=== PATIENT | female | born 1965 | race Two or more races ===

== ENCOUNTER → 2020-09-21 08:38 | Outpatient (REF) | payer MEDICAID, SELFPAY | LOC: HO.CARD 08:38 | PROVIDERS: Visit Provider Internal Medicine Cardiovascular Disease | DX: Z13.89 Encounter for screening for other disorder (principal) ==

== ENCOUNTER → 2020-09-24 09:42 | Outpatient (REF) | payer MEDICAID, SELFPAY ==
--- NOTE | 2020-09-24 | NM_ITS ---
Myocardial perfusion study Indication: Dyspnea on exertion to evaluate for myocardial ischemia Technique: The patient was brought in for a Lexiscan perfusion study on 09/24/2020. Patient performed low-level exercise and was injected 0.4 mg of Lexiscan intravenously. Within a minute of injection, 25 mCi of sestamibi was given intravenously. Images were obtained using the SPECT gamma camera interlaced with the gating device. Images were obtained in supine position. Resting perfusion study was performed on 09/25/2020. Patient was administered 25 mCi of sestamibi intravenously at rest. Images were then obtained in supine position. Images obtained with and without CT attenuation. Total 68 MGY-CM. Images were processed with the software and compared side to side in short axis, horizontal long axis and vertical long axis views. Findings: The stress perfusion study showed non attenuated images show normal uptake of radiotracer in all segments of LV myocardium. Attenuation corrected images show minimally reduced uptake in the lateral wall of the LV myocardium.. The gated study shows normal LV systolic function with calculated LVEF of greater than 70 %. LV cavity is normal in size. The gated study shows normal systolic wall thickening and contraction of segments. Resting study shows non attenuated images show normal uptake of radiotracer in all segments of LV myocardium. Gating at rest reveals normal systolic wall motion with ejection fraction at 63%. The findings are consistent with normal myocardial perfusion. NM/NM ricardo perf SPECT rest & str Impression: 1. Myocardial perfusion imaging study shows normal myocardial perfusion 2. Gated LVEF is 63% 3. Transient ischemic dilatation not present EKG is nondiagnostic for ischemia
--- NOTE | 2020-09-24 10:00 | CA_ITS ---
Acquisition Time: 2020-09-24 09:55:53 Total Exercise Time: 00:02:00 Test Indications: Dyspnea Medications: SEE H Protocol: LEXISCAN Max HR: 136 BPM 83% of Pred: 163 BPM Max BP: 108/062 mmHG Max Work Load: 1.0 METS Pharmacological stress test using Lexiscan while sitting and kicking her L foot. Pt tolerated well. Denies any anginal sx. Non-diagnostic for ischemia. Nuclear images to follow. HR up after Lexiscan pt's HR stayed above 120, reversed with Aminophyline 75 mg IV. Normotensiver esponse to test. Test reviewed with Dr. Ferrell Referred By: Vitaliy oYo Overread By: Gaurav Acevedo
== END ==
LOC: HO.CARD 09:42
PROVIDERS: Visit Provider Internal Medicine Cardiovascular Disease
DX: R06.09 Other forms of dyspnea (principal)
CPT/HCPCS: 78452; 93017; A9500; J0280; J2785

== ENCOUNTER 2020-10-12 08:00 | Outpatient (RCR) | payer MEDICAID, SELFPAY | END 2020-11-28 09:59 | disposition other institution (70) | LOC: HO.PT 08:00 | PROVIDERS: PCP Internal Medicine; Visit Provider Internal Medicine | DX: M54.42 Lumbago with sciatica, left side (principal) | CPT/HCPCS: 97110; 97162 ==

== ENCOUNTER 2020-10-15 08:11 | Outpatient (REF) | payer MEDICAID, SELFPAY | END 2020-10-15 08:12 | disposition home or self-care (01) | LOC: HO.LAB 08:11 | PROVIDERS: PCP Internal Medicine; Visit Provider Internal Medicine | DX: Z20.828 Contact with and (suspected) exposure to other viral communicable diseases (principal) | CPT/HCPCS: C9803; U0003 ==

== ENCOUNTER → 2020-10-18 09:51 | Outpatient (BNVA) | payer MEDICAID, SELFPAY | PROVIDERS: PCP Internal Medicine; Visit Provider Nurse Practitioner | DX: Z76.89 Persons encountering health services in other specified circumstances (principal) ==

== ENCOUNTER 2020-10-25 06:57 | Outpatient (REF) | payer MEDICAID, SELFPAY | END 2020-10-25 06:58 | disposition home or self-care (01) | LOC: HO.LAB 06:57 | PROVIDERS: PCP Internal Medicine; Visit Provider Internal Medicine | DX: Z20.828 Contact with and (suspected) exposure to other viral communicable diseases (principal) | CPT/HCPCS: C9803; U0003 ==

== ENCOUNTER 2020-10-31 12:57 | Outpatient (REF) | payer MEDICAID, SELFPAY ==
--- NOTE | 2020-10-31 13:01 | MM_ITS ---
EXAMINATION: MM SCREENING DIGITAL BREAST TOMOSYNTHESIS, BILATERAL CLINICAL INFORMATION: Screening. Asymptomatic. Family history breast cancer, sister. Personal history right breast cancer with lumpectomy and radiation 2009. COMPARISON: Mammography: 09/06/2019, 08/30/2018, 08/05/2017 TECHNIQUE: Digital breast tomosynthesis is performed in both the craniocaudal and mediolateral oblique views along with computer-aided detection (CAD). Synthesized 2D images are generated from the tomosynthesis. Additional left MLO view is provided. FINDINGS: The breasts are heterogeneously dense, which may obscure small masses (ACR BI-RADS breast composition Category c). Parenchymal pattern is similar to prior exams. There is no developing density or interval mass or architectural abnormality. Post therapy changes again noted on the right with reduced breast size and old scarring and surgical clips. There are no significant changes in either breast. MM/MM tomosynthesis screening BI IMPRESSION: No mammographic evidence of malignancy. Post therapy changes right breast similar to prior studies. ASSESSMENT: BI-RADS 2: Benign RECOMMENDATION: Routine annual mammography screening. This patient's information was entered into a reminder system with a target due date for their next mammogram.
== END 2020-10-31 12:58 | disposition home or self-care (01) ==
LOC: HO.MAMMO 12:57
PROVIDERS: PCP Internal Medicine; Visit Provider Internal Medicine
DX: Z12.31 Encounter for screening mammogram for malignant neoplasm of breast (principal)
CPT/HCPCS: 77063; 77067

== ENCOUNTER → 2020-11-01 13:39 | Outpatient (BNVA) | payer MEDICAID, SELFPAY | PROVIDERS: PCP Internal Medicine; Visit Provider Nurse Practitioner | DX: Z76.89 Persons encountering health services in other specified circumstances (principal) ==

== ENCOUNTER 2020-11-07 07:02 | Outpatient (REF) | payer MEDICAID, SELFPAY | END 2020-11-07 07:03 | disposition home or self-care (01) | LOC: HO.LAB 07:02 | PROVIDERS: Visit Provider Internal Medicine | DX: Z20.828 Contact with and (suspected) exposure to other viral communicable diseases (principal) | CPT/HCPCS: 36415; C9803; U0003 ==

== ENCOUNTER → 2020-11-08 14:00 | Outpatient (BNVA) | payer MEDICAID, SELFPAY | PROVIDERS: PCP Internal Medicine; Visit Provider Student in an Organized Health Care Education/Training Program | DX: Z76.89 Persons encountering health services in other specified circumstances (principal) ==

== ENCOUNTER → 2020-11-15 14:32 | Outpatient (REF) | payer MEDICAID, SELFPAY ==
--- NOTE | 2020-11-15 15:00 | CA_ITS ---
Transthoracic Echocardiogram Patient (Last, First, Middle): Diana Myles, Gender: Female Date of : 1965 Age: 55 Procedure Date: 11/15/2020 Procedure Type: Transthoracic Echocardiogram Location: OP Height: 157.48 cm Weight: 54.43 kg BSA: 1.54 m2 Heart Rate: bpm BP: 130 / 70 mmHg Occupational Therapy Professor: GERMAN Bridges MD: Vitaliy Yoo MD Heating And Ventilating Tender: Brandon Parkinson MD Symptoms: I42.9 CARDIOMYOPATHY Study Quality: Fair/Contrast ECG Rhythm: Sinus Conclusions: - Low normal LV systolic function Findings Procedure Information Contrast agent, definity, is being given per protocol without apparent complications. Left Ventricle Normal left ventricular cavity size. There is normal left ventricular wall thickness. The left ventricular systolic function is low normal. The visually estimated ejection fraction is between 50-55%. Pericardium/Pleural There is no evidence of pericardial effusion. Prior Study Comparison No prior study available for comparison. Measurements 2D Linear Measurements IVSd: 0.72 0.6-0.9/0.6-1.0 cm LVIDd: 4.03 3.9-5.3/4.2-5.9 cm LVIDd Index: 2.62 2.4-3.2/2.2-3.1 cm/m2 LVIDs: 2.95 2.0-3.6 cm LVPWd: 0.72 0.7-1.1 cm LV Mass: 102.52 67-162/88-224 g LV Mass Index: 66.57 43-95/49-115 g/m2 2D Systolic Function EF 4C: 45.00 >55% EF 2C: 55.90 >55% EF BiP: 51.20 >55% Updated in Other Vendor System with Status of Final Brandon Parkinson MD electronically signed on 11/16/2020 12:47:18 PM with status of Final
== END ==
LOC: HO.CARD 14:32
PROVIDERS: Visit Provider Internal Medicine Cardiovascular Disease
DX: I42.9 Cardiomyopathy, unspecified (principal)
CPT/HCPCS: 93308; Q9957

== ENCOUNTER → 2020-12-13 13:16 | Outpatient (BNVA) | payer MEDICAID, SELFPAY | PROVIDERS: PCP Internal Medicine; Visit Provider Nurse Practitioner ==

== ENCOUNTER 2020-12-21 14:17 | Outpatient (REF) | payer MEDICAID, SELFPAY | END 2020-12-21 14:18 | disposition home or self-care (01) | LOC: HO.LAB 14:17 | PROVIDERS: PCP Internal Medicine; Visit Provider Internal Medicine | DX: Z20.822 Contact with and (suspected) exposure to COVID-19 (principal) | CPT/HCPCS: 36415; C9803; U0003; U0005 ==

== ENCOUNTER 2020-12-22 09:44 | Emergency (ER) | payer MEDICAID, SELFPAY ==
[2020-12-22 09:46] VITALS: BP 115/54; PULSE 90; RESP 18; TEMP 36.7; O2SAT 99; BMI 21.9
--- NOTE | 2020-12-22 10:34 | ED_ITS ---
HPI - General Adult General Chief complaint: Headache Stated complaint: HEAD ACHE NECK PAIN Time Seen by Provider: 12/22/20 10:31 Source: patient Mode of arrival: ambulatory Limitations: no limitations History of Present Illness HPI narrative: This is a pleasant primarily Citizen Of [place]-speaking 55-year-old female with past medical history that is significant for osteoarthritis of the right hand and fibromyalgia with also history of breast mass status post lumpectomy on the right side additionally Cesarian section, colonoscopy and shoulder surgery she presents ambulatory with complaint of left-sided neck pain for past 5 days onset after awakening feeling sore on the side and has persisted worsening with position now radiates up to the head and ear. Pain okay with immobilization however movement hurts. Denies any fever or chills. No rash. No chest pain. No radiation to the arms. No chest pain/ back pain. No GI symptoms. Related Data Home Medications Medication Instructions Recorded Confirmed albuterol sulfate 90 mcg/actuation 2 puff INHALATION Q6H PRN 11/08/20 12/25/20 aerosol inhaler buspirone 15 mg tablet 15 mg PO TID 11/08/20 12/25/20 cholecalciferol (vitamin D3) 50 50 mcg PO DAILY 11/08/20 12/25/20 mcg (2,000 unit) capsule clonazepam 1 mg tablet 1 mg PO BEDTIME 11/08/20 12/25/20 olanzapine 20 mg tablet 20 mg PO BEDTIME 11/08/20 12/25/20 prazosin 2 mg capsule 2 mg PO BEDTIME 11/08/20 12/25/20 sertraline 100 mg tablet 100 mg PO DAILY 11/08/20 12/25/20 Previous Rx's Medication Instructions Recorded dicyclomine 20 mg tablet 20 mg PO QID 30 Days #120 tab 10/18/20 simethicone 180 mg capsule 180 mg PO QID 30 Days #120 cap 10/18/20 pregabalin 150 mg capsule 150 mg PO BID #60 cap 11/08/20 imipramine HCl 25 mg tablet 25 mg PO BEDTIME 30 Days #30 tab 12/13/20 omeprazole 20 mg capsule,delayed 20 mg PO BID #30 cap 12/13/20 release sennosides 8.6 mg tablet 17.2 mg PO BEDTIME #60 tab 12/13/20 lidocaine 1 patch TOPICAL Q24H PRN #15 ea 12/22/20 naproxen 500 mg PO BID PRN #14 tab 12/22/20 Allergies Allergy/AdvReac Type Severity Reaction Status Date / Time codeine [CODEINE] Allergy Intermediate DIZZY/NAUSEA, Verified 12/13/20 13:18 nausea/vomiting escitalopram [From LEXAPRO] Allergy Intermediate ? NAUSEA Verified 12/13/20 13:18 meperidine [MEPERIDINE] Allergy Intermediate NAUSEA Verified 12/13/20 13:18 morphine [MORPHINE] Allergy Intermediate PALPITATIONS, Verified 12/13/20 13:18 palpitation oxycodone [OXYCODONE] Allergy Intermediate PALPATATIONS, Verified 12/13/20 13:18 palpitations tramadol Allergy Unknown dizziness, Verified 12/13/20 13:18 nausea From ULTRAM AdvReac Intermediate DIZZY/NAUSE Uncoded 07/19/20 16:54 A Review of Systems Review of Systems: Constitutional: No Weight loss, No Fever, No Chills, No Night Sweats, No Fatigue, No Malaise ENT/Mouth: No Hearing loss, No Ear Pain, No Nasal Congestion, No Sinus Pain, No Hoarseness, No sore throat, No Rhinorrhea, No Swallowing Difficulty Eyes: No Eye Pain, No Swelling, No Redness, No Foreign Body, No Discharge, No Vision Changes Cardiovascular: No Chest Pain, No SOB, No Dyspnea on Exertion, No Orthopnea, No Edema, No Palpitations Respiratory: No Cough, No Sputum, No Wheezing, No Smoke Exposure, No Dyspnea Gastrointestinal: No Nausea, No Vomiting, No Diarrhea, No Constipation, No abdominal Pain, No Hematochezia, No Melena Genitourinary: No Dysuria, No Urinary Frequency, No Hematuria, No Urinary Incontinence, No Urgency, No Flank Pain, No Urinary Flow Changes, No Hesitancy Musculoskeletal: No joint pain, No Myalgias, No Joint Swelling, left-sided neck pain as noted per HPI Skin: No Skin Lesions, No rash Neuro: No Weakness, No Numbness, No Paresthesias, No Loss of Consciousness, No Dizziness, No Headache Psych: No Social Issues Heme/Lymph: No Bruising, No Bleeding,No Lymphadenopathy Endocrine: No Polyuria, No Polydipsia, No Temperature Intolerance Yes all other systems are reviewed and are negative PMFSH Past Medical History Medical History Fibromyalgia Periodontal disease Primary osteoarthritis of right hand Surgical History History of lumpectomy Hx of section Hx of colonoscopy Hx of shoulder surgery Family History Family History Mother HTN (hypertension) Sister Breast cancer Bone cancer Colon polyps Sister Osteoporosis Hypercholesteremia Colon polyps Social History Social History (Updated 12/25/20 @ 13:18 by Vero Marie) Alcohol intake: never Smoking Status: Never smoker Tobacco Type: Cigarette Years Smoked: 3 Physical Exam Vital Signs: Vital Signs: Last Vital Signs Temp 98.1 F 12/22/20 09:46 Pulse 90 12/22/20 09:46 Resp 18 12/22/20 09:46 BP 115/54 L 12/22/20 09:46 Pulse Ox 99 12/22/20 09:46 Body Mass Index 21.9 Reviewed Const: General: cooperative and healthy appearing; No acute distress or intoxicated appearing Nutritional Appearance: average body habitus Orientation/consciousness: patient oriented x3 HENMT: Head: Yes normal to inspection Ears: hearing grossly normal bilaterally Eyes: General: appearance normal, both eyes and all related structures Visual Norris: normal visual norris by confrontation Neck: Neck: Yes normal visual inspection, No no meningeal signs, Yes trachea midline, Yes supple, No lymphadenopathy, No positive Brudzinski's sign, No positive Kernig's sign, Yes torticollis (Left side, reproducible to palpation diffusely over the cervical region.), No tracheal deviation, No tracheostomy present and Yes no JVD Thyroid: Thyroid normal Chest: Chest palpation & inspection: normal inspection of the chest Resp: Effort & Inspection: normal respiratory effort Auscultation: clear to auscultation bilaterally Cardio: Jugular venous distension: no JVD Rhythm: regular rhythm Heart sounds: S1 normal heart sound present and S2 normal heart sound present GI: Inspection: Yes normal to inspection Palpation (GI): Firmness to palp ation present (GI) Percussion: Yes normal to percussion Auscultation: normal bowel sounds : General: Yes no CVA tenderness Back/Spine/Pelvis: Back: no CVA tenderness Skin: General skin exam: no rashes or lesions noted Neuro: General: patient oriented x3 and No no meningeal signs Extrem: General: Yes normal to inspection Medical Decision Making MDM Narrative Medical decision making narrative: AP exam consistent with left-sided torticollis exam otherwise is without focal neurological findings. No midline or step-off. Will discharge home with short course lidocaine and naproxen she is already on Flexeril 5 mg daily advised okay take 10 mg at night only for the next 5 days. Will do warm compresses. Could return follow-up instructions provided. Feels comfortable plan. Stable for discharge. Discharge Plan Discharge Clinical Impression: Acute torticollis Patient Disposition: Home, Self-Care Instructions: Spasmodic Torticollis (ED) Additional Instructions: Warm compresses Gentle stretching Take medication as prescribed Follow-up as instructed Return if any concerns or worsening symptoms Thank you [employer]res[place] calientes Estiramiento suave [place] los medicamentos seg?n lo prescrito Seguimiento seg?n las instrucciones Regrese si tiene alguna inquietud o si los s?ntomas empeoran [place] Prescriptions: New naproxen 500 mg tablet 500 mg PO BID PRN (Reason: pain) Qty: 14 RF: 0 lidocaine 4 % adhesive patch,medicated 1 patch topical Q24H PRN (Reason: pain) Qty: 15 RF: 0 No Action sennosides [senna] 8.6 mg tablet 17.2 mg PO BEDTIME Qty: 60 RF: 6 imipramine HCl 25 mg tablet 25 mg PO BEDTIME 30 Days Qty: 30 RF: 3 omeprazole 20 mg capsule,delayed release(DR/EC) 20 mg PO BID Qty: 30 RF: 3 buspirone 15 mg tablet 15 mg PO TID RF: 0 sertraline 100 mg tablet 100 mg PO DAILY RF: 0 olanzapine 20 mg tablet 20 mg PO BEDTIME RF: 0 cholecalciferol (vitamin D3) 50 mcg (2,000 unit) capsule 50 mcg PO DAILY RF: 0 clonazepam 1 mg tablet 1 mg PO BEDTIME RF: 0 prazosin 2 mg capsule 2 mg PO BEDTIME RF: 0 albuterol sulfate 90 mcg/actuation HFA aerosol inhaler 2 puff inhalation Q6H PRN (Reason: Wheezing) RF: 0 pregabalin [Lyrica] 150 mg capsule 150 mg PO BID Qty: 60 RF: 5 dicyclomine 20 mg tablet 20 mg PO QID 30 Days Qty: 120 RF: 3 simethicone 180 mg capsule 180 mg PO QID 30 Days Qty: 120 RF: 3 Referrals: Umm Coley MD [Primary Care Provider] - 1 week Interventions: ED Discharge Assessment Last Done: 12/22/20 11:37 Discharge Date/Time: 12/22/20 11:38
[2020-12-22] MEDS: Lidocaine 4 % Patch ADH..PATCH 1 PATCH TRANSDERMA (10:40)
[2020-12-22] MEDS: Ketorolac Tromethamine 30 MG/ML VIAL IM (10:40)
== END 2020-12-22 11:38 | disposition home or self-care (01) ==
PROVIDERS: Emergency Provider Emergency Medicine; PCP Internal Medicine
DX: G24.3 Spasmodic torticollis (principal)
CPT/HCPCS: 96372; 99283; 99284; J1885

== ENCOUNTER 2020-12-26 07:55 | Outpatient (REF) | payer MEDICAID, SELFPAY ==
--- NOTE | ~2020-12-26 | US_ITS ---
EXAMINATION: US ABDOMEN COMPLETE CLINICAL INFORMATION: Right upper quadrant pain. COMPARISON: CT of the abdomen and pelvis May 2016 and abdominal ultrasound August 2015 TECHNIQUE: Real-time imaging of the abdominal viscera. FINDINGS: PANCREAS: Normal. ABDOMINAL AORTA: The proximal, mid, and distal segments are normal in caliber. INFERIOR VENA CAVA: Visualized portions are normal. LIVER: Liver echotexture is increased. The liver is normal in size. The liver contour is normal. No focal hepatic lesion. There is no intrahepatic biliary duct dilatation seen. GALLBLADDER: Normal. The gallbladder is physiologically distended without evidence of stones, sludge, polyps, wall thickening or pericholecystic fluid. COMMON BILE DUCT: Normal in caliber measuring 0.3 cm in diameter. RIGHT KIDNEY: Normal. No hydronephrosis. No renal calculi or focal parenchymal lesions. The kidney measures 10.2 cm in maximum dimension. LEFT KIDNEY: Normal. No hydronephrosis. No renal calculi or focal parenchymal lesions. The kidney measures 9.1 cm in maximum dimension. SPLEEN: Normal. The spleen measures 9.4 cm in maximum dimension. FREE FLUID: None. US/US abdomen complete IMPRESSION: Echogenic liver probably representing fatty infiltration.
== END 2020-12-26 07:56 | disposition home or self-care (01) ==
LOC: HO.US 07:55
PROVIDERS: PCP Internal Medicine; Visit Provider Nurse Practitioner
DX: R10.11 Right upper quadrant pain (principal)
CPT/HCPCS: 76700

== ENCOUNTER → 2021-01-14 09:40 | Outpatient (BNVA) | payer MEDICAID, SELFPAY | PROVIDERS: PCP Internal Medicine; Visit Provider Nurse Practitioner | DX: K21.9 Gastro-esophageal reflux disease without esophagitis (principal); K58.2 Mixed irritable bowel syndrome; R10.11 Right upper quadrant pain; R14.0 Abdominal distension (gaseous) | CPT/HCPCS: 99212; Q3014 ==

== ENCOUNTER 2021-01-23 09:01 | Outpatient (REF) | payer MEDICAID, SELFPAY ==
--- NOTE | ~2021-01-23 | XR_ITS ---
EXAMINATION: XR CHEST CLINICAL INFORMATION: Dyspnea COMPARISON: Previous chest x-ray November 2019 TECHNIQUE: 2 views of the chest were obtained. FINDINGS: The cardiac and mediastinal contours are normal. The lungs are clear. There is no pleural effusion or pneumothorax. There are surgical clips in the right breast and axilla. Bony structures are unremarkable. XR/XR chest 2V IMPRESSION: No evidence for acute disease in the chest.
== END 2021-01-23 09:02 | disposition home or self-care (01) ==
LOC: HO.XRAY 09:01
PROVIDERS: PCP Internal Medicine; Visit Provider Internal Medicine Pulmonary Disease
DX: R06.00 Dyspnea, unspecified (principal); Z91.09 Other allergy status, other than to drugs and biological substances; Z92.3 Personal history of irradiation
CPT/HCPCS: 71046; 99202

== ENCOUNTER 2021-01-30 08:54 | Outpatient (REF) | payer MEDICAID, SELFPAY ==
--- NOTE | ~2021-01-30 | CT_ITS ---
EXAMINATION: CT CHEST WITHOUT CONTRAST CLINICAL INFORMATION: History of radiation COMPARISON: Previous chest CT October 2009 and chest x-rays most recent 01/23/2021 TECHNIQUE: Multidetector volumetric CT imaging of the chest was done. Axial MIP volume rendering provided. Sagittal and coronal reformatted images were obtained. This CT examination was performed using dose optimization techniques as appropriate, variously including the following: *Automated exposure control *Adjustment of mA and/or kV according to patient size (this includes techniques or standardized protocols for targeted exams where dose is matched to indication/reason for exam; i.e. extremities or head) *Use of iterative reconstruction technique DLP: 169 mGy-cm FINDINGS: LUNGS: There is a small 2 mm peripheral right upper lobe nodule axial image 95 series or. The lungs are otherwise clear. This is not definitely identified on 2009 exam however only 2.5 mm thickness slices are available. This possible this is seen on image 27. No evidence of interstitial lung disease, emphysema or bronchiectasis is seen. MEDIASTINUM: There is a small right subcarinal calcification probably representing a small calcified lymph node. This is unchanged. No enlarged lymph nodes are seen. The mediastinum is otherwise normal. PLEURA: There is no pleural effusion. No pleural mass or thickening. AXILLA: There are surgical clips in the right axilla and inferior medial right breast. No chest wall mass or enlarged axillary lymph nodes are seen. UPPER ABDOMEN: There are small calcifications in the spleen probably related to old granulomatous disease. OSSEOUS STRUCTURES: Unremarkable. CT/CT chest wo con IMPRESSION: Small 2 mm right upper lobe nodule. Evidence of old granulomatous disease with calcified right subcarinal lymph node and small calcifications in the spleen. Postsurgical changes to the right breast and axilla.
--- NOTE | 2021-01-30 09:50 | PFT_ITS ---
FLOWS: FEV1 of 97% of predicted at 2.33 L. FVC 88% of predicted at 2.68 L. FEV1 to FVC ratio of 0.87. No bronchodilator response. LUNG VOLUMES: Total lung capacity 84% of predicted at 4.03 L. Residual volume 71% of predicted at 1.33 L. Slow vital capacity 93% of predicted at 2.70 L. Expiratory reserve volume 94% of predicted at 0.77 L. Diffusion capacity is mildly decreased. IMPRESSION: No obstructive or restrictive ventilatory defect. No bronchodilator response. An isolated defect in diffusion capacity suggests an underlying pulmonary parenchymal or vascular disease. Clinical correlation is advised. MD GREG Canseco/MODL / [id number]
== END 2021-01-30 08:55 | disposition home or self-care (01) ==
LOC: HO.RESP 08:54
PROVIDERS: PCP Internal Medicine; Visit Provider Internal Medicine Pulmonary Disease
DX: R06.00 Dyspnea, unspecified (principal); Z92.3 Personal history of irradiation
CPT/HCPCS: 71250; 94060; 94727; 94729

== ENCOUNTER 2021-01-30 08:56 | Outpatient (REF) | payer MEDICAID, SELFPAY | END 2021-01-30 08:57 | disposition home or self-care (01) | LOC: HO.CT 08:56 | PROVIDERS: PCP Internal Medicine; Visit Provider Internal Medicine Pulmonary Disease | DX: Z13.89 Encounter for screening for other disorder (principal) ==

== ENCOUNTER → 2021-02-07 09:07 | Outpatient (BNVA) | payer MEDICAID, SELFPAY | PROVIDERS: PCP Internal Medicine; Visit Provider Internal Medicine Pulmonary Disease | DX: R06.00 Dyspnea, unspecified (principal); J70.1 Chronic and other pulmonary manifestations due to radiation; Z92.3 Personal history of irradiation | CPT/HCPCS: 99212 ==

== ENCOUNTER 2021-02-09 08:19 | Emergency (ER) | payer MEDICAID, SELFPAY ==
--- NOTE | ~2021-02-09 | CT_ITS ---
EXAMINATION: CT HEAD WITHOUT CONTRAST CT CERVICAL SPINE WITHOUT CONTRAST CLINICAL INFORMATION: Reason for Exam Fall with LOC, headache, rule out fracture, bleed COMPARISON: CT of the head done on 11/06/2019 and 11/23/2019. CT of the cervical spine done on 11/06/2019. TECHNIQUE: Imaging was performed from the skull base to vertex without intravenous administration of contrast. In addition, helical noncontrast CT imaging was acquired through the cervical spine and source images were reviewed along with axial reconstructions and sagittal and coronal MPRs. This CT examination was performed using dose optimization techniques as appropriate, variously including the following: *Automated exposure control. *Adjustment of mA and/or kV according to patient size (this includes techniques or standardized protocols for targeted exams where dose is matched to indication/reason for exam; i.e. extremities or head). *Use of iterative reconstruction technique. Total exam dose-length product 890.0 mGy-cm FINDINGS: HEAD: No intracranial mass, hemorrhage, or midline shift is visualized. The ventricles and sulci are age-appropriate. No extra-axial collections are identified. The paranasal sinuses and mastoid air cells are well aerated. No significant change since most recent prior study dated 11/23/2019. CERVICAL SPINE: Loss of normal cervical lordosis is present which could be positional. There is no evidence of acute cervical spine fracture. Vertebral bodies remain normal in height, intervertebral disc spaces are preserved, and alignment is anatomic. No prevertebral or paravertebral soft tissue abnormality is identified. Limited assessment of the lung apices is unremarkable. CT/CT cervical spine wo con IMPRESSION: 1. No acute intracranial pathology. 2. No CT evidence of acute cervical spine fracture or traumatic subluxation.
--- NOTE | 2021-02-09 09:06 | ED.GENADULT ---
HPI - General Adult General Chief complaint: Fall Stated complaint: fall Time Seen by Provider: 02/09/21 08:32 Source: patient Mode of arrival: ambulatory Limitations: no limitations History of Present Illness HPI narrative: 56-year-old female who presents emergency department for evaluation of headache. Patient states that on January 31, 2021 she walked into her kitchen and did not feel well. She then walked back to her room and on the way to her bedroom she felt lightheaded and then lost consciousness. She states that she fell forward and struck her head on the floor and struck her right knee on the floor as well. She is uncertain how long she lost consciousness for but when she woke up, she did develop a black eye to her right eye and a bruise to her right knee. She states since the fall she has had a constant headache. She describes the headache as a constant, pressure-like sensation throughout her entire head, associated with weakness, dizziness and nausea. She states that she has been taking Tylenol with no change in her headache. She is also complaining of neck pain. She states that the dizziness is worse with position change in the dizziness as a room spinning off balance like sensation. Patient states that she falls frequently. She denied fever, chills, chest pain, shortness of breath, cough, abdominal pain, extremity weakness or loss of bowel or bladder control. Patient states that she had a COVID-19 infection in October of 2020 and she completed her 2nd dose of the med during a vaccine on 02/06/2021. Related Data Home Medications Medication Instructions Recorded Confirmed albuterol sulfate 90 mcg/actuation 2 puff INHALATION Q6H PRN 11/08/20 12/25/20 aerosol inhaler buspirone 15 mg tablet 15 mg PO TID 11/08/20 12/25/20 cholecalciferol (vitamin D3) 50 50 mcg PO DAILY 11/08/20 12/25/20 mcg (2,000 unit) capsule clonazepam 1 mg tablet 1 mg PO BEDTIME 11/08/20 12/25/20 olanzapine 20 mg tablet 20 mg PO BEDTIME 11/08/20 12/25/20 prazosin 2 mg capsule 2 mg PO BEDTIME 11/08/20 12/25/20 sertraline 100 mg tablet 100 mg PO DAILY 11/08/20 12/25/20 Previous Rx's Medication Instructions Recorded pregabalin 150 mg capsule 150 mg PO BID #60 cap 11/08/20 omeprazole 20 mg capsule,delayed 20 mg PO BID #30 cap 12/13/20 release sennosides 8.6 mg tablet 17.2 mg PO BEDTIME #60 tab 12/13/20 lidocaine 1 patch TOPICAL Q24H PRN #15 ea 12/22/20 naproxen 500 mg PO BID PRN #14 tab 12/22/20 dicyclomine 20 mg tablet 40 mg PO QID 30 Days #240 tab 01/14/21 metronidazole 500 mg tablet 500 mg PO TID 10 Days #30 tab 01/14/21 simethicone 180 mg capsule 180 mg PO QID 30 Days #120 cap 01/14/21 cyclobenzaprine 10 mg PO TID PRN #20 tab 02/09/21 Allergies Allergy/AdvReac Type Severity Reaction Status Date / Time codeine [CODEINE] Allergy Intermediate DIZZY/NAUSEA, Verified 02/07/21 09:15 nausea/vomiting escitalopram [From LEXAPRO] Allergy Intermediate ? NAUSEA Verified 02/07/21 09:15 meperidine [MEPERIDINE] Allergy Intermediate NAUSEA Verified 02/07/21 09:15 morphine [MORPHINE] Allergy Intermediate PALPITATIONS, Verified 02/07/21 09:15 palpitation oxycodone [OXYCODONE] Allergy Intermediate PALPATATIONS, Verified 02/07/21 09:15 palpitations tramadol Allergy Unknown dizziness, Verified 02/07/21 09:15 nausea Review of Systems Review of Systems: Yes all other systems are reviewed and are negative PMFSH Past Medical History Medical History (Updated 02/09/21 @ 10:54 by Demond Queen MD) Anxiety Fibromyalgia Periodontal disease Primary osteoarthritis of right hand Surgical History History of lumpectomy Hx of section Hx of colonoscopy Hx of shoulder surgery Family History Family History Mother HTN (hypertension) Sister Breast cancer Bone cancer Colon polyps Sister Osteoporosis Hypercholesteremia Colon polyps Social History Social History Alcohol intake: never Smoking Status: Never smoker Years Smoked: 3 Advance Directives: No Advance Directives Information Provided: No Physical Exam Vital Signs: Vital Signs: Last Vital Signs Temp 98 F 02/09/21 10:44 Pulse 79 02/09/21 10:44 Resp 18 02/09/21 10:44 BP 115/66 02/09/21 10:44 Pulse Ox 98 02/09/21 10:44 Body Mass Index 22.4 Const: General: cooperative and healthy appearing Orientation/consciousness: oriented to person and oriented to place Limitations: no limitations HENMT: Head: Yes normal to inspection, Yes normocephalic and Yes atraumatic (Diffuse tenderness with palpation of her scalp, no hematomas) Ears: external ears normal General nose exam: Normal external nose present Face and sinus: Yes normal facial exam Mouth: Normal oral and palatal mucosa present Throat: Yes posterior oropharynx normal Eyes: Periorbital: periorbital findings normal Eyelids: Yes eyelids normal Conjunctivae: conjunctivae normal Sclerae: sclerae normal Corneas: corneas normal Pupils: Equal, round and reactive pupils present Direct Ophthalmoscopy: normal light reflex Neck: Other: C-spine tenderness Neck: Yes full ROM, Yes no lymphadenopathy, Yes no meningeal signs, Yes trachea midline and Yes supple Chest: Chest palpation & inspection: normal inspection of the chest and normal palpation of entire chest wall Resp: Effort & Inspection: normal respiratory effort and able to speak in complete sentences Auscultation: clear to auscultation bilaterally Cardio: Rate: regular rate Rhythm: regular rhythm Heart sounds: S1 normal heart sound present, S2 normal heart sound present and no murmurs GI: Inspection: Yes normal to inspection Palpation (GI): Soft to palpation, nontender, no guarding, not rigid and No hepatosplenomegaly present : General: Yes no CVA tenderness Back/Spine/Pelvis: Back: no CVA tenderness Cervical Spine: normal cervical lordosis Thoracic/Lumbar Spine: thoracic and lumbar spine normal to inspection Skin: Lesions: no lesions Rashes: no rashes Wounds: no wounds Neuro: General: oriented to person, oriented to place and no meningeal signs Cranial nerves: Yes CN's II-XII intact bilaterally and Yes Equal, round and reactive pupils present Cognition (Neuro): normal cognition Motor exam (neuro): 5/5 motor strength present throughout Extrem: General: Yes normal to inspection and Yes full ROM Psych: Appearance: well kempt Mental Status: mental status grossly normal Speech and movement: Normal speech and movement present Affect: normal affect Attitude: cooperative Thought process: Normal thought process present Thought content: Normal thought content present Course Course Course Narrative: 56-year-old female who presents emergency department for evaluation of a constant headache and neck pain after a fall that occurred on 01/31/2021. Examination did reveal tenderness with palpation of her scalp as well as tenderness with palpation of her C-spine otherwise her exam was unremarkable. I did order a CT scan of the patient's head and neck to rule out fracture and bleed as the cause for symptoms. 1050: The patient's CT scan of the head and cervical spine revealed no acute fracture or bleed. Patient's symptoms are consistent with a postconcussion syndrome. The patient was advised to take Tylenol and ibuprofen for pain. She was given a prescription for Flexeril (cyclobenzaprine) for neck pain and spasm. She was given verbal and printed instructions and discharged home. Discharge Plan Discharge Clinical Impression: Closed head injury with loss of consciousness of unknown duration, Injury of neck, Fall Patient Disposition: Home, Self-Care Instructions: Cervical Sprain (ED), Post Concussion Syndrome (ED) Additional Instructions: The CT scan of your head and neck revealed no fracture or bleed which is reassuring. The symptoms that your experiencing are caused by your head injury, this is called postconcussion syndrome. The symptoms can sometimes last weeks to months after a head injury were you have lost consciousness. Take ibuprofen 200 mg pills, 3 pills every 6 hours as needed for pain. Take Tylenol (acetaminophen) 500 mg pills, 2 pills every 6 hours as needed for pain. Take Flexeril (cyclobenzaprine) 10 mg pills, 1 pill every 6 hours as needed for pain or spasm of your head and neck. Follow-up with your doctor in 2 days. Please return to the emergency department if your symptoms get worse or if you develop any symptoms that are concerning to you. Prescriptions: New cyclobenzaprine 10 mg tablet 10 mg PO TID PRN (Reason: muscle pain or spasm) Qty: 20 RF: 0 No Action naproxen 500 mg tablet 500 mg PO BID PRN (Reason: pain) Qty: 14 RF: 0 lidocaine 4 % adhesive patch,medicated 1 patch topical Q24H PRN (Reason: pain) Qty: 15 RF: 0 sennosides [senna] 8.6 mg tablet 17.2 mg PO BEDTIME Qty: 60 RF: 6 omeprazole 20 mg capsule,delayed release(DR/EC) 20 mg PO BID Qty: 30 RF: 3 buspirone 15 mg tablet 15 mg PO TID RF: 0 sertraline 100 mg tablet 100 mg PO DAILY RF: 0 olanzapine 20 mg tablet 20 mg PO BEDTIME RF: 0 cholecalciferol (vitamin D3) 50 mcg (2,000 unit) capsule 50 mcg PO DAILY RF: 0 clonazepam 1 mg tablet 1 mg PO BEDTIME RF: 0 prazosin 2 mg capsule 2 mg PO BEDTIME RF: 0 albuterol sulfate 90 mcg/actuation HFA aerosol inhaler 2 puff inhalation Q6H PRN (Reason: Wheezing) RF: 0 pregabalin [Lyrica] 150 mg capsule 150 mg PO BID Qty: 60 RF: 5 dicyclomine 20 mg tablet 40 mg PO QID 30 Days Qty: 240 RF: 3 simethicone 180 mg capsule 180 mg PO QID 30 Days Qty: 120 RF: 6 metronidazole [Flagyl] 500 mg tablet 500 mg PO TID 10 Days Qty: 30 RF: 0
[2021-02-09 10:44] VITALS: BP 115/66; PULSE 79; RESP 18; TEMP 36.6; O2SAT 98; BMI 22.4
== END 2021-02-09 11:39 | disposition home or self-care (01) ==
PROVIDERS: Emergency Provider Emergency Medicine Emergency Medical Services; PCP Internal Medicine
DX: R51.9 Headache, unspecified (principal); S06.0X9A Concussion with loss of consciousness of unspecified duration, initial encounter; S13.4XXA Sprain of ligaments of cervical spine, initial encounter; W01.198A Fall on same level from slipping, tripping and stumbling with subsequent striking against other object, initial encounter; Z91.81 History of falling; Y93.89 Activity, other specified; Y92.019 Unspecified place in single-family (private) house as the place of occurrence of the external cause; Y99.9 Unspecified external cause status
CPT/HCPCS: 70450; 72125; 99283

== ENCOUNTER → 2021-02-11 14:51 | Outpatient (BNVA) | payer MEDICAID, SELFPAY | PROVIDERS: PCP Internal Medicine; Visit Provider Nurse Practitioner ==

== ENCOUNTER 2021-02-12 15:37 | Outpatient (REF) | payer MEDICAID, SELFPAY ==
--- NOTE | ~2021-02-12 | US_ITS ---
EXAMINATION: US VENOUS ULTRASOUND WITH DOPPLER LOWER EXTREMITY, BILATERAL CLINICAL INFORMATION: Bilateral lower extremity edema. Evaluate for a deep vein thrombosis. COMPARISON: Lower extremity venous ultrasound dated 05/02/2018 TECHNIQUE: Ultrasound of the deep veins is performed from the hip to the calf with compression sonography and color and pulse Doppler assessment. Spectral analysis with color-flow imaging is performed. FINDINGS: RIGHT: There is normal venous compression and respiratory variation and augmented flow. The visualized common femoral vein, superficial femoral vein, profunda femoral vein, popliteal vein, and the trifurcation region shows no evidence of deep venous thrombosis. There is no significant popliteal fossa cyst. LEFT: There is normal venous compression and respiratory variation and augmented flow. The visualized common femoral vein, superficial femoral vein, profunda femoral vein, popliteal vein, and the trifurcation region shows no evidence of deep venous thrombosis. There is no significant popliteal fossa cyst. If the patient's symptoms persist, followup ultrasound in 5 days 7 days might be of value to exclude proximal propagation from a non-visualized calf vein. US/US venous duplex LE BI IMPRESSION: No DVT demonstrated in the bilateral lower extremity.
== END 2021-02-12 15:38 | disposition home or self-care (01) ==
LOC: HO.US 15:37
PROVIDERS: PCP Internal Medicine; Visit Provider Nurse Practitioner Family
DX: R60.9 Edema, unspecified (principal)
CPT/HCPCS: 93970

== ENCOUNTER 2021-02-14 14:30 | Outpatient (RCR) | payer MEDICAID, SELFPAY | END 2021-03-18 16:24 | disposition other institution (70) | LOC: HO.OT 14:30 | PROVIDERS: PCP Internal Medicine; Visit Provider Student in an Organized Health Care Education/Training Program | DX: M19.041 Primary osteoarthritis, right hand (principal) | CPT/HCPCS: 29130; 97110; 97167; 97530; 97760 ==

== ENCOUNTER 2021-02-25 13:08 | Outpatient (REF) | payer MEDICAID, SELFPAY ==
--- NOTE | ~2021-02-25 | XR_ITS ---
EXAMINATION: BILATERAL KNEE X-RAY CLINICAL INFORMATION: Pain COMPARISON: Previous right knee x-ray most recent July 2019 and left knee x-ray December 2016 TECHNIQUE: 4 views of each knee FINDINGS: Right: Bone alignment is normal. No fracture or dislocation is seen. The joint spaces are normal. There is a well-corticated soft tissue ossification adjacent to the right lateral femoral condyle that is unchanged. Soft tissues are otherwise normal. There is no joint effusion. Left: Bone alignment is normal. No fracture or dislocation is seen. The joint spaces are normal. There is a well-corticated soft tissue ossification adjacent to the left lateral femoral condyle that is unchanged. Soft tissues are otherwise normal. There is no joint effusion. XR/XR knee LT 4V IMPRESSION: Unremarkable exam.
--- NOTE | ~2021-02-25 | XR_ITS ---
EXAMINATION: BILATERAL KNEE X-RAY CLINICAL INFORMATION: Pain COMPARISON: Previous right knee x-ray most recent July 2019 and left knee x-ray December 2016 TECHNIQUE: 4 views of each knee FINDINGS: Right: Bone alignment is normal. No fracture or dislocation is seen. The joint spaces are normal. There is a well-corticated soft tissue ossification adjacent to the right lateral femoral condyle that is unchanged. Soft tissues are otherwise normal. There is no joint effusion. Left: Bone alignment is normal. No fracture or dislocation is seen. The joint spaces are normal. There is a well-corticated soft tissue ossification adjacent to the left lateral femoral condyle that is unchanged. Soft tissues are otherwise normal. There is no joint effusion. XR/XR knee RT 4V IMPRESSION: Unremarkable exam.
== END 2021-02-25 13:09 | disposition home or self-care (01) ==
LOC: HO.XRAY 13:08
PROVIDERS: PCP Internal Medicine; Visit Provider Nurse Practitioner Family
DX: M25.561 Pain in right knee (principal); M25.562 Pain in left knee
CPT/HCPCS: 73564

== ENCOUNTER → 2021-03-13 19:19 | Outpatient (REF) | payer MEDICAID, SELFPAY | LOC: HO.SL 19:19 | PROVIDERS: PCP Internal Medicine; Visit Provider Internal Medicine | DX: G47.9 Sleep disorder, unspecified (principal); R06.81 Apnea, not elsewhere classified | CPT/HCPCS: 95810 ==

== ENCOUNTER → 2021-05-10 08:44 | Outpatient (BNVA) | payer MEDICAID, SELFPAY | PROVIDERS: PCP Internal Medicine; Visit Provider Internal Medicine Pulmonary Disease | DX: J70.1 Chronic and other pulmonary manifestations due to radiation (principal); R06.00 Dyspnea, unspecified | CPT/HCPCS: 99212 ==

== ENCOUNTER 2021-05-22 08:50 | Outpatient (REF) | payer MEDICAID, SELFPAY | END 2021-05-22 08:51 | disposition home or self-care (01) | LOC: HO.NEURO 08:50 | PROVIDERS: PCP Internal Medicine; Visit Provider Nurse Practitioner Family | DX: M79.605 Pain in left leg (principal) | CPT/HCPCS: 95885; 95912 ==

== ENCOUNTER 2021-06-11 08:05 | Outpatient (REF) | payer MEDICAID, SELFPAY | END 2021-06-11 08:06 | disposition home or self-care (01) | LOC: HO.LAB 08:05 | PROVIDERS: PCP Internal Medicine; Visit Provider Internal Medicine | DX: Z20.822 Contact with and (suspected) exposure to COVID-19 (principal) | CPT/HCPCS: C9803; U0003; U0005 ==

== ENCOUNTER → 2021-07-16 10:24 | Outpatient (BNVA) | payer MEDICAID, SELFPAY | PROVIDERS: PCP Internal Medicine; Referring Provider Internal Medicine; Visit Provider Nurse Practitioner Family | DX: G47.00 Insomnia, unspecified (principal) | CPT/HCPCS: 99202 ==

== ENCOUNTER → 2021-07-25 15:58 | Outpatient (BNVA) | payer MEDICAID, SELFPAY | PROVIDERS: Visit Provider Nurse Practitioner ==

== ENCOUNTER → 2021-07-26 08:04 | Outpatient (BNVA) | payer MEDICAID, SELFPAY | PROVIDERS: Visit Provider Nurse Practitioner Family | DX: M79.7 Fibromyalgia (principal); M19.041 Primary osteoarthritis, right hand | CPT/HCPCS: 99212 ==

== ENCOUNTER 2021-08-07 08:30 | Outpatient (REF) | payer MEDICAID, SELFPAY ==
--- NOTE | ~2021-08-07 | XR_ITS ---
EXAMINATION: XR HAND, RIGHT CLINICAL INFORMATION: Pain. COMPARISON: Radiographs dated 11/17/2019. TECHNIQUE: PA, lateral, and oblique views of the right hand. FINDINGS: There is bony demineralization. No fracture or dislocation is seen. The proximal and distal carpal rows are intact. There is no unusual degenerative change. No focal bone erosion or periosteal thickening is seen. A 1 mm radiopaque foreign body is seen in the fourth webspace. XR/XR hand RT min 3V IMPRESSION: 1. No fracture, dislocation or unusual degenerative change of the right hand is seen. 2. A tiny radiopaque foreign body is seen within the fourth webspace, stable from 11/17/2019.
== END 2021-08-07 08:31 | disposition home or self-care (01) ==
LOC: HO.HOSX 08:30
PROVIDERS: Visit Provider Orthopaedic Surgery
DX: M79.641 Pain in right hand (principal); R20.0 Anesthesia of skin; R20.2 Paresthesia of skin; M25.641 Stiffness of right hand, not elsewhere classified
CPT/HCPCS: 73130; 97140; 99202

== ENCOUNTER → 2021-08-09 08:47 | Outpatient (BNVA) | payer MEDICAID, SELFPAY | PROVIDERS: PCP Internal Medicine; Visit Provider Internal Medicine Pulmonary Disease | DX: R06.00 Dyspnea, unspecified (principal) | CPT/HCPCS: 99212 ==

== ENCOUNTER 2021-10-08 09:07 | Outpatient (REF) | payer MEDICAID, SELFPAY | END 2021-10-08 09:08 | disposition home or self-care (01) | LOC: HO.LAB 09:07 | PROVIDERS: Visit Provider Internal Medicine | DX: Z20.822 Contact with and (suspected) exposure to COVID-19 (principal) | CPT/HCPCS: C9803; U0003; U0005 ==

== ENCOUNTER → 2021-10-15 11:00 | Outpatient (BNVA) | payer MEDICAID, SELFPAY | PROVIDERS: PCP Internal Medicine; Referring Provider Internal Medicine; Visit Provider Nurse Practitioner Family | DX: G47.00 Insomnia, unspecified (principal) | CPT/HCPCS: 99212 ==

== ENCOUNTER 2021-11-09 10:00 | Outpatient (REF) | payer MEDICAID, SELFPAY ==
--- NOTE | ~2021-11-09 | MM_ITS ---
EXAMINATION: MM SCREENING DIGITAL BREAST TOMOSYNTHESIS, BILATERAL CLINICAL INFORMATION: Right breast cancer status post lumpectomy and radiation, 2010. Family history breast cancer, sister. Due for yearly. COMPARISON: Mammography: 10/31/2020, 09/06/2019, 08/30/2018 TECHNIQUE: Digital breast tomosynthesis is performed in both the craniocaudal and mediolateral oblique views along with computer-aided detection (CAD). Synthesized 2D images are generated from the tomosynthesis. FINDINGS: There are scattered areas of fibroglandular density (ACR BI-RADS breast composition Category b). There are no significant masses, abnormal calcifications, or other abnormalities. There are stable post therapy changes on the right with reduced breast size, old scarring, and surgical clips. Neither breast shows interval mass or developing density or interval architectural abnormality. No significant changes. MM/MM tomosynthesis screening BI IMPRESSION: No mammographic evidence of malignancy. Post therapy changes right breast, stable. ASSESSMENT: BI-RADS 2: Benign RECOMMENDATION: Routine annual mammography screening. This patient's information was entered into a reminder system with a target due date for their next mammogram.
== END 2021-11-09 10:01 | disposition home or self-care (01) ==
LOC: HO.MAMMO 10:00
PROVIDERS: Visit Provider Internal Medicine
DX: Z12.31 Encounter for screening mammogram for malignant neoplasm of breast (principal)
CPT/HCPCS: 77063; 77067

== ENCOUNTER → 2021-11-29 14:50 | Outpatient (BNVA) | payer MEDICAID, SELFPAY | PROVIDERS: PCP Internal Medicine; Referring Provider Internal Medicine; Visit Provider Nurse Practitioner | DX: K58.2 Mixed irritable bowel syndrome (principal); K21.9 Gastro-esophageal reflux disease without esophagitis; R10.13 Epigastric pain | CPT/HCPCS: 99212 ==

== ENCOUNTER → 2021-12-31 10:40 | Outpatient (BNVA) | payer MEDICAID, SELFPAY | PROVIDERS: PCP Internal Medicine; Referring Provider Internal Medicine; Visit Provider Nurse Practitioner Family | DX: G47.00 Insomnia, unspecified (principal); R25.2 Cramp and spasm | CPT/HCPCS: 99212 ==

== ENCOUNTER → 2022-01-14 09:09 | Outpatient (BNVA) | payer MEDICAID, SELFPAY | PROVIDERS: PCP Internal Medicine; Visit Provider Internal Medicine Pulmonary Disease | DX: J70.1 Chronic and other pulmonary manifestations due to radiation (principal); R06.00 Dyspnea, unspecified; Z92.3 Personal history of irradiation | CPT/HCPCS: 99212 ==

== ENCOUNTER → 2022-01-28 10:56 | Outpatient (REF) | payer MEDICAID, SELFPAY ==
--- NOTE | ~2022-01-28 | NM_ITS ---
EXAMINATION: NM BONE SCAN OF THE WHOLE BODY CLINICAL INFORMATION: Right breast cancer status post lumpectomy and radiation, 2010. Evaluate for metastases. COMPARISON: No previous bone scan dated 02/01/2016 is available for comparison. No recent radiographs are available for comparison. TECHNIQUE: Multiple gamma scintillation camera images of the whole body were performed 3 hours following the intravenous administration of 20 mCi Tc-99m MDP. FINDINGS: In the head, there is a mild diffuse increase in activity in the calvarium without a focal component. In the thoracic cage and upper extremities, there is mildly increased activity at the costochondral junctions of both first ribs, more prominently on the right and in the left sternoclavicular joint. There is minimally increased activity in the right acromioclavicular joint. There is some residual radiopharmaceutical at the injection site in the left wrist. In the spine, no significant abnormalities are present. In the pelvis, there is minimally increased activity in the left ankle diffusely. In the lower extremities, there is minimally increased activity somewhat diffusely in the proximal left foot. No other definite bony abnormalities are noted. The urinary bladder and faint visualization of both kidneys are noted. Compared to the previous bone scan dated 02/01/2016, the prominence of the costochondral junctions of both first ribs and the left sternoclavicular joint and the right acromioclavicular joint are new findings not present previously. The minimal prominence of the proximal left foot is also new. The remainder the scan is not significantly changed. RI/RI bone scan whole body IMPRESSION: 1. Nonspecific abnormalities at the costochondral junctions of both first ribs and the sternoclavicular joint on the left and minimally increased activity in the right acromioclavicular joint are nonspecific but probably arthritic or traumatic in etiology. They are all new finding since 02/01/2016. A mild diffuse increase in activity in the proximal left foot is also new. Clinical correlation is recommended. 2. No additional abnormalities suspicious for metastatic disease to bone are noted.
== END ==
LOC: HO.NUCMED 10:56
PROVIDERS: Visit Provider Internal Medicine
DX: C50.911 Malignant neoplasm of unspecified site of right female breast (principal); R74.8 Abnormal levels of other serum enzymes; Z92.3 Personal history of irradiation
CPT/HCPCS: 78306; A9503

== ENCOUNTER → 2022-02-04 09:34 | Outpatient (BNVA) | payer MEDICAID, SELFPAY | PROVIDERS: PCP Internal Medicine; Visit Provider Internal Medicine Pulmonary Disease | DX: R06.00 Dyspnea, unspecified (principal); Z91.09 Other allergy status, other than to drugs and biological substances; Z92.3 Personal history of irradiation | CPT/HCPCS: 99212 ==

== ENCOUNTER 2022-02-12 09:47 | Outpatient (REF) | payer MEDICAID, SELFPAY ==
--- NOTE | ~2022-02-12 | US_ITS ---
EXAMINATION: US ABDOMEN COMPLETE CLINICAL INFORMATION: Abnormal serum enzymes. Evaluate for liver disease. COMPARISON: Ultrasound abdomen complete 12/26/2020 and 08/02/2015. CT abdomen and pelvis 05/15/2016. X-ray abdomen 04/29/2016. TECHNIQUE: Real-time imaging of the abdominal viscera. FINDINGS: PANCREAS: The head and body the pancreas are normal. The tail is not well visualized due to bowel gas. ABDOMINAL AORTA: The proximal, mid, and distal segments are normal in caliber. INFERIOR VENA CAVA: Visualized portions are normal. LIVER: The liver is normal in size. The liver contour is normal. Liver echotexture is increased. No focal hepatic lesion. There is no intrahepatic biliary duct dilatation seen. GALLBLADDER: Normal. The gallbladder is physiologically distended without evidence of stones, sludge, polyps, wall thickening or pericholecystic fluid. COMMON BILE DUCT: Normal in caliber measuring 0.2 cm in diameter. RIGHT KIDNEY: There is a 2 mm echogenic density in the midpole questionable for a small stone. No hydronephrosis or focal parenchymal lesions. The kidney measures 9.8 cm in maximum dimension. LEFT KIDNEY: Normal. No hydronephrosis. No renal calculi or focal parenchymal lesions. The kidney measures 9.4 cm in maximum dimension. SPLEEN: Normal. The spleen measures 7.8 cm in maximum dimension. FREE FLUID: None. US/US abdomen complete IMPRESSION: Echogenic liver probably representing fatty infiltration. Question small right renal stone. Limited visualization of the tail of the pancreas.
== END 2022-02-12 09:48 | disposition home or self-care (01) ==
LOC: HO.US 09:47
PROVIDERS: Visit Provider Internal Medicine
DX: C50.911 Malignant neoplasm of unspecified site of right female breast (principal); R74.8 Abnormal levels of other serum enzymes
CPT/HCPCS: 76700

== ENCOUNTER → 2022-03-19 11:47 | Outpatient (BNVA) | payer MEDICAID, SELFPAY | PROVIDERS: PCP Internal Medicine; Visit Provider Orthopaedic Surgery | DX: R20.0 Anesthesia of skin (principal); R20.2 Paresthesia of skin; M25.641 Stiffness of right hand, not elsewhere classified | CPT/HCPCS: 99212 ==

== ENCOUNTER → 2022-03-24 08:53 | Outpatient (BNVA) | payer MEDICAID, SELFPAY | PROVIDERS: Visit Provider Nurse Practitioner Family | DX: M79.7 Fibromyalgia (principal); M19.041 Primary osteoarthritis, right hand | CPT/HCPCS: 99212 ==

== ENCOUNTER → 2022-04-16 08:54 | Outpatient (REF) | payer MEDICAID, SELFPAY ==
--- NOTE | ~2022-04-16 | NM_ITS ---
Lexiscan Myocardial perfusion study Indication: Chest discomfort, assess for coronary disease and ischemia Technique: The patient was brought in for a Lexiscan perfusion study on 04/16/2022 and was injected 0.4 mg of Lexiscan intravenously. Within a minute of this injection 25 mCi of sestamibi was given intravenously. Images were obtained using the SPECT gamma camera interlaced with the gating device. Images were obtained in supine position. Resting perfusion study was performed on 04/17/2022. Patient was administered 25 mCi of sestamibi intravenously at rest. Images were then obtained in supine position. Total DLP 107mGy-cm. Arms by the patient's side Images were processed with the software and compared side to side in short axis, horizontal long axis and vertical long axis views. Findings: Raw acquisition was reviewed. The stress perfusion study showed mildly diminished tracer uptake in the distal part of inferolateral wall. There is improvement with CT attenuation correction and hence suggestive of diaphragmatic attenuation artifact. The gated study shows normal LV systolic function with calculated LVEF of 62%. LV cavity is normal in size. The gated study shows normal wall thickening and contraction of segments. Resting study shows no significant perfusion abnormality. Gating at rest reveals normal wall motion with ejection fraction at 68%. The findings are consistent with no definite reversible or fixed perfusion defects. NM/NM ricardo perf SPECT rest & str Impression: 1. Myocardial perfusion imaging study shows likely normal myocardial perfusion. No definitive evidence of any ischemia or infarction. 2. Gated LVEF is 62% during stress and 68% during rest. 3. Transient ischemic dilatation not present. EKG component of the test reported separately.
--- NOTE | 2022-04-16 09:05 | CA_ITS ---
Acquisition Time: 2022-04-16 09:31:04 Total Exercise Time: 00:02:00 Test Indications: DYSPNEA ON EXERTION, CP Medications: SEE OFFICE VISIT Protocol: LEXISCAN Max HR: 122 BPM 75% of Pred: 161 BPM Max BP: 104/058 mmHG Max Work Load: 1.0 METS Pharmacological stress test with Lexiscan injection, while sitting and kicking her legs, without anginal symptoms, without arrythmia, with normotensive response to injection, with nondiagnostic EKG for ischemia. In recovery she reported lightheadedness that was treated with Aminophylline 75mg IVP to reverse Lexiscan with resolution of symptom. - Nuclear images pending. Test reviewed with Dr Pelaez. Referred By: Edilberto Ventura Overread By: ISSAC VALDEZ
[2022-04-16 10:04] LABS: Alanine Aminotransferase 12 U/L (0-31); Aspartate Amino Transferase 20 U/L (5-31); Cholesterol 220 mg/dL; HDL Cholesterol 56 mg/dL; LDL Cholesterol Calculated 144 mg/dl; Triglycerides 103 mg/dL
== END ==
LOC: HO.CARD 08:54
PROVIDERS: PCP Internal Medicine; Referring Provider Internal Medicine Cardiovascular Disease; Visit Provider Physician Assistant Medical
DX: R07.9 Chest pain, unspecified (principal); R06.09 Other forms of dyspnea; I42.9 Cardiomyopathy, unspecified
CPT/HCPCS: 36415; 78452; 80061; 84450; 84460; 93017; A9500; J0280; J2785

== ENCOUNTER 2022-04-30 11:07 | Outpatient (REF) | payer MEDICAID, SELFPAY ==
[2022-04-30 12:02] LABS: Estimated Average Glucose 103 mg/dL; Hemoglobin A1c % 5.2 %
[2022-04-30 12:21] LABS: Alanine Aminotransferase 13 U/L (0-31); Albumin Level 4.6 g/dL (3.5-5.0); Alkaline Phosphatase 127 U/L (39-117); Aspartate Amino Transferase 21 U/L (5-31); Bilirubin Direct 0.2 mg/dL (0.0-0.5); Bilirubin Total 0.4 mg/dL (0.0-1.0); Cholesterol 231 mg/dL; Gamma Glutamyl Transpeptidase 14 U/L (7-33); HBS Num1 71.63 mIU/mL (0-7.99); HBc Num1 0.09 S/CO (0.00-0.79); HBsAGNum1 0.21 S/CO (0.00-0.99); HDL Cholesterol 55 mg/dL; HIV AB/AG Nonreactive (Nonreactive); HIV Num 1 0.07 S/CO (0.00-0.99); Hepatitis B Core Antibody Nonreactive (Nonreactive); Hepatitis B Surface Antigen Negative (Negative); LDL Cholesterol Calculated 150 mg/dl; Total Protein 7.2 g/dL (6.5-8.0); Triglycerides 130 mg/dL; ~Hepatitis B Surface Antibody REACTIVE (Nonreactive)
[2022-04-30 12:31] LABS: Vitamin B12 308 pg/mL (200-900)
[2022-04-30 12:42] LABS: TSH reflex Free T4 2.08 uIU/mL (0.32-4.0)
[2022-05-03 17:11] LABS: Hepatitis B Viral DNA Qn - cp <1.00 NOT DETECTED Log IU/mL (NOT DETECTED); Hepatitis B Viral DNA Qn-IU/mL <10 NOT DETECTED IU/mL (NOT DETECTED)
[2022-05-06 21:47] LABS: Anti Nuclear Antibody Screen POSITIVE (NEGATIVE)
[2022-05-06 21:52] LABS: Smooth Muscle Antibody <20 U (<20)
== END 2022-04-30 11:08 | disposition home or self-care (01) ==
LOC: HO.LAB 11:07
PROVIDERS: PCP Internal Medicine; Visit Provider Internal Medicine
DX: Z11.4 Encounter for screening for human immunodeficiency virus [HIV] (principal); G43.009 Migraine without aura, not intractable, without status migrainosus; K76.0 Fatty (change of) liver, not elsewhere classified
CPT/HCPCS: 36415; 80061; 80076; 82607; 82977; 83036; 84443; 86015; 86038; 86039; 86704; 86706; 87340; 87389; 87517

== ENCOUNTER 2022-05-14 06:43 | Emergency (ER) | payer MEDICAID, SELFPAY ==
[2022-05-14 07:07] VITALS: BP 108/51; PULSE 74; RESP 16; TEMP 36.4; O2SAT 96; BMI 20.9
--- NOTE | 2022-05-14 07:47 | ED.HEATRA ---
HPI - Head Injury General Chief complaint: Head Injury Stated complaint: left sided pain, head inj Time Seen by Provider: 05/14/22 07:27 Source: patient and writer technical publications Mode of arrival: ambulatory Limitations: no limitations Related Data Home Medications Medication Instructions Recorded Confirmed buspirone 15 mg tablet 15 mg PO TID 11/08/20 12/31/21 cholecalciferol (vitamin D3) 50 50 mcg PO DAILY 11/08/20 12/31/21 mcg (2,000 unit) capsule clonazepam 1 mg tablet 1 mg PO BEDTIME 11/08/20 12/31/21 olanzapine 20 mg tablet 20 mg PO BEDTIME 11/08/20 12/31/21 prazosin 2 mg capsule 2 mg PO BEDTIME 11/08/20 12/31/21 sertraline 100 mg tablet 100 mg PO DAILY 11/08/20 12/31/21 amlodipine 2.5 mg tablet 2.5 mg PO DAILY 07/16/21 12/31/21 loratadine 10 mg tablet 10 mg PO DAILY 07/16/21 12/31/21 mirtazapine 45 mg tablet 45 mg PO BEDTIME 07/16/21 12/31/21 vitamin B complex (B 1 tab PO DAILY 07/16/21 12/31/21 Complex-Vitamin B12) pregabalin 150 mg capsule 150 mg PO BID 03/24/22 03/24/22 Previous Rx's Medication Instructions Recorded naproxen 500 mg tablet 500 mg PO BID PRN pain #14 tabs 12/22/20 simethicone 180 mg capsule 180 mg PO QID 30 days #120 caps 01/14/21 cyclobenzaprine 10 mg tablet 10 mg PO TID PRN muscle pain or 02/09/21 spasm #20 tabs albuterol sulfate 90 mcg/actuation 2 puff inhalation Q6H PRN for 09/06/21 aerosol inhaler (ProAir HFA) wheezing #8.5 ea famotidine 40 mg tablet (Pepcid) 40 mg PO BEDTIME #30 tabs 11/29/21 omeprazole 20 mg capsule,delayed 20 mg PO DAILY #30 caps 11/29/21 release magnesium oxide 400 mg (241.3 mg 400 mg PO DAILY 30 days #30 tabs 12/31/21 magnesium) tablet melatonin 10 mg tablet 10 mg PO BEDTIME PRN sleep 30 days 12/31/21 #30 tabs fluticasone propionate 115 2 puff inhalation BID 30 days #1 ea 01/20/22 mcg-salmeterol 21 mcg/actuation HFA inhaler (Advair HFA) sennosides 8.6 mg tablet (senna) 17.2 mg PO BEDTIME #60 tabs 02/04/22 dicyclomine 20 mg tablet 40 mg PO QID 30 days #240 tabs 03/19/22 Allergies Allergy/AdvReac Type Severity Reaction Status Date / Time codeine [CODEINE] Allergy Intermediate DIZZY/NAUSEA, Verified 03/24/22 09:08 nausea/vomiting escitalopram [From LEXAPRO] Allergy Intermediate ? NAUSEA Verified 03/24/22 09:08 meperidine [MEPERIDINE] Allergy Intermediate NAUSEA Verified 03/24/22 09:08 morphine [MORPHINE] Allergy Intermediate PALPITATIONS, Verified 03/24/22 09:08 palpitation oxycodone [OXYCODONE] Allergy Intermediate PALPATATIONS, Verified 03/24/22 09:08 palpitations tramadol Allergy Unknown dizziness, Verified 03/24/22 09:08 nausea PMFSH Past Medical History Medical History Anxiety Fibromyalgia Periodontal disease Primary osteoarthritis of right hand Surgical History History of esophagogastroduodenoscopy (EGD) History of lumpectomy Hx of section Hx of colonoscopy Hx of shoulder surgery Family History Family History Mother HTN (hypertension) Sister Breast cancer Bone cancer Colon polyps Sister Osteoporosis Hypercholesteremia Colon polyps Social History Social History Household Members: Children Housing: Apartment Are you a primary primary care provider to a significant other at home: No Do you presently have visiting nurse or other home services: Yes Alcohol intake: never Patient Tobacco Use Status: Former Tobacco user Years Smoked: 3 Advance Directives: No Advance Directives Information Provided: Yes Patient : No service: No Current occupational status: disabled 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 Physical Exam Vital Signs: Vital Signs: Last Vital Signs Temp 97.5 F 05/14/22 07:07 Pulse 74 05/14/22 07:07 Resp 16 05/14/22 07:07 BP 108/51 L 05/14/22 07:07 Pulse Ox 96 05/14/22 07:07 O2 Del Method 05/14/22 07:07 BMI result Body Mass Index 20.9 Discharge Plan Discharge Prescriptions: No Action albuterol sulfate [ProAir HFA] 90 mcg/actuation HFA aerosol inhaler 2 puff inhalation Q6H PRN (Reason: for wheezing) Qty: 8.5 0RF Advair HFA 115-21 mcg/actuation HFA aerosol inhaler 2 puff inhalation BID 30 Days Qty: 1 6RF sennosides [senna] 8.6 mg tablet 17.2 mg PO BEDTIME Qty: 60 6RF Rx Instructions: TWO tablets every night, not one as she was told by the phamacist. dicyclomine 20 mg tablet 40 mg PO QID 30 Days Qty: 240 3RF naproxen 500 mg tablet 500 mg PO BID PRN (Reason: pain) Qty: 14 0RF cyclobenzaprine 10 mg tablet 10 mg PO TID PRN (Reason: muscle pain or spasm) Qty: 20 0RF vitamin B complex [B Complex-Vitamin B12] Tablet 1 tab PO DAILY loratadine 10 mg tablet 10 mg PO DAILY amlodipine 2.5 mg tablet 2.5 mg PO DAILY mirtazapine 45 mg tablet 45 mg PO BEDTIME buspirone 15 mg tablet 15 mg PO TID sertraline 100 mg tablet 100 mg PO DAILY olanzapine 20 mg tablet 20 mg PO BEDTIME cholecalciferol (vitamin D3) 50 mcg (2,000 unit) capsule 50 mcg PO DAILY clonazepam 1 mg tablet 1 mg PO BEDTIME Rx Instructions: administer 30 minutes before bedtime prazosin 2 mg capsule 2 mg PO BEDTIME simethicone 180 mg capsule 180 mg PO QID 30 Days Qty: 120 6RF Rx Instructions: after meals famotidine [Pepcid] 40 mg tablet 40 mg PO BEDTIME Qty: 30 6RF omeprazole 20 mg capsule,delayed release(DR/EC) 20 mg PO DAILY Qty: 30 6RF melatonin 10 mg tablet 10 mg PO BEDTIME PRN (Reason: sleep) 30 Days Qty: 30 6RF magnesium oxide 400 mg (241.3 mg magnesium) tablet 400 mg PO DAILY 30 Days Qty: 30 6RF pregabalin 150 mg capsule 150 mg PO BID
--- NOTE | 2022-05-14 07:54 | ECG_ITS ---
Test Reason : dizziness Blood Pressure : / mmHG Vent. Rate : 062 BPM Atrial Rate : 062 BPM P-R Int : 150 ms QRS Dur : 084 ms QT Int : 370 ms P-R-T Axes : 059 055 045 degrees QTc Int : 375 ms Normal sinus rhythm Normal ECG When compared with ECG of 23-NOV-2019 10:44, No significant change was found Referred By: Nicole Richardson Electronically Signed By:JOSELITO GARZA MD
--- NOTE | 2022-05-14 07:54 | ED.GENADULT ---
HPI - General Adult General Chief complaint: Head Injury Stated complaint: left sided pain, head inj Time Seen by Provider: 05/14/22 07:27 Source: patient and historical interpreter Mode of arrival: ambulatory Limitations: no limitations History of Present Illness complaint: L sided body pain Onset (ago): day(s) (3) Location: chest, left, upper extremity and lower extremity Radiation: non-radiation Severity: moderate Quality: aching, dull and constant Pain Consistency: constant Relieving factors: none Exacerbating factors: movement Associated symptoms: malaise Treatments prior to arrival: other (tylenol) Related Data Home Medications Medication Instructions Recorded Confirmed buspirone 15 mg tablet 15 mg PO TID 11/08/20 12/31/21 cholecalciferol (vitamin D3) 50 50 mcg PO DAILY 11/08/20 12/31/21 mcg (2,000 unit) capsule clonazepam 1 mg tablet 1 mg PO BEDTIME 11/08/20 12/31/21 olanzapine 20 mg tablet 20 mg PO BEDTIME 11/08/20 12/31/21 prazosin 2 mg capsule 2 mg PO BEDTIME 11/08/20 12/31/21 sertraline 100 mg tablet 100 mg PO DAILY 11/08/20 12/31/21 amlodipine 2.5 mg tablet 2.5 mg PO DAILY 07/16/21 12/31/21 loratadine 10 mg tablet 10 mg PO DAILY 07/16/21 12/31/21 mirtazapine 45 mg tablet 45 mg PO BEDTIME 07/16/21 12/31/21 vitamin B complex (B 1 tab PO DAILY 07/16/21 12/31/21 Complex-Vitamin B12) pregabalin 150 mg capsule 150 mg PO BID 03/24/22 03/24/22 Previous Rx's Medication Instructions Recorded naproxen 500 mg tablet 500 mg PO BID PRN pain #14 tabs 12/22/20 simethicone 180 mg capsule 180 mg PO QID 30 days #120 caps 01/14/21 cyclobenzaprine 10 mg tablet 10 mg PO TID PRN muscle pain or 02/09/21 spasm #20 tabs albuterol sulfate 90 mcg/actuation 2 puff inhalation Q6H PRN for 09/06/21 aerosol inhaler (ProAir HFA) wheezing #8.5 ea famotidine 40 mg tablet (Pepcid) 40 mg PO BEDTIME #30 tabs 11/29/21 omeprazole 20 mg capsule,delayed 20 mg PO DAILY #30 caps 11/29/21 release magnesium oxide 400 mg (241.3 mg 400 mg PO DAILY 30 days #30 tabs 12/31/21 magnesium) tablet melatonin 10 mg tablet 10 mg PO BEDTIME PRN sleep 30 days 12/31/21 #30 tabs fluticasone propionate 115 2 puff inhalation BID 30 days #1 ea 01/20/22 mcg-salmeterol 21 mcg/actuation HFA inhaler (Advair HFA) sennosides 8.6 mg tablet (senna) 17.2 mg PO BEDTIME #60 tabs 02/04/22 dicyclomine 20 mg tablet 40 mg PO QID 30 days #240 tabs 03/19/22 lidocaine 5 % topical patch 1 patch topical DAILY #30 ea 05/14/22 Allergies Allergy/AdvReac Type Severity Reaction Status Date / Time codeine [CODEINE] Allergy Intermediate DIZZY/NAUSEA, Verified 03/24/22 09:08 nausea/vomiting escitalopram [From LEXAPRO] Allergy Intermediate ? NAUSEA Verified 03/24/22 09:08 meperidine [MEPERIDINE] Allergy Intermediate NAUSEA Verified 03/24/22 09:08 morphine [MORPHINE] Allergy Intermediate PALPITATIONS, Verified 03/24/22 09:08 palpitation oxycodone [OXYCODONE] Allergy Intermediate PALPATATIONS, Verified 03/24/22 09:08 palpitations tramadol Allergy Unknown dizziness, Verified 03/24/22 09:08 nausea Review of Systems Review of Systems: Constitutional : No Fever, No Chills, pos Fatigue, pos Malaise ENT/Mouth : No sore throat, No Rhinorrhea Eyes: No Eye Pain, No Swelling, No Redness Cardiovascular : No Chest Pain, No SOB Respiratory : No Cough, No Sputum, No Wheezing Gastrointestinal : No Nausea, No Vomiting, No Diarrhea, No Constipation, No abdominal Pain, No Hematochezia, No Melena Genitourinary : No Dysuria, No Urinary Frequency, No Hematuria, Musculoskeletal :pos joint pain, pos Myalgias, No Joint Swelling Skin : No Skin Lesions, No rash Neuro : No Weakness, No Numbness, No Dizziness, No Headache Psych : No Anxiety/Panic, No Depression Heme/Lymph: No Bruising, No Bleeding,No Lymphadenopathy Endocrine : No Polyuria, No Polydipsia All other systems reviewed and are negative FORMERLY [facility], [facility] Past Medical History Attestation statement: The following information was validated with the patient. Medical History Anxiety Fibromyalgia Periodontal disease Primary osteoarthritis of right hand Surgical History History of esophagogastroduodenoscopy (EGD) History of lumpectomy Hx of section Hx of colonoscopy Hx of shoulder surgery Family History Family History Mother HTN (hypertension) Sister Breast cancer Bone cancer Colon polyps Sister Osteoporosis Hypercholesteremia Colon polyps Social History Social History Household Members: Children Housing: Apartment Are you a primary home health care provider to a significant other at home: No Do you presently have visiting nurse or other home services: Yes Alcohol intake: never Patient Tobacco Use Status: Former Tobacco user Years Smoked: 3 Advance Directives: No Advance Directives Information Provided: Yes Patient : No service: No Current occupational status: disabled 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 Oriented X3. No acute distress. Eyes: Pupils equal, round and reactive to light. ENT: Pharynx normal. Neck: Normal inspection. Neck supple. CVS: Normal heart rate and rhythm. Pulses normal. chest wall upper area NV intact Respiratory: No respiratory distress. Breath sounds normal. Abdomen: Soft and nontender. Skin: Skin warm and dry. Normal skin color. Normal skin turgor. Extremities: No lower extremity edema. No calf ttp ttp in LUE along shoulder and biceps external appearance normal distal NV intact Neuro: Oriented X 3. No motor deficit. No sensory deficit. Course Course Course Narrative: EKG, troponin, infl markers negative - stable for DC at this time Medical Decision Making MDM Narrative Medical decision making narrative: 57 yo female with hx of anxiety, depression, fibromyalgia, GERD comes in wiht 3 days of L sided body pain not responding to tylenol. Denies trauma, she is NV intact. At this time will obtain basic labs, EKG, CXR. PO valium and lidocaine patch. Suspect fibromyalgia exacerbation. Lab Data Result diagrams: 05/14/22 08:16 05/14/22 08:16 Labs: Lab Results 05/14/22 05/14/22 05/14/22 Range/Units 08:16 08:16 08:16 WBC 3.8 L (4.8-10.8) X10*3/uL RBC 4.21 (4.20-5.50) X10*6/uL Hgb 12.8 (12.0-16.0) g/dl Hct 38.0 (37.0-47.0) % MCV 90.3 (80.0-98.0) fL MCH 30.4 (27.0-33.0) pg MCHC 33.7 (31.0-35.0) g/dl RDW 13.6 (11.0-16.0) % Plt Count 276 (160-400) X10*3/uL MPV 9.1 L (9.4-12.3) fL Immature Gran % (Auto) 0.3 (0.0-0.4) % Neut % (Auto) 55.0 (45-73) % Lymph % (Auto) 36.1 (20-40) % [place] % (Auto) 6.5 (2-11) % Eos % (Auto) 1.6 (0-4) % Baso % (Auto) 0.5 (0-2) % Lymph # (Auto) 1.4 (1.2-4.9) X10*3/uL [place] # (Auto) 0.3 (0.1-1.2) X10*3/uL Eos # (Auto) 0.1 (0.0-0.4) X10*3/uL Baso # (Auto) 0.0 (0.0-0.2) X10*3/uL Abs Immat Gran (auto) 0.01 (0.00-0.03) X10*3/uL Absolute Neuts (auto) 2.1 (2.0-8.3) x10*3/uL Absolute Nucleated RBC 0.000 (0.0-0.012) X10*3/uL Nucleated RBC % (auto) 0.0 (0.0-0.2) /100WBC ESR 7 (0-20) MM/HR Sodium 142 (135-145) mmol/L Potassium 4.0 (3.3-5.1) mmol/L Chloride 109 H (96-108) mmol/L Carbon Dioxide 27 (22-29) mmol/L Anion Gap 10 L (12-20) BUN 12 (9-16) mg/dL Creatinine 0.86 (0.5-1.4) mg/dL Estim Creat Clear Calc 55.7 Estimated GFR > 60 Random Glucose 81 (60-115) mg/dL Calcium 9.5 (8.4-10.2) mg/dL Magnesium 2.0 (1.6-2.6) mg/dL Total Bilirubin 0.4 (0.0-1.0) mg/dL Direct Bilirubin < 0.2 (0.0-0.5) mg/dL AST 19 (5-31) U/L ALT 11 (0-31) U/L Alkaline Phosphatase 124 H (39-117) U/L Total Creatine Kinase 61 (26-140) U/L Troponin I High Sens (<3.5-17.0) ng/L C-Reactive Protein 0.25 (< or = 0.50) mg/dL Total Protein 6.9 (6.5-8.0) g/dL Albumin 4.5 (3.5-5.0) g/dL COVID-19 (MILA) (Negative) COVID-19 Clin Com 05/14/22 05/14/22 Range/Units 08:16 08:16 WBC (4.8-10.8) X10*3/uL RBC (4.20-5.50) X10*6/uL Hgb (12.0-16.0) g/dl Hct (37.0-47.0) % MCV (80.0-98.0) fL MCH (27.0-33.0) pg MCHC (31.0-35.0) g/dl RDW (11.0-16.0) % Plt Count (160-400) X10*3/uL MPV (9.4-12.3) fL Immature Gran % (Auto) (0.0-0.4) % Neut % (Auto) (45-73) % Lymph % (Auto) (20-40) % [place] % (Auto) (2-11) % Eos % (Auto) (0-4) % Baso % (Auto) (0-2) % Lymph # (Auto) (1.2-4.9) X10*3/uL [place] # (Auto) (0.1-1.2) X10*3/uL Eos # (Auto) (0.0-0.4) X10*3/uL Baso # (Auto) (0.0-0.2) X10*3/uL Abs Immat Gran (auto) (0.00-0.03) X10*3/uL Absolute Neuts (auto) (2.0-8.3) x10*3/uL Absolute Nucleated RBC (0.0-0.012) X10*3/uL Nucleated RBC % (auto) (0.0-0.2) /100WBC ESR (0-20) MM/HR Sodium (135-145) mmol/L Potassium (3.3-5.1) mmol/L Chloride (96-108) mmol/L Carbon Dioxide (22-29) mmol/L Anion Gap (12-20) BUN (9-16) mg/dL Creatinine (0.5-1.4) mg/dL Estim Creat Clear Calc Estimated GFR Random Glucose (60-115) mg/dL Calcium (8.4-10.2) mg/dL Magnesium (1.6-2.6) mg/dL Total Bilirubin (0.0-1.0) mg/dL Direct Bilirubin (0.0-0.5) mg/dL AST (5-31) U/L ALT (0-31) U/L Alkaline Phosphatase (39-117) U/L Total Creatine Kinase (26-140) U/L Troponin I High Sens < 3.5 (<3.5-17.0) ng/L C-Reactive Protein (< or = 0.50) mg/dL Total Protein (6.5-8.0) g/dL Albumin (3.5-5.0) g/dL COVID-19 (MILA) Negative (Negative) COVID-19 Clin Com See Note ECG Data Attestation: I personally reviewed and interpreted this ECG as follows: Interpretation: Rate: 62 Rhythm: NSR [place]: normal Normal P waves. Normal VIBHA. Normal QRS complex. ST T wave : normal no DWAYNE qTC: normal prior studies: no acute ischemia The study has been interpreted contemporaneously by me. . Discharge Plan Discharge Clinical Impression: Myalgia Patient Disposition: Home, Self-Care Instructions: Musculoskeletal Pain (ED) Additional Instructions: laboratorios y marcadores inflamatorios negativos hoy, electrocardiograma normal hoy regresar al servicio de urgencias por cualquier inquietud o sin mejor?a en los s?ntomas Prescriptions: New lidocaine 5 % adhesive patch,medicated 1 patch topical DAILY Qty: 30 0RF Rx Instructions: leave on most painful area for up to 12 hrs No Action albuterol sulfate [ProAir HFA] 90 mcg/actuation HFA aerosol inhaler 2 puff inhalation Q6H PRN (Reason: for wheezing) Qty: 8.5 0RF Advair HFA 115-21 mcg/actuation HFA aerosol inhaler 2 puff inhalation BID 30 Days Qty: 1 6RF sennosides [senna] 8.6 mg tablet 17.2 mg PO BEDTIME Qty: 60 6RF Rx Instructions: TWO tablets every night, not one as she was told by the phamacist. dicyclomine 20 mg tablet 40 mg PO QID 30 Days Qty: 240 3RF naproxen 500 mg tablet 500 mg PO BID PRN (Reason: pain) Qty: 14 0RF cyclobenzaprine 10 mg tablet 10 mg PO TID PRN (Reason: muscle pain or spasm) Qty: 20 0RF vitamin B complex [B Complex-Vitamin B12] Tablet 1 tab PO DAILY loratadine 10 mg tablet 10 mg PO DAILY amlodipine 2.5 mg tablet 2.5 mg PO DAILY mirtazapine 45 mg tablet 45 mg PO BEDTIME buspirone 15 mg tablet 15 mg PO TID sertraline 100 mg tablet 100 mg PO DAILY olanzapine 20 mg tablet 20 mg PO BEDTIME cholecalciferol (vitamin D3) 50 mcg (2,000 unit) capsule 50 mcg PO DAILY clonazepam 1 mg tablet 1 mg PO BEDTIME Rx Instructions: administer 30 minutes before bedtime prazosin 2 mg capsule 2 mg PO BEDTIME simethicone 180 mg capsule 180 mg PO QID 30 Days Qty: 120 6RF Rx Instructions: after meals famotidine [Pepcid] 40 mg tablet 40 mg PO BEDTIME Qty: 30 6RF omeprazole 20 mg capsule,delayed release(DR/EC) 20 mg PO DAILY Qty: 30 6RF melatonin 10 mg tablet 10 mg PO BEDTIME PRN (Reason: sleep) 30 Days Qty: 30 6RF magnesium oxide 400 mg (241.3 mg magnesium) tablet 400 mg PO DAILY 30 Days Qty: 30 6RF pregabalin 150 mg capsule 150 mg PO BID Referrals: Umm Coley MD [Primary Care Provider] - 1 week Print Language: Estonian
[2022-05-14] MEDS: Lidocaine 4 % Patch ADH..PATCH 1 PATCH TRANSDERMA (08:01)
[2022-05-14] MEDS: diazePAM 2 MG TABLET PO (08:01)
[2022-05-14 08:25] LABS: MANUAL DIFF FLAG NO
[2022-05-14 08:33] LABS: Basophils Percent Auto 0.5 % (0-2); Eosinophils Absolute Auto 0.1 X10*3/uL (0.0-0.4); Eosinophils Percent Auto 1.6 % (0-4); Hemoglobin 12.8 g/dl (12.0-16.0); Imm Gran Abs Auto 0.01 X10*3/uL (0.00-0.03); Imm Gran Pct Auto 0.3 % (0.0-0.4); Lymphocytes Absolute Auto 1.4 X10*3/uL (1.2-4.9); Lymphocytes Percent Auto 36.1 % (20-40); Mean Corpuscular HGB Conc 33.7 g/dl (31.0-35.0); Mean Corpuscular Hemoglobin 30.4 pg (27.0-33.0); Mean Corpuscular Volume 90.3 fL (80.0-98.0); Mean Platelet Volume 9.1 fL (9.4-12.3); Monocytes Absolute Auto 0.3 X10*3/uL (0.1-1.2); Monocytes Percent Auto 6.5 % (2-11); Neutrophils Absolute Auto 2.1 x10*3/uL (2.0-8.3); Platelet Count 276 X10*3/uL (160-400); Red Blood Count 4.21 X10*6/uL (4.20-5.50); Red Cell Distribution Width 13.6 % (11.0-16.0); White Blood Count 3.8 X10*3/uL (4.8-10.8)
[2022-05-14 08:44] LABS: COVID-19 Test Negative (Negative)
[2022-05-14 08:48] LABS: Alanine Aminotransferase 11 U/L (0-31); Albumin Level 4.5 g/dL (3.5-5.0); Alkaline Phosphatase 124 U/L (39-117); Anion Gap 10 (12-20); Aspartate Amino Transferase 19 U/L (5-31); Bilirubin Direct < 0.2 mg/dL (0.0-0.5); Bilirubin Total 0.4 mg/dL (0.0-1.0); Blood Urea Nitrogen 12 mg/dL (9-16); C Reactive Protein 0.25 mg/dL (< or = 0.50); Calcium 9.5 mg/dL (8.4-10.2); Carbon Dioxide 27 mmol/L (22-29); Chloride 109 mmol/L (96-108); Creatinine Clr Calc Pharmacy 55.7; Estimated Glomerular Filt Rate > 60; Glucose Random 81 mg/dL (60-115); Sodium 142 mmol/L (135-145); Total Protein 6.9 g/dL (6.5-8.0)
[2022-05-14 08:52] LABS: Troponin-I High Sensitivity < 3.5 ng/L (<3.5-17.0)
[2022-05-14 09:16] LABS: Erythrocyte Sedimentation Rate 7 MM/HR (0-20)
== END 2022-05-14 09:41 | disposition home or self-care (01) ==
PROVIDERS: Emergency Provider Emergency Medicine; PCP Internal Medicine
DX: M79.10 Myalgia, unspecified site (principal); Z79.899 Other long term (current) drug therapy; Z87.891 Personal history of nicotine dependence; Z20.822 Contact with and (suspected) exposure to COVID-19
CPT/HCPCS: 80048; 80076; 82550; 83735; 84484; 85025; 85652; 86140; 87635; 93005; 99283; 99284

== ENCOUNTER → 2022-05-29 14:07 | Outpatient (BNVA) | payer MEDICAID, SELFPAY | PROVIDERS: PCP Internal Medicine; Referring Provider Internal Medicine; Visit Provider Nurse Practitioner | DX: K21.9 Gastro-esophageal reflux disease without esophagitis (principal); K58.2 Mixed irritable bowel syndrome | CPT/HCPCS: 99212 ==

== ENCOUNTER 2022-06-03 08:23 | Outpatient (REF) | payer MEDICAID, SELFPAY ==
[2022-06-03 09:22] LABS: Alanine Aminotransferase 8 U/L (0-31); Albumin Level 4.8 g/dL (3.5-5.0); Alkaline Phosphatase 124 U/L (39-117); Aspartate Amino Transferase 17 U/L (5-31); Bilirubin Direct < 0.2 mg/dL (0.0-0.5); Bilirubin Total 0.4 mg/dL (0.0-1.0); Iron 66 mcg/dL (30-160); Percent Iron Saturation 21 % (15-50); Total Iron Binding Capacity 315 mcg/dL (228-428); Total Protein 7.4 g/dL (6.5-8.0); Unsaturated Iron Binding 249 ug/dL
[2022-06-03 09:48] LABS: Ferritin 73 ng/mL (10-250)
[2022-06-04 14:17] LABS: Transferrin 232 mg/dL (188-341)
[2022-06-04 14:21] LABS: Mitochondrial Antibodies NEGATIVE (NEGATIVE)
[2022-06-06 09:21] LABS: Anti DNA DS Antibody 4 IU/mL
[2022-06-09 23:52] LABS: Liver Kidney Microsomal Ab <=20.0 U (<=20.0)
== END 2022-06-03 08:24 | disposition home or self-care (01) ==
LOC: HO.LAB 08:23
PROVIDERS: PCP Internal Medicine; Visit Provider Internal Medicine
DX: K76.0 Fatty (change of) liver, not elsewhere classified (principal); R76.8 Other specified abnormal immunological findings in serum
CPT/HCPCS: 36415; 80076; 82728; 83540; 84466; 86225; 86255; 86256; 86376

== ENCOUNTER → 2022-07-01 13:35 | Outpatient (BNVA) | payer MEDICAID, SELFPAY | PROVIDERS: PCP Internal Medicine; Visit Provider Nurse Practitioner Family | DX: G47.00 Insomnia, unspecified (principal); R25.2 Cramp and spasm; Z79.899 Other long term (current) drug therapy | CPT/HCPCS: 99212 ==

== ENCOUNTER 2022-07-03 07:57 | Outpatient (REF) | payer MEDICAID, SELFPAY ==
--- NOTE | ~2022-07-03 | CT_ITS ---
EXAMINATION: CT ABDOMEN AND PELVIS WITHOUT CONTRAST CLINICAL INFORMATION: Fatty liver COMPARISON: Ultrasound of February 12, 2022 TECHNIQUE: Multidetector volumetric imaging was performed from the superior aspect of the liver through the pubic symphysis. Sagittal and coronal reformatted images were obtained on the technologist's workstation. This CT examination was performed using dose optimization techniques as appropriate, variously including the following: *Automated exposure control *Adjustment of mA and/or kV according to patient size (this includes techniques or standardized protocols for targeted exams where dose is matched to indication/reason for exam; i.e. extremities or head) *Use of iterative reconstruction technique DLP: 253 mGy-cm FINDINGS: LUNG BASES: The visualized lung bases are unremarkable. No pleural or pericardial effusion. LIVER, GALLBLADDER, AND BILIARY TREE: The liver is normal in size, shape, and attenuation. No focal hepatic lesion or biliary ductal dilatation is present. The gallbladder is unremarkable with no evidence of radiopaque gallstones, gallbladder wall thickening, or obvious pericholecystic inflammatory changes. PANCREAS: Unremarkable. SPLEEN: Splenic calcified granulomas are present. ADRENAL GLANDS: Unremarkable. KIDNEYS AND URETERS: The kidneys are normal in size, shape, and attenuation. There is a 6 mm nonobstructing lower pole calculus within the right kidney. No perinephric stranding. BLADDER: Unremarkable. GASTROINTESTINAL TRACT: No free air or free fluid. No dilated loops of large or small bowel are evident. No pericolonic inflammatory change. The appendix appears unremarkable. ABDOMINAL WALL: No significant hernia is appreciated. LYMPH NODES: Normal. VASCULAR: No abdominal aortic aneurysm. No prominent calcified plaque is seen. PELVIC VISCERA: Unremarkable. OSSEOUS STRUCTURES: No suspicious destructive bony lesions identified. There are a few small scattered regions of low density throughout the spine and pelvis likely related to some degree of osteopenia. CT/CT abdomen pelvis wo IV con IMPRESSION: Old granulomatous disease. 6 mm nonobstructing right renal calculus. Fleischner guidelines were followed.
[2022-07-03] MEDS: Barium Sulfate Oral (Mocha) 450 ML ORAL.SUSP 900 ML PO (10:13)
== END 2022-07-03 07:58 | disposition home or self-care (01) ==
LOC: HO.CT 07:57
PROVIDERS: PCP Internal Medicine; Visit Provider Internal Medicine
DX: K76.0 Fatty (change of) liver, not elsewhere classified (principal); R63.4 Abnormal weight loss
CPT/HCPCS: 74176

== ENCOUNTER 2022-07-16 11:53 | Outpatient (REF) | payer MEDICAID, SELFPAY ==
--- NOTE | ~2022-07-16 | XR_ITS ---
EXAMINATION: XR THORACOLUMBAR SPINE CLINICAL INFORMATION: Gastroesophageal reflux without esophagitis COMPARISON: X-ray of the dorsal spine June 2016 TECHNIQUE: 3 views of the dorsal spine FINDINGS: The vertebral alignment is normal. No intrinsic bony abnormality. The disc heights and neural foramina are well maintained. The endplates and posterior elements are normal. No fracture or subluxation. The surrounding prevertebral soft tissues are unremarkable. Incidental note made of surgical clips overlying the right upper abdomen lower chest XR/XR thoracic spine 2V IMPRESSION: Normal examination of the dorsal spine
== END 2022-07-16 11:54 | disposition home or self-care (01) ==
LOC: HO.XRAY 11:53
PROVIDERS: PCP Internal Medicine; Visit Provider Nurse Practitioner
DX: K21.9 Gastro-esophageal reflux disease without esophagitis (principal)
CPT/HCPCS: 72070

== ENCOUNTER → 2022-07-29 11:31 | Outpatient (BNVA) | payer MEDICAID, SELFPAY | PROVIDERS: PCP Internal Medicine; Referring Provider Internal Medicine; Visit Provider Nurse Practitioner | DX: K58.2 Mixed irritable bowel syndrome (principal); K21.9 Gastro-esophageal reflux disease without esophagitis; R14.0 Abdominal distension (gaseous); R10.13 Epigastric pain; R10.11 Right upper quadrant pain; Z79.899 Other long term (current) drug therapy | CPT/HCPCS: 99212 ==

== ENCOUNTER → 2022-08-06 09:50 | Outpatient (BNVA) | payer MEDICAID, SELFPAY | PROVIDERS: PCP Internal Medicine; Visit Provider Internal Medicine Pulmonary Disease | DX: J70.1 Chronic and other pulmonary manifestations due to radiation (principal); Z91.09 Other allergy status, other than to drugs and biological substances; R06.00 Dyspnea, unspecified; Z92.3 Personal history of irradiation | CPT/HCPCS: 99212 ==

== ENCOUNTER 2022-08-08 11:30 | Observation (INO) | payer MEDICAID, SELFPAY ==
[2022-08-08 12:57] VITALS: BP 94/57; PULSE 91; RESP 16; TEMP 36.6; O2SAT 99; BMI 19.3
--- NOTE | 2022-08-08 16:09 | ECG_ITS ---
Test Reason : WEAKNESS Blood Pressure : / mmHG Vent. Rate : 069 BPM Atrial Rate : 069 BPM P-R Int : 150 ms QRS Dur : 084 ms QT Int : 370 ms P-R-T Axes : 045 051 042 degrees QTc Int : 396 ms Normal sinus rhythm Normal ECG When compared with ECG of 14-MAY-2022 08:09, No significant change was found Referred By: Ayde Kwok Electronically Signed By:ELENITA KELLY MD
[2022-08-08 16:58] LABS: Basophils Percent Auto 0.4 % (0-2); Eosinophils Absolute Auto 0.1 X10*3/uL (0.0-0.4); Eosinophils Percent Auto 2.1 % (0-4); Hematocrit 35.8 % (37.0-47.0); Imm Gran Abs Auto 0.01 X10*3/uL (0.00-0.03); Imm Gran Pct Auto 0.2 % (0.0-0.4); Lymphocytes Percent Auto 43.8 % (20-40); MANUAL DIFF FLAG NO; Mean Corpuscular HGB Conc 33.5 g/dl (31.0-35.0); Mean Corpuscular Hemoglobin 30.2 pg (27.0-33.0); Mean Corpuscular Volume 89.9 fL (80.0-98.0); Mean Platelet Volume 9.1 fL (9.4-12.3); Monocytes Absolute Auto 0.3 X10*3/uL (0.1-1.2); Monocytes Percent Auto 6.4 % (2-11); Neutrophils Absolute Auto 2.2 x10*3/uL (2.0-8.3); Neutrophils Percent Auto 47.1 % (45-73); Platelet Count 290 X10*3/uL (160-400); Red Blood Count 3.98 X10*6/uL (4.20-5.50); White Blood Count 4.7 X10*3/uL (4.8-10.8)
[2022-08-08 17:25] LABS: Alanine Aminotransferase 11 U/L (0-31); Albumin Level 4.5 g/dL (3.5-5.0); Alkaline Phosphatase 121 U/L (39-117); Anion Gap 13 (12-20); Aspartate Amino Transferase 20 U/L (5-31); Bilirubin Direct < 0.2 mg/dL (0.0-0.5); Bilirubin Total 0.2 mg/dL (0.0-1.0); Blood Urea Nitrogen 14 mg/dL (9-16); Calcium 9.8 mg/dL (8.4-10.2); Carbon Dioxide 29 mmol/L (22-29); Chloride 107 mmol/L (96-108); Creatinine Clr Calc Pharmacy 58.1; Estimated Glomerular Filt Rate > 60; Glucose Random 83 mg/dL (60-115); Potassium 4.4 mmol/L (3.3-5.1); Sodium 145 mmol/L (135-145)
[2022-08-08 17:28] LABS: Troponin-I High Sensitivity < 3.5 ng/L (<3.5-17.0)
--- NOTE | 2022-08-08 19:01 | ED.GENADULT ---
HPI - General Adult General Chief complaint: General Medical <SLIME Decker Last Filed: 08/08/22 21:37> Stated complaint: pain in L side of face/weakness/numbness in hands <SLIME Decker Last Filed: 08/08/22 21:37> Time Seen by Provider: 08/08/22 18:29 <SLIME Decker Last Filed: 08/08/22 21:37> Source: patient <SLIME Decker Last Filed: 08/08/22 21:37> Mode of arrival: ambulatory <SLIME Decker Last Filed: 08/08/22 21:37> Limitations: language barrier (vietnamese speaking only ) <SLIME Decker Last Filed: 08/08/22 21:37> History of Present Illness HPI narrative: The patient is a 57 year old female with a PMH of GERD, insomnia, IBS, breast cancer, enviromental allergies, radiation fibrosis of lung, primary osteoarthritis of right hand, fibromyalgia, hx of bilateral leg cramps and numbness and tingling of right hand presenting with left sided pain, numbness and tingling and left sided weakness affecting the left face, left shoulder and left extremity. Patient reports weakness and numbness and tingling started 2 days ago. The pain is a 9/10. The pateint also endorses chest pain that starts in the center and moves medially. The patient also endorses dizziness, a left sided unilateral headache and constipation. Of note the patient is not on any blood thinners. She was unable to elaborate on her PMH or daily medicaitons. <SLIME Decker Last Filed: 08/08/22 21:37> Onset (ago): day(s) (2) <SLIME Decker Last Filed: 08/08/22 21:37> Location: face, neck, left and upper extremity <SLIME Decker Last Filed: 08/08/22 21:37> Radiation: other (Chest pain radiates laterally left ) <SLIME Decker Last Filed: 08/08/22 21:37> Severity: severe <SLIME Decker Last Filed: 08/08/22 21:37> Severity scale (1-10): 9 <SLIME Decker - Last Filed: 08/08/22 21:37> Quality: constant and other (pins and needles ) <SLIME Decker Last Filed: 08/08/22 21:37> Pain Consistency: constant <SLIME Decker Last Filed: 08/08/22 21:37> Relieving factors: none <SLIME Decker Last Filed: 08/08/22 21:37> Exacerbating factors: movement <SLIME Decker - Last Filed: 08/08/22 21:37> Treatments prior to arrival: none <SLIME Decker Last Filed: 08/08/22 21:37> Related Data Home medications: Home Medications Medication Instructions Recorded Confirmed buspirone 15 mg tablet 15 mg PO TID 11/08/20 12/31/21 clonazepam 1 mg tablet 1 mg PO BEDTIME 11/08/20 12/31/21 olanzapine 20 mg tablet 20 mg PO BEDTIME 11/08/20 12/31/21 prazosin 2 mg capsule 2 mg PO BEDTIME 11/08/20 12/31/21 sertraline 100 mg tablet 100 mg PO DAILY 11/08/20 12/31/21 amlodipine 2.5 mg tablet 2.5 mg PO DAILY 07/16/21 07/01/22 loratadine 10 mg tablet 10 mg PO DAILY 07/16/21 12/31/21 mirtazapine 45 mg tablet 45 mg PO BEDTIME 07/16/21 12/31/21 vitamin B complex (B 1 tab PO DAILY 07/16/21 12/31/21 Complex-Vitamin B12 tablet) pregabalin 150 mg capsule 150 mg PO BID 03/24/22 07/01/22 acetaminophen 500 mg tablet 500 mg PO Q4-6H PRN 05/29/22 07/01/22 amitriptyline 50 mg tablet 50 mg PO BEDTIME 05/29/22 07/01/22 cyanocobalamin (vitamin B-12) 100 100 mcg PO DAILY 05/29/22 07/01/22 mcg tablet cyclobenzaprine 5 mg tablet 5 mg PO PRN cramps 05/29/22 07/01/22 melatonin 5 mg tablet 0 mg PO 05/29/22 nabumetone 500 mg tablet 500 mg PO BID 05/29/22 cholecalciferol (vitamin D3) 50 50 mcg PO DAILY 07/01/22 07/01/22 mcg (2,000 unit) capsule diclofenac sodium 1 % topical gel 2 g topical TID 07/29/22 Previous Rx's Medication Instructions Recorded naproxen 500 mg tablet 500 mg PO BID PRN pain #14 tabs 12/22/20 magnesium oxide 400 mg (241.3 mg 400 mg PO DAILY 30 days #30 tabs 12/31/21 magnesium) tablet lidocaine 5 % topical patch 1 patch topical DAILY #30 ea 05/14/22 ropinirole 0.25 mg tablet 0.25 mg PO TID 30 days #90 tabs 07/01/22 dicyclomine 20 mg tablet 40 mg PO QID 30 days #240 tabs 07/29/22 famotidine 40 mg tablet 40 mg PO BEDTIME #30 tabs 07/29/22 omeprazole 20 mg capsule,delayed 20 mg PO DAILY #30 caps 07/29/22 release sennosides 8.6 mg tablet (senna) 17.2 mg PO BEDTIME #60 tabs 07/29/22 simethicone 180 mg capsule 180 mg PO QID 30 days #120 caps 07/29/22 fluticasone propionate 115 2 puff PO BID #12 ea 08/01/22 mcg-salmeterol 21 mcg/actuation HFA inhaler (Advair HFA) albuterol sulfate 90 mcg/actuation 2 puff inhalation Q6H PRN for 08/06/22 aerosol inhaler (ProAir HFA) wheezing 30 days #8.5 ea <SLIME Decker - Last Filed: 08/08/22 21:37> Allergies/adverse reactions: Allergies Allergy/AdvReac Type Severity Reaction Status Date / Time codeine [CODEINE] Allergy Intermediate DIZZY/NAUSEA, Verified 08/06/22 09:52 nausea/vomiting escitalopram [From LEXAPRO] Allergy Intermediate ? NAUSEA Verified 08/06/22 09:52 meperidine [MEPERIDINE] Allergy Intermediate NAUSEA Verified 08/06/22 09:52 morphine [MORPHINE] Allergy Intermediate PALPITATIONS, Verified 08/06/22 09:52 palpitation oxycodone [OXYCODONE] Allergy Intermediate PALPATATIONS, Verified 08/06/22 09:52 palpitations tramadol Allergy Unknown dizziness, Verified 08/06/22 09:52 nausea <SLIME Decker - Last Filed: 08/08/22 21:37> Review of Systems Review of Systems: Constitutional: No Fever, No Chills ENT/Mouth: No sore throat, No Rhinorrhea, No Swallowing Difficulty Eyes: No Eye Pain, No Swelling, No Redness Cardiovascular: + Chest Pain, No SOB, No Orthopnea, No Edema Respiratory: No Cough, No Sputum, No Wheezing, No dyspnea Gastrointestinal: No Nausea, No Vomiting, No Diarrhea, No abdominal Pain, No Hematochezia, No Melena, + constipation Genitourinary: No Dysuria, No Urinary Frequency, No Hematuria Musculoskeletal: No joint pain, No Myalgias Skin: No Skin Lesions, No rash Neuro: + left sided Weakness, + left sided Numbness, + Dizziness, + Headache Heme/Lymph: + Bruising, <SLIME Decker - Last Filed: 08/08/22 21:37> Yes all other systems are reviewed and are negative <SLIME Decker - Last Filed: 08/08/22 21:37> PMFSH Past Medical History Medical History: Medical History Anxiety Fibromyalgia Periodontal disease Primary osteoarthritis of right hand <SLIME Decker - Last Filed: 08/08/22 21:37> Surgical History: Surgical History History of esophagogastroduodenoscopy (EGD) History of lumpectomy Hx of section Hx of colonoscopy Hx of shoulder surgery <SLIME Decker - Last Filed: 08/08/22 21:37> Family History Family History: Family History Mother HTN (hypertension) Sister Breast cancer Bone cancer Colon polyps Sister Osteoporosis Hypercholesteremia Colon polyps <SLIME Decker Last Filed: 08/08/22 21:37> Social History Social History: Social History (Reviewed 07/29/22 @ 11:41 by ANA LILIA Meyers Household Members: Children Housing: Apartment Are you a primary child care attendant to a significant other at home: No Do you presently have visiting nurse or other home services: Yes Alcohol intake: never Patient Tobacco Use Status: Former Tobacco user Years Smoked: 3 Use of substances other than those prescribed or required for medical reasons: No Advance Directives: No Advance Directives Information Provided: No Patient : No service: No Current occupational status: disabled 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 <SLIME Decker - Last Filed: 08/08/22 21:37> Physical Exam ED Vital Signs: Vital Signs - 24 hr 08/08/22 12:57 08/08/22 19:36 Temperature 98 F 98.3 F Pulse Rate 91 75 Respiratory Rate 16 18 Blood Pressure 94/57 L 109/60 Pulse Oximetry 99 99 Oxygen Delivery Method Room Air BMI result Body Mass Index 19.3 <SLIME Decker - Last Filed: 08/08/22 21:37> Vital Signs - 24 hr 08/08/22 12:57 08/08/22 19:36 Temperature 98 F 98.3 F Pulse Rate 91 75 Respiratory Rate 16 18 Blood Pressure 94/57 L 109/60 Pulse Oximetry 99 99 Oxygen Delivery Method Room Air BMI result Body Mass Index 19.3 <SLIME Whyte - Last Filed: 08/08/22 22:15> Appearance: Alert. Oriented X3. No acute distress. Eyes: Pupils equal, round and reactive to light. ENT: Pharynx normal. Neck: Normal inspection. Neck supple. CVS: Normal heart rate and rhythm. Pulses normal. Respiratory: No respiratory distress. Breath sounds normal. Abdomen: Soft and nontender. Skin: Skin warm and dry. Normal skin color. Normal skin turgor. No rashes. Extremities: No lower extremity edema. Neuro: Oriented X 3. No motor deficit. No sensory deficit. CN II-XII equal and intact bilaterally. Decreases sensation of left UE compared to right UE. Strength equal bilaterally. - pronator drift, - Romberg, regular cerebral alternating movements/ [id number]/ knee to foot heel , regular heel walk/toe walk/ [id number]. No Ataxia noted Regular steady gait with cane. <SLIME Decker Last Filed: 08/08/22 21:37> NIH Stroke Scale Internal: Initial- Upon Arrival <SLIME Decker - Last Filed: 08/08/22 21:37> Time: 19:17 <SLIME Decker - Last Filed: 08/08/22 21:37> Level of Consciousness: Alert <SLIME Decker - Last Filed: 08/08/22 21:37> Level of Consciousness Questions: Answers both questions correctly <SLIME Decker - Last Filed: 08/08/22 21:37> Level of Consciousness Commands: Performs both tasks correctly <SLIME Decker - Last Filed: 08/08/22 21:37> Best Gaze: Normal <SLIME Decker - Last Filed: 08/08/22 21:37> Visual: No visual loss <SLIME Decker - Last Filed: 08/08/22 21:37> Facial Palsy: Normal <SLIME Decker - Last Filed: 08/08/22 21:37> Motor Arm (Right): No drift <SLIME Decker - Last Filed: 08/08/22 21:37> Motor Arm (Left): No drift <SLIME Decker - Last Filed: 08/08/22 21:37> Motor Leg (Right): No drift <SLIME Decker - Last Filed: 08/08/22 21:37> Motor Leg (Left): No drift <SLIME Decker - Last Filed: 08/08/22 21:37> Limb Ataxia: Absent <SLIME Decker - Last Filed: 08/08/22 21:37> Sensory: Mild to moderate sensory loss <SLIME Decker - Last Filed: 08/08/22 21:37> Best Language: No aphasia <SLIME Decker - Last Filed: 08/08/22 21:37> Dysarthia: Normal <SLIME Decker - Last Filed: 08/08/22 21:37> Extinction and Inattention: No abnormality <SLIME Decker - Last Filed: 08/08/22 21:37> Score: 1 <SLIME Decker - Last Filed: 08/08/22 21:37> 1 <SLIME Whyte - Last Filed: 08/08/22 22:15> Course Course Course Narrative: 7pm - 57 year old female with a PMH of GERD, insomnia, IBS, breast cancer, enviromental allergies, radiation fibrosis of lung, primary osteoarthritis of right hand, fibromyalgia, hx of bilateral leg cramps and numbness and tingling of right hand presenting with left sided pain, numbness and tingling and left sided weakness affecting the left face, left shoulder and left extremity. Pain is a 9/10, chest pain radiates centrally to left lateral. Patient is not on blood thinners. Patient has a history of cancer. NIH stroke scale: 1 DDX: - Stroke: CT ordered to r/u - TIA: CT ordered to r/u - Thoracic outlet syndrome: CT ordered to r/u - AL/ ischemia: EKG and Troponin unremarkable Plan: -CT of head and neck to rule out stroke and TIA signed out to night provider who will assume care <SLIME Decker - Last Filed: 08/08/22 21:37> Reevaluation(s) Reevaluation #1: CT angio of the head and neck with no evidence of acute intracranial hemorrhage or edematous territorial infarction, CT of the head and neck without proximal occlusion or flow-limiting stenosis. <SLIME Whyte - Last Filed: 08/08/22 22:15> Time: 22:10 <SLIME Whyte - Last Filed: 08/08/22 22:15> Reevaluation #2: Spoke to hospitalist will admit patient at this time for further intervention and treatment, concerns for possible TIA. <SLIME Whyte Last Filed: 08/08/22 22:15> Time: 22:14 <SLIME Whyte Last Filed: 08/08/22 22:15> Medical Decision Making Lab Data Result diagrams: : 08/08/22 16:46 08/08/22 16:46 <SLIME Decker Last Filed: 08/08/22 21:37> Labs: Lab Results 08/08/22 08/08/2208/08/22 Range/Units 16:46 16:46 16:46 WBC 4.7 L (4.8-10.8) X10*3/uL RBC 3.98 L (4.20-5.50) X10*6/uL Hgb 12.0 (12.0-16.0) g/dl Hct 35.8 L (37.0-47.0) % MCV 89.9 (80.0-98.0) fL MCH 30.2 (27.0-33.0) pg MCHC 33.5 (31.0-35.0) g/dl RDW 14.0 (11.0-16.0) % Plt Count 290 (160-400) X10*3/uL MPV 9.1 L (9.4-12.3) fL Immature Gran % (Auto) 0.2 (0.0-0.4) % Neut % (Auto) 47.1 (45-73) % Lymph % (Auto) 43.8 H (20-40) % [place] % (Auto) 6.4 (2-11) % Eos % (Auto) 2.1 (0-4) % Baso % (Auto) 0.4 (0-2) % Lymph # (Auto) 2.0 (1.2-4.9) X10*3/uL [place] # (Auto) 0.3 (0.1-1.2) X10*3/uL Eos # (Auto) 0.1 (0.0-0.4) X10*3/uL Baso # (Auto) 0.0 (0.0-0.2) X10*3/uL Abs Immat Gran (auto) 0.01 (0.00-0.03) X10*3/uL Absolute Neuts (auto) 2.2 (2.0-8.3) x10*3/uL Absolute Nucleated RBC 0.000 (0.0-0.012) X10*3/uL Nucleated RBC % (auto) 0.0 (0.0-0.2) /100WBC Sodium 145 (135-145) mmol/L Potassium 4.4 (3.3-5.1) mmol/L Chloride 107 (96-108) mmol/L Carbon Dioxide 29 (22-29) mmol/L Anion Gap 13 (12-20) BUN 14 (9-16) mg/dL Creatinine 0.79 (0.5-1.4) mg/dL Estim Creat Clear Calc 58.1 Estimated GFR > 60 Random Glucose 83 (60-115) mg/dL Calcium 9.8 (8.4-10.2) mg/dL Total Bilirubin 0.2 (0.0-1.0) mg/dL Direct Bilirubin < 0.2 (0.0-0.5) mg/dL AST 20 (5-31) U/L ALT 11 (0-31) U/L Alkaline Phosphatase 121 H (39-117) U/L Troponin I High Sens < 3.5 (<3.5-17.0) ng/L Total Protein 7.0 (6.5-8.0) g/dL Albumin 4.5 (3.5-5.0) g/dL <SLIME Decker - Last Filed: 08/08/22 21:37> Lab Results 08/08/22 08/08/22 08/08/22 Range/Units 16:46 16:46 16:46 WBC 4.7 L (4.8-10.8) X10*3/uL RBC 3.98 L (4.20-5.50) X10*6/uL Hgb 12.0 (12.0-16.0) g/dl Hct 35.8 L (37.0-47.0) % MCV 89.9 (80.0-98.0) fL MCH 30.2 (27.0-33.0) pg MCHC 33.5 (31.0-35.0) g/dl RDW 14.0 (11.0-16.0) % Plt Count 290 (160-400) X10*3/uL MPV 9.1 L (9.4-12.3) fL Immature Gran % (Auto) 0.2 (0.0-0.4) % Neut % (Auto) 47.1 (45-73) % Lymph % (Auto) 43.8 H (20-40) % [place] % (Auto) 6.4 (2-11) % Eos % (Auto) 2.1 (0-4) % Baso % (Auto) 0.4 (0-2) % Lymph # (Auto) 2.0 (1.2-4.9) X10*3/uL [place] # (Auto) 0.3 (0.1-1.2) X10*3/uL Eos # (Auto) 0.1 (0.0-0.4) X10*3/uL Baso # (Auto) 0.0 (0.0-0.2) X10*3/uL Abs Immat Gran (auto) 0.01 (0.00-0.03) X10*3/uL Absolute Neuts (auto) 2.2 (2.0-8.3) x10*3/uL Absolute Nucleated RBC 0.000 (0.0-0.012) X10*3/uL Nucleated RBC % (auto) 0.0 (0.0-0.2) /100WBC Sodium 145 (135-145) mmol/L Potassium 4.4 (3.3-5.1) mmol/L Chloride 107 (96-108) mmol/L Carbon Dioxide 29 (22-29) mmol/L Anion Gap 13 (12-20) BUN 14 (9-16) mg/dL Creatinine 0.79 (0.5-1.4) mg/dL Estim Creat Clear Calc 58.1 Estimated GFR > 60 Random Glucose 83 (60-115) mg/dL Calcium 9.8 (8.4-10.2) mg/dL Total Bilirubin 0.2 (0.0-1.0) mg/dL Direct Bilirubin < 0.2 (0.0-0.5) mg/dL AST 20 (5-31) U/L ALT 11 (0-31) U/L Alkaline Phosphatase 121 H (39-117) U/L Troponin I High Sens < 3.5 (<3.5-17.0) ng/L Total Protein 7.0 (6.5-8.0) g/dL Albumin 4.5 (3.5-5.0) g/dL <SLIME Whyte - Last Filed: 08/08/22 22:15> ECG Data Attestation: I personally reviewed and interpreted this ECG as follows: <SLIME Decker - Last Filed: 08/08/22 21:37> Prior ECG tracings: available for review <SLIME Decker Last Filed: 08/08/22 21:37> Interpretation: normal sinus rhythm, HR 69 bpm, normal MA interval, normal QTc, no st segment elevations or depressions <SLIME Decker Last Filed: 08/08/22 21:37> Critical Care Time Critical Care Time Critical Care Time: No <SLIME Decker Last Filed: 08/08/22 21:37> Discharge Plan Discharge Clinical Impression: Left arm numbness, Left-sided weakness <SLIME Decker Last Filed: 08/08/22 21:37> Patient Disposition: Admitted As Inpatient <SLIME Decker Last Filed: 08/08/22 21:37> Prescriptions: No Action Advair HFA 115-21 mcg/actuation HFA aerosol inhaler 2 puff PO BID Qty: 12 6RF naproxen 500 mg tablet 500 mg PO BID PRN (Reason: pain) Qty: 14 0RF lidocaine 5 % adhesive patch,medicated 1 patch topical DAILY Qty: 30 0RF Rx Instructions: leave on most painful area for up to 12 hrs vitamin B complex [B Complex-Vitamin B12] Tablet 1 tab PO DAILY loratadine 10 mg tablet 10 mg PO DAILY amlodipine 2.5 mg tablet 2.5 mg PO DAILY mirtazapine 45 mg tablet 45 mg PO BEDTIME buspirone 15 mg tablet 15 mg PO TID sertraline 100 mg tablet 100 mg PO DAILY olanzapine 20 mg tablet 20 mg PO BEDTIME clonazepam 1 mg tablet 1 mg PO BEDTIME Rx Instructions: administer 30 minutes before bedtime prazosin 2 mg capsule 2 mg PO BEDTIME magnesium oxide 400 mg (241.3 mg magnesium) tablet 400 mg PO DAILY 30 Days Qty: 30 6RF albuterol sulfate [ProAir HFA] 90 mcg/actuation HFA aerosol inhaler 2 puff inhalation Q6H PRN (Reason: for wheezing) 30 Days Qty: 8.5 6RF pregabalin 150 mg capsule 150 mg PO BID amitriptyline 50 mg tablet 50 mg PO BEDTIME cyanocobalamin (vitamin B-12) 100 mcg tablet 100 mcg PO DAILY melatonin 5 mg tablet 0 mg PO cyclobenzaprine 5 mg tablet 5 mg PO PRN (Reason: cramps) acetaminophen 500 mg tablet 500 mg PO Q4-6H PRN nabumetone 500 mg tablet 500 mg PO BID cholecalciferol (vitamin D3) 50 mcg (2,000 unit) capsule 50 mcg PO DAILY ropinirole 0.25 mg tablet 0.25 mg PO TID 30 Days Qty: 90 3RF Rx Instructions: take in the evening diclofenac sodium 1 % gel 2 g topical TID omeprazole 20 mg capsule,delayed release(DR/EC) 20 mg PO DAILY Qty: 30 6RF sennosides [senna] 8.6 mg tablet 17.2 mg PO BEDTIME Qty: 60 6RF Rx Instructions: TWO tablets every night, not one as she was told by the phamacist. simethicone 180 mg capsule 180 mg PO QID 30 Days Qty: 120 6RF Rx Instructions: after meals famotidine 40 mg tablet 40 mg PO BEDTIME Qty: 30 6RF dicyclomine 20 mg tablet 40 mg PO QID 30 Days Qty: 240 3RF <SLIME Decker - Last Filed: 08/08/22 21:37>
[2022-08-08 19:36] VITALS: BP 109/60; PULSE 75; RESP 18; TEMP 36.8; O2SAT 99
--- NOTE | 2022-08-08 20:06 | PC.NURSE ---
Addendum entered by Nidhi Ortega 08/08/22 20:57: note entered on wrong patient. Original Note: c/o upper abd pain, mouth of the stomach x 1 month. radiates to lower back . c/o vomiting and chills. no active vomiting. denies nausea at this time. moist mm. abd non tender.
--- NOTE | 2022-08-08 20:59 | PC.NURSE ---
c/o left sided facial pain radiating to left. arm. denies weakness. no palmar drift. no unilat neuro deficits.
[2022-08-08] MEDS: iohexoL 350 MG/ML 100 ML INFUS..BTL IV (21:05)
[2022-08-08 22:00] VITALS: BP 114/55; PULSE 70; RESP 16; TEMP 37; O2SAT 98
--- NOTE | 2022-08-08 23:49 | PM.IMHP ---
History of Present Illness Date of Service: 08/08/22 Chief Complaint: Neck/arm pain and tingling Burkinan-speaking only, history is obtained with the help of an innovations paraprofessional 57-year-old female with past medical history of fibromyalgia, GERD, anxiety and depression, osteoarthritis, history of right breast cancer status post lumpectomy, IBS, presents to the hospital with complaints of left-sided upper extremity, head, face pain. She reports the pain as shooting pain, associated with weakness and tingling in her arm. She reports that she also has pain in her neck, radiating to her arm on the left side, she reports heat intolerance, shooting pain down her left arm, no numbness or tingling in the right upper extremity or lower extremities. No previous similar episode. She reports pain in her eye, no difficulty with swallowing or chewing. No jaw pain. Denies any chest pain, shortness of breath, no abdominal pain nausea or vomiting, no diarrhea constipation, no urinary symptoms and no lower extremity edema. On arrival to the ED patient hemodynamically stable but most significant abnormality Labs are significant for WBC count of 4.7, hemoglobin of 12, hematocrit of 35.8, labs otherwise unremarkable, COVID-19 negative, Head and neck CT angiogram shows no evidence of acute intracranial hemorrhage read med of stertor infarction, CTA of the head and neck without proximal occlusion or flow-limiting stenosis Review of Systems Review of Systems: Yes all other systems are reviewed and are negative [facility] Medical History Anxiety Fibromyalgia Periodontal disease Primary osteoarthritis of right hand Family History Mother HTN (hypertension) Sister Breast cancer Bone cancer Colon polyps Sister Osteoporosis Hypercholesteremia Colon polyps Surgical History History of esophagogastroduodenoscopy (EGD) History of lumpectomy Hx of section Hx of colonoscopy Hx of shoulder surgery Social History Household Members: Children Housing: Apartment Are you a primary home health care case manager to a significant other at home: No Do you presently have visiting nurse or other home services: Yes Alcohol intake: never Patient Tobacco Use Status: Former Tobacco user Years Smoked: 3 Use of substances other than those prescribed or required for medical reasons: No Advance Directives: No Advance Directives Information Provided: No Patient : No service: No Current occupational status: disabled 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 NAUSEA Verified 08/06/22 09:52 meperidine [MEPERIDINE] Allergy Intermediate NAUSEA Verified 08/06/22 09:52 morphine [MORPHINE] Allergy Intermediate PALPITATIONS, Verified 08/06/22 09:52 palpitation oxycodone [OXYCODONE] Allergy Intermediate PALPATATIONS, Verified 08/06/22 09:52 palpitations tramadol Allergy Unknown dizziness, Verified 08/06/22 09:52 nausea Active Medications: Current Medications Pharmacy Consult (Consult Rx Perform Med Rec) 1 each MISCELLANE ONCE PRN PRN Reason: Consult order Home Medications Medication Instructions Recorded Confirmed Last Taken Type buspirone 15 mg tablet 15 mg PO TID 11/08/20 12/31/21 Unknown History clonazepam 1 mg tablet 1 mg PO BEDTIME 11/08/20 12/31/21 Unknown History olanzapine 20 mg tablet 20 mg PO BEDTIME 11/08/20 12/31/21 Unknown History prazosin 2 mg capsule 2 mg PO BEDTIME 11/08/20 12/31/21 Unknown History sertraline 100 mg tablet 100 mg PO DAILY 11/08/20 12/31/21 Unknown History amlodipine 2.5 mg tablet 2.5 mg PO DAILY 07/16/21 07/01/22 Unknown History loratadine 10 mg tablet 10 mg PO DAILY 07/16/21 12/31/21 Unknown History mirtazapine 45 mg tablet 45 mg PO BEDTIME 07/16/21 12/31/21 Unknown History vitamin B complex (B 1 tab PO DAILY 07/16/21 12/31/21 Unknown History Complex-Vitamin B12 tablet) pregabalin 150 mg capsule 150 mg PO BID 03/24/22 07/01/22 Unknown History acetaminophen 500 mg tablet 500 mg PO Q4-6H PRN 05/29/22 07/01/22 Unknown History amitriptyline 50 mg tablet 50 mg PO BEDTIME 05/29/22 07/01/22 Unknown History cyanocobalamin (vitamin B-12) 100 100 mcg PO DAILY 05/29/22 07/01/22 Unknown History mcg tablet cyclobenzaprine 5 mg tablet 5 mg PO PRN cramps 05/29/22 07/01/22 Unknown History melatonin 5 mg tablet 0 mg PO 05/29/22 Unknown History nabumetone 500 mg tablet 500 mg PO BID 05/29/22 Unknown History cholecalciferol (vitamin D3) 50 50 mcg PO DAILY 07/01/22 07/01/22 Unknown History mcg (2,000 unit) capsule diclofenac sodium 1 % topical gel 2 g topical TID 07/29/22 Unknown History Physical Exam Vital Signs and Narrative: Vital Signs: Last Vital Signs Temp 98.6 F 08/08/22 22:00 Pulse 70 08/08/22 22:00 Resp 16 08/08/22 22:00 BP 114/55 L 08/08/22 22:00 Pulse Ox 98 08/08/22 22:00 O2 Del Method 08/08/22 22:00 BMI result Body Mass Index 19.3 Const: General: cooperative and no acute distress Orientation/consciousness: patient oriented x3 Eyes: General: appearance normal, both eyes and all related structures Resp: Effort & Inspection: normal respiratory effort Auscultation: clear to auscultation bilaterally Cardio: Rate: regular rate Rhythm: regular rhythm GI: Palpation (GI): Soft to palpation Auscultation: normal bowel sounds Skin: General skin exam: no rashes or lesions noted Neuro: Other: No neurological deficits Cranial nerves 2-12 intact Strength 5/5 in all extremity General: patient oriented x3 Cognition (Neuro): normal cognition Extrem: General: Yes normal to inspection and Yes no pedal edema Results Labs CBC and Chem 7: 08/08/22 16:46 08/08/22 16:46 Labs: Laboratory Results - last 24 hr 08/08/22 08/08/22 08/08/22 16:46 16:46 16:46 MCV 89.9 MCH 30.2 MCHC 33.5 RDW 14.0 Plt Count 290 MPV 9.1 L Immature Gran % (Auto) 0.2 Neut % (Auto) 47.1 Lymph % (Auto) 43.8 H [place] % (Auto) 6.4 Eos % (Auto) 2.1 Baso % (Auto) 0.4 Lymph # (Auto) 2.0 [place] # (Auto) 0.3 Eos # (Auto) 0.1 Baso # (Auto) 0.0 Abs Immat Gran (auto) 0.01 Absolute Neuts (auto) 2.2 Absolute Nucleated RBC 0.000 Nucleated RBC % (auto) 0.0 Anion Gap 13 Estim Creat Clear Calc 58.1 Estimated GFR > 60 Random Glucose 83 Calcium 9.8 Total Bilirubin 0.2 Direct Bilirubin < 0.2 AST 20 ALT 11 Alkaline Phosphatase 121 H Troponin I High Sens < 3.5 Total Protein 7.0 Albumin 4.5 Imaging Radiologist's Impressions: Impressions Head/Neck CTA 08/08/22 21:15 IMPRESSION: 1. No evidence of acute intracranial hemorrhage or edematous territorial infarction. 2. CTA of the head and neck without proximal occlusion or flow-limiting stenosis. Assessment and Plan (1) Left arm numbness: Status: Acute (2) Left-sided weakness: Status: Acute (3) Headache: Status: Acute (4) Neck pain: Status: Acute Plan 57-year-old female who presents to the hospital with complaints of left arm pain, weakness and tingling # left arm numbness/tingling, weakness as well as pain - vague symptoms, differentials are broad, possibly secondary to cervical radiculopathy versus MS given the pain in her left eye as well as intolerance to heat had shooting pain on her arm - at this time will obtain MRI of the cervical spine as well as head - neurology consulted for further evaluation - supportive measures # headache - localized to the left of the head along with neck pain - likely secondary to cervical radiculopathy as well - MRI scheduled # fibromyalgia - continue amitriptyline # hypertension - continue amlodipine # depression anxiety - continue home mood stabilizers DVT prophylaxis: Early ambulation Quality Stroke Does the patient have a stroke diagnosis?: No VTE Prior VTE?: No VTE Risk Level:: Medical - low VTE Device Contraindication: Treatment Not Indicated VTE Drug Contraindication: Treatment Not Indicated
[2022-08-09 03:24] VITALS: BP 116/60; PULSE 88; RESP 17; TEMP 36.6; O2SAT 99
[2022-08-09] MEDS: Acetaminophen 325 MG TABLET 650 MG PO ×2 (03:29→09:22)
[2022-08-09 03:45] LABS: COVID-19 Test Negative (Negative)
[2022-08-09 06:56] LABS: MANUAL DIFF FLAG NO
[2022-08-09 07:15] LABS: Basophils Percent Auto 0.6 % (0-2); Eosinophils Absolute Auto 0.1 X10*3/uL (0.0-0.4); Eosinophils Percent Auto 1.9 % (0-4); Hemoglobin 12.8 g/dl (12.0-16.0); Imm Gran Abs Auto 0.01 X10*3/uL (0.00-0.03); Imm Gran Pct Auto 0.2 % (0.0-0.4); Lymphocytes Absolute Auto 1.8 X10*3/uL (1.2-4.9); Lymphocytes Percent Auto 35.5 % (20-40); Mean Corpuscular HGB Conc 32.8 g/dl (31.0-35.0); Mean Corpuscular Hemoglobin 29.8 pg (27.0-33.0); Mean Corpuscular Volume 90.9 fL (80.0-98.0); Mean Platelet Volume 9.4 fL (9.4-12.3); Monocytes Absolute Auto 0.3 X10*3/uL (0.1-1.2); Monocytes Percent Auto 5.5 % (2-11); Neutrophils Absolute Auto 2.9 x10*3/uL (2.0-8.3); Neutrophils Percent Auto 56.3 % (45-73); Platelet Count 299 X10*3/uL (160-400); Red Blood Count 4.29 X10*6/uL (4.20-5.50); Red Cell Distribution Width 13.8 % (11.0-16.0); White Blood Count 5.1 X10*3/uL (4.8-10.8)
[2022-08-09 07:34] LABS: Anion Gap 15 (12-20); Blood Urea Nitrogen 11 mg/dL (9-16); Calcium 9.6 mg/dL (8.4-10.2); Carbon Dioxide 25 mmol/L (22-29); Chloride 107 mmol/L (96-108); Creatinine Clr Calc Pharmacy 62.1; Estimated Glomerular Filt Rate > 60; Glucose Random 72 mg/dL (60-115); Potassium 4.3 mmol/L (3.3-5.1); Sodium 143 mmol/L (135-145)
[2022-08-09 08:11] VITALS: BP 97/50; PULSE 78; RESP 16; TEMP 36.6; O2SAT 99
--- NOTE | 2022-08-09 08:58 | PHA.MEDREC ---
Pharmacy Consult ? Medication Reconciliation Pharmacy has completed the medication reconciliation.
[2022-08-09 10:21] VITALS: BP 97/50; PULSE 78; O2SAT 99
--- NOTE | 2022-08-09 10:21 | MHC.CM.PN ---
Patient lives with her Daughter and uses a cane. 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 Patient has received [employer] vax x2.
--- NOTE | 2022-08-09 10:35 | PM.NEUROCN ---
History of Present Illness Data of Consult Service Date: 08/09/22 Primary Care Provider: Umm Coley MD HPI Reason for consult: Left-sided head and neck pain 57 years old woman with underlying history of migraine and complaints of burning discomfort in different areas of her body with a normal EMG nerve conduction study of all 4 extremities in July of 2021 came to hospital with headache and left-sided head neck face arm and chest pain. She was still having some headache. It started few days ago. She also felt some tingling and numbness in left hand. She has been seeing Dr. Sands who prescribed Lyrica for this type of symptoms. She also suffered from depression and anxiety. She stated that she also suffered from migraine and was having many migraines or headaches in a month. Review of Systems Review of Systems: No recent trauma or cold or flu-like illness PMFSH Past Medical History Medical History Anxiety Fibromyalgia Periodontal disease Primary osteoarthritis of right hand Family History Family History Mother HTN (hypertension) Sister Breast cancer Bone cancer Colon polyps Sister Osteoporosis Hypercholesteremia Colon polyps Surgical History Surgical History History of esophagogastroduodenoscopy (EGD) History of lumpectomy Hx of section Hx of colonoscopy Hx of shoulder surgery Social History Social History Household Members: Children Housing: Apartment Are you a primary managed care nurse to a significant other at home: No Do you presently have visiting nurse or other home services: Yes Alcohol intake: never Patient Tobacco Use Status: Former Tobacco user Years Smoked: 3 Use of substances other than those prescribed or required for medical reasons: No Advance Directives: No Advance Directives Information Provided: No Patient : No service: No Current occupational status: disabled 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 NAUSEA Verified 08/06/22 09:52 meperidine [MEPERIDINE] Allergy Intermediate NAUSEA Verified 08/06/22 09:52 morphine [MORPHINE] Allergy Intermediate PALPITATIONS, Verified 08/06/22 09:52 palpitation oxycodone [OXYCODONE] Allergy Intermediate PALPATATIONS, Verified 08/06/22 09:52 palpitations tramadol Allergy Unknown dizziness, Verified 08/06/22 09:52 nausea Active Medications: Current Medications Acetaminophen (Acetaminophen 325 Mg Tablet) 650 mg PO Q6H PRN PRN Reason: Pain, Mild (Pain Scale 1-3) Last Admin: 08/09/22 09:22 Dose: 650 mg Docusate Sodium (Docusate Sodium 100 Mg Capsule) 100 mg PO DAILY PRN PRN Reason: Constipation Ondansetron HCl (Ondansetron Hcl 4 Mg/2 Ml Vial) 4 mg IVPUSH Q8H PRN PRN Reason: Nausea and Vomiting Pharmacy Consult (Consult Rx Perform Med Rec) 1 each MISCELLANE ONCE PRN PRN Reason: Consult order Home Medications Medication Instructions Recorded Confirmed Last Taken Type buspirone 15 mg tablet 15 mg PO TID 11/08/20 08/09/22 Unknown History clonazepam 1 mg tablet 1 mg PO BID PRN Anxiety 11/08/20 08/09/22 Unknown History olanzapine 20 mg tablet 20 mg PO BEDTIME 11/08/20 08/09/22 Unknown History prazosin 2 mg capsule 4 mg PO BEDTIME 11/08/20 08/09/22 Unknown History sertraline 100 mg tablet 200 mg PO DAILY 11/08/20 08/09/22 Unknown History amlodipine 2.5 mg tablet 2.5 mg PO DAILY 07/16/21 08/09/22 Unknown History loratadine 10 mg tablet 10 mg PO DAILY 07/16/21 08/09/22 Unknown History mirtazapine 45 mg tablet 45 mg PO BEDTIME 07/16/21 08/09/22 Unknown History pregabalin 150 mg capsule 150 mg PO BID 03/24/22 08/09/22 Unknown History acetaminophen 500 mg tablet 500 mg PO Q4-6H PRN Pain, Mild 05/29/22 08/09/22 Unknown History amitriptyline 50 mg tablet 50 mg PO BEDTIME 05/29/22 08/09/22 Unknown History cyanocobalamin (vitamin B-12) 100 100 mcg PO DAILY 05/29/22 08/09/22 Unknown History mcg tablet melatonin 5 mg tablet 10 mg PO BEDTIME PRN Sleep 05/29/22 08/09/22 Unknown History nabumetone 500 mg tablet 500 mg PO BID 05/29/22 08/09/22 Unknown History cholecalciferol (vitamin D3) 50 50 mcg PO DAILY 07/01/22 08/09/22 Unknown History mcg (2,000 unit) capsule diclofenac sodium 1 % topical gel 2 g topical TID 07/29/22 08/09/22 Unknown History cyclobenzaprine 10 mg tablet 10 mg PO TID PRN Muscle Spasm 08/09/22 08/09/22 Unknown History Physical Exam Vital Signs: Vital Signs: Last Vital Signs Temp 97.9 F 08/09/22 08:11 Pulse 78 08/09/22 08:11 Resp 16 08/09/22 08:11 BP 97/50 L 08/09/22 08:11 Pulse Ox 99 08/09/22 08:11 O2 Del Method 08/09/22 08:11 BMI result Body Mass Index 19.3 Neuro: Other: she was alert and awake with normal spontaneity of speech fluency comprehension and flat affect. Into was performed with the help of an process technician. Face was symmetrical. There was no pronator drift. Deep tendon reflexes are 1+ with flexor plantars. Visual medina are full. Results Labs CBC & Chem 7: 08/09/22 06:33 08/09/22 06:33 Labs: Short CBC 08/08/22 08/09/22 Range/Units 16:46 06:33 WBC 4.7 L 5.1 (4.8-10.8) X10*3/uL Hgb 12.0 12.8 (12.0-16.0) g/dl Hct 35.8 L 39.0 (37.0-47.0) % Plt Count 290 299 (160-400) X10*3/uL BMP 08/08/22 08/09/22 16:46 06:33 Sodium 145 143 Potassium 4.4 4.3 Chloride 107 107 Carbon Dioxide 29 25 BUN 14 11 Creatinine 0.79 0.74 Calcium 9.8 9.6 Liver Function 08/08/22 Range/Units 16:46 Total Bilirubin 0.2 (0.0-1.0) mg/dL Direct Bilirubin < 0.2 (0.0-0.5) mg/dL AST 20 (5-31) U/L ALT 11 (0-31) U/L Alkaline Phosphatase 121 H (39-117) U/L Albumin 4.5 (3.5-5.0) g/dL CTA of brain and neck were perform which reported no vascular lesion. Mild cortical frontoparietal atrophy was noted. Assessment and Plan (1) Migraine: Status: Acute (2) Migraine equivalent syndrome: Status: Acute 57 years old woman with underlying depression, migraine, and likely somewhat eyes a [place] disorder resulting in multiple symptoms. Because of frequent headaches, I would recommend P.r.n. sumatriptan or Fioricet. Mainstay of management is reassurance, education, counseling, and appropriate treatment of depression. (3) Somatization disorder: Status: Acute (4) Depression: Status: Acute Procedures Date of Service Date of Service: 08/09/22
--- NOTE | 2022-08-09 15:24 | PC.NURSE ---
report given to [facility] [place]
--- NOTE | 2022-08-09 15:30 | PM.DS ---
DS: Providers Provider Date of Service: 08/09/22 Date of admission: 08/08/22 23:47 Primary care physician: Umm Coley MD Consults: 08/09/22 08:37 Consult to Neurology Routine Consulting Provider: [facility] Reason for consultation: left arm numbness/tingling, weakness as well as pain DS: Diagnosis Discharge Diagnosis (1) Migraine: Status: Acute (2) Migraine equivalent syndrome: Status: Acute (3) Somatization disorder: Status: Acute (4) Depression: Status: Acute (5) Left arm numbness: Status: Acute DS: Summary Hospital Course Hospital Course: Admission note HPI 57-year-old female with past medical history of fibromyalgia, GERD, anxiety and depression, osteoarthritis, history of right breast cancer status post lumpectomy, IBS, presents to the hospital with complaints of left-sided upper extremity, head, face pain.? She reports the pain as shooting pain, associated with weakness and tingling in her arm.? She reports that she also has pain in her neck, radiating to her arm on the left side, she reports heat intolerance, shooting pain down her left arm, no numbness or tingling in the right upper extremity or lower extremities.? No previous similar episode.? She reports pain in her eye, no difficulty with swallowing or chewing.? No jaw pain. Denies any chest pain, shortness of breath, no abdominal pain nausea or vomiting, no diarrhea constipation, no urinary symptoms and no lower extremity edema.? On arrival to the ED patient hemodynamically stable but most significant abnormality Labs are significant for WBC count of 4.7, hemoglobin of 12, hematocrit of 35.8, labs otherwise unremarkable, COVID-19 negative, Head and neck CT angiogram shows no evidence of acute intracranial hemorrhage read med of stertor infarction, CTA of the head and neck without proximal occlusion or flow-limiting stenosis Hospital course The patient was monitored under observation for reported headache, left upper extremity numbness and weakness. Images including CT scan of the head, MRI of the head and neck were all negative for any acute findings. Evaluated by neurologist who recommended treatment with Fioricet or sumatriptan as needed for migraine equivalent syndrome with somatization disorder. Time Spent with Patient Time attestation: Total time spent providing and/or coordinating discharge services: Discharge coordination time: Less than 30 minutes Quality: Safe Use of Opioids Does Pt have an Active Cancer Diagnosis on the Problem List?: No Quality: Stroke Does the patient have a stroke diagnosis?: No Physical Exam Vital Signs: Vital Signs: Last Vital Signs Temp 97.9 F 08/09/22 08:11 Pulse 78 08/09/22 10:21 Resp 16 08/09/22 08:11 BP 97/50 L 08/09/22 10:21 Pulse Ox 99 08/09/22 10:21 O2 Del Method 08/09/22 08:11 BMI result Body Mass Index 19.3 Const: Other: Constitutional : Alert, oriented, not in distress Neck : Normal inspection, Supple Cardiovascular : RRR, no JVP, no lower extremity edema Respiratory : fair bilateral air entry, no crackles, wheezes or rhonchi Gastrointestinal: soft, lax, Normal bowel sounds, Non tender Skin : Warm, Dry Neurological : Alert & oriented x3, No focal deficit , CN 2-12 within normal DS: Data Data Completed and Pending Labs on day of discharge: Laboratory Results - last 24 hr 08/08/22 08/08/22 08/08/22 16:46 16:46 16:46 WBC 4.7 L RBC 3.98 L Hgb 12.0 Hct 35.8 L MCV 89.9 MCH 30.2 MCHC 33.5 RDW 14.0 Plt Count 290 MPV 9.1 L Immature Gran % (Auto) 0.2 Neut % (Auto) 47.1 Lymph % (Auto) 43.8 H [place] % (Auto) 6.4 Eos % (Auto) 2.1 Baso % (Auto) 0.4 Lymph # (Auto) 2.0 [place] # (Auto) 0.3 Eos # (Auto) 0.1 Baso # (Auto) 0.0 Abs Immat Gran (auto) 0.01 Absolute Neuts (auto) 2.2 Absolute Nucleated RBC 0.000 Nucleated RBC % (auto) 0.0 Sodium 145 Potassium 4.4 Chloride 107 Carbon Dioxide 29 Anion Gap 13 BUN 14 Creatinine 0.79 Estim Creat Clear Calc 58.1 Estimated GFR > 60 Random Glucose 83 Calcium 9.8 Total Bilirubin 0.2 Direct Bilirubin < 0.2 AST 20 ALT 11 Alkaline Phosphatase 121 H Troponin I High Sens < 3.5 Total Protein 7.0 Albumin 4.5 COVID-19 (MILA) COVID-19 Clin Com 08/09/22 08/09/22 08/09/22 03:26 06:33 06:33 WBC 5.1 RBC 4.29 Hgb 12.8 Hct 39.0 MCV 90.9 MCH 29.8 MCHC 32.8 RDW 13.8 Plt Count 299 MPV 9.4 Immature Gran % (Auto) 0.2 Neut % (Auto) 56.3 Lymph % (Auto) 35.5 [place] % (Auto) 5.5 Eos % (Auto) 1.9 Baso % (Auto) 0.6 Lymph # (Auto) 1.8 [place] # (Auto) 0.3 Eos # (Auto) 0.1 Baso # (Auto) 0.0 Abs Immat Gran (auto) 0.01 Absolute Neuts (auto) 2.9 Absolute Nucleated RBC 0.000 Nucleated RBC % (auto) 0.0 Sodium 143 Potassium 4.3 Chloride 107 Carbon Dioxide 25 Anion Gap 15 BUN 11 Creatinine 0.74 Estim Creat Clear Calc 62.1 Estimated GFR > 60 Random Glucose 72 Calcium 9.6 Total Bilirubin Direct Bilirubin AST ALT Alkaline Phosphatase Troponin I High Sens Total Protein Albumin COVID-19 (MILA) Negative COVID-19 Clin Com See Note Imaging MRI - head: Radiologist's impression: ITS Impressions Head/Neck CTA 08/08/22 21:15 IMPRESSION: 1. No evidence of acute intracranial hemorrhage or edematous territorial infarction. 2. CTA of the head and neck without proximal occlusion or flow-limiting stenosis. Brain MRI 08/09/22 13:45 IMPRESSION: 1. No acute intracranial abnormalities. No abnormal intracranial enhancement. 2. Minimal underlying microangiopathy. 3. No demonstrated cervical spinal canal stenosis or nerve root compression. No abnormal enhancement of the cervical spinal cord. Cervical Spine MRI 08/09/22 13:45 IMPRESSION: 1. No acute intracranial abnormalities. No abnormal intracranial enhancement. 2. Minimal underlying microangiopathy. 3. No demonstrated cervical spinal canal stenosis or nerve root compression. No abnormal enhancement of the cervical spinal cord. Discharge Plan Discharge Patient Disposition: Home Health Service Discharge Diagnosis: Migraine equivalent syndrome Referrals: Umm Coley MD [Primary Care Provider] - 1 Week Discharge Medications: New sumatriptan succinate 50 mg Tablet 50 mg PO DAILY PRN (Reason: Headache) Qty: 14 0RF [id number] 50-325-40 mg Tablet 1 tab PO Q6H PRN (Reason: Headache) Qty: 30 0RF Continued Advair HFA 115-21 mcg/actuation HFA aerosol inhaler 2 puff PO BID Qty: 12 6RF cyclobenzaprine 10 mg tablet 10 mg PO TID PRN (Reason: Muscle Spasm) loratadine 10 mg tablet 10 mg PO DAILY amlodipine 2.5 mg tablet 2.5 mg PO DAILY mirtazapine 45 mg tablet 45 mg PO BEDTIME buspirone 15 mg tablet 15 mg PO TID sertraline 100 mg tablet 200 mg PO DAILY olanzapine 20 mg tablet 20 mg PO BEDTIME clonazepam 1 mg tablet 1 mg PO BID PRN (Reason: Anxiety) prazosin 2 mg capsule 4 mg PO BEDTIME magnesium oxide 400 mg (241.3 mg magnesium) tablet 400 mg PO DAILY 30 Days Qty: 30 6RF albuterol sulfate [ProAir HFA] 90 mcg/actuation HFA aerosol inhaler 2 puff inhalation Q6H PRN (Reason: for wheezing) 30 Days Qty: 8.5 6RF pregabalin 150 mg capsule 150 mg PO BID amitriptyline 50 mg tablet 50 mg PO BEDTIME cyanocobalamin (vitamin B-12) 100 mcg tablet 100 mcg PO DAILY melatonin 5 mg tablet 10 mg PO BEDTIME PRN (Reason: Sleep) acetaminophen 500 mg tablet 500 mg PO Q4-6H PRN (Reason: Pain, Mild) nabumetone 500 mg tablet 500 mg PO BID cholecalciferol (vitamin D3) 50 mcg (2,000 unit) capsule 50 mcg PO DAILY ropinirole 0.25 mg tablet 0.25 mg PO TID 30 Days Qty: 90 3RF Rx Instructions: take in the evening diclofenac sodium 1 % gel 2 g topical TID omeprazole 20 mg capsule,delayed release(DR/EC) 20 mg PO DAILY Qty: 30 6RF sennosides [senna] 8.6 mg tablet 17.2 mg PO BEDTIME Qty: 60 6RF Rx Instructions: TWO tablets every night, not one as she was told by the phamacist. simethicone 180 mg capsule 180 mg PO QID 30 Days Qty: 120 6RF Rx Instructions: after meals famotidine 40 mg tablet 40 mg PO BEDTIME Qty: 30 6RF dicyclomine 20 mg tablet 40 mg PO QID 30 Days Qty: 240 3RF Discharge Orders: Discharge Order (Routine); Ordered 08/09/22 Ordered By: Jody Shah Diet: Advance to usual diet Activity on Discharge: As tolerated Stand Alone Forms: Patient Portal Discharge page Care Plan Goals: Read below Health Concerns: Read below Plan of Treatment: Read below Assessment: You were admitted to the hospital for observation of headache and left-sided tingling sensation. Evaluated by images of brain including CT, MRI with no evidence of any acute stroke or insults. Evaluated by Neurology who believe your symptoms are secondary to migraine recommending sumatriptan and few reset to be used as needed. Use sumatriptan and Fioricet as needed for headache To follow-up with neurology as outpatient
--- NOTE | 2022-08-09 15:33 | W.MHC.F2F ---
Service Date Service Date: 08/09/22 Encounter Date of encounter: 08/09/22 Reasons for Services Signs and symptoms assessed: Physical deconditioning Reason for physical therapy: home safety and mobility and therapeutic exercises Homebound: Leaving the home is medically contraindicated at this time without the asist of a device and/or another person due th the listed conditions above and below. Reason homebound: unsteady gait / fall risk Certification: Based on the above findings, I certify that this patient is confined to the home and needs intermittent mcc care, physical therapy and/or speech therapy, or continues to need occupational therapy. The patient is under my care, and I have initiated the establishment of the plan of care. The patient will be followed by a physician who will periodically review the plan of care.
--- NOTE | 2022-08-09 15:38 | MHC.CM.PN ---
Patient has been medically cleared for dc to home today with services. A referral has been made to [facility], who has been made aware of today's dc. Per OK for [facility] services to begin by next week (per tiger text).
== END 2022-08-09 16:23 | disposition home health service (06) ==
LOC: HO.ED 22:15 → HO.EDOVER 23:53 → HO.IMC 08-09 15:14
PROVIDERS: Emergency Medicine; Physician Assistant; Admitting Provider Internal Medicine; Emergency Provider Student in an Organized Health Care Education/Training Program; PCP Internal Medicine; Visit Provider Student in an Organized Health Care Education/Training Program
DX: G43.109 Migraine with aura, not intractable, without status migrainosus (principal); R53.1 Weakness; R20.0 Anesthesia of skin; F32.A Depression, unspecified; F45.0 Somatization disorder; M54.2 Cervicalgia; F41.9 Anxiety disorder, unspecified; R26.2 Difficulty in walking, not elsewhere classified; Z20.822 Contact with and (suspected) exposure to COVID-19; Z87.891 Personal history of nicotine dependence; Z79.899 Other long term (current) drug therapy
CPT/HCPCS: 36415; 70496; 70498; 70553; 72156; 80048; 80076; 84484; 85025; 87635; 93005; 96374; 96375; 97162; 99219; 99285; A9585; Q9967

== ENCOUNTER → 2022-09-30 12:58 | Outpatient (BNVA) | payer MEDICAID, SELFPAY | PROVIDERS: PCP Internal Medicine; Visit Provider Nurse Practitioner Family | DX: R51.9 Headache, unspecified (principal); G47.00 Insomnia, unspecified; R25.2 Cramp and spasm; G89.29 Other chronic pain | CPT/HCPCS: 99212 ==

== ENCOUNTER 2022-10-10 11:00 | Outpatient (RCR) | payer MEDICAID, SELFPAY ==
--- NOTE | 2022-08-25 15:10 | MHC.PT.EP ---
[facility] [place] Office [place] Office [place] Office [address] Ariana Stafford [address] [phone] F: [phone] F: [phone] F: [phone] F: [phone] Physical Therapy Plan of Care Date of Evaluation: Date of Surgery: N/A Diagnosis: Unsteadiness on feet Assessment: Pt is a 57yo F with extensive PMH who presents to PT with unsteadiness on feet . She reports history of multiple falls, last fall in ~January per pt report. Pt presents to PT with current impairments in pain, decreased LE strength, decreased sensation, decreased balance, and impaired gait. She is limited functionally by prolonged standing, walking, stair navigation, and getting in/out of bed. She is a good candidate for skilled PT in order to maximize strength and endurance to improve functional mobility and decrease risk of falls. She is recommended to be seen 2x/week however pt reports she is likely only able to be seen 1x/week. Therefore, she will be seen 1x/week for 5 weeks and will be reassessed at that time. Frequency and Duration: The patient will be seen 1x/week for 5 weeks Short Term Goals: Pt will be I with HEP to promote self management of symptoms Pt will tolerate standing unsupported for 60 sec without UE support Health Services Information Specialist Goals: Pt will improve standing balance to at least 30 sec on airex with S to assist with standing on uneven surfaces Pt will tolerate standing and walking > 20 min with LRAD with minimal to no rest break Pt will demonstrate improvements in function as evidenced by statistically significant improvement in LEFI outcome measure Treatment Plan: Modalities to reduce pain, spasms and effusion. Manual therapy to restore motion and function. Therapeutic exercise to improve strength and flexibility. Neuromuscular re-education for posture and balance. Therapeutic activities to return to functional activities of daily living. Electronically signed by: Magui Hernandez, PT, DPT Please sign and return to therapist. Thank you for your referral.
--- NOTE | 2022-10-30 12:27 | MHC.PT.DC ---
[facility] [place] Office [place] Office [place] Office [address] Ariana Stafford [address] [phone] F: [phone] F: [phone] F: [phone] F: [phone] Physical Therapy Discharge Report Diagnosis: Unsteadiness on feet Date of Surgery: N/A Date of Evaluation: 08/25/22 Date of Discharge: 10/30/22 Treatments to Date: 5 Cancellations to Date: 1 No Shows to Date: Discharge Status: Recommend MD Follow-up Discharge Summary: Pt was seen for PT from 08/25/22-10/10/22. She attended 5 PT sessions and her last attended session was 10/10/22. Pt did not make any improvements with skilled PT. She continued to have bilateral lower extremity pain which may be related to her fibromyalgia and neuropathy diagnoses. She occasionally required encouragement to participate in PT sessions with overall fair tolerance. She was I with HEP consisting of general LE and mobility program. Pt was D/C from PT to HEP on 10/10/22 and was recommended to follow up with doctor to determine any adjunctive pain management options available to her. Electronically signed by: Magui Hernandez, PT, DPT Please sign and return to therapist. Thank you for your referral.
== END 2022-10-30 12:26 | disposition home or self-care (01) ==
LOC: HO.PT 11:00
PROVIDERS: PCP Internal Medicine; Visit Provider Internal Medicine
DX: R26.81 Unsteadiness on feet (principal)
CPT/HCPCS: 97110; 97162; 97530

== ENCOUNTER 2022-10-22 09:20 | Outpatient (REF) | payer MEDICAID, SELFPAY ==
[2022-10-22 11:31] LABS: Appearance Urine Clear; Color Urine Yellow; Glucose Urine UA Negative (Negative); Leukocyte Esterase Urine Negative (Negative); Nitrite Urine Negative (Negative); PH 5.5 (5.0-9.0); Specific Gravity - Urine >= 1.030 (1.005-1.025); Urine Blood Negative (Negative); Urine Ketones Trace mg/dL (Negative); Urine Protein Negative (Neg-Trace)
== END 2022-10-22 09:21 | disposition home or self-care (01) ==
LOC: HO.LAB 09:20
PROVIDERS: PCP Internal Medicine; Referring Provider Internal Medicine; Visit Provider Nurse Practitioner
DX: R10.33 Periumbilical pain (principal); R19.7 Diarrhea, unspecified; R30.0 Dysuria; R14.0 Abdominal distension (gaseous); K21.9 Gastro-esophageal reflux disease without esophagitis; K58.2 Mixed irritable bowel syndrome
CPT/HCPCS: 81003; 99212

== ENCOUNTER 2022-10-28 12:53 | Outpatient (REF) | payer MEDICAID, SELFPAY ==
--- NOTE | ~2022-10-28 | MM_ITS ---
EXAMINATION: BONE DENSITOMETRY CLINICAL INDICATION: History osteopenia. COMPARISON: Previous BD dated 11/22/2015 and baseline BD dated 06/11/2012. TECHNIQUE: Using a [employer] DXA System (software version: 13.1) manufactured by [employer], dual-energy x-ray absorptiometry was performed of the lumbar spine and left hip. The images are of good technical quality. Summary results are attached. FINDINGS: AP SPINE L1-L4: Current: BMD 1.168 g/cm2, Z-score 1.7, T-score -0.1, normal, 1.4% decrease from previous, 5.3% decrease from baseline (<5% change is not significant). Prior: BMD 1.185 g/cm2. Baseline: BMD 1.233 g/cm2. LEFT FEMUR, NECK: Current: BMD 0.742 g/cm2, Z-score -0.5, T-score -2.1, osteopenia. Prior: BMD 0.881 g/cm2. Baseline: BMD 0.828 g/cm2. LEFT FEMUR, TOTAL: Current: BMD 0.832 g/cm2, Z-score 0.0, T-score -1.4, osteopenia, 7.1% decrease from previous, 8.9% decrease from baseline (<5% change is not significant). Prior: BMD 0.896 g/cm2. Baseline: BMD 0.913 g/cm2. IDENTIFIED RISK FACTORS: Menopause. Recurrent falls. HISTORY OF FRACTURE: None listed. MEDICATIONS: Vitamin D. ERT/SERMS. MM/XR DEXA axial skeleton IMPRESSION: 1. DIAGNOSIS: Osteopenia based on the lowest T-score value of -2.1 in the lumbar spine applying World Health Organization criteria. 2. 10-YEAR FRACTURE RISK PREDICTION, FRAX: Major osteoporotic fracture (clinical spine, forearm, hip or shoulder) 4.8%. Hip fracture 0.7%. 3. Treatment Recommendations: NOF guidelines recommend consideration for treatment in postmenopausal women and men age 50 and older presenting with the following: -A hip or vertebral (clinical or morphometric) fracture. -T-score less than or equal to -2.5 at the femoral neck or spine after appropriate evaluation to exclude secondary causes. -Low bone mass at the hip or spine and a 10-year fracture probability by FRAX of greater than or equal to 3% for hip fracture or greater than or equal to 20% for major osteoporotic fracture based on the [place] adapted WHO algorithm. 4. Other Recommendations: All treatment decisions require clinical judgment and consideration of individual patient factors, including patient preferences, comorbidities, previous drug use, risk factors not captured in the FRAX model (e.g. frailty, falls, vitamin D deficiency, increased bone turnover, interval significant decline in bone density) and possible under or overestimation of fracture risk by FRAX. Additional medical evaluation for secondary cause of low bone mineral density may be appropriate. FUTURE SCAN RECOMMENDATION: People with diagnosed cases of osteoporosis or at high risk for fracture should have regular bone mineral density tests. For patients eligible for Medicare, routine testing is allowed once every 2 years. The testing frequency can be increased to one year for patients who have rapidly progressing disease, those who are receiving or discontinuing medical therapy to restore bone mass, or have additional risk factors.
== END 2022-10-28 12:54 | disposition home or self-care (01) ==
LOC: HO.MAMMO 12:53
PROVIDERS: PCP Internal Medicine; Visit Provider Advanced Practice Midwife
DX: Z13.820 Encounter for screening for osteoporosis (principal); Z78.0 Asymptomatic menopausal state
CPT/HCPCS: 77080

== ENCOUNTER 2022-11-12 12:58 | Outpatient (REF) | payer MEDICAID, SELFPAY ==
[2022-11-12 14:04] LABS: CDiff Gene PCR NEGATIVE (Negative)
[2022-11-12 15:16] LABS: Campylobacter Not Detected (Not Detect.); E. coli EAEC Not Detected (Not Detect.); E. coli EPEC Not Detected (Not Detect.); E. coli ETEC Not Detected (Not Detect.); E. coli STEC Not Detected (Not Detect.); Plesiomonas shigelloides Not Detected (Not Detect.); Salmonella Not Detected (Not Detect.); Vibrio Not Detected (Not Detect.); Vibrio Cholerae Not Detected (Not Detect.); Yersinia enterocolitica Not Detected (Not Detect.)
[2022-11-12 15:17] LABS: Adenovirus F 40/41 Not Detected (Not Detect.); Astrovirus Not Detected (Not Detect.); Cryptosporidium Not Detected (Not Detect.); Cyclospora cayetanensis Not Detected (Not Detect.); Entamoeba histolytica Not Detected (Not Detect.); Giardia lamblia Not Detected (Not Detect.); Norovirus GI/GII Not Detected (Not Detect.); Rotavirus A Not Detected (Not Detect.); Sapovirus Not Detected (Not Detect.); Shigella sp./EIEC Not Detected (Not Detect.)
== END 2022-11-12 12:59 | disposition home or self-care (01) ==
LOC: HO.LNP 12:58
PROVIDERS: Visit Provider Nurse Practitioner
DX: R10.13 Epigastric pain (principal); R19.7 Diarrhea, unspecified
CPT/HCPCS: 87493; 87507

== ENCOUNTER 2022-11-19 12:18 | Outpatient (REF) | payer MEDICAID, SELFPAY ==
[2022-11-19 14:47] LABS: Vitamin D 25-OH Total 39.9 ng/mL (>30)
[2022-11-20 13:48] LABS: Calcium (PTHI) 9.9 mg/dL (8.6-10.4); PTHI 46 pg/mL (16-77)
[2022-11-21 13:23] LABS: Calcium, Ionized 5.1 mg/dL (4.8-5.6)
== END 2022-11-19 12:19 | disposition home or self-care (01) ==
LOC: HO.LAB 12:18
PROVIDERS: PCP Internal Medicine; Visit Provider Internal Medicine
DX: M85.80 Other specified disorders of bone density and structure, unspecified site (principal); Z78.0 Asymptomatic menopausal state
CPT/HCPCS: 36415; 82306; 82330; 83970

== ENCOUNTER → 2022-11-25 10:59 | Outpatient (BNVA) | payer MEDICAID, SELFPAY | PROVIDERS: PCP Internal Medicine; Visit Provider Nurse Practitioner Family | DX: M79.7 Fibromyalgia (principal); R07.9 Chest pain, unspecified | CPT/HCPCS: 99212 ==

== ENCOUNTER 2022-11-25 12:01 | Emergency (ER) | payer MEDICAID, SELFPAY ==
--- NOTE | ~2022-11-25 | XR_ITS ---
EXAMINATION: XR CHEST CLINICAL INFORMATION: Chest pain COMPARISON: 01/23/2021 TECHNIQUE: Frontal view of the chest was obtained. FINDINGS: Surgical clips are evident in the right breast and right axilla. Lungs are clear. No consolidation, pneumothorax, or pleural effusion. Cardiac and mediastinal contours are normal. No acute osseous findings. Bone mineralization is normal. XR/XR chest 1V IMPRESSION: No acute pulmonary disease.
--- NOTE | 2022-11-25 12:02 | ECG_ITS ---
Test Reason : CP Blood Pressure : / mmHG Vent. Rate : 073 BPM Atrial Rate : 073 BPM P-R Int : 120 ms QRS Dur : 080 ms QT Int : 362 ms P-R-T Axes : 027 043 034 degrees QTc Int : 398 ms Normal sinus rhythm Normal ECG When compared with ECG of 08-AUG-2022 16:50, No significant change was found Referred By: Generic ED Physician Electronically Signed By:CT MONTELONGO
--- NOTE | 2022-11-25 12:19 | ED.CHESTPAIN ---
HPI - Chest Pain General Chief Complaint: Chest Pain <SLIME Decker - Last Filed: 11/25/22 12:23> Stated Complaint: Chest pain <SLIME Decker - Last Filed: 11/25/22 12:23> Time Seen by Provider: 11/25/22 13:55 <SLIME Decker - Last Filed: 11/25/22 12:23> Source: patient <Una Vicenta GARETH Irby - Last Filed: 11/25/22 17:41> Mode of arrival: ambulatory <Una Irby CNP - Last Filed: 11/25/22 17:41> Limitations: no limitations <Una Irby CNP - Last Filed: 11/25/22 17:41> History of Present Illness HPI narrative: Patient is a 57-year-old female who presents to the emergency department for evaluation of left anterior chest pain. Onset of symptoms was yesterday, weekly progressively worsening and also experiencing palpitations, intermittent, nonradiating, at times is made worse with movement. Also endorsing dizziness without headache, vision changes and reporting shortness of breath but this is actually improved today when compared to yesterday. She does report a history of chest pain, for which she is followed by Cardiology for. <Una Irby CNP - Last Filed: 11/25/22 17:41> Related Data Home Medications: Home Medications Medication Instructions Recorded Confirmed buspirone 15 mg tablet 15 mg PO TID 11/08/20 09/30/22 clonazepam 1 mg tablet 1 mg PO BID PRN Anxiety 11/08/20 09/30/22 olanzapine 20 mg tablet 20 mg PO BEDTIME 11/08/20 09/30/22 prazosin 2 mg capsule 4 mg PO BEDTIME 11/08/20 09/30/22 sertraline 100 mg tablet 200 mg PO DAILY 11/08/20 09/30/22 amlodipine 2.5 mg tablet 2.5 mg PO DAILY 07/16/21 09/30/22 loratadine 10 mg tablet 10 mg PO DAILY 07/16/21 09/30/22 mirtazapine 45 mg tablet 45 mg PO BEDTIME 07/16/21 09/30/22 acetaminophen 500 mg tablet 500 mg PO Q4-6H PRN Pain, Mild 05/29/22 09/30/22 cyanocobalamin (vitamin B-12) 100 100 mcg PO DAILY 05/29/22 09/30/22 mcg tablet melatonin 5 mg tablet 10 mg PO BEDTIME PRN Sleep 05/29/22 09/30/22 nabumetone 500 mg tablet 500 mg PO BID 05/29/22 09/30/22 cholecalciferol (vitamin D3) 50 50 mcg PO DAILY 07/01/22 09/30/22 mcg (2,000 unit) capsule diclofenac sodium 1 % topical gel 2 g topical TID 07/29/22 09/30/22 acetaminophen 650 mg 0 mg PO 09/30/22 09/30/22 tablet,extended release cyclobenzaprine 5 mg tablet 5 mg PO TID PRN pain 09/30/22 09/30/22 ibuprofen 600 mg tablet 600 mg PO BID 09/30/22 09/30/22 amitriptyline 100 mg tablet 100 mg PO BEDTIME 10/22/22 pregabalin 225 mg capsule 225 mg PO BID 10/22/22 pregabalin 225 mg capsule (Lyrica) 225 mg PO BEDTIME 11/25/22 Previous Rx's Medication Instructions Recorded magnesium oxide 400 mg (241.3 mg 400 mg PO DAILY 30 days #30 tabs 12/31/21 magnesium) tablet dicyclomine 20 mg tablet 40 mg PO QID 30 days #240 tabs 07/29/22 famotidine 40 mg tablet 40 mg PO BEDTIME #30 tabs 07/29/22 sennosides 8.6 mg tablet (senna) 17.2 mg PO BEDTIME #60 tabs 07/29/22 simethicone 180 mg capsule 180 mg PO QID 30 days #120 caps 07/29/22 fluticasone propionate 115 2 puff PO BID #12 ea 08/01/22 mcg-salmeterol 21 mcg/actuation HFA inhaler (Advair HFA) albuterol sulfate 90 mcg/actuation 2 puff inhalation Q6H PRN for 08/06/22 aerosol inhaler (ProAir HFA) wheezing 30 days #8.5 ea vvefoqlzkd-aqibuhgilshmm-muxvhycs 1 tab PO Q6H PRN Headache #30 tabs 08/09/22 50 mg-325 mg-40 mg tablet sumatriptan succinate 50 mg tablet 50 mg PO DAILY PRN Headache #14 08/09/22 tabs ropinirole 0.25 mg tablet 0.5 mg PO TID 30 days #180 tabs 09/30/22 pantoprazole 40 mg tablet,delayed 40 mg PO Q12H 90 days #180 tabs 11/21/22 release <SLIME Decker - Last Filed: 11/25/22 12:23> Allergies/Adverse Reactions: Allergies Allergy/AdvReac Type Severity Reaction Status Date / Time codeine [CODEINE] Allergy Intermediate DIZZY/NAUSEA, Verified 11/25/22 11:18 nausea/vomiting escitalopram [From LEXAPRO] Allergy Intermediate ? NAUSEA Verified 11/25/22 11:18 meperidine [MEPERIDINE] Allergy Intermediate NAUSEA Verified 11/25/22 11:18 morphine [MORPHINE] Allergy Intermediate PALPITATIONS, Verified 11/25/22 11:18 palpitation oxycodone [OXYCODONE] Allergy Intermediate PALPATATIONS, Verified 11/25/22 11:18 palpitations tramadol Allergy Unknown dizziness, Verified 11/25/22 11:18 nausea <SLIME Decker Last Filed: 11/25/22 12:23> Review of Systems Review of Systems: Constitutional : No Weight loss, No Fever, No Chills ENT/Mouth :? No sore throat, No Rhinorrhea Eyes: No Eye Pain, No Swelling Cardiovascular : pos Chest Pain, pos SOB, no Dyspnea on Exertion, No Orthopnea, No Edema, No Palpitations Respiratory : No Cough, No Sputum Gastrointestinal : No Nausea, No Vomiting, No Diarrhea, No abdominal Pain, No Hematochezia, No Melena Genitourinary : No Dysuria, No Urinary Frequency Musculoskeletal : No joint pain, No Myalgias, No Joint Swelling Skin : No Skin Lesions, No rash Neuro : No Weakness, No Numbness, positive Dizziness, No Headache Psych : No Anxiety/Panic, No Depression Heme/Lymph: No Bruising, No Lymphadenopathy Endocrine : No Polyuria, No Polydipsia <Una Irby CNP - Last Filed: 11/25/22 17:41> Yes all other systems are reviewed and are negative <Una Irby CNP - Last Filed: 11/25/22 17:41> [facility] Past Medical History Attestation statement: The following information was validated with the patient. <Una Irby CNP - Last Filed: 11/25/22 17:41> Source: old records reviewed <Una Irby CNP - Last Filed: 11/25/22 17:41> Medical History: Medical History Anxiety Depression Fibromyalgia Migraine Migraine equivalent syndrome Periodontal disease Primary osteoarthritis of right hand Somatization disorder <SLIME Decker - Last Filed: 11/25/22 12:23> Surgical History: Surgical History History of esophagogastroduodenoscopy (EGD) History of lumpectomy Hx of section Hx of colonoscopy Hx of shoulder surgery <SLIME Decker - Last Filed: 11/25/22 12:23> Family History Family History: Family History Mother HTN (hypertension) Sister Breast cancer Bone cancer Colon polyps Sister Osteoporosis Hypercholesteremia Colon polyps <SLIME Decker - Last Filed: 11/25/22 12:23> Social History Social History: Social History Household Members: Children Housing: Apartment Are you a primary career portals teacher to a significant other at home: No Do you presently have visiting nurse or other home services: Yes Alcohol intake: never Patient Tobacco Use Status: Former Tobacco user Years Smoked: 3 Advance Directives: No Advance Directives Information Provided: Yes service: No Current occupational status: disabled 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 <SLIME Decker - Last Filed: 11/25/22 12:23> Physical Exam Vital Signs: Vital Signs: Last Vital Signs Temp 97.5 F 11/25/22 16:44 Pulse 66 11/25/22 16:44 Resp 16 11/25/22 16:44 BP 109/61 11/25/22 16:44 Pulse Ox 98 11/25/22 16:44 O2 Del Method 11/25/22 16:44 BMI result Body Mass Index 18.3 <SLIME Decker - Last Filed: 11/25/22 12:23> Vital Signs: Last Vital Signs Temp 97.5 F 11/25/22 16:44 Pulse 66 11/25/22 16:44 Resp 16 11/25/22 16:44 BP 109/61 11/25/22 16:44 Pulse Ox 98 11/25/22 16:44 O2 Del Method 11/25/22 16:44 BMI result Body Mass Index 18.3 <Una Irby CNP - Last Filed: 11/25/22 17:41> Appearance: Alert.?Oriented to person, place and time. No acute distress.?Normal affect. Eyes: Pupils equal, round and reactive to light.? ENT: Pharynx normal.?? Neck: Normal inspection.? Neck supple.?? CVS: Heart sounds normal. Normal heart rate and rhythm.? Pulses normal.?? Respiratory: No respiratory distress.? Lung sounds clear to auscultation bilaterally?? Abdomen: Soft and non-tender. Normoactive bowel sounds. Skin: Skin warm and dry.? Normal skin color.? Extremities: No lower extremity edema.? Neuro: Moves all extremities spontaneously. Sensation intact bilaterally. CN II-XII intact. No focal neuro deficits. Ambulates with normal steady gait. <Una Irby CNP - Last Filed: 11/25/22 17:41> Course Course Course Narrative: RME - 57 yo female with history of fibromyalgia with chronic pain who presents to the ER from Rheumatology office for evaluation of non-radiating left sided chest pain that started yesterday along with dizziness and SOB. Worse with palpation. SOB and dizziness improved today. Rheum PA reporting she has chronic pains and this could be due to her baseline pains but recommend EKG and trop check. Reporting 8/10 pain now, appears well. VSS. EKG done, trop, CXR, labs ordered. Low suspicion for ACS. <SLIME Decker - Last Filed: 11/25/22 12:23> Reevaluation(s) Reevaluation #1: EKG reveals normal sinus rhythm without acute ischemic findings, troponin <3.5, at this time not consistent with ACS. CBC and CMP are overall unremarkable, no significant leukocytosis, anemia. Chest x-ray without acute cardiopulmonary process. BNP within normal limits, do not suspect CHF. Viral testing negative. At this time patient stable for discharge home, atypical chest pain versus musculoskeletal nature. Currently, she reports pain is 2/10. Discussed worrisome signs and symptoms would warrant re-evaluation in the emergency department. 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 All questions answered. She is stable for discharge. <Una Irby CNP - Last Filed: 11/25/22 17:41> Medical Decision Making Medical Decision Making [facility] Narrative: Patient is a 57-year-old female with past medical history of anxiety, fibromyalgia, GERD, IBS who presents to the emergency department for evaluation of chest pain with intermittent shortness and dizziness since yesterday. Symptoms overall improving. Was referred from rheumatology office for evaluation. At the time of my examination she is well-appearing. Vitals are within normal limits; afebrile without tachycardia tachypnea or hypoxia. PERC negative, unlikely pulmonary embolism. Will obtain CBC to evaluate for leukocytosis/ anemia, CMP to evaluate for abnormal electrolytes /abnormal renal function/ abnormal hepaticfunction, EKG and troponin to evaluate for ischemia/ACS. Chest x-ray to evaluate for consolidation/ infiltrate/ mass/ pulmonary congestion, and viral testing.. <Una Irby CNP - Last Filed: 11/25/22 17:41> Differential Diagnosis Differential Diagnoses: The differential diagnosis associated with the presentation includes (As noted above) <Una Irby CNP - Last Filed: 11/25/22 17:41> Lab Data [facility] Lab Attestation statement: I reviewed the patient's lab results. <Una Irby CNP - Last Filed: 11/25/22 17:41> Result Diagrams: 11/25/22 13:22 11/25/22 13:22 <SLIME Decker - Last Filed: 11/25/22 12:23> Labs: Lab Results 11/25/22 11/25/22 11/25/22 Range/Units 13:22 13:22 14:55 WBC 6.0 (4.8-10.8) X10*3/uL RBC 3.90 L (4.20-5.50) X10*6/uL Hgb 12.0 (12.0-16.0) g/dl Hct 35.2 L (37.0-47.0) % MCV 90.3 (80.0-98.0) fL MCH 30.8 (27.0-33.0) pg MCHC 34.1 (31.0-35.0) g/dl RDW 13.4 (11.0-16.0) % Plt Count 269 (160-400) X10*3/uL MPV 9.1 L (9.4-12.3) fL Immature Gran % (Auto) 0.2 (0.0-0.4) % Neut % (Auto) 58.4 (45-73) % Lymph % (Auto) 34.2 (20-40) % [place] % (Auto) 5.7 (2-11) % Eos % (Auto) 1.2 (0-4) % Baso % (Auto) 0.3 (0-2) % Lymph # (Auto) 2.0 (1.2-4.9) X10*3/uL [place] # (Auto) 0.3 (0.1-1.2) X10*3/uL Eos # (Auto) 0.1 (0.0-0.4) X10*3/uL Baso # (Auto) 0.0 (0.0-0.2) X10*3/uL Abs Immat Gran (auto) 0.01 (0.00-0.03) X10*3/uL Absolute Neuts (auto) 3.5 (2.0-8.3) x10*3/uL Absolute Nucleated RBC 0.000 (0.0-0.012) X10*3/uL Nucleated RBC % (auto) 0.0 (0.0-0.2) /100WBC Sodium 141 (135-145) mmol/L Potassium 4.9 (3.3-5.1) mmol/L Chloride 106 (96-108) mmol/L Carbon Dioxide 24 (22-29) mmol/L Anion Gap 16 (12-20) BUN 17 H (9-16) mg/dL Creatinine 0.85 (0.5-1.4) mg/dL Estim Creat Clear Calc 51.0 Estimated GFR > 60 Random Glucose 76 (60-115) mg/dL Calcium 10.1 (8.4-10.2) mg/dL Magnesium 2.1 (1.6-2.6) mg/dL Total Bilirubin 0.5 (0.0-1.0) mg/dL Direct Bilirubin < 0.2 (0.0-0.5) mg/dL AST 28 (5-31) U/L ALT 16 (0-31) U/L Alkaline Phosphatase 142 H (39-117) U/L Troponin I High Sens < 3.5 (<3.5-17.0) ng/L B-Natriuretic Peptide (<100) pg/mL Total Protein 7.8 (6.5-8.0) g/dL Albumin 4.8 (3.5-5.0) g/dL COVID-19 (MILA) (Negative) COVID-19 Clin Com Influenza Type A (KHALIDA) (Negative) Influenza Type B (KHALIDA) (Negative) Influenza A & B Note 11/25/22 11/25/22 11/25/22 Range/Units 14:55 15:46 15:46 WBC (4.8-10.8) X10*3/uL RBC (4.20-5.50) X10*6/uL Hgb (12.0-16.0) g/dl Hct (37.0-47.0) % MCV (80.0-98.0) fL MCH (27.0-33.0) pg MCHC (31.0-35.0) g/dl RDW (11.0-16.0) % Plt Count (160-400) X10*3/uL MPV (9.4-12.3) fL Immature Gran % (Auto) (0.0-0.4) % Neut % (Auto) (45-73) % Lymph % (Auto) (20-40) % [place] % (Auto) (2-11) % Eos % (Auto) (0-4) % Baso % (Auto) (0-2) % Lymph # (Auto) (1.2-4.9) X10*3/uL [place] # (Auto) (0.1-1.2) X10*3/uL Eos # (Auto) (0.0-0.4) X10*3/uL Baso # (Auto) (0.0-0.2) X10*3/uL Abs Immat Gran (auto) (0.00-0.03) X10*3/uL Absolute Neuts (auto) (2.0-8.3) x10*3/uL Absolute Nucleated RBC (0.0-0.012) X10*3/uL Nucleated RBC % (auto) (0.0-0.2) /100WBC Sodium (135-145) mmol/L Potassium (3.3-5.1) mmol/L Chloride (96-108) mmol/L Carbon Dioxide (22-29) mmol/L Anion Gap (12-20) BUN (9-16) mg/dL Creatinine (0.5-1.4) mg/dL Estim Creat Clear Calc Estimated GFR Random Glucose (60-115) mg/dL Calcium (8.4-10.2) mg/dL Magnesium (1.6-2.6) mg/dL Total Bilirubin (0.0-1.0) mg/dL Direct Bilirubin (0.0-0.5) mg/dL AST (5-31) U/L ALT (0-31) U/L Alkaline Phosphatase (39-117) U/L Troponin I High Sens (<3.5-17.0) ng/L B-Natriuretic Peptide < 10 (<100) pg/mL Total Protein (6.5-8.0) g/dL Albumin (3.5-5.0) g/dL COVID-19 (MILA) Negative (Negative) COVID-19 Clin Com See Note Influenza Type A (KHALIDA) Negative (Negative) Influenza Type B (KHALIDA) Negative (Negative) Influenza A & B Note See Note <SLIME Decker - Last Filed: 11/25/22 12:23> Lab Results 11/25/22 11/25/22 11/25/22 Range/Units 13:22 13:22 14:55 WBC 6.0 (4.8-10.8) X10*3/uL RBC 3.90 L (4.20-5.50) X10*6/uL Hgb 12.0 (12.0-16.0) g/dl Hct 35.2 L (37.0-47.0) % MCV 90.3 (80.0-98.0) fL MCH 30.8 (27.0-33.0) pg MCHC 34.1 (31.0-35.0) g/dl RDW 13.4 (11.0-16.0) % Plt Count 269 (160-400) X10*3/uL MPV 9.1 L (9.4-12.3) fL Immature Gran % (Auto) 0.2 (0.0-0.4) % Neut % (Auto) 58.4 (45-73) % Lymph % (Auto) 34.2 (20-40) % [place] % (Auto) 5.7 (2-11) % Eos % (Auto) 1.2 (0-4) % Baso % (Auto) 0.3 (0-2) % Lymph # (Auto) 2.0 (1.2-4.9) X10*3/uL [place] # (Auto) 0.3 (0.1-1.2) X10*3/uL Eos # (Auto) 0.1 (0.0-0.4) X10*3/uL Baso # (Auto) 0.0 (0.0-0.2) X10*3/uL Abs Immat Gran (auto) 0.01 (0.00-0.03) X10*3/uL Absolute Neuts (auto) 3.5 (2.0-8.3) x10*3/uL Absolute Nucleated RBC 0.000 (0.0-0.012) X10*3/uL Nucleated RBC % (auto) 0.0 (0.0-0.2) /100WBC Sodium 141 (135-145) mmol/L Potassium 4.9 (3.3-5.1) mmol/L Chloride 106 (96-108) mmol/L Carbon Dioxide 24 (22-29) mmol/L Anion Gap 16 (12-20) BUN 17 H (9-16) mg/dL Creatinine 0.85 (0.5-1.4) mg/dL Estim Creat Clear Calc 51.0 Estimated GFR > 60 Random Glucose 76 (60-115) mg/dL Calcium 10.1 (8.4-10.2) mg/dL Magnesium 2.1 (1.6-2.6) mg/dL Total Bilirubin 0.5 (0.0-1.0) mg/dL Direct Bilirubin < 0.2 (0.0-0.5) mg/dL AST 28 (5-31) U/L ALT 16 (0-31) U/L Alkaline Phosphatase 142 H (39-117) U/L Troponin I High Sens < 3.5 (<3.5-17.0) ng/L B-Natriuretic Peptide (<100) pg/mL Total Protein 7.8 (6.5-8.0) g/dL Albumin 4.8 (3.5-5.0) g/dL COVID-19 (MILA) (Negative) COVID-19 Clin Com Influenza Type A (KHALIDA) (Negative) Influenza Type B (KHALIDA) (Negative) Influenza A & B Note 11/25/22 11/25/22 11/25/22 Range/Units 14:55 15:46 15:46 WBC (4.8-10.8) X10*3/uL RBC (4.20-5.50) X10*6/uL Hgb (12.0-16.0) g/dl Hct (37.0-47.0) % MCV (80.0-98.0) fL MCH (27.0-33.0) pg MCHC (31.0-35.0) g/dl RDW (11.0-16.0) % Plt Count (160-400) X10*3/uL MPV (9.4-12.3) fL Immature Gran % (Auto) (0.0-0.4) % Neut % (Auto) (45-73) % Lymph % (Auto) (20-40) % [place] % (Auto) (2-11) % Eos % (Auto) (0-4) % Baso % (Auto) (0-2) % Lymph # (Auto) (1.2-4.9) X10*3/uL [place] # (Auto) (0.1-1.2) X10*3/uL Eos # (Auto) (0.0-0.4) X10*3/uL Baso # (Auto) (0.0-0.2) X10*3/uL Abs Immat Gran (auto) (0.00-0.03) X10*3/uL Absolute Neuts (auto) (2.0-8.3) x10*3/uL Absolute Nucleated RBC (0.0-0.012) X10*3/uL Nucleated RBC % (auto) (0.0-0.2) /100WBC Sodium (135-145) mmol/L Potassium (3.3-5.1) mmol/L Chloride (96-108) mmol/L Carbon Dioxide (22-29) mmol/L Anion Gap (12-20) BUN (9-16) mg/dL Creatinine (0.5-1.4) mg/dL Estim Creat Clear Calc Estimated GFR Random Glucose (60-115) mg/dL Calcium (8.4-10.2) mg/dL Magnesium (1.6-2.6) mg/dL Total Bilirubin (0.0-1.0) mg/dL Direct Bilirubin (0.0-0.5) mg/dL AST (5-31) U/L ALT (0-31) U/L Alkaline Phosphatase (39-117) U/L Troponin I High Sens (<3.5-17.0) ng/L B-Natriuretic Peptide < 10 (<100) pg/mL Total Protein (6.5-8.0) g/dL Albumin (3.5-5.0) g/dL COVID-19 (MILA) Negative (Negative) COVID-19 Clin Com See Note Influenza Type A (KHALIDA) Negative (Negative) Influenza Type B (KHALIDA) Negative (Negative) Influenza A & B Note See Note <Una Irby CNP - Last Filed: 11/25/22 17:41> Independent Interpretation I performed an independent interpretation of an: EKG and Plain X-Ray (I have personally interpreted chest x-ray and agree with radiologist impression) <Una Irby CNP - Last Filed: 11/25/22 17:41> Interpretation: EKG Rate: 73 Rhythm:? Normal sinus rhythm [place]:? Normal Normal P waves.? Normal VIBHA.?? Normal QRS complex.?? ST T wave :??No ST elevation, ST depression, no T-wave inversions qTC: 398 The study has been interpreted contemporaneously by me. <Una Irby CNP - Last Filed: 11/25/22 17:41> Radiology Impression Discussion of test interpretation with radiology: I have reviewed the radiologist's reading. <Una Irby CNP - Last Filed: 11/25/22 17:41> Radiologist Impression: XR/XR chest 1V IMPRESSION: No acute pulmonary disease. <Unafelipe Molinabenjamin Irby CNP - Last Filed: 11/25/22 17:41> External Record Review External record reviewed: Outpatient record (Rheumatology) <Una Vicentabenjamin Irby CNP - Last Filed: 11/25/22 17:41> Prescription Management I considered prescription management with: Pain Medication <Una Irby CNP - Last Filed: 11/25/22 17:41> Discharge Plan Discharge Clinical Impression: Chest pain <SLIME Decker - Last Filed: 11/25/22 12:23> Patient Disposition: Home, Self-Care <SLIME Decker - Last Filed: 11/25/22 12:23> Instructions: Chest Pain (ED) <SLIME Decker - Last Filed: 11/25/22 12:23> Additional Instructions: As we discussed, your blood work, chest x-ray, EKG, and viral testing were normal today. 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 <SLIME Decker - Last Filed: 11/25/22 12:23> Prescriptions: No Action Advair HFA 115-21 mcg/actuation HFA aerosol inhaler 2 puff PO BID Qty: 12 6RF pantoprazole 40 mg tablet,delayed release (DR/EC) 40 mg PO Q12H 90 Days Qty: 180 1RF sumatriptan succinate 50 mg Tablet 50 mg PO DAILY PRN (Reason: Headache) Qty: 14 0RF ouvudwisty-kxlesufdkvljo-ewpe 50-325-40 mg Tablet 1 tab PO Q6H PRN (Reason: Headache) Qty: 30 0RF loratadine 10 mg tablet 10 mg PO DAILY amlodipine 2.5 mg tablet 2.5 mg PO DAILY mirtazapine 45 mg tablet 45 mg PO BEDTIME buspirone 15 mg tablet 15 mg PO TID sertraline 100 mg tablet 200 mg PO DAILY olanzapine 20 mg tablet 20 mg PO BEDTIME clonazepam 1 mg tablet 1 mg PO BID PRN (Reason: Anxiety) prazosin 2 mg capsule 4 mg PO BEDTIME magnesium oxide 400 mg (241.3 mg magnesium) tablet 400 mg PO DAILY 30 Days Qty: 30 6RF albuterol sulfate [ProAir HFA] 90 mcg/actuation HFA aerosol inhaler 2 puff inhalation Q6H PRN (Reason: for wheezing) 30 Days Qty: 8.5 6RF pregabalin [Lyrica] 225 mg capsule 225 mg PO BEDTIME ibuprofen 600 mg tablet 600 mg PO BID acetaminophen 650 mg tablet extended release 0 mg PO cyclobenzaprine 5 mg tablet 5 mg PO TID PRN (Reason: pain) ropinirole 0.25 mg tablet 0.5 mg PO TID 30 Days Qty: 180 3RF Rx Instructions: take in the evening cyanocobalamin (vitamin B-12) 100 mcg tablet 100 mcg PO DAILY melatonin 5 mg tablet 10 mg PO BEDTIME PRN (Reason: Sleep) acetaminophen 500 mg tablet 500 mg PO Q4-6H PRN (Reason: Pain, Mild) nabumetone 500 mg tablet 500 mg PO BID cholecalciferol (vitamin D3) 50 mcg (2,000 unit) capsule 50 mcg PO DAILY diclofenac sodium 1 % gel 2 g topical TID sennosides [senna] 8.6 mg tablet 17.2 mg PO BEDTIME Qty: 60 6RF Rx Instructions: TWO tablets every night, not one as she was told by the phamacist. simethicone 180 mg capsule 180 mg PO QID 30 Days Qty: 120 6RF Rx Instructions: after meals famotidine 40 mg tablet 40 mg PO BEDTIME Qty: 30 6RF dicyclomine 20 mg tablet 40 mg PO QID 30 Days Qty: 240 3RF pregabalin 225 mg capsule 225 mg PO BID amitriptyline 100 mg tablet 100 mg PO BEDTIME <SLIME Decker - Last Filed: 11/25/22 12:23> Referrals: Umm Coley MD [Primary Care Provider] - <SLIME Decker - Last Filed: 11/25/22 12:23>
[2022-11-25 12:21] VITALS: BP 96/51; PULSE 79; RESP 18; TEMP 36.5; O2SAT 99; BMI 18.3
[2022-11-25 13:50] LABS: Alanine Aminotransferase 16 U/L (0-31); Albumin Level 4.8 g/dL (3.5-5.0); Alkaline Phosphatase 142 U/L (39-117); Anion Gap 16 (12-20); Aspartate Amino Transferase 28 U/L (5-31); Bilirubin Direct < 0.2 mg/dL (0.0-0.5); Bilirubin Total 0.5 mg/dL (0.0-1.0); Blood Urea Nitrogen 17 mg/dL (9-16); Calcium 10.1 mg/dL (8.4-10.2); Carbon Dioxide 24 mmol/L (22-29); Chloride 106 mmol/L (96-108); Estimated Glomerular Filt Rate > 60; Glucose Random 76 mg/dL (60-115); Magnesium 2.1 mg/dL (1.6-2.6); Potassium 4.9 mmol/L (3.3-5.1); Sodium 141 mmol/L (135-145); Total Protein 7.8 g/dL (6.5-8.0)
[2022-11-25 14:00] VITALS: BP 117/73; PULSE 67; RESP 16; TEMP 36.8; O2SAT 99
[2022-11-25 14:00] LABS: Troponin-I High Sensitivity < 3.5 ng/L (<3.5-17.0)
--- NOTE | 2022-11-25 14:55 | PC.NURSE ---
patient a&o, family at bedside, vss, pt labs drawn via straight stick, call [place] within reach, will continue to monitor
[2022-11-25 15:04] LABS: Basophils Percent Auto 0.3 % (0-2); Eosinophils Absolute Auto 0.1 X10*3/uL (0.0-0.4); Eosinophils Percent Auto 1.2 % (0-4); Hematocrit 35.2 % (37.0-47.0); Imm Gran Abs Auto 0.01 X10*3/uL (0.00-0.03); Imm Gran Pct Auto 0.2 % (0.0-0.4); Lymphocytes Percent Auto 34.2 % (20-40); Mean Corpuscular HGB Conc 34.1 g/dl (31.0-35.0); Mean Corpuscular Hemoglobin 30.8 pg (27.0-33.0); Mean Corpuscular Volume 90.3 fL (80.0-98.0); Mean Platelet Volume 9.1 fL (9.4-12.3); Monocytes Absolute Auto 0.3 X10*3/uL (0.1-1.2); Monocytes Percent Auto 5.7 % (2-11); Neutrophils Absolute Auto 3.5 x10*3/uL (2.0-8.3); Neutrophils Percent Auto 58.4 % (45-73); Platelet Count 269 X10*3/uL (160-400); Red Cell Distribution Width 13.4 % (11.0-16.0)
[2022-11-25 15:31] LABS: B Type Natriuretic Peptide < 10 pg/mL (<100)
--- NOTE | 2022-11-25 15:55 | PC.NURSE ---
nasal swabs performed
[2022-11-25 16:06] LABS: COVID-19 Test Negative (Negative); IDNOW Serial# 16C4AD1C; IDNOW Serial# BCCEAD1C; Influenza A Negative (Negative); Influenza B2 Negative (Negative)
[2022-11-25 16:44] VITALS: BP 109/61; PULSE 66; RESP 16; TEMP 36.4; O2SAT 98
== END 2022-11-25 18:22 | disposition home or self-care (01) ==
PROVIDERS: Nurse Practitioner Family; Physician Assistant; Emergency Provider Emergency Medicine; PCP Internal Medicine
DX: R07.89 Other chest pain (principal); R06.02 Shortness of breath; R00.2 Palpitations; R51.9 Headache, unspecified; R42 Dizziness and giddiness; Z20.822 Contact with and (suspected) exposure to COVID-19; Z20.828 Contact with and (suspected) exposure to other viral communicable diseases; Z87.891 Personal history of nicotine dependence; Z79.899 Other long term (current) drug therapy
CPT/HCPCS: 36415; 71045; 80048; 80076; 83735; 83880; 84484; 85025; 87502; 87635; 93005; 99283; 99285

== ENCOUNTER 2022-11-29 08:50 | Outpatient (REF) | payer MEDICAID, SELFPAY ==
--- NOTE | ~2022-11-29 | MM_ITS ---
EXAMINATION: MM SCREENING DIGITAL BREAST TOMOSYNTHESIS, BILATERAL CLINICAL INFORMATION: Screening, asymptomatic. Right lumpectomy and radiation, 2010. Family history breast cancer, sister. COMPARISON: Mammography: 11/09/2021, 10/31/2020, 09/06/2019, 08/30/2018 TECHNIQUE: Digital breast tomosynthesis is performed in both the craniocaudal and mediolateral oblique views along with computer-aided detection (CAD). Synthesized 2D images are generated from the tomosynthesis. FINDINGS: The breasts are heterogeneously dense, which may obscure small masses (ACR BI-RADS breast composition Category c). Breast tissue composition borders on average fibroglandular. There are chronic post therapy changes on the right with stable scarring and surgical clips in reduced breast size. Neither breast shows interval significant mass or architectural abnormality or abnormal calcifications. No significant changes. MM/MM tomosynthesis screening BI IMPRESSION: -No mammographic evidence of malignancy. -Post therapy changes right breast. ASSESSMENT: BI-RADS 2: Benign RECOMMENDATION: Routine annual mammography screening. This patient's information was entered into a reminder system with a target due date for their next mammogram.
== END 2022-11-29 08:51 | disposition home or self-care (01) ==
LOC: HO.MAMMO 08:50
PROVIDERS: PCP Internal Medicine; Visit Provider Internal Medicine
DX: Z12.31 Encounter for screening mammogram for malignant neoplasm of breast (principal)
CPT/HCPCS: 77063; 77067

== ENCOUNTER → 2022-12-05 10:43 | Outpatient (BNVA) | payer MEDICAID, SELFPAY | PROVIDERS: PCP Internal Medicine; Referring Provider Internal Medicine; Visit Provider Nurse Practitioner | DX: K58.2 Mixed irritable bowel syndrome (principal); K21.9 Gastro-esophageal reflux disease without esophagitis; R10.11 Right upper quadrant pain; M79.7 Fibromyalgia; F45.0 Somatization disorder; R11.2 Nausea with vomiting, unspecified; G43.109 Migraine with aura, not intractable, without status migrainosus | CPT/HCPCS: 99212 ==

== ENCOUNTER → 2023-01-13 07:59 | Outpatient (REF) | payer MEDICAID, SELFPAY ==
--- NOTE | ~2023-01-13 | NM_ITS ---
EXAMINATION: [place] RADIONUCLIDE SOLID FOOD GASTRIC EMPTYING 4-HOUR STUDY CLINICAL INFORMATION: Epigastric pain. COMPARISON: Prior gastric emptying study done on 09/01/2016. TECHNIQUE: A standard meal consisting of 4 oz of Egg Beaters brand tagged with 990 microcuries Tc-99m Sulfur Colloid, 8 oz water and 2 slices of toast with jelly was administered orally to the patient. Images were obtained using a dual head gamma camera in the anterior and posterior projections over of the stomach immediately post ingestion and at hourly intervals up to 4 hours post ingestion. The anterior and posterior counts at each time interval were averaged using the geometric mean and expressed as percentage of the immediate post ingestion counts. FINDINGS: There is good visualization of activity in the stomach immediately post ingestion. As the study progresses, there is good clearance of activity from the stomach and visualization of progressively increasing small bowel activity. By the end of the study, there is almost no retention noted in the stomach. Retention in the stomach at each time interval was: 1 hour 75% (normal 37%-90%) 2 hours 38% (normal 30%-60%) 3 hours 14% 4 hours 9% (normal 0%-10%) Compared to prior study, no significant change is seen. NM/WV gastric emptying study IMPRESSION: Normal 4-hour solid food gastric emptying study.
== END ==
LOC: HO.NUCMED 07:59
PROVIDERS: PCP Internal Medicine; Visit Provider Nurse Practitioner
DX: R10.13 Epigastric pain (principal)
CPT/HCPCS: 78264; A9541

== ENCOUNTER → 2023-01-16 10:04 | Outpatient (BNVA) | payer MEDICAID, SELFPAY | PROVIDERS: PCP Internal Medicine; Visit Provider Nurse Practitioner Family | DX: M25.641 Stiffness of right hand, not elsewhere classified (principal); M79.7 Fibromyalgia; M25.511 Pain in right shoulder; R29.898 Other symptoms and signs involving the musculoskeletal system | CPT/HCPCS: 99212 ==

== ENCOUNTER → 2023-01-30 11:26 | Outpatient (BNVA) | payer MEDICAID, SELFPAY | PROVIDERS: PCP Internal Medicine; Referring Provider Internal Medicine; Visit Provider Nurse Practitioner | DX: R10.33 Periumbilical pain (principal); R10.11 Right upper quadrant pain; K21.9 Gastro-esophageal reflux disease without esophagitis; K58.2 Mixed irritable bowel syndrome | CPT/HCPCS: 99212 ==

== ENCOUNTER 2023-02-11 12:07 | Outpatient (REF) | payer MEDICAID, SELFPAY ==
--- NOTE | ~2023-02-11 | XR_ITS ---
EXAMINATION: XR SHOULDER, RIGHT CLINICAL INFORMATION: Reason for Exam M25.511 - Pain in right shoulder COMPARISON: None TECHNIQUE: Four views of the shoulder. FINDINGS: No acute fracture. There is minimal superior subluxation of the clavicle with respect to the acromion which could reflect a low-grade acromioclavicular injury in the appropriate clinical setting. Mild degenerative changes of the acromioclavicular and glenohumeral joints with degenerative spurring. Right axillary and chest wall surgical clips. XR/XR shoulder RT min 2V IMPRESSION: * There is minimal superior subluxation of the clavicle with respect to the acromion which could reflect a low-grade acromioclavicular injury in the appropriate clinical setting. No acute fracture. * Mild degenerative changes of the shoulder.
== END 2023-02-11 12:08 | disposition home or self-care (01) ==
LOC: HO.XRAY 12:07
PROVIDERS: PCP Internal Medicine; Visit Provider Nurse Practitioner Family
DX: M25.511 Pain in right shoulder (principal)
CPT/HCPCS: 73030

== ENCOUNTER 2023-02-15 08:52 | Emergency (ER) | payer MEDICAID, SELFPAY ==
--- NOTE | 2023-02-15 | ECG_ITS ---
Test Reason : CHEST PAIN Blood Pressure : / mmHG Vent. Rate : 082 BPM Atrial Rate : 082 BPM P-R Int : 140 ms QRS Dur : 076 ms QT Int : 328 ms P-R-T Axes : 053 061 045 degrees QTc Int : 383 ms Normal sinus rhythm Normal ECG When compared with ECG of 25-NOV-2022 12:05, No significant change was found Referred By: Generic ED Physician Electronically Signed By:CT MONTELONGO
--- NOTE | ~2023-02-15 | XR_ITS ---
EXAMINATION: XR CHEST CLINICAL INFORMATION: Chest pain. COMPARISON: None available. TECHNIQUE: 2 views of the chest were obtained. FINDINGS: No significant abnormality is noted involving the heart, lungs, mediastinum, or bony thorax. Asymmetry of the right breast tissue, likely postsurgical. Right breast and right axillary surgical clips. XR/XR chest 2V IMPRESSION: No suspicious radiographic finding.
[2023-02-15 09:05] VITALS: BP 95/46; PULSE 95; RESP 16; TEMP 36.9; O2SAT 99; BMI 17.9
[2023-02-15 09:19] VITALS: BP 120/69; PULSE 81; PULSE 85; RESP 20; O2SAT 99
--- NOTE | 2023-02-15 09:26 | ED_ITS ---
HPI - Chest Pain General Chief Complaint: Chest Pain Stated Complaint: chest pains Time Seen by Provider: 02/15/23 09:12 Source: patient and RN notes reviewed Mode of arrival: ambulatory Limitations: no limitations History of Present Illness HPI narrative: This is a 49-gweq-ero-female, with a past medical history of GERD, insomnia, IBS, breast cancer, environmental allergies, radiation fibrosis of lung, primary osteoarthritis of right hand, and fibromyalgia, who presents to the emergency department with complaints of chest pain x 4 days. Patient describes the pain as a palpitation like pain that is constant but waxes and wanes in severity. She states that the pain stays in her midsternal chest and does not radiate. She reports associated shortness of breath. Denies any recent surgeries, travel, hx of blood clots. Denies fevers, chills, sore throat, ear pain, cough. She admits to having some nausea and diffuse abdominal pain. Denies taking any medications to treat her pain. Patient was seen here last month for chest pain with a nondiagnostic cardiac workup; pt reports that her symptoms at that point resolved until 4 days ago. No other complaints or concerns at this time. MD complaint: chest pain Onset (ago): day(s) Timing of current episode: constant Prior episodes: Yes Onset: during rest and during exertion Pain location: parasternal Pain radiation: none Severity: moderate Pain scale (0-10): 7 Quality: aching Relieving factors: nothing Exacerbating factors: nothing Associated symptoms: palpitations Treatment prior to arrival: none Related Data Home Medications Medication Instructions Recorded Confirmed buspirone 15 mg tablet 15 mg PO TID 11/08/20 01/16/23 clonazepam 1 mg tablet 1 mg PO BID PRN Anxiety 11/08/20 01/16/23 olanzapine 20 mg tablet 20 mg PO BEDTIME 11/08/20 01/16/23 prazosin 2 mg capsule 4 mg PO BEDTIME 11/08/20 01/16/23 sertraline 100 mg tablet 200 mg PO DAILY 11/08/20 01/16/23 amlodipine 2.5 mg tablet 2.5 mg PO DAILY 07/16/21 01/16/23 loratadine 10 mg tablet 10 mg PO DAILY 07/16/21 01/16/23 mirtazapine 45 mg tablet 45 mg PO BEDTIME 07/16/21 01/16/23 acetaminophen 500 mg tablet 500 mg PO Q4-6H PRN Pain, Mild 05/29/22 01/16/23 cyanocobalamin (vitamin B-12) 100 100 mcg PO DAILY 05/29/22 01/16/23 mcg tablet nabumetone 500 mg tablet 500 mg PO BID 05/29/22 01/16/23 cholecalciferol (vitamin D3) 50 50 mcg PO DAILY 07/01/22 01/16/23 mcg (2,000 unit) capsule diclofenac sodium 1 % topical gel 2 g topical TID 07/29/22 01/16/23 cyclobenzaprine 5 mg tablet 5 mg PO TID PRN pain 09/30/22 01/16/23 ibuprofen 600 mg tablet 600 mg PO BID 09/30/22 01/16/23 amitriptyline 100 mg tablet 100 mg PO BEDTIME 10/22/22 01/16/23 pregabalin 225 mg capsule (Lyrica) 225 mg PO BEDTIME 11/25/22 01/16/23 acetaminophen 650 mg 650 mg PO ONCE PRN pain 12/05/22 01/16/23 tablet,extended release Previous Rx's Medication Instructions Recorded magnesium oxide 400 mg (241.3 mg 400 mg PO DAILY 30 days #30 tabs 12/31/21 magnesium) tablet dicyclomine 20 mg tablet 40 mg PO QID 30 days #240 tabs 07/29/22 sennosides 8.6 mg tablet (senna) 17.2 mg PO BEDTIME #60 tabs 07/29/22 simethicone 180 mg capsule 180 mg PO QID 30 days #120 caps 07/29/22 fluticasone propionate 115 2 puff PO BID #12 ea 08/01/22 mcg-salmeterol 21 mcg/actuation HFA inhaler (Advair HFA) albuterol sulfate 90 mcg/actuation 2 puff inhalation Q6H PRN for 08/06/22 aerosol inhaler (ProAir HFA) wheezing 30 days #8.5 ea itqftuvwab-gwznmmudtgoas-jdkodsij 1 tab PO Q6H PRN Headache #30 tabs 08/09/22 50 mg-325 mg-40 mg tablet sumatriptan succinate 50 mg tablet 50 mg PO DAILY PRN Headache #14 08/09/22 tabs ropinirole 0.25 mg tablet 0.5 mg PO TID 30 days #180 tabs 09/30/22 psyllium husk 0.4 gram capsule 0.4 g PO BID #60 caps 12/05/22 (Fiber (psyllium husk)) melatonin 5 mg tablet 10 mg PO BEDTIME PRN Sleep 90 days 01/15/23 #90 tabs omeprazole 20 mg capsule,delayed 20 mg PO DAILY 30 days #30 caps 01/30/23 release peg 3350-electrolytes 236 240 ml PO Q10M 1 day #4,000 mL 01/30/23 gram-22.74 gram-6.74 gram-5.86 gram solution (Golytely) famotidine 40 mg tablet 40 mg PO BEDTIME #90 tabs 02/04/23 hydroxyzine HCl 25 mg tablet 25 mg PO BID PRN anxiety #7 tabs 02/15/23 Allergies Allergy/AdvReac Type Severity Reaction Status Date / Time codeine [CODEINE] Allergy Intermediate DIZZY/NAUSEA, Verified 02/15/23 09:10 nausea/vomiting escitalopram [From LEXAPRO] Allergy Intermediate ? NAUSEA Verified 02/15/23 09:10 meperidine [MEPERIDINE] Allergy Intermediate NAUSEA Verified 02/15/23 09:10 morphine [MORPHINE] Allergy Intermediate PALPITATIONS, Verified 02/15/23 09:10 palpitation oxycodone [OXYCODONE] Allergy Intermediate PALPATATIONS, Verified 02/15/23 09:10 palpitations tramadol Allergy Unknown dizziness, Verified 02/15/23 09:10 nausea acetaminophen [From Percocet] Allergy Shakiness Verified 02/15/23 09:11 Review of Systems Review of Systems: Constitutional: No Weight loss, No Fever, No Chills, No Night Sweats, No Fatigue, No Malaise ENT/Mouth: No Hearing loss, No Ear Pain, No Nasal Congestion, No Sinus Pain, No Hoarseness, No sore throat, No Rhinorrhea, No Swallowing Difficulty Eyes: No Eye Pain, No Swelling, No Redness, No Foreign Body, No Discharge, No Vision Changes Cardiovascular: + Chest Pain, +SOB, No Dyspnea on Exertion, No Orthopnea, No Edema, +Palpitations Respiratory: No Cough, No Sputum, No Wheezing, No Smoke Exposure, No Dyspnea Gastrointestinal: + Nausea, No Vomiting, No Diarrhea, No Constipation, + Abdominal pain, No Hematochezia, No Melena Genitourinary: No irregular bleeding, No Dysuria, No Urinary Frequency, No Hematuria, No Urinary Incontinence/retention, No Urgency, No Flank Pain, No Urinary Flow Changes, No Hesitancy Musculoskeletal: No joint pain, No Myalgias, No Joint Swelling Skin: No Skin Lesions, No rash Neuro: No Weakness, No Numbness, No Paresthesias, No Loss of Consciousness, No Dizziness, No Headache Psych: No Anxiety/Panic, No Depression, No SI/HI/AH/VH, No Social Issues, Heme/Lymph: No Bruising, No Bleeding,No Lymphadenopathy Endocrine: No Polyuria, No Polydipsia, No Temperature Intolerance Yes all other systems are reviewed and are negative Constitutional: Constitutional: Reports as per [facility] Past Medical History Attestation statement: The following information was validated with the patient. Medical History Anxiety Depression Diarrhea Fibromyalgia Migraine Migraine equivalent syndrome Periodontal disease Primary osteoarthritis of right hand Somatization disorder Surgical History History of esophagogastroduodenoscopy (EGD) History of lumpectomy Hx of section Hx of colonoscopy Hx of shoulder surgery Family History Family History Mother HTN (hypertension) Sister Breast cancer Bone cancer Colon polyps Sister Osteoporosis Hypercholesteremia Colon polyps Social History Social History Household Members: Children Housing: Apartment Are you a primary home health care physician to a significant other at home: No Do you presently have visiting nurse or other home services: Yes Alcohol intake: never Patient Tobacco Use Status: Former Tobacco user Years Smoked: 3 Smoked in Last 30 Days: No Use of substances other than those prescribed or required for medical reasons: No Advance Directives: No Advance Directives Information Provided: Yes Patient : No service: No Current occupational status: disabled 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 Physical Exam Vital Signs: Vital Signs: Last Vital Signs Temp 98.5 F 02/15/23 09:05 Pulse 74 02/15/23 12:07 Resp 20 02/15/23 12:07 BP 106/57 L 02/15/23 12:07 Pulse Ox 100 02/15/23 12:07 O2 Del Method Room Air 02/15/23 12:07 BMI result Body Mass Index 17.9 Const: General: cooperative, comfortable and no acute distress Orientation/consciousness: patient oriented x3 Limitations: no limitations HEENT: Head: Yes normal to inspection, Yes normocephalic and Yes atraumatic Ears: hearing grossly normal bilaterally General nose exam: Normal external nose present Face and sinus: Yes normal facial exam Mouth: Normal oral and palatal mucosa present, oropharynx normal and moist mucous membranes Throat: Yes posterior oropharynx normal Eyes: General: appearance normal, both eyes and all related structures Ey elids: Yes eyelids normal Conjunctivae: conjunctivae normal Sclerae: sclerae normal Pupils: Equal, round and reactive pupils present EOM: EOMs intact bilaterally Neck: Neck: Yes normal visual inspection, Yes full ROM and Yes no lymphadenopathy Lymphatic: no lymphadenopathy noted Chest: Chest palpation & inspection: normal inspection of the chest Resp: Effort & Inspection: normal respiratory effort and able to speak in complete sentences Auscultation: clear to auscultation bilaterally, no crackles, no rales, no rhonchi and no wheezes Cardio: Rate: regular rate Rhythm: regular rhythm Heart sounds: S1 normal heart sound present and S2 normal heart sound present GI: Inspection: Yes normal to inspection Skin: Other: Healing ecchymosis noted to the anterior left [place]. No step off or deformity. No crepitus. General skin exam: no rashes or lesions noted Trauma: no lacerations or abrasions Wounds: no wounds Neuro: General: patient oriented x3 and moves all extremities Cranial nerves: Yes Equal, round and reactive pupils present Extrem: Other: No calf tenderness General: Yes normal to inspection and Yes no pedal edema Right upper e xtremity: normal to inspection Left upper extremity: normal to inspection Right lower extremity: normal to inspection Left lower extremity: normal to inspection Course Reevaluation(s) Reevaluation #1: Patient re-evaluated, reporting that her pain has improved. Time: 10:46 Reevaluation #2: Patient's chest pain has completely resolved. Patient reports that she believes that her symptoms are attributed to anxiety attacks. Patient's troponin was negative, and her symptoms have been ongoing for the last 4 days. D-dimer is negative and a chest x-ray normal, electrolytes normal, elevated alk-phos at 132, has had elevated readings chronically. Urine unremarkable. Is unclear what is causing patient's chest pain however patient's symptoms have completely resolved. The chest pain is nonexertional. Discussed with patient the importance of following up with her housing management representative as well as her primary care physician regarding this visit, advised to call tomorrow to make an appointment. Patient given a prescription for hydroxyzine to help alleviate panic attacks/anxiety. Discussed that this is not a good long-term solution for her panic in that this could be better managed with her primary care physician or psychiatrist. Vital signs have remained stable, patient is comfortable and would like to be discharged at this time. Patient understands with the plan and agrees to return should her chest pain, shortness a breath, or palpitations return. Patient stable for discharge. Time: 13:20 Medications Administered Discontinued Medications Generic Name Dose Route Start Last Admin Trade Name Freq PRN Reason Stop Dose Admin Aspirin 324 mg 02/15/23 09:28 02/15/23 09:55 Aspirin 81 Mg Tab.Chew PO 02/15/23 09:29 324 mg ONCE ONE Administration Medical Decision Making Medical Decision Making [facility] Narrative: This is a 89-izlv-bvw-female, with a past medical history of GERD, insomnia, IBS, breast cancer, environmental allergies, radiation fibrosis of lung, primary osteoarthritis of right hand, and fibromyalgia, who presents for evaluation of chest pain x 4 days, worsening today. On examination, patient's bp 95/46, repeat 120/69, all other VS within normal limits. Patient heart is RRR, lung sounds clear to auscultation. Pt has some mild diffuse abdominal tenderness with normoactive bowel sounds, no point tenderness, no rebound or guarding. Patient also having associated shortness of breath. Due to prior cancer history, will obtain ddimer, but patient is not hypoxic, tachycardic or have any other risk factors. Labs, EKG, chest x-ray, and viral swabs obtained. Pt medicated with ASA x 4, held off on nitroglycerin due to low blood pressure. Differential Diagnosis Differential Diagnoses: The differential diagnosis associated with the presentation includes ACS, PE, costochondritis, pneumonia Admission/Observation Consideration of admission/observation: Escalation of care including admission/observation considered Lab Data [facility] Lab Attestation statement: I reviewed the patient's lab results. 02/15/23 09:36 04/16/23 09:36 Labs: Lab Results 02/15/23 02/15/23 02/15/23 Range/Units 09:36 09:36 09:36 WBC 3.8 L (4.8-10.8) X10*3/uL RBC 4.33 (4.20-5.50) X10*6/uL Hgb 12.9 (12.0-16.0) g/dl Hct 39.3 (37.0-47.0) % MCV 90.8 (80.0-98.0) fL MCH 29.8 (27.0-33.0) pg MCHC 32.8 (31.0-35.0) g/dl RDW 13.5 (11.0-16.0) % Plt Count 283 (160-400) X10*3/uL MPV 8.9 L (9.4-12.3) fL Immature Gran % (Auto) 0.3 (0.0-0.4) % Neut % (Auto) 48.5 (45-73) % Lymph % (Auto) 43.0 H (20-40) % [place] % (Auto) 6.6 (2-11) % Eos % (Auto) 1.3 (0-4) % Baso % (Auto) 0.3 (0-2) % Lymph # (Auto) 1.6 (1.2-4.9) X10*3/uL [place] # (Auto) 0.3 (0.1-1.2) X10*3/uL Eos # (Auto) 0.1 (0.0-0.4) X10*3/uL Baso # (Auto) 0.0 (0.0-0.2) X10*3/uL Abs Immat Gran (auto) 0.01 (0.00-0.03) X10*3/uL Absolute Neuts (auto) 1.9 L (2.0-8.3) x10*3/uL Absolute Nucleated RBC 0.000 (0.0-0.012) X10*3/uL Nucleated RBC % (auto) 0.0 (0.0-0.2) /100WBC D-Dimer High Sensitivty NG/ML Sodium 143 (135-145) mmol/L Potassium 3.9 D (3.3-5.1) mmol/L Chloride 109 H (96-108) mmol/L Carbon Dioxide 29 (22-29) mmol/L Anion Gap 9 L (12-20) BUN 15 (9-16) mg/dL Creatinine 0.85 (0.5-1.4) mg/dL Estim Creat Clear Calc 49.4 Estimated GFR > 60 Random Glucose 80 (60-115) mg/dL Calcium 9.5 (8.4-10.2) mg/dL Magnesium (1.6-2.6) mg/dL Total Bilirubin 0.4 (0.0-1.0) mg/dL Direct Bilirubin (0.0-0.5) mg/dL AST 23 (5-31) U/L ALT 17 (0-31) U/L Alkaline Phosphatase 125 H (39-117) U/L Troponin I High Sens < 2.7 (<3.5-17.0) ng/L Total Protein 6.6 (6.5-8.0) g/dL Albumin 4.4 (3.5-5.0) g/dL Urine Color Urine Appearance Urine pH (5.0-9.0) Ur Specific [place] (1.005-1.025) Urine Protein (Neg-Trace) mg/dL Urine Glucose (UA) (Negative) mg/dL Urine Ketones (Negative) mg/dL Urine Blood (Negative) Urine Nitrite (Negative) Ur Leukocyte Esterase (Negative) Influenza Type A (PCR) (Negative) Influenza Type B (PCR) (Negative) RSV RNA Qual (PCR) (Negative) SARS-CoV-2 RNA (RT-PCR) (Negative) 02/15/23 02/15/23 02/15/23 Range/Units 10:30 10:30 10:30 WBC (4.8-10.8) X10*3/uL RBC (4.20-5.50) X10*6/uL Hgb (12.0-16.0) g/dl Hct (37.0-47.0) % MCV (80.0-98.0) fL MCH (27.0-33.0) pg MCHC (31.0-35.0) g/dl RDW (11.0-16.0) % Plt Count (160-400) X10*3/uL MPV (9.4-12.3) fL Immature Gran % (Auto) (0.0-0.4) % Neut % (Auto) (45-73) % Lymph % (Auto) (20-40) % [place] % (Auto) (2-11) % Eos % (Auto) (0-4) % Baso % (Auto) (0-2) % Lymph # (Auto) (1.2-4.9) X10*3/uL [place] # (Auto) (0.1-1.2) X10*3/uL Eos # (Auto) (0.0-0.4) X10*3/uL Baso # (Auto) (0.0-0.2) X10*3/uL Abs Immat Gran (auto) (0.00-0.03) X10*3/uL Absolute Neuts (auto) (2.0-8.3) x10*3/uL Absolute Nucleated RBC (0.0-0.012) X10*3/uL Nucleated RBC % (auto) (0.0-0.2) /100WBC D-Dimer High Sensitivty < 150 NG/ML Sodium (135-145) mmol/L Potassium (3.3-5.1) mmol/L Chloride (96-108) mmol/L Carbon Dioxide (22-29) mmol/L Anion Gap (12-20) BUN (9-16) mg/dL Creatinine (0.5-1.4) mg/dL Estim Creat Clear Calc Estimated GFR Random Glucose (60-115) mg/dL Calcium (8.4-10.2) mg/dL Magnesium 2.1 (1.6-2.6) mg/dL Total Bilirubin 0.4 (0.0-1.0) mg/dL Direct Bilirubin 0.1 (0.0-0.5) mg/dL AST 22 (5-31) U/L ALT 15 (0-31) U/L Alkaline Phosphatase 132 H (39-117) U/L Troponin I High Sens (<3.5-17.0) ng/L Total Protein 6.7 (6.5-8.0) g/dL Albumin 4.5 (3.5-5.0) g/dL Urine Color Urine Appearance Urine pH (5.0-9.0) Ur Specific [place] (1.005-1.025) Urine Protein (Neg-Trace) mg/dL Urine Glucose (UA) (Negative) mg/dL Urine Ketones (Negative) mg/dL Urine Blood (Negative) Urine Nitrite (Negative) Ur Leukocyte Esterase (Negative) Influenza Type A (PCR) NEGATIVE (Negative) Influenza Type B (PCR) NEGATIVE (Negative) RSV RNA Qual (PCR) NEGATIVE (Negative) SARS-CoV-2 RNA (RT-PCR) NEGATIVE (Negative) 02/15/23 Range/Units 10:56 WBC (4.8-10.8) X10*3/uL RBC (4.20-5.50) X10*6/uL Hgb (12.0-16.0) g/dl Hct (37.0-47.0) % MCV (80.0-98.0) fL MCH (27.0-33.0) pg MCHC (31.0-35.0) g/dl RDW (11.0-16.0) % Plt Count (160-400) X10*3/uL MPV (9.4-12.3) fL Immature Gran % (Auto) (0.0-0.4) % Neut % (Auto) (45-73) % Lymph % (Auto) (20-40) % [place] % (Auto) (2-11) % Eos % (Auto) (0-4) % Baso % (Auto) (0-2) % Lymph # (Auto) (1.2-4.9) X10*3/uL [place] # (Auto) (0.1-1.2) X10*3/uL Eos # (Auto) (0.0-0.4) X10*3/uL Baso # (Auto) (0.0-0.2) X10*3/uL Abs Immat Gran (auto) (0.00-0.03) X10*3/uL Absolute Neuts (auto) (2.0-8.3) x10*3/uL Absolute Nucleated RBC (0.0-0.012) X10*3/uL Nucleated RBC % (auto) (0.0-0.2) /100WBC D-Dimer High Sensitivty NG/ML Sodium (135-145) mmol/L Potassium (3.3-5.1) mmol/L Chloride (96-108) mmol/L Carbon Dioxide (22-29) mmol/L Anion Gap (12-20) BUN (9-16) mg/dL Creatinine (0.5-1.4) mg/dL Estim Creat Clear Calc Estimated GFR Random Glucose (60-115) mg/dL Calcium (8.4-10.2) mg/dL Magnesium (1.6-2.6) mg/dL Total Bilirubin (0.0-1.0) mg/dL Direct Bilirubin (0.0-0.5) mg/dL AST (5-31) U/L ALT (0-31) U/L Alkaline Phosphatase (39-117) U/L Troponin I High Sens (<3.5-17.0) ng/L Total Protein (6.5-8.0) g/dL Albumin (3.5-5.0) g/dL Urine Color Yellow Urine Appearance Clear Urine pH 6.0 (5.0-9.0) Ur Specific [place] 1.010 (1.005-1.025) Urine Protein Negative (Neg-Trace) mg/dL Urine Glucose (UA) Negative (Negative) mg/dL Urine Ketones Negative (Negative) mg/dL Urine Blood Negative (Negative) Urine Nitrite Negative (Negative) Ur Leukocyte Esterase Negative (Negative) Influenza Type A (PCR) (Negative) Influenza Type B (PCR) (Negative) RSV RNA Qual (PCR) (Negative) SARS-CoV-2 RNA (RT-PCR) (Negative) Independent Interpretation I performed an independent interpretation of an: EKG and Plain X-Ray Interpretation: I have reviewed chest x-ray independently and agree with the radiology report. EKG is normal sinus rhythm with a ventricular rate of 82 beats per minute, MN interval 140, QRS 76, QTC 383. No ST elevation or depression. No acute ischemic changes. Similar appearing EKG from previous. Radiology Impression Discussion of test interpretation with radiology: I have reviewed the radiologist's reading. Radiologist Impression: EXAMINATION: XR CHEST CLINICAL INFORMATION: Chest pain. COMPARISON: None available. TECHNIQUE: 2 views of the chest were obtained. FINDINGS: No significant abnormality is noted involving the heart, lungs, mediastinum, or bony thorax. Asymmetry of the right breast tissue, likely postsurgical. Right breast and right axillary surgical clips. XR/XR chest 2V IMPRESSION: No suspicious radiographic finding. Dictated By: Davide Lara External Record Review External record reviewed: Inpatient record, Office record, Outpatient record, Prior outpatient labs, Prior outpatient radiology, Primary care record and Outside ED record Scores Heart Score History: -0- slightly suspicious ECG: -0- normal Age: -1- >45 - <65 Risk factory: -0- no risk factors known Troponin: -0- < or = normal limit Score: 1 Risk: 1.7% Discharge Plan Discharge Clinical Impression: Chest pain, Anxiety Patient Disposition: Home, Self-Care Instructions: Chest Pain (ED), Generalized Anxiety Disorder (ED), Panic Disorder (ED), Anxiety (ED) Additional Instructions: Your chest x-ray was normal today, your labs are reassuring. We discussed your panic and anxiety, I am prescribing you a medication called hydroxyzine. Only take this medication when you have these symptoms, this is not a medication you take every day. Please follow-up with your primary care physician as well as her housing management representative regarding this visit. Call tomorrow to make an appointment. If any new or worsening symptoms occur including but not limited to worsening chest pain, shortness of breath, palpitations, dizziness, please return for re- evaluation. Peña radiograf?a de t?rax fue normal hoy, jorge laboratorios son tranquilizadores. Hablamos de peña p?ashley y ansiedad, le estoy recetando un medicamento llamado hidroxizina. Solo tome cristiana medicamento cuando tenga estos s?ntomas, no es un medicamento que tome todos los d?as. Tonny un seguimiento con peañ m?dico de atenci?n primaria y peña cardi?logo con respecto a esta visita. Llame ma?naina para hacer bernabe gavi. Si se presentan s?ntomas nuevos o que empeoran, incluidos, entre otros, dolor en el pecho que empeora, dificultad para respirar, palpitaciones, mareos, regrese para bernabe nueva evaluaci?n. Prescriptions: New hydroxyzine HCl 25 mg tablet 25 mg PO BID PRN (Reason: anxiety) Qty: 7 0RF No Action Advair HFA 115-21 mcg/actuation HFA aerosol inhaler 2 puff PO BID Qty: 12 6RF melatonin 5 mg tablet 10 mg PO BEDTIME PRN (Reason: Sleep) 90 Days Qty: 90 1RF famotidine 40 mg tablet 40 mg PO BEDTIME Qty: 90 3RF sumatriptan succinate 50 mg Tablet 50 mg PO DAILY PRN (Reason: Headache) Qty: 14 0RF uknzpjjxcq-swaprqkdewwvv-pjrt 50-325-40 mg Tablet 1 tab PO Q6H PRN (Reason: Headache) Qty: 30 0RF loratadine 10 mg tablet 10 mg PO DAILY amlodipine 2.5 mg tablet 2.5 mg PO DAILY mirtazapine 45 mg tablet 45 mg PO BEDTIME buspirone 15 mg tablet 15 mg PO TID sertraline 100 mg tablet 200 mg PO DAILY olanzapine 20 mg tablet 20 mg PO BEDTIME clonazepam 1 mg tablet 1 mg PO BID PRN (Reason: Anxiety) prazosin 2 mg capsule 4 mg PO BEDTIME magnesium oxide 400 mg (241.3 mg magnesium) tablet 400 mg PO DAILY 30 Days Qty: 30 6RF albuterol sulfate [ProAir HFA] 90 mcg/actuation HFA aerosol inhaler 2 puff inhalation Q6H PRN (Reason: for wheezing) 30 Days Qty: 8.5 6RF pregabalin [Lyrica] 225 mg capsule 225 mg PO BEDTIME ibuprofen 600 mg tablet 600 mg PO BID cyclobenzaprine 5 mg tablet 5 mg PO TID PRN (Reason: pain) ropinirole 0.25 mg tablet 0.5 mg PO TID 30 Days Qty: 180 3RF Rx Instructions: take in the evening acetaminophen 650 mg tablet extended release 650 mg PO ONCE PRN (Reason: pain) psyllium husk [Fiber (psyllium husk)] 0.4 gram capsule 0.4 g PO BID Qty: 60 6RF cyanocobalamin (vitamin B-12) 100 mcg tablet 100 mcg PO DAILY acetaminophen 500 mg tablet 500 mg PO Q4-6H PRN (Reason: Pain, Mild) nabumetone 500 mg tablet 500 mg PO BID cholecalciferol (vitamin D3) 50 mcg (2,000 unit) capsule 50 mcg PO DAILY diclofenac sodium 1 % gel 2 g topical TID sennosides [senna] 8.6 mg tablet 17.2 mg PO BEDTIME Qty: 60 6RF Rx Instructions: TWO tablets every night, not one as she was told by the phamacist. simethicone 180 mg capsule 180 mg PO QID 30 Days Qty: 120 6RF Rx Instructions: after meals dicyclomine 20 mg tablet 40 mg PO QID 30 Days Qty: 240 3RF peg 3350-electrolytes [Golytely] 236-22.74-6.74 -5.86 gram recon soln 240 ml PO Q10M 1 Days Qty: 4000 0RF Rx Instructions: until fecal effluent is clear; do not exceed a total volume of 2,000 mL omeprazole 20 mg capsule,delayed release(DR/EC) 20 mg PO DAILY 30 Days Qty: 30 6RF amitriptyline 100 mg tablet 100 mg PO BEDTIME Print Language: Maltese
[2023-02-15 09:41] LABS: MANUAL DIFF FLAG NO
[2023-02-15 09:44] LABS: Basophils Percent Auto 0.3 % (0-2); Eosinophils Absolute Auto 0.1 X10*3/uL (0.0-0.4); Eosinophils Percent Auto 1.3 % (0-4); Hematocrit 39.3 % (37.0-47.0); Hemoglobin 12.9 g/dl (12.0-16.0); Imm Gran Abs Auto 0.01 X10*3/uL (0.00-0.03); Imm Gran Pct Auto 0.3 % (0.0-0.4); Lymphocytes Absolute Auto 1.6 X10*3/uL (1.2-4.9); Mean Corpuscular HGB Conc 32.8 g/dl (31.0-35.0); Mean Corpuscular Hemoglobin 29.8 pg (27.0-33.0); Mean Corpuscular Volume 90.8 fL (80.0-98.0); Mean Platelet Volume 8.9 fL (9.4-12.3); Monocytes Absolute Auto 0.3 X10*3/uL (0.1-1.2); Monocytes Percent Auto 6.6 % (2-11); Neutrophils Absolute Auto 1.9 x10*3/uL (2.0-8.3); Neutrophils Percent Auto 48.5 % (45-73); Platelet Count 283 X10*3/uL (160-400); Red Blood Count 4.33 X10*6/uL (4.20-5.50); Red Cell Distribution Width 13.5 % (11.0-16.0); White Blood Count 3.8 X10*3/uL (4.8-10.8)
[2023-02-15] MEDS: Aspirin 81 MG TAB.CHEW 324 MG PO (09:55)
[2023-02-15 10:01] LABS: Alanine Aminotransferase 17 U/L (0-31); Albumin Level 4.4 g/dL (3.5-5.0); Alkaline Phosphatase 125 U/L (39-117); Anion Gap 9 (12-20); Aspartate Amino Transferase 23 U/L (5-31); Bilirubin Total 0.4 mg/dL (0.0-1.0); Blood Urea Nitrogen 15 mg/dL (9-16); Calcium 9.5 mg/dL (8.4-10.2); Carbon Dioxide 29 mmol/L (22-29); Chloride 109 mmol/L (96-108); Creatinine Clr Calc Pharmacy 49.4; Estimated Glomerular Filt Rate > 60; Glucose Random 80 mg/dL (60-115); Potassium 3.9 mmol/L (3.3-5.1); Sodium 143 mmol/L (135-145); Total Protein 6.6 g/dL (6.5-8.0)
[2023-02-15 10:11] LABS: Troponin-I High Sensitivity < 2.7 ng/L (<3.5-17.0)
[2023-02-15 10:55] LABS: Alanine Aminotransferase 15 U/L (0-31); Albumin Level 4.5 g/dL (3.5-5.0); Alkaline Phosphatase 132 U/L (39-117); Aspartate Amino Transferase 22 U/L (5-31); Bilirubin Direct 0.1 mg/dL (0.0-0.5); Bilirubin Total 0.4 mg/dL (0.0-1.0); Magnesium 2.1 mg/dL (1.6-2.6); Total Protein 6.7 g/dL (6.5-8.0)
[2023-02-15 11:13] LABS: Influenza A PCR NEGATIVE (Negative); Influenza B PCR NEGATIVE (Negative); Resp Syncy Virus RNA Qual PCR NEGATIVE (Negative); SARS COV2 PCR INHOUSE NEGATIVE (Negative)
[2023-02-15 11:16] LABS: Appearance Urine Clear; Color Urine Yellow; Glucose Urine UA Negative (Negative); Leukocyte Esterase Urine Negative (Negative); Nitrite Urine Negative (Negative); Urine Blood Negative (Negative); Urine Ketones Negative (Negative); Urine Protein Negative (Neg-Trace)
[2023-02-15 11:31] LABS: D Dimer High Sensitivity < 150 NG/ML
[2023-02-15 12:07] VITALS: BP 106/57; PULSE 74; RESP 20; O2SAT 100
[2023-02-15 13:25] VITALS: BP 107/61; PULSE 81; RESP 16; O2SAT 100
== END 2023-02-15 13:31 | disposition home or self-care (01) ==
PROVIDERS: Physician Assistant Medical; Emergency Provider Emergency Medicine
DX: R07.89 Other chest pain (principal); F41.1 Generalized anxiety disorder; F43.0 Acute stress reaction; Z20.822 Contact with and (suspected) exposure to COVID-19; Z20.828 Contact with and (suspected) exposure to other viral communicable diseases; Z87.891 Personal history of nicotine dependence; Z79.899 Other long term (current) drug therapy
CPT/HCPCS: 0241U; 36415; 71046; 80053; 80076; 81003; 83735; 84484; 85025; 85379; 93005; 99285

== ENCOUNTER → 2023-03-13 13:29 | Outpatient (BNVA) | payer MEDICAID, SELFPAY | PROVIDERS: PCP Internal Medicine; Visit Provider Internal Medicine Pulmonary Disease | DX: J70.1 Chronic and other pulmonary manifestations due to radiation (principal); R06.00 Dyspnea, unspecified | CPT/HCPCS: 99212 ==

== ENCOUNTER 2023-03-23 07:36 | Outpatient (REF) | payer MEDICAID, SELFPAY ==
[2023-03-23 08:30] LABS: Anion Gap 14 (12-20); Blood Urea Nitrogen 15 mg/dL (9-16); Calcium 9.5 mg/dL (8.4-10.2); Carbon Dioxide 29 mmol/L (22-29); Chloride 106 mmol/L (96-108); Estimated Glomerular Filt Rate > 60; Glucose Random 89 mg/dL (60-115); Potassium 4.6 mmol/L (3.3-5.1); Sodium 144 mmol/L (135-145)
[2023-03-23 08:52] LABS: Cortisol Random 6.1 ug/dL
== END 2023-03-23 07:37 | disposition home or self-care (01) ==
LOC: HO.LAB 07:36
PROVIDERS: PCP Internal Medicine; Visit Provider Internal Medicine
DX: I95.89 Other hypotension (principal)
CPT/HCPCS: 36415; 80048; 82533

== ENCOUNTER 2023-04-07 08:17 | Outpatient (REF) | payer MEDICAID, SELFPAY ==
[2023-04-07 09:31] LABS: Anion Gap 11 (12-20); Blood Urea Nitrogen 19 mg/dL (9-16); Calcium 9.6 mg/dL (8.4-10.2); Carbon Dioxide 27 mmol/L (22-29); Chloride 110 mmol/L (96-108); Estimated Glomerular Filt Rate > 60; Glucose Random 82 mg/dL (60-115); Potassium 4.7 mmol/L (3.3-5.1); Sodium 143 mmol/L (135-145)
[2023-04-07 09:46] LABS: Cortisol Random 6.8 ug/dL
== END 2023-04-07 08:18 | disposition home or self-care (01) ==
LOC: HO.LAB 08:17
PROVIDERS: Visit Provider Internal Medicine
DX: I95.89 Other hypotension (principal)
CPT/HCPCS: 36415; 80048; 82533

== ENCOUNTER → 2023-04-08 11:16 | Outpatient (BNVA) | payer MEDICAID, SELFPAY | PROVIDERS: PCP Internal Medicine; Visit Provider Physician Assistant | DX: M77.8 Other enthesopathies, not elsewhere classified (principal); M25.511 Pain in right shoulder | CPT/HCPCS: 99202 ==

== ENCOUNTER → 2023-04-14 10:11 | Outpatient (BNVA) | payer MEDICAID, SELFPAY | PROVIDERS: PCP Internal Medicine; Visit Provider Internal Medicine Rheumatology | DX: M79.7 Fibromyalgia (principal); M25.641 Stiffness of right hand, not elsewhere classified; M77.8 Other enthesopathies, not elsewhere classified; R76.8 Other specified abnormal immunological findings in serum; R20.0 Anesthesia of skin; R20.2 Paresthesia of skin | CPT/HCPCS: 99212 ==

== ENCOUNTER → 2023-04-21 09:54 | Outpatient (BNVA) | payer MEDICAID, SELFPAY | PROVIDERS: PCP Internal Medicine; Visit Provider Nurse Practitioner Family | DX: G47.00 Insomnia, unspecified (principal); R25.2 Cramp and spasm | CPT/HCPCS: 99212 ==

== ENCOUNTER → 2023-04-24 08:34 | Outpatient (REF) | payer MEDICAID, SELFPAY ==
--- NOTE | 2023-04-24 08:37 | CA_ITS ---
Transthoracic Echocardiogram Patient (Last, First, Middle): Diana Myles L Gender: Female Date of : 1965 Age: 58 Procedure Date: 04/24/2023 Procedure Type: Transthoracic Echocardiogram Location: OP Height: 157.48 cm Weight: 45.36 kg BSA: 1.42 m2 Heart Rate: bpm BP: 100 / 50 mmHg Sales Representative: TO Referring MD: Vitaliy Yoo MD Symptoms: I42.9 CMP Study Quality: Fair/Contrast ECG Rhythm: Sinus Conclusions: - The left ventricular systolic function is mildly decreased. The calculated ejection fraction is 50% by biplane method. - The basal inferior and basal inferolateral segments are akinetic. - No obvious valvular pathology seen on this study. Findings Procedure Information Contrast agent, definity, is being given per protocol without apparent complications. Left Ventricle Normal left ventricular cavity size. There is normal left ventricular wall thickness. The left ventricular systolic function is mildly decreased. The calculated ejection fraction is 50% by biplane method. Diastolic function is normal for age. Wall Motion Rest Echo Findings The basal inferior and basal inferolateral segments are akinetic. Right Ventricle Normal right ventricular cavity size and systolic function. Atria Both atria are normal in size. Aortic Valve There is a normal trileaflet aortic valve. There is no aortic valve stenosis. There is no aortic valve regurgitation. Mitral Valve The mitral valve appears normal. There is no mitral valve regurgitation. There is no mitral valve stenosis. Pulmonic Valve The pulmonic valve is likely normal. Tricuspid Valve Normal tricuspid valve structure. There is mild tricuspid valve regurgitation. There is no evidence of pulmonary hypertension. Great Vessels The asc aorta is normal in size. Venous The inferior vena cava is normal in size and collapses greater than 50% with inspiration. Pericardium/Pleural There is no evidence of pericardial effusion. Prior Study Comparison Changes noted compared to prior study dated: 11/15/2020. see comments on wall motion. Recommendations, Care & Conclusions No obvious valvular pathology seen on this study. Measurements 2D Linear Measurements IVSd: 0.66 0.6-0.9/0.6-1.0 cm LVIDd: 3.83 3.9-5.3/4.2-5.9 cm LVIDd Index: 2.70 2.4-3.2/2.2-3.1 cm/m2 LVIDs: 2.94 2.0-3.6 cm LVPWd: 0.60 0.7-1.1 cm LA Diam: 2.90 2.7-3.8/3.0-4.0 cm LAIDs Index: 2.04 1.5-2.3 cm/m2 LV Mass: 77.99 67-162/88-224 g LV Mass Index: 54.92 43-95/49-115 g/m2 LVOT Diam: 1.80 3.0+(-)1.3 cm 2D Systolic Function EF 4C: 49.00 >55% EF 2C: 57.80 >55% EF BiP: 50.10 >55% Mitral Valve MV Pk E: 0.65 MV PK A: 0.52 MV Decel Time: 214.00 E/A: 1.20 E'Lateral: 11.60 E'Medial: 8.16 E/E' Med: 7.90 E/E' Lat: 5.60 PHT: 63.00 MVA PHT: 3.49 Decel Graves: 3.02 Aortic Valve AoV Pk Octavio: 1.09 AoV Mn Octavio: 0.76 AoV VTI: 0.23 AoV Pk Grad: 5.00 Aov Mn Grad: 3.00 BART Cont.VTI: 1.88 LVOT LVOT Pk Octavio: 0.80 LVOT Mn Octavio: 0.55 LVOT VTI: 0.17 LVOT Pk Grad: 3.00 LVOT Mn Grad: 1.00 LVOT Diam: 1.80 LVOT Area: 2.54 Diastolic Function MV Pk E: 0.65 MV Pk A: 0.52 E/A: 1.20 E'Medial: 8.16 E/E' Med: 7.90 E' Laterial: 11.60 E/E' Lat: 5.60 Right Ventricle TAPSE (mm): 21.10 TVS' Octavio: 11.30 Tricuspid Valve TR Pk Octavio: 2.10 TR Pk Grad: 18.00 RA Press: 3.00 RVSP: 21.00 Great Vessels Aorta Sinus of Valsalva: 2.99 2.0-3.5 cm Ao Asc: 2.50 2.1-3.4 cm Updated in Other Vendor System with Status of Final Juan Ferrell MD electronically signed on 04/26/2023 9:55:00 AM with status of Final
== END ==
LOC: HO.CARD 08:34
PROVIDERS: Visit Provider Internal Medicine Cardiovascular Disease
DX: I42.9 Cardiomyopathy, unspecified (principal)
CPT/HCPCS: 93306; Q9957

== ENCOUNTER 2023-05-04 13:00 | Outpatient (RCR) | payer MEDICAID, SELFPAY ==
--- NOTE | 2023-04-15 13:12 | MHC.PT.EP ---
[facility] [place] Office [place] Office [place] Office [address] [phone] F: [phone] F: [phone] F: [phone] F: [phone] Physical Therapy Plan of Care Date of Evaluation: Date of Surgery: Diagnosis: R shoulder pain Assessment: 58 y/o RHD female referred to PT with R shoulder pain. Pt poor historian with very flat affect and unclear history of this condition. Her pain is located anterior-superior shoulder resulting in pain and difficulty with everything , reaching, lifting, grooming, dressing, ADL's secondary to decreased shoulder AROM, decreased R shoulder strength, pain, and impaired postural awareness. Recommend PT 2x/week for 4 weeks to address impairments, implement HEP, and optimize functional mobility. Frequency and Duration: The patient will be seen 2x/week for 4 weeks Short Term Goals: 2 weeks Compliant with HEP Improve R shoulder AROM flexion to 120 Shelter Goals: 4 weeks I with HEP and self management of sx Pt will improve SPADI to 110 (IR 124/130) Pt will demonstrated improved ability to reach into overhead cabinets Treatment Plan: Modalities to reduce pain, spasms and effusion. Manual therapy to restore motion and function. Therapeutic exercise to improve strength and flexibility. Neuromuscular re-education for posture and balance. Therapeutic activities to return to functional activities of daily living. Electronically signed by: Lorri Lara PT Please sign and return to therapist. Thank you for your referral.
--- NOTE | 2023-06-18 14:34 | MHC.PT.DC ---
[facility] [place] Office [place] Office [place] Office [address] Ariana Stafford [address] [phone] F: [phone] F: [phone] F: [phone] F: [phone] Physical Therapy Discharge Report Diagnosis: R shoulder pain Date of Surgery: Date of Evaluation: 04/15/23 Date of Discharge: 06/18/23 Treatments to Date: 4 Cancellations to Date: 0 No Shows to Date: 2 Discharge Status: Discharge Summary: Pt with 2 consecutive no show visits and therefore d/c. DUring last attended visits, educated pt on importance of gentle movement for pain management and to decrease stiffness of shoulder. Electronically signed by: Lorri Lara PT Please sign and return to therapist. Thank you for your referral.
== END 2023-06-18 14:35 | disposition home or self-care (01) ==
LOC: HO.PT 13:00
PROVIDERS: PCP Internal Medicine; Visit Provider Nurse Practitioner Family
DX: M25.511 Pain in right shoulder (principal)
CPT/HCPCS: 97110; 97162

== ENCOUNTER 2023-06-16 08:05 | Outpatient (REF) | payer MEDICAID, SELFPAY | END 2023-06-16 08:06 | disposition home or self-care (01) | LOC: HO.LAB 08:05 | PROVIDERS: PCP Internal Medicine; Visit Provider Internal Medicine | DX: Z13.89 Encounter for screening for other disorder (principal) ==

== ENCOUNTER 2023-06-29 09:52 | Outpatient (AMB) | payer MEDICAID, SELFPAY ==
--- NOTE | 2023-06-29 09:57 | MHC.OFFVIS ---
Intake Vital Signs 06/29/23 10:08 Height 5 ft 2 in Weight 101 lb BMI 18.5 Intake Visit Reasons: O/V S/P P.T Right shoulder tendinitis Intake Note: Diana a 58 year old right hand dominant female who presents today for a follow up of right shoulder. Patient reports working with PT to improve ROM, she experienced an increase of pain and missed an appointment. She was advised by PT to be re-evaluated and d/c due to no show. She is open to discussing a cortisone injection today. Allergies codeine [CODEINE] Allergy (Intermediate, Verified 06/29/23 10:02) DIZZY/NAUSEA, nausea/vomiting escitalopram [From LEXAPRO] Allergy (Intermediate, Verified 06/29/23 10:02) ? NAUSEA meperidine [MEPERIDINE] Allergy (Intermediate, Verified 06/29/23 10:02) NAUSEA morphine [MORPHINE] Allergy (Intermediate, Verified 06/29/23 10:02) PALPITATIONS, palpitation oxycodone [OXYCODONE] Allergy (Intermediate, Verified 06/29/23 10:02) PALPATATIONS, palpitations tramadol Allergy (Unknown, Verified 06/29/23 10:02) dizziness, nausea acetaminophen [From Percocet] Allergy (Verified 06/29/23 10:02) Shakiness HPI O/V S/P P.T Right shoulder tendinitis HPI Details 58-year-old right hand dominant female who returns to the office today for a follow-up of right shoulder pain. She continues to have pain in her shoulder which is aggravated at night and with the use of her hand or lifting. She states she missed a therapy session due to increased pain and was later discontinued by the physical therapy due to no-showing. She is interested in having a cortisone injection. She has a history of shoulder surgery. She does not have a history of diabetes. [facility] Medical History Anxiety Depression Diarrhea Fibromyalgia Migraine Migraine equivalent syndrome Periodontal disease Primary osteoarthritis of right hand Somatization disorder Surgical History History of esophagogastroduodenoscopy (EGD) History of lumpectomy Hx of section Hx of colonoscopy Hx of shoulder surgery Family History Mother HTN (hypertension) Sister Breast cancer Bone cancer Colon polyps Sister Osteoporosis Hypercholesteremia Colon polyps Social History Household Members: Children Housing: Apartment Are you a primary care provider to a significant other at home: No Do you presently have visiting nurse or other home services: Yes Alcohol intake: never Patient Tobacco Use Status: Former Tobacco user Years Smoked: 3 service: No Current occupational status: disabled 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 Review of Systems Const All systems reviewed & are unremarkable except as noted in HPI and below Physical Exam Vital Signs: BMI result Body Mass Index 18.5 Const General: cooperative, healthy appearing, comfortable, no acute distress, well developed and alert Orientation/consciousness: patient oriented x3 HEENT Head: Yes normal to inspection, Yes normocephalic and Yes atraumatic Eyes General: appearance normal, both eyes and all related structures Resp Effort & Inspection: normal respiratory effort and able to speak in complete sentences Cardio Rate: regular rate Peripheral pulses: Peripheral pulses 2+ throughout GI Palpation (GI): Soft to palpation Skin Lesions: no lesions Rashes: no rashes Neuro General: patient oriented x3 Extrem Other: Right shoulder normal to inspection. Tenderness over the bicipital groove and along the deltoid region of the shoulder. Forward flexion to 175, external rotation to 90, internal rotation to S1. 5/5 RTC strength. Positive Diaz and cross body abduction. NVI. Office Procedures Joint Injection/Drain Joint Injection/Drain Primary Site: right shoulder Prep: site was prepped using aseptic technique, ethochloride spray was applied and injection warnings given Injected: 80 mg of, DepoMedrol, with 8 mL of, 1% plain lidocaine and in the subcromial space Approach Used: posterolateral Procedure: The patient tolerated the procedure well and there was some relief with the local anesthesia Coding 52047 - Glenohumeral/Tronchanteric Bursa/Intraarticular Procedure code (CPT) selection complete Results Reviewed Results Reviewed: 06/29/23 10:20 Lidocaine HCl 2 % MPF [Xylocaine 2 % MPF] 5 ml .ROUTE .STK-MED ONE methylPREDNISolone acetate [DEPO-MedroL] 80 mg .ROUTE .STK-MED ONE Assessment & Plan Assessment & Plan (1) Right shoulder tendinitis: Code(s): M77.8 - Other enthesopathies, not elsewhere classified Plan We discussed options today which include steroid injection. They did consent to move forward with the right shoulder injection, which was tolerated well. I recommended rest, ice and elevation and OTC anti-inflammatories PRN for discomfort. She was also referred back to physical therapy in the office today. If symptoms persist or worsens over the next 6-8 weeks, patient will contact the office, otherwise follow-up as needed. Orders: Orders PT Evaluation and Treatment Today M77.8 - Other enthesopathies, not elsewhere classified Patient Instructions: Scribed for Denilson Forman PA-C, by David Rutherford medical record clerk, on 06/29/2023 at 10:00 AM JACKSON. Denilson Jewell PA-C, have personally reviewed and agree with the information entered by the scribe. Coding Level of Care Code Est Pt Level 3 (84102) Diagnoses Right shoulder tendinitis M77.8 CPT Codes Coding - Joint 7: 30922 - Glenohumeral/Tronchanteric Bursa/Intraarticular ([id number])
[2023-06-29 10:08] VITALS: BMI 18.5
== END 2023-06-29 10:38 | disposition home or self-care (01) ==
PROVIDERS: Visit Provider Physician Assistant
DX: M77.8 Other enthesopathies, not elsewhere classified (principal)
CPT/HCPCS: 20610; 99213

== ENCOUNTER → 2023-06-29 09:52 | Outpatient (BNVA) | payer MEDICAID, SELFPAY | PROVIDERS: Visit Provider Physician Assistant | DX: M77.8 Other enthesopathies, not elsewhere classified (principal); M25.511 Pain in right shoulder | CPT/HCPCS: 20610; 99212; 99213; J1040 ==

== ENCOUNTER 2023-06-30 11:22 | Outpatient (AMB) | payer MEDICAID, SELFPAY ==
[2023-06-30 11:42] VITALS: BMI 18.5
--- NOTE | 2023-06-30 11:42 | A.OFFVIS_ITS ---
Intake Vital Signs 06/30/23 11:42 Height 5 ft 2 in Weight 101 lb BMI 18.5 Intake Visit Reasons: O/V right hand numb& ting sx discuss Intake Note: Diana 58 year old right hand dominant female presents today for her follow up visit for her right hand CTS and stiffness in her right middle, ring and small finger for the last 5 years. Has tried O.T in 2019 for stiffness but had very little improvement. No injury. No EMG study done yet. Allergies codeine [CODEINE] Allergy (Intermediate, Verified 06/29/23 10:02) DIZZY/NAUSEA, nausea/vomiting escitalopram [From LEXAPRO] Allergy (Intermediate, Verified 06/29/23 10:02) ? NAUSEA meperidine [MEPERIDINE] Allergy (Intermediate, Verified 06/29/23 10:02) NAUSEA morphine [MORPHINE] Allergy (Intermediate, Verified 06/29/23 10:02) PALPITATIONS, palpitation oxycodone [OXYCODONE] Allergy (Intermediate, Verified 06/29/23 10:02) PALPATATIONS, palpitations tramadol Allergy (Unknown, Verified 06/29/23 10:02) dizziness, nausea acetaminophen [From Percocet] Allergy (Verified 06/29/23 10:02) Shakiness HPI O/V right hand numb& ting sx discuss HPI Details Diana is a 58 year old right hand dominant French speaking woman who pr esents with complaints of pain radiating from the dorsal aspect of the right hand MCP joints over the dorsal aspect of the wrist, up the dorsal aspect of the forearm to the full length of the forearm to the elbow. Her primary complaint is of pain and occasional swelling in her wrist, for ~1 year. She has difficulty using her hand for grasping or lifting activities. She reports falling twice in 10/2022 and again once in the last ~4 weeks. She was last seen on 03/19/22 for numbness and stiffness of the right middle, ring, and small fingers. She has attended OT hand therapy twice before, but not since her last appointment as she did not want to go to therapy again. She has been performing hand exercises at home, mostly by squeezing a ball. She complains of pain in her right shoulder, and says she has been following with [facility] for this. She received a shoulder injection on 06/29/23 and has been attending PT, which has been helpful. She also has a hx of Fibromyalgia as well as numbness and burning in her feet according to her most recent Rheumatology note from 04/21/23. Please see my note from 03/19/22 for more information [facility] Medical History Anxiety Depression Diarrhea Fibromyalgia Migraine Migraine equivalent syndrome Periodontal disease Primary osteoarthritis of right hand Somatization disorder Surgical History History of esophagogastroduodenoscopy (EGD) History of lumpectomy Hx of section Hx of colonoscopy Hx of shoulder surgery Family History Mother HTN (hypertension) Sister Breast cancer Bone cancer Colon polyps Sister Osteoporosis Hypercholesteremia Colon polyps Social History Household Members: Children Housing: Apartment Are you a primary healthcare administrative assistant to a significant other at home: No Do you presently have visiting nurse or other home services: Yes Alcohol intake: never Patient Tobacco Use Status: Former Tobacco user Years Smoked: 3 service: No Current occupational status: disabled 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 Review of Systems Const All systems reviewed & are unremarkable except as noted in HPI and below Physical Exam Vital Signs: BMI result Body Mass Index 18.5 Const General: cooperative, healthy appearing and no acute distress Orientation/consciousness: patient oriented x3 HEENT Head: Yes normocephalic and Yes atraumatic Eyes EOM: EOMs intact bilaterally Resp Effort & Inspection: normal respiratory effort and able to speak in complete sentences Cardio Jugular venous distension: no JVD Skin General skin exam: turgor normal Rashes: no rashes Neuro General: patient oriented x3 Extrem Other: Evaluation of Right Upper Extremity: The patient is alert, oriented, and in no acute distress She can make a fist and extend all of her digits as noted below. Again we see the rather severe stiffness of the right ring and small fingers pa rticularly at the PIP joints. With encouragement I was able to get her to bring her index and middle fingers closed to a fist, and then they were all brought into extension. This is a bit of an improvement since last time I saw her. No point tenderness with palpation of the right wrist, and the right forearm. More generalized discomfort over wrist & finger extensors at the dorsal aspect of forearm extending from from the dorsal aspect of the hand, to the wrist & elbow She had good active flexion and extension at the wrist without evidence of discomfort. Not particularly tender over extensor origin at the elbow Nerve Conduction study: Impression Normal motor and sensory nerve conduction velocities in the upper and lower extremities. Normal EMG in the left C5-T1 and L4-S1 innervated muscles Please see his report for additional information as necessary Dr. Sands 07/24/21 Psych Appearance: grossly normal Affect: normal affect Attitude: cooperative Assessment & Plan Assessment & Plan (1) Numbness and tingling in right hand: Code(s): R20.0 - Anesthesia of skin; R20.2 - Paresthesia of skin (2) Stiffness of finger joint of right hand: Code(s): M25.641 - Stiffness of right hand, not elsewhere classified (3) Extensor tendinitis of hand: Code(s): M77.8 - Other enthesopathies, not elsewhere classified Plan Assessment and plan: 1. Non-focal pain dorsum right hand & wrist, extending full length of the dorsal forarm Possible mild extensor tendinitis No tenderness over the extensor origin I educated her about this condition I discussed treatment options I recommend some gentle stretching and strengthening exercises with physical therapy She is already attending PT for her right shoulder, I will order PT for her and ask that they include stretching exercises for her to perform She can follow up prn 2. Numbness and tingling in right hand No complaints of this today. She has not completed her 2 previously ordered NCS 3. Severe stiffness right small finger MCP PIP DIP joints 4. Severe stiffness right ring finger MCPs, PIP, DIP joints 5. Severe stiffness right middle finger MCP/PIP/DIP joints She actually had some good improvement in the active and range of motion of the right middle finger compared with her last visit. No complaints today Scribed for Sydney Cleveland MD by Nawaf Man, medical center representative, on 06/30/23 at 12:10 PM, EST. Orders: Orders PT Evaluation and Treatment Today M77.8 - Other enthesopathies, not elsewhere classified Coding Level of Care Code Est Pt Level 3 (51983) Diagnoses Numbness and tingling in right hand R20.0; R20.2 Stiffness of finger joint of right hand M25.641 Extensor tendinitis of hand M77.8
== END 2023-06-30 12:08 | disposition home or self-care (01) ==
PROVIDERS: Visit Provider Orthopaedic Surgery
DX: M25.641 Stiffness of right hand, not elsewhere classified (principal); R20.0 Anesthesia of skin; R20.2 Paresthesia of skin; M77.8 Other enthesopathies, not elsewhere classified
CPT/HCPCS: 99213

== ENCOUNTER → 2023-06-30 11:22 | Outpatient (BNVA) | payer MEDICAID, SELFPAY | PROVIDERS: Visit Provider Orthopaedic Surgery | DX: R20.0 Anesthesia of skin (principal); R20.2 Paresthesia of skin; M25.641 Stiffness of right hand, not elsewhere classified; M77.8 Other enthesopathies, not elsewhere classified | CPT/HCPCS: 99212 ==

== ENCOUNTER 2023-07-08 08:24 | Outpatient (REF) | payer MEDICAID, SELFPAY ==
--- NOTE | ~2023-07-08 | MR_ITS ---
EXAMINATION: MR ANGIOGRAPHY BRAIN WITHOUT CONTRAST CLINICAL INFORMATION: Left sided headache, numbness COMPARISON: CTA head and neck 08/08/2022 TECHNIQUE: 3D [id number] MR angiography was performed through the brain without the use of intravenous gadolinium and axial source images were reviewed along with rotating MIPs. FINDINGS: Normal flow-related signal is seen within the anterior and posterior circulation. No focal flow-limiting stenosis, proximal large artery occlusion, or discrete saccular intracranial aneurysm is identified. Tortuosity of the bilateral cavernous internal carotid arteries. No arteriovenous shunting lesion. Proteinaceous retention cyst in an anterior left ethmoid air cell. MR/MR angio head wo con IMPRESSION: No significant steno-occlusive disease or intracranial saccular aneurysm.
== END 2023-07-08 08:25 | disposition home or self-care (01) ==
LOC: HO.MRI 08:24
PROVIDERS: PCP Internal Medicine; Visit Provider Internal Medicine
DX: G44.039 Episodic paroxysmal hemicrania, not intractable (principal)
CPT/HCPCS: 70544

== ENCOUNTER 2023-07-14 08:54 | Emergency (ER) | payer MEDICAID, SELFPAY ==
[2023-07-14] VITALS (7 sets, daily range): BP systolic 110–137; BP diastolic 48–64; PULSE 66–93; RESP 16–18; TEMP 36.6–37; O2SAT 95–99; BMI 18.5
--- NOTE | ~2023-07-14 | CT_ITS ---
EXAMINATION: CT ABDOMEN AND PELVIS WITH CONTRAST CLINICAL INFORMATION: Abdominal pain, nausea, vomiting and diarrhea COMPARISON: Previous CT of the abdomen and pelvis July 2022 TECHNIQUE: Multidetector volumetric images were obtained from the superior aspect of the liver through the pubic symphysis following administration 85 mL of Omnipaque 350 intravenous contrast. Sagittal and coronal reformatted images were obtained on the technologist's workstation. Oral contrast: No This CT examination was performed using dose optimization techniques as appropriate, variously including the following: *Automated exposure control *Adjustment of mA and/or kV according to patient size (this includes techniques or standardized protocols for targeted exams where dose is matched to indication/reason for exam; i.e. extremities or head) *Use of iterative reconstruction technique DLP: 259 mGy-cm FINDINGS: LUNG BASES: The visualized lung bases are unremarkable. LIVER, GALLBLADDER, AND BILIARY TREE: The liver is normal in size, shape, and attenuation. No focal hepatic lesion or biliary ductal dilatation is present. The gallbladder is unremarkable with no evidence of radiopaque gallstones, gallbladder wall thickening, or obvious pericholecystic inflammatory changes. PANCREAS: Unremarkable. SPLEEN: Calcifications probably related to old granulomatous disease. ADRENAL GLANDS: Unremarkable. KIDNEYS AND URETERS: The kidneys are normal in size, shape, and attenuation. No hydronephrosis, hydroureter, or calculi seen. No perinephric stranding. BLADDER: Unremarkable. GASTROINTESTINAL TRACT: Stool throughout the colon suggestive of constipation. There is some dilatation of the colon suggestive of mild secondary obstruction. The small and large bowel are otherwise unremarkable. The appendix is unremarkable. ABDOMINAL WALL: No significant hernia is appreciated. LYMPH NODES: Normal. VASCULAR: Unremarkable. PELVIC VISCERA: Prominent pelvic vessels particularly on the left questionable for pelvic congestion. Uterus and adnexa are otherwise normal. OSSEOUS STRUCTURES: Unremarkable. CT/CT abdomen pelvis w IV con IMPRESSION: Constipation and mild secondary obstruction. Fleischner guidelines were followed.
--- NOTE | ~2023-07-14 | XR_ITS ---
EXAMINATION: XR CHEST CLINICAL INFORMATION: Chest pain and shortness of breath. COMPARISON: Chest x-ray 02/15/2023. TECHNIQUE: Frontal view of the chest was obtained. FINDINGS: The cardiomediastinal silhouette is stable. The lungs are mildly hypoexpanded. No consolidation or effusion. No pneumothorax. Surgical clips in the right breast and axilla. Mild degenerative changes in the right shoulder. Prominent air-filled bowel loops in the central abdomen. XR/XR chest 1V IMPRESSION: Mildly hypoexpanded but otherwise clear lungs. Mildly prominent bowel loops in the central abdomen. Recommend clinical correlation.
--- NOTE | 2023-07-14 09:35 | ECG_ITS ---
Test Reason : chest pain Blood Pressure : / mmHG Vent. Rate : 074 BPM Atrial Rate : 074 BPM P-R Int : 136 ms QRS Dur : 076 ms QT Int : 354 ms P-R-T Axes : 047 063 037 degrees QTc Int : 392 ms Normal sinus rhythm Normal ECG When compared with ECG of 15-FEB-2023 09:24, No significant change was found Referred By: Generic ED Physician Electronically Signed By:AZIZA LUCAS
[2023-07-14 09:53] LABS: MANUAL DIFF FLAG NO
[2023-07-14 09:57] LABS: Basophils Percent Auto 0.6 % (0-2); Eosinophils Percent Auto 0.2 % (0-4); Hematocrit 41.3 % (37.0-47.0); Hemoglobin 13.8 g/dl (12.0-16.0); Imm Gran Abs Auto 0.01 X10*3/uL (0.00-0.03); Imm Gran Pct Auto 0.2 % (0.0-0.4); Lymphocytes Absolute Auto 1.6 X10*3/uL (1.2-4.9); Lymphocytes Percent Auto 31.3 % (20-40); Mean Corpuscular HGB Conc 33.4 g/dl (31.0-35.0); Mean Corpuscular Hemoglobin 30.3 pg (27.0-33.0); Mean Corpuscular Volume 90.6 fL (80.0-98.0); Mean Platelet Volume 8.7 fL (9.4-12.3); Monocytes Absolute Auto 0.3 X10*3/uL (0.1-1.2); Neutrophils Absolute Auto 3.2 x10*3/uL (2.0-8.3); Neutrophils Percent Auto 62.7 % (45-73); Platelet Count 308 X10*3/uL (160-400); Red Blood Count 4.56 X10*6/uL (4.20-5.50); Red Cell Distribution Width 13.4 % (11.0-16.0)
[2023-07-14 09:59] LABS: Appearance Urine Clear; Color Urine Yellow; Glucose Urine UA Negative (Negative); Leukocyte Esterase Urine Negative (Negative); Nitrite Urine Negative (Negative); PH 5.5 (5.0-9.0); Specific Gravity - Urine 1.025 (1.005-1.025); Urine Blood Negative (Negative); Urine Ketones Negative (Negative); Urine Protein Negative (Neg-Trace)
[2023-07-14 10:11] LABS: Alanine Aminotransferase 21 U/L (0-31); Albumin Level 4.7 g/dL (3.5-5.0); Alkaline Phosphatase 120 U/L (39-117); Anion Gap 12 (12-20); Aspartate Amino Transferase 23 U/L (5-31); Bilirubin Total 0.5 mg/dL (0.0-1.0); Blood Urea Nitrogen 13 mg/dL (9-16); Calcium 9.9 mg/dL (8.4-10.2); Carbon Dioxide 26 mmol/L (22-29); Chloride 107 mmol/L (96-108); Creatinine Clr Calc Pharmacy 53.4; Estimated Glomerular Filt Rate > 60; Glucose Random 85 mg/dL (60-115); Potassium 3.9 mmol/L (3.3-5.1); Sodium 141 mmol/L (135-145); Total Protein 7.6 g/dL (6.5-8.0)
--- NOTE | 2023-07-14 11:37 | PC.NURSE ---
pt reports chest pain, headache radiates to neck, dizziness, diarrhea, weak/tired
--- NOTE | 2023-07-14 11:38 | ED.CHESTPAIN ---
HPI - Chest Pain General Chief Complaint: Chest Pain Stated Complaint: abd pain/headache/low blood pressure Time Seen by Provider: 07/14/23 11:37 Source: patient Mode of arrival: ambulatory Limitations: no limitations History of Present Illness HPI narrative: this is a 58-year-old female past medical history tendinitis, migraine, GERD, irritable bowel syndrome, fibromyalgia presenting to the emergency department with multiple complaints for the past 3-4 days. Patient reports fatigue, malaise, myalgias, substernal nonradiating chest pressure with associated shortness of breath, as well as diffuse headache, abdominal pain (epigastric region, without radiation, constant) she says the abdominal pain is what is bothering her most. No history of obstructions. Patient denies fevers, chills, nausea, vomiting. She states she had diarrhea however no longer has it. Patient states she is worried because his her blood pressure has been low at home reports a nurse took it was 99/53. Reports poor p.o. intake the last few days Related Data Home Medications Medication Instructions Recorded Confirmed buspirone 15 mg tablet 15 mg PO TID 11/08/20 04/21/23 clonazepam 1 mg tablet 1 mg PO BID PRN Anxiety 11/08/20 04/21/23 olanzapine 20 mg tablet 20 mg PO BEDTIME 11/08/20 04/21/23 prazosin 2 mg capsule 4 mg PO BEDTIME 11/08/20 04/21/23 sertraline 100 mg tablet 200 mg PO DAILY 11/08/20 04/21/23 amlodipine 2.5 mg tablet 2.5 mg PO DAILY 07/16/21 04/21/23 loratadine 10 mg tablet 10 mg PO DAILY 07/16/21 04/21/23 mirtazapine 45 mg tablet 45 mg PO BEDTIME 07/16/21 04/21/23 cyanocobalamin (vitamin B-12) 100 100 mcg PO DAILY 05/29/22 04/21/23 mcg tablet cholecalciferol (vitamin D3) 50 50 mcg PO DAILY 07/01/22 04/21/23 mcg (2,000 unit) capsule diclofenac sodium 1 % topical gel 2 g topical TID 07/29/22 04/21/23 amitriptyline 100 mg tablet 100 mg PO BEDTIME 10/22/22 04/14/23 acetaminophen 650 mg 650 mg PO ONCE PRN pain 02/03/23 06/20/23 tablet,extended release cyclobenzaprine 5 mg tablet 5 mg PO BID PRN pain 04/14/23 04/21/23 pregabalin 150 mg capsule 150 mg PO BID 04/14/23 04/21/23 Previous Rx's Medication Instructions Recorded albuterol sulfate 90 mcg/actuation 2 puff inhalation Q6H PRN for 08/06/22 aerosol inhaler (ProAir HFA) wheezing 30 days #8.5 ea oxblkqovqv-ildlxfwynslzr-mhlivdxe 1 tab PO Q6H PRN Headache #30 tabs 08/09/22 50 mg-325 mg-40 mg tablet sumatriptan succinate 50 mg tablet 50 mg PO DAILY PRN Headache #14 08/09/22 tabs psyllium husk 0.4 gram capsule 0.4 g PO BID #60 caps 12/05/22 (Fiber (psyllium husk)) omeprazole 20 mg capsule,delayed 20 mg PO DAILY 30 days #30 caps 01/30/23 release famotidine 40 mg tablet 40 mg PO BEDTIME #90 tabs 02/04/23 hydroxyzine HCl 25 mg tablet 25 mg PO BID PRN anxiety #7 tabs 02/15/23 sennosides 8.6 mg tablet (senna) 17.2 mg (2 x 8.6 mg) PO BEDTIME 04/15/23 #180 tabs fluticasone propionate 115 2 puff PO BID #12 ea 05/06/23 mcg-salmeterol 21 mcg/actuation HFA inhaler (Advair HFA) dicyclomine 20 mg tablet 40 mg (2 x 20 mg) PO QID #240 tabs 06/10/23 melatonin 5 mg tablet 10 mg (2 x 5 mg) PO BEDTIME PRN 06/11/23 Sleep 90 days #90 tabs ropinirole 0.25 mg tablet 0.5 mg (2 x 0.25 mg) PO TID 30 06/29/23 days #180 tabs Allergies Allergy/AdvReac Type Severity Reaction Status Date / Time codeine [CODEINE] Allergy Intermediate DIZZY/NAUSEA, Verified 07/14/23 09:24 nausea/vomiting escitalopram [From LEXAPRO] Allergy Intermediate ? NAUSEA Verified 07/14/23 09:24 meperidine [MEPERIDINE] Allergy Intermediate NAUSEA Verified 07/14/23 09:24 morphine [MORPHINE] Allergy Intermediate PALPITATIONS, Verified 07/14/23 09:24 palpitation oxycodone [OXYCODONE] Allergy Intermediate PALPATATIONS, Verified 07/14/23 09:24 palpitations tramadol Allergy Unknown dizziness, Verified 07/14/23 09:24 nausea acetaminophen [From Percocet] Allergy Shakiness Verified 07/14/23 09:24 Review of Systems Review of Systems: Constitutional : No Weight loss, No Fever, +Chills,+ Fatigue, + Malaise ENT/Mouth : No sore throat, No Rhinorrhea Eyes: No Eye Pain, No Swelling, No Redness Cardiovascular : No Chest Pain, No SOB, No Dyspnea on Exertion, No Orthopnea, No Edema, No Palpitations Respiratory : No Cough, No Sputum, No Wheezing Gastrointestinal : No Nausea, No Vomiting, No Diarrhea, No Constipation, + abdominal Pain, No Hematochezia, No Melena Genitourinary : No Dysuria, No Urinary Frequency, No Hematuria, Musculoskeletal : No joint pain, No Myalgias, No Joint Swelling Skin : No Skin Lesions, No rash Neuro : No Weakness, No Numbness, No Dizziness, No Headache Psych : No Anxiety/Panic, No Depression All other systems reviewed and are negative Yes all other systems are reviewed and are negative [facility] Past Medical History Attestation statement: The following information was validated with the patient. Source: old records reviewed and nursing notes reviewed Medical History Diarrhea Depression Somatization disorder Migraine equivalent syndrome Migraine Anxiety Periodontal disease Primary osteoarthritis of right hand Fibromyalgia Surgical History History of esophagogastroduodenoscopy (EGD) History of lumpectomy Hx of section Hx of shoulder surgery Hx of colonoscopy Family History Family History Mother HTN (hypertension) Sister Breast cancer Bone cancer Colon polyps Sister Osteoporosis Hypercholesteremia Colon polyps Social History Social History Household Members: Children Housing: Apartment Are you a primary care management coordinator to a significant other at home: No Do you presently have visiting nurse or other home services: Yes Alcohol intake: never Patient Tobacco Use Status: Former Tobacco user Years Smoked: 3 Smoked in Last 30 Days: No Use of substances other than those prescribed or required for medical reasons: No Advance Directives: No Patient : No service: No Current occupational status: disabled 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 Oriented X3.? No acute distress.? Head: Normocephalic, atraumatic, no step-offs or deformities Eyes: Pupils equal, round and reactive to light.? CVS: Normal heart rate and rhythm.? Pulses normal.? Respiratory: No respiratory distress.? Breath sounds normal.? Abdomen: Soft and tenderness to the epigastric region. Hypoactive BS throughout Skin: Skin warm and dry.? Normal skin color.? Normal skin turgor.? Extremities: No lower extremity edema.? No calf ttp. 5/5 strength to bilateral upper and lower extremities Back: No midline tenderness, no C-spine tenderness, full range of motion, no CVA tenderness bilaterally Neuro: Oriented X 3.? No motor deficit.? No sensory deficit. CN 2-12 intact Course Reevaluation(s) Reevaluation #1: CBC appears to be within normal limits. Chemistry unremarkable. Negative troponin more BNP. Lipase within normal limits. UA without infection. Chest x-ray with mildly hypoexpanded but otherwise clear lungs. Mild prominent bowel loops in the central abdomen, recommended clinical correlation, concerns for obstruction therefore a CT abdomen pelvis was ordered. CT abdomen and pelvis showing constipation with obstruction. Consult surgery Dr. Melendez who states unlikely surgical, likely obstructed secondary to constipation.Will consult GI as well. Likely admission Time: 16:22 Reevaluation #2: GI recommends bowel regimen and to add an NG tube with patient becomes nauseous. If patient is not tolerating p.o. and does not have normal appetite should stay in for admission Time: 16:29 Reevaluation #3: Fully evaluated by general surgeon Dr. Melendez, rectal exam did not reveal anything the rectal vault. He does not feels though this is a surgical case, unlikely small bowel obstruction. This is likely constipation with overflow diarrhea. Will continue to monitor Time: 17:02 Additional Reevaluation(s): UA w/o infecion. Sign out to Diomedes Eid pending BM and consult to hospitalist Medications Administered Discontinued Medications Generic Name Dose Route Start Last Admin Trade Name Maikel PRN Reason Stop Dose Admin Docusate Sodium 100 mg 07/14/23 16:12 07/14/23 17:28 Docusate Sodium 100 Mg Capsule PO 07/14/23 16:13 100 mg ONCE ONE Administration Iohexol 100 ml 07/14/23 14:05 07/14/23 14:05 Iohexol 350 Mg/Ml 100 Ml Infus..Btl IV 07/14/23 14:06 85 ml ONCE ONE Administration Ketorolac Tromethamine 30 mg 07/14/23 13:14 07/14/23 13:33 Ketorolac Tromethamine 15 Mg/Ml Vial IVPUSH 07/14/23 13:15 30 mg ONCE ONE Administration Polyethylene Glycol 17 gm 07/14/23 16:12 07/14/23 17:28 Polyethylene Glycol 3350 17 Gm Powd.Pack PO 07/14/23 16:13 17 gm ONCE ONE Administration Senna 15 ml 07/14/23 16:12 07/14/23 17:28 Senna [place] Extract Oral Syrup 15 Ml Syrup PO 07/14/23 16:13 15 ml ONCE ONE Administration Medical Decision Making Medical Decision Making [facility] Narrative: 1141 58 yo F presents w/ Multiple complaints, primary complaint epigastric abdominal pain However has an overwhelmingly positive review of systems. Physical examination benign. Abdominal tenderness to palpation in the epigastric region. Neuro exam nonfocal. Cerebellar intact. History and physical exam concerning for viral illness versus fibromyalgia versus dehydration versus possible electrolyte abnormalities. Unlikely intracranial hemorrhage, stroke, posterior stroke, meningitis, encephalitis. Headache likely typical migraine/headache. Will rule out orthostatic hypotension. I do not suspect ACS or pulmonary embolism based off patient history and physical exam. No signs of CHF on exam. No signs of acute abdomen, dissection. Unlikely appendicitis, cholecystitis, pancreatitis. Low suspicion for obstruction Plan- labs, imaging, urine. Differential Diagnosis Differential Diagnoses: The differential diagnosis associated with the presentation includes History and physical exam concerning for viral illness versus fibromyalgia versus dehydration versus possible electrolyte abnormalities. Unlikely intracranial hemorrhage, stroke, posterior stroke, meningitis, encephalitis. Headache likely typical migraine/headache. Will rule out orthostatic hypotension. I do not suspect ACS or pulmonary embolism based off patient history and physical exam. No signs of CHF on exam. No signs of acute abdomen, dissection. Unlikely appendicitis, cholecystitis, pancreatitis, obstruction. low suspicion for obstruction. Admission/Observation Consideration of admission/observation: Escalation of care including admission/observation considered Unlikely Lab Data MDM Lab Attestation statement: I reviewed the patient's lab results. 07/14/23 09:46 07/14/23 09:46 Labs: Lab Results 07/14/23 07/14/23 07/14/23 Range/Units 09:46 12:29 12:30 WBC 5.0 (4.8-10.8) X10*3/uL RBC 4.56 (4.20-5.50) X10*6/uL Hgb 13.8 (12.0-16.0) g/dl Hct 41.3 (37.0-47.0) % MCV 90.6 (80.0-98.0) fL MCH 30.3 (27.0-33.0) pg MCHC 33.4 (31.0-35.0) g/dl RDW 13.4 (11.0-16.0) % Plt Count 308 (160-400) X10*3/uL MPV 8.7 L (9.4-12.3) fL Immature Gran % (Auto) 0.2 (0.0-0.4) % Neut % (Auto) 62.7 (45-73) % Lymph % (Auto) 31.3 (20-40) % [place] % (Auto) 5.0 (2-11) % Eos % (Auto) 0.2 (0-4) % Baso % (Auto) 0.6 (0-2) % Lymph # (Auto) 1.6 (1.2-4.9) X10*3/uL [place] # (Auto) 0.3 (0.1-1.2) X10*3/uL Eos # (Auto) 0.0 (0.0-0.4) X10*3/uL Baso # (Auto) 0.0 (0.0-0.2) X10*3/uL Abs Immat Gran (auto) 0.01 (0.00-0.03) X10*3/uL Absolute Neuts (auto) 3.2 (2.0-8.3) x10*3/uL Absolute Nucleated RBC 0.000 (0.0-0.012) X10*3/uL Nucleated RBC % (auto) 0.0 (0.0-0.2) /100WBC D-Dimer High Sensitivty < 150 NG/ML Sodium 141 (135-145) mmol/L Potassium 3.9 (3.3-5.1) mmol/L Chloride 107 (96-108) mmol/L Carbon Dioxide 26 (22-29) mmol/L Anion Gap 12 (12-20) BUN 13 (9-16) mg/dL Creatinine 0.81 (0.5-1.4) mg/dL Estim Creat Clear Calc 53.4 Estimated GFR > 60 Random Glucose 85 (60-115) mg/dL Calcium 9.9 (8.4-10.2) mg/dL Magnesium 2.1 (1.6-2.6) mg/dL Total Bilirubin 0.5 (0.0-1.0) mg/dL AST 23 (5-31) U/L ALT 21 (0-31) U/L Alkaline Phosphatase 120 H (39-117) U/L Troponin I High Sens < 2.7 (<3.5-17.0) ng/L B-Natriuretic Peptide 17 (<100) pg/mL Total Protein 7.6 (6.5-8.0) g/dL Albumin 4.7 (3.5-5.0) g/dL Lipase 20 (8-78) U/L Urine Color Yellow Urine Appearance Clear Urine pH 5.5 (5.0-9.0) Ur Specific [place] 1.025 (1.005-1.025) Urine Protein Negative (Neg-Trace) mg/dL Urine Glucose (UA) Negative (Negative) mg/dL Urine Ketones Negative (Negative) mg/dL Urine Blood Negative (Negative) Urine Nitrite Negative (Negative) Ur Leukocyte Esterase Negative (Negative) COVID-19 (MILA) (Negative) COVID-19 Clin Com Influenza Type A (KHALIDA) (Negative) Influenza Type B (KHALIDA) (Negative) Influenza A & B Note 07/14/23 Range/Units 12:39 WBC (4.8-10.8) X10*3/uL RBC (4.20-5.50) X10*6/uL Hgb (12.0-16.0) g/dl Hct (37.0-47.0) % MCV (80.0-98.0) fL MCH (27.0-33.0) pg MCHC (31.0-35.0) g/dl RDW (11.0-16.0) % Plt Count (160-400) X10*3/uL MPV (9.4-12.3) fL Immature Gran % (Auto) (0.0-0.4) % Neut % (Auto) (45-73) % Lymph % (Auto) (20-40) % [place] % (Auto) (2-11) % Eos % (Auto) (0-4) % Baso % (Auto) (0-2) % Lymph # (Auto) (1.2-4.9) X10*3/uL [place] # (Auto) (0.1-1.2) X10*3/uL Eos # (Auto) (0.0-0.4) X10*3/uL Baso # (Auto) (0.0-0.2) X10*3/uL Abs Immat Gran (auto) (0.00-0.03) X10*3/uL Absolute Neuts (auto) (2.0-8.3) x10*3/uL Absolute Nucleated RBC (0.0-0.012) X10*3/uL Nucleated RBC % (auto) (0.0-0.2) /100WBC D-Dimer High Sensitivty NG/ML Sodium (135-145) mmol/L Potassium (3.3-5.1) mmol/L Chloride (96-108) mmol/L Carbon Dioxide (22-29) mmol/L Anion Gap (12-20) BUN (9-16) mg/dL Creatinine (0.5-1.4) mg/dL Estim Creat Clear Calc Estimated GFR Random Glucose (60-115) mg/dL Calcium (8.4-10.2) mg/dL Magnesium (1.6-2.6) mg/dL Total Bilirubin (0.0-1.0) mg/dL AST (5-31) U/L ALT (0-31) U/L Alkaline Phosphatase (39-117) U/L Troponin I High Sens (<3.5-17.0) ng/L B-Natriuretic Peptide (<100) pg/mL Total Protein (6.5-8.0) g/dL Albumin (3.5-5.0) g/dL Lipase (8-78) U/L Urine Color Urine Appearance Urine pH (5.0-9.0) Ur Specific [place] (1.005-1.025) Urine Protein (Neg-Trace) mg/dL Urine Glucose (UA) (Negative) mg/dL Urine Ketones (Negative) mg/dL Urine Blood (Negative) Urine Nitrite (Negative) Ur Leukocyte Esterase (Negative) COVID-19 (MILA) Negative (Negative) COVID-19 Clin Com See Note Influenza Type A (KHALIDA) Negative (Negative) Influenza Type B (KHALIDA) Negative (Negative) Influenza A & B Note See Note Independent Interpretation I performed an independent interpretation of an: EKG ( ventricular rate of 74, AL normal, QRS normal, QT / QTC normal. EKG normal sinus rhythm no ST elevations or inversions concerning for acute ischemia.) and Plain X-Ray Radiology Impression Discussion of test interpretation with radiology: I have reviewed the radiologist's reading. Critical Care Time Critical Care Time Critical Care Time: Yes Total Critical Care Time: 35 Attestation: I attest to this time spent taking care of the patient, obtaining history, physical, reviewing labs, imaging, speaking to my attending, speaking to specialist. Discharge Plan Discharge Clinical Impression: Chest pain, Constipation, Diarrhea Patient Disposition: Still a Patient Instructions: Constipation (DC), High Fiber Diet (ED) Additional Instructions: Take your medications as prescribed. If you were prescribed antibiotics today, it is important that you take your medication to their entirety, do not skip any doses, do not finish them early. Follow-up with your primary care provider this week. Return to the emergency department with new or worsening symptoms. Such as fevers, chills, chest pain, shortness of breath, nausea, vomiting, dizziness, headache, vision changes, lethargy In case of emergency call 911 CT/CT abdomen pelvis w IV con IMPRESSION: Constipation and mild secondary obstruction. Fleischner guidelines were followed. Prescriptions: No Action famotidine 40 mg tablet 40 mg PO BEDTIME Qty: 90 3RF sennosides [senna] 8.6 mg tablet 17.2 mg PO BEDTIME Qty: 180 2RF fluticasone propion-salmeterol [Advair HFA] 115-21 mcg/actuation HFA aerosol inhaler 2 puff PO BID Qty: 12 6RF dicyclomine 20 mg tablet 40 mg PO QID Qty: 240 3RF melatonin 5 mg tablet 10 mg PO BEDTIME PRN (Reason: Sleep) 90 Days Qty: 90 1RF ropinirole 0.25 mg tablet 0.5 mg PO TID 30 Days Qty: 180 3RF Rx Instructions: take in the evening sumatriptan succinate 50 mg Tablet 50 mg PO DAILY PRN (Reason: Headache) Qty: 14 0RF aytfykmaxy-aunjzpmfvhjpf-jptj 50-325-40 mg Tablet 1 tab PO Q6H PRN (Reason: Headache) Qty: 30 0RF hydroxyzine HCl 25 mg tablet 25 mg PO BID PRN (Reason: anxiety) Qty: 7 0RF loratadine 10 mg tablet 10 mg PO DAILY amlodipine 2.5 mg tablet 2.5 mg PO DAILY mirtazapine 45 mg tablet 45 mg PO BEDTIME buspirone 15 mg tablet 15 mg PO TID sertraline 100 mg tablet 200 mg PO DAILY olanzapine 20 mg tablet 20 mg PO BEDTIME clonazepam 1 mg tablet 1 mg PO BID PRN (Reason: Anxiety) prazosin 2 mg capsule 4 mg PO BEDTIME albuterol sulfate [ProAir HFA] 90 mcg/actuation HFA aerosol inhaler 2 puff inhalation Q6H PRN (Reason: for wheezing) 30 Days Qty: 8.5 6RF acetaminophen 650 mg tablet extended release 650 mg PO ONCE PRN (Reason: pain) cyclobenzaprine 5 mg tablet 5 mg PO BID PRN (Reason: pain) psyllium husk [Fiber (psyllium husk)] 0.4 gram capsule 0.4 g PO BID Qty: 60 6RF cyanocobalamin (vitamin B-12) 100 mcg tablet 100 mcg PO DAILY cholecalciferol (vitamin D3) 50 mcg (2,000 unit) capsule 50 mcg PO DAILY diclofenac sodium 1 % gel 2 g topical TID omeprazole 20 mg capsule,delayed release(DR/EC) 20 mg PO DAILY 30 Days Qty: 30 6RF amitriptyline 100 mg tablet 100 mg PO BEDTIME pregabalin 150 mg capsule 150 mg PO BID
[2023-07-14 12:49] LABS: Lipase 20 U/L (8-78)
[2023-07-14 12:57] LABS: B Type Natriuretic Peptide 17 pg/mL (<100)
[2023-07-14 13:02] LABS: Troponin-I High Sensitivity < 2.7 ng/L (<3.5-17.0)
[2023-07-14 13:02] LABS: COVID-19 Test Negative (Negative); IDNOW Serial# 08D9AD1C
[2023-07-14 13:04] LABS: IDNOW Serial# 9DB6401D; Influenza A Negative (Negative); Influenza B2 Negative (Negative)
[2023-07-14] MEDS: Ketorolac Tromethamine 15 MG/ML VIAL 30 MG IVPUSH (13:33)
[2023-07-14 13:48] LABS: D Dimer High Sensitivity < 150 NG/ML
[2023-07-14] MEDS: iohexoL 350 MG/ML 100 ML INFUS..BTL IV (14:05)
--- NOTE | 2023-07-14 16:30 | P.CONGS_ITS ---
History of Present Illness Consult details Consult date: 07/14/23 Reason for consult: abdominal pain Narrative: The patient is a 58-year-old Citizen Of [place]-speaking woman seen at the request of the emergency room team due to multiple complaints including abdominal pain. In reviewing the EMR, the patient has described alternating diarrhea and constipation back to 2020 and his seen [facility] for evaluation. She has an EGD and colonoscopy scheduled for next month. Since 05/29/2022 when the patient weight 114 lb/BMI 20.8, the patient has had 13 lb weight loss and presents today with a weight of 101 lb/BMI of 18.3. The patient is seen at with the help of interpretive services due to multiple complaints including diarrhea and epigastric abdominal pain. Via health safety specialist, the patient reports that this pain is been going on for some number of years and she acknowledges concern over the documented 14 lb weight loss over the past year. She has been experiencing diarrhea but denies any blood. She also notes headache, sore throat and myalgias. She denies taking any anti diarrhea medications. The patient called her daughter, Sridhar, who who works in the surgical weight loss office; the patient requested that I speak with her candidly. The patient also requested a female aircraft refueller and Alycai was kind enough to help out. Review of Systems 2 Review of Systems: Yes all other systems are reviewed and are negative Constitutional: Constitutional: Reports as per HPI [facility] Past Medical History Medical History Diarrhea Depression Somatization disorder Migraine equivalent syndrome Migraine Anxiety Periodontal disease Primary osteoarthritis of right hand Fibromyalgia Family History Family History Mother HTN (hypertension) Sister Breast cancer Bone cancer Colon polyps Sister Osteoporosis Hypercholesteremia Colon polyps Surgical History Surgical History History of esophagogastroduodenoscopy (EGD) History of lumpectomy Hx of section Hx of shoulder surgery Hx of colonoscopy Social History Social History Household Members: Children Housing: Apartment Are you a primary care professionals to a significant other at home: No Do you presently have visiting nurse or other home services: Yes Alcohol intake: never Patient Tobacco Use Status: Former Tobacco user Years Smoked: 3 Smoked in Last 30 Days: No Use of substances other than those prescribed or required for medical reasons: No Advance Directives: No Patient : No service: No Current occupational status: disabled 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 NAUSEA Verified 07/14/23 09:24 meperidine [MEPERIDINE] Allergy Intermediate NAUSEA Verified 07/14/23 09:24 morphine [MORPHINE] Allergy Intermediate PALPITATIONS, Verified 07/14/23 09:24 palpitation oxycodone [OXYCODONE] Allergy Intermediate PALPATATIONS, Verified 07/14/23 09:24 palpitations tramadol Allergy Unknown dizziness, Verified 07/14/23 09:24 nausea acetaminophen [From Percocet] Allergy Shakiness Verified 07/14/23 09:24 Home Medications Medication Instructions Recorded Confirmed Last Taken Type buspirone 15 mg tablet 15 mg PO TID 11/08/20 04/21/23 Unknown History clonazepam 1 mg tablet 1 mg PO BID PRN Anxiety 11/08/20 04/21/23 Unknown History olanzapine 20 mg tablet 20 mg PO BEDTIME 11/08/20 04/21/23 Unknown History prazosin 2 mg capsule 4 mg PO BEDTIME 11/08/20 04/21/23 Unknown History sertraline 100 mg tablet 200 mg PO DAILY 11/08/20 04/21/23 Unknown History amlodipine 2.5 mg tablet 2.5 mg PO DAILY 07/16/21 04/21/23 Unknown History loratadine 10 mg tablet 10 mg PO DAILY 07/16/21 04/21/23 Unknown History mirtazapine 45 mg tablet 45 mg PO BEDTIME 07/16/21 04/21/23 Unknown History cyanocobalamin (vitamin B-12) 100 100 mcg PO DAILY 05/29/22 04/21/23 Unknown History mcg tablet cholecalciferol (vitamin D3) 50 50 mcg PO DAILY 07/01/22 04/21/23 Unknown History mcg (2,000 unit) capsule diclofenac sodium 1 % topical gel 2 g topical TID 07/29/22 04/21/23 Unknown History amitriptyline 100 mg tablet 100 mg PO BEDTIME 10/22/22 04/14/23 Unknown History acetaminophen 650 mg 650 mg PO ONCE PRN pain 12/05/22 04/21/23 Unknown History tablet,extended release cyclobenzaprine 5 mg tablet 5 mg PO BID PRN pain 04/14/23 04/21/23 Unknown History pregabalin 150 mg capsule 150 mg PO BID 04/14/23 04/21/23 Unknown History Physical Exam 2 Vital Signs: Vital Signs: Last Vital Signs Temp 98.6 F 07/14/23 11:25 Pulse 66 07/14/23 15:00 Resp 16 07/14/23 15:00 BP 112/48 L 07/14/23 15:00 Pulse Ox 98 07/14/23 15:00 O2 Del Method Room Air 07/14/23 15:00 BMI result Body Mass Index 18.5 The patient is non-toxic & in good spirits NC/AT, PERRLA, EOMI Mood, affect & judgment all appear appropriate Sclera anicteric conjunctiva pink and moist Oropharynx is clear with no aphthous ulcers, mucous membranes moist Neck is supple with no masses, adenopathy or bruits Heart is regular, normal S1-S2 no rubs or murmurs Lungs are clear and equal anteriorly with no audible wheezing, rubs or dullness to percussion No CVA tenderness present Abdomen is lean with no demonstrable ventral or inguinal hernia. Abdomen is nondistended but does have tympany with no peritoneal irritation to percussion No HSM, rebound, rigidity, guarding, masses or bruits are present. Rectal exam was conducted with aircraft refueller: Rectal vault is empty with no gross blood. No stool is appreciated. Skin has good turgor and is free of rashes Extremities free of cyanosis clubbing edema Results Labs 07/14/23 09:46 07/14/23 09:46 Labs: Abnormal lab results 07/14/23 Range/Units 09:46 MPV 8.7 L (9.4-12.3) fL Alkaline Phosphatase 120 H (39-117) U/L Short CBC 07/14/23 Range/Units 09:46 WBC 5.0 (4.8-10.8) X10*3/uL Hgb 13.8 (12.0-16.0) g/dl Hct 41.3 (37.0-47.0) % Plt Count 308 (160-400) X10*3/uL BMP 07/14/23 09:46 Sodium 141 Potassium 3.9 Chloride 107 Carbon Dioxide 26 BUN 13 Creatinine 0.81 Calcium 9.9 Liver Function 07/14/23 Range/Units 09:46 Total Bilirubin 0.5 (0.0-1.0) mg/dL AST 23 (5-31) U/L ALT 21 (0-31) U/L Alkaline Phosphatase 120 H (39-117) U/L Albumin 4.7 (3.5-5.0) g/dL Urine 07/14/23 Range/Units 09:46 Urine Color Yellow Urine Appearance Clear Urine pH 5.5 (5.0-9.0) Ur Specific [place] 1.025 (1.005-1.025) Urine Protein Negative (Neg-Trace) mg/dL Urine Glucose (UA) Negative (Negative) mg/dL The pt was previously noted to have a positive SHALONDA test & is scheduled for EGD & colonoscopy 07/30/[address] Valencia. All other labs normal. Imaging Abdomen CT scan report/results: report reviewed and image reviewed CT scan - pelvis: report reviewed and image reviewed Assessment and Plan (1) Constipation: Status: Acute (2) Epigastric pain: Status: Acute (3) SHALONDA positive: Status: Acute (4) RUQ abdominal pain: Status: Acute (5) Fibromyalgia: Status: Acute Plan Via interpretive services, explained to the patient and her daughter that I do not appreciate any acute surgical pathology that mandates emergent surgery. Some of what the patient is describing she notes has been going on for years including diarrhea, constipation and epigastric pain, and the patient acknowledges that the weight she has lost was unintentional. Options at this point include trying a liquid diet and bowel medications to address the apparent constipation. On rectal exam, there is no stool in the vault to suggest that the patient is having overflow diarrhea. There is further no evidence of stercoral ulcers or large stool mass in the rectum that would contribute to overflow diarrhea. The patient is positive SHALONDA test and GI symptoms and somewhat insidious weight loss does need endoscopic evaluation and I have encouraged the patient and her daughter to follow through on the EGD and colonoscopy scheduled for 07/30/2023. If the patient is unable to tolerate p.o., discussion with GI in the hospitalist would be in order since there is no obvious surgical pathology. Thank you for asking me to participate in her care. Time Spent With Patient Time: Total time managing care of this patient today ____ minutes. Procedures Date of Service Date of Service: 07/14/23
[2023-07-14 16:44] LABS: Magnesium 2.1 mg/dL (1.6-2.6)
[2023-07-14] MEDS: polyethylene glycoL 3350 17 GM POWD.PACK PO (17:28)
[2023-07-14] MEDS: Docusate Sodium 100 MG CAPSULE PO (17:28)
--- NOTE | 2023-07-14 18:32 | PC.NURSE ---
pt tolerated PO medications well, no nausea. per provider, waiting to see if medication was successful before enema. pt aware of plan.
--- NOTE | 2023-07-14 19:07 | PC.NURSE ---
assumed care of patient at 1900 - per previous RN PA is waiting for patient to have bowel movement with given medications prior to administering enema. call [place] within reach. plan of care ongoing
[2023-07-14] MEDS: bisacodyL 10 MG SUPP.RECT PR (19:23)
--- NOTE | 2023-07-14 19:29 | MHC.EDTECH ---
This tech assumed care of patient at 1900,vitals and rounds completed,patient is resting comfortably at this time and call [place] within reach.
--- NOTE | 2023-07-14 21:49 | MHC.EDTECH ---
Hourly rounds and vitals completed,patient is resting comfortably at this time and call [place] within reach
== END 2023-07-14 22:32 | disposition home or self-care (01) ==
PROVIDERS: Physician Assistant; Emergency Provider Student in an Organized Health Care Education/Training Program; PCP Internal Medicine
DX: R07.9 Chest pain, unspecified (principal); R10.13 Epigastric pain; K59.00 Constipation, unspecified; R19.7 Diarrhea, unspecified; R53.83 Other fatigue; M79.7 Fibromyalgia; Z20.822 Contact with and (suspected) exposure to COVID-19; Z79.899 Other long term (current) drug therapy
CPT/HCPCS: 36415; 71045; 74177; 80053; 81003; 83690; 83735; 83880; 84484; 85025; 85379; 87502; 87635; 93005; 96374; 99284; 99285; J1885; Q9967

== ENCOUNTER → 2023-07-14 11:18 | Outpatient (BNV) | payer MEDICAID, SELFPAY | PROVIDERS: PCP Internal Medicine; Visit Provider Surgery | DX: K59.00 Constipation, unspecified (principal); R10.13 Epigastric pain; R76.0 Raised antibody titer; R10.11 Right upper quadrant pain; M79.7 Fibromyalgia | CPT/HCPCS: 99284 ==

== ENCOUNTER 2023-07-30 10:08 | Day surgery (SDC) | payer MEDICAID, SELFPAY ==
[2023-07-28 13:33] VITALS: BMI 18.7
--- NOTE | 2023-07-29 10:22 | HO.ANESPROP2 ---
Documented by User: Isabelle Zelaya NP 07/29/23 10:26 HPI - Anesthesia Eval Consult details Narrative: 58yo F for Upper Endoscopy and Colonoscopy PMFSH Active Problems Active Problems: All Active Problems (Updated 07/15/23 @ 00:03 by Alejandro Wei) SHALONDA positive (Acute) Right shoulder tendinitis (Acute) Migraine equivalent syndrome (Acute) Somatization disorder (Acute) Numbness and tingling in right hand (Acute) Stiffness of finger joint of right hand (Acute) Weakness of right hand (Acute) Insomnia (Acute) GERD (gastroesophageal reflux disease) (Acute) Epigastric pain (Acute) Irritable bowel syndrome with both constipation and diarrhea (Acute) RUQ abdominal pain (Acute) Breast cancer, right (Chronic) Environmental allergies (Acute) Status post radiation therapy (Acute) Radiation fibrosis of lung (Acute) Primary osteoarthritis of right hand (Acute) Fibromyalgia (Acute) Past Medical History Medical History Diarrhea Depression Somatization disorder Migraine equivalent syndrome Migraine Anxiety Periodontal disease Primary osteoarthritis of right hand Fibromyalgia Family History Family History Mother HTN (hypertension) Sister Breast cancer Bone cancer Colon polyps Sister Osteoporosis Hypercholesteremia Colon polyps Surgical History Surgical History History of esophagogastroduodenoscopy (EGD) History of lumpectomy Hx of section Hx of shoulder surgery Hx of colonoscopy Social History Social History Household Members: Children Housing: Apartment Are you a primary child care specialist to a significant other at home: No Do you presently have visiting nurse or other home services: Yes Alcohol intake: never Patient Tobacco Use Status: Former Tobacco user Years Smoked: 3 Advance Directives: No Advance Directives Information Provided: Yes service: No Current occupational status: disabled 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 NAUSEA Verified 07/14/23 09:24 meperidine [MEPERIDINE] Allergy Intermediate NAUSEA Verified 07/14/23 09:24 morphine [MORPHINE] Allergy Intermediate PALPITATIONS, Verified 07/14/23 09:24 palpitation oxycodone [OXYCODONE] Allergy Intermediate PALPATATIONS, Verified 07/14/23 09:24 palpitations tramadol Allergy Unknown dizziness, Verified 07/14/23 09:24 nausea acetaminophen [From Percocet] Allergy Shakiness Verified 07/14/23 09:24 Home Medications Medication Instructions Recorded Confirmed Last Taken Type buspirone 15 mg tablet 15 mg PO TID 11/08/20 04/21/23 Unknown History clonazepam 1 mg tablet 1 mg PO BID PRN Anxiety 11/08/20 04/21/23 Unknown History olanzapine 20 mg tablet 20 mg PO BEDTIME 11/08/20 04/21/23 Unknown History prazosin 2 mg capsule 4 mg PO BEDTIME 11/08/20 04/21/23 Unknown History sertraline 100 mg tablet 200 mg PO DAILY 11/08/20 04/21/23 Unknown History amlodipine 2.5 mg tablet 2.5 mg PO DAILY 07/16/21 04/21/23 Unknown History loratadine 10 mg tablet 10 mg PO DAILY 07/16/21 04/21/23 Unknown History mirtazapine 45 mg tablet 45 mg PO BEDTIME 07/16/21 04/21/23 Unknown History cyanocobalamin (vitamin B-12) 100 100 mcg PO DAILY 05/29/22 04/21/23 Unknown History mcg tablet cholecalciferol (vitamin D3) 50 50 mcg PO DAILY 07/01/22 04/21/23 Unknown History mcg (2,000 unit) capsule diclofenac sodium 1 % topical gel 2 g topical TID 07/29/22 04/21/23 Unknown History amitriptyline 100 mg tablet 100 mg PO BEDTIME 10/22/22 04/14/23 Unknown History acetaminophen 650 mg 650 mg PO ONCE PRN pain 12/05/22 04/21/23 Unknown History tablet,extended release cyclobenzaprine 5 mg tablet 5 mg PO BID PRN pain 04/14/23 04/21/23 Unknown History pregabalin 150 mg capsule 150 mg PO BID 04/14/23 04/21/23 Unknown History Exam Exam Date and Time: July 29, 2023 1022 Height,Weight and Vital Signs: Height 5 ft 2 in Weight 46.266 kg Pertinent Lab Results Pertinent Lab Results: Laboratory Tests 07/14/23 09:46 WBC 5.0 Hgb 13.8 Hct 41.3 Plt Count 308 Sodium 141 Potassium 3.9 Chloride 107 Carbon Dioxide 26 BUN 13 Creatinine 0.81 Narrative Narrative: EKG 07/2023 Vent. Rate : 074 BPM Atrial Rate : 074 BPM P-R Int : 136 ms QRS Dur : 076 ms QT Int : 354 ms P-R-T Axes : 047 063 037 degrees QTc Int : 392 ms Normal sinus rhythm Normal ECG When compared with ECG of 15-FEB-2023 09:24, No significant change was found ECHO 04/2023 Conclusions: - The left ventricular systolic function is mildly decreased. The calculated ejection fraction is 50% by biplane method. - The basal inferior and basal inferolateral segments are akinetic. - No obvious valvular pathology seen on this study. NM ricardo perf SPECT rest & str 2021 Impression: 1. Myocardial perfusion imaging study shows likely normal myocardial perfusion. No definitive evidence of any ischemia or infarction. 2. Gated LVEF is 62% during stress and 68% during rest. 3. Transient ischemic dilatation not present. EKG component of the test reported separately. Assessment and Plan Assessment Anesthesia Assessment: Chart Reviewed Documented by User: Tonya Perez MD 07/30/23 10:40 [facility], [facility] Past Medical History Medical History Diarrhea Depression Somatization disorder Migraine equivalent syndrome Migraine Anxiety Periodontal disease Primary osteoarthritis of right hand Fibromyalgia Family History Family History Mother HTN (hypertension) Sister Breast cancer Bone cancer Colon polyps Sister Osteoporosis Hypercholesteremia Colon polyps Surgical History Surgical History History of esophagogastroduodenoscopy (EGD) History of lumpectomy Hx of section Hx of shoulder surgery Hx of colonoscopy History of Problems with Anesthesia: No Social History Social History Household Members: Children Housing: Apartment Are you a primary child care specialist to a significant other at home: No Do you presently have visiting nurse or other home services: Yes Alcohol intake: never Patient Tobacco Use Status: Former Tobacco user Years Smoked: 3 Advance Directives: No Advance Directives Information Provided: Yes service: No Current occupational status: disabled 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 NAUSEA Verified 07/14/23 09:24 meperidine [MEPERIDINE] Allergy Intermediate NAUSEA Verified 07/14/23 09:24 morphine [MORPHINE] Allergy Intermediate PALPITATIONS, Verified 07/14/23 09:24 palpitation oxycodone [OXYCODONE] Allergy Intermediate PALPATATIONS, Verified 07/14/23 09:24 palpitations tramadol Allergy Unknown dizziness, Verified 07/14/23 09:24 nausea acetaminophen [From Percocet] Allergy Shakiness Verified 07/14/23 09:24 Home Medications Medication Instructions Recorded Confirmed Last Taken Type buspirone 15 mg tablet 15 mg PO TID 11/08/20 04/21/23 Unknown History clonazepam 1 mg tablet 1 mg PO BID PRN Anxiety 11/08/20 04/21/23 Unknown History olanzapine 20 mg tablet 20 mg PO BEDTIME 11/08/20 04/21/23 Unknown History prazosin 2 mg capsule 4 mg PO BEDTIME 11/08/20 04/21/23 Unknown History sertraline 100 mg tablet 200 mg PO DAILY 11/08/20 04/21/23 Unknown History amlodipine 2.5 mg tablet 2.5 mg PO DAILY 07/16/21 04/21/23 Unknown History loratadine 10 mg tablet 10 mg PO DAILY 07/16/21 04/21/23 Unknown History mirtazapine 45 mg tablet 45 mg PO BEDTIME 07/16/21 04/21/23 Unknown History cyanocobalamin (vitamin B-12) 100 100 mcg PO DAILY 05/29/22 04/21/23 Unknown History mcg tablet cholecalciferol (vitamin D3) 50 50 mcg PO DAILY 07/01/22 04/21/23 Unknown History mcg (2,000 unit) capsule diclofenac sodium 1 % topical gel 2 g topical TID 07/29/22 04/21/23 Unknown History amitriptyline 100 mg tablet 100 mg PO BEDTIME 10/22/22 04/14/23 Unknown History acetaminophen 650 mg 650 mg PO ONCE PRN pain 12/05/22 04/21/23 Unknown History tablet,extended release cyclobenzaprine 5 mg tablet 5 mg PO BID PRN pain 04/14/23 04/21/23 Unknown History pregabalin 150 mg capsule 150 mg PO BID 04/14/23 04/21/23 Unknown History Exam Airway Mallampati Class: II TM Dist: >3cm Neck ROM: Full Loose/Missing/Broken Teeth: No Heart: RRR Lungs: CTA Assessment and Plan Assessment Anesthesia Assessment: Anesthesia Plan Discussed and Chart Reviewed Final Anesthetic Review History of Problems with Anesthesia: No NPO: Yes ASA Class: II Final Preanesthetic Review: Meds/Allgs Chart Reviewed, Consent Obtained/Reviewed and Anes Risks/Benef Reviewed Patient Risk: Low Procedure Risk: Intermediate Anesthetic Plan Anesthetic Plan: MAC: Disposition: Standard PACU
[2023-07-30 10:38] VITALS: BP 125/67; PULSE 80; RESP 16; TEMP 36.2; O2SAT 96
[2023-07-30 11:17] VITALS: BP 96/44; PULSE 112; RESP 16; TEMP 36.4; O2SAT 99
[2023-07-30 11:22] VITALS: BP 99/45; PULSE 112; RESP 16; O2SAT 98
--- NOTE | 2023-07-30 11:23 | P.OP_ITS ---
Operative Note Operative Note Date of Service: 07/30/23 Narrative: Procedure:?Esophagogastroduodenoscopy and colonoscopy Endoscopist:?Nazia Valencia MD Indication:?Abd pain Anesthesia Provider:?Yady House CRNA Anesthesia Type:?MAC Instrument:?Olympus GIF-H190, [id number]-[id number] EGD Procedure:?? The procedure, indications, preparation and potential complications were reviewed with the patient, who indicated understanding and gave written informed consent to proceed with the help of a automobile wrecker. A physical exam was performed. The endoscope was introduced through the mouth, and advanced to the second part of duodenum. The mucosa was carefully examined on slow withdrawal of the endoscope. There were no immediate complications. Patient tolerated the procedure well. EGD Findings:? * Esophagus:? Normal mucosa noted in the entire esophagus. The Z-line is at 40 cm. * Stomach:? Normal gastric mucosa. Retroflexion performed in the fundus. Few scattered polyps were noted in the fundus and body of the stomach compatible with fundic gland polyps. Random cold forceps biopsies were taken to rule out H pylori. * Duodenum:? Normal duodenal mucosa to the extent visualised. Cold forceps biopsies were taken from the duodenal bulb and 2nd portion the duodenum to rule out celiac sprue. Colonoscopy Procedure:? The patient was then turned for the colonoscopy. A digital rectal exam was performed which was normal.? A distal attachment cap was affixed to the tip of the scope and the colonoscope was then inserted through the anus and advanced through the colon to the cecum at 80 cm and terminal ileum. Appendiceal orifice and ileocecal valve were identified. Mucosa was carefully examined under high definition white light as the instrument was slowly withdrawn in a retrograde panoramic fashion. Retroflexion was performed in rectum. The procedure was not difficult. There were no immediate obvious complications. The quality of the prep was BBPS: 2+2+3 = adequate Withdrawal time: 9 minutes Limitations: No limitation. Findings: Mucosa: Normal mucosa to cecum and terminal ileum Protruding lesions: * 1 sessile polyp of size 5 mm was noted in the cecum. Cold snare polypectomy was performed. The polyp was completely removed and retrieved. * Medium internal hemorrhoids without stigmata of recent bleeding. Impression: 1. Normal esophagus 2. Normal gastric mucosa (biopsy) 3. Fundic gland polyps 4. Normal duodenum 5. Normal colon mucosa 6. 1 polyp removed 6. Internal hemorrhoids Recommendations:?? * Await pathology results. * Repeat colonoscopy for asymptomatic colon cancer screening in 5 years if polyp is an SSL otherwise 10 years.
[2023-07-30 11:32] VITALS: BP 107/59; PULSE 100; RESP 16; TEMP 36.6; O2SAT 100
== END 2023-07-30 11:47 | disposition home or self-care (01) ==
PROVIDERS: PCP Internal Medicine; Visit Provider Internal Medicine
PROC: (CPT 45385; principal; 2023-07-30 12:10)
DX: K58.2 Mixed irritable bowel syndrome (principal); D12.0 Benign neoplasm of cecum; K64.8 Other hemorrhoids; K21.9 Gastro-esophageal reflux disease without esophagitis; R10.11 Right upper quadrant pain; R11.2 Nausea with vomiting, unspecified; K31.7 Polyp of stomach and duodenum; K63.89 Other specified diseases of intestine; M79.7 Fibromyalgia; F45.0 Somatization disorder; G43.109 Migraine with aura, not intractable, without status migrainosus; F32.A Depression, unspecified; Z88.5 Allergy status to narcotic agent; Z88.8 Allergy status to other drugs, medicaments and biological substances; Z87.891 Personal history of nicotine dependence
CPT/HCPCS: 45385; 43239; 88305; 88342

== ENCOUNTER → 2023-07-30 10:08 | Outpatient (BNV) | payer MEDICAID, SELFPAY | PROVIDERS: PCP Internal Medicine; Visit Provider Internal Medicine | DX: R10.13 Epigastric pain (principal); K31.7 Polyp of stomach and duodenum; K63.5 Polyp of colon; K64.8 Other hemorrhoids | CPT/HCPCS: 43239; 45385 ==

== ENCOUNTER → 2023-08-05 11:40 | Outpatient (BNVA) | payer MEDICAID, SELFPAY | PROVIDERS: PCP Internal Medicine; Visit Provider Internal Medicine Rheumatology ==

== ENCOUNTER 2023-08-06 10:23 | Outpatient (AMB) | payer MEDICAID, SELFPAY ==
--- NOTE | 2023-08-06 10:24 | MHC.OFFVIS ---
Intake Vital Signs 08/06/23 10:25 Height 5 ft 2 in Weight 100 lb 4.965 oz BMI 18.3 BP 108/64 Blood Pressure Location Rt brachial Position Sitting Pulse 84 Pulse Source Pulse Oximeter Temp 98.2 F Temp Source Skin Pulse Oximetry (%) 98 Intake Visit Reasons: fibromyalgia/ osteoarthritis Intake Note: Pt seen today for FM follow up. C/o pain in shoulders, hands and knees. Follows with Ortho Airline Pilot Required: No Airline Pilot Name: Tim Steele Information Interpreted: clinical only Accompanied by: Self / Same As Patient Allergies codeine [CODEINE] Allergy (Intermediate, Verified 08/06/23 10:27) DIZZY/NAUSEA, nausea/vomiting escitalopram [From LEXAPRO] Allergy (Intermediate, Verified 08/06/23 10:27) ? NAUSEA meperidine [MEPERIDINE] Allergy (Intermediate, Verified 08/06/23 10:27) NAUSEA morphine [MORPHINE] Allergy (Intermediate, Verified 08/06/23 10:27) PALPITATIONS, palpitation oxycodone [OXYCODONE] Allergy (Intermediate, Verified 08/06/23 10:27) PALPATATIONS, palpitations tramadol Allergy (Unknown, Verified 08/06/23 10:27) dizziness, nausea acetaminophen [From Percocet] Allergy (Verified 08/06/23 10:27) Shakiness Medication List - Last Reconciled 08/06/23 by Meryl Ann MD acetaminophen ER 650 mg PO ONCE PRN albuterol sulfate 90 mcg/actuation (ProAir HFA) 2 puffs inhalation Q6H PRN 30 days amitriptyline 100 mg PO BEDTIME amlodipine 2.5 mg PO DAILY buspirone 15 mg PO TID hpwbbkodcn-fozpadusegfaw-anft 50-325-40 mg 1 tab PO Q6H PRN cholecalciferol (vitamin D3) 50 mcg PO DAILY clonazepam 1 mg PO BID PRN cyanocobalamin (vitamin B-12) 100 mcg PO DAILY cyclobenzaprine 5 mg PO BID PRN diclofenac sodium 1% 2 grams topical TID dicyclomine 40 mg (2 x 20 mg) PO QID famotidine 40 mg PO BEDTIME fluticasone propion-salmeterol 115-21 mcg/actuation (Advair HFA) 2 puffs PO BID hydroxyzine HCl 25 mg PO BID PRN loratadine 10 mg PO DAILY melatonin 10 mg (2 x 5 mg) PO BEDTIME PRN 90 days mirtazapine 45 mg PO BEDTIME naproxen 500 mg PO BID olanzapine 20 mg PO BEDTIME omeprazole 20 mg PO DAILY 30 days prazosin 4 mg PO BEDTIME pregabalin 150 mg PO BID psyllium husk (Fiber (psyllium husk)) 0.4 grams PO BID ropinirole 0.5 mg (2 x 0.25 mg) PO TID 30 days sennosides (senna) 17.2 mg (2 x 8.6 mg) PO BEDTIME sertraline 200 mg PO DAILY sumatriptan succinate 50 mg PO DAILY PRN HPI HPI Comments History of Present Illness Details 58-year-old female with positive SHALONDA and fibromyalgia returns for follow-up. She was recently evaluated by Orthopedics and had a right shoulder injection and she states that she had some relief in her overall symptoms. She also follows up with Hand surgery for possible mild right hand extensor tendinitis and tingling and numbness. She continues to have diffuse pain everywhere. Last visit by Dr. Denton 04/2023: The patient presents for evaluation of the multiple areas of pain. The visit is facilitated through the use the [employer] translating service. She had last been seen in December by Sydney. She was thought to have fibromyalgia and osteoarthritis. Today she complains of some significant right shoulder pain. This is worse with lifting the arm up overhead. She has had previous breast surgery with axillary dissection. She also apparently had some surgery on the shoulder itself in the past. The shoulder got worse again a few months ago and now she is going to physical therapy under the direction of Orthopedics. She also complains of numbness in the hands and feet. There is burning pain in the feet the get worse with more walking. She recalls that in 2009 she had a breast cancer that was surgically removed and then she was treated with radiation and chemotherapy. Subsequently she was then treated with tamoxifen. That has since been discontinued. The records show that the medications given as chemotherapy included Taxol. She says that she was told she had neuropathy by the neurologist. However there are notes referring to normal EMG studies done back in 2020. Her medication list is extensive. She has prescriptions apparently for a 3 NSAIDs, Lyrica, cyclobenzaprine, 3 antidepressants, and medications for anxiety. It is unclear which of these she is actually taking. [facility] Medical History Diarrhea Depression Somatization disorder Migraine equivalent syndrome Migraine Anxiety Periodontal disease Primary osteoarthritis of right hand Fibromyalgia Surgical History History of esophagogastroduodenoscopy (EGD) History of lumpectomy Hx of section Hx of shoulder surgery Hx of colonoscopy Family History Mother HTN (hypertension) Sister Breast cancer Bone cancer Colon polyps Sister Osteoporosis Hypercholesteremia Colon polyps Social History Household Members: Children Housing: Apartment Are you a primary critical care technician to a significant other at home: No Do you presently have visiting nurse or other home services: Yes Alcohol intake: never Patient Tobacco Use Status: Former Tobacco user Years Smoked: 3 service: No Current occupational status: disabled 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 Review of Systems Musc Reports myalgias, Reports arthralgias, Reports limited range of motion, Reports stiffness and Reports tingling Neuro Reports tingling Physical Exam Vital Signs: Last Vital Signs Temp 98.2 F 08/06/23 10:25 Pulse 84 08/06/23 10:25 BP 108/64 08/06/23 10:25 Pulse Ox 98 08/06/23 10:25 BMI result Body Mass Index 18.3 Const General: cooperative, healthy appearing and comfortable Nutritional Appearance: thin Orientation/consciousness: patient oriented x3 Limitations: ambulation with cane HEENT Head: Yes normocephalic and Yes atraumatic Resp Effort & Inspection: normal respiratory effort and able to speak in complete sentences Cardio Rate: regular rate Rhythm: regular rhythm Skin General skin exam: no rashes or lesions noted Neuro General: patient oriented x3 Extrem Other: Mildly reduced right shoulder abduction Right wrist in a splint Mild osteoarthritic changes of both hands with no active synovitis Bilateral knee crepitus worse on the right Results Reviewed Results Reviewed: Laboratory Tests 04/30/22 04/30/22 05/14/22 11:28 11:28 08:16 WBC Hgb ESR 7 Creatinine SHALONDA Titer 1:80 H Double Strand DNA Ab Anti-Mitochondrial Ab Anti-Smooth Muscle Ab <20 06/03/22 02/15/23 04/07/23 08:41 09:36 08:32 WBC 3.8 L Hgb 12.9 ESR Creatinine 0.78 SHALONDA Titer Double Strand DNA Ab 4 Anti-Mitochondrial Ab NEGATIVE Anti-Smooth Muscle Ab Assessment & Plan Assessment & Plan (1) SHALONDA positive: Code(s): R76.8 - Other specified abnormal immunological findings in serum Plan: This is a 58-year-old female fibromyalgia who presents for follow-up. Her labs showed a positive SHALONDA 1-80 in a dfs pattern. With normal dsDNA. I do not see any signs of autoimmune rheumatic disease. She has other mechanical degenerative arthritic problems for which she can follow up with other specialties. She can continue taking Lyrica for her fibromyalgia. No need for further follow-up unless she develops any new symptoms Plan I spent 15 minutes reviewing patient's chart, evaluating patient, counseling patient and documenting in the chart Coding Level of Care Code Est Pt Level 3 (06959) Diagnoses SHALONDA positive R76.8
[2023-08-06 10:25] VITALS: BP 108/64; PULSE 84; TEMP 36.8; O2SAT 98; BMI 18.3
== END 2023-08-06 11:24 | disposition home or self-care (01) ==
PROVIDERS: PCP Internal Medicine; Visit Provider Student in an Organized Health Care Education/Training Program
DX: R76.8 Other specified abnormal immunological findings in serum (principal)
CPT/HCPCS: 99213

== ENCOUNTER → 2023-08-06 10:23 | Outpatient (BNVA) | payer MEDICAID, SELFPAY | PROVIDERS: PCP Internal Medicine; Visit Provider Student in an Organized Health Care Education/Training Program | DX: R76.8 Other specified abnormal immunological findings in serum (principal) | CPT/HCPCS: 99212 ==

== ENCOUNTER 2023-08-13 12:02 | Outpatient (AMB) | payer MEDICAID, SELFPAY ==
--- NOTE | 2023-08-13 12:05 | MHC.OFFVIS ---
Intake Vital Signs 08/13/23 12:35 Height 5 ft 2 in Weight 100 lb BMI 18.3 BP 106/54 L Blood Pressure Location Lt brachial Position Sitting Pulse 90 Intake Visit Reasons: S/p egd/colon- Eirk Intake Note: Patient follow up for EGD/Colonoscopy results. Patient denies any other GI issues. Data Processing Equipment Repairer Required: Yes Data Processing Equipment Repairer Name: [id number] Accompanied by: Self / Same As Patient Allergies codeine [CODEINE] Allergy (Intermediate, Verified 08/13/23 12:31) DIZZY/NAUSEA, nausea/vomiting escitalopram [From LEXAPRO] Allergy (Intermediate, Verified 08/13/23 12:31) ? NAUSEA meperidine [MEPERIDINE] Allergy (Intermediate, Verified 08/13/23 12:31) NAUSEA morphine [MORPHINE] Allergy (Intermediate, Verified 08/13/23 12:31) PALPITATIONS, palpitation oxycodone [OXYCODONE] Allergy (Intermediate, Verified 08/13/23 12:31) PALPATATIONS, palpitations tramadol Allergy (Unknown, Verified 08/13/23 12:31) dizziness, nausea acetaminophen [From Percocet] Allergy (Verified 08/13/23 12:31) Shakiness HPI S/p egd/colon- Erik HPI Details Assessment & Plan (1) Periumbilical abdominal pain: Code(s): R10.33 - Periumbilical pain Plan: [place]mani #[id number] Narendra She is quite vague, but says her diarrhea is not a current problem, but the stomach pain in the epigastrum and nausea that is intermittent. She still is not well acquainted with her pills, and says she does not have the famotidine for example - also no fiber. She has hx of SBO, so care is needed when managing her constipation against diarrhea. It would be best to manage this with a fiber supplement and I will try to see if we can find 1 covered by her insurance.. Ordering colonoscopy/EGD, last scope 2012 was a negative study.. I will order a repeat repeat for screening and for upper abd pain. I am doing this to be thorough as I am not convinced were going to find any convincing cause. (she also has fibromyalgia and a conversion disorder so it is difficult to tease this out in terms of her pain syndromes). There are no prior problems with anesthesia or sedation. She denies any cardiac or respiratory problems. There are no infectious disease problems. There is no known history of colon cancer or polyps in the family. ROV after procedure and in 6 mos. (2) GERD (gastroesophageal reflux disease): Code(s): K21.9 - Gastro-esophageal reflux disease without esophagitis (3) Irritable bowel syndrome with both constipation and diarrhea: Code(s): K58.2 - Mixed irritable bowel syndrome (4) RUQ abdominal pain: Comment: No cause found in the GI system, she thinks she has fatty liver but with normal transaminases and a recent CT showing an absolutely normal liver this is not what is causing her problem aeb Code(s): R10.11 - Right upper quadrant pain Medications: New peg 3350-electroly heather 236-22.74-6.74 -5.86 gram (Golyt martita) until feca l effluent is juan manuel r; do not exceed a total volume of 2 ,000 mL 240 mL PO Q10M 1 day 4,000 mL 0RF Z12.11 - Encounter for screening for malignant neoplas m of colon Refilled famotidine 40 mg PO BEDTIME 30 tabs 11RF K21.9 - Gastro-eso phageal reflux dis ease without esoph agitis, R10.13 - E pigastric pain omeprazole 20 mg PO DAILY 30 days 30 caps 6RF K21.9 - Gastro-eso phageal reflux dis ease without esoph agitis COLONOSCOPY 07/30/23 Findings: Mucosa: Normal mucosa to cecum and terminal ileum Protruding lesions: 1 sessile polyp of size 5 mm was noted in the cecum. Cold snare polypectomy was performed. The polyp was completely removed and retrieved. Medium internal hemorrhoids without stigmata of recent bleeding.Impression: 1. Normal esophagus 2. Normal gastric mucosa (biopsy) 3. Fundic gland polyps 4. Normal duodenum 5. Normal colon mucosa 6. 1 polyp removed 6. Internal hemorrhoids Recommendations:?? Await pathology results. Repeat colonoscopy for asymptomatic colon cancer screening in 5 years if polyp is an SSL otherwise 10 years. BIOPSY ? Received: 07/30/23 Diagnosis A. Duodenum, biopsy: Duodenal mucosa within normal limits; preserved villous architecture and no increased intraepithelial lymphocytes seen. B. Stomach, biopsy: Gastric antral and body mucosa within normal limits; negative for Helicobacter pylori, intestinal metaplasia and dysplasia. C. Colon, cecum, polypectomy: Sessile serrated polyp/lesion without cytologic dysplasia, multiple fragments. TODAYS VISIT O[place]i #[id number], [id number] The procedure needs to be repeated in 5 years r/t the sesslie polyp. The procedure was well tolerated. The results were explained and the patient is agreeable to the follow-up interval as stated. The bowel pattern has returned to normal. Education was provided to tell any 1st degree relatives about their findings to be sure that they are screened by age 45. Educated that they will be put on a recall list when it is time for their repeat scope but should they move out of state or away from the hospital they will need to remember along with their primary to repeat the procedure in a timely fashion to avoid any adverse complications. She says the RUQ pain has improved since she started paying more attention to her diet. She is trying to eat more greens, prunes and drinking a lot of water. She also continues on her fiber supplement and on omeprazole and famotidine for her GERD. I think it is great to control her issues through diet but if she finds this difficult any point she should let me know. Return office visit in 6 months. [facility] Medical History Diarrhea Depression Somatization disorder Migraine equivalent syndrome Migraine Anxiety Periodontal disease Primary osteoarthritis of right hand Fibromyalgia Surgical History History of esophagogastroduodenoscopy (EGD) History of lumpectomy Hx of section Hx of shoulder surgery Hx of colonoscopy Family History Mother HTN (hypertension) Sister Breast cancer Bone cancer Colon polyps Sister Osteoporosis Hypercholesteremia Colon polyps Social History Household Members: Children Housing: Apartment Are you a primary child caregiver private home to a significant other at home: No Do you presently have visiting nurse or other home services: Yes Alcohol intake: never Patient Tobacco Use Status: Former Tobacco user Years Smoked: 3 service: No Current occupational status: disabled 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 Review of Systems Const Denies fatigue, Denies fever(s), Denies night sweats, Denies poor appetite and Denies weight loss ENT Reports Normal hearing present, Denies dental pain, Denies dysphagia, Denies hearing loss, Denies mouth pain, Denies odynophagia, Denies throat swelling, Denies tongue swelling and Reports other (Dentition adequate) Card Reports no additional complaints Resp Reports no additional complaints GI Denies abdominal pain, Denies melena, Denies bloating, Denies hematochezia, Reports constipation, Reports GI cramping, Denies dysphagia, Denies excessive flatus, Denies early satiety, Reports heartburn, Reports diarrhea, Denies nausea, Denies odynophagia, Denies vomiting and Denies hematemesis Skin/Breast Denies pruritus, Denies lesions, Denies rash and Denies jaundice Neuro Reports Normal hearing present and Denies Abnormal speech present Endo Denies fatigue Aller/Immun Denies throat swelling and Denies tongue swelling Physical Exam Vital Signs: Last Vital Signs Pulse 90 08/13/23 12:35 BP 106/54 L 08/13/23 12:35 BMI result Body Mass Index 18.3 Const General: cooperative, no acute distress, well developed and well groomed Nutritional Appearance: average body habitus and well nourished Orientation/consciousness: oriented to person, oriented to place and oriented to time Limitations: language barrier and ambulation with cane HEENT Head: Yes normocephalic and Yes atraumatic Eyes General: appearance normal, both eyes and all related structures Pupils: Equal, round and reactive pupils present Neck Neck: Yes normal visual inspection and Yes no lymphadenopathy Thyroid: Thyroid normal Resp Effort & Inspection: normal respiratory effort and able to speak in complete sentences Auscultation: clear to auscultation bilaterally Cardio Rate: regular rate Rhythm: regular rhythm Heart sounds: Normal, physiologic split S2 sound present Peripheral pulses: radial pulses present and posterior tibial pulses present GI Inspection: No distended and No Abdominal panniculus present Palpation (GI): Soft to palpation, nontender, no guarding, not rigid and No hepatosplenomegaly present Percussion: Yes normal to percussion Auscultation: normal bowel sounds Rectal Exam - Female: deferred Skin General skin exam: no rashes or lesions noted, turgor normal, skin not dry, no jaundice, No spider nevi and no striae Rashes: no rashes Nails: normal Neuro General: oriented to person, oriented to place and oriented to time Cranial nerves: Yes Equal, round and reactive pupils present and Yes Normal hearing present Speech: No Abnormal speech present Extrem General: Yes normal to inspection, No clubbing, No cyanosis and No edema Psych Appearance: grossly normal and well kempt Mental Status: mental status grossly normal Speech and movement: Normal speech and movement present Affect: normal affect Attitude: cooperative Thought process: Normal thought process present and not confabulating Thought content: Normal thought content present Insight: Limited insight present (Psych) Judgement: Limited judgement present (Psych) Assessment & Plan Assessment & Plan (1) GERD (gastroesophageal reflux disease): Code(s): K21.9 - Gastro-esophageal reflux disease without esophagitis Plan: [place]i #[id number], [id number] The procedure needs to be repeated in 5 years r/t the sesslie polyp. The procedure was well tolerated. The results were explained and the patient is agreeable to the follow-up interval as stated. The bowel pattern has returned to normal. Education was provided to tell any 1st degree relatives about their findings to be sure that they are screened by age 45. Educated that they will be put on a recall list when it is time for their repeat scope but should they move out of state or away from the hospital they will need to remember along with their primary to repeat the procedure in a timely fashion to avoid any adverse complications. She says the RUQ pain has improved since she started paying more attention to her diet. She is trying to eat more greens, prunes and drinking a lot of water. She also continues on her fiber supplement and on omeprazole and famotidine for her GERD. I think it is great to control her issues through diet but if she finds this difficult any point she should let me know. Return office visit in 6 months. (2) Tubular adenoma of colon: Comment: 2022= SESSILE SERRATED POLYP, repeat in 5 years aeb Code(s): D12.6 - Benign neoplasm of colon, unspecified (3) Irritable bowel syndrome with both constipation and diarrhea: Code(s): K58.2 - Mixed irritable bowel syndrome (4) Epigastric pain: Comment: resolved with avoiding eggs and tuna Code(s): R10.13 - Epigastric pain Medications: Refilled famotidine 40 mg PO BEDTIME 90 tabs 3RF K21.9 - Gastro-esophageal reflux disease without esophagitis, R10.13 - Epigastric pain omeprazole 20 mg PO DAILY 30 days 30 caps 6RF K21.9 - Gastro-esophageal reflux disease without esophagitis sennosides (senna) 17.2 mg (2 x 8.6 mg) PO BEDTIME 180 tabs 2RF K58.2 - Mixed irritable bowel syndrome psyllium husk (Fiber (psyllium husk)) 0.4 grams PO BID 60 caps 6RF K58.2 - Mixed irritable bowel syndrome dicyclomine 40 mg (2 x 20 mg) PO QID 240 tabs 3RF K58.2 - Mixed irritable bowel syndrome Coding Level of Care Code Est Pt Level 3 (29607) Diagnoses GERD (gastroesophageal reflux disease) K21.9 Tubular adenoma of colon D12.6 Irritable bowel syndrome with both constipation and diarrhea K58.2 Epigastric pain R10.13
[2023-08-13 12:35] VITALS: BP 106/54; PULSE 90; BMI 18.3
== END 2023-08-13 12:58 | disposition home or self-care (01) ==
PROVIDERS: Visit Provider Nurse Practitioner
DX: K21.9 Gastro-esophageal reflux disease without esophagitis (principal); D12.6 Benign neoplasm of colon, unspecified; K58.2 Mixed irritable bowel syndrome; R10.13 Epigastric pain
CPT/HCPCS: 99213

== ENCOUNTER → 2023-08-13 12:02 | Outpatient (BNVA) | payer MEDICAID, SELFPAY | PROVIDERS: Visit Provider Nurse Practitioner | DX: K21.9 Gastro-esophageal reflux disease without esophagitis (principal); K58.2 Mixed irritable bowel syndrome; Z86.010 Personal history of colon polyps | CPT/HCPCS: 99212 ==

== ENCOUNTER → 2023-09-17 13:55 | Outpatient (BNVA) | payer MEDICAID, SELFPAY | PROVIDERS: PCP Internal Medicine; Visit Provider Internal Medicine Pulmonary Disease ==

== ENCOUNTER 2023-09-22 13:00 | Outpatient (RCR) | payer MEDICAID, SELFPAY ==
--- NOTE | 2023-09-03 15:54 | MHC.OT.EP ---
[address] [phone] Occupational Therapy Plan of Care Patient Name: Diana Myles Date of Evaluation: 09/03/23 Diagnosis: Extensor tendonitis of Pain Location: Right hand, at times radiating to elbow and shoulder. Right shoulder injected a months ago followed up with PT Pain Score: 9 Pain Scale Used: Numeric (0 - 10) Aggravating Factors: Reports constant pain between 9 and 10 Alleviating Factors: Pt reports nothing helps Assessment: Pt is a 58 yo female with a complicated medical history including OA, right breast cancer with lymph node excision, right shoulder surgery, right hip and knee pain and a long history of right hand and wrist pain not improved with prior OT services. Today presents with complaint of right dorsal wrist pain constant 9/10, unable to make a fist and unable to use right hand with daily activities requiring SOLAR TECHNICIAN assist with ADL and homemaking for four hours a day, six days a week. Right hand D3-5 joint contractures noted. Pt posturing her right hand with ulnar digits in extension and with light activities . Manual muscle testing and [place] touch sensory testing inconclusive on the right Pt may benefit from OT for improving pain and right hand function. Frequency and Duration: The patient will be seen 2x a week x 4 weeks Short Term Goals: Demo use of thermal modalities for pain management Demo independence with right hand ROM as instructed Demo right hand use with self lower body dressing including fasteners [facility] Goals: Report decrease in right wrist pain to < 5/10 Tolerate right wrist isometric strengthening Demonstrate right hand use with light homemaking tasks Demo at right gross grasp to hand picker and carry a 5 lb bag Treatment Plan: Therapeutic Exercise Therapeutic Activity Home Exercise Program Patient Education Desensitization/Sensory Re-ed ADL Training Fluidotherapy Soft Tissue Mobilization Electronically Signed By: Gaye Koroma OT,CHT,CLT Please Sign and return to therapist. Thank you once again for your referral.
--- NOTE | 2023-11-06 11:45 | MHC.OT.DC ---
[address] [phone] F: [phone] Occupational Therapy Discharge Note Patient Name: Diana Myles Provider: Sydney Cleveland Diagnosis: Extensor tendonitis of Date of Surgery: Date of Evaluation: 09/03/23 Date of Discharge: 11/06/23 Treatments to Date: 4 Cancellations to Date: 2 No Shows to Date: Discharge Status: Patient Elected to Stop Discharge Summary: No change noted. Pt reports continued high constant dorsal wrist pain. Poor compliance with using heat , pt reports little benefit Poor compliance with HEP pt reports due to pain Con't habit of posturing in digit extension with ther ex and activities. Electronically Signed By: Gaye Koroma OT,CHT,CLT Reviewed/agree with student documentation: Therapist: Please Sign and return to therapist, thank you for your referral.
== END 2023-11-06 11:45 | disposition home or self-care (01) ==
LOC: HO.OT 13:00
PROVIDERS: PCP Internal Medicine; Visit Provider Orthopaedic Surgery
DX: M77.8 Other enthesopathies, not elsewhere classified (principal)
CPT/HCPCS: 97033; 97110; 97167; 97530

== ENCOUNTER 2023-10-06 10:50 | Outpatient (AMB) | payer MEDICAID, SELFPAY ==
--- NOTE | 2023-10-06 11:12 | MHC.OFFVIS ---
Intake Vital Signs 10/06/23 11:13 Height 5 ft 2 in Weight 102 lb BMI 18.7 Intake Visit Reasons: O/V right hand numb& ting sx discuss Intake Note: Diana 58 year old right hand dominant female presents today for her follow up visit for her right hand CTS and stiffness in her right middle, ring and small finger for the last 5 years. States she completed P.T/O.T and continues to have pain and stiffness. No EMG done yet. Allergies codeine [CODEINE] Allergy (Intermediate, Verified 10/06/23 11:14) DIZZY/NAUSEA, nausea/vomiting escitalopram [From LEXAPRO] Allergy (Intermediate, Verified 10/06/23 11:14) ? NAUSEA meperidine [MEPERIDINE] Allergy (Intermediate, Verified 10/06/23 11:14) NAUSEA morphine [MORPHINE] Allergy (Intermediate, Verified 10/06/23 11:14) PALPITATIONS, palpitation oxycodone [OXYCODONE] Allergy (Intermediate, Verified 10/06/23 11:14) PALPATATIONS, palpitations tramadol Allergy (Unknown, Verified 10/06/23 11:14) dizziness, nausea acetaminophen [From Percocet] Allergy (Verified 10/06/23 11:14) Shakiness HPI O/V right hand numb& ting sx discuss HPI Details Diana is a 58 year old right hand dominant Citizen Of The [place] speaking woman who returns with complaints of right hand pain & stiffness. She says she continues to have pain in her fingers with use of her hand, and finds this frustrating. This is her primary complaint today. She has been performing hand exercises at home, with what she says is Play-clarisa . She finds pain with prolonged gripping or holding of objects. She says she can hold something for a short period of time, such as gripping a purse strap, but after a few minutes she begins to feel sharp pain. She says she has tried wearing a velcro wrist splint, but denies any thumb splints. She was last seen on 06/30/23 for numbness and stiffness of the right middle, ring, and small fingers. She has attended OT hand therapy twice before, but not since her last appointment as she did not want to go to therapy again. She also has a hx of Fibromyalgia as well as numbness and burning in her feet according to notes by Rheumatology. Please see my notes from 03/19/22 & 06/29/23 for more information [facility] Medical History Diarrhea Depression Somatization disorder Migraine equivalent syndrome Migraine Anxiety Periodontal disease Primary osteoarthritis of right hand Fibromyalgia Surgical History History of esophagogastroduodenoscopy (EGD) History of lumpectomy Hx of section Hx of shoulder surgery Hx of colonoscopy Family History Mother HTN (hypertension) Sister Breast cancer Bone cancer Colon polyps Sister Osteoporosis Hypercholesteremia Colon polyps Social History Household Members: Children Housing: Apartment Are you a primary medicare coordinator to a significant other at home: No Do you presently have visiting nurse or other home services: Yes Alcohol intake: never Patient Tobacco Use Status: Former Tobacco user Years Smoked: 3 service: No Current occupational status: disabled 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 The small and ring fingers look somewhat atrophic because of lack of active range of motion. He is missing the wrinkles over the PIP joints. She can make a fist and extend all of her digits as noted below. Again we see the rather severe stiffness of the right ring and small fingers particularly at the PIP joints. She was able to bring her index and middle fingers closed to a fist, and then they were all brought into extension. This is an improvement since last time I saw her. No point tenderness with palpation of the right wrist, and the right forearm. More generalized discomfort over wrist & finger extensors at the dorsal aspect of forearm extending from from the dorsal aspect of the hand, to the wrist & elbow She had good active flexion and extension at the wrist without evidence of discomfort. Mild tenderness over the basal joint of the thumb and over the 1st dorsal compartment. She does not really appear to have a shoulder sign. I do not appreciate any swelling or erythema over the 1st dorsal compartment. Nerve Conduction study: Impression Normal motor and sensory nerve conduction velocities in the upper and lower extremities. Normal EMG in the left C5-T1 and L4-S1 innervated muscles Please see his report for additional information as necessary Dr. Sands 07/24/21 Psych Appearance: grossly normal Affect: normal affect Attitude: cooperative Assessment & Plan Assessment & Plan (1) Numbness and tingling in right hand: Code(s): R20.0 - Anesthesia of skin; R20.2 - Paresthesia of skin (2) Stiffness of finger joint of right hand: Code(s): M25.641 - Stiffness of right hand, not elsewhere classified (3) Fibromyalgia: Code(s): M79.7 - Fibromyalgia (4) Extensor tendinitis of hand: Code(s): M77.8 - Other enthesopathies, not elsewhere classified (5) Right hand pain: Code(s): M79.641 - Pain in right hand Plan Assessment and plan: 1. Non-focal pain dorsum right hand & wrist, extending full length of the dorsal forearm Possible mild extensor tendinitis No tenderness over the extensor origin 2. New discomfort over the right 1st dorsal compartment and basal joint This is new pain She has no locking or catching I educated her about this condition She has been working on at-home exercises and found limited improvement from OT in the past We fitted her for a comfort cool brace to wear with daily activity I discussed activity modification and explained the importance of maintaining her ROM and using her hand for daily activities. This has only been going on for a few weeks. If this continues, she can be seen again for a possible steroid injection. 3. Numbness and tingling in right hand With dense numbness to the tips of all digits Her NCS from 07/24/21 was normal She has not completed her 2 previously ordered NCS I ordered a NCS to assess for peripheral nerve compression She will follow up when completed for review 4. Right ring finger severe joint stiffness 5. Right small finger severe joint stiffness 6. Right middle finger severe joint stiffness This has improved quite a bit since her last appointment I again discussed the importance of working on range of motion exercises. She has done so for the index and middle fingers with some improvement. She really needs to do this for the small and ring fingers. We have been talking about this for a long time. Scribed for Sydney Cleveland MD by Nawaf Man, medical insurance collector, on 10/06/23 at 11:30 AM, EST. Orders: Orders NE nerve conduction velocity Today R20.0 - Anesthesia of skin, R20.2 - Paresthesia of skin Coding Level of Care Code Est Pt Level 3 (61971) Diagnoses Numbness and tingling in right hand R20.0; R20.2 Stiffness of finger joint of right hand M25.641 Fibromyalgia M79.7 Extensor tendinitis of hand M77.8 Right hand pain M79.641
[2023-10-06 11:13] VITALS: BMI 18.7
== END 2023-10-06 11:43 | disposition home or self-care (01) ==
PROVIDERS: PCP Internal Medicine; Visit Provider Orthopaedic Surgery
DX: R20.0 Anesthesia of skin (principal); R20.2 Paresthesia of skin; M25.641 Stiffness of right hand, not elsewhere classified; M79.7 Fibromyalgia; M77.8 Other enthesopathies, not elsewhere classified; M79.641 Pain in right hand
CPT/HCPCS: 99213

== ENCOUNTER → 2023-10-06 10:50 | Outpatient (BNVA) | payer MEDICAID, SELFPAY | PROVIDERS: PCP Internal Medicine; Visit Provider Orthopaedic Surgery | DX: R20.0 Anesthesia of skin (principal); R20.2 Paresthesia of skin; M25.641 Stiffness of right hand, not elsewhere classified; M79.7 Fibromyalgia; M77.8 Other enthesopathies, not elsewhere classified; M79.641 Pain in right hand | CPT/HCPCS: 99212 ==

== ENCOUNTER 2023-10-13 10:03 | Outpatient (AMB) | payer MEDICAID, SELFPAY ==
--- NOTE | 2023-10-13 10:16 | MHC.OFFVIS ---
Intake Vital Signs 10/13/23 10:22 Height 5 ft 2 in Weight 102 lb BMI 18.7 BP 98/74 Blood Pressure Location Rt brachial Position Sitting Pulse 82 Pulse Source Pulse Oximeter Pulse Oximetry (%) 87 L Oxygen Delivery Method Room Air Intake Visit Reasons: f/u appt-Confirmed Intake Note: Patient presents for follow up. I'm not sleeping Allergies codeine [CODEINE] Allergy (Intermediate, Verified 10/13/23 10:26) DIZZY/NAUSEA, nausea/vomiting escitalopram [From LEXAPRO] Allergy (Intermediate, Verified 10/13/23 10:26) ? NAUSEA meperidine [MEPERIDINE] Allergy (Intermediate, Verified 10/13/23 10:26) NAUSEA morphine [MORPHINE] Allergy (Intermediate, Verified 10/13/23 10:) PALPITATIONS, palpitation oxycodone [OXYCODONE] Allergy (Intermediate, Verified 10/13/23 10:) PALPATATIONS, palpitations tramadol Allergy (Unknown, Verified 10/13/23 10:) dizziness, nausea acetaminophen [From Percocet] Allergy (Verified 10/13/23 10:26) Shakiness Medication List - Last Reconciled 10/13/23 by REINA Barrios acetaminophen ER 650 mg PO ONCE PRN albuterol sulfate 90 mcg/actuation (ProAir HFA) 2 puffs inhalation Q6H PRN 30 days amitriptyline 100 mg PO BEDTIME buspirone 15 mg PO TID itqwsvuagl-mfrhvpbbsdlsw-gryo 50-325-40 mg 1 tab PO Q6H PRN cholecalciferol (vitamin D3) 50 mcg PO DAILY clonazepam 1 mg PO BID PRN cyanocobalamin (vitamin B-12) 100 mcg PO DAILY cyclobenzaprine 5 mg PO BID PRN diclofenac sodium 1% 2 grams topical TID dicyclomine 40 mg (2 x 20 mg) PO QID famotidine 40 mg PO BEDTIME fluticasone propion-salmeterol 115-21 mcg/actuation (Advair HFA) 2 puffs inhalation BID tbprhdewulv-ufbnkgebn-wffhnjab 200-62.5-25 mcg (Trelegy Ellipta) 1 inh inhalation Q24H 30 days hydroxyzine HCl 25 mg PO BID PRN loratadine 10 mg PO DAILY melatonin 10 mg (2 x 5 mg) PO BEDTIME PRN 90 days mirtazapine 45 mg PO BEDTIME naproxen 500 mg PO BID olanzapine 20 mg PO BEDTIME omeprazole 20 mg PO DAILY 30 days prazosin 4 mg PO BEDTIME pregabalin 150 mg PO BID psyllium husk (Fiber (psyllium husk)) 0.4 grams PO BID ropinirole 0.5 mg (2 x 0.25 mg) PO TID 30 days sennosides (senna) 17.2 mg (2 x 8.6 mg) PO BEDTIME sertraline 200 mg PO DAILY sumatriptan succinate 50 mg PO DAILY PRN HPI HPI Comments History of Present Illness Details 58-yr-old female presents for f/u visit. Pt denies any significant interval medical changes. She reports BLE discomfort, restlessness (mind), cramps, jumping in the legs. She wants to stay still, as any movement makes the pain worse. This is worse when in bed but also when walking. She cannot watch TV for long because she gets restless and has to get up and move. Her arms can be painful too. Has hand cramps. Is being f/b Ortho. Can have some redness in her feet. Denies BLE swelling. Denies oral, buccal, lingual abnormal movements. She is having 2 migraine day per week. Sometimes Tylenol helps but not always. She does not have any Sumatriptan.Her meds are in a locked box- she has nurse management. [facility] Medical History (Updated 10/13/23 @ 16:23 by REINA Barrios) Migraine Anemia Diarrhea Depression Somatization disorder Migraine equivalent syndrome Anxiety Periodontal disease Primary osteoarthritis of right hand Fibromyalgia Surgical History History of esophagogastroduodenoscopy (EGD) History of lumpectomy Hx of section Hx of shoulder surgery Hx of colonoscopy Family History Mother HTN (hypertension) Sister Breast cancer Bone cancer Colon polyps Sister Osteoporosis Hypercholesteremia Colon polyps Social History Household Members: Children Housing: Apartment Are you a primary director of home care hospice to a significant other at home: No Do you presently have visiting nurse or other home services: Yes Alcohol intake: never Patient Tobacco Use Status: Former Tobacco user Years Smoked: 3 service: No Current occupational status: disabled 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 Review of Systems Const All systems reviewed & are unremarkable except as noted in HPI and below Physical Exam Vital Signs: Last Vital Signs Pulse 82 10/13/23 10:22 BP 98/74 10/13/23 10:22 Pulse Ox 87 L 10/13/23 10:22 Oxygen Delivery Method Room Air 10/13/23 10:22 BMI result Body Mass Index 18.7 Const General: cooperative and no acute distress Orientation/consciousness: patient oriented x3 HEENT Head: Yes normocephalic Resp Effort & Inspection: normal respiratory effort and able to speak in complete sentences Neuro General: patient oriented x3 and CN's II-XI intact bilaterally Cognition (Neuro): normal cognition Gait exam (Neuro): Antalgic gait present and Assistive device used (cane) Psych Appearance: grossly normal Mental Status: mental status grossly normal Speech and movement: Normal speech and movement present Affect: normal affect Attitude: cooperative Thought process: Normal thought process present Thought content: Normal thought content present Insight: Good insight present (Psych) Judgement: Good judgement present (Psych) Assessment & Plan Assessment & Plan (1) Bilateral leg cramps: Code(s): R25.2 - Cramp and spasm (2) Bilateral leg paresthesia: Code(s): R20.2 - Paresthesia of skin (3) Leg cramps: Code(s): R25.2 - Cramp and spasm (4) Migraine: Code(s): G43.909 - Migraine, unspecified, not intractable, without status migrainosus Plan For sleep: Pt advised to undergo f/u BLE EMG/NCS- as pt states pain, cramps, paresthesias have worsened over the past 2 yrs and is disrupting her sleep quality.. Check labs for common etiologies. Continue Requip 0.5mg tid. Continue Prazosin. Continue Melatonin 10mg qhs. For migraine: Resume Sumatriptan 100mg tab- at onset of headache, may repeat in 2 hrs PRN; max 2 tabs per day or 4 tabs/week (may take with Naproxen 440mg or Tylenol 1000mg) Continue Amitriptyline 100mg qhs Her Nurse is Collette Kinney. [facility] - will reach out to nurse to ensure pt has access to 2-3 tabs of her as needed Sumatriptan per week f/u in 3 months or sooner prn Orders: Orders NE electromyogram (EMG) Today R20.2 - Paresthesia of skin, R25.2 - Cramp and spasm Complete Blood Count Auto Diff Today D64.9 - Anemia, unspecified, R20.2 - Paresthesia of skin, R25.2 - Cramp and spasm Erythrocyte Sedimentation Rate Today D64.9 - Anemia, unspecified, R20.2 - Paresthesia of skin, R25.2 - Cramp and spasm Magnesium Today D64.9 - Anemia, unspecified, R20.2 - Paresthesia of skin, R25.2 - Cramp and spasm Comprehensive Met. Panel Today D64.9 - Anemia, unspecified, R20.2 - Paresthesia of skin, R25.2 - Cramp and spasm CRP High Sensitivity Today D64.9 - Anemia, unspecified, R20.2 - Paresthesia of skin, R25.2 - Cramp and spasm Creatine Kinase Total Today D64.9 - Anemia, unspecified, R20.2 - Paresthesia of skin, R25.2 - Cramp and spasm Ferritin Today D64.9 - Anemia, unspecified, R20.2 - Paresthesia of skin, R25.2 - Cramp and spasm IRON PROFILE Today D64.9 - Anemia, unspecified, R20.2 - Paresthesia of skin, R25.2 - Cramp and spasm Transferrin Today D64.9 - Anemia, unspecified, R20.2 - Paresthesia of skin, R25.2 - Cramp and spasm Amitriptyline (Elavil), Serum Today R20.2 - Paresthesia of skin, R25.2 - Cramp and spasm Medications: New sumatriptan succinate 100 mg orally at onset of headache, may repeat in 2 hrs PRN; max 2 tabs per day or 4 tabs/week (may take with Naproxen 440mg or Tylenol 1000mg) 30 days 12 tabs 6RF migraine headache Discontinued sumatriptan succinate Discontinued Reason: Doctor's Order 50 mg PO DAILY PRN 14 tabs 0RF Headache Coding Level of Care Code Est Pt Level 4 (78169) Diagnoses Bilateral leg cramps R25.2 Bilateral leg paresthesia R20.2 Leg cramps R25.2 Migraine G43.909
[2023-10-13 10:22] VITALS: BP 98/74; PULSE 82; O2SAT 87; BMI 18.7
== END 2023-10-13 11:18 | disposition home or self-care (01) ==
PROVIDERS: PCP Internal Medicine; Visit Provider Nurse Practitioner Family
DX: R25.2 Cramp and spasm (principal); R20.2 Paresthesia of skin; G43.909 Migraine, unspecified, not intractable, without status migrainosus
CPT/HCPCS: 99214

== ENCOUNTER → 2023-10-13 10:03 | Outpatient (BNVA) | payer MEDICAID, SELFPAY | PROVIDERS: PCP Internal Medicine; Visit Provider Nurse Practitioner Family | DX: R25.2 Cramp and spasm (principal); R20.2 Paresthesia of skin; G43.909 Migraine, unspecified, not intractable, without status migrainosus | CPT/HCPCS: 99212 ==

== ENCOUNTER 2023-10-27 10:41 | Outpatient (REF) | payer MEDICAID, SELFPAY | END 2023-10-27 10:42 | disposition home or self-care (01) | LOC: HO.CT 10:41 | PROVIDERS: PCP Internal Medicine; Visit Provider Internal Medicine Pulmonary Disease | DX: J70.1 Chronic and other pulmonary manifestations due to radiation (principal) | CPT/HCPCS: 71250 ==

== ENCOUNTER 2023-10-30 10:44 | Outpatient (REF) | payer MEDICAID, SELFPAY | END 2023-10-30 10:45 | disposition home or self-care (01) | LOC: HO.RESP 10:44 | PROVIDERS: PCP Internal Medicine; Visit Provider Internal Medicine Pulmonary Disease | DX: Z13.89 Encounter for screening for other disorder (principal) ==

== ENCOUNTER 2023-11-04 08:14 | Outpatient (REF) | payer MEDICAID, SELFPAY ==
[2023-11-04 08:41] LABS: MANUAL DIFF FLAG NO
[2023-11-04 09:11] LABS: Basophils Percent Auto 0.7 % (0-2); Eosinophils Percent Auto 0.7 % (0-4); Hemoglobin 13.5 g/dl (12.0-16.0); Imm Gran Abs Auto 0.01 X10*3/uL (0.00-0.03); Imm Gran Pct Auto 0.2 % (0.0-0.4); Lymphocytes Absolute Auto 1.5 X10*3/uL (1.2-4.9); Lymphocytes Percent Auto 31.8 % (20-40); Mean Corpuscular HGB Conc 33.8 g/dl (31.0-35.0); Mean Corpuscular Hemoglobin 30.7 pg (27.0-33.0); Mean Corpuscular Volume 90.9 fL (80.0-98.0); Mean Platelet Volume 10.2 fL (9.4-12.3); Monocytes Absolute Auto 0.3 X10*3/uL (0.1-1.2); Monocytes Percent Auto 5.4 % (2-11); Neutrophils Absolute Auto 2.8 x10*3/uL (2.0-8.3); Neutrophils Percent Auto 61.2 % (45-73); Platelet Count 262 X10*3/uL (160-400); Red Cell Distribution Width 13.3 % (11.0-16.0); White Blood Count 4.6 X10*3/uL (4.8-10.8)
[2023-11-04 09:40] LABS: Alanine Aminotransferase 15 U/L (0-31); Albumin Level 4.5 g/dL (3.5-5.0); Alkaline Phosphatase 119 U/L (39-117); Anion Gap 13 (12-20); Aspartate Amino Transferase 21 U/L (5-31); Bilirubin Total 0.5 mg/dL (0.0-1.0); Blood Urea Nitrogen 11 mg/dL (9-16); Calcium 9.9 mg/dL (8.4-10.2); Carbon Dioxide 25 mmol/L (22-29); Chloride 109 mmol/L (96-108); Estimated Glomerular Filt Rate > 60; Glucose Random 91 mg/dL (60-115); Iron 100 mcg/dL (30-160); Percent Iron Saturation 34 % (15-50); Potassium 3.9 mmol/L (3.3-5.1); Sodium 143 mmol/L (135-145); Total Iron Binding Capacity 293 mcg/dL (228-428); Total Protein 7.3 g/dL (6.5-8.0); Unsaturated Iron Binding 193 ug/dL
[2023-11-04 09:49] LABS: Erythrocyte Sedimentation Rate 5 MM/HR (0-20)
[2023-11-04 10:22] LABS: Ferritin 55 ng/mL (10-250)
[2023-11-06 19:04] LABS: Transferrin 255 mg/dL (188-341)
[2023-11-08 04:52] LABS: Amitriptyline, Serum <5 mcg/L; Nortriptyline, Serum <5 mcg/L; Total (Ami+Nor) <5 mcg/L (100-250)
[2023-11-11 21:08] LABS: CRP High Sensitivity 1.6 mg/L
== END 2023-11-04 08:15 | disposition home or self-care (01) ==
LOC: HO.LAB 08:14
PROVIDERS: PCP Internal Medicine; Visit Provider Nurse Practitioner Family
DX: R25.2 Cramp and spasm (principal); R20.2 Paresthesia of skin; D64.9 Anemia, unspecified
CPT/HCPCS: 36415; 80053; 80335; 82550; 82728; 83540; 83735; 84466; 85025; 85652; 86141

== ENCOUNTER 2023-11-13 14:10 | Outpatient (REF) | payer MEDICAID, SELFPAY ==
--- NOTE | 2023-11-13 14:14 | EMG_ITS ---
Chief complaint: Right hand numbness Reason for referral: Evaluate for Carpal Tunnel Syndrome Referred by: Dr. Cleveland Procedure done: Right upper extremity NCS/EMG Precautions and/or limitations: None The limb temperature was monitored continuously and remained between 32-36 degrees C during the performance of the NCS. Nerve Conduction Studies Anti Sensory Summary Table ?Stim Site NR Onset (ms) Norm Onset (ms) Peak (ms) Norm Peak (ms) O-P Amp (?V) Norm O-P Amp Site1 Site2 Delta-0 (ms) Dist (cm) Octavio (m/s) Norm Octavio (m/s) Right Median Anti Sensory (2nd Digit) Wrist ? 2.3 3.0 <3.6 41.0 >10 Wrist 2nd Digit 2.3 14.0 61 Right Ulnar Anti Sensory (5th Digit) Wrist ? 2.1 3.0 <3.7 57.7 >15.0 Wrist 5th Digit 2.1 14.0 67 Motor Summary Table ?Stim Site NR Onset (ms) Norm Onset (ms) O-P Amp (mV) Norm O-P Amp iAmp (mV) Amp (1st) (%) Site1 Site2 Delta-0 (ms) Dist (cm) Octavio (m/s) Norm Octavio (m/s) Right Median Motor (Abd Poll Brev) Wrist ? 2.9 <3.9 7.3 >4.5 8.7 100.0 Elbow Wrist 3.1 19.0 61 >45 Elbow ? 6.0 7.1 8.2 97.3 Right Ulnar Motor (Abd Dig Minimi) Wrist ? 2.7 <3.0 14.3 >5 16.5 100.0 B Elbow Wrist 2.5 15.0 60 >45 B Elbow ? 5.2 13.9 16.3 97.2 A Elbow B Elbow 1.4 10.0 71 >45 A Elbow ? 6.6 13.7 16.2 95.8 Comparison Summary Table ?Stim Site NR Peak (ms) Norm Peak (ms) P-T Amp (?V) Site1 Site2 Delta-P (ms) Norm Delta (ms) Right Median/Radial Dig I Comparison (Digit 1 - 10cm) Median ? 2.5 <2.9 20.7 Median Radial 0.2 Radial ? 2.3 <2.8 28.9 EMG ?Side Muscle Nerve Root Ins Act Fibs Psw Amp Dur Poly Recrt Int Pat Comment Right 1stDorInt Ulnar C8-T1 Nml Nml Nml Nml Nml 0 Nml Complete Right FlexCarRad Median C6-7 Nml Nml Nml Nml Nml 0 Nml Complete Right Biceps Musculocut C5-6 Nml Nml Nml Nml Nml 0 Nml Complete Right Triceps Radial C6-7-8 Nml Nml Nml Nml Nml 0 Nml Complete Right Deltoid Axillary C5-6 Nml Nml Nml Nml Nml 0 Nml Complete FINDINGS: All motor and sensory nerves tested showed normal latencies, amplitudes and conduction velocities. Concentric needle EMG was performed in selected muscles of the right upper extremity. Study did not reveal signs of electric abnormalities as shown in the table below. IMPRESSION: 1. This is a normal study. 2. There is no electrodiagnostic evidence for median neuropathy, ulnar neuropathy, brachial plexopathy, or cervical radiculopathy. Thank you for your kind referral. Tanvi Garnett MD, RADHA Board Certified, [place] Board [employer] and Rehabilitation (ABPMR) Board Certified, [place] Board of Electrodiagnostic Medicine (ABEM) CODIN [id number] MTDD
== END 2023-11-13 14:11 | disposition home or self-care (01) ==
LOC: HO.NEURO 14:10
PROVIDERS: PCP Internal Medicine; Visit Provider Orthopaedic Surgery
DX: R20.2 Paresthesia of skin (principal); R20.0 Anesthesia of skin; R25.2 Cramp and spasm
CPT/HCPCS: 95886; 95909

== ENCOUNTER → 2023-11-13 14:14 | Outpatient (BNV) | payer MEDICAID, SELFPAY | PROVIDERS: PCP Internal Medicine; Visit Provider Physical Medicine & Rehabilitation | DX: R20.2 Paresthesia of skin (principal) | CPT/HCPCS: 95886; 95909 ==

== ENCOUNTER 2023-11-24 12:33 | Outpatient (REF) | payer MEDICAID, SELFPAY ==
--- NOTE | ~2023-11-24 | US_ITS ---
EXAMINATION: MM DIAGNOSTIC DIGITAL BREAST TOMOSYNTHESIS, BILATERAL US BREAST LIMITED, RIGHT MAMMOGRAPHY: CLINICAL INFORMATION: Right-sided breast pain 10-4 o'clock location. The patient was conservatively treated for right breast cancer with surgery and radiation in 2009. COMPARISON: Mammography: This study is compared with prior mammograms dating back to 2016. TECHNIQUE: Digital breast tomosynthesis is performed in both the craniocaudal and mediolateral oblique views along with computer-aided detection (CAD). Synthesized 2D images are generated from the tomosynthesis. FINDINGS: There are scattered areas of fibroglandular density (ACR BI-RADS breast composition Category b). There are no significant masses, abnormal calcifications, or other abnormalities in either breast. There are postsurgical changes just lateral to the posterior nipple line of the right breast. There are no mammographic signs of malignancy. ULTRASOUND: CLINICAL INFORMATION: Right-sided breast pain 10-4 o'clock location. TECHNIQUE: Targeted sonographic evaluation was performed using a high frequency linear transducer. Selected archived documentation. FINDINGS: RIGHT BREAST: Sonography of the 10-4 o'clock region of the right breast, the area of right breast pain is performed. There is no abnormality in this location. Clinical follow-up is advised. US/US breast RT limited mamm only IMPRESSION: Benign postsurgical changes right breast. No mammographic signs of malignancy in either breast. Clinical follow-up advised. At the time of the study, the patient was informed of the results and recommendations. OVERALL ASSESSMENT: Mammography: BI-RADS 1 - Negative Ultrasound: BI-RADS 1 - Negative RECOMMENDATION: 1. Patient should be managed based on the clinical impression. 2. Otherwise, routine annual screening mammography. Results were provided to the patient at time of visit by the technologist. This patient's information was entered into a reminder system with a target due date for their next mammogram.
== END 2023-11-24 12:34 | disposition home or self-care (01) ==
LOC: HO.MAMMO 12:33
PROVIDERS: PCP Internal Medicine; Visit Provider Internal Medicine
DX: N64.4 Mastodynia (principal); Z85.3 Personal history of malignant neoplasm of breast; Z92.3 Personal history of irradiation
CPT/HCPCS: 76642; 77062; 77066

== ENCOUNTER → 2023-11-24 13:00 | Outpatient (BNV) | payer MEDICAID, SELFPAY | PROVIDERS: PCP Internal Medicine; Visit Provider Radiology Diagnostic Radiology | DX: N64.4 Mastodynia (principal) | CPT/HCPCS: 76642; 77062; 77066 ==

== ENCOUNTER 2023-12-01 13:28 | Outpatient (AMB) | payer MEDICAID, SELFPAY ==
[2023-12-01 13:34] VITALS: BMI 18.7
--- NOTE | 2023-12-01 13:34 | A.OFFVIS_ITS ---
Intake Vital Signs 12/01/23 13:34 Height 5 ft 2 in Weight 102 lb BMI 18.7 Intake Visit Reasons: OV- EMG review B/L hands Intake Note: Diana 58 yr old female presents today for her follow up visit for her right ring, right small & right middle finger severe joint stiffness and also to review her EMG study which was done with Dr. Torres. Allergies codeine [CODEINE] Allergy (Intermediate, Verified 12/01/23 13:40) DIZZY/NAUSEA, nausea/vomiting escitalopram [From LEXAPRO] Allergy (Intermediate, Verified 12/01/23 13:40) ? NAUSEA meperidine [MEPERIDINE] Allergy (Intermediate, Verified 12/01/23 13:40) NAUSEA morphine [MORPHINE] Allergy (Intermediate, Verified 12/01/23 13:40) PALPITATIONS, palpitation oxycodone [OXYCODONE] Allergy (Intermediate, Verified 12/01/23 13:40) PALPATATIONS, palpitations tramadol Allergy (Unknown, Verified 12/01/23 13:40) dizziness, nausea acetaminophen [From Percocet] Allergy (Verified 12/01/23 13:40) Shakiness HPI OV- EMG review B/L hands HPI Details Diana is a 58 year old right hand dominant Kyrgyz speaking woman who returns to discuss her right middle, ring, and small finger painful stiffness, and a NCS review of her right hand numbness. She demonstrates that she continues to have pain extending linearly from the dorsal aspect of her fingers across the dorsal aspect of her wrist up her dorsal right forearm. She also reports that she has trouble holding onto anything heavy. This is most likely because she has stiffness in her fingers. She has been seen several times for right hand numbness, and stiffness of the right middle, ring, and small fingers. She has attended OT hand therapy twice before, but she does not want to go to therapy again. She says she has been experiencing this pain, and working on managing this, since 2019. She was first seen by me on 08/07/21 with complaints of stiffness & pain. She also has a hx of Fibromyalgia as well as numbness and burning in her feet according to notes by Rheumatology. Please see my notes from 03/19/22, 06/29/23, and 10/06/23 for more information as necessary [facility] Medical History (Updated 10/13/23 @ 16:23 by REINA Barrios) Migraine Anemia Diarrhea Depression Somatization disorder Migraine equivalent syndrome Anxiety Periodontal disease Primary osteoarthritis of right hand Fibromyalgia Surgical History History of esophagogastroduodenoscopy (EGD) History of lumpectomy Hx of section Hx of shoulder surgery Hx of colonoscopy Family History Mother HTN (hypertension) Sister Breast cancer Bone cancer Colon polyps Sister Osteoporosis Hypercholesteremia Colon polyps Social History Household Members: Children Housing: Apartment Are you a primary healthcare advisory services manager to a significant other at home: No Do you presently have visiting nurse or other home services: Yes Alcohol intake: never Patient Tobacco Use Status: Former Tobacco user Years Smoked: 3 service: No Current occupational status: disabled 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 Vascular: Cap refill brisk ROM: The small and ring fingers look somewhat atrophic because of lack of active range of motion. She is missing the wrinkles over the PIP joints. When asked to make a fist she could bring her index finger well close to a fist, and her middle finger tip to about 1 cm from her palm which is a considerable improvement from when she was 1st seen by me back in June of 2021. Back then she was only opposing her index finger to her thumb, and now she is readily using her index and middle finger with 3 point giulia and able to bring the middle finger closed closer to a fist. She still has significant stiffness in the right ring and small fingers. However, this is also improved since I saw her in August of 2021 when she only had about 20 degrees of flexion at the MCP joints of these digits. Now she is actively bring the MCP joints of these digits closer to 80 degrees or so of flexion with about 40 degrees of flexion at the ring finger PIP joint. The small finger PIP joint is still held in extension with a mallet finger deformity at the D IP joint of the small finger. When asked her to demonstrate where she has pain, she demonstrates pain in a linear distribution across the dorsal aspect of her hand wrist up to the dorsal forearm. There is no swelling or warmth in this area. She has not particularly tender in this area. She had good active flexion and extension at the wrist without evidence of discomfort. Mild tenderness over the basal joint of the thumb and over the 1st dorsal compartment. She does not really appear to have a shoulder sign. I do not appreciate any swelling or erythema over the 1st dorsal compartment. Nerve Conduction study: Right Side: IMPRESSION: 1. This is a normal study. 2. There is no electrodiagnostic evidence for median neuropathy, ulnar neuropathy, brachial plexopathy, or cervical radiculopathy. Tanvi Garnett MD, [facility] 11/13/23 Impression Normal motor and sensory nerve conduction velocities in the upper and lower extremities. Normal EMG in the left C5-T1 and L4-S1 innervated muscles Please see his report for additional information as necessary Dr. Sands 07/24/21 Psych Appearance: grossly normal Affect: normal affect Attitude: cooperative Assessment & Plan Assessment & Plan (1) Numbness and tingling in right hand: Code(s): R20.0 - Anesthesia of skin; R20.2 - Paresthesia of skin (2) Stiffness of finger joint of right hand: Code(s): M25.641 - Stiffness of right hand, not elsewhere classified (3) Fibromyalgia: Code(s): M79.7 - Fibromyalgia (4) Extensor tendinitis of hand: Code(s): M77.8 - Other enthesopathies, not elsewhere classified (5) Right hand pain: Code(s): M79.641 - Pain in right hand Plan Assessment and plan: 1. Non-focal pain dorsum right hand & wrist, extending full length of the dorsal forearm Possible mild extensor tendinitis No tenderness over the extensor origin 2. Discomfort over the right 1st dorsal compartment and basal joint She has no locking or catching I educated her about this condition She has been working on at-home exercises and found limited improvement from OT in the past I discussed activity modification and explained the importance of maintaining her ROM and using her hand for daily activities. 3. Right middle finger severe joint stiffness This has improved quite a bit since her last appointment In August of 2021 she essentially held the middle finger in extension at all joints, and only oppose the index finger to the thumb. Now she is clearly using the middle finger with the index finger both to oppose the thumb and to grasp. This is significant improvement. 4. Right ring finger severe joint stiffness 5. Right small finger severe joint stiffness In August of 2021 she had significant stiffness in the MCP and PIP joints of both of these digits, having only 20 degrees of MCP flexion. She now has approximately 80-85 degrees of MCP joint flexion in both fingers, and about 40 degrees of flexion at the ring finger PIP joint. These joints are still stiff but this is an improvement from when she started. I again discussed the importance of working on ROM exercises. I explained that there is no operation that would improve her symptoms and she has to continue to work on her motion & use of her hands. She really needs to do this for the middle, ring, and small fingers. We have been talking about this for a long time. I recommended Tylenol or Ibuprofen for pain relief, particularly at night or following her exercises as this is when she says her pain is worse. 6. Numbness and tingling in right hand With dense numbness to the tips of all digits Her NCS from 07/24/21 was normal Her recent NCS from 11/13/23 was also normal with no evidence of peripheral nerve compression No operative intervention indicated. Please note that greater than 30 minutes was spent seeing the patient, reviewing her past documentation, evaluating the patient, educating the patient about her right upper extremity, and revising the documentation for her visit. Scribed for Sydney Cleveland MD by Nawaf Man, center medical and lab director, on 12/01/23 at 1:55 PM, EST. Coding Level of Care Code Est Pt Level 4 (48544) Diagnoses Numbness and tingling in right hand R20.0; R20.2 Stiffness of finger joint of right hand M25.641 Fibromyalgia M79.7 Extensor tendinitis of hand M77.8 Right hand pain M79.641
== END 2023-12-01 14:03 | disposition home or self-care (01) ==
PROVIDERS: PCP Internal Medicine; Visit Provider Orthopaedic Surgery
DX: R20.0 Anesthesia of skin (principal); R20.2 Paresthesia of skin; M25.641 Stiffness of right hand, not elsewhere classified; M79.7 Fibromyalgia; M77.8 Other enthesopathies, not elsewhere classified; M79.641 Pain in right hand
CPT/HCPCS: 99214

== ENCOUNTER → 2023-12-01 13:28 | Outpatient (BNVA) | payer MEDICAID, SELFPAY | PROVIDERS: PCP Internal Medicine; Visit Provider Orthopaedic Surgery | DX: R20.0 Anesthesia of skin (principal); R20.2 Paresthesia of skin; M25.641 Stiffness of right hand, not elsewhere classified; M79.7 Fibromyalgia; M77.8 Other enthesopathies, not elsewhere classified; M79.641 Pain in right hand | CPT/HCPCS: 99212 ==

== ENCOUNTER 2023-12-03 12:36 | Outpatient (AMB) | payer MEDICAID, SELFPAY ==
--- NOTE | 2023-12-03 12:39 | MHC.OFFVIS ---
Intake Vital Signs 12/03/23 12:43 Height 5 ft 2 in Weight 102 lb BMI 18.7 Intake Visit Reasons: OV-Right shoulder injection-last injection 06/29/23 Intake Note: Diana 58 yr old female presents today for her right shoulder s/p injection from 06/29/23. Patient states injection did not help much and is not sure if she wants to repeat in injection today. States her ROM is limited and is painful. Allergies codeine [CODEINE] Allergy (Intermediate, Verified 12/03/23 12:39) DIZZY/NAUSEA, nausea/vomiting escitalopram [From LEXAPRO] Allergy (Intermediate, Verified 12/03/23 12:39) ? NAUSEA meperidine [MEPERIDINE] Allergy (Intermediate, Verified 12/03/23 12:39) NAUSEA morphine [MORPHINE] Allergy (Intermediate, Verified 12/03/23 12:39) PALPITATIONS, palpitation oxycodone [OXYCODONE] Allergy (Intermediate, Verified 12/03/23 12:39) PALPATATIONS, palpitations tramadol Allergy (Unknown, Verified 12/03/23 12:39) dizziness, nausea acetaminophen [From Percocet] Allergy (Verified 12/03/23 12:39) Shakiness HPI OV-Right shoulder injection-last injection 06/29/23 HPI Details 58-year-old female who returns to the office today with an loader demolder for a follow-up of right shoulder pain. She currently states she has limited ROM and pain in her right shoulder which is aggravated at night and with picking out trash. She also experiences as if her shoulder will pop with activities. She had physical therapy in the past for her shoulder. She had her last injection on 06/29/23 which did not provide her much relief. She is unsure if she wants to repeat the injection today. [facility] Medical History (Updated 10/13/23 @ 16:23 by REINA Barrios) Migraine Anemia Diarrhea Depression Somatization disorder Migraine equivalent syndrome Anxiety Periodontal disease Primary osteoarthritis of right hand Fibromyalgia Surgical History History of esophagogastroduodenoscopy (EGD) History of lumpectomy Hx of section Hx of shoulder surgery Hx of colonoscopy Family History Mother HTN (hypertension) Sister Breast cancer Bone cancer Colon polyps Sister Osteoporosis Hypercholesteremia Colon polyps Social History Household Members: Children Housing: Apartment Are you a primary animal care service worker to a significant other at home: No Do you presently have visiting nurse or other home services: Yes Alcohol intake: never Patient Tobacco Use Status: Former Tobacco user Years Smoked: 3 service: No Current occupational status: disabled 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 Review of Systems Const All systems reviewed & are unremarkable except as noted in HPI and below Physical Exam Vital Signs: BMI result Body Mass Index 18.7 Const General: cooperative, healthy appearing, comfortable, no acute distress, well developed and alert Orientation/consciousness: patient oriented x3 HEENT Head: Yes normal to inspection, Yes normocephalic and Yes atraumatic Eyes General: appearance normal, both eyes and all related structures Resp Effort & Inspection: normal respiratory effort and able to speak in complete sentences Cardio Rate: regular rate Peripheral pulses: Peripheral pulses 2+ throughout GI Palpation (GI): Soft to palpation Skin Lesions: no lesions Rashes: no rashes Neuro General: patient oriented x3 Extrem Other: Right shoulder normal to inspection. Tenderness over the bicipital groove and along the deltoid region of the shoulder. Forward flexion to 175, external rotation to 90, internal rotation to S1. 5/5 RTC strength. Positive Diaz and O'Briens. NVI. Assessment & Plan Assessment & Plan (1) Right shoulder tendinitis: Code(s): M77.8 - Other enthesopathies, not elsewhere classified Plan She will hold off a cortisone injection today as it did not provide her any relief in the past. An MRI of the right shoulder has been obtained to compel the previous study she had in 2016 to see if there is anything that could be the source of her continued pain. Orders: Orders MR shoulder RT wo con Today M77.8 - Other enthesopathies, not elsewhere classified Patient Instructions: Scribed for Denilson Forman PA-C, by David Rutherford medical art therapist, on 12/03/2023 at 12:45 PM JACKSON. Denilson Jewell PA-C, have personally reviewed and agree with the information entered by the scribe. Coding Level of Care Code Est Pt Level 3 (41076) Diagnoses Right shoulder tendinitis M77.8
[2023-12-03 12:43] VITALS: BMI 18.7
== END 2023-12-03 13:42 | disposition home or self-care (01) ==
PROVIDERS: PCP Internal Medicine; Visit Provider Physician Assistant
DX: M77.8 Other enthesopathies, not elsewhere classified (principal)
CPT/HCPCS: 99213

== ENCOUNTER → 2023-12-03 12:36 | Outpatient (BNVA) | payer MEDICAID, SELFPAY | PROVIDERS: PCP Internal Medicine; Visit Provider Physician Assistant | DX: M77.8 Other enthesopathies, not elsewhere classified (principal) | CPT/HCPCS: 99212 ==

== ENCOUNTER 2023-12-08 10:53 | Outpatient (REF) | payer MEDICAID, SELFPAY ==
--- NOTE | 2023-12-08 14:27 | PFT_ITS ---
Flows: FEV1: 105 % of predicted at 2.43 L FVC: 95 % of predicted at 2.79 L FEV1/FVC: 87 % Bronchodilator response: Absent Volumes: Total lung capacity: 102 % of predicted at 4.85 L Residual volume: 123 % of predicted at 1.99 L Slow vital capacity: 91 % of predicted at 2.86 L Expiratory reserve volume: 92 % of predicted at 0.70 L Diffusion capacity: Mildly decreased Impression: No obstructive or restrictive ventilatory defect. No bronchodilator response. Decreased diffusion capacity suggests emphysema. MTDD
== END 2023-12-08 10:54 | disposition home or self-care (01) ==
LOC: HO.RESP 10:53
PROVIDERS: PCP Internal Medicine; Visit Provider Internal Medicine Pulmonary Disease
DX: J70.1 Chronic and other pulmonary manifestations due to radiation (principal); R06.00 Dyspnea, unspecified; Z92.3 Personal history of irradiation

== ENCOUNTER → 2023-12-08 14:27 | Outpatient (BNV) | payer MEDICAID, SELFPAY | PROVIDERS: PCP Internal Medicine; Visit Provider Internal Medicine Pulmonary Disease | DX: J70.1 Chronic and other pulmonary manifestations due to radiation (principal) | CPT/HCPCS: 94060; 94727; 94729 ==

== ENCOUNTER 2023-12-16 10:47 | Outpatient (AMB) | payer MEDICAID, SELFPAY ==
--- NOTE | 2023-12-16 10:55 | MHC.OFFVIS ---
Intake Vital Signs 12/16/23 10:56 Weight 106 lb 14.787 oz BP 88/52 L Blood Pressure Location Lt brachial Position Sitting Pulse 92 Pulse Source Doppler Pulse Oximetry (%) 98 Oxygen Delivery Method Room Air Intake Visit Reasons: S/p pft Allergies codeine [CODEINE] Allergy (Intermediate, Verified 12/16/23 11:01) DIZZY/NAUSEA, nausea/vomiting escitalopram [From LEXAPRO] Allergy (Intermediate, Verified 12/16/23 11:01) ? NAUSEA meperidine [MEPERIDINE] Allergy (Intermediate, Verified 12/16/23 11:01) NAUSEA morphine [MORPHINE] Allergy (Intermediate, Verified 12/16/23 11:01) PALPITATIONS, palpitation oxycodone [OXYCODONE] Allergy (Intermediate, Verified 12/16/23 11:01) PALPATATIONS, palpitations tramadol Allergy (Unknown, Verified 12/16/23 11:01) dizziness, nausea acetaminophen [From Percocet] Allergy (Verified 12/16/23 11:01) Shakiness HPI S/p pft HPI Details 58-year-old lady, former minimal smoker, with underlying history of right breast cancer status post lumpectomy, chemo, and radiation in 2010 referred for evaluation of dyspnea on exertion that occurs after patient walks for several blocks.? She has had a recent negative cardiac workup.? Patient denies prior personal history of lung disease.? She has lots of first-degree relatives with asthma.? Patient has had COVID back in December of 2020, however her dyspnea symptoms predate but got worse after her COVID infection.? She denies any wheezing, cough, sputum production.? She has multiple environmental allergies. Her pulmonary function test showed mild decrease in diffusion capacity and otherwise has been unremarkable.? After the last office visit patient has completed her CT chest that is normal and pulmonary function test that is essentially normal with only minor defect in diffusion capacity that does not explain her symptoms. She was tried on Telegy with no significant changes in underlying symptomatology either. [facility] Medical History (Updated 12/16/23 @ 11:22 by Anthony Curtis MD) Migraine Anemia Diarrhea Depression Somatization disorder Migraine equivalent syndrome Anxiety Periodontal disease Primary osteoarthritis of right hand Fibromyalgia Surgical History History of esophagogastroduodenoscopy (EGD) History of lumpectomy Hx of section Hx of shoulder surgery Hx of colonoscopy Family History Mother HTN (hypertension) Sister Breast cancer Bone cancer Colon polyps Sister Osteoporosis Hypercholesteremia Colon polyps Social History Household Members: Children Housing: Apartment Are you a primary child care center administrator to a significant other at home: No Do you presently have visiting nurse or other home services: Yes Alcohol intake: never Patient Tobacco Use Status: Former Tobacco user Years Smoked: 3 service: No Current occupational status: disabled 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 Review of Systems Const Denies daytime sleepiness, Denies excessive sweating, Denies fatigue, Denies fever(s), Denies lethargy, Denies malaise, Denies night sweats, Denies snoring and Denies weight loss Eyes Denies blurry vision and Denies itchy eyes ENT Denies nasal congestion, Denies post nasal drip, Denies sinus pain, Denies sinus pressure and Denies other ( Thrush) Card Denies chest pain, Denies pedal edema, Denies dyspnea, Reports dyspnea on exertion, Denies orthopnea and Denies paroxysmal nocturnal dyspnea Resp Denies cough, Denies hemoptysis, Denies excessive phlegm production, Denies dyspnea, Reports dyspnea on exertion, Denies snoring and Denies wheezing GI Denies abdominal pain and Denies heartburn Musc Denies myalgias, Denies arthralgias and Denies joint swelling Skin/Breast Denies rash Neuro Denies memory loss and Denies seizure-like activity Psych Denies abnormal sleep pattern, Denies anxiety and Denies memory loss Endo Denies excessive sweating, Denies fatigue and Denies heat intolerance Marko/Lymph Denies easy bruising Aller/Immun Denies itchy eyes, Denies seasonal rhinorrhea and Denies wheezing Physical Exam Vital Signs: Last Vital Signs Pulse 92 12/16/23 10:56 BP 88/52 L 12/16/23 10:56 Pulse Ox 98 12/16/23 10:56 Oxygen Delivery Method Room Air 12/16/23 10:56 Const General: no acute distress and alert Nutritional Appearance: not obese Orientation/consciousness: Other orientation findings ( oriented) HEENT Head: Yes atraumatic Eyes General: appearance normal, both eyes and all related structures Sclerae: sclerae normal EOM: EOMs intact bilaterally Neck Neck: Yes supple Lymphatic: no lymphadenopathy noted Resp Effort & Inspection: normal respiratory effort and no use of accessory muscles Auscultation: clear to auscultation bilaterally Cardio Rate: regular rate Rhythm: regular rhythm Heart sounds: no gallops, no murmurs and no rubs Skin General skin exam: other ( warm) Extrem General: No clubbing, No cyanosis and No edema Assessment & Plan Assessment & Plan (1) Dyspnea on exertion: Code(s): R06.00 - Dyspnea, unspecified Plan: Pulmonary workup is essentially normal. Patient has been advised to discuss her symptoms with her director of pharmacy. If still unclear, will consider obtaining cardiopulmonary exercise testing. Coding Level of Care Code Est Pt Level 3 (55623) Diagnoses Dyspnea on exertion R06.00
[2023-12-16 10:56] VITALS: BP 88/52; PULSE 92; O2SAT 98
== END 2023-12-16 11:19 | disposition home or self-care (01) ==
PROVIDERS: PCP Internal Medicine; Visit Provider Internal Medicine Pulmonary Disease
DX: R06.00 Dyspnea, unspecified (principal)
CPT/HCPCS: 99213

== ENCOUNTER → 2023-12-16 10:47 | Outpatient (BNVA) | payer MEDICAID, SELFPAY | PROVIDERS: PCP Internal Medicine; Visit Provider Internal Medicine Pulmonary Disease | DX: R06.00 Dyspnea, unspecified (principal) | CPT/HCPCS: 99212 ==

== ENCOUNTER 2024-01-12 10:20 | Outpatient (REF) | payer MEDICAID, SELFPAY ==
--- NOTE | ~2024-01-12 | MR_ITS ---
EXAMINATION: MR SHOULDER WITHOUT CONTRAST, RIGHT CLINICAL INFORMATION: Right shoulder pain and decreased range of motion. Surgery for rotator cuff impingement and adhesive capsulitis in 2016. COMPARISON: Right shoulder radiographs dated 02/11/2023 and MRI dated 10/23/2016. TECHNIQUE: MRI of the shoulder without contrast was performed on a high-field scanner. FINDINGS: ROTATOR CUFF: Attenuation of the supraspinatus and infraspinatus tendons is redemonstrated, similar when compared to the prior examination. Findings could represent normal variation versus chronic partial tearing. No new rotator cuff tendon tear. No muscle atrophy or fatty infiltration. BICEPS: Intact. CORACOACROMIAL ARCH: The undersurface of the acromion is attenuated, consistent with interval acromioplasty. Mild acromioclavicular osteoarthritis. Fluid within the subacromial-subdeltoid bursa which may represent mild bursitis. LABRUM/CAPSULE: No labral tear. Intact joint capsule. GLENOHUMERAL JOINT/MARROW: Unremarkable. MR/MR shoulder RT wo con IMPRESSION: 1. Attenuation of the supraspinatus and infraspinatus tendons, similar when compared to the prior examination. Findings could represent normal variation versus chronic partial tearing. No new rotator cuff tendon tear. 2. Interval acromioplasty. Mild acromioclavicular osteoarthritis. Fluid within the subacromial-subdeltoid bursa which may represent mild bursitis.
== END 2024-01-12 10:21 | disposition home or self-care (01) ==
LOC: HO.MRI 10:20
PROVIDERS: PCP Internal Medicine; Visit Provider Physician Assistant
DX: M77.8 Other enthesopathies, not elsewhere classified (principal)
CPT/HCPCS: 73221

== ENCOUNTER 2024-01-13 11:13 | Outpatient (AMB) | payer MEDICAID, SELFPAY ==
--- NOTE | 2024-01-13 11:19 | A.OFFVIS_ITS ---
Vital Signs 01/13/24 11:22 Height 5 ft 2 in Weight 107 lb BMI 19.6 BP 86/72 L Blood Pressure Location Rt brachial Position Sitting Pulse 84 Pulse Source Pulse Oximeter Pulse Oximetry (%) 97 Oxygen Delivery Method Room Air Intake Visit Reasons: 3 mo f/u - Migraine-LVM Intake Note: Patient presents for 3 month follow up migraines patient still having a lot of migraines Allergies codeine [CODEINE] Allergy (Intermediate, Verified 03/23/24 10:36) DIZZY/NAUSEA, nausea/vomiting escitalopram [From LEXAPRO] Allergy (Intermediate, Verified 03/23/24 10:36) ? NAUSEA meperidine [MEPERIDINE] Allergy (Intermediate, Verified 03/23/24 10:36) NAUSEA morphine [MORPHINE] Allergy (Intermediate, Verified 03/23/24 10:36) PALPITATIONS, palpitation oxycodone [OXYCODONE] Allergy (Intermediate, Verified 03/23/24 10:36) PALPATATIONS, palpitations tramadol Allergy (Unknown, Verified 03/23/24 10:36) dizziness, nausea acetaminophen [From Percocet] Allergy (Verified 03/23/24 10:36) Shakiness Medication List - Last Reconciled 01/13/24 by REINA Barrios acetaminophen ER 650 mg PO ONCE PRN albuterol sulfate 90 mcg/actuation (ProAir HFA) 2 puffs inhalation Q6H PRN 30 days amitriptyline 100 mg PO BEDTIME buspirone 15 mg PO TID zaenulazyi-kmyhgungpbsbz-zzqw 50-325-40 mg 1 tab PO Q6H PRN cholecalciferol (vitamin D3) 50 mcg PO DAILY clonazepam 1 mg PO BID PRN cyanocobalamin (vitamin B-12) 100 mcg PO DAILY cyclobenzaprine 5 mg PO BID PRN diclofenac sodium 1% 2 grams topical TID dicyclomine 40 mg (2 x 20 mg) PO QID famotidine 40 mg PO BEDTIME bhebbnlflsp-yzhvrzirz-hhbgerix 200-62.5-25 mcg (Trelegy Ellipta) 1 inh inhalation Q24H 30 days hydroxyzine HCl 25 mg PO BID PRN loratadine 10 mg PO DAILY melatonin 10 mg (2 x 5 mg) PO BEDTIME PRN 90 days mirtazapine 45 mg PO BEDTIME naproxen 500 mg PO BID olanzapine 20 mg PO BEDTIME omeprazole 20 mg PO DAILY 30 days prazosin 4 mg PO BEDTIME pregabalin 150 mg PO BID psyllium husk (Fiber (psyllium husk)) 0.4 grams PO BID ropinirole 0.5 mg (2 x 0.25 mg) PO TID 30 days sennosides (senna) 17.2 mg (2 x 8.6 mg) PO BEDTIME sertraline 200 mg PO DAILY sumatriptan succinate 100 mg orally at onset of headache, may repeat in 2 hrs PRN; max 2 tabs per day or 4 tabs/week (may take with Naproxen 440mg or Tylenol 1000mg) 30 days HPI Comments Details: 59-yr-old female presents for f/u visit. She reports BLE discomfort, restlessness (mind), cramps, jumping in the legs. She wants to stay still, as any movement makes the pain worse. Her arms can be painful too. Has hand cramps. Is being f/b Ortho. She is having 2-3 migraine day per week. Sometimes Tylenol helps but not always. She does not have any Sumatriptan. Her scheduled meds are in a locked box- she has nurse management. [facility] Medical History Migraine Anemia Diarrhea Depression Somatization disorder Migraine equivalent syndrome Anxiety Periodontal disease Primary osteoarthritis of right hand Fibromyalgia Surgical History History of esophagogastroduodenoscopy (EGD) History of lumpectomy Hx of section Hx of shoulder surgery Hx of colonoscopy Family History Mother HTN (hypertension) Sister Breast cancer Bone cancer Colon polyps Sister Osteoporosis Hypercholesteremia Colon polyps Social History Household Members: None Housing: Apartment Are you a primary foster care case manager to a significant other at home: No Do you presently have visiting nurse or other home services: Yes (CUSTOMER SUPPORT ANALYST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 Physical Exam Vital Signs: Last Vital Signs Pulse 84 01/13/24 11:22 BP 86/72 L 01/13/24 11:22 Pulse Ox 97 01/13/24 11:22 Oxygen Delivery Method Room Air 01/13/24 11:22 BMI result Body Mass Index 19.6 Const General: cooperative and no acute distress Orientation/consciousness: patient oriented x3 Resp Effort & Inspection: normal respiratory effort and able to speak in complete sentences Neuro General: patient oriented x3 Cranial nerves: Yes CN's II-XII intact bilaterally Cognition (Neuro): normal cognition Psych Appearance: grossly normal Mental Status: mental status grossly normal Speech and movement: Normal speech and movement present Affect: normal affect Attitude: cooperative Assessment & Plan Assessment & Plan (1) Leg cramps: Code(s): R25.2 - Cramp and spasm Category: Medical (2) Bilateral leg paresthesia: Code(s): R20.2 - Paresthesia of skin Category: Medical (3) Migraine: Code(s): G43.909 - Migraine, unspecified, not intractable, without status migrainosus Category: Medical Plan For sleep: Reviewed BLE EMG/NCS- normal. Reviewed labs- results notable for ferritin 55, which is read as normal but lower than goal of > 75 for RLS s/s. Start Ferrous sulfate 325mg w/ vit C 500mg 3 x's per week, and prn colace 100mg bid. Continue Requip 0.5mg tid. Continue Prazosin. Continue Melatonin 10mg qhs. ? For migraine: Sumatriptan 100mg tab- at onset of headache, may repeat in 2 hrs PRN; max 2 tabs per day or 4 tabs/week. Advised to take Sumatriptan w/ Naproxen 500mg. Continue Amitriptyline 100mg qhs Her Nurse is Collette Kinney. [facility]. ? f/u in 3 months or sooner prn Medications: New docusate sodium (Colace) 100 mg PO BID PRN 60 caps 3RF constipation 30 days ferrous sulfate 325 mg orally 3 x's per week on Thu-Thu-Thu; 12 tabs 6RF 30 days ascorbate calcium (vitamin C) 500 mg orally 3 x's per week on Thu-Thu-Thu (take w/ ferrous sulfate). 12 tabs 3RF 30 days Coding Level of Care Code Est Pt Level 4 (53838) Diagnoses Leg cramps R25.2 Bilateral leg paresthesia R20.2 Migraine G43.909
[2024-01-13 11:22] VITALS: BP 86/72; PULSE 84; O2SAT 97; BMI 19.6
== END 2024-01-13 11:59 | disposition home or self-care (01) ==
PROVIDERS: PCP Internal Medicine; Visit Provider Nurse Practitioner Family
DX: R25.2 Cramp and spasm (principal); R20.2 Paresthesia of skin; G43.909 Migraine, unspecified, not intractable, without status migrainosus
CPT/HCPCS: 99214

== ENCOUNTER → 2024-01-13 11:13 | Outpatient (BNVA) | payer MEDICAID, SELFPAY | PROVIDERS: PCP Internal Medicine; Visit Provider Nurse Practitioner Family | DX: G43.909 Migraine, unspecified, not intractable, without status migrainosus (principal); R25.2 Cramp and spasm; R20.2 Paresthesia of skin; Z79.899 Other long term (current) drug therapy | CPT/HCPCS: 99212 ==

== ENCOUNTER 2024-01-18 09:12 | Emergency (ER) | payer MEDICAID, SELFPAY ==
--- NOTE | 2024-01-18 | ECG_ITS ---
Test Reason : CHEST PAIN Blood Pressure : / mmHG Vent. Rate : 079 BPM Atrial Rate : 079 BPM P-R Int : 130 ms QRS Dur : 080 ms QT Int : 348 ms P-R-T Axes : 047 054 040 degrees QTc Int : 399 ms Normal sinus rhythm Normal ECG When compared with ECG of 14-JUL-2023 09:40, No significant change was found Referred By: Generic ED Physician Electronically Signed By:CT MONTELONGO
[2024-01-18 09:40] LABS: MANUAL DIFF FLAG NO
[2024-01-18 09:41] LABS: Basophils Percent Auto 0.6 % (0-2); Eosinophils Absolute Auto 0.1 X10*3/uL (0.0-0.4); Eosinophils Percent Auto 1.5 % (0-4); Hemoglobin 13.2 g/dl (12.0-16.0); Imm Gran Abs Auto 0.01 X10*3/uL (0.00-0.03); Imm Gran Pct Auto 0.2 % (0.0-0.4); Lymphocytes Absolute Auto 1.7 X10*3/uL (1.2-4.9); Lymphocytes Percent Auto 34.6 % (20-40); Mean Corpuscular Hemoglobin 30.3 pg (27.0-33.0); Mean Corpuscular Volume 91.7 fL (80.0-98.0); Mean Platelet Volume 8.5 fL (9.4-12.3); Monocytes Absolute Auto 0.3 X10*3/uL (0.1-1.2); Monocytes Percent Auto 7.1 % (2-11); Neutrophils Absolute Auto 2.7 x10*3/uL (2.0-8.3); Platelet Count 308 X10*3/uL (160-400); Red Blood Count 4.36 X10*6/uL (4.20-5.50); Red Cell Distribution Width 13.2 % (11.0-16.0); White Blood Count 4.8 X10*3/uL (4.8-10.8)
[2024-01-18 09:42] VITALS: BP 116/60; PULSE 79; RESP 16; TEMP 36.7; O2SAT 97
[2024-01-18 09:56] LABS: Alanine Aminotransferase 22 U/L (0-31); Albumin Level 4.4 g/dL (3.5-5.0); Alkaline Phosphatase 127 U/L (39-117); Anion Gap 10 (12-20); Aspartate Amino Transferase 28 U/L (5-31); Bilirubin Total 0.2 mg/dL (0.0-1.0); Blood Urea Nitrogen 13 mg/dL (9-16); Calcium 9.7 mg/dL (8.4-10.2); Carbon Dioxide 31 mmol/L (22-29); Chloride 104 mmol/L (96-108); Creatinine Clr Calc Pharmacy 53.8; Estimated Glomerular Filt Rate > 60; Glucose Random 83 mg/dL (60-115); Potassium 4.2 mmol/L (3.3-5.1); Sodium 141 mmol/L (135-145); Total Protein 7.1 g/dL (6.5-8.0)
[2024-01-18 10:05] LABS: Troponin-I High Sensitivity < 2.7 ng/L (<3.5-17.0)
== END 2024-01-18 19:45 | disposition left against medical advice (07) ==
LOC: HO.ED 19:39
PROVIDERS: Emergency Provider Emergency Medicine; PCP Internal Medicine
DX: R07.9 Chest pain, unspecified (principal)
CPT/HCPCS: 36415; 80053; 84484; 85025; 93005; 99283

== ENCOUNTER → 2024-01-18 09:24 | Outpatient (BNV) | payer MEDICAID, SELFPAY | PROVIDERS: PCP Internal Medicine; Visit Provider Internal Medicine | DX: R07.9 Chest pain, unspecified (principal) | CPT/HCPCS: 93010 ==

== ENCOUNTER 2024-01-26 09:44 | Outpatient (REF) | payer MEDICAID, SELFPAY ==
[2024-01-26 11:30] LABS: C Reactive Protein 0.17 mg/dL (< or = 0.50)
[2024-01-26 11:47] LABS: Thyroid Stimulating Hormone 1.81 uIU/mL (0.32-4.0)
[2024-01-26 11:49] LABS: Erythrocyte Sedimentation Rate 5 MM/HR (0-20)
== END 2024-01-26 09:45 | disposition home or self-care (01) ==
LOC: HO.LAB 09:44
PROVIDERS: PCP Internal Medicine; Visit Provider Psychiatry & Neurology Neurology
DX: M79.7 Fibromyalgia (principal)
CPT/HCPCS: 36415; 82550; 84443; 85652; 86140

== ENCOUNTER 2024-02-05 12:29 | Outpatient (REF) | payer MEDICAID, SELFPAY ==
--- NOTE | ~2024-02-05 | XR_ITS ---
EXAMINATION: X-ray bilateral hips CLINICAL INFORMATION: Pain COMPARISON: Right hip 02/16/2018 TECHNIQUE: Right hip 2 views. Left hip 2 views. FINDINGS: Right hip: Anatomic alignment. Joint space is maintained. No acute fracture or dislocation. No abnormal soft tissue calcification. Left hip: Anatomic alignment. Joint space is maintained. No acute fracture or dislocation. No abnormal soft tissue calcification XR/XR hip RT min 2V IMPRESSION: No acute osseous abnormality
--- NOTE | ~2024-02-05 | XR_ITS ---
EXAMINATION: X-ray bilateral hips CLINICAL INFORMATION: Pain COMPARISON: Right hip 02/16/2018 TECHNIQUE: Right hip 2 views. Left hip 2 views. FINDINGS: Right hip: Anatomic alignment. Joint space is maintained. No acute fracture or dislocation. No abnormal soft tissue calcification. Left hip: Anatomic alignment. Joint space is maintained. No acute fracture or dislocation. No abnormal soft tissue calcification XR/XR hip LT min 2V IMPRESSION: No acute osseous abnormality
== END 2024-02-05 12:30 | disposition home or self-care (01) ==
LOC: HO.XRAY 12:29
PROVIDERS: PCP Internal Medicine; Visit Provider Internal Medicine
DX: M25.551 Pain in right hip (principal); M25.552 Pain in left hip
CPT/HCPCS: 73502

== ENCOUNTER 2024-02-29 09:22 | Inpatient (IN) | payer MEDICAID, SELFPAY ==
[2024-02-29] VITALS (11 sets, daily range): BP systolic 98–123; BP diastolic 52–78; PULSE 64–773; RESP 16–18; TEMP 36.3–37; O2SAT 96–99; BMI 19.4
--- NOTE | 2024-02-29 | ECG_ITS ---
Test Reason : Chest Pain Blood Pressure : / mmHG Vent. Rate : 065 BPM Atrial Rate : 065 BPM P-R Int : 136 ms QRS Dur : 088 ms QT Int : 376 ms P-R-T Axes : 063 060 049 degrees QTc Int : 391 ms Normal sinus rhythm Normal ECG When compared with ECG of 18-JAN-2024 09:24, No significant change was found Referred By: Generic ED Physician Electronically Signed By:CT MONTELONGO
--- NOTE | 2024-02-29 | EEG_ITS ---
FINDINGS: Waking background activity consists of a well-defined low voltage 10 to 11 hertz posterior alpha frequency intermixed anteriorly with low-voltage fast frequencies anteriorly. Photic stimulation is without activation. Hyperventilation is omitted. Brief stages of sleep are reported with frontal-central sleep spindles. No focal, lateralizing, or paroxysmal discharges are seen. IMPRESSION: This waking and briefly sleep EEG within normal limits MD DAVID Rodgers/MODL / [id number]
--- NOTE | ~2024-02-29 | MR_ITS ---
EXAMINATION: MR BRAIN WITHOUT CONTRAST CLINICAL INFORMATION: nystagmus, vertigo with collapse, ?cva COMPARISON: MRI of the brain with and without contrast 08/09/22, CT head without contrast 02/29/24 TECHNIQUE: Multiplanar multisequence MR imaging of the brain was obtained without intravenous contrast. FINDINGS: There is no acute infarct on diffusion-weighted imaging. There is no intracranial hemorrhage on iron-sensitive imaging. No extra-axial collection or mass effect/herniation. Normal parenchymal signal characteristics. No hydrocephalus. The ventricles are normal in morphology and size. The major flow voids at the skull base are preserved. The midline structures are normal. The cerebellar tonsils are normally positioned. The craniocervical junction is normal. Marrow signal is within normal limits. The visualized soft tissues are without significant abnormality. Trace ethmoid sinus mucosal thickening. MR/MR head/brain wo con IMPRESSION: No acute infarct or other acute intracranial abnormality.
--- NOTE | ~2024-02-29 | CT_ITS ---
EXAMINATION: CT CERVICAL SPINE WITHOUT CONTRAST CLINICAL INFORMATION: Neck injury and pain COMPARISON: CT scan of cervical spine on 02/09/2021 TECHNIQUE: Multiple 2.0 mm axial images were obtained from base of skull to T1 levels without IV contrast enhancement. Sagittal and coronal 2.0 mm bone window images were reconstructed from axial image data. This CT examination was performed using dose optimization techniques as appropriate, variously including the following: *Automated exposure control *Adjustment of mA and/or kV according to patient size (this includes techniques or standardized protocols for targeted exams where dose is matched to indication/reason for exam; i.e. extremities or head) *Use of iterative reconstruction technique DLP: 198 mGy-cm FINDINGS: C1/C2: Bony structures are intact with normal alignment. There is no spinal stenosis. C2/C3: Bony structures are intact with normal alignment. There is no spinal stenosis. Bilateral C2/C3 neuroforamina are patent. Bilateral apophyseal joints are intact with normal alignment. C3/C4: Bony structures are intact with normal alignment. There is no spinal stenosis. Bilateral C3/C4 neuroforamina are patent. Bilateral apophyseal joints are intact with normal alignment. C4/C5: Bony structures are intact with normal alignment. There is no spinal stenosis. Bilateral C4/C5 neuroforamina are patent. Bilateral apophyseal joints are intact with normal alignment. C5/C6: Bony structures are intact with normal alignment. There is no spinal stenosis. Bilateral C5/C6 neuroforamina are patent. Bilateral apophyseal joints are intact with normal alignment. C6/C7: Bony structures are intact with normal alignment. There is no spinal stenosis. Bilateral C6/C7 neuroforamina are patent. Bilateral apophyseal joints are intact with normal alignment. C7/T1: Bony structures are intact with normal alignment. There is no spinal stenosis. Bilateral C7/T1 neuroforamina are patent. Bilateral apophyseal joints are intact with normal alignment. CT/CT cervical spine wo IV con IMPRESSION: 1. Unchanged Normal CT scan of the cervical spine. 2. No cervical fracture or dislocation is seen.
--- NOTE | ~2024-02-29 | CT_ITS ---
EXAMINATION: CT HEAD WITHOUT CONTRAST CLINICAL INFORMATION: Blunt head trauma without loss of consciousness, significant head injury and posttraumatic headache. COMPARISON: CT scan of brain on 02/09/2021 TECHNIQUE: Contiguous axial imaging was performed from the skull base to vertex without intravenous administration of contrast. This CT examination was performed using dose optimization techniques as appropriate, variously including the following: *Automated exposure control *Adjustment of mA and/or kV according to patient size (this includes techniques or standardized protocols for targeted exams where dose is matched to indication/reason for exam; i.e. extremities or head) *Use of iterative reconstruction technique DLP: 608 mGy-cm FINDINGS: Ventricles, sulci and cisterns are normal. There is no midline shift, no abnormal intra- or extra- axial fluid accumulation. Ko and white matter differentiation is normal. Bone window images show no evidence of skull fracture. CT/CT head/brain wo IV con IMPRESSION: 1. Unchanged Normal CT scan of the brain. 2. No intracranial hemorrhage or skull fracture is seen. 3. No evidence of space occupying lesion could be found. 4. The current plain CT scan of the brain shows no diagnostic evidence of acute cerebral infarction.
--- NOTE | ~2024-02-29 | XR_ITS ---
EXAMINATION: XR CHEST CLINICAL INFORMATION: Chest pain. COMPARISON: Chest radiograph dated 07/14/2023. TECHNIQUE: 2 views of the chest were obtained. FINDINGS: Heart size is normal. The lungs are clear. There is no pleural effusion or pneumothorax. There are surgical clips overlying the right axilla and right lower chest. XR/XR chest 2V IMPRESSION: No acute cardiopulmonary disease.
--- NOTE | 2024-02-29 09:55 | PC.NURSE ---
Pt presents to ED from home via EMS. [place]uran speaking primarily, healthcare financial analyst utilized. Pt reports Thursday morning at 0400AM she got up to use bathroom and she fell, pt is unsure how or why she fell. Event unwitnessed, lives alone and uses cane to ambulate. Pt reports she believes she hit her head and chest on ground, ?LOC, pt is unsure but says she does not remember events after well. Pt reports she got herself up and went back to her bedroom where she fell again. Pt reports she called her daughter who gave her Tylenol and an ice pack. Today when pt woke up she reports dizziness that worsens with movement. Pt is alert and oriented, confused on events surrounding the falls. Breathing even and unlabored, skin WNL. Pt collared by EMS. Pt reports left sided head pain radiating to neck (9/10), anterior chest wall pain (7/10) and bilat lower back pain (7/10). VSS, pt placed on bedside environmental monitoring specialist, NSR. Small bump noted to left side of forehead.
--- NOTE | 2024-02-29 10:41 | ED_ITS ---
HPI - Fall General Chief Complaint: Fall Stated Complaint: UNWIT FALL 4AM THURSDAY,HIT HEAD PER EMS Time Seen by Provider: 02/29/24 10:11 Source: patient and EMS Mode of arrival: EMS Limitations: no limitations History of Present Illness HPI Narrative: This is a 59 years old female presented to the emergency department after a fall on Thursday morning she does not know why she fell she was dizzy earlier. Then she fell a again when she went back to the bedroom. She is feeling dizzy now. Denies any shortness of breath any fever MD complaint: fall Onset (ago): day(s) (2) Fall from: standing Fall witnessed: no Place fall occurred: home Loss of consciousness: none Prolonged down time: no Symptoms prior to fall: dizziness Related Data Home Medications ?Medication ?Instructions ?Recorded ?Confirmed buspirone 15 mg tablet 15 mg PO TID 11/08/20 01/13/24 clonazepam 1 mg tablet 1 mg PO BID PRN Anxiety 11/08/20 01/13/24 olanzapine 20 mg tablet 20 mg PO BEDTIME 11/08/20 01/13/24 prazosin 2 mg capsule 4 mg PO BEDTIME 11/08/20 01/13/24 sertraline 100 mg tablet 200 mg PO DAILY 11/08/20 01/13/24 loratadine 10 mg tablet 10 mg PO DAILY 07/16/21 01/13/24 mirtazapine 45 mg tablet 45 mg PO BEDTIME 07/16/21 01/13/24 cyanocobalamin (vitamin B-12) 100 100 mcg PO DAILY 05/29/22 01/13/24 mcg tablet cholecalciferol (vitamin D3) 50 50 mcg PO DAILY 07/01/22 01/13/24 mcg (2,000 unit) capsule diclofenac sodium 1 % topical gel 2 g topical TID 07/29/22 01/13/24 amitriptyline 100 mg tablet 100 mg PO BEDTIME 10/22/22 01/13/24 acetaminophen 650 mg 650 mg PO ONCE PRN pain 12/05/22 01/13/24 tablet,extended release cyclobenzaprine 5 mg tablet 5 mg PO BID PRN pain 04/14/23 01/13/24 pregabalin 150 mg capsule 150 mg PO BID 04/14/23 01/13/24 ascorbate calcium (vitamin C) 500 500 mg PO MOWEFR 02/29/24 mg tablet ferrous sulfate 325 mg (65 mg 325 mg PO MOWEFR 02/29/24 iron) tablet fluticasone propionate 115 2 puff inhalation BID 02/29/24 mcg-salmeterol 21 mcg/actuation HFA inhaler (Advair HFA) sumatriptan succinate 100 mg tablet 100 mg PO DAILY MRX1 PRN migraine 02/29/24 headache triamcinolone acetonide 0.1 % 1 appl topical BID 02/29/24 topical cream Previous Rx's ?Medication ?Instructions ?Recorded albuterol sulfate 90 mcg/actuation 2 puff inhalation Q6H PRN for 08/06/22 aerosol inhaler (ProAir HFA) wheezing 30 days #8.5 ea akpnvgfgxd-omdzjfxslnwrk-wjxzmcbn 1 tab PO Q6H PRN Headache #30 tabs 08/09/22 50 mg-325 mg-40 mg tablet hydroxyzine HCl 25 mg tablet 25 mg PO BID PRN anxiety #7 tabs 02/15/23 dicyclomine 20 mg tablet 40 mg (2 x 20 mg) PO QID #240 tabs 08/13/23 famotidine 40 mg tablet 40 mg PO BEDTIME #90 tabs 08/13/23 omeprazole 20 mg capsule,delayed 20 mg PO DAILY 30 days #30 caps 08/13/23 release psyllium husk 0.4 gram capsule 0.4 g PO BID #60 caps 08/13/23 (Fiber (psyllium husk)) sennosides 8.6 mg tablet (senna) 17.2 mg (2 x 8.6 mg) PO BEDTIME 08/13/23 #180 tabs melatonin 5 mg tablet 10 mg (2 x 5 mg) PO BEDTIME PRN 09/14/23 Sleep 90 days #90 tabs fluticasone fur. 200 mcg-umeclid 1 inh inhalation Q24H 30 days #1 ea 09/17/23 62.5 mcg-vilant 25 mcg inhalat.powder (Trelegy Ellipta) docusate sodium 100 mg capsule 100 mg PO BID PRN constipation 30 01/13/24 (Colace) days #60 caps ropinirole 0.25 mg tablet 0.5 mg (2 x 0.25 mg) PO TID 30 01/17/24 days #180 tabs naproxen 500 mg tablet 500 mg PO BID #60 tabs 01/18/24 Allergies Allergy/AdvReac Type Severity Reaction Status Date / Time codeine [CODEINE] Allergy Intermediate DIZZY/NAUSEA, Verified 02/29/24 09:48 nausea/vomiting escitalopram [From LEXAPRO] Allergy Intermediate ? NAUSEA Verified 01/18/24 09:42 meperidine [MEPERIDINE] Allergy Intermediate NAUSEA Verified 01/18/24 09:42 morphine [MORPHINE] Allergy Intermediate PALPITATIONS, Verified 01/18/24 09:42 palpitation oxycodone [OXYCODONE] Allergy Intermediate PALPATATIONS, Verified 01/18/24 09:42 palpitations tramadol Allergy Unknown dizziness, Verified 01/18/24 09:42 nausea acetaminophen [From Percocet] Allergy Shakiness Verified 01/18/24 09:42 Review of Systems 2 Constitutional: Constitutional: Reports no additional constitutional complaints ENT: Reports system reviewed and no additional complaints, except as documented Cardiovascular: Cardiovascular: Reports no additional cardiovascular complaints Respiratory: Respiratory: Reports no additional respiratory complaints Neurologic: Reports Abnormal speech present [facility] Past Medical History Attestation statement: The following information was validated with the patient. Source: unable to obtain Medical History Migraine Anemia Diarrhea Depression Somatization disorder Migraine equivalent syndrome Anxiety Periodontal disease Primary osteoarthritis of right hand Fibromyalgia Surgical History (Reviewed 01/13/24 @ 11:23 by Deloris Flores [facility]) History of esophagogastroduodenoscopy (EGD) History of lumpectomy Hx of section Hx of shoulder surgery Hx of colonoscopy Family History Family History Mother HTN (hypertension) Sister Breast cancer Bone cancer Colon polyps Sister Osteoporosis Hypercholesteremia Colon polyps Social History Social History Household Members: Children Housing: Apartment Are you a primary patient care technician to a significant other at home: No Do you presently have visiting nurse or other home services: Yes Alcohol intake: never Patient Tobacco Use Status: Former Tobacco user Years Smoked: 3 Smoked in Last 30 Days: No Use of substances other than those prescribed or required for medical reasons: No Advance Directives: No Advance Directives Information Provided: No service: No Current occupational status: disabled 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 Physical Exam 2 Vital Signs: Vital Signs: Last Vital Signs Temp 98.6 F 02/29/24 15:07 Pulse 83 02/29/24 16:00 Resp 16 02/29/24 15:07 BP 98/62 02/29/24 16:00 Pulse Ox 97 02/29/24 15:07 O2 Del Method Room Air 02/29/24 15:07 BMI result Body Mass Index 19.4 Const: General: cooperative and healthy appearing Nutritional Appearance: a verage body habitus Orientation/consciousness: patient oriented x3 L imitations: no limitations HEENT: Head: Yes normal to inspection General nose exam: Normal external nose present Face and sinus: Yes normal facial exam Teeth and gingiva: d entition normal Neck: Neck: Yes normal visual inspection Thyroid: Thyroid normal Chest: Chest palpation & inspection: normal inspection of the chest Resp: Effort & Inspection: normal respiratory effort Auscultation: clear to auscultation bilaterally Cardio: Jugular venous distension: no JVD Rate: regular rate Rhythm: r egular rhythm GI: Inspection: Yes normal to inspection Palpation (GI): Soft to palpation Percussion: Yes normal to percussion Auscultation: normal bowel sounds Skin: General skin exam: no rashes or lesions noted Rashes: no rashes N ails: normal Neuro: General: patient oriented x3 Cranial nerves: Yes CN's II-XII intact bilaterally Cognition (Neuro): normal cognition Speech: Abnormal speech present Medications Administered Discontinued Medications Generic Name Dose Route Start Last Admin Trade Name Freq PRN Reason Stop Dose Admin Ibuprofen 600 mg 02/29/24 13:31 02/29/24 13:36 Ibuprofen 600 Mg Tablet PO 02/29/24 13:32 600 mg ONCE ONE Administration Medical Decision Making Medical Decision Making [facility] Narrative: Patient presented after a fall she was complaining of dizziness will obtained EKG labs imaging of the brain Differential Diagnosis Differential Diagnoses: The differential diagnosis associated with the presentation includes Vertigo, dehydration, CVA Lab Data [facility] Lab Attestation statement: I reviewed the patient's lab results. 02/29/24 11:31 02/29/24 11:31 Labs: Lab Results 02/29/24 Range/Units 11:31 WBC 4.7 L (4.8-10.8) X10*3/uL RBC 4.17 L (4.20-5.50) X10*6/uL Hgb 12.9 (12.0-16.0) g/dl Hct 38.2 (37.0-47.0) % MCV 91.6 (80.0-98.0) fL MCH 30.9 (27.0-33.0) pg MCHC 33.8 (31.0-35.0) g/dl RDW 13.6 (11.0-16.0) % Plt Count 259 (160-400) X10*3/uL MPV 8.7 L (9.4-12.3) fL Immature Gran % (Auto) 0.2 (0.0-0.4) % Neut % (Auto) 67.1 (45-73) % Lymph % (Auto) 26.2 (20-40) % [place] % (Auto) 5.7 (2-11) % Eos % (Auto) 0.4 (0-4) % Baso % (Auto) 0.4 (0-2) % Lymph # (Auto) 1.2 (1.2-4.9) X10*3/uL [place] # (Auto) 0.3 (0.1-1.2) X10*3/uL Eos # (Auto) 0.0 (0.0-0.4) X10*3/uL Baso # (Auto) 0.0 (0.0-0.2) X10*3/uL Abs Immat Gran (auto) 0.01 (0.00-0.03) X10*3/uL Absolute Neuts (auto) 3.2 (2.0-8.3) x10*3/uL Absolute Nucleated RBC 0.000 (0.0-0.012) X10*3/uL Nucleated RBC % (auto) 0.0 (0.0-0.2) /100WBC Sodium 142 (135-145) mmol/L Potassium 4.6 (3.3-5.1) mmol/L Chloride 106 (96-108) mmol/L Carbon Dioxide 32 H (22-29) mmol/L Anion Gap 9 L (12-20) BUN 13 (9-16) mg/dL Creatinine 0.77 (0.5-1.4) mg/dL Estim Creat Clear Calc 58.1 Estimated GFR > 60 Random Glucose 69 (60-115) mg/dL Calcium 9.8 (8.4-10.2) mg/dL Total Bilirubin 0.3 (0.0-1.0) mg/dL AST 18 (5-31) U/L ALT 15 (0-31) U/L Alkaline Phosphatase 104 (39-117) U/L Troponin I High Sens < 2.7 (<3.5-17.0) ng/L Total Protein 6.8 (6.5-8.0) g/dL Albumin 4.2 (3.5-5.0) g/dL Independent Interpretation I performed an independent interpretation of an: EKG (EKG shows sinus rhythm rate [address]-T changes) Independent Historian Clinical information obtained from an independent historian. History obtained from or confirmed by: EMS External Record Review External record reviewed: Inpatient record Discharge Plan Discharge Clinical Impression: Syncope Qualifiers: Encounter type: initial encounter Patient Disposition: Admitted As Inpatient Print Language: Mohawk
[2024-02-29 11:36] LABS: MANUAL DIFF FLAG NO
[2024-02-29 11:38] LABS: Basophils Percent Auto 0.4 % (0-2); Eosinophils Percent Auto 0.4 % (0-4); Hematocrit 38.2 % (37.0-47.0); Hemoglobin 12.9 g/dl (12.0-16.0); Imm Gran Abs Auto 0.01 X10*3/uL (0.00-0.03); Imm Gran Pct Auto 0.2 % (0.0-0.4); Lymphocytes Absolute Auto 1.2 X10*3/uL (1.2-4.9); Lymphocytes Percent Auto 26.2 % (20-40); Mean Corpuscular HGB Conc 33.8 g/dl (31.0-35.0); Mean Corpuscular Hemoglobin 30.9 pg (27.0-33.0); Mean Corpuscular Volume 91.6 fL (80.0-98.0); Mean Platelet Volume 8.7 fL (9.4-12.3); Monocytes Absolute Auto 0.3 X10*3/uL (0.1-1.2); Monocytes Percent Auto 5.7 % (2-11); Neutrophils Absolute Auto 3.2 x10*3/uL (2.0-8.3); Neutrophils Percent Auto 67.1 % (45-73); Platelet Count 259 X10*3/uL (160-400); Red Blood Count 4.17 X10*6/uL (4.20-5.50); Red Cell Distribution Width 13.6 % (11.0-16.0); White Blood Count 4.7 X10*3/uL (4.8-10.8)
[2024-02-29 11:59] LABS: Alanine Aminotransferase 15 U/L (0-31); Albumin Level 4.2 g/dL (3.5-5.0); Alkaline Phosphatase 104 U/L (39-117); Anion Gap 9 (12-20); Aspartate Amino Transferase 18 U/L (5-31); Bilirubin Total 0.3 mg/dL (0.0-1.0); Blood Urea Nitrogen 13 mg/dL (9-16); Calcium 9.8 mg/dL (8.4-10.2); Carbon Dioxide 32 mmol/L (22-29); Chloride 106 mmol/L (96-108); Creatinine Clr Calc Pharmacy 58.1; Estimated Glomerular Filt Rate > 60; Glucose Random 69 mg/dL (60-115); Potassium 4.6 mmol/L (3.3-5.1); Sodium 142 mmol/L (135-145); Total Protein 6.8 g/dL (6.5-8.0)
[2024-02-29 12:07] LABS: Troponin-I High Sensitivity < 2.7 ng/L (<3.5-17.0)
[2024-02-29] MEDS: Ibuprofen 600 MG TABLET PO (13:36)
--- NOTE | 2024-02-29 16:47 | PHA.MEDREC ---
Pharmacy Consult ? Medication Reconciliation Pharmacy has completed the medication reconciliation. Patient had list from TORI Bowden, DanielleD
--- NOTE | 2024-02-29 17:28 | P.HPHOSP_ITS ---
History of Present Illness Date of Service: 02/29/24 Attending physician on admission: Luis Miguel Jamil Chief Complaint: syncope, vertigo 57-year-old female with past medical history of fibromyalgia, GERD, anxiety and depression, osteoarthritis, history of right breast cancer status post lumpectomy, IBS, somatization disorder presents to the hospital following multiple syncopal episodes yesterday and persistent vertigo. She states around 4am yesterday she feels she may have passed out twice but does not recall much of the episode. Feels she went to the bathroom, stood and believes she fell in the bathroom but then woke up on her bedroom floor. This was unwitnessed. She does nto recall any prodrome including lightheadedness, palpitations, chest pain, dyspnea, vision changes. She states she has had similar episodes in the past, again unwitnessed. Her daughter who is at bedside states she is hurt her falls but has never witnessed them. Both deny any known history of seizure activity. She states all day today, she has been having significant room spinning dizziness with any head movements with associated nausea but no vomiting. She states her gait is unstable and has been ambulating with a cane. Upon standing she experiences intolerable dizziness but has not fallen today. Denies any fevers, chills, abdominal pain, urinary symptoms, diarrhea, shortness breath, cough, lightheadedness, palpitations, chest pain. She is reporting mild heartburn but otherwise has no complaints at this time. On arrival, vital signs stable. Orthostatic vital signs negative. Hematology studies unremarkable. Renal function normal, electrolyte levels normal. Troponin undetectable. Head CT negative for any acute intracranial abnormality. Cervical spine CT negative for any acute osseous abnormality. Chest x-ray negative. EKG shows NSR, rate [address]/T-wave abnormality. In the ED has been given 600 mg ibuprofen. Review of Systems 2 Review of Systems: General: No fevers, malaise, unintentional weight loss HEENT: No blurred vision, diplopia. No sore throat, nasal congestion, rhinorrhea, sinus pain, ear pain Cardiovascular: No chest pain, palpitations, or leg edema Respiratory: No shortness of breath, wheezing, cough GI: No abdominal pain, nausea, vomiting, diarrhea, constipation, melena, hematochezia : No dysuria, hematuria, increased urinary frequency, decreased urinary output MSK: No myalgia, back pain Neuro: No headaches, weakness, paresthesias. +vertigo, +syncope Skin: No rashes or lesions PMFSH Medical History Migraine Anemia Diarrhea Depression Somatization disorder Migraine equivalent syndrome Anxiety Periodontal disease Primary osteoarthritis of right hand Fibromyalgia Family History Mother HTN (hypertension) Sister Breast cancer Bone cancer Colon polyps Sister Osteoporosis Hypercholesteremia Colon polyps Surgical History History of esophagogastroduodenoscopy (EGD) History of lumpectomy Hx of section Hx of shoulder surgery Hx of colonoscopy Social History Household Members: Children Housing: Apartment Are you a primary critical care nurse to a significant other at home: No Do you presently have visiting nurse or other home services: Yes Alcohol intake: never Patient Tobacco Use Status: Former Tobacco user Years Smoked: 3 Smoked in Last 30 Days: No Use of substances other than those prescribed or required for medical reasons: No Advance Directives: No Advance Directives Information Provided: No service: No Current occupational status: disabled 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 NAUSEA Verified 01/18/24 09:42 meperidine [MEPERIDINE] Allergy Intermediate NAUSEA Verified 01/18/24 09:42 morphine [MORPHINE] Allergy Intermediate PALPITATIONS, Verified 01/18/24 09:42 palpitation oxycodone [OXYCODONE] Allergy Intermediate PALPATATIONS, Verified 01/18/24 09:42 palpitations tramadol Allergy Unknown dizziness, Verified 01/18/24 09:42 nausea acetaminophen [From Percocet] Allergy Shakiness Verified 01/18/24 09:42 Active Medications: Current Medications Acetaminophen (Acetaminophen 325 Mg Tablet) 650 mg PO Q6H PRN PRN Reason: Pain, Mild (Pain Scale 1-3) Enoxaparin Sodium (Enoxaparin Sodium 40 Mg/0.4 Ml Syringe) 40 mg SUBCUT Q24H [place] Ondansetron HCl (Ondansetron Hcl 4 Mg/2 Ml Vial) 4 mg IVPUSH Q8H PRN PRN Reason: Nausea and Vomiting Senna (Sennosides 8.6 Mg Tablet) 17.2 mg PO BEDTIME PRN PRN Reason: Constipation Sodium Chloride (0.9 % Sodium Chloride Flush 3 Ml Syringe) 3 ml IVFLUSH QSHIFT [facility] Home Medications ?Medication ?Instructions ?Recorded ?Confirmed ?Last Taken ?Type buspirone 15 mg tablet 15 mg PO TID 11/08/20 02/29/24 Unknown History clonazepam 1 mg tablet 1 mg PO BID Anxiety 11/08/20 02/29/24 Unknown History olanzapine 20 mg tablet 20 mg PO BEDTIME 11/08/20 02/29/24 Unknown History prazosin 2 mg capsule 4 mg PO BEDTIME 11/08/20 02/29/24 Unknown History sertraline 100 mg tablet 200 mg PO DAILY 11/08/20 02/29/24 Unknown History loratadine 10 mg tablet 10 mg PO DAILY 07/16/21 02/29/24 Unknown History mirtazapine 45 mg tablet 45 mg PO BEDTIME 07/16/21 02/29/24 Unknown History cyanocobalamin (vitamin B-12) 100 100 mcg PO DAILY 05/29/22 02/29/24 Unknown History mcg tablet cholecalciferol (vitamin D3) 50 50 mcg PO DAILY 07/01/22 02/29/24 Unknown History mcg (2,000 unit) capsule diclofenac sodium 1 % topical gel 2 g topical TID PRN Pain 07/29/22 02/29/24 Unknown History amitriptyline 100 mg tablet 100 mg PO BEDTIME 10/22/22 02/29/24 Unknown History pregabalin 150 mg capsule 150 mg PO BID 04/14/23 02/29/24 Unknown History acetaminophen 500 mg tablet 500 mg PO Q4H PRN Pain 02/29/24 02/29/24 Unknown History ascorbate calcium (vitamin C) 500 500 mg PO MOWEFR 02/29/24 02/29/24 Unknown History mg tablet ferrous sulfate 325 mg (65 mg 325 mg PO MOWEFR 02/29/24 02/29/24 Unknown History iron) tablet fluticasone propionate 115 2 puff inhalation BID 02/29/24 02/29/24 Unknown History mcg-salmeterol 21 mcg/actuation HFA inhaler (Advair HFA) melatonin 5 mg tablet 10 mg PO BEDTIME Sleep 02/29/24 02/29/24 Unknown History omeprazole 20 mg capsule,delayed 20 mg PO DAILY PRN GI UPSET 02/29/24 02/29/24 Unknown History release sennosides 8.6 mg tablet (senna) 17.2 mg PO BEDTIME PRN Constipation 02/29/24 02/29/24 Unknown History sumatriptan succinate 100 mg tablet 100 mg PO DAILY MRX1 PRN migraine 02/29/24 02/29/24 Unknown History headache Physical Exam 2 Vital Signs and Narrative: Vital Signs: Last Vital Signs Temp 98.6 F 02/29/24 15:07 Pulse 83 02/29/24 16:00 Resp 16 02/29/24 15:07 BP 98/62 02/29/24 16:00 Pulse Ox 97 02/29/24 15:07 O2 Del Method Room Air 02/29/24 15:07 BMI result Body Mass Index 19.4 Constitutional - Awake and Alert, No apparent distress Eyes - PERRLA, EOMI Cardiovascular - S1S2, RRR, No edema Respiratory - Normal lung expansion, Normal respiratory effort, No respiratory distress, CTA bilaterally Gastrointestinal - NT / ND; +BS; No rebound or guarding Extremities - no calf tenderness bilaterally, no swelling Skin - Warm/Dry Neurological - Alert & oriented x3, nystagmus in all direction with reported diplopia otherwise CN II-XII in tact, 5/5 strength BUE and BLE. Positive romberg Psychological - Appropriate affect Results Labs 02/29/24 11:31 02/29/24 11:31 Labs: Laboratory Results - last 24 hr 02/29/24 11:31 MCV 91.6 MCH 30.9 MCHC 33.8 RDW 13.6 Plt Count 259 MPV 8.7 L Immature Gran % (Auto) 0.2 Neut % (Auto) 67.1 Lymph % (Auto) 26.2 Hoke % (Auto) 5.7 Eos % (Auto) 0.4 Baso % (Auto) 0.4 Lymph # (Auto) 1.2 Hoke # (Auto) 0.3 Eos # (Auto) 0.0 Baso # (Auto) 0.0 Abs Immat Gran (auto) 0.01 Absolute Neuts (auto) 3.2 Absolute Nucleated RBC 0.000 Nucleated RBC % (auto) 0.0 Anion Gap 9 L Estim Creat Clear Calc 58.1 Estimated GFR > 60 Random Glucose 69 Calcium 9.8 Total Bilirubin 0.3 AST 18 ALT 15 Alkaline Phosphatase 104 Troponin I High Sens < 2.7 Total Protein 6.8 Albumin 4.2 Imaging Radiologist's Impressions: Impressions Cervical Spine CT 02/29/24 11:29 IMPRESSION: 1. Unchanged Normal CT scan of the cervical spine. 2. No cervical fracture or dislocation is seen. Head CT 02/29/24 11:29 IMPRESSION: 1. Unchanged Normal CT scan of the brain. 2. No intracranial hemorrhage or skull fracture is seen. 3. No evidence of space occupying lesion could be found. 4. The current plain CT scan of the brain shows no diagnostic evidence of acute cerebral infarction. Chest X-Ray 02/29/24 13:50 IMPRESSION: No acute cardiopulmonary disease. Assessment and Plan (1) Syncope: Qualifiers: Encounter type: initial encounter Status: Acute (2) Vertigo: Status: Acute Plan 57-year-old female with past medical history of fibromyalgia, GERD, anxiety and depression, osteoarthritis, history of right breast cancer status post lumpectomy, IBS, somatization disorder presents to the hospital following multiple syncopal episodes yesterday and persistent vertigo. She will be admitted for further management and evaluation of recurrent syncope with persistent vertigo. #Syncope- suspect neurologic in origin -orthostatic vs negative -head CT negative for any acute intracranial abnormality. -check MRI brain -EEG ordered -neurology consult -we will continue telemetry monitoring # persistent vertigo -with associated reported syncope -positive Romberg, nystagmus -MRI brain ordered -trial meclizine -neurology consult # mood disorder/somatization disorder/fibromyalgia -continue home meds but will have Psychiatry evaluate for polypharmacy DVT prophylaxis-Lovenox Full code Patient requires inpatient stay at least 2 midnights for management of recurrent syncope with persistent vertigo requiring expert consultation, cardiac monitoring, further imaging with MRI of the brain and close observation Quality Stroke Does the patient have a stroke diagnosis?: No VTE Prior VTE?: No VTE Risk Level:: Medical - moderate - high VTE Device Contraindication: Treatment Not Indicated VTE Drug Contraindication: N/A - Med Ordered
[2024-02-29] MEDS: Enoxaparin Sodium 40 MG/0.4 ML SYRINGE SUBCUT (18:21)
[2024-02-29] MEDS: Ferrous Sulfate 324 MG TABLET.DR PO (18:21)
[2024-02-29] MEDS: Ascorbic Acid 500 MG TABLET PO (18:21)
--- NOTE | 2024-02-29 20:25 | MHC.EDTECH ---
This tech took over care of patient at 1900,hourly rounds and vitals completed, Belongings list completed and copy placed in chart,patient has 210.00 BEBA Andrade witnessed,Patient refused safe
[2024-02-29] MEDS: Amitriptyline HCl 50 MG TABLET 100 MG PO (22:20)
[2024-02-29] MEDS: busPIRone HCl 5 MG TABLET 15 MG PO (22:20)
[2024-02-29] MEDS: Dicyclomine HCl 10 MG CAPSULE 40 MG PO (22:21)
[2024-02-29] MEDS: clonazePAM 1 MG TABLET PO (22:21)
[2024-02-29] MEDS: Melatonin 3 MG TABLET 9 MG PO (22:24)
[2024-02-29] MEDS: Mirtazapine 15 MG TABLET 45 MG PO (22:25)
[2024-02-29] MEDS: Prazosin HCL 1 MG CAPSULE 4 MG PO (22:25)
[2024-02-29] MEDS: Pregabalin 150 MG CAPSULE PO (22:27)
[2024-02-29] MEDS: rOPINIRole HCL 0.5 MG TABLET PO (22:27)
[2024-02-29] MEDS: NaPROXEN 500 MG TABLET PO (22:27)
[2024-02-29] MEDS: OLANZapine 10 MG TABLET 20 MG PO (22:28)
[2024-02-29] MEDS: Meclizine HCl 12.5 MG TABLET PO (22:44)
[2024-03-01] VITALS (7 sets, daily range): BP systolic 95–101; BP diastolic 51–56; PULSE 64–92; RESP 16–18; TEMP 36.3–36.7; O2SAT 95–97
[2024-03-01 06:46] LABS: MANUAL DIFF FLAG NO
[2024-03-01 06:49] LABS: Basophils Percent Auto 0.4 % (0-2); Eosinophils Absolute Auto 0.1 X10*3/uL (0.0-0.4); Eosinophils Percent Auto 1.3 % (0-4); Hematocrit 37.8 % (37.0-47.0); Hemoglobin 12.8 g/dl (12.0-16.0); Imm Gran Abs Auto 0.01 X10*3/uL (0.00-0.03); Imm Gran Pct Auto 0.2 % (0.0-0.4); Lymphocytes Absolute Auto 1.5 X10*3/uL (1.2-4.9); Lymphocytes Percent Auto 33.8 % (20-40); Mean Corpuscular HGB Conc 33.9 g/dl (31.0-35.0); Mean Corpuscular Hemoglobin 30.9 pg (27.0-33.0); Mean Corpuscular Volume 91.3 fL (80.0-98.0); Mean Platelet Volume 8.7 fL (9.4-12.3); Monocytes Absolute Auto 0.3 X10*3/uL (0.1-1.2); Monocytes Percent Auto 6.8 % (2-11); Neutrophils Absolute Auto 2.6 x10*3/uL (2.0-8.3); Neutrophils Percent Auto 57.5 % (45-73); Platelet Count 256 X10*3/uL (160-400); Red Blood Count 4.14 X10*6/uL (4.20-5.50); Red Cell Distribution Width 13.4 % (11.0-16.0); White Blood Count 4.5 X10*3/uL (4.8-10.8)
[2024-03-01 07:12] LABS: Anion Gap 13 (12-20); Blood Urea Nitrogen 15 mg/dL (9-16); Calcium 9.4 mg/dL (8.4-10.2); Carbon Dioxide 25 mmol/L (22-29); Chloride 107 mmol/L (96-108); Creatinine Clr Calc Pharmacy 62.1; Estimated Glomerular Filt Rate > 60; Glucose Random 76 mg/dL (60-115); Potassium 3.8 mmol/L (3.3-5.1); Sodium 141 mmol/L (135-145)
[2024-03-01] MEDS: Fluticasone/Vilanterol 100/25 BLST.W.DEV 1 PUFF INHALE (08:25)
[2024-03-01] MEDS: Acetaminophen 325 MG TABLET 650 MG PO (09:25)
[2024-03-01] MEDS: Dicyclomine HCl 10 MG CAPSULE 40 MG PO ×4 (09:26→21:54)
[2024-03-01] MEDS: busPIRone HCl 5 MG TABLET 15 MG PO ×3 (09:26→21:53)
[2024-03-01] MEDS: NaPROXEN 500 MG TABLET PO (09:26)
[2024-03-01] MEDS: Pregabalin 150 MG CAPSULE PO ×2 (09:26→21:55)
[2024-03-01] MEDS: Sertraline HCL 100 MG TABLET 200 MG PO (09:26)
[2024-03-01] MEDS: Cyanocobalamin (Vitamin B-12) 100 MCG TABLET PO (09:26)
[2024-03-01] MEDS: rOPINIRole HCL 0.5 MG TABLET PO ×3 (09:26→21:56)
[2024-03-01] MEDS: clonazePAM 1 MG TABLET PO (09:26)
[2024-03-01] MEDS: Cholecalciferol (Vitamin D3) 25 MCG TABLET 50 MCG PO (09:27)
[2024-03-01] MEDS: 0.9 % Sodium Chloride Flush 3 ML SYRINGE IVFLUSH ×3 (09:27→22:07)
[2024-03-01] MEDS: Loratadine 10 MG TABLET PO (09:27)
[2024-03-01] MEDS: polyethylene glycoL 3350 17 GM POWD.PACK PO (10:18)
[2024-03-01] MEDS: calcium polycarbophiL TABLET 1 TAB PO (12:24)
--- NOTE | 2024-03-01 12:47 | HO.PM.IMPN ---
Subjective Subjective Date of Service: 03/01/24 Interval History: no further syncopal episodes vertigo improved Review of Systems Review of Systems: Yes all other systems are reviewed and are negative Physical Exam Vital Signs: Vital Signs: Last Vital Signs Temp 98.0 F 03/01/24 07:46 Pulse 76 03/01/24 08:28 Resp 18 03/01/24 08:28 BP 101/56 L 03/01/24 07:46 Pulse Ox 96 03/01/24 07:46 O2 Del Method Room Air 03/01/24 07:46 BMI result Body Mass Index 19.4 Gen: in no acute distress HEENT: sclera anicteric, moist mucus membranes Neck: supple Lungs: clear to auscultation bilaterally Heart: regular rate and rhythm, no murmurs Abd: soft, non-tender, non-distended Ext: no edema Skin: warm/well-perfused Neuro: alert and oriented x3, no focal findings Psych: appropriate affect Objective Data Active Medications Acetaminophen (Acetaminophen 325 Mg Tablet) 650 mg PO Q6H PRN PRN Reason: Pain, Mild (Pain Scale 1-3) Last Admin: 03/01/24 09:25 Dose: 650 mg Documented By: ALEKS Albuterol Sulfate (Albuterol Sulfate 90 Mcg 8 Gm Inhaler) 2 puff INHALE Q6H PRN PRN Reason: for wheezing Amitriptyline HCl (Amitriptyline Hcl 50 Mg Tablet) 100 mg PO BEDTIME REPLACED BY [facility] Last Admin: 02/29/24 22:20 Dose: 100 mg Documented By: COREY Artificial Tears (Artificial Tears 15 Ml Drops) 2 drop EYE-LEFT Q4H PRN PRN Reason: irritation Ascorbic Acid (Ascorbic Acid 500 Mg Tablet) 500 mg PO MOWEFR REPLACED BY [facility] Last Admin: 02/29/24 18:21 Dose: 500 mg Documented By: MADDENRyan Buspirone HCl (Buspirone Hcl 5 Mg Tablet) 15 mg PO TID REPLACED BY [facility] Last Admin: 03/01/24 09:26 Dose: 15 mg Documented By: ALEKS Calcium Polycarbophil (Calcium Polycarbophil Tablet) 1 tab PO DAILY REPLACED BY [facility] Last Admin: 03/01/24 12:24 Dose: 1 tab Documented By: ALEKS Clonazepam (Clonazepam 1 Mg Tablet) 1 mg PO BID REPLACED BY [facility] Last Admin: 03/01/24 09:26 Dose: 1 mg Documented By: ALEKS Cyanocobalamin (Cyanocobalamin (Vitamin B-12) 100 Mcg Tablet) 100 mcg PO DAILY REPLACED BY [facility] Last Admin: 03/01/24 09:26 Dose: 100 mcg Documented By: ALEKS Dicyclomine HCl (Dicyclomine Hcl 10 Mg Capsule) 40 mg PO QID REPLACED BY [facility] Last Admin: 03/01/24 12:24 Dose: 40 mg Documented By: ALEKS Docusate Sodium (Docusate Sodium 100 Mg Capsule) 100 mg PO BID PRN PRN Reason: constipation Enoxaparin Sodium (Enoxaparin Sodium 40 Mg/0.4 Ml Syringe) 40 mg SUBCUT Q24H REPLACED BY [facility] Last Admin: 02/29/24 18:21 Dose: 40 mg Documented By: LEA Ferrous Sulfate (Ferrous Sulfate 324 Mg Tablet.Dr) 324 mg PO MOWEFR REPLACED BY [facility] Last Admin: 02/29/24 18:21 Dose: 324 mg Documented By: LEA Fluticasone/Vilanterol (Fluticasone/Vilanterol 100/25 Blst.W.Dev) 1 puff INHALE RDAILY REPLACED BY [facility] Last Admin: 03/01/24 08:25 Dose: 1 puff Documented By: BRESSARAH Hydroxyzine HCl (Hydroxyzine Hcl 25 Mg Tablet) 25 mg PO BID PRN PRN Reason: anxiety Loratadine (Loratadine 10 Mg Tablet) 10 mg PO DAILY REPLACED BY [facility] Last Admin: 03/01/24 09:27 Dose: 10 mg Documented By: ALEKS Meclizine HCl (Meclizine Hcl 12.5 Mg Tablet) 12.5 mg PO Q8H PRN PRN Reason: Vertigo Last Admin: 02/29/24 22:44 Dose: 12.5 mg Documented By: COREY Melatonin (Melatonin 3 Mg Tablet) 9 mg PO BEDTIME REPLACED BY [facility] Last Admin: 02/29/24 22:24 Dose: 9 mg Documented By: COREY Mirtazapine (Mirtazapine 15 Mg Tablet) 45 mg PO BEDTIME REPLACED BY [facility] Last Admin: 02/29/24 22:25 Dose: 45 mg Documented By: COREY Naproxen (Naproxen 500 Mg Tablet) 500 mg PO BID REPLACED BY [facility] Last Admin: 03/01/24 09:26 Dose: 500 mg Documented By: ALEKS Olanzapine (Olanzapine 10 Mg Tablet) 20 mg PO BEDTIME REPLACED BY [facility] Last Admin: 02/29/24 22:28 Dose: 20 mg Documented By: COREY Omeprazole (Omeprazole 20 Mg Capsule.Dr) 20 mg PO DAILY PRN PRN Reason: GI UPSET Ondansetron HCl (Ondansetron Hcl 4 Mg/2 Ml Vial) 4 mg IVPUSH Q8H PRN PRN Reason: Nausea and Vomiting Polyethylene Glycol (Polyethylene Glycol 3350 17 Gm Powd.Pack) 17 gm PO DAILY REPLACED BY [facility] Last Admin: 03/01/24 10:18 Dose: 17 gm Documented By: ALEKS Prazosin HCl (Prazosin Hcl 1 Mg Capsule) 4 mg PO BEDTIME REPLACED BY [facility]; Protocol Last Admin: 02/29/24 22:25 Dose: 4 mg Documented By: COREY Pregabalin (Pregabalin 150 Mg Capsule) 150 mg PO BID REPLACED BY [facility] Last Admin: 03/01/24 09:26 Dose: 150 mg Documented By: ALEKS Ropinirole HCl (Ropinirole Hcl 0.5 Mg Tablet) 0.5 mg PO TID REPLACED BY [facility] Last Admin: 03/01/24 09:26 Dose: 0.5 mg Documented By: ALEKS Senna (Sennosides 8.6 Mg Tablet) 17.2 mg PO BEDTIME PRN PRN Reason: Constipation Senna (Sennosides 8.6 Mg Tablet) 17.2 mg PO BEDTIME PRN PRN Reason: Constipation Sertraline HCl (Sertraline Hcl 100 Mg Tablet) 200 mg PO DAILY REPLACED BY [facility] Last Admin: 03/01/24 09:26 Dose: 200 mg Documented By: ALEKS Sodium Chloride (0.9 % Sodium Chloride Flush 3 Ml Syringe) 3 ml IVFLUSH QSHIFT REPLACED BY [facility] Last Admin: 03/01/24 09:27 Dose: 3 ml Documented By: ALEKS Sumatriptan Succinate (Sumatriptan Succinate 100 Mg Tablet) 100 mg PO DAILY MRX1 PRN PRN Reason: migraine headache Vitamin D (Cholecalciferol (Vitamin D3) 25 Mcg Tablet) 50 mcg PO DAILY REPLACED BY [facility] Last Admin: 03/01/24 09:27 Dose: 50 mcg Documented By: ALEKS Labs 03/01/24 06:36 03/01/24 06:36 Labs: Laboratory Results - last 24 hr 03/01/24 06:36 MCV 91.3 MCH 30.9 MCHC 33.9 RDW 13.4 Plt Count 256 MPV 8.7 L Immature Gran % (Auto) 0.2 Neut % (Auto) 57.5 Lymph % (Auto) 33.8 Dickenson % (Auto) 6.8 Eos % (Auto) 1.3 Baso % (Auto) 0.4 Lymph # (Auto) 1.5 Dickenson # (Auto) 0.3 Eos # (Auto) 0.1 Baso # (Auto) 0.0 Abs Immat Gran (auto) 0.01 Absolute Neuts (auto) 2.6 Absolute Nucleated RBC 0.000 Nucleated RBC % (auto) 0.0 Anion Gap 13 Estim Creat Clear Calc 62.1 Estimated GFR > 60 Random Glucose 76 Calcium 9.[address] 02/29/24 11:29 IMPRESSION: 1. Unchanged Normal CT scan of the cervical spine. 2. No cervical fracture or dislocation is seen. Head CT 02/29/24 11:29 IMPRESSION: 1. Unchanged Normal CT scan of the brain. 2. No intracranial hemorrhage or skull fracture is seen. 3. No evidence of space occupying lesion could be found. 4. The current plain CT scan of the brain shows no diagnostic evidence of acute cerebral infarction. Chest X-Ray 02/29/24 13:50 IMPRESSION: No acute cardiopulmonary disease. Brain MRI 02/29/24 20:10 IMPRESSION: No acute infarct or other acute intracranial abnormality. Assessment and Plan (1) Vertigo: Status: Acute (2) Syncope: Status: Acute Assessment and Plan: d2 57yo F with FM, GERD, anxiety, depression, OA, hx breast CA s/p lumpectomy, IBS, somatization disorder admitted after multiple syncopal episodes, persistent vertigo with positive Romberg syncope vertigo - MRI normal. Neuro consult, EEG, and PT eval pending. PRN meclizine FM mood disorder - currently on buspirone, clonazepam, olanzapine, sertraline, amitriptyline, mirtazapine, prazosin, pregabalin, and hydroxyzine - Psychiatry consult for concern of polypharmacy IBS - dicyclomine RLS - ropinirole VTE ppx - LMWH dispo - TBD In my clinical judgment, the patient requires continued inpatient hospitalization for the following reasons: vertigo/syncope eval Total time managing care of this patient today: 35 minutes. Quality Stroke Does the patient have a stroke diagnosis?: No VTE Prior VTE?: No VTE Risk Level:: Medical - moderate - high VTE Device Contraindication: Treatment Not Indicated VTE Drug Contraindication: N/A - Med Ordered
--- NOTE | 2024-03-01 13:34 | MHC.CM.PN ---
CM met with pt and staff interpreter, she lives alone and has [employer] services through [employer], 4 hours a day M-F, and another at night. For DME, she uses a cane, she has a daily visit from a nurse to give her medications, which are kept in a locked box. She will have to see if she can get a ride home at [place]. HCP was discussed, she wants information, CM gave to her in Greek. CM will follow for DC needs.
--- NOTE | 2024-03-01 16:29 | P.CNPS_ITS ---
History of Present Illness Date of Service: 03/01/2024 Chief Complaint: Syncope, Vertigo Reason for Consult: polypharmacy Requesting physician: Kelly Shaikh Discussed with referring provider: Yes Sources of Information: patient interviewed and chart reviewed Additional Sources of Information: pt interviewed with approved hospital cell operator t/c to [facility] left message for call back to collect collateral HPI Narrative: Patient is a 59-year-old female who lives alone she is primarily [place]- speaking. She was admitted after a syncope episode at home. She is in a long list of medications. She is on many psychoactive medications which can cause sedation including BuSpar clonazepam hydroxyzine mirtazapine melatonin olanzapine prazosin sertraline. She is also on pregabalin from her pole inspector for fibromyalgia she also takes sumatriptan and amitriptyline presumably for migraines patient says that she has no new medications and that she has been on these for a long time. Although her memory is poor on mini- mental status exam she recalled 0/3 and 5 minutes. She states she has fibromyalgia arthritis neuropathy migraines anxiety and depression. She reports she sees a prescriber at [facility] on [facility] in [place] she also has visiting nurses who come daily she says she has a med lockbox for her medication. Patient is oriented to person place date month and year and knows the president is Armando. she was unable to recall 3/3 in 5 minutes. She was unable to name her medications. Past Psychiatric History: seen for depressiona nd anxiety at [facility] Medical Evaluation Reviewed: Yes Personal & Social History: Patient lives alone. 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 She has a VNA daily. She has 2 daughters who live nearby and she talks to on the phone she states she has nephews and a brother but does not have much contact with them Review of Systems Review of Systems General: No fevers, malaise, unintentional weight loss HEENT: No blurred vision, diplopia. No sore throat, nasal congestion, rhinorrhea, sinus pain, ear pain Cardiovascular: No chest pain, palpitations, or leg edema Respiratory: No shortness of breath, wheezing, cough GI: No abdominal pain, nausea, vomiting, diarrhea, constipation, melena, hematochezia : No dysuria, hematuria, increased urinary frequency, decreased urinary output MSK: No myalgia, back pain Neuro: No headaches, weakness, paresthesias. +vertigo, +syncope Skin: No rashes or lesions Yes all other systems are reviewed and are negative Constitutional: Reports no additional constitutional complaints Reports system reviewed and no additional complaints, except as documented Cardiovascular: Reports no additional cardiovascular complaints Respiratory: Reports no additional respiratory complaints Reports Abnormal speech present [facility] Medical History Migraine Anemia Diarrhea Depression Somatization disorder Migraine equivalent syndrome Anxiety Periodontal disease Primary osteoarthritis of right hand Fibromyalgia Surgical History History of esophagogastroduodenoscopy (EGD) History of lumpectomy Hx of section Hx of shoulder surgery Hx of colonoscopy Family History: lives alone- 2 dtrs Social History: homebound Substance History: denies Trauma History: denies Diagnostics Vital Signs (24Hr): Vital Signs - 24 hr 02/29/24 18:24 02/29/24 20:33 02/29/24 20:58 Temperature 97.3 F 97.8 F 97.6 F Pulse Rate 66 68 64 Respiratory Rate 17 18 16 Blood Pressure 107/54 L 106/54 L 111/57 L Pulse Oximetry 98 99 97 Oxygen Delivery Method Room Air Room Air Room Air 02/29/24 22:25 03/01/24 00:00 03/01/24 03:55 Temperature 97.4 F 97.6 F Pulse Rate 68 75 Respiratory Rate 16 16 Blood Pressure 111/57 L 99/53 L 95/53 L Pulse Oximetry 96 96 Oxygen Delivery Method Room Air Room Air 03/01/24 07:46 03/01/24 08:28 03/01/24 14:54 Temperature 98.0 F Pulse Rate 72 76 92 Respiratory Rate 18 18 Blood Pressure 101/56 L 96/53 L Pulse Oximetry 96 Oxygen Delivery Method Room Air 03/01/24 16:00 Temperature 97.9 F Pulse Rate 64 Respiratory Rate 18 Blood Pressure 95/54 L Pulse Oximetry 96 Oxygen Delivery Method Room Air BMI result Body Mass Index 19.4 Labs 03/01/24 06:36 03/01/24 06:36 Labs: Laboratory Results - last 48 hr 02/29/24 03/01/24 11:31 06:36 WBC 4.7 L 4.5 L RBC 4.17 L 4.14 L Hgb 12.9 12.8 Hct 38.2 37.8 MCV 91.6 91.3 MCH 30.9 30.9 MCHC 33.8 33.9 RDW 13.6 13.4 Plt Count 259 256 MPV 8.7 L 8.7 L Immature Gran % (Auto) 0.2 0.2 Neut % (Auto) 67.1 57.5 Lymph % (Auto) 26.2 33.8 Grayson % (Auto) 5.7 6.8 Eos % (Auto) 0.4 1.3 Baso % (Auto) 0.4 0.4 Lymph # (Auto) 1.2 1.5 Grayson # (Auto) 0.3 0.3 Eos # (Auto) 0.0 0.1 Baso # (Auto) 0.0 0.0 Abs Immat Gran (auto) 0.01 0.01 Absolute Neuts (auto) 3.2 2.6 Absolute Nucleated RBC 0.000 0.000 Nucleated RBC % (auto) 0.0 0.0 Sodium 142 141 Potassium 4.6 3.8 Chloride 106 107 Carbon Dioxide 32 H 25 Anion Gap 9 L 13 BUN 13 15 Creatinine 0.77 0.72 Estim Creat Clear Calc 58.1 62.1 Estimated GFR > 60 > 60 Random Glucose 69 76 Calcium 9.8 9.4 Total Bilirubin 0.3 AST 18 ALT 15 Alkaline Phosphatase 104 Troponin I High Sens < 2.7 Total Protein 6.8 Albumin 4.2 Imaging Radiology Impressions: ITS Impressions Cervical Spine CT 02/29/24 11:29 IMPRESSION: 1. Unchanged Normal CT scan of the cervical spine. 2. No cervical fracture or dislocation is seen. Head CT 02/29/24 11:29 IMPRESSION: 1. Unchanged Normal CT scan of the brain. 2. No intracranial hemorrhage or skull fracture is seen. 3. No evidence of space occupying lesion could be found. 4. The current plain CT scan of the brain shows no diagnostic evidence of acute cerebral infarction. Chest X-Ray 02/29/24 13:50 IMPRESSION: No acute cardiopulmonary disease. Brain MRI 02/29/24 20:10 IMPRESSION: No acute infarct or other acute intracranial abnormality. Mental Status Exam Mental Status Exam Patient Appearance: Appropriate Patient Orientation: Person, Place and Time Level of Consciousness: Awake and Drowsy Patient Behavior: Appropriate Mood Description: Withdrawn Affect Description: Withdrawn and Flat Patient Cognition Impaired: Yes Ability to Follow Directions: Fair Speech Pattern: Clear, Soft-Spoken and Delayed Memory Description: Immediate Impaired and Working Impaired Hallucinations: None Delusions: Not Present Thought Process: Slowed Thinking Thought Content: positive for Slowed Thinking Judgement: Poor Medications Medications Current Medications Acetaminophen (Acetaminophen 325 Mg Tablet) 650 mg PO Q6H PRN PRN Reason: Pain, Mild (Pain Scale 1-3) Last Admin: 03/01/24 09:25 Dose: 650 mg Albuterol Sulfate (Albuterol Sulfate 90 Mcg 8 Gm Inhaler) 2 puff INHALE Q6H PRN PRN Reason: for wheezing Amitriptyline HCl (Amitriptyline Hcl 50 Mg Tablet) 100 mg PO BEDTIME [facility] Last Admin: 02/29/24 22:20 Dose: 100 mg Artificial Tears (Artificial Tears 15 Ml Drops) 2 drop EYE-LEFT Q4H PRN PRN Reason: irritation Ascorbic Acid (Ascorbic Acid 500 Mg Tablet) 500 mg PO MOWEFR [facility] Last Admin: 02/29/24 18:21 Dose: 500 mg Buspirone HCl (Buspirone Hcl 5 Mg Tablet) 15 mg PO TID [facility] Last Admin: 03/01/24 09:26 Dose: 15 mg Calcium Polycarbophil (Calcium Polycarbophil Tablet) 1 tab PO DAILY [facility] Last Admin: 03/01/24 12:24 Dose: 1 tab Clonazepam (Clonazepam 1 Mg Tablet) 1 mg PO BID [facility] Last Admin: 03/01/24 09:26 Dose: 1 mg Cyanocobalamin (Cyanocobalamin (Vitamin B-12) 100 Mcg Tablet) 100 mcg PO DAILY [facility] Last Admin: 03/01/24 09:26 Dose: 100 mcg Dicyclomine HCl (Dicyclomine Hcl 10 Mg Capsule) 40 mg PO QID [facility] Last Admin: 03/01/24 12:24 Dose: 40 mg Docusate Sodium (Docusate Sodium 100 Mg Capsule) 100 mg PO BID PRN PRN Reason: constipation Enoxaparin Sodium (Enoxaparin Sodium 40 Mg/0.4 Ml Syringe) 40 mg SUBCUT Q24H [facility] Last Admin: 02/29/24 18:21 Dose: 40 mg Ferrous Sulfate (Ferrous Sulfate 324 Mg Tablet.Dr) 324 mg PO MOWEFR [facility] Last Admin: 02/29/24 18:21 Dose: 324 mg Fluticasone/Vilanterol (Fluticasone/Vilanterol 100/25 Blst.W.Dev) 1 puff INHALE RDAILY [facility] Last Admin: 03/01/24 08:25 Dose: 1 puff Hydroxyzine HCl (Hydroxyzine Hcl 25 Mg Tablet) 25 mg PO BID PRN PRN Reason: anxiety Loratadine (Loratadine 10 Mg Tablet) 10 mg PO DAILY [facility] Last Admin: 03/01/24 09:27 Dose: 10 mg Meclizine HCl (Meclizine Hcl 12.5 Mg Tablet) 12.5 mg PO Q8H PRN PRN Reason: Vertigo Last Admin: 02/29/24 22:44 Dose: 12.5 mg Melatonin (Melatonin 3 Mg Tablet) 9 mg PO BEDTIME [facility] Last Admin: 02/29/24 22:24 Dose: 9 mg Mirtazapine (Mirtazapine 15 Mg Tablet) 45 mg PO BEDTIME [facility] Last Admin: 02/29/24 22:25 Dose: 45 mg Naproxen (Naproxen 500 Mg Tablet) 500 mg PO BID [facility] Last Admin: 03/01/24 09:26 Dose: 500 mg Olanzapine (Olanzapine 10 Mg Tablet) 20 mg PO BEDTIME [facility] Last Admin: 02/29/24 22:28 Dose: 20 mg Omeprazole (Omeprazole 20 Mg Capsule.Dr) 20 mg PO DAILY PRN PRN Reason: GI UPSET Ondansetron HCl (Ondansetron Hcl 4 Mg/2 Ml Vial) 4 mg IVPUSH Q8H PRN PRN Reason: Nausea and Vomiting Polyethylene Glycol (Polyethylene Glycol 3350 17 Gm Powd.Pack) 17 gm PO DAILY [facility] Last Admin: 03/01/24 10:18 Dose: 17 gm Prazosin HCl (Prazosin Hcl 1 Mg Capsule) 4 mg PO BEDTIME [facility]; Protocol Last Admin: 02/29/24 22:25 Dose: 4 mg Pregabalin (Pregabalin 150 Mg Capsule) 150 mg PO BID [facility] Last Admin: 03/01/24 09:26 Dose: 150 mg Ropinirole HCl (Ropinirole Hcl 0.5 Mg Tablet) 0.5 mg PO TID [facility] Last Admin: 03/01/24 09:26 Dose: 0.5 mg Senna (Sennosides 8.6 Mg Tablet) 17.2 mg PO BEDTIME PRN PRN Reason: Constipation Senna (Sennosides 8.6 Mg Tablet) 17.2 mg PO BEDTIME PRN PRN Reason: Constipation Sertraline HCl (Sertraline Hcl 100 Mg Tablet) 200 mg PO DAILY [facility] Last Admin: 03/01/24 09:26 Dose: 200 mg Sodium Chloride (0.9 % Sodium Chloride Flush 3 Ml Syringe) 3 ml IVFLUSH QSHIFT [facility] Last Admin: 03/01/24 09:27 Dose: 3 ml Sumatriptan Succinate (Sumatriptan Succinate 100 Mg Tablet) 100 mg PO DAILY MRX1 PRN PRN Reason: migraine headache Vitamin D (Cholecalciferol (Vitamin D3) 25 Mcg Tablet) 50 mcg PO DAILY [facility] Last Admin: 03/01/24 09:27 Dose: 50 mcg Allergies Allergies Allergy/AdvReac Type Severity Reaction Status Date / Time codeine [CODEINE] Allergy Intermediate DIZZY/NAUSEA, Verified 02/29/24 09:48 nausea/vomiting escitalopram [From LEXAPRO] Allergy Intermediate ? NAUSEA Verified 01/18/24 09:42 meperidine [MEPERIDINE] Allergy Intermediate NAUSEA Verified 01/18/24 09:42 morphine [MORPHINE] Allergy Intermediate PALPITATIONS, Verified 01/18/24 09:42 palpitation oxycodone [OXYCODONE] Allergy Intermediate PALPATATIONS, Verified 01/18/24 09:42 palpitations tramadol Allergy Unknown dizziness, Verified 01/18/24 09:42 nausea acetaminophen [From Percocet] Allergy Shakiness Verified 01/18/24 09:42 Assessment & Plan Assessment & Plan (1) Vertigo: Status: Acute Code(s): R42 - Dizziness and giddiness (2) Syncope: Qualifiers: Encounter type: initial encounter Status: Acute Code(s): R55 - Syncope and collapse Assessment and Plan: d2 57yo F with FM, GERD, anxiety, depression, OA, hx breast CA s/p lumpectomy, IBS, somatization disorder admitted after multiple syncopal episodes, persistent vertigo with positive Romberg syncope vertigo - MRI normal. Neuro consult, EEG, and PT eval pending. PRN meclizine FM mood disorder - currently on buspirone, clonazepam, olanzapine, sertraline, amitriptyline, mirtazapine, prazosin, pregabalin, and hydroxyzine - Psychiatry consult for concern of polypharmacy IBS - dicyclomine RLS - ropinirole VTE ppx - LMWH dispo - TBD In my clinical judgment, the patient requires continued inpatient hospitalization for the following reasons: vertigo/syncope eval (3) At risk for polypharmacy: Status: Acute Code(s): Z91.89 - Other specified personal risk factors, not elsewhere classified Plan telephone call to [facility] to collect collaterall information tapering some of the psychoactive and sedating meds which also cause orhtostatic hypotension is medically reasonable. stopping the PRN hydroxyzine would not cause withdrawal. reducing the mirtazepine to 30 mg from 45mg at bedtime is also medically reasonable reducing the clonazepam from 1 mg BID to 1 mg in am and 0.5mg at bedtime is also reasonable given that she has several other medications at bedtime including prazosin, high dose amitriptyline and mirtazepine and melatonin. could also contact rheumatology and neurolgy about meds for fibromylagia lyrica and the amitriptuline and sumatriptan are likely prescribed for migranes. Total time managing care of this patient today __90__ minutes. Patient educated on: diagnosis, medication risk/benefits, therapeutic strategies and medical condition Informed Consent: does not understand
[2024-03-01] MEDS: Enoxaparin Sodium 40 MG/0.4 ML SYRINGE SUBCUT (16:51)
--- NOTE | 2024-03-01 17:08 | PM.NEUROCN ---
History of Present Illness Data of Consult Service Date: 03/01/24 Primary Care Provider: Umm Coley MD [facility] Reason for consult: Syncope This is a 57-year-old female with history of fibromyalgia, GERD, anxiety and depression, osteoarthritis, right breast cancer status post lumpectomy, IBS, somatization disorder presents to the hospital following multiple syncopal episodes yesterday and persistent vertigo. She states around 4am yesterday she feels she may have passed out twice but does not recall much of the episode. Feels she went to the bathroom, stood and believes she fell in the bathroom but then woke up on her bedroom floor. This was unwitnessed. She does not recall any prodrome including lightheadedness, palpitations, chest pain, dyspnea, vision changes. She states she has had similar episodes in the past, again unwitnessed. Her daughter has never witnessed them. Both deny any known history of seizure activity. She states all day today, she has been having significant room spinning dizziness with any head movements with associated nausea but no vomiting. She states her gait is unstable and has been ambulating with a cane. Upon standing she experiences intolerable dizziness but has not fallen today. Denies any fevers, chills, abdominal pain, urinary symptoms, diarrhea, shortness breath, cough, lightheadedness, palpitations, chest pain. MRI brain and CT neck normal Review of Systems Review of Systems: General: No fevers, malaise, unintentional weight loss HEENT: No blurred vision, diplopia. No sore throat, nasal congestion, rhinorrhea, sinus pain, ear pain Cardiovascular: No chest pain, palpitations, or leg edema Respiratory: No shortness of breath, wheezing, cough GI: No abdominal pain, nausea, vomiting, diarrhea, constipation, melena, hematochezia : No dysuria, hematuria, increased urinary frequency, decreased urinary output MSK: No myalgia, back pain Neuro: No headaches, weakness, paresthesias. +vertigo, +syncope Skin: No rashes or lesions Yes all other systems are reviewed and are negative Constitutional: Constitutional: Reports no additional constitutional complaints ENT: Reports system reviewed and no additional complaints, except as documented Cardiovascular: Cardiovascular: Reports no additional cardiovascular complaints Respiratory: Respiratory: Reports no additional respiratory complaints Neurologic: Reports Abnormal speech present PMFSH Past Medical History Medical History Migraine Anemia Diarrhea Depression Somatization disorder Migraine equivalent syndrome Anxiety Periodontal disease Primary osteoarthritis of right hand Fibromyalgia Family History Family History Mother HTN (hypertension) Sister Breast cancer Bone cancer Colon polyps Sister Osteoporosis Hypercholesteremia Colon polyps Surgical History Surgical History History of esophagogastroduodenoscopy (EGD) History of lumpectomy Hx of section Hx of shoulder surgery Hx of colonoscopy Social History Social History Household Members: None Housing: Apartment Are you a primary day care home provider to a significant other at home: No Do you presently have visiting nurse or other home services: Yes (ASSET MANAGER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 bath.) Alcohol intake: never Patient Tobacco Use Status: Former Tobacco user Years Smoked: 3 Smoked in Last 30 Days: No Use of substances other than those prescribed or required for medical reasons: No Currently Displaying Signs/Symptoms of Drug Intoxication Withdrawal: No Any prior treatment program specific to substance use: No Have you been hit, kicked, punched, or otherwise hurt by someone within the past year? 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 NAUSEA Verified 01/18/24 09:42 meperidine [MEPERIDINE] Allergy Intermediate NAUSEA Verified 01/18/24 09:42 morphine [MORPHINE] Allergy Intermediate PALPITATIONS, Verified 01/18/24 09:42 palpitation oxycodone [OXYCODONE] Allergy Intermediate PALPATATIONS, Verified 01/18/24 09:42 palpitations tramadol Allergy Unknown dizziness, Verified 01/18/24 09:42 nausea acetaminophen [From Percocet] Allergy Shakiness Verified 01/18/24 09:42 Active Medications: Current Medications Acetaminophen (Acetaminophen 325 Mg Tablet) 650 mg PO Q6H PRN PRN Reason: Pain, Mild (Pain Scale 1-3) Last Admin: 03/01/24 09:25 Dose: 650 mg Albuterol Sulfate (Albuterol Sulfate 90 Mcg 8 Gm Inhaler) 2 puff INHALE Q6H PRN PRN Reason: for wheezing Amitriptyline HCl (Amitriptyline Hcl 50 Mg Tablet) 100 mg PO BEDTIME [facility] Last Admin: 02/29/24 22:20 Dose: 100 mg Artificial Tears (Artificial Tears 15 Ml Drops) 2 drop EYE-LEFT Q4H PRN PRN Reason: irritation Ascorbic Acid (Ascorbic Acid 500 Mg Tablet) 500 mg PO MOWEFR [facility] Last Admin: 02/29/24 18:21 Dose: 500 mg Buspirone HCl (Buspirone Hcl 5 Mg Tablet) 15 mg PO TID [facility] Last Admin: 03/01/24 09:26 Dose: 15 mg Calcium Polycarbophil (Calcium Polycarbophil Tablet) 1 tab PO DAILY [facility] Last Admin: 03/01/24 12:24 Dose: 1 tab Clonazepam (Clonazepam 1 Mg Tablet) 1 mg PO BID [facility] Last Admin: 03/01/24 09:26 Dose: 1 mg Cyanocobalamin (Cyanocobalamin (Vitamin B-12) 100 Mcg Tablet) 100 mcg PO DAILY [facility] Last Admin: 03/01/24 09:26 Dose: 100 mcg Dicyclomine HCl (Dicyclomine Hcl 10 Mg Capsule) 40 mg PO QID [facility] Last Admin: 03/01/24 12:24 Dose: 40 mg Docusate Sodium (Docusate Sodium 100 Mg Capsule) 100 mg PO BID PRN PRN Reason: constipation Enoxaparin Sodium (Enoxaparin Sodium 40 Mg/0.4 Ml Syringe) 40 mg SUBCUT Q24H [facility] Last Admin: 02/29/24 18:21 Dose: 40 mg Ferrous Sulfate (Ferrous Sulfate 324 Mg Tablet.Dr) 324 mg PO MOWEFR [facility] Last Admin: 02/29/24 18:21 Dose: 324 mg Fluticasone/Vilanterol (Fluticasone/Vilanterol 100/25 Blst.W.Dev) 1 puff INHALE RDAILY [facility] Last Admin: 03/01/24 08:25 Dose: 1 puff Hydroxyzine HCl (Hydroxyzine Hcl 25 Mg Tablet) 25 mg PO BID PRN PRN Reason: anxiety Loratadine (Loratadine 10 Mg Tablet) 10 mg PO DAILY [facility] Last Admin: 03/01/24 09:27 Dose: 10 mg Meclizine HCl (Meclizine Hcl 12.5 Mg Tablet) 12.5 mg PO Q8H PRN PRN Reason: Vertigo Last Admin: 02/29/24 22:44 Dose: 12.5 mg Melatonin (Melatonin 3 Mg Tablet) 9 mg PO BEDTIME [facility] Last Admin: 02/29/24 22:24 Dose: 9 mg Mirtazapine (Mirtazapine 15 Mg Tablet) 45 mg PO BEDTIME [facility] Last Admin: 02/29/24 22:25 Dose: 45 mg Naproxen (Naproxen 500 Mg Tablet) 500 mg PO BID [facility] Last Admin: 03/01/24 09:26 Dose: 500 mg Olanzapine (Olanzapine 10 Mg Tablet) 20 mg PO BEDTIME [facility] Last Admin: 02/29/24 22:28 Dose: 20 mg Omeprazole (Omeprazole 20 Mg Capsule.) 20 mg PO DAILY PRN PRN Reason: GI UPSET Ondansetron HCl (Ondansetron Hcl 4 Mg/2 Ml Vial) 4 mg IVPUSH Q8H PRN PRN Reason: Nausea and Vomiting Polyethylene Glycol (Polyethylene Glycol 3350 17 Gm Powd.Pack) 17 gm PO DAILY [facility] Last Admin: 03/01/24 10:18 Dose: 17 gm Prazosin HCl (Prazosin Hcl 1 Mg Capsule) 4 mg PO BEDTIME [facility]; Protocol Last Admin: 02/29/24 22:25 Dose: 4 mg Pregabalin (Pregabalin 150 Mg Capsule) 150 mg PO BID [facility] Last Admin: 03/01/24 09:26 Dose: 150 mg Ropinirole HCl (Ropinirole Hcl 0.5 Mg Tablet) 0.5 mg PO TID [facility] Last Admin: 03/01/24 09:26 Dose: 0.5 mg Senna (Sennosides 8.6 Mg Tablet) 17.2 mg PO BEDTIME PRN PRN Reason: Constipation Senna (Sennosides 8.6 Mg Tablet) 17.2 mg PO BEDTIME PRN PRN Reason: Constipation Sertraline HCl (Sertraline Hcl 100 Mg Tablet) 200 mg PO DAILY [facility] Last Admin: 03/01/24 09:26 Dose: 200 mg Sodium Chloride (0.9 % Sodium Chloride Flush 3 Ml Syringe) 3 ml IVFLUSH QSHIFT [facility] Last Admin: 03/01/24 09:27 Dose: 3 ml Sumatriptan Succinate (Sumatriptan Succinate 100 Mg Tablet) 100 mg PO DAILY MRX1 PRN PRN Reason: migraine headache Vitamin D (Cholecalciferol (Vitamin D3) 25 Mcg Tablet) 50 mcg PO DAILY [facility] Last Admin: 03/01/24 09:27 Dose: 50 mcg Home Medications ?Medication ?Instructions ?Recorded ?Confirmed ?Last Taken ?Type buspirone 15 mg tablet 15 mg PO TID 11/08/20 02/29/24 Unknown History clonazepam 1 mg tablet 1 mg PO BID Anxiety 11/08/20 02/29/24 Unknown History olanzapine 20 mg tablet 20 mg PO BEDTIME 11/08/20 02/29/24 Unknown History prazosin 2 mg capsule 4 mg PO BEDTIME 11/08/20 02/29/24 Unknown History sertraline 100 mg tablet 200 mg PO DAILY 11/08/20 02/29/24 Unknown History loratadine 10 mg tablet 10 mg PO DAILY 07/16/21 02/29/24 Unknown History mirtazapine 45 mg tablet 45 mg PO BEDTIME 07/16/21 02/29/24 Unknown History cyanocobalamin (vitamin B-12) 100 100 mcg PO DAILY 05/29/22 02/29/24 Unknown History mcg tablet cholecalciferol (vitamin D3) 50 50 mcg PO DAILY 07/01/22 02/29/24 Unknown History mcg (2,000 unit) capsule diclofenac sodium 1 % topical gel 2 g topical TID PRN Pain 07/29/22 02/29/24 Unknown History amitriptyline 100 mg tablet 100 mg PO BEDTIME 10/22/22 02/29/24 Unknown History pregabalin 150 mg capsule 150 mg PO BID 04/14/23 02/29/24 Unknown History acetaminophen 500 mg tablet 500 mg PO Q4H PRN Pain 02/29/24 02/29/24 Unknown History ascorbate calcium (vitamin C) 500 500 mg PO MOWEFR 02/29/24 02/29/24 Unknown History mg tablet ferrous sulfate 325 mg (65 mg 325 mg PO MOFR 02/29/24 02/29/24 Unknown History iron) tablet fluticasone propionate 115 2 puff inhalation BID 02/29/24 02/29/24 Unknown History mcg-salmeterol 21 mcg/actuation HFA inhaler (Advair HFA) melatonin 5 mg tablet 10 mg PO BEDTIME Sleep 02/29/24 02/29/24 Unknown History omeprazole 20 mg capsule,delayed 20 mg PO DAILY PRN GI UPSET 02/29/24 02/29/24 Unknown History release sennosides 8.6 mg tablet (senna) 17.2 mg PO BEDTIME PRN Constipation 02/29/24 02/29/24 Unknown History sumatriptan succinate 100 mg tablet 100 mg PO DAILY MRX1 PRN migraine 02/29/24 02/29/24 Unknown History headache Physical Exam Vital Signs: Vital Signs: Last Vital Signs Temp 97.9 F 03/01/24 16:00 Pulse 64 03/01/24 16:00 Resp 18 03/01/24 16:00 BP 95/54 L 03/01/24 16:00 Pulse Ox 96 03/01/24 16:00 O2 Del Method Room Air 03/01/24 16:00 BMI result Body Mass Index 19.4 Const: General: cooperative and healthy appearing Nutritional Appearance: average body habitus Orientation/consciousness: patient oriented x3 Limitations: no limitations HEENT: Head: Yes normal to inspection General nose exam: Normal external nose present Face and sinus: Yes normal facial exam Teeth and gingiva: dentition normal Neck: Neck: Yes normal visual inspection Thyroid: Thyroid normal Chest: Chest palpation & inspection: normal inspection of the chest Resp: Effort & Inspection: normal respiratory effort Auscultation: clear to auscultation bilaterally Cardio: Jugular venous distension: no JVD Rate: regular rate Rhythm: regular rhythm GI: Inspection: Yes normal to inspection Palpation (GI): Soft to palpation Percussion: Yes normal to percussion Auscultation: normal bowel sounds Skin: General skin exam: no rashes or lesions noted Rashes: no rashes Nails: normal Neuro: Other: Normal non focal neuro exam General: patient oriented x3 Cranial nerves: Yes CN's II-XII intact bilaterally Cognition (Neuro): normal cognition Speech: Abnormal speech present Results Labs 03/01/24 06:36 03/01/24 06:36 Labs: Short CBC 03/01/24 Range/Units 06:36 WBC 4.5 L (4.8-10.8) X10*3/uL Hgb 12.8 (12.0-16.0) g/dl Hct 37.8 (37.0-47.0) % Plt Count 256 (160-400) X10*3/uL BMP 03/01/24 06:36 Sodium 141 Potassium 3.8 Chloride 107 Carbon Dioxide 25 BUN 15 Creatinine 0.72 Calcium 9.4 Assessment and Plan (1) Vertigo: Status: Acute possible vestibular neuronitis. Recom. Meclizine 25mg tid for 48 hrs (2) Syncope: Qualifiers: Encounter type: initial encounter Status: Acute Possible cardiogenic. R/o Orthoststic hypotension. Doubt Sz disorde. Recom: check orthostatic hypotension, Cradiac monitoring, EEG Procedures Date of Service Date of Service: 03/01/24
[2024-03-01] MEDS: Melatonin 3 MG TABLET 9 MG PO (21:53)
[2024-03-01] MEDS: OLANZapine 10 MG TABLET 20 MG PO (21:53)
[2024-03-01] MEDS: Amitriptyline HCl 50 MG TABLET 100 MG PO (21:55)
[2024-03-01] MEDS: clonazePAM 0.5 MG TABLET PO (21:55)
[2024-03-01] MEDS: Mirtazapine 30 MG TABLET PO (21:55)
[2024-03-01] MEDS: Sennosides 8.6 MG TABLET 17.2 MG PO (22:06)
[2024-03-02] VITALS (9 sets, daily range): BP systolic 98–112; BP diastolic 52–62; PULSE 71–92; RESP 18–20; TEMP 36.6–36.9; O2SAT 97–98
[2024-03-02] MEDS: Fluticasone/Vilanterol 100/25 BLST.W.DEV 1 PUFF INHALE (08:06)
[2024-03-02] MEDS: rOPINIRole HCL 0.5 MG TABLET PO ×2 (10:20→14:32)
[2024-03-02] MEDS: Cholecalciferol (Vitamin D3) 25 MCG TABLET 50 MCG PO (10:20)
[2024-03-02] MEDS: Sertraline HCL 100 MG TABLET 200 MG PO (10:20)
[2024-03-02] MEDS: clonazePAM 1 MG TABLET PO (10:20)
[2024-03-02] MEDS: polyethylene glycoL 3350 17 GM POWD.PACK PO (10:20)
[2024-03-02] MEDS: Cyanocobalamin (Vitamin B-12) 100 MCG TABLET PO (10:20)
[2024-03-02] MEDS: busPIRone HCl 5 MG TABLET 15 MG PO ×2 (10:21→14:31)
[2024-03-02] MEDS: Pregabalin 150 MG CAPSULE PO (10:21)
[2024-03-02] MEDS: Loratadine 10 MG TABLET PO (10:21)
[2024-03-02] MEDS: NaPROXEN 500 MG TABLET PO (10:21)
[2024-03-02] MEDS: 0.9 % Sodium Chloride Flush 3 ML SYRINGE IVFLUSH (10:22)
[2024-03-02] MEDS: ondansetron HCL 4 MG/2 ML VIAL IVPUSH (14:32)
--- NOTE | 2024-03-02 14:43 | W.MHC.F2F ---
Service Date Service Date: 03/02/24 Encounter Date of encounter: 03/02/24 Reasons for Services Signs and symptoms assessed: Impaired Gait Pattern, Impaired Safety ,Impaired Standing Balance,Muscle Weakness,Pain, Postural Asymmetry, Recurrent Falls ,Vertigo/ Disequilibrium Reason for nursing home: medication management, medication treatment and teach disease management Reason for physical therapy: home safety and mobility, therapeutic exercises, gait/transfer training, assess need for DME, ADL training and energy conservation MD Overseeing Care: Umm Coley Homebound: Leaving the home is medically contraindicated at this time without the asist of a device and/or another person due th the listed conditions above and below. Reason homebound: unsteady gait / fall risk and weakness related to hospital stay Homebound supporting statement: Transfer Training,Gait Training,Stair Training, Therapeutic Activities, Therapeutic Exercise, Patient Education, Safety,Balance Certification: Based on the above findings, I certify that this patient is confined to the home and needs intermittent nursing home care, physical therapy and/or speech therapy, or continues to need occupational therapy. The patient is under my care, and I have initiated the establishment of the plan of care. The patient will be followed by a physician who will periodically review the plan of care. Time Spent With Patient Time: Total time managing care of this patient today ____ minutes.
--- NOTE | 2024-03-02 14:45 | P.DS_ITS ---
DS: Providers Provider Date of Service: 03/02/24 Date of admission: 02/29/24 17:21 Date of discharge: 03/02/24 Primary care physician: Umm Coley MD Consults: 02/29/24 17:21 Consult to Neurology Routine Consulting Provider: [facility] Reason for consultation: vertigo, syncope 02/29/24 17:27 Consult to Psychiatry Routine Consulting Provider: Psych Covering Reason for consultation: polypharmacy DS: Diagnosis Discharge Diagnosis (1) Vertigo: Status: Acute (2) Syncope: Status: Acute (3) At risk for polypharmacy: Status: Acute DS: Summary Hospital Course Hospital Course: From the history and physical by the admitting hospitalist, SLIME Young, 02/29/24: 57-year-old female with past medical history of fibromyalgia, GERD, anxiety and depression, osteoarthritis, history of right breast cancer status post lumpectomy, IBS, somatization disorder presents to the hospital following multiple syncopal episodes yesterday and persistent vertigo. She states around 4am yesterday she feels she may have passed out twice but does not recall much of the episode. Feels she went to the bathroom, stood and believes she fell in the bathroom but then woke up on her bedroom floor. This was unwitnessed. She does nto recall any prodrome including lightheadedness, palpitations, chest pain, dyspnea, vision changes. She states she has had similar episodes in the past, again unwitnessed. Her daughter who is at bedside states she is hurt her falls but has never witnessed them. Both deny any known history of seizure activity. She states all day today, she has been having significant room spinning dizziness with any head movements with associated nausea but no vomiting. She states her gait is unstable and has been ambulating with a cane. Upon standing she experiences intolerable dizziness but has not fallen today. Denies any fevers, chills, abdominal pain, urinary symptoms, diarrhea, shortness breath, cough, lightheadedness, palpitations, chest pain. She is reporting mild heartburn but otherwise has no complaints at this time. On arrival, vital signs stable. Orthostatic vital signs negative. Hematology studies unremarkable. Renal function normal, electrolyte levels normal. Troponin undetectable. Head CT negative for any acute intracranial abnormality. Cervical spine CT negative for any acute osseous abnormality. Chest x-ray negative. EKG shows NSR, rate [address]/T-wave abnormality. In the ED has been given 600 mg ibuprofen. 57yo F with FM, GERD, anxiety, depression, OA, hx breast CA s/p lumpectomy, IBS, and somatization disorder admitted after multiple syncopal episodes, persistent vertigo with positive Romberg. MRI of the brain was completely normal, as was EEG. Neuro consulted; likely diagnosis of peripheral vertigo. PT evaluation done and will arrange home PT; should also have a referral to [facility] for specific vestibular therapy. Vertigo improved with prn meclizine, which replaced hydroxyzine. Syncope did not recur. Orthostatics negative. No arrhythmias on telemetry. Concern that this was related to polypharmacy. Psychiatry consulted and recommended stopping meclizine, reducing clonazepam from 1 mg bid to 1 mg qam/0.5 mg qpm, and reducing mirtazapine from 45 to 30 mg qhs. Should follow up with her psychiatrist at [facility] for further medication consolidation. Time Attestation Discharge Coordination Time (in mins): 35 Quality: Safe Use of Opioids Does Pt have an Active Cancer Diagnosis on the Problem List?: No Quality: Stroke Does the patient have a stroke diagnosis?: No Physical Exam Vital Signs: Vital Signs: Last Vital Signs Temp 98.3 F 03/02/24 10:52 Pulse 92 03/02/24 10:52 Resp 18 03/02/24 10:52 BP 110/61 03/02/24 13:56 Pulse Ox 97 03/02/24 10:52 O2 Del Method Room Air 03/02/24 10:52 BMI result Body Mass Index 19.4 Gen: in no acute distress HEENT: sclera anicteric, moist mucus membranes Neck: supple Lungs: clear to auscultation bilaterally Heart: regular rate and rhythm, no murmurs Abd: soft, non-tender, non-distended Ext: no edema Skin: warm/well-perfused Neuro: alert and oriented x3, no focal findings Psych: appropriate affect DS: Data Data Completed and Pending Completed studies during hospitalization [Text1]: Laboratory Results WBC 4.5 X10*3/uL (4.8-10.8) L 03/01/24 06:36 RBC 4.14 X10*6/uL (4.20-5.50) L 03/01/24 06:36 Hgb 12.8 g/dl (12.0-16.0) 03/01/24 06:36 Hct 37.8 % (37.0-47.0) 03/01/24 06:36 MCV 91.3 fL (80.0-98.0) 03/01/24 06:36 MCH 30.9 pg (27.0-33.0) 03/01/24 06:36 MCHC 33.9 g/dl (31.0-35.0) 03/01/24 06:36 RDW 13.4 % (11.0-16.0) 03/01/24 06:36 Plt Count 256 X10*3/uL (160-400) 03/01/24 06:36 MPV 8.7 fL (9.4-12.3) L 03/01/24 06:36 Immature Gran % (Auto) 0.2 % (0.0-0.4) 03/01/24 06:36 Neut % (Auto) 57.5 % (45-73) 03/01/24 06:36 Lymph % (Auto) 33.8 % (20-40) 03/01/24 06:36 Rusk % (Auto) 6.8 % (2-11) 03/01/24 06:36 Eos % (Auto) 1.3 % (0-4) 03/01/24 06:36 Baso % (Auto) 0.4 % (0-2) 03/01/24 06:36 Lymph # (Auto) 1.5 X10*3/uL (1.2-4.9) 03/01/24 06:36 Rusk # (Auto) 0.3 X10*3/uL (0.1-1.2) 03/01/24 06:36 Eos # (Auto) 0.1 X10*3/uL (0.0-0.4) 03/01/24 06:36 Baso # (Auto) 0.0 X10*3/uL (0.0-0.2) 03/01/24 06:36 Abs Immat Gran (auto) 0.01 X10*3/uL (0.00-0.03) 03/01/24 06:36 Absolute Neuts (auto) 2.6 x10*3/uL (2.0-8.3) 03/01/24 06:36 Absolute Nucleated RBC 0.000 X10*3/uL (0.0-0.012) 03/01/24 06:36 Nucleated RBC % (auto) 0.0 /100WBC (0.0-0.2) 03/01/24 06:36 Sodium 141 mmol/L (135-145) 03/01/24 06:36 Potassium 3.8 mmol/L (3.3-5.1) 03/01/24 06:36 Chloride 107 mmol/L (96-108) 03/01/24 06:36 Carbon Dioxide 25 mmol/L (22-29) 03/01/24 06:36 Anion Gap 13 (12-20) 03/01/24 06:36 BUN 15 mg/dL (9-16) 03/01/24 06:36 Creatinine 0.72 mg/dL (0.5-1.4) 03/01/24 06:36 Estim Creat Clear Calc 62.1 03/01/24 06:36 Estimated GFR > 60 03/01/24 06:36 Random Glucose 76 mg/dL (60-115) 03/01/24 06:36 Calcium 9.4 mg/dL (8.4-10.2) 03/01/24 06:36 Total Bilirubin 0.3 mg/dL (0.0-1.0) 02/29/24 11:31 AST 18 U/L (5-31) 02/29/24 11:31 ALT 15 U/L (0-31) 02/29/24 11:31 Alkaline Phosphatase 104 U/L (39-117) 02/29/24 11:31 Troponin I High Sens < 2.7 ng/L (<3.5-17.0) 02/29/24 11:31 Total Protein 6.8 g/dL (6.5-8.0) 02/29/24 11:31 Albumin 4.2 g/dL (3.5-5.0) 02/29/24 11:[address] 02/29/24 11:29 IMPRESSION: 1. Unchanged Normal CT scan of the cervical spine. 2. No cervical fracture or dislocation is seen. Head CT 02/29/24 11:29 IMPRESSION: 1. Unchanged Normal CT scan of the brain. 2. No intracranial hemorrhage or skull fracture is seen. 3. No evidence of space occupying lesion could be found. 4. The current plain CT scan of the brain shows no diagnostic evidence of acute cerebral infarction. Chest X-Ray 02/29/24 13:50 IMPRESSION: No acute cardiopulmonary disease. Brain MRI 02/29/24 20:10 IMPRESSION: No acute infarct or other acute intracranial abnormality. EEG 02/29/24 This waking and briefly sleep EEG within normal limits Discharge Plan Discharge Anticipated Discharge Date/Time: 03/02/24 14:36 Patient Disposition: Home Health Service Discharge Diagnosis: peripheral vertigo, syncope from polypharmacy Referrals: Physical Therapy - [facility] [Outside] - 1 Week (for vestibular therapy ) Umm Coley MD [Primary Care Provider] - 1 Week Discharge Medications: New clonazepam 0.5 mg Tablet 0.5 mg PO BEDTIME Qty: 1 0RF clonazepam 1 mg Tablet 1 mg PO DAILY Qty: 1 0RF mirtazapine 30 mg Tablet 30 mg PO BEDTIME Qty: 30 0RF Rx Instructions: replaces prior dose of 45 mg meclizine 12.5 mg Tablet 12.5 mg PO Q8H PRN (Reason: Vertigo) Qty: 12 0RF (DME) [facility] See Rx Instructions .Route Qty: 1 0RF Rx Instructions: As directed Continued ropinirole 0.25 mg tablet 0.5 mg PO TID 30 Days Qty: 180 3RF Rx Instructions: take in the evening naproxen 500 mg tablet 500 mg PO BID Qty: 60 3RF fluticasone propion-salmeterol [Advair HFA] 115-21 mcg/actuation HFA aerosol inhaler 2 puff INHALATION BID sumatriptan succinate 100 mg tablet 100 mg PO DAILY MRX1 PRN (Reason: migraine headache) Rx Instructions: 100 mg orally at onset of headache, may repeat in 2 hrs PRN; max 2 tabs per day or 4 tabs/week (may take with Naproxen 440mg or Tylenol 1000mg) ferrous sulfate 325 mg (65 mg iron) tablet 325 mg PO MOWEFR ascorbate calcium (vitamin C) 500 mg tablet 500 mg PO MOWEFR Rx Instructions: 500 mg orally 3 x's per week on Thu-Thu-Thu (take w/ ferrous sulfate). acetaminophen 500 mg Tablet 500 mg PO Q4H PRN (Reason: Pain) sennosides [senna] 8.6 mg tablet 17.2 mg PO BEDTIME PRN (Reason: Constipation) omeprazole 20 mg capsule,delayed release(DR/EC) 20 mg PO DAILY PRN (Reason: GI UPSET) melatonin 5 mg tablet 10 mg PO BEDTIME loratadine 10 mg tablet 10 mg PO DAILY buspirone 15 mg tablet 15 mg PO TID sertraline 100 mg tablet 200 mg PO DAILY olanzapine 20 mg tablet 20 mg PO BEDTIME prazosin 2 mg capsule 4 mg PO BEDTIME albuterol sulfate [ProAir HFA] 90 mcg/actuation HFA aerosol inhaler 2 puff inhalation Q6H PRN (Reason: for wheezing) 30 Days Qty: 8.5 6RF cyanocobalamin (vitamin B-12) 100 mcg tablet 100 mcg PO DAILY cholecalciferol (vitamin D3) 50 mcg (2,000 unit) capsule 50 mcg PO DAILY diclofenac sodium 1 % gel 2 g topical TID PRN (Reason: Pain) amitriptyline 100 mg tablet 100 mg PO BEDTIME pregabalin 150 mg capsule 150 mg PO BID psyllium husk [Fiber (psyllium husk)] 0.4 gram capsule 0.4 g PO BID Qty: 60 6RF dicyclomine 20 mg tablet 40 mg PO QID Qty: 240 3RF docusate sodium [Colace] 100 mg capsule 100 mg PO BID PRN (Reason: constipation) 30 Days Qty: 60 3RF Discontinued hydroxyzine HCl 25 mg tablet 25 mg PO BID PRN (Reason: anxiety) Qty: 7 0RF mirtazapine 45 mg tablet 45 mg PO BEDTIME clonazepam 1 mg tablet 1 mg PO BID Discharge Orders: Discharge Order (Routine); Ordered 03/02/24 Ordered By: Kelly Shaikh Diet: Advance to usual diet Activity on Discharge: As tolerated Stand Alone Forms: Patient Portal Discharge page Print Language: Vietnamese Care Plan Goals: fall prevention resolution of vertigo Health Concerns: peripheral vertigo, syncope from polypharmacy Plan of Treatment: use 2-wheel walker home physical therapy for balance and weakness ask for referral to [facility] for VESTIBULAR therapy take meclizine as needed STOP hydroxyzine decrease mirtazapine from 45 to 30 mg at bedtime decrease clonazepam from 1 mg twice daily to 1 mg in the morning and 0.5 mg at bedtime see your psychiatrist at [facility] for further medication consolidation Please follow up with your primary care doctor within 1 week. Return to the hospital if you experience recurrent or worsening symptoms. Assessment: See Discharge Summary.
--- NOTE | 2024-03-02 15:19 | W.MHC.F2F ---
Service Date Service Date: 03/02/24 Encounter Date of encounter: 03/02/24 Reasons for Services Signs and symptoms assessed: Impaired Gait Pattern, Impaired Safety ,Impaired Standing Balance,Muscle Weakness,Pain, Postural Asymmetry, Recurrent Falls ,Vertigo/ Disequilibrium Reason for chcf: medication management, medication treatment and teach disease management Reason for physical therapy: home safety and mobility, therapeutic exercises, gait/transfer training, assess need for DME, ADL training, energy conservation and other Reason for occupational therapy: home safety and mobility, therapeutic exercises, gait/transfer training, assess need for DME, ADL training, energy conservation and other (VESTIBULAR THERAPY) MD Overseeing Care: Umm Coley Homebound: Leaving the home is medically contraindicated at this time without the asist of a device and/or another person due th the listed conditions above and below. Reason homebound: unsteady gait / fall risk and weakness related to hospital stay Homebound supporting statement: Transfer Training,Gait Training,Stair Training, Therapeutic Activities, Therapeutic Exercise, Patient Education, Safety,Balance VESTIBULAR THERAPY Certification: Based on the above findings, I certify that this patient is confined to the home and needs intermittent chcf care, physical therapy and/or speech therapy, or continues to need occupational therapy. The patient is under my care, and I have initiated the establishment of the plan of care. The patient will be followed by a physician who will periodically review the plan of care. Time Spent With Patient Time: Total time managing care of this patient today ____ minutes.
--- NOTE | 2024-03-02 15:19 | MHC.CM.PN ---
Pt. has been medically cleared for DC, she will have home health services from [facility]. She will call a friend to transport her home.
== END 2024-03-02 18:11 | disposition home health service (06) | DRG 111 ==
LOC: HO.ED 16:11 → HO.EDOVER 17:27 → HO.IMC 19:38
PROVIDERS: Admitting Provider Physician Assistant; Emergency Provider Emergency Medicine; PCP Internal Medicine; Visit Provider Family Medicine
DX: H81.399 Other peripheral vertigo, unspecified ear (principal); F39 Unspecified mood [affective] disorder; M79.7 Fibromyalgia; R55 Syncope and collapse; K58.9 Irritable bowel syndrome, unspecified; G25.81 Restless legs syndrome; Z85.3 Personal history of malignant neoplasm of breast; T50.915A Adverse effect of multiple unspecified drugs, medicaments and biological substances, initial encounter; Z87.891 Personal history of nicotine dependence; Z79.51 Long term (current) use of inhaled steroids; Z79.899 Other long term (current) drug therapy
CPT/HCPCS: 36415; 70450; 70551; 71046; 72125; 80048; 80053; 84484; 85025; 93005; 95816; 97116; 97162; 99222; 99285; J1650; J2405

== ENCOUNTER → 2024-02-29 10:16 | Outpatient (BNV) | payer MEDICAID, SELFPAY | PROVIDERS: Emergency Provider Emergency Medicine; PCP Internal Medicine; Visit Provider Internal Medicine | DX: R07.9 Chest pain, unspecified (principal) | CPT/HCPCS: 93010 ==

== ENCOUNTER → 2024-02-29 17:21 | Outpatient (BNV) | payer OTHER, SELFPAY | PROVIDERS: Admitting Provider Physician Assistant; Emergency Provider Emergency Medicine; PCP Internal Medicine; Visit Provider Clinical Nurse Specialist Psychiatric/Mental Health | DX: F33.0 Major depressive disorder, recurrent, mild (principal); F41.9 Anxiety disorder, unspecified; R42 Dizziness and giddiness; R55 Syncope and collapse | CPT/HCPCS: 99232 ==

== ENCOUNTER → 2024-02-29 17:21 | Outpatient (BNV) | payer MEDICAID, SELFPAY | PROVIDERS: Admitting Provider Physician Assistant; Emergency Provider Emergency Medicine; PCP Internal Medicine; Visit Provider Psychiatry & Neurology Neurology | DX: R55 Syncope and collapse (principal); R42 Dizziness and giddiness | CPT/HCPCS: 99222 ==

== ENCOUNTER → 2024-02-29 17:21 | Outpatient (BNV) | payer MEDICAID, SELFPAY | PROVIDERS: Admitting Provider Physician Assistant; Emergency Provider Emergency Medicine; PCP Internal Medicine; Visit Provider Family Medicine | DX: R42 Dizziness and giddiness (principal); R55 Syncope and collapse; Z91.89 Other specified personal risk factors, not elsewhere classified | CPT/HCPCS: 99223; 99232; 99239; G0180 ==

== ENCOUNTER 2024-03-09 12:40 | Outpatient (AMB) | payer MEDICAID, SELFPAY ==
[2024-03-09 12:43] VITALS: BP 97/56; PULSE 81; BMI 20.1
--- NOTE | 2024-03-09 12:43 | A.OFFVIS_ITS ---
Vital Signs 03/09/24 12:43 Height 5 ft 2 in Weight 109 lb 12.643 oz BMI 20.1 BP 97/56 L Blood Pressure Location Lt brachial Position Sitting Pulse 81 Intake Visit Reasons: Follwo up 6 months Intake Note: Diana presents in office today in 6 months follow up of mixed IBS and GERD. CC:Tavo states that she was seen in the ER last month s/p fall after feeling dizzy. She continues to have dizziness and c/o LLE, Rt shoulder and hand pain. 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 NAUSEA meperidine [MEPERIDINE] Allergy (Intermediate, Verified 03/09/24 12:51) NAUSEA morphine [MORPHINE] Allergy (Intermediate, Verified 03/09/24 12:51) PALPITATIONS, palpitation oxycodone [OXYCODONE] Allergy (Intermediate, Verified 03/09/24 12:51) PALPATATIONS, palpitations tramadol Allergy (Unknown, Verified 03/09/24 12:51) dizziness, nausea acetaminophen [From Percocet] Allergy (Verified 03/09/24 12:51) Shakiness HPI HPI Follwo up 6 months: Details: Assessment & Plan (1) GERD (gastroesophageal reflux disease): Code(s): K21.9 - Gastro-esophageal reflux disease without esophagitis Plan: Japanese #[id number], [id number] The procedure needs to be repeated in 5 years r/t the sesslie polyp. The procedure was well tolerated. The results were explained and the patient is ag reeable to the follow-up interval as stated. The bowel pattern has returned to normal. Education was provided to tell any 1st degree relatives about their findings to be sure that they are screened by age 45. Educated that they will be put on a recall list when it is time for their repeat scope but should they move out of state or away from the hospital they will need to remember along with their primary to repeat the procedure in a timely fashion to avoid any adverse complications. She says the RUQ pain has improved since she started paying more attention to her diet. She is trying to eat more greens, prunes and drinking a lot of water. She also continues on her fiber supplement and on omeprazole and famotidine for her GERD. I think it is great to control her issues through diet but if she finds this difficult any point she should let me know. Return office visit in 6 months. (2) Tubular adenoma of colon: Comment: 2022= SESSILE SERRATED POLYP, repeat in 5 years aeb Code(s): D12.6 - Benign neoplasm of colon, unspecified (3) Irritable bowel syndrome with both constipation and diarrhea: Code(s): K58.2 - Mixed irritable bowel syndrome (4) Epigastric pain: Comment: resolved with avoiding eggs and tuna Code(s): R10.13 - Epigastric pain Medications: Refilled famotidine 40 mg PO BEDTIME 90 tabs 3RF K21.9 - Gastro-esophageal reflux disease without esophagitis, R10.13 - Epigastric pain omeprazole 20 mg PO DAILY 30 days 30 caps 6RF K21.9 - Gastro-esophageal reflux disease without esophagitis sennosides (senna) 17.2 mg (2 x 8.6 mg) PO BEDTIME 180 tabs 2RF K58.2 - Mixed irritable bowel syndrome psyllium husk (Fiber (psyllium husk)) 0.4 grams PO BID 60 caps 6RF K58.2 - Mixed irritable bowel syndrome dicyclomine 40 mg (2 x 20 mg) PO QID 240 tabs 3RF K58.2 - Mixed irritable bowel syndrome TODAYS VISIT Japanese #Heron Live She is here today with her daughter who is quiet but supportive. She was hospitalized a couple of times for syncope/vertigo. She was referred for vestibular PT and some medications adjusted. She continues on her omeprazole in the morning famotidine at night, her fiber therapy senna, dicyclomine with good control of her GI conditions. Return office visit in 6 months. [facility] Medical History Migraine Anemia Diarrhea Depression Somatization disorder Migraine equivalent syndrome Anxiety Periodontal disease Primary osteoarthritis of right hand Fibromyalgia Surgical History History of esophagogastroduodenoscopy (EGD) History of lumpectomy Hx of section Hx of shoulder surgery Hx of colonoscopy Family History Mother HTN (hypertension) Sister Breast cancer Bone cancer Colon polyps Sister Osteoporosis Hypercholesteremia Colon polyps Social History Household Members: None Housing: Apartment Are you a primary career services coordinator to a significant other at home: No Do you presently have visiting nurse or other home services: Yes (CLEAT BLANKER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 Review of Systems Const Denies fatigue, Denies fever(s), Reports frequent falls, Denies night sweats, Denies poor appetite and Denies weight loss ENT Reports Normal hearing present, Denies dental pain, Denies dysphagia, Reports dizziness, Denies hearing loss, Denies mouth pain, Denies odynophagia, Denies throat swelling, Denies tongue swelling and Reports other (Dentition adequate) Card Reports no additional complaints Resp Reports no additional complaints GI Details: Denies abdominal pain, Denies melena, Denies bloating, Denies hematochezia, Reports constipation, Reports GI cramping, Denies dysphagia, Denies excessive flatus, Denies early satiety, Reports heartburn, Denies diarrhea, Denies nausea, Denies odynophagia, Denies vomiting and Denies hematemesis Skin/Breast Denies pruritus, Denies lesions, Denies rash and Denies jaundice Neuro Reports Normal hearing present, Denies Abnormal speech present, Reports dizziness and Reports frequent falls Endo Denies fatigue Aller/Immun Denies throat swelling and Denies tongue swelling Physical Exam Vital Signs: Last Vital Signs Pulse 81 03/09/24 12:43 BP 97/56 L 03/09/24 12:43 BMI result Body Mass Index 20.1 Const General: cooperative, no acute distress, well developed and well groomed Nutritional Appearance: well nourished and thin Orientation/consciousness: oriented to person, oriented to place and oriented to time Limitations: language barrier and ambulation with cane HEENT Head: Yes normocephalic and Yes atraumatic Eyes General: appearance normal, both eyes and all related structures Pupils: Equal, round and reactive pupils present Neck Neck: Yes normal visual inspection and Yes no lymphadenopathy Thyroid: Thyroid normal Resp Effort & Inspection: normal respiratory effort and able to speak in complete sentences Auscultation: clear to auscultation bilaterally Cardio Rate: regular rate Rhythm: regular rhythm Heart sounds: Normal, physiologic split S2 sound present Peripheral pulses: radial pulses present and posterior tibial pulses present GI Inspection: No distended and No Abdominal panniculus present Palpation (GI): Soft to palpation, nontender, no guarding, not rigid and No hepatosplenomegaly present Percussion: Yes normal to percussion Auscultation: normal bowel sounds Rectal Exam - Female: deferred Skin General skin exam: no rashes or lesions noted, turgor normal, skin not dry, no jaundice, No spider nevi and no striae Rashes: no rashes Nails: normal Neuro General: oriented to person, oriented to place and oriented to time Cranial nerves: Yes Equal, round and reactive pupils present and Yes Normal hearing present Speech: No Abnormal speech present Extrem General: Yes normal to inspection, No clubbing, No cyanosis and No edema Psych Appearance: grossly normal and well kempt Mental Status: mental status grossly normal Speech and movement: Normal speech and movement present Affect: normal affect Attitude: cooperative Thought process: Normal thought process present and not confabulating Thought content: Normal thought content present Insight: Limited insight present (Psych) Judgement: Limited judgement present (Psych) Assessment & Plan Assessment & Plan (1) GERD (gastroesophageal reflux disease): Code(s): K21.9 - Gastro-esophageal reflux disease without esophagitis Category: Medical (2) Irritable bowel syndrome with both constipation and diarrhea: Code(s): K58.2 - Mixed irritable bowel syndrome Category: Medical Plan Japanese #Heron Live She is here today with her daughter who is quiet but supportive. She was hospitalized a couple of times for syncope/vertigo. She was referred for vestibular PT and some medications adjusted. She continues on her omeprazole in the morning famotidine at night, her fiber therapy senna, dicyclomine with good control of her GI conditions. Return office visit in 6 months. Medications: New omeprazole 20 mg PO DAILY PRN 30 caps 6RF GI UPSET sennosides (senna) 17.2 mg (2 x 8.6 mg) PO BEDTIME PRN 60 tabs 6RF Constipation Refilled docusate sodium (Colace) 100 mg PO BID 30 days PRN 60 caps 3RF constipation psyllium husk (Fiber (psyllium husk)) 0.4 grams PO BID 60 caps 6RF K58.2 - Mixed irritable bowel syndrome dicyclomine 40 mg (2 x 20 mg) PO QID 240 tabs 3RF K58.2 - Mixed irritable bowel syndrome Coding Level of Care Code Est Pt Level 3 (27330) Diagnoses GERD (gastroesophageal reflux disease) K21.9 Irritable bowel syndrome with both constipation and diarrhea K58.2
== END 2024-03-09 13:08 | disposition home or self-care (01) ==
PROVIDERS: PCP Internal Medicine; Visit Provider Nurse Practitioner
DX: K21.9 Gastro-esophageal reflux disease without esophagitis (principal); K58.2 Mixed irritable bowel syndrome
CPT/HCPCS: 99213

== ENCOUNTER → 2024-03-09 12:40 | Outpatient (BNVA) | payer MEDICAID, SELFPAY | PROVIDERS: PCP Internal Medicine; Visit Provider Nurse Practitioner | DX: K21.9 Gastro-esophageal reflux disease without esophagitis (principal); K58.2 Mixed irritable bowel syndrome | CPT/HCPCS: 99212 ==

== ENCOUNTER 2024-03-17 11:12 | Outpatient (AMB) | payer MEDICAID, SELFPAY ==
--- NOTE | 2024-03-17 11:19 | MHC.OFFVIS ---
Intake Visit Reasons: O/V RT shoulder MRI rev. Intake Note: Diana a 59 year old female who presents today for an MRI review of right shoulder. Patient reports that she was hospitalized on 02/28/24 due to a recent fall. States she continues to have ongoing pain in her shoulder. Allergies codeine [CODEINE] Allergy (Intermediate, Verified 03/17/24 11:30) DIZZY/NAUSEA, nausea/vomiting escitalopram [From LEXAPRO] Allergy (Intermediate, Verified 03/17/24 11:30) ? NAUSEA meperidine [MEPERIDINE] Allergy (Intermediate, Verified 03/17/24 11:30) NAUSEA morphine [MORPHINE] Allergy (Intermediate, Verified 03/17/24 11:30) PALPITATIONS, palpitation oxycodone [OXYCODONE] Allergy (Intermediate, Verified 03/17/24 11:30) PALPATATIONS, palpitations tramadol Allergy (Unknown, Verified 03/17/24 11:30) dizziness, nausea acetaminophen [From Percocet] Allergy (Verified 03/17/24 11:30) Shakiness HPI HPI O/V RT shoulder MRI rev.: Details: 59-year-old female who returns to the office today for a MRI review of right shoulder. She is recently diagnosed with vertigo and sustained 2 falls and was hospitalized on 02/28/24 due to a recent fall. She continues to have ongoing pain in her shoulder that is aggravated with lifting her arm and reaching. ON LICENSE OF [facility] Medical History Migraine Anemia Diarrhea Depression Somatization disorder Migraine equivalent syndrome Anxiety Periodontal disease Primary osteoarthritis of right hand Fibromyalgia Surgical History History of esophagogastroduodenoscopy (EGD) History of lumpectomy Hx of section Hx of shoulder surgery Hx of colonoscopy Family History Mother HTN (hypertension) Sister Breast cancer Bone cancer Colon polyps Sister Osteoporosis Hypercholesteremia Colon polyps Social History Household Members: None Housing: Apartment Are you a primary client care representative to a significant other at home: No Do you presently have visiting nurse or other home services: Yes ([employer]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 She has pain located over the ac joint. She has pain with FF and ER. No weakness. NVI. Office Procedures Joint Injection/Drain Joint Injection/Drain Primary Site: right shoulder Prep: site was prepped using aseptic technique, ethochloride spray was applied and injection warnings given Injected: 80 mg of, DepoMedrol, with 8 mL of and 1% plain lidocaine Approach Used: anterolateral Procedure: The patient tolerated the procedure well and there was some relief with the local anesthesia Coding 12077 - Glenohumeral/Tronchanteric Bursa/Intraarticular Procedure code (CPT) selection complete Results Reviewed Results Reviewed: MR shoulder RT wo con IMPRESSION: 1. Attenuation of the supraspinatus and infraspinatus tendons, similar when compared to the prior examination. Findings could represent normal variation versus chronic partial tearing. No new rotator cuff tendon tear. 2. Interval acromioplasty. Mild acromioclavicular osteoarthritis. Fluid within the subacromial-subdeltoid bursa which may represent mild bursitis. Assessment & Plan Assessment & Plan (1) Right shoulder tendinitis: Code(s): M77.8 - Other enthesopathies, not elsewhere classified Category: Medical Plan We discussed options today which include steroid injection. They did consent to move forward with the left shoulder injection, which was tolerated well. I recommended rest, ice and elevation and OTC anti-inflammatories PRN for discomfort. If symptoms persist or worsens over the next 6-8 weeks, patient will contact the office, otherwise follow-up as needed. Patient Instructions: Scribed for Denilson Forman PA-C, by David Rutherford medical service technician, on 03/17/2024 at 11:15 AM EST.? I, Denilson Forman PA-C, have personally reviewed and agree with the information entered by the scribe. Coding Level of Care Code Est Pt Level 3 (95757) Diagnoses Right shoulder tendinitis M77.8 CPT Codes Coding - Joint 7: 05866 - Glenohumeral/Tronchanteric Bursa/Intraarticular ([id number])
== END 2024-03-17 12:02 | disposition home or self-care (01) ==
PROVIDERS: PCP Internal Medicine; Visit Provider Physician Assistant
DX: M77.8 Other enthesopathies, not elsewhere classified (principal)
CPT/HCPCS: 20610; 99213

== ENCOUNTER → 2024-03-17 11:12 | Outpatient (BNVA) | payer MEDICAID, SELFPAY | PROVIDERS: PCP Internal Medicine; Visit Provider Physician Assistant | DX: M77.8 Other enthesopathies, not elsewhere classified (principal) | CPT/HCPCS: 20610; 99212; J1010 ==

== ENCOUNTER 2024-03-23 10:25 | Outpatient (AMB) | payer MEDICAID, SELFPAY ==
[2024-03-23 10:26] VITALS: BP 108/60; PULSE 79; O2SAT 97; BMI 19.8
--- NOTE | 2024-03-23 10:26 | A.OFFVIS_ITS ---
Vital Signs 03/23/24 10:26 Height 5 ft 2 in Weight 108 lb 0.424 oz BMI 19.8 BP 108/60 Blood Pressure Location Lt brachial Position Sitting Pulse 79 Pulse Source Doppler Pulse Oximetry (%) 97 Oxygen Delivery Method Room Air Intake Visit Reasons: S/p pft Broadband Technician Required: Yes Broadband Technician Name: Zara Fernandez BoL.Chris Allergies codeine [CODEINE] Allergy (Intermediate, Verified 03/23/24 10:36) DIZZY/NAUSEA, nausea/vomiting escitalopram [From LEXAPRO] Allergy (Intermediate, Verified 03/23/24 10:36) ? NAUSEA meperidine [MEPERIDINE] Allergy (Intermediate, Verified 03/23/24 10:36) NAUSEA morphine [MORPHINE] Allergy (Intermediate, Verified 03/23/24 10:36) PALPITATIONS, palpitation oxycodone [OXYCODONE] Allergy (Intermediate, Verified 03/23/24 10:36) PALPATATIONS, palpitations tramadol Allergy (Unknown, Verified 03/23/24 10:36) dizziness, nausea acetaminophen [From Percocet] Allergy (Verified 03/23/24 10:36) Shakiness HPI HPI S/p pft: Details: 58-year-old lady, former minimal smoker, with underlying history of right breast cancer status post lumpectomy, chemo, and radiation in 2010 referred for evaluation of dyspnea on exertion that occurs after patient walks for several blocks.? She has had a recent negative cardiac workup.? Patient denies prior personal history of lung disease.? She has lots of first-degree relatives with asthma.? Patient has had COVID back in December of 2020, however her dyspnea symptoms predate but got worse after her COVID infection.? She denies any wheezing, cough, sputum production.? She has multiple environmental allergies. Her pulmonary function test showed mild decrease in diffusion capacity and otherwise has been unremarkable.? After the last office visit patient has completed her CT chest that is normal and pulmonary function test that is essentially normal with only minor defect in diffusion capacity that does not explain her symptoms. She was tried on Telegy with no significant changes in underlying symptomatology either. She continues on albuterol MDI as needed with some symptomatic benefit. Patient is also undergoing cardiac workup. [facility] Medical History Migraine Anemia Diarrhea Depression Somatization disorder Migraine equivalent syndrome Anxiety Periodontal disease Primary osteoarthritis of right hand Fibromyalgia Surgical History History of esophagogastroduodenoscopy (EGD) History of lumpectomy Hx of section Hx of shoulder surgery Hx of colonoscopy Family History Mother HTN (hypertension) Sister Breast cancer Bone cancer Colon polyps Sister Osteoporosis Hypercholesteremia Colon polyps Social History Household Members: None Housing: Apartment Are you a primary healthcare science specialist to a significant other at home: No Do you presently have visiting nurse or other home services: Yes ([employer]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 Review of Systems Const Denies daytime sleepiness, Denies excessive sweating, Denies fatigue, Denies fever(s), Denies lethargy, Denies malaise, Denies night sweats, Denies snoring and Denies weight loss Eyes Denies blurry vision and Denies itchy eyes ENT Denies nasal congestion, Denies post nasal drip, Denies sinus pain, Denies sinus pressure and Denies other ( Thrush) Card Denies chest pain, Denies pedal edema, Denies dyspnea, Denies orthopnea and Denies paroxysmal nocturnal dyspnea Resp Denies cough, Denies hemoptysis, Denies excessive phlegm production, Denies dyspnea, Denies snoring and Denies wheezing GI Denies abdominal pain and Denies heartburn Musc Denies myalgias, Denies arthralgias and Denies joint swelling Skin/Breast Denies rash Neuro Denies memory loss and Denies seizure-like activity Psych Denies abnormal sleep pattern, Denies anxiety and Denies memory loss Endo Denies excessive sweating, Denies fatigue and Denies heat intolerance Marko/Lymph Denies easy bruising Aller/Immun Denies itchy eyes, Denies seasonal rhinorrhea and Denies wheezing Physical Exam Vital Signs: Last Vital Signs Pulse 79 03/23/24 10:26 BP 108/60 03/23/24 10:26 Pulse Ox 97 03/23/24 10:26 Oxygen Delivery Method Room Air 03/23/24 10:26 BMI result Body Mass Index 19.8 Const General: no acute distress and alert Nutritional Appearance: not obese Orientation/consciousness: Other orientation findings ( oriented) HEENT Head: Yes atraumatic Eyes General: appearance normal, both eyes and all related structures Sclerae: sclerae normal EOM: EOMs intact bilaterally Neck Neck: Yes supple Lymphatic: no lymphadenopathy noted Resp Effort & Inspection: normal respiratory effort and no use of accessory muscles Auscultation: clear to auscultation bilaterally Cardio Rate: regular rate Rhythm: regular rhythm Heart sounds: no gallops, no murmurs and no rubs Skin General skin exam: other ( warm) Extrem General: No clubbing, No cyanosis and No edema Assessment & Plan Assessment & Plan (1) Dyspnea on exertion: Code(s): R06.00 - Dyspnea, unspecified Category: Medical Plan: Unclear etiology, workup is unrevealing. Continues to undergo cardiac workup. Albuterol MDI does provide symptomatic benefit. Continue with albuterol MDI. Coding Level of Care Code Est Pt Level 3 (28302) Diagnoses Dyspnea on exertion R06.00
== END 2024-03-23 10:47 | disposition home or self-care (01) ==
PROVIDERS: PCP Internal Medicine; Visit Provider Internal Medicine Pulmonary Disease
DX: R06.00 Dyspnea, unspecified (principal)
CPT/HCPCS: 99213

== ENCOUNTER → 2024-03-23 10:25 | Outpatient (BNVA) | payer MEDICAID, SELFPAY | PROVIDERS: PCP Internal Medicine; Visit Provider Internal Medicine Pulmonary Disease | DX: R06.00 Dyspnea, unspecified (principal) | CPT/HCPCS: 99212 ==

== ENCOUNTER 2024-04-20 10:57 | Outpatient (AMB) | payer MEDICAID, SELFPAY ==
--- NOTE | 2024-04-20 10:59 | A.OFFVIS_ITS ---
Intake Visit Reasons: OV-Neck, Shoulder Muscular pain Intake Note: Diana is a 59 year old female who presents today for a new visit with Physiatry of her right shoulder shoulder pain. She was last seen with Denilson for her right shoulder, an MRI was review and the shoulder was injected. Patient reports that this injection did not help her much. She has also tried physical therapy which did not improve her symtpoms either. She explains that she is feeling pain in the right shoulder that radiates to the collar bone and down the arm. She is unable to lift the arm or reach behind the back due to her pain. She has numbness and tingling in the right hand an fingers. She takes Naproxen for her shoulder but it is only mildly helpful. Allergies codeine [CODEINE] Allergy (Intermediate, Verified 04/20/24 11:06) DIZZY/NAUSEA, nausea/vomiting escitalopram [From LEXAPRO] Allergy (Intermediate, Verified 04/20/24 11:06) ? NAUSEA meperidine [MEPERIDINE] Allergy (Intermediate, Verified 04/20/24 11:06) NAUSEA morphine [MORPHINE] Allergy (Intermediate, Verified 04/20/24 11:06) PALPITATIONS, palpitation oxycodone [OXYCODONE] Allergy (Intermediate, Verified 04/20/24 11:06) PALPATATIONS, palpitations tramadol Allergy (Unknown, Verified 04/20/24 11:06) dizziness, nausea acetaminophen [From Percocet] Allergy (Verified 04/20/24 11:06) Shakiness Medication List - Last Reconciled 04/20/24 by Tanvi Garnett MD acetaminophen 500 mg PO Q4H PRN albuterol sulfate 90 mcg/actuation (ProAir HFA) 2 puffs inhalation Q6H PRN 30 days amitriptyline 100 mg PO BEDTIME ascorbate calcium (vitamin C) 500 mg PO MOWEFR buspirone 15 mg PO TID cholecalciferol (vitamin D3) 50 mcg PO DAILY clonazepam 0.5 mg PO BEDTIME clonazepam 1 mg PO DAILY cyanocobalamin (vitamin B-12) 100 mcg PO DAILY diclofenac sodium 1% 2 grams topical TID PRN dicyclomine 40 mg (2 x 20 mg) PO QID docusate sodium (Colace) 100 mg PO BID PRN 30 days ferrous sulfate 325 mg PO MOWEFR fluticasone propion-salmeterol 115-21 mcg/actuation (Advair HFA) 2 puffs inhalation BID loratadine 10 mg PO DAILY meclizine 25 mg orally every 8 hours as needed; melatonin 10 mg (2 x 5 mg) PO BEDTIME 30 days mirtazapine 30 mg PO BEDTIME naproxen 500 mg PO BID olanzapine 20 mg PO BEDTIME omeprazole 20 mg PO DAILY PRN prazosin 4 mg PO BEDTIME pregabalin 150 mg PO BID psyllium husk (Fiber (psyllium husk)) 0.4 grams PO BID ropinirole 0.5 mg (2 x 0.25 mg) PO TID 30 days sennosides (senna) 17.2 mg (2 x 8.6 mg) PO BEDTIME PRN sertraline 200 mg PO DAILY sumatriptan succinate 100 mg PO DAILY MRX1 PRN walker As directed HPI Comments Details: I met patient before for EMG (results below, normal). She was following with ortho for right shoulder pain, referred to Physiatry for second opinion. Points to right shoulder for source of pain. She fell in January and says it was worse after the fall. Last PT was before the fall. She did have injection in March, after the fall, though patient says she does not recall, she believes her last injection was before the fall. [facility] Medical History (Updated 04/20/24 @ 12:29 by Tanvi Garnett MD) Rotator cuff tendinitis Migraine Anemia Diarrhea Depression Somatization disorder Migraine equivalent syndrome Anxiety Periodontal disease Primary osteoarthritis of right hand Fibromyalgia Surgical History History of esophagogastroduodenoscopy (EGD) History of lumpectomy Hx of section Hx of shoulder surgery Hx of colonoscopy Family History Mother HTN (hypertension) Sister Breast cancer Bone cancer Colon polyps Sister Osteoporosis Hypercholesteremia Colon polyps Social History Household Members: None Housing: Apartment Are you a primary health care sanitary technician to a significant other at home: No Do you presently have visiting nurse or other home services: Yes ([employer]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 MSK: Inspection reveals appropriate head and neck positioning. No pain with palpation over the neck musculature. Cervical ROM was full. Spurling's sign negative. Limited right shoulder abduction and forward flexion due to pain. Empty can test is positive right. Drop arm test is negative. Speed's test is negative. Neer's test is positive right. Hawkin's test is positive right. Apprehension test and Relocation test are negative. Strength is 5/5 in all muscle groups tested. No increased tone noted. Neurological: Neurologic examination of the upper and lower extremities was nonfocal with intact sensation, muscle stretch reflexes and without focal motor deficits . Mcdermott?s negative bilaterally. Gait is non-antalgic without loss of balance. Results Reviewed Results Reviewed: 11/13/23 EMG IMPRESSION: 1. This is a normal study. 2. There is no electrodiagnostic evidence for median neuropathy, ulnar neuropathy, brachial plexopathy, or cervical radiculopathy. Ordering Physician: Diomedes Woodard MD Date of Service: 02/29/24 Procedure(s): CT cervical spine wo IV con Accession Number(s): [id number] cc: Umm Coley MD; Diomedes Woodard MD~ EXAMINATION: CT CERVICAL SPINE WITHOUT CONTRAST CLINICAL INFORMATION: Neck injury and pain COMPARISON: CT scan of cervical spine on 02/09/2021 TECHNIQUE: Multiple 2.0 mm axial images were obtained from base of skull to T1 levels without IV contrast enhancement. Sagittal and coronal 2.0 mm bone window images were reconstructed from axial image data. This CT examination was performed using dose optimization techniques as appropriate, variously including the following: *Automated exposure control *Adjustment of mA and/or kV according to patient size (this includes techniques or standardized protocols for targeted exams where dose is matched to indication/reason for exam; i.e. extremities or head) *Use of iterative reconstruction technique DLP: 198 mGy-cm FINDINGS: C1/C2: Bony structures are intact with normal alignment. There is no spinal stenosis. C2/C3: Bony structures are intact with normal alignment. There is no spinal stenosis. Bilateral C2/C3 neuroforamina are patent. Bilateral apophyseal joints are intact with normal alignment. C3/C4: Bony structures are intact with normal alignment. There is no spinal stenosis. Bilateral C3/C4 neuroforamina are patent. Bilateral apophyseal joints are intact with normal alignment. C4/C5: Bony structures are intact with normal alignment. There is no spinal stenosis. Bilateral C4/C5 neuroforamina are patent. Bilateral apophyseal joints are intact with normal alignment. C5/C6: Bony structures are intact with normal alignment. There is no spinal stenosis. Bilateral C5/C6 neuroforamina are patent. Bilateral apophyseal joints are intact with normal alignment. C6/C7: Bony structures are intact with normal alignment. There is no spinal stenosis. Bilateral C6/C7 neuroforamina are patent. Bilateral apophyseal joints are intact with normal alignment. C7/T1: Bony structures are intact with normal alignment. There is no spinal stenosis. Bilateral C7/T1 neuroforamina are patent. Bilateral apophyseal joints are intact with normal alignment. Ordering Physician: Sanya Ramos MD Date of Service: 08/09/22 Procedure(s): MR cervical spine wo/w con Accession Number(s): [id number] cc: Sanya Ramos MD~ EXAMINATION: MR BRAIN WITHOUT AND WITH CONTRAST MR CERVICAL SPINE WITHOUT AND WITH CONTRAST CLINICAL INFORMATION: Numbness and tingling of the left arm. Pain. COMPARISON: CTA head and neck from 08/08/2022. TECHNIQUE: MRI of the brain and cervical spine was obtained using routine sequences without and following the administration of 5 mL of Gadavist intravenous contrast. FINDINGS: Brain: No focal restricted diffusion is demonstrated to suggest acute or subacute cerebral ischemia. No evidence of acute or chronic hemorrhagic products on heme-sensitive imaging. Mild basal ganglia mineralization. Scattered periventricular and deep white matter T2 FLAIR hyperintensities consistent with mild underlying microangiopathy. The ventricles are normal in morphology and size. No abnormal mass effect. No midline shift. Normal appearance of the pituitary gland. Normal positioning of the cerebellar tonsils. Normal arterial and venous vascular flow voids are present. No abnormal contrast enhancement. Normal, homogeneous marrow signal. Mild mucosal thickening of the paranasal sinuses. No signal abnormalities within the mastoids. Cervical Spine: Straightening of the normal cervical lordosis. Otherwise, normal anatomic alignment. Nonenhancing T2 hyperintense lesion within the C4 vertebral body suggestive of an atypical hemangioma. Otherwise, normal homogeneous marrow signal throughout. No additional suspicious marrow edema. The vertebral body heights are maintained. Mild multilevel disc desiccation. Otherwise, the intervertebral discs are of normal height. No demonstrated spinal cord signal abnormalities. No abnormal contrast enhancement. Limited evaluation of the soft tissues of the neck without demonstrated abnormalities. The flow voids of the major cervical vessels are maintained. Normal appearance of the cervicomedullary junction and visualized posterior fossa. SPINAL LEVELS: C2-C3: Normal annular contour. There is no uncovertebral joint arthropathy. There is mild bilateral facet joint arthropathy. There is no neural foraminal stenosis. There is no spinal canal stenosis. C3-C4: Mild disc-osteophyte complex. There is no uncovertebral joint arthropathy. There is mild bilateral facet joint arthropathy. There is no neural foraminal stenosis. There is no spinal canal stenosis. C4-C5: Mild disc-osteophyte complex. There is no uncovertebral joint arthropathy. There is mild bilateral facet joint arthropathy. There is no neural foraminal stenosis. There is no spinal canal stenosis. C5-C6: Mild disc-osteophyte complex. There is no uncovertebral joint arthropathy. There is no facet joint arthropathy. There is no neural foraminal stenosis. There is no spinal canal stenosis. C6-C7: Normal annular contour. There is no uncovertebral joint arthropathy. There is no facet joint arthropathy. There is no neural foraminal stenosis. There is no spinal canal stenosis. C7-T1: Normal annular contour. There is no uncovertebral joint arthropathy. There is no facet joint arthropathy. There is no neural foraminal stenosis. There is no spinal canal stenosis. MR/MR cervical spine wo/w con IMPRESSION: 1. No acute intracranial abnormalities. No abnormal intracranial enhancement. 2. Minimal underlying microangiopathy. 3. No demonstrated cervical spinal canal stenosis or nerve root compression. No abnormal enhancement of the cervical spinal cord. CT/CT cervical spine wo IV con IMPRESSION: 1. Unchanged Normal CT scan of the cervical spine. 2. No cervical fracture or dislocation is seen. Ordering Physician: Denilson Forman PA-C Date of Service: 01/12/24 Procedure(s): MR shoulder RT wo con Accession Number(s): [id number] cc: Umm Coley MD; Denilson Forman PA-C~ EXAMINATION: MR SHOULDER WITHOUT CONTRAST, RIGHT CLINICAL INFORMATION: Right shoulder pain and decreased range of motion. Surgery for rotator cuff impingement and adhesive capsulitis in 2016. COMPARISON: Right shoulder radiographs dated 02/11/2023 and MRI dated 10/23/2016. TECHNIQUE: MRI of the shoulder without contrast was performed on a high-field scanner. FINDINGS: ROTATOR CUFF: Attenuation of the supraspinatus and infraspinatus tendons is redemonstrated, similar when compared to the prior examination. Findings could represent normal variation versus chronic partial tearing. No new rotator cuff tendon tear. No muscle atrophy or fatty infiltration. BICEPS: Intact. CORACOACROMIAL ARCH: The undersurface of the acromion is attenuated, consistent with interval acromioplasty. Mild acromioclavicular osteoarthritis. Fluid within the subacromial-subdeltoid bursa which may represent mild bursitis. LABRUM/CAPSULE: No labral tear. Intact joint capsule. GLENOHUMERAL JOINT/MARROW: Unremarkable. MR/MR shoulder RT wo con IMPRESSION: 1. Attenuation of the supraspinatus and infraspinatus tendons, similar when compared to the prior examination. Findings could represent normal variation versus chronic partial tearing. No new rotator cuff tendon tear. 2. Interval acromioplasty. Mild acromioclavicular osteoarthritis. Fluid within the subacromial-subdeltoid bursa which may represent mild bursitis. I reviewed records from the following: Ortho Hand surgery Assessment & Plan Assessment & Plan (1) Rotator cuff tendinitis: Code(s): M75.80 - Other shoulder lesions, unspecified shoulder Category: Medical Qualifiers: Laterality: right Qualified Code(s): M75.81 - Other shoulder lesions, right shoulder Plan Patient presenting with RTC symptoms though no definite tears on MRI. I don't think her symptoms are coming from cervical spine, and her past CT and MRI of cspine are unremarkable. She has undergone conservative management including adequate PT/rehab and injections. Discussed with Pita. We agreed that it would be best that she is seen by Dr. Stephen. Assessment and plan discussed with patient, and patient was agreeable. All questions were answered thoroughly. Tanvi Garnett MD, RADHA Board Certified, [place] [employer] and Rehabilitation (ABPMR) Board Certified, [place] [employer] Electrodiagnostic [employer] (ABEM) Coding Level of Care Code Est Pt Level 4 (70402) Diagnoses Tendinitis of right rotator cuff M75.81 Laterality: right
== END 2024-04-20 13:04 | disposition home or self-care (01) ==
PROVIDERS: PCP Internal Medicine; Visit Provider Physical Medicine & Rehabilitation
DX: M75.81 Other shoulder lesions, right shoulder (principal)
CPT/HCPCS: 99213

== ENCOUNTER → 2024-04-20 10:57 | Outpatient (BNVA) | payer MEDICAID, SELFPAY | PROVIDERS: PCP Internal Medicine; Visit Provider Physical Medicine & Rehabilitation | DX: M75.81 Other shoulder lesions, right shoulder (principal) | CPT/HCPCS: 99212 ==

== ENCOUNTER → 2024-04-21 11:29 | Outpatient (REF) | payer MEDICAID, SELFPAY ==
--- NOTE | 2024-04-21 11:34 | HM_ITS ---
* Total monitoring time 2 days. * Underlying rhythm is sinus with an average rate of 77/Min. * Rare supraventricular ectopy. * No significant pauses or AV blocks. * Patient markers used in association with sinus tachycardia. * Dizziness, chest/head pain, tiredness, fatigue correlates with sinus tachycardia. MTDD
== END ==
LOC: HO.CARD 11:29
PROVIDERS: PCP Internal Medicine; Visit Provider Registered Nurse
DX: R55 Syncope and collapse (principal)
CPT/HCPCS: 93225

== ENCOUNTER → 2024-04-21 11:34 | Outpatient (BNV) | payer MEDICAID, SELFPAY | PROVIDERS: PCP Internal Medicine; Visit Provider Internal Medicine | DX: R00.0 Tachycardia, unspecified (principal) | CPT/HCPCS: 93227 ==

== ENCOUNTER 2024-04-29 08:32 | Outpatient (REF) | payer MEDICAID, SELFPAY ==
[2024-04-29 08:57] LABS: MANUAL DIFF FLAG NO
[2024-04-29 09:19] LABS: Basophils Percent Auto 0.6 % (0-2); Eosinophils Absolute Auto 0.1 X10*3/uL (0.0-0.4); Eosinophils Percent Auto 1.4 % (0-4); Hematocrit 38.8 % (37.0-47.0); Hemoglobin 12.9 g/dl (12.0-16.0); Imm Gran Abs Auto 0.01 X10*3/uL (0.00-0.03); Imm Gran Pct Auto 0.2 % (0.0-0.4); Lymphocytes Absolute Auto 1.9 X10*3/uL (1.2-4.9); Lymphocytes Percent Auto 36.1 % (20-40); Mean Corpuscular HGB Conc 33.2 g/dl (31.0-35.0); Mean Corpuscular Hemoglobin 30.8 pg (27.0-33.0); Mean Corpuscular Volume 92.6 fL (80.0-98.0); Mean Platelet Volume 9.1 fL (9.4-12.3); Monocytes Absolute Auto 0.3 X10*3/uL (0.1-1.2); Monocytes Percent Auto 6.1 % (2-11); Neutrophils Absolute Auto 2.9 x10*3/uL (2.0-8.3); Neutrophils Percent Auto 55.6 % (45-73); Platelet Count 307 X10*3/uL (160-400); Red Blood Count 4.19 X10*6/uL (4.20-5.50); Red Cell Distribution Width 14.2 % (11.0-16.0); White Blood Count 5.1 X10*3/uL (4.8-10.8)
[2024-04-29 10:09] LABS: Alanine Aminotransferase 22 U/L (0-31); Albumin Level 4.4 g/dL (3.5-5.0); Alkaline Phosphatase 118 U/L (39-117); Anion Gap 13 (12-20); Aspartate Amino Transferase 25 U/L (5-31); Bilirubin Total 0.2 mg/dL (0.0-1.0); Blood Urea Nitrogen 19 mg/dL (9-16); Calcium 9.7 mg/dL (8.4-10.2); Carbon Dioxide 28 mmol/L (22-29); Chloride 106 mmol/L (96-108); Cholesterol 213 mg/dL (<200); Estimated Glomerular Filt Rate 55; Glucose Fasting 81 mg/dL (60-99); HDL Cholesterol 78 mg/dL (>40); LDL Cholesterol Calculated 106 mg/dL (<100); Potassium 3.8 mmol/L (3.3-5.1); Sodium 143 mmol/L (135-145); Total Protein 7.4 g/dL (6.5-8.0); Triglycerides 146 mg/dL (<150)
== END 2024-04-29 08:33 | disposition home or self-care (01) ==
LOC: HO.LAB 08:32
PROVIDERS: PCP Internal Medicine; Visit Provider Nurse Practitioner Psychiatric/Mental Health
DX: Z79.899 Other long term (current) drug therapy (principal)
CPT/HCPCS: 36415; 80053; 80061; 85025

== ENCOUNTER 2024-05-03 10:18 | Outpatient (REF) | payer MEDICAID, SELFPAY ==
--- NOTE | ~2024-05-03 | XR_ITS ---
EXAMINATION: XR ABDOMEN COMPLETE CLINICAL INDICATION: History of right upper quadrant pain, check x-ray to rule out stool burden. Technologist states artifacts out of way as much as possible. Best possible images obtained. COMPARISON: April 29, 2016 x-ray abdomen, 07/14/2023 CT abdomen and pelvis. TECHNIQUE: 2 views of the abdomen. FINDINGS: [id number] amount of stool in the colon. Gas is scattered throughout moderately distended colon with a paucity of gas in the rectosigmoid colon. Prominent air-filled loops of small bowel. Degenerative changes in the lumbar spine XR/XR abdomen min 2V IMPRESSION: [id number] amount of stool in the colon. Gas is scattered throughout moderately distended colon with a paucity of gas in the rectosigmoid colon. Prominent air-filled loops of small bowel.
[2024-05-03 10:41] LABS: MANUAL DIFF FLAG NO
[2024-05-03 11:34] LABS: Basophils Percent Auto 0.4 % (0-2); Eosinophils Percent Auto 0.6 % (0-4); Hematocrit 40.5 % (37.0-47.0); Hemoglobin 13.6 g/dl (12.0-16.0); Imm Gran Abs Auto 0.02 X10*3/uL (0.00-0.03); Imm Gran Pct Auto 0.4 % (0.0-0.4); Lymphocytes Absolute Auto 1.4 X10*3/uL (1.2-4.9); Lymphocytes Percent Auto 27.2 % (20-40); Mean Corpuscular HGB Conc 33.6 g/dl (31.0-35.0); Mean Corpuscular Hemoglobin 30.9 pg (27.0-33.0); Mean Platelet Volume 9.4 fL (9.4-12.3); Monocytes Absolute Auto 0.3 X10*3/uL (0.1-1.2); Neutrophils Absolute Auto 3.4 x10*3/uL (2.0-8.3); Neutrophils Percent Auto 65.4 % (45-73); Platelet Count 297 X10*3/uL (160-400); Red Cell Distribution Width 13.8 % (11.0-16.0); White Blood Count 5.1 X10*3/uL (4.8-10.8)
[2024-05-03 12:14] LABS: Alanine Aminotransferase 26 U/L (0-31); Albumin Level 4.6 g/dL (3.5-5.0); Alkaline Phosphatase 124 U/L (39-117); Amylase 86 U/L (28-100); Anion Gap 15 (12-20); Aspartate Amino Transferase 25 U/L (5-31); Bilirubin Direct 0.1 mg/dL (0.0-0.5); Bilirubin Total 0.3 mg/dL (0.0-1.0); Blood Urea Nitrogen 13 mg/dL (9-16); Calcium 10.3 mg/dL (8.4-10.2); Carbon Dioxide 29 mmol/L (22-29); Chloride 104 mmol/L (96-108); Estimated Glomerular Filt Rate > 60; Glucose Random 71 mg/dL (60-115); Lipase 29 U/L (8-78); Potassium 4.7 mmol/L (3.3-5.1); Sodium 143 mmol/L (135-145); Total Protein 7.5 g/dL (6.5-8.0)
== END 2024-05-03 10:19 | disposition home or self-care (01) ==
LOC: HO.XRAY 10:18
PROVIDERS: PCP Registered Nurse; Visit Provider Registered Nurse
DX: R10.11 Right upper quadrant pain (principal); K59.00 Constipation, unspecified
CPT/HCPCS: 36415; 74019; 80048; 80076; 82150; 83690; 85025

== ENCOUNTER 2024-05-09 12:16 | Outpatient (AMB) | payer MEDICAID, SELFPAY ==
--- NOTE | 2024-05-09 12:24 | MHC.OFFVIS ---
Intake Visit Reasons: O/V RT shoulder pain Intake Note: Diana a 59 year old female who presents today for a follow up for her right shoulder tendinitis. She was referred by Dr Torres. Patient reports she is still having continued pain with and without movement. She has tried physical therapy and a right shoulder injection on 03/17/24 which provided no relief. Java Technical Manager Required: Yes Java Technical Manager Language: Zambian Allergies codeine [CODEINE] Allergy (Intermediate, Verified 05/09/24 12:30) DIZZY/NAUSEA, nausea/vomiting escitalopram [From LEXAPRO] Allergy (Intermediate, Verified 05/09/24 12:30) ? NAUSEA meperidine [MEPERIDINE] Allergy (Intermediate, Verified 05/09/24 12:30) NAUSEA morphine [MORPHINE] Allergy (Intermediate, Verified 05/09/24 12:30) PALPITATIONS, palpitation oxycodone [OXYCODONE] Allergy (Intermediate, Verified 05/09/24 12:30) PALPATATIONS, palpitations tramadol Allergy (Unknown, Verified 05/09/24 12:30) dizziness, nausea acetaminophen [From Percocet] Allergy (Verified 05/09/24 12:30) Shakiness HPI HPI O/V RT shoulder pain: Details: Diana a 59 year old female who presents today for a follow up for her right shoulder tendinitis. She was referred by Dr Torres. Patient reports she is still having continued pain with and without movement. She has tried physical therapy and a right shoulder injection on 03/17/24 which provided no relief. [facility] Medical History Rotator cuff tendinitis Migraine Anemia Diarrhea Depression Somatization disorder Migraine equivalent syndrome Anxiety Periodontal disease Primary osteoarthritis of right hand Fibromyalgia Surgical History History of esophagogastroduodenoscopy (EGD) History of lumpectomy Hx of section Hx of shoulder surgery Hx of colonoscopy Family History Mother HTN (hypertension) Sister Breast cancer Bone cancer Colon polyps Sister Osteoporosis Hypercholesteremia Colon polyps Social History Household Members: None Housing: Apartment Are you a primary respiratory care instructor to a significant other at home: No Do you presently have visiting nurse or other home services: Yes ([employer]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 I am not convinced that arthroscopy would be helpful. I think it is reasonable to see pain management and they may be able to offier nerve injection which could prevent to need for a surgery with low liklihood of success. Orders: Referrals Pain Management Referral M75.81 - Other shoulder lesions, right shoulder Coding Level of Care Code Est Pt Level 4 (81331) Diagnoses Tendinitis of right rotator cuff M75.81 Laterality: right
== END 2024-05-09 13:07 | disposition home or self-care (01) ==
PROVIDERS: PCP Internal Medicine; Supervising Provider Internal Medicine; Visit Provider Orthopaedic Surgery
DX: M75.81 Other shoulder lesions, right shoulder (principal)
CPT/HCPCS: 99213

== ENCOUNTER → 2024-05-09 12:16 | Outpatient (BNVA) | payer MEDICAID, SELFPAY | PROVIDERS: PCP Internal Medicine; Visit Provider Orthopaedic Surgery | DX: M75.81 Other shoulder lesions, right shoulder (principal) | CPT/HCPCS: 99212 ==

== ENCOUNTER 2024-05-10 09:14 | Emergency (ER) | payer MEDICAID, SELFPAY ==
--- NOTE | ~2024-05-10 | CT_ITS ---
EXAMINATION: CT HEAD WITHOUT CONTRAST CLINICAL INFORMATION: Left-sided body pain and numbness since last night COMPARISON: 02/29/2024 TECHNIQUE: Contiguous axial imaging was performed from the skull base to vertex without intravenous administration of contrast. This CT examination was performed using dose optimization techniques as appropriate, variously including the following: *Automated exposure control *Adjustment of mA and/or kV according to patient size (this includes techniques or standardized protocols for targeted exams where dose is matched to indication/reason for exam; i.e. extremities or head) *Use of iterative reconstruction technique DLP: 612 mGy-cm FINDINGS: Ko-white matter differentiation is preserved. No evolving infarct, mass lesion, mass effect, midline shift, hemorrhage or extra-axial fluid collections are identified. Basal ganglia calcifications are seen. Intraorbital structures are unremarkable. Small polypoid density identified left ethmoid sinus. Remaining sinuses and mastoids are clear. Bony structures are intact. Soft tissues are unremarkable. CT/CT head/brain wo IV con IMPRESSION: No acute intracranial pathology.
[2024-05-10 09:53] VITALS: BP 116/68; PULSE 82; RESP 16; TEMP 37; O2SAT 99; BMI 19.4
--- NOTE | 2024-05-10 10:03 | ECG_ITS ---
Test Reason : dizzy Blood Pressure : / mmHG Vent. Rate : 067 BPM Atrial Rate : 067 BPM P-R Int : 142 ms QRS Dur : 078 ms QT Int : 358 ms P-R-T Axes : 061 062 043 degrees QTc Int : 378 ms Normal sinus rhythm Normal ECG When compared with ECG of 29-FEB-2024 10:16, No significant change was found Referred By: Generic ED Physician Electronically Signed By:Carlos Alberto Pelaez
[2024-05-10 10:28] LABS: MANUAL DIFF FLAG NO
[2024-05-10 10:32] LABS: Basophils Percent Auto 0.7 % (0-2); Eosinophils Percent Auto 0.7 % (0-4); Hematocrit 40.5 % (37.0-47.0); Hemoglobin 13.8 g/dl (12.0-16.0); Imm Gran Abs Auto 0.01 X10*3/uL (0.00-0.03); Imm Gran Pct Auto 0.2 % (0.0-0.4); Lymphocytes Absolute Auto 1.5 X10*3/uL (1.2-4.9); Lymphocytes Percent Auto 32.8 % (20-40); Mean Corpuscular HGB Conc 34.1 g/dl (31.0-35.0); Mean Corpuscular Hemoglobin 31.3 pg (27.0-33.0); Mean Corpuscular Volume 91.8 fL (80.0-98.0); Mean Platelet Volume 8.6 fL (9.4-12.3); Monocytes Absolute Auto 0.2 X10*3/uL (0.1-1.2); Monocytes Percent Auto 4.9 % (2-11); Neutrophils Absolute Auto 2.7 x10*3/uL (2.0-8.3); Neutrophils Percent Auto 60.7 % (45-73); Platelet Count 293 X10*3/uL (160-400); Red Blood Count 4.41 X10*6/uL (4.20-5.50); Red Cell Distribution Width 13.3 % (11.0-16.0); White Blood Count 4.5 X10*3/uL (4.8-10.8)
[2024-05-10 10:47] LABS: Anion Gap 9 (12-20); Blood Urea Nitrogen 9 mg/dL (9-16); Calcium 10.1 mg/dL (8.4-10.2); Carbon Dioxide 30 mmol/L (22-29); Chloride 105 mmol/L (96-108); Creatinine Clr Calc Pharmacy 54.7; Estimated Glomerular Filt Rate > 60; Glucose Random 81 mg/dL (60-115); Potassium 4.3 mmol/L (3.3-5.1); Sodium 140 mmol/L (135-145)
--- NOTE | 2024-05-10 12:06 | ED.GENADULT ---
HPI - General Adult General Chief complaint: Dizziness Stated complaint: whole L side numb Time Seen by Provider: 05/10/24 12:06 History of Present Illness ED Provider: Vanessa TAVARES narrative: The patient is a 59-year-old female who says that this morning at around 03:00 she developed pain on the left side of her body that was most apparent on the left side of her neck but which she said affected her left arm and her left leg. She also has been feeling dizzy. She says that she contacted her primary care doctor's office and was advised to come to the emergency room for evaluation of the symptoms. Patient says that she came to the emergency department in January of this year with a complaint of dizziness and syncope and was admitted to the hospitalist service. She says that she has not been doing well since that hospitalization. She says she is going to outpatient rehab for vertigo. No fever, sweats, chills. Related Data Home Medications ?Medication ?Instructions ?Recorded ?Confirmed buspirone 15 mg tablet 15 mg PO TID 11/08/20 04/20/24 olanzapine 20 mg tablet 20 mg PO BEDTIME 11/08/20 04/20/24 prazosin 2 mg capsule 4 mg PO BEDTIME 11/08/20 04/20/24 sertraline 100 mg tablet 200 mg PO DAILY 11/08/20 04/20/24 loratadine 10 mg tablet 10 mg PO DAILY 07/16/21 04/20/24 cyanocobalamin (vitamin B-12) 100 100 mcg PO DAILY 05/29/22 04/20/24 mcg tablet cholecalciferol (vitamin D3) 50 50 mcg PO DAILY 07/01/22 04/20/24 mcg (2,000 unit) capsule diclofenac sodium 1 % topical gel 2 g topical TID PRN Pain 07/29/22 04/20/24 amitriptyline 100 mg tablet 100 mg PO BEDTIME 10/22/22 04/20/24 pregabalin 150 mg capsule 150 mg PO BID 04/14/23 04/20/24 acetaminophen 500 mg tablet 500 mg PO Q4H PRN Pain 02/29/24 04/20/24 ascorbate calcium (vitamin C) 500 500 mg PO MOWEFR 02/29/24 04/20/24 mg tablet ferrous sulfate 325 mg (65 mg 325 mg PO MOWEFR 02/29/24 04/20/24 iron) tablet fluticasone propionate 115 2 puff inhalation BID 02/29/24 04/20/24 mcg-salmeterol 21 mcg/actuation HFA inhaler (Advair HFA) sumatriptan succinate 100 mg tablet 100 mg PO DAILY MRX1 PRN migraine 02/29/24 04/20/24 headache meclizine 25 mg tablet 25 mg PO .COMPLEX 03/23/24 04/20/24 Previous Rx's ?Medication ?Instructions ?Recorded albuterol sulfate 90 mcg/actuation 2 puff inhalation Q6H PRN for 08/06/22 aerosol inhaler (ProAir HFA) wheezing 30 days #8.5 ea ropinirole 0.25 mg tablet 0.5 mg (2 x 0.25 mg) PO TID 30 01/17/24 days #180 tabs naproxen 500 mg tablet 500 mg PO BID #60 tabs 01/18/24 clonazepam 0.5 mg tablet 0.5 mg PO BEDTIME #1 tab 03/02/24 clonazepam 1 mg tablet 1 mg PO DAILY #1 tab 03/02/24 mirtazapine 30 mg tablet 30 mg PO BEDTIME #30 tabs 03/02/24 walker #1 ea 03/02/24 dicyclomine 20 mg tablet 40 mg (2 x 20 mg) PO QID #240 tabs 03/09/24 docusate sodium 100 mg capsule 100 mg PO BID PRN constipation 30 03/09/24 (Colace) days #60 caps omeprazole 20 mg capsule,delayed 20 mg PO DAILY PRN GI UPSET #30 03/09/24 release caps psyllium husk 0.4 gram capsule 0.4 g PO BID #60 caps 03/09/24 (Fiber (psyllium husk)) sennosides 8.6 mg tablet (senna) 17.2 mg (2 x 8.6 mg) PO BEDTIME 03/09/24 PRN Constipation #60 tabs melatonin 5 mg tablet 10 mg (2 x 5 mg) PO BEDTIME Sleep 04/18/24 30 days #60 tabs acetaminophen 325 mg capsule 650 mg (2 x 325 mg) PO Q6H PRN 05/10/24 pain #20 caps ibuprofen 400 mg tablet 400 mg PO Q6H PRN pain #14 tabs 05/10/24 Allergies Allergy/AdvReac Type Severity Reaction Status Date / Time codeine [CODEINE] Allergy Intermediate DIZZY/NAUSEA, Verified 05/10/24 09:59 nausea/vomiting escitalopram [From LEXAPRO] Allergy Intermediate ? NAUSEA Verified 05/10/24 09:59 meperidine [MEPERIDINE] Allergy Intermediate NAUSEA Verified 05/10/24 09:59 morphine [MORPHINE] Allergy Intermediate PALPITATIONS, Verified 05/10/24 09:59 palpitation oxycodone [OXYCODONE] Allergy Intermediate PALPATATIONS, Verified 05/10/24 09:59 palpitations tramadol Allergy Unknown dizziness, Verified 05/10/24 09:59 nausea acetaminophen [From Percocet] Allergy Shakiness Verified 05/10/24 09:59 Review of Systems Review of Systems: Yes all other systems are reviewed and are negative PMFSH Past Medical History Medical History Rotator cuff tendinitis Migraine Anemia Diarrhea Depression Somatization disorder Migraine equivalent syndrome Anxiety Periodontal disease Primary osteoarthritis of right hand Fibromyalgia Surgical History History of esophagogastroduodenoscopy (EGD) History of lumpectomy Hx of section Hx of shoulder surgery Hx of colonoscopy Family History Family History Mother HTN (hypertension) Sister Breast cancer Bone cancer Colon polyps Sister Osteoporosis Hypercholesteremia Colon polyps Social History Social History Household Members: None Housing: Apartment Are you a primary home care assistant to a significant other at home: No Do you presently have visiting nurse or other home services: Yes ([employer]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 She does not appear in any distress. HENMT Other: Face is symmetrical. Mucous membranes are moist. The tongue is midline. Eyes Other: Pupils are round, equal, and reactive to light. Extraocular movements are intact. Conjunctivae are clear. Neck Other: No marked neck tenderness. No swelling. No JVD. Resp Effort & Inspection: normal respiratory effort Auscultation: clear to auscultation bilaterally Cardio Rate: regular rate Rhythm: regular rhythm Heart sounds: S1 normal heart sound present and S2 normal heart sound present GI Other: Abdomen was flat and soft Skin Other: Skin is dry and unremarkable Neuro Other: The patient is awake and alert with a normal mental status. Face is symmetrical. Eye movements are normal. Speech is clear. She has intact strength in all 4 extremities. There is no pronator drift. She has intact reflexes at the knees and ankles. She seems neurologically intact. Extrem Other: No peripheral edema. No calf swelling or tenderness. Good pulses in both feet. Medical Decision Making Medical Decision Making MDM Narrative: The patient is a 59-year-old female who presents complaining of left-sided body discomfort that she says started at 03:00 this morning. Her description of the symptoms is not highly suggestive of either a stroke syndrome or an acute coronary syndrome. She has not showing any obvious neurological deficits on her exam. I suspect that this is some kind of musculoskeletal pain. At triage a head CT has been ordered. This was normal. An EKG has been done which was also normal. CBC, basic metabolic panel, and troponin were unremarkable. I explained to the patient that I did not really have a good explanation for her symptoms but that I had a very low suspicion for either a stroke or heart attack or similarly acutely dangerous process. Think she may be discharged to follow up with her regular doctors. Lab Data 05/10/24 10:25 05/10/24 10:25 Labs: Lab Results 05/10/24 Range/Units 10:25 WBC 4.5 L (4.8-10.8) X10*3/uL RBC 4.41 (4.20-5.50) X10*6/uL Hgb 13.8 (12.0-16.0) g/dl Hct 40.5 (37.0-47.0) % MCV 91.8 (80.0-98.0) fL MCH 31.3 (27.0-33.0) pg MCHC 34.1 (31.0-35.0) g/dl RDW 13.3 (11.0-16.0) % Plt Count 293 (160-400) X10*3/uL MPV 8.6 L (9.4-12.3) fL Immature Gran % (Auto) 0.2 (0.0-0.4) % Neut % (Auto) 60.7 (45-73) % Lymph % (Auto) 32.8 (20-40) % [place] % (Auto) 4.9 (2-11) % Eos % (Auto) 0.7 (0-4) % Baso % (Auto) 0.7 (0-2) % Lymph # (Auto) 1.5 (1.2-4.9) X10*3/uL [place] # (Auto) 0.2 (0.1-1.2) X10*3/uL Eos # (Auto) 0.0 (0.0-0.4) X10*3/uL Baso # (Auto) 0.0 (0.0-0.2) X10*3/uL Abs Immat Gran (auto) 0.01 (0.00-0.03) X10*3/uL Absolute Neuts (auto) 2.7 (2.0-8.3) x10*3/uL Absolute Nucleated RBC 0.000 (0.0-0.012) X10*3/uL Nucleated RBC % (auto) 0.0 (0.0-0.2) /100WBC Sodium 140 (135-145) mmol/L Potassium 4.3 (3.3-5.1) mmol/L Chloride 105 (96-108) mmol/L Carbon Dioxide 30 H (22-29) mmol/L Anion Gap 9 L (12-20) BUN 9 (9-16) mg/dL Creatinine 0.82 (0.5-1.4) mg/dL Estim Creat Clear Calc 54.7 Estimated GFR > 60 Random Glucose 81 (60-115) mg/dL Calcium 10.1 (8.4-10.2) mg/dL Troponin I High Sens < 2.7 (<3.5-17.0) ng/L Discharge Plan Discharge Clinical Impression: Pain of left side of body Patient Disposition: Home, Self-Care Additional Instructions: Your testing in the emergency room today is very reassuring. I do not think your symptoms represent a stroke or heart attack. You may use acetaminophen and/or ibuprofen as needed for discomfort. Please follow up soon with your regular doctor for further management of this pain. Also follow up with your neurologist. Return to the emergency room if significantly worse. Prescriptions: New acetaminophen 325 mg capsule 650 mg PO Q6H PRN (Reason: pain) Qty: 20 0RF ibuprofen 400 mg tablet 400 mg PO Q6H PRN (Reason: pain) Qty: 14 0RF No Action ropinirole 0.25 mg tablet 0.5 mg PO TID 30 Days Qty: 180 3RF Rx Instructions: take in the evening naproxen 500 mg tablet 500 mg PO BID Qty: 60 3RF melatonin 5 mg tablet 10 mg PO BEDTIME 30 Days Qty: 60 6RF fluticasone propion-salmeterol [Advair HFA] 115-21 mcg/actuation HFA aerosol inhaler 2 puff INHALATION BID sumatriptan succinate 100 mg tablet 100 mg PO DAILY MRX1 PRN (Reason: migraine headache) Rx Instructions: 100 mg orally at onset of headache, may repeat in 2 hrs PRN; max 2 tabs per day or 4 tabs/week (may take with Naproxen 440mg or Tylenol 1000mg) ferrous sulfate 325 mg (65 mg iron) tablet 325 mg PO MOWEFR ascorbate calcium (vitamin C) 500 mg tablet 500 mg PO MOWEFR Rx Instructions: 500 mg orally 3 x's per week on Mon-Wed-Fri (take w/ ferrous sulfate). acetaminophen 500 mg Tablet 500 mg PO Q4H PRN (Reason: Pain) clonazepam 0.5 mg Tablet 0.5 mg PO BEDTIME Qty: 1 0RF clonazepam 1 mg Tablet 1 mg PO DAILY Qty: 1 0RF mirtazapine 30 mg Tablet 30 mg PO BEDTIME Qty: 30 0RF Rx Instructions: replaces prior dose of 45 mg (DME) walker Misc See Rx Instructions .Route Qty: 1 0RF Rx Instructions: As directed loratadine 10 mg tablet 10 mg PO DAILY buspirone 15 mg tablet 15 mg PO TID sertraline 100 mg tablet 200 mg PO DAILY olanzapine 20 mg tablet 20 mg PO BEDTIME prazosin 2 mg capsule 4 mg PO BEDTIME albuterol sulfate [ProAir HFA] 90 mcg/actuation HFA aerosol inhaler 2 puff inhalation Q6H PRN (Reason: for wheezing) 30 Days Qty: 8.5 6RF cyanocobalamin (vitamin B-12) 100 mcg tablet 100 mcg PO DAILY cholecalciferol (vitamin D3) 50 mcg (2,000 unit) capsule 50 mcg PO DAILY diclofenac sodium 1 % gel 2 g topical TID PRN (Reason: Pain) amitriptyline 100 mg tablet 100 mg PO BEDTIME pregabalin 150 mg capsule 150 mg PO BID meclizine 25 mg tablet 25 mg PO .COMPLEX Rx Instructions: 25 mg orally every 8 hours as needed; dicyclomine 20 mg tablet 40 mg PO QID Qty: 240 3RF docusate sodium [Colace] 100 mg capsule 100 mg PO BID PRN (Reason: constipation) 30 Days Qty: 60 3RF omeprazole 20 mg capsule,delayed release(DR/EC) 20 mg PO DAILY PRN (Reason: GI UPSET) Qty: 30 6RF psyllium husk [Fiber (psyllium husk)] 0.4 gram capsule 0.4 g PO BID Qty: 60 6RF sennosides [senna] 8.6 mg tablet 17.2 mg PO BEDTIME PRN (Reason: Constipation) Qty: 60 6RF Referrals: Umm Coley MD [Primary Care Provider] - (Left-sided body pain) Alberto Sands MD [Physician] - (Left-sided body pain, bilateral leg weakness) Interventions: ED Discharge Assessment Last Done: 05/10/24 13:07 Discharge Date/Time: 05/10/24 13:08 Print Language: Khmer
[2024-05-10 13:07] VITALS: BP 99/48; PULSE 63; RESP 18; TEMP 36.9; O2SAT 100
[2024-05-10 13:34] LABS: Troponin-I High Sensitivity < 2.7 ng/L (<3.5-17.0)
== END 2024-05-10 13:08 | disposition home or self-care (01) ==
PROVIDERS: Emergency Provider Emergency Medicine; PCP Internal Medicine
DX: R42 Dizziness and giddiness (principal); M54.2 Cervicalgia; M79.662 Pain in left lower leg; M79.622 Pain in left upper arm
CPT/HCPCS: 36415; 70450; 80048; 84484; 85025; 93005; 99283; 99284

== ENCOUNTER → 2024-05-10 10:03 | Outpatient (BNV) | payer MEDICAID, SELFPAY | PROVIDERS: Emergency Provider Emergency Medicine; PCP Internal Medicine; Visit Provider Internal Medicine Cardiovascular Disease | DX: R42 Dizziness and giddiness (principal) | CPT/HCPCS: 93010 ==

== ENCOUNTER 2024-05-19 09:21 | Outpatient (REF) | payer MEDICAID, SELFPAY ==
--- NOTE | ~2024-05-19 | US_ITS ---
EXAMINATION: US ABDOMEN LIMITED CLINICAL INFORMATION: 59-year-old female with history of right upper quadrant pain and fatty liver. COMPARISON: CT abdomen and pelvis 08/13/2023. Ultrasound abdomen complete 02/12/2022 and 12/26/2020. TECHNIQUE: Real-time imaging of the right upper quadrant abdominal viscera. FINDINGS: PANCREAS: Normal. LIVER: Normal. The liver is normal in size. The liver contour is normal. Parenchymal echogenicity is normal. No focal hepatic lesion. There is no intrahepatic biliary duct dilatation seen. GALLBLADDER: Normal. The gallbladder is physiologically distended without evidence of stones, sludge, polyps, wall thickening or pericholecystic fluid. COMMON BILE DUCT: Normal in caliber measuring 0.1 cm in diameter. RIGHT KIDNEY: 5 mm nonobstructing lower pole renal stone, unchanged. No hydronephrosis or focal parenchymal lesions. The kidney measures 9.0 cm in maximum dimension. FREE FLUID: None. US/US abdomen limited IMPRESSION: 1. A 5 mm nonobstructing right lower pole renal stone. No hydronephrosis. 2. No cholelithiasis or evidence of acute cholecystitis.
== END 2024-05-19 09:22 | disposition home or self-care (01) ==
LOC: HO.US 09:21
PROVIDERS: PCP Internal Medicine; Visit Provider Registered Nurse
DX: R10.11 Right upper quadrant pain (principal); K76.0 Fatty (change of) liver, not elsewhere classified
CPT/HCPCS: 76705

== ENCOUNTER 2024-05-20 11:00 | Outpatient (RCR) | payer MEDICAID, SELFPAY ==
[2024-04-08 11:07] VITALS: BP 105/51; PULSE 79; RESP 12; O2SAT 98
--- NOTE | 2024-04-11 10:55 | MHC.PT.EP ---
[facility] [place] [facility] [place] Office [place] Office [address] [phone] F: [phone] F: [phone] F: [phone] F: [phone] Physical Therapy Plan of Care Date of Evaluation: 04/08/24 Date of Surgery: Diagnosis: Vertigo Assessment: Pt is a 59yo female who presents for treatment of BPPV. PT exam reveals + test for R sided BPPV, treated with Edinson maneuver. Pt would benefit from continued PT to re-assess BPPV, treat as needed, teach compensatory techniques such as gaze stabilization and ensure proper functioning VOR to reduce fall risk. Pt in agreement with POC and is motivated to participate and improve mobility. Frequency and Duration: The patient will be seen 2x/week, x 4 weeks Short Term Goals: 1. In 2 weeks, patient will be I with seated VOR exercises and gaze stabilization with transfers. 2. In 2 weeks, patient will report reduced severity of vertigo symptoms by 25%. 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 In 4 weeks, patient will test negative for BPPV and report no onset of vertigo x 2 weeks. 2. In 4 weeks, patient will be able to walk with head turns without LOB. Treatment Plan: Modalities to reduce pain, spasms and effusion. Manual therapy to restore motion and function. Therapeutic exercise to improve strength and flexibility. Neuromuscular re-education for posture and balance. Therapeutic activities to return to functional activities of daily living. Electronically signed by: Mery Joel PT, DPT Please sign and return to therapist. Thank you for your referral.
--- NOTE | 2024-08-31 09:24 | MHC.PT.DC ---
[facility] [place] Office [place] Office [place] [facility] [address]ori [address] [phone] F: [phone] F: [phone] F: [phone] F: [phone] Physical Therapy Discharge Report Diagnosis: Vertigo Date of Surgery: Date of Evaluation: 04/08/24 Date of Discharge: 05/20/24 Treatments to Date: 6 Cancellations to Date: No Shows to Date: Discharge Status: Improved Function Independent with HEP Discharge Summary: Pt is a 59yo female who was referred to PT for dizziness with balance difficulty. Pt participated in 6 treatment sessions, and her balance issues have primarily resolved. She is currently c/o sciatica and knee type symptoms for which we have a referral for. We will therefore put vestibular on hold at this time and perform new eval on right LE. Thank you for this referral. Electronically signed by: Mery Joel PT, DPT Please sign and return to therapist. Thank you for your referral.
== END 2024-08-31 09:25 | disposition home or self-care (01) ==
LOC: HO.PT 11:00
PROVIDERS: PCP Internal Medicine; Visit Provider Internal Medicine
DX: H81.10 Benign paroxysmal vertigo, unspecified ear (principal)
CPT/HCPCS: 87086; 95992; 97110; 97112; 97161

== ENCOUNTER 2024-05-23 13:49 | Outpatient (AMB) | payer MEDICAID, SELFPAY ==
--- NOTE | 2024-05-23 13:57 | A.OFFVIS_ITS ---
Vital Signs 05/23/24 14:07 Height 5 ft 2 in Weight 107 lb 4 oz BMI 19.6 BP 98/88 Blood Pressure Location Lt brachial Position Sitting Respiration 16 Pulse 74 Pulse Source Pulse Oximeter Pulse Oximetry (%) 97 Oxygen Delivery Method Room Air Intake Visit Reasons: Right Shoulder Lesion Intake Note: Patient comes in for initial visit was refered by [facility]. Reports pain 8/10. Chlorinator Operator Required: Yes Chlorinator Operator Services: Chlorinator Operator Present Allergies codeine [CODEINE] Allergy (Intermediate, Verified 05/23/24 14:10) DIZZY/NAUSEA, nausea/vomiting escitalopram [From LEXAPRO] Allergy (Intermediate, Verified 05/23/24 14:10) ? NAUSEA meperidine [MEPERIDINE] Allergy (Intermediate, Verified 05/23/24 14:10) NAUSEA morphine [MORPHINE] Allergy (Intermediate, Verified 05/23/24 14:10) PALPITATIONS, palpitation oxycodone [OXYCODONE] Allergy (Intermediate, Verified 05/23/24 14:10) PALPATATIONS, palpitations tramadol Allergy (Unknown, Verified 05/23/24 14:10) dizziness, nausea acetaminophen [From Percocet] Allergy (Verified 05/23/24 14:10) Shakiness HPI Comments Details: Diana is very pleasant 59 years old female who presents in my office with complains on pain in the anterior and lateral right shoulder. She reports that she was evaluated by orthopedic surgeon Dr. Stephen and she was referred to pain management. Because of her pain she can not sleep normally can not do activ ities of daily living can not take care of herself she can not function normally. She reports her pain today is 10/10. She is on permanent disability. She is suffering from personality disorder. She was diagnose with borderline personality disorder and cluster B personality disorder. She had physical therapy for her shoulder, she had MRI and CT scan of her shoulder in [facility]. She went for physical therapy with [facility] few months ago and she received no help from physical therapy she also tried occupational therapy which was not helpful for her pain. In May she received therapeutic shoulder injection which was not helpful for her pain. The injection was not image guided. Her past medical history significant for headaches fatigue dizziness and fainting, angina and chest pain, depression personality disorder as above kidney stones liver disease digestive problems and arthritis. She was diagnosed with breast cancer in 2009 and she received breast cancer surgery. She also had right leg surgery. She denies smoking cigarettes drinking alcohol she drinks coffee and caffeinated beverages she denies recreational drugs. [facility] Medical History Rotator cuff tendinitis Migraine Anemia Diarrhea Depression Somatization disorder Migraine equivalent syndrome Anxiety Periodontal disease Primary osteoarthritis of right hand Fibromyalgia Surgical History History of esophagogastroduodenoscopy (EGD) History of lumpectomy Hx of section Hx of shoulder surgery Hx of colonoscopy Family History Mother HTN (hypertension) Sister Breast cancer Bone cancer Colon polyps Sister Osteoporosis Hypercholesteremia Colon polyps Social History Household Members: None Housing: Apartment Are you a primary infant caregiver to a significant other at home: No Do you presently have visiting nurse or other home services: Yes (ROOF SERVICE TECHNICIAN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 Review of Systems Const Denies weight gain and Denies weight loss Eyes Denies blurry vision ENT Reports Normal hearing present and Denies sore throat Card Reports as per HPI Resp Denies change in phlegm color, Denies chest congestion and Denies cough GI Reports no additional complaints Denies urinary frequency and Denies dysuria Musc Reports as per HPI Neuro Reports no additional complaints, Reports Normal hearing present, Denies Abnorm al speech present, Denies confusion and Denies Sensory deficit (Neuro) Psych Reports as per HPI and Denies confusion Physical Exam Vital Signs: Last Vital Signs Pulse 74 05/23/24 14:07 Resp 16 05/23/24 14:07 BP 98/88 05/23/24 14:07 Pulse Ox 97 05/23/24 14:07 Oxygen Delivery Method Room Air 05/23/24 14:07 BMI result Body Mass Index 19.6 Const General: no acute distress; No confusion Orientation/consciousness: patient oriented x3 and No confusion Eyes General: appearance normal, both eyes and all related structures Pupils: Equal, round and reactive pupils present EOM: EOMs intact bilaterally Neck Neck: Yes full ROM Chest Chest palpation & inspection: normal inspection of the chest Resp Effort & Inspection: normal respiratory effort, able to speak in complete sentences, normal respiratory pattern, no audible wheezes and no cough Cardio Jugular venous distension: no JVD GI Inspection: Yes normal to inspection Neuro General: patient oriented x3, gait normal and No confusion Cranial nerves: Yes CN's II-XII intact bilaterally, Yes Equal, round and reactive pupils present, Yes Normal hearing present and Yes Ability to bilaterally elevate shoulders present Speech: No Abnormal speech present Gait exam (Neuro): Normal gait present Motor exam (neuro): 5/5 motor strength present throughout Sensory Exam: No Sensory deficit (Neuro) Extrem General: No pedal edema Psych Speech and movement: Normal speech and movement present Affect: normal affect Attitude: cooperative Thought process: Normal thought process present Thought content: Normal thought content present Insight: Good insight present (Psych) Judgement: Good judgement present (Psych) Results Reviewed Results Reviewed: 11/13/23 EMG IMPRESSION: 1. This is a normal study. 2. There is no electrodiagnostic evidence for median neuropathy, ulnar neuropathy, brachial plexopathy, or cervical radiculopathy. Ordering Physician: Diomedes Woodard MD Date of Service: 02/29/24 Procedure(s): CT cervical spine wo IV con Accession Number(s): [id number] cc: Umm Coley MD; Diomedes Woodard MD~ EXAMINATION: CT CERVICAL SPINE WITHOUT CONTRAST CLINICAL INFORMATION: Neck injury and pain COMPARISON: CT scan of cervical spine on 02/09/2021 TECHNIQUE: Multiple 2.0 mm axial images were obtained from base of skull to T1 levels without IV contrast enhancement. Sagittal and coronal 2.0 mm bone window images were reconstructed from axial image data. This CT examination was performed using dose optimization techniques as appropriate, variously including the following: *Automated exposure control *Adjustment of mA and/or kV according to patient size (this includes techniques or standardized protocols for targeted exams where dose is matched to indication/reason for exam; i.e. extremities or head) *Use of iterative reconstruction technique DLP: 198 mGy-cm FINDINGS: C1/C2: Bony structures are intact with normal alignment. There is no spinal stenosis. C2/C3: Bony structures are intact with normal alignment. There is no spinal stenosis. Bilateral C2/C3 neuroforamina are patent. Bilateral apophyseal joints are intact with normal alignment. C3/C4: Bony structures are intact with normal alignment. There is no spinal stenosis. Bilateral C3/C4 neuroforamina are patent. Bilateral apophyseal joints are intact with normal alignment. C4/C5: Bony structures are intact with normal alignment. There is no spinal stenosis. Bilateral C4/C5 neuroforamina are patent. Bilateral apophyseal joints are intact with normal alignment. C5/C6: Bony structures are intact with normal alignment. There is no spinal stenosis. Bilateral C5/C6 neuroforamina are patent. Bilateral apophyseal joints are intact with normal alignment. C6/C7: Bony structures are intact with normal alignment. There is no spinal stenosis. Bilateral C6/C7 neuroforamina are patent. Bilateral apophyseal joints are intact with normal alignment. C7/T1: Bony structures are intact with normal alignment. There is no spinal stenosis. Bilateral C7/T1 neuroforamina are patent. Bilateral apophyseal joints are intact with normal alignment. Ordering Physician: Sanya Ramos MD Date of Service: 08/09/22 Procedure(s): MR cervical spine wo/w con Accession Number(s): [id number] cc: Sanya Ramos MD~ EXAMINATION: MR BRAIN WITHOUT AND WITH CONTRAST MR CERVICAL SPINE WITHOUT AND WITH CONTRAST CLINICAL INFORMATION: Numbness and tingling of the left arm. Pain. COMPARISON: CTA head and neck from 08/08/2022. TECHNIQUE: MRI of the brain and cervical spine was obtained using routine sequences without and following the administration of 5 mL of Gadavist intravenous contrast. FINDINGS: Brain: No focal restricted diffusion is demonstrated to suggest acute or subacute cerebral ischemia. No evidence of acute or chronic hemorrhagic products on heme-sensitive imaging. Mild basal ganglia mineralization. Scattered periventricular and deep white matter T2 FLAIR hyperintensities consistent with mild underlying microangiopathy. The ventricles are normal in morphology and size. No abnormal mass effect. No midline shift. Normal appearance of the pituitary gland. Normal positioning of the cerebellar tonsils. Normal arterial and venous vascular flow voids are present. No abnormal contrast enhancement. Normal, homogeneous marrow signal. Mild mucosal thickening of the paranasal sinuses. No signal abnormalities within the mastoids. Cervical Spine: Straightening of the normal cervical lordosis. Otherwise, normal anatomic alignment. Nonenhancing T2 hyperintense lesion within the C4 vertebral body suggestive of an atypical hemangioma. Otherwise, normal homogeneous marrow signal throughout. No additional suspicious marrow edema. The vertebral body heights are maintained. Mild multilevel disc desiccation. Otherwise, the intervertebral discs are of normal height. No demonstrated spinal cord signal abnormalities. No abnormal contrast enhancement. Limited evaluation of the soft tissues of the neck without demonstrated abnormalities. The flow voids of the major cervical vessels are maintained. Normal appearance of the cervicomedullary junction and visualized posterior fossa. SPINAL LEVELS: C2-C3: Normal annular contour. There is no uncovertebral joint arthropathy. There is mild bilateral facet joint arthropathy. There is no neural foraminal stenosis. There is no spinal canal stenosis. C3-C4: Mild disc-osteophyte complex. There is no uncovertebral joint arthropathy. There is mild bilateral facet joint arthropathy. There is no neural foraminal stenosis. There is no spinal canal stenosis. C4-C5: Mild disc-osteophyte complex. There is no uncovertebral joint arthropathy. There is mild bilateral facet joint arthropathy. There is no neural foraminal stenosis. There is no spinal canal stenosis. C5-C6: Mild disc-osteophyte complex. There is no uncovertebral joint arthropathy. There is no facet joint arthropathy. There is no neural foraminal stenosis. There is no spinal canal stenosis. C6-C7: Normal annular contour. There is no uncovertebral joint arthropathy. There is no facet joint arthropathy. There is no neural foraminal stenosis. There is no spinal canal stenosis. C7-T1: Normal annular contour. There is no uncovertebral joint arthropathy. There is no facet joint arthropathy. There is no neural foraminal stenosis. There is no spinal canal stenosis. MR/MR cervical spine wo/w con IMPRESSION: 1. No acute intracranial abnormalities. No abnormal intracranial enhancement. 2. Minimal underlying microangiopathy. 3. No demonstrated cervical spinal canal stenosis or nerve root compression. No abnormal enhancement of the cervical spinal cord. CT/CT cervical spine wo IV con IMPRESSION: 1. Unchanged Normal CT scan of the cervical spine. 2. No cervical fracture or dislocation is seen. Ordering Physician: Denilson Forman PA-C Date of Service: 01/12/24 Procedure(s): MR shoulder RT wo con Accession Number(s): [id number] cc: Umm Coley MD; Denilson Forman PA-C~ EXAMINATION: MR SHOULDER WITHOUT CONTRAST, RIGHT CLINICAL INFORMATION: Right shoulder pain and decreased range of motion. Surgery for rotator cuff impingement and adhesive capsulitis in 2016. COMPARISON: Right shoulder radiographs dated 02/11/2023 and MRI dated 10/23/2016. TECHNIQUE: MRI of the shoulder without contrast was performed on a high-field scanner. FINDINGS: ROTATOR CUFF: Attenuation of the supraspinatus and infraspinatus tendons is redemonstrated, similar when compared to the prior examination. Findings could represent normal variation versus chronic partial tearing. No new rotator cuff tendon tear. No muscle atrophy or fatty infiltration. BICEPS: Intact. CORACOACROMIAL ARCH: The undersurface of the acromion is attenuated, consistent with interval acromioplasty. Mild acromioclavicular osteoarthritis. Fluid within the subacromial-subdeltoid bursa which may represent mild bursitis. LABRUM/CAPSULE: No labral tear. Intact joint capsule. GLENOHUMERAL JOINT/MARROW: Unremarkable. MR/MR shoulder RT wo con IMPRESSION: 1. Attenuation of the supraspinatus and infraspinatus tendons, similar when compared to the prior examination. Findings could represent normal variation versus chronic partial tearing. No new rotator cuff tendon tear. 2. Interval acromioplasty. Mild acromioclavicular osteoarthritis. Fluid within the subacromial-subdeltoid bursa which may represent mild bursitis. I reviewed records from the following: Ortho Hand surgery Assessment & Plan Assessment & Plan (1) Rotator cuff tendinitis: Code(s): M75.80 - Other shoulder lesions, unspecified shoulder Category: Medical Qualifiers: Laterality: right Qualified Code(s): M75.81 - Other shoulder lesions, right shoulder Plan: I offered this patient and I will perform therapeutic major guided intra- articular injection into the right shoulder. If this will not help for the patient I will consider interscalene medial branch block in the attempt to help this patient's pain. Unfortunately she is suffering from 2 types of personality disorder. Possibility exists that she will not be able to pass psychological evaluation in preparation of the PNS of brachial plexus. Nevertheless it is obvious encouraging to try because currently she is stable and on medication with psychiatrist and currently in care with [facility] with psychologist. (2) Arthritis of right shoulder region: Code(s): M19.011 - Primary osteoarthritis, right shoulder Category: Medical (3) Chronic pain syndrome: Code(s): G89.4 - Chronic pain syndrome Category: Medical (4) Right shoulder pain: Code(s): M25.511 - Pain in right shoulder Category: Medical Plan plan of care as above Patient Instructions: I here by testify that I spent 45 minutes in conversation with this patient as well as evaluating her prior records and diagnostic studies planning her care and organizing this note. photographer's assistant Shauna was helping me today to maintain this conversation in Slovenian. Coding Level of Care Code New Pt Level 4 (87978) Diagnoses Tendinitis of right rotator cuff M75.81 Laterality: right Arthritis of right shoulder region M19.011 Chronic pain syndrome G89.4 Right shoulder pain M25.511
[2024-05-23 14:07] VITALS: BP 98/88; PULSE 74; RESP 16; O2SAT 97; BMI 19.6
== END 2024-05-23 14:27 | disposition home or self-care (01) ==
PROVIDERS: PCP Internal Medicine; Referring Provider Orthopaedic Surgery; Visit Provider Anesthesiology
DX: M75.81 Other shoulder lesions, right shoulder (principal); M19.011 Primary osteoarthritis, right shoulder; G89.4 Chronic pain syndrome; M25.511 Pain in right shoulder
CPT/HCPCS: 99204

== ENCOUNTER → 2024-05-23 13:49 | Outpatient (BNVA) | payer MEDICAID, SELFPAY | PROVIDERS: PCP Internal Medicine; Referring Provider Orthopaedic Surgery; Visit Provider Anesthesiology | DX: M75.81 Other shoulder lesions, right shoulder (principal); M19.011 Primary osteoarthritis, right shoulder; M25.511 Pain in right shoulder; G89.4 Chronic pain syndrome | CPT/HCPCS: 99202 ==

== ENCOUNTER 2024-06-13 11:05 | Outpatient (AMB) | payer MEDICAID, SELFPAY ==
--- NOTE | 2024-06-13 11:40 | A.OFFVIS_ITS ---
Vital Signs 06/13/24 11:45 Height 5 ft 2 in Weight 107 lb BMI 19.6 Intake Visit Reasons: follow up Migraine - LVM Intake Note: Patient presents for follow up migraines . patient has had some improvement with her headaches since her last visit Vp Software Engineering Required: Yes Vp Software Engineering Name: cristobal jimenez Information Interpreted: non-clinical & clinical Allergies codeine [CODEINE] Allergy (Intermediate, Verified 06/13/24 11:42) DIZZY/NAUSEA, nausea/vomiting escitalopram [From LEXAPRO] Allergy (Intermediate, Verified 06/13/24 11:42) ? NAUSEA meperidine [MEPERIDINE] Allergy (Intermediate, Verified 06/13/24 11:42) NAUSEA morphine [MORPHINE] Allergy (Intermediate, Verified 06/13/24 11:42) PALPITATIONS, palpitation oxycodone [OXYCODONE] Allergy (Intermediate, Verified 06/13/24 11:42) PALPATATIONS, palpitations tramadol Allergy (Unknown, Verified 06/13/24 11:42) dizziness, nausea acetaminophen [From Percocet] Allergy (Verified 06/13/24 11:42) Shakiness Medication List - Last Reconciled 06/13/24 by Magalys Vera, REINA acetaminophen 500 mg PO Q4H PRN acetaminophen 650 mg (2 x 325 mg) PO Q6H PRN albuterol sulfate 90 mcg/actuation (ProAir HFA) 2 puffs inhalation Q6H PRN 30 days amitriptyline 100 mg PO BEDTIME ascorbate calcium (vitamin C) 500 mg PO MOWEFR buspirone 15 mg PO TID cholecalciferol (vitamin D3) 50 mcg PO DAILY clonazepam 0.5 mg PO BEDTIME clonazepam 1 mg PO DAILY cyanocobalamin (vitamin B-12) 100 mcg PO DAILY diclofenac sodium 1% 2 grams topical TID PRN dicyclomine 40 mg (2 x 20 mg) PO QID docusate sodium (Colace) 100 mg PO BID PRN 30 days ferrous sulfate 325 mg PO MOWEFR fluticasone propion-salmeterol 115-21 mcg/actuation (Advair HFA) 2 puffs inhalation BID ibuprofen 400 mg PO Q6H PRN loratadine 10 mg PO DAILY meclizine 25 mg orally every 8 hours as needed; melatonin 10 mg (2 x 5 mg) PO BEDTIME 30 days mirtazapine 30 mg PO BEDTIME naproxen 500 mg PO BID olanzapine 20 mg PO BEDTIME omeprazole 20 mg PO DAILY PRN prazosin 4 mg PO BEDTIME pregabalin 150 mg PO BID psyllium husk (Fiber (psyllium husk)) 0.4 grams PO BID ropinirole 0.5 mg (2 x 0.25 mg) PO TID 30 days sennosides (senna) 17.2 mg (2 x 8.6 mg) PO BEDTIME PRN sertraline 200 mg PO DAILY sumatriptan succinate 100 mg PO DAILY MRX1 PRN walker As directed HPI Comments Details: 59-yr-old female presents for f/u visit. Accompanied by her MOBILE UI DEVELOPER. Pt reports she is having several issues. She is most concerned w/ RUE pain. Sometimes her arms twitch, jerk. Her right fingers/hand can swell, have spots. She did see pain management- for right shoulder- she is scheduled for right shoulder procedure in Jul. She continues to have patricia leg pain. She is compliant w/ iron supplement, amitriptyline- but is unclear if there is benefit- she does not know her medications well. She continues to have migraine attacks 2-3 days per week. [facility] Medical History (Updated 06/13/24 @ 12:18 by REINA Barrios) Rotator cuff tendinitis Migraine Anemia Diarrhea Depression Somatization disorder Migraine equivalent syndrome Anxiety Periodontal disease Primary osteoarthritis of right hand Fibromyalgia Surgical History History of esophagogastroduodenoscopy (EGD) History of lumpectomy Hx of section Hx of shoulder surgery Hx of colonoscopy Family History Mother HTN (hypertension) Sister Breast cancer Bone cancer Colon polyps Sister Osteoporosis Hypercholesteremia Colon polyps Social History Household Members: None Housing: Apartment Are you a primary early breastfeeding care specialist to a significant other at home: No Do you presently have visiting nurse or other home services: Yes (MOBILE UI DEVELOPER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 Antalgic, Unsteady gait w/o cane, steadier w/ cane General: patient oriented x3 Cranial nerves: Yes CN's II-XII intact bilaterally Cognition (Neuro): normal cognition Psych Appearance: grossly normal Mental Status: mental status grossly normal Speech and movement: Normal speech and movement present Affect: normal affect Attitude: cooperative Assessment & Plan Assessment & Plan (1) Migraine: Code(s): G43.909 - Migraine, unspecified, not intractable, without status migrainosus Category: Medical (2) Bilateral leg paresthesia: Code(s): R20.2 - Paresthesia of skin Category: Medical (3) Leg cramps: Code(s): R25.2 - Cramp and spasm Category: Medical Plan For sleep: BLE EMG/NCS- normal. Recheck labs. For now, continue Ferrous sulfate 325mg w/ vit C 500mg 3 x's per week, and prn colace 100mg bid. Continue Requip 0.5mg tid. Continue Prazosin. Continue Melatonin 10mg qhs. ? For acute migraine tx: Sumatriptan 100mg tab- at onset of headache, may repeat in 2 hrs PRN; max 2 tabs per day or 4 tabs/week. Advised to take Sumatriptan w/ Naproxen 500mg. For migraine prevention tx: Continue Amitriptyline 100mg qhs- will check level. Start Emgality 240mg sc x's 1, f/b 120mg sc q month. Continue Mirtazapine 45mg qhs- for mood but can reduce migraine as well. Pt's nurse may need to help her w/ this. Her Nurse is Collette Kinney. [facility] Tx contraindications- all anti-HTN tx's (candesartan, beta-blockers, CCBs) d/t hypotension f/u in 6 months or sooner prn Orders: Orders Ferritin Today D64.9 - Anemia, unspecified, R20.2 - Paresthesia of skin, R25.2 - Cramp and spasm Vitamin B12 and Folate Today D64.9 - Anemia, unspecified, R20.2 - Paresthesia of skin, R25.2 - Cramp and spasm Homocysteine Today D64.9 - Anemia, unspecified, R20.2 - Paresthesia of skin, R25.2 - Cramp and spasm Methylmalonic Acid Today D64.9 - Anemia, unspecified, R20.2 - Paresthesia of skin, R25.2 - Cramp and spasm Amitriptyline (Elavil), Serum Today G43.909 - Migraine, unspecified, not intractable, without status migrainosus, R20.2 - Paresthesia of skin, R42 - Dizziness and giddiness Magnesium Today M79.641 - Pain in right hand, R20.2 - Paresthesia of skin, R25.2 - Cramp and spasm Complete Blood Count Auto Diff Today D64.9 - Anemia, unspecified, R20.2 - Paresthesia of skin, R25.2 - Cramp and spasm IRON PROFILE Today D64.9 - Anemia, unspecified, R20.2 - Paresthesia of skin, R25.2 - Cramp and spasm Medications: New galcanezumab-gnlm (Emgality Pen) Loading dose: 120 mg subcu injection x2 in alternate sites (total 240 mg). To be followed by maintenance dose of 120 mg subcu q.month. 240 mg (2 mL) subcut ONCE 30 days 2 mL 0RF Coding Level of Care Code Est Pt Level 4 (06181) Diagnoses Migraine G43.909 Bilateral leg paresthesia R20.2 Leg cramps R25.2
[2024-06-13 11:45] VITALS: BMI 19.6
== END 2024-06-13 12:42 | disposition home or self-care (01) ==
PROVIDERS: PCP Internal Medicine; Visit Provider Nurse Practitioner Family
DX: G43.909 Migraine, unspecified, not intractable, without status migrainosus (principal); R20.2 Paresthesia of skin; R25.2 Cramp and spasm
CPT/HCPCS: 99214

== ENCOUNTER → 2024-06-13 11:05 | Outpatient (BNVA) | payer MEDICAID, SELFPAY | PROVIDERS: PCP Internal Medicine; Visit Provider Nurse Practitioner Family | DX: G43.909 Migraine, unspecified, not intractable, without status migrainosus (principal); R20.2 Paresthesia of skin; R25.2 Cramp and spasm | CPT/HCPCS: 99212 ==

== ENCOUNTER 2024-06-28 08:42 | Outpatient (REF) | payer MEDICAID, SELFPAY ==
--- NOTE | 2024-06-28 08:44 | EMG_ITS ---
Right median and ulnar motor and sensory studies were performed. Right radial and median and lateral antecubital brachial sensory studies were performed, and needle examination was performed. IMPRESSION: This is an unremarkable study with no significant abnormality. MD LOLI Leslie/GUERO / [id number]
== END 2024-06-28 08:43 | disposition home or self-care (01) ==
LOC: HO.NEURO 08:42
PROVIDERS: PCP Internal Medicine; Visit Provider Internal Medicine
DX: R20.0 Anesthesia of skin (principal); R20.2 Paresthesia of skin
CPT/HCPCS: 95886; 95910

== ENCOUNTER 2024-07-19 12:18 | Outpatient (REF) | payer MEDICAID, SELFPAY ==
--- NOTE | ~2024-07-19 | XR_ITS ---
EXAMINATION: XR LUMBOSACRAL SPINE CLINICAL INFORMATION: Low back pain. COMPARISON: CT dated 07/14/2023. TECHNIQUE: Three views of the lumbosacral spine. FINDINGS: Vertebral body heights are normal. No fracture or spondylolisthesis. Intervertebral disc heights are maintained without significant degenerative disc disease. Bone mineralization is normal. A 4 mm calculus is seen within a right renal calyx. Soft tissues are otherwise unremarkable. The sacroiliac joints are normal. XR/XR lumbar spine 2-3V IMPRESSION: 1. No acute osseous findings in the lumbosacral spine. No significant degenerative spondylosis. 2. A 4 mm right renal calculus. Electronically signed by: Mathieu Garcia MD 07/19/2024 02:38 PM EDT RP
--- NOTE | ~2024-07-19 | XR_ITS ---
EXAMINATION: XR HIP, LEFT CLINICAL INFORMATION: left hip pain COMPARISON: None available. TECHNIQUE: Two views of the left hip. FINDINGS: No fracture. Alignment is anatomic. Hip joint space is maintained. Soft tissues are unremarkable. XR/XR hip LT min 2V IMPRESSION: Normal left hip. Electronically signed by: Mathieu Lepe MD 09/27/2024 12:24 PM [facility]
== END 2024-07-19 12:19 | disposition home or self-care (01) ==
LOC: HO.HHCX 12:18
PROVIDERS: Visit Provider Internal Medicine
DX: M25.552 Pain in left hip (principal); M54.50 Low back pain, unspecified
CPT/HCPCS: 72100; 73502

== ENCOUNTER → 2024-07-19 12:19 | Outpatient (BNV) | payer MEDICAID, SELFPAY | PROVIDERS: Visit Provider Radiology Diagnostic Radiology | DX: M25.552 Pain in left hip (principal) | CPT/HCPCS: 73502 ==

== ENCOUNTER 2024-08-11 11:00 | Outpatient (RCR) | payer MEDICAID, SELFPAY ==
[2024-06-23 10:04] VITALS: BP 106/53; PULSE 77; O2SAT 95
--- NOTE | 2024-06-23 13:40 | MHC.PT.EP ---
[facility] [place] Office [place] Office [place] Office [address] Ariana Stafford [address] [phone] F: [phone] F: [phone] F: [phone] F: [phone] Physical Therapy Plan of Care Date of Evaluation: 06/23/24 Date of Surgery: Diagnosis: Knee arthritis B Assessment: Pt is 59 y/o F with a hx of vertigo and fibromyalgia who is referred to PT for eval and treat of B knee arthritis resulting in decreased tolerance or ability for ADL's, HH chores and sitting for extended periods of time secondary to decreased R knee ROM, decreased knee and hip strength, decreased balance and gait abnormality. Pt is motivated and is deemed an appropriate candidate to receive skilled PT services to address their physical impairments in order to improve their function. Frequency and Duration: The patient will be seen 2x/week for 3 weeks. Short Term Goals: Initiate home exercise program. Pt will report at most 5/10 pain; initial 10/10. Pt will increase R knee flex to 115; initial 104. Senior Living Goals: Pt will be I with home exercise program. Pt will increase R knee ext strength by 1/2 grade; initial 4-/5. Pt will report little to no difficulty with HH chores; initial extreme Pt will report little to no difficulty with walking 2 blocks; initial extreme. Treatment Plan: Modalities to reduce pain, spasms and effusion. Manual therapy to restore motion and function. Therapeutic exercise to improve strength and flexibility. Neuromuscular re-education for posture and balance. Therapeutic activities to return to functional activities of daily living. Electronically signed by: Jeffry Carter PT. Please sign and return to therapist. Thank you for your referral.
--- NOTE | 2024-08-11 12:56 | MHC.PT.DC ---
[facility] [place] [facility] [place] Office [place] [facility] [address] Ariana Stafford 140 [facility] [phone] F: [phone] F: [phone] F: [phone] F: [phone] Physical Therapy Discharge Report Diagnosis: Knee arthritis B Date of Surgery: Date of Evaluation: 06/23/24 Date of Discharge: 08/11/24 Treatments to Date: 7 Cancellations to Date: No Shows to Date: Discharge Status: Improved Function Independent with HEP Discharge Summary: Diana has been an active participant in her program in the clinic with fair home program compliance; she has improved her tolerance for therapeutic exercises and reports she is feeling a little better doing some things around her home though she elected to not fill out her final outcome measure. Electronically signed by: Jeffry Carter PT. Please sign and return to therapist. Thank you for your referral.
== END 2024-08-11 12:56 | disposition home or self-care (01) ==
LOC: HO.PT 11:00
PROVIDERS: PCP Internal Medicine; Visit Provider Internal Medicine
DX: M17.0 Bilateral primary osteoarthritis of knee (principal); R29.6 Repeated falls
CPT/HCPCS: 97110; 97161

== ENCOUNTER 2024-09-09 12:30 | Outpatient (AMB) | payer MEDICAID, SELFPAY ==
--- NOTE | 2024-09-09 12:38 | MHC.OFFVIS ---
Vital Signs 09/09/24 12:51 Height 5 ft 2 in Weight 105 lb BMI 19.2 BP 104/50 L Blood Pressure Location Lt brachial Position Sitting Pulse 79 Intake Visit Reasons: 6 month f/u GERD, CIC Intake Note: Patient follow up for GERD Patient cc: abdominal pain, acid reflex on and off, some diarrhea, dizziness and fatigue. Nurse Practitioner Manager Required: Yes Accompanied by: Family/Other Allergies codeine [CODEINE] Allergy (Intermediate, Verified 09/26/24 11:30) DIZZY/NAUSEA, nausea/vomiting escitalopram [From LEXAPRO] Allergy (Intermediate, Verified 09/26/24 11:30) ? NAUSEA meperidine [MEPERIDINE] Allergy (Intermediate, Verified 09/26/24 11:30) NAUSEA morphine [MORPHINE] Allergy (Intermediate, Verified 09/26/24 11:30) PALPITATIONS, palpitation oxycodone [OXYCODONE] Allergy (Intermediate, Verified 09/26/24 11:30) PALPATATIONS, palpitations tramadol Allergy (Unknown, Verified 09/26/24 11:30) dizziness, nausea acetaminophen [From Percocet] Allergy (Verified 09/26/24 11:30) Shakiness HPI HPI 6 month f/u GERD, CIC: Details: Assessment & Plan (1) GERD (gastroesophageal reflux disease): Code(s): K21.9 - Gastro-esophageal reflux disease without esophagitis Category: Medical (2) Irritable bowel syndrome with both constipation and diarrhea: Code(s): K58.2 - Mixed irritable bowel syndrome Category: Medical Plan Citizen Of [place] #Heron Live She is here today with her daughter who is quiet but supportive. She was hospitalized a couple of times for syncope/vertigo. She was referred for vestibular PT and some medications adjusted. She continues on her omeprazole in the morning famotidine at night, her fiber therapy senna, dicyclomine with good control of her GI conditions. Return office visit in 6 months. Medications: New omeprazole 20 mg PO DAILY PRN 30 caps 6RF GI UPSET sennosides (senna) 17.2 mg (2 x 8.6 mg) PO BEDTIME PRN 60 tabs 6RF Constipation Refilled docusate sodium (Colace) 100 mg PO BID 30 days PRN 60 caps 3RF constipation psyllium husk (Fiber (psyllium husk)) 0.4 grams PO BID 60 caps 6RF K58.2 - Mixed irritable bowel syndrome dicyclomine 40 mg (2 x 20 mg) PO QID 240 tabs 3RF K58.2 - Mixed irritable bowel syndrome TODAYS VISIT Citizen Of [place] #Heidi LIve SHe is here today with a female family member She continues on her omeprazole in the morning famotidine at night, her fiber therapy senna, dicyclomine . She has been ok in general with the stooling but has intermittent borborymus. She continues the bentyl, and we could consider imipramine but this may be constipating. She feels she is stable for now. ROV 6 mos. [facility] Medical History (Updated 11/09/24 @ 14:06 by Denilson Forman PA-C) Primary osteoarthritis of right hand Migraine Right shoulder pain Rotator cuff tendinitis Arthritis of right shoulder region Right hand pain Breast cancer, right Status post radiation therapy Anemia Diarrhea Depression Somatization disorder Migraine equivalent syndrome Anxiety Periodontal disease Fibromyalgia Surgical History History of esophagogastroduodenoscopy (EGD) History of lumpectomy Hx of section Hx of shoulder surgery Hx of colonoscopy Family History Mother HTN (hypertension) Sister Breast cancer Bone cancer Colon polyps Sister Osteoporosis Hypercholesteremia Colon polyps Social History Household Members: None Housing: Apartment Are you a primary career center director to a significant other at home: No Do you presently have visiting nurse or other home services: Yes (SLITTER SCORER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 Review of Systems Const Denies fatigue, Denies fever(s), Denies night sweats, Denies poor appetite and Denies weight loss ENT Reports Normal hearing present, Denies dental pain, Denies dysphagia, Denies hearing loss, Denies mouth pain, Denies odynophagia, Denies throat swelling, Denies tongue swelling and Reports other (Dentition adequate) Card Reports no additional complaints Resp Reports no additional complaints GI Details: Denies abdominal pain, Denies melena, Denies bloating, Denies hematochezia, Reports constipation, Reports GI cramping, Denies dysphagia, Denies excessive flatus, Denies early satiety, Reports heartburn, Denies diarrhea, Denies nausea, Denies odynophagia, Denies vomiting and Denies hematemesis Skin/Breast Denies pruritus, Denies lesions, Denies rash and Denies jaundice Neuro Reports Normal hearing present and Denies Abnormal speech present Endo Denies fatigue Aller/Immun Denies throat swelling and Denies tongue swelling Physical Exam Vital Signs: Last Vital Signs Pulse 79 09/09/24 12:51 BP 104/50 L 09/09/24 12:51 BMI result Body Mass Index 19.2 Const General: cooperative, no acute distress, well developed and well groomed Nutritional Appearance: average body habitus and well nourished Orientation/consciousness: oriented to person, oriented to place and oriented to time Limitations: language barrier and ambulation with cane HEENT Head: Yes normocephalic and Yes atraumatic Eyes General: appearance normal, both eyes and all related structures Pupils: Equal, round and reactive pupils present Neck Neck: Yes normal visual inspection and Yes no lymphadenopathy Thyroid: Thyroid normal Resp Effort & Inspection: normal respiratory effort and able to speak in complete sentences Auscultation: clear to auscultation bilaterally Cardio Rate: regular rate Rhythm: regular rhythm Heart sounds: Normal, physiologic split S2 sound present Peripheral pulses: radial pulses present and posterior tibial pulses present GI Inspection: No distended and No Abdominal panniculus present Palpation (GI): Soft to palpation, nontender, no guarding, not rigid and No hepatosplenomegaly present Percussion: Yes normal to percussion Auscultation: normal bowel sounds Rectal Exam - Female: deferred Skin General skin exam: no rashes or lesions noted, turgor normal, skin not dry, no jaundice, No spider nevi and no striae Rashes: no rashes Nails: normal Neuro General: oriented to person, oriented to place and oriented to time Cranial nerves: Yes Equal, round and reactive pupils present and Yes Normal hearing present Speech: No Abnormal speech present Extrem General: Yes normal to inspection, No clubbing, No cyanosis and No edema Psych Appearance: grossly normal and well kempt Mental Status: mental status grossly normal Speech and movement: Normal speech and movement present Affect: normal affect Attitude: cooperative Thought process: Normal thought process present and not confabulating Thought content: Normal thought content present Insight: Fair insight present (Psych) Judgement: Fair judgement present (Psych) Assessment & Plan Assessment & Plan (1) GERD (gastroesophageal reflux disease): Code(s): K21.9 - Gastro-esophageal reflux disease without esophagitis Category: Medical (2) Irritable bowel syndrome with both constipation and diarrhea: Code(s): K58.2 - Mixed irritable bowel syndrome Category: Medical (3) Tubular adenoma of colon: Comment: 2022= SESSILE SERRATED POLYP, repeat in 5 years aeb Code(s): D12.6 - Benign neoplasm of colon, unspecified Category: Medical Plan Citizen [place] #Heidi LIve SHe is here today with a female family member She continues on her omeprazole in the morning famotidine at night, her fiber therapy senna, dicyclomine . She has been ok in general with the stooling but has intermittent borborymus. She continues the bentyl, and we could consider imipramine but this may be constipating. She feels she is stable for now. ROV 6 mos. Coding Level of Care Code Est Pt Level 3 (99670) Diagnoses GERD (gastroesophageal reflux disease) K21.9 Irritable bowel syndrome with both constipation and diarrhea K58.2 Tubular adenoma of colon D12.6
[2024-09-09 12:51] VITALS: BP 104/50; PULSE 79; BMI 19.2
== END 2024-09-09 13:08 | disposition home or self-care (01) ==
PROVIDERS: PCP Internal Medicine; Visit Provider Nurse Practitioner
DX: K21.9 Gastro-esophageal reflux disease without esophagitis (principal); K58.2 Mixed irritable bowel syndrome; D12.6 Benign neoplasm of colon, unspecified
CPT/HCPCS: 99213

== ENCOUNTER → 2024-09-09 12:30 | Outpatient (BNVA) | payer MEDICAID, SELFPAY | PROVIDERS: PCP Internal Medicine; Visit Provider Nurse Practitioner | DX: K21.9 Gastro-esophageal reflux disease without esophagitis (principal); K58.2 Mixed irritable bowel syndrome; D12.6 Benign neoplasm of colon, unspecified | CPT/HCPCS: 99212 ==

== ENCOUNTER 2024-09-14 14:01 | Outpatient (AMB) | payer MEDICAID, SELFPAY ==
--- NOTE | 2024-09-14 14:18 | A.OFFVIS_ITS ---
Vital Signs 09/14/24 14:27 Height 5 ft 2 in Weight 108 lb 2 oz BMI 19.8 BP 130/58 L Blood Pressure Location Lt brachial Position Sitting Respiration 14 Pulse 78 Pulse Source Pulse Oximeter Pulse Oximetry (%) 98 Oxygen Delivery Method Room Air Intake Visit Reasons: PROCEDURE DISCUSSION Intake Note: Discuss procedure discussion. Reports pain 9/10. Outsole Compressor Required: Yes Outsole Compressor Services: Outsole Compressor Present Outsole Compressor Name: Voyce Allergies codeine [CODEINE] Allergy (Intermediate, Verified 09/14/24 14:30) DIZZY/NAUSEA, nausea/vomiting escitalopram [From LEXAPRO] Allergy (Intermediate, Verified 09/14/24 14:30) ? NAUSEA meperidine [MEPERIDINE] Allergy (Intermediate, Verified 09/14/24 14:30) NAUSEA morphine [MORPHINE] Allergy (Intermediate, Verified 09/14/24 14:30) PALPITATIONS, palpitation oxycodone [OXYCODONE] Allergy (Intermediate, Verified 09/14/24 14:30) PALPATATIONS, palpitations tramadol Allergy (Unknown, Verified 09/14/24 14:30) dizziness, nausea acetaminophen [From Percocet] Allergy (Verified 09/14/24 14:30) Shakiness HPI Comments Details: Diana is back in my office to discuss possibility of treatment of pain in the right shoulder. She was offered in the past intra-articular shoulder steroid injection, we also discussed possibility of treating her pain with interscalene nerve block and peripheral nerve stimulation of brachial plexus and interscalene positioned. Today she came in she stated that she absolutely negative about interscalene injection. She was thinking about steroid injection in the right shoulder. She wants to do it under sedation. She was asking multiple questions about sedation. I answered all this question to her satisfaction. And yet after my explanation patient decided to think about it and discuss it with relatives. She will give me a call about her decision. Implantable devices probably not very good alternative to treat this patient's pain. However sprint PNS could be done for this patient because it does not require psychological evaluation. Unfortunately the patient is negative about interscalene nerve injection which is 1st step for peripheral nerve stimulation. Prior: Complains on pain in the anterior and lateral right shoulder. She reports that she was evaluated by orthopedic surgeon Dr. Stephen and she was referred to pain management. Because of her pain she can not sleep normally can not do activities of daily living can not take care of herself she can not function normally. She reports her pain today is 10/10. She is on permanent disability. She is suffering from personality disorder. She was diagnose with borderline personality disorder and cluster B personality disorder. She had physical therapy for her shoulder, she had MRI and CT scan of her shoulder in [facility]. She went for physical therapy with [facility] few months ago and she received no help from physical therapy she also tried occupational therapy which was not helpful for her pain. In May she received therapeutic shoulder injection which was not helpful for her pain. The injection was not image guided. Her past medical history significant for headaches fatigue dizziness and fainting, angina and chest pain, depression personality disorder as above kidney stones liver disease digestive problems and arthritis. She was diagnosed with breast cancer in 2009 and she received breast cancer surgery. She also had right leg surgery. She denies smoking cigarettes drinking alcohol she drinks coffee and caffeinated beverages she denies recreational drugs. [facility] Medical History (Updated 09/09/24 @ 12:40 by MARICRUZ Melgar) Primary osteoarthritis of right hand Migraine Right shoulder pain Rotator cuff tendinitis Arthritis of right shoulder region Right hand pain Breast cancer, right Status post radiation therapy Anemia Diarrhea Depression Somatization disorder Migraine equivalent syndrome Anxiety Periodontal disease Fibromyalgia Surgical History (Updated 09/09/24 @ 13:00 by MARICRUZ Melgar) History of esophagogastroduodenoscopy (EGD) History of lumpectomy Hx of section Hx of shoulder surgery Hx of colonoscopy Family History Mother HTN (hypertension) Sister Breast cancer Bone cancer Colon polyps Sister Osteoporosis Hypercholesteremia Colon polyps Social History Household Members: None Housing: Apartment Are you a primary career portals teacher to a significant other at home: No Do you presently have visiting nurse or other home services: Yes (RAIMANN MACHINE OPERATOR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 Review of Systems Const Denies weight gain and Denies weight loss Eyes Denies blurry vision ENT Reports Normal hearing present and Denies sore throat Card Reports as per HPI Resp Denies change in phlegm color, Denies chest congestion and Denies cough GI Reports no additional complaints Denies urinary frequency and Denies dysuria Musc Reports as per HPI Neuro Reports no additional complaints, Reports Normal hearing present, Denies Abnormal speech present, Denies confusion and Denies Sensory deficit (Neuro) Psych Reports as per HPI and Denies confusion Physical Exam Vital Signs: Last Vital Signs Pulse 78 09/14/24 14:27 Resp 14 09/14/24 14:27 BP 130/58 L 09/14/24 14:27 Pulse Ox 98 09/14/24 14:27 Oxygen Delivery Method Room Air 09/14/24 14:27 BMI result Body Mass Index 19.8 Const General: No confusion Orientation/consciousness: No confusion Eyes General: appearance normal, both eyes and all related structures Pupils: Equal, round and reactive pupils present EOM: EOMs intact bilaterally Neck Neck: Yes full ROM Chest Chest palpation & inspection: normal inspection of the chest Resp Effort & Inspection: normal respiratory effort, able to speak in complete sentences, normal respiratory pattern, no audible wheezes and no cough Cardio Jugular venous distension: no JVD GI Inspection: Yes normal to inspection Neuro General: No confusion Cranial nerves: Yes Equal, round and reactive pupils present and Yes Normal hearing present Speech: No Abnormal speech present Gait exam (Neuro): Normal gait present Motor exam (neuro): 5/5 motor strength present throughout Sensory Exam: No Sensory deficit (Neuro) Extrem General: No pedal edema Psych Speech and movement: Normal speech and movement present Affect: normal affect Attitude: cooperative Thought process: Normal thought process present Thought content: Normal thought content present Insight: Good insight present (Psych) Judgement: Good judgement present (Psych) Assessment & Plan Assessment & Plan (1) Rotator cuff tendinitis: Code(s): M75.80 - Other shoulder lesions, unspecified shoulder Category: Medical Qualifiers: Laterality: right Qualified Code(s): M75.81 - Other shoulder lesions, right shoulder Plan: I offered this patient and I will perform therapeutic x-ray guided intra- articular injection into the right shoulder. If this will not help for the patient I will consider interscalene medial branch block in the attempt to help this patient's pain. Unfortunately she is suffering from 2 types of personality disorder. Possibility exists that she will not be able to pass psychological evaluation in preparation of the PNS of brachial plexus. Unfortunately she has negative about interscalene injection. The injection of the intra-articular steroids on right shoulder was discussed with the patient today and she decided to think about it. She wants to do it under anesthesia. She asked many questions about anesthesia. I explained as much as I could to her. She still to think about it and discuss it with her relatives. She will give us a call if she decides to go for the procedure. If she decides against it I recommended her to continue with her primary care physician. (2) Arthritis of right shoulder region: Code(s): M19.011 - Primary osteoarthritis, right shoulder Category: Medical (3) Chronic pain syndrome: Code(s): G89.4 - Chronic pain syndrome Category: Medical (4) Right shoulder pain: Code(s): M25.511 - Pain in right shoulder Category: Medical Plan She still to think about it and discuss it with her relatives. She will give us a call if she decides to go for the procedure. If she decides against it I recommended her to continue with her primary care physician. Coding Level of Care Code Est Pt Level 3 (05367) Diagnoses Tendinitis of right rotator cuff M75.81 Laterality: right Arthritis of right shoulder region M19.011 Chronic pain syndrome G89.4 Right shoulder pain M25.511
[2024-09-14 14:27] VITALS: BP 130/58; PULSE 78; RESP 14; O2SAT 98; BMI 19.8
== END 2024-09-14 14:47 | disposition home or self-care (01) ==
PROVIDERS: PCP Internal Medicine; Visit Provider Anesthesiology
DX: M75.81 Other shoulder lesions, right shoulder (principal); M19.011 Primary osteoarthritis, right shoulder; G89.4 Chronic pain syndrome; M25.511 Pain in right shoulder
CPT/HCPCS: 99213

== ENCOUNTER → 2024-09-14 14:01 | Outpatient (BNVA) | payer MEDICAID, SELFPAY | PROVIDERS: PCP Internal Medicine; Visit Provider Anesthesiology | DX: M75.81 Other shoulder lesions, right shoulder (principal); M19.011 Primary osteoarthritis, right shoulder; G89.4 Chronic pain syndrome | CPT/HCPCS: 99212 ==

== ENCOUNTER 2024-09-23 09:54 | Outpatient (AMB) | payer MEDICAID, SELFPAY ==
[2024-09-23 09:56] VITALS: BP 94/62; PULSE 83; O2SAT 97; BMI 20.1
--- NOTE | 2024-09-23 09:56 | MHC.OFFVIS ---
Vital Signs 09/23/24 09:56 Height 5 ft 2 in Weight 110 lb BMI 20.1 BP 94/62 Blood Pressure Location Rt brachial Position Sitting Pulse 83 Pulse Source Doppler Pulse Oximetry (%) 97 Oxygen Delivery Method Room Air Intake Visit Reasons: Dyspnea on Exertion Forging Machine Operator Required: Yes Forging Machine Operator Name: Zara Hammer.L.M Allergies codeine [CODEINE] Allergy (Intermediate, Verified 09/23/24 10:03) DIZZY/NAUSEA, nausea/vomiting escitalopram [From LEXAPRO] Allergy (Intermediate, Verified 09/23/24 10:03) ? NAUSEA meperidine [MEPERIDINE] Allergy (Intermediate, Verified 09/23/24 10:03) NAUSEA morphine [MORPHINE] Allergy (Intermediate, Verified 09/23/24 10:03) PALPITATIONS, palpitation oxycodone [OXYCODONE] Allergy (Intermediate, Verified 09/23/24 10:03) PALPATATIONS, palpitations tramadol Allergy (Unknown, Verified 09/23/24 10:03) dizziness, nausea acetaminophen [From Percocet] Allergy (Verified 09/23/24 10:03) Shakiness HPI HPI Dyspnea on Exertion: Details: 59-year-old lady, former minimal smoker, with underlying history of right breast cancer status post lumpectomy, chemo, and radiation in 2010 referred for evaluation of dyspnea on exertion that occurs after patient walks for several blocks.? She has had a recent negative cardiac workup.? Patient denies prior personal history of lung disease.? She has lots of first-degree relatives with asthma.? Patient has had COVID back in December of 2020, however her dyspnea symptoms predate but got worse after her COVID infection.? She denies any wheezing, cough, sputum production.? She has multiple environmental allergies. Her pulmonary function test showed mild decrease in diffusion capacity and otherwise has been unremarkable.? er CT chest is normal and pulmonary function test that is essentially normal with only minor defect in diffusion capacity that does not explain her symptoms. She was tried on Telegy with no significant changes in underlying symptomatology either. She continues on albuterol MDI as needed with significant symptomatic benefit. [facility] Medical History (Updated 09/23/24 @ 10:32 by Anthony Curtis MD) Primary osteoarthritis of right hand Migraine Right shoulder pain Rotator cuff tendinitis Arthritis of right shoulder region Right hand pain Breast cancer, right Status post radiation therapy Anemia Diarrhea Depression Somatization disorder Migraine equivalent syndrome Anxiety Periodontal disease Fibromyalgia Surgical History (Updated 09/09/24 @ 13:00 by MARICRUZ Melgar) History of esophagogastroduodenoscopy (EGD) History of lumpectomy Hx of section Hx of shoulder surgery Hx of colonoscopy Family History Mother HTN (hypertension) Sister Breast cancer Bone cancer Colon polyps Sister Osteoporosis Hypercholesteremia Colon polyps Social History Household Members: None Housing: Apartment Are you a primary customer care agent to a significant other at home: No Do you presently have visiting nurse or other home services: Yes (COMPUTER PROGRAMMER CHIEF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 Review of Systems Const Denies daytime sleepiness, Denies excessive sweating, Denies fatigue, Denies fever(s), Denies lethargy, Denies malaise, Denies night sweats, Denies snoring and Denies weight loss Eyes Denies blurry vision and Denies itchy eyes ENT Denies nasal congestion, Denies post nasal drip, Denies sinus pain, Denies sinus pressure and Denies other ( Thrush) Card Denies chest pain, Denies pedal edema, Denies dyspnea, Reports dyspnea on exertion, Denies orthopnea and Denies paroxysmal nocturnal dyspnea Resp Denies cough, Denies hemoptysis, Denies excessive phlegm production, Denies dyspnea, Reports dyspnea on exertion, Denies snoring and Reports wheezing GI Denies abdominal pain and Denies heartburn Musc Denies myalgias, Denies arthralgias and Denies joint swelling Skin/Breast Denies rash Neuro Denies memory loss and Denies seizure-like activity Psych Denies abnormal sleep pattern, Denies anxiety and Denies memory loss Endo Denies excessive sweating, Denies fatigue and Denies heat intolerance Marko/Lymph Denies easy bruising Aller/Immun Denies itchy eyes, Denies seasonal rhinorrhea and Reports wheezing Physical Exam Vital Signs: Last Vital Signs Pulse 83 09/23/24 09:56 BP 94/62 09/23/24 09:56 Pulse Ox 97 09/23/24 09:56 Oxygen Delivery Method Room Air 09/23/24 09:56 BMI result Body Mass Index 20.1 Const General: no acute distress and alert Nutritional Appearance: not obese Orientation/consciousness: Other orientation findings ( oriented) HEENT Head: Yes atraumatic Eyes General: appearance normal, both eyes and all related structures Sclerae: sclerae normal EOM: EOMs intact bilaterally Neck Neck: Yes supple Lymphatic: no lymphadenopathy noted Resp Effort & Inspection: normal respiratory effort and no use of accessory muscles Auscultation: clear to auscultation bilaterally Cardio Rate: regular rate Rhythm: regular rhythm Heart sounds: no gallops, no murmurs and no rubs Skin General skin exam: other ( warm) Extrem General: No clubbing, No cyanosis and No edema Assessment & Plan Assessment & Plan (1) Reactive airway disease: Code(s): J45.909 - Unspecified asthma, uncomplicated Category: Medical Plan: Symptoms consistent with reactive airway disease, though with negative testing. Previously tried on Trelegy with suboptimal response, but may be secondary to poor tolerance of powder inhalers. Will try on Breztri. Continue albuterol MDI. (2) Somatization disorder: Code(s): F45.0 - Somatization disorder Category: Medical Plan: Also may have significant component of somatization. If no significant improvement, will consider CPET testing. Medications: New mfrsnrcqwc-zdnrcqjo-xfjfsdcjvd 160-9-4.8 mcg/actuation (Breztri Aerosphere) 2 inhalations inhalation BID 1 ea 6RF Discontinued fluticasone propion-salmeterol 115-21 mcg/actuation (Advair HFA) Discontinued Reason: Doctor's Order 2 puffs inhalation BID 30 days 12 grams 6RF Coding Level of Care Code Est Pt Level 4 (15845) Diagnoses Reactive airway disease J45.909 Somatization disorder F45.0
== END 2024-09-23 10:16 | disposition home or self-care (01) ==
PROVIDERS: PCP Internal Medicine; Visit Provider Internal Medicine Pulmonary Disease
DX: J45.909 Unspecified asthma, uncomplicated (principal); F45.0 Somatization disorder
CPT/HCPCS: 99214

== ENCOUNTER → 2024-09-23 09:54 | Outpatient (BNVA) | payer MEDICAID, SELFPAY | PROVIDERS: PCP Internal Medicine; Visit Provider Internal Medicine Pulmonary Disease | DX: J45.909 Unspecified asthma, uncomplicated (principal); F45.0 Somatization disorder | CPT/HCPCS: 99212 ==

== ENCOUNTER 2024-09-26 10:17 | Outpatient (REF) | payer MEDICAID, SELFPAY ==
--- NOTE | ~2024-09-26 | XR_ITS ---
EXAMINATION: XR KNEE 3 VIEWS LEFT FAX ARE KNEE 1 VIEW RIGHT CLINICAL INFORMATION: M25.562 - Pain in left knee COMPARISON: None available. TECHNIQUE: AP bilateral knee standing view, as well as left knee lateral and patellofemoral views. FINDINGS: Left knee: No fracture, dislocation, or focal bony abnormality. The joint spaces are preserved. Alignment is normal. No evidence of joint effusion. Normal patellofemoral joint. No soft tissue abnormalities. Right knee: Normal AP appearance. No arthritic findings. No acute findings. XR/XR knee RT 1V IMPRESSION: Normal bilateral knees. Electronically signed by: Mathieu Lepe MD 09/27/2024 12:27 PM [facility]
--- NOTE | ~2024-09-26 | XR_ITS ---
EXAMINATION: XR KNEE 3 VIEWS LEFT FAX ARE KNEE 1 VIEW RIGHT CLINICAL INFORMATION: M25.562 - Pain in left knee COMPARISON: None available. TECHNIQUE: AP bilateral knee standing view, as well as left knee lateral and patellofemoral views. FINDINGS: Left knee: No fracture, dislocation, or focal bony abnormality. The joint spaces are preserved. Alignment is normal. No evidence of joint effusion. Normal patellofemoral joint. No soft tissue abnormalities. Right knee: Normal AP appearance. No arthritic findings. No acute findings. XR/XR knee LT 3V IMPRESSION: Normal bilateral knees. Electronically signed by: Mathieu Lepe MD 09/27/2024 12:27 PM [facility]
== END 2024-09-26 10:18 | disposition home or self-care (01) ==
LOC: HO.HOSX 10:17
PROVIDERS: Visit Provider Physician Assistant
DX: M25.562 Pain in left knee (principal); M25.561 Pain in right knee; M17.11 Unilateral primary osteoarthritis, right knee
CPT/HCPCS: 20610; 73560; 73562; 99212; J1010; J2003

== ENCOUNTER 2024-09-26 11:22 | Outpatient (AMB) | payer MEDICAID, SELFPAY ==
--- NOTE | 2024-09-26 11:29 | A.OFFVIS_ITS ---
Vital Signs 09/26/24 11:30 Height 5 ft 2 in Weight 110 lb BMI 20.1 Intake Visit Reasons: New prob- Left knee OA Intake Note: Diana a 59 year old female who presents today for an evaluation of left knee pain. Patient reports bilateral knee pain, states her pain is mostly in her right knee, however lately her left knee has been causing her more pain. She attended PT with not much relief. Her pain is located at the anterior aspect of knee. She has frequent numbness and tingling in her calf and in her foot. Finds some relief naproxen and Tylenol. Printing Table Hand Required: Yes Printing Table Hand Name: Adis [id number] Allergies codeine [CODEINE] Allergy (Intermediate, Verified 09/26/24 11:30) DIZZY/NAUSEA, nausea/vomiting escitalopram [From LEXAPRO] Allergy (Intermediate, Verified 09/26/24 11:30) ? NAUSEA meperidine [MEPERIDINE] Allergy (Intermediate, Verified 09/26/24 11:30) NAUSEA morphine [MORPHINE] Allergy (Intermediate, Verified 09/26/24 11:30) PALPITATIONS, palpitation oxycodone [OXYCODONE] Allergy (Intermediate, Verified 09/26/24 11:30) PALPATATIONS, palpitations tramadol Allergy (Unknown, Verified 09/26/24 11:30) dizziness, nausea acetaminophen [From Percocet] Allergy (Verified 09/26/24 11:30) Shakiness HPI HPI New prob- Left knee OA: Details: 59-year-old female who presents to the office today with an unix administrator for an evaluation of left knee pain. She states she has pain at the anterior aspect of her bilateral knees that is currently worse on her left knee. Her pain is aggravated with stair use and ambulation. She also reports frequent numbness and tingling in her calf and foot area. She was seen by her PCP who ordered physical therapy which did not provide her much relief. She finds mild relief with naproxen and Tylenol. [facility] Medical History (Updated 09/26/24 @ 11:55 by Denilson Forman PA-C) Primary osteoarthritis of right hand Migraine Right shoulder pain Rotator cuff tendinitis Arthritis of right shoulder region Right hand pain Breast cancer, right Status post radiation therapy Anemia Diarrhea Depression Somatization disorder Migraine equivalent syndrome Anxiety Periodontal disease Fibromyalgia Surgical History History of esophagogastroduodenoscopy (EGD) History of lumpectomy Hx of section Hx of shoulder surgery Hx of colonoscopy Family History Mother HTN (hypertension) Sister Breast cancer Bone cancer Colon polyps Sister Osteoporosis Hypercholesteremia Colon polyps Social History Household Members: None Housing: Apartment Are you a primary healthcare corporate account director to a significant other at home: No Do you presently have visiting nurse or other home services: Yes (IDENTIFICATION AND RECORDS COMMANDER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 Lateral retropatellar tenderness present. Full ROM with crepitus. Negative Jenna?s. No ligamentous laxity. NVI. Office Procedures AMB Joint Injection/Aspiration Joint Injection/Aspiration Primary Site: left knee Prep: site was prepped using aseptic technique, ethochloride spray was applied and injection warnings given Injected: 80 mg of, DepoMedrol, with 8 mL of, 1% plain lidocaine and in the joint Approach Used: anterolateral Procedure: The patient tolerated the procedure well and there was some relief with the local anesthesia Coding 29465 - Glenohumeral/Tronchanteric Bursa/Intraarticular Procedure code (CPT) selection complete Results Reviewed Results Reviewed: Xrays were obtained in the office today and personally reviewed by me of the right knee show mild medial compartment oa with pf oa Assessment & Plan Assessment & Plan (1) Osteoarthritis of right knee: Code(s): M17.11 - Unilateral primary osteoarthritis, right knee Category: Medical Plan We discussed options today, which include steroid injection. The patient did con sent to move forward with the left knee injection, which was tolerated well. I recommended rest, ice, and elevation and OTC anti-inflammatories as needed for discomfort. If symptoms persist or worsens over the next 6-8 weeks, patient will contact the office, otherwise follow-up as needed. I did send a prescription of Celebrex to her pharmacy today. Orders: Orders XR knee RT 1V Today M25.561 - Pain in right knee XR knee LT 3V Today M25.562 - Pain in left knee Medications: New celecoxib (Celebrex) 200 mg PO BID 60 caps 3RF 30 days Patient Instructions: Scribed for Denilson Forman PA-C, by David Rutherford medical legal investigator, on 09/26/2024 at 11:30 AM EST.? I, Denilson Forman PA-C, have personally reviewed and agree with the information entered by the scribe. Coding Level of Care Code Est Pt Level 3 (31900) Complex EM visit Add On G2211 Diagnoses Osteoarthritis of right knee M17.11 CPT Codes Coding - Joint 7: 94570 - Glenohumeral/Tronchanteric Bursa/Intraarticular ( [id number])
[2024-09-26 11:30] VITALS: BMI 20.1
== END 2024-09-26 13:28 | disposition home or self-care (01) ==
PROVIDERS: PCP Internal Medicine; Visit Provider Physician Assistant
DX: M17.11 Unilateral primary osteoarthritis, right knee (principal)
CPT/HCPCS: 20610; 99214

== ENCOUNTER → 2024-09-26 11:24 | Outpatient (BNV) | payer MEDICAID, SELFPAY | PROVIDERS: Visit Provider Radiology Diagnostic Radiology | DX: M25.562 Pain in left knee (principal); M25.561 Pain in right knee | CPT/HCPCS: 73560; 73562 ==

== ENCOUNTER 2024-11-04 13:42 | Outpatient (AMB) | payer MEDICAID, SELFPAY ==
[2024-11-04 13:43] VITALS: BP 109/62; PULSE 77; O2SAT 99; BMI 19.4
--- NOTE | 2024-11-04 13:43 | MHC.OFFVIS ---
Vital Signs 11/04/24 13:43 Height 5 ft 2 in Weight 106 lb BMI 19.4 BP 109/62 Blood Pressure Location Lt brachial Position Sitting Pulse 77 Pulse Source Doppler Pulse Oximetry (%) 99 Oxygen Delivery Method Room Air Intake Visit Reasons: dyspnea As400 Programmer Analyst Required: Yes As400 Programmer Analyst Name: Zara Fernandez Frida Allergies codeine [CODEINE] Allergy (Intermediate, Verified 09/26/24 11:30) DIZZY/NAUSEA, nausea/vomiting escitalopram [From LEXAPRO] Allergy (Intermediate, Verified 09/26/24 11:30) ? NAUSEA meperidine [MEPERIDINE] Allergy (Intermediate, Verified 09/26/24 11:30) NAUSEA morphine [MORPHINE] Allergy (Intermediate, Verified 09/26/24 11:30) PALPITATIONS, palpitation oxycodone [OXYCODONE] Allergy (Intermediate, Verified 09/26/24 11:30) PALPATATIONS, palpitations tramadol Allergy (Unknown, Verified 09/26/24 11:30) dizziness, nausea acetaminophen [From Percocet] Allergy (Verified 09/26/24 11:30) Shakiness HPI HPI dyspnea: Details: 59-year-old lady, former minimal smoker, with underlying history of right breast cancer status post lumpectomy, chemo, and radiation in 2010 referred for evaluation of dyspnea on exertion that occurs after patient walks for several blocks.? She has had a recent negative cardiac workup.? Patient denies prior personal history of lung disease.? She has lots of first-degree relatives with asthma.? Patient has had COVID back in December of 2020, however her dyspnea symptoms predate but got worse after her COVID infection.? She denies any wheezing, cough, sputum production.? She has multiple environmental allergies. Her pulmonary function test showed mild decrease in diffusion capacity and otherwise has been unremarkable.? er CT chest is normal and pulmonary function test that is essentially normal with only minor defect in diffusion capacity that does not explain her symptoms. Patient was not able tolerate trilogy secondary to it being powder inhaler. She was not able to receive BrezTri. Her Bevespi appeal is pending. [facility] Medical History (Updated 09/26/24 @ 11:55 by Denilson Forman PA-C) Primary osteoarthritis of right hand Migraine Right shoulder pain Rotator cuff tendinitis Arthritis of right shoulder region Right hand pain Breast cancer, right Status post radiation therapy Anemia Diarrhea Depression Somatization disorder Migraine equivalent syndrome Anxiety Periodontal disease Fibromyalgia Surgical History History of esophagogastroduodenoscopy (EGD) History of lumpectomy Hx of section Hx of shoulder surgery Hx of colonoscopy Family History Mother HTN (hypertension) Sister Breast cancer Bone cancer Colon polyps Sister Osteoporosis Hypercholesteremia Colon polyps Social History Household Members: None Housing: Apartment Are you a primary child day care center worker to a significant other at home: No Do you presently have visiting nurse or other home services: Yes (SALESPERSON TRAILERS AND MOTOR HOMES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 Review of Systems Const Denies daytime sleepiness, Denies excessive sweating, Denies fatigue, Denies fever(s), Denies lethargy, Denies malaise, Denies night sweats, Denies snoring and Denies weight loss Eyes Denies blurry vision and Denies itchy eyes ENT Denies nasal congestion, Denies post nasal drip, Denies sinus pain, Denies sinus pressure and Denies other ( Thrush) Card Denies chest pain, Denies pedal edema, Denies dyspnea, Denies orthopnea and Denies paroxysmal nocturnal dyspnea Resp Denies cough, Denies hemoptysis, Denies excessive phlegm production, Denies dyspnea, Denies snoring and Reports wheezing GI Denies abdominal pain and Denies heartburn Musc Denies myalgias, Denies arthralgias and Denies joint swelling Skin/Breast Denies rash Neuro Denies memory loss and Denies seizure-like activity Psych Denies abnormal sleep pattern, Denies anxiety and Denies memory loss Endo Denies excessive sweating, Denies fatigue and Denies heat intolerance Marko/Lymph Denies easy bruising Aller/Immun Denies itchy eyes, Denies seasonal rhinorrhea and Reports wheezing Physical Exam Vital Signs: Last Vital Signs Pulse 77 11/04/24 13:43 BP 109/62 11/04/24 13:43 Pulse Ox 99 11/04/24 13:43 Oxygen Delivery Method Room Air 11/04/24 13:43 BMI result Body Mass Index 19.4 Const General: no acute distress and alert Nutritional Appearance: not obese Orientation/consciousness: Other orientation findings ( oriented) HEENT Head: Yes atraumatic Eyes General: appearance normal, both eyes and all related structures Sclerae: sclerae normal EOM: EOMs intact bilaterally Neck Neck: Yes supple Lymphatic: no lymphadenopathy noted Resp Effort & Inspection: normal respiratory effort and no use of accessory muscles Auscultation: clear to auscultation bilaterally Cardio Rate: regular rate Rhythm: regular rhythm Heart sounds: no gallops, no murmurs and no rubs Skin General skin exam: other ( warm) Extrem General: No clubbing, No cyanosis and No edema Assessment & Plan Assessment & Plan (1) Reactive airway disease: Code(s): J45.909 - Unspecified asthma, uncomplicated Category: Medical Plan: Suboptimally controlled on albuterol MDI. Unable to tolerate powder inhaler. Shantelle not approved by her insurance. Bevespi appeal is pending. Will try Symbicort. Continue albuterol MDI. Medications: New budesonide-formoterol 160-4.5 mcg/actuation (Symbicort) 2 puffs inhalation BID 10.2 grams 6RF Discontinued budesonide 180 mcg/actuation (Pulmicort Flexhaler) Discontinued Reason: Doctor's Order 2 inhalations inhalation BID 1 ea 6RF Coding Level of Care Code Est Pt Level 3 (77093) Diagnoses Reactive airway disease J45.909
== END 2024-11-04 14:26 | disposition home or self-care (01) ==
PROVIDERS: Visit Provider Internal Medicine Pulmonary Disease
DX: J45.909 Unspecified asthma, uncomplicated (principal)
CPT/HCPCS: 99213

== ENCOUNTER → 2024-11-04 13:42 | Outpatient (BNVA) | payer MEDICAID, SELFPAY | PROVIDERS: Visit Provider Internal Medicine Pulmonary Disease | DX: J45.909 Unspecified asthma, uncomplicated (principal) | CPT/HCPCS: 99212 ==

== ENCOUNTER 2024-11-09 13:44 | Outpatient (AMB) | payer MEDICAID, SELFPAY ==
--- NOTE | 2024-11-09 13:53 | MHC.OFFVIS ---
Vital Signs 11/09/24 13:58 Height 5 ft 2 in Weight 106 lb BMI 19.4 Intake Visit Reasons: OV-Lt knee pain Intake Note: Diana is a 59 year old female who presents today for a follow up of left knee OA, last injection 09/26/24. Patient reports injection did not help it made her pain worse. States celebrex does not help. She has constant pain at the medial aspect of knee and at times her pain becomes unbearable. She complains of swelling. Manager Of Procurement Required: Yes Manager Of Procurement Services: Manager Of Procurement Present Manager Of Procurement Name: Corbin ID#[id number] Information Interpreted: non-clinical & clinical Allergies codeine [CODEINE] Allergy (Intermediate, Verified 09/26/24 11:30) DIZZY/NAUSEA, nausea/vomiting escitalopram [From LEXAPRO] Allergy (Intermediate, Verified 09/26/24 11:30) ? NAUSEA meperidine [MEPERIDINE] Allergy (Intermediate, Verified 09/26/24 11:30) NAUSEA morphine [MORPHINE] Allergy (Intermediate, Verified 09/26/24 11:30) PALPITATIONS, palpitation oxycodone [OXYCODONE] Allergy (Intermediate, Verified 09/26/24 11:30) PALPATATIONS, palpitations tramadol Allergy (Unknown, Verified 09/26/24 11:30) dizziness, nausea acetaminophen [From Percocet] Allergy (Verified 09/26/24 11:30) Shakiness HPI HPI OV-Lt knee pain: Details: 59-year-old female returns to the office today for follow-up left knee pain. She states she had no relief with the injection and continues to have pain with daily activities. [facility] Medical History (Updated 11/09/24 @ 14:06 by Denilson Forman PA-C) Primary osteoarthritis of right hand Migraine Right shoulder pain Rotator cuff tendinitis Arthritis of right shoulder region Right hand pain Breast cancer, right Status post radiation therapy Anemia Diarrhea Depression Somatization disorder Migraine equivalent syndrome Anxiety Periodontal disease Fibromyalgia Surgical History History of esophagogastroduodenoscopy (EGD) History of lumpectomy Hx of section Hx of shoulder surgery Hx of colonoscopy Family History Mother HTN (hypertension) Sister Breast cancer Bone cancer Colon polyps Sister Osteoporosis Hypercholesteremia Colon polyps Social History Household Members: None Housing: Apartment Are you a primary skin care instructor to a significant other at home: No Do you presently have visiting nurse or other home services: Yes (FIRE PREVENTION ENGINEER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 Lateral retropatellar tenderness present. Full ROM with crepitus. Negative Jenna?s. No ligamentous laxity. NVI. Assessment & Plan Assessment & Plan (1) Patellofemoral arthritis of left knee: Code(s): M17.12 - Unilateral primary osteoarthritis, left knee Category: Medical (2) Internal derangement of left knee: Code(s): M23.92 - Unspecified internal derangement of left knee Category: Medical Plan Given she has failed conservative management with physical therapy exercises and cortisone injections will proceed with an MRI of the left knee to further evaluate the surrounding structures and cartilage. Once this is complete she will see me back to discuss the next step in her treatment. Coding Level of Care Code Est Pt Level 3 (41191) Complex EM visit Add On G2211 Diagnoses Patellofemoral arthritis of left knee M17.12 Internal derangement of left knee M23.92
[2024-11-09 13:58] VITALS: BMI 19.4
== END 2024-11-09 14:07 | disposition home or self-care (01) ==
PROVIDERS: Visit Provider Physician Assistant
DX: M17.12 Unilateral primary osteoarthritis, left knee (principal); M23.92 Unspecified internal derangement of left knee
CPT/HCPCS: 99213

== ENCOUNTER → 2024-11-09 13:44 | Outpatient (BNVA) | payer MEDICAID, SELFPAY | PROVIDERS: Visit Provider Physician Assistant | DX: M17.12 Unilateral primary osteoarthritis, left knee (principal); M23.92 Unspecified internal derangement of left knee | CPT/HCPCS: 99212 ==

== ENCOUNTER 2024-11-29 08:38 | Outpatient (REF) | payer MEDICAID, SELFPAY ==
--- OUTSIDE RECORDS SUMMARY | 2024-11-29 09:00 | XMS_ITS | Encounter Summary ---
Author Organization [employer] Address [address] [facility] [address] [place] [address] Care Team Providers Care Core Stripper Name Role Phone Umm Coley MD Primary Care Provider + Reason for Visit * Reason Onset Date Comments appt 01/08/2024 Encounter Details Date Type Department Care Team ([facility] st Contact Info) Description 01/08/2024 Telephone [facility] [address] [place], [place] [phone] Homer Strong, DMD [address] [place] [address] appt Social History Tobacco Use Types Packs/Day Years Used Date Smoking Tobacco: Never Passive Smoke Exposure: Never Smokeless Tobacco: Never Alcohol Use Standard Drinks/Week Comments Never 0 (1 standard drink = 0.6 oz pur e alcohol) Depression Answer Date Recorded Patient Health Questionnaire-9 Score 21 11/09/2023 Patient Health Questionnaire-9 Score 21 11/09/2023 Last PHQ-9: Questionnaire Data Not on file 0 11/09/2023 Housing Stability Answer Date Recorded What is your housing situation today? I have sylvia hester 08/19/[address] you li ve. Do you have problems with any of the following? None of the above 08/19/2023 Food Insecurity Answer Date Recorded Within the past 12 months, y ou worried that your food would run out before you got money to buy more: Never True 08/19/2023 Within the past 12 months,th e food you bought just didn't last and you didn't have enough money to get more: Never True Transportation Answer Date Recorded In the past 12 months, has l ack of transportation kept you from medical appts, meetings, work or from getting things needed for daily living? No 08/19/2023 Utilities Answer Date Recorded In the past 12 months, has t he electric, gas, oil or water company threatened to shut off services in your home? No 08/19/2023 Depression Answer Date Recorded Patient Health Questionnaire-2 Score 6 11/09/2023 Comments Unknown Sex and Gender Information Value Date Recorded Sex Assigned at Female 09/01/2022 10:16 AM EDT Legal Sex Female 10:16 AM EDT Gender Identity Female 09/01/2022 10:16 AM EDT Sexual Orientation Straight 09/01/2022 10 :16 AM EDT documented as of this encounter Miscellaneous Notes * Telephone Encounter - Scarlet Hall - 01/08/2024 10:42 AM EST Patient was told that she was on the waiting list to see DR. Strong. 05/26/2023 appt notes by provider state that patient needs an evaluation for RCT but appt not requested. She is looking to see provider. Pls reach out to patient for scheduling. documented in this encounter Plan of Treatment Upcoming Encounters Date Type Department Care Team (Late st Contact Info) Description 03/08/2025 10:00 AM EDT Office Visit [facility] [address] [place] [address] Elzbieta, Mariangel [address] [place] [address] documented as of this encounter Visit Diagnoses Not on filedocumented in this encounter Additional Health Concerns Assessment Noted Time PHQ-9 Depression Total Score: 21 024 11:31 AM EST documented as of this encounter Care Teams Core Stripper Relationship Specialty Start Date End Date Umm Coley MD [address] [place] [address] PCP - General Family Medicine 10/31/16 Eva Nunez Consumer Lending Manager 04/05/24 07/06/24 [facility] 05/11/24 11/17/24 [facility] 11/14/24 documented as of this encounter
--- OUTSIDE RECORDS SUMMARY | 2024-11-29 09:01 | XMS_ITS | Clinical Summary ---
Author Organization Unknown Care Team Providers Care [employer] Network Systems Administrator Name Role Phone DANIEL JACOBS, SHALONDA Unavailable Unavailable DUANE YODER, TEE Unavailable Unavailable Payers Payer Name Policy Type Policy Number Effective Date Expira tion Date MEDICAID [facility] [id number] Problems Condition Name Condition Details Condition Category Status Onset Date Resolution Date Last Treatment Date Treating Clinician Comments GENERALIZED ANXIETY DISORDER Active 1- 00:00: 00 BORDERLINE PERSONALITY DISORDER Active 02-21 00:00: 00 POST-TRAUMAT IC STRESS DISORDER, UNSPECIFIED Active 02-21 00:00: 00 BIPOLAR DISORDER, UNSPECIFIED Active 02-21 00:00: 00 FIBROMYALGIA Active 10 00:00: 00 MIGRAINE W/O AURA, NOT INTRACTABLE, W/O STATUS MIGRAINOSUS Active 7-12 00:00: 00 POLYNEUROPAT HY, UNSPECIFIED Active 3-14 00:00: 00 LUMBAGO WITH SCIATICA, LEFT SIDE Active 1-06 00:00: 00 PERSONAL HISTORY OF MALIGNANT NEOPLASM OF BREAST Active 3-14 00:00: 00 HISTORY OF FALLING Active 4-12 00:00: 00 OTH DISRD OF BONE DENSITY AND STRUCTURE, UNSPECIFIED SITE Active 5-12 00:00: 00 OTHER JAIL (CURRENT) DRUG THERAPY Active 1-15 00:00: 00 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 Ordering Clinician Indication Dosage Frequency Signature (SIG) Comments Components Advair HFA 115 mcg-21 mcg/actuati on aerosol inhaler 01-20 00:00: 00 Yes [id number] Per instruc tions DOS VECES AL D Per instructio ns DOS VECES AL D (route: inhalation ) Med Classific ation: Respirato ry Therapy Agents magnesium oxide 400 mg (241.3 mg magnesium) tablet 01-30 00:00: 00 11-14 00:00 :00 No [id number] Per instruc tions TOME NAIMA TABLETA TODOS LOS D Per instructio ns TOME NAIMA TABLETA TODOS LOS D (route: oral) Med Classific ation: Electroly te Balance-N utritiona l Products buspirone 15 mg tablet 01-16 00:00: 00 Yes [id number] Per instruc tions TOME NAIMA TABLETA CHEMA VECES AL D Per instructio ns TOME NAIMA TABLETA CHEMA VECES AL D (route: oral) Med Classific ation: Central Nervous System Agents melatonin 5 mg tablet 01-30 00:00: 00 Yes [id number] Per instruc tions EVERYDAY AT 5 PM FOR 2 WEEKS THEN MAY INCREASE TO 2 TABS E VERYDAY AT Per instructio ns EVERYDAY AT 5 PM FOR 2 WEEKS THEN MAY INCREASE TO 2 TABS E VERYDAY AT (route: oral) Med Classific ation: Central Nervous System Agents loratadine 10 mg tablet 01-04 00:00: 00 Yes [id number] Per instruc tions TOME NAIMA TABLETA TODOS LOS D Per instructio ns TOME NAIMA TABLETA TODOS LOS D (route: oral) Med Classific ation: Respirato ry Therapy Agents senna 8.6 mg tablet 01-30 00:00: 00 Yes [id number] Per instruc tions TODOS LOS D Per instructio ns TODOS LOS D (route: oral) Med Classific ation: Gastroint estinal Therapy Agents omeprazole 20 mg capsule,del ayed release 01-27 00:00: 00 Yes [id number] Per instruc tions TODOS LOS D Per instructio ns TODOS LOS D (route: oral) Med Classific ation: Gastroint estinal Therapy Agents mirtazapine 45 mg tablet 24 00:00: 00 Yes [id number] Per instruc tions AT BEDTIME DIRECTED Per instructio ns AT BEDTIME DIRECTED (route: oral) Med Classific ation: Central Nervous System Agents famotidine 40 mg tablet 01-30 00:00: 00 11-14 00:00 :00 No [id number] Per instruc tions Per instructio ns (route: oral) Med Classific ation: Gastroint estinal Therapy Agents olanzapine 20 mg tablet 01-30 00:00: 00 Yes [id number] Per instruc tions AT BEDTIME Per instructio ns AT BEDTIME (route: oral) Med Classific ation: Central Nervous System Agents clonazepam 1 mg tablet 01-08 00:00: 00 Yes [id number] Per instruc tions TOME NAIMA TABLETA DOS VECES AL D Per instructio ns TOME NAIMA TABLETA DOS VECES AL D (route: oral) Med Classific ation: Central Nervous System Agents dicyclomine 20 mg tablet 01-08 00:00: 00 Yes [id number] Per instruc tions CUATRO VECES AL D Per instructio ns CUATRO VECES AL D (route: oral) Med Classific ation: Gastroint estinal Therapy Agents amlodipine 2.5 mg tablet 01-19 00:00: 00 11-14 00:00 :00 No [id number] Per instruc tions TOME NIAMA TABLETA TODOS LOS D Per instructio ns TOME NAIMA TABLETA TODOS LOS D (route: oral) Med Classific ation: Cardiovas cular Therapy Agents sertraline 100 mg tablet 17 00:00: 00 Yes [id number] Per instruc tions TODOS LOS D Per instructio ns TODOS LOS D (route: oral) Med Classific ation: Central Nervous System Agents nabumetone 500 mg tablet 01-31 00:00: 00 11-14 00:00 :00 No [id number] Per instruc tions TOME NAIMA TABLETA DOS VECES AL D Per instructio ns TOME NAIMA TABLETA DOS VECES AL D (route: oral) Med Classific ation: Analgesic , Anti-infl ammatory or Antipyret ic amitriptyli ne 50 mg tablet 01-27 00:00: 00 Yes [id number] Per instruc tions TOME NAIMA TABLETA TODOS LOS D AL ACOSTARSE FOR 30 DAYS Per instructio ns TOME NAIMA TABLETA TODOS LOS D AL ACOSTARSE FOR 30 DAYS (route: oral) Med Classific ation: Central Nervous System Agents prazosin 2 mg capsule 01-22 00:00: 00 Yes [id number] Per instruc tions TODOS LOS D Per instructio ns TODOS LOS D (route: oral) Med Classific ation: Cardiovas cular Therapy Agents cholecalcif juan (vitamin D3) 50 mcg (2,000 unit) capsule 01-08 00:00: 00 Yes [id number] Per instruc tions PSULA TODOS LOS D Per instructio ns PSULA TODOS LOS D (route: oral) Med Classific ation: Electroly te Balance-N utritiona l Products cyanocobala min (vit B-12) 100 mcg tablet 01-16 00:00: 00 Yes [id number] Per instruc tions TODOS LOS D Per instructio ns TODOS LOS D (route: oral) Med Classific ation: Electroly te Balance-N utritiona l Products FeroSul 325 mg (65 mg iron) tablet 11-13 00:00: 00 Yes [id number] 325 mg 3 TIMES A WEEK 325 mg 3 TIMES A WEEK (route: oral) Med Classific ation: Electroly te Balance-N utritiona l Products Vitamin C 500 mg chewable tablet 11-13 00:00: 00 Yes [id number] 500 mg 3 TIMES A WEEK 500 mg 3 TIMES A WEEK (route: oral) Med Classific ation: Electroly te Balance-N utritiona l Products Vital Signs Vital Name Observation Time Observation Value Commen ts Temperature 2024-11-24 11:20:00.000 96.6 [degF] Temperature 2024-11-23 12:35:00.000 97.1 [degF] Temperature 2024-11-22 13:52:00.000 96.7 [degF] Temperature 2024-11-19 10:47:00.000 96.8 [degF] Temperature 2024-11-14 11:37:00.000 97.1 [degF] BMI (%) 2024-11-14 11:37:00.000 19 kg/m2 Height 2024-11-14 11:37:00.000 62 [in_us] Pulse 2024-11-24 11:20:00.000 80 /min Pulse 2024-11-23 12:36:00.000 76 /min Pulse 2024-11-22 13:52:00.000 80 /min Pulse 2024-11-19 10:47:00.000 76 /min Pulse 2024-11-14 11:37:00.000 86 /min Respirations 2024-11-24 11:20:00.000 16 /min Respirations 2024-11-23 12:36:00.000 16 /min Respirations 2024-11-22 13:52:00.000 16 /min Respirations 2024-11-19 10:47:00.000 16 /min Respirations 2024-11-14 11:37:00.000 16 /min Weight (lbs) 2024-11-14 11:37:00.000 105 [lb_av] Systolic Blood Pressure 2024-11-24 11:20:00.000 118 mm [Hg] Systolic Blood Pressure 2024-11-23 12:36:00.000 118 mm [Hg] Systolic Blood Pressure 2024-11-22 13:52:00.000 114 mm [Hg] Systolic Blood Pressure 2024-11-19 10:47:00.000 114 mm [Hg] Systolic Blood Pressure 2024-11-14 11:37:00.000 109 mm [Hg] Diastolic Blood Pressure 2024-11-24 11:20:00.000 68 mm [Hg] Diastolic Blood Pressure 2024-11-23 12:36:00.000 72 mm [Hg] Diastolic Blood Pressure 2024-11-22 13:52:00.000 70 mm [Hg] Diastolic Blood Pressure 2024-11-19 10:47:00.000 72 mm [Hg] Diastolic Blood Pressure 2024-11-14 11:37:00.000 51 mm [Hg] Plan of Treatment Planned Activity Planned Date Details Comments Future Scheduled Test SKILLED NU RSE TO EVALUATE PATIENT, IDENTIFY PRIMARY AND CO-MORBID CONDITIONS CODED PER CODING GUIDELINES, AND DEVELOP PATIENT SPECIFIC PLAN OF CARE THAT INCLUDES PATIENT GOAL FOR HOME HEALTH. [code = SKILLED NURSE TO EVALUATE PATIENT, IDENTIFY PRIMARY AND CO-MORBID CONDITIONS CODED PER CODING GUIDELINES, AND DEVELOP PATIENT SPECIFIC PLAN OF CARE THAT INCLUDES PATIENT GOAL FOR HOME HEALTH.] Future Scheduled Test PATIENT MA Y HAVE ONE SET OF EMERGENCY MEDICATION NOT TO BE PRE-POURED ANY SOONER THAN 24 HOURS BEFORE SEVERE INCLEMENT WEATHER OR EMERGENT EVENT AND FOLLOWING SKILLED NURSE EVALUATION OF PATIENT SAFETY. [code = PATIENT MAY HAVE ONE SET OF EMERGENCY MEDICATION NOT TO BE PRE-POURED ANY SOONER THAN 24 HOURS BEFORE SEVERE INCLEMENT WEATHER OR EMERGENT EVENT AND FOLLOWING SKILLED NURSE EVALUATION OF PATIENT SAFETY.] Future Scheduled Test SKILLED NU RSE TO O/A OF PATIENTS MENTAL/BEHAVIORAL STATUS, ASSESS VITAL SIGNS WEEKLY. ALLOW 2 PRNS FOR MEDICATION MANAGEMENT. [code = SKILLED NURSE TO O/A OF PATIENTS MENTAL/BEHAVIORAL STATUS, ASSESS VITAL SIGNS WEEKLY. ALLOW 2 PRNS FOR MEDICATION MANAGEMENT.] Future Scheduled Test SKILLED NU RSE FOR O/A OF PATIENT'S RISK FOR VIOLENCE TOWARD SELF AND TO PROVIDE INTERVENTION TECHNIQUES TO PROMOTE SAFETY TO PATIENT AND OTHERS [code = SKILLED NURSE FOR O/A OF PATIENT'S RISK FOR VIOLENCE TOWARD SELF AND TO PROVIDE INTERVENTION TECHNIQUES TO PROMOTE SAFETY TO PATIENT AND OTHERS] Future Scheduled Test MEDICATION S WILL BE HELD AND STORED IN LOCKBOX [code = MEDICATIONS WILL BE HELD AND STORED IN LOCKBOX] Future Scheduled Test SKILLED NU RSE FOR O/A OF GENERAL HEALTH STATUS OF PAIN, CARDIAC, RESPIRATORY, GASTROINTESTINAL, GENITOURINARY, SKIN, NEUROLOGIC, ENDOCRINE SYSTEMS TO IDENTIFY CHANGES ASSOCIATED WITH EXACERBATION FOR EARLY INTERVENTION OF COMPLICATIONS WEEKLY. [code = SKILLED NURSE FOR O/A OF GENERAL HEALTH STATUS OF PAIN, CARDIAC, RESPIRATORY, GASTROINTESTINAL, GENITOURINARY, SKIN, NEUROLOGIC, ENDOCRINE SYSTEMS TO IDENTIFY CHANGES ASSOCIATED WITH EXACERBATION FOR EARLY INTERVENTION OF COMPLICATIONS WEEKLY.] Future Scheduled Test SKILLED NU RSE TO ADMINISTER MEDICATIONS 5 TIMES PER WEEK AND PRE-POUR MEDICATIONS ON OTHER DAYS PER MEDICATION LIST. [code = SKILLED NURSE TO ADMINISTER MEDICATIONS 5 TIMES PER WEEK AND PRE-POUR MEDICATIONS ON OTHER DAYS PER MEDICATION LIST.] Future Scheduled Test SKILLED NU RSE FOR O/A AND SKILLED TEACHING RELATED TO MANAGEMENT OF DEPRESSIVE SYMPTOMS AND/OR DEPRESSION. SN TO REPORT SIGNIFICANT CHANGE IN DEPRESSIVE SYMPTOMS TO CLINICAL PROVIDER FOR EARLY INTERVENTION. [code = SKILLED NURSE FOR O/A AND SKILLED TEACHING RELATED TO MANAGEMENT OF DEPRESSIVE SYMPTOMS AND/OR DEPRESSION. SN TO REPORT SIGNIFICANT CHANGE IN DEPRESSIVE SYMPTOMS TO CLINICAL PROVIDER FOR EARLY INTERVENTION.] Future Scheduled Test SKILLED NU RSE TO PERFORM HOME SAFETY AND FALL ASSESSMENT AND PROVIDE INSTRUCTION TO IMPLEMENT HOME SAFETY AND FALL PREVENTION STRATEGIES. [code = SKILLED NURSE TO PERFORM HOME SAFETY AND FALL ASSESSMENT AND PROVIDE INSTRUCTION TO IMPLEMENT HOME SAFETY AND FALL PREVENTION STRATEGIES.] Future Scheduled Test SKILLED NU RSE FOR OBSERVATION AND ASSESSMENT OF PATIENTS PAIN LEVEL AND EFFECTIVENESS OF PAIN MANAGEMENT REGIMEN. SKILLED NURSE TO INSTRUCT PATIENT/CAREGIVER REGARDING PHARMACOLOGIC AND NON-PHARMACOLOGIC PAIN CONTROL MEASURES. SKILLED NURSE TO REPORT TO PHYSICIAN IF PAIN IS UNCONTROLLED WITH CURRENT PAIN MANAGEMENT REGIMEN. [code = SKILLED NURSE FOR OBSERVATION AND ASSESSMENT OF PATIENTS PAIN LEVEL AND EFFECTIVENESS OF PAIN MANAGEMENT REGIMEN. SKILLED NURSE TO INSTRUCT PATIENT/CAREGIVER REGARDING PHARMACOLOGIC AND NON-PHARMACOLOGIC PAIN CONTROL MEASURES. SKILLED NURSE TO REPORT TO PHYSICIAN IF PAIN IS UNCONTROLLED WITH CURRENT PAIN MANAGEMENT REGIMEN.] Future Scheduled Test PATIENT VILLANUEVA S A RISK OF HOSPITALIZATION AND ED USE. SKILLED NURSE TO ESTABLISH SUPPORT MEASURES TO MINIMIZE RISK OF HOSPITALIZATION AND ED USE, AND INSTRUCT PATIENT/CAREGIVER ON METHODS TO REDUCE AVOIDABLE HOSPITALIZATION AND ED USE. [code = PATIENT HAS A RISK OF HOSPITALIZATION AND ED USE. SKILLED NURSE TO ESTABLISH SUPPORT MEASURES TO MINIMIZE RISK OF HOSPITALIZATION AND ED USE, AND INSTRUCT PATIENT/CAREGIVER ON METHODS TO REDUCE AVOIDABLE HOSPITALIZATION AND ED USE.] Future Scheduled Test SKILLED NU RSE TO REVIEW PATIENT MEDICATIONS. INSTRUCT PATIENT/CAREGIVER ON MONITORING OF EFFECTIVENESS, ADVERSE DRUG REACTIONS, SIDE EFFECTS OF ALL MEDICATIONS (PRESCRIPTION/-OTC), AND HOW AND WHEN TO REPORT PROBLEMS. [code = SKILLED NURSE TO REVIEW PATIENT MEDICATIONS. INSTRUCT PATIENT/CAREGIVER ON MONITORING OF EFFECTIVENESS, ADVERSE DRUG REACTIONS, SIDE EFFECTS OF ALL MEDICATIONS (PRESCRIPTION/-OTC), AND HOW AND WHEN TO REPORT PROBLEMS.] Future Scheduled Test SKILLED NU RSE TO ASSESS PATIENTS PSYCHOSOCIAL STATUS TO IDENTIFY POTENTIAL ISSUES THAT MAY COMPLICATE THE PROVISION OF THE PLAN OF CARE INCLUDING THE PATIENTS ABILITY TO ACCESS COMMUNITY RESOURCES AND PSYCHOSOCIAL SUPPORT SERVICES. [code = SKILLED NURSE TO ASSESS PATIENTS PSYCHOSOCIAL STATUS TO IDENTIFY POTENTIAL ISSUES THAT MAY COMPLICATE THE PROVISION OF THE PLAN OF CARE INCLUDING THE PATIENTS ABILITY TO ACCESS COMMUNITY RESOURCES AND PSYCHOSOCIAL SUPPORT SERVICES.] Future Scheduled Test SKILLED NU RSE WILL MAINTAIN SITUATIONAL AWARENESS FOR SAFETY AND WILL NOTIFY CLINICAL AEROTRIANGULATION SPECIALIST AND PHYSICIAN/PROVIDER WITH ANY CHANGE IN CONDITION. [code = SKILLED NURSE WILL MAINTAIN SITUATIONAL AWARENESS FOR SAFETY AND WILL NOTIFY CLINICAL AEROTRIANGULATION SPECIALIST AND PHYSICIAN/PROVIDER WITH ANY CHANGE IN CONDITION.] Goal Patient Goal - T O FEEL HAPPY AND NOT BE TIRED ALL THE TIME. Goal Provider Goal - A PLAN OF CARE WILL BE ESTABLISHED THAT MEETS PATIENT'S SENIOR CARE NEEDS AND INCLUDES PATIENT GOAL FOR HOME HEALTH. Goal Provider Goal - MEDICATION WILL BE AVAILABLE DURING INCLEMENT WEATHER OR EMERGENT EVENT THROUGHOUT CERTIFICATION PERIOD. Goal Provider Goal - ALTERED MENTAL/BEHAVIORAL STATUS WILL BE IDENTIFIED PROMPTLY AND INTERVENTION INITIATED QUICKLY TO MINIMIZE ASSOCIATED RISKS THROUGHOUT CERTIFICATION PERIOD. Goal Provider Goal - PATIENT WILL REMAIN SAFE IN COMMUNITY WITHOUT EVIDENCE OF INJURY/HARM TO SELF OR OTHERS THROUGHOUT CERTIFICATION PERIOD. Goal Provider Goal - MEDICATION WILL BE STORED IN LOCKBOX FOR SAFETY. Goal Provider Goal - CHANGE IN GENERAL HEALTH STATUS WILL BE IDENTIFIED AND REPORTED TO PHYSICIAN FOR PROMPT INTERVENTION TO MINIMIZE ASSOCIATED RISKS THROUGHOUT CERTIFICATION PERIOD. Goal Provider Goal - PATIENT WILL COMPLY WITH MEDICATION WHEN SKILLED NURSE ADMINISTERS AND PRE-POURS MEDICATION THROUGHOUT CERTIFICATION PERIOD. Goal Provider Goal - PATIENT WILL REMAIN SAFE WITHOUT DECOMPENSATION IN DEPRESSIVE CONDITION, WHILE MAINTAINING OPTIMAL LEVEL OF MENTAL HEALTH AND WELL BEING THROUGHOUT CERTIFICATION PERIOD. Goal Provider Goal - PATIENT/CAREGIVER WILL VERBALIZE/DEMONSTRATE EFFECTIVE HOME SAFETY AND FALL PREVENTION STRATEGIES THROUGHOUT CERTIFICATION PERIOD. Goal Provider Goal - PATIENT/CAREGIVER WILL DEMONSTRATE UNDERSTANDING OF PHARMACOLOGIC AND NONPHARMACOLOGIC PAIN CONTROL MEASURES AND PATIENT WILL HAVE IMPROVEMENT IN PAIN INTERFERING WITH ACTIVITY EVIDENCED BY PAIN CONTROLLED AT LEVEL OF 6 OR LESS BY END OF CERTIFICATION PERIOD. Goal Provider Goal - PATIENT WILL HAVE SUPPORT MEASURES ESTABLISHED TO PREVENT HOSPITALIZATION AND ED USE AND PATIENT/CAREGIVER WILL VERBALIZE/DEMONSTRATE METHODS TO REDUCE AVOIDABLE HOSPITALIZATION AND ED USE BY END OF EPISODE. Goal Provider Goal - PATIENT/CAREGIVER WILL VERBALIZE UNDERSTANDING OF EDUCATION PROVIDED ON MEDICATIONS BY THE END OF THE CERTIFICATION PERIOD. Goal Provider Goal - PSYCHOSOCIAL NEEDS WILL BE IDENTIFIED AND PLAN IMPLEMENTED TO MINIMIZE RISK THROUGHOUT CERTIFICATION PERIOD. Goal Provider Goal - PATIENT WILL REMAIN SAFE IN THE COMMUNITY AND WILL BE FREE OF DANGER TO SELF AND OTHERS THROUGHOUT THE CERTIFICATION PERIOD. Progress Notes Progress Notes <paragraph>[Visit Date: 2024 by TEE ZEPEDA RN]:</paragraph><paragraph>SNV 11/24/24: PATIENT SEEN TODAY ALERT AND COOPERATIVE WITH CARE. DIRECTED MINISTRY MORNING MEDICATIONS AND TOLERATED WELL. PREFILLED FOR EVENING AND BEDTIME DOSE OF MEDICATIONS. PHYSICAL AND MENTAL STATUS ASSESSMENT COMPLETED. DENIES VENECIA, BUT REPORTS POOR SLEEPING PATTERNS. REVIEWED MELATONIN MEDICATION PURPOSE AND POSSIBLE SIDE EFFECTS WITH SOME UNDERSTANDING NOTED.</paragraph> <paragraph>[Visit Date: 2024 by TEE ZEPEDA RN]:</paragraph><paragraph>SNV 11/23/24: PATIENT SEEN TODAY ALERT AND COOPERATIVE WITH CARE. DIRECTED ADMINISTERED MORNING MEDICATIONS IN PREFILLED FOR EVENING AND BEDTIME DOSE OF MEDICATIONS. DENIES ANY MISSED DOSES. PHYSICAL AND MENTAL STATUS ASSESSMENT COMPLETED. REVIEWED GI HEALTH AND WAYS TO IMPROVE NUTRITION BY ADDING MORE FRUITS AND VEGETABLES.</paragraph> Encounters Start Date/Time End Date/Time Encounter Type Admission Type Attending [facility] Care Department Encounter ID Discharge Date Discharge Status Discharge Condition Discharge Reason Percent Goals Met 2024-11-14 00:00:00 2025-01-12 00:00:00 Outpatient TEE CALIXTO [facility] [id number] 5.88
--- OUTSIDE RECORDS SUMMARY | 2024-11-29 09:01 | XMS_ITS | Encounter Summary ---
Author Organization [employer] Address [address] [place] [address] Care Team Providers Care Director Of Corporate Communications Name Role Phone Umm Coley MD Primary Care Provider + Reason for Visit * Reason Comments Med Change Request Encounter Details Date Type Department Care Team ([facility] Contact Info) Description 03/20/2023 Refill [facility] [address] [place] [address] Johnny Gonzalez DMD [address] [place] [address] Social History Tobacco Use Types Packs/Day Years Used Date Smoking Tobacco: Never Smokeless Tobacco: Never Alcohol Use Standard Drinks/Week Comments Never 0 (1 standard drink = 0.6 oz pur e alcohol) Comments Unknown Sex and Gender Information Value Date Recorded Sex Assigned at Female 09/01/2022 10:16 AM EDT Legal Sex Female 10:16 AM EDT Gender Identity Female 09/01/2022 10:16 AM EDT Sexual Orientation Straight 09/01/2022 10 :16 AM EDT COVID-19 Exposure Response Date Recorded In the last 10 days, have yo u been in contact with someone who was confirmed or suspected to have Coronavirus/COVID-19? No / Unsure 03/09/2023 8:59 AM EDT documented as of this encounter Miscellaneous Notes * Telephone Encounter - Johnny Gonzalez DMD - 03/24/2023 11:21 AM EDT Approving, but needs appt for additional refills. documented in this encounter Plan of Treatment Upcoming Encounters Date Type Department Care Team (Late st Contact Info) Description 03/08/2025 10:00 AM EDT Office Visit [facility] [address], [place] [phone] Mariangel Ruff [address], [place] [phone] documented as of this encounter Visit Diagnoses Not on filedocumented in this encounter Care Teams Director Of Corporate Communications Relationship Specialty Start Date End Date Umm Coley MD [address] [place], [place] [phone] PCP - General Family Medicine 10/31/16 Eva Nunez Mandarin Tutor 04/05/24 07/06/24 [facility] 05/11/24 11/17/24 [facility] 11/14/24 documented as of this encounter
--- OUTSIDE RECORDS SUMMARY | 2024-11-29 09:01 | XMS_ITS | Encounter Summary ---
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 Name Role Phone Umm Coley MD Primary Care Provider + Reason for Visit * Reason Onset Date Comments Chart prep 11/09/2024 Encounter Details Date Type Department Care Team ([facility] st Contact Info) Description 11/09/2024 Telephone [facility] [address], [place] [phone] Umm Coley MD [address], [place] [phone] Chart prep Social History Tobacco Use Types Packs/Day Years Used Date Smoking Tobacco: Never Passive Smoke Exposure: Never Smokeless Tobacco: Never Alcohol Use Standard Drinks/Week Comments Never 0 (1 standard drink = 0.6 oz pur e alcohol) Depression Answer Date Recorded Patient Health Questionnaire-9 Score 10 06/10/2024 Patient Health Questionnaire-9 Score 10 06/10/2024 Last PHQ-9: Questionnaire Data Not on file 0 06/10/2024 Housing Stability Answer Date Recorded What is your housing situation today? I have sylvia hester 08/19/[address] you li ve. Do you have problems with any of the following? None of the above 08/19/2023 Food Insecurity Answer Date Recorded Within the past 12 months, y ou worried that your food would run out before you got money to buy more: Sometimes True 2023 Within the past 12 months,th e food you bought just didn't last and you didn't have enough money to get more: Sometimes True 03/03/2024 Transportation Answer Date Recorded In the past [...] Answer Date Recorded Patient Health Questionnaire-2 Score 3 06/10/2024 Comments No Sex and Gender Information Value Date Recorded Sex Assigned at Female 09/01/2022 10:16 AM EDT Legal Sex Female 10:16 AM EDT Gender Identity Female 09/01/2022 10:16 AM EDT Sexual Orientation Straight 09/01/2022 10 :16 AM EDT documented as of this encounter Miscellaneous Notes * Telephone Encounter - Juana Connor MA - 11/09/2024 2:44 PM EST Chart Prep Labs: not done Images: done Vaccines due: yes Referrals: pending appt Screenings: Up to date Overdue care gaps: N/A documented in this encounter Plan of Treatment Upcoming Encounters Date Type Department Care Team (Late st Contact Info) Description 03/08/2025 10:00 AM EDT Office Visit [facility] [address] [place] [phone] Trino Ruffaris [address] [place] [address] documented as of this encounter Visit Diagnoses Not on filedocumented in this encounter Additional Health Concerns Assessment Noted Time PHQ-9 Depression Total Score: 10 024 9:17 AM EDT documented as of this encounter Care Teams Restaurant Line Cook Relationship Specialty Start Date End Date Umm Coley MD [address] [place] [address] PCP - General Family Medicine 10/31/16 [facility] 05/11/24 11/17/24 documented as of this encounter
--- OUTSIDE RECORDS SUMMARY | 2024-11-29 09:01 | XMS_ITS | Clinical Summary ---
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 Vaccines (2 of 3 - Risk 3-dose series) 05/29/2008 05/01/2008 RSV Patients and Patients Aged 60 years or older (1 - Risk 60-74 years 1-dose series) 2023 COVID-19 Vaccine ( season) 2024 12/04/2021, 02/06/2021, 01/09/2021 Dental Prophylaxis 10/05/2024 04/04/2024, 05/25/2023 Dental Oral Exam 10/26/2024 04/25/2024, 05/25/2023 Mammogram 11/24/2024 11/24/2023, 11/03, 11/29/2022, Additional history exists Depression Monitoring (PHQ-9) 12/11/2024 06/10/2024, 06/10/2024 SDOH Screening 03/03/2025 03/03/2024 Dental X-Ray: Full Mouth 03/14/2025 03/13/2022 Depression Screening 06/10/2025 06/10/2024, 06/10/20 24 DTaP/Tdap/Td Vaccines (2 - Td or Tdap) 08/01/2025 08/01/2015, 11/14/2013, 08/01/2005 Dental X-Ray: Bitewings 08/02/2025 08/01/20 24, 04/04/2024, 05/25/2023, Additional history exists Pap Smear 10/08/2025 10/08/2022, 06/18/2016 Tobacco Screening 11/10/2025 11/10/2024 Cervical Cancer Screening 10/08/2027 HPV/Cotest 10/08/2027 10/08/2022 Colonoscopy 07/30/2028 07/30/2023 Colorectal Cancer Screening 07/30/2028 Zoster Vaccines Completed 05/24/2020, 12/02/2019 HIV Screening Completed 04/30/2022 Influenza Vaccine Completed 11/10/2024, , 08/21/2022, Additional history exists HIB Vaccines Aged Out No longer eligi ble based on patient's age to complete this topic HPV Vaccines Aged Out No longer eligi ble based on patient's age to complete this topic IPV Vaccines Aged Out No longer eligi ble based on patient's age to complete this topic Meningococcal Vaccine Aged Out No radha gladys eligible based on patient's age to complete this topic RSV under 20 months Aged Out No longe r eligible based on patient's age to complete this topic Rotavirus Vaccines Aged Out No longer eligible based on patient's age to complete this topic Procedures Procedure Name Priority Date/Time Associated Diagnosis Comments POCT RSV (ID NOW RAPID ANTIGEN) Routine 11/10/2024 2:01 PM EST Mild persistent asthmatic bronchitis without complication POCT INFLUENZA B (ID NOW RAPID MOLECULAR) Routine 11/10/2024 2:01 PM EST Mild persistent asthmatic bronchitis without complication POCT INFLUENZA A (ID NOW RAPID MOLECULAR) Routine 11/10/2024 2:01 PM EST Mild persistent asthmatic bronchitis without complication POCT RAPID COVID ANTIGEN Routine 11/10/2024 2:01 PM EST Mild persistent asthmatic bronchitis without complication ADJUNCTIVE GENERAL SERVICES - PROFESSIONAL VISITS - CASE PRESENTATION, SUBSEQUENT TO DETAILED AND EXTENSIVE TREATMENT PLANNING Routine 10/14/2024 2:30 PM EST Defective dental muslim Dental caries History of root canal procedure 12 DO RESTORATIVE - RESIN-BASED COMPOSITE RESTORATIONS - DIRECT - RESIN-BASED COMPOSITE - TWO SURFACES, POSTERIOR Routine 10/14/2024 2:30 PM EST Dental caries 10 MIFL RESIN-BASED COMPOSITE - 4 OR MORE SURFACES (ANTERIOR) Routine 10/14/2024 2:30 PM EST Defective dental muslim 13 RESTORATIVE - OTHER RESTORATIVE SERVICES - CORE BUILDUP, INCLUDING ANY PINS WHEN REQUIRED Routine 10/14/2024 2:30 PM EST History of root canal procedure ADJUNCTIVE GENERAL SERVICES - PROFESSIONAL VISITS - CASE PRESENTATION, SUBSEQUENT TO DETAILED AND EXTENSIVE TREATMENT PLANNING Routine 09/15/2024 2:30 PM EST History of root canal procedure 13 ENDODONTICS - ENDODONTIC THERAPY (INCLUDING TREATMENT PLAN, CLINICAL PROCEDURES AND FOLLOW-UP CARE) - ENDODONTIC THERAPY, PREMOLAR TOOTH (EXCLUDING FINAL ADVENTISM) Routine 09/15/2024 2:30 PM EST History of root canal procedure NO CHARGE VISIT Routine 08/29/2024 3:30 PM EDT History of root canal procedure BITEWING - SINGLE RADIOGRAPHIC IMAGE Routine 08/01/2024 2:00 PM EDT Symptomatic irreversible pulpitis PERIODIC ORAL EVALUATION - ESTABLISHED PATIENT Routine 04/25/2024 1:00 PM EDT Symptomatic irreversible pulpitis PROPHYLAXIS - ADULT Routine 04/04/2024 1 :00 PM EDT Dental calculus BI MAMMOGRAM DIAGNOSTIC TOMOSYNTHESIS BILATERAL Routine 11/24/2023 1:15 PM EST Breast pain, right HM COLONOSCOPY Routine 07/30/2023 THINPREP PAP AND HPV MRNA E6/E7 Routine 10/08/2022 9:30 AM EST ZZZ HISTORICAL HIV AB/AG Routine 04/30/2022 11:28 AM EDT from Last 3 Months or Most Recently Relevant to Health Maintenance Results * POCT Rapid RSV ROJAS ID NOW (11/10/2024 2:01 PM EST) [facility] RSV Rapid Ag POC Negative Negative Swab 11/10/2024 2:01 PM EST Shalonda Coley MD POINT OF CARE TEST ENTER /EDIT ORDERABLES Final Result * POCT Rapid Influenza B ROJAS ID NOW (11/10/2024 2:01 PM EST) [facility] Influenza B Negative Negative, Indeterminate [facility] Swab 11/10/2024 2:0 1 PM EST Shalonda Coley MD POINT OF CARE TEST ENTER /EDIT ORDERABLES Final Result Performing Organization Address [facility]/ZIP Co de Phone Number [facility] [address] [place] [phone] * POCT Rapid Influenza A ROJAS ID NOW (11/10/2024 2:01 PM EST) [facility] Influenza A Negative Negative, Indeterminate [facility] Swab 11/10/2024 2:01 PM EST Shalonda Coley MD POINT OF CARE TEST ENTER /EDIT ORDERABLES Final Result Performing Organization Address [facility] Co de Phone Number [facility] [address] [place] [phone] * POCT Rapid Covid-19 BinaxNOW (11/10/2024 2:01 PM EST) [facility] Rapid COVID Ag Negative Swab 11/10/2024 2:01 PM EST Shalonda Coley MD POINT OF CARE TEST ENTER /EDIT ORDERABLES Final Result * BI Mammogram Diagnostic Tomosynthesis Bilateral (11/24/2023 1:15 PM EST) Anatomical Region Laterality Modality Breast Bilateral Mammography 11/24/2023 1:15 PM EST Narrative 12/14/2023 8:26 AM EST ? [facility] ? [address] ?[place] [address] ? Mammography Report ? Signed ? Patient: Myles,Diana L ?MR#: [id number] ?? 8 ? : 1965 ?Acct:[id number] ? Age/Sex: 58 / F ?ADM Date: 11/24/23 ? Loc: HO.MAMMO ? Attending Dr: Shalonda Coley MD ? Ordering Physician: Shalonda Coley MD ?Results: 1Ne ?? gative ? Date of Service: 11/24/23 ?Follow Up: 1 Year From Orig ?? inal Mammogram ? Procedure(s): MM tomosynthesis diagnostic BI ?? Accession Number(s): [id number] ? cc: Shalonda Coley MD ? EXAMINATION: ?? MM DIAGNOSTIC DIGITAL BREAST TOMOSYNTHESIS, BILATERAL ?? US BREAST LIMITED, RIGHT ? MAMMOGRAPHY: ?? CLINICAL INFORMATION: ? Right-sided breast pain 10-4 o'clock location. ? The patient was conservatively treated for right breast cancer with ?? surgery and radiation in 2009. ? COMPARISON: ?? Mammography: This study is compared with prior mammograms dating back ?? to 2016. ? TECHNIQUE: ?? Digital breast tomosynthesis is performed in both the craniocaudal and ?? mediolateral oblique views along with computer-aided detection (CAD). ?? Synthesized 2D images are generated from the tomosynthesis. ? FINDINGS: ?? There are scattered areas of fibroglandular density (ACR BI-RADS breast ?? composition Category b). ? There are no significant masses, abnormal calcifications, or other ?? abnormalities in either breast. ?? There are postsurgical changes just lateral to the posterior nipple ?? line of the right breast. There are no mammographic signs of ?? malignancy. ? ULTRASOUND: ?? CLINICAL INFORMATION: ?? Right-sided breast pain 10-4 o'clock location. ? TECHNIQUE: ?? Targeted sonographic evaluation was performed using a high frequency ?? linear transducer. ??Selected archived documentation. ? FINDINGS: ? RIGHT BREAST: Sonography of the 10-4 o'clock region of the right ?? breast, the area of right breast pain is performed. There is no ?? abnormality in this location. Clinical follow-up is advised. ? MM/MM tomosynthesis diagnostic BI ?? IMPRESSION: ?? Benign postsurgical changes right breast. ? No mammographic signs of malignancy in either breast. ?? Clinical follow-up advised. ? At the time of the study, the patient was informed of the results and ?? recommendations. ? OVERALL ASSESSMENT: ?? Mammography: BI-RADS 1 - Negative ?? Ultrasound: BI-RADS 1 - Negative ? RECOMMENDATION: ?? 1. Patient should be managed based on the clinical impression. ?2. ?? Otherwise, routine annual screening mammography. ? Results were provided to the patient at time of visit by the ?? technologist. ? This patient's information was entered into a reminder system with a ?? target due date for their next mammogram. ? Dictated By: ?Lesley Donis MD ? Signed By: ?<Electronically signed by Lesley Donis MD in OV> ? 12/14/23821 ? DD/ ? TD/TT: ? Oracle Hrms Developer: ? Procedure Note [place], Image - 12/14/2023 [facility] [address] [place], [place] [address] Mammography Report Signed Patient: Diana Myles LMR#: [id number] 8 : 1965Acct:[id number] Age/Sex: 58 / FADM Date: 11/24/23 Loc: HO.MAMMO Attending Dr: Shalonda Coley MD Ordering Physician: Shalnoda Coley MDResults: 1Ne gative Date of Service: 11/24/23Follow Up: 1 Year From Orig inal Mammogram Procedure(s): MM tomosynthesis diagnostic BI Accession Number(s): [id number] cc: Shalonda Coley MD EXAMINATION: MM DIAGNOSTIC DIGITAL BREAST TOMOSYNTHESIS, BILATERAL US BREAST LIMITED, RIGHT MAMMOGRAPHY: CLINICAL INFORMATION: Right-sided breast pain 10-4 o'clock location. The patient was conservatively treated for right breast cancer with surgery and radiation in 2009. COMPARISON: Mammography: This study is compared with prior mammograms dating back to 2016. TECHNIQUE: Digital breast tomosynthesis is performed in both the craniocaudal and mediolateral oblique views along with computer-aided detection (CAD). Synthesized 2D images are generated from the tomosynthesis. FINDINGS: There are scattered areas of fibroglandular density (ACR BI-RADS breast composition Category b). There are no significant masses, abnormal calcifications, or other abnormalities in either breast. There are postsurgical changes just lateral to the posterior nipple line of the right breast. There are no mammographic signs of malignancy. ULTRASOUND: CLINICAL INFORMATION: Right-sided breast pain 10-4 o'clock location. TECHNIQUE: Targeted sonographic evaluation was performed using a high frequency linear transducer. Selected archived documentation. FINDINGS: RIGHT BREAST: Sonography of the 10-4 o'clock region of the right breast, the area of right breast pain is performed. There is no abnormality in this location. Clinical follow-up is advised. MM/MM tomosynthesis diagnostic BI IMPRESSION: Benign postsurgical changes right breast. No mammographic signs of malignancy in either breast. Clinical follow-up advised. At the time of the study, the patient was informed of the results and recommendations. OVERALL ASSESSMENT: Mammography: BI-RADS 1 - Negative Ultrasound: BI-RADS 1 - Negative RECOMMENDATION: 1. Patient should be managed based on the clinical impression. 2. Otherwise, routine annual screening mammography. Results were provided to the patient at time of visit by the technologist. This patient's information was entered into a reminder system with a target due date for their next mammogram. Dictated By: Lesley Donis MD Signed By: <Electronically signed by Lesley Donis MD in OV> 12/14/23 0822 DD/ 1315 TD/TT: Oracle Hrms Developer: Shalonda Coley MD IMG BI PROCEDURES Final Result * (ABNORMAL) Hm Colonoscopy (07/30/2023) Colonoscopy Abnormal( A) Normal [facility] Comment:SSL polyp Shalonda Coley MD HEALTH MAINTENANCE Final Result [facility] [address] [place] [phone] [phone] * Thinprep PAP and HPV nRNA E6/E7 (10/08/2022 9:30 AM EST) Clinical Information: None given [facility] LMP: NONE GIVEN [facility] Prev. PAP: NONE GIVEN [facility] Prev. BX: NONE GIVEN [facility] SOURCE: None given [facility] Statement Of Adequacy: SATISFACTORY FOR EVALUATION Age and/or menstrual status not provided [facility] Interpretation/Re sult: [facility] Comment: Negative for intraepithelial lesion or malignancy. Atrophic pattern; predominantly parabasal cells Insurance Loss Control Surveyor: [facility] Comment: DMM, CT(ASCP) CT screening location: [address] ??[phone] Review Insurance Loss Control Surveyor: [facility] Comment: MAA, CT(ASCP) CT screening location: [address] ??[phone] (Always Message) [facility] [employer] Comment: EXPLANATORY NOTE: The Pap is a screening test for cervical cancer. It is not a diagnostic test and is subject to false negative and false positive results. It is most reliable when a satisfactory sample, regularly obtained, is submitted with relevant clinical findings and history, and when the Pap result is evaluated along with historic and current clinical information. HPV nRNA E6/E7 Not Detected Not Detected [employer] Comment: Methodology: Electrical Engineering Draftsperson-Mediated Amplification This assay detects E6/E7 viral messenger RNA (mRNA) from 14 high-risk HPV types (16,18,31,33,35,39,45,51,52,56,58,59,66,68). Cervical sources are required for HPV testing. If a vaginal source from a patient who has had a total hysterectomy with removal of cervix was submitted, please contact the testing laboratory for alternative testing options. For additional information, please refer to http://education.[employer]/faq/VLF455d6 (This link if provided for information/ educational purposes only.) 10/08/2022 9:30 AM EST 10/10/2022 1:07 AM EST Narrative [facility] - 10/14/2022 7:08 PM EST FASTING: UNKNOWN [facility] PATHOLOGY ORDERABLES Final Result [address], [place] [address] [employer] [facility] [address] [place] [address] [place] [address] * HIV AB/AG (04/30/2022 11:28 AM EDT) HIV AB/AG Nonreactive Nonreactive [facility] Comment: HIV-1 p24 Ag and/or HIV-1/HIV-2 Ab not detected. ?? A test result that is nonreactive does not exclude the possibility of exposure to or infection with HIV-1 and/or HIV-2. Nonreactive results in this assay for individuals with prior exposure to HIV-1 and/or HIV-2 may be due to antigen and antibody levels that are below the limit of detection of this assay. ?? The [employer] Financial [employer] HIV Ag/Ab Combo assay result and supplemental assay results should be interpreted in conjunction with the patient's clinical presentation, history and other laboratory results. ??If the results are inconsistent with clinical evidence, additional testing is suggested to confirm the result. Hepatitis B Surface Antibody REACTIVE Nonreactive [facility] Comment:REACTIVE: > 11.99 mI U/mL Hepatitis B Surface Antigen Negative Negative [facility] Hepatitis B Core Antibody Nonreactive Nonreactive [facility] 04/30/2022 11:2 8 AM EDT Shalonda Coley MD HISTORICAL/NON ORDERABLE LABS Final Result [facility] [address] [place] [address], from Last 3 Months or Most Recently Relevant to Health Maintenance [facility] [place] AD[place] Care Teams Policy Change Clerks Supervisor Relationship Specialty Start Date End Date Shalonda Coley MD [address] [place] [phone] PCP - General Family Medicine 10/31/16 [facility] 11/14/24
--- OUTSIDE RECORDS SUMMARY | 2024-11-29 09:01 | XMS_ITS | Encounter Summary ---
Author Organization [employer] Address [address] [facility] [address] [place] [address] Care Team Providers Care Gis Mapping Technician Name Role Phone Umm Coley MD Primary Care Provider + Reason for Visit * Reason Comments Med Refill Encounter Details Date Type Department Care Team (Late st Contact Info) Description 02/05/2023 Refill [facility] [address] [place] [address] Umm Coley MD [address] [place], [place] [phone] Arthritis of knee Social History Tobacco Use Types Packs/Day Years [...] suspected to have Coronavirus/COVID-19? No / Unsure 02/03/2023 11:10 AM EDT documented as of this encounter Plan of Treatment Upcoming Encounters Date Type Department Care Team (Late st Contact Info) Description 03/08/2025 10:00 AM EDT Office Visit [facility] ADULT DENTAL [address] [place], [place] [phone] Mariangel Ruff [address] [place] [address] documented as of this encounter Visit Diagnoses Diagnosis Arthritis of knee Unspecified arthropathy, lower leg documented in this encounter Care Teams Gis Mapping Technician Relationship Specialty Start Date End Date Umm Coley MD [address] [place] [address] PCP - General Family Medicine 10/31/16 Eva Nunez Cargo Handler 04/05/24 07/06/24 [facility] 05/11/24 11/17/24 [facility] 11/14/24 documented as of this encounter
--- OUTSIDE RECORDS SUMMARY | 2024-11-29 09:01 | XMS_ITS | Encounter Summary ---
Author Organization [employer] Address [address] [facility] [address] [place] [address] Care Team Providers Care Hand Cigar Maker Name Role Phone Umm Coley MD Primary Care Provider + Reason for Visit * Reason Comments Med Refill Encounter Details Date Type Department Care Team (Late Contact Info) Description 05/21/2023 Refill [facility] [address] [place], [place] [phone] Umm Coley MD [address] [place] [address] Arthritis of knee Social History Tobacco Use Types Packs/Day Years Used Date Smoking Tobacco: Never Passive Smoke Exposure: Never Smokeless Tobacco: Never Alcohol Use Standard Drinks/Week Comments Never 0 (1 standard drink = 0.6 oz pur e alcohol) Depression Answer Date Recorded Patient Health Questionnaire-9 Score 12 04/02/2023 Depression Answer Date Recorded Patient Health Questionnaire-2 Score 5 04/02/2023 Comments Unknown Sex and Gender Information Value [...] suspected to have Coronavirus/COVID-19? No / Unsure 05/01/2023 12:52 PM EDT documented as of this encounter Plan of Treatment Upcoming Encounters Date Type Department Care Team (Late Contact Info) Description 03/08/2025 10:00 AM EDT Office Visit [facility] ADULT DENTAL [address] [place] [address] Mariangel Ruff [address] [place] [address] documented as of this encounter Visit Diagnoses Diagnosis Arthritis of knee Unspecified arthropathy, lower leg documented in this encounter Additional Health Concerns Assessment Noted Time PHQ-9 Depression Total Score: 12 023 1:58 PM EDT documented as of this encounter Care Teams Hand Cigar Maker Relationship Specialty Start Date End Date Umm Coley MD [address] [place] [address] PCP - General Family Medicine 10/31/16 Eva Nunez Air Bag Buffer 04/05/24 07/06/24 [facility] 05/11/24 11/17/24 [facility] 11/14/24 documented as of this encounter
--- OUTSIDE RECORDS SUMMARY | 2024-11-29 09:01 | XMS_ITS | Encounter Summary ---
Author Organization [employer] [facility] Address [address] [place] [address] 7t [place] [address] Care Team Providers Care Heating Fixture Tender Name Role Phone Umm Coley MD Primary Care Provider + Reason for Visit * Reason Comments Med Refill Encounter Details Date Type Department Care Team (Late st Contact Info) Description 08/01/2023 Refill [facility] [address] [place], [place] [phone] Umm Coley MD [address] [place], [place] [phone] Social History Tobacco Use Types Packs/Day Years [...] Description 03/08/2025 10:00 AM EDT Office Visit [facility] ADULT DENTAL [address] [place], [place] [phone] Mariangel Ruff [address] [place] [address] documented as of this encounter Visit Diagnoses Not on filedocumented in this encounter Additional Health Concerns Assessment Noted Time PHQ-9 Depression Total Score: 12 023 1:58 PM EDT documented as of this encounter Care Teams Heating Fixture Tender Relationship Specialty Start Date End Date Umm Coley MD [address] [place] [address] PCP - General Family Medicine 10/31/16 Eva Nunez Superintendent Pier 04/05/24 07/06/24 [facility] 05/11/24 11/17/24 [facility] 11/14/24 documented as of this encounter
--- OUTSIDE RECORDS SUMMARY | 2024-11-29 09:01 | XMS_ITS | Encounter Summary ---
Author Organization [employer] Address [address] [facility] [address] [place] [address] Care Team Providers Care Ocean Freight Manager Name Role Phone Umm Coley MD Primary Care Provider + Encounter Details Date Type Department Care Team (Latest Contact Info) Description 11/10/2024 Travel Social History Tobacco Use Types Packs/Day Years [...] Description 03/08/2025 10:00 AM EDT Office Visit [facility] ADULT DENTAL [address] [place] [address] Elzbieta, Mariangel [address] [place] [address] documented as of this encounter Visit Diagnoses Not on filedocumented in this encounter Additional Health Concerns Assessment Noted Time PHQ-9 Depression Total Score: 10 024 9:17 AM EDT documented as of this encounter Care Teams Ocean Freight Manager Relationship Specialty Start Date End Date Umm Coley MD [address] [place] [address] PCP - General Family Medicine 10/31/16 [facility] 05/11/24 11/17/24 documented as of this encounter
--- OUTSIDE RECORDS SUMMARY | 2024-11-29 09:01 | XMS_ITS | Encounter Summary ---
Author Organization [facility] Address [address] [place] [address] [address] [place] [address] Care Team Providers Care Medical Insurance Verifier Name Role Phone Umm Coley MD Primary Care Provider + Encounter Details Date Type Department Care Team (Latest Contact Info) Description 09/16/2022 Abstract [facility] CONVERSIONS Dental, Provider, DDS Social History Tobacco Use Types Packs/Day Years Used Date Smoking Tobacco: Never Assessed Comments Unknown Sex and Gender Information Value Date Recorded Sex Assigned at Female 09/01/2022 10:16 AM EDT Legal Sex Female 10:16 AM EDT Gender Identity Female 09/01/2022 10:16 AM EDT Sexual Orientation Straight 09/01/2022 10 :16 AM EDT documented as of this encounter Plan of Treatment Upcoming Encounters Date Type Department Care Team ( st Contact Info) Description 03/08/2025 10:00 AM EDT Office Visit [facility] ADULT DENTAL [address] [place] [address] Elzbieta, Mariangel [address] [place] [address] documented as of this encounter Visit Diagnoses Not on filedocumented in this encounter Care Teams Medical Insurance Verifier Relationship Specialty Start Date End Date Umm Coley MD [address] [place] [address] PCP - General Family Medicine 10/31/16 Eva Nunez Mixing Pan Tender 04/05/24 07/06/24 [facility] 05/11/24 11/17/24 [facility] 11/14/24 documented as of this encounter
--- OUTSIDE RECORDS SUMMARY | 2024-11-29 09:01 | XMS_ITS | Encounter Summary ---
Author Organization [facility] Address [address] [place] [address] 7t [place] [address] Care Team Providers Care Sorter Lumber Straightener Name Role Phone Umm Coley MD Primary Care Provider + Encounter Details Date Type Department Care Team (Latest Contact Info) Description 11/23/2020 Abstract [facility] CONVERSIONS Dental, Provider, DDS Social History Tobacco [...] Description 03/08/2025 10:00 AM EDT Office Visit [facility] ADULT DENTAL [address] [place] [address] Elzbieta, Mariangel [address] [place] [address] documented as of this encounter Visit Diagnoses Not on filedocumented in this encounter Care Teams Sorter Lumber Straightener Relationship Specialty Start Date End Date Umm Coley MD [address] [place] [address] PCP - General Family Medicine 10/31/16 Eva Nunez Harp Repairer 04/05/24 07/06/24 [facility] 05/11/24 11/17/24 [facility] 11/14/24 documented as of this encounter
--- OUTSIDE RECORDS SUMMARY | 2024-11-29 09:01 | XMS_ITS | Encounter Summary ---
Author Organization [facility] Address [address] [facility] 7t [place] [address] Care Team Providers Care Supervisor Fabrication Name Role Phone Umm Coley MD Primary Care Provider + Reason for Visit * Reason Onset Date Comments Appointment 06/15/2023 Encounter Details Date Type Department Care Team ([facility] st Contact Info) Description 06/15/2023 Telephone [facility] ADULT DENTAL 230 [facility] [place] [address] Johnny Gonzalez, DMD [address] [place] [address] Appointment Social History Tobacco Use Types Packs/Day Years [...] * Telephone Encounter - Scarlet Hall - 06/24/2023 8:29 AM EDT Patient called in again looking for status on treatment plan appt for partials. Its in notes but not in treatment plan and patient would like to be scheduled DR * Telephone Encounter - Scarlet Hall - 06/15/2023 8:22 AM EDT Patient called in checking in on status of appt for partials. The partials were not treatment planned although they are in the notes and therefore the appt was not requested. She would like to be scheduled to be seen. documented in this encounter Plan of Treatment Upcoming Encounters Date Type Department Care Team (Late st Contact Info) Description 03/08/2025 10:00 AM EDT Office Visit [facility] ADULT DENTAL [address] [place], [place] [phone] Elzbieta, Mariangel [address] [place] [address] documented as of this encounter Visit Diagnoses Not on filedocumented in this encounter Additional Health Concerns Assessment Noted Time PHQ-9 Depression Total Score: 12 04/02/ 023 1:58 PM EDT documented as of this encounter Care Teams Supervisor Fabrication Relationship Specialty Start Date End Date Umm Coley MD [address] [place] [address] PCP - General Family Medicine 10/31/16 Eva Nunez Nut Grader 04/05/24 07/06/24 [facility] 05/11/24 11/17/24 [facility] 11/14/24 documented as of this encounter
--- OUTSIDE RECORDS SUMMARY | 2024-11-29 09:01 | XMS_ITS | Encounter Summary ---
Author Organization [facility] Address [address] [facility] 7t [place] [address] Care Team Providers Care Perforating Machine Operator Name Role Phone Umm Coley MD Primary Care Provider + Reason for Visit * Reason Comments Med Change Request Encounter Details Date Type Department Care Team ([facility] Contact Info) Description 03/20/2023 Refill [facility] ADULT DENTAL [address] [place] [address] Johnny Gonzalez DMD [address] [place] [address] Social History Tobacco Use Types Packs/Day Years [...] Telephone Encounter - Johnny Gonzalez DMD - 03/20/2023 2:37 PM EDT Approving, but needs appt for additional refills. documented in this encounter Plan of Treatment Upcoming Encounters Date Type Department Care Team (Late st Contact Info) Description 03/08/2025 10:00 AM EDT Office Visit [facility] ADULT DENTAL [address] [place], [place] [phone] Mariangel Ruff [address] [place], [place] [phone] documented as of this encounter Visit Diagnoses Not on filedocumented in this encounter Care Teams Perforating Machine Operator Relationship Specialty Start Date End Date Umm Coley MD [address] [place], [place] [phone] PCP - General Family Medicine 10/31/16 Eva Nunez Project Estimator 04/05/24 07/06/24 [facility] 05/11/24 11/17/24 [facility] 11/14/24 documented as of this encounter
--- OUTSIDE RECORDS SUMMARY | 2024-11-29 09:01 | XMS_ITS | Encounter Summary ---
Author Organization [facility] Address [address] [place] [address] 7t [place] [address] Care Team Providers Care Web Site Manager Name Role Phone Umm Coley MD Primary Care Provider + Encounter Details Date Type Department Care Team (Late st Contact Info) Description 09/24/2022 Abstract [facility] ADULT DENTAL [address] [place] [address] Dental, Provider, DDS Social History Tobacco Use [...] 03/08/2025 10:00 AM EDT Office Visit [facility] ADULT DENTAL [address] [place] [address] Mariangel Ruff [address] [place] [address] documented as of this encounter Procedures Procedure Name Priority Date/Time Associated Diagnosis Comments 10 ML RESTORATIVE - RESIN-BASED COMPOSITE RESTORATIONS - DIRECT - RESIN-BASED COMPOSITE - TWO SURFACES, ANTERIOR Routine 09/24/2022 12:00 AM EST 7 ML RESTORATIVE - RESIN-BASED COMPOSITE RESTORATIONS - DIRECT - RESIN-BASED COMPOSITE - TWO SURFACES, ANTERIOR Routine 09/24/2022 12:00 AM EST 13 MOD AMALGAM FILLING Routine 12:00 AM EST 16 O AMALGAM FILLING Routine 09/24/2022 12:00 AM EST 32 EXTRACTION Routine 09/24/2022 12:00 AM EST 31 EXTRACTION Routine 09/24/2022 12:00 AM EST 30 EXTRACTION Routine 09/24/2022 12:00 AM EST 19 EXTRACTION Routine 09/24/2022 12:00 AM EST 18 EXTRACTION Routine 09/24/2022 12:00 AM EST 17 EXTRACTION Routine 09/24/2022 12:00 AM EST 15 EXTRACTION Routine 09/24/2022 12:00 AM EST 3 EXTRACTION Routine 09/24/2022 12:00 AM EST 1 EXTRACTION Routine 09/24/2022 12:00 AM EST documented in this encounter Visit Diagnoses Not on filedocumented in this encounter Care Teams Web Site Manager Relationship Specialty Start Date End Date Umm Coely MD [address] [place] [address] PCP - General Family Medicine 10/31/16 Eva Nunez Asphalt Plant Worker 04/05/24 07/06/24 [facility] 05/11/24 11/17/24 [facility] 11/14/24 documented as of this encounter
--- OUTSIDE RECORDS SUMMARY | 2024-11-29 09:01 | XMS_ITS | Encounter Summary ---
Author Organization [employer] [facility] Address [address] [facility] 7t [place] [address] Care Team Providers Care Reworker Name Role Phone Umm Coley MD Primary Care Provider + Reason for Visit * Reason Onset Date Comments pre med prior to dental treatment 08/23/2024 Encounter Details Date Type Department Care Team ([facility] st Contact Info) Description 08/23/2024 Telephone [facility] ADULT DENTAL [address] [place], [place] [phone] Johnny Gonzalez, DMD [address] [place] [address] pre med prior to dental treatment Social History Tobacco Use Types Packs/Day Years [...] * Telephone Encounter - Scarlet Hall - 08/23/2024 8:33 AM EDT Patient has an appt today and is upset because pre med had not been sent to the pharmacy. She states that she was told that it has to go through her PCP but states that the dental provider has sent them in the past. She is confused because she states she is getting different information on whether or not she needs to take them per PCP. She does not want to miss the appt but states that if the antibiotic is not sent, she is still going to come to the appt to try to straighten out the need for her to take pre medication. She has her medication slips from pharmacy from past with instructions of how she was to take them prior to dental visits. Can antibiotics be sent to the pharmacy for patient? Her appt is at 10:30. I also spoke with Nina in the front edger with a run through of what was happening with the patient and she stated she would also send something to provider for clarificationDR documented in this encounter Plan of Treatment Upcoming Encounters Date Type Department Care Team (Late st Contact Info) Description 03/08/2025 10:00 AM EDT Office Visit [facility] ADULT DENTAL [address] [place] [address] Mariangel Ruff [address] [place] [address] documented as of this encounter Visit Diagnoses Not on filedocumented in this encounter Additional Health Concerns Assessment Noted Time PHQ-9 Depression Total Score: 10 024 9:17 AM EDT documented as of this encounter Care Teams Reworker Relationship Specialty Start Date End Date Umm Coley MD [address] [place] [address] [place] [address] PCP - General Family Medicine 10/31/16 [facility] 05/11/24 11/17/24 [facility] 11/14/24 documented as of this encounter
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
--- OUTSIDE RECORDS SUMMARY | 2024-11-29 09:01 | XMS_ITS | Encounter Summary ---
Author Organization [employer] [facility] Address [address] [facility] 7t [place] [address] Care Team Providers Care Pot Fisher Name Role Phone Umm Coley MD Primary Care Provider + Reason for Visit * Reason Onset Date Comments Appointment 02/24/2023 Encounter Details Date Type Department Care Team ([facility] st Contact Info) Description 02/24/2023 Telephone [facility] ADULT DENTAL [address] [place] [address] Johnny Gonzalez, DMD [address] [place] [address] Appointment Social History Tobacco Use Types Packs/Day [...] suspected to have Coronavirus/COVID-19? No / Unsure 02/20/2023 11:15 AM EDT documented as of this encounter Miscellaneous Notes * Telephone Encounter - Makayla Whalen - 02/24/2023 8:23 AM EDT Diana Myles 1965 Patient called in and stated that she has a upcoming appt on 03/09/2023 for RCT but stated that the tooth broke and she wanted to know if she should still come into office for her appt please advise. documented in this encounter Plan of Treatment Upcoming Encounters Date Type Department Care Team (Late st Contact Info) Description 03/08/2025 10:00 AM EDT Office Visit [facility] ADULT DENTAL [address] [place] [address] Trino Ruffaris [address] [place] [address] documented as of this encounter Visit Diagnoses Not on filedocumented in this encounter Care Teams Pot Fisher Relationship Specialty Start Date End Date Umm Coley MD [address] [place] [address] PCP - General Family Medicine 10/31/16 Eva Nunez Bullet Slugs Inspector 04/05/24 07/06/24 [facility] 05/11/24 11/17/24 [facility] 11/14/24 documented as of this encounter
--- OUTSIDE RECORDS SUMMARY | 2024-11-29 09:01 | XMS_ITS | Encounter Summary ---
Author Organization [facility] Address [address] [place] [address] 7t [place] [address] Care Team Providers Care Licensed Professional Counselor Name Role Phone Umm Coley MD Primary Care Provider + Reason for Visit * Reason Comments Med Refill Encounter Details Date Type Department Care Team (Late st Contact Info) Description 06/10/2023 Refill [facility] MEDICINE [address] [place], [place] [phone] Yenny Morris MD [address] [place], [place] [phone] Rash Social History Tobacco Use Types Packs/Day Years [...] 03/08/2025 10:00 AM EDT Office Visit [facility] ADULT DENTAL [address] [place], [place] [phone] Mariangel Ruff [address] [place] [address] documented as of this encounter Visit Diagnoses Diagnosis Rash Rash and other nonspecific skin eruption documented in this encounter Additional Health Concerns Assessment Noted Time PHQ-9 Depression Total Score: 12 023 1:58 PM EDT documented as of this encounter Care Teams Licensed Professional Counselor Relationship Specialty Start Date End Date Umm Coley MD [address] [place] [phone] PCP - General Family Medicine 10/31/16 Eva Nunez Line Lead 04/05/24 07/06/24 [facility] 05/11/24 11/17/24 [facility] 11/14/24 documented as of this encounter
--- OUTSIDE RECORDS SUMMARY | 2024-11-29 09:01 | XMS_ITS | Encounter Summary ---
Author Organization [employer] Address [address] [facility] 7t [place] [address] Care Team Providers Care Drug Safety Data Management Specialist Name Role Phone Umm Coley MD Primary Care Provider + Encounter Details Date Type Department Care Team (Late st Contact Info) Description 03/05/2023 Orders Only [facility] MEDICINE [address] [place], [place] [phone] Umm Coley MD 230 [place], [place] [phone] Social History Tobacco Use Types Packs/Day Years [...] Description 03/08/2025 10:00 AM EDT Office Visit [facility] ADULT DENTAL [address] [place], [place] [phone] Mariangel Ruff [address] [place] [address] documented as of this encounter Visit Diagnoses Not on filedocumented in this encounter Care Teams Drug Safety Data Management Specialist Relationship Specialty Start Date End Date Umm Coley MD [address] [place] [id number] PCP - General Family Medicine 10/31/16 Eva Nunez Keyboard Action Assembler 04/05/24 07/06/24 [facility] 05/11/24 11/17/24 [facility] 11/14/24 documented as of this encounter
--- OUTSIDE RECORDS SUMMARY | 2024-11-29 09:01 | XMS_ITS | Encounter Summary ---
Author Organization [email or web address] Address [address] [facility] 7t [place] [address] Care Team Providers Care Print Developer Automatic Name Role Phone Umm Coley MD Primary Care Provider + Reason for Visit * Reason Onset Date Comments VNA agency switch 11/10/2024 Encounter Details Date Type Department Care Team ([facility] st Contact Info) Description 11/10/2024 Telephone [facility] MEDICINE [address] [place], [place] [phone] Gisela Reynoso, BEBA [address] [place] [address] VNA agency switch Social History Tobacco Use Types Packs/Day Years [...] encounter Miscellaneous Notes * Telephone Encounter - Gisela Reynoso RN - 11/10/2024 2:58 PM EST TC placed to [facility] to obtain fax number for VNA referral. RN was informed fax number is [phone]. RN has faxed referral, confirmation page received. RN has also faxed to fax number on preferred agency list for [facility] [phone], confirmation page received. ----- Message from Umm Coley MD sent at 11/10/2024 2:10 PM EST ----- Please call [facility] to transfer patent's VNA care there (from [facility]), she needs med administration, suicide precautions, meds in locked box, pharmaco education and hospitalization prevention. She has TUB TENDER and also needs appt reminders (I think TUB TENDER does it?). No routine VS check, only prn dizziness/weakness and transfer all other skilled services from ; the nurse who's been caring forher lately just moved on to [facility] as reportedly was not authorized to administer meds ? documented in this encounter Plan of Treatment Upcoming Encounters Date Type Department Care Team ([facility] st Contact Info) Description 03/08/2025 10:00 AM EDT Office Visit [facility] ADULT DENTAL [address] [place] [address] Mariangel Ruff [address] [place] [address] documented as of this encounter Visit Diagnoses Not on filedocumented in this encounter Additional Health Concerns Assessment Noted Time PHQ-9 Depression Total Score: 10 024 9:17 AM EDT documented as of this encounter Care Teams Print Developer Automatic Relationship Specialty Start Date End Date Umm Coley MD [address] [place] [address] PCP - General Family Medicine 10/31/16 [facility] 05/11/24 11/17/24 documented as of this encounter
--- OUTSIDE RECORDS SUMMARY | 2024-11-29 09:01 | XMS_ITS | Encounter Summary ---
Author Organization [employer] [facility] Address [address] [place] [address] 7t [place] [address] Care Team Providers Care Management Engineer Name Role Phone Umm Colye MD Primary Care Provider + Encounter Details Date Type Department Care Team (Latest Contact Info) Description 03/13/2022 Abstract [facility] CONVERSIONS Dental, Provider, DDS Social History Tobacco [...] AM EDT Office Visit [facility] ADULT DENTAL [address] [place] [address] Elzbieta, Mariangel [address] [place] [address] documented as of this encounter Visit Diagnoses Not on filedocumented in this encounter Care Teams Management Engineer Relationship Specialty Start Date End Date Umm Coley MD 230 [place] [address] PCP - General Family Medicine 10/31/16 Eva Nunez Wellness Ambassador 04/05/24 07/06/24 [facility] 05/11/24 11/17/24 [facility] 11/14/24 documented as of this encounter
--- OUTSIDE RECORDS SUMMARY | 2024-11-29 09:01 | XMS_ITS | Encounter Summary ---
Author Organization [employer] Address [address] [facility] 7t [place] [address] Care Team Providers Care Jackhammer Operator Name Role Phone Umm Coley MD Primary Care Provider + Reason for Visit * Reason Onset Date Comments Appointment 03/17/2023 Encounter Details Date Type Department Care Team ([facility] st Contact Info) Description 03/17/2023 Telephone [facility] ADULT DENTAL [address] [place] [address] Johnny Gonzalez, DMD [address] [place] [address] Appointment Social History Tobacco Use Types Packs/Day [...] * Telephone Encounter - Scarlet Hall - 03/20/2023 1:20 PM EDT Patient states she is a normal pre med patient and always takes antibiotics 1 hour prior to dental visit. * Telephone Encounter - Makayla Whalen - 03/17/2023 8:25 AM EDT Diana Myles 1965 Patient stated she needs antibiotic sent to pharmacy before her appt on 03/24/2023 documented in this encounter Plan of Treatment Upcoming Encounters Date Type Department Care Team (Late st Contact Info) Description 03/08/2025 10:00 AM EDT Office Visit [facility] ADULT DENTAL [address] [place], [place] [phone] Mariangel Ruff [address] [place] [address] documented as of this encounter Visit Diagnoses Not on filedocumented in this encounter Care Teams Jackhammer Operator Relationship Specialty Start Date End Date Umm Coley MD 230 [place] [address] PCP - General Family Medicine 10/31/16 Eva uNnez Printer Slotter Helper 04/05/24 07/06/24 [facility] 05/11/24 11/17/24 [facility] 11/14/24 documented as of this encounter
--- OUTSIDE RECORDS SUMMARY | 2024-11-29 09:01 | XMS_ITS | Encounter Summary ---
Author Organization [employer] Address [address] [facility] 7t [place] [address] Care Team Providers Care Field Assessor Name Role Phone Umm Coley MD Primary Care Provider + Encounter Details Date Type Department Care Team (Late st Contact Info) Description 11/03/2022 Orders Only [facility] MEDICINE [address] [place], [place] [phone] Umm Coley MD 230 [place], [place] [phone] Osteopenia after menopause (Primary Dx) Social History Tobacco Use Types Packs/Day Years [...] suspected to have Coronavirus/COVID-19? No / Unsure 10/20/2022 3:32 PM EST documented as of this encounter Progress Notes * Umm Coley MD - 11/03/2022 8:01 PM EST o documented in this encounter Plan of Treatment Upcoming Encounters Date Type Department Care Team (Late st Contact Info) Description 03/08/2025 10:00 AM EDT Office Visit [facility] ADULT DENTAL [address] [place], [place] [phone] Mariangel Ruff [address] [place], [place] [phone] Scheduled Orders Name Type Priority Associated Diagnoses Orde r Schedule Vitamin D, 25-Hydroxy, Total, Immunoassay Lab Routine Osteopenia after menopause Expected: 11/03/2022 (Approximate), Expires: 11/03/2023 PTH, Intact (ICMA) And Ionized Calcium Lab Routine Osteopenia after menopause Expected: 11/03/2022 (Approximate), Expires: 11/03/2023 documented as of this encounter Visit Diagnoses Diagnosis Osteopenia after menopause- Primary documented in this encounter Care Teams Field Assessor Relationship Specialty Start Date End Date Umm Coley MD 230 [place] [address] PCP - General Family Medicine 10/31/16 Eva Nunez Safemaker 04/05/24 07/06/24 [facility] 05/11/24 11/17/24 [facility] 11/14/24 documented as of this encounter
--- OUTSIDE RECORDS SUMMARY | 2024-11-29 09:01 | XMS_ITS | Encounter Summary ---
Author Organization [employer] [facility] Address [address] [place] [address] 7t [place] [address] Care Team Providers Care Computer Systems Technician Name Role Phone Umm Coley MD Primary Care Provider + Encounter Details Date Type Department Care Team (Latest Contact Info) Description 11/14/2019 Abstract [facility] CONVERSIONS Dental, Provider, DDS Social History [...] Description 03/08/2025 10:00 AM EDT Office Visit [facility] ADULT DENTAL [address] [place] [address] Elzbieta, Mariangel [address] [place] [address] documented as of this encounter Visit Diagnoses Not on filedocumented in this encounter Care Teams Computer Systems Technician Relationship Specialty Start Date End Date Umm Coley MD [address] [place] [address] PCP - General Family Medicine 10/31/16 Eva Nunez Drag Sawyer 04/05/24 07/06/24 [facility] 05/11/24 11/17/24 [facility] 11/14/24 documented as of this encounter
--- OUTSIDE RECORDS SUMMARY | 2024-11-29 09:01 | XMS_ITS | Encounter Summary ---
Author Organization [employer] Address [address] [facility] 7t [place] [address] Care Team Providers Care Cocoa Room Operator Name Role Phone Umm Coley MD Primary Care Provider + Encounter Details Date Type Department Care Team (Late st Contact Info) Description 08/23/2024 Orders Only [facility] ADULT DENTAL [address] [place], [place] [phone] Johnny Gonzalez, DMD [address] [place], [place] [phone] Social History Tobacco Use Types Packs/Day Years [...] 03/08/2025 10:00 AM EDT Office Visit [facility] ADULT DENTAL [address] [place] [address] ElzbietaMariangel [address] [place] [address] documented as of this encounter Visit Diagnoses Not on filedocumented in this encounter Additional Health Concerns Assessment Noted Time PHQ-9 Depression Total Score: 10 024 9:17 AM EDT documented as of this encounter Care Teams Cocoa Room Operator Relationship Specialty Start Date End Date Umm Coley MD [address] [place] [address] PCP - General Family Medicine 10/31/16 [facility] 05/11/24 11/17/24 [facility] 11/14/24 documented as of this encounter
== END 2024-11-29 08:39 | disposition home or self-care (01) ==
LOC: HO.MAMMO 08:38
PROVIDERS: PCP Internal Medicine; Visit Provider Internal Medicine
DX: Z12.31 Encounter for screening mammogram for malignant neoplasm of breast (principal)
CPT/HCPCS: 77063; 77067

== ENCOUNTER → 2024-12-06 18:01 | Outpatient (BNV) | payer MEDICAID, SELFPAY | PROVIDERS: PCP Internal Medicine; Visit Provider Radiology Diagnostic Radiology | DX: M25.562 Pain in left knee (principal) | CPT/HCPCS: 73721 ==

== ENCOUNTER 2024-12-13 08:48 | Outpatient (AMB) | payer MEDICAID, SELFPAY ==
[2024-12-13 08:55] VITALS: BP 118/62; PULSE 89; O2SAT 96; BMI 20.6
--- NOTE | 2024-12-13 08:55 | MHC.OFFVIS ---
Vital Signs 12/13/24 08:55 Height 5 ft 2 in Weight 112 lb 6.972 oz BMI 20.6 BP 118/62 Blood Pressure Location Lt brachial Position Sitting Pulse 89 Pulse Source Doppler Pulse Oximetry (%) 96 Oxygen Delivery Method Room Air Intake Visit Reasons: Dyspnea Allergies codeine [CODEINE] Allergy (Intermediate, Verified 09/26/24 11:30) DIZZY/NAUSEA, nausea/vomiting escitalopram [From LEXAPRO] Allergy (Intermediate, Verified 09/26/24 11:30) ? NAUSEA meperidine [MEPERIDINE] Allergy (Intermediate, Verified 09/26/24 11:30) NAUSEA morphine [MORPHINE] Allergy (Intermediate, Verified 09/26/24 11:30) PALPITATIONS, palpitation oxycodone [OXYCODONE] Allergy (Intermediate, Verified 09/26/24 11:30) PALPATATIONS, palpitations tramadol Allergy (Unknown, Verified 09/26/24 11:30) dizziness, nausea acetaminophen [From Percocet] Allergy (Verified 09/26/24 11:30) Shakiness HPI HPI Dyspnea: Details: 59-year-old lady, former minimal smoker, with underlying history of treated TB in her late teens, right breast cancer status post lumpectomy, chemo, and radiation in 2010 referred for evaluation of dyspnea on exertion that occurs after patient walks for several blocks.? She has had a recent negative cardiac workup.? Patient denies prior personal history of lung disease.? She has lots of first-degree relatives with asthma.? Patient has had COVID back in December of 2020, however her dyspnea symptoms predate but got worse after her COVID infection.? She denies any wheezing, cough, sputum production.? She has multiple environmental allergies. Her pulmonary function test showed mild decrease in diffusion capacity and otherwise has been unremarkable.? [facility] CT chest is normal and pulmonary function test that is essentially normal with only minor defect in diffusion capacity that does not explain her symptoms. Patient was not able tolerate Trelegy secondary to it being powder inhaler. She was not able to receive BrezTri or Bevespi. She has been using Symbicort with some symptom control. [facility] Medical History (Updated 11/09/24 @ 14:06 by Denilson Forman PA-C) Primary osteoarthritis of right hand Migraine Right shoulder pain Rotator cuff tendinitis Arthritis of right shoulder region Right hand pain Breast cancer, right Status post radiation therapy Anemia Diarrhea Depression Somatization disorder Migraine equivalent syndrome Anxiety Periodontal disease Fibromyalgia Surgical History History of esophagogastroduodenoscopy (EGD) History of lumpectomy Hx of section Hx of shoulder surgery Hx of colonoscopy Family History Mother HTN (hypertension) Sister Breast cancer Bone cancer Colon polyps Sister Osteoporosis Hypercholesteremia Colon polyps Social History Household Members: None Housing: Apartment Are you a primary child care specialist to a significant other at home: No Do you presently have visiting nurse or other home services: Yes (ENVIRONMENTAL RESEARCH SCIENTIST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 Review of Systems Const Denies daytime sleepiness, Denies excessive sweating, Denies fatigue, Denies fever(s), Denies lethargy, Denies malaise, Denies night sweats, Denies snoring and Denies weight loss Eyes Denies blurry vision and Denies itchy eyes ENT Denies nasal congestion, Denies post nasal drip, Denies sinus pain, Denies sinus pressure and Denies other ( Thrush) Card Denies chest pain, Denies pedal edema, Denies dyspnea, Denies orthopnea and Denies paroxysmal nocturnal dyspnea Resp Denies cough, Denies hemoptysis, Denies excessive phlegm production, Denies dyspnea, Denies snoring and Denies wheezing GI Denies abdominal pain and Denies heartburn Musc Denies myalgias, Denies arthralgias and Denies joint swelling Skin/Breast Denies rash Neuro Denies memory loss and Denies seizure-like activity Psych Denies abnormal sleep pattern, Denies anxiety and Denies memory loss Endo Denies excessive sweating, Denies fatigue and Denies heat intolerance Marko/Lymph Denies easy bruising Aller/Immun Denies itchy eyes, Denies seasonal rhinorrhea and Denies wheezing Physical Exam Vital Signs: Last Vital Signs Pulse 89 12/13/24 08:55 BP 118/62 02/11/25 08:55 Pulse Ox 96 12/13/24 08:55 Oxygen Delivery Method Room Air 12/13/24 08:55 BMI result Body Mass Index 20.6 Const General: no acute distress and alert Nutritional Appearance: not obese Orientation/consciousness: Other orientation findings ( oriented) HEENT Head: Yes atraumatic Eyes General: appearance normal, both eyes and all related structures Sclerae: sclerae normal EOM: EOMs intact bilaterally Neck Neck: Yes supple Lymphatic: no lymphadenopathy noted Resp Effort & Inspection: normal respiratory effort and no use of accessory muscles Auscultation: clear to auscultation bilaterally Cardio Rate: regular rate Rhythm: regular rhythm Heart sounds: no gallops, no murmurs and no rubs Skin General skin exam: other ( warm) Extrem General: No clubbing, No cyanosis and No edema Assessment & Plan Assessment & Plan (1) Reactive airway disease: Code(s): J45.909 - Unspecified asthma, uncomplicated Category: Medical Plan: Well controlled on Symbicort and albuterol MDI. Continue current regimen. (2) Dyspnea on exertion: Code(s): R06.00 - Dyspnea, unspecified Category: Medical Plan: Unclear etiology. Will obtain cardiopulmonary exercise test. Orders: Orders XR chest 2V Today J45.909 - Unspecified asthma, uncomplicated CA cardiopulmonary stress test Today R06.09 - Other forms of dyspnea Coding Level of Care Code Est Pt Level 4 (41920) Diagnoses Reactive airway disease J45.909 Dyspnea on exertion R06.00
== END 2024-12-13 09:24 | disposition home or self-care (01) ==
PROVIDERS: PCP Internal Medicine; Visit Provider Internal Medicine Pulmonary Disease
DX: J45.909 Unspecified asthma, uncomplicated (principal); R06.00 Dyspnea, unspecified
CPT/HCPCS: 99214

== ENCOUNTER 2024-12-13 08:48 | Outpatient (REF) | payer MEDICAID, SELFPAY ==
--- NOTE | ~2024-12-13 | XR_ITS ---
EXAMINATION: XR CHEST CLINICAL INFORMATION: J45.909 - Unspecified asthma, uncomplicated COMPARISON: 02/29/2024. TECHNIQUE: 2 views of the chest were obtained. FINDINGS: The cardiac, hilar, and mediastinal contours are normal. The lungs are clear bilaterally. There is no pneumothorax or pleural effusion. There is no focal osseous or soft tissue abnormality. Surgical clips right breast and right axilla. XR/XR chest 2V IMPRESSION: No active pulmonary disease. Electronically signed by: Mathieu Lepe MD 12/13/2024 10:04 AM [facility]
--- OUTSIDE RECORDS SUMMARY | 2024-12-13 10:32 | XMS_ITS | Clinical Summary ---
Author Organization Unknown Care Team Providers Care Cartoon Artist Name Role Phone DANIEL JACOBS, SAHLONDA Unavailable Unavailable DUANE YODER, TEE Unavailable Unavailable Payers Payer Name Policy Type Policy Number Effective Date Expira tion Date MEDICAID [facility] [id number] Problems Condition Name Condition Details Condition Category Status Onset Date Resolution Date Last Treatment Date Treating Clinician Comments GENERALIZED ANXIETY DISORDER Active 1- 00:00: 00 BORDERLINE PERSONALITY DISORDER Active 02-21 00:00: 00 POST-TRAUMAT IC STRESS DISORDER, UNSPECIFIED Active 02-21 00:00: 00 BIPOLAR DISORDER, UNSPECIFIED Active 02-21 00:00: 00 FIBROMYALGIA Active 01-09 00:00: 00 MIGRAINE W/O AURA, NOT INTRACTABLE, W/O STATUS MIGRAINOSUS Active 7-12 00:00: 00 POLYNEUROPAT HY, UNSPECIFIED Active 3-14 00:00: 00 LUMBAGO WITH SCIATICA, LEFT SIDE Active 1-06 00:00: 00 PERSONAL HISTORY OF MALIGNANT NEOPLASM OF BREAST Active 3-14 00:00: 00 HISTORY OF FALLING Active 412 00:00: 00 OTH DISRD OF BONE DENSITY AND STRUCTURE, UNSPECIFIED SITE Active 5-12 00:00: 00 OTHER ASSISTED (CURRENT) DRUG THERAPY Active 1-15 00:00: 00 ASSISTED (CURRENT) USE OF NON-STEROIDA L NON-INFLAM (NSAID) Active - 00:00: 00 Allergies, Adverse Reactions, Alerts Allergy [...] on aerosol inhaler 01-20 00:00: 00 Yes [id number] Per instruc tions DOS VECES AL D Per instructio ns DOS VECES AL D (route: inhalation ) Med Classific ation: Respirato ry Therapy Agents magnesium oxide 400 mg (241.3 mg magnesium) tablet 01-30 00:00: 00 11-14 00:00 :00 No [id number] Per instruc tions TOME NAIMA TABLETA TODOS LOS D Per instructio ns TOME NAIMA TABLETA TODOS LOS D (route: oral) Med Classific ation: Electroly te Balance-N utritiona l Products buspirone 15 mg tablet 01-16 00:00: 00 Yes [id number] Per instruc tions TOME NAIMA TABLETA CHEMA VECES AL D Per instructio ns TOME NAIMA TABLETA CHEMA VECES AL D (route: oral) Med Classific ation: Central Nervous System Agents melatonin 5 mg tablet 01-30 00:00: 00 Yes [id number] Per instruc tions EVERYDAY AT 5 PM FOR 2 WEEKS THEN MAY INCREASE TO 2 TABS E VERYDAY AT Per instructio ns EVERYDAY AT 5 PM FOR 2 WEEKS THEN MAY INCREASE TO 2 TABS E VERYDAY AT (route: oral) Med Classific ation: Central Nervous System Agents loratadine 10 mg tablet 01-04 00:00: 00 Yes [id number] Per instruc tions TOME NAIMA TABLETA TODOS LOS D Per instructio ns TOME NAIMA TABLETA TODOS LOS D (route: oral) Med Classific ation: Respirato ry Therapy Agents senna 8.6 mg tablet 01-30 00:00: 00 Yes [id number] Per instruc tions TODOS LOS D Per instructio ns TODOS LOS D (route: oral) Med Classific ation: Gastroint estinal Therapy Agents omeprazole 20 mg capsule,del ayed release 01-27 00:00: 00 Yes [id number] Per instruc tions TODOS LOS D Per instructio ns TODOS LOS D (route: oral) Med Classific ation: Gastroint estinal Therapy Agents mirtazapine 45 mg tablet 24 00:00: 00 Yes [id number] Per instruc tions AT BEDTIME DIRECTED Per instructio ns AT BEDTIME DIRECTED (route: oral) Med Classific ation: Central Nervous System Agents famotidine 40 mg tablet 01-30 00:00: 00 11-14 00:00 :00 No [id number] Per instruc tions Per instructio ns (route: oral) Med Classific ation: Gastroint estinal Therapy Agents olanzapine 20 mg tablet 01-30 00:00: 00 Yes [id number] Per instruc tions AT BEDTIME Per instructio ns AT BEDTIME (route: oral) Med Classific ation: Central Nervous System Agents clonazepam 1 mg tablet 01-08 00:00: 00 Yes [id number] Per instruc tions TOME NAIMA TABLETA DOS VECES AL D Per instructio ns TOME NAIMA TABLETA DOS VECES AL D (route: oral) Med Classific ation: Central Nervous System Agents dicyclomine 20 mg tablet 01-08 00:00: 00 Yes [id number] Per instruc tions CUATRO VECES AL D Per instructio ns CUATRO VECES AL D (route: oral) Med Classific ation: Gastroint estinal Therapy Agents amlodipine 2.5 mg tablet 01-19 00:00: 00 11-14 00:00 :00 No [id number] Per instruc tions TOME NAIMA TABLETA TODOS LOS D Per instructio ns TOME NAIMA TABLETA TODOS LOS D (route: oral) Med Classific ation: Cardiovas cular Therapy Agents sertraline 100 mg tablet 17 00:00: 00 Yes [id number] Per instruc tions TODOS LOS D Per instructio ns TODOS LOS D (route: oral) Med Classific ation: Central Nervous System Agents nabumetone 500 mg tablet 01-31 00:00: 00 11-14 00:00 :00 No [id number] Per instruc tions TOME NAIMA TABLETA DOS VECES AL D Per instructio ns TOME NAIMA TABLETA DOS VECES AL D (route: oral) Med Classific ation: Analgesic , Anti-infl ammatory or Antipyret ic amitriptyli ne 50 mg tablet 01-27 00:00: 00 Yes [id number] Per instruc tions TOME NAIMA TABLETA TODOS LOS D AL ACOSTARSE FOR 30 DAYS Per instructio ns TOME NAIMA TABLETA TODOS LOS D AL ACOSTARSE FOR 30 DAYS (route: oral) Med Classific ation: Central Nervous System Agents prazosin 2 mg capsule 01-22 00:00: 00 Yes [id number] Per instruc tions TODOS LOS D Per instructio ns TODOS LOS D (route: oral) Med Classific ation: Cardiovas cular Therapy Agents cholecalcif juan (vitamin D3) 50 mcg (2,000 unit) capsule 01-08 00:00: 00 Yes [id number] Per instruc tions PSULA TODOS LOS D Per instructio ns PSULA TODOS LOS D (route: oral) Med Classific ation: Electroly te Balance-N utritiona l Products cyanocobala min (vit B-12) 100 mcg tablet 01-16 00:00: 00 Yes [id number] Per instruc tions TODOS LOS D Per instructio ns TODOS LOS D (route: oral) Med Classific ation: Electroly te Balance-N utritiona l Products FeroSul 325 mg (65 mg iron) tablet 11-13 00:00: 00 Yes [id number] 325 mg 3 TIMES A WEEK 325 mg 3 TIMES A WEEK (route: oral) Med Classific ation: Electroly te Balance-N utritiona l Products Vitamin C 500 mg chewable tablet 11-13 00:00: 00 Yes [id number] 500 mg 3 TIMES A WEEK 500 mg 3 TIMES A WEEK (route: oral) Med Classific ation: Electroly te Balance-N utritiona l Products Vital Signs Vital Name Observation Time Observation Value Commen ts Temperature 2024-11-30 11:51:00.000 96.8 [degF] Temperature 2024-11-29 11:53:00.000 97.2 [degF] Temperature 2024-11-28 11:00:00.000 97.2 [degF] Temperature 2024-11-24 11:20:00.000 96.6 [degF] Temperature 2024-11-23 12:35:00.000 97.1 [degF] Temperature 2024-11-22 13:52:00.000 96.7 [degF] Temperature 2024-11-19 10:47:00.000 96.8 [degF] Temperature 2024-11-16 11:06:00.000 97.4 [degF] Temperature 2024-11-14 11:37:00.000 97.1 [degF] BMI (%) 2024-11-14 11:37:00.000 19 kg/m2 Height 2024-11-14 11:37:00.000 62 [in_us] Pulse 2024-11-30 11:51:00.000 84 /min Pulse 2024-11-29 11:53:00.000 85 /min Pulse 2024-11-28 11:00:00.000 76 /min Pulse 2024-11-24 11:20:00.000 80 /min Pulse 2024-11-23 12:36:00.000 76 /min Pulse 2024-11-22 13:52:00.000 80 /min Pulse 2024-11-19 10:47:00.000 76 /min Pulse 2024-11-16 11:06:00.000 80 /min Pulse 2024-11-14 11:37:00.000 86 /min Respirations 2024-11-30 11:51:00.000 16 /min Respirations 2024-11-29 11:53:00.000 16 /min Respirations 2024-11-28 11:00:00.000 16 /min Respirations 2024-11-24 11:20:00.000 16 /min Respirations 2024-11-23 12:36:00.000 16 /min Respirations 2024-11-22 13:52:00.000 16 /min Respirations 2024-11-19 10:47:00.000 16 /min Respirations 2024-11-16 11:06:00.000 16 /min Respirations 2024-11-14 11:37:00.000 16 /min Weight (lbs) 2024-11-14 11:37:00.000 105 [lb_av] Systolic Blood Pressure 2024-11-30 11:51:00.000 122 mm [Hg] Systolic Blood Pressure 2024-11-29 11:53:00.000 116 mm [Hg] Systolic Blood Pressure 2024-11-28 11:00:00.000 114 mm [Hg] Systolic Blood Pressure 2024-11-24 11:20:00.000 118 mm [Hg] Systolic Blood Pressure 2024-11-23 12:36:00.000 118 mm [Hg] Systolic Blood Pressure 2024-11-22 13:52:00.000 114 mm [Hg] Systolic Blood Pressure 2024-11-19 10:47:00.000 114 mm [Hg] Systolic Blood Pressure 2024-11-16 11:06:00.000 118 mm [Hg] Systolic Blood Pressure 2024-11-14 11:37:00.000 109 mm [Hg] Diastolic Blood Pressure 2024-11-30 11:51:00.000 68 mm [Hg] Diastolic Blood Pressure 2024-11-29 11:53:00.000 60 mm [Hg] Diastolic Blood Pressure 2024-11-28 11:00:00.000 68 mm [Hg] Diastolic Blood Pressure 2024-11-24 11:20:00.000 68 mm [Hg] Diastolic Blood Pressure 2024-11-23 12:36:00.000 72 mm [Hg] Diastolic Blood Pressure 2024-11-22 13:52:00.000 70 mm [Hg] Diastolic Blood Pressure 2024-11-19 10:47:00.000 72 mm [Hg] Diastolic Blood Pressure 2024-11-16 11:06:00.000 70 mm [Hg] Diastolic Blood Pressure 2024-11-14 11:37:00.000 [...] AWARENESS FOR SAFETY AND WILL NOTIFY CLINICAL SURGEON PARTNER AND PHYSICIAN/PROVIDER WITH ANY CHANGE IN CONDITION. [code = SKILLED NURSE WILL MAINTAIN SITUATIONAL AWARENESS FOR SAFETY AND WILL NOTIFY CLINICAL SURGEON PARTNER AND PHYSICIAN/PROVIDER WITH ANY CHANGE IN CONDITION.] Goal Patient Goal - T O FEEL HAPPY AND NOT BE TIRED ALL THE TIME. Goal Provider Goal - A PLAN OF CARE WILL BE ESTABLISHED THAT MEETS PATIENT'S CARE HOME NEEDS AND INCLUDES PATIENT GOAL FOR HOME [...] SELF AND OTHERS THROUGHOUT THE CERTIFICATION PERIOD. Reason for Visit INDEPENDENT WITH USE OF ASSISTIVE DEVICE Encounters Start Date/Time End Date/Time Encounter Type Admission Type Attending [facility] Care Facility Care Department Encounter ID Discharge Date Discharge Status Discharge Condition Discharge Reason Percent Goals Met 2024-11-14 00:00:00 2024-12-08 00:00:00 Outpatient TEE CALIXTO [facility] [id number] 2024-12-08 00:00:00 DISCHARGE TO HOME OR SELF CARE INDEPENDEN T WITH USE OF ASSISTIVE DEVICE NON COMPLIANT WITH PLAN OF TREATMENT 5.88
--- OUTSIDE RECORDS SUMMARY | 2024-12-13 10:32 | XMS_ITS | Clinical Summary ---
Author Organization Unknown Care Team Providers Care Suture Winder Hand Name Role Phone DANIEL JACOBS, SHALONDA Unavailable Unavailable DUANE YODER, TEE Unavailable Unavailable Payers Payer Name Policy Type Policy Number Effective Date Expira tion Date MEDICAID [facility] [id number] Problems Condition Name Condition Details Condition Category [...] UNSPECIFIED SITE Active 5-12 00:00: 00 OTHER NURSING HOME (CURRENT) DRUG THERAPY Active 1-15 00:00: 00 NURSING HOME (CURRENT) USE OF NON-STEROIDA L NON-INFLAM (NSAID) [...] on aerosol inhaler 01-20 00:00: 00 Yes [id number] Per instruc tions DOS VECES AL D Per instructio ns DOS VECES AL D (route: inhalation ) Med Classific ation: Respirato ry Therapy Agents magnesium oxide 400 mg (241.3 mg magnesium) tablet 01-30 00:00: 00 11-14 00:00 :00 No [id number] Per instruc tions TOME NAIMA TABLETA TODOS LOS D Per instructio ns TOME NAIMA TABLETA TODOS LOS D (route: oral) Med Classific ation: Electroly te Balance-N utritiona l Products buspirone 15 mg tablet 01-16 00:00: 00 Yes [id number] Per instruc tions TOME NAIMA TABLETA CHEMA VECES AL D Per instructio ns TOME NAIMA TABLETA CHEMA VECES AL D (route: oral) Med Classific ation: Central Nervous System Agents melatonin 5 mg tablet 01-30 00:00: 00 Yes [id number] Per instruc tions EVERYDAY AT 5 PM FOR 2 WEEKS THEN MAY INCREASE TO 2 TABS E VERYDAY AT Per instructio ns EVERYDAY AT 5 PM FOR 2 WEEKS THEN MAY INCREASE TO 2 TABS E VERYDAY AT (route: oral) Med Classific ation: Central Nervous System Agents loratadine 10 mg tablet 01-04 00:00: 00 Yes [id number] Per instruc tions TOME NAIMA TABLETA TODOS LOS D Per instructio ns TOME NAIMA TABLETA TODOS LOS D (route: oral) Med Classific ation: Respirato ry Therapy Agents senna 8.6 mg tablet 01-30 00:00: 00 Yes [id number] Per instruc tions TODOS LOS D Per instructio ns TODOS LOS D (route: oral) Med Classific ation: Gastroint estinal Therapy Agents omeprazole 20 mg capsule,del ayed release 01-27 00:00: 00 Yes [id number] Per instruc tions TODOS LOS D Per instructio ns TODOS LOS D (route: oral) Med Classific ation: Gastroint estinal Therapy Agents mirtazapine 45 mg tablet 24 00:00: 00 Yes [id number] Per instruc tions AT BEDTIME DIRECTED Per instructio ns AT BEDTIME DIRECTED (route: oral) Med Classific ation: Central Nervous System Agents famotidine 40 mg tablet 01-30 00:00: 00 11-14 00:00 :00 No [id number] Per instruc tions Per instructio ns (route: oral) Med Classific ation: Gastroint estinal Therapy Agents olanzapine 20 mg tablet 01-30 00:00: 00 Yes [id number] Per instruc tions AT BEDTIME Per instructio ns AT BEDTIME (route: oral) Med Classific ation: Central Nervous System Agents clonazepam 1 mg tablet 01-08 00:00: 00 Yes [id number] Per instruc tions TOME NAIMA TABLETA DOS VECES AL D Per instructio ns TOME NAIMA TABLETA DOS VECES AL D (route: oral) Med Classific ation: Central Nervous System Agents dicyclomine 20 mg tablet 01-08 00:00: 00 Yes [id number] Per instruc tions CUATRO VECES AL D Per instructio ns CUATRO VECES AL D (route: oral) Med Classific ation: Gastroint estinal Therapy Agents amlodipine 2.5 mg tablet 01-19 00:00: 00 11-14 00:00 :00 No [id number] Per instruc tions TOME NAIMA TABLETA TODOS LOS D Per instructio ns TOME NAIMA TABLETA TODOS LOS D (route: oral) Med Classific ation: Cardiovas cular Therapy Agents sertraline 100 mg tablet 17 00:00: 00 Yes [id number] Per instruc tions TODOS LOS D Per instructio ns TODOS LOS D (route: oral) Med Classific ation: Central Nervous System Agents nabumetone 500 mg tablet 01-31 00:00: 00 11-14 00:00 :00 No [id number] Per instruc tions TOME NAIMA TABLETA DOS VECES AL D Per instructio ns TOME NAIMA TABLETA DOS VECES AL D (route: oral) Med Classific ation: Analgesic , Anti-infl ammatory or Antipyret ic amitriptyli ne 50 mg tablet 01-27 00:00: 00 Yes [id number] Per instruc tions TOME NAIMA TABLETA TODOS LOS D AL ACOSTARSE FOR 30 DAYS Per instructio ns TOME NAIMA TABLETA TODOS LOS D AL ACOSTARSE FOR 30 DAYS (route: oral) Med Classific ation: Central Nervous System Agents prazosin 2 mg capsule 01-22 00:00: 00 Yes [id number] Per instruc tions TODOS LOS D Per instructio ns TODOS LOS D (route: oral) Med Classific ation: Cardiovas cular Therapy Agents cholecalcif juan (vitamin D3) 50 mcg (2,000 unit) capsule 01-08 00:00: 00 Yes [id number] Per instruc tions PSULA TODOS LOS D Per instructio ns PSULA TODOS LOS D (route: oral) Med Classific ation: Electroly te Balance-N utritiona l Products cyanocobala min (vit B-12) 100 mcg tablet 01-16 00:00: 00 Yes [id number] Per instruc tions TODOS LOS D Per instructio ns TODOS LOS D (route: oral) Med Classific ation: Electroly te Balance-N utritiona l Products FeroSul 325 mg (65 mg iron) tablet 11-13 00:00: 00 Yes [id number] 325 mg 3 TIMES A WEEK 325 mg 3 TIMES A WEEK (route: oral) Med Classific ation: Electroly te Balance-N utritiona l Products Vitamin C 500 mg chewable tablet 11-13 00:00: 00 Yes [id number] 500 mg 3 TIMES A WEEK 500 [...] AWARENESS FOR SAFETY AND WILL NOTIFY CLINICAL FURNITURE INSTALLER AND PHYSICIAN/PROVIDER WITH ANY CHANGE IN CONDITION. [code = SKILLED NURSE WILL MAINTAIN SITUATIONAL AWARENESS FOR SAFETY AND WILL NOTIFY CLINICAL FURNITURE INSTALLER AND PHYSICIAN/PROVIDER WITH ANY CHANGE IN CONDITION.] Goal Patient Goal - T O FEEL HAPPY AND NOT BE TIRED ALL THE TIME. Goal Provider Goal - A PLAN OF CARE WILL BE ESTABLISHED THAT MEETS PATIENT'S SENIOR LIVING NEEDS AND INCLUDES PATIENT GOAL FOR HOME [...] End Date/Time Encounter Type Admission Type Attending [facility] Care Facility Care Department Encounter ID Discharge Date Discharge Status Discharge Condition Discharge Reason Percent Goals Met 2024-11-14 00:00:00 2024-12-08 00:00:00 Outpatient TEE CALIXTO [facility] [id number] 2024-12-08 00:00:00 DISCHARGE TO HOME OR SELF CARE INDEPENDEN T WITH USE OF ASSISTIVE DEVICE NON COMPLIANT WITH PLAN OF TREATMENT 5.88
== END 2024-12-13 08:49 | disposition home or self-care (01) ==
LOC: HO.XRAY 08:48
PROVIDERS: PCP Internal Medicine; Visit Provider Internal Medicine Pulmonary Disease
DX: J45.909 Unspecified asthma, uncomplicated (principal); R06.00 Dyspnea, unspecified
CPT/HCPCS: 71046; 99212

== ENCOUNTER → 2024-12-13 09:33 | Outpatient (BNV) | payer MEDICAID, SELFPAY | PROVIDERS: PCP Internal Medicine; Visit Provider Radiology Diagnostic Radiology | DX: J45.909 Unspecified asthma, uncomplicated (principal) | CPT/HCPCS: 71046 ==

== ENCOUNTER 2024-12-23 14:30 | Emergency (ER) | payer MEDICAID, SELFPAY ==
--- NOTE | ~2024-12-23 | XR_ITS ---
CLINICAL HISTORY: post reduction 2 view right hand and 2 view right wrist Comparison: X-rays of the right wrist from 12/23/2024 Findings: Improved alignment of major fracture fragments of the distal radius, now with dorsal displacement of the major fragments containing the radiocarpal articulation in with mild angulation (apex directed volar). Distal ulna comminuted fractures are partly obscured by plaster splint artifacts. Soft tissue details partly obscured with severe soft tissue swelling redemonstrated. No radiopaque foreign body. IMPRESSION: Post splinting of distal radius and distal ulnar fractures This document has been electronically signed by: Nawaf Anglin MD on 12/23/2024 18:57:03
--- NOTE | ~2024-12-23 | XR_ITS ---
EXAMINATION: XR BILATERAL HIPS WITH AP PELVIS CLINICAL INFORMATION: fall COMPARISON: July 19, 2024. February 05, 2024. TECHNIQUE: AP view of the pelvis and single views of each hip were obtained. FINDINGS: Bony pelvis is intact. Coxofemoral joints are intact with normal alignment. Spina bifida occulta S1, congenital.. XR/XR hip BI w PEL1V IMPRESSION: No acute fracture or dislocation. Negative. Electronically signed by: Steven Coreas MD 12/23/2024 03:43 PM [facility]
--- NOTE | ~2024-12-23 | XR_ITS ---
EXAMINATION: XR HAND/WRIST, RIGHT CLINICAL INFORMATION: Fall. Fracture? COMPARISON: August 07, 2021. TECHNIQUE: PA, lateral, and oblique views of the right hand and wrist. FINDINGS: There is a cortical disruption through the distal metaphysis of the radius and ulna resulting in dorsal displacement and a 2 cm overriding of the fragments. The metacarpal bones are intact. The phalanges of the digits are intact. XR/XR hand wrist RT IMPRESSION: Acute dorsally displaced and overlapping fractures distal radius and ulna. Electronically signed by: Steven Coreas MD 12/23/2024 03:46 PM EST
--- NOTE | ~2024-12-23 | CT_ITS ---
EXAMINATION: CT HEAD WITHOUT CONTRAST CLINICAL INFORMATION: Fall with head strike. COMPARISON: 05/10/2024, 02/29/2024. TECHNIQUE: Contiguous axial imaging was performed from the skull base to vertex without intravenous administration of contrast. This CT examination was performed using dose optimization techniques as appropriate, variously including the following: *Automated exposure control *Adjustment of mA and/or kV according to patient size (this includes techniques or standardized protocols for targeted exams where dose is matched to indication/reason for exam; i.e. extremities or head) *Use of iterative reconstruction technique FINDINGS: There is no evidence of intracranial hemorrhage or extra-axial fluid collection. There is no mass effect, or edema. No CT evidence of acute territorial infarct. Ventricles, sulci, and cisterns are normal in size and configuration for patient age. No hydrocephalus. No midline shift. Negative hyperdense MCA sign. Negative insular ribbon sign. No significant white matter abnormality. Normal pituitary. Globes and orbital contents image normally. No extracranial soft tissue abnormalities. The paranasal sinuses, mastoid air cells, and tympanic cavities are normally aerated. No suspicious bony abnormalities. There are no acute fractures evident. CT/CT head/brain wo IV con IMPRESSION: No acute intracranial abnormalities. No fractures. Electronically signed by: Mathieu Lepe MD 12/23/2024 04:51 PM [facility]
--- NOTE | ~2024-12-23 | XR_ITS ---
EXAMINATION: XR KNEE, RIGHT CLINICAL INFORMATION: Fall COMPARISON: None available. TECHNIQUE: Four views of the right knee. FINDINGS: No acute cortical disruption or malalignment. No suprapatellar bursa joint effusion. No lytic or blastic lesions. Limited frontal view. XR/XR knee RT 4V IMPRESSION: No acute fracture or dislocation. Electronically signed by: Steven Coreas MD 12/23/2024 03:41 PM EST
--- NOTE | ~2024-12-23 | CT_ITS ---
EXAMINATION: CT CERVICAL SPINE WITHOUT CONTRAST CLINICAL INFORMATION: Fall, neck pain COMPARISON: 02/09/2021. TECHNIQUE: Spiral CT imaging of the cervical spine performed in axial plane without contrast. Multiplanar reformatted images were constructed from the axial data set. This CT examination was performed using dose optimization techniques as appropriate, variously including the following: *Automated exposure control *Adjustment of mA and/or kV according to patient size (this includes techniques or standardized protocols for targeted exams where dose is matched to indication/reason for exam; i.e. extremities or head) *Use of iterative reconstruction technique FINDINGS: CORONAL ALIGNMENT: -Normal SAGITTAL ALIGNMENT: -Straightening of the lordosis. No subluxation. C1-C2 AND CRANIOCERVICAL JUNCTION: -Intact and normally aligned. VERTEBRAL BODIES AND FACETS: -There is no fracture, compression deformity, traumatic subluxation, or suspicious bone lesion. -There is normal facet alignment bilaterally. DISCS: -Preserved. PREVERTEBRAL AND PARAVERTEBRAL SOFT TISSUES: -No pre or paravertebral soft tissue abnormalities. -The right thyroid is diminutive or possibly absent. LUNG APICES: -Minimal apical scarring right greater than left. Lung apices otherwise clear. CT/CT cervical spine wo IV con IMPRESSION: 1. No CT evidence of acute cervical spine fracture or injury. Electronically signed by: Mathieu Lepe MD 12/23/2024 04:54 PM [facility]
--- NOTE | ~2024-12-23 | XR_ITS ---
EXAMINATION: XR SHOULDER, RIGHT CLINICAL INFORMATION: Fall COMPARISON: February 11, 2023. TECHNIQUE: AP external rotation, Grashey, scapular Y, and axillary views of the right shoulder. FINDINGS: No acute cortical disruption or malalignment. Vascular clips in the right axillary region. No lytic or blastic lesions. XR/XR shoulder RT min 2V IMPRESSION: No acute fracture or dislocation. Electronically signed by: Steven Coreas MD 12/23/2024 03:40 PM [facility]
[2024-12-23 14:50] VITALS: BP 112/56; PULSE 90; O2SAT 100
[2024-12-23 14:53] VITALS: BP 91/48; PULSE 92; RESP 20; O2SAT 99; BMI 25.4
--- OUTSIDE RECORDS SUMMARY | 2024-12-23 15:06 | XMS_ITS | Encounter Summary ---
Author Organization [employer] Address [address] [place] [address] Care Team Providers Care Sole Molder Name Role Phone Umm Coley MD Primary Care Provider + Reason for Visit * Reason Onset Date Comments Appointment Request 12/22/2024 Encounter Details Date Type Department Care Team ([facility] st Contact Info) Description 12/22/2024 Telephone [facility] MEDICINE [address], [place] [phone] Umm Coley MD [address] [place], [place] [phone] Appointment Request Social History Tobacco Use Types Packs/Day Years [...] Telephone Encounter - Gisela Reynoso RN - 12/23/2024 10:27 AM EST TC returned to patient [phone] in regards to below message. Patient reports feeling weakness, fatigue, dizziness and having a white tongue x1 week. Patient reports she has NOT tried any medications. Patient denies having a headache, fever or sore throat. Patient reports it feels like I burned my tongue . Patient denies burning tongue or consuming food that was too hot. Patient reports whiteness does not resolve with mouth washing or brushing. Patient is unwilling to see any provider except PCP. Patient scheduled for appointment on 12/27/24 with PCP at 1pm. Patient agreed to appointmentdate and time. Patient to f/u PRN. * Telephone Encounter - Rossana Lawrence - 12/23/2024 8:12 AM EST Tc from pt returning call. Maori * Telephone Encounter - Gisela Reynoso RN - 12/22/2024 8:36 AM EST TC placed to patient [phone] in regards to below message. Patient did not answer, RN left VM requesting CB to red team nurses. Patient to f/u PRN. * Telephone Encounter - Ronny Andresnandez - 12/22/2024 8:14 AM EST Tc from pt requesting to get Apt with PCP due to feeling Weak Around her whole body. Pt would like to be added to the recall list if nothing is available to be scheduled. Contact pt at [phone] documented in this encounter Plan of Treatment Upcoming Encounters Date Type Department Care Team (Late st Contact Info) Description 12/27/2024 1:00 PM EST Office Visit [facility] MEDICINE [address] [place] [address] Umm Coley MD [address] [place] [address] 03/08/2025 10:00 AM EDT Office Visit [facility] ADULT DENTAL [address] [place] [address] Elzbieta, Mariangel [address] [place] [address] documented as of this encounter Visit Diagnoses Not on filedocumented in this encounter Additional Health Concerns Assessment Noted Time PHQ-9 Depression Total Score: 10 024 9:17 AM EDT documented as of this encounter Care Teams Sole Molder Relationship Specialty Start Date End Date Umm Coley MD [address] [place] [address] PCP - General Family Medicine 10/31/16 [facility] 11/14/24 documented as of this encounter
--- OUTSIDE RECORDS SUMMARY | 2024-12-23 15:06 | XMS_ITS | Encounter Summary ---
Author Organization [employer] Address [address] [facility] [address] [place] [address] Care Team Providers Care Set Up Mechanic Automatic Line Name Role Phone Umm Coley MD Primary Care Provider + Reason for Visit * Reason Onset Date Comments appt 01/08/2024 Encounter Details Date Type Department Care Team ([facility] st Contact Info) Description 01/08/2024 Telephone [facility] ADULT DENTAL [address] [place], [place] [phone] Homer Strong, DMD [address] [place] [address] appt Social History Tobacco Use Types Packs/Day [...] Description 12/27/2024 1:00 PM EST Office Visit [facility] MEDICINE [address] [place] [address] Umm Coley MD [address] [place] [address] 03/08/2025 10:00 AM EDT Office Visit [facility] ADULT DENTAL [address] [place] [address] Mariangel Ruff [address] [place] [address] documented as of this encounter Visit Diagnoses Not on filedocumented in this encounter Additional Health Concerns Assessment Noted Time PHQ-9 Depression Total Score: 21 024 11:31 AM EST documented as of this encounter Care Teams Set Up Mechanic Automatic Line Relationship Specialty Start Date End Date Umm Coley MD [address] [place] [address] PCP - General Family Medicine 10/31/16 Eva Nunez Physical Director 04/05/24 07/06/24 [facility] 05/11/24 11/17/24 [facility] 11/14/24 documented as of this encounter
--- OUTSIDE RECORDS SUMMARY | 2024-12-23 15:06 | XMS_ITS | Encounter Summary ---
Author Organization [employer] Address [address] [facility] [address] [place] [address] Care Team Providers Care Business Loan Processor Name Role Phone Umm Coley MD Primary Care Provider + Reason for Visit * Reason Onset Date Comments VNA services 12/08/2024 Encounter Details Date Type Department Care Team ([facility] st Contact Info) Description 12/08/2024 Telephone [facility] MEDICINE [address] [place], [place] [phone] Gisela Reynoso, BEBA [address] [place], [place] [phone] VNA services Social History Tobacco Use Types Packs/Day Years [...] Telephone Encounter - Gisela Reynoso RN - 12/09/2024 12:13 PM EST Patient will have [facility] visit tomorrow with [facility]. * Telephone Encounter - Gisela Reynoso RN - 12/08/2024 12:49 PM EST Patient had an appointment with PCP today and informed PCP that she was discharged from VNA services (reasoning is unclear-appears to be r/t a dispute). Patient reports her daughter has been administering her medications which are located in a lock box (daughter has code) however the medications were only pre- filled until TODAY. Patient reported to PCP, her daughter is uncomfortable filling the lock box but is comfortable opening the lock box and giving the patient her medications. PCP is inquiring if we can fill the patients lock box at [facility] (she uses [facility] not [facility] pharmacy) to bridge the gap until patient can become established with a new VNA. PCP reports she willing to pre-fill medbox however wants to ensure it is acceptable legally. RN spoke to Sana with PCP, who informed it is acceptable for medications to be placed in lock boxby [facility] however the visit should be billed as a RN visit. PCP reports, she will fill the patients medbox tomorrow at 1pm d/t having multiple medications/prescribers. PCP advised patient to bring lockbox tomorrow at 1pm for medications to be pre- filled. PCP will call daughter (during appointment tomorrow) to obtain lock box code and will confirm the daughter will go unlock the lock box daily to administer the patients medication. RN called Alina to inquire on how to bill [place] as the patient will be seen by PCP. RN was advised PCP should document as a TC not as a RN visit. PCP would like to refer patient to a different VNA agency for DAILY medication management, suicide precautions, continued lock box for medications, pharmaco education, hospitalization prevention and VS's only PRN if dizzy/weak. RN will refer to [facility]. [facility] ([facility] liasion) will not be servicing [facility] today d/t the weather however advised RN to fax referral to [phone] (confirmation page received). [facility] will notify office of referral urgency. documented in this encounter Plan of Treatment Upcoming Encounters Date Type Department Care Team (Late st Contact Info) Description 12/27/2024 1:00 PM EST Office Visit [facility] MEDICINE [address] [place] [address] Umm Coley MD [address] [place] [address] 03/08/2025 10:00 AM EDT Office Visit [facility] ADULT DENTAL [address] [place] [address] Elzbieta, Mariangel [address] [place] [address] documented as of this encounter Visit Diagnoses Not on filedocumented in this encounter Additional Health Concerns Assessment Noted Time PHQ-9 Depression Total Score: 10 024 9:17 AM EDT documented as of this encounter Care Teams Business Loan Processor Relationship Specialty Start Date End Date Umm Coley MD [address] [place] [id number] PCP - General Family Medicine 10/31/16 [facility] 11/14/24 documented as of this encounter
--- OUTSIDE RECORDS SUMMARY | 2024-12-23 15:06 | XMS_ITS | Encounter Summary ---
Author Organization [employer] Address [address] [facility] 7t [place] [address] Care Team Providers Care Stone Rigger Name Role Phone Umm Coley MD Primary Care Provider + Reason for Visit * Reason Onset Date Comments PCP Contact 12/08/2024 Medbox set up. Encounter Details Date Type Department Care Team ([facility] Contact Info) Description 12/13/2024 Telephone [facility] [address] [place], [place] [phone] Umm Coley MD [address] [place], [place] [phone] PCP Contact (Medbox set up.) Social History Tobacco Use Types Packs/Day Years [...] encounter Miscellaneous Notes * Telephone Encounter - Umm Coley MD - 12/13/2024 8:54 AM EST Patient came on Thursday12/09/24 with her PROCESS DEVELOPMENT ASSOCIATE and they brought the log med box from [facility]NA so that I can set up her medications on med boxes for patient to take over the weekend until she start with a new VNA service. Patient called her daughter and she gave me the combination for the Locked med box. Medication were reviewed reconciled, no amlodipine or Adderall were on the med boxes or bottles. She had several bottles of ibuprofen, naproxen and diclofenac as needed for pain . Re clonazepam, patient states she is taking it twice daily instead of twice daily as needed. I spent about 45 minutes with pharmaco education, discussing with patient and PROCESS DEVELOPMENT ASSOCIATE regarding the useand side effects of medications. Noted that patient is taking mirtazapine, trazodone, olanzapine and hydroxyzine all at night and she states that she takes them all as the VNA is putting them on the med box even though some of them are as needed like trazodone and mirtazapine. Patient states that she sometimes wakes up for other reasons like neighborhood noises or feeling sick from cough fever. I told her to address this issue with mental health provider, I will reach out to counselor for this polypharmacy I gave patient's PROCESS DEVELOPMENT ASSOCIATE the med box for that day and the remaining of the pillboxes were pulled into the lock box again, her daughter has the black box combination to open it up. documented in this encounter Plan of Treatment Upcoming Encounters Date Type Department Care Team (Late st Contact Info) Description 12/27/2024 1:00 PM EST Office Visit [facility] [address] [place] [address] Umm Coley MD [address] [place] [address] 03/08/2025 10:00 AM EDT Office Visit [facility] ADULT DENTAL [address] [place], [place] [phone] ElzbietaMariangel [address] [place], [place] [phone] documented as of this encounter Visit Diagnoses Not on filedocumented in this encounter Additional Health Concerns Assessment Noted Time PHQ-9 Depression Total Score: 10 024 9:17 AM EDT documented as of this encounter Care Teams Stone Rigger Relationship Specialty Start Date End Date Umm Coley MD [address] [place] [phone] PCP - General Family Medicine 10/31/16 [facility] 11/14/24 documented as of this encounter
--- OUTSIDE RECORDS SUMMARY | 2024-12-23 15:06 | XMS_ITS | Encounter Summary ---
Author Organization [employer] Address [address] [facility] 7t [place] [address] Care Team Providers Care Field Control Inspector Name Role Phone Umm Coley MD Primary Care Provider + Reason for Visit * Reason Onset Date Comments FYI. 12/08/2024 Encounter Details Date Type Department Care Team ([facility] st Contact Info) Description 12/08/2024 Telephone [facility] [address] [place], [place] [phone] Umm Coley MD [address] [place], [place] [phone] FYI. Social History Tobacco Use Types Packs/Day Years [...] Encounter - Gisela Reynoso RN - 12/08/2024 11:08 AM EST TC returned to [facility] [phone] in regards to below message. Tyrel did not answer, RN left requesting CB to red team nurses. Tyrel to f/u PRN. * Telephone Encounter - Sophia French - 12/08/2024 10:15 AM EST Tc from Tyrel with [facility] wanting to inform pt is getting discharged from their [facility] Services as of 12/08/24. Tyrel stated pt is declining any services with [facility]. Therefore, pt's daughter is taking over medication management as of 12/08/24. Please contact Tyrel with any further questions at [phone]. documented in this encounter Plan of Treatment Upcoming Encounters Date Type Department Care Team (Late st Contact Info) Description 12/27/2024 1:00 PM EST Office Visit [facility] MED[facility]INE [address] [place] [address] Umm Coley MD [address] [place] [address] 03/08/2025 10:00 AM EDT Office Visit [facility] ADULT DENTAL [address] [place] [address] Mariangel Ruff [address] [place] [address] documented as of this encounter Visit Diagnoses Not on filedocumented in this encounter Additional Health Concerns Assessment Noted Time PHQ-9 Depression Total Score: 10 024 9:17 AM EDT documented as of this encounter Care Teams Field Control Inspector Relationship Specialty Start Date End Date Umm Coley MD [address] [place] [address] PCP - General Family Medicine 10/31/16 [facility] 11/14/24 documented as of this encounter
--- OUTSIDE RECORDS SUMMARY | 2024-12-23 15:06 | XMS_ITS | Encounter Summary ---
Author Organization [employer] Address [address] [facility] 7t [place] [address] Care Team Providers Care Transfusion Nurse Name Role Phone Umm Coley MD Primary Care Provider + Reason for Visit * Reason Onset Date Comments Chart prep 12/07/2024 Encounter Details Date Type Department Care Team ([facility] st Contact Info) Description 12/07/2024 Telephone [facility] MED[facility]INE [address] [place], [place] [phone] Juana Connor MA Chart prep Social History Tobacco Use Types [...] Telephone Encounter - Juana Connor MA - 12/07/2024 11:41 AM EST Chart Prep Labs: done Images: done Vaccines due: yes Referrals: complete Screenings: mammogram Overdue care gaps: N/A documented in this encounter Plan of Treatment Upcoming Encounters Date Type Department Care Team (Late st Contact Info) Description 12/27/2024 1:00 PM EST Office Visit [facility] MED[facility]INE [address] [place] [address] Umm Coley MD [address] [place] [phone] 03/08/2025 10:00 AM EDT Office Visit [facility] ADULT DENTAL [address] [place] [address] Elzbieta, Mariangel [address] [place] [address] documented as of this encounter Visit Diagnoses Not on filedocumented in this encounter Additional Health Concerns Assessment Noted Time PHQ-9 Depression Total Score: 10 024 9:17 AM EDT documented as of this encounter Care Teams Transfusion Nurse Relationship Specialty Start Date End Date Umm Coley MD [address] [place] [phone] PCP - General Family Medicine 10/31/16 [facility] 11/14/24 documented as of this encounter
--- OUTSIDE RECORDS SUMMARY | 2024-12-23 15:06 | XMS_ITS | Encounter Summary ---
Author Organization [employer] Address [address] [facility] 7t [place] [address] Care Team Providers Care Marketing Services Manager Name Role Phone Umm Coley MD Primary Care Provider + Encounter Details Date Type Department Care Team (Latest Contact Info) Description 12/08/2024 Travel Social History Tobacco Use Types Packs/Day [...] Description 12/27/2024 1:00 PM EST Office Visit [facility] MEDICINE [address] [place] [address] Umm Coley MD 230 [place] [address] 03/08/2025 10:00 AM EDT Office Visit [facility] ADULT DENTAL [address] [place] [address] Mariangel Ruff [address] [place] [address] documented as of this encounter Visit Diagnoses Not on filedocumented in this encounter Additional Health Concerns Assessment Noted Time PHQ-9 Depression Total Score: 10 024 9:17 AM EDT documented as of this encounter Care Teams Marketing Services Manager Relationship Specialty Start Date End Date Umm Coley MD [address] [place] [phone] PCP - General Family Medicine 10/31/16 [facility] 11/14/24 documented as of this encounter
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
--- OUTSIDE RECORDS SUMMARY | 2024-12-23 15:06 | XMS_ITS | Encounter Summary ---
Author Organization [employer] Address [address] [facility] 7t [place] [address] Care Team Providers Care Property Custodian Name Role Phone Umm Coley MD Primary Care Provider + Reason for Visit * Reason Comments Medication Problem Encounter Details Date Type Department Care Team ([facility] st Contact Info) Description 12/08/2024 12:15 PM EST Office Visit [facility] MEDICINE [address] [place], [place] [phone] Umm Coley MD [address] [place], [place] [phone] Recurrent falls (Primary Dx); Neuropathy of both feet; Generalized anxiety disorder Social History Tobacco Use Types Packs/Day Years [...] Sign Reading Time Taken Comments Blood Pressure 113/65 12/08/2024 11:19 AM EST Pulse 91 12/08/2024 11:19 AM EST Temperature 35.2 ??C (95.3 ??F) 12/08/2024 11:[address] Respiratory Rate - - Oxygen Saturation 99% 12/08/2024 11:19 AM EST Inhaled Oxygen Concentration - - Weight 51.4 kg (113 lb 4 oz) 12/08/2024 11:19 AM EST Height 157.5 cm (5' 2 ) 12/08/2024 11:19 AM EST Body Mass Index 20.71 12/08/2024 11:19 AM EST documented in this encounter Progress Notes * Umm Coley MD - 12/08/2024 12:15 PM EST SUBJECTIVE: Diana Myles is a 59 y.o. year old female who presents for sick visit . Denies recent illness, injury, or hospitalization. Pt comes in for a sick visit, with concerns about medication management. She tells me that the nurse that she had followed to [facility] wanted her to sign some [facility] documents (reportedly to provide services?) that she didn't feel comfortable signing and didn't offer further explanation so the nurse walked out of the house and she was discharged from the [facility]. She's concerned that she only has med boxes arranged with medications until tonight, the rest of med boxes are in the locked box (which she doesn't have access to, her daughter has the code but doesn't feel comfortable organizing the meds for the week) and her daughter only comes at night to check on her. She doesn't feel comfortable taking meds by herself and her ELECTRONICS SYSTEM MECHANIC doesn't know how to put them on medboxes properly. Patient feels frustrated that she moved from the other VNA company and would like to have a VNA that is able to organize her meds. She denies HI/SI, see psychiatry every 3mo and counselor every month. Acute Concerns: Social History Social History Narrative Not on [...] Eyes: Negative for pain and discharge. Respiratory: Negative for cough, chest tightness and shortness of breath. Cardiovascular: Negative for chest pain, palpitations and leg swelling. Gastrointestinal: Negative for abdominal pain, blood in stool, constipation, diarrhea and nausea. Endocrine: Negative for polydipsia and polyuria. Genitourinary: Negative for dysuria, frequency, genital sores, pelvic pain and vaginal discharge. Musculoskeletal: Positive for back pain. Negative for neck pain. Skin: Negative for rash. Allergic/Immunologic: Negative for environmental allergies. Neurological: Negative for dizziness, seizures, weakness, light-headedness and headaches. Hematological: Negative for adenopathy. Psychiatric/Behavioral: Positive for dysphoric mood. Negative for agitation, behavioral problems, self-injury and suicidal ideas. The patient is nervous/anxious. OBJECTIVE: Vitals: 12/08/24 1119 BP: 113/65 Pulse: 91 Temp: 95.3 ??F (35.2 ??C) SpO2: 99% Physical Exam Constitutional: Appearance: Normal appearance. HENT: [...] motion. No tenderness. Lumbar back: Tenderness present. Right knee: Tenderness present. Left knee: Tenderness present. Skin: General: Skin is warm. Neurological: General: No focal deficit present. Mental Status: She is alert and oriented to person, place, and time. Psychiatric: Mood and Affect: Mood is anxious and depressed. Problem List Items Addressed This Visit Recurrent falls - Primary Pt with multiple medication problems, OA and recurrent falls, needs to continue with home care to prevent accidents at home. Meds to be administered by VNA on a lock box due to risk of OD, worsening side effects, and need for pharmical education. Given that the pt does not have VNA at this time and will take 1-3 days to set up the service again, I agreed to organize pills and med boxes for 1 week until VNA intake. Pt will bring lock box with medications tomorrow at 1 pm and will call her daughter to ask about the lock code so that we can organize the medications. Pt and ELECTRONICS SYSTEM MECHANIC agreed with the plan of care. POC discussed with team nurse and dairy farm supervisor. Neuropathy of both feet Generalized anxiety disorder Follow Up: Current Outpatient Medications on File [...] & Plan Note - Adriana Mcgraw - 12/08/2024 12:25 PM ESTAssociated Problem(s): Recurrent falls Pt with multiple medication problems, OA and recurrent falls, needs to continue with home care to prevent accidents at home. Meds to be administered by VNA on a lock box due to risk of OD, worsening side effects, and need for pharmical education. Given that the pt does not have VNA at this time and will take 1-3 days to set up the service again, I agreed to organize pills and med boxes for 1 week until VNA intake. Pt will bring lock box with medications tomorrow at 1 pm and will call her daughter to ask about the lock code so that we can organize the medications. Pt and ELECTRONICS SYSTEM MECHANIC agreed with the plan of care. POC discussed with team nurse and dairy farm supervisor. * Addendum Note - Umm Coley MD - 12/08/2024 12:15 PM ESTAddended by: UMM COLEY on: 12/12/2024 12:28 PM Modules accepted: Level of Service documented in this encounter Plan of Treatment Upcoming Encounters Date Type Department Care Team (Late st Contact Info) Description 12/27/2024 1:00 PM EST Office Visit [facility] MEDICINE [address] [place] [address] Umm Coley MD [address] [place] [address] 03/08/2025 10:00 AM EDT Office Visit [facility] ADULT DENTAL [address] [place] [address] Elzbieta Mariangel [address] [place] [address] documented as of this encounter Visit Diagnoses Diagnosis Recurrent falls- Primary Neuropathy of both feet Generalized anxiety disorder documented in this encounter Additional Health Concerns Assessment Noted Time PHQ-9 Depression Total Score: 10 06/10/ 024 9:17 AM EDT documented as of this encounter Care Teams Property Custodian Relationship Specialty Start Date End Date Umm Coley MD [address] [place] [phone] PCP - General Family Medicine 10/31/16 [facility] 11/14/24 documented as of this encounter
--- OUTSIDE RECORDS SUMMARY | 2024-12-23 15:06 | XMS_ITS | Encounter Summary ---
Author Organization [employer] Address [address] [facility] 7t [place] [address] Care Team Providers Care Procurement Analyst Name Role Phone Umm Coley MD Primary Care Provider + Encounter Details Date Type Department Care Team (Latest Contact Info) Description 12/09/2024 Travel Social History Tobacco Use Types Packs/Day [...] Description 12/27/2024 1:00 PM EST Office Visit [facility] MEDICINE [address] [place] [address] Umm Coley MD [address] [place] [address] 03/08/2025 10:00 AM EDT Office Visit [facility] ADULT DENTAL [address] [place] [address] Mariangel Ruff [address] [place] [address] documented as of this encounter Visit Diagnoses Not on filedocumented in this encounter Additional Health Concerns Assessment Noted Time PHQ-9 Depression Total Score: 10 024 9:17 AM EDT documented as of this encounter Care Teams Procurement Analyst Relationship Specialty Start Date End Date Umm Coley MD [address] [place] [id number] PCP - General Family Medicine 10/31/16 [facility] 11/14/24 documented as of this encounter
--- OUTSIDE RECORDS SUMMARY | 2024-12-23 15:07 | XMS_ITS | Encounter Summary ---
Author Organization [facility] Address [address] [place] [address] 7t [place] [address] Care Team Providers Care Hospital Pharmacy Director Name Role Phone Umm Coley MD Primary Care Provider + Encounter Details Date Type Department Care Team (Latest Contact Info) Description 11/23/2020 Abstract [facility] CONVERSIONS Dental, Provider, DDS Social History [...] Description 12/27/2024 1:00 PM EST Office Visit [facility] MEDICINE [address] [place] [address] Umm Coley MD [address] [place] [address] 03/08/2025 10:00 AM EDT Office Visit [facility] ADULT DENTAL [address] [place] [address] Mariangel Ruff [address] [place] [address] documented as of this encounter Visit Diagnoses Not on filedocumented in this encounter Care Teams Hospital Pharmacy Director Relationship Specialty Start Date End Date Umm Coley MD 230 [place] [address] PCP - General Family Medicine 10/31/16 Eva Nunez Clinical Practitioner 04/05/24 07/06/24 [facility] 05/11/24 11/17/24 [facility] 11/14/24 documented as of this encounter
--- OUTSIDE RECORDS SUMMARY | 2024-12-23 15:07 | XMS_ITS | Encounter Summary ---
Author Organization [employer] Address [address] [facility] 7t [place] [address] Care Team Providers Care Sketcher Name Role Phone Umm Coley MD Primary Care Provider + Reason for Visit * Reason Comments Med Change Request Encounter Details Date Type Department Care Team ([facility] Contact Info) Description 03/20/2023 Refill [facility] ADULT DENTAL [address] [place] [address] Johnny Gonzalez DMD [address] [place] [address] Social History Tobacco Use Types Packs/Day Years [...] Description 12/27/2024 1:00 PM EST Office Visit [facility] MEDICINE [address] [place] [address] Umm Coley MD [address] [place] [address] 03/08/2025 10:00 AM EDT Office Visit [facility] ADULT DENTAL [address] [place], [place] [phone] Trino Ruffaris [address] [place] [address] documented as of this encounter Visit Diagnoses Not on filedocumented in this encounter Care Teams Sketcher Relationship Specialty Start Date End Date Umm Coley MD [address] [place] [id number] PCP - General Family Medicine 10/31/16 Eva Nunez Sales Clerk Supervisor 04/05/24 07/06/24 [facility] 05/11/24 11/17/24 [facility] 11/14/24 documented as of this encounter
--- OUTSIDE RECORDS SUMMARY | 2024-12-23 15:07 | XMS_ITS | Encounter Summary ---
Author Organization [facility] Address [address] [place] [address] 7t [place] [address] Care Team Providers Care Music Rehabilitation Therapist Name Role Phone Umm Coley MD Primary Care Provider + Reason for Visit * Reason Comments Med Refill Encounter Details Date Type Department Care Team (Late st Contact Info) Description 06/10/2023 Refill [facility] MEDICINE [address] [place], [place] [phone] Yenny Morris MD [address] [place], [place] [phone] Rash Social History Tobacco Use Types Packs/Day [...] Description 12/27/2024 1:00 PM EST Office Visit [facility] MEDICINE [address] [place], [place] [phone] Umm Coley MD [address] [place], [place] [phone] 03/08/2025 10:00 AM EDT Office Visit [facility] ADULT DENTAL [address] [place], [place] [phone] Mariangel Ruff [address] [place], [place] [phone] documented as of this encounter Visit Diagnoses Diagnosis Rash Rash and other nonspecific skin eruption documented in this encounter Additional Health Concerns Assessment Noted Time PHQ-9 Depression Total Score: 12 023 1:58 PM EDT documented as of this encounter Care Teams Music Rehabilitation Therapist Relationship Specialty Start Date End Date Umm Coley MD [address] [place] [address] PCP - General Family Medicine 10/31/16 Eva Nunez Mammalogy Teacher 04/05/24 07/06/24 [facility] 05/11/24 11/17/24 [facility] 11/14/24 documented as of this encounter
--- OUTSIDE RECORDS SUMMARY | 2024-12-23 15:07 | XMS_ITS | Encounter Summary ---
Author Organization [employer] [facility] Address [address] [place] [address] 7t [place] [address] Care Team Providers Care Network Support Analyst Name Role Phone Umm Coley MD Primary Care Provider + Encounter Details Date Type Department Care Team (Late Contact Info) Description 03/05/2023 Orders Only [facility] MEDICINE [address] [place] [address] [phone] Umm Coley MD [address] [place] [address] [phone] Social History Tobacco Use Types Packs/Day Years [...] Department Care Team (Late Contact Info) Description 12/27/2024 1:00 PM EST Office Visit [facility] MEDICINE [address] [place] [address] [phone] Umm Coley MD [address] [place] [address] [phone] 03/08/2025 10:00 AM EDT Office Visit [facility] ADULT DENTAL [address] [place], [place] [phone] Mariangel Ruff [address] [place], [place] [phone] documented as of this encounter Visit Diagnoses Not on filedocumented in this encounter Care Teams Network Support Analyst Relationship Specialty Start Date End Date Umm Coley MD 230 [place], [place] [phone] PCP - General Family Medicine 10/31/16 Eva Nunez Timing Machine Operator 04/05/24 07/06/24 [facility] 05/11/24 11/17/24 [facility] 11/14/24 documented as of this encounter
--- OUTSIDE RECORDS SUMMARY | 2024-12-23 15:07 | XMS_ITS | Encounter Summary ---
Author Organization [facility] Address [address] [place] [address] 7t [place] [address] Care Team Providers Care Cafe Or Restaurant Manager Name Role Phone Umm Coley MD Primary Care Provider + Reason for Visit * Reason Comments Med Refill Encounter Details Date Type Department Care Team (Late st Contact Info) Description 08/01/2023 Refill [facility] MEDICINE [address] [place], [place] [phone] Umm Coley MD [address] [place], [place] [phone] Social History Tobacco Use Types Packs/Day Years [...] Description 12/27/2024 1:00 PM EST Office Visit [facility] MEDICINE [address] [place], [place] [phone] Umm Coley MD [address] [place], [place] [phone] 03/08/2025 10:00 AM EDT Office Visit [facility] ADULT DENTAL [address] [place], [place] [phone] Mariangel Ruff [address] [place], [place] [phone] documented as of this encounter Visit Diagnoses Not on filedocumented in this encounter Additional Health Concerns Assessment Noted Time PHQ-9 Depression Total Score: 12 023 1:58 PM EDT documented as of this encounter Care Teams Cafe Or Restaurant Manager Relationship Specialty Start Date End Date Umm Coley MD [address] [place] [address] PCP - General Family Medicine 10/31/16 Eva Nunez Dielectric Machine Operator 04/05/24 07/06/24 [facility] 05/11/24 11/17/24 [facility] 11/14/24 documented as of this encounter
--- OUTSIDE RECORDS SUMMARY | 2024-12-23 15:07 | XMS_ITS | Encounter Summary ---
Author Organization [employer] Address [address] [facility] 7t [place] [address] Care Team Providers Care Pvc Loader Name Role Phone Umm Coley MD Primary Care Provider + Reason for Visit * Reason Onset Date Comments pre med prior to dental treatment 08/23/2024 Encounter Details Date Type Department Care Team ([facility] st Contact Info) Description 08/23/2024 Telephone [facility] ADULT DENTAL [address] [place], [place] [phone] Johnny Gonzalez, DMD [address] [place] [address] pre med prior to dental treatment Social [...] I also spoke with Nina in the director of front office with a run through of what was happening with the patient and she stated she would also send something to provider for clarificationDR documented in this encounter Plan of Treatment Upcoming Encounters Date Type Department Care Team (Late st Contact Info) Description 12/27/2024 1:00 PM EST Office Visit [facility] MEDICINE [address] [place] [address] Umm Coley MD [address] [place] [address] 03/08/2025 10:00 AM EDT Office Visit [facility] ADULT DENTAL [address] [place] [address] Mariangel Ruff [address] [place] [address] documented as of this encounter Visit Diagnoses Not on filedocumented in this encounter Additional Health Concerns Assessment Noted Time PHQ-9 Depression Total Score: 10 024 9:17 AM EDT documented as of this encounter Care Teams Pvc Loader Relationship Specialty Start Date End Date Umm Coley MD [address] [place] [address] PCP - General Family Medicine 10/31/16 [facility] 05/11/24 11/17/24 [facility] 11/14/24 documented as of this encounter
--- OUTSIDE RECORDS SUMMARY | 2024-12-23 15:07 | XMS_ITS | Encounter Summary ---
Author Organization [facility] Address [address] [place] [address] 7t [place] [address] Care Team Providers Care Counseling Services Director Name Role Phone Umm Coley MD Primary Care Provider + Encounter Details Date Type Department Care Team (Latest Contact Info) Description 11/14/2019 Abstract [facility] CONVERSIONS Dental, Provider, DDS Social [...] Description 12/27/2024 1:00 PM EST Office Visit [facility] MEDICINE [address] [place] [address] Umm Coley MD [address] [place] [address] 03/08/2025 10:00 AM EDT Office Visit [facility] ADULT DENTAL [address] [place] [address] Mariangel Ruff [address] [place] [address] documented as of this encounter Visit Diagnoses Not on filedocumented in this encounter Care Teams Counseling Services Director Relationship Specialty Start Date End Date Umm Coley MD [address] [place] [address] PCP - General Family Medicine 10/31/16 Eva Nunez Transplanter Orchid 04/05/24 07/06/24 [facility] 05/11/24 11/17/24 [facility] 11/14/24 documented as of this encounter
--- OUTSIDE RECORDS SUMMARY | 2024-12-23 15:07 | XMS_ITS | Encounter Summary ---
Author Organization [employer] Address [address] [facility] 7t [place] [address] Care Team Providers Care Capacity Planner Name Role Phone Umm Coley MD Primary Care Provider + Reason for Visit * Reason Onset Date Comments Appointment 06/15/2023 Encounter Details Date Type Department Care Team ([facility] st Contact Info) Description 06/15/2023 Telephone [facility] ADULT DENTAL [address] [facility] [place] [address] Johnny Gonzalez, DMD [address] [place] [address] Appointment Social History Tobacco Use Types Packs/Day [...] like to be scheduled to be seen. DR documented in this encounter Plan of Treatment Upcoming Encounters Date Type Department Care Team (Late st Contact Info) Description 12/27/2024 1:00 PM EST Office Visit [facility] MEDICINE [address] [place] [address] Umm Coley MD [address] [place] [address] 03/08/2025 10:00 AM EDT Office Visit [facility] ADULT DENTAL [address] [place] [address] Elzbieta, Mariangel [address] [place] [address] documented as of this encounter Visit Diagnoses Not on filedocumented in this encounter Additional Health Concerns Assessment Noted Time PHQ-9 Depression Total Score: 12 023 1:58 PM EDT documented as of this encounter Care Teams Capacity Planner Relationship Specialty Start Date End Date Umm Coley MD [address] [place] [address] PCP - General Family Medicine 10/31/16 Eva Nunez Field Support Rep 04/05/24 07/06/24 [facility] 05/11/24 11/17/24 [facility] 11/14/24 documented as of this encounter
--- OUTSIDE RECORDS SUMMARY | 2024-12-23 15:07 | XMS_ITS | Encounter Summary ---
Author Organization [employer] Address [address] [facility] 7t [place] [address] Care Team Providers Care Motor Runner Name Role Phone Umm Coley MD Primary Care Provider + Reason for Visit * Reason Onset Date Comments Appointment 02/24/2023 Encounter Details Date Type Department Care Team ([facility] st Contact Info) Description 02/24/2023 Telephone [facility] ADULT DENTAL [address] [place] [address] Johnny Gonzalez, DMD [address] [place] [address] Appointment Social History Tobacco Use Types Packs/Day [...] Description 12/27/2024 1:00 PM EST Office Visit [facility] MEDICINE [address] [place] [address] Umm Coley MD [address] [place] [address] 03/08/2025 10:00 AM EDT Office Visit [facility] ADULT DENTAL [address] [place] [address] Trino Ruffaris [address] [place] [address] documented as of this encounter Visit Diagnoses Not on filedocumented in this encounter Care Teams Motor Runner Relationship Specialty Start Date End Date Umm Coley MD [address] [place] [address] PCP - General Family Medicine 10/31/16 Eva Nunez Senior Graduate Advisor 04/05/24 07/06/24 [facility] 05/11/24 11/17/24 [facility] 11/14/24 documented as of this encounter
--- OUTSIDE RECORDS SUMMARY | 2024-12-23 15:07 | XMS_ITS | Encounter Summary ---
Author Organization [employer] Address [address] [facility] 7t [place] [address] Care Team Providers Care Bead Forming Machine Operator Name Role Phone Umm Coley MD Primary Care Provider + Encounter Details Date Type Department Care Team (Late st Contact Info) Description 11/29/2024 Orders Only [facility] MEDICINE [address] [place], [place] [phone] Umm Coley MD [address] [place], [place] [phone] Social History Tobacco Use Types Packs/Day Years [...] Description 12/27/2024 1:00 PM EST Office Visit [facility] MEDICINE [address] [place] [address] Umm Coley MD [address] [place] [address] 03/08/2025 10:00 AM EDT Office Visit [facility] ADULT DENTAL [address] [place] [address] Mariangel Ruff [address] [place] [address] documented as of this encounter Procedures Procedure Name Priority Date/Time Associated Diagnosis Comments XR CHEST 2 VIEWS Routine 12/13/2024 9:33 AM EST MR KNEE WO CONTRAST LEFT Routine 12/06/2024 6:06 PM EST BI MAMMOGRAM SCREENING TOMOSYNTHESIS BILATERAL Routine 11/29/2024 8:45 AM EST documented in this encounter Results * XR Chest 2 Views (12/13/2024 9:33 AM EST) Anatomical Region Laterality Modality Chest Radiographic Kyleigh ging 12/13/2024 9:33 AM EST Narrative 12/13/2024 10:06 AM EST ? [facility] ?[address] ?[place] [address] ?XRay Report ? Signed ? Patient: Myles,Diana L ?MR#: [id number] ?? 8 ? : 1965 ?Acct:[id number] ? Age/Sex: 59 / F ?ADM Date: 12/13/24 ? Loc: HO.XRAY ? Attending Dr: Anthony Curtis MD ? Ordering Physician: Anthony Curtis MD ?? Date of Service: 12/13/24 ?? Procedure(s): XR chest 2V ?? Accession Number(s): [id number] ? cc: Umm Coley MD; Anthony Curtis MD ? EXAMINATION: ?? XR CHEST ? CLINICAL INFORMATION: ?? J45.909 - Unspecified asthma, uncomplicated ? COMPARISON: ?? 02/29/2024. ? TECHNIQUE: ?? 2 views of the chest were obtained. ? FINDINGS: ?? The cardiac, hilar, and mediastinal contours are normal. ? The lungs are clear bilaterally. There is no pneumothorax or pleural ?? effusion. ? There is no focal osseous or soft tissue abnormality. Surgical clips ?? right breast and right axilla. ? XR/XR chest 2V ?? IMPRESSION: ?? No active pulmonary disease. ? Electronically signed by: ??Mathieu Lepe MD ??12/13/2024 10:04 AM EST RP ? Dictated By: ?Mathieu Lepe MD ? Signed By: ?<Electronically signed by Mathieu Lepe MD in OV> ?12/13/24 1004 ? DD/ 0933 ? TD/TT: 12/13/24 0948 ? Mule Rider: ? Procedure Note Adalgisa, Image - 12/13/[address] [address] XRay Report Signed Patient: Diana Myles R#: [id number] 8 : 1965Acct:[id number] Age/Sex: 59 / FADM Date: 12/13/24 Loc: MERVAT Attending Dr: Anthony Curtis MD Ordering Physician: Anthony Curtis MD Date of Service: 12/13/24 Procedure(s): XR chest 2V Accession Number(s): [id number] cc: Umm Coley MD; Anthony Curtis MD EXAMINATION: XR CHEST CLINICAL INFORMATION: J45.929 - Unspecified asthma, uncomplicated COMPARISON: 02/29/2024. TECHNIQUE: 2 views of the chest were obtained. FINDINGS: The cardiac, hilar, and mediastinal contours are normal. The lungs are clear bilaterally. There is no pneumothorax or pleural effusion. There is no focal osseous or soft tissue abnormality. Surgical clips right breast and right axilla. XR/XR chest 2V IMPRESSION: No active pulmonary disease. Electronically signed by: Mathieu Lepe MD 12/13/2024 10:04 AM EST Dictated By: Mathieu Lepe MD Signed By: <Electronically signed by Mathieu Lepe MD in OV> 12/13/24 1004 DD/ 0933 TD/TT: 12/13/24 0948 Mule Rider: [facility] External Provider IMG XR PROCEDURES Final Result * MR Knee w/o Contrast Left (12/06/2024 6:06 PM EST) Anatomical Region Laterality Modality Magnetic Resonan ce 12/06/2024 6:06 PM EST Narrative 12/08/2024 8:31 AM EST ? [facility] ?[address] ?[place] [address] ? Magnetic Resonance Report ? Signed ? Patient: Myles,Diana L ?MR#: [id number] ?? 8 ? : 1965 ?Acct:[id number] ? Age/Sex: 59 / F ?ADM Date: 02/04/25 ? Loc: HO.MRI ? Attending Dr: Denilson Forman PA-C ? Ordering Physician: Denilson Forman PA-C ?? Date of Service: 12/06/24 ?? Procedure(s): MR knee LT wo con ?? Accession Number(s): [id number] ? cc: Umm Coley MD; Denilson Forman PA-C ? EXAMINATION: ?? MR KNEE WITHOUT CONTRAST, LEFT ? CLINICAL INFORMATION: ?? Increased pain left knee x4 months, no discrete injury. ? COMPARISON: ?? No prior MRI. ?? Plain films dated 09/26/2024. ? TECHNIQUE: ?? MRI of the knee without contrast was performed using routine sequences ?? on a high-field scanner. ? FINDINGS: ? MENISCI: ? Medial Meniscus: There is linear increased intrasubstance signal ?? without definite extension to the joint surface. This likely represents ?? mild intrasubstance degeneration. There is no discrete tear. ? Lateral Meniscus: Intact and normal in signal. ? LIGAMENTS: ? Anterior Cruciate Ligament: Intact and normal in signal. ?? Posterior Cruciate Ligament: Intact and normal in signal. ? Medial Collateral: Intact and normal in signal. The medial ?? patellofemoral ligament is intact. ? Lateral Collateral Complex: The biceps femoris tendon, conjoined ?? tendon, fibular collateral ligament, and popliteus tendon are intact ?? and normal in signal. ? EXTENSOR MECHANISM: ?? Intact and normal in signal. ?? Patellar retinaculum are intact. ? BONE: ?? There is no subchondral bone plate edema or gross bone edema to suggest ?? contusion, fracture, or suspicious bone lesion. ? JOINTS: ?? Patellofemoral Compartment: There is a somewhat shallow trochlea. No ?? cartilaginous abnormalities or significant degenerative arthropathy. ?? Normal joint space. No abnormal patellar tilt. ? Medial Compartment: Joint space and cartilage is normal. ? Lateral Compartment: Joint space and cartilage is normal. ? JOINT FLUID AND BURSAE: ?? There is no joint effusion. No bursal abnormalities. ? OTHER: ?? -There is edema throughout the suprapatellar fat pad, suggestive of fat ?? pad impingement syndrome. ?? -Trace fluid in the medial popliteal fossa. ?? -Iliotibial band is normal. There is a small amount of edema medial to ?? the iliotibial band and interposed between lateral femoral condyle, for ?? which iliotibial friction syndrome cannot be excluded. ? MR/MR knee LT wo con ?? IMPRESSION: ?? 1. No internal derangement of the left knee. Menisci, cartilage, and ?? ligamentous structures are intact. ?? 2. Edema within the suprapatellar fat pad, which can be seen with fat ?? pad impingement syndromes. Correlate for anterior knee pain. ?? 3. Mild fatty edema medial to the iliotibial band, which can be seen ?? with iliotibial band friction syndrome. ? Electronically signed by: ??Mathieu Lepe MD ??12/08/2024 08:29 AM EST RP ? Dictated By: ?Mathieu Lepe MD ? Signed By: ?<Electronically signed by Mathieu Lepe MD in OV> ?12/08/24 0829 ? DD/ 1806 ? TD/TT: 12/06/24 1817 ? Mule Rider: ? Procedure Note Adalgisa, Image - 12/08/2024 [place] [address] Magnetic Resonance Report Signed Patient: Diana Myles LMR#: [id number] 8 : 1965Acct:[id number] Age/Sex: 59 / FADM Date: 12/06/24 Loc: HO.MRI Attending Dr: Denilson Forman PA-C Ordering Physician: Denilson Forman PA-C Date of Service: 12/06/24 Procedure(s): MR knee LT wo con Accession Number(s): [id number] cc: Umm Coley MD; Denilson Forman PA-C EXAMINATION: MR KNEE WITHOUT CONTRAST, LEFT CLINICAL INFORMATION: Increased pain left knee x4 months, no discrete injury. COMPARISON: No prior MRI. Plain films dated 09/26/2024. TECHNIQUE: MRI of the knee without contrast was performed using routine sequences on a high-field scanner. FINDINGS: MENISCI: Medial Meniscus: There is linear increased intrasubstance signal without definite extension to the joint surface. This likely represents mild intrasubstance degeneration. There is no discrete tear. Lateral Meniscus: Intact and normal in signal. LIGAMENTS: Anterior Cruciate Ligament: Intact and normal in signal. Posterior Cruciate Ligament: Intact and normal in signal. Medial Collateral: Intact and normal in signal. The medial patellofemoral ligament is intact. Lateral Collateral Complex: The biceps femoris tendon, conjoined tendon, fibular collateral ligament, and popliteus tendon are intact and normal in signal. EXTENSOR MECHANISM: Intact and normal in signal. Patellar retinaculum are intact. BONE: There is no subchondral bone plate edema or gross bone edema to suggest contusion, fracture, or suspicious bone lesion. JOINTS: Patellofemoral Compartment: There is a somewhat shallow trochlea. No cartilaginous abnormalities or significant degenerative arthropathy. Normal joint space. No abnormal patellar tilt. Medial Compartment: Joint space and cartilage is normal. Lateral Compartment: Joint space and cartilage is normal. JOINT FLUID AND BURSAE: There is no joint effusion. No bursal abnormalities. OTHER: -There is edema throughout the suprapatellar fat pad, suggestive of fat pad impingement syndrome. -Trace fluid in the medial popliteal fossa. -Iliotibial band is normal. There is a small amount of edema medial to the iliotibial band and interposed between lateral femoral condyle, for which iliotibial friction syndrome cannot be excluded. MR/MR knee LT wo con IMPRESSION: 1. No internal derangement of the left knee. Menisci, cartilage, and ligamentous structures are intact. 2. Edema within the suprapatellar fat pad, which can be seen with fat pad impingement syndromes. Correlate for anterior knee pain. 3. Mild fatty edema medial to the iliotibial band, which can be seen with iliotibial band friction syndrome. Electronically signed by: Mathieu Lepe MD 12/08/2024 08:29 AM EST Dictated By: Mathieu Lepe MD Signed By: <Electronically signed by Mathieu Lepe MD in OV> 12/08/24 0829 DD/ 1806 TD/TT: 12/06/24 1817 Mule Rider: [facility] External Provider IMG MRI PROCEDURES Final Result * BI Mammogram Screening Tomosynthesis Bilateral (11/29/2024 8:45 AM EST) Anatomical Region Laterality Modality Breast Bilateral Mammography 11/29/2024 8:45 AM EST Narrative 12/07/2024 3:35 PM EST ? [facility] ? [address] ?[place] [address] ? Mammography Report ? Signed ? Patient: Myles,Diana L ?MR#: [id number] ?? 8 ? : 1965 ?Acct:[id number] ? Age/Sex: 59 / F ?ADM Date: 11/29/24 ? Loc: HO.MAMMO ? Attending Dr: Umm Coley MD ? Ordering Physician: Umm Coley MD ?Results: 2Be ?? nign Findings ? Date of Service: 11/29/24 ?Follow Up: 1 Year From Orig ?? inal Mammogram ? Procedure(s): MM tomosynthesis screening BI ?? Accession Number(s): [id number] ? cc: Umm Coley MD ? EXAMINATION: ?? MM SCREENING DIGITAL BREAST TOMOSYNTHESIS, BILATERAL ? CLINICAL INFORMATION: ? Screening. Asymptomatic. ??Right breast cancer status post lumpectomy. ?? Family history of breast cancer including patient's sister. ? COMPARISON: ?? Mammography: Comparison is made with available priors ? TECHNIQUE: ?? Digital breast mammography with tomosynthesis is performed in both the ?? craniocaudal and mediolateral oblique views along with computer-aided ?? detection (CAD). ? FINDINGS: ?? The breasts are heterogeneously dense, which may obscure small masses ?? (ACR BI-RADS breast composition Category c). ?? Right lumpectomy changes are stable. ?? There are no significant masses, abnormal calcifications, or other ?? abnormalities. ? MM/MM tomosynthesis screening BI ?? IMPRESSION: ?? No mammographic evidence of malignancy. ? ASSESSMENT: ? BI-RADS BI-RADS 2 - Benign Findings ? RECOMMENDATION: ?? Routine annual mammography screening. ? 1 year F/U ? This examination should not preclude the clinical evaluation of a ?? suspicious palpable abnormality. ? This patient's information was entered into a reminder system with a ?? target due date for their next mammogram. ? Electronically signed by: ??Chaparrita Lyn DO ??12/07/2024 03:32 PM EST ? Dictated By: ?Chaparrita Lyn DO ? Signed By: ?<Electronically signed by Chaparrita Lyn, DO in OV> ? 12/07/24 1532 ? DD/ 0845 ? TD/TT: 11/29/24 0915 ? Mule Rider: ? Procedure Note Chin Diana - 12/07/2024 [facility] [address] [place] [address] Mammography Report Signed Patient: Diana Myles LMR#: [id number] 8 : 1965Acct:[id number] Age/Sex: 59 / FADM Date: 11/29/24 Loc: HO.MAMMO Attending Dr: Umm Coley MD Ordering Physician: Umm Coley MDResults: 2Be nign Findings Date of Service: 11/29/24Follow Up: 1 Year From Orig inal Mammogram Procedure(s): MM tomosynthesis screening BI Accession Number(s): [id number] cc: Umm Coley MD EXAMINATION: MM SCREENING DIGITAL BREAST TOMOSYNTHESIS, BILATERAL CLINICAL INFORMATION: Screening. Asymptomatic. Right breast cancer status post lumpectomy. Family history of breast cancer including patient's sister. COMPARISON: Mammography: Comparison is made with available priors TECHNIQUE: Digital breast mammography with tomosynthesis is performed in both the craniocaudal and mediolateral oblique views along with computer-aided detection (CAD). FINDINGS: The breasts are heterogeneously dense, which may obscure small masses (ACR BI-RADS breast composition Category c). Right lumpectomy changes are stable. There are no significant masses, abnormal calcifications, or other abnormalities. MM/MM tomosynthesis screening BI IMPRESSION: No mammographic evidence of malignancy. ASSESSMENT: BI-RADS BI-RADS 2 - Benign Findings RECOMMENDATION: Routine annual mammography screening. 1 year F/U This examination should not preclude the clinical evaluation of a suspicious palpable abnormality. This patient's information was entered into a reminder system with a target due date for their next mammogram. Electronically signed by: Chaparrita Lyn DO 12/07/2024 03:32 PM [facility] Dictated By: Chaparrita Lyn DO Signed By: <Electronically signed by Chaparrita Lyn DO in OV> 12/07/24 1532 DD/ 0845 TD/TT: 11/29/24 0915 Mule Rider: Umm Coley MD IMG BI PROCEDURES Edited Result - Final documented in this encounter Visit Diagnoses Not on filedocumented in this encounter Additional Health Concerns Assessment Noted Time PHQ-9 Depression Total Score: 10 024 9:17 AM EDT documented as of this encounter Care Teams Bead Forming Machine Operator Relationship Specialty Start Date End Date Umm Coley MD [address] [place] [address] PCP - General Family Medicine 10/31/16 [facility] 11/14/24 documented as of this encounter
--- OUTSIDE RECORDS SUMMARY | 2024-12-23 15:07 | XMS_ITS | Encounter Summary ---
Author Organization [employer] [facility] Address [address] [place] [address] 7t [place] [address] Care Team Providers Care Professor Of Vegetable Science Name Role Phone Umm Coley MD Primary Care Provider + Encounter Details Date Type Department Care Team (Latest Contact Info) Description 09/16/2022 Abstract [facility] CONVERSIONS Dental, Provider, DDS Social History Tobacco [...] Description 12/27/2024 1:00 PM EST Office Visit [facility] MEDICINE [address] [place] [address] Umm Coley MD [address] [place] [address] 03/08/2025 10:00 AM EDT Office Visit [facility] ADULT DENTAL [address] [place] [address] Mariangel Ruff [address] [place] [address] documented as of this encounter Visit Diagnoses Not on filedocumented in this encounter Care Teams Professor Of Vegetable Science Relationship Specialty Start Date End Date Umm Coley MD [address] [place] [address] PCP - General Family Medicine 10/31/16 Eva Nunez Coil Tester 04/05/24 07/06/24 [facility] 05/11/24 11/17/24 [facility] 11/14/24 documented as of this encounter
--- OUTSIDE RECORDS SUMMARY | 2024-12-23 15:07 | XMS_ITS | Encounter Summary ---
Author Organization [employer] Address [address] [facility] 7t [place] [address] Care Team Providers Care Plastic Joint Maker Name Role Phone Umm Coley MD Primary Care Provider + Encounter Details Date Type Department Care Team (Late st Contact Info) Description 08/23/2024 Orders Only [facility] ADULT DENTAL [address] [place], [place] [phone] Johnny Gonzalez, DMD [address] [place], [place] [phone] Social History Tobacco Use Types Packs/Day Years [...] Description 12/27/2024 1:00 PM EST Office Visit [facility] MEDICINE [address] [place] [address] Umm Coley MD [address] [place] [address] 03/08/2025 10:00 AM EDT Office Visit [facility] ADULT DENTAL [address] [place] [address] Elzbieta, Mariangel [address] [place] [address] documented as of this encounter Visit Diagnoses Not on filedocumented in this encounter Additional Health Concerns Assessment Noted Time PHQ-9 Depression Total Score: 10 024 9:17 AM EDT documented as of this encounter Care Teams Plastic Joint Maker Relationship Specialty Start Date End Date Umm Coley MD [address] [place] [address] PCP - General Family Medicine 10/31/16 [facility] 05/11/24 11/17/24 [facility] 11/14/24 documented as of this encounter
--- OUTSIDE RECORDS SUMMARY | 2024-12-23 15:07 | XMS_ITS | Encounter Summary ---
Author Organization [employer] Address [address] [facility] 7t [place] [address] Care Team Providers Care Technical Assoc Name Role Phone Umm Coley MD Primary Care Provider + Reason for Visit * Reason Comments Med Change Request Encounter Details Date Type Department Care Team ([facility] Contact Info) Description 03/20/2023 Refill [facility] ADULT DENTAL [address] [place] [address] Johnny Gonzalez DMD [address] [place] [address] Social History Tobacco Use Types Packs/Day Years [...] Description 12/27/2024 1:00 PM EST Office Visit [facility] MEDICINE [address] [place] [address] Umm Coley MD [address] [place] [address] 03/08/2025 10:00 AM EDT Office Visit [facility] ADULT DENTAL [address] [place], [place] [phone] Trino Ruffaris [address] [place] [address] documented as of this encounter Visit Diagnoses Not on filedocumented in this encounter Care Teams Technical Assoc Relationship Specialty Start Date End Date Umm Coley MD [address] [place] [address] PCP - General Family Medicine 10/31/16 Eva Nunez Tape Sewing Machine Operator 04/05/24 07/06/24 [facility] 05/11/24 11/17/24 [facility] 11/14/24 documented as of this encounter
--- OUTSIDE RECORDS SUMMARY | 2024-12-23 15:07 | XMS_ITS | Encounter Summary ---
Author Organization [employer] [facility] Address [address] [place] [address] 7t [place] [address] Care Team Providers Care Precinct Police Lieutenant Name Role Phone Umm Coley MD Primary Care Provider + Encounter Details Date Type Department Care Team (Late st Contact Info) Description 09/24/[address] [facility] ADULT DENTAL [address] [place] [address] Dental, Provider, DDS Social History Tobacco Use [...] Description 12/27/2024 1:00 PM EST Office Visit [facility] MEDICINE [address] [place] [address] Umm Coley MD [address] [place] [address] 03/08/2025 10:00 AM EDT Office Visit [facility] ADULT DENTAL [address] [place] [address] Mariangel Ruff [address] [place] [address] documented as of this encounter Procedures Procedure Name Priority Date/Time Associated Diagnosis Comments 10 ML RESIN-BASED COMPOSITE - 2 SURF, ANTERIOR Routine 09/24/2022 12:00 AM EST 7 ML RESIN-BASED COMPOSITE - 2 SURF, ANTERIOR Routine 09/24/2022 12:00 AM EST 13 [...] on filedocumented in this encounter Care Teams Precinct Police Lieutenant Relationship Specialty Start Date End Date Umm Coley MD [address] [place] [address] PCP - General Family Medicine 10/31/16 Eva Nunez Director Recreation 04/05/24 07/06/24 [facility] 05/11/24 11/17/24 [facility] 11/14/24 documented as of this encounter
--- OUTSIDE RECORDS SUMMARY | 2024-12-23 15:07 | XMS_ITS | Encounter Summary ---
Author Organization [employer] Address [address] [place] [address] 7t [place] [address] Care Team Providers Care Seconds Grader Name Role Phone Umm Coley MD Primary Care Provider + Reason for Visit * Reason Comments Med Refill Encounter Details Date Type Department Care Team (Late st Contact Info) Description 02/05/2023 Refill [facility] MEDICINE [address] [place], [place] [phone] Umm Coley MD [address] [place], [place] [phone] Arthritis of knee Social History Tobacco Use [...] Upcoming Encounters Date Type Department Care Team ([facility] Contact Info) Description 12/27/2024 1:00 PM EST Office Visit [facility] MEDICINE [address] [place], [place] [phone] Umm Coley MD [address] [place] [address] 03/08/2025 10:00 AM EDT Office Visit [facility] ADULT DENTAL [address] [place], [place] [phone] Mariangel Ruff [address] [place], [place] [phone] documented as of this encounter Visit Diagnoses Diagnosis Arthritis of knee Unspecified arthropathy, lower leg documented in this encounter Care Teams Seconds Grader Relationship Specialty Start Date End Date Umm Coley MD [address] [place], [place] [phone] PCP - General Family Medicine 10/31/16 Eva Nunez Make Up Operator 04/05/24 07/06/24 [facility] 05/11/24 11/17/24 [facility] 11/14/24 documented as of this encounter
--- OUTSIDE RECORDS SUMMARY | 2024-12-23 15:07 | XMS_ITS | Encounter Summary ---
Author Organization [email or web address] Address [address] [facility] [address]t [place] [address] Care Team Providers Care Stroboroma Operator Name Role Phone Umm Coley MD Primary Care Provider + Reason for Visit * Reason Onset Date Comments Appointment Request 12/05/2024 Encounter Details Date Type Department Care Team ([facility] st Contact Info) Description 12/05/2024 Telephone [facility] MEDICINE [address] [place], [place] [phone] Umm Coley MD [address] [place], [place] [phone] Appointment Request Social History Tobacco Use Types [...] Telephone Encounter - Gisela Reynoso RN - 12/05/2024 11:01 AM EST TC placed to patient [phone] via My [employer] (PhoRent # [id number]). Patient reports she would like an appointment with PCP in regards to a medication. Patient does not want to disclose what the concern is regarding her medication. RN attempted to inquire what the concern is however patient refusing to disclose. Of note, patient does have a VNA and medications are in a lockbox. Patient reports she saw VNA on but needs to talk to PCP in regards to VNA (patient does not want to disclose). RN scheduled patient for an appointment with PCP for 12/06/24 to further discuss. RN did offer an appointment for tomorrow however patient denied d/t cardiology appointment. Patient to f/u PRN. * Telephone Encounter - Ronny Farrell - 12/05/2024 8:10 AM EST TC from pt requesting Apt with PCP due to romie medications and her Health., Pt doesn't want to give any more information. Contact pt at [phone] documented in this encounter Plan of Treatment Upcoming Encounters Date Type Department Care Team (Late st Contact Info) Description 12/27/2024 1:00 PM EST Office Visit [facility] MEDICINE [address] [place] [address] Umm Coley MD [address] [place] [address] 03/08/2025 10:00 AM EDT Office Visit [facility] ADULT DENTAL [address] [place] [address] ElzbietaMariangel [address] [place] [address] documented as of this encounter Visit Diagnoses Not on filedocumented in this encounter Additional Health Concerns Assessment Noted Time PHQ-9 Depression Total Score: 10 024 9:17 AM EDT documented as of this encounter Care Teams Stroboroma Operator Relationship Specialty Start Date End Date Umm Coley MD [address] [place] [address] PCP - General Family Medicine 10/31/16 [facility] 11/14/24 documented as of this encounter
--- OUTSIDE RECORDS SUMMARY | 2024-12-23 15:07 | XMS_ITS | Clinical Summary ---
Author Organization [employer] Address [address] [place] [address] 7t [place] [address] Care Team Providers Care Landscape Nurseryman Name Role Phone Shalonda Coley MD Primary [...] continue f/u with mental health provider in [facility]. Dry eye 05/16/2024 Assessment & Plan (05/16/2024 [...] She was referred to vestibular therapy at [facility], information given to pt to schedule appointment [...] write a complaint to the landlord, building arts administrator, and housing department. I gave them information about criminal legal assistant in the [place] Will refer to medicare contact specialist to assist with housing due to poor conditions of current apartment Pt already has a letter from counselor, will FU at next appointment Household circumstance affecting care 02/03/2023 Assessment & Plan (12/11/2023 9:49 AM EST): Pt has depression and difficulty with memory. She has a CEMENT FINISHING SUPERVISOR and a VNA to manage med, pharma education. VNA can go a few times per week once a POC has been discussed and taught to pt's caregivers Assessment & Plan (04/02/2023 2:38 PM EDT): Pt continues to live in the same apartment with anxiety from recent of her neighbor. Already in contact with [facility] and team is helping her with letters for housing Assessment & Plan (02/26/2023 1:12 PM EDT): Pt lives alone, I will advise to move out to a different apartment due to increased anxiety with household circumstance Refer to [facility] Assessment & Plan (02/03/2023 2:23 PM EDT): [...] EST): Pt seen psychotherapist and psychiatry at [facility], needs medication management due to Hx [...] She will continue close follow up with [facility] Psych. I explained to patient that [...] Plan (02/26/2023 1:11 PM EDT): Pt seeing [facility] team every week. I counseled her to [...] prn. Recurrent falls 09/30/2022 Assessment & Plan (12/08/2024 12:25 PM EST): Pt with multiple medication problems, OA and [...] we can organize the medications. Pt and CEMENT FINISHING SUPERVISOR agreed with the plan of care. POC discussed with team nurse and specialty manufacturing supervisor. Assessment & Plan (04/28/2024 3:33 PM EDT): [...] (04/28/2024 5:25 PM EDT): Pt seen by [facility] clinician, continue psychotherapy every week. She [...] she needs pharmaco education. She's followed by [facility] psych. I told her and CEMENT FINISHING SUPERVISOR she needs to bring all her med bottles so we can go over her meds until the new VNA service is restarted. Her CEMENT FINISHING SUPERVISOR is helping her as well as her daughter With meds for now. Pt feels safe. Will send new Rx if needed with prescription in bulgarian so VNA can read it (one of the issues being that med rx were written in Lao and the VNA that took over didn't understand the directions). Will check with VNA service to see what current situation is, pt wants to start using a new VNA service (the one her neighbor uses, [facility] [place] based) . Contusion of knee 02/16/2018 Motor [...] r/o ulcerations, none at this time Continue Arcenio Borderline personality disorder 02/18/2013 Posttraumatic stress disorder [...] Plan (05/02/2024 5:56 PM EDT): -Followed by [facility] - last available consult note March [...] has to reschedule pharmacological stress test [place] [facility] [place] amlodipine and flexeril and take Tylenol [...] Encounters Date Type Department Care Team Description 12/22/2024 Telephone [facility] [place] [address] Shalonda Coley MD Appointment Request 12/20/2024 [place]phone [place] [address] Shalonda Coley MD Call Back Request 12/13/2024 Telephone [place] [address] Shalonda Coley MD PCP Contact ([employer] set up.) 12/09/2024 Travel 12/08/2024 12:15 PM EST Office [place] [address] Shalonda Coley MD Recurrent falls (Primary Dx); Neuropathy of both feet; Generalized anxiety disorder 12/08/2024 [place]phone [place] [address] Gisela Reynoso RN VNA services 12/08/2024 Travel 12/08/2024 [place]phone [place] [address] Shalonda Coley MD FYI. 12/07/[address] [address] Juana Connor MA Chart prep 12/05/[address] [place] [address] Shalonda Coley MD Appointment Request 11/29/2024 Orders [address] [place] [address] Shalonda Coley MD 11/10/2024 12:15 PM EST Office Visit [address] [address] Shalonda Coley MD Generalized anxiety disorder (Primary Dx); Mild persistent asthmatic bronchitis without complication; Encounter for immunization 11/10/[address] [address] Gisela Reynoso RN VNA agency switch 11/10/2024 Travel 11/09/[address] [address] Shalonda Coley MD Chart prep 10/24/[address] [address] Shalonda Coley MD Request For Order(s) 10/24/[address] [address] Shalonda Coley MD VNA Switch 10/14/2024 2:30 PM EST Office Visit [facility] [address] [place], [place] [phone] Johnny Gonzalez DMD Defective dental restorationism (Primary Dx); Dental caries; History of root canal procedure 10/13/[address] [address] Shalonda Coley MD FYI 10/10/[address] [address] Shalonda Coley MD Stable Imaging Letter 09/27/[address] [address] Shalonda Coley MD Med Refill from Last 3 Months Immunizations Name Administration [...] 12/08/2024 11:[address] Respiratory Rate 15 11/10/2024 12:01 PM EST Oxygen Saturation 99% 12/08/2024 11:19 AM EST Inhaled Oxygen Concentration - - Weight 51.4 kg (113 lb 4 oz) 12/08/2024 11:19 AM EST Height 157.5 cm (5' 2 ) 12/08/2024 11:19 AM EST Body Mass Index 20.71 12/08/2024 11:19 AM EST Plan of Treatment Upcoming Encounters Date Type Department Care Team (Late st Contact Info) Description 12/27/2024 1:00 PM EST Office Visit [facility] MEDICINE [address] [place] [address] Shalonda Coley MD [address] [place] [address] 03/08/2025 10:00 AM EDT Office Visit [facility] ADULT DENTAL [address] [place] [address] [place] [address] Health Maintenance Due Date Last Done Comments CT Colonography 1963 FIT DNA/Cologuard 1965 FIT 1965 FOBT 1965 Sigmoidoscopy 1963 Alcohol/Substance Use Screening 1975 Hepatitis C Screening 1981 Hepatitis A Vaccines (1 of 2 - Risk 2-dose series) 1982 Pneumococcal Vaccine: 50+ Years (1 of 2 - PCV) 1982 Hepatitis B Vaccines (2 of 3 - Risk 3-dose series) 05/29/2008 05/01/2008 RSV Patients and Patients Aged 60 years or older (1 - Risk 60-74 years 1-dose series) 2023 COVID-19 Vaccine ( season) 2024 12/04/2021, 02/06/2021, 01/09/2021 Dental Prophylaxis 10/05/2024 04/04/2024, 05/25/2023 Dental Oral Exam 10/26/2024 04/25/2024, 05/25/2023 Depression Monitoring (PHQ-9) 12/11/2024 06/10/2024, 06/10/2024 SDOH Screening 03/03/2025 03/03/2024 Dental X-Ray: Full Mouth 03/14/2025 03/13/2022 Depression Screening 06/10/2025 06/10/2024, 06/10/20 24 DTaP/Tdap/Td Vaccines (2 - Td or Tdap) 08/01/2025 08/01/2015, 11/14/2013, 08/01/2005 Dental X-Ray: Bitewings 08/02/2025 08/01/20 24, 04/04/2024, 05/25/2023, Additional history exists Pap Smear 10/08/2025 10/08/2022, 06/18/2016 Mammogram 11/29/2025 11/29/2024, 11/03, 11/24/2023, Additional history exists Tobacco Screening 12/08/2025 12/08/2024 Cervical Cancer Screening 10/08/2027 HPV/Cotest 10/08/2027 10/08/2022 [...] TOMOSYNTHESIS BILATERAL Routine 11/29/2024 8:45 AM EST POCT RSV (ID NOW RAPID ANTIGEN) Routine [...] EST Mild persistent asthmatic bronchitis without complication CASE PRESENTATION, DETAILED AND EXTENSIVE TREATMENT PLANNING Routine 10/14/2024 2:30 PM EST Defective dental restorationism Dental caries History of root canal procedure 12 DO RESIN-BASED COMPOSITE - 2 SURF, POSTERIOR Routine 10/14/2024 2:30 PM EST Dental caries 10 MIFL RESIN-BASED COMPOSITE - 4 OR MORE SURFACES (ANTERIOR) Routine 10/14/2024 2:30 PM EST Defective dental restorationism 13 CORE BUILDUP, INCL ANY PINS WHEN REQ Routine 10/14/2024 2:30 PM EST History of root canal procedure BITEWING - SINGLE RADIOGRAPHIC IMAGE Routine 08/01/2024 2:00 PM EDT Symptomatic irreversible pulpitis PERIODIC ORAL EVALUATION - ESTABLISHED PATIENT Routine 04/25/2024 1:00 PM EDT Symptomatic irreversible pulpitis PROPHYLAXIS - ADULT Routine 04/04/2024 1 :00 PM EDT Dental calculus HM COLONOSCOPY Routine 07/30/2023 THINPREP PAP AND HPV MRNA E6/E7 Routine 10/08/2022 9:30 AM EST [facility] HISTORICAL HIV AB/AG Routine 04/30/2022 11:28 AM EDT from Last 3 Months or Most Recently Relevant to Health Maintenance Results * XR Chest 2 Views (12/13/2024 9:33 AM EST) Anatomical Region Laterality Modality Chest Radiographic Kyleigh ging 12/13/2024 9:33 AM EST Narrative 12/13/2024 10:06 AM EST ? [facility] ?[address] ?[place] [address] ?XRay Report ? Signed ? Patient: Myles,Diana L ?MR#: [id number] ?? 8 ? : 1965 ?Acct:[id number] ? Age/Sex: 59 / F ?ADM Date: 12/13/24 ? Loc: HO.XRAY ? Attending Dr: Anthony Curtis MD ? Ordering Physician: Anthony Curtis MD ?? Date of Service: 12/13/24 ?? Procedure(s): XR chest 2V ?? Accession Number(s): [id number] ? cc: Shalonda Coley MD; Anthony Curtis MD ? EXAMINATION: [...] DD/ 0933 ? TD/TT: 12/13/24 0948 ? Conference And Event Organiser: ? Procedure Note Adalgisa, Image - 12/13/2024 [place] [address] XRay Report Signed Patient: Diana Myles LMR#: [id number] 8 : 1965Acct:[id number] Age/Sex: 59 / FADM Date: 12/13/24 Loc: MERVAT Attending Dr: Anthony Curtis MD Ordering Physician: Anthony Curtis MD Date of Service: 12/13/24 Procedure(s): XR chest 2V Accession Number(s): [id number] cc: Shalonda Coley MD; Anthony Curtis MD EXAMINATION: XR CHEST CLINICAL INFORMATION: J45.909 - Unspecified asthma, uncomplicated COMPARISON: 02/29/2024. TECHNIQUE: [...] by: Mathieu Lepe MD 12/13/2024 10:04 AM [facility] Dictated By: Mathieu Lepe MD Signed By: <Electronically signed by Mathieu Lepe MD in OV> 12/13/24 1004 DD/ 0933 TD/TT: 12/13/24 0948 Conference And Event Organiser: [facility] External Provider IMG XR PROCEDURES Final Result * MR Knee w/o Contrast Left (12/06/2024 6:06 PM EST) Anatomical Region Laterality Modality Magnetic Resonan ce 12/06/2024 6:06 PM EST Narrative 12/08/2024 8:31 AM EST ? [facility] ?[address] ?[place] [address] ? Magnetic Resonance Report ? Signed ? Patient: Myles,Diana L ?MR#: [id number] ?? 8 ? : 1965 ?Acct:[id number] ? Age/Sex: 59 / F ?ADM Date: 12/06/24 ? Loc: HO.MRI ? Attending Dr: Denilson Forman PA-C ? Ordering Physician: Denilson Forman PA-C ?? Date of Service: 12/06/24 ?? Procedure(s): MR knee LT wo con ?? Accession Number(s): [id number] ? cc: Shalonda Coley MD; Denilson Forman PA-C ? EXAMINATION: [...] MD in OV> ?12/08/24 0829 ? DD/ ? TD/TT: 12/06/247 ? Conference And Event Organiser: ? Procedure Note Adalgisa, Image - 02/06/[address] [address] Magnetic Resonance Report Signed Patient: Diana Myles LMR#: [id number] 8 : 1965Acct:[id number] Age/Sex: 59 / FADM Date: 12/06/24 Loc: HO.MRI Attending Dr: Denilson Forman PA-C Ordering Physician: Denilson Forman PA-C Date of Service: 12/06/24 Procedure(s): MR knee LT wo con Accession Number(s): [id number] cc: Shalonda Coley MD; Denilson Forman PA-C EXAMINATION: MR [...] signed by Mathieu Lepe MD in OV> 12/08/2429 DD/ 180 TD/TT: 12/06/24 181 Conference And Event Organiser: [facility] External Provider IMG MRI PROCEDURES Final Result * BI Mammogram Screening Tomosynthesis Bilateral (11/29/2024 8:45 AM EST) Anatomical Region Laterality Modality Breast Bilateral Mammography 11/29/2024 8:45 AM EST Narrative 12/07/2024 3:35 PM EST ? [facility] ? [address] ?[place] [address] ? Mammography Report ? Signed ? Patient: Myles,Diana L ?MR#: [id number] ?? 8 ? : 1965 ?Acct:[id number] ? Age/Sex: 59 / F ?ADM Date: 01/28/25 ? Loc: HO.MAMMO ? Attending Dr: Shalonda Coley MD ? Ordering Physician: Shalonda Coley MD ?Results: 2Be ?? nign Findings ? Date of Service: 11/29/24 ?Follow Up: 1 Year From Orig ?? inal Mammogram ? Procedure(s): MM tomosynthesis screening BI ?? Accession Number(s): [id number] ? cc: Shalonda Coley MD ? EXAMINATION: ?? MM SCREENING [...] ??Chaparrita Lyn DO ??12/07/2024 03:32 PM EST ?? RP ? Dictated By: ?Chaparrita Lyn DO ? Signed By: ?<Electronically signed by Chaparrita Lyn, DO in OV> ? 12/07/24 1532 ? DD/ 0845 ? TD/TT: 11/29/24 0915 ? Conference And Event Organiser: ? Procedure Note Donotngoziter, Image - 12/07/2024 [place] [facility] [address] [place], [place] [address] Mammography Report Signed Patient: Diana Myles LMR#: [id number] 8 : 1965Acct:[id number] Age/Sex: 59 / FADM Date: 11/29/24 Loc: HO.MAMMO Attending Dr: Shalonda Coley MD Ordering Physician: Shalonda Coley MDResults: 2Be nign Findings Date of Service: 11/29/24Follow Up: 1 Year From Orig ina Mammogram Procedure(s): MM tomosynthesis screening BI Accession Number(s): [id number] cc: Shalonda Coley MD EXAMINATION: MM SCREENING DIGITAL BREAST [...] by: Chaparrita Lyn DO 12/07/2024 03:32 PM [facility] Dictated By: Chaparrita Lyn DO Signed By: <Electronically signed by Chaparrita Lyn DO in OV> 12/07/24 1532 DD/ 0845 TD/TT: 11/29/24 0915 Conference And Event Organiser: Shalonda Coley MD IMG BI PROCEDURES Edited Result - Final * POCT Rapid RSV ROJAS ID NOW (11/10/2024 2:01 PM EST) [facility] RSV Rapid Ag POC Negative Negative Swab 11/10/2024 2:01 PM EST Shalonda Coley MD POINT OF CARE TEST ENTER /EDIT ORDERABLES Final Result * POCT Rapid Influenza B ROJAS ID NOW (11/10/2024 2:01 PM EST) [facility] Influenza B Negative Negative, Indeterminate [facility] Swab 11/10/2024 2:01 PM EST Shalonda Coley MD POINT OF CARE TEST ENTER /EDIT ORDERABLES Final Result Performing Organization Address City/[facility]/ZIP Co de Phone Number [facility] [address] [place] [phone] * POCT Rapid Influenza A ROJAS ID NOW (11/10/2024 2:01 PM EST) [facility] Influenza A Negative Negative, Indeterminate [facility] Swab 11/10/2024 2:01 PM EST Shalonda Coley MD POINT OF CARE TEST ENTER /EDIT ORDERABLES Final Result Performing Organization Address [facility] Co de Phone Number [facility] [address] [place] [phone] * POCT Rapid Covid-19 BinaxNOW (11/10/2024 2:01 PM EST) [facility] Rapid COVID Ag Negative Swab 11/10/2024 2:01 PM EST Shalonda Coley MD POINT OF CARE TEST ENTER /EDIT ORDERABLES Final Result * (ABNORMAL) Hm Colonoscopy (07/30/2023) Colonoscopy Abnormal( A) Normal [facility] Comment:SSL polyp Shalonda Coley MD HEALTH MAINTENANCE Final Result [facility] [address] [place] [phone] [phone] * Thinprep PAP and HPV nRNA E6/E7 (10/08/2022 9:30 AM EST) Clinical Information: None given [facility] LMP: NONE GIVEN [facility] Prev. PAP: NONE GIVEN [facility] Prev. BX: NONE GIVEN [facility] SOURCE: None given [facility] Statement Of Adequacy: SATISFACTORY FOR EVALUATION Age and/or menstrual status not provided [employer] Interpretation/Re sult: [facility] Comment: Negative for intraepithelial lesion or malignancy. Atrophic pattern; predominantly parabasal cells Steel Pourer: Siria Wrappt Comment: DMM, CT(ASCP) CT screening location: [address] ??[address] Review Steel Pourer: Lonot Comment: MAA, CT(ASCP) CT screening location: [address] ??[phone] (Always Message) Que [facility] Comment: EXPLANATORY NOTE: The Pap is a [...] HPV nRNA E6/E7 Not Detected Not Detected [facility] Comment: Methodology: Java Enterprise Architect-Mediated Amplification This assay detects E6/E7 viral messenger RNA (mRNA) from 14 high-risk HPV types (16,18,31,33,35,39,45,51,52,56,58,59,66,68). Cervical sources are required for HPV testing. If a vaginal source from a patient who has had a total hysterectomy with removal of cervix was submitted, please contact the testing laboratory for alternative testing options. For additional information, please refer to http://education.Eataly Net/faq/WGE078u6 (This link if provided for information/ educational purposes only.) 10/08/2022 9:30 AM EST 10/10/2022 1:07 AM EST Narrative [facility] - 10/14/2022 7:08 PM EST FASTING: UNKNOWN Shauna Matamoros [facility] PATHOLOGY ORDERABLES Final Result [employer] [address], [place] [phone] [employer] [place] [employer] [address], [place] [address] * HIV AB/AG (04/30/2022 11:28 AM EDT) Pathologist [facility] HIV AB/AG Nonreactive Nonreactive [facility] Comment: HIV-1 p24 Ag and/or [...] detection of this assay. ?? The [employer] Green Building Engineer HIV Ag/Ab Combo assay result and supplemental assay results should be interpreted in conjunction with the patient's clinical presentation, history and other laboratory results. ??If the results are inconsistent with clinical evidence, additional testing is suggested to confirm the result. Hepatitis B Surface Antibody REACTIVE Nonreactive [facility] Comment:REACTIVE: > 11.99 mI U/mL Hepatitis B Surface Antigen Negative Negative [facility] Hepatitis B Core Antibody Nonreactive Nonreactive [facility] 04/30/2022 11:2 8 AM EDT Shalonda Coley MD HISTORICAL/NON ORDERABLE LABS Final Result [facility] [address] from Last 3 Months or Most Recently Relevant to Health Maintenance Insurance [facility] C3 [facility] C3 [facility] MEDICAID STAND ADULT Care Teams Landscape Nurseryman Relationship Specialty Start Date End Date Shalonda Coley MD [address] [place] [address] PCP - General Family Medicine 10/31/16 [facility] 11/14/24
--- OUTSIDE RECORDS SUMMARY | 2024-12-23 15:07 | XMS_ITS | Encounter Summary ---
Author Organization [facility] Address [address] [place] [address] [address] [place] [address] Care Team Providers Care Verse Writer Name Role Phone Umm Coley MD Primary Care Provider + Encounter Details Date Type Department Care Team (Latest Contact Info) Description 03/13/[address] [facility] CONVERSIONS Dental, Provider, DDS Social History [...] 12/27/2024 1:00 PM EST Office Visit [facility] MEDICINE [address] [place] [address] Umm Coley MD [address] [place] [address] 03/08/2025 10:00 AM EDT Office Visit [facility] ADULT DENTAL [address] [place] [address] Mariangel Ruff [address] [place] [address] documented as of this encounter Visit Diagnoses Not on filedocumented in this encounter Care Teams Verse Writer Relationship Specialty Start Date End Date Umm Coley MD [address] [place] [address] PCP - General Family Medicine 10/31/16 Eva Nunez Audit Reviewer 04/05/24 07/06/24 [facility] 05/11/24 11/17/24 [facility] 11/14/24 documented as of this encounter
--- OUTSIDE RECORDS SUMMARY | 2024-12-23 15:07 | XMS_ITS | Encounter Summary ---
Author Organization [employer] Address [address] [facility] [address]t [place] [address] Care Team Providers Care Educational Technology Specialist Name Role Phone Umm Coley MD Primary Care Provider + Encounter Details Date Type Department Care Team (Late st Contact Info) Description 11/03/2022 Orders Only [facility] MEDICINE [address] [place], [place] [phone] Umm Coley MD [address] [place], [place] [phone] Osteopenia after menopause (Primary Dx) Social History [...] Description 12/27/2024 1:00 PM EST Office Visit [facility] [address] [place] [address] Umm Coley MD [address] [place] [address] 03/08/2025 10:00 AM EDT Office Visit [facility] ADULT DENTAL [address] [place], [place] [phone] Elzbieta, Mariangel [address] [place], [place] [phone] Scheduled Orders Name Type Priority Associated Diagnoses Orde r Schedule Vitamin D, 25-Hydroxy, Total, Immunoassay Lab Routine Osteopenia after menopause Expected: 11/03/2022 (Approximate), Expires: 11/03/2023 PTH, Intact (ICMA) And Ionized Calcium Lab Routine Osteopenia after menopause Expected: 11/03/2022 (Approximate), Expires: 11/03/2023 documented as of this encounter Visit Diagnoses Diagnosis Osteopenia after menopause- Primary documented in this encounter Care Teams Educational Technology Specialist Relationship Specialty Start Date End Date Umm Coley MD [address] [place] [phone] PCP - General Family Medicine 10/31/16 Eva Nunez Analytical Engineer 04/05/24 07/06/24 [facility] 05/11/24 11/17/24 [facility] 11/14/24 documented as of this encounter
--- OUTSIDE RECORDS SUMMARY | 2024-12-23 15:07 | XMS_ITS | Encounter Summary ---
Author Organization [employer] Address [address] [facility] [address]t [place] [address] Care Team Providers Care Hospital Medical Biller Name Role Phone Umm Coley MD Primary Care Provider + Reason for Visit * Reason Comments Med Refill Encounter Details Date Type Department Care Team (Late Contact Info) Description 05/21/2023 Refill [facility] [address] [place], [place] [phone] Umm Coley MD [address] [place] [address] Arthritis of knee Social History Tobacco Use [...] PM EST Office Visit [facility] [address] [place] [address] Umm Coley MD [address] [place] [address] 03/08/2025 10:00 AM EDT Office Visit [facility] ADULT DENTAL [address] [place] [address] Trino Ruffaris [address] [place] [address] documented as of this encounter Visit Diagnoses Diagnosis Arthritis of knee Unspecified arthropathy, lower leg documented in this encounter Additional Health Concerns Assessment Noted Time PHQ-9 Depression Total Score: 12 023 1:58 PM EDT documented as of this encounter Care Teams Hospital Medical Biller Relationship Specialty Start Date End Date Umm Coley MD [address] [place] [phone] PCP - General Family Medicine 10/31/16 Eva Nunez Foam Charger 04/05/24 07/06/24 [facility] 05/11/24 11/17/24 [facility] 11/14/24 documented as of this encounter
--- OUTSIDE RECORDS SUMMARY | 2024-12-23 15:07 | XMS_ITS | Encounter Summary ---
Author Organization [employer] Address [address] [facility] [address]t [place] [address] Care Team Providers Care Digital Imager Name Role Phone Umm Coley MD Primary Care Provider + Reason for Visit * Reason Onset Date Comments Appointment 03/17/2023 Encounter Details Date Type Department Care Team ([facility] st Contact Info) Description 03/17/2023 Telephone [facility] ADULT D[facility] [address] [place] [address] Johnny Gonzalez, DMD [address] [place] [address] Appointment Social History Tobacco Use Types Packs/Day [...] Description 12/27/2024 1:00 PM EST Office Visit [facility] [address] [place] [address] Umm Coley MD [address] [place] [address] 03/08/2025 10:00 AM EDT Office Visit [facility] [address] [place] [address] Mariangel Ruff [address] [place] [address] documented as of this encounter Visit Diagnoses Not on filedocumented in this encounter Care Teams Digital Imager Relationship Specialty Start Date End Date Umm Coley MD [address] [place] [phone] PCP - General Family Medicine 10/31/16 Eva Nunez Shuttle Veneering Supervisor 04/05/24 07/06/24 [facility] 05/11/24 11/17/24 [facility] 11/14/24 documented as of this encounter
[2024-12-23] MEDS: 0.9 % Sodium Chloride 1,000 ML 999 ML IV ×2 (16:13→16:14)
--- NOTE | 2024-12-23 16:24 | ED.GENADULT ---
HPI - General Adult General Chief complaint: Fall Stated complaint: FALL ON ICE, R WRIST DEFORMITY PER EMS Time Seen by Provider: 12/23/24 15:09 History of Present Illness ED Provider: Lourdes Shultz HPI narrative: 59-year-old female with past medical history of tubular adenoma, anemia GERD, and fibromyalgia presents to ED for fall. 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 Patient denies hitting head or loss of consciousness. Patient states also hitting her right knee. Patient denies being on any blood thinners. Patient denies feeling any dizziness, chest pain, headache, nausea or abdominal pain before falling. Related Data Home Medications ?Medication ?Instructions ?Recorded ?Confirmed buspirone 15 mg tablet 15 mg PO TID 11/08/20 06/13/24 olanzapine 20 mg tablet 20 mg PO BEDTIME 11/08/20 06/13/24 prazosin 2 mg capsule 4 mg PO BEDTIME 11/08/20 06/13/24 sertraline 100 mg tablet 200 mg PO DAILY 11/08/20 06/13/24 loratadine 10 mg tablet 10 mg PO DAILY 07/16/21 06/13/24 cyanocobalamin (vitamin B-12) 100 100 mcg PO DAILY 05/29/22 06/13/24 mcg tablet cholecalciferol (vitamin D3) 50 50 mcg PO DAILY 07/01/22 06/13/24 mcg (2,000 unit) capsule diclofenac sodium 1 % topical gel 2 g topical TID PRN Pain 07/29/22 06/13/24 amitriptyline 100 mg tablet 100 mg PO BEDTIME 10/22/22 06/13/24 pregabalin 150 mg capsule 150 mg PO BID 04/14/23 06/13/24 acetaminophen 500 mg tablet 500 mg PO Q4H PRN Pain 02/29/24 06/13/24 meclizine 25 mg tablet 25 mg PO .COMPLEX 03/23/24 06/13/24 Previous Rx's ?Medication ?Instructions ?Recorded naproxen 500 mg tablet 500 mg PO BID #60 tabs 01/18/24 clonazepam 0.5 mg tablet 0.5 mg PO BEDTIME #1 tab 03/02/24 clonazepam 1 mg tablet 1 mg PO DAILY #1 tab 03/02/24 mirtazapine 30 mg tablet 30 mg PO BEDTIME #30 tabs 03/02/24 walker #1 ea 03/02/24 dicyclomine 20 mg tablet 40 mg (2 x 20 mg) PO QID #240 tabs 03/09/24 melatonin 5 mg tablet 10 mg (2 x 5 mg) PO BEDTIME Sleep 04/18/24 30 days #60 tabs acetaminophen 325 mg capsule 650 mg (2 x 325 mg) PO Q6H PRN 05/10/24 pain #20 caps ibuprofen 400 mg tablet 400 mg PO Q6H PRN pain #14 tabs 05/10/24 galcanezumab-gnlm 120 mg/mL 240 mg (2 mL) subcut ONCE 30 days 06/13/24 subcutaneous pen injector #2 mL (Emgality Pen) albuterol sulfate 90 mcg/actuation 2 puff inhalation Q6H PRN for 07/14/24 aerosol inhaler wheezing 30 days #8.5 ea ferrous sulfate 325 mg (65 mg 325 mg PO MOWEFR 30 days #13 tabs 07/15/24 iron) tablet omeprazole 20 mg capsule,delayed 20 mg PO DAILY #90 caps 09/02/24 release docusate sodium 100 mg capsule 100 mg PO BID PRN for constipation 09/20/24 #180 caps celecoxib 200 mg capsule (Celebrex) 200 mg PO BID 30 days #60 caps 09/26/24 budesonide-formoterol HFA 160 2 puff inhalation BID #10.2 grams 11/04/24 mcg-4.5 mcg/actuation aerosol inhaler (Symbicort) psyllium husk 0.4 gram capsule 0.4 g PO BID #180 caps 11/07/24 ascorbic acid (vitamin C) 250 mg 500 mg (2 x 250 mg) PO .COMPLEX 28 11/15/24 chewable tablet days #12 tabs ropinirole 0.25 mg tablet 0.5 mg (2 x 0.25 mg) PO TID #180 11/18/24 tabs sennosides 8.6 mg tablet (senna) 17.2 mg (2 x 8.6 mg) PO BEDTIME 12/14/24 PRN Constipation 90 days #90 tabs sumatriptan succinate 100 mg tablet 100 mg PO .COMPLEX PRN migraine 12/14/24 headache 30 days #12 tabs acetaminophen 325 mg tablet 325 mg PO QID PRN pain #28 tabs 12/23/24 (Tylenol) naproxen 500 mg tablet 500 mg PO BID PRN pain 7 days #28 12/23/24 tabs Allergies Allergy/AdvReac Type Severity Reaction Status Date / Time codeine [CODEINE] Allergy Intermediate DIZZY/NAUSEA, Verified 12/23/24 14:55 nausea/vomiting escitalopram [From LEXAPRO] Allergy Intermediate ? NAUSEA Verified 12/23/24 14:55 meperidine [MEPERIDINE] Allergy Intermediate NAUSEA Verified 12/23/24 14:55 morphine [MORPHINE] Allergy Intermediate PALPITATIONS, Verified 12/23/24 14:55 palpitation oxycodone [OXYCODONE] Allergy Intermediate PALPATATIONS, Verified 12/23/24 14:55 palpitations tramadol Allergy Unknown dizziness, Verified 12/23/24 14:55 nausea acetaminophen [From Percocet] Allergy Shakiness Verified 12/23/24 14:55 Review of Systems Review of Systems: Right wrist pain. Right knee pain Yes all other systems are reviewed and are negative [facility] Past Medical History Medical History (Updated 12/24/24 @ 00:01 by Alejandro Wei) Primary osteoarthritis of right hand Migraine Right shoulder pain Rotator cuff tendinitis Arthritis of right shoulder region Right hand pain Breast cancer, right Status post radiation therapy Anemia Diarrhea Depression Somatization disorder Migraine equivalent syndrome Anxiety Periodontal disease Fibromyalgia Surgical History History of esophagogastroduodenoscopy (EGD) History of lumpectomy Hx of section Hx of shoulder surgery Hx of colonoscopy Family History Family History Mother HTN (hypertension) Sister Breast cancer Bone cancer Colon polyps Sister Osteoporosis Hypercholesteremia Colon polyps Social History Social History Household Members: None Housing: Apartment Are you a primary plant health care technician to a significant other at home: No Do you presently have visiting nurse or other home services: Yes ([employer]ACH[employer] 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 Physical Exam ED Vital Signs: Vital Signs - 24 hr 12/23/24 14:53 12/23/24 16:52 12/23/24 19:24 Temperature 97.7 F Pulse Rate 92 72 71 Respiratory Rate 20 18 18 Blood Pressure 91/48 L 109/49 L 100/54 L Pulse Oximetry 99 99 96 Oxygen Delivery Method Room Air Room Air Room Air BMI result Body Mass Index 25.4 Const General: cooperative, healthy appearing, comfortable, no acute distress, well developed, alert, awake and Physically active Orientation/consciousness: patient oriented x3 [facility] Head: Yes normal to inspection, Yes No palpable skull fracture present, Yes normocephalic and Yes atraumatic Eyes General: appearance normal, both eyes and all related structures Neck Neck: Yes normal visual inspection, Yes full ROM, Yes no lymphadenopathy, Yes no meningeal signs, Yes trachea midline, Yes supple, No anterior neck swelling and No tender Chest Chest palpation & inspection: normal inspection of the chest and normal palpation of entire chest wall Resp Effort & Inspection: normal respiratory effort and able to speak in complete sentences Auscultation: clear to auscultation bilaterally Cardio Jugular venous distension: no JVD Heart sounds: S1 normal heart sound present and S2 normal heart sound present GI Inspection: Yes normal to inspection Palpation (GI): Soft to palpation, not firm, nontender, no guarding and not rigid General: Yes no CVA tenderness Back/Spine/Pelvis Back: no CVA tenderness and No ecchymosis Skin General skin exam: no rashes or lesions noted, elasticity normal and turgor normal Neuro General: patient oriented x3, gait normal, tone normal, moves all extremities, Normal light touch and pain sensation, no meningeal signs, no focal motor deficits and CN's II-XI intact bilaterally Extrem Shoulder/upper arm images: 1. Positive for tenderness slight ecchymosis without any deformity, crepitus, or erythema. Rest of extremity normal. Motor/neuro/vascular exam intact Hand/finger images: 1. Deformity with tenderness on palpation and ecchymosis. Negative for erythema. Vascular neuro exam intact. Motor exam limited due to pain Knee images: 1. Positive for tenderness without any ecchymosis or deformity. Negative for erythema. Rest of extremity normal. Vascular motor neuro exam intact Medications Administered Discontinued Medications Generic Name Dose Route Start Last Admin Trade Name Freq PRN Reason Stop Dose Admin Fentanyl 25 mcg 12/23/24 17:03 12/23/24 17:20 Fentanyl Citrate/Pf 100 Mcg/2 Ml Vial IVPUSH 12/23/24 17:04 25 mcg ONCE ONE Administration Protocol Hydromorphone HCl 1 mg 12/23/24 17:29 12/23/24 17:32 Hydromorphone Hcl 1 Mg/Ml Syringe IVPUSH 12/23/24 17:30 1 mg ONCE ONE Administration Protocol Sodium Chloride 1,000 mls @ 999 mls/hr 12/23/24 15:57 12/23/24 17:24 Ns IV 12/23/24 16:57 Infused .Q1H1M STA Infusion Sodium Chloride 1,000 mls @ 999 mls/hr 12/23/24 16:12 12/23/24 18:35 Ns IV 12/23/24 17:12 Infused .Q1H1M STA Infusion Lidocaine HCl 5 ml 12/23/24 16:33 12/23/24 16:54 Lidocaine Hcl 2 % Mpf 5 Ml Vial INFILTRATI 12/23/24 16:34 5 ml ONCE ONE Administration Lidocaine HCl 5 ml 12/23/24 16:33 12/23/24 16:54 Lidocaine Hcl 2 % Mpf 5 Ml Vial INFILTRATI 12/23/24 16:34 5 ml ONCE ONE Administration Ondansetron HCl 4 mg 12/23/24 20:18 12/23/24 20:24 Ondansetron Odt 4 Mg Tab.Rapdis TRANSLINGU 12/23/24 20:19 4 mg ONCE ONE Administration Medical Decision Making Medical Decision Making MDM Narrative: 59-year-old female presents to ED for mechanical fall with obvious wrist deformity. X-rays of right hand right shoulder right knee ordered. Imaging of head and neck ordered. 5:40pm: Hand x-ray shows dorsal radial fracture and ulnar fracture. Patient given fentanyl and Dilaudid. Pressure improved with fluids. Hematoma block was done on rib fracture with lidocaine 2% 8 mL. Patient placed in trap with weight hanging through stockinette around biceps to cause extension. Patient is comfortable. 6:30pm: Patient is placed in sugar-tong splint 7:00pm: X-ray shows some improved alignment with still some angulation volar. X-rays were discussed with Dr. Costello who states no need for attempt at another reduction patient can follow-up with orthopedic surgeon next week Thursday. Patient and daughter explained worrisome signs and informed to return to the ED immediately. Rest of images are normal. Differential Diagnosis Differential Diagnoses: The differential diagnosis associated with the presentation includes (Fracture, dislocation,) Admission/Observation Consideration of admission/observation: Escalation of care including admission/observation considered Independent Interpretation I performed an independent interpretation of an: Plain X-Ray and CT Scan Radiology Impression Discussion of test interpretation with radiology: I have reviewed the radiologist's reading. (Patient) Independent Historian Clinical information obtained from an independent historian. History obtained from or confirmed by: Other (Patient) Prescription Management I considered prescription management with: Pain Medication Discharge Plan Discharge Clinical Impression: Fracture of wrist Patient Disposition: Home, Self-Care Instructions: Wrist Fracture in Adults (ED) Additional Instructions: You will need follow-up with orthopedic surgery next week. Return to the ED immediately for worsening pain, bluish black discoloration of fingers, numbness/tingling, chest pain, shortness of breath, redness, or any other concerning symptoms. EXAMINATION: XR HAND/WRIST, RIGHT CLINICAL INFORMATION: Fall. Fracture? COMPARISON: August 07, 2021. TECHNIQUE: PA, lateral, and oblique views of the right hand and wrist. FINDINGS: There is a cortical disruption through the distal metaphysis of the radius and ulna resulting in dorsal displacement and a 2 cm overriding of the fragments. The metacarpal bones are intact. The phalanges of the digits are intact. XR/XR hand wrist RT IMPRESSION: Acute dorsally displaced and overlapping fractures distal radius and ulna. Electronically signed by: Steven Coreas MD 12/23/2024 03:46 PM [facility] Dictated By: Steven Gan MD Signed By: <Electronically signed by Steven Miles MD in OV> 12/23/24 1546 Prescriptions: New naproxen 500 mg tablet 500 mg PO BID PRN (Reason: pain) 7 Days Qty: 28 0RF acetaminophen [Tylenol] 325 mg tablet 325 mg PO QID PRN (Reason: pain) Qty: 28 0RF No Action naproxen 500 mg tablet 500 mg PO BID Qty: 60 3RF melatonin 5 mg tablet 10 mg PO BEDTIME 30 Days Qty: 60 6RF albuterol sulfate 90 mcg/actuation HFA aerosol inhaler 2 puff inhalation Q6H PRN (Reason: for wheezing) 30 Days Qty: 8.5 6RF ferrous sulfate 325 mg (65 mg iron) tablet 325 mg PO MOWEFR 30 Days Qty: 13 6RF omeprazole 20 mg capsule,delayed release(DR/EC) 20 mg PO DAILY Qty: 90 2RF docusate sodium 100 mg capsule 100 mg PO BID PRN (Reason: for constipation) Qty: 180 1RF psyllium husk 0.4 gram capsule 0.4 g PO BID Qty: 180 2RF ascorbic acid (vitamin C) 250 mg tablet,chewable 500 mg PO .COMPLEX 28 Days Qty: 12 6RF Rx Instructions: 500 mg orally Three days a week (); ropinirole 0.25 mg tablet 0.5 mg PO TID Qty: 180 3RF sennosides [senna] 8.6 mg tablet 17.2 mg PO BEDTIME PRN (Reason: Constipation) 90 Days Qty: 90 6RF sumatriptan succinate 100 mg tablet 100 mg PO .COMPLEX MDD 200mg PRN (Reason: migraine headache) 30 Days Qty: 12 6RF Rx Instructions: 100 mg orally . PRN; 100 mg orally at onset of headache, may repeat in 2 hrs PRN; max 2 tabs per day or 4 tabs/week (may take with Naproxen 440mg or Tylenol 1000mg) acetaminophen 500 mg Tablet 500 mg PO Q4H PRN (Reason: Pain) clonazepam 0.5 mg Tablet 0.5 mg PO BEDTIME Qty: 1 0RF clonazepam 1 mg Tablet 1 mg PO DAILY Qty: 1 0RF mirtazapine 30 mg Tablet 30 mg PO BEDTIME Qty: 30 0RF Rx Instructions: replaces prior dose of 45 mg (DME) walker Misc See Rx Instructions .Route Qty: 1 0RF Rx Instructions: As directed acetaminophen 325 mg capsule 650 mg PO Q6H PRN (Reason: pain) Qty: 20 0RF ibuprofen 400 mg tablet 400 mg PO Q6H PRN (Reason: pain) Qty: 14 0RF loratadine 10 mg tablet 10 mg PO DAILY buspirone 15 mg tablet 15 mg PO TID sertraline 100 mg tablet 200 mg PO DAILY olanzapine 20 mg tablet 20 mg PO BEDTIME prazosin 2 mg capsule 4 mg PO BEDTIME cyanocobalamin (vitamin B-12) 100 mcg tablet 100 mcg PO DAILY cholecalciferol (vitamin D3) 50 mcg (2,000 unit) capsule 50 mcg PO DAILY diclofenac sodium 1 % gel 2 g topical TID PRN (Reason: Pain) amitriptyline 100 mg tablet 100 mg PO BEDTIME pregabalin 150 mg capsule 150 mg PO BID meclizine 25 mg tablet 25 mg PO .COMPLEX Rx Instructions: 25 mg orally every 8 hours as needed; dicyclomine 20 mg tablet 40 mg PO QID Qty: 240 3RF Emgality Pen 120 mg/mL pen injector 240 mg subcut ONCE 30 Days Qty: 2 0RF Rx Instructions: Loading dose: 120 mg subcu injection x2 in alternate sites (total 240 mg). To be followed by maintenance dose of 120 mg subcu q.month. celecoxib [Celebrex] 200 mg capsule 200 mg PO BID 30 Days Qty: 60 3RF budesonide-formoterol [Symbicort] 160-4.5 mcg/actuation HFA aerosol inhaler 2 puff inhalation BID Qty: 10.2 6RF Referrals: [facility] Orthopedic Surgeons [Provider Group] (Wrist fracture) Stand Alone Forms: Work/School Release Interventions: ED Discharge Assessment Last Done: 12/23/24 20:14 Discharge Date/Time: 12/23/24 20:25 Print Language: Belizean
[2024-12-23 16:52] VITALS: BP 109/49; PULSE 72; RESP 18; O2SAT 99
[2024-12-23] MEDS: Lidocaine HCl 2 % MPF 5 ML VIAL INFILTRATI ×2 (16:54)
[2024-12-23] MEDS: fentaNYL citrate/PF 100 MCG/2 ML VIAL 25 MCG IVPUSH (17:20)
[2024-12-23] MEDS: HYDROmorphone HCl 1 MG/ML SYRINGE IVPUSH (17:32)
[2024-12-23 19:24] VITALS: BP 100/54; PULSE 71; RESP 18; TEMP 36.5; O2SAT 96
[2024-12-23 20:14] VITALS: BP 100/54; PULSE 71; RESP 18; TEMP 36.5; O2SAT 96
[2024-12-23] MEDS: Ondansetron ODT 4 MG TAB.RAPDIS TRANSLINGU (20:24)
== END 2024-12-23 20:25 | disposition home or self-care (01) ==
PROVIDERS: Emergency Provider Internal Medicine; PCP Internal Medicine
DX: S62.101A Fracture of unspecified carpal bone, right wrist, initial encounter for closed fracture (principal); M25.531 Pain in right wrist; R10.2 Pelvic and perineal pain; M54.2 Cervicalgia; R11.2 Nausea with vomiting, unspecified; R51.9 Headache, unspecified; M25.511 Pain in right shoulder; M25.561 Pain in right knee; W00.0XXA Fall on same level due to ice and snow, initial encounter; Y93.01 Activity, walking, marching and hiking; Y92.007 Garden or yard of unspecified non-institutional (private) residence as the place of occurrence of the external cause; Y99.8 Other external cause status; Z79.899 Other long term (current) drug therapy
CPT/HCPCS: 29125; 70450; 72125; 73030; 73110; 73130; 73521; 73564; 96361; 96374; 96375; 99283; 99284; J1171; J2003; J3010

== ENCOUNTER → 2024-12-23 14:57 | Outpatient (BNV) | payer MEDICAID, SELFPAY | PROVIDERS: Emergency Provider Emergency Medicine; PCP Internal Medicine; Visit Provider Radiology Diagnostic Radiology | DX: Z47.89 Encounter for other orthopedic aftercare (principal); S52.531A Colles' fracture of right radius, initial encounter for closed fracture; M54.2 Cervicalgia; S09.90XA Unspecified injury of head, initial encounter; S80.911A Unspecified superficial injury of right knee, initial encounter; Q76.0 Spina bifida occulta; S49.91XA Unspecified injury of right shoulder and upper arm, initial encounter | CPT/HCPCS: 70450; 72125; 73030; 73110; 73130; 73521; 73564 ==

== ENCOUNTER 2024-12-27 13:55 | Outpatient (REF) | payer MEDICAID, SELFPAY ==
--- NOTE | ~2024-12-27 | XR_ITS ---
EXAMINATION: XR CHEST XR RIBS RT CLINICAL INFORMATION: CP sp fall/ right pleuritic CP. COMPARISON: None available. TECHNIQUE: 2 views of the chest were obtained. 4 views of the left ribs were obtained. FINDINGS: The cardiac, hilar, and mediastinal contours are normal. The lungs are clear bilaterally. There is no pneumothorax or pleural effusion. There is no focal osseous or soft tissue abnormality. No definite displaced rib fractures or focal rib lesions. Surgical clips right breast and right axilla. XR/XR chest 2V IMPRESSION: 1. Normal chest. No acute rib abnormalities. Electronically signed by: Mathieu Lepe MD 12/27/2024 02:33 PM EST
--- NOTE | ~2024-12-27 | XR_ITS ---
EXAMINATION: XR CHEST XR RIBS RT CLINICAL INFORMATION: CP sp fall/ right pleuritic CP. COMPARISON: None available. TECHNIQUE: 2 views of the chest were obtained. 4 views of the left ribs were obtained. FINDINGS: The cardiac, hilar, and mediastinal contours are normal. The lungs are clear bilaterally. There is no pneumothorax or pleural effusion. There is no focal osseous or soft tissue abnormality. No definite displaced rib fractures or focal rib lesions. Surgical clips right breast and right axilla. XR/XR ribs RT 2V IMPRESSION: 1. Normal chest. No acute rib abnormalities. Electronically signed by: Mathieu Lepe MD 12/27/2024 02:33 PM EST RP
--- OUTSIDE RECORDS SUMMARY | 2024-12-27 17:24 | XMS_ITS | Encounter Summary ---
Author Organization [employer] [facility] Address [address] [place] [address] [address] [place] [address] Care Team Providers Care Interventional Nurse Name Role Phone Umm Coley MD Primary Care Provider + Encounter Details Date Type Department Care Team (Latest Contact Info) Description 11/14/[address] [facility] CONVERSIONS Dental, Provider, [...] Description 03/08/2025 10:00 AM EDT Office Visit [facility] [address] [place] [address] Elzbieta, Mariangel [address] [place] [address] documented as of this encounter Visit Diagnoses Not on filedocumented in this encounter Care Teams Interventional Nurse Relationship Specialty Start Date End Date Umm Coley MD [address] [place] [address] PCP - General Family Medicine 10/31/16 Eva Nunez Training Technician 04/05/24 07/06/24 [facility] 05/11/24 11/17/24 [facility] 11/14/24 documented as of this encounter
--- OUTSIDE RECORDS SUMMARY | 2024-12-27 17:24 | XMS_ITS | Encounter Summary ---
Author Organization [employer] [facility] Address [address] [place] [address] [address] [place] [address] Care Team Providers Care Office Machine Embossograph Operator Name Role Phone Umm Coley MD Primary Care Provider + Encounter Details Date Type Department Care Team (Latest Contact Info) Description 09/16/2022 Abstract [facility] [address] [place] [address] Elzbieta, Mariangel [address] [place] [address] documented as of this encounter Visit Diagnoses Not on filedocumented in this encounter Care Teams Office Machine Embossograph Operator Relationship Specialty Start Date End Date Umm Coley MD [address] [place] [address] PCP - General Family Medicine 10/31/16 Eva Nunez [employer] Social Worker 04/05/24 07/06/24 [facility] 05/11/24 11/17/24 [facility] 11/14/24 documented as of this encounter
--- OUTSIDE RECORDS SUMMARY | 2024-12-27 17:24 | XMS_ITS | Encounter Summary ---
Author Organization [employer] [facility] Address [address] [place] [address] [address] [place] [address] Care Team Providers Care Hog Counter Name Role Phone Umm Coley MD Primary Care Provider + Reason for Visit * Reason Comments Med Refill Encounter Details Date Type Department Care Team (Late st Contact Info) Description 06/10/2023 Refill [facility] [address] [place], [place] [phone] Yenny Morris MD [address] [place], [place] [phone] Rash Social History Tobacco Use Types Packs/Day [...] Description 03/08/2025 10:00 AM EDT Office Visit [facility] [address] [place], [place] [phone] Mariangel Ruff [address] [place] [address] documented as of this encounter Visit Diagnoses Diagnosis Rash Rash and other nonspecific skin eruption documented in this encounter Additional Health Concerns Assessment Noted Time PHQ-9 Depression Total Score: 12 023 1:58 PM EDT documented as of this encounter Care Teams Hog Counter Relationship Specialty Start Date End Date Umm Coley MD [address] [place] [id number] PCP - General Family Medicine 10/31/16 Eva Nunez Electricity Trader 04/05/24 07/06/24 [facility] 05/11/24 11/17/24 [facility] 11/14/24 documented as of this encounter
--- OUTSIDE RECORDS SUMMARY | 2024-12-27 17:24 | XMS_ITS | Encounter Summary ---
Author Organization [employer] Address [address] [facility] 7t [place] [address] Care Team Providers Care Chemistry Laboratory Technician Name Role Phone Umm Coley MD Primary Care Provider + Reason for Visit * Reason Onset Date Comments FYI. 12/08/2024 Encounter Details Date Type Department Care Team ([facility] st Contact Info) Description 12/08/2024 Telephone [facility] MEDICINE [address] [place], [place] [phone] Umm Coley MD [address] [place], [place] [phone] FYI. Social History Tobacco Use Types Packs/Day [...] AM EST TC returned to Mir Almonte [phone] in regards to below message. Tyrel did [...] contact Tyrel with any further questions at [phone]. documented in this encounter Plan of Treatment Upcoming Encounters Date Type Department Care Team (Late st Contact Info) Description 03/08/2025 10:00 AM EDT Office Visit [facility] ADULT DENTAL [address] [place], [place] [phone] Trino Ruffaris [address] [place] [address] documented as of this encounter Visit Diagnoses Not on filedocumented in this encounter Additional Health Concerns Assessment Noted Time PHQ-9 Depression Total Score: 10 024 9:17 AM EDT documented as of this encounter Care Teams Chemistry Laboratory Technician Relationship Specialty Start Date End Date Umm Coley MD [address] [place] [phone] PCP - General Family Medicine 10/31/16 [facility] 11/14/24 documented as of this encounter
--- OUTSIDE RECORDS SUMMARY | 2024-12-27 17:24 | XMS_ITS | Encounter Summary ---
Author Organization [employer] Address [address] [facility] 7t [place] [address] Care Team Providers Care Terrazzo Helper Name Role Phone Umm Coley MD Primary Care Provider + Reason for Visit * Reason Onset Date Comments Appointment Request 12/26/2024 Encounter Details Date Type Department Care Team ([facility] st Contact Info) Description 12/26/2024 Telephone [facility] MEDICINE [address] [place], [place] [phone] Umm Coley MD [address] [place], [place] [phone] Appointment Request Social History Tobacco Use Types [...] Telephone Encounter - Gisela Reynoso RN - 12/26/2024 1:08 PM EST Incoming call from patient in regards to below message. Patient advised appointment will need to bein person because the provider needs to look at her tongue to evaluate the whiteness which cannotbe done over the phone. Patient reports she is unable to dress herself d/t dorsal radial fracture and ulnar fracture. RN inquired if patient can have LITHOGRAPHIC CAMERA OPERATOR assist her in dressing in order for patient to be able to come to [facility] to be evaluated. Patient verbalized understanding and reports she will havePCA assist her. Patient reminded of appointment time. Patient to f/u PRN. * Telephone Encounter - Gisela Reynoso RN - 12/26/2024 10:30 AM EST TC placed to [phone] in regards to below message. Patient did not answer, RN left requesting CB to red team nurses. Patient to f/u PRN. * Telephone Encounter - Ronny Farrell - 12/26/2024 8:08 AM EST TC from pt requesting to see if its possible To do a Telephone Visit with PCP for Appt on 12/27/24 due to her not being able to come in at that time tomorrow. Contact pt at [phone] documented in this encounter Plan of Treatment Upcoming Encounters Date Type Department Care Team (Late st Contact Info) Description 03/08/2025 10:00 AM EDT Office Visit [facility] ADULT DENTAL [address] [place] [address] Elzbieta Mariangel [address] [place] [address] documented as of this encounter Visit Diagnoses Not on filedocumented in this encounter Additional Health Concerns Assessment Noted Time PHQ-9 Depression Total Score: 10 024 9:17 AM EDT documented as of this encounter Care Teams Terrazzo Helper Relationship Specialty Start Date End Date Umm Coley MD [address] [place] [address] PCP - General Family Medicine 10/31/16 [facility] 11/14/24 documented as of this encounter
--- OUTSIDE RECORDS SUMMARY | 2024-12-27 17:24 | XMS_ITS | Encounter Summary ---
Author Organization [employer] Address [address] [facility] 7t [place] [address] Care Team Providers Care Geotechnical Laboratory Technician Name Role Phone Umm Coley MD Primary Care Provider + Reason for Visit * Reason Comments Medication Problem Encounter Details Date Type Department Care Team ([facility] st Contact Info) Description 12/08/2024 12:15 PM EST Office Visit [facility] MEDICINE [address] [place], [place] [phone] Umm Coley MD [address] [place], [place] [phone] Recurrent falls (Primary Dx); Neuropathy of both [...] the nurse that she had followed to [facility] wanted her to sign some [facility] documents (reportedly to provide services?) that she didn't feel comfortable signing and didn't offer further explanation so the nurse walked out of the house and she was discharged from the [facility]. She's concerned that she only has med [...] comfortable taking meds by herself and her RECONDITIONING ASSOCIATE doesn't know how to put them on [...] we can organize the medications. Pt and RECONDITIONING ASSOCIATE agreed with the plan of care. POC discussed with team nurse and supervisor aluminum fabrication. Neuropathy of both feet Generalized anxiety disorder [...] we can organize the medications. Pt and RECONDITIONING ASSOCIATE agreed with the plan of care. POC discussed with team nurse and supervisor aluminum fabrication. * Addendum Note - Umm Coley MD - 12/08/2024 12:15 PM ESTAddended by: UMM COLEY on: 12/12/2024 12:28 PM Modules accepted: Level of Service documented in this encounter Plan of Treatment Upcoming Encounters Date Type Department Care Team (Late st Contact Info) Description 03/08/2025 10:00 AM EDT Office Visit [facility] ADULT DENTAL [address] [place] [address] Elzbieta, Mariangel [address] [place] [address] documented as of this encounter Visit Diagnoses Diagnosis Recurrent falls- Primary Neuropathy of both feet Generalized anxiety disorder documented in this encounter Additional Health Concerns Assessment Noted Time PHQ-9 Depression Total Score: 10 024 9:17 AM EDT documented as of this encounter Care Teams Geotechnical Laboratory Technician Relationship Specialty Start Date End Date Umm Coley MD [address] [place] [address] PCP - General Family Medicine 10/31/16 [facility] 11/14/24 documented as of this encounter
--- OUTSIDE RECORDS SUMMARY | 2024-12-27 17:24 | XMS_ITS | Encounter Summary ---
Author Organization [employer] [facility] Address [address] [place] [address] 7t [place] [address] Care Team Providers Care Cigar Wrapper Tender Automatic Name Role Phone Umm Coley MD Primary Care Provider + Reason for Visit * Reason Comments Med Refill Encounter Details Date Type Department Care Team (Late st Contact Info) Description 08/01/2023 Refill [facility] MEDICINE [address] [place], [place] [phone] Umm Coley MD [address] [place], [place] [phone] Social History Tobacco Use Types Packs/Day Years [...] [facility] ADULT DENTAL [address] [place], [place] [phone] Mariangel Ruff [address] [place] [address] documented as of this encounter Visit Diagnoses Not on filedocumented in this encounter Additional Health Concerns Assessment Noted Time PHQ-9 Depression Total Score: 12 023 1:58 PM EDT documented as of this encounter Care Teams Cigar Wrapper Tender Automatic Relationship Specialty Start Date End Date Umm Coley MD [address] [place] [address] PCP - General Family Medicine 10/31/16 Eva Nunez Machinist General 04/05/24 07/06/24 [facility] 05/11/24 11/17/24 [facility] 11/14/24 documented as of this encounter
--- OUTSIDE RECORDS SUMMARY | 2024-12-27 17:24 | XMS_ITS | Encounter Summary ---
Author Organization [employer] Address [address] [facility] 7t [place] [address] Care Team Providers Care Custom Feed Mill Operator Name Role Phone Umm Coley MD Primary Care Provider + Encounter Details Date Type Department Care Team (Late st Contact Info) Description 08/23/2024 Orders Only [facility] ADULT DENTAL [address] [place], [place] [phone] Johnny Gonzalez, DMD [address] [place], [place] [phone] Social History Tobacco Use Types Packs/Day Years [...] Description 03/08/2025 10:00 AM EDT Office Visit [facility] ADULT DENTAL [address] [place] [address] ElzbietaMariangel [address] [place] [address] documented as of this encounter Visit Diagnoses Not on filedocumented in this encounter Additional Health Concerns Assessment Noted Time PHQ-9 Depression Total Score: 10 024 9:17 AM EDT documented as of this encounter Care Teams Custom Feed Mill Operator Relationship Specialty Start Date End Date Umm Coley MD [address] [place] [address] PCP - General Family Medicine 10/31/16 [facility] 05/11/24 11/17/24 [facility] 11/14/24 documented as of this encounter
--- OUTSIDE RECORDS SUMMARY | 2024-12-27 17:24 | XMS_ITS | Encounter Summary ---
Author Organization [employer] Address [address] [facility] 7t [place] [address] Care Team Providers Care Bonbon Dipper Name Role Phone Umm Coley MD Primary Care Provider + Reason for Visit * Reason Onset Date Comments Chart prep 12/07/2024 Encounter Details Date Type Department Care Team ([facility] st Contact Info) Description 12/07/2024 Telephone [facility] MEDICINE [address] [place], [place] [phone] Juana Connor MA Chart prep Social History [...] Description 03/08/2025 10:00 AM EDT Office Visit [facility] ADULT DENTAL [address] [place] [address] Trino Ruffaris [address] [place] [address] documented as of this encounter Visit Diagnoses Not on filedocumented in this encounter Additional Health Concerns Assessment Noted Time PHQ-9 Depression Total Score: 10 024 9:17 AM EDT documented as of this encounter Care Teams Bonbon Dipper Relationship Specialty Start Date End Date Umm Coley MD [address] [place] [address] PCP - General Family Medicine 10/31/16 [facility] 11/14/24 documented as of this encounter
--- OUTSIDE RECORDS SUMMARY | 2024-12-27 17:24 | XMS_ITS | Encounter Summary ---
Author Organization [employer] Address [address] [facility] 7t [place] [address] Care Team Providers Care Cognos Consultant Name Role Phone Umm Coley MD Primary Care Provider + Encounter Details Date Type Department Care Team (Late st Contact Info) Description 11/03/2022 Orders Only [facility] MEDICINE [address] [place], [place] [phone] Umm Coley MD [address] [place], [place] [phone] Osteopenia after menopause (Primary Dx) Social History [...] Description 03/08/2025 10:00 AM EDT Office Visit [facility] ADULT DENTAL [address] [place], [place] [phone] Mariangel Ruff [address] [place], [place] [phone] Scheduled Orders Name Type Priority Associated Diagnoses Orde r Schedule Vitamin D, 25-Hydroxy, Total, Immunoassay Lab Routine Osteopenia after menopause Expected: 11/03/2022 (Approximate), Expires: 11/03/2023 PTH, Intact (ICMA) And Ionized Calcium Lab Routine Osteopenia after menopause Expected: 11/03/2022 (Approximate), Expires: 11/03/2023 documented as of this encounter Visit Diagnoses Diagnosis Osteopenia after menopause- Primary documented in this encounter Care Teams Cognos Consultant Relationship Specialty Start Date End Date Umm Coley MD [address] [place] [address] PCP - General Family Medicine 10/31/16 Eva Nunez Industrial Organization Manager 04/05/24 07/06/24 [facility] 05/11/24 11/17/24 [facility] 11/14/24 documented as of this encounter
--- OUTSIDE RECORDS SUMMARY | 2024-12-27 17:24 | XMS_ITS | Clinical Summary ---
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 ?? -The right thyroid is diminutive or possibly absent. ? LUNG APICES: ?? -Minimal apical scarring right greater than left. Lung apices otherwise ?? clear. ? CT/CT cervical spine wo IV con ?? IMPRESSION: ?? 1. No CT evidence of acute cervical spine fracture or injury. ? Electronically signed by: ??Mathieu Lepe MD ??12/23/2024 04:54 PM EST RP ? Dictated By: ?Mathieu Lepe MD ? Signed By: ?<Electronically signed by Mathieu Lepe MD in OV> ?12/23/24 1654 ? DD/ 1529 ? TD/TT: 12/23/24 1642 ? Mortgage Loan Processor: ? Procedure Note Adalgisa, Image - 12/23/[address] [address] [address] Scan Report Signed Patient: Diana Myles LMR#: [id number] 8 : 1965Acct:[id number] Age/Sex: 59 / FADM Date: 12/23/24 Loc: HO.ED Attending Dr: Ordering Physician: Diomedes Shultz Date of Service: 12/23/24 Procedure(s): CT cervical spine wo IV con Accession Number(s): [id number] cc: Diomedes Shultz; Shalonda Coley MD Report Number: [id number]: Total DLP = 821.00 mGy-cm EXAMINATION: CT CERVICAL SPINE WITHOUT CONTRAST CLINICAL INFORMATION: Fall, neck pain COMPARISON: 02/09/2021. TECHNIQUE: Spiral CT imaging of the cervical spine performed in axial plane without contrast. Multiplanar reformatted images were constructed from the axial data set. This CT examination was performed using dose optimization techniques as appropriate, variously including the following: *Automated exposure control *Adjustment of mA and/or kV according to patient size (this includes techniques or standardized protocols for targeted exams where dose is matched to indication/reason for exam; i.e. extremities or head) *Use of iterative reconstruction technique FINDINGS: CORONAL ALIGNMENT: -Normal SAGITTAL ALIGNMENT: -Straightening of the lordosis. No subluxation. C1-C2 AND CRANIOCERVICAL JUNCTION: -Intact and normally aligned. VERTEBRAL BODIES AND FACETS: -There is no fracture, compression deformity, traumatic subluxation, or suspicious bone lesion. -There is normal facet alignment bilaterally. DISCS: -Preserved. PREVERTEBRAL AND PARAVERTEBRAL SOFT TISSUES: -No pre or paravertebral soft tissue abnormalities. -The right thyroid is diminutive or possibly absent. LUNG APICES: -Minimal apical scarring right greater than left. Lung apices otherwise clear. CT/CT cervical spine wo IV con IMPRESSION: 1. No CT evidence of acute cervical spine fracture or injury. Electronically signed by: Mathieu Lepe MD 12/23/2024 04:54 PM [facility] Dictated By: Mathieu Lepe MD Signed By: <Electronically signed by Mathieu Lepe MD in OV> 12/23/24 1654 DD/ 1529 TD/TT: 12/23/24 1642 Mortgage Loan Processor: [facility] External Provider IMG CT PROCEDURES Final Result * XR Shoulder 2+ Views Right (12/23/2024 3:09 PM EST) Anatomical Region Laterality Modality Upper Extremities, Shoulder Right Radi ographic Imaging 12/23/2024 3:09 PM EST Narrative 12/23/2024 3:43 PM EST ? [facility] ?[address] ?[place], [place] [address] ?XRay Report ? Signed ? Patient: Myles,Diana L ?MR#: [id number] ?? 8 ? : 1965 ?Acct:[id number] ? Age/Sex: 59 / F ?ADM Date: 12/23/24 ? Loc: HO.ED ? Attending Dr: ? Ordering Physician: Diomedes Shultz ?? Date of Service: 12/23/24 ?? Procedure(s): XR shoulder RT min 2V ?? Accession Number(s): [id number] ? cc: Diomedes Shultz; Shalonda Coley MD ? EXAMINATION: ?? XR SHOULDER, RIGHT ? CLINICAL INFORMATION: ?? Fall ? COMPARISON: ?? February 11, 2023. ? TECHNIQUE: ?? AP external rotation, Grashey, scapular Y, and axillary views of the ?? right shoulder. ? FINDINGS: ?? No acute cortical disruption or malalignment. Vascular clips in the ?? right axillary region. No lytic or blastic lesions. ? XR/XR shoulder RT min 2V ?? IMPRESSION: ?? No acute fracture or dislocation. ? Electronically signed by: ??Steven Coreas MD ??12/23/2024 03:40 PM ?? EST RP ? Dictated By: ?Steven Gan MD ? Signed By: ?<Electronically signed by Steven Gary MD in OV> ? 12/23/24 1540 ? DD/ 1509 ? TD/TT: 12/23/24 1533 ? Mortgage Loan Processor: ? Procedure Note Adalgisa, Image - 12/23/[address] [address] XRay Report Signed Patient: Diana Myles LMR#: [id number] 8 : 1965Acct:[id number] Age/Sex: 59 / FADM Date: 12/23/24 Loc: HO.ED Attending Dr: Ordering Physician: Diomedes Shultz Date of Service: 12/23/24 Procedure(s): XR shoulder RT min 2V Accession Number(s): [id number] cc: Diomedes Shultz; Shalonda Coley MD EXAMINATION: XR SHOULDER, RIGHT CLINICAL INFORMATION: Fall COMPARISON: February 11, 2023. TECHNIQUE: AP external rotation, Grashey, scapular Y, and axillary views of the right shoulder. FINDINGS: No acute cortical disruption or malalignment. Vascular clips in the right axillary region. No lytic or blastic lesions. XR/XR shoulder RT min 2V IMPRESSION: No acute fracture or dislocation. Electronically signed by: Steven Coreas MD 12/23/2024 03:40 PM EST RP Dictated By: Steven Gan MD Signed By: <Electronically signed by Steven Gary MDin OV> 12/23/24 1540 DD/ 1509 TD/TT: 12/23/24 1533 Mortgage Loan Processor: [facility] External Provider IMG XR PROCEDURES Final Result * XR Hips Bilateral with Pelvis 1 view (12/23/2024 2:57 PM EST) Anatomical Region Laterality Modality Lower Extremities, Hip Bilateral Radiograp hic Imaging 12/23/2024 2:57 PM EST Narrative 12/23/2024 3:45 PM EST ? [facility] ?[address] ?[place] [address] ?XRay Report ? Signed ? Patient: Myles,Diana L ?MR#: [id number] ?? 8 ? : 1965 ?Acct:[id number] ? Age/Sex: 59 / F ?ADM Date: 02/21/25 ? Loc: HO.ED ? Attending Dr: ? Ordering Physician: Diomedes Shultz ?? Date of Service: 12/23/24 ?? Procedure(s): XR hip BI w PEL1V ?? Accession Number(s): [id number] ? cc: Diomedes Shultz; Shalonda Coley MD ? EXAMINATION: ?? XR BILATERAL HIPS WITH AP PELVIS ? CLINICAL INFORMATION: ?? fall ? COMPARISON: ?? July 19, 2024. ?? February 05, 2024. ? TECHNIQUE: ?? AP view of the pelvis and single views of each hip were obtained. ? FINDINGS: ?? Bony pelvis is intact. Coxofemoral joints are intact with normal ?? alignment. Spina bifida occulta S1, congenital.. ? XR/XR hip BI w PEL1V ?? IMPRESSION: ?? No acute fracture or dislocation. Negative. ? Electronically signed by: ??Steven Coreas MD ??12/23/2024 03:43 PM ?? EST RP ? Dictated By: ?Steven Gan MD ? Signed By: ?<Electronically signed by Steven Gary MD in OV> ? 12/23/24 1543 ? DD/ 1457 ? TD/TT: 12/23/24 1533 ? Mortgage Loan Processor: ? Procedure Note Howardkatelynjadenjose antonio, Image - 12/23/2024 [place] [address] XRay Report Signed Patient: Diana Mylse LMR#: [id number] 8 : 1965Acct:[id number] Age/Sex: 59 / FADM Date: 12/23/24 Loc: HO.ED Attending Dr: Ordering Physician: Diomedes Shultz Date of Service: 12/23/24 Procedure(s): XR hip BI w PEL1V Accession Number(s): [id number] cc: Diomedes Shultz; Shalonda Coley MD EXAMINATION: XR BILATERAL HIPS WITH AP PELVIS CLINICAL INFORMATION: fall COMPARISON: July 19, 2024. February 05, 2024. TECHNIQUE: AP view of the pelvis and single views of each hip were obtained. FINDINGS: Bony pelvis is intact. Coxofemoral joints are intact with normal alignment. Spina bifida occulta S1, congenital.. XR/XR hip BI w PEL1V IMPRESSION: No acute fracture or dislocation. Negative. Electronically signed by: Steven Coreas MD 12/23/2024 03:43 PM EST RP Dictated By: Steven Gan MD Signed By: <Electronically signed by Steven Gary MDin OV> 12/23/24 1543 DD/ 1457 TD/TT: 12/23/24 1533 Mortgage Loan Processor: [facility] External Provider IMG XR PROCEDURES Final Result * XR Knee 4+ Views Right (12/23/2024 2:57 PM EST) Anatomical Region Laterality Modality Lower Extremities, Knee Right Radiogra phic Imaging 12/23/2024 2:57 PM EST Narrative 12/23/2024 3:44 PM EST ? [facility] ?[address] ?[place] [address] ?XRay Report ? Signed ? Patient: Diana Myles ?MR#: [id number] ?? 8 ? : 1965 ?Acct:[id number] ? Age/Sex: 59 / F ?ADM Date: 12/23/24 ? Loc: HO.ED ? Attending Dr: ? Ordering Physician: Diomedes Shultz ?? Date of Service: 12/23/24 ?? Procedure(s): XR knee RT 4V ?? Accession Number(s): [id number] ? cc: Diomedes Shultz; Shalonda Coley MD ? EXAMINATION: ?? XR KNEE, RIGHT ? CLINICAL INFORMATION: ?? Fall ? COMPARISON: ?? None available. ? TECHNIQUE: ?? Four views of the right knee. ? FINDINGS: ?? No acute cortical disruption or malalignment. No suprapatellar bursa ?? joint effusion. No lytic or blastic lesions. Limited frontal view. ? XR/XR knee RT 4V ?? IMPRESSION: ?? No acute fracture or dislocation. ? Electronically signed by: ??Steven Coreas MD ??12/23/2024 03:41 PM ?? EST RP ? Dictated By: ?Steven Gan MD ? Signed By: ?<Electronically signed by Steven Gary MD in OV> ? 12/23/24 1541 ? DD/ 1457 ? TD/TT: 12/23/24 1533 ? Mortgage Loan Processor: ? Procedure Note Adalgisa, Chin - 12/23/[address] [address] XRay Report Signed Patient: Diana Myles LMR#: [id number] 8 : 1965Acct:[id number] Age/Sex: 59 / FADM Date: 12/23/24 Loc: HO.ED Attending Dr: Ordering Physician: Diomedes Shultz Date of Service: 12/23/24 Procedure(s): XR knee RT 4V Accession Number(s): [id number] cc: Diomedes Shultz; Shalonda Coley MD EXAMINATION: XR KNEE, RIGHT CLINICAL INFORMATION: Fall COMPARISON: None available. TECHNIQUE: Four views of the right knee. FINDINGS: No acute cortical disruption or malalignment. No suprapatellar bursa joint effusion. No lytic or blastic lesions. Limited frontal view. XR/XR knee RT 4V IMPRESSION: No acute fracture or dislocation. Electronically signed by: Steven Coreas MD 12/23/2024 03:41 PM EST Dictated By: Steven Gan MD Signed By: <Electronically signed by Steven Gary MDin OV> 12/23/24 1541 DD/ TD/TT: 12/23/24 1533 Mortgage Loan Processor: us [facility] External Provider IMG XR PROCEDURES Final Result * MR Knee w/o Contrast Left (12/06/2024 6:06 PM EST) Anatomical Region Laterality Modality Magnetic Resonan ce 12/06/2024 6:06 PM EST Narrative 12/08/2024 8:31 AM EST ? [facility] ?[address] ?[place] [address] ? Magnetic Resonance Report ? Signed ? Patient: Myles,Diana L ?MR#: [id number] ?? 8 ? : 1965 ?Acct:[id number] ? Age/Sex: 59 / F ?ADM Date: 12/06/24 ? Loc: HO.MRI ? Attending Dr: Denilson Forman PA-C ? Ordering Physician: Denilson Forman PA-C ?? Date of Service: 12/06/24 ?? Procedure(s): MR knee LT wo con ?? Accession Number(s): [id number] ? cc: Shalonda Coley MD; Denilson Forman [...] 0829 ? DD/ 1806 ? TD/TT: 12/06/24 181 ? Mortgage Loan Processor: ? Procedure Note Adalgisa, Image - 12/08/[address] [address] Magnetic Resonance Report Signed Patient: Diana Myles LMR#: [id number] 8 : 1965Acct:[id number] Age/Sex: 59 / FADM Date: 12/06/24 Loc: HO.MRI Attending Dr: Denilson Forman PA-C Ordering Physician: Denilson Forman PA-C Date of Service: 12/06/24 Procedure(s): MR knee LT wo con Accession Number(s): [id number] cc: Shalonda Coley MD; Deinlson Forman PA-C EXAMINATION: MR KNEE WITHOUT CONTRAST, [...] Lepe MD in OV> 12/08/24 0829 DD/ 05 TD/TT: 12/06/24 181 Mortgage Loan Processor: [facility] External Provider IMG MRI PROCEDURES Final Result * BI Mammogram Screening Tomosynthesis Bilateral (11/29/2024 8:45 AM EST) Anatomical Region Laterality Modality Breast Bilateral Mammography 11/29/2024 8:45 AM EST Narrative 12/07/2024 3:35 PM EST ? [facility] ? [address] ?[place] [address] ? Mammography Report ? Signed ? Patient: Myles,Diana L ?MR#: [id number] ?? 8 ? : 1965 ?Acct:[id number] ? Age/Sex: 59 / F ?ADM Date: 11/29/ ? Loc: HO.MAMMO ? Attending Dr: Shalonda Coley MD ? Ordering Physician: Shalonda Coley MD ?Results: 2Be ?? nign Findings ? Date of Service: 11/29/ ?Follow Up: 1 Year From Orig ?? inal Mammogram ? Procedure(s): MM tomosynthesis screening BI ?? Accession Number(s): [id number] ? cc: Shalonda Coley MD ? EXAMINATION: [...] DD/ 0845 ? TD/TT: 11/29/24 0915 ? Mortgage Loan Processor: ? Procedure Note Adalgisa, Image - 12/07/2024 [facility] [address] [place] [address] Mammography Report Signed Patient: Diana Myles LMR#: [id number] 8 : 1965Acct:[id number] Age/Sex: 59 / FADM Date: 11/29/24 Loc: HO.MAMMO Attending Dr: Shalonda Coley MD Ordering Physician: Shalonda Coley MDResults: 2Be nign Findings Date of Service: 11/29/24Follow Up: 1 Year From [facility] Mammogram Procedure(s): MM tomosynthesis screening BI Accession Number(s): [id number] cc: Shalonda Coley MD EXAMINATION: MM SCREENING [...] by: Chaparrita Lyn DO 12/07/2024 03:32 PM EST Dictated By: Chaparrita Lyn DO Signed By: <Electronically signed by Chaparrita Lyn DO in OV> 12/07/24 1532 DD/ 0845 TD/TT: 11/29/24 0915 Mortgage Loan Processor: Shalonda Coley MD IMG BI PROCEDURES Edited Result - Final * POCT Rapid RSV ROJAS ID NOW (11/10/2024 2:01 PM EST) [facility] RSV Rapid Ag POC Negative Negative Swab 11/10/2024 2:01 PM EST Shalonda Coley MD POINT OF CARE TEST ENTER /EDIT ORDERABLES Final Result * POCT Rapid Influenza B ROJAS ID NOW (11/10/2024 2:01 PM EST) [facility] Influenza B Negative Negative, Indeterminate [facility] Swab 11/10/2024 2:01 PM EST Shalonda Coley MD POINT OF CARE TEST ENTER /EDIT ORDERABLES Final Result Performing Organization Address City/[facility]/ZIP Co de Phone Number [facility] [address] [place] [phone] * POCT Rapid Influenza A ROJAS ID NOW (11/10/2024 2:01 PM EST) [facility] Influenza A Negative Negative, Indeterminate [facility] Swab 11/10/2024 2:01 PM EST Shalonda Coley MD POINT OF CARE TEST ENTER /EDIT ORDERABLES Final Result Performing Organization Address City/[facility] Co de Phone Number [facility] [address] [place] [phone] * POCT Rapid Covid-19 BinaxNOW (11/10/2024 2:01 PM EST) [facility] Rapid COVID Ag Negative Swab 11/10/2024 2:01 PM EST Shalonda Coley MD POINT OF CARE TEST ENTER /EDIT ORDERABLES Final Result * (ABNORMAL) Hm Colonoscopy (07/30/2023) [facility] Colonoscopy Abnormal( A) Normal [facility] Comment:SSL polyp Shalonda Coley MD HEALTH MAINTENANCE Final Result [facility] [address] [place] [phone] [phone] * Thinprep PAP and HPV nRNA E6/E7 (10/08/2022 9:30 AM EST) Clinical Information: None given [employer] [facility] LMP: NONE GIVEN [employer] [facility] Prev. PAP: NONE GIVEN [employer] [facility] Prev. BX: NONE GIVEN [employer] [facility] SOURCE: None given [facility] Statement Of Adequacy: SATISFACTORY FOR EVALUATION Age and/or menstrual status not provided [facility] Interpretation/Re sult: [facility] Comment: Negative for intraepithelial lesion or malignancy. Atrophic pattern; predominantly parabasal cells Home Health Cna: [employer] Comment: DMM, CT(ASCP) CT screening location: [address] ??[address] [facility] Cna: [employer] Comment: MAA, CT(ASCP) CT screening location: [address] ??[address] (Always Message) [facility] Comment: EXPLANATORY NOTE: The Pap is a [...] HPV nRNA E6/E7 Not Detected Not Detected [employer] Comment: Methodology: [employer]-Mediated Amplification This assay detects E6/E7 viral messenger RNA (mRNA) from 14 high-risk HPV types (16,18,31,33,35,39,45,51,52,56,58,59,66,68). Cervical sources are required for HPV testing. If a vaginal source from a patient who has had a total hysterectomy with removal of cervix was submitted, please contact the testing laboratory for alternative testing options. For additional information, please refer to http://education.Digiboo.UserTesting/faq/HOG886r9 (This link if provided for information/ educational purposes only.) 10/08/2022 9:30 AM EST 10/10/2022 1:07 AM EST Narrative [facility] - 10/14/2022 7:08 PM EST FASTING: UNKNOWN us Shauna Matamoros [facility] [facility] PATHOLOGY ORDERABLES Final Result Performing Organization Address City/[facility]/ZIP Co de Phone Number [facility] [address], [place] [phone] [employer] [facility] [address], [place] [address] * HIV AB/AG (04/30/2022 11:28 AM EDT) HIV AB/AG Nonreactive Nonreactive [facility] Comment: HIV-1 p24 Ag and/or [...] detection of this assay. ?? 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
--- OUTSIDE RECORDS SUMMARY | 2024-12-27 17:24 | XMS_ITS | Encounter Summary ---
Author Organization [employer] Address [address] [facility] [address] [place] [address] Care Team Providers Care Lease Out Worker Name Role Phone Umm Coley MD Primary Care Provider + Reason for Visit * Reason Onset Date Comments Appointment Request 12/05/2024 Encounter Details Date Type Department Care Team ([facility] st Contact Info) Description 12/05/2024 Telephone [facility] [address], [place] [phone] Umm Coley MD [address], [place] [phone] Appointment Request Social History Tobacco Use Types [...] 11:01 AM EST TC placed to patient [phone] via [employer] ([employer] # [id number]). Patient reports she would like an appointment [...] give any more information. Contact pt at [phone] documented in this encounter Plan of Treatment Upcoming Encounters Date Type Department Care Team (Late st Contact Info) Description 03/08/2025 10:00 AM EDT Office Visit [facility] [address] [place] [address] Mariangel Ruff [address] [place] [phone] documented as of this encounter Visit Diagnoses Not on filedocumented in this encounter Additional Health Concerns Assessment Noted Time PHQ-9 Depression Total Score: 10 024 9:17 AM EDT documented as of this encounter Care Teams Lease Out Worker Relationship Specialty Start Date End Date Umm Coley MD [address] [place] [address] PCP - General Family Medicine 10/31/16 [facility] 11/14/24 documented as of this encounter
--- OUTSIDE RECORDS SUMMARY | 2024-12-27 17:24 | XMS_ITS | Encounter Summary ---
Author Organization [employer] Address [address] [facility] 7t [place] [address] Care Team Providers Care Cat Operator Name Role Phone Umm Coley MD Primary Care Provider + Encounter Details Date Type Department Care Team (Late st Contact Info) Description 11/29/[address] [facility] MEDIC[facility] [address] [place], [place] [phone] Umm Coley MD [address] [place], [place] [phone] Social History Tobacco Use Types Packs/Day Years [...] 03/08/2025 10:00 AM EDT Office Visit [facility] ADULT DENTAL [address] [place] [address] Elzbieta, Mariangel [address] [place] [address] documented as of this encounter Procedures Procedure Name Priority Date/Time Associated Diagnosis Comments XR HAND WRIST RT Routine 12/23/2024 6:57 [...] EST XR KNEE 4+ VIEWS RIGHT Routine 2:57 PM EST XR CHEST 2 VIEWS Routine 12/13/2024 9:33 AM EST MR KNEE WO CONTRAST LEFT Routine 12/06/2024 6:06 PM EST BI MAMMOGRAM SCREENING TOMOSYNTHESIS BILATERAL Routine 11/29/2024 8:45 AM EST documented in this encounter Results * XR HAND WRIST RT (12/23/2024 6:57 PM EST) Anatomical Region Laterality Modality Abdomen Radiographic Kyleigh ging 12/23/2024 6:57 PM EST Narrative 12/23/2024 6:59 PM EST ? [facility] ?[address] ?[place] [address] ?XRay Report ? Signed ? Patient: Myles,Diana L ?MR#: [id number] ?? 8 ? : 1965 ?Acct:[id number] ? Age/Sex: 59 / F ?ADM Date: 12/23/24 ? Loc: HO.ED ? Attending Dr: ? Ordering Physician: Diomedes Shultz ?? Date of Service: 12/23/24 ?? Procedure(s): XR hand wrist RT ?? Accession Number(s): [id number] ? cc: Diomedes Shultz; Umm Coley MD ? CLINICAL HISTORY: post reduction [...] in OV> ? 12/23/24 1858 ? DD/ 1857 ? TD/TT: 12/23/24 1857 ? Metal Sponge Making Machine Operator: ? Procedure Note Adalgisa, Image - 12/23/[address] [address] XRay Report Signed Patient: Diana Myles LMR#: [id number] 8 : 1965Acct:[id number] Age/Sex: 59 / FADM Date: 12/23/24 Loc: HO.ED Attending Dr: Ordering Physician: Diomedes Shultz Date of Service: 12/23/24 Procedure(s): XR hand wrist RT Accession Number(s): [id number] cc: Diomedes Shultz; Umm Coley MD CLINICAL HISTORY: post reduction 2 [...] in OV> 12/23/241857 DD/ 56 TD/TT: 12/23/241856 Metal Sponge Making Machine Operator: [facility] External Provider IMG XR PROCEDURES Final Result * CT Head w/o Contrast (12/23/2024 4:42 PM EST) Anatomical Region Laterality Modality Head, Neck Computed Tomogra phy 12/23/2024 4:42 PM EST Narrative 12/23/2024 4:54 PM EST ? [facility] ?[address] ?[place] [address] ? CT Scan Report ? Signed ? Patient: Myles,Diana L ?MR#: [id number] ?? 8 ? : 1965 ?Acct:[id number] ? Age/Sex: 59 / F ?ADM Date: 02/21/25 ? Loc: HO.ED ? Attending Dr: ? Ordering Physician: Diomedes Shultz ?? Date of Service: 12/23/24 ?? Procedure(s): CT head/brain wo IV con ?? Accession Number(s): [id number] ? cc: Diomedes Shultz; Umm Cloey MD ? Report Number: ?? [id number]: Total DLP = ??821.00 mGy-cm ?? EXAMINATION: [...] DD/ 1642 ? TD/TT: 12/23/24 1642 ? Metal Sponge Making Machine Operator: ? Procedure Note Donotuseinterpreter, Image - 12/23/[address] [place] [address] [address] Scan Report Signed Patient: Diana Myles LMR#: [id number] 8 : 1965Acct:[id number] Age/Sex: 59 / FADM Date: 12/23/24 Loc: HO.ED Attending Dr: Ordering Physician: Diomedes Shultz Date of Service: 12/23/24 Procedure(s): CT head/brain wo IV con Accession Number(s): [id number] cc: Diomedes Shultz; Umm Coley MD Report Number: [id number]: Total DLP = 821.00 mGy-cm EXAMINATION: CT [...] Mathieu Lepe MD 12/23/2024 04:51 PM EST RP Dictated By: Mathieu Lepe MD Signed By: <Electronically signed by Mathieu Lepe MD in OV> 12/23/24 1651 DD/ 1642 TD/TT: 12/23/24 1642 Metal Sponge Making Machine Operator: [facility] External Provider IMG CT PROCEDURES Final Result * CT Cervical Spine w/o Contrast (12/23/2024 3:29 PM EST) Anatomical Region Laterality Modality Spine, C-spine Computed Tomogra phy 12/23/2024 3:29 PM EST Narrative 12/23/2024 4:57 PM EST ? [facility] ?[address] ?[place] [address] ? CT Scan Report ? Signed ? Patient: Diana Myles L ?MR#: [id number] ?? 8 ? : 1965 ?Acct:[id number] ? Age/Sex: 59 / F ?ADM Date: 12/23/24 ? Loc: HO.ED ? Attending Dr: ? Ordering Physician: Diomedes Shultz ?? Date of Service: 12/23/24 ?? Procedure(s): CT cervical spine wo IV con ?? Accession Number(s): [id number] ? cc: Diomedes Shultz; Umm Coley MD ? Report Number: ?? [id number]: Total DLP = ??821.00 mGy-cm ?? EXAMINATION: [...] Lepe MD ??12/23/2024 04:54 PM EST RP ?? Work[id number] ? Dictated By: ?Mathieu Lepe MD ? Signed By: ?<Electronically signed by Mathieu Lepe MD in OV> ?12/23/24 1654 ? DD/ 1529 ? TD/TT: 12/23/24 1642 ? Metal Sponge Making Machine Operator: ? Procedure Note Chin Diana - 12/23/[address] [place] [address] [address] Scan Report Signed Patient: Diana Myles LMR#: [id number] 8 : 1965Acct:[id number] Age/Sex: 59 / FADM Date: 12/23/24 Loc: HO.ED Attending Dr: Ordering Physician: Diomedes Shultz Date of Service: 12/23/24 Procedure(s): CT cervical spine wo IV con Accession Number(s): [id number] cc: Diomedes Shulzt; Umm Coley MD Report Number: [id number]: Total DLP = 821.00 mGy-cm EXAMINATION: CT [...] by: Mathieu Lepe MD 12/23/2024 04:54 PM EST Dictated By: Mathieu Lepe MD Signed By: <Electronically signed by Mathieu Lepe MD in OV> 12/23/24 1654 DD/ 1529 TD/TT: 12/23/24 1642 Metal Sponge Making Machine Operator: [facility] External Provider IMG CT PROCEDURES Final Result * XR Shoulder 2+ Views Right (12/23/2024 3:09 PM EST) Anatomical Region Laterality Modality Upper Extremities, Shoulder Right Radi ographic Imaging 12/23/2024 3:09 PM EST Narrative 12/23/2024 3:43 PM EST ? [facility] ?[address] ?[place] [address] ?XRay Report ? Signed ? Patient: Myles,Diana L ?MR#: [id number] ?? 8 ? : 1965 ?Acct:[id number] ? Age/Sex: 59 / F ?ADM Date: 12/23/24 ? Loc: HO.ED ? Attending Dr: ? Ordering Physician: Diomedes Shultz ?? Date of Service: 12/23/24 ?? Procedure(s): XR shoulder RT min 2V ?? Accession Number(s): [id number] ? cc: Diomedes Shultz; Umm Coley MD ? EXAMINATION: ?? XR SHOULDER, [...] ? Signed By: ?<Electronically signed by Steven Miles MD in OV> ? 12/23/24 1540 ? DD/ 1509 ? TD/TT: 12/23/24 1533 ? Metal Sponge Making Machine Operator: ? Procedure Note Chin Diana - 12/23/[address] [address] XRay Report Signed Patient: Diana Myles LMR#: [id number] 8 : 1965Acct:[id number] Age/Sex: 59 / FADM Date: 12/23/24 Loc: HO.ED Attending Dr: Ordering Physician: Diomedes Shultz Date of Service: 12/23/24 Procedure(s): XR shoulder RT min 2V Accession Number(s): [id number] cc: Diomedes Shultz; Umm Coley MD EXAMINATION: XR SHOULDER, RIGHT CLINICAL [...] MD Signed By: <Electronically signed by Steven Miles MDin OV> 12/23/24 1540 DD/ 1509 TD/TT: 12/23/24 1533 Metal Sponge Making Machine Operator: [facility] External Provider IMG XR PROCEDURES Final Result * XR HAND WRIST RT (12/23/2024 2:57 PM EST) Anatomical Region Laterality Modality Abdomen Radiographic Kyleigh ging 12/23/2024 2:57 PM EST Narrative 12/23/2024 3:49 PM EST ? [facility] ?[address] ?[place] [address] ?XRay Report ? Signed ? Patient: Myles,Diana L ?MR#: [id number] ?? 8 ? : 1965 ?Acct:[id number] ? Age/Sex: 59 / F ?ADM Date: 12/23/24 ? Loc: HO.ED ? Attending Dr: ? Ordering Physician: Diomedes Shultz ?? Date of Service: 12/23/24 ?? Procedure(s): XR hand wrist RT ?? Accession Number(s): [id number] ? cc: Diomedes Shultz; Umm Coley MD ? EXAMINATION: ?? XR HAND/WRIST, RIGHT ? CLINICAL INFORMATION: ?? Fall. Fracture? COMPARISON: ?? August 07, 2021. ? TECHNIQUE: ?? PA, lateral, and oblique views of the right hand and wrist. ? FINDINGS: ?? There is a cortical disruption through the distal metaphysis of the ?? radius and ulna resulting in dorsal displacement and a 2 cm overriding ?? of the fragments. ?? The metacarpal bones are intact. The phalanges of the digits are ?? intact. ? XR/XR hand wrist RT ?? IMPRESSION: ?? Acute dorsally displaced and overlapping fractures distal radius and ?? ulna. ? Electronically signed by: ??Steven Coreas MD ??12/23/2024 03:46 PM ?? EST RP ? Dictated By: ?Steven Gan MD ? Signed By: ?<Electronically signed by Steven Miles MD in OV> ? 12/23/24 1546 ? DD/ 1457 ? TD/TT: 12/23/24 1533 ? Metal Sponge Making Machine Operator: ? Procedure Note Donmiguelter, Image - 12/23/2024 [place] [address] XRay Report Signed Patient: Diana Myles LMR#: [id number] 8 : 1965Acct:[id number] Age/Sex: 59 / FADM Date: 12/23/24 Loc: HO.ED Attending Dr: Ordering Physician: Diomedes Shultz Date of Service: 12/23/24 Procedure(s): XR hand wrist RT Accession Number(s): [id number] cc: Diomedes Shultz; Umm Coley MD EXAMINATION: XR HAND/WRIST, RIGHT CLINICAL INFORMATION: Fall. Fracture? COMPARISON: August 07, 2021. TECHNIQUE: PA, lateral, and oblique views of the right hand and wrist. FINDINGS: There is a cortical disruption through the distal metaphysis of the radius and ulna resulting in dorsal displacement and a 2 cm overriding of the fragments. The metacarpal bones are intact. The phalanges of the digits are intact. XR/XR hand wrist RT IMPRESSION: Acute dorsally displaced and overlapping fractures distal radius and ulna. Electronically signed by: Steven Coreas MD 12/23/2024 03:46 PM EST Dictated By: Steven Gan MD Signed By: <Electronically signed by Steven Miles MDin OV> 12/23/24 1546 DD/ 1457 TD/TT: 12/23/24 1533 Metal Sponge Making Machine Operator: [facility] External Provider IMG XR PROCEDURES Final Result * XR Hips Bilateral with Pelvis 1 view (12/23/2024 2:57 PM EST) Anatomical Region Laterality Modality Lower Extremities, Hip Bilateral Radiograp hic Imaging 12/23/2024 2:57 PM EST Narrative 12/23/2024 3:45 PM EST ? [facility] ?[address] ?[place] [address] ?XRay Report ? Signed ? Patient: Myles,Diana L ?MR#: [id number] ?? 8 ? : 1965 ?Acct:[id number] ? Age/Sex: 59 / F ?ADM Date: 12/23/24 ? Loc: HO.ED ? Attending Dr: ? Ordering Physician: Diomedes Shultz ?? Date of Service: 12/23/24 ?? Procedure(s): XR hip BI w PEL1V ?? Accession Number(s): [id number] ? cc: Diomedes Shultz; Umm Coley MD ? EXAMINATION: ?? XR BILATERAL [...] ? Signed By: ?<Electronically signed by Steven Miles MD in OV> ? 12/23/24 1543 ? DD/ 1457 ? TD/TT: 12/23/24 1533 ? Metal Sponge Making Machine Operator: ? Procedure Note Donotuseinterpreter, Image - 12/23/[address] [address] XRay Report Signed Patient: Diana Myles LMR#: [id number] 8 : 1965Acct:[id number] Age/Sex: 59 / FADM Date: 12/23/24 Loc: HO.ED Attending Dr: Ordering Physician: Diomedes Shultz Date of Service: 12/23/24 Procedure(s): XR hip BI w PEL1V Accession Number(s): [id number] cc: Diomedes Shultz; Umm Coley MD EXAMINATION: XR BILATERAL HIPS WITH [...] MD Signed By: <Electronically signed by Steven Miles MDin OV> 12/23/24 1543 DD/ 1457 TD/TT: 12/23/24 1533 Metal Sponge Making Machine Operator: us [facility] External Provider IMG XR PROCEDURES Final Result * XR Knee 4+ Views Right (12/23/2024 2:57 PM EST) Anatomical Region Laterality Modality Lower Extremities, Knee Right Radiogra phic Imaging 12/23/2024 2:57 PM EST Narrative 12/23/2024 3:44 PM EST ? [facility] ?[address] ?[place] [address] ?XRay Report ? Signed ? Patient: Myles,Diana L ?MR#: [id number] ?? 8 ? : 1965 ?Acct:[id number] ? Age/Sex: 59 / F ?ADM Date: 12/23/24 ? Loc: HO.ED ? Attending Dr: ? Ordering Physician: Diomedes Shultz ?? Date of Service: 12/23/24 ?? Procedure(s): XR knee RT 4V ?? Accession Number(s): [id number] ? cc: Diomedes Shultz; Umm Coley MD ? EXAMINATION: ?? XR KNEE, [...] ? Signed By: ?<Electronically signed by Steven Miles MD in OV> ? 12/23/24 1541 ? DD/ 1457 ? TD/TT: 12/23/24 1533 ? Metal Sponge Making Machine Operator: ? Procedure Note Chin Diana - 12/23/[address] [address] XRay Report Signed Patient: Diana Myles LMR#: [id number] 8 : 1965Acct:[id number] Age/Sex: 59 / FADM Date: 12/23/24 Loc: HO.ED Attending Dr: Ordering Physician: Diomedes Shultz Date of Service: 12/23/24 Procedure(s): XR knee RT 4V Accession Number(s): [id number] cc: Diomedes Shultz; Umm Coley MD EXAMINATION: XR KNEE, RIGHT CLINICAL INFORMATION: Fall COMPARISON: None available. TECHNIQUE: Four views of the right knee. FINDINGS: No acute cortical disruption or malalignment. No suprapatellar bursa joint effusion. No lytic or blastic lesions. Limited frontal view. XR/XR knee RT 4V IMPRESSION: No acute fracture or dislocation. Electronically signed by: Steven Coreas MD 12/23/2024 03:41 PM EST RP Dictated By: Steven Gan MD Signed By: <Electronically signed by Steven Miles MDin OV> 12/23/24 1541 DD/ 1457 TD/TT: 12/23/24 1533 Metal Sponge Making Machine Operator: [facility] External Provider IMG XR PROCEDURES Final Result * XR Chest 2 Views (12/13/2024 9:33 AM EST) Anatomical Region Laterality Modality Chest Radiographic Kyleigh ging 12/13/2024 9:33 AM EST Narrative 12/13/2024 10:06 AM EST ? [facility] ?[address] ?[place] [address] ?XRay Report ? Signed ? Patient: Diana Myles ?MR#: [id number] ?? 8 ? : 1965 ?Acct:[id number] ? Age/Sex: 59 / F ?ADM Date: 12/13/24 ? Loc: HO.XRAY ? Attending Dr: Anthony Curtis MD ? Ordering Physician: Anthony Curtis MD ?? Date of Service: 12/13/24 ?? Procedure(s): XR chest 2V ?? Accession Number(s): [id number] ? cc: Umm Coely MD; Anthony Curtis MD ? EXAMINATION: ?? [...] signed by Mathieu Lepe MD in OV> ?12/13/244 ? DD/ ? TD/TT: 12/13/24 0948 ? Metal Sponge Making Machine Operator: ? Procedure Note Donotjadeninterpreter, Image - 12/13/2024 [place] [address] XRay Report Signed Patient: Diana Myles LMR#: [id number] 8 : 1965Acct:[id number] Age/Sex: 59 / FADM Date: 12/13/24 Loc: HO.ALIYA Attending Dr: Anthony Curtis MD Ordering Physician: Anthony Curtis MD Date of Service: 12/13/24 Procedure(s): XR chest 2V Accession Number(s): [id number] cc: Umm Coley MD; Anthony Curtis MD [...] Lepe MD in OV> 12/13/24 1004 DD/ 2 TD/TT: 12/13/2448 Metal Sponge Making Machine Operator: us [facility] External Provider IMG XR PROCEDURES Final Result * MR Knee w/o Contrast Left (12/06/2024 6:06 PM EST) Anatomical Region Laterality Modality Magnetic Resonan ce 12/06/2024 6:06 PM EST Narrative 12/08/2024 8:31 AM EST ? [facility] ?[address] ?[place] [address] ? Magnetic Resonance Report ? Signed ? Patient: Myles,Diana L ?MR#: [id number] ?? 8 ? : 1965 ?Acct:[id number] ? Age/Sex: 59 / F ?ADM Date: 12/06/24 ? Loc: HO.MRI ? Attending Dr: Denilson Forman PA-C ? Ordering Physician: Denilson Forman PA-C ?? Date of Service: 12/06/24 ?? Procedure(s): MR knee LT wo con ?? Accession Number(s): [id number] ? cc: Umm Coley MD; Denilson Forman [...] Lepe MD ??12/08/2024 08:29 AM EST RP ?? Workstation: [id number] ? Dictated By: ?Mathieu Lepe MD ? Signed By: ?<Electronically signed by Matiheu Lepe MD in OV> ?12/08/24828 ? DD/ 1806 ? TD/TT: 12/06/24 181 ? Metal Sponge Making Machine Operator: ? Procedure Note Chin Diana - 12/08/[address] [address] Magnetic Resonance Report Signed Patient: Diana Myles LMR#: [id number] 8 : 1965Acct:[id number] Age/Sex: 59 / FADM Date: 12/06/24 Loc: HO.MRI Attending Dr: Denilson Forman PA-C Ordering Physician: Denilson Forman PA-C Date of Service: 12/06/24 Procedure(s): MR knee LT wo con Accession Number(s): [id number] cc: Umm Coley MD; Denilson Forman PA-C [...] Lepe MD in OV> 12/08/24 0829 DD/ 180 TD/TT: 12/06/24 181 Metal Sponge Making Machine Operator: [facility] External Provider IMG MRI PROCEDURES Final Result * BI Mammogram Screening Tomosynthesis Bilateral (11/29/2024 8:45 AM EST) Anatomical Region Laterality Modality Breast Bilateral Mammography 11/29/2024 8:45 AM EST Narrative 12/07/2024 3:35 PM EST ? [facility] ? [address] ?[place] [address] ? Mammography Report ? Signed ? Patient: Myles,Diana L ?MR#: [id number] ?? 8 ? : 1965 ?Acct:[id number] ? Age/Sex: 59 / F ?ADM Date: 01/28/25 ? Loc: HO.MAMMO ? Attending Dr: Umm Coley MD ? Ordering Physician: Umm Coley MD ?Results: 2Be ?? nign Findings ? Date of Service: 11/29/24 ?Follow Up: 1 Year From Orig ?? inal Mammogram ? Procedure(s): MM tomosynthesis screening BI ?? Accession Number(s): [id number] ? cc: Umm Coley MD ? EXAMINATION: [...] DD/ 0845 ? TD/TT: 11/29/24 0915 ? Metal Sponge Making Machine Operator: ? Procedure Note Donotuseinterpreter, Image - 12/07/2024 [facility] [address] [place] [address] Mammography Report Signed Patient: Diana Myles LMR#: [id number] 8 : 1965Acct:[id number] Age/Sex: 59 / FADM Date: 11/29/24 Loc: HO.MAMMO Attending Dr: Umm Coley MD Ordering Physician: Umm Coley MDResults: 2Be nign Findings Date of Service: 11/29/24Follow Up: 1 Year From Orig ina Mammogram Procedure(s): MM tomosynthesis screening BI Accession Number(s): [id number] cc: Umm Coley MD EXAMINATION: MM SCREENING [...] 12/07/24 1532 DD/ 0845 TD/TT: 11/29/24 0915 Metal Sponge Making Machine Operator: Umm Coley MD IMG BI PROCEDURES Edited Result - Final documented in this encounter Visit Diagnoses Not on filedocumented in this encounter Additional Health Concerns Assessment Noted Time PHQ-9 Depression Total Score: 10 024 9:17 AM EDT documented as of this encounter Care Teams Cat Operator Relationship Specialty Start Date End Date Umm Coley MD [address] [place] [address] PCP - General Family Medicine 10/31/16 [facility] 11/14/24 documented as of this encounter
--- OUTSIDE RECORDS SUMMARY | 2024-12-27 17:24 | XMS_ITS | Encounter Summary ---
Author Organization [employer] Address [address] [facility] 7t [place] [address] Care Team Providers Care Food Clerk Name Role Phone Umm Coley MD Primary Care Provider + Reason for Visit * Reason Onset Date Comments ED f/u call 12/26/2024 Encounter Details Date Type Department Care Team ([facility] st Contact Info) Description 12/26/2024 Telephone [facility] MEDICINE [address] [place], [place] [phone] Umm Coley MD [address] [place], [place] [phone] ED f/u call Social History Tobacco Use Types Packs/Day Years [...] Encounter - Gisela Reynoso RN - 12/26/2024 1:13 PM EST Incoming call in regards to below message. Patient reports she is scheduled to see [facility] ortho on 12/28 at 10:15am ([facility] Patient is scheduled to see PCP tomorrow 12/27/24 at 1pm, patient reminded of upcoming appointment with PCP. Patient to f/u PRN. ----- Message from Umm Coley MD sent at 12/25/2024 1:11 PM EST ----- Xray hand/wrist reviewed. Patient seen at the ED on 12/23 sp fall wit radius and ulnar fracture. Pleae call her to fu and see if she has orthopedics fu scheduled already or if she needs addtl fu. * Telephone Encounter - Gisela Reynoso RN - 12/26/2024 10:31 AM EST Noted. TC placed to patient [phone] in regards to below message. Patient did not answer, RN left VM requesting CB to red team nurses. Patient is scheduled for PCP appointment tomorrow 12/27/24 at1pm. Patient to f/u PRN. ----- Message from Umm Coley MD sent at 12/25/2024 1:11 PM EST ----- Xray hand/wrist reviewed. Patient seen at the ED on 12/23 sp fall wit radius and ulnar fracture. Pleae call her to fu and see if she has orthopedics fu scheduled already or if she needs addtl fu. documented in this encounter Plan of Treatment Upcoming Encounters Date Type Department Care Team (Late st Contact Info) Description 03/08/2025 10:00 AM EDT Office Visit [facility] ADULT DENTAL [address] [place] [address] Mariangel Ruff [address] [place] [address] documented as of this encounter Visit Diagnoses Not on filedocumented in this encounter Additional Health Concerns Assessment Noted Time PHQ-9 Depression Total Score: 10 024 9:17 AM EDT documented as of this encounter Care Teams Food Clerk Relationship Specialty Start Date End Date Umm Coley MD [address] [place] [address] PCP - General Family Medicine 10/31/16 [facility] 11/14/24 documented as of this encounter
--- OUTSIDE RECORDS SUMMARY | 2024-12-27 17:24 | XMS_ITS | Encounter Summary ---
Author Organization [employer] Address [address] [facility] 7t [place] [address] Care Team Providers Care Chief Librarian Branch Name Role Phone Umm Coley MD Primary Care Provider + Encounter Details Date Type Department Care Team (Latest Contact Info) Description 12/27/2024 Travel Social History Tobacco Use Types Packs/Day [...] Description 03/08/2025 10:00 AM EDT Office Visit [facility] ADULT DENTAL [address] [place] [address] Elzbieta, Mariangel [address] [place] [address] documented as of this encounter Visit Diagnoses Not on filedocumented in this encounter Additional Health Concerns Assessment Noted Time PHQ-9 Depression Total Score: 10 024 9:17 AM EDT documented as of this encounter Care Teams Chief Librarian Branch Relationship Specialty Start Date End Date Umm Coley MD [address] [place] [address] PCP - General Family Medicine 10/31/16 [facility] 11/14/24 documented as of this encounter
--- OUTSIDE RECORDS SUMMARY | 2024-12-27 17:24 | XMS_ITS | Encounter Summary ---
Author Organization [employer] Address [address] [facility] 7t [place] [address] Care Team Providers Care Vp & General Counsel Name Role Phone Umm Coley MD Primary Care Provider + Reason for Visit * Reason Onset Date Comments pre med prior to dental treatment 08/23/2024 Encounter Details Date Type Department Care Team ([facility] st Contact Info) Description 08/23/2024 Telephone [facility] ADULT D[facility]AL [address] [place], [place] [phone] Johnny Gonzalez, DMD [address] [place] [address] pre med prior to dental treatment Social [...] I also spoke with Nina in the patient coordinator front desk with a run through of what was happening with the patient and she stated she would also send something to provider for clarificationDR documented in this encounter Plan of Treatment Upcoming Encounters Date Type Department Care Team (Late st Contact Info) Description 03/08/2025 10:00 AM EDT Office Visit [facility] ADULT DENTAL [address] [place] [address] Mariangel Ruff [address] [place] [address] documented as of this encounter Visit Diagnoses Not on filedocumented in this encounter Additional Health Concerns Assessment Noted Time PHQ-9 Depression Total Score: 10 024 9:17 AM EDT documented as of this encounter Care Teams Vp & General Counsel Relationship Specialty Start Date End Date Umm Coley MD [address] [place] [address] [place] [address] PCP - General Family Medicine 10/31/16 [facility] 05/11/24 11/17/24 [facility] 11/14/24 documented as of this encounter
--- OUTSIDE RECORDS SUMMARY | 2024-12-27 17:24 | XMS_ITS | Encounter Summary ---
Author Organization [employer] Address [address] [facility] 7t [place] [address] Care Team Providers Care Drug Clerk Name Role Phone Umm Coley MD Primary Care Provider + Reason for Visit * Reason Onset Date Comments VNA services 12/08/2024 Encounter Details Date Type Department Care Team ([facility] st Contact Info) Description 12/08/2024 Telephone [facility] MEDICINE [address] [place], [place] [phone] Gisela Reynoso, BEBA [address] [place], [place] [phone] VNA services Social History Tobacco Use Types [...] can fill the patients lock box at [facility] (she uses [facility] not [facility] pharmacy) to bridge the gap until patient can become established with a new VNA. PCP reports she willing to pre-fill medbox however wants to ensure it is acceptable legally. RN spoke to Sana with PCP, who informed it is acceptable for medications to be placed in lock boxby [facility] however the visit should be billed as [...] [facility] ([facility] liasion) will not be servicing [facility] today d/t the weather however advised RN to fax referral to [phone] (confirmation page received). [facility]fe will notify office of referral urgency. documented in this encounter Plan of Treatment Upcoming Encounters Date Type Department Care Team (Late st Contact Info) Description 03/08/2025 10:00 AM EDT Office Visit [facility] ADULT DENTAL [address] [place] [address] Trino Ruffaris [address] [place] [address] documented as of this encounter Visit Diagnoses Not on filedocumented in this encounter Additional Health Concerns Assessment Noted Time PHQ-9 Depression Total Score: 10 06/10/ 024 9:17 AM EDT documented as of this encounter Care Teams Drug Clerk Relationship Specialty Start Date End Date Umm Coley MD [address] [place] [address] PCP - General Family Medicine 10/31/16 [facility] 11/14/24 documented as of this encounter
--- OUTSIDE RECORDS SUMMARY | 2024-12-27 17:24 | XMS_ITS | Encounter Summary ---
Author Organization [employer] [facility] Address [address] [place] [address] 7t [place] [address] Care Team Providers Care Licensed Professional Counselor Name Role Phone Umm Coley MD Primary Care Provider + Encounter Details Date Type Department Care Team (Late st Contact Info) Description 09/24/2022 Abstract [facility] ADULT DENTAL [address] [place] [address] Dental, Provider, DDS Social History Tobacco Use [...] Description 03/08/2025 10:00 AM EDT Office Visit [facility] ADULT DENTAL [address] [place] [address] Mariangel Ruff [address] [place] [address] documented as of this encounter Procedures Procedure [...] on filedocumented in this encounter Care Teams Licensed Professional Counselor Relationship Specialty Start Date End Date Umm Coley MD [address] [place] [address] PCP - General Family Medicine 10/31/16 Eva Nunez Devops Engineer 04/05/24 07/06/24 [facility] 05/11/24 11/17/24 [facility] 11/14/24 documented as of this encounter
--- OUTSIDE RECORDS SUMMARY | 2024-12-27 17:24 | XMS_ITS | Clinical Summary ---
Author Organization Unknown Care Team Providers Care Yeast Tender Name Role Phone DANIEL JACOBS, SHALONDA Unavailable Unavailable DUANE YODER, TEE Unavailable Unavailable Payers Payer Name Policy Type Policy Number Effective Date Expira tion Date MEDICAID [facility] [id number] Problems Condition Name Condition Details Condition Category [...] UNSPECIFIED SITE Active 5-12 00:00: 00 OTHER CORRECTION (CURRENT) DRUG THERAPY Active 1-15 00:00: 00 CORRECTION (CURRENT) USE OF NON-STEROIDA L NON-INFLAM (NSAID) [...] on aerosol inhaler 01-20 00:00: 00 Yes [id number] Per instruc tions DOS VECES AL D Per instructio ns DOS VECES AL D (route: inhalation ) Med Classific ation: Respirato ry Therapy Agents magnesium oxide 400 mg (241.3 mg magnesium) tablet 01-30 00:00: 00 11-14 00:00 :00 No [id number] Per instruc tions TOME NAIMA TABLETA TODOS LOS D Per instructio ns TOME NAIMA TABLETA TODOS LOS D (route: oral) Med Classific ation: Electroly te Balance-N utritiona l Products buspirone 15 mg tablet 01-16 00:00: 00 Yes [id number] Per instruc tions TOME NAIMA TABLETA CHEMA VECES AL D Per instructio ns TOME NAIMA TABLETA CHEMA VECES AL D (route: oral) Med Classific ation: Central Nervous System Agents melatonin 5 mg tablet 01-30 00:00: 00 Yes [id number] Per instruc tions EVERYDAY AT 5 PM FOR 2 WEEKS THEN MAY INCREASE TO 2 TABS E VERYDAY AT Per instructio ns EVERYDAY AT 5 PM FOR 2 WEEKS THEN MAY INCREASE TO 2 TABS E VERYDAY AT (route: oral) Med Classific ation: Central Nervous System Agents loratadine 10 mg tablet 01-04 00:00: 00 Yes [id number] Per instruc tions TOME NAIMA TABLETA TODOS LOS D Per instructio ns TOME NAIMA TABLETA TODOS LOS D (route: oral) Med Classific ation: Respirato ry Therapy Agents senna 8.6 mg tablet 01-30 00:00: 00 Yes [id number] Per instruc tions TODOS LOS D Per instructio ns TODOS LOS D (route: oral) Med Classific ation: Gastroint estinal Therapy Agents omeprazole 20 mg capsule,del ayed release 01-27 00:00: 00 Yes [id number] Per instruc tions TODOS LOS D Per instructio ns TODOS LOS D (route: oral) Med Classific ation: Gastroint estinal Therapy Agents mirtazapine 45 mg tablet 24 00:00: 00 Yes [id number] Per instruc tions AT BEDTIME DIRECTED Per instructio ns AT BEDTIME DIRECTED (route: oral) Med Classific ation: Central Nervous System Agents famotidine 40 mg tablet 01-30 00:00: 00 11-14 00:00 :00 No [id number] Per instruc tions Per instructio ns (route: oral) Med Classific ation: Gastroint estinal Therapy Agents olanzapine 20 mg tablet 01-30 00:00: 00 Yes [id number] Per instruc tions AT BEDTIME Per instructio ns AT BEDTIME (route: oral) Med Classific ation: Central Nervous System Agents clonazepam 1 mg tablet 01-08 00:00: 00 Yes [id number] Per instruc tions TOME NAIMA TABLETA DOS VECES AL D Per instructio ns TOME NAIMA TABLETA DOS VECES AL D (route: oral) Med Classific ation: Central Nervous System Agents dicyclomine 20 mg tablet 01-08 00:00: 00 Yes [id number] Per instruc tions CUATRO VECES AL D Per instructio ns CUATRO VECES AL D (route: oral) Med Classific ation: Gastroint estinal Therapy Agents amlodipine 2.5 mg tablet 01-19 00:00: 00 11-14 00:00 :00 No [id number] Per instruc tions TOME NAIMA TABLETA TODOS LOS D Per instructio ns TOME NAIMA TABLETA TODOS LOS D (route: oral) Med Classific ation: Cardiovas cular Therapy Agents sertraline 100 mg tablet 17 00:00: 00 Yes [id number] Per instruc tions TODOS LOS D Per instructio ns TODOS LOS D (route: oral) Med Classific ation: Central Nervous System Agents nabumetone 500 mg tablet 01-31 00:00: 00 11-14 00:00 :00 No [id number] Per instruc tions TOME NAIMA TABLETA DOS VECES AL D Per instructio ns TOME NAIMA TABLETA DOS VECES AL D (route: oral) Med Classific ation: Analgesic , Anti-infl ammatory or Antipyret ic amitriptyli ne 50 mg tablet 01-27 00:00: 00 Yes [id number] Per instruc tions TOME NAIMA TABLETA TODOS LOS D AL ACOSTARSE FOR 30 DAYS Per instructio ns TOME NAIMA TABLETA TODOS LOS D AL ACOSTARSE FOR 30 DAYS (route: oral) Med Classific ation: Central Nervous System Agents prazosin 2 mg capsule 01-22 00:00: 00 Yes [id number] Per instruc tions TODOS LOS D Per instructio ns TODOS LOS D (route: oral) Med Classific ation: Cardiovas cular Therapy Agents cholecalcif juan (vitamin D3) 50 mcg (2,000 unit) capsule 01-08 00:00: 00 Yes [id number] Per instruc tions PSULA TODOS LOS D Per instructio ns PSULA TODOS LOS D (route: oral) Med Classific ation: Electroly te Balance-N utritiona l Products cyanocobala min (vit B-12) 100 mcg tablet 01-16 00:00: 00 Yes [id number] Per instruc tions TODOS LOS D Per instructio ns TODOS LOS D (route: oral) Med Classific ation: Electroly te Balance-N utritiona l Products FeroSul 325 mg (65 mg iron) tablet 11-13 00:00: 00 Yes [id number] 325 mg 3 TIMES A WEEK 325 mg 3 TIMES A WEEK (route: oral) Med Classific ation: Electroly te Balance-N utritiona l Products Vitamin C 500 mg chewable tablet 11-13 00:00: 00 Yes [id number] 500 mg 3 TIMES A WEEK 500 [...] AWARENESS FOR SAFETY AND WILL NOTIFY CLINICAL CLERICAL ADJUSTER AND PHYSICIAN/PROVIDER WITH ANY CHANGE IN CONDITION. [code = SKILLED NURSE WILL MAINTAIN SITUATIONAL AWARENESS FOR SAFETY AND WILL NOTIFY CLINICAL CLERICAL ADJUSTER AND PHYSICIAN/PROVIDER WITH ANY CHANGE IN CONDITION.] Goal Patient Goal - T O FEEL HAPPY AND NOT BE TIRED ALL THE TIME. Goal Provider Goal - A PLAN OF CARE WILL BE ESTABLISHED THAT MEETS PATIENT'S HALF-WAY NEEDS AND INCLUDES PATIENT GOAL FOR HOME [...] End Date/Time Encounter Type Admission Type Attending [facility] Care Facility Care Department Encounter ID Discharge Date Discharge Status Discharge Condition Discharge Reason Percent Goals Met 2024-11-14 00:00:00 2024-12-08 00:00:00 Outpatient [facility] [id number] 2024-12-08 00:00:00 DISCHARGE TO HOME OR SELF CARE INDEPENDEN T WITH USE OF ASSISTIVE DEVICE NON COMPLIANT WITH PLAN OF TREATMENT 5.88
--- OUTSIDE RECORDS SUMMARY | 2024-12-27 17:24 | XMS_ITS | Encounter Summary ---
Author Organization [employer] Address [address] [facility] 7t [place] [address] Care Team Providers Care Vp Clinical Research Name Role Phone Umm Coley MD Primary Care Provider + Reason for Visit * Reason Onset Date Comments Appointment Request 12/22/2024 Encounter Details Date Type Department Care Team ([facility] st Contact Info) Description 12/22/2024 Telephone [facility] MEDICINE [address] [place], [place] [phone] Umm Coley MD [address] [place], [place] [phone] Appointment Request Social History Tobacco Use Types [...] 10:27 AM EST TC returned to patient [phone] in regards to below message. Patient reports [...] AM EST Tc from pt returning call. Sami * Telephone Encounter - Gisela Reynoso RN - 12/22/2024 8:36 AM EST TC placed to patient [phone] in regards to below message. Patient did [...] available to be scheduled. Contact pt at [phone] documented in this encounter Plan of Treatment Upcoming Encounters Date Type Department Care Team (Late st Contact Info) Description 03/08/2025 10:00 AM EDT Office Visit [facility] ADULT DENTAL [address] [place], [place] [phone] ElzbietaMariangel [address] [place] [address] documented as of this encounter Visit Diagnoses Not on filedocumented in this encounter Additional Health Concerns Assessment Noted Time PHQ-9 Depression Total Score: 10 024 9:17 AM EDT documented as of this encounter Care Teams Vp Clinical Research Relationship Specialty Start Date End Date Umm Coley MD [address] [place] [address] PCP - General Family Medicine 10/31/16 [facility] 11/14/24 documented as of this encounter
--- OUTSIDE RECORDS SUMMARY | 2024-12-27 17:24 | XMS_ITS | Encounter Summary ---
Author Organization [employer] Address [address] [facility] 7t [place] [address] Care Team Providers Care Roller Staker Name Role Phone Umm Coley MD Primary Care Provider + Reason for Visit * Reason Onset Date Comments Call Back Request 12/20/2024 Encounter Details Date Type Department Care Team ([facility] st Contact Info) Description 12/20/2024 Telephone [facility] MEDICINE [address] [place], [place] [phone] Umm Coley MD [address] [place], [place] [phone] Call Back Request Social History Tobacco Use [...] PM EST RN was informed by O[facility] ([facility]) that they have changed the patients nurse to a female nurse. Patient's VNA will now be [facility]. * Telephone Encounter - Deyvi Bray RN - 12/21/2024 9:51 AM EST TC returned to patient (via [facility] [employer] chicken [employer] fish) no answer left voicemail to return call to clinic. * Telephone Encounter - Rossana Lawrence - 12/21/2024 9:32 AM EST Tc from pt requesting a call back regarding message below. Tunisian * Telephone Encounter - Umm Coley MD - 12/20/2024 4:24 PM EST Nurse subway repair supervisor note re meds appreciated. Agree with [...] 3:28 PM EST Spoke to patient (with [facility] medical collections specialist) regarding VNA nurse and meds (as discussed [...] RN discposed of medications in sharps container ([facility] medical collections specialist witnessed disposal). One pill was orange/red capsule [...] if we can switch them. RN called [facility] VNA spoke to director Zara whowas informed [...] verbalized understanding and will return call to client engagement manager if she is able to find [...] reports she has a new VNA service ([facility]) which started on Thursday. Patient reports on Thursday it was two females who went to the patients [place] and they put all the medications on [...] name and confirm he is employed by [facility]. Patient reports she is having a hard time trusting the VNAand that he is aware of what he is doing. TC placed to VNA Randy [phone] to discuss above situation. Randy VNA reports [...] to PCP who requested RN call Deyvi (client engagement manager) to speak to patient. RN called [...] a Nurse of PCP Contact pt at [phone] documented in this encounter Plan of Treatment Upcoming Encounters Date Type Department Care Team (Late st Contact Info) Description 03/08/2025 10:00 AM EDT Office Visit [facility] ADULT DENTAL [address] [place] [address] Elzbieta, Mariangel [address] [place] [address] documented as of this encounter Visit Diagnoses Not on filedocumented in this encounter Additional Health Concerns Assessment Noted Time PHQ-9 Depression Total Score: 10 024 9:17 AM EDT documented as of this encounter Care Teams Roller Staker Relationship Specialty Start Date End Date Umm Coley MD [address] [place] [address] PCP - General Family Medicine 10/31/16 [facility] 11/14/24 documented as of this encounter
--- OUTSIDE RECORDS SUMMARY | 2024-12-27 17:24 | XMS_ITS | Encounter Summary ---
Author Organization [employer] Address [address] [facility] 7t [place] [address] Care Team Providers Care Journalism Professor Name Role Phone Umm Coley MD Primary [...] Office Visit [facility] ADULT DENTAL [address] [place] [address] Elzbieta, Mariangel [address] [place] [address] documented as of this encounter Visit Diagnoses Not on filedocumented in this encounter Additional Health Concerns Assessment Noted Time PHQ-9 Depression Total Score: 10 024 9:17 AM EDT documented as of this encounter Care Teams Journalism Professor Relationship Specialty Start Date End Date Umm Coley MD [address] [place] [address] PCP - General Family Medicine 10/31/16 [facility] 11/14/24 documented as of this encounter
--- OUTSIDE RECORDS SUMMARY | 2024-12-27 17:24 | XMS_ITS | Encounter Summary ---
Author Organization [employer] Address [address] [facility] 7t [place] [address] Care Team Providers Care Quill Reamer Name Role Phone Umm Coley MD Primary Care Provider + Reason for Visit * Reason Onset Date Comments Appointment 06/15/2023 Encounter Details Date Type Department Care Team ([facility] st Contact Info) Description 06/15/2023 Telephone [facility] ADULT DENTAL [address] [facility] [address] Johnny Gonzalez, DMD [address] [place] [address] Appointment Social History Tobacco Use Types Packs/Day [...] Visit [facility] ADULT DENTAL [address], [place] [phone] Elzbieta, Mariangel [address] [place] [address] documented as of this encounter Visit Diagnoses Not on filedocumented in this encounter Additional Health Concerns Assessment Noted Time PHQ-9 Depression Total Score: 12 04/02/ 023 1:58 PM EDT documented as of this encounter Care Teams Quill Reamer Relationship Specialty Start Date End Date Umm Coley MD [address] [place] [address] PCP - General Family Medicine 10/31/16 Eva Nunez Fingernail Former 04/05/24 07/06/24 [facility] 05/11/24 11/17/24 [facility] 11/14/24 documented as of this encounter
--- OUTSIDE RECORDS SUMMARY | 2024-12-27 17:24 | XMS_ITS | Encounter Summary ---
Author Organization [employer] [facility] Address [address] [place] [address] 7t [place] [address] Care Team Providers Care Science Teacher Name Role Phone Umm Coley MD Primary Care Provider + Encounter Details Date Type Department Care Team (Latest Contact Info) Description 11/23/2020 Abstract [facility] CONVERSIONS Dental, Provider, DDS Social [...] Description 03/08/2025 10:00 AM EDT Office Visit [facility] ADULT DENTAL [address] [place] [address] Elzbieta, Mariangel [address] [place] [address] documented as of this encounter Visit Diagnoses Not on filedocumented in this encounter Care Teams Science Teacher Relationship Specialty Start Date End Date Umm Coley MD [address] [place] [address] PCP - General Family Medicine 10/31/16 Eva Nunez Grinding Machine Operator 04/05/24 07/06/24 [facility] 05/11/24 11/17/24 [facility] 11/14/24 documented as of this encounter
--- OUTSIDE RECORDS SUMMARY | 2024-12-27 17:24 | XMS_ITS | Encounter Summary ---
Author Organization [employer] Address [address] [facility] 7t [place] [address] Care Team Providers Care Stamper Blocker Name Role Phone Umm Coley MD Primary Care Provider + Reason for Visit * Reason Onset Date Comments PCP Contact 12/08/2024 Medbox set up. Encounter Details Date Type Department Care Team ([facility] Contact Info) Description 12/13/2024 Telephone [facility] MED[facility]INE [address] [place], [place] [phone] Umm Coley MD [address] [place], [place] [phone] PCP Contact (Medbox set up.) Social History [...] EST Patient came on Thursday12/09/24 with her ECONOMETRICIAN and they brought the log med box [...] with pharmaco education, discussing with patient and ECONOMETRICIAN regarding the useand side effects of medications. [...] counselor for this polypharmacy I gave patient's ECONOMETRICIAN the med box for that day and the remaining of the pillboxes were pulled into the lock box again, her daughter has the black box combination to open it up. documented in this encounter Plan of Treatment Upcoming Encounters Date Type Department Care Team (Late st Contact Info) Description 03/08/2025 10:00 AM EDT Office Visit [facility] ADULT DENTAL [address] [place] [address] Elzbieta, Mariangel [address] [place] [address] documented as of this encounter Visit Diagnoses Not on filedocumented in this encounter Additional Health Concerns Assessment Noted Time PHQ-9 Depression Total Score: 10 024 9:17 AM EDT documented as of this encounter Care Teams Stamper Blocker Relationship Specialty Start Date End Date Umm Coley MD [address] [place] [address] PCP - General Family Medicine 10/31/16 [facility] 11/14/24 documented as of this encounter
--- OUTSIDE RECORDS SUMMARY | 2024-12-27 17:24 | XMS_ITS | Encounter Summary ---
Author Organization [employer] Address [address] [facility] 7t [place] [address] Care Team Providers Care Pmo Business Analyst Name Role Phone Umm Coley MD Primary Care Provider + Reason for Visit * Reason Onset Date Comments appt 01/08/2024 Encounter Details Date Type Department Care Team ([facility] st Contact Info) Description 01/08/2024 Telephone [facility] ADULT DENTAL [address] [place], [place] [phone] Homer Strong, DMD [address] [place] [address] appt Social History Tobacco Use Types Packs/Day [...] 10:00 AM EDT Office Visit [facility] ADULT DENTAL [address] [place] [address] Elzbieta, Mariangel [address] [place] [address] documented as of this encounter Visit Diagnoses Not on filedocumented in this encounter Additional Health Concerns Assessment Noted Time PHQ-9 Depression Total Score: 21 024 11:31 AM EST documented as of this encounter Care Teams Pmo Business Analyst Relationship Specialty Start Date End Date Umm Coley MD [address] [place] [address] PCP - General Family Medicine 10/31/16 Eva Nunez Discharge Coordinator 04/05/24 07/06/24 [facility] 05/11/24 11/17/24 [facility] 11/14/24 documented as of this encounter
--- OUTSIDE RECORDS SUMMARY | 2024-12-27 17:24 | XMS_ITS | Encounter Summary ---
Author Organization [employer] Address [address] [facility] 7t [place] [address] Care Team Providers Care Med Admin Name Role Phone Umm Coley MD Primary [...] [facility] ADULT DENTAL [address] [place] [address] Elzbieta, Mariangel [address] [place] [address] documented as of this encounter Visit Diagnoses Not on filedocumented in this encounter Additional Health Concerns Assessment Noted Time PHQ-9 Depression Total Score: 10 024 9:17 AM EDT documented as of this encounter Care Teams Med Admin Relationship Specialty Start Date End Date Umm Coley MD [address] [place] [address] PCP - General Family Medicine 10/31/16 [facility] 11/14/24 documented as of this encounter
--- OUTSIDE RECORDS SUMMARY | 2024-12-27 17:24 | XMS_ITS | Encounter Summary ---
Author Organization [employer] Address [address] [facility] 7t [place] [address] Care Team Providers Care Securities Teller Name Role Phone Umm Coley MD Primary Care Provider + Reason for Visit * Reason Onset Date Comments Chart prep 12/23/2024 Encounter Details Date Type Department Care Team ([facility] st Contact Info) Description 12/23/2024 Telephone [facility] MEDICINE [address] [place], [place] [phone] Umm Coley MD [address] [place], [place] [phone] Chart prep Social History Tobacco Use Types [...] Telephone Encounter - Juana Connor MA - 12/23/2024 3:07 PM EST Chart Prep Labs: not done Images: done Vaccines due: yes Referrals: complete Screenings: N/A Overdue care gaps: PHQ-9 documented in this encounter Plan of Treatment Upcoming Encounters Date Type Department Care Team (Late st Contact Info) Description 03/08/2025 10:00 AM EDT Office Visit [facility] ADULT DENTAL [address] [place] [address] Trino Ruffaris [address] [place] [address] documented as of this encounter Visit Diagnoses Not on filedocumented in this encounter Additional Health Concerns Assessment Noted Time PHQ-9 Depression Total Score: 10 024 9:17 AM EDT documented as of this encounter Care Teams Securities Teller Relationship Specialty Start Date End Date Umm Coley MD [address] [place], [place] [phone] PCP - General Family Medicine 10/31/16 [facility] 11/14/24 documented as of this encounter
--- OUTSIDE RECORDS SUMMARY | 2024-12-27 17:24 | XMS_ITS | Encounter Summary ---
Author Organization [employer] [facility] Address [address] [place] [address] 7t [place] [address] Care Team Providers Care Forensic Pathologist Name Role Phone Umm Coley MD Primary Care Provider + Encounter Details Date Type Department Care Team (Latest Contact Info) Description 03/13/2022 Abstract [facility] CONVERSIONS Dental, Provider, DDS Social History Tobacco [...] Description 03/08/2025 10:00 AM EDT Office Visit [facility] ADULT DENTAL [address] [place] [address] Elzbieta, Mariangel [address] [place] [address] documented as of this encounter Visit Diagnoses Not on filedocumented in this encounter Care Teams Forensic Pathologist Relationship Specialty Start Date End Date Umm Coley MD [address] [place] [address] PCP - General Family Medicine 10/31/16 Eva Nunez Tech Intern 04/05/24 07/06/24 [facility] 05/11/24 11/17/24 [facility] 11/14/24 documented as of this encounter
--- OUTSIDE RECORDS SUMMARY | 2024-12-27 17:24 | XMS_ITS | Encounter Summary ---
Author Organization [employer] [facility] Address [address] [place] [address] 7t [place] [address] Care Team Providers Care Veterinary Inspector Name Role Phone Shalonda Coley MD Primary Care Provider + Reason for Referral * Consultation (Routine) - Closed Specialty Diagnoses / Procedures Referred By Contkassie t Referred To Contact Case Management Diagnoses Encounter for monitoring of patient compliance in drug treatment program Shalonda Coley MD [address] [place] [address] Phone: tel: fax: Referral ID Status Reason Start Date Expiration Date V isits Requested Visits Authorized [id number] Closed Specialty Services Required 12/27/2024 12/27/2025 1 1 Reason for Visit * Reason Comments Weakness, Gen Encounter Details Date Type Department Care Team (Late st Contact Info) Description 12/27/2024 1:00 PM EST Office Visit [facility] MEDICINE [address] [place], [place] [phone] Shalonda Coley MD [address] [place], [place] [phone] Encounter for monitoring of patient compliance in drug treatment program (Primary Dx); Intercostal pain Social History Tobacco Use Types Packs/Day Years [...] 12/27/2024 12:[address] Respiratory Rate - - Oxygen Saturation 100% 12/27/2024 12:50 PM EST Inhaled Oxygen Concentration - - Weight 49.7 kg (109 lb 8 oz) 12/27/2024 12:50 PM EST Height 157.5 cm (5' 2 ) 12/27/2024 12:50 PM EST Body Mass Index 20.03 12/27/2024 12:50 PM EST documented in this encounter Progress Notes * Shalonda Coley MD - 12/27/2024 1:00 PM EST SUBJECTIVE: Diana Myles is a 59 y.o. year old female who presents for sick visit . Denies recent illness, injury, or hospitalization. Pt comes in for a sick visit. Pt had an ED visit on 12/23/24 after sleeping and falling on the eyes on the right side, no head trauma or LOC. Vital signs were stable and XR of right hand showed dorsal, radial, and ulnar fracture. She was seen by orthopedics and they did a reduction of the fracture. She also had a rib fracture with hematoma, rib fracture was blocked with Lidocaine. She was discharged to fu with orthopedics. Pt reports having issues with her VNA, as she reports that the nurse did not know where the medications were and was reportedly asking her about it, did not feel confident with the questions on the way the VNA manage the medications and med boxes. She questioned the credentials of the VNAs, as she says they did not have an ID or apparently the ID was incorrect. She currently has a VNA for med administration that goes daily, but she is not happy with the current arrangements. She tells me she feels safe even though the medications are not arranged in the med boxes that way they used to be arranged with the previous nurses. She has not addressed this issue to anyone at [facility] VNA. Acute Concerns: She complains of pleuritic chest pain in the right side despite taking naproxen. She has Diclofenacgel at home. She denies any fever or cough. Social History Social History Narrative Not on file Patient Active Problem List Diagnosis Adhesive capsulitis of shoulder SHALONDA positive Apnea Arthritis of knee Asthenia Blunt [...] keratoses Dental cavity Asthmatic bronchitis without complication Encounter for monitoring of patient compliance in drug treatment program Intercostal pain Family History Problem Relation Name Age of Onset Heart disease Mother Heart disease Father Breast cancer Sister Bone cancer Sister Review of Systems Constitutional: Positive for fatigue. Negative for chills and fever. HENT: Negative for congestion, ear [...] ideas. The patient is nervous/anxious. OBJECTIVE: Vitals: 12/27/24 1250 BP: 121/65 Pulse: 68 Temp: 96.7 ??F (35.9 ??C) SpO2: 100% Physical Exam Constitutional: Appearance: Normal appearance. HENT: [...] Breath sounds: Normal breath sounds. No wheezing. Chest: Chest wall: Tenderness (on right side) present. Comments: Excoriation along right medial axillary line around t-10. Abdominal: General: Bowel sounds are normal. Palpations: Abdomen is soft. Tenderness: There is no abdominal tenderness. Musculoskeletal: General: No tenderness. Normal range of motion. Cervical back: Normal range of motion. No tenderness. Skin: General: Skin is warm. Neurological: General: No focal deficit present. Mental Status: She is alert and oriented to person, place, and time. Psychiatric: Mood and Affect: Mood normal. Problem List Items Addressed This Visit Encounter for monitoring of patient compliance in drug treatment program - Primary Pt continues to have questions regarding medication management by current VNA services ([facility]). I asked her if she wants me to cancel the services and try to find a new one, but she declined. I suggested her to reach out to [facility] supervisors and verify credential information and address issues that she has with current medication management. I will ask our care managers to reach out to her to assist her with this issue and try to stabilizeher on a VNA service. Will ask [facility] VNA service to send a list of current medications including PRNs Relevant Orders Referral to Care Management Intercostal pain Most likely secondary to chest trauma after fall, chest contortion. Continue Diclofenac gel BID x 1-2 weeks + Tylenol or Naproxen prn pain. Order XRs to rule out rib fracture (unclear on ED note if that was a typo or she had a real rib fracture). Relevant Orders XR Chest 2 Views (Completed) Follow Up: Current Outpatient Medications on [...] TAB ORALLY 3 TIMES PER WEEK ON MON-WED-FRI (TAKE W/ FERROUS SULFATE). busPIRone (Buspar) 15 [...] A ORAL 3 TIMES A WEEK ON MON,WED,FRI fluticasone-salmeterol (Advair) 115-21 MCG/ACT inhaler TOME DOS INHALACIONES POR V A ORAL DOS VECESAL D A glucose blood (FREESTYLE LITE) test strip apply 1 by to skin route 3x/week loratadine (Claritin) 10 MG tablet TOME 1 TABLETA POR VIA ORAL TODOS LOS MORIN EN LA BUMPUS MILLSANA CUANDO SEA NECESARIO FOR ALLERGIES 90 tablet [...] to document services personally performed by Dr. Shalonda Coley, based on the patient's response to questions by provider and provider's statements to me. documented in this encounter Miscellaneous Notes * Assessment & Plan Note - Adriana Mcgraw - 12/27/2024 4:34 PM ESTAssociated Problem(s): Intercostal pain Most likely secondary to chest trauma after fall, chest contortion. Continue Diclofenac gel BID x 1-2 weeks + Tylenol or Naproxen prn pain. Order XRs to rule out rib fracture (unclear on ED note if that was a typo or she had a real rib fracture). * Assessment & Plan Note - Adriana Mcgraw - 12/27/2024 4:32 PM ESTAssociated Problem(s): Encounter for monitoring of patient compliance in drug treatment program Pt continues to have questions regarding medication management by current VNA services ([facility]). I asked her if she wants [...] her with this issue and try to stabilizeher on a VNA service. Will ask [facility] V[facility] service to send a list of current medications including PRNs documented in this encounter Plan of Treatment Upcoming Encounters Date Type Department Care Team ([facility] st Contact Info) Description 03/08/2025 10:00 AM EDT Office Visit [facility] ADULT DENTAL [address] [place] [address] Elzbieta, Mariangel [address] [place] [address] Scheduled Referrals Name Type Priority Associated Diagnoses Order Schedule Referral to Care Management Outpatient Referral Routine Encounter for monitoring of patient compliance in drug treatment program Expected: 12/27/2024 (Approximate), Expires: 12/27/2025 documented as of this encounter Procedures Procedure Name Priority Date/Time Associated Diagnosis Comments XR RIBS 2 VIEWS RIGHT Routine 12/27/2024 1:56 PM EST XR CHEST 2 VIEWS Routine 12/27/2024 1:56 PM EST Intercostal pain documented in this encounter Results * XR Ribs 2 Views Right (12/27/2024 1:56 PM EST) Anatomical Region Laterality Modality Rib, Abdomen Right Radiographic Kyleigh ging 12/27/2024 1:56 PM EST Narrative 12/27/2024 2:35 PM EST ?[facility] ?[address] ?[place] [address] ?XRay Report ? Signed ? Patient: Myles,Diana L ?MR#: [id number] ?? 8 ? : 1965 ?Acct:[id number] ? Age/Sex: 59 / F ?ADM Date: 02/25/25 ? Loc: HO.HHCX ? Attending Dr: Shalonda Coley MD ? Ordering Physician: Shalonda Coley MD ?? Date of Service: 12/27/24 ?? Procedure(s): XR ribs RT 2V ?? Accession Number(s): [id number] ? cc: Shalonda Coley MD ? EXAMINATION: [...] DD/ 1356 ? TD/TT: 12/27/24 1424 ? Senior Program Manager: ? Procedure Note Donkatelynjadenclaudiater, Image - 12/27/2024 [place] [address] XRay Report Signed Patient: Diana Myles LMR#: [id number] 8 : 1965Acct:[id number] Age/Sex: 59 / FADM Date: 12/27/24 Loc: HO.HHCX Attending Dr: Shalonda Coley MD Ordering Physician: Shalonda Coley MD Date of Service: 12/27/24 Procedure(s): XR ribs RT 2V Accession Number(s): [id number] cc: Shalonda Coley MD EXAMINATION: XR CHEST [...] 12/27/24 1433 DD/ 1356 TD/TT: 12/27/24 1424 Senior Program Manager: us Shalonda Coley MD IMG XR PROCEDURES Final Result * XR Chest 2 Views (12/27/2024 1:56 PM EST) Anatomical Region Laterality Modality Chest Radiographic Kyleigh ging 12/27/2024 1:56 PM EST Narrative 12/27/2024 2:36 PM EST ?[facility] ?[address] ?[place] [address] ?XRay Report ? Signed ? Patient: Diana Myles ?MR#: [id number] ?? 8 ? : 1965 ?Acct:[id number] ? Age/Sex: 59 / F ?ADM Date: 12/27/24 ? Loc: HO.HHCX ? Attending Dr: Shalonda Coley MD ? Ordering Physician: Shalonda Coley MD ?? Date of Service: 12/27/24 ?? Procedure(s): XR chest 2V ?? Accession Number(s): [id number] ? cc: Shalonda Coley MD ? EXAMINATION: [...] DD/ 1356 ? TD/TT: 12/27/24 1424 ? Senior Program Manager: ? Procedure Note Donotjadenclaudiater, Image - 12/27/2024 [place] [address] XRay Report Signed Patient: Diana Myles LMR#: [id number] 8 : 1965Acct:[id number] Age/Sex: 59 / FADM Date: 12/27/24 Loc: HO.HHCX Attending Dr: Shalonda Coley MD Ordering Physician: Shalonda Coley MD Date of Service: 12/27/24 Procedure(s): XR chest 2V Accession Number(s): [id number] cc: Shalonda Coley MD EXAMINATION: XR CHEST [...] Mathieu Lepe MD 12/27/2024 02:33 PM EST Dictated By: Mathieu Lepe MD Signed By: <Electronically signed by Mathieu Lepe MD in OV> 12/27/24 1433 DD/ 1356 TD/TT: 12/27/24 1424 Senior Program Manager: us Shalonda Coley MD IMG XR PROCEDURES Final Result documented in this encounter Visit Diagnoses Diagnosis Encounter for monitoring of patient compliance in drug treatment program- Primary Intercostal pain documented in this encounter Additional Health Concerns Assessment Noted Time PHQ-9 Depression Total Score: 10 024 9:17 AM EDT documented as of this encounter Care Teams Veterinary Inspector Relationship Specialty Start Date End Date Shalonda Coley MD [address] [place] [address] PCP - General Family Medicine 10/31/16 [facility] 11/14/24 documented as of this encounter
--- OUTSIDE RECORDS SUMMARY | 2024-12-27 17:25 | XMS_ITS | Encounter Summary ---
Author Organization [employer] Address [address] [facility] 7t [place] [address] Care Team Providers Care Slp Teacher Name Role Phone Umm Coley MD Primary Care Provider + Reason for Visit * Reason Comments Med Change Request Encounter Details Date Type Department Care Team ([facility] Contact Info) Description 03/20/2023 Refill [facility] ADULT DENTAL [address] [place] [address] Johnny Gonzalez DMD [address] [place] [address] Social History Tobacco Use Types Packs/Day Years [...] Description 03/08/2025 10:00 AM EDT Office Visit [facility] ADULT DENTAL [address] [place], [place] [phone] Mariangel Ruff [address] [place], [place] [phone] documented as of this encounter Visit Diagnoses Not on filedocumented in this encounter Care Teams Slp Teacher Relationship Specialty Start Date End Date Umm Coley MD [address] [place], [place] [phone] PCP - General Family Medicine 10/31/16 Eva Nunez Health Care Sanitary Technician 04/05/24 07/06/24 [facility] 05/11/24 11/17/24 [facility] 11/14/24 documented as of this encounter
--- OUTSIDE RECORDS SUMMARY | 2024-12-27 17:25 | XMS_ITS | Encounter Summary ---
Author Organization [employer] Address [address] [facility] 7t [place] [address] Care Team Providers Care Metal Inspector Name Role Phone Umm Coley MD Primary Care Provider + Reason for Visit * Reason Comments Med Refill Encounter Details Date Type Department Care Team (Late Contact Info) Description 05/21/2023 Refill [facility] MEDICINE [address] [place], [place] [phone] Umm Coley MD [address] [place] [address] Arthritis of knee Social History Tobacco Use [...] 10:00 AM EDT Office Visit [facility] ADULT DENTAL [address] [place] [address] Mariangel Ruff [address] [place] [address] documented as of this encounter Visit Diagnoses Diagnosis Arthritis of knee Unspecified arthropathy, lower leg documented in this encounter Additional Health Concerns Assessment Noted Time PHQ-9 Depression Total Score: 12 023 1:58 PM EDT documented as of this encounter Care Teams Metal Inspector Relationship Specialty Start Date End Date Umm Coley MD [address] [place] [address] PCP - General Family Medicine 10/31/16 Eva Nunez Cook Enchilada 04/05/24 07/06/24 [facility] 05/11/24 11/17/24 [facility] 11/14/24 documented as of this encounter
--- OUTSIDE RECORDS SUMMARY | 2024-12-27 17:25 | XMS_ITS | Encounter Summary ---
Author Organization [employer] Address [address] [facility] 7t [place] [address] Care Team Providers Care Turntable Man Name Role Phone Umm Coley MD Primary Care Provider + Encounter Details Date Type Department Care Team (Late st Contact Info) Description 03/05/2023 Orders Only [facility] MEDICINE [address] [place], [place] [phone] Umm Coley MD [address] [place], [place] [phone] Social History Tobacco Use Types Packs/Day Years [...] Description 03/08/2025 10:00 AM EDT Office Visit [facility] ADULT DENTAL [address] [place], [place] [phone] Mariangel Ruff [address] [place] [address] documented as of this encounter Visit Diagnoses Not on filedocumented in this encounter Care Teams Turntable Man Relationship Specialty Start Date End Date Umm Coley MD [address] [place] [address] PCP - General Family Medicine 10/31/16 Eva Nunez Die Casting Machine Setter 04/05/24 07/06/24 [facility] 05/11/24 11/17/24 [facility] 11/14/24 documented as of this encounter
--- OUTSIDE RECORDS SUMMARY | 2024-12-27 17:25 | XMS_ITS | Encounter Summary ---
Author Organization [employer] Address [address] [facility] 7t [place] [address] Care Team Providers Care Label Coder Name Role Phone Umm Coley MD Primary Care Provider + Reason for Visit * Reason Onset Date Comments Appointment 02/24/2023 Encounter Details Date Type Department Care Team ([facility] st Contact Info) Description 02/24/2023 Telephone [facility] ADULT DENTAL [address] [place] [address] Johnny Gonzalez, DMD [address] [place] [address] Appointment Social History Tobacco Use Types Packs/Day [...] Description 03/08/2025 10:00 AM EDT Office Visit [facility] ADULT DENTAL [address] [place] [address] Trino Ruffaris [address] [place] [address] documented as of this encounter Visit Diagnoses Not on filedocumented in this encounter Care Teams Label Coder Relationship Specialty Start Date End Date Umm Coley MD [address] [place] [address] PCP - General Family Medicine 10/31/16 Eva Nunez Bobbin Dumper 04/05/24 07/06/24 [facility] 05/11/24 11/17/24 [facility] 11/14/24 documented as of this encounter
--- OUTSIDE RECORDS SUMMARY | 2024-12-27 17:25 | XMS_ITS | Encounter Summary ---
Author Organization [employer] Address [address] [facility] 7t [place] [address] Care Team Providers Care Conservation Coordinator Name Role Phone Umm Coley MD Primary Care Provider + Reason for Visit * Reason Onset Date Comments Appointment 03/17/2023 Encounter Details Date Type Department Care Team ([facility] st Contact Info) Description 03/17/2023 Telephone [facility] ADULT DENTAL [address] [place] [address] Johnny Gonzalez, DMD [address] [place] [address] Appointment Social History Tobacco Use Types Packs/Day [...] 10:00 AM EDT Office Visit [facility] ADULT DENTAL [address] [place], [place] [phone] Mariangel Ruff [address] [place] [address] documented as of this encounter Visit Diagnoses Not on filedocumented in this encounter Care Teams Conservation Coordinator Relationship Specialty Start Date End Date Umm Coley MD [address] [place] [address] PCP - General Family Medicine 10/31/16 Eva Nunez Mold Tooler 04/05/24 07/06/24 [facility] 05/11/24 11/17/24 [facility] 11/14/24 documented as of this encounter
--- OUTSIDE RECORDS SUMMARY | 2024-12-27 17:25 | XMS_ITS | Clinical Summary ---
Author Organization Unknown Care Team Providers Care Sql Server Architect Name Role Phone DANIEL JACOBS, SHALONDA Unavailable Unavailable DUANE YODER, TEE Unavailable Unavailable Payers Payer Name Policy Type Policy Number Effective Date Expira tion Date MEDICAID [facility] [id number] Problems Condition Name Condition Details Condition Category [...] UNSPECIFIED SITE Active 5-12 00:00: 00 OTHER HALFWAY (CURRENT) DRUG THERAPY Active 1-15 00:00: 00 HALFWAY (CURRENT) USE OF NON-STEROIDA L NON-INFLAM (NSAID) [...] on aerosol inhaler 01-20 00:00: 00 Yes [id number] Per instruc tions DOS VECES AL D Per instructio ns DOS VECES AL D (route: inhalation ) Med Classific ation: Respirato ry Therapy Agents magnesium oxide 400 mg (241.3 mg magnesium) tablet 01-30 00:00: 00 11-14 00:00 :00 No [id number] Per instruc tions TOME NAIMA TABLETA TODOS LOS D Per instructio ns TOME NAIMA TABLETA TODOS LOS D (route: oral) Med Classific ation: Electroly te Balance-N utritiona l Products buspirone 15 mg tablet 01-16 00:00: 00 Yes [id number] Per instruc tions TOME NAIMA TABLETA CHEMA VECES AL D Per instructio ns TOME NAIMA TABLETA CHEMA VECES AL D (route: oral) Med Classific ation: Central Nervous System Agents melatonin 5 mg tablet 01-30 00:00: 00 Yes [id number] Per instruc tions EVERYDAY AT 5 PM FOR 2 WEEKS THEN MAY INCREASE TO 2 TABS E VERYDAY AT Per instructio ns EVERYDAY AT 5 PM FOR 2 WEEKS THEN MAY INCREASE TO 2 TABS E VERYDAY AT (route: oral) Med Classific ation: Central Nervous System Agents loratadine 10 mg tablet 01-04 00:00: 00 Yes [id number] Per instruc tions TOME NAIMA TABLETA TODOS LOS D Per instructio ns TOME NAIMA TABLETA TODOS LOS D (route: oral) Med Classific ation: Respirato ry Therapy Agents senna 8.6 mg tablet 01-30 00:00: 00 Yes [id number] Per instruc tions TODOS LOS D Per instructio ns TODOS LOS D (route: oral) Med Classific ation: Gastroint estinal Therapy Agents omeprazole 20 mg capsule,del ayed release 01-27 00:00: 00 Yes [id number] Per instruc tions TODOS LOS D Per instructio ns TODOS LOS D (route: oral) Med Classific ation: Gastroint estinal Therapy Agents mirtazapine 45 mg tablet 24 00:00: 00 Yes [id number] Per instruc tions AT BEDTIME DIRECTED Per instructio ns AT BEDTIME DIRECTED (route: oral) Med Classific ation: Central Nervous System Agents famotidine 40 mg tablet 01-30 00:00: 00 11-14 00:00 :00 No [id number] Per instruc tions Per instructio ns (route: oral) Med Classific ation: Gastroint estinal Therapy Agents olanzapine 20 mg tablet 01-30 00:00: 00 Yes [id number] Per instruc tions AT BEDTIME Per instructio ns AT BEDTIME (route: oral) Med Classific ation: Central Nervous System Agents clonazepam 1 mg tablet 01-08 00:00: 00 Yes [id number] Per instruc tions TOME NAIMA TABLETA DOS VECES AL D Per instructio ns TOME NAIMA TABLETA DOS VECES AL D (route: oral) Med Classific ation: Central Nervous System Agents dicyclomine 20 mg tablet 01-08 00:00: 00 Yes [id number] Per instruc tions CUATRO VECES AL D Per instructio ns CUATRO VECES AL D (route: oral) Med Classific ation: Gastroint estinal Therapy Agents amlodipine 2.5 mg tablet 01-19 00:00: 00 11-14 00:00 :00 No [id number] Per instruc tions TOME NAIMA TABLETA TODOS LOS D Per instructio ns TOME NAIMA TABLETA TODOS LOS D (route: oral) Med Classific ation: Cardiovas cular Therapy Agents sertraline 100 mg tablet 17 00:00: 00 Yes [id number] Per instruc tions TODOS LOS D Per instructio ns TODOS LOS D (route: oral) Med Classific ation: Central Nervous System Agents nabumetone 500 mg tablet 01-31 00:00: 00 11-14 00:00 :00 No [id number] Per instruc tions TOME NAIMA TABLETA DOS VECES AL D Per instructio ns TOME NAIMA TABLETA DOS VECES AL D (route: oral) Med Classific ation: Analgesic , Anti-infl ammatory or Antipyret ic amitriptyli ne 50 mg tablet 01-27 00:00: 00 Yes [id number] Per instruc tions TOME NAIMA TABLETA TODOS LOS D AL ACOSTARSE FOR 30 DAYS Per instructio ns TOME NAIMA TABLETA TODOS LOS D AL ACOSTARSE FOR 30 DAYS (route: oral) Med Classific ation: Central Nervous System Agents prazosin 2 mg capsule 01-22 00:00: 00 Yes [id number] Per instruc tions TODOS LOS D Per instructio ns TODOS LOS D (route: oral) Med Classific ation: Cardiovas cular Therapy Agents cholecalcif juan (vitamin D3) 50 mcg (2,000 unit) capsule 01-08 00:00: 00 Yes [id number] Per instruc tions PSULA TODOS LOS D Per instructio ns PSULA TODOS LOS D (route: oral) Med Classific ation: Electroly te Balance-N utritiona l Products cyanocobala min (vit B-12) 100 mcg tablet 01-16 00:00: 00 Yes [id number] Per instruc tions TODOS LOS D Per instructio ns TODOS LOS D (route: oral) Med Classific ation: Electroly te Balance-N utritiona l Products FeroSul 325 mg (65 mg iron) tablet 11-13 00:00: 00 Yes [id number] 325 mg 3 TIMES A WEEK 325 mg 3 TIMES A WEEK (route: oral) Med Classific ation: Electroly te Balance-N utritiona l Products Vitamin C 500 mg chewable tablet 11-13 00:00: 00 Yes [id number] 500 mg 3 TIMES A WEEK 500 [...] AWARENESS FOR SAFETY AND WILL NOTIFY CLINICAL MEDIA RELATIONS MANAGER AND PHYSICIAN/PROVIDER WITH ANY CHANGE IN CONDITION. [code = SKILLED NURSE WILL MAINTAIN SITUATIONAL AWARENESS FOR SAFETY AND WILL NOTIFY CLINICAL MEDIA RELATIONS MANAGER AND PHYSICIAN/PROVIDER WITH ANY CHANGE IN CONDITION.] Goal Patient Goal - T O FEEL HAPPY AND NOT BE TIRED ALL THE TIME. Goal Provider Goal - A PLAN OF CARE WILL BE ESTABLISHED THAT MEETS PATIENT'S ALF NEEDS AND INCLUDES PATIENT GOAL FOR HOME [...] End Date/Time Encounter Type Admission Type Attending [facility] Care Department Encounter ID Discharge Date Discharge Status Discharge Condition Discharge Reason Percent Goals Met 2024-11-14 00:00:00 2024-12-08 00:00:00 Outpatient [facility] [id number] 2024-12-08 00:00:00 DISCHARGE TO HOME OR SELF CARE INDEPENDEN T WITH USE OF ASSISTIVE DEVICE NON COMPLIANT WITH PLAN OF TREATMENT 5.88
--- OUTSIDE RECORDS SUMMARY | 2024-12-27 17:25 | XMS_ITS | Encounter Summary ---
Author Organization [employer] Address [address] [facility] 7t [place] [address] Care Team Providers Care Veterinary Science Teacher Name Role Phone Umm Coley MD Primary Care Provider + Reason for Visit * Reason Comments Med Refill Encounter Details Date Type Department Care Team (Late st Contact Info) Description 02/05/2023 Refill [facility] MEDICINE [address] [place] [address] Umm Coley MD [address] [place], [place] [phone] Arthritis of knee Social History Tobacco Use [...] Description 03/08/2025 10:00 AM EDT Office Visit [facility] ADULT DENTAL [address] [place], [place] [phone] Mariangel Ruff [address] [place] [address] documented as of this encounter Visit Diagnoses Diagnosis Arthritis of knee Unspecified arthropathy, lower leg documented in this encounter Care Teams Veterinary Science Teacher Relationship Specialty Start Date End Date Umm Coley MD [address] [place] [address] PCP - General Family Medicine 10/31/16 Eva Nunez Stitching Machine Setter 04/05/24 07/06/24 [facility] 05/11/24 11/17/24 [facility] 11/14/24 documented as of this encounter
--- OUTSIDE RECORDS SUMMARY | 2024-12-27 17:25 | XMS_ITS | Encounter Summary ---
Author Organization [employer] Address [address] [facility] 7t [place] [address] Care Team Providers Care Grinder Gear Name Role Phone Umm Coley MD Primary Care Provider + Reason for Visit * Reason Comments Med Change Request Encounter Details Date Type Department Care Team ([facility] Contact Info) Description 03/20/2023 Refill [facility] ADULT DENTAL [address] [place] [address] Johnny Gonzalez DMD [address] [place] [address] Social History Tobacco Use Types Packs/Day Years [...] 03/08/2025 10:00 AM EDT Office Visit [facility] ADULT DENTAL [address] [place], [place] [phone] Mariangel Ruff [address] [place], [place] [phone] documented as of this encounter Visit Diagnoses Not on filedocumented in this encounter Care Teams Grinder Gear Relationship Specialty Start Date End Date Umm Coley MD [address] [place], [place] [phone] PCP - General Family Medicine 10/31/16 Eva Nunez Clay Mixer 04/05/24 07/06/24 [facility] 05/11/24 11/17/24 [facility] 11/14/24 documented as of this encounter
== END 2024-12-27 13:56 | disposition home or self-care (01) ==
LOC: HO.HHCX 13:55
PROVIDERS: Visit Provider Internal Medicine
DX: R07.82 Intercostal pain (principal)
CPT/HCPCS: 71046; 71100

== ENCOUNTER → 2024-12-27 13:56 | Outpatient (BNV) | payer MEDICAID, SELFPAY | PROVIDERS: Visit Provider Radiology Diagnostic Radiology | DX: R07.1 Chest pain on breathing (principal) | CPT/HCPCS: 71046; 71100 ==

== ENCOUNTER 2024-12-28 09:41 | Outpatient (REF) | payer MEDICAID, SELFPAY ==
--- NOTE | ~2024-12-28 | XR_ITS ---
EXAMINATION: XR WRIST, RIGHT CLINICAL INFORMATION: M25.531 - Pain in right wrist COMPARISON: December 23, 2024. TECHNIQUE: PA, lateral, and oblique views of the right wrist. FINDINGS: Patient is on a fiberglass cast. There is a dorsally displaced fracture with overriding fragments involving distal metaphysis of the radius. No callus formation. Abnormal alignment. There is a nondisplaced fracture distal epiphysis of the ulna. There is a fracture of the styloid process of right ulna. The carpal bones appear intact. The metacarpal bones are grossly intact. XR/XR wrist RT min 3V IMPRESSION: No healing of the dorsally displaced fracture distal metaphysis right radius. Electronically signed by: Steven Coreas MD 12/28/2024 02:24 PM [facility]
--- OUTSIDE RECORDS SUMMARY | 2024-12-28 11:13 | XMS_ITS | Encounter Summary ---
Author Organization [employer] Address [address] [facility] 7t [place] [address] Care Team Providers Care Microsoft Crm Developer Name Role Phone Umm Coley MD Primary [...] Description 03/08/2025 10:00 AM EDT Office Visit [facility] ADULT DENTAL [address] [place] [address] Elzbieta, Mariangel [address] [place] [address] documented as of this encounter Visit Diagnoses Not on filedocumented in this encounter Additional Health Concerns Assessment Noted Time PHQ-9 Depression Total Score: 10 024 9:17 AM EDT documented as of this encounter Care Teams Microsoft Crm Developer Relationship Specialty Start Date End Date Umm Coley MD [address] [place] [address] PCP - General Family Medicine 10/31/16 [facility] 11/14/24 documented as of this encounter
--- OUTSIDE RECORDS SUMMARY | 2024-12-28 11:13 | XMS_ITS | Encounter Summary ---
Author Organization [employer] Address [address] [facility] 7t [place] [address] Care Team Providers Care Herbarium Worker Name Role Phone Umm Coley MD Primary Care Provider + Reason for Visit * Reason Onset Date Comments Chart prep 12/07/2024 Encounter Details Date Type Department Care Team ([facility] st Contact Info) Description 12/07/2024 Telephone [facility] MEDICINE [address] [place], [place] [phone] Juana Connor MA Chart prep Social History [...] Description 03/08/2025 10:00 AM EDT Office Visit [facility] ADULT DENTAL [address] [place] [address] Trino Ruffaris [address] [place] [address] documented as of this encounter Visit Diagnoses Not on filedocumented in this encounter Additional Health Concerns Assessment Noted Time PHQ-9 Depression Total Score: 10 024 9:17 AM EDT documented as of this encounter Care Teams Herbarium Worker Relationship Specialty Start Date End Date Umm Coley MD [address] [place] [address] PCP - General Family Medicine 10/31/16 [facility] 11/14/24 documented as of this encounter
--- OUTSIDE RECORDS SUMMARY | 2024-12-28 11:13 | XMS_ITS | Encounter Summary ---
Author Organization [employer] Address [address] [facility] 7t [place] [address] Care Team Providers Care Payroll And Benefits Assistant Name Role Phone Umm Coley MD Primary Care Provider + Reason for Visit * Reason Onset Date Comments FYI. 12/08/2024 Encounter Details Date Type Department Care Team ([facility] st Contact Info) Description 12/08/2024 Telephone [facility] MEDICINE [address] [place], [place] [phone] Umm Coley MD [address] [place], [place] [phone] FYI. Social History Tobacco Use Types Packs/Day [...] AM EST TC returned to Mir Almonte [phone] in regards to below message. Tyrel did [...] contact Tyrel with any further questions at [phone]. documented in this encounter Plan of Treatment Upcoming Encounters Date Type Department Care Team (Late st Contact Info) Description 03/08/2025 10:00 AM EDT Office Visit [facility] ADULT DENTAL [address] [place], [place] [phone] Trino Ruffaris [address] [place] [address] documented as of this encounter Visit Diagnoses Not on filedocumented in this encounter Additional Health Concerns Assessment Noted Time PHQ-9 Depression Total Score: 10 024 9:17 AM EDT documented as of this encounter Care Teams Payroll And Benefits Assistant Relationship Specialty Start Date End Date Umm Coley MD [address] [place] [address] PCP - General Family Medicine 10/31/16 [facility] 11/14/24 documented as of this encounter
--- OUTSIDE RECORDS SUMMARY | 2024-12-28 11:13 | XMS_ITS | Encounter Summary ---
Author Organization [employer] Address [address] [facility] 7t [place] [address] Care Team Providers Care Counter Top Maker Name Role Phone Umm Coley MD Primary Care Provider + Reason for Visit * Reason Comments Medication Problem Encounter Details Date Type Department Care Team ([facility] st Contact Info) Description 12/08/2024 12:15 PM EST Office Visit [facility] MEDICINE [address] [place], [place] [phone] Umm Coley MD [address] [place], [place] [phone] Recurrent falls (Primary Dx); Neuropathy of both [...] the nurse that she had followed to [facility] wanted her to sign some [facility] documents (reportedly to provide services?) that she didn't feel comfortable signing and didn't offer further explanation so the nurse walked out of the house and she was discharged from the [facility]. She's concerned that she only has med [...] comfortable taking meds by herself and her TRANSPLANT REGISTERED NURSE doesn't know how to put them on [...] we can organize the medications. Pt and TRANSPLANT REGISTERED NURSE agreed with the plan of care. POC discussed with team nurse and sewing room supervisor. Neuropathy of both feet Generalized anxiety [...] DORMIR mirtazapine (Remeron) 30 MG tablet TOME NAMIA TABLETA ORALLY BEDTIME REPLACES PRIOR DOSE OF [...] we can organize the medications. Pt and TRANSPLANT REGISTERED NURSE agreed with the plan of care. POC discussed with team nurse and sewing room supervisor. * Addendum Note - Umm Coley MD - 12/08/2024 12:15 PM ESTAddended by: UMM COLEY on: 12/12/2024 12:28 PM Modules accepted: Level of Service documented in this encounter Plan of Treatment Upcoming Encounters Date Type Department Care Team (Late st Contact Info) Description 03/08/2025 10:00 AM EDT Office Visit [facility] ADULT DENTAL [address] [place] [address] Elzbieta, Mariangel [address] [place] [address] documented as of this encounter Visit Diagnoses Diagnosis Recurrent falls- Primary Neuropathy of both feet Generalized anxiety disorder documented in this encounter Additional Health Concerns Assessment Noted Time PHQ-9 Depression Total Score: 10 024 9:17 AM EDT documented as of this encounter Care Teams Counter Top Maker Relationship Specialty Start Date End Date Umm Coley MD [address] [place] [address] PCP - General Family Medicine 10/31/16 [facility] 11/14/24 documented as of this encounter
--- OUTSIDE RECORDS SUMMARY | 2024-12-28 11:13 | XMS_ITS | Encounter Summary ---
Author Organization [employer] Address [address] [facility] 7t [place] [address] Care Team Providers Care Marine Fire Fighter Name Role Phone Umm Coley MD Primary Care Provider + Reason for Visit * Reason Onset Date Comments Appointment Request 12/22/2024 Encounter Details Date Type Department Care Team ([facility] st Contact Info) Description 12/22/2024 Telephone [facility] MEDICINE [address] [place], [place] [phone] Umm Coley MD [address] [place], [place] [phone] Appointment Request Social History Tobacco Use Types [...] 10:27 AM EST TC returned to patient [phone] in regards to below message. Patient reports [...] AM EST Tc from pt returning call. Tamazight * Telephone Encounter - Gisela Reynoso RN - 12/22/2024 8:36 AM EST TC placed to patient [phone] in regards to below message. Patient did [...] available to be scheduled. Contact pt at [phone] documented in this encounter Plan of Treatment Upcoming Encounters Date Type Department Care Team (Late st Contact Info) Description 03/08/2025 10:00 AM EDT Office Visit [facility] ADULT DENTAL [address] [place], [place] [phone] ElzbietaMariangel [address] [place] [address] documented as of this encounter Visit Diagnoses Not on filedocumented in this encounter Additional Health Concerns Assessment Noted Time PHQ-9 Depression Total Score: 10 024 9:17 AM EDT documented as of this encounter Care Teams Marine Fire Fighter Relationship Specialty Start Date End Date Umm Coley MD [address] [place] [address] PCP - General Family Medicine 10/31/16 [facility] 11/14/24 documented as of this encounter
--- OUTSIDE RECORDS SUMMARY | 2024-12-28 11:13 | XMS_ITS | Encounter Summary ---
Author Organization [employer] Address [address] [facility] 7t [place] [address] Care Team Providers Care Special Distribution Clerk Name Role Phone Umm Coley MD Primary Care Provider + Reason for Visit * Reason Onset Date Comments Call Back Request 12/20/2024 Encounter Details Date Type Department Care Team ([facility] st Contact Info) Description 12/20/2024 Telephone [facility] MEDICINE [address] [place], [place] [phone] Umm Coley MD [address] [place], [place] [phone] Call Back Request Social History Tobacco Use [...] PM EST RN was informed by [facility] ([facility]) that they have changed the patients nurse to a female nurse. Patient's VNA will now be [facility]. * Telephone Encounter - Deyvi Bray RN - 12/21/2024 9:51 AM EST TC returned to patient (via [facility] vessel specialist) no answer left voicemail to return call to clinic. * Telephone Encounter - Rossana Lawrence - 12/21/2024 9:32 AM EST Tc from pt requesting a call back regarding message below. Portuguese * Telephone Encounter - Umm Coley MD - 12/20/2024 4:24 PM EST Nurse supervisor backfilling note re meds appreciated. Agree with POC, [...] 3:28 PM EST Spoke to patient (with [facility] medical sales representative) regarding VNA nurse and meds (as discussed [...] RN discposed of medications in sharps container ([facility] medical sales representative witnessed disposal). One pill was orange/red capsule [...] if we can switch them. RN called [facility] VNA spoke to director Zara whowas [...] verbalized understanding and will return call to branch operation evaluation manager if she is able to find [...] reports she has a new VNA service ([facility]) which started on Thursday. Patient reports on Thursday it was two females who went to the patients ripley and they put all the medications on [...] name and confirm he is employed by [facility]. Patient reports she is having a hard time trusting the VNAand that he is aware of what he is doing. TC placed to VNA Randy [phone] to discuss above situation. Randy VNA reports [...] to PCP who requested RN call Deyvi (branch operation evaluation manager) to speak to patient. RN called [...] a Nurse of PCP Contact pt at [phone] documented in this encounter Plan of Treatment Upcoming Encounters Date Type Department Care Team (Late st Contact Info) Description 03/08/2025 10:00 AM EDT Office Visit [facility] ADULT DENTAL [address] [place] [address] Elzbieta, Mariangel [address] [place] [address] documented as of this encounter Visit Diagnoses Not on filedocumented in this encounter Additional Health Concerns Assessment Noted Time PHQ-9 Depression Total Score: 10 024 9:17 AM EDT documented as of this encounter Care Teams Special Distribution Clerk Relationship Specialty Start Date End Date Umm Coley MD [address] [place] [address] PCP - General Family Medicine 10/31/16 [facility] 11/14/24 documented as of this encounter
--- OUTSIDE RECORDS SUMMARY | 2024-12-28 11:13 | XMS_ITS | Encounter Summary ---
Author Organization [employer] Address [address] [facility] 7t [place] [address] Care Team Providers Care Lead Fire Protection Engineer Name Role Phone Umm Coley MD Primary Care Provider + Reason for Visit * Reason Onset Date Comments VNA services 12/08/2024 Encounter Details Date Type Department Care Team ([facility] st Contact Info) Description 12/08/2024 Telephone [facility] MEDICINE [address] [place], [place] [phone] Gisela Reynoso, BEBA [address] [place], [place] [phone] VNA services Social History Tobacco Use Types [...] can fill the patients lock box at [facility] (she uses [facility] not [facility] pharmacy) to bridge the gap until patient can become established with a new VNA. PCP reports she willing to pre-fill medbox however wants to ensure it is acceptable legally. RN spoke to Sana with PCP, who informed it is acceptable for medications to be placed in lock boxby [facility] however the visit should be billed [...] [facility] ([facility] liasion) will not be servicing [facility] today d/t the weather however advised RN to fax referral to [phone] (confirmation page received). [facility] will notify office of referral urgency. documented in this encounter Plan of Treatment Upcoming Encounters Date Type Department Care Team (Late st Contact Info) Description 03/08/2025 10:00 AM EDT Office Visit [facility] ADULT DENTAL [address] [place] [address] Trino Ruffaris [address] [place] [address] documented as of this encounter Visit Diagnoses Not on filedocumented in this encounter Additional Health Concerns Assessment Noted Time PHQ-9 Depression Total Score: 10 06/10/ 024 9:17 AM EDT documented as of this encounter Care Teams Lead Fire Protection Engineer Relationship Specialty Start Date End Date Umm Coley MD [address] [place] [address] PCP - General Family Medicine 10/31/16 [facility] 11/14/24 documented as of this encounter
--- OUTSIDE RECORDS SUMMARY | 2024-12-28 11:13 | XMS_ITS | Encounter Summary ---
Author Organization [employer] Address 75 [facility] 7t [place] [address] Care Team Providers Care Registered Private Duty Nurse Name Role Phone Umm Coley MD Primary Care Provider + Reason for Visit * Reason Onset Date Comments appt 01/08/2024 Encounter Details Date Type Department Care Team ([facility] st Contact Info) Description 01/08/2024 Telephone [facility] ADULT DENTAL [address] [place], [place] [phone] Homer Strong, DMD [address] [place] [address] appt Social History Tobacco Use Types Packs/Day [...] Description 03/08/2025 10:00 AM EDT Office Visit [facility] ADULT DENTAL [address] [place] [address] Elzbieta, Mariangel [address] [place] [address] documented as of this encounter Visit Diagnoses Not on filedocumented in this encounter Additional Health Concerns Assessment Noted Time PHQ-9 Depression Total Score: 21 024 11:31 AM EST documented as of this encounter Care Teams Registered Private Duty Nurse Relationship Specialty Start Date End Date Umm Coley MD [address] [place] [address] PCP - General Family Medicine 10/31/16 Eva Nunez [employer] 04/05/24 07/06/24 [facility] 05/11/24 11/17/24 [facility] 11/14/24 documented as of this encounter
--- OUTSIDE RECORDS SUMMARY | 2024-12-28 11:13 | XMS_ITS | Encounter Summary ---
Author Organization [employer] Address [address] [facility] 7t [place] [address] Care Team Providers Care Entry Level Software Developer Name Role Phone Umm Coley MD [...] Description 03/08/2025 10:00 AM EDT Office Visit [facility] ADULT DENTAL [address] [place] [address] Elzbieta, Mariangel [address] [place] [address] documented as of this encounter Visit Diagnoses Not on filedocumented in this encounter Additional Health Concerns Assessment Noted Time PHQ-9 Depression Total Score: 10 024 9:17 AM EDT documented as of this encounter Care Teams Entry Level Software Developer Relationship Specialty Start Date End Date Umm Coley MD [address] [place] [address] PCP - General Family Medicine 10/31/16 [facility] 11/14/24 documented as of this encounter
--- OUTSIDE RECORDS SUMMARY | 2024-12-28 11:13 | XMS_ITS | Encounter Summary ---
Author Organization [employer] Address [address] [facility] 7t [place] [address] Care Team Providers Care Content Strategy Lead Name Role Phone Umm Coley MD Primary Care Provider + Reason for Visit * Reason Onset Date Comments PCP Contact 12/08/2024 Medbox set up. Encounter Details Date Type Department Care Team ([facility] Contact Info) Description 12/13/[address] [facility] MEDICINE [address] [place], [place] [phone] Umm Coley MD 230 [place], [place] [phone] PCP Contact (Medbox set up.) Social History [...] EST Patient came on Thursday12/09/24 with her STRUCTURAL STEEL WORKER APPRENTICE and they brought the log med box [...] with pharmaco education, discussing with patient and STRUCTURAL STEEL WORKER APPRENTICE regarding the useand side effects of medications. [...] counselor for this polypharmacy I gave patient's STRUCTURAL STEEL WORKER APPRENTICE the med box for that day and [...] [facility] [address] [place] [address] Elzbieta, Mariangel [address] [place] [address] documented as of this encounter Visit Diagnoses Not on filedocumented in this encounter Additional Health Concerns Assessment Noted Time PHQ-9 Depression Total Score: 10 024 9:17 AM EDT documented as of this encounter Care Teams Content Strategy Lead Relationship Specialty Start Date End Date Umm Coley MD 230 [place] [address] PCP - General Family Medicine 10/31/16 [facility] 11/14/24 documented as of this encounter
--- OUTSIDE RECORDS SUMMARY | 2024-12-28 11:14 | XMS_ITS | Encounter Summary ---
Author Organization [employer] Address 75 [facility] 7t [place] [address] Care Team Providers Care Wildland Fire Fighter Name Role Phone Umm Coley MD Primary Care Provider + Reason for Visit * Reason Onset Date Comments ED f/u call 12/26/2024 Encounter Details Date Type Department Care Team ([facility] st Contact Info) Description 12/26/2024 Telephone [facility] MEDICINE [address] [place], [place] [phone] Umm Coley MD [address] [place], [place] [phone] ED f/u call Social History Tobacco Use [...] reports she is scheduled to see [facility] ortho on 12/28 at 10:15am [facility] Patient is scheduled to see PCP tomorrow [...] AM EST Noted. TC placed to patient [phone] in regards to below message. Patient did [...] Office Visit [facility] ADULT DENTAL [address] [place] [address] Mariangel Ruff [address] [place] [address] documented as of this encounter Visit Diagnoses Not on filedocumented in this encounter Additional Health Concerns Assessment Noted Time PHQ-9 Depression Total Score: 10 024 9:17 AM EDT documented as of this encounter Care Teams Wildland Fire Fighter Relationship Specialty Start Date End Date Umm Coley MD [address] [place] [address] PCP - General Family Medicine 10/31/16 [facility] 11/14/24 documented as of this encounter
--- OUTSIDE RECORDS SUMMARY | 2024-12-28 11:14 | XMS_ITS | Encounter Summary ---
Author Organization [employer] Address 75 [facility] 7t [place] [address] Care Team Providers Care Oracle Adf Developer Name Role Phone Umm Coley MD Primary Care Provider + Reason for Visit * Reason Onset Date Comments Chart prep 12/23/2024 Encounter Details Date Type Department Care Team ([facility] st Contact Info) Description 12/23/2024 Telephone [facility] MEDICINE [address] [place], [place] [phone] Umm Coley MD [address] [place], [place] [phone] Chart prep Social History Tobacco Use Types [...] 10:00 AM EDT Office Visit [facility] ADULT DENTAL [address] [place] [address] Trino Ruffaris [address] [place] [address] documented as of this encounter Visit Diagnoses Not on filedocumented in this encounter Additional Health Concerns Assessment Noted Time PHQ-9 Depression Total Score: 10 024 9:17 AM EDT documented as of this encounter Care Teams Oracle Adf Developer Relationship Specialty Start Date End Date Umm Coley MD 230 [place], [place] [phone] PCP - General Family Medicine 10/31/16 [facility] 11/14/24 documented as of this encounter
--- OUTSIDE RECORDS SUMMARY | 2024-12-28 11:14 | XMS_ITS | Encounter Summary ---
Author Organization [employer] Address [address] [facility] 7t [place] [address] Care Team Providers Care Em Physician Name Role Phone Umm Coley MD Primary [...] [facility] ADULT DENTAL [address] [place] [address] Elzbieta, Mariangel [address] [place] [address] documented as of this encounter Visit Diagnoses Not on filedocumented in this encounter Additional Health Concerns Assessment Noted Time PHQ-9 Depression Total Score: 10 024 9:17 AM EDT documented as of this encounter Care Teams Em Physician Relationship Specialty Start Date End Date Umm Coley MD 230 [place] [address] PCP - General Family Medicine 10/31/16 [facility] 11/14/24 documented as of this encounter
--- OUTSIDE RECORDS SUMMARY | 2024-12-28 11:14 | XMS_ITS | Encounter Summary ---
Author Organization [employer] [facility] Address [address] [place] [address] 7t [place] [address] Care Team Providers Care Food Safety Specialist Name Role Phone Umm Coley MD Primary Care Provider + Reason for Visit * Reason Comments Med Refill Encounter Details Date Type Department Care Team (Late st Contact Info) Description 08/01/2023 Refill [facility] MEDICINE [address] [place], [place] [phone] Umm Coley MD 230 [place], [place] [phone] Social History Tobacco Use Types Packs/Day Years [...] Description 03/08/2025 10:00 AM EDT Office Visit [facility] ADULT DENTAL [address] [place], [place] [phone] Mariangel Ruff [address] [place] [address] documented as of this encounter Visit Diagnoses Not on filedocumented in this encounter Additional Health Concerns Assessment Noted Time PHQ-9 Depression Total Score: 12 023 1:58 PM EDT documented as of this encounter Care Teams Food Safety Specialist Relationship Specialty Start Date End Date Umm Coley MD [address] [place] [address] PCP - General Family Medicine 10/31/16 Eva Nunez Pipe Smoking Machine Operator 04/05/24 07/06/24 [facility] 05/11/24 11/17/24 [facility] 11/14/24 documented as of this encounter
--- OUTSIDE RECORDS SUMMARY | 2024-12-28 11:14 | XMS_ITS | Encounter Summary ---
Author Organization [employer] Address 75 [facility] 7t [place] [address] Care Team Providers Care Cop Winder Name Role Phone Umm Coley MD Primary Care Provider + Encounter Details Date Type Department Care Team (Late st Contact Info) Description 11/03/2022 Orders Only [facility] MEDICINE [address] [place], [place] [phone] Umm Coley MD 230 [place], [place] [phone] Osteopenia after menopause (Primary Dx) Social History [...] [facility] 230 [place], [place] [phone] Mariangel Ruff [address] [place], [place] [phone] Scheduled Orders Name Type Priority Associated Diagnoses Orde r Schedule Vitamin D, 25-Hydroxy, Total, Immunoassay Lab Routine Osteopenia after menopause Expected: 11/03/2022 (Approximate), Expires: 11/03/2023 PTH, Intact (ICMA) And Ionized Calcium Lab Routine Osteopenia after menopause Expected: 11/03/2022 (Approximate), Expires: 11/03/2023 documented as of this encounter Visit Diagnoses Diagnosis Osteopenia after menopause- Primary documented in this encounter Care Teams Cop Winder Relationship Specialty Start Date End Date Umm Coley MD 230 [place] [address] PCP - General Family Medicine 10/31/16 Eva Nunez Insulation Applicator 04/05/24 07/06/24 [facility] 05/11/24 11/17/24 [facility] 11/14/24 documented as of this encounter
--- OUTSIDE RECORDS SUMMARY | 2024-12-28 11:14 | XMS_ITS | Encounter Summary ---
Author Organization [employer] [facility] Address [address] [place] [address] 7t [place] [address] Care Team Providers Care Malted Milk Supervisor Name Role Phone Umm Coley MD Primary Care Provider + Encounter Details Date Type Department Care Team (Late st Contact Info) Description 09/24/2022 Abstract [facility] ADULT DENTAL [address] [place] [address] Dental, Provider, DDS Social History Tobacco Use [...] Visit [facility] ADULT DENTAL [address] [place] [address] Mariangel Ruff [address] [place] [address] documented as of this encounter Procedures Procedure [...] on filedocumented in this encounter Care Teams Malted Milk Supervisor Relationship Specialty Start Date End Date Umm Coley MD [address] [place] [address] PCP - General Family Medicine 10/31/16 Eva Nunez Derivatives Trader 04/05/24 07/06/24 [facility] 05/11/24 11/17/24 [facility] 11/14/24 documented as of this encounter
--- OUTSIDE RECORDS SUMMARY | 2024-12-28 11:14 | XMS_ITS | Encounter Summary ---
Author Organization [employer] Address [address] [facility] 7t [place] [address] Care Team Providers Care Vocational Director Name Role Phone Umm Coley MD Primary Care Provider + Reason for Visit * Reason Onset Date Comments Appointment Request 12/26/2024 Encounter Details Date Type Department Care Team ([facility] st Contact Info) Description 12/26/2024 Telephone [facility] MEDICINE [address] [place], [place] [phone] Umm Coley MD 230 [place], [place] [phone] Appointment Request Social History Tobacco Use Types [...] fracture. RN inquired if patient can have REEL STRIPPER assist her in dressing in order for patient to be able to come to [facility] to be evaluated. Patient verbalized understanding and reports she will havePCA assist her. Patient reminded of appointment time. Patient to f/u PRN. * Telephone Encounter - Gisela Reynoso RN - 12/26/2024 10:30 AM EST TC placed to [phone] in regards to below message. Patient did [...] at that time tomorrow. Contact pt at [phone] documented in this encounter Plan of Treatment Upcoming Encounters Date Type Department Care Team (Late st Contact Info) Description 03/08/2025 10:00 AM EDT Office Visit [facility] ADULT DENTAL [address] [place] [address] Elzbieta Mariangel [address] [place] [address] documented as of this encounter Visit Diagnoses Not on filedocumented in this encounter Additional Health Concerns Assessment Noted Time PHQ-9 Depression Total Score: 10 024 9:17 AM EDT documented as of this encounter Care Teams Vocational Director Relationship Specialty Start Date End Date Umm Coley MD 230 [place] [address] PCP - General Family Medicine 10/31/16 [facility] 11/14/24 documented as of this encounter
--- OUTSIDE RECORDS SUMMARY | 2024-12-28 11:14 | XMS_ITS | Encounter Summary ---
Author Organization [employer] [facility] Address [address] [place] [address] 7t [place] [address] Care Team Providers Care Gardening Supervisor Name Role Phone Umm Coley MD Primary Care Provider + Encounter Details Date Type Department Care Team (Latest Contact Info) Description 11/23/2020 Abstract [facility] CONVERSIONS Dental, Provider, DDS Social [...] Description 03/08/2025 10:00 AM EDT Office Visit [facility] ADULT DENTAL [address] [place] [address] Elzbieta, Mariangel [address] [place] [address] documented as of this encounter Visit Diagnoses Not on filedocumented in this encounter Care Teams Gardening Supervisor Relationship Specialty Start Date End Date Umm Coley MD 230 [place] [address] PCP - General Family Medicine 10/31/16 Eva Nunez Patrol Sergeant 04/05/24 07/06/24 [facility] 05/11/24 11/17/24 [facility] 11/14/24 documented as of this encounter
--- OUTSIDE RECORDS SUMMARY | 2024-12-28 11:14 | XMS_ITS | Encounter Summary ---
Author Organization [employer] [facility] Address [address] [place] [address] 7t [place] [address] Care Team Providers Care Starch Crab Name Role Phone Umm Coley MD Primary Care Provider + Encounter Details Date Type Department Care Team (Latest Contact Info) Description 09/16/2022 Abstract [facility] CONVERSIONS Dental, Provider, DDS [...] Office Visit [facility] ADULT DENTAL [address] [place] [address] Elzbieta, Mariangel [address] [place] [address] documented as of this encounter Visit Diagnoses Not on filedocumented in this encounter Care Teams Starch Crab Relationship Specialty Start Date End Date Umm Coley MD 230 [place] [address] PCP - General Family Medicine 10/31/16 Eva Nunez Roving Carrier 04/05/24 07/06/24 [facility] 05/11/24 11/17/24 [facility] 11/14/24 documented as of this encounter
--- OUTSIDE RECORDS SUMMARY | 2024-12-28 11:14 | XMS_ITS | Encounter Summary ---
Author Organization [facility] Address [address] [place] [address] 7t [place] [address] Care Team Providers Care Bootmaker Name Role Phone Shalonda Coley MD Primary Care Provider + Reason for Referral * Consultation (Routine) - Closed Specialty Diagnoses / Procedures Referred By Contkassie t Referred To Contact Case Management Diagnoses Encounter for monitoring of patient compliance in drug treatment program Shalonda Coley MD [address] [place] [address] Phone: tel: fax: Referral ID Status Reason Start Date Expiration Date V isits Requested Visits Authorized [id number] Closed Specialty Services Required 12/27/2024 12/27/2025 1 1 Reason for Visit * Reason Comments Weakness, Gen Encounter Details Date Type Department Care Team (Late st Contact Info) Description 12/27/2024 1:00 PM EST Office Visit [facility] 230 [place], [place] [phone] Shalonda Coley MD [address] [place], [place] [phone] Encounter for monitoring of patient compliance in [...] not addressed this issue to anyone at [facility]. Acute Concerns: She complains of pleuritic [...] regarding medication management by current [facility]NA services ([facility]). I asked her if she wants me to cancel the services and try to find a new one, but she declined. I suggested her to reach out to [facility] supervisors and verify credential information and address issues that she has with current medication management. I will ask our care managers to reach out to her to assist her with this issue and try to stabilizeher on a VNA service. Will ask [facility] service to send a list of [...] VIA [facility]AL [facility] [facility] SEA NECESARIO FOR ALLERGIES 90 tablet [...] regarding medication management by current [facility] services ([facility]). I asked her if she wants me [...] Upcoming Encounters Date Type Department Care Team ([facility] st Contact Info) Description 03/08/2025 10:00 AM EDT Office Visit [facility] ADULT DENTAL [address] [place] [address] Elzbieta, Mariangel [address] [place] [address] Scheduled Referrals Name Type Priority Associated Diagnoses [...] PM EST Narrative 12/27/2024 2:35 PM EST ?[facility] ?[address] ?[place] [address] ?XRay Report ? Signed ? Patient: Myles,Diana L ?MR#: [id number] ?? 8 ? : 1965 ?Acct:[id number] ? Age/Sex: 59 / F ?ADM Date: 02/25/25 ? Loc: HO.HHCX ? Attending Dr: Shalonda Coley MD ? Ordering Physician: Shalonda Coley MD ?? Date of Service: 12/27/24 ?? Procedure(s): XR ribs RT 2V ?? Accession Number(s): [id number] ? cc: Shalonda Coley MD ? EXAMINATION: [...] DD/ 1356 ? TD/TT: 12/27/24 1424 ? Box Person: ? Procedure Note Donkatelynjadenclaudiater, Image - 12/27/2024 [place] [address] XRay Report Signed Patient: Diana Myles LMR#: [id number] 8 : 1965Acct:[id number] Age/Sex: 59 / FADM Date: 12/27/24 Loc: HO.HHCX Attending Dr: Shalonda Coley MD Ordering Physician: Shalonda Coley MD Date of Service: 12/27/24 Procedure(s): XR ribs RT 2V Accession Number(s): [id number] cc: Shalonda Coley MD EXAMINATION: XR CHEST [...] 12/27/24 1433 DD/ 1356 TD/TT: 12/27/24 1424 Box Person: us Shalonda Coley MD IMG XR PROCEDURES Final Result * XR Chest 2 Views (12/27/2024 1:56 PM EST) Anatomical Region Laterality Modality Chest Radiographic Kyleigh ging 12/27/2024 1:56 PM EST Narrative 12/27/2024 2:36 PM EST ?[facility] ?[address] ?[place] [address] ?XRay Report ? Signed ? Patient: Diana Myles ?MR#: [id number] ?? 8 ? : 1965 ?Acct:[id number] ? Age/Sex: 59 / F ?ADM Date: 12/27/24 ? Loc: HO.HHCX ? Attending Dr: Shalonda Coley MD ? Ordering Physician: Shalonda Coley MD ?? Date of Service: 12/27/24 ?? Procedure(s): XR chest 2V ?? Accession Number(s): [id number] ? cc: Shalonda Coley MD ? EXAMINATION: [...] DD/ 1356 ? TD/TT: 12/27/24 1424 ? Box Person: ? Procedure Note Donotjadenclaudiater, Image - 12/27/2024 [place] [address] XRay Report Signed Patient: Diana Myles LMR#: [id number] 8 : 1965Acct:[id number] Age/Sex: 59 / FADM Date: 12/27/24 Loc: HO.HHCX Attending Dr: Shalonda Coley MD Ordering Physician: Shalonda Coley MD Date of Service: 12/27/24 Procedure(s): XR chest 2V Accession Number(s): [id number] cc: Shalonda Coley MD EXAMINATION: XR CHEST [...] 12/27/24 1433 DD/ 1356 TD/TT: 12/27/24 1424 Box Person: us Shalonda Coley MD IMG XR PROCEDURES Final Result documented in this encounter Visit Diagnoses Diagnosis Encounter for monitoring of patient compliance in drug treatment program- Primary Intercostal pain documented in this encounter Additional Health Concerns Assessment Noted Time PHQ-9 Depression Total Score: 10 024 9:17 AM EDT documented as of this encounter Care Teams Bootmaker Relationship Specialty Start Date End Date Shalonda Coley MD [address] [place] [address] PCP - General Family Medicine 10/31/16 [facility] 11/14/24 documented as of this encounter
--- OUTSIDE RECORDS SUMMARY | 2024-12-28 11:14 | XMS_ITS | Encounter Summary ---
Author Organization [facility] Address [address] [place] [address] 7t [place] [address] Care Team Providers Care Law Tutor Name Role Phone Umm Coley MD Primary Care Provider + Encounter Details Date Type Department Care Team (Latest Contact Info) Description 03/13/2022 Abstract [facility] CONVERSIONS Dental, Provider, DDS Social History [...] Description 03/08/2025 10:00 AM EDT Office Visit [facility] ADULT DENTAL [address] [place] [address] Elzbieta, Mariangel [address] [place] [address] documented as of this encounter Visit Diagnoses Not on filedocumented in this encounter Care Teams Law Tutor Relationship Specialty Start Date End Date Umm Coley MD [address] [place] [address] PCP - General Family Medicine 10/31/16 Eva Nunez Registered Veterinary Technician 04/05/24 07/06/24 [facility] 05/11/24 11/17/24 [facility] 11/14/24 documented as of this encounter
--- OUTSIDE RECORDS SUMMARY | 2024-12-28 11:14 | XMS_ITS | Encounter Summary ---
Author Organization [employer] [facility] Address [address] [place] [address] 7t [place] [address] Care Team Providers Care Learning And Development Assistant Name Role Phone Umm Coley MD Primary Care Provider + Encounter Details Date Type Department Care Team (Latest Contact Info) Description 11/14/2019 Abstract [facility] CONVERSIONS Dental, Provider, DDS [...] [facility] ADULT DENTAL [address] [place] [address] Elzbieta, Mariangel [address] [place] [address] documented as of this encounter Visit Diagnoses Not on filedocumented in this encounter Care Teams Learning And Development Assistant Relationship Specialty Start Date End Date Umm Coley MD [address] [place] [address] PCP - General Family Medicine 10/31/16 Eva Nunez Hospital Medical Assistant 04/05/24 07/06/24 [facility] 05/11/24 11/17/24 [facility] 11/14/24 documented as of this encounter
--- OUTSIDE RECORDS SUMMARY | 2024-12-28 11:14 | XMS_ITS | Clinical Summary ---
Author Organization [employer] Address [address] [place] [address] 7[address] [place] [address] Care Team Providers Care Manager Travel Name Role Phone Shalonda Coley MD Primary [...] regarding medication management by current VNA services ([facility]). I asked her if she wants me [...] continue f/u with [facility] health provider [facility]. Dry eye 05/16/2024 Assessment & Plan (05/16/2024 [...] was referred to vestibular therapy at [facility], information given to pt to schedule appointment [...] write a complaint to the landlord, building junior database administrator, and housing department. I gave them information about intellectual property paralegal in the [place] Will refer to health care facility administrator to assist with housing due to poor conditions of current apartment Pt already has a letter from counselor, will FU at next appointment Household circumstance affecting care 02/03/2023 Assessment & Plan (12/11/2023 9:49 AM EST): Pt has depression and difficulty with memory. She has a INTERNATIONAL ACCOUNTING MANAGER and a VNA to manage med, pharma education. VNA can go a few times per week once a POC has been discussed and taught to pt's caregivers Assessment & Plan (04/02/2023 2:38 PM EDT): Pt continues to live in the same apartment with anxiety from recent of her neighbor. Already in contact with [facility] and team is helping her with letters for housing Assessment & Plan (02/26/2023 1:12 PM EDT): Pt lives alone, I will advise to move out to a different apartment due to increased anxiety with household circumstance Refer to [facility] Assessment & Plan (02/03/2023 2:23 PM [...] EST): Pt seen psychotherapist and psychiatry at [facility], needs medication management due to Hx of SA and non-compliance. No change in medications, needs to continue medication administration by VNA and keep in a lock box, pharmical education, and prevention of hospital admissions. I will call [facility] gabriela at pt's request to transfer VNA services. Assessment & Plan (02/02/2024 3:44 PM EDT): - Medication list reconciled and discussed with patient, meds are to be administered by VNA due to memory issues, risk of poor compliance. - She will continue close follow up with [facility] Psych. I explained to patient that [...] Plan (02/26/2023 1:11 PM EDT): Pt seeing [facility] MH team every week. I counseled her [...] we can organize the medications. Pt and INTERNATIONAL ACCOUNTING MANAGER agreed with the plan of care. POC discussed with team nurse and rubber compounder supervisor. Assessment & Plan (04/28/2024 3:33 PM [...] (04/28/2024 5:25 PM EDT): Pt seen by [facility] clinician, continue psychotherapy every week. She [...] she needs pharmaco education. She's followed by [facility] psych. I told her and INTERNATIONAL ACCOUNTING MANAGER she needs to bring all her med bottles so we can go over her meds until the new VNA service is restarted. Her INTERNATIONAL ACCOUNTING MANAGER is helping her as well as her daughter With meds for now. Pt feels safe. Will send new Rx if needed with prescription in malawian so VNA can read it (one of the issues being that med rx were written in Greek and the VNA that took over didn't understand the directions). Will check with VNA service to see what current situation is, pt wants to start using a new VNA service (the one her neighbor uses, [facility], [place] based) . Contusion of knee 02/16/2018 Motor [...] (05/02/2024 5:56 PM EDT): -Followed by [facility] - last available consult note March [...] has to reschedule pharmacological stress test in [facility] dc amlodipine and flexeril and take [...] Encounters Date Type Department Care Team Description 12/28/2024 Telephone [facility] [address] [place] [address] Shalonda Coley MD Care Management (V1GJ-kajcy review) 12/27/2024 1:00 PM EST Office Visit [facility] [place] [address] Shalonda Coley MD Encounter for monitoring of patient compliance in drug treatment program (Primary Dx); Intercostal pain 12/27/2024 Travel 12/26/2024 Telephone [facility] [address] [place], [place] [address] [facility] [place] [address] Shalonda Coley MD ED f/u call 12/26/[address] [address] Shalonda Coley MD Appointment Request 12/23/[address] [address] Shalonda Coley MD Chart prep 12/22/[address] [address] Shalonda Coley MD Appointment Request 12/20/[address] [place] [address] Shalonda Coley MD Call Back Request 12/13/[address] [address] Shalonda Coley MD PCP Contact (Medbox set up.) 12/09/2024 Travel 12/08/2024 12:15 PM EST Office Visit [facility] [place] [address] Shalonda Coley MD Recurrent falls (Primary Dx); Neuropathy of both feet; Generalized anxiety disorder 12/08/2024 Telephone [facility] [address] [place] [address] Gisela Reynoso, RN VNA services 12/08/2024 Travel 12/08/[address] [address] Shalonda Coley MD FYI. 12/07/[address] [address] Juana Connor MA Chart prep 12/05/[address] [address] Shalonda Coley MD Appointment Request 11/29/2024 Orders Only [address] [address] Shalonda Coley MD 11/10/2024 12:15 PM EST Office Visit [address] [address] Shalonda Coley MD Generalized anxiety disorder (Primary Dx); Mild persistent asthmatic bronchitis without complication; Encounter for immunization 11/10/[address] [address] Gisela Reynoso, BEBA VNA agency switch 11/10/2024 Travel 11/09/[address] [address] Shalonda Coley MD Chart prep 10/24/[address] [address] Shalonda Coley MD Request For Order(s) 10/24/[address] [address] Shalonda Coley MD VNA Switch 10/14/2024 2:30 PM EST Office Visit [facility] [address] [place] [address] Johnny Gonzalez, WILIAN Defective dental amish (Primary Dx); Dental caries; History of root canal procedure 10/13/[address] [address] Shalonda Coley MD FYI 10/10/[address] [address] Shalonda Coley MD Stable Imaging Letter 09/27/[address] [address] Shalonda Coley MD Med Refill from Last [...] 03/08/2025 10:00 AM EDT Office Visit [facility] [address] [place] [address] Trino Ruffaris [address] [place] [address] Health Maintenance Due Date Last Done Comments [...] Routine 10/14/2024 2:30 PM EST Defective dental amish Dental caries History of root canal procedure 12 DO RESIN-BASED COMPOSITE - 2 SURF, POSTERIOR Routine 10/14/2024 2:30 PM EST Dental caries 10 MIFL RESIN-BASED COMPOSITE - 4 OR MORE SURFACES (ANTERIOR) Routine 10/14/2024 2:30 PM EST Defective dental amish 13 CORE BUILDUP, INCL ANY PINS WHEN [...] PM EST Narrative 12/27/2024 2:35 PM EST ?[place] [facility] ?[address] ?[place] [address] ?XRay Report ? Signed ? Patient: Myles,Diana L ?MR#: [id number] ?? 8 ? : 1965 ?Acct:[id number] ? Age/Sex: 59 / F ?ADM Date: 12/27/24 ? Loc: HO.HHCX ? Attending Dr: Shalonda Coley MD ? Ordering Physician: Shalonda Coley MD ?? Date of Service: 12/27/24 ?? Procedure(s): XR ribs RT 2V ?? Accession Number(s): [id number] ? cc: Shalonda Coley MD ? EXAMINATION: [...] MD in OV> ?12/27/24 1433 ? DD/ 4406 ? TD/TT: 12/27/24 1424 ? Hand Launderer: ? Procedure Note Chin Diana - 12/27/[address] [address] XRay Report Signed Patient: Diana Myles LMR#: [id number] 8 : 1965Acct:[id number] Age/Sex: 59 / FADM Date: 12/27/24 Loc: HO.HHCX Attending Dr: Shalonda Coley MD Ordering Physician: Shalonda Coley MD Date of Service: 12/27/24 Procedure(s): XR ribs RT 2V Accession Number(s): [id number] cc: Shalonda Coley MD EXAMINATION: XR CHEST [...] 12/27/24 1433 DD/ 1356 TD/TT: 12/27/24 1424 Hand Launderer: Shalonda Coley MD IMG XR PROCEDURES Final Result * XR Chest 2 Views (12/27/2024 1:56 PM EST) Only the most recent of2 resultswithin the time period is included. Anatomical Region Laterality Modality Chest Radiographic Kyleigh ging 12/27/2024 1:56 PM EST Narrative 12/27/2024 2:36 PM EST ?[facility] ?[address] ?[place] [address] ?XRay Report ? Signed ? Patient: Myles,Diana L ?MR#: [id number] ?? 8 ? : 1965 ?Acct:[id number] ? Age/Sex: 59 / F ?ADM Date: 02/25/25 ? Loc: HO.HHCX ? Attending Dr: Shalonda Coley MD ? Ordering Physician: Shalonda Coley MD ?? Date of Service: 12/27/24 ?? Procedure(s): XR chest 2V ?? Accession Number(s): [id number] ? cc: Shalonda Coley MD ? EXAMINATION: [...] DD/ 1356 ? TD/TT: 12/27/24 1424 ? Hand Launderer: ? Procedure Note Adalgisa, Image - 12/27/[address] [address] XRay Report Signed Patient: Diana Myles LMR#: [id number] 8 : 1965Acct:[id number] Age/Sex: 59 / FADM Date: 12/27/24 Loc: HO.HHCX Attending Dr: Shalonda Coley MD Ordering Physician: Shalonda Coley MD Date of Service: 12/27/24 Procedure(s): XR chest 2V Accession Number(s): [id number] cc: Shalonda Coley MD EXAMINATION: XR CHEST [...] 12/27/24 1433 DD/ 1356 TD/TT: 12/27/24 1424 Hand Launderer: us Shalonda Coley MD IMG XR PROCEDURES Final Result * XR HAND WRIST RT (12/23/2024 6:57 PM EST) Only the most recent of2 resultswithin the time period is included. Anatomical Region Laterality Modality Abdomen Radiographic Kyleigh ging 12/23/2024 6:57 PM EST Narrative 12/23/2024 6:59 PM EST ? [facility] ?[address] ?[place] [address] ?XRay Report ? Signed ? Patient: Myles,Diana L ?MR#: [id number] ?? 8 ? : 1965 ?Acct:[id number] ? Age/Sex: 59 / F ?ADM Date: 12/23/24 ? Loc: HO.ED ? Attending Dr: ? Ordering Physician: Diomedes Shultz ?? Date of Service: 12/23/24 ?? Procedure(s): XR hand wrist RT ?? Accession Number(s): [id number] ? cc: Diomedes Shultz; Shalonda Coley MD [...] ? DD/ 56 ? TD/TT: 12/23/241856 ? Hand Launderer: ? Procedure Note Donlinda, Image - 12/23/2024 [place] [address] XRay Report Signed Patient: Diana Myles LMR#: [id number] 8 : 1965Acct:[id number] Age/Sex: 59 / FADM Date: 12/23/24 Loc: HO.ED Attending Dr: Ordering Physician: Diomedes Shultz Date of Service: 12/23/24 Procedure(s): XR hand wrist RT Accession Number(s): [id number] cc: Diomedes Shultz; Shalonda Coley MD CLINICAL [...] in OV> 12/23/241857 DD/ 56 TD/TT: 12/23/241856 Hand Launderer: [facility] External Provider IMG XR PROCEDURES Final Result * CT Head w/o Contrast (12/23/2024 4:42 PM EST) Anatomical Region Laterality Modality Head, Neck Computed Tomogra phy 12/23/2024 4:42 PM EST Narrative 12/23/2024 4:54 PM EST ? [facility] ?[address] ?[place], [place] [address] ? CT Scan Report ? Signed ? Patient: Myles,Diana L ?MR#: [id number] ?? 8 ? : 1965 ?Acct:[id number] ? Age/Sex: 59 / F ?ADM Date: 12/23/24 ? Loc: HO.ED ? Attending Dr: ? Ordering Physician: Diomedes Shultz ?? Date of Service: 12/23/24 ?? Procedure(s): CT head/brain wo IV con ?? Accession Number(s): [id number] ? cc: Diomedes Shultz; Shalonda Coley MD ? Report Number: ?? [id number]: Total DLP = ??821.00 mGy-cm ?? EXAMINATION: [...] DD/ 1642 ? TD/TT: 12/23/24 1642 ? Hand Launderer: ? Procedure Note Donjonathanclaudiater, Image - 12/23/[address] [place] [address] [address] Scan Report Signed Patient: Diana Myles LMR#: [id number] 8 : 1965Acct:[id number] Age/Sex: 59 / FADM Date: 12/23/24 Loc: HO.ED Attending Dr: Ordering Physician: Diomedes Shultz Date of Service: 12/23/24 Procedure(s): CT head/brain wo IV con Accession Number(s): [id number] cc: Diomedes Shultz; Shalonda Coley MD Report Number: [id number]: Total DLP = 821.00 mGy-cm EXAMINATION: CT [...] 12/23/24 1651 DD/ 1642 TD/TT: 12/23/24 1642 Hand Launderer: [facility] External Provider IMG CT PROCEDURES Final Result * CT Cervical Spine w/o Contrast (12/23/2024 3:29 PM EST) Anatomical Region Laterality Modality Spine, C-spine Computed Tomogra phy 12/23/2024 3:29 PM EST Narrative 12/23/2024 4:57 PM EST ? [facility] ?[address] ?[place] [address] ? CT Scan Report ? Signed ? Patient: Myles,Diana L ?MR#: [id number] ?? 8 ? : 1965 ?Acct:[id number] ? Age/Sex: 59 / F ?ADM Date: 02/21/25 ? Loc: HO.ED ? Attending Dr: ? Ordering Physician: Diomedes Shultz ?? Date of Service: 12/23/24 ?? Procedure(s): CT cervical spine wo IV con ?? Accession Number(s): [id number] ? cc: Diomedes Shultz; Shalonda Coley MD ? Report Number: ?? [id number]: Total DLP = ??821.00 mGy-cm ?? EXAMINATION: [...] DD/ 1529 ? TD/TT: 12/23/24 1642 ? Hand Launderer: ? Procedure Note Donotuseinterpreter, Image - 12/23/[address] [address] [address] Scan Report Signed Patient: Diana Myles LMR#: [id number] 8 : 1965Acct:[id number] Age/Sex: 59 / FADM Date: 12/23/24 Loc: HO.ED Attending Dr: Ordering Physician: Diomedes Shultz Date of Service: 12/23/24 Procedure(s): CT cervical spine wo IV con Accession Number(s): [id number] cc: Diomedes Shultz; Shalonda Coley MD Report Number: [id number]: Total DLP = 821.00 mGy-cm EXAMINATION: CT [...] Mathieu Lepe MD 12/23/2024 04:54 PM EST RP Dictated By: Mathieu Lepe MD Signed By: <Electronically signed by Mathieu Lepe MD in OV> 12/23/24 1654 DD/ 1529 TD/TT: 12/23/24 1642 Hand Launderer: [facility] External Provider IMG CT PROCEDURES Final Result * XR Shoulder 2+ Views Right (12/23/2024 3:09 PM EST) Anatomical Region Laterality Modality Upper Extremities, Shoulder Right Radi ographic Imaging 12/23/2024 3:09 PM EST Narrative 12/23/2024 3:43 PM EST ? [facility] ?[address] ?[place] [address] ?XRay Report ? Signed ? Patient: Myles,Diana L ?MR#: [id number] ?? 8 ? : 1965 ?Acct:[id number] ? Age/Sex: 59 / F ?ADM Date: 12/23/24 ? Loc: HO.ED ? Attending Dr: ? Ordering Physician: Diomedes Shultz ?? Date of Service: 12/23/24 ?? Procedure(s): XR shoulder RT min 2V ?? Accession Number(s): [id number] ? cc: Diomedes Shultz; Shalonda Coley MD [...] DD/ 1509 ? TD/TT: 12/23/24 1533 ? Hand Launderer: ? Procedure Note Donjonathanjose antonio, Image - 12/23/[address] [address] XRay Report Signed Patient: Diana Myles LMR#: [id number] 8 : 1965Acct:[id number] Age/Sex: 59 / FADM Date: 12/23/24 Loc: HO.ED Attending Dr: Ordering Physician: Diomedes Shultz Date of Service: 12/23/24 Procedure(s): XR shoulder RT min 2V Accession Number(s): [id number] cc: Diomedes Shultz; Shalonda Coley MD EXAMINATION: [...] Steven Coreas MD 12/23/2024 03:40 PM EST Dictated By: Steven Gan MD Signed By: <Electronically signed by Steven Gary MDin OV> 12/23/24 1540 DD/ 1509 TD/TT: 12/23/24 1533 Hand Launderer: us [facility] External Provider IMG XR PROCEDURES Final Result * XR Hips Bilateral with Pelvis 1 view (12/23/2024 2:57 PM EST) Anatomical Region Laterality Modality Lower Extremities, Hip Bilateral Radiograp hic Imaging 12/23/2024 2:57 PM EST Narrative 12/23/2024 3:45 PM EST ? [facility] [facility] ?[address] ?[place] [address] ?XRay Report ? Signed ? Patient: Myles,Diana L ?MR#: [id number] ?? 8 ? : 1965 ?Acct:[id number] ? Age/Sex: 59 / F ?ADM Date: 12/23/24 ? Loc: HO.ED ? Attending Dr: ? Ordering Physician: Diomedes Shultz ?? Date of Service: 12/23/24 ?? Procedure(s): XR hip BI w PEL1V ?? Accession Number(s): [id number] ? cc: Diomedes Shultz; Shalonda Coley MD [...] DD/ 1457 ? TD/TT: 12/23/24 1533 ? Hand Launderer: ? Procedure Note Chin Diana - 12/23/[address] [address] XRay Report Signed Patient: Diana Myles LMR#: [id number] 8 : 1965Acct:[id number] Age/Sex: 59 / FADM Date: 12/23/24 Loc: HO.ED Attending Dr: Ordering Physician: Diomedes Shultz Date of Service: 12/23/24 Procedure(s): XR hip BI w PEL1V Accession Number(s): [id number] cc: Diomedes Shultz; Shalonda Coley MD EXAMINATION: [...] 12/23/24 1543 DD/ 1457 TD/TT: 12/23/24 1533 Hand Launderer: [facility] External Provider IMG XR PROCEDURES Final Result * XR Knee 4+ Views Right (12/23/2024 2:57 PM EST) Anatomical Region Laterality Modality Lower Extremities, Knee Right Radiogra phic Imaging 12/23/2024 2:57 PM EST Narrative 12/23/2024 3:44 PM EST ? [facility] ?[address] ?[place] [address] ?XRay Report ? Signed ? Patient: Myles,Diana L ?MR#: [id number] ?? 8 ? : 1965 ?Acct:[id number] ? Age/Sex: 59 / F ?ADM Date: 12/23/ ? Loc: HO.ED ? Attending Dr: ? Ordering Physician: Diomedes Shultz ?? Date of Service: 12/23/24 ?? Procedure(s): XR knee RT 4V ?? Accession Number(s): [id number] ? cc: Diomedes Shultz; Shalonda Coley MD [...] DD/ 1457 ? TD/TT: 12/23/24 1533 ? Hand Launderer: ? Procedure Note Howardkatelynjadenclaudiater, Image - 12/23/2024 [place] [address] XRay Report Signed Patient: Diana Myles LMR#: [id number] 8 : 1965Acct:[id number] Age/Sex: 59 / FADM Date: 12/23/24 Loc: HO.ED Attending Dr: Ordering Physician: Diomedes Shultz Date of Service: 12/23/24 Procedure(s): XR knee RT 4V Accession Number(s): [id number] cc: Diomedes Shultz; Shalonda Coley MD EXAMINATION: [...] Steven Gary MDin OV> 12/23/24 1541 DD/ 1457 TD/TT: 12/23/24 1533 Hand Launderer: us [facility] External Provider IMG XR PROCEDURES Final Result * MR Knee w/o Contrast Left (12/06/2024 6:06 PM EST) Anatomical Region Laterality Modality Magnetic Resonan ce 12/06/2024 6:06 PM EST Narrative 12/08/2024 8:31 AM EST ? [facility] ?[address] ?[place] [address] ? Magnetic Resonance Report ? Signed ? Patient: Myles,Diana L ?MR#: [id number] ?? 8 ? : 1965 ?Acct:[id number] ? Age/Sex: 59 / F ?ADM Date: 12/06/24 ? Loc: HO.MRI ? Attending Dr: Denilson Forman PA-C ? Ordering Physician: Denilson Forman PA-C ?? Date of Service: 12/06/24 ?? Procedure(s): MR knee LT wo con ?? Accession Number(s): [id number] ? cc: Shalonda Coley MD; Denilson Forman [...] ??12/08/2024 08:29 AM EST RP ?? [id number] ? Dictated By: ?Mathieu Lepe MD ? Signed By: ?<Electronically signed by Mathieu Lepe MD in OV> ?12/08/24 0829 ? DD/ 180 ? TD/TT: 12/06/24 181 ? Hand Launderer: ? Procedure Note Chin Diana - 12/08/[address] [address] Magnetic Resonance Report Signed Patient: Diana Myles LMR#: [id number] 8 : 1965Acct:[id number] Age/Sex: 59 / FADM Date: 12/06/24 Loc: HO.MRI Attending Dr: Denilson Forman PA-C Ordering Physician: Denilson Forman PA-C Date of Service: 12/06/24 Procedure(s): MR knee LT wo con Accession Number(s): [id number] cc: Shalonda Coley MD; Denilson Forman PA-C [...] 12/08/24 0829 DD/ 180 TD/TT: 12/06/24 181 Hand Launderer: [facility] External Provider IMG MRI PROCEDURES Final Result * BI Mammogram Screening Tomosynthesis Bilateral (11/29/2024 8:45 AM EST) Anatomical Region Laterality Modality Breast Bilateral Mammography 11/29/2024 8:45 AM EST Narrative 12/07/2024 3:35 PM EST ? [facility] ? [address] ?[place] [address] ? Mammography Report ? Signed ? Patient: Myles,Diana L ?MR#: [id number] ?? 8 ? : 1965 ?Acct:[id number] ? Age/Sex: 59 / F ?ADM Date: /28/25 ? Loc: HO.MAMMO ? Attending Dr: Shalonda Coley MD ? Ordering Physician: Shalonda Coley MD ?Results: 2Be ?? nign Findings ? Date of Service: 11/29/24 ?Follow Up: 1 Year From Orig ?? inal Mammogram ? Procedure(s): MM tomosynthesis screening BI ?? Accession Number(s): [id number] ? cc: Shalonda Coley MD ? EXAMINATION: [...] DD/ 0845 ? TD/TT: 11/29/24 0915 ? Hand Launderer: ? Procedure Note Donotuseinterpreter, Image - 12/07/2024 [place] [facility] [address] [place] [address] Mammography Report Signed Patient: Diana Myles LMR#: [id number] 8 : 1965Acct:[id number] Age/Sex: 59 / FADM Date: 11/29/24 Loc: HO.MAMMO Attending Dr: Shalonda Coley MD Ordering Physician: Shalonda Coley MDResults: 2Be nign Findings Date of Service: 11/29/24Follow Up: 1 Year From Orig inal Mammogram Procedure(s): MM tomosynthesis screening BI Accession Number(s): [id number] cc: Shalonda Coley MD EXAMINATION: MM SCREENING [...] by: Chaparrita Lyn DO 12/07/2024 03:32 PM [facility] Dictated By: Chaparrita Lyn DO Signed By: <Electronically signed by Chaparrita Lyn DO in OV> 12/07/24 1532 DD/ 0845 TD/TT: 11/29/24 0915 Hand Launderer: Shalonda Coley MD IMG BI PROCEDURES Edited Result - Final * POCT Rapid RSV ROJAS ID NOW (11/10/2024 2:01 PM EST) [facility] RSV Rapid Ag POC Negative Negative Swab 11/10/2024 2:01 PM EST Shalonda Coley MD POINT OF CARE TEST ENTER /EDIT ORDERABLES Final Result * POCT Rapid Influenza B ROJAS ID NOW (11/10/2024 2:01 PM EST) [facility] Influenza B Negative Negative, Indeterminate [facility] Swab 11/10/2024 2:01 PM EST Shalonda Coley MD POINT OF CARE TEST ENTER /EDIT ORDERABLES Final Result Performing Organization Address [facility] Co de Phone Number [facility] [address] [place] [phone] * POCT Rapid Influenza A ROJAS ID NOW (11/10/2024 2:01 PM EST) [facility] Influenza A Negative Negative, Indeterminate [facility] Swab 11/10/2024 2:01 PM EST Shalonda Coley MD POINT OF CARE TEST ENTER /EDIT ORDERABLES Final Result Performing Organization Address [facility] Co de Phone Number [facility] [address] [place] [phone] * POCT Rapid Covid-19 BinaxNOW (11/10/2024 2:01 PM EST) [facility] Rapid COVID Ag Negative Swab 11/10/2024 2:01 PM EST Shalonda Coley MD POINT OF CARE TEST ENTER /EDIT ORDERABLES Final Result * (ABNORMAL) Hm Colonoscopy (07/30/2023) Colonoscopy Abnormal( A) Normal [facility] Comment:SSL polyp Shalonda Coley MD HEALTH MAINTENANCE Final Result [facility] [address] [place] [address] [phone] * Thinprep PAP and HPV nRNA E6/E7 (10/08/2022 9:30 AM EST) Clinical Information: None given [facility] LMP: NONE GIVEN [facility] Prev. PAP: NONE GIVEN [facility] Prev. BX: NONE GIVEN [facility] SOURCE: None given [facility] Statement Of Adequacy: SATISFACTORY FOR EVALUATION Age and/or menstrual status not provided [facility] Interpretation/Re sult: [facility] Comment: Negative for intraepithelial lesion or malignancy. Atrophic pattern; predominantly parabasal cells Historical Records Administrator: Clozet Comment: DMM, CT(ASCP) CT screening location: [address] ??[phone] Review Historical Records Administrator: [facility] Comment: MAA, CT(ASCP) CT screening location: [address] ??[address] (Always Message) [facility] Comment: EXPLANATORY NOTE: The Pap is a [...] HPV nRNA E6/E7 Not Detected Not Detected [facility] Comment: Methodology: High [employer] Counselor-Mediated Amplification This assay detects E6/E7 viral messenger RNA (mRNA) from 14 high-risk HPV types (16,18,31,33,35,39,45,51,52,56,58,59,66,68). Cervical sources are required for HPV testing. If a vaginal source from a patient who has had a total hysterectomy with removal of cervix was submitted, please contact the testing laboratory for alternative testing options. For additional information, please refer to http://education.Decurate/faq/GVG137c8 (This link if provided for information/ educational purposes only.) 10/08/2022 9:30 AM EST 10/10/2022 1:07 AM EST Narrative [facility] - 10/14/2022 7:08 PM EST FASTING: UNKNOWN Shauna Matamoros [facility] PATHOLOGY ORDERABLES Final Result [facility] [address], [place] [address] [facility] [address], [facility] [[email or web address] [place] [address] * HIV AB/AG (04/30/2022 11:28 AM EDT) Pathologist [facility] HIV AB/AG Nonreactive Nonreactive [facility] Comment: HIV-1 p24 Ag and/or [...] detection of this assay. ?? The [employer] Form Setter Helper HIV Ag/Ab Combo assay result and supplemental [...] [facility] [address] from Last 3 Months or Most Recently Relevant to Health Maintenance Insurance [facility] MEDICAID STAND ADULT Care Teams Manager Travel Relationship Specialty Start Date End Date Shalonda Coley MD [address] [place] [address] PCP - General Family Medicine 10/31/16 [facility] 11/14/24
--- OUTSIDE RECORDS SUMMARY | 2024-12-28 11:15 | XMS_ITS | Encounter Summary ---
Author Organization [employer] Address [address] [facility] 7t [place] [address] Care Team Providers Care Station Inspector Name Role Phone Umm Coley MD Primary Care Provider + Reason for Visit * Reason Onset Date Comments Appointment 03/17/2023 Encounter Details Date Type Department Care Team ([facility] st Contact Info) Description 03/17/[address] [facility] ADULT D[facility]AL [address] [place] [address] Johnny Gonzalez, DMD [address] [place] [address] Appointment Social History Tobacco Use Types Packs/Day [...] 03/08/2025 10:00 AM EDT Office Visit [facility] [address] [place], [place] [phone] Mariangel Ruff [address] [place] [address] documented as of this encounter Visit Diagnoses Not on filedocumented in this encounter Care Teams Station Inspector Relationship Specialty Start Date End Date Umm Coley MD [address] [place] [address] PCP - General Family Medicine 10/31/16 Eva Nunez Outlet Manager 04/05/24 07/06/24 [facility] 05/11/24 11/17/24 [facility] 11/14/24 documented as of this encounter
--- OUTSIDE RECORDS SUMMARY | 2024-12-28 11:15 | XMS_ITS | Encounter Summary ---
Author Organization [employer] Address [address] [facility] 7t [place] [address] Care Team Providers Care Chip Tester Name Role Phone Umm Coley MD Primary Care Provider + Reason for Visit * Reason Comments Med Refill Encounter Details Date Type Department Care Team (Late Contact Info) Description 05/21/2023 Refill [facility] [address] [place], [place] [phone] Umm Coley MD [address] [place] [address] Arthritis of knee Social History Tobacco Use [...] [facility] [address] [place] [address] Mariangel Ruff [address] [place] [address] documented as of this encounter Visit Diagnoses Diagnosis Arthritis of knee Unspecified arthropathy, lower leg documented in this encounter Additional Health Concerns Assessment Noted Time PHQ-9 Depression Total Score: 12 023 1:58 PM EDT documented as of this encounter Care Teams Chip Tester Relationship Specialty Start Date End Date Umm Coley MD [address] [place] [address] PCP - General Family Medicine 10/31/16 Eva Nunez Graphics Editor 04/05/24 07/06/24 [facility] 05/11/24 11/17/24 [facility] 11/14/24 documented as of this encounter
--- OUTSIDE RECORDS SUMMARY | 2024-12-28 11:15 | XMS_ITS | Encounter Summary ---
Author Organization [employer] Address [address] [facility] 7t [place] [address] Care Team Providers Care Sandwich Maker Name Role Phone Umm Coley MD Primary Care Provider + Reason for Visit * Reason Onset Date Comments pre med prior to dental treatment 08/23/2024 Encounter Details Date Type Department Care Team ([facility] st Contact Info) Description 08/23/2024 Telephone [facility] ADULT DENTAL [address] [place], [place] [phone] Johnny Gonzalez, DMD [address] [place] [address] pre med prior to dental treatment Social [...] I also spoke with Nina in the java front end web developer with a run through of what was happening with the patient and she stated she would also send something to provider for clarificationDR documented in this encounter Plan of Treatment Upcoming Encounters Date Type Department Care Team (Late st Contact Info) Description 03/08/2025 10:00 AM EDT Office Visit [facility] ADULT DENTAL [address] [place] [address] Mariangel Ruff [address] [place] [address] documented as of this encounter Visit Diagnoses Not on filedocumented in this encounter Additional Health Concerns Assessment Noted Time PHQ-9 Depression Total Score: 10 024 9:17 AM EDT documented as of this encounter Care Teams Sandwich Maker Relationship Specialty Start Date End Date Umm Coley MD [address] [place] [address] [place] [address] PCP - General Family Medicine 10/31/16 [facility] 05/11/24 11/17/24 [facility] 11/14/24 documented as of this encounter
--- OUTSIDE RECORDS SUMMARY | 2024-12-28 11:15 | XMS_ITS | Encounter Summary ---
Author Organization [employer] Address 75 [facility] 7t [place] [address] Care Team Providers Care Furniture Finisher Helper Name Role Phone Umm Coley MD Primary Care Provider + Reason for Visit * Reason Onset Date Comments Appointment 02/24/2023 Encounter Details Date Type Department Care Team ([facility] st Contact Info) Description 02/24/2023 Telephone [facility] ADULT DENTAL [address] [place] [address] Johnny Gonzalez, DMD [address] [place] [address] Appointment Social History Tobacco Use Types Packs/Day [...] Description 03/08/2025 10:00 AM EDT Office Visit [facility] ADULT DENTAL [address] [place] [address] Trino Ruffaris [address] [place] [address] documented as of this encounter Visit Diagnoses Not on filedocumented in this encounter Care Teams Furniture Finisher Helper Relationship Specialty Start Date End Date Umm Coley MD [address] [place] [address] PCP - General Family Medicine 10/31/16 Eva Nunez Talent Coordinator 04/05/24 07/06/24 [facility] 05/11/24 11/17/24 [facility] 11/14/24 documented as of this encounter
--- OUTSIDE RECORDS SUMMARY | 2024-12-28 11:15 | XMS_ITS | Encounter Summary ---
Author Organization [employer] Address [address] [facility] 7t [place] [address] Care Team Providers Care Health Program Manager Name Role Phone Umm Coley MD Primary Care Provider + Reason for Visit * Reason Onset Date Comments Appointment Request 12/05/2024 Encounter Details Date Type Department Care Team ([facility] st Contact Info) Description 12/05/2024 Telephone [facility] [address] [place], [place] [phone] Umm Coley MD [address] [place], [place] [phone] Appointment Request Social History Tobacco Use Types [...] 11:01 AM EST TC placed to patient [phone] via [employer] ([employer] # [id number]). Patient reports she would like an appointment [...] give any more information. Contact pt at [phone] documented in this encounter Plan of Treatment Upcoming Encounters Date Type Department Care Team (Late st Contact Info) Description 03/08/2025 10:00 AM EDT Office Visit [facility] ADULT DENTAL [address] [place] [address] Mariangel Ruff [address] [place] [address] documented as of this encounter Visit Diagnoses Not on filedocumented in this encounter Additional Health Concerns Assessment Noted Time PHQ-9 Depression Total Score: 10 024 9:17 AM EDT documented as of this encounter Care Teams Health Program Manager Relationship Specialty Start Date End Date Umm Coley MD [address] [place] [address] PCP - General Family Medicine 10/31/16 [facility] 11/14/24 documented as of this encounter
--- OUTSIDE RECORDS SUMMARY | 2024-12-28 11:15 | XMS_ITS | Encounter Summary ---
Author Organization [email or web address] Address 75 [facility] 7t [place] [address] Care Team Providers Care Gourmet Coffee Attendant Name Role Phone Umm Coley MD Primary Care Provider + Reason for Visit * Reason Onset Date Comments Appointment 06/15/2023 Encounter Details Date Type Department Care Team ([facility] st Contact Info) Description 06/15/2023 Telephone [facility] ADULT DENTAL [address] [facility] [place] [address] Johnny Gonzalez, DMD [address] [place] [address] Appointment Social History Tobacco Use Types Packs/Day [...] [facility] ADULT DENTAL [address] [place], [place] [phone] Elzbieta, Mariangel [address] [place] [address] documented as of this encounter Visit Diagnoses Not on filedocumented in this encounter Additional Health Concerns Assessment Noted Time PHQ-9 Depression Total Score: 12 04/02/ 023 1:58 PM EDT documented as of this encounter Care Teams Gourmet Coffee Attendant Relationship Specialty Start Date End Date Umm Coley MD [address] [place] [address] PCP - General Family Medicine 10/31/16 Eva Nunez Batch Room Technician 04/05/24 07/06/24 [facility] 05/11/24 11/17/24 [facility] 11/14/24 documented as of this encounter
--- OUTSIDE RECORDS SUMMARY | 2024-12-28 11:15 | XMS_ITS | Encounter Summary ---
Author Organization [employer] Address [address] [facility] 7t [place] [address] Care Team Providers Care Government Employee Name Role Phone Umm Coley MD Primary Care Provider + Encounter Details Date Type Department Care Team (Late st Contact Info) Description 03/05/2023 Orders Only [facility] MEDICINE [address] [place], [place] [phone] Umm Coley MD [address] [place], [place] [phone] Social History Tobacco Use Types Packs/Day Years [...] [facility] ADULT DENTAL [address] [place], [place] [phone] Mariangel Ruff [address] [place] [address] documented as of this encounter Visit Diagnoses Not on filedocumented in this encounter Care Teams Government Employee Relationship Specialty Start Date End Date Umm Coley MD [address] [place] [address] PCP - General Family Medicine 10/31/16 Eva Nunez Rn Lpn Cna 04/05/24 07/06/24 [facility] 05/11/24 11/17/24 [facility] 11/14/24 documented as of this encounter
--- OUTSIDE RECORDS SUMMARY | 2024-12-28 11:15 | XMS_ITS | Encounter Summary ---
Author Organization [employer] Address 75 [facility] 7t [place] [address] Care Team Providers Care Vest Maker Name Role Phone Umm Coley MD Primary Care Provider + Encounter Details Date Type Department Care Team (Late st Contact Info) Description 11/29/2024 Orders Only [facility] MEDICINE [address] [place], [place] [address] Umm Coley MD [address] [place], [place] [phone] Social History Tobacco Use Types Packs/Day Years [...] [facility] ADULT DENTAL [address] [place] [address] Elzbieta, Mariangel [address] [place] [address] documented as of this encounter Procedures Procedure [...] EST Narrative 12/23/2024 6:59 PM EST ? [facility] ?[address] ?[place] [address] ?XRay Report ? Signed ? Patient: Myles,Diana L ?MR#: [id number] ?? 8 ? : 1965 ?Acct:[id number] ? Age/Sex: 59 / F ?ADM Date: 12/23/24 ? Loc: HO.ED ? Attending Dr: ? Ordering Physician: Diomedes Shultz ?? Date of Service: 12/23/24 ?? Procedure(s): XR hand wrist RT ?? Accession Number(s): [id number] ? cc: Diomedes Shultz; Umm Coley MD [...] DD/ 1857 ? TD/TT: 12/23/24 1857 ? Industrial Conveyor Belt Repairer: ? Procedure Note Adalgisa, Image - 12/23/[address] [address] XRay Report Signed Patient: Diana Myles LMR#: [id number] 8 : 1965Acct:[id number] Age/Sex: 59 / FADM Date: 12/23/24 Loc: HO.ED Attending Dr: Ordering Physician: Diomedes Shultz Date of Service: 12/23/24 Procedure(s): XR hand wrist RT Accession Number(s): [id number] cc: Diomedes Shultz; Umm Coley MD CLINICAL [...] in OV> 12/23/241857 DD/ 56 TD/TT: 12/23/241856 Industrial Conveyor Belt Repairer: [facility] External Provider IMG XR PROCEDURES Final Result * CT Head w/o Contrast (12/23/2024 4:42 PM EST) Anatomical Region Laterality Modality Head, Neck Computed Tomogra phy 12/23/2024 4:42 PM EST Narrative 12/23/2024 4:54 PM EST ? [facility] ?[address] ?[place] [address] ? CT Scan Report ? Signed ? Patient: Myles,Diana L ?MR#: [id number] ?? 8 ? : 1965 ?Acct:[id number] ? Age/Sex: 59 / F ?ADM Date: 02/21/25 ? Loc: HO.ED ? Attending Dr: ? Ordering Physician: Diomedes Shultz ?? Date of Service: 12/23/24 ?? Procedure(s): CT head/brain wo IV con ?? Accession Number(s): [id number] ? cc: Diomedes Shultz; Umm Coley MD ? Report Number: ?? [id number]: Total DLP = ??821.00 mGy-cm ?? EXAMINATION: [...] DD/ 1642 ? TD/TT: 12/23/24 1642 ? Industrial Conveyor Belt Repairer: ? Procedure Note Donotuseinterpreter, Image - 12/23/[address] [place] [address] [address] Scan Report Signed Patient: Diana Myles LMR#: [id number] 8 : 1965Acct:[id number] Age/Sex: 59 / FADM Date: 12/23/24 Loc: HO.ED Attending Dr: Ordering Physician: Diomedes Shultz Date of Service: 12/23/24 Procedure(s): CT head/brain wo IV con Accession Number(s): [id number] cc: Diomedes Shultz; Umm Coley MD Report Number: [id number]: Total DLP = 821.00 mGy-cm EXAMINATION: CT [...] 12/23/24 1651 DD/ 1642 TD/TT: 12/23/24 1642 Industrial Conveyor Belt Repairer: [facility] External Provider IMG CT PROCEDURES Final Result * CT Cervical Spine w/o Contrast (12/23/2024 3:29 PM EST) Anatomical Region Laterality Modality Spine, C-spine Computed Tomogra phy 12/23/2024 3:29 PM EST Narrative 12/23/2024 4:57 PM EST ? [facility] ?[address] ?[place] [address] ? CT Scan Report ? Signed ? Patient: Diana Myles L ?MR#: [id number] ?? 8 ? : 1965 ?Acct:[id number] ? Age/Sex: 59 / F ?ADM Date: 12/23/24 ? Loc: HO.ED ? Attending Dr: ? Ordering Physician: Diomedes Shultz ?? Date of Service: 12/23/24 ?? Procedure(s): CT cervical spine wo IV con ?? Accession Number(s): [id number] ? cc: Diomedes Shultz; Umm Coley MD ? Report Number: ?? [id number]: Total DLP = ??821.00 mGy-cm ?? EXAMINATION: [...] ??12/23/2024 04:54 PM EST RP ?? Work[id number] ? Dictated By: ?Mathieu Lepe MD ? Signed By: ?<Electronically signed by Mathieu Lepe MD in OV> ?12/23/24 1654 ? DD/ 1529 ? TD/TT: 12/23/24 1642 ? Industrial Conveyor Belt Repairer: ? Procedure Note Chin Diana - 12/23/[address] [place] [address] [address] Scan Report Signed Patient: Diana Myles LMR#: [id number] 8 : 1965Acct:[id number] Age/Sex: 59 / FADM Date: 12/23/24 Loc: HO.ED Attending Dr: Ordering Physician: Diomedes Shultz Date of Service: 12/23/24 Procedure(s): CT cervical spine wo IV con Accession Number(s): [id number] cc: Diomedes Shultz; Umm Coley MD Report Number: [id number]: Total DLP = 821.00 mGy-cm EXAMINATION: CT [...] 12/23/24 1654 DD/ 1529 TD/TT: 12/23/24 1642 Industrial Conveyor Belt Repairer: [facility] External Provider IMG CT PROCEDURES Final Result * XR Shoulder 2+ Views Right (12/23/2024 3:09 PM EST) Anatomical Region Laterality Modality Upper Extremities, Shoulder Right Radi ographic Imaging 12/23/2024 3:09 PM EST Narrative 12/23/2024 3:43 PM EST ? [facility] ?[address] ?[place] [address] ?XRay Report ? Signed ? Patient: Mylse,Diana L ?MR#: [id number] ?? 8 ? : 1965 ?Acct:[id number] ? Age/Sex: 59 / F ?ADM Date: 12/23/24 ? Loc: HO.ED ? Attending Dr: ? Ordering Physician: Diomedes Shultz ?? Date of Service: 12/23/24 ?? Procedure(s): XR shoulder RT min 2V ?? Accession Number(s): [id number] ? cc: Diomedes Shultz; Umm Coley MD [...] DD/ 1509 ? TD/TT: 12/23/24 1533 ? Industrial Conveyor Belt Repairer: ? Procedure Note Chin Diana - 12/23/[address] [address] XRay Report Signed Patient: Diana Myles LMR#: [id number] 8 : 1965Acct:[id number] Age/Sex: 59 / FADM Date: 12/23/24 Loc: HO.ED Attending Dr: Ordering Physician: Diomedes Shultz Date of Service: 12/23/24 Procedure(s): XR shoulder RT min 2V Accession Number(s): [id number] cc: Diomedes Shultz; Umm Coley MD EXAMINATION: [...] 12/23/24 1540 DD/ 1509 TD/TT: 12/23/24 1533 Industrial Conveyor Belt Repairer: [facility] External Provider IMG XR PROCEDURES Final Result * XR HAND WRIST RT (12/23/2024 2:57 PM EST) Anatomical Region Laterality Modality Abdomen Radiographic Kyleigh ging 12/23/2024 2:57 PM EST Narrative 12/23/2024 3:49 PM EST ? [facility] ?[address] ?[place] [address] ?XRay Report ? Signed ? Patient: Myles,Diana L ?MR#: [id number] ?? 8 ? : 1965 ?Acct:[id number] ? Age/Sex: 59 / F ?ADM Date: 12/23/24 ? Loc: HO.ED ? Attending Dr: ? Ordering Physician: Diomedes Shultz ?? Date of Service: 12/23/24 ?? Procedure(s): XR hand wrist RT ?? Accession Number(s): [id number] ? cc: Diomedes Shultz; Umm Coley MD [...] DD/ 1457 ? TD/TT: 12/23/24 1533 ? Industrial Conveyor Belt Repairer: ? Procedure Note Donmiguelter, Image - 12/23/2024 [place] [address] XRay Report Signed Patient: Diana Myles LMR#: [id number] 8 : 1965Acct:[id number] Age/Sex: 59 / FADM Date: 12/23/24 Loc: HO.ED Attending Dr: Ordering Physician: Diomedes Shultz Date of Service: 12/23/24 Procedure(s): XR hand wrist RT Accession Number(s): [id number] cc: Diomedes Shultz; Umm Coley MD EXAMINATION: [...] 12/23/24 1546 DD/ 1457 TD/TT: 12/23/24 1533 Industrial Conveyor Belt Repairer: [facility] External Provider IMG XR PROCEDURES Final Result * XR Hips Bilateral with Pelvis 1 view (12/23/2024 2:57 PM EST) Anatomical Region Laterality Modality Lower Extremities, Hip Bilateral Radiograp hic Imaging 12/23/2024 2:57 PM EST Narrative 12/23/2024 3:45 PM EST ? [facility] ?[address] ?[place] [address] ?XRay Report ? Signed ? Patient: Myles,Diana L ?MR#: [id number] ?? 8 ? : 1965 ?Acct:[id number] ? Age/Sex: 59 / F ?ADM Date: 12/23/24 ? Loc: HO.ED ? Attending Dr: ? Ordering Physician: Diomedes Shultz ?? Date of Service: 12/23/24 ?? Procedure(s): XR hip BI w PEL1V ?? Accession Number(s): [id number] ? cc: Diomedes Shultz; Umm Coley MD [...] or dislocation. Negative. ? Electronically signed by: ??tSeven Coreas MD ??12/23/2024 03:43 PM ?? EST RP ? Dictated By: ?Steven Gan MD ? Signed By: ?<Electronically signed by Steven Miles MD in OV> ? 12/23/24 1543 ? DD/ 1457 ? TD/TT: 12/23/24 1533 ? Industrial Conveyor Belt Repairer: ? Procedure Note Donotuseinterpreter, Image - 12/23/[address] [address] XRay Report Signed Patient: Diana Myles LMR#: [id number] 8 : 1965Acct:[id number] Age/Sex: 59 / FADM Date: 12/23/24 Loc: HO.ED Attending Dr: Ordering Physician: Diomedes Shultz Date of Service: 12/23/24 Procedure(s): XR hip BI w PEL1V Accession Number(s): [id number] cc: Diomedes Shultz; Umm Coley MD EXAMINATION: [...] 12/23/24 1543 DD/ 1457 TD/TT: 12/23/24 1533 Industrial Conveyor Belt Repairer: us [facility] External Provider IMG XR PROCEDURES Final Result * XR Knee 4+ Views Right (12/23/2024 2:57 PM EST) Anatomical Region Laterality Modality Lower Extremities, Knee Right Radiogra phic Imaging 12/23/2024 2:57 PM EST Narrative 12/23/2024 3:44 PM EST ? [place] [facility] ?[address] ?[place] [address] ?XRay Report ? Signed ? Patient: Myles,Diana L ?MR#: [id number] ?? 8 ? : 1965 ?Acct:[id number] ? Age/Sex: 59 / F ?ADM Date: 12/23/24 ? Loc: HO.ED ? Attending Dr: ? Ordering Physician: Diomedes Shultz ?? Date of Service: 12/23/24 ?? Procedure(s): XR knee RT 4V ?? Accession Number(s): [id number] ? cc: Diomedes Shultz; Umm Coley MD [...] DD/ 1457 ? TD/TT: 12/23/24 1533 ? Industrial Conveyor Belt Repairer: ? Procedure Note Chin Diana - 12/23/[address] [address] XRay Report Signed Patient: Diana Myles LMR#: [id number] 8 : 1965Acct:[id number] Age/Sex: 59 / FADM Date: 12/23/24 Loc: HO.ED Attending Dr: Ordering Physician: Diomedes Shultz Date of Service: 12/23/24 Procedure(s): XR knee RT 4V Accession Number(s): [id number] cc: Diomedes Shultz; Umm Coley MD EXAMINATION: [...] 12/23/24 1541 DD/ 1457 TD/TT: 12/23/24 1533 Industrial Conveyor Belt Repairer: [facility] External Provider IMG XR PROCEDURES Final Result * XR Chest 2 Views (12/13/2024 9:33 AM EST) Anatomical Region Laterality Modality Chest Radiographic Kyleigh ging 12/13/2024 9:33 AM EST Narrative 12/13/2024 10:06 AM EST ? [facility] ?[address] ?[place] [address] ?XRay Report ? Signed ? Patient: Diana Myles ?MR#: [id number] ?? 8 ? : 1965 ?Acct:[id number] ? Age/Sex: 59 / F ?ADM Date: 12/13/24 ? Loc: HO.XRAY ? Attending Dr: Anthony Curtis MD ? Ordering Physician: Anthony Curtis MD ?? Date of Service: 12/13/24 ?? Procedure(s): XR chest 2V ?? Accession Number(s): [id number] ? cc: Umm Coely MD; Anthony Curtis [...] ? DD/ ? TD/TT: 12/13/24 0948 ? Industrial Conveyor Belt Repairer: ? Procedure Note Donotjadeninterpreter, Image - 12/13/2024 [place] [address] XRay Report Signed Patient: Diana Myles LMR#: [id number] 8 : 1965Acct:[id number] Age/Sex: 59 / FADM Date: 12/13/24 Loc: HO.ALIYA Attending Dr: Anthony Curtis MD Ordering Physician: Anthony Curtis MD Date of Service: 12/13/24 Procedure(s): XR chest 2V Accession Number(s): [id number] cc: Umm Coley MD; Anthony Curtis MD [...] OV> 12/13/24 1004 DD/ 2 TD/TT: 12/13/2448 Industrial Conveyor Belt Repairer: us [facility] External Provider IMG XR PROCEDURES Final Result * MR Knee w/o Contrast Left (12/06/2024 6:06 PM EST) Anatomical Region Laterality Modality Magnetic Resonan ce 12/06/2024 6:06 PM EST Narrative 12/08/2024 8:31 AM EST ? [facility] ?[address] ?[place] [address] ? Magnetic Resonance Report ? Signed ? Patient: Myles,Diana L ?MR#: [id number] ?? 8 ? : 1965 ?Acct:[id number] ? Age/Sex: 59 / F ?ADM Date: 12/06/24 ? Loc: HO.MRI ? Attending Dr: Denilson Forman PA-C ? Ordering Physician: Denilson Forman PA-C ?? Date of Service: 12/06/24 ?? Procedure(s): MR knee LT wo con ?? Accession Number(s): [id number] ? cc: Umm Coley MD; Denilson Forman [...] ??12/08/2024 08:29 AM EST RP ?? Workstation: [id number] ? Dictated By: ?Mathieu Lepe MD ? Signed By: ?<Electronically signed by Mathieu Lepe MD in OV> ?12/08/248[address] ? DD/ 1806 ? TD/TT: 12/06/24 181 ? Industrial Conveyor Belt Repairer: ? Procedure Note Chin Diana - 12/08/[address] [address] Magnetic Resonance Report Signed Patient: Diana Myles LMR#: [id number] 8 : 1965Acct:[id number] Age/Sex: 59 / FADM Date: 12/06/24 Loc: HO.MRI Attending Dr: Denilson Forman PA-C Ordering Physician: Denilson Forman PA-C Date of Service: 12/06/24 Procedure(s): MR knee LT wo con Accession Number(s): [id number] cc: Umm Coley MD; Denilson Forman PA-C [...] 12/08/24 0829 DD/ 180 TD/TT: 12/06/24 181 Industrial Conveyor Belt Repairer: [facility] External Provider IMG MRI PROCEDURES Final Result * BI Mammogram Screening Tomosynthesis Bilateral (11/29/2024 8:45 AM EST) Anatomical Region Laterality Modality Breast Bilateral Mammography 11/29/2024 8:45 AM EST Narrative 12/07/2024 3:35 PM EST ? [facility] ? [address] ?[place] [address] ? Mammography Report ? Signed ? Patient: Myles,Diana L ?MR#: [id number] ?? 8 ? : 1965 ?Acct:[id number] ? Age/Sex: 59 / F ?ADM Date: 01/28/25 ? Loc: HO.MAMMO ? Attending Dr: Umm Coley MD ? Ordering Physician: Umm Coley MD ?Results: 2Be ?? nign Findings ? Date of Service: 11/29/24 ?Follow Up: 1 Year From Orig ?? inal Mammogram ? Procedure(s): MM tomosynthesis screening BI ?? Accession Number(s): [id number] ? cc: Umm Coley MD ? EXAMINATION: [...] DD/ 0845 ? TD/TT: 11/29/24 0915 ? Industrial Conveyor Belt Repairer: ? Procedure Note Donotuseinterpreter, Image - 12/07/2024 [facility] [address] [place], [place] [address] Mammography Report Signed Patient: Diana Myles LMR#: [id number] 8 : 1965Acct:[id number] Age/Sex: 59 / FADM Date: 11/29/24 Loc: HO.MAMMO Attending Dr: Umm Coley MD Ordering Physician: Umm Coley MDResults: 2Be nign Findings Date of Service: 11/29/24Follow Up: 1 Year From Orig ina Mammogram Procedure(s): MM tomosynthesis screening BI Accession Number(s): [id number] cc: Umm Coley MD EXAMINATION: MM SCREENING [...] 12/07/24 1532 DD/ 0845 TD/TT: 11/29/24 0915 Industrial Conveyor Belt Repairer: Umm Coley MD IMG BI PROCEDURES Edited Result - Final documented in this encounter Visit Diagnoses Not on filedocumented in this encounter Additional Health Concerns Assessment Noted Time PHQ-9 Depression Total Score: 10 024 9:17 AM EDT documented as of this encounter Care Teams Vest Maker Relationship Specialty Start Date End Date Umm Coley MD [address] [place] [address] PCP - General Family Medicine 10/31/16 [facility] 11/14/24 documented as of this encounter
--- OUTSIDE RECORDS SUMMARY | 2024-12-28 11:15 | XMS_ITS | Encounter Summary ---
Author Organization [employer] Address 75 [facility] 7t [place] [address] Care Team Providers Care Edi Programmer Name Role Phone Umm Coley MD Primary Care Provider + Reason for Visit * Reason Comments Med Change Request Encounter Details Date Type Department Care Team ([facility] Contact Info) Description 03/20/2023 Refill [facility] ADULT DENTAL [address] [place] [address] Johnny Gonzalez DMD [address] [place] [address] Social History Tobacco Use Types Packs/Day Years [...] Office Visit [facility]ULT [facility] [address] [place], [place] [phone] Mariangel Ruff [address] [place], [place] [phone] documented as of this encounter Visit Diagnoses Not on filedocumented in this encounter Care Teams Edi Programmer Relationship Specialty Start Date End Date Umm Coley MD [address] [place], [place] [phone] PCP - General Family Medicine 10/31/16 Eva Nunez Cardiovascular Tech 04/05/24 07/06/24 [facility] 05/11/24 11/17/24 [facility] 11/14/24 documented as of this encounter
--- OUTSIDE RECORDS SUMMARY | 2024-12-28 11:15 | XMS_ITS | Encounter Summary ---
Author Organization [employer] Address 75 [facility] 7t [place] [address] Care Team Providers Care Telecommunications Network Planner Name Role Phone Umm Coley MD Primary Care Provider + Reason for Visit * Reason Comments Med Refill Encounter Details Date Type Department Care Team (Late st Contact Info) Description 02/05/2023 Refill [facility] MEDICINE [address] [place] [address] Umm Coley MD [address] [place], [place] [phone] Arthritis of knee Social History Tobacco Use [...] Office Visit [facility] ADULT DENTAL [address] [place], [place] [phone] Mariangel Ruff [address] [place] [address] documented as of this encounter Visit Diagnoses Diagnosis Arthritis of knee Unspecified arthropathy, lower leg documented in this encounter Care Teams Telecommunications Network Planner Relationship Specialty Start Date End Date Umm Coley MD [address] [place] [address] PCP - General Family Medicine 10/31/16 Eva Nunez Foreign Clerk 04/05/24 07/06/24 [facility] 05/11/24 11/17/24 [facility] 11/14/24 documented as of this encounter
--- OUTSIDE RECORDS SUMMARY | 2024-12-28 11:15 | XMS_ITS | Encounter Summary ---
Author Organization [employer] Address [address] [facility] 7t [place] [address] Care Team Providers Care Label Stitcher Name Role Phone Umm Coley MD Primary Care Provider + Reason for Visit * Reason Onset Date Comments Care Management 12/28/2024 [id number] revie w Encounter Details Date Type Department Care Team ([facility] st Contact Info) Description 12/28/2024 Telephone [facility] MEDICINE [address] [place], [place] [phone] Umm Coley MD [address] [place], [place] [phone] Care Management ([id number] review) Social History Tobacco Use Types Packs/Day Years [...] encounter Miscellaneous Notes * Telephone Encounter - [place] RN - 12/28/2024 8:32 AM EST CM [place] Me[place] RN, performed chart review, in anticipation of initial assessment with patient, aspatient has stratified for Adult Complex Care through PCP referral. History significant for intercostal pain, asthmatic bronchitis without complication, dental cavity, actinic keratoses, localized osteoarthritis of left knee, anxiety about health, dry eye, benign paroxysmal vertigo, PTSD, headache, fibromyalgia, carpal tunnel syndrome, recurrent major depression in partial remission, osteopenia, neuropathy of both feet, migraine with aura, ductal carcinoma of right breast, low vision of [place], generalized anxiety disorder, chronic low back pain, arthritis of knee. Specialists include [facility] [facility], [facility] derm, [facility], [facility], [facility], [facility], [facility] pulmonology, [facility] pain management, [facility] GI, [facility] neurology. ED visits within the last 12 months include [facility] 12/23, [facility] 02/28-03/02/24. Last appointment in PCP office on 12/27/24. No future appointment scheduled. documented in this encounter Plan of Treatment Upcoming Encounters Date Type Department Care Team (Late st Contact Info) Description 03/08/2025 10:00 AM EDT Office Visit [facility] ADULT DENTAL [address] [place] [address] Mariangel Ruff [address] [place], [place] [phone] documented as of this encounter Visit Diagnoses Not on filedocumented in this encounter Additional Health Concerns Assessment Noted Time PHQ-9 Depression Total Score: 10 06/10/ 024 9:17 AM EDT documented as of this encounter Care Teams Label Stitcher Relationship Specialty Start Date End Date Umm Coley MD [address] [place] [address] PCP - General Family Medicine 10/31/16 [facility] 11/14/24 documented as of this encounter
--- OUTSIDE RECORDS SUMMARY | 2024-12-28 11:15 | XMS_ITS | Encounter Summary ---
Author Organization [employer] Address 75 [facility] 7t [place] [address] Care Team Providers Care Earrings Fabricator Name Role Phone Umm Coley MD Primary Care Provider + Reason for Visit * Reason Comments Med Change Request Encounter Details Date Type Department Care Team ([facility] Contact Info) Description 03/20/2023 Refill [facility] ADULT DENTAL [address] [place] [address] Johnny Gonzalez DMD [address] [place] [address] Social History Tobacco Use Types Packs/Day Years [...] Description 03/08/2025 10:00 AM EDT Office Visit [facility] ADULT DENTAL [address] [place], [place] [phone] Mariangel Ruff [address] [place], [place] [phone] documented as of this encounter Visit Diagnoses Not on filedocumented in this encounter Care Teams Earrings Fabricator Relationship Specialty Start Date End Date Umm Coley MD [address] [place], [place] [phone] PCP - General Family Medicine 10/31/16 Eva Nunez Civil Service Clerk 04/05/24 07/06/24 [facility] 05/11/24 11/17/24 [facility] 11/14/24 documented as of this encounter
--- OUTSIDE RECORDS SUMMARY | 2024-12-28 11:15 | XMS_ITS | Encounter Summary ---
Author Organization [facility] Address [address] [place] [address] 7t [place] [address] Care Team Providers Care Cost Accounting Manager Name Role Phone Umm Coley MD Primary Care Provider + Reason for Visit * Reason Comments Med Refill Encounter Details Date Type Department Care Team (Late st Contact Info) Description 06/10/2023 Refill [facility]INE [address] [place], [place] [phone] Yenny Morris MD [address] [place], [place] [phone] Rash Social History Tobacco Use Types Packs/Day [...] [facility] [address] [place], [place] [phone] Mariangel Ruff [address] [place] [address] documented as of this encounter Visit Diagnoses Diagnosis Rash Rash and other nonspecific skin eruption documented in this encounter Additional Health Concerns Assessment Noted Time PHQ-9 Depression Total Score: 12 023 1:58 PM EDT documented as of this encounter Care Teams Cost Accounting Manager Relationship Specialty Start Date End Date Umm Coley MD [address] [place] [address] PCP - General Family Medicine 10/31/16 Eva Nunez Picture Booker 04/05/24 07/06/24 [facility] 05/11/24 11/17/24 [facility] 11/14/24 documented as of this encounter
--- OUTSIDE RECORDS SUMMARY | 2024-12-28 11:15 | XMS_ITS | Encounter Summary ---
Author Organization [employer] Address 75 [facility] 7t [place] [address] Care Team Providers Care Sludge Control Attendant Name Role Phone Umm Coley MD Primary Care Provider + Encounter Details Date Type Department Care Team (Late st Contact Info) Description 08/23/2024 Orders Only [facility] ADULT D[facility]AL [address] [place], [place] [phone] Johnny Gonzalez, DMD [address] [place], [place] [phone] Social History Tobacco Use Types Packs/Day Years [...] Description 03/08/2025 10:00 AM EDT Office Visit [facility] ADULT DENTAL [address] [place] [address] ElzbietaMariangel [address] [place] [address] documented as of this encounter Visit Diagnoses Not on filedocumented in this encounter Additional Health Concerns Assessment Noted Time PHQ-9 Depression Total Score: 10 024 9:17 AM EDT documented as of this encounter Care Teams Sludge Control Attendant Relationship Specialty Start Date End Date Umm Coley MD [address] [place] [address] PCP - General Family Medicine 10/31/16 [facility] 05/11/24 11/17/24 [facility] 11/14/24 documented as of this encounter
--- OUTSIDE RECORDS SUMMARY | 2024-12-28 11:15 | XMS_ITS | Clinical Summary ---
Author Organization Unknown Care Team Providers Care Oceanography Teacher Name Role Phone DANIEL JACOBS, SHALONDA Unavailable Unavailable DUANE YODER, TEE Unavailable Unavailable Payers Payer Name Policy Type Policy Number Effective Date Expira tion Date MEDICAID [facility] [id number] Problems Condition Name Condition Details Condition Category [...] UNSPECIFIED SITE Active 5-12 00:00: 00 OTHER [facility] (CURRENT) DRUG THERAPY Active 1-15 00:00: 00 [facility] (CURRENT) USE OF NON-STEROIDA L NON-INFLAM (NSAID) [...] on aerosol inhaler 01-20 00:00: 00 Yes [id number] Per instruc tions DOS VECES AL D Per instructio ns DOS VECES AL D (route: inhalation ) Med Classific ation: Respirato ry Therapy Agents magnesium oxide 400 mg (241.3 mg magnesium) tablet 01-30 00:00: 00 11-14 00:00 :00 No [id number] Per instruc tions TOME NAIMA TABLETA TODOS LOS D Per instructio ns TOME NAIMA TABLETA TODOS LOS D (route: oral) Med Classific ation: Electroly te Balance-N utritiona l Products buspirone 15 mg tablet 01-16 00:00: 00 Yes [id number] Per instruc tions TOME NAIMA TABLETA CHEMA VECES AL D Per instructio ns TOME NAIMA TABLETA CHEMA VECES AL D (route: oral) Med Classific ation: Central Nervous System Agents melatonin 5 mg tablet 01-30 00:00: 00 Yes [id number] Per instruc tions EVERYDAY AT 5 PM FOR 2 WEEKS THEN MAY INCREASE TO 2 TABS E VERYDAY AT Per instructio ns EVERYDAY AT 5 PM FOR 2 WEEKS THEN MAY INCREASE TO 2 TABS E VERYDAY AT (route: oral) Med Classific ation: Central Nervous System Agents loratadine 10 mg tablet 01-04 00:00: 00 Yes [id number] Per instruc tions TOME NAIMA TABLETA TODOS LOS D Per instructio ns TOME NAIMA TABLETA TODOS LOS D (route: oral) Med Classific ation: Respirato ry Therapy Agents senna 8.6 mg tablet 01-30 00:00: 00 Yes [id number] Per instruc tions TODOS LOS D Per instructio ns TODOS LOS D (route: oral) Med Classific ation: Gastroint estinal Therapy Agents omeprazole 20 mg capsule,del ayed release 01-27 00:00: 00 Yes [id number] Per instruc tions TODOS LOS D Per instructio ns TODOS LOS D (route: oral) Med Classific ation: Gastroint estinal Therapy Agents mirtazapine 45 mg tablet 24 00:00: 00 Yes [id number] Per instruc tions AT BEDTIME DIRECTED Per instructio ns AT BEDTIME DIRECTED (route: oral) Med Classific ation: Central Nervous System Agents famotidine 40 mg tablet 01-30 00:00: 00 11-14 00:00 :00 No [id number] Per instruc tions Per instructio ns (route: oral) Med Classific ation: Gastroint estinal Therapy Agents olanzapine 20 mg tablet 01-30 00:00: 00 Yes [id number] Per instruc tions AT BEDTIME Per instructio ns AT BEDTIME (route: oral) Med Classific ation: Central Nervous System Agents clonazepam 1 mg tablet 01-08 00:00: 00 Yes [id number] Per instruc tions TOME NAIMA TABLETA DOS VECES AL D Per instructio ns TOME NAIMA TABLETA DOS VECES AL D (route: oral) Med Classific ation: Central Nervous System Agents dicyclomine 20 mg tablet 01-08 00:00: 00 Yes [id number] Per instruc tions CUATRO VECES AL D Per instructio ns CUATRO VECES AL D (route: oral) Med Classific ation: Gastroint estinal Therapy Agents amlodipine 2.5 mg tablet 01-19 00:00: 00 11-14 00:00 :00 No [id number] Per instruc tions TOME NAIMA TABLETA TODOS LOS D Per instructio ns TOME NAIMA TABLETA TODOS LOS D (route: oral) Med Classific ation: Cardiovas cular Therapy Agents sertraline 100 mg tablet 17 00:00: 00 Yes [id number] Per instruc tions TODOS LOS D Per instructio ns TODOS LOS D (route: oral) Med Classific ation: Central Nervous System Agents nabumetone 500 mg tablet 01-31 00:00: 00 11-14 00:00 :00 No [id number] Per instruc tions TOME NAIMA TABLETA DOS VECES AL D Per instructio ns TOME NAIMA TABLETA DOS VECES AL D (route: oral) Med Classific ation: Analgesic , Anti-infl ammatory or Antipyret ic amitriptyli ne 50 mg tablet 01-27 00:00: 00 Yes [id number] Per instruc tions TOME NAIMA TABLETA TODOS LOS D AL ACOSTARSE FOR 30 DAYS Per instructio ns TOME NAIMA TABLETA TODOS LOS D AL ACOSTARSE FOR 30 DAYS (route: oral) Med Classific ation: Central Nervous System Agents prazosin 2 mg capsule 01-22 00:00: 00 Yes [id number] Per instruc tions TODOS LOS D Per instructio ns TODOS LOS D (route: oral) Med Classific ation: Cardiovas cular Therapy Agents cholecalcif juan (vitamin D3) 50 mcg (2,000 unit) capsule 01-08 00:00: 00 Yes [id number] Per instruc tions PSULA TODOS LOS D Per instructio ns PSULA TODOS LOS D (route: oral) Med Classific ation: Electroly te Balance-N utritiona l Products cyanocobala min (vit B-12) 100 mcg tablet 01-16 00:00: 00 Yes [id number] Per instruc tions TODOS LOS D Per instructio ns TODOS LOS D (route: oral) Med Classific ation: Electroly te Balance-N utritiona l Products FeroSul 325 mg (65 mg iron) tablet 11-13 00:00: 00 Yes [id number] 325 mg 3 TIMES A WEEK 325 mg 3 TIMES A WEEK (route: oral) Med Classific ation: Electroly te Balance-N utritiona l Products Vitamin C 500 mg chewable tablet 11-13 00:00: 00 Yes [id number] 500 mg 3 TIMES A WEEK 500 [...] AWARENESS FOR SAFETY AND WILL NOTIFY CLINICAL MANAGER PROCESS AND PHYSICIAN/PROVIDER WITH ANY CHANGE IN CONDITION. [code = SKILLED NURSE WILL MAINTAIN SITUATIONAL AWARENESS FOR SAFETY AND WILL NOTIFY CLINICAL MANAGER PROCESS AND PHYSICIAN/PROVIDER WITH ANY CHANGE IN CONDITION.] Goal Patient Goal - T O FEEL HAPPY AND NOT BE TIRED ALL THE TIME. Goal Provider Goal - A PLAN OF CARE WILL BE ESTABLISHED THAT MEETS PATIENT'S SHELTER NEEDS AND INCLUDES PATIENT GOAL FOR HOME [...] End Date/Time Encounter Type Admission Type [facility]ending [facility] Care Facility Care Department Encounter ID Discharge Date Discharge Status Discharge Condition Discharge Reason Percent Goals Met 2024-11-14 00:00:00 2024-12-08 00:00:00 Outpatient TEE CALIXTO [facility] [id number] 2024-12-08 00:00:00 DISCHARGE TO HOME OR SELF CARE INDEPENDEN T WITH USE OF ASSISTIVE DEVICE NON COMPLIANT WITH PLAN OF TREATMENT 5.88
== END 2024-12-28 09:42 | disposition home or self-care (01) ==
LOC: HO.HOSX 09:41
DX: S52.501D Unspecified fracture of the lower end of right radius, subsequent encounter for closed fracture with routine healing (principal); M25.531 Pain in right wrist
CPT/HCPCS: 73110; 99212

== ENCOUNTER 2024-12-28 10:00 | Outpatient (AMB) | payer MEDICAID, SELFPAY ==
--- NOTE | 2024-12-28 10:22 | A.OFFVIS_ITS ---
Vital Signs 12/28/24 10:28 Height 5 ft Weight 130 lb BMI 25.4 Handedness Right Intake Visit Reasons: FC- ED f/u Right wrist fx DOI 12/23/24 Intake Note: Diana is a 59 year old right hand dominant female who presents today for a evaluation of her right wrist fx, DOI 12/23/24. Patient reports she had a slip and fall out side near her building were she lives landing on her wrist. She mentions that her wrist is in a lot of pain and she cant sleep. Having numbness in her finger since the injury. Patient was placed in a splint at the ED. Andres rojas has tried Tylenol and Naproxen with no relief. Allergies codeine [CODEINE] Allergy (Intermediate, Verified 12/28/24 10:27) DIZZY/NAUSEA, nausea/vomiting escitalopram [From LEXAPRO] Allergy (Intermediate, Verified 12/28/24 10:27) ? NAUSEA meperidine [MEPERIDINE] Allergy (Intermediate, Verified 12/28/24 10:27) NAUSEA morphine [MORPHINE] Allergy (Intermediate, Verified 12/28/24 10:27) PALPITATIONS, palpitation oxycodone [OXYCODONE] Allergy (Intermediate, Verified 12/28/24 10:27) PALPATATIONS, palpitations tramadol Allergy (Unknown, Verified 12/28/24 10:27) dizziness, nausea acetaminophen [From Percocet] Allergy (Verified 12/28/24 10:27) Shakiness HPI HPI FC- ED f/u Right wrist fx DOI 12/23/24: Details: Diana is a 59 year old right hand dominant female who presents today for a evaluation of her right wrist fx, DOI 12/23/24. Patient reports she had a slip and fall out side near her building were she lives landing on her wrist. She mentions that her wrist is in a lot of pain and she cant sleep. Having numbness in her finger since the injury. Patient was placed in a splint at the ED. Patient has tried Tylenol and Naproxen with no relief. [facility] Medical History (Updated 12/28/24 @ 13:54 by SLIME Jara) Primary osteoarthritis of right hand Migraine Right shoulder pain Rotator cuff tendinitis Arthritis of right shoulder region Right hand pain Breast cancer, right Status post radiation therapy Anemia Diarrhea Depression Somatization disorder Migraine equivalent syndrome Anxiety Periodontal disease Fibromyalgia Surgical History History of esophagogastroduodenoscopy (EGD) History of lumpectomy Hx of section Hx of shoulder surgery Hx of colonoscopy Family History Mother HTN (hypertension) Sister Breast cancer Bone cancer Colon polyps Sister Osteoporosis Hypercholesteremia Colon polyps Social History Household Members: None Housing: Apartment Are you a primary home care coordinator to a significant other at home: No Do you presently have visiting nurse or other home services: Yes (RESEARCH AND EVALUATION ANALYST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 Review of Systems Const All systems reviewed & are unremarkable except as noted in HPI and below Physical Exam Vital Signs: BMI result Body Mass Index 25.4 Extrem Other: There is noted to be a visible deformity of the patient's right wrist when removed from splint there is noted to be significant ecchymosis noted of the right wrist as well No erythema, edema noted No lacerations, abrasions, open areas No evidence of infection patient reports diminished sensation to the tips of all digits of the right hand Capillary refill brisk Results Reviewed Results Reviewed: X-rays obtained in the office today and independently reviewed by me, Zhou Sosa PA-C, demonstrate Displaced fracture of the right distal radius. Assessment & Plan Assessment & Plan (1) Fracture of right distal radius: Code(s): S52.501A - Unspecified fracture of the lower end of right radius, initial encounter for closed fracture Category: Medical Plan 1. Right distal radius fracture 2. Right hand numbness and tingling date of injury 12/23/2024 I educated the patient about the condition. I discussed both operative and nonoperative treatment options. The patient would like to proceed with surgery. The risks and benefits of operative treatment were discussed with the patient and the patient wishes to proceed with surgery. These risks include, but are not limited to, risk of damage to blood vessels, nerves, tendons, infection, recurrence, incomplete relief of preoperative symptoms, persistent pain, possible need for further surgery, and the risks associated with regional blocks and/or anesthesia. Plan is to take the patient to the operating room on 01/02/2025 for the following procedures: 1. Right distal radius ORIF under general 2. Right carpal tunnel release under general All of the preoperative paperwork including the consent was discussed today. All of the patient's questions were answered in the clinic today. The patient understands that they will be in contact with our surgical appliances salesperson to discuss scheduling their procedure. Patient denies diabetes, blood thinners, asthma, heart issues, lung issues, kidney issues, or current smoking. Orders: Orders XR wrist RT min 3V Today M25.531 - Pain in right wrist Coding Level of Care Code New Pt Level 4 (94640) Diagnoses Fracture of right distal radius S52.501A
[2024-12-28 10:28] VITALS: BMI 25.4
--- OUTSIDE RECORDS SUMMARY | 2024-12-28 11:59 | XMS_ITS | Encounter Summary ---
Author Organization [employer] Address [address] [facility] [address] [place] [address] Care Team Providers Care Hardboard Press Operator Name Role Phone Umm Coley MD Primary Care Provider + Reason for Visit * Reason Onset Date Comments appt 01/08/2024 Encounter Details Date Type Department Care Team ([facility] st Contact Info) Description 01/08/2024 Telephone [facility] ADULT DENTAL [address] [place], [place] [phone] Homer Strong, DMD [address] [place] [address] appt Social History Tobacco Use Types Packs/Day [...] Description 03/08/2025 10:00 AM EDT Office Visit [facility] ADULT DENTAL [address] [place] [address] Elzbieta, Mariangel [address] [place] [address] documented as of this encounter Visit Diagnoses Not on filedocumented in this encounter Additional Health Concerns Assessment Noted Time PHQ-9 Depression Total Score: 21 024 11:31 AM EST documented as of this encounter Care Teams Hardboard Press Operator Relationship Specialty Start Date End Date Umm Coley MD [address] [place] [address] PCP - General Family Medicine 10/31/16 Eva Nunez Iron Setter 04/05/24 07/06/24 [facility] 05/11/24 11/17/24 [facility] 11/14/24 documented as of this encounter
--- OUTSIDE RECORDS SUMMARY | 2024-12-28 12:00 | XMS_ITS | Encounter Summary ---
Author Organization [employer] Address [address] [facility] 7[address] [place] [address] Care Team Providers Care Paper Cone Grader Name Role Phone Umm Coley MD Primary Care Provider + Reason for Visit * Reason Onset Date Comments FYI. 12/08/2024 Encounter Details Date Type Department Care Team ([facility] st Contact Info) Description 12/08/2024 Telephone [facility] MEDICINE [address] [place], [place] [phone] Umm Coley MD [address] [place], [place] [phone] FYI. Social History Tobacco Use Types Packs/Day [...] AM EST TC returned to Mir Almonte [phone] in regards to below message. Tyrel did [...] contact Tyrel with any further questions at [phone]. documented in this encounter Plan of Treatment Upcoming Encounters Date Type Department Care Team (Late st Contact Info) Description 03/08/2025 10:00 AM EDT Office Visit [facility] ADULT DENTAL [address] [place], [place] [phone] Trino Ruffaris [address] [place] [address] documented as of this encounter Visit Diagnoses Not on filedocumented in this encounter Additional Health Concerns Assessment Noted Time PHQ-9 Depression Total Score: 10 024 9:17 AM EDT documented as of this encounter Care Teams Paper Cone Grader Relationship Specialty Start Date End Date Umm Coley MD [address] [place] [address] PCP - General Family Medicine 10/31/16 [facility] 11/14/24 documented as of this encounter
--- OUTSIDE RECORDS SUMMARY | 2024-12-28 12:00 | XMS_ITS | Encounter Summary ---
Author Organization [employer] Address [address] [facility] 7t [place] [address] Care Team Providers Care Regulatory Affairs Associate Name Role Phone Umm Coley MD Primary Care Provider + Reason for Visit * Reason Onset Date Comments Appointment Request 12/26/2024 Encounter Details Date Type Department Care Team ([facility] st Contact Info) Description 12/26/2024 Telephone [facility] MEDICINE [address] [place], [place] [phone] Umm Coley MD [address] [place], [place] [phone] Appointment Request Social History Tobacco Use Types [...] fracture. RN inquired if patient can have AIR CHIPPER assist her in dressing in order for patient to be able to come to [facility] to be evaluated. Patient verbalized understanding and reports she will havePCA assist her. Patient reminded of appointment time. Patient to f/u PRN. * Telephone Encounter - Gisela Reynoso RN - 12/26/2024 10:30 AM EST TC placed to [phone] in regards to below message. Patient did [...] at that time tomorrow. Contact pt at [phone] documented in this encounter Plan of Treatment Upcoming Encounters Date Type Department Care Team (Late st Contact Info) Description 03/08/2025 10:00 AM EDT Office Visit [facility] ADULT DENTAL [address] [place] [address] Elzbieta Mariangel [address] [place] [address] documented as of this encounter Visit Diagnoses Not on filedocumented in this encounter Additional Health Concerns Assessment Noted Time PHQ-9 Depression Total Score: 10 024 9:17 AM EDT documented as of this encounter Care Teams Regulatory Affairs Associate Relationship Specialty Start Date End Date Umm Coley MD [address] [place] [address] PCP - General Family Medicine 10/31/16 [facility] 11/14/24 documented as of this encounter
--- OUTSIDE RECORDS SUMMARY | 2024-12-28 12:00 | XMS_ITS | Encounter Summary ---
Author Organization [employer] Address [address] [facility] 7t [place] [address] Care Team Providers Care Construction Engineering Manager Name Role Phone Umm Coley MD [...] Description 03/08/2025 10:00 AM EDT Office Visit [facility] ADULT DENTAL [address] [place] [address] Elzbieta, Mariangel [address] [place] [address] documented as of this encounter Visit Diagnoses Not on filedocumented in this encounter Additional Health Concerns Assessment Noted Time PHQ-9 Depression Total Score: 10 024 9:17 AM EDT documented as of this encounter Care Teams Construction Engineering Manager Relationship Specialty Start Date End Date Umm Coley MD [address] [place] [address] PCP - General Family Medicine 10/31/16 [facility] 11/14/24 documented as of this encounter
--- OUTSIDE RECORDS SUMMARY | 2024-12-28 12:00 | XMS_ITS | Encounter Summary ---
Author Organization [employer] Address [address] [facility] 7t [place] [address] Care Team Providers Care Pipeline Operator Name Role Phone Umm Coley MD Primary Care Provider + Reason for Visit * Reason Onset Date Comments Appointment Request 12/22/2024 Encounter Details Date Type Department Care Team ([facility] st Contact Info) Description 12/22/2024 Telephone [facility] MEDICINE [address] [place], [place] [phone] Umm Coley MD [address] [place], [place] [phone] Appointment Request Social History Tobacco Use Types [...] 10:27 AM EST TC returned to patient [phone] in regards to below message. Patient reports [...] AM EST Tc from pt returning call. Thai * Telephone Encounter - Gisela Reynoso RN - 12/22/2024 8:36 AM EST TC placed to patient [phone] in regards to below message. Patient did [...] available to be scheduled. Contact pt at [phone] documented in this encounter Plan of Treatment Upcoming Encounters Date Type Department Care Team (Late st Contact Info) Description 03/08/2025 10:00 AM EDT Office Visit [facility] ADULT DENTAL [address] [place], [place] [phone] ElzbietaMariangel [address] [place] [address] documented as of this encounter Visit Diagnoses Not on filedocumented in this encounter Additional Health Concerns Assessment Noted Time PHQ-9 Depression Total Score: 10 024 9:17 AM EDT documented as of this encounter Care Teams Pipeline Operator Relationship Specialty Start Date End Date Umm Coley MD [address] [place] [address] PCP - General Family Medicine 10/31/16 [facility] 11/14/24 documented as of this encounter
--- OUTSIDE RECORDS SUMMARY | 2024-12-28 12:00 | XMS_ITS | Encounter Summary ---
Author Organization [employer] Address [address] [facility] [address]t [place] [address] Care Team Providers Care Plater Hot Dip Name Role Phone Umm Coley MD Primary Care Provider + Reason for Visit * Reason Onset Date Comments VNA services 12/08/2024 Encounter Details Date Type Department Care Team ([facility] st Contact Info) Description 12/08/2024 Telephone [facility] MEDICINE [address] [place], [place] [phone] Gisela Reynoso, BEBA [address] [place], [place] [phone] VNA services Social History Tobacco Use Types [...] your housing situation today? I have sylvia ehster 08/19/[address] you li [...] can fill the patients lock box at [facility] (she uses [facility] not [facility] pharmacy) to bridge the gap until patient can become established with a new VNA. PCP reports she willing to pre-fill medbox however wants to ensure it is acceptable legally. RN spoke to Sana with PCP, who informed it is acceptable for medications to be placed in lock boxby [facility] however the visit should be billed [...] [facility]fe ([facility] liasion) will not be servicing [facility] today d/t the weather however advised RN to fax referral to [phone] (confirmation page received). Ofe will notify office of referral urgency. documented in this encounter Plan of Treatment Upcoming Encounters Date Type Department Care Team (Late st Contact Info) Description 03/08/2025 10:00 AM EDT Office Visit [facility] ADULT DENTAL [address] [place] [address] Trino Ruffaris [address] [place] [address] documented as of this encounter Visit Diagnoses Not on filedocumented in this encounter Additional Health Concerns Assessment Noted Time PHQ-9 Depression Total Score: 10 06/10/ 024 9:17 AM EDT documented as of this encounter Care Teams Plater Hot Dip Relationship Specialty Start Date End Date Umm Coley MD [address] [place] [address] PCP - General Family Medicine 10/31/16 [facility] 11/14/24 documented as of this encounter
--- OUTSIDE RECORDS SUMMARY | 2024-12-28 12:00 | XMS_ITS | Encounter Summary ---
Author Organization [facility] [facility] Address [address] [place] [address] 7t [place] [address] Care Team Providers Care Sales Trainee Name Role Phone Umm Coley MD Primary Care Provider + Encounter Details Date Type Department Care Team (Latest Contact Info) Description 09/16/[address] [facility] CONVERSIONS Dental, Provider, DDS Social History [...] 10:00 AM EDT Office Visit [facility] ADULT DENTAL [address] [place] [address] Elzbieta, Mariangel [address] [place] [address] documented as of this encounter Visit Diagnoses Not on filedocumented in this encounter Care Teams Sales Trainee Relationship Specialty Start Date End Date Umm Coley MD [address] [place] [address] PCP - General Family Medicine 10/31/16 Eva Nunez Hearing And Speech Assistant 04/05/24 07/06/24 [facility] 05/11/24 11/17/24 [facility] 11/14/24 documented as of this encounter
--- OUTSIDE RECORDS SUMMARY | 2024-12-28 12:00 | XMS_ITS | Encounter Summary ---
Author Organization [facility] Address [address] [place] [address] 7t [place] [address] Care Team Providers Care Blood Bank Business Manager Name Role Phone Umm Coley MD Primary Care Provider + Encounter Details Date Type Department Care Team (Latest Contact Info) Description 03/13/2022 Abstract [facility] CONVERSIONS Dental, Provider, DDS Social History Tobacco [...] 10:00 AM EDT Office Visit [facility] ADULT DENTAL [address] [place] [address] Elzbieta, Mariangel [address] [place] [address] documented as of this encounter Visit Diagnoses Not on filedocumented in this encounter Care Teams Blood Bank Business Manager Relationship Specialty Start Date End Date Umm Coley MD [address] [place] [address] PCP - General Family Medicine 10/31/16 Eva Nunez Ventilation Mechanic 04/05/24 07/06/24 [facility] 05/11/24 11/17/24 [facility] 11/14/24 documented as of this encounter
--- OUTSIDE RECORDS SUMMARY | 2024-12-28 12:00 | XMS_ITS | Clinical Summary ---
Author Organization Unknown Care Team Providers Care Salesperson Women'S Dresses Name Role Phone DANIEL JACOBS, SHALONDA Unavailable Unavailable DUANE YODER, TEE Unavailable Unavailable Payers Payer Name Policy Type Policy Number Effective Date Expira tion Date MEDICAID [facility] [id number] Problems Condition Name Condition Details Condition Category [...] UNSPECIFIED SITE Active 5-12 00:00: 00 [facility] Active 1-15 00:00: 00 [facility] USE OF NON-STEROIDA L NON-INFLAM (NSAID) [...] on aerosol inhaler 01-20 00:00: 00 Yes [id number] Per instruc tions DOS VECES AL D Per instructio ns DOS VECES AL D (route: inhalation ) Med Classific ation: Respirato ry Therapy Agents magnesium oxide 400 mg (241.3 mg magnesium) tablet 01-30 00:00: 00 11-14 00:00 :00 No [id number] Per instruc tions TOME NAIMA TABLETA TODOS LOS D Per instructio ns TOME NAIMA TABLETA TODOS LOS D (route: oral) Med Classific ation: Electroly te Balance-N utritiona l Products buspirone 15 mg tablet 01-16 00:00: 00 Yes [id number] Per instruc tions TOME NAIMA TABLETA CHEMA VECES AL D Per instructio ns TOME NAIMA TABLETA CHEMA VECES AL D (route: oral) Med Classific ation: Central Nervous System Agents melatonin 5 mg tablet 01-30 00:00: 00 Yes [id number] Per instruc tions EVERYDAY AT 5 PM FOR 2 WEEKS THEN MAY INCREASE TO 2 TABS E VERYDAY AT Per instructio ns EVERYDAY AT 5 PM FOR 2 WEEKS THEN MAY INCREASE TO 2 TABS E VERYDAY AT (route: oral) Med Classific ation: Central Nervous System Agents loratadine 10 mg tablet 01-04 00:00: 00 Yes [id number] Per instruc tions TOME NAIMA TABLETA TODOS LOS D Per instructio ns TOME NAIMA TABLETA TODOS LOS D (route: oral) Med Classific ation: Respirato ry Therapy Agents senna 8.6 mg tablet 01-30 00:00: 00 Yes [id number] Per instruc tions TODOS LOS D Per instructio ns TODOS LOS D (route: oral) Med Classific ation: Gastroint estinal Therapy Agents omeprazole 20 mg capsule,del ayed release 01-27 00:00: 00 Yes [id number] Per instruc tions TODOS LOS D Per instructio ns TODOS LOS D (route: oral) Med Classific ation: Gastroint estinal Therapy Agents mirtazapine 45 mg tablet 24 00:00: 00 Yes [id number] Per instruc tions AT BEDTIME DIRECTED Per instructio ns AT BEDTIME DIRECTED (route: oral) Med Classific ation: Central Nervous System Agents famotidine 40 mg tablet 01-30 00:00: 00 11-14 00:00 :00 No [id number] Per instruc tions Per instructio ns (route: oral) Med Classific ation: Gastroint estinal Therapy Agents olanzapine 20 mg tablet 01-30 00:00: 00 Yes [id number] Per instruc tions AT BEDTIME Per instructio ns AT BEDTIME (route: oral) Med Classific ation: Central Nervous System Agents clonazepam 1 mg tablet 01-08 00:00: 00 Yes [id number] Per instruc tions TOME NAIMA TABLETA DOS VECES AL D Per instructio ns TOME NAIMA TABLETA DOS VECES AL D (route: oral) Med Classific ation: Central Nervous System Agents dicyclomine 20 mg tablet 01-08 00:00: 00 Yes [id number] Per instruc tions CUATRO VECES AL D Per instructio ns CUATRO VECES AL D (route: oral) Med Classific ation: Gastroint estinal Therapy Agents amlodipine 2.5 mg tablet 01-19 00:00: 00 11-14 00:00 :00 No [id number] Per instruc tions TOME NAIMA TABLETA TODOS LOS D Per instructio ns TOME NAIMA TABLETA TODOS LOS D (route: oral) Med Classific ation: Cardiovas cular Therapy Agents sertraline 100 mg tablet 17 00:00: 00 Yes [id number] Per instruc tions TODOS LOS D Per instructio ns TODOS LOS D (route: oral) Med Classific ation: Central Nervous System Agents nabumetone 500 mg tablet 01-31 00:00: 00 11-14 00:00 :00 No [id number] Per instruc tions TOME NAIMA TABLETA DOS VECES AL D Per instructio ns TOME NAIMA TABLETA DOS VECES AL D (route: oral) Med Classific ation: Analgesic , Anti-infl ammatory or Antipyret ic amitriptyli ne 50 mg tablet 01-27 00:00: 00 Yes [id number] Per instruc tions TOME NAIMA TABLETA TODOS LOS D AL ACOSTARSE FOR 30 DAYS Per instructio ns TOME NAIMA TABLETA TODOS LOS D AL ACOSTARSE FOR 30 DAYS (route: oral) Med Classific ation: Central Nervous System Agents prazosin 2 mg capsule 01-22 00:00: 00 Yes [id number] Per instruc tions TODOS LOS D Per instructio ns TODOS LOS D (route: oral) Med Classific ation: Cardiovas cular Therapy Agents cholecalcif juan (vitamin D3) 50 mcg (2,000 unit) capsule 01-08 00:00: 00 Yes [id number] Per instruc tions PSULA TODOS LOS D Per instructio ns PSULA TODOS LOS D (route: oral) Med Classific ation: Electroly te Balance-N utritiona l Products cyanocobala min (vit B-12) 100 mcg tablet 01-16 00:00: 00 Yes [id number] Per instruc tions TODOS LOS D Per instructio ns TODOS LOS D (route: oral) Med Classific ation: Electroly te Balance-N utritiona l Products FeroSul 325 mg (65 mg iron) tablet 11-13 00:00: 00 Yes [id number] 325 mg 3 TIMES A WEEK 325 mg 3 TIMES A WEEK (route: oral) Med Classific ation: Electroly te Balance-N utritiona l Products Vitamin C 500 mg chewable tablet 11-13 00:00: 00 Yes [id number] 500 mg 3 TIMES A WEEK 500 [...] AWARENESS FOR SAFETY AND WILL NOTIFY CLINICAL AUTOMOBILE DAMAGE APPRAISER AND PHYSICIAN/PROVIDER WITH ANY CHANGE IN CONDITION. [code = SKILLED NURSE WILL MAINTAIN SITUATIONAL AWARENESS FOR SAFETY AND WILL NOTIFY CLINICAL AUTOMOBILE DAMAGE APPRAISER AND PHYSICIAN/PROVIDER WITH ANY CHANGE IN CONDITION.] Goal Patient Goal - T O FEEL HAPPY AND NOT BE TIRED ALL THE TIME. Goal Provider Goal - A PLAN OF CARE WILL BE ESTABLISHED THAT MEETS PATIENT'S [facility] NEEDS AND INCLUDES PATIENT GOAL FOR HOME [...] End Date/Time Encounter Type Admission Type Attending [facility] Care Facility Care Department Encounter ID Discharge Date Discharge Status Discharge Condition Discharge Reason Percent Goals Met 2024-11-14 00:00:00 2024-12-08 00:00:00 Outpatient TEE CALIXTO [facility] [id number] 2024-12-08 00:00:00 DISCHARGE TO HOME OR SELF CARE INDEPENDEN T WITH USE OF ASSISTIVE DEVICE NON COMPLIANT WITH PLAN OF TREATMENT 5.88
--- OUTSIDE RECORDS SUMMARY | 2024-12-28 12:00 | XMS_ITS | Encounter Summary ---
Author Organization [employer] Address [address] [facility] 7t [place] [address] Care Team Providers Care Supervisor Nuclear Medicine Name Role Phone Umm Coley MD Primary [...] 10:00 AM EDT Office Visit [facility] ADULT DENTAL [address] [place] [address] Elzbieta, Mariangel [address] [place] [address] documented as of this encounter Visit Diagnoses Not on filedocumented in this encounter Additional Health Concerns Assessment Noted Time PHQ-9 Depression Total Score: 10 024 9:17 AM EDT documented as of this encounter Care Teams Supervisor Nuclear Medicine Relationship Specialty Start Date End Date Umm Coley MD [address] [place] [address] PCP - General Family Medicine 10/31/16 [facility] 11/14/24 documented as of this encounter
--- OUTSIDE RECORDS SUMMARY | 2024-12-28 12:00 | XMS_ITS | Encounter Summary ---
Author Organization [employer] Address [address] [facility] 7t [place] [address] Care Team Providers Care Industrial Economics Teacher Name Role Phone Umm Coley MD Primary Care Provider + Reason for Visit * Reason Onset Date Comments Call Back Request 12/20/2024 Encounter Details Date Type Department Care Team ([facility] st Contact Info) Description 12/20/2024 Telephone [facility] MEDICINE [address] [place], [place] [phone] Umm Coley MD [address] [place], [place] [phone] Call Back Request Social History Tobacco Use [...] PM EST RN was informed by [facility] ([facility]) that they have changed the patients nurse to a female nurse. Patient's VNA will now be [facility]. * Telephone Encounter - Deyvi Bray RN - 12/21/2024 9:51 AM EST TC returned to patient (via [facility] project technician) no answer left voicemail to return call to clinic. * Telephone Encounter - Rossana Lawrence - 12/21/2024 9:32 AM EST Tc from pt requesting a call back regarding message below. Russian * Telephone Encounter - Umm Coley MD - 12/20/2024 4:24 PM EST Nurse malted milk supervisor note re meds appreciated. Agree with [...] 3:28 PM EST Spoke to patient (with [facility] medical record librarian) regarding VNA nurse and meds (as discussed [...] RN discposed of medications in sharps container ([facility] medical record librarian witnessed disposal). One pill was orange/red capsule [...] if we can switch them. RN called [facility] VNA spoke to director Zara whowas [...] verbalized understanding and will return call to energy manager if she is able to find [...] reports she has a new VNA service ([facility]) which started on Thursday. Patient reports on Thursday it was two females who went to the patients braxton and they put all the medications on [...] name and confirm he is employed by [facility]. Patient reports she is having a hard time trusting the VNAand that he is aware of what he is doing. TC placed to VNA Randy [phone] to discuss above situation. Randy VNA reports [...] to PCP who requested RN call Deyvi (energy manager) to speak to patient. RN called [...] a Nurse of PCP Contact pt at [phone] documented in this encounter Plan of Treatment Upcoming Encounters Date Type Department Care Team (Late st Contact Info) Description 03/08/2025 10:00 AM EDT Office Visit [facility] ADULT DENTAL [address] [place] [address] Elzbieta, Mariangel [address] [place] [address] documented as of this encounter Visit Diagnoses Not on filedocumented in this encounter Additional Health Concerns Assessment Noted Time PHQ-9 Depression Total Score: 10 024 9:17 AM EDT documented as of this encounter Care Teams Industrial Economics Teacher Relationship Specialty Start Date End Date Umm Coley MD [address] [place] [address] PCP - General Family Medicine 10/31/16 [facility] 11/14/24 documented as of this encounter
--- OUTSIDE RECORDS SUMMARY | 2024-12-28 12:00 | XMS_ITS | Encounter Summary ---
Author Organization [employer] Address [address] [facility] 7t [place] [address] Care Team Providers Care Sales Driver Name Role Phone Umm Coley MD Primary Care Provider + Reason for Visit * Reason Onset Date Comments Chart prep 12/23/2024 Encounter Details Date Type Department Care Team ([facility] st Contact Info) Description 12/23/2024 Telephone [facility] MEDICINE [address] [place], [place] [phone] Umm Coley MD [address] [place], [place] [phone] Chart prep Social History Tobacco Use Types [...] Description 03/08/2025 10:00 AM EDT Office Visit [facility] ADULT DENTAL [address] [place] [address] Trino Ruffaris [address] [place] [address] documented as of this encounter Visit Diagnoses Not on filedocumented in this encounter Additional Health Concerns Assessment Noted Time PHQ-9 Depression Total Score: 10 024 9:17 AM EDT documented as of this encounter Care Teams Sales Driver Relationship Specialty Start Date End Date Umm Coley MD [address] [place], [place] [phone] PCP - General Family Medicine 10/31/16 [facility] 11/14/24 documented as of this encounter
--- OUTSIDE RECORDS SUMMARY | 2024-12-28 12:00 | XMS_ITS | Encounter Summary ---
Author Organization [employer] Address [address] [facility] 7t [place] [address] Care Team Providers Care Fur Sewer Name Role Phone Umm Coley MD Primary [...] Description 03/08/2025 10:00 AM EDT Office Visit [facility] ADULT DENTAL [address] [place] [address] Elzbieta, Mariangel [address] [place] [address] documented as of this encounter Visit Diagnoses Not on filedocumented in this encounter Additional Health Concerns Assessment Noted Time PHQ-9 Depression Total Score: 10 024 9:17 AM EDT documented as of this encounter Care Teams Fur Sewer Relationship Specialty Start Date End Date Umm Coley MD 230 [place] [address] PCP - General Family Medicine 10/31/16 [facility] 11/14/24 documented as of this encounter
--- OUTSIDE RECORDS SUMMARY | 2024-12-28 12:00 | XMS_ITS | Encounter Summary ---
Author Organization [employer] Address [address] [facility] 7t [place] [address] Care Team Providers Care Medical Billing Coder Name Role Phone mUm Coley MD Primary Care Provider + Reason for Visit * Reason Onset Date Comments Chart prep 12/07/2024 Encounter Details Date Type Department Care Team ([facility] st Contact Info) Description 12/07/2024 Telephone [facility] [address] [place], [place] [phone] Juana Connor MA Chart prep Social History [...] EDT Office Visit [facility] ADULT DENTAL [address] [place] [address] Trino Ruffaris [address] [place] [address] documented as of this encounter Visit Diagnoses Not on filedocumented in this encounter Additional Health Concerns Assessment Noted Time PHQ-9 Depression Total Score: 10 024 9:17 AM EDT documented as of this encounter Care Teams Medical Billing Coder Relationship Specialty Start Date End Date Umm Coley MD [address] [place] [address] PCP - General Family Medicine 10/31/16 [facility] 11/14/24 documented as of this encounter
--- OUTSIDE RECORDS SUMMARY | 2024-12-28 12:00 | XMS_ITS | Encounter Summary ---
Author Organization [employer] Address [address] [place] [address] 7t [place] [address] Care Team Providers Care Piano Machine Operator Name Role Phone Umm Coley MD Primary Care Provider + Encounter Details Date Type Department Care Team (Late st Contact Info) Description 09/24/2022 Abstract [facility] ADULT DENTAL [address] [place] [address] Dental, Provider, DDS Social History Tobacco Use [...] Description 03/08/2025 10:00 AM EDT Office Visit [facility] ADULT DENTAL [address] [place] [address] Mariangel Ruff [address] [place] [address] documented as of this encounter Procedures Procedure [...] on filedocumented in this encounter Care Teams Piano Machine Operator Relationship Specialty Start Date End Date Umm Coley MD [address] [place] [address] PCP - General Family Medicine 10/31/16 Eva Nunez Broadcast Operations Manager 04/05/24 07/06/24 [facility] 05/11/24 11/17/24 [facility] 11/14/24 documented as of this encounter
--- OUTSIDE RECORDS SUMMARY | 2024-12-28 12:00 | XMS_ITS | Encounter Summary ---
Author Organization [employer] Address [address] [facility] 7t [place] [address] Care Team Providers Care Chaplaincy Name Role Phone Umm Coley MD Primary Care Provider + Reason for Visit * Reason Comments Medication Problem Encounter Details Date Type Department Care Team ([facility] st Contact Info) Description 12/08/2024 12:15 PM EST Office Visit [facility] MEDICINE [address] [place], [place] [phone] Umm Coley MD [address] [place], [place] [phone] Recurrent falls (Primary Dx); Neuropathy of both [...] the nurse that she had followed to [facility] wanted her to sign some [facility] documents (reportedly to provide services?) that she didn't feel comfortable signing and didn't offer further explanation so the nurse walked out of the house and she was discharged from the [facility]. She's concerned that she only has med [...] comfortable taking meds by herself and her MILK TRUCK DRIVER doesn't know how to put them on [...] we can organize the medications. Pt and MILK TRUCK DRIVER agreed with the plan of care. POC discussed with team nurse and supervisor plastic sheets. Neuropathy of both feet Generalized anxiety disorder [...] we can organize the medications. Pt and MILK TRUCK DRIVER agreed with the plan of care. POC discussed with team nurse and supervisor plastic sheets. * Addendum Note - Umm Coley MD - 12/08/2024 12:15 PM ESTAddended by: MUM COLEY on: 12/12/2024 12:28 PM Modules accepted: Level of Service documented in this encounter Plan of Treatment Upcoming Encounters Date Type Department Care Team (Late st Contact Info) Description 03/08/2025 10:00 AM EDT Office Visit [facility] ADULT DENTAL [address] [place] [address] Elzbieta, Mariangel [address] [place] [address] documented as of this encounter Visit Diagnoses Diagnosis Recurrent falls- Primary Neuropathy of both feet Generalized anxiety disorder documented in this encounter Additional Health Concerns Assessment Noted Time PHQ-9 Depression Total Score: 10 024 9:17 AM EDT documented as of this encounter Care Teams Chaplaincy Relationship Specialty Start Date End Date Umm Coley MD [address] [place] [address] PCP - General Family Medicine 10/31/16 [facility] 11/14/24 documented as of this encounter
--- OUTSIDE RECORDS SUMMARY | 2024-12-28 12:00 | XMS_ITS | Encounter Summary ---
Author Organization [employer] Address [address] [facility] 7t [place] [address] Care Team Providers Care News Reel Cameraman Name Role Phone Umm Coley MD Primary Care Provider + Reason for Visit * Reason Onset Date Comments PCP Contact 12/08/2024 Medbox set up. Encounter Details Date Type Department Care Team ([facility] Contact Info) Description 12/13/2024 Telephone [facility] MEDICINE [address] [place], [place] [phone] Umm Coley MD [address] [place], [place] [phone] PCP Contact (Medbox set up.) Social History [...] EST Patient came on Thursday12/09/24 with her AIRCRAFT LOG CLERK and they brought the log med box [...] with pharmaco education, discussing with patient and AIRCRAFT LOG CLERK regarding the useand side effects of medications. [...] counselor for this polypharmacy I gave patient's AIRCRAFT LOG CLERK the med box for that day and the remaining of the pillboxes were pulled into the lock box again, her daughter has the black box combination to open it up. documented in this encounter Plan of Treatment Upcoming Encounters Date Type Department Care Team (Late st Contact Info) Description 03/08/2025 10:00 AM EDT Office Visit [facility] ADULT DENTAL [address] [place] [address] Elzbieta, Mariangel [address] [place] [address] documented as of this encounter Visit Diagnoses Not on filedocumented in this encounter Additional Health Concerns Assessment Noted Time PHQ-9 Depression Total Score: 10 024 9:17 AM EDT documented as of this encounter Care Teams News Reel Cameraman Relationship Specialty Start Date End Date Umm Coley MD [address] [place] [address] PCP - General Family Medicine 10/31/16 [facility] 11/14/24 documented as of this encounter
--- OUTSIDE RECORDS SUMMARY | 2024-12-28 12:00 | XMS_ITS | Encounter Summary ---
Author Organization [employer] Address [address] [facility] 7t [place] [address] Care Team Providers Care Cutter Machine Tender Name Role Phone Umm Coley MD Primary Care Provider + Encounter Details Date Type Department Care Team (Late st Contact Info) Description 11/03/2022 Orders Only [facility] MEDICINE [address] [place], [place] [phone] Umm Coley MD [address] [place], [place] [phone] Osteopenia after menopause (Primary Dx) Social History [...] Description 03/08/2025 10:00 AM EDT Office Visit [facility] ADULT DENTAL [address] [place], [place] [phone] Mariangel Ruff [address] [place], [place] [phone] Scheduled Orders Name Type Priority Associated Diagnoses Orde r Schedule Vitamin D, 25-Hydroxy, Total, Immunoassay Lab Routine Osteopenia after menopause Expected: 11/03/2022 (Approximate), Expires: 11/03/2023 PTH, Intact (ICMA) And Ionized Calcium Lab Routine Osteopenia after menopause Expected: 11/03/2022 (Approximate), Expires: 11/03/2023 documented as of this encounter Visit Diagnoses Diagnosis Osteopenia after menopause- Primary documented in this encounter Care Teams Cutter Machine Tender Relationship Specialty Start Date End Date Umm Coley MD [address] [place] [address] PCP - General Family Medicine 10/31/16 Eva Nunez Hydraulic Corrugating Machine Operator 04/05/24 07/06/24 [facility] 05/11/24 11/17/24 [facility] 11/14/24 documented as of this encounter
--- OUTSIDE RECORDS SUMMARY | 2024-12-28 12:00 | XMS_ITS | Encounter Summary ---
Author Organization [employer] [facility] Address [address] [place] [address] 7t [place] [address] Care Team Providers Care Appraiser Personal Property Name Role Phone Shalonda Coley MD Primary Care Provider + Reason for Referral * Consultation (Routine) - Closed Specialty Diagnoses / Procedures Referred By Contkassie t Referred To Contact Case Management Diagnoses Encounter for monitoring of patient compliance in drug treatment program Shalonda Coley MD [address] [place] [address] Phone: tel: fax: Referral ID Status Reason Start Date Expiration Date V isits Requested Visits Authorized [id number] Closed Specialty Services Required 12/27/2024 12/27/2025 1 1 Reason for Visit * Reason Comments Weakness, Gen Encounter Details Date Type Department Care Team (Late st Contact Info) Description 12/27/2024 1:00 PM EST Office Visit [facility] MEDICINE [address] [place], [place] [phone] Shalonda Coley MD [address] [place], [place] [phone] Encounter for monitoring of patient compliance in [...] this issue to anyone at [facility] VNA. Acute Concerns: She complains of [...] management by current VNA services ([facility]). I asked her if she wants me to cancel the services and try to find a new one, but she declined. I suggested her to reach out to [facility] supervisors and verify credential information and address issues that she has with current medication management. I will ask our care managers to reach out to her to assist her with this issue and try to stabilizeher on a VNA service. Will ask [facility] VNA service to send a list [...] [facility]IA [place] [place] [facility] 90 tablet [...] management by current VNA services ([facility]). I asked her if she wants [...] 03/08/2025 10:00 AM EDT Office Visit [facility] ADULT DENTAL [address] [place] [address] Elzbieta, Mariangel [address] [place] [address] Scheduled Referrals Name Type Priority Associated Diagnoses [...] PM EST Narrative 12/27/2024 2:35 PM EST ?[facility] ?[address] [facility]. ?[place] [address] ?XRay Report ? Signed ? Patient: Myles,Diana L ?MR#: [id number] ?? 8 ? : 1965 ?Acct:[id number] ? Age/Sex: 59 / F ?ADM Date: 02/25/25 ? Loc: HO.HHCX ? Attending Dr: Shalonda Coley MD ? Ordering Physician: Shalonda Coley MD ?? Date of Service: 12/27/24 ?? Procedure(s): XR ribs RT 2V ?? Accession Number(s): [id number] ? cc: Shalonda Coley MD ? EXAMINATION: [...] DD/ 1356 ? TD/TT: 12/27/24 1424 ? Thermit Welding Machine Operator: ? Procedure Note Donkatelynjadenclaudiater, Image - 12/27/2024 [place] [address] XRay Report Signed Patient: Diana Myles LMR#: [id number] 8 : 1965Acct:[id number] Age/Sex: 59 / FADM Date: 12/27/24 Loc: HO.HHCX Attending Dr: Shalonda Coley MD Ordering Physician: Shalonda Coley MD Date of Service: 12/27/24 Procedure(s): XR ribs RT 2V Accession Number(s): [id number] cc: Shalonda Coley MD EXAMINATION: XR CHEST [...] 12/27/24 1433 DD/ 1356 TD/TT: 12/27/24 1424 Thermit Welding Machine Operator: us Shalonda Coley MD IMG XR PROCEDURES Final Result * XR Chest 2 Views (12/27/2024 1:56 PM EST) Anatomical Region Laterality Modality Chest Radiographic Kyleigh ging 12/27/2024 1:56 PM EST Narrative 12/27/2024 2:36 PM EST ?[facility] ?[address] ?[place] [address] ?XRay Report ? Signed ? Patient: Diana Myles ?MR#: [id number] ?? 8 ? : 1965 ?Acct:[id number] ? Age/Sex: 59 / F ?ADM Date: 12/27/24 ? Loc: HO.HHCX ? Attending Dr: Shalonda Coley MD ? Ordering Physician: Shalonda Coley MD ?? Date of Service: 12/27/24 ?? Procedure(s): XR chest 2V ?? Accession Number(s): [id number] ? cc: Shalonda Coley MD ? EXAMINATION: [...] DD/ 1356 ? TD/TT: 12/27/24 1424 ? Thermit Welding Machine Operator: ? Procedure Note Donotjadenclaudiater, Image - 12/27/2024 [place] [address] XRay Report Signed Patient: Diana Myles LMR#: [id number] 8 : 1965Acct:[id number] Age/Sex: 59 / FADM Date: 12/27/24 Loc: HO.HHCX Attending Dr: Shalonda Coley MD Ordering Physician: Shalonda Coley MD Date of Service: 12/27/24 Procedure(s): XR chest 2V Accession Number(s): [id number] cc: Shalonda Coley MD EXAMINATION: XR CHEST [...] 12/27/24 1433 DD/ 1356 TD/TT: 12/27/24 1424 Thermit Welding Machine Operator: us Shalonda Coley MD IMG XR PROCEDURES Final Result documented in this encounter Visit Diagnoses Diagnosis Encounter for monitoring of patient compliance in drug treatment program- Primary Intercostal pain documented in this encounter Additional Health Concerns Assessment Noted Time PHQ-9 Depression Total Score: 10 024 9:17 AM EDT documented as of this encounter Care Teams Appraiser Personal Property Relationship Specialty Start Date End Date Shalonda Coley MD [address] [place] [address] PCP - General Family Medicine 10/31/16 [facility] 11/14/24 documented as of this encounter
--- OUTSIDE RECORDS SUMMARY | 2024-12-28 12:00 | XMS_ITS | Encounter Summary ---
Author Organization [employer] Address [address] [facility] 7t [place] [address] Care Team Providers Care Fitness Specialist Name Role Phone Umm Coley MD Primary Care Provider + Reason for Visit * Reason Onset Date Comments ED f/u call 12/26/2024 Encounter Details Date Type Department Care Team ([facility] st Contact Info) Description 12/26/2024 Telephone [facility] MEDICINE [address] [place], [place] [phone] Umm Coley MD [address] [place], [place] [phone] ED f/u call Social History Tobacco Use [...] Patient reports she is scheduled to [place] [facility] [place] 12[place]28 at 10:15am [facility] Patient is scheduled to see PCP tomorrow [...] AM EST Noted. TC placed to patient [phone] in regards to below message. Patient did [...] 03/08/2025 10:00 AM EDT Office Visit [facility] ADULT DENTAL [address] [place] [address] Mariangel Ruff [address] [place] [address] documented as of this encounter Visit Diagnoses Not on filedocumented in this encounter Additional Health Concerns Assessment Noted Time PHQ-9 Depression Total Score: 10 024 9:17 AM EDT documented as of this encounter Care Teams Fitness Specialist Relationship Specialty Start Date End Date Umm Coley MD [address] [place] [address] PCP - General Family Medicine 10/31/16 [facility] 11/14/24 documented as of this encounter
--- OUTSIDE RECORDS SUMMARY | 2024-12-28 12:00 | XMS_ITS | Clinical Summary ---
Author Organization [employer] Address [address] [place] [address] 7[address] [place] [address] Care Team Providers Care Telephone Station Installer Name Role Phone Shalonda Coley MD Primary [...] regarding medication management by current VNA services ([facility]). I asked her if she [...] continue f/u with mental health provider in [facility]. Dry eye 05/16/2024 Assessment & Plan [...] She was referred to vestibular therapy at [facility], information given to pt to schedule appointment [...] write a complaint to the landlord, building construction project administrator, and housing department. I gave them information about legal coordinator in the [place] court Will refer to health care sanitary technician to assist with housing due to poor conditions of current apartment Pt already has a letter from counselor, will FU at next appointment Household circumstance affecting care 02/03/2023 Assessment & Plan (12/11/2023 9:49 AM EST): Pt has depression and difficulty with memory. She has a STORE PRODUCT DEMONSTRATOR and a VNA to manage med, pharma education. VNA can go a few times per week once a POC has been discussed and taught to pt's caregivers Assessment & Plan (04/02/2023 2:38 PM EDT): Pt continues to live in the same apartment with anxiety from recent of her neighbor. Already in contact with [facility] and team is helping her with letters for housing Assessment & Plan (02/26/2023 1:12 PM EDT): Pt lives alone, I will advise to move out to a different apartment due to increased anxiety with household circumstance Refer to [facility] Assessment & Plan (02/03/2023 2:23 PM EDT): [...] EST): Pt seen psychotherapist and psychiatry at [facility], needs medication management due to Hx of SA and non-compliance. No change in medications, needs to continue medication administration by VNA and keep in a lock box, pharmical education, and prevention of hospital admissions. I will call [facility] gabriela at pt's request to transfer VNA services. Assessment & Plan (02/02/2024 3:44 PM EDT): - Medication list reconciled and discussed with patient, meds are to be administered by VNA due to memory issues, risk of poor compliance. - She will continue close follow up with [facility] Psych. I explained to patient that [...] Plan (02/26/2023 1:11 PM EDT): Pt seeing [facility] MH team every week. I counseled [...] we can organize the medications. Pt and STORE PRODUCT DEMONSTRATOR agreed with the plan of care. POC discussed with team nurse and campus supervisor. Assessment & Plan (04/28/2024 3:33 PM [...] (04/28/2024 5:25 PM EDT): Pt seen by [facility] clinician, continue psychotherapy every week. She [...] she needs pharmaco education. She's followed by [facility] psych. I told her and STORE PRODUCT DEMONSTRATOR she needs to bring all her med bottles so we can go over her meds until the new VNA service is restarted. Her STORE PRODUCT DEMONSTRATOR is helping her as well as her daughter With meds for now. Pt feels safe. Will send new Rx if needed with prescription in iranian so VNA can read it (one of the issues being that med rx were written in Georgian and the VNA that took over didn't understand the directions). Will check with VNA service to see what current situation is, pt wants to start using a new VNA service (the one her neighbor uses, [employer], [place] based) . Contusion of knee 02/16/2018 Motor [...] Plan (05/02/2024 5:56 PM EDT): -Followed by [facility] - last available consult note March [...] has to reschedule pharmacological stress test in [facility] dc amlodipine and flexeril and take Tylenol [...] Type Department Care Team Description 12/28/2024 Telephone [facility] MEDICINE [address] [facility] [place] [place] [address] Shalonda Coley MD Care Management ([id number] review) 12/27/2024 1:00 PM EST Office Visit [facility] [place] [address] Shalonda Coley MD Encounter for monitoring of patient compliance in drug treatment program (Primary Dx); Intercostal pain 12/27/2024 Travel 12/26/2024 Telephone [facility] MEDICINE [address] [place], [place] [address] [facility] [place] [place] [address] Shalonda Coley MD ED f/u call 12/26/[address] [address] Shalonda Coley MD Appointment Request 12/23/[address] [address] Shalonda Coley MD Chart prep 12/22/[address] [address] Shalonda Coley MD Appointment Request 12/20/[address] [place] [address] Shalonda Coley MD Call Back Request 12/13/[address] [address] Shalonda Coley MD PCP Contact (Med[employer] set up.) 12/09/2024 Travel 12/08/2024 12:15 PM EST Office [facility] [place] [address] Shalonda Coley MD Recurrent falls (Primary Dx); Neuropathy of both feet; Generalized anxiety disorder 12/08/2024 Telephone [facility] MEDICINE [address] [place] [address] Gisela Reynoso, RN VNA services 12/08/2024 Travel 12/08/[address] [address] Shalonda Coley MD FYI. 12/07/[address] [address] Juana Connor MA Chart prep 12/05/[address] [address] Shalonda Coley MD Appointment Request 11/29/2024 Orders Only [address] [address] Shalonda Coley MD 11/10/2024 12:15 PM EST Office Visit [address] [address] Shalonda Coley MD Generalized anxiety disorder (Primary Dx); Mild persistent asthmatic bronchitis without complication; Encounter for immunization 11/10/[address] [address] Gisela Reynoso, BEBA VNA agency switch 11/10/2024 Travel 11/09/[address] [address] Shalonda Coley MD Chart prep 10/24/[address] [address] Shalonda Coley MD Request For Order(s) 10/24/[address] [address] Shalonda Coley MD VNA Switch 10/14/2024 2:30 PM EST Office Visit [facility] ADULT DENTAL [address] [place] [address] Johnny Gonzalez, WILIAN Defective dental sikh (Primary Dx); Dental caries; History of root canal procedure 10/13/[address] [address] Shalonda Coley MD FYI 10/10/[address] [address] Shalonda Coley MD Stable Imaging Letter 09/27/[address] [address] Shalonda Coley MD Med Refill from Last [...] [facility] [address] [place] [address] Trino Ruffaris [address] [place] [address] Health Maintenance Due Date Last Done Comments [...] Routine 10/14/2024 2:30 PM EST Defective dental sikh Dental caries History of root canal procedure 12 DO RESIN-BASED COMPOSITE - 2 SURF, POSTERIOR Routine 10/14/2024 2:30 PM EST Dental caries 10 MIFL RESIN-BASED COMPOSITE - 4 OR MORE SURFACES (ANTERIOR) Routine 10/14/2024 2:30 PM EST Defective dental sikh 13 CORE BUILDUP, INCL ANY PINS WHEN [...] PM EST Narrative 12/27/2024 2:35 PM EST ?[place] [facility] ?[address] ?[place] [address] ?XRay Report ? Signed ? Patient: Ymles,Diana L ?MR#: [id number] ?? 8 ? : 1965 ?Acct:[id number] ? Age/Sex: 59 / F ?ADM Date: 12/27/24 ? Loc: HO.HHCX ? Attending Dr: Shalonda Coley MD ? Ordering Physician: Shalonda Coley MD ?? Date of Service: 12/27/24 ?? Procedure(s): XR ribs RT 2V ?? Accession Number(s): [id number] ? cc: Shalonda Coley MD ? EXAMINATION: [...] MD in OV> ?12/27/24 1433 ? DD/ 7036 ? TD/TT: 12/27/24 1424 ? Founder Ceo & President: ? Procedure Note Chin Diana - 12/27/[address] [address] XRay Report Signed Patient: Diana Myles LMR#: [id number] 8 : 1965Acct:[id number] Age/Sex: 59 / FADM Date: 12/27/24 Loc: HO.HHCX Attending Dr: Shalonda Coley MD Ordering Physician: Shalonda Coley MD Date of Service: 12/27/24 Procedure(s): XR ribs RT 2V Accession Number(s): [id number] cc: Shalonda Coley MD EXAMINATION: XR CHEST [...] 12/27/24 1433 DD/ 1356 TD/TT: 12/27/24 1424 Founder Ceo & President: Shalonda Coley MD IMG XR PROCEDURES Final Result * XR Chest 2 Views (12/27/2024 1:56 PM EST) Only the most recent of2 resultswithin the time period is included. Anatomical Region Laterality Modality Chest Radiographic Kyleigh ging 12/27/2024 1:56 PM EST Narrative 12/27/2024 2:36 PM EST ?[facility] ?[address] ?[place] [address] ?XRay Report ? Signed ? Patient: Myles,Diana L ?MR#: [id number] ?? 8 ? : 1965 ?Acct:[id number] ? Age/Sex: 59 / F ?ADM Date: 02/25/25 ? Loc: HO.HHCX ? Attending Dr: Shalonda Coley MD ? Ordering Physician: Shalonda Coley MD ?? Date of Service: 12/27/24 ?? Procedure(s): XR chest 2V ?? Accession Number(s): [id number] ? cc: Shalonda Coley MD ? EXAMINATION: [...] DD/ 1356 ? TD/TT: 12/27/24 1424 ? Founder Ceo & President: ? Procedure Note Adalgisa, Image - 12/27/[address] [address] XRay Report Signed Patient: Diana Myles LMR#: [id number] 8 : 1965Acct:[id number] Age/Sex: 59 / FADM Date: 12/27/24 Loc: HO.HHCX Attending Dr: Shalonda Coley MD Ordering Physician: Shalonda Coley MD Date of Service: 12/27/24 Procedure(s): XR chest 2V Accession Number(s): [id number] cc: Shalonda Coley MD EXAMINATION: XR CHEST [...] 12/27/24 1433 DD/ 1356 TD/TT: 12/27/24 1424 Founder Ceo & President: us Shalonda Coley MD IMG XR PROCEDURES Final Result * XR HAND WRIST RT (12/23/2024 6:57 PM EST) Only the most recent of2 resultswithin the time period is included. Anatomical Region Laterality Modality Abdomen Radiographic Kyleigh ging 12/23/2024 6:57 PM EST Narrative 12/23/2024 6:59 PM EST ? [facility] ?[address] ?[place] [address] ?XRay Report ? Signed ? Patient: Myles,Diana L ?MR#: [id number] ?? 8 ? : 1965 ?Acct:[id number] ? Age/Sex: 59 / F ?ADM Date: 12/23/24 ? Loc: HO.ED ? Attending Dr: ? Ordering Physician: Diomedes Shultz ?? Date of Service: 12/23/24 ?? Procedure(s): XR hand wrist RT ?? Accession Number(s): [id number] ? cc: Diomedes Shultz; Shalonda Coley MD [...] ? DD/ 56 ? TD/TT: 12/23/241856 ? Founder Ceo & President: ? Procedure Note Donlinda, Image - 12/23/2024 [place] [address] XRay Report Signed Patient: Diana Myles LMR#: [id number] 8 : 1965Acct:[id number] Age/Sex: 59 / FADM Date: 12/23/24 Loc: HO.ED Attending Dr: Ordering Physician: Diomedes Shultz Date of Service: 12/23/24 Procedure(s): XR hand wrist RT Accession Number(s): [id number] cc: Diomedes Shultz; Shalonda Coley MD CLINICAL [...] in OV> 12/23/241857 DD/ 56 TD/TT: 12/23/241856 Founder Ceo & President: [facility] External Provider IMG XR PROCEDURES Final Result * CT Head w/o Contrast (12/23/2024 4:42 PM EST) Anatomical Region Laterality Modality Head, Neck Computed Tomogra phy 12/23/2024 4:42 PM EST Narrative 12/23/2024 4:54 PM EST ? [facility] ?[address] ?[place], [place] [address] ? CT Scan Report ? Signed ? Patient: Myles,Diana L ?MR#: [id number] ?? 8 ? : 1965 ?Acct:[id number] ? Age/Sex: 59 / F ?ADM Date: 12/23/24 ? Loc: HO.ED ? Attending Dr: ? Ordering Physician: Diomedes Shultz ?? Date of Service: 12/23/24 ?? Procedure(s): CT head/brain wo IV con ?? Accession Number(s): [id number] ? cc: Diomedes Shultz; Shalonda Coley MD ? Report Number: ?? [id number]: Total DLP = ??821.00 mGy-cm ?? EXAMINATION: [...] DD/ 1642 ? TD/TT: 12/23/24 1642 ? Founder Ceo & President: ? Procedure Note Donjonathanclaudiater, Image - 12/23/[address] [place] [address] [address] Scan Report Signed Patient: Diana Myles LMR#: [id number] 8 : 1965Acct:[id number] Age/Sex: 59 / FADM Date: 12/23/24 Loc: HO.ED Attending Dr: Ordering Physician: Diomedes Shultz Date of Service: 12/23/24 Procedure(s): CT head/brain wo IV con Accession Number(s): [id number] cc: Diomedes Shultz; Shalonda Coley MD Report Number: [id number]: Total DLP = 821.00 mGy-cm EXAMINATION: CT [...] 12/23/24 1651 DD/ 1642 TD/TT: 12/23/24 1642 Founder Ceo & President: [facility] External Provider IMG CT PROCEDURES Final Result * CT Cervical Spine w/o Contrast (12/23/2024 3:29 PM EST) Anatomical Region Laterality Modality Spine, C-spine Computed Tomogra phy 12/23/2024 3:29 PM EST Narrative 12/23/2024 4:57 PM EST ? [facility] ?[address] ?[place] [address] ? CT Scan Report ? Signed ? Patient: Myles,Diana L ?MR#: [id number] ?? 8 ? : 1965 ?Acct:[id number] ? Age/Sex: 59 / F ?ADM Date: 02/21/25 ? Loc: HO.ED ? Attending Dr: ? Ordering Physician: Diomedes Shultz ?? Date of Service: 12/23/24 ?? Procedure(s): CT cervical spine wo IV con ?? Accession Number(s): [id number] ? cc: Diomedes Shultz; Shalonda Coley MD ? Report Number: ?? [id number]: Total DLP = ??821.00 mGy-cm ?? EXAMINATION: [...] DD/ 1529 ? TD/TT: 12/23/24 1642 ? Founder Ceo & President: ? Procedure Note Donotuseinterpreter, Image - 12/23/[address] [address] [address] Scan Report Signed Patient: Diana Myles LMR#: [id number] 8 : 1965Acct:[id number] Age/Sex: 59 / FADM Date: 12/23/24 Loc: HO.ED Attending Dr: Ordering Physician: Diomedes Shultz Date of Service: 12/23/24 Procedure(s): CT cervical spine wo IV con Accession Number(s): [id number] cc: Diomedes Shultz; Shalonda Coley MD Report Number: [id number]: Total DLP = 821.00 mGy-cm EXAMINATION: CT [...] 12/23/24 1654 DD/ 1529 TD/TT: 12/23/24 1642 Founder Ceo & President: [facility] External Provider IMG CT PROCEDURES Final Result * XR Shoulder 2+ Views Right (12/23/2024 3:09 PM EST) Anatomical Region Laterality Modality Upper Extremities, Shoulder Right Radi ographic Imaging 12/23/2024 3:09 PM EST Narrative 12/23/2024 3:43 PM EST ? [facility] ?[address] ?[place] [address] ?XRay Report ? Signed ? Patient: Myles,Diana L ?MR#: [id number] ?? 8 ? : 1965 ?Acct:[id number] ? Age/Sex: 59 / F ?ADM Date: 12/23/24 ? Loc: HO.ED ? Attending Dr: ? Ordering Physician: Diomedes Shultz ?? Date of Service: 12/23/24 ?? Procedure(s): XR shoulder RT min 2V ?? Accession Number(s): [id number] ? cc: Diomedes Shultz; Shalonda Coley MD [...] DD/ 1509 ? TD/TT: 12/23/24 1533 ? Founder Ceo & President: ? Procedure Note Donjonathanjose antonio, Image - 12/23/[address] [address] XRay Report Signed Patient: Diana Myles LMR#: [id number] 8 : 1965Acct:[id number] Age/Sex: 59 / FADM Date: 12/23/24 Loc: HO.ED Attending Dr: Ordering Physician: Diomedes Shultz Date of Service: 12/23/24 Procedure(s): XR shoulder RT min 2V Accession Number(s): [id number] cc: Diomedes Shultz; Shalonda Coley MD EXAMINATION: [...] MD 12/23/2024 03:40 PM EST Dictated By: Stveen Gan MD Signed By: <Electronically signed by Steven Gary MDin OV> 12/23/24 1540 DD/ 1509 TD/TT: 12/23/24 1533 Founder Ceo & President: us [facility] External Provider IMG XR PROCEDURES Final Result * XR Hips Bilateral with Pelvis 1 view (12/23/2024 2:57 PM EST) Anatomical Region Laterality Modality Lower Extremities, Hip Bilateral Radiograp hic Imaging 12/23/2024 2:57 PM EST Narrative 12/23/2024 3:45 PM EST ? [facility] ?[address] ?[place] [address] ?XRay Report ? Signed ? Patient: Myles,Diana L ?MR#: [id number] ?? 8 ? : 1965 ?Acct:[id number] ? Age/Sex: 59 / F ?ADM Date: 12/23/24 ? Loc: HO.ED ? Attending Dr: ? Ordering Physician: Diomedes Shultz ?? Date of Service: 12/23/24 ?? Procedure(s): XR hip BI w PEL1V ?? Accession Number(s): [id number] ? cc: Diomedes Shultz; Shalonda Coley MD [...] DD/ 1457 ? TD/TT: 12/23/24 1533 ? Founder Ceo & President: ? Procedure Note Chin Diana - 12/23/[address] [address] XRay Report Signed Patient: Diana Myles LMR#: [id number] 8 : 1965Acct:[id number] Age/Sex: 59 / FADM Date: 12/23/24 Loc: HO.ED Attending Dr: Ordering Physician: Diomedes Shultz Date of Service: 12/23/24 Procedure(s): XR hip BI w PEL1V Accession Number(s): [id number] cc: Diomedes Shultz; Shalonda Coley MD EXAMINATION: [...] 12/23/24 1543 DD/ 1457 TD/TT: 12/23/24 1533 Founder Ceo & President: [facility] External Provider IMG XR PROCEDURES Final Result * XR Knee 4+ Views Right (12/23/2024 2:57 PM EST) Anatomical Region Laterality Modality Lower Extremities, Knee Right Radiogra phic Imaging 12/23/2024 2:57 PM EST Narrative 12/23/2024 3:44 PM EST ? [facility] ?[address] ?[place] [address] ?XRay Report ? Signed ? Patient: Myles,Diana L ?MR#: [id number] ?? 8 ? : 1965 ?Acct:[id number] ? Age/Sex: 59 / F ?ADM Date: 12/23/ ? Loc: HO.ED ? Attending Dr: ? Ordering Physician: Diomedes Shultz ?? Date of Service: 12/23/24 ?? Procedure(s): XR knee RT 4V ?? Accession Number(s): [id number] ? cc: Diomedes Shultz; Shalonda Coley MD [...] DD/ 1457 ? TD/TT: 12/23/24 1533 ? Founder Ceo & President: ? Procedure Note Howardkatelynjadenclaudiater, Image - 12/23/2024 [place] [address] XRay Report Signed Patient: Diana Myles LMR#: [id number] 8 : 1965Acct:[id number] Age/Sex: 59 / FADM Date: 12/23/24 Loc: HO.ED Attending Dr: Ordering Physician: Diomedes Shultz Date of Service: 12/23/24 Procedure(s): XR knee RT 4V Accession Number(s): [id number] cc: Diomedes Shultz; Shalonda Coley MD EXAMINATION: [...] 12/23/24 1541 DD/ 1457 TD/TT: 12/23/24 1533 Founder Ceo & President: us [facility] External Provider IMG XR PROCEDURES Final Result * MR Knee w/o Contrast Left (12/06/2024 6:06 PM EST) Anatomical Region Laterality Modality Magnetic Resonan ce 12/06/2024 6:06 PM EST Narrative 12/08/2024 8:31 AM EST ? [facility] ?[address] ?[place] [address] ? Magnetic Resonance Report ? Signed ? Patient: Myles,Diana L ?MR#: [id number] ?? 8 ? : 1965 ?Acct:[id number] ? Age/Sex: 59 / F ?ADM Date: 12/06/24 ? Loc: HO.MRI ? Attending Dr: Denilson Forman PA-C ? Ordering Physician: Denilson Forman PA-C ?? Date of Service: 12/06/24 ?? Procedure(s): MR knee LT wo con ?? Accession Number(s): [id number] ? cc: Shalonda Coley MD; Denilson Forman [...] ??12/08/2024 08:29 AM EST RP ?? Workstation: [id number] ? Dictated By: ?Mathieu Lepe MD ? Signed By: ?<Electronically signed by Mathieu Lepe MD in OV> ?12/08/24 0829 ? DD/ 180 ? TD/TT: 12/06/24 181 ? Founder Ceo & President: ? Procedure Note Chin Diana - 12/08/[address] [address] Magnetic Resonance Report Signed Patient: Diana Myles LMR#: [id number] 8 : 1965Acct:[id number] Age/Sex: 59 / FADM Date: 12/06/24 Loc: HO.MRI Attending Dr: Denilson Forman PA-C Ordering Physician: Denilson Forman PA-C Date of Service: 12/06/24 Procedure(s): MR knee LT wo con Accession Number(s): [id number] cc: Shalonda Coley MD; Denilson Forman PA-C [...] 12/08/24 0829 DD/ 180 TD/TT: 12/06/24 181 Founder Ceo & President: [facility] External Provider IMG MRI PROCEDURES Final Result * BI Mammogram Screening Tomosynthesis Bilateral (11/29/2024 8:45 AM EST) Anatomical Region Laterality Modality Breast Bilateral Mammography 11/29/2024 8:45 AM EST Narrative 12/07/2024 3:35 PM EST ? [facility] ? [address] ?[place] [address] ? Mammography Report ? Signed ? Patient: Myles,Diana L ?MR#: [id number] ?? 8 ? : 1965 ?Acct:[id number] ? Age/Sex: 59 / F ?ADM Date: /28/25 ? Loc: HO.MAMMO ? Attending Dr: Shalonda Coley MD ? Ordering Physician: Shalonda Coley MD ?Results: 2Be ?? nign Findings ? Date of Service: 11/29/24 ?Follow Up: 1 Year From Orig ?? inal Mammogram ? Procedure(s): MM tomosynthesis screening BI ?? Accession Number(s): [id number] ? cc: Shalonda Coley MD ? EXAMINATION: [...] DD/ 0845 ? TD/TT: 11/29/24 0915 ? Founder Ceo & President: ? Procedure Note Donotuseinterpreter, Image - 12/07/2024 [place] [facility] [address] [place] [address] Mammography Report Signed Patient: Diana Myles LMR#: [id number] 8 : 1965Acct:[id number] Age/Sex: 59 / FADM Date: 11/29/24 Loc: HO.MAMMO Attending Dr: Shalonda Coley MD Ordering Physician: Shalonda Coley MDResults: 2Be nign Findings Date of Service: 11/29/24Follow Up: 1 Year From Orig inal Mammogram Procedure(s): MM tomosynthesis screening BI Accession Number(s): [id number] cc: Shalonda Coley MD EXAMINATION: MM SCREENING [...] by: Chaparrita Lyn DO 12/07/2024 03:32 PM [facility] Dictated By: Chaparrita Lyn DO Signed By: <Electronically signed by Chaparrita Lyn DO in OV> 12/07/24 1532 DD/ 0845 TD/TT: 11/29/24 0915 Founder Ceo & President: Shalonda Coley MD IMG BI PROCEDURES Edited Result - Final * POCT Rapid RSV ROJAS ID NOW (11/10/2024 2:01 PM EST) [facility] RSV Rapid Ag POC Negative Negative Swab 11/10/2024 2:01 PM EST Shalonda Coley MD POINT OF CARE TEST ENTER /EDIT ORDERABLES Final Result * POCT Rapid Influenza B ROJAS ID NOW (11/10/2024 2:01 PM EST) [facility] Influenza B Negative Negative, Indeterminate [facility] Swab 11/10/2024 2:01 PM EST Shalonda Coley MD POINT OF CARE TEST ENTER /EDIT ORDERABLES Final Result Performing Organization Address [facility] Co de Phone Number [facility] [address] [place] [phone] * POCT Rapid Influenza A ROJAS ID NOW (11/10/2024 2:01 PM EST) [facility] Influenza A Negative Negative, Indeterminate [facility] Swab 11/10/2024 2:01 PM EST Shalonda Coley MD POINT OF CARE TEST ENTER /EDIT ORDERABLES Final Result Performing Organization Address [facility] Co de Phone Number [facility] [address] [place] [phone] * POCT Rapid Covid-19 BinaxNOW (11/10/2024 2:01 PM EST) [facility] Rapid COVID Ag Negative Swab 11/10/2024 2:01 PM EST Shalonda Coley MD POINT OF CARE TEST ENTER /EDIT ORDERABLES Final Result * (ABNORMAL) Hm Colonoscopy (07/30/2023) Colonoscopy Abnormal( A) Normal [facility] Comment:SSL polyp Shalonda Coley MD HEALTH MAINTENANCE Final Result [facility] [address] [place] [address] [phone] * Thinprep PAP and HPV nRNA E6/E7 (10/08/2022 9:30 AM EST) Clinical Information: None given [facility] LMP: NONE GIVEN COM DEVt Prev. PAP: NONE GIVEN [facility] Prev. BX: NONE GIVEN [facility] SOURCE: None given COM DEVt Statement Of Adequacy: SATISFACTORY FOR EVALUATION Age and/or menstrual status not provided SHADOW Interpretation/Re sult: COM DEVt Comment: Negative for intraepithelial lesion or malignancy. Atrophic pattern; predominantly parabasal cells Unemployment Insurance Director: [employer] Comment: DMM, CT(ASCP) CT screening location: [address] ??[phone] Review Unemployment Insurance Director: COM DEVt Comment: MAA, CT(ASCP) CT screening location: [address] ??[phone] (Always Message) Que [employer] Comment: EXPLANATORY NOTE: The Pap is a [...] HPV nRNA E6/E7 Not Detected Not Detected COM DEVt Comment: Methodology: Musical Instrument Supervisor-Mediated Amplification This assay detects E6/E7 viral messenger RNA (mRNA) from 14 high-risk HPV types (16,18,31,33,35,39,45,51,52,56,58,59,66,68). Cervical sources are required for HPV testing. If a vaginal source from a patient who has had a total hysterectomy with removal of cervix was submitted, please contact the testing laboratory for alternative testing options. For additional information, please refer to http://education.ContentRealtime/faq/BQE559d5 (This link if provided for information/ educational purposes only.) 10/08/2022 9:30 AM EST 10/10/2022 1:07 AM EST Narrative [facility] - 10/14/2022 7:08 PM EST FASTING: UNKNOWN Shauna Matamoros [facility] PATHOLOGY ORDERABLES Final Result [facility] [address], [place] [address] [employer] [facility] [address], [facility] [place] [address] * HIV AB/AG (04/30/2022 11:28 AM EDT) Pathologist [facility] HIV AB/AG Nonreactive Nonreactive [facility] Comment: HIV-1 p24 Ag and/or [...] detection of this assay. ?? [employer] HIV Ag/Ab Combo assay result and supplemental assay results should be interpreted in conjunction with the patient's clinical presentation, history and other laboratory results. ??If the results are inconsistent with clinical evidence, additional testing is suggested to confirm the result. Hepatitis B Surface Antibody REACTIVE Nonreactive [facility] Comment:REACTIVE: > 11.99 mI U/mL Hepatitis B Surface Antigen Negative Negative [facility] Hepatitis B Core Antibody Nonreactive Nonreactive [facility] 04/30/2022 11:2 8 AM EDT us Shalonda Coley MD HISTORICAL/NON ORDERABLE LABS Final Result [facility] [address] from Last 3 Months or Most Recently Relevant to Health Maintenance Insurance [facility] MEDICAID STAND ADULT Care Teams Telephone Station Installer Relationship Specialty Start Date End Date Shalonda Coley MD [address] [place] [address] PCP - General Family Medicine 10/31/16 [facility] 11/14/24
--- OUTSIDE RECORDS SUMMARY | 2024-12-28 12:01 | XMS_ITS | Encounter Summary ---
Author Organization [employer] Address 75 [facility] 7t [place] [address] Care Team Providers Care Mental Health Associate Name Role Phone Umm Coley MD Primary Care Provider + Encounter Details Date Type Department Care Team (Late st Contact Info) Description 11/29/2024 Orders Only [facility] MEDICINE [address] [place], [place] [phone] Umm Coley MD [address] [place], [place] [phone] Social History Tobacco Use Types Packs/Day Years [...] [facility] ADULT DENTAL [address] [place] [address] Elzbieta, Mariangel [address] [place] [address] documented as of this encounter Procedures Procedure [...] EST Narrative 12/23/2024 6:59 PM EST ? [facility] ?[address] ?[place] [address] ?XRay Report ? Signed ? Patient: Myles,Diana L ?MR#: [id number] ?? 8 ? : 1965 ?Acct:[id number] ? Age/Sex: 59 / F ?ADM Date: 12/23/24 ? Loc: HO.ED ? Attending Dr: ? Ordering Physician: Diomedes Shultz ?? Date of Service: 12/23/24 ?? Procedure(s): XR hand wrist RT ?? Accession Number(s): [id number] ? cc: Diomedes Shultz; Umm Coley MD [...] DD/ 1857 ? TD/TT: 12/23/24 1857 ? Racecar Driver: ? Procedure Note Adalgisa, Image - 12/23/[address] [address] XRay Report Signed Patient: Diana Myles LMR#: [id number] 8 : 1965Acct:[id number] Age/Sex: 59 / FADM Date: 12/23/24 Loc: HO.ED Attending Dr: Ordering Physician: Diomedes Shultz Date of Service: 12/23/24 Procedure(s): XR hand wrist RT Accession Number(s): [id number] cc: Diomedes Shultz; Umm Coley MD CLINICAL [...] in OV> 12/23/241857 DD/ 56 TD/TT: 12/23/241856 Racecar Driver: [facility] External Provider IMG XR PROCEDURES Final Result * CT Head w/o Contrast (12/23/2024 4:42 PM EST) Anatomical Region Laterality Modality Head, Neck Computed Tomogra phy 12/23/2024 4:42 PM EST Narrative 12/23/2024 4:54 PM EST ? [facility] ?[address] ?[place] [address] ? CT Scan Report ? Signed ? Patient: Myles,Diana L ?MR#: [id number] ?? 8 ? : 1965 ?Acct:[id number] ? Age/Sex: 59 / F ?ADM Date: 02/21/25 ? Loc: HO.ED ? Attending Dr: ? Ordering Physician: Diomedes Shultz ?? Date of Service: 12/23/24 ?? Procedure(s): CT head/brain wo IV con ?? Accession Number(s): [id number] ? cc: Diomedes Shultz; Umm Coley MD ? Report Number: ?? [id number]: Total DLP = ??821.00 mGy-cm ?? EXAMINATION: [...] DD/ 1642 ? TD/TT: 12/23/24 1642 ? Racecar Driver: ? Procedure Note Donotuseinterpreter, Image - 12/23/[address] [place] [address] [address] Scan Report Signed Patient: Diana Myles LMR#: [id number] 8 : 1965Acct:[id number] Age/Sex: 59 / FADM Date: 12/23/24 Loc: HO.ED Attending Dr: Ordering Physician: Diomedes Shultz Date of Service: 12/23/24 Procedure(s): CT head/brain wo IV con Accession Number(s): [id number] cc: Diomedes Shultz; Umm Coley MD Report Number: [id number]: Total DLP = 821.00 mGy-cm EXAMINATION: CT [...] 12/23/24 1651 DD/ 1642 TD/TT: 12/23/24 1642 Racecar Driver: [facility] External Provider IMG CT PROCEDURES Final Result * CT Cervical Spine w/o Contrast (12/23/2024 3:29 PM EST) Anatomical Region Laterality Modality Spine, C-spine Computed Tomogra phy 12/23/2024 3:29 PM EST Narrative 12/23/2024 4:57 PM EST ? [facility] ?[address] ?[place] [address] ? CT Scan Report ? Signed ? Patient: Diana Myles L ?MR#: [id number] ?? 8 ? : 1965 ?Acct:[id number] ? Age/Sex: 59 / F ?ADM Date: 12/23/24 ? Loc: HO.ED ? Attending Dr: ? Ordering Physician: Diomedes Shultz ?? Date of Service: 12/23/24 ?? Procedure(s): CT cervical spine wo IV con ?? Accession Number(s): [id number] ? cc: Diomedes Shultz; Umm Coley MD ? Report Number: ?? [id number]: Total DLP = ??821.00 mGy-cm ?? EXAMINATION: [...] ??12/23/2024 04:54 PM EST RP ?? Workstation: [id number] ? Dictated By: ?Mathieu Lepe MD ? Signed By: ?<Electronically signed by Mathieu Lepe MD in OV> ?12/23/24 1654 ? DD/ 1529 ? TD/TT: 12/23/24 1642 ? Racecar Driver: ? Procedure Note Chin Diana - 12/23/[address] [place] [address] [address] Scan Report Signed Patient: Diana Myles LMR#: [id number] 8 : 1965Acct:[id number] Age/Sex: 59 / FADM Date: 12/23/24 Loc: HO.ED Attending Dr: Ordering Physician: Diomedes Shultz Date of Service: 12/23/24 Procedure(s): CT cervical spine wo IV con Accession Number(s): [id number] cc: Diomedes Shultz; Umm Coley MD Report Number: [id number]: Total DLP = 821.00 mGy-cm EXAMINATION: CT [...] 12/23/24 1654 DD/ 1529 TD/TT: 12/23/24 1642 Racecar Driver: [facility] External Provider IMG CT PROCEDURES Final Result * XR Shoulder 2+ Views Right (12/23/2024 3:09 PM EST) Anatomical Region Laterality Modality Upper Extremities, Shoulder Right Radi ographic Imaging 12/23/2024 3:09 PM EST Narrative 12/23/2024 3:43 PM EST ? [facility] ?[address] ?[place] [address] ?XRay Report ? Signed ? Patient: Myles,Diana L ?MR#: [id number] ?? 8 ? : 1965 ?Acct:[id number] ? Age/Sex: 59 / F ?ADM Date: 12/23/24 ? Loc: HO.ED ? Attending Dr: ? Ordering Physician: Diomedes Shultz ?? Date of Service: 12/23/24 ?? Procedure(s): XR shoulder RT min 2V ?? Accession Number(s): [id number] ? cc: Diomedes Shultz; Umm Coley MD [...] DD/ 1509 ? TD/TT: 12/23/24 1533 ? Racecar Driver: ? Procedure Note Chin Diana - 12/23/[address] [address] XRay Report Signed Patient: Diana Myles LMR#: [id number] 8 : 1965Acct:[id number] Age/Sex: 59 / FADM Date: 12/23/24 Loc: HO.ED Attending Dr: Ordering Physician: Diomedes Shultz Date of Service: 12/23/24 Procedure(s): XR shoulder RT min 2V Accession Number(s): [id number] cc: Diomedes Shultz; Umm Coley MD EXAMINATION: [...] 12/23/24 1540 DD/ 1509 TD/TT: 12/23/24 1533 Racecar Driver: [facility] External Provider IMG XR PROCEDURES Final Result * XR HAND WRIST RT (12/23/2024 2:57 PM EST) Anatomical Region Laterality Modality Abdomen Radiographic Kyleigh ging 12/23/2024 2:57 PM EST Narrative 12/23/2024 3:49 PM EST ? [facility] ?[address] ?[place] [address] ?XRay Report ? Signed ? Patient: Myles,Diana L ?MR#: [id number] ?? 8 ? : 1965 ?Acct:[id number] ? Age/Sex: 59 / F ?ADM Date: 12/23/24 ? Loc: HO.ED ? Attending Dr: ? Ordering Physician: Diomedes Shultz ?? Date of Service: 12/23/24 ?? Procedure(s): XR hand wrist RT ?? Accession Number(s): [id number] ? cc: Diomedes Shultz; Umm Coley MD [...] DD/ 1457 ? TD/TT: 12/23/24 1533 ? Racecar Driver: ? Procedure Note Donmiguelter, Image - 12/23/2024 [place] [address] XRay Report Signed Patient: Diana Myles LMR#: [id number] 8 : 1965Acct:[id number] Age/Sex: 59 / FADM Date: 12/23/24 Loc: HO.ED Attending Dr: Ordering Physician: Diomedes Shultz Date of Service: 12/23/24 Procedure(s): XR hand wrist RT Accession Number(s): [id number] cc: Diomedes Shultz; Umm Coley MD EXAMINATION: [...] 12/23/24 1546 DD/ 1457 TD/TT: 12/23/24 1533 Racecar Driver: [facility] External Provider IMG XR PROCEDURES Final Result * XR Hips Bilateral with Pelvis 1 view (12/23/2024 2:57 PM EST) Anatomical Region Laterality Modality Lower Extremities, Hip Bilateral Radiograp hic Imaging 12/23/2024 2:57 PM EST Narrative 12/23/2024 3:45 PM EST ? [facility] ?[address] ?[place] [address] ?XRay Report ? Signed ? Patient: Myles,Diana L ?MR#: [id number] ?? 8 ? : 1965 ?Acct:[id number] ? Age/Sex: 59 / F ?ADM Date: 12/23/24 ? Loc: HO.ED ? Attending Dr: ? Ordering Physician: Diomedes Shultz ?? Date of Service: 12/23/24 ?? Procedure(s): XR hip BI w PEL1V ?? Accession Number(s): [id number] ? cc: Diomedes Shultz; Umm Coley MD [...] DD/ 1457 ? TD/TT: 12/23/24 1533 ? Racecar Driver: ? Procedure Note Donotuseinterpreter, Image - 12/23/[address] [address] XRay Report Signed Patient: Diana Myles LMR#: [id number] 8 : 1965Acct:[id number] Age/Sex: 59 / FADM Date: 12/23/24 Loc: HO.ED Attending Dr: Ordering Physician: Diomedes Shultz Date of Service: 12/23/24 Procedure(s): XR hip BI w PEL1V Accession Number(s): [id number] cc: Diomedes Shultz; Umm Coley MD EXAMINATION: [...] 12/23/24 1543 DD/ 1457 TD/TT: 12/23/24 1533 Racecar Driver: us [facility] External Provider IMG XR PROCEDURES Final Result * XR Knee 4+ Views Right (12/23/2024 2:57 PM EST) Anatomical Region Laterality Modality Lower Extremities, Knee Right Radiogra phic Imaging 12/23/2024 2:57 PM EST Narrative 12/23/2024 3:44 PM EST ? [facility] ?[address] ?[place] [address] ?XRay Report ? Signed ? Patient: Myles,Diana L ?MR#: [id number] ?? 8 ? : 1965 ?Acct:[id number] ? Age/Sex: 59 / F ?ADM Date: 12/23/24 ? Loc: HO.ED ? Attending Dr: ? Ordering Physician: Diomedes Shultz ?? Date of Service: 12/23/24 ?? Procedure(s): XR knee RT 4V ?? Accession Number(s): [id number] ? cc: Diomedes Shultz; Umm Coley MD [...] DD/ 1457 ? TD/TT: 12/23/24 1533 ? Racecar Driver: ? Procedure Note Chin Diana - 12/23/[address] [address] XRay Report Signed Patient: Diana Myles LMR#: [id number] 8 : 1965Acct:[id number] Age/Sex: 59 / FADM Date: 12/23/24 Loc: HO.ED Attending Dr: Ordering Physician: Diomedes Shultz Date of Service: 12/23/24 Procedure(s): XR knee RT 4V Accession Number(s): [id number] cc: Diomedes Shultz; Umm Coley MD EXAMINATION: [...] 12/23/24 1541 DD/ 1457 TD/TT: 12/23/24 1533 Racecar Driver: [facility] External Provider IMG XR PROCEDURES Final Result * XR Chest 2 Views (12/13/2024 9:33 AM EST) Anatomical Region Laterality Modality Chest Radiographic Kyleigh ging 12/13/2024 9:33 AM EST Narrative 12/13/2024 10:06 AM EST ? [facility] ?[address] ?[place] [address] ?XRay Report ? Signed ? Patient: Diana Myles ?MR#: [id number] ?? 8 ? : 1965 ?Acct:[id number] ? Age/Sex: 59 / F ?ADM Date: 12/13/24 ? Loc: HO.XRAY ? Attending Dr: Anthony Curtis MD ? Ordering Physician: Anthony Curtis MD ?? Date of Service: 12/13/24 ?? Procedure(s): XR chest 2V ?? Accession Number(s): [id number] ? cc: Umm Coley MD; Anthony Curtis [...] ? DD/ ? TD/TT: 12/13/24 0948 ? Racecar Driver: ? Procedure Note Donotjadeninterpreter, Image - 12/13/2024 [place] [address] XRay Report Signed Patient: Diana Myles LMR#: [id number] 8 : 1965Acct:[id number] Age/Sex: 59 / FADM Date: 12/13/24 Loc: HO.ALIYA Attending Dr: Anthony Curtis MD Ordering Physician: Anthony Curtis MD Date of Service: 12/13/24 Procedure(s): XR chest 2V Accession Number(s): [id number] cc: Umm Coley MD; Anthony Curtis MD [...] OV> 12/13/24 1004 DD/ 2 TD/TT: 12/13/2448 Racecar Driver: us [facility] External Provider IMG XR PROCEDURES Final Result * MR Knee w/o Contrast Left (12/06/2024 6:06 PM EST) Anatomical Region Laterality Modality Magnetic Resonan ce 12/06/2024 6:06 PM EST Narrative 12/08/2024 8:31 AM EST ? [facility] ?[address] ?[place] [address] ? Magnetic Resonance Report ? Signed ? Patient: Myles,Diaan L ?MR#: [id number] ?? 8 ? : 1965 ?Acct:[id number] ? Age/Sex: 59 / F ?ADM Date: 12/06/24 ? Loc: HO.MRI ? Attending Dr: Denilson Forman PA-C ? Ordering Physician: Denilson Forman PA-C ?? Date of Service: 12/06/24 ?? Procedure(s): MR knee LT wo con ?? Accession Number(s): [id number] ? cc: Umm Coley MD; Denilson Forman [...] ??12/08/2024 08:29 AM EST RP ?? Workstation: [id number] ? Dictated By: ?Mathieu Lepe MD ? Signed By: ?<Electronically signed by Mathieu Lepe MD in OV> ?12/08/[address] ? DD/ 1806 ? TD/TT: 12/06/24 181 ? Racecar Driver: ? Procedure Note Chin Diana - 12/08/[address] [address] Magnetic Resonance Report Signed Patient: Diana Myles LMR#: [id number] 8 : 1965Acct:[id number] Age/Sex: 59 / FADM Date: 12/06/24 Loc: HO.MRI Attending Dr: Denilson Forman PA-C Ordering Physician: Denilson Forman PA-C Date of Service: 12/06/24 Procedure(s): MR knee LT wo con Accession Number(s): [id number] cc: Umm Coley MD; Denilson Forman PA-C [...] 12/08/24 0829 DD/ 180 TD/TT: 12/06/24 181 Racecar Driver: [facility] External Provider IMG MRI PROCEDURES Final Result * BI Mammogram Screening Tomosynthesis Bilateral (11/29/2024 8:45 AM EST) Anatomical Region Laterality Modality Breast Bilateral Mammography 11/29/2024 8:45 AM EST Narrative 12/07/2024 3:35 PM EST ? [facility] ? [address] ?[place] [address] ? Mammography Report ? Signed ? Patient: Myles,Diana L ?MR#: [id number] ?? 8 ? : 1965 ?Acct:[id number] ? Age/Sex: 59 / F ?ADM Date: 01/28/25 ? Loc: HO.MAMMO ? Attending Dr: Umm Coley MD ? Ordering Physician: Umm Coley MD ?Results: 2Be ?? nign Findings ? Date of Service: 11/29/24 ?Follow Up: 1 Year From Orig ?? inal Mammogram ? Procedure(s): MM tomosynthesis screening BI ?? Accession Number(s): [id number] ? cc: Umm Coley MD ? EXAMINATION: [...] DD/ 0845 ? TD/TT: 11/29/24 0915 ? Racecar Driver: ? Procedure Note Donotuseinterpreter, Image - 12/07/2024 [facility] [address] [place], [place] [address] Mammography Report Signed Patient: Diana Myles LMR#: [id number] 8 : 1965Acct:[id number] Age/Sex: 59 / FADM Date: 11/29/24 Loc: HO.MAMMO Attending Dr: Umm Coley MD Ordering Physician: Umm Coley MDResults: 2Be nign Findings Date of Service: 11/29/24Follow Up: 1 Year From Orig ina Mammogram Procedure(s): MM tomosynthesis screening BI Accession Number(s): [id number] cc: Umm Coley MD EXAMINATION: MM SCREENING [...] 12/07/24 1532 DD/ 0845 TD/TT: 11/29/24 0915 Racecar Driver: Umm Coley MD IMG BI PROCEDURES Edited Result - Final documented in this encounter Visit Diagnoses Not on filedocumented in this encounter Additional Health Concerns Assessment Noted Time PHQ-9 Depression Total Score: 10 024 9:17 AM EDT documented as of this encounter Care Teams Mental Health Associate Relationship Specialty Start Date End Date Umm Coley MD [address] [place] [address] PCP - General Family Medicine 10/31/16 [facility] 11/14/24 documented as of this encounter
--- OUTSIDE RECORDS SUMMARY | 2024-12-28 12:01 | XMS_ITS | Encounter Summary ---
Author Organization [employer] Address 75 [facility] 7t [place] [address] Care Team Providers Care Education Dean Name Role Phone Umm Coley MD Primary Care Provider + Reason for Visit * Reason Comments Med Change Request Encounter Details Date Type Department Care Team ([facility] Contact Info) Description 03/20/2023 Refill [facility] ADULT DENTAL [address] [place] [address] Johnny Gonzalez DMD [address] [place] [address] Social History Tobacco Use Types Packs/Day Years [...] [facility] ADULT DENTAL [address] [place], [place] [phone] Mariangel Ruff [address] [place], [place] [phone] documented as of this encounter Visit Diagnoses Not on filedocumented in this encounter Care Teams Education Dean Relationship Specialty Start Date End Date Umm Coley MD [address] [place], [place] [phone] PCP - General Family Medicine 10/31/16 Eva Nunez Refrigerator Assembler 04/05/24 07/06/24 [facility] 05/11/24 11/17/24 [facility] 11/14/24 documented as of this encounter
--- OUTSIDE RECORDS SUMMARY | 2024-12-28 12:01 | XMS_ITS | Encounter Summary ---
Author Organization [employer] Address [address] [facility] 7t [place] [address] Care Team Providers Care Kettle Coordinator Name Role Phone Umm Coley MD Primary Care Provider + Reason for Visit * Reason Comments Med Refill Encounter Details Date Type Department Care Team (Late Contact Info) Description 05/21/2023 Refill [facility] [address] [place], [place] [phone] Umm Coley MD [address] [place] [address] Arthritis of knee Social History Tobacco Use [...] Description 03/08/2025 10:00 AM EDT Office Visit [facility] ADULT DENTAL [address] [place] [address] Mariangel Ruff [address] [place] [address] documented as of this encounter Visit Diagnoses Diagnosis Arthritis of knee Unspecified arthropathy, lower leg documented in this encounter Additional Health Concerns Assessment Noted Time PHQ-9 Depression Total Score: 12 023 1:58 PM EDT documented as of this encounter Care Teams Kettle Coordinator Relationship Specialty Start Date End Date Umm Coley MD [address] [place] [address] PCP - General Family Medicine 10/31/16 Eva Nunez Sales Administration Specialist 04/05/24 07/06/24 [facility] 05/11/24 11/17/24 [facility] 11/14/24 documented as of this encounter
--- OUTSIDE RECORDS SUMMARY | 2024-12-28 12:01 | XMS_ITS | Encounter Summary ---
Author Organization [employer] Address 75 [facility] 7t [place] [address] Care Team Providers Care Manager Web Name Role Phone Umm Coley MD Primary Care Provider + Encounter Details Date Type Department Care Team (Late st Contact Info) Description 08/23/2024 Orders Only [facility] ADULT DENTAL [address] [place], [place] [phone] Johnny Gonzaelz, DMD [address] [place], [place] [phone] Social History Tobacco Use Types Packs/Day Years [...] Visit [facility] ADULT DENTAL [address] [place] [address] ElzbietaMariangel [address] [place] [address] documented as of this encounter Visit Diagnoses Not on filedocumented in this encounter Additional Health Concerns Assessment Noted Time PHQ-9 Depression Total Score: 10 024 9:17 AM EDT documented as of this encounter Care Teams Manager Web Relationship Specialty Start Date End Date Umm Coley MD [address] [place] [address] PCP - General Family Medicine 10/31/16 [facility] 05/11/24 11/17/24 [facility] 11/14/24 documented as of this encounter
--- OUTSIDE RECORDS SUMMARY | 2024-12-28 12:01 | XMS_ITS | Encounter Summary ---
Author Organization [employer] [facility] Address [address] [place] [address] 7t [place] [address] Care Team Providers Care Dragsaw Operator Name Role Phone Umm Coley MD Primary Care Provider + Reason for Visit * Reason Comments Med Refill Encounter Details Date Type Department Care Team (Late st Contact Info) Description 08/01/2023 Refill [facility] MED[facility]INE [address] [place], [place] [phone] Umm Coley MD [address] [place], [place] [phone] Social History Tobacco Use Types Packs/Day Years [...] [facility] ADULT DENTAL [address] [place], [place] [phone] Mariangel Ruff [address] [place] [address] documented as of this encounter Visit Diagnoses Not on filedocumented in this encounter Additional Health Concerns Assessment Noted Time PHQ-9 Depression Total Score: 12 023 1:58 PM EDT documented as of this encounter Care Teams Dragsaw Operator Relationship Specialty Start Date End Date Umm Coley MD [address] [place] [address] PCP - General Family Medicine 10/31/16 Eva Nunez Filament Coil Winder 04/05/24 07/06/24 [facility] 05/11/24 11/17/24 [facility] 11/14/24 documented as of this encounter
--- OUTSIDE RECORDS SUMMARY | 2024-12-28 12:01 | XMS_ITS | Encounter Summary ---
Author Organization [employer] Address 75 [facility] 7t [place] [address] Care Team Providers Care Commissions Specialist Name Role Phone Umm Coley MD Primary Care Provider + Encounter Details Date Type Department Care Team (Late st Contact Info) Description 03/05/[address] [facility] MEDICINE [address] [place], [place] [phone] Umm Coley MD [address] [place], [place] [phone] Social History Tobacco Use Types Packs/Day Years [...] [facility] [address] [place], [place] [phone] Mariangel Ruff [address] [place] [address] documented as of this encounter Visit Diagnoses Not on filedocumented in this encounter Care Teams Commissions Specialist Relationship Specialty Start Date End Date Umm Coley MD [address] [place] [address] PCP - General Family Medicine 10/31/16 Eva Nunez Job Lithographer 04/05/24 07/06/24 [facility] 05/11/24 11/17/24 [facility] 11/14/24 documented as of this encounter
--- OUTSIDE RECORDS SUMMARY | 2024-12-28 12:01 | XMS_ITS | Encounter Summary ---
Author Organization [employer] Address 75 [facility] 7t [place] [address] Care Team Providers Care Grout Pump Operator Name Role Phone Umm Coley MD Primary Care Provider + Reason for Visit * Reason Onset Date Comments Appointment 06/15/2023 Encounter Details Date Type Department Care Team ([facility] st Contact Info) Description 06/15/2023 Telephone [facility] ADULT DENTAL [address] [facility] [place] [address] Johnny Gonzalez, DMD [address] [place] [address] Appointment Social History Tobacco Use Types Packs/Day [...] 10:00 AM EDT Office Visit [facility] ADULT DENTAL 230 [place], [place] [phone] Elzbieta, Mariangel [address] [place] [address] documented as of this encounter Visit Diagnoses Not on filedocumented in this encounter Additional Health Concerns Assessment Noted Time PHQ-9 Depression Total Score: 12 04/02/ 023 1:58 PM EDT documented as of this encounter Care Teams Grout Pump Operator Relationship Specialty Start Date End Date Umm Coley MD [address] [place] [address] PCP - General Family Medicine 10/31/16 Eva Nunez Final Tester 04/05/24 07/06/24 [facility] 05/11/24 11/17/24 [facility] 11/14/24 documented as of this encounter
--- OUTSIDE RECORDS SUMMARY | 2024-12-28 12:01 | XMS_ITS | Encounter Summary ---
Author Organization [employer] Address 75 [facility] 7t [place] [address] Care Team Providers Care Bicycle Repairer Name Role Phone Umm Coley MD Primary Care Provider + Reason for Visit * Reason Onset Date Comments Appointment 02/24/2023 Encounter Details Date Type Department Care Team ([facility] st Contact Info) Description 02/24/2023 Telephone [facility] ADULT DENTAL [address] [place] [address] Johnny Gonzalez, DMD [address] [place] [address] Appointment Social History Tobacco Use Types Packs/Day [...] 10:00 AM EDT Office Visit [facility] ADULT DENTAL [address] [place] [address] Trino Ruffaris [address] [place] [address] documented as of this encounter Visit Diagnoses Not on filedocumented in this encounter Care Teams Bicycle Repairer Relationship Specialty Start Date End Date Umm Coley MD [address] [place] [address] PCP - General Family Medicine 10/31/16 Eva Nunez Data Processing Clerk 04/05/24 07/06/24 [facility] 05/11/24 11/17/24 [facility] 11/14/24 documented as of this encounter
--- OUTSIDE RECORDS SUMMARY | 2024-12-28 12:01 | XMS_ITS | Encounter Summary ---
Author Organization [employer] Address 75 [facility] 7t [place] [address] Care Team Providers Care Stage Rigger Name Role Phone Umm Coley MD Primary Care Provider + Reason for Visit * Reason Comments Med Change Request Encounter Details Date Type Department Care Team ([facility] Contact Info) Description 03/20/2023 Refill [facility] ADULT DENTAL [address] [place] [address] Johnny Gonzalez DMD [address] [place] [address] Social History Tobacco Use Types Packs/Day Years [...] 03/08/2025 10:00 AM EDT Office Visit [facility] ADULT DENTAL [address] [place], [place] [phone] Mariangel Ruff [address] [place], [place] [phone] documented as of this encounter Visit Diagnoses Not on filedocumented in this encounter Care Teams Stage Rigger Relationship Specialty Start Date End Date Umm Coley MD 230 [place], [place] [phone] PCP - General Family Medicine 10/31/16 Eva Nunez Motorboat Mechanic Inboard 04/05/24 07/06/24 [facility] 05/11/24 11/17/24 [facility] 11/14/24 documented as of this encounter
--- OUTSIDE RECORDS SUMMARY | 2024-12-28 12:01 | XMS_ITS | Encounter Summary ---
Author Organization [employer] Address 75 [facility] 7t [place] [address] Care Team Providers Care Measurement Coordinator Name Role Phone Umm Coley MD Primary Care Provider + Reason for Visit * Reason Onset Date Comments Care Management 12/28/2024 [id number] revie w Encounter Details Date Type Department Care Team ([facility] st Contact Info) Description 12/28/2024 Telephone [facility] MEDICINE [address] [place], [place] [phone] Umm Coley MD 230 [place], [place] [phone] Care Management ([id number] review) Social History Tobacco Use Types Packs/Day [...] back pain, arthritis of knee. Specialists include [place] [facility], [facility] derm, [facility], [facility] vision, [facility], [facility] dental, [facility] pulmonology, [facility] pain management, [facility] GI, [facility] neurology. ED visits within the last 12 months include [facility] 12/23, [facility] 02/28-03/02/24. Last appointment in PCP office on 12/27/24. No future appointment scheduled. documented in this encounter Plan of Treatment Upcoming Encounters Date Type Department Care Team (Late st Contact Info) Description 03/08/2025 10:00 AM EDT Office Visit [facility] ADULT DENTAL [address] [place] [address] Mariangel Ruff [address] [place], [place] [phone] documented as of this encounter Visit Diagnoses Not on filedocumented in this encounter Additional Health Concerns Assessment Noted Time PHQ-9 Depression Total Score: 10 06/10/ 024 9:17 AM EDT documented as of this encounter Care Teams Measurement Coordinator Relationship Specialty Start Date End Date Umm Coley MD [address] [place] [address] PCP - General Family Medicine 10/31/16 [facility] 11/14/24 documented as of this encounter
--- OUTSIDE RECORDS SUMMARY | 2024-12-28 12:01 | XMS_ITS | Encounter Summary ---
Author Organization [employer] [facility] Address [address] [place] [address] 7t [place] [address] Care Team Providers Care Falsework Builder Name Role Phone Umm Coley MD Primary [...] Visit [facility] ADULT DENTAL [address] [place] [address] Elzbieta, Mariangel [address] [place] [address] documented as of this encounter Visit Diagnoses Not on filedocumented in this encounter Care Teams Falsework Builder Relationship Specialty Start Date End Date Umm Coley MD 230 [place] [address] PCP - General Family Medicine 10/31/16 Eva Nunez Coil Former 04/05/24 07/06/24 [facility] 05/11/24 11/17/24 [facility] 11/14/24 documented as of this encounter
--- OUTSIDE RECORDS SUMMARY | 2024-12-28 12:01 | XMS_ITS | Encounter Summary ---
Author Organization [employer] Address [address] [facility] 7t [place] [address] Care Team Providers Care Clinical Study Manager Name Role Phone Umm Coley MD Primary Care Provider + Reason for Visit * Reason Onset Date Comments pre med prior to dental treatment 08/23/2024 Encounter Details Date Type Department Care Team ([facility] st Contact Info) Description 08/23/2024 Telephone [facility] ADULT DENTAL [address] [place], [place] [phone] Johnny Gonzalez, DMD 505 [place] [address] pre med prior to dental treatment Social [...] Description 03/08/2025 10:00 AM EDT Office Visit [facility] ADULT DENTAL [address] [place] [address] Mariangel Ruff [address] [place] [address] documented as of this encounter Visit Diagnoses Not on filedocumented in this encounter Additional Health Concerns Assessment Noted Time PHQ-9 Depression Total Score: 10 024 9:17 AM EDT documented as of this encounter Care Teams Clinical Study Manager Relationship Specialty Start Date End Date Umm Coley MD [address] [place] [address] [place] [address] PCP - General Family Medicine 10/31/16 [facility] 05/11/24 11/17/24 [facility] 11/14/24 documented as of this encounter
--- OUTSIDE RECORDS SUMMARY | 2024-12-28 12:01 | XMS_ITS | Encounter Summary ---
Author Organization [employer] Address 75 [facility] 7t [place] [address] Care Team Providers Care Broadcast Correspondent Name Role Phone Umm Coley MD Primary Care Provider + Reason for Visit * Reason Comments Med Refill Encounter Details Date Type Department Care Team (Late st Contact Info) Description 02/05/2023 Refill [facility] MEDICINE [address] [place] [address] Umm Coley MD 230 [place], [place] [phone] Arthritis of knee Social History Tobacco Use [...] 10:00 AM EDT Office Visit [facility] ADULT DENTAL [address] [place], [place] [phone] Mariangel Ruff [address] [place] [address] documented as of this encounter Visit Diagnoses Diagnosis Arthritis of knee Unspecified arthropathy, lower leg documented in this encounter Care Teams Broadcast Correspondent Relationship Specialty Start Date End Date Umm Coley MD 230 [place] [address] PCP - General Family Medicine 10/31/16 Eva Nunez Line Construction Supervisor 04/05/24 07/06/24 [facility] 05/11/24 11/17/24 [facility] 11/14/24 documented as of this encounter
--- OUTSIDE RECORDS SUMMARY | 2024-12-28 12:01 | XMS_ITS | Encounter Summary ---
Author Organization [employer] Address [address] [facility] 7t [place] [address] Care Team Providers Care Supervisor Lathing Name Role Phone Umm Coley MD Primary Care Provider + Reason for Visit * Reason Onset Date Comments Appointment 03/17/2023 Encounter Details Date Type Department Care Team ([facility] st Contact Info) Description 03/17/2023 Telephone [facility] ADULT DENTAL [address] [place] [address] Johnny Gonzalez, DMD 505 [place] [address] Appointment Social History Tobacco Use Types Packs/Day [...] 10:00 AM EDT Office Visit [facility] ADULT DENTAL 230 [place], [place] [phone] Mariangel Ruff 230 [place] [address] documented as of this encounter Visit Diagnoses Not on filedocumented in this encounter Care Teams Supervisor Lathing Relationship Specialty Start Date End Date Umm Coley MD 230 [place] [address] PCP - General Family Medicine 10/31/16 Eva Nunez Molder Setter 04/05/24 07/06/24 [facility] 05/11/24 11/17/24 [facility] 11/14/24 documented as of this encounter
--- OUTSIDE RECORDS SUMMARY | 2024-12-28 12:01 | XMS_ITS | Encounter Summary ---
Author Organization [employer] Address [address] [facility] 7t [place] [address] Care Team Providers Care Circulation Manager Name Role Phone Umm Coley MD Primary Care Provider + Reason for Visit * Reason Onset Date Comments Appointment Request 12/05/2024 Encounter Details Date Type Department Care Team ([facility] st Contact Info) Description 12/05/2024 Telephone [facility] MEDICINE [address] [place], [place] [phone] Umm Coley MD 230 [place], [place] [phone] Appointment Request Social History Tobacco Use Types [...] 11:01 AM EST TC placed to patient [phone] via [employer] (SeamBLiSS # [id number]). Patient reports she would like an appointment [...] give any more information. Contact pt at [phone] documented in this encounter Plan of Treatment Upcoming Encounters Date Type Department Care Team (Late st Contact Info) Description 03/08/2025 10:00 AM EDT Office Visit [facility] ADULT DENTAL 230 [place] [address] Mariangel Ruff 230 [place] [address] documented as of this encounter Visit Diagnoses Not on filedocumented in this encounter Additional Health Concerns Assessment Noted Time PHQ-9 Depression Total Score: 10 024 9:17 AM EDT documented as of this encounter Care Teams Circulation Manager Relationship Specialty Start Date End Date Umm Coley MD [address] [place] [address] PCP - General Family Medicine 10/31/16 [facility] 11/14/24 documented as of this encounter
--- OUTSIDE RECORDS SUMMARY | 2024-12-28 12:01 | XMS_ITS | Encounter Summary ---
Author Organization [employer] [facility] Address [address] [place] [address] 7t [place] [address] Care Team Providers Care Military Aircraft Designer Name Role Phone Umm Coley MD Primary Care Provider + Encounter Details Date Type Department Care Team (Latest Contact Info) Description 11/23/2020 Abstract [facility] CONVERSIONS Dental, Provider, DDS Social History [...] 10:00 AM EDT Office Visit [facility] ADULT DENTAL [address] [place] [address] Elzbieta, Mariangel [address] [place] [address] documented as of this encounter Visit Diagnoses Not on filedocumented in this encounter Care Teams Military Aircraft Designer Relationship Specialty Start Date End Date Umm Coley MD 230 [place] [address] PCP - General Family Medicine 10/31/16 Eva Nunez Engineer Automated Equipment 04/05/24 07/06/24 [facility] 05/11/24 11/17/24 [facility] 11/14/24 documented as of this encounter
--- OUTSIDE RECORDS SUMMARY | 2024-12-28 12:01 | XMS_ITS | Encounter Summary ---
Author Organization [facility] Address [address] [place] [address] 7t [place] [address] Care Team Providers Care Bundle Cutter Name Role Phone Umm Coley MD Primary Care Provider + Reason for Visit * Reason Comments Med Refill Encounter Details Date Type Department Care Team (Late st Contact Info) Description 06/10/2023 Refill [facility] MEDICINE [address] [place], [place] [phone] Yenny Morris MD 230 [place], [place] [phone] Rash Social History Tobacco Use Types Packs/Day [...] Visit [facility] ADULT DENTAL [address] [place], [place] [phone] Mariangel Ruff [address] [place] [address] documented as of this encounter Visit Diagnoses Diagnosis Rash Rash and other nonspecific skin eruption documented in this encounter Additional Health Concerns Assessment Noted Time PHQ-9 Depression Total Score: 12 023 1:58 PM EDT documented as of this encounter Care Teams Bundle Cutter Relationship Specialty Start Date End Date Umm Coley MD [address] [place] [address] PCP - General Family Medicine 10/31/16 Eva Nunez Waxer 04/05/24 07/06/24 [facility] 05/11/24 11/17/24 [facility] 11/14/24 documented as of this encounter
== END 2024-12-28 11:03 | disposition home or self-care (01) ==
PROVIDERS: PCP Internal Medicine
DX: S52.501A Unspecified fracture of the lower end of right radius, initial encounter for closed fracture (principal)
CPT/HCPCS: 99204

== ENCOUNTER → 2024-12-28 10:07 | Outpatient (BNV) | payer MEDICAID, SELFPAY | PROVIDERS: Visit Provider Radiology Diagnostic Radiology | DX: M25.531 Pain in right wrist (principal) | CPT/HCPCS: 73110 ==

== ENCOUNTER 2025-01-02 08:47 | Day surgery (SDC) | payer MEDICAID, SELFPAY ==
--- OUTSIDE RECORDS SUMMARY | 2024-12-28 17:24 | XMS_ITS | Encounter Summary ---
Author Organization [employer] Address 75 [facility] 7t [place] [address] Care Team Providers Care Certified Medical Coding Specialist Name Role Phone Umm Coley MD Primary Care Provider + Reason for Visit * Reason Onset Date Comments PCP Contact 12/08/2024 Medbox set up. Encounter Details Date Type Department Care Team ([facility] Contact Info) Description 12/13/2024 Telephone [facility] MEDICINE 230 [place], [place] [phone] Umm Coley MD 230 [place], [place] [phone] PCP Contact (Medbox set up.) Social History [...] EST Patient came on Thursday12/09/24 with her BUSINESS OBJECTS CONSULTANT and they brought the log med box [...] with pharmaco education, discussing with patient and BUSINESS OBJECTS CONSULTANT regarding the useand side effects of medications. [...] counselor for this polypharmacy I gave patient's BUSINESS OBJECTS CONSULTANT the med box for that day and the remaining of the pillboxes were pulled into the lock box again, her daughter has the black box combination to open it up. documented in this encounter Plan of Treatment Upcoming Encounters Date Type Department Care Team (Late st Contact Info) Description 02/03/2025 2:00 PM EDT Office Visit [facility] MEDICINE [address] [place] [address] Darrell Myers MD [address] [place] [address] 03/08/2025 10:00 AM EDT Office Visit [facility] ADULT DENTAL [address] [place], [place] [phone] ElzbietaMariangel 230 [place], [place] [phone] documented as of this encounter Visit Diagnoses Not on filedocumented in this encounter Additional Health Concerns Assessment Noted Time PHQ-9 Depression Total Score: 10 024 9:17 AM EDT documented as of this encounter Care Teams Certified Medical Coding Specialist Relationship Specialty Start Date End Date Umm Coley MD [address] [place] [phone] PCP - General Family Medicine 10/31/16 [facility] 11/14/24 documented as of this encounter
--- OUTSIDE RECORDS SUMMARY | 2024-12-28 17:24 | XMS_ITS | Encounter Summary ---
Author Organization [employer] Address 75 [facility] 7t [place] [address] Care Team Providers Care Jive Developer Name Role Phone Umm Coley MD Primary Care Provider + Reason for Visit * Reason Comments Medication Problem Encounter Details Date Type Department Care Team ([facility] st Contact Info) Description 12/08/2024 12:15 PM EST Office Visit [facility] MEDICINE [address] [place], [place] [phone] Umm Coley MD [address] [place], [place] [phone] Recurrent falls (Primary Dx); Neuropathy of both [...] the nurse that she had followed to [facility] wanted her to sign some [facility] documents (reportedly to provide services?) that she didn't feel comfortable signing and didn't offer further explanation so the nurse walked out of the house and she was discharged from the [employer]. She's concerned that she only has med [...] comfortable taking meds by herself and her SPINE SPECIALIST doesn't know how to put them on [...] we can organize the medications. Pt and SPINE SPECIALIST agreed with the plan of care. POC discussed with team nurse and front desk supervisor. Neuropathy of both feet Generalized anxiety [...] we can organize the medications. Pt and SPINE SPECIALIST agreed with the plan of care. POC discussed with team nurse and front desk supervisor. * Addendum Note - Umm Coley MD - 12/08/2024 12:15 PM ESTAddended by: UMM COLEY on: 12/12/2024 12:28 PM Modules accepted: Level of Service documented in this encounter Plan of Treatment Upcoming Encounters Date Type Department Care Team (Late st Contact Info) Description 02/03/2025 2:00 PM EDT Office Visit [facility] MEDICINE [address] [place] [address] Darrell Myers MD [address] [place] [address] 03/08/2025 10:00 AM EDT Office Visit [facility] ADULT DENTAL [address] [place] [address] Elzbieta, Mariangel [address] [place] [address] documented as of this encounter Visit Diagnoses Diagnosis Recurrent falls- Primary Neuropathy of both feet Generalized anxiety disorder documented in this encounter Additional Health Concerns Assessment Noted Time PHQ-9 Depression Total Score: 10 024 9:17 AM EDT documented as of this encounter Care Teams Jive Developer Relationship Specialty Start Date End Date Umm Coley MD [address] [place] [address] PCP - General Family Medicine 10/31/16 [facility] 11/14/24 documented as of this encounter
--- OUTSIDE RECORDS SUMMARY | 2024-12-28 17:24 | XMS_ITS | Encounter Summary ---
Author Organization [employer] Address 75 [facility] 7t [place] [address] Care Team Providers Care Instrument Installer Name Role Phone Umm Coley MD Primary Care Provider + Reason for Visit * Reason Onset Date Comments appt 01/08/2024 Encounter Details Date Type Department Care Team ([facility] st Contact Info) Description 01/08/2024 Telephone [facility] CHC ADULT DENTAL [address] [place], [place] [phone] Homer Strong, DMD [address] [place] [address] appt Social History Tobacco Use Types Packs/Day [...] Description 02/03/2025 2:00 PM EDT Office Visit [facility] MEDICINE [address] [place] [address] Darrell Myesr MD 230 [place] [address] 03/08/2025 10:00 AM EDT Office Visit [facility] ADULT DENTAL [address] [place] [address] Mariangel Ruff [address] [place] [address] documented as of this encounter Visit Diagnoses Not on filedocumented in this encounter Additional Health Concerns Assessment Noted Time PHQ-9 Depression Total Score: 21 024 11:31 AM EST documented as of this encounter Care Teams Instrument Installer Relationship Specialty Start Date End Date Umm Coley MD [address] [place] [address] PCP - General Family Medicine 10/31/16 Eva Nunez Fur Tanner 04/05/24 07/06/24 [facility] 05/11/24 11/17/24 [facility] 11/14/24 documented as of this encounter
--- OUTSIDE RECORDS SUMMARY | 2024-12-28 17:24 | XMS_ITS | Encounter Summary ---
Author Organization [employer] Address 75 [facility] 7t [place] [address] Care Team Providers Care Virologist Name Role Phone Umm Coley MD Primary Care Provider + Reason for Visit * Reason Onset Date Comments Call Back Request 12/20/2024 Encounter Details Date Type Department Care Team ([facility] st Contact Info) Description 12/20/2024 Telephone [facility] MEDICINE [address] [place], [place] [phone] Umm Coley MD 230 [place], [place] [phone] Call Back Request Social History Tobacco Use [...] PM EST RN was informed by [facility] ([facility]) that they have changed the patients nurse to a female nurse. Patient's VNA will now be [facility]. * Telephone Encounter - Deyvi Bray RN - 12/21/2024 9:51 AM EST TC returned to patient (via [facility] waste disposal plant operator) no answer left voicemail to return call to clinic. * Telephone Encounter - Rossana Lawrence - 12/21/2024 9:32 AM EST Tc from pt requesting a call back regarding message below. R[place]an * Telephone Encounter - Umm Coley MD - 12/20/2024 4:24 PM EST Nurse supervisor screen making note re meds appreciated. Agree with POC, [...] 3:28 PM EST Spoke to patient (with [facility] er medical technician) regarding VNA nurse and meds (as discussed [...] RN discposed of medications in sharps container ([facility] er medical technician witnessed disposal). One pill was orange/red capsule [...] can switch them. RN called [facility] VNA spoke to director Zara [...] verbalized understanding and will return call to horticultural manager if she is able to find [...] has a new VNA service ([facility]) which started on Thursday. Patient reports on Thursday it was two females who went to the patients [place] and they put all the medications on [...] confirm he is employed by [facility]. Patient reports she is having a hard time trusting the VNAand that he is aware of what he is doing. TC placed to VNA Randy [phone] to discuss above situation. Randy VNA reports [...] to PCP who requested RN call Deyvi (horticultural manager) to speak to patient. RN called [...] a Nurse of PCP Contact pt at [phone] documented in this encounter Plan of Treatment Upcoming Encounters Date Type Department Care Team (Late st Contact Info) Description 02/03/2025 2:00 PM EDT Office Visit [facility] MEDICINE [address] [place] [address] Darrell Myers MD [address] [place] [address] 03/08/2025 10:00 AM EDT Office Visit [facility] ADULT DENTAL [address] [place] [address] Mariangel Ruff [address] [place] [address] documented as of this encounter Visit Diagnoses Not on filedocumented in this encounter Additional Health Concerns Assessment Noted Time PHQ-9 Depression Total Score: 10 024 9:17 AM EDT documented as of this encounter Care Teams Virologist Relationship Specialty Start Date End Date Umm Coley MD [address] [place] [address] PCP - General Family Medicine 10/31/16 [facility] 11/14/24 documented as of this encounter
--- OUTSIDE RECORDS SUMMARY | 2024-12-28 17:24 | XMS_ITS | Encounter Summary ---
Author Organization [employer] Address 75 [facility] 7t [place] [address] Care Team Providers Care Warp Hauler Name Role Phone Umm Coley MD Primary [...] Description 02/03/2025 2:00 PM EDT Office Visit [facility] MEDICINE [address] [place] [address] Darrell Myers MD 230 [place] [address] 03/08/2025 10:00 AM EDT Office Visit [facility] ADULT DENTAL [address] [place] [address] Elzbieta Mariangel [address] [place] [address] documented as of this encounter Visit Diagnoses Not on filedocumented in this encounter Additional Health Concerns Assessment Noted Time PHQ-9 Depression Total Score: 10 024 9:17 AM EDT documented as of this encounter Care Teams Warp Hauler Relationship Specialty Start Date End Date Umm Coley MD [address] [place] [address] PCP - General Family Medicine 10/31/16 [facility] 11/14/24 documented as of this encounter
--- OUTSIDE RECORDS SUMMARY | 2024-12-28 17:24 | XMS_ITS | Encounter Summary ---
Author Organization [employer] Address 75 [facility] 7t [place] [address] Care Team Providers Care Imaging Aide Name Role Phone Umm Coley MD Primary Care Provider + Reason for Visit * Reason Comments [facility] Encounter Details Date Type Department Care Team (Latest Contact Info) Description 12/28/2024 Patient Outreach [facility] MEDICINE [address] [place] [address] Umm Coley MD [address] [place] [address] Care Coordination (C3 -BEATRIZ [place] telephone call outreach) Social History Tobacco Use Types Packs/Day Years [...] AM EDT documented as of this encounter Progress Notes * Shannan Covington - 12/28/2024 12:49 PM EST CHW Shannan C[place], placed outbound call to patient introducing herself from [facility] CM Department, in regards to offering services. Patient's name and was confirmed. Patient agrees toparticipate in program. Appt. for initial assessment scheduled for 01/12/25@ 10:00AM. CHW reinforceddirect contact information or for any additional questions or concerns and extended clinic hours on Mondays and Wednesdays, and Walk-In Urgent Care Located in [facility] of [facility]. Patient provided with after-hours line for [facility], , which offer night time triage service and option to transfer to solution advisor provider if needed. Patient verbalizes understanding, and able to repeat back to content writer. documented in this encounter Plan of Treatment Upcoming Encounters Date Type Department Care Team (Late st Contact Info) Description 02/03/2025 2:00 PM EDT Office Visit [facility] MEDICINE [address] [place] [address] Darrell Myers MD [address] [place] [address] 03/08/2025 10:00 AM EDT Office Visit [facility] ADULT DENTAL [address] [place] [address] Mariangel Ruff [address] [place] [address] documented as of this encounter Visit Diagnoses Not on filedocumented in this encounter Additional Health Concerns Assessment Noted Time PHQ-9 Depression Total Score: 10 024 9:17 AM EDT documented as of this encounter Care Teams Imaging Aide Relationship Specialty Start Date End Date Umm Coley MD [address] [place] [address] PCP - General Family Medicine 10/31/16 [facility] 11/14/24 documented as of this encounter
--- OUTSIDE RECORDS SUMMARY | 2024-12-28 17:24 | XMS_ITS | Encounter Summary ---
Author Organization [employer] Address 75 [facility] 7t [place] [address] Care Team Providers Care Driver Operator Name Role Phone Umm Coley MD Primary Care Provider + Encounter Details Date Type Department Care Team (Late st Contact Info) Description 12/28/2024 Telephone [facility] MEDICINE [address] [place], [place] [phone] Umm Coley MD 230 [place], [place] [phone] Social History Tobacco Use Types Packs/Day Years [...] Encounter - West Meier RN - 12/28/2024 2:37 PM EST Noted. OMARI Meier RN spoke with PCP re: case. * Telephone Encounter - West Meier RN - 12/28/2024 2:37 PM EST ----- Message from Nurse Leatha Cleveland sent at 12/28/2024 6:50 AM EST ----- ----- Message ----- From: Umm Coley MD Sent: 12/27/2024 5:17 PM EST To: Tani Clinical Care Managers I sent a referral re help with med compliance and multiple ED visit, please reach out to me to discuss this patient's case documented in this encounter Plan of Treatment Upcoming Encounters Date Type Department Care Team (Late st Contact Info) Description 02/03/2025 2:00 PM EDT Office Visit [facility]INE [address] [place] [address] Darrell Myers MD [address] [place] [address] 03/08/2025 10:00 AM EDT Office Visit [facility]ULT [facility] [address] [place] [address] Mariangel Ruff [address] [place] [address] documented as of this encounter Visit Diagnoses Not on filedocumented in this encounter Additional Health Concerns Assessment Noted Time PHQ-9 Depression Total Score: 10 024 9:17 AM EDT documented as of this encounter Care Teams Driver Operator Relationship Specialty Start Date End Date Umm Coley MD 230 [place] [address] PCP - General Family Medicine 10/31/16 [facility] 11/14/24 documented as of this encounter
--- OUTSIDE RECORDS SUMMARY | 2024-12-28 17:24 | XMS_ITS | Encounter Summary ---
Author Organization [employer] Address 75 [facility] 7t [place] [address] Care Team Providers Care Valve Assembler Name Role Phone Umm Coley MD Primary Care Provider + Reason for Visit * Reason Onset Date Comments Appointment Request 12/22/2024 Encounter Details Date Type Department Care Team ([facility] st Contact Info) Description 12/22/2024 Telephone [facility] MEDICINE [address] [place], [place] [phone] Umm Coley MD [address] [place], [place] [phone] Appointment Request Social History Tobacco Use Types [...] 10:27 AM EST TC returned to patient [phone] in regards to below message. Patient reports [...] AM EST Tc from pt returning call. Hebrew * Telephone Encounter - Gisela Reynoso RN - 12/22/2024 8:36 AM EST TC placed to patient [phone] in regards to below message. Patient did not answer, RN left VM requesting CB to red team nurses. Patient to f/u PRN. * Telephone Encounter - Ronny Farrell - 12/22/2024 8:14 AM EST Tc from pt requesting to get Apt with PCP due to feeling Weak Around her whole body. Pt would like to be added to the recall list if nothing is available to be scheduled. Contact pt at [phone] documented in this encounter Plan of Treatment Upcoming Encounters Date Type Department Care Team (Late st Contact Info) Description 02/03/2025 2:00 PM EDT Office Visit [facility] MEDICINE [address] [place] [address] Darrell Myers MD [address] [place] [address] 03/08/2025 10:00 AM EDT Office Visit [facility] ADULT DENTAL [address] [place] [address] Elzbieta, Mariangel [address] [place] [address] documented as of this encounter Visit Diagnoses Not on filedocumented in this encounter Additional Health Concerns Assessment Noted Time PHQ-9 Depression Total Score: 10 024 9:17 AM EDT documented as of this encounter Care Teams Valve Assembler Relationship Specialty Start Date End Date Umm Coley MD [address] [place] [address] PCP - General Family Medicine 10/31/16 [facility] 11/14/24 documented as of this encounter
--- OUTSIDE RECORDS SUMMARY | 2024-12-28 17:24 | XMS_ITS | Encounter Summary ---
Author Organization [employer] Address 75 [facility] 7t [place] [address] Care Team Providers Care Steel Erector Name Role Phone Umm Coley MD Primary Care Provider + Reason for Visit * Reason Onset Date Comments Medication List 12/28/2024 Encounter Details Date Type Department Care Team ([facility] st Contact Info) Description 12/28/2024 Telephone [facility] MEDICINE [address] [place], [place] [phone] Umm Coley MD 230 [place], [place] [phone] Medication List Social History Tobacco Use Types Packs/Day Years [...] Telephone Encounter - Gisela Reynoso RN - 12/28/2024 12:03 PM EST RN spoke to TORI Thakur who reports the only medication list they currently have is the one from [facility] (our office). RN was informed the medications Rx'd by the psychiatrist, the [facility] is placing in themedbox per directions on the medication bottle labels. TORI reports she plans to call psychiatry office to attempt to obtain medication list from their office. Sending to PCP as FYBest. ----- Message from Umm Coley MD sent at 12/27/2024 5:16 PM EST ----- Please call [facility] and asked them to send a list of patient's medications including psych medications,PRNs and OTCs documented in this encounter Plan of Treatment Upcoming Encounters Date Type Department Care Team (Late st Contact Info) Description 02/03/2025 2:00 PM EDT Office Visit [facility] MEDICINE [address] [place], [place] [phone] Darrell Myers MD [address] [place] [address] 03/08/2025 10:00 AM EDT Office Visit [facility] ADULT DENTAL [address] [place] [address] Mariangel Ruff [address] [place] [address] documented as of this encounter Visit Diagnoses Not on filedocumented in this encounter Additional Health Concerns Assessment Noted Time PHQ-9 Depression Total Score: 10 024 9:17 AM EDT documented as of this encounter Care Teams Steel Erector Relationship Specialty Start Date End Date Umm Coley MD [address] [place] [address] PCP - General Family Medicine 10/31/16 [facility] 11/14/24 documented as of this encounter
--- OUTSIDE RECORDS SUMMARY | 2024-12-28 17:24 | XMS_ITS | Encounter Summary ---
Author Organization [employer] Address 75 [facility] 7t [place] [address] Care Team Providers Care University Professor Name Role Phone Umm Coley MD Primary Care Provider + Reason for Visit * Reason Onset Date Comments VNA services 12/08/2024 Encounter Details Date Type Department Care Team ([facility] st Contact Info) Description 12/08/2024 Telephone [facility] MEDICINE [address] [place], [place] [phone] Gisela Reynoso, BEBA [address] [place], [place] [phone] VNA services Social History Tobacco Use Types [...] can fill the patients lock box at [facility] (she uses [facility] not [facility] pharmacy) to bridge the gap until patient can become established with a new VNA. PCP reports she willing to pre-fill medbox however wants to ensure it is acceptable legally. RN spoke to Sana with PCP, who informed it is acceptable for medications to be placed in lock boxby [facility] however the visit should be billed as [...] Ofe ([facility] liasion) will not be servicing [facility] today d/t the weather however advised RN to fax referral to [phone] (confirmation page received). Ofe will notify office of referral urgency. documented in this encounter Plan of Treatment Upcoming Encounters Date Type Department Care Team (Late st Contact Info) Description 02/03/2025 2:00 PM EDT Office Visit [facility] MEDICINE [address] [place] [address] Darrell Myers MD 230 [place] [address] 03/08/2025 10:00 AM EDT Office Visit [facility] ADULT DENTAL 230 [place] [address] Elzbieta, Mariangel 230 [place] [address] documented as of this encounter Visit Diagnoses Not on filedocumented in this encounter Additional Health Concerns Assessment Noted Time PHQ-9 Depression Total Score: 10 024 9:17 AM EDT documented as of this encounter Care Teams University Professor Relationship Specialty Start Date End Date Umm Coley MD [address] [place] [address] PCP - General Family Medicine 10/31/16 [facility] 11/14/24 documented as of this encounter
--- OUTSIDE RECORDS SUMMARY | 2024-12-28 17:24 | XMS_ITS | Encounter Summary ---
Author Organization [employer] Address 75 [facility] 7t [place] [address] Care Team Providers Care Blender Laborer Name Role Phone Umm Coley MD Primary Care Provider + Encounter Details Date Type Department Care Team (Late st Contact Info) Description 12/28/2024 Patient Outreach [facility] MEDICINE [address] [place], [place] [phone] Umm Coley MD [address] [place], [place] [phone] Social History Tobacco Use Types Packs/Day Years [...] Description 02/03/2025 2:00 PM EDT Office Visit [facility] MEDICINE [address] [place] [address] Darrell Myers MD 230 [place] [address] 03/08/2025 10:00 AM EDT Office Visit [facility] ADULT DENTAL [address] [place] [address] Elzbieta, Mariangel [address] [place] [address] documented as of this encounter Visit Diagnoses Not on filedocumented in this encounter Additional Health Concerns Assessment Noted Time PHQ-9 Depression Total Score: 10 024 9:17 AM EDT documented as of this encounter Care Teams Blender Laborer Relationship Specialty Start Date End Date Umm Coley MD [address] [place] [address] PCP - General Family Medicine 10/31/16 [facility] 11/14/24 documented as of this encounter
--- OUTSIDE RECORDS SUMMARY | 2024-12-28 17:24 | XMS_ITS | Encounter Summary ---
Author Organization [employer] Address 75 [facility] 7t [place] [address] Care Team Providers Care Automotive Glass Technician Name Role Phone Umm Coley MD Primary Care Provider + Reason for Visit * Reason Onset Date Comments Chart prep 12/07/2024 Encounter Details Date Type Department Care Team ([facility] st Contact Info) Description 12/07/2024 Telephone [facility] 230 [place], [place] [phone] Juana Connor MA Chart prep Social History [...] Description 02/03/2025 2:00 PM EDT Office Visit [facility] [address] [place] [address] Darrell Myers MD 230 [place] [address] 03/08/2025 10:00 AM EDT Office Visit [facility] ADULT [facility] [address] [place] [address] Elzbieta, Mariangel [address] [place] [address] documented as of this encounter Visit Diagnoses Not on filedocumented in this encounter Additional Health Concerns Assessment Noted Time PHQ-9 Depression Total Score: 10 024 9:17 AM EDT documented as of this encounter Care Teams Automotive Glass Technician Relationship Specialty Start Date End Date Umm Coley MD [address] [place] [address] PCP - General Family Medicine 10/31/16 [facility] 11/14/24 documented as of this encounter
--- OUTSIDE RECORDS SUMMARY | 2024-12-28 17:24 | XMS_ITS | Encounter Summary ---
Author Organization [employer] Address 75 [facility] 7t [place] [address] Care Team Providers Care Crackling Press Operator Name Role Phone Umm Coley MD Primary Care Provider + Reason for Visit * Reason Onset Date Comments FYI. 12/08/2024 Encounter Details Date Type Department Care Team ([facility] st Contact Info) Description 12/08/2024 Telephone [facility] MEDICINE 230 [place], [place] [phone] Umm Coley MD 230 [place], [place] [phone] FYI. Social History Tobacco Use Types Packs/Day [...] AM EST TC returned to Mir Almonte [phone] in regards to below message. Tyrel did [...] contact Tyrel with any further questions at [phone]. documented in this encounter Plan of Treatment Upcoming Encounters Date Type Department Care Team (Late st Contact Info) Description 02/03/2025 2:00 PM EDT Office Visit [facility] MEDICINE [address] [place] [address] Darrell Myers MD [address] [place], [place] [phone] 03/08/2025 10:00 AM EDT Office Visit [facility] ADULT DENTAL [address] [place] [address] Mariangel Ruff [address] [place] [address] documented as of this encounter Visit Diagnoses Not on filedocumented in this encounter Additional Health Concerns Assessment Noted Time PHQ-9 Depression Total Score: 10 024 9:17 AM EDT documented as of this encounter Care Teams Crackling Press Operator Relationship Specialty Start Date End Date Umm Coley MD 230 [place] [address] PCP - General Family Medicine 10/31/16 [facility] 11/14/24 documented as of this encounter
--- OUTSIDE RECORDS SUMMARY | 2024-12-28 17:24 | XMS_ITS | Encounter Summary ---
Author Organization [employer] Address 75 [facility] 7t [place] [address] Care Team Providers Care Hand I Thermal Cutter Name Role Phone Umm Coley MD [...] Description 02/03/2025 2:00 PM EDT Office Visit [facility] MEDICINE [address] [place] [address] Darrell Myers MD 230 [place] [address] 03/08/2025 10:00 AM EDT Office Visit [facility] ADULT DENTAL [address] [place] [address] Elzbieta Mariangel [address] [place] [address] documented as of this encounter Visit Diagnoses Not on filedocumented in this encounter Additional Health Concerns Assessment Noted Time PHQ-9 Depression Total Score: 10 024 9:17 AM EDT documented as of this encounter Care Teams Hand I Thermal Cutter Relationship Specialty Start Date End Date Umm Coley MD [address] [place] [address] PCP - General Family Medicine 10/31/16 [facility] 11/14/24 documented as of this encounter
--- OUTSIDE RECORDS SUMMARY | 2024-12-28 17:25 | XMS_ITS | Encounter Summary ---
Author Organization [employer] [facility] Address [address] [place] [address] 7t [place] [address] Care Team Providers Care Appeals Writer Name Role Phone Umm Coley MD Primary Care Provider + Encounter Details Date Type Department Care Team (Latest Contact Info) Description 11/14/2019 Abstract [facility] CONVERSIONS Dental, Provider, DDS Social History [...] Description 02/03/2025 2:00 PM EDT Office Visit [facility] MEDICINE [address] [place] [address] Darrell Myers MD [address] [place] [address] 03/08/2025 10:00 AM EDT Office Visit [facility] ADULT DENTAL [address] [place] [address] Trino Ruffaris [address] [place] [address] documented as of this encounter Visit Diagnoses Not on filedocumented in this encounter Care Teams Appeals Writer Relationship Specialty Start Date End Date Umm Coley MD 230 [place] [address] PCP - General Family Medicine 10/31/16 Eva Nunez Advertising Account Executive 04/05/24 07/06/24 [facility] 05/11/24 11/17/24 [facility] 11/14/24 documented as of this encounter
--- OUTSIDE RECORDS SUMMARY | 2024-12-28 17:25 | XMS_ITS | Encounter Summary ---
Author Organization [employer] Address 75 [facility] 7t [place] [address] Care Team Providers Care Citrix Systems Administrator Name Role Phone Umm Coley MD Primary Care Provider + Reason for Visit * Reason Onset Date Comments Appointment Request 12/05/2024 Encounter Details Date Type Department Care Team ([facility] st Contact Info) Description 12/05/2024 Telephone [facility] MEDICINE [address] [place], [place] [phone] Umm Coley MD 230 [place], [place] [phone] Appointment Request Social History Tobacco Use Types [...] 11:01 AM EST TC placed to patient [phone] via [employer] (Sand Sign # [id number]). Patient reports she would like an appointment [...] give any more information. Contact pt at [phone] documented in this encounter Plan of Treatment Upcoming Encounters Date Type Department Care Team (Late st Contact Info) Description 02/03/2025 2:00 PM EDT Office Visit [facility] MEDICINE [address] [place] [address] Darrell Myers MD [address] [place] [address] 03/08/2025 10:00 AM EDT Office Visit [facility] ADULT DENTAL [address] [place], [place] [phone] Elzbieta, Mariangel [address] [place] [address] documented as of this encounter Visit Diagnoses Not on filedocumented in this encounter Additional Health Concerns Assessment Noted Time PHQ-9 Depression Total Score: 10 024 9:17 AM EDT documented as of this encounter Care Teams [employer] Systems Administrator Relationship Specialty Start Date End Date Umm Coley MD [address] [place] [address] PCP - General Family Medicine 10/31/16 [facility] 11/14/24 documented as of this encounter
--- OUTSIDE RECORDS SUMMARY | 2024-12-28 17:25 | XMS_ITS | Encounter Summary ---
Author Organization [employer] Address 75 [facility] 7t [place] [address] Care Team Providers Care Precision Thread Grinder Operator Name Role Phone Umm Coley MD Primary Care Provider + Reason for Visit * Reason Onset Date Comments Appointment Request 12/26/2024 Encounter Details Date Type Department Care Team ([facility] st Contact Info) Description 12/26/2024 Telephone [facility] MEDICINE 230 [place], [place] [phone] Umm Coley MD 230 [place], [place] [phone] Appointment Request Social History Tobacco Use Types [...] fracture. RN inquired if patient can have MANUFACTURING COST ESTIMATOR assist her in dressing in order for patient to be able to come to [facility] to be evaluated. Patient verbalized understanding and reports she will havePCA assist her. Patient reminded of appointment time. Patient to f/u PRN. * Telephone Encounter - Gisela Reynoso RN - 12/26/2024 10:30 AM EST TC placed to [phone] in regards to below message. Patient did [...] at that time tomorrow. Contact pt at [phone] documented in this encounter Plan of Treatment Upcoming Encounters Date Type Department Care Team (Late st Contact Info) Description 02/03/2025 2:00 PM EDT Office Visit [facility] MEDICINE [address] [place] [address] Darrell Myers MD [address] [place] [address] 03/08/2025 10:00 AM EDT Office Visit [facility] ADULT DENTAL [address] [place] [address] Mariangel Ruff [address] [place] [address] documented as of this encounter Visit Diagnoses Not on filedocumented in this encounter Additional Health Concerns Assessment Noted Time PHQ-9 Depression Total Score: 10 024 9:17 AM EDT documented as of this encounter Care Teams Precision Thread Grinder Operator Relationship Specialty Start Date End Date Umm Coley MD [address] [place] [address] PCP - General Family Medicine 10/31/16 [facility] 11/14/24 documented as of this encounter
--- OUTSIDE RECORDS SUMMARY | 2024-12-28 17:25 | XMS_ITS | Encounter Summary ---
Author Organization [employer] Address 75 [facility] 7t [place] [address] Care Team Providers Care Separating Machine Operator Name Role Phone Umm Coley MD Primary Care Provider + Reason for Visit * Reason Comments Med Change Request Encounter Details Date Type Department Care Team ([facility] Contact Info) Description 03/20/2023 Refill [facility] ADULT DENTAL [address] [place] [address] Johnny Gonzalez DMD [address] [place] [address] Social History Tobacco Use Types Packs/Day Years [...] Description 02/03/2025 2:00 PM EDT Office Visit [facility] MEDICINE [address] [place] [address] Darrell Myers MD 230 [place] [address] 03/08/2025 10:00 AM EDT Office Visit [facility] ADULT DENTAL [address] [place], [place] [phone] ElzbietaTrinoMariangel 230 [place], [place] [phone] documented as of this encounter Visit Diagnoses Not on filedocumented in this encounter Care Teams Separating Machine Operator Relationship Specialty Start Date End Date Umm Coley MD 230 [place], [place] [phone] PCP - General Family Medicine 10/31/16 Eva Nunez Hand Dry Cleaner 04/05/24 07/06/24 [facility] 05/11/24 11/17/24 [facility] 11/14/24 documented as of this encounter
--- OUTSIDE RECORDS SUMMARY | 2024-12-28 17:25 | XMS_ITS | Encounter Summary ---
Author Organization [employer] [facility] Address [address] [place] [address] 7t [place] [address] Care Team Providers Care Tape Librarian Name Role Phone Umm Coley MD Primary Care Provider + Encounter Details Date Type Department Care Team (Late st Contact Info) Description 09/24/2022 Abstract [facility] ADULT DENTAL [address] [place] [address] Dental, Provider, DDS Social History Tobacco Use [...] Description 02/03/2025 2:00 PM EDT Office Visit [facility] MEDICINE [address] [place] [address] Darrell Myers MD [address] [place] [address] 03/08/2025 10:00 AM EDT Office Visit [facility] ADULT DENTAL [address] [place] [address] Mariangel Ruff [address] [place] [address] documented as of this encounter Procedures Procedure [...] on filedocumented in this encounter Care Teams Tape Librarian Relationship Specialty Start Date End Date Umm Coley MD [address] [place] [address] PCP - General Family Medicine 10/31/16 Eva Nunez Artificial Fly Tier 04/05/24 07/06/24 [facility] 05/11/24 11/17/24 [facility] 11/14/24 documented as of this encounter
--- OUTSIDE RECORDS SUMMARY | 2024-12-28 17:25 | XMS_ITS | Encounter Summary ---
Author Organization [employer] Address [address] [facility] [address] [place] [address] Care Team Providers Care Fur Sorter Name Role Phone Umm Coley MD Primary Care Provider + Reason for Visit * Reason Comments Med Refill Encounter Details Date Type Department Care Team (Late Contact Info) Description 05/21/2023 Refill [facility] MEDICINE [address] [place], [place] [phone] Umm Coley MD [address] [place] [address] Arthritis of knee Social History Tobacco Use [...] Department Care Team (Late Contact Info) Description 02/03/2025 2:00 PM EDT Office Visit [facility] MEDICINE [address] [place] [address] Darrell Myers MD [address] [place] [address] 03/08/2025 10:00 AM EDT Office Visit [facility] ADULT DENTAL [address] [place] [address] Elzbieta, Mariangel [address] [place] [address] documented as of this encounter Visit Diagnoses Diagnosis Arthritis of knee Unspecified arthropathy, lower leg documented in this encounter Additional Health Concerns Assessment Noted Time PHQ-9 Depression Total Score: 12 023 1:58 PM EDT documented as of this encounter Care Teams Fur Sorter Relationship Specialty Start Date End Date Umm Coley MD [address] [place] [id number] PCP - General Family Medicine 10/31/16 Eva Nunez Winding Inspector 04/05/24 07/06/24 [facility] 05/11/24 11/17/24 [facility] 11/14/24 documented as of this encounter
--- OUTSIDE RECORDS SUMMARY | 2024-12-28 17:25 | XMS_ITS | Clinical Summary ---
Author Organization Unknown Care Team Providers Care Telecommunications Operator Name Role Phone DANIEL JACOBS, SHALONDA Unavailable Unavailable DUANE YODER, TEE Unavailable Unavailable Payers Payer Name Policy Type Policy Number Effective Date Expira tion Date MEDICAID [facility] [id number] Problems Condition Name Condition Details Condition Category [...] UNSPECIFIED SITE Active 5-12 00:00: 00 OTHER SHELTER (CURRENT) DRUG THERAPY Active 1-15 00:00: 00 SHELTER (CURRENT) USE OF NON-STEROIDA L NON-INFLAM (NSAID) [...] on aerosol inhaler 01-20 00:00: 00 Yes [id number] Per instruc tions DOS VECES AL D Per instructio ns DOS VECES AL D (route: inhalation ) Med Classific ation: Respirato ry Therapy Agents magnesium oxide 400 mg (241.3 mg magnesium) tablet 01-30 00:00: 00 11-14 00:00 :00 No [id number] Per instruc tions TOME NAIMA TABLETA TODOS LOS D Per instructio ns TOME NAIMA TABLETA TODOS LOS D (route: oral) Med Classific ation: Electroly te Balance-N utritiona l Products buspirone 15 mg tablet 01-16 00:00: 00 Yes [id number] Per instruc tions TOME NAIMA TABLETA CHEMA VECES AL D Per instructio ns TOME NAIMA TABLETA CHEMA VECES AL D (route: oral) Med Classific ation: Central Nervous System Agents melatonin 5 mg tablet 01-30 00:00: 00 Yes [id number] Per instruc tions EVERYDAY AT 5 PM FOR 2 WEEKS THEN MAY INCREASE TO 2 TABS E VERYDAY AT Per instructio ns EVERYDAY AT 5 PM FOR 2 WEEKS THEN MAY INCREASE TO 2 TABS E VERYDAY AT (route: oral) Med Classific ation: Central Nervous System Agents loratadine 10 mg tablet 01-04 00:00: 00 Yes [id number] Per instruc tions TOME NAIMA TABLETA TODOS LOS D Per instructio ns TOME NAIMA TABLETA TODOS LOS D (route: oral) Med Classific ation: Respirato ry Therapy Agents senna 8.6 mg tablet 01-30 00:00: 00 Yes [id number] Per instruc tions TODOS LOS D Per instructio ns TODOS LOS D (route: oral) Med Classific ation: Gastroint estinal Therapy Agents omeprazole 20 mg capsule,del ayed release 01-27 00:00: 00 Yes [id number] Per instruc tions TODOS LOS D Per instructio ns TODOS LOS D (route: oral) Med Classific ation: Gastroint estinal Therapy Agents mirtazapine 45 mg tablet 24 00:00: 00 Yes [id number] Per instruc tions AT BEDTIME DIRECTED Per instructio ns AT BEDTIME DIRECTED (route: oral) Med Classific ation: Central Nervous System Agents famotidine 40 mg tablet 01-30 00:00: 00 11-14 00:00 :00 No [id number] Per instruc tions Per instructio ns (route: oral) Med Classific ation: Gastroint estinal Therapy Agents olanzapine 20 mg tablet 01-30 00:00: 00 Yes [id number] Per instruc tions AT BEDTIME Per instructio ns AT BEDTIME (route: oral) Med Classific ation: Central Nervous System Agents clonazepam 1 mg tablet 01-08 00:00: 00 Yes [id number] Per instruc tions TOME NAIMA TABLETA DOS VECES AL D Per instructio ns TOME NAIMA TABLETA DOS VECES AL D (route: oral) Med Classific ation: Central Nervous System Agents dicyclomine 20 mg tablet 01-08 00:00: 00 Yes [id number] Per instruc tions CUATRO VECES AL D Per instructio ns CUATRO VECES AL D (route: oral) Med Classific ation: Gastroint estinal Therapy Agents amlodipine 2.5 mg tablet 01-19 00:00: 00 11-14 00:00 :00 No [id number] Per instruc tions TOME NAIMA TABLETA TODOS LOS D Per instructio ns TOME NAIMA TABLETA TODOS LOS D (route: oral) Med Classific ation: Cardiovas cular Therapy Agents sertraline 100 mg tablet 17 00:00: 00 Yes [id number] Per instruc tions TODOS LOS D Per instructio ns TODOS LOS D (route: oral) Med Classific ation: Central Nervous System Agents nabumetone 500 mg tablet 01-31 00:00: 00 11-14 00:00 :00 No [id number] Per instruc tions TOME NAIMA TABLETA DOS VECES AL D Per instructio ns TOME NAIMA TABLETA DOS VECES AL D (route: oral) Med Classific ation: Analgesic , Anti-infl ammatory or Antipyret ic amitriptyli ne 50 mg tablet 01-27 00:00: 00 Yes [id number] Per instruc tions TOME NAIMA TABLETA TODOS LOS D AL ACOSTARSE FOR 30 DAYS Per instructio ns TOME NAIMA TABLETA TODOS LOS D AL ACOSTARSE FOR 30 DAYS (route: oral) Med Classific ation: Central Nervous System Agents prazosin 2 mg capsule 01-22 00:00: 00 Yes [id number] Per instruc tions TODOS LOS D Per instructio ns TODOS LOS D (route: oral) Med Classific ation: Cardiovas cular Therapy Agents cholecalcif juan (vitamin D3) 50 mcg (2,000 unit) capsule 01-08 00:00: 00 Yes [id number] Per instruc tions PSULA TODOS LOS D Per instructio ns PSULA TODOS LOS D (route: oral) Med Classific ation: Electroly te Balance-N utritiona l Products cyanocobala min (vit B-12) 100 mcg tablet 01-16 00:00: 00 Yes [id number] Per instruc tions TODOS LOS D Per instructio ns TODOS LOS D (route: oral) Med Classific ation: Electroly te Balance-N utritiona l Products FeroSul 325 mg (65 mg iron) tablet 11-13 00:00: 00 Yes [id number] 325 mg 3 TIMES A WEEK 325 mg 3 TIMES A WEEK (route: oral) Med Classific ation: Electroly te Balance-N utritiona l Products Vitamin C 500 mg chewable tablet 11-13 00:00: 00 Yes [id number] 500 mg 3 TIMES A WEEK 500 [...] AWARENESS FOR SAFETY AND WILL NOTIFY CLINICAL SUPERVISOR FRUIT GRADING AND PHYSICIAN/PROVIDER WITH ANY CHANGE IN CONDITION. [code = SKILLED NURSE WILL MAINTAIN SITUATIONAL AWARENESS FOR SAFETY AND WILL NOTIFY CLINICAL SUPERVISOR FRUIT GRADING AND PHYSICIAN/PROVIDER WITH ANY CHANGE IN CONDITION.] [...] End Date/Time Encounter Type Admission Type Attending [facility] Care Facility Care Department Encounter ID Discharge Date Discharge Status Discharge Condition Discharge Reason Percent Goals Met 2024-11-14 00:00:00 2024-12-08 00:00:00 Outpatient TEE CALIXTO [facility] [id number] 2024-12-08 00:00:00 DISCHARGE TO HOME OR SELF CARE INDEPENDEN T WITH USE OF ASSISTIVE DEVICE NON COMPLIANT WITH PLAN OF TREATMENT 5.88
--- OUTSIDE RECORDS SUMMARY | 2024-12-28 17:25 | XMS_ITS | Clinical Summary ---
Author Organization Unknown Care Team Providers Care Lead Caster Name Role Phone DANIEL JACOBS, SHALONDA Unavailable Unavailable DUANE YODER, TEE Unavailable Unavailable Payers Payer Name Policy Type Policy Number Effective Date Expira tion Date MEDICAID [facility] [id number] Problems Condition Name Condition Details Condition Category [...] UNSPECIFIED SITE Active 5-12 00:00: 00 OTHER RESIDENTIAL (CURRENT) DRUG THERAPY Active 1-15 00:00: 00 RESIDENTIAL (CURRENT) USE OF NON-STEROIDA L NON-INFLAM (NSAID) [...] on aerosol inhaler 01-20 00:00: 00 Yes [id number] Per instruc tions DOS VECES AL D Per instructio ns DOS VECES AL D (route: inhalation ) Med Classific ation: Respirato ry Therapy Agents magnesium oxide 400 mg (241.3 mg magnesium) tablet 01-30 00:00: 00 11-14 00:00 :00 No [id number] Per instruc tions TOME NAIMA TABLETA TODOS LOS D Per instructio ns TOME NAIMA TABLETA TODOS LOS D (route: oral) Med Classific ation: Electroly te Balance-N utritiona l Products buspirone 15 mg tablet 01-16 00:00: 00 Yes [id number] Per instruc tions TOME NAIMA TABLETA CHEMA VECES AL D Per instructio ns TOME NAIMA TABLETA CHEMA VECES AL D (route: oral) Med Classific ation: Central Nervous System Agents melatonin 5 mg tablet 01-30 00:00: 00 Yes [id number] Per instruc tions EVERYDAY AT 5 PM FOR 2 WEEKS THEN MAY INCREASE TO 2 TABS E VERYDAY AT Per instructio ns EVERYDAY AT 5 PM FOR 2 WEEKS THEN MAY INCREASE TO 2 TABS E VERYDAY AT (route: oral) Med Classific ation: Central Nervous System Agents loratadine 10 mg tablet 01-04 00:00: 00 Yes [id number] Per instruc tions TOME NAIMA TABLETA TODOS LOS D Per instructio ns TOME NAIMA TABLETA TODOS LOS D (route: oral) Med Classific ation: Respirato ry Therapy Agents senna 8.6 mg tablet 01-30 00:00: 00 Yes [id number] Per instruc tions TODOS LOS D Per instructio ns TODOS LOS D (route: oral) Med Classific ation: Gastroint estinal Therapy Agents omeprazole 20 mg capsule,del ayed release 01-27 00:00: 00 Yes [id number] Per instruc tions TODOS LOS D Per instructio ns TODOS LOS D (route: oral) Med Classific ation: Gastroint estinal Therapy Agents mirtazapine 45 mg tablet 24 00:00: 00 Yes [id number] Per instruc tions AT BEDTIME DIRECTED Per instructio ns AT BEDTIME DIRECTED (route: oral) Med Classific ation: Central Nervous System Agents famotidine 40 mg tablet 01-30 00:00: 00 11-14 00:00 :00 No [id number] Per instruc tions Per instructio ns (route: oral) Med Classific ation: Gastroint estinal Therapy Agents olanzapine 20 mg tablet 01-30 00:00: 00 Yes [id number] Per instruc tions AT BEDTIME Per instructio ns AT BEDTIME (route: oral) Med Classific ation: Central Nervous System Agents clonazepam 1 mg tablet 01-08 00:00: 00 Yes [id number] Per instruc tions TOME NAIMA TABLETA DOS VECES AL D Per instructio ns TOME NAIMA TABLETA DOS VECES AL D (route: oral) Med Classific ation: Central Nervous System Agents dicyclomine 20 mg tablet 01-08 00:00: 00 Yes [id number] Per instruc tions CUATRO VECES AL D Per instructio ns CUATRO VECES AL D (route: oral) Med Classific ation: Gastroint estinal Therapy Agents amlodipine 2.5 mg tablet 01-19 00:00: 00 11-14 00:00 :00 No [id number] Per instruc tions TOME NAIMA TABLETA TODOS LOS D Per instructio ns TOME NAIMA TABLETA TODOS LOS D (route: oral) Med Classific ation: Cardiovas cular Therapy Agents sertraline 100 mg tablet 17 00:00: 00 Yes [id number] Per instruc tions TODOS LOS D Per instructio ns TODOS LOS D (route: oral) Med Classific ation: Central Nervous System Agents nabumetone 500 mg tablet 01-31 00:00: 00 11-14 00:00 :00 No [id number] Per instruc tions TOME NAIMA TABLETA DOS VECES AL D Per instructio ns TOME NAIMA TABLETA DOS VECES AL D (route: oral) Med Classific ation: Analgesic , Anti-infl ammatory or Antipyret ic amitriptyli ne 50 mg tablet 01-27 00:00: 00 Yes [id number] Per instruc tions TOME NAIMA TABLETA TODOS LOS D AL ACOSTARSE FOR 30 DAYS Per instructio ns TOME NAIMA TABLETA TODOS LOS D AL ACOSTARSE FOR 30 DAYS (route: oral) Med Classific ation: Central Nervous System Agents prazosin 2 mg capsule 01-22 00:00: 00 Yes [id number] Per instruc tions TODOS LOS D Per instructio ns TODOS LOS D (route: oral) Med Classific ation: Cardiovas cular Therapy Agents cholecalcif juan (vitamin D3) 50 mcg (2,000 unit) capsule 01-08 00:00: 00 Yes [id number] Per instruc tions PSULA TODOS LOS D Per instructio ns PSULA TODOS LOS D (route: oral) Med Classific ation: Electroly te Balance-N utritiona l Products cyanocobala min (vit B-12) 100 mcg tablet 01-16 00:00: 00 Yes [id number] Per instruc tions TODOS LOS D Per instructio ns TODOS LOS D (route: oral) Med Classific ation: Electroly te Balance-N utritiona l Products FeroSul 325 mg (65 mg iron) tablet 11-13 00:00: 00 Yes [id number] 325 mg 3 TIMES A WEEK 325 mg 3 TIMES A WEEK (route: oral) Med Classific ation: Electroly te Balance-N utritiona l Products Vitamin C 500 mg chewable tablet 11-13 00:00: 00 Yes [id number] 500 mg 3 TIMES A WEEK 500 [...] AWARENESS FOR SAFETY AND WILL NOTIFY CLINICAL MILLER HELPER AND PHYSICIAN/PROVIDER WITH ANY CHANGE IN CONDITION. [code = SKILLED NURSE WILL MAINTAIN SITUATIONAL AWARENESS FOR SAFETY AND WILL NOTIFY CLINICAL MILLER HELPER AND PHYSICIAN/PROVIDER WITH ANY CHANGE IN CONDITION.] Goal Patient Goal - T O FEEL HAPPY AND NOT BE TIRED ALL THE TIME. Goal Provider Goal - A PLAN OF CARE WILL BE ESTABLISHED THAT MEETS PATIENT'S PRISON NEEDS AND INCLUDES PATIENT GOAL FOR HOME [...] Date/Time Encounter Type Admission Type Attending [facility] Care Facility Care Department Encounter ID Discharge Date Discharge Status Discharge Condition Discharge Reason Percent Goals Met 2024-11-14 00:00:00 2024-12-08 00:00:00 Outpatient TEE CALIXTO [facility] [id number] 2024-12-08 00:00:00 DISCHARGE TO HOME OR SELF CARE INDEPENDEN T WITH USE OF ASSISTIVE DEVICE NON COMPLIANT WITH PLAN OF TREATMENT 5.88
--- OUTSIDE RECORDS SUMMARY | 2024-12-28 17:25 | XMS_ITS | Encounter Summary ---
Author Organization [facility] Address [address] [place] [address] [address] [place] [address] Care Team Providers Care Product Demonstrator Name Role Phone Umm Coley MD Primary Care Provider + Encounter Details Date Type Department Care Team (Latest Contact Info) Description 11/23/2020 Abstract [facility] CONVERSIONS Dental, Provider, DDS Social History Tobacco [...] Description 02/03/2025 2:00 PM EDT Office Visit [facility] MEDICINE [address] [place] [address] Darrell Myers MD [address] [place] [address] 03/08/2025 10:00 AM EDT Office Visit [facility] ADULT DENTAL [address] [place] [address] Trino Ruffaris [address] [place] [address] documented as of this encounter Visit Diagnoses Not on filedocumented in this encounter Care Teams Product Demonstrator Relationship Specialty Start Date End Date Umm Coley MD [address] [place] [address] PCP - General Family Medicine 10/31/16 Eva Nunez Shop Worker 04/05/24 07/06/24 [facility] 05/11/24 11/17/24 [facility] 11/14/24 documented as of this encounter
--- OUTSIDE RECORDS SUMMARY | 2024-12-28 17:25 | XMS_ITS | Clinical Summary ---
Author Organization [employer] Address [address] [place] [address] 7[address] [place] [address] Care Team Providers Care Bacteriologist Soil Name Role Phone Shalonda Coley MD Primary [...] regarding medication management by current VNA services ([facility]). I asked her if she wants [...] continue f/u with mental health provider in [facility]. Dry eye 05/16/2024 Assessment & Plan [...] She was referred to vestibular therapy at [facility], information given to pt to schedule [...] write a complaint to the landlord, building health administrator, and housing department. I gave them information about real estate legal secretary in the [place] [address] Will refer to administrator health care facility to assist with housing due to poor conditions of current apartment Pt already has a letter from counselor, will FU at next appointment Household circumstance affecting care 02/03/2023 Assessment & Plan (12/11/2023 9:49 AM EST): Pt has depression and difficulty with memory. She has a VACCINATOR and a VNA to manage med, pharma education. VNA can go a few times per week once a POC has been discussed and taught to pt's caregivers Assessment & Plan (04/02/2023 2:38 PM EDT): Pt continues to live in the same apartment with anxiety from recent of her neighbor. Already in contact with [facility] and team is helping her with letters for housing Assessment & Plan (02/26/2023 1:12 PM EDT): Pt lives alone, I will advise to move out to a different apartment due to increased anxiety with household circumstance Refer to [facility] Assessment & Plan (02/03/2023 2:23 [...] EST): Pt seen psychotherapist and psychiatry at [facility], needs medication management due to Hx of SA and non-compliance. No change in medications, needs to continue medication administration by VNA and keep in a lock box, pharmical education, and prevention of hospital admissions. I will call [facility] gabriela at pt's request to transfer VNA services. Assessment & Plan (02/02/2024 3:44 PM EDT): - Medication list reconciled and discussed with patient, meds are to be administered by VNA due to memory issues, risk of poor compliance. - She will continue close follow up with [facility] Psych. I explained to patient that [...] Plan (02/26/2023 1:11 PM EDT): Pt seeing [facility] MH team every week. I counseled [...] we can organize the medications. Pt and VACCINATOR agreed with the plan of care. 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 Assessment & Plan (04/28/2024 3:33 PM EDT): [...] (04/28/2024 5:25 PM EDT): Pt seen by [facility] clinician, continue psychotherapy every week. She [...] she needs pharmaco education. She's followed by [facility] psych. I told her and VACCINATOR she needs to bring all her med bottles so we can go over her meds until the new VNA service is restarted. Her VACCINATOR is helping her as well as her daughter With meds for now. Pt feels safe. Will send new Rx if needed with prescription in mont[place]gr[place] so VNA can read it (one of the issues being that med rx were written in Barbadian and the VNA that took over didn't understand the directions). Will check with VNA service to see what current situation is, pt wants to start using a new VNA service (the one her neighbor uses, [facility] [place] based) . Contusion of knee 02/16/2018 Motor [...] Plan (05/02/2024 5:56 PM EDT): -Followed by [facility] - last available consult note [...] has to reschedule pharmacological stress test in [facility] dc amlodipine and flexeril and take [...] Type Department Care Team Description 12/28/2024 Telephone [facility] [address] [facility] [place] [address] Shalonda Coely MD 12/28/2024 Patient Outreach [facility] [address] [facility] [place] [address] Shalonda Coley MD Care Coordination (C3 -[facility] Shannan Covington telephone call outreach) 12/28/2024 Patient Outreach [facility] [address] [place] [address] Shalonda Coley MD 12/28/2024 Telephone [facility] [address] [place] [address] Shalonda Coley MD Medication List 12/28/2024 Telephone [facility] [address] [place] [address] Shalonda Coley MD Care Management ([id number]-[id number] review) 12/27/2024 1:00 PM EST Office Visit [address] [place] [address] Shalonda Coley MD Encounter for monitoring of patient compliance in drug treatment program (Primary Dx); Intercostal pain 12/27/2024 Travel 12/26/2024 Telephone [facility] [address] [place] [address] Shalonda Coley MD ED f/u call 12/26/2024 Telephone [facility] [address] [place] [address] Shalonda Coley MD Appointment Request 12/23/2024 Telephone [facility] [address] [place] [address] Shalonda Coley MD Chart prep 12/22/2024 Telephone [facility] [address] [place] [address] Shalonda Coley MD Appointment Request 12/20/2024 Telephone [facility] [address] [place] [address] Shalonda Coley MD Call Back Request 12/13/2024 Telephone [facility] [address] [place] [phone] Shalonda Coley MD PCP Contact (Medbox set up.) 12/09/2024 Travel 12/08/2024 12:15 PM EST Office Visit [facility] [place] [address] Shalonda Coley MD Recurrent falls (Primary Dx); Neuropathy of both feet; Generalized anxiety disorder 12/08/2024 Telephone [facility] [place] [address] Gisela Reynoso RN VNA services 12/08/2024 Travel 12/08/[address] [address] Shalonda Coley MD FYI. 12/07/[address] [address] Juana Connor MA Chart prep 12/05/[address] [address] Shalonda Coley MD Appointment Request 11/29/2024 Orders Only [address] [address] Shalonda Coley MD 11/10/2024 12:15 PM EST Office Visit [facility] [place] [address] Shalonda Coley MD Generalized anxiety disorder (Primary Dx); Mild persistent asthmatic bronchitis without complication; Encounter for immunization 11/10/[address] [address] Gisela Reynoso RN VNA agency switch 11/10/2024 Travel 11/09/[address] [address] Shalonda Coley MD Chart prep 10/24/[address] [address] Shalonda Coley MD Request For Order(s) 10/24/[address] [address] Shalonda Coley MD VNA Switch 10/14/2024 2:30 PM EST Office Visit [facility] [address] [place] [address] Johnny Gonzalez DMD Defective dental jehovah's witness (Primary Dx); Dental caries; History of root canal procedure 10/13/2024 Telephone [facility] [address] [place] [address] Shalonda Coley MD FYI 10/10/[address] [phone] Shalonda Coley MD Stable Imaging Letter 09/27/[address] [phone] Shalonda Coley MD Med Refill from Last [...] Description 02/03/2025 2:00 PM EDT Office Visit [facility] [address] [place] [address] Darrell Myers MD [address] [employer], [place] [phone] 03/08/2025 10:00 AM EDT Office Visit [facility] [address] [place], [place] [phone] Elzbieta, Mariangel [address] [place], [place] [phone] Health Maintenance Due Date Last Done Comments [...] Mouth 03/14/2025 03/13/2022 Depression Screening 06/10/2025 06/10/2024, 08/09/20 24 DTaP/Tdap/Td Vaccines (2 - Td or [...] Routine 10/14/2024 2:30 PM EST Defective dental jehovah's witness Dental caries History of root canal procedure 12 DO RESIN-BASED COMPOSITE - 2 SURF, POSTERIOR Routine 10/14/2024 2:30 PM EST Dental caries 10 MIFL RESIN-BASED COMPOSITE - 4 OR MORE SURFACES (ANTERIOR) Routine 10/14/2024 2:30 PM EST Defective dental jehovah's witness 13 CORE BUILDUP, INCL ANY PINS WHEN [...] PM EST Narrative 12/27/2024 2:35 PM EST ?[facility] ?[address] ?[place] [address] ?XRay Report ? Signed ? Patient: Myles,Diana L ?MR#: [id number] ?? 8 ? : 1965 ?Acct:[id number] ? Age/Sex: 59 / F ?ADM Date: 12/27/24 ? Loc: HO.HHCX ? Attending Dr: Shalonda Coley MD ? Ordering Physician: Shalonda Coley MD ?? Date of Service: 12/27/24 ?? Procedure(s): XR ribs RT 2V ?? Accession Number(s): [id number] ? cc: Shalonda Coley MD ? EXAMINATION: [...] DD/ 1356 ? TD/TT: 12/27/24 1424 ? Truck Driver Instructor: ? Procedure Note Donmiguelter, Image - 12/27/[address] [address] XRay Report Signed Patient: Diana Myles LMR#: [id number] 8 : 1965Acct:[id number] Age/Sex: 59 / FADM Date: 12/27/24 Loc: HO.HHCX Attending Dr: Shalonda Coley MD Ordering Physician: Shalonda Coley MD Date of Service: 12/27/24 Procedure(s): XR ribs RT 2V Accession Number(s): [id number] cc: Shalonda Coley MD EXAMINATION: XR CHEST [...] 12/27/24 1433 DD/ 1356 TD/TT: 12/27/24 1424 Truck Driver Instructor: us Shalonda Coley MD IMG XR PROCEDURES Final Result * XR Chest 2 Views (12/27/2024 1:56 PM EST) Only the most recent of2 resultswithin the time period is included. Anatomical Region Laterality Modality Chest Radiographic Kyleigh ging 12/27/2024 1:56 PM EST Narrative 12/27/2024 2:36 PM EST ?[facility] ?[address] ?[place] [address] ?XRay Report ? Signed ? Patient: Myles,Diana L ?MR#: [id number] ?? 8 ? : 1965 ?Acct:[id number] ? Age/Sex: 59 / F ?ADM Date: 12/27/24 ? Loc: HO.HHCX ? Attending Dr: Shalonda Coley MD ? Ordering Physician: Shalonda Coley MD ?? Date of Service: 12/27/24 ?? Procedure(s): XR chest 2V ?? Accession Number(s): [id number] ? cc: Shalonda Coley MD ? EXAMINATION: [...] MD in OV> ?12/27/24 1433 ? DD/ 6756 ? TD/TT: 12/27/24 1424 ? Truck Driver Instructor: ? Procedure Note Donotuseinterpreter, Image - 12/27/[address] [address] XRay Report Signed Patient: Diana Myles LMR#: [id number] 8 : 1965Acct:[id number] Age/Sex: 59 / FADM Date: 12/27/24 Loc: HO.HHCX Attending Dr: Shalonda Coley MD Ordering Physician: Shalonda Coley MD Date of Service: 12/27/24 Procedure(s): XR chest 2V Accession Number(s): [id number] cc: Shalonda Coley MD EXAMINATION: XR CHEST [...] 12/27/24 1433 DD/ 1356 TD/TT: 12/27/24 1424 Truck Driver Instructor: Shalonda Coley MD IMG XR PROCEDURES Final Result * XR HAND WRIST RT (12/23/2024 6:57 PM EST) Only the most recent of2 resultswithin the time period is included. Anatomical Region Laterality Modality Abdomen Radiographic Kyleigh ging 12/23/2024 6:57 PM EST Narrative 12/23/2024 6:59 PM EST ? [facility] ?[address] ?[place] [address] ?XRay Report ? Signed ? Patient: Myles,Diana L ?MR#: [id number] ?? 8 ? : 1965 ?Acct:[id number] ? Age/Sex: 59 / F ?ADM Date: 12/23/24 ? Loc: HO.ED ? Attending Dr: ? Ordering Physician: Diomedes Shultz ?? Date of Service: 12/23/24 ?? Procedure(s): XR hand wrist RT ?? Accession Number(s): [id number] ? cc: Diomedes Shultz; Shalonda Coley MD [...] ? DD/ 56 ? TD/TT: 12/23/241856 ? Truck Driver Instructor: ? Procedure Note Chin Diana - 12/23/[address] [address] XRay Report Signed Patient: Diana Myles LMR#: [id number] 8 : 1965Acct:[id number] Age/Sex: 59 / FADM Date: 12/23/24 Loc: HO.ED Attending Dr: Ordering Physician: Diomedes Shultz Date of Service: 12/23/24 Procedure(s): XR hand wrist RT Accession Number(s): [id number] cc: Diomedes Shultz; Shalonda Coley MD CLINICAL [...] signed by Nawaf Anglin MD in OV> 12/23/248 DD/ 56 TD/TT: 12/23/241856 Truck Driver Instructor: [facility] External Provider IMG XR PROCEDURES Final Result * CT Head w/o Contrast (12/23/2024 4:42 PM EST) Anatomical Region Laterality Modality Head, Neck Computed Tomogra phy 12/23/2024 4:42 PM EST Narrative 12/23/2024 4:54 PM EST ? [facility] ?[address] ?[place] [address] ? CT Scan Report ? Signed ? Patient: Myles,Diana L ?MR#: [id number] ?? 8 ? : 1965 ?Acct:[id number] ? Age/Sex: 59 / F ?ADM Date: 02/21/25 ? Loc: HO.ED ? Attending Dr: ? Ordering Physician: Diomedes Shultz ?? Date of Service: 12/23/24 ?? Procedure(s): CT head/brain wo IV con ?? Accession Number(s): [id number] ? cc: Diomedes Shultz; Shalonda Coley MD ? Report Number: ?? [id number]: Total DLP = ??821.00 mGy-cm ?? EXAMINATION: [...] MD in OV> ?12/23/24 1651 ? DD/ 41 ? TD/TT: 12/23/241641 ? Truck Driver Instructor: ? Procedure Note Adalgisa, Image - 12/23/[address] [address] [address] Scan Report Signed Patient: Diana Myles LMR#: [id number] 8 : 1965Acct:[id number] Age/Sex: 59 / FADM Date: 12/23/24 Loc: HO.ED Attending Dr: Ordering Physician: Diomedes Shultz Date of Service: 12/23/24 Procedure(s): CT head/brain wo IV con Accession Number(s): [id number] cc: Diomedes Shultz; Shalonda Coley MD Report Number: [id number]: Total DLP = 821.00 mGy-cm EXAMINATION: CT [...] by: Mathieu Lepe MD 12/23/2024 04:51 PM [facility] Dictated By: Mathieu Lepe MD Signed By: <Electronically signed by Mathieu Lepe MD in OV> 12/23/24 1651 DD/ 1642 TD/TT: 12/23/24 1642 Truck Driver Instructor: [facility] External Provider IMG CT PROCEDURES Final Result * CT Cervical Spine w/o Contrast (12/23/2024 3:29 PM EST) Anatomical Region Laterality Modality Spine, C-spine Computed Tomogra phy 12/23/2024 3:29 PM EST Narrative 12/23/2024 4:57 PM EST ? [facility] ?[address] ?[place] [address] ? CT Scan Report ? Signed ? Patient: Myles,Diana L ?MR#: [id number] ?? 8 ? : 1965 ?Acct:[id number] ? Age/Sex: 59 / F ?ADM Date: 12/23/24 ? Loc: HO.ED ? Attending Dr: ? Ordering Physician: Diomedes Shultz ?? Date of Service: 12/23/24 ?? Procedure(s): CT cervical spine wo IV con ?? Accession Number(s): [id number] ? cc: Diomedes Shultz; Shalonda Coley MD ? Report Number: ?? [id number]: Total DLP = ??821.00 mGy-cm ?? EXAMINATION: [...] DD/ 1529 ? TD/TT: 12/23/24 1642 ? Truck Driver Instructor: ? Procedure Note Chin Diana - 12/23/[address] [place] [address] [address] Scan Report Signed Patient: Diana Myles LMR#: [id number] 8 : 1965Acct:[id number] Age/Sex: 59 / FADM Date: 12/23/24 Loc: HO.ED Attending Dr: Ordering Physician: Diomedes Shultz Date of Service: 12/23/24 Procedure(s): CT cervical spine wo IV con Accession Number(s): [id number] cc: Diomedes Shultz; Shalonda Coley MD Report Number: [id number]: Total DLP = 821.00 mGy-cm EXAMINATION: CT [...] 12/23/24 1654 DD/ 1529 TD/TT: 12/23/24 1642 Truck Driver Instructor: [facility] External Provider IMG CT PROCEDURES Final Result * XR Shoulder 2+ Views Right (12/23/2024 3:09 PM EST) Anatomical Region Laterality Modality Upper Extremities, Shoulder Right Radi ographic Imaging 12/23/2024 3:09 PM EST Narrative 12/23/2024 3:43 PM EST ? [facility] ?[address] ?[place] [address] ?XRay Report ? Signed ? Patient: Myles,Diana L ?MR#: [id number] ?? 8 ? : 1965 ?Acct:[id number] ? Age/Sex: 59 / F ?ADM Date: 02/21/25 ? Loc: HO.ED ? Attending Dr: ? Ordering Physician: Diomedes Shultz ?? Date of Service: 12/23/24 ?? Procedure(s): XR shoulder RT min 2V ?? Accession Number(s): [id number] ? cc: Diomedes Shultz; Shalonda Coley MD [...] DD/ 1509 ? TD/TT: 12/23/24 1533 ? Truck Driver Instructor: ? Procedure Note Adalgisa, Chin - 12/23/2024 [place] [address] XRay Report Signed Patient: Diana Myles LMR#: [id number] 8 : 1965Acct:[id number] Age/Sex: 59 / FADM Date: 12/23/24 Loc: HO.ED Attending Dr: Ordering Physician: Diomedes Shultz Date of Service: 12/23/24 Procedure(s): XR shoulder RT min 2V Accession Number(s): [id number] cc: Diomedes Shultz; Shalonda Coley MD EXAMINATION: [...] 12/23/24 1540 DD/ 1509 TD/TT: 12/23/24 1533 Truck Driver Instructor: [facility] External Provider IMG XR PROCEDURES Final Result * XR Hips Bilateral with Pelvis 1 view (12/23/2024 2:57 PM EST) Anatomical Region Laterality Modality Lower Extremities, Hip Bilateral Radiograp hic Imaging 12/23/2024 2:57 PM EST Narrative 12/23/2024 3:45 PM EST ? [facility] ?[address] ?[place] [address] ?XRay Report ? Signed ? Patient: Myles,Diana L ?MR#: [id number] ?? 8 ? : 1965 ?Acct:[id number] ? Age/Sex: 59 / F ?ADM Date: 12/23/24 ? Loc: HO.ED ? Attending Dr: ? Ordering Physician: Diomedes Shultz ?? Date of Service: 12/23/24 ?? Procedure(s): XR hip BI w PEL1V ?? Accession Number(s): [id number] ? cc: Diomedes Shultz; Shalonda Coley MD [...] DD/ 1457 ? TD/TT: 12/23/24 1533 ? Truck Driver Instructor: ? Procedure Note Adalgisa, Chin - 12/23/[address] [address] XRay Report Signed Patient: Diana Myles LMR#: [id number] 8 : 1965Acct:[id number] Age/Sex: 59 / FADM Date: 12/23/24 Loc: HO.ED Attending Dr: Ordering Physician: Diomedes Shultz Date of Service: 12/23/24 Procedure(s): XR hip BI w PEL1V Accession Number(s): [id number] cc: Diomedes Shultz; Shalonda Coley MD EXAMINATION: [...] Steven Coreas MD 12/23/2024 03:43 PM EST Dictated By: Steven Gan MD Signed By: <Electronically signed by Steven Gary MDin OV> 12/23/24 1543 DD/ 1457 TD/TT: 12/23/24 1533 Truck Driver Instructor: us [facility] External Provider IMG XR PROCEDURES Final Result * XR Knee 4+ Views Right (12/23/2024 2:57 PM EST) Anatomical Region Laterality Modality Lower Extremities, Knee Right Radiogra phic Imaging 12/23/2024 2:57 PM EST Narrative 12/23/2024 3:44 PM EST ? [facility] ?[address] ?[place] [address] ?XRay Report ? Signed ? Patient: Myles,Diana L ?MR#: [id number] ?? 8 ? : 1965 ?Acct:[id number] ? Age/Sex: 59 / F ?ADM Date: 12/23/24 ? Loc: HO.ED ? Attending Dr: ? Ordering Physician: Diomedes Shultz ?? Date of Service: 12/23/24 ?? Procedure(s): XR knee RT 4V ?? Accession Number(s): [id number] ? cc: Diomedes Shultz; Shalonda Coley MD [...] DD/ 1457 ? TD/TT: 12/23/24 1533 ? Truck Driver Instructor: ? Procedure Note Chin Diana - 12/23/[address] [address] XRay Report Signed Patient: Diana Myles LMR#: [id number] 8 : 1965Acct:[id number] Age/Sex: 59 / FADM Date: 12/23/24 Loc: HO.ED Attending Dr: Ordering Physician: Diomedes Shultz Date of Service: 12/23/24 Procedure(s): XR knee RT 4V Accession Number(s): [id number] cc: Diomedes Shultz; Shalonda Coley MD EXAMINATION: [...] 12/23/24 1541 DD/ 1457 TD/TT: 12/23/24 1533 Truck Driver Instructor: [facility] External Provider IMG XR PROCEDURES Final Result * MR Knee w/o Contrast Left (12/06/2024 6:06 PM EST) Anatomical Region Laterality Modality Magnetic Resonan ce 12/06/2024 6:06 PM EST Narrative 12/08/2024 8:31 AM EST ? [facility] ?[address] ?[place] [address] ? Magnetic Resonance Report ? Signed ? Patient: Myles,Diana L ?MR#: [id number] ?? 8 ? : 1965 ?Acct:[id number] ? Age/Sex: 59 / F ?ADM Date: 02/04/25 ? Loc: HO.MRI ? Attending Dr: Denilson Forman PA-C ? Ordering Physician: Denilson Forman PA-C ?? Date of Service: 12/06/24 ?? Procedure(s): MR knee LT wo con ?? Accession Number(s): [id number] ? cc: Shalonda Coley MD; Denilson Forman [...] DD/ 1806 ? TD/TT: 12/06/24 181 ? Truck Driver Instructor: ? Procedure Note Adalgisa, Chin - 12/08/2024 [place] [address] Magnetic Resonance Report Signed Patient: Diana Myles LMR#: [id number] 8 : 1965Acct:[id number] Age/Sex: 59 / FADM Date: 12/06/24 Loc: HO.MRI Attending Dr: Denilson Forman PA-C Ordering Physician: Denilson Forman PA-C Date of Service: 12/06/24 Procedure(s): MR knee LT wo con Accession Number(s): [id number] cc: Shalonda Coley MD; Denilson Forman PA-C [...] 12/08/24 0829 DD/ 1806 TD/TT: 12/06/24 1817 Truck Driver Instructor: [facility] External Provider IMG MRI PROCEDURES Final Result * BI Mammogram Screening Tomosynthesis Bilateral (11/29/2024 8:45 AM EST) Anatomical Region Laterality Modality Breast Bilateral Mammography 11/29/2024 8:45 AM EST Narrative 12/07/2024 3:35 PM EST ? [facility] ? [address] ?[place] [address] ? Mammography Report ? Signed ? Patient: Myles,Diana L ?MR#: [id number] ?? 8 ? : 1965 ?Acct:[id number] ? Age/Sex: 59 / F ?ADM Date: 11/29/24 ? Loc: HO.MAMMO ? Attending Dr: Shalonda Coley MD ? Ordering Physician: Shalonda Coley MD ?Results: 2Be ?? nign Findings ? Date of Service: 11/29/24 ?Follow Up: 1 Year From Orig ?? inal Mammogram ? Procedure(s): MM tomosynthesis screening BI ?? Accession Number(s): [id number] ? cc: Shalonda Coley MD ? EXAMINATION: [...] DD/ 0845 ? TD/TT: 11/29/24 0915 ? Truck Driver Instructor: ? Procedure Note Donkatelynjadenclaudiater, Image - 12/07/2024 [place] [facility] [address] [place] [address] Mammography Report Signed Patient: Diana Myles LMR#: [id number] 8 : 1965Acct:[id number] Age/Sex: 59 / FADM Date: 11/29/24 Loc: HO.MAMMO Attending Dr: Shalonda Coley MD Ordering Physician: Shalonda Coley MDResults: 2Be nign Findings Date of Service: 11/29/24Follow Up: 1 Year From Orig inal Mammogram Procedure(s): MM tomosynthesis screening BI Accession Number(s): [id number] cc: Shalonda Coley MD EXAMINATION: MM SCREENING [...] 12/07/24 1532 DD/ 0845 TD/TT: 11/29/24 0915 Truck Driver Instructor: Shalonda Coley MD IMG BI PROCEDURES Edited Result - Final * POCT Rapid RSV ROJAS ID NOW (11/10/2024 2:01 PM EST) RSV Rapid Ag POC Negative Negative Swab 11/10/2024 2:01 PM EST Shalonda Coley MD POINT OF CARE TEST ENTER /EDIT ORDERABLES Final Result * POCT Rapid Influenza B ROJAS ID NOW (11/10/2024 2:01 PM EST) Influenza B Negative Negative, Indeterminate [facility] Swab 11/10/2024 2:01 PM EST Shalonda Coley MD POINT OF CARE TEST ENTER /EDIT ORDERABLES Final Result [facility] [address] [place] [phone] * POCT Rapid Influenza A ROJAS ID NOW (11/10/2024 2:01 PM EST) [facility] Influenza A Negative Negative, Indeterminate [facility] Swab 11/10/2024 2:01 PM EST Shalonda Coley MD POINT OF CARE TEST ENTER /EDIT ORDERABLES Final Result Performing Organization Address City/[facility]/ZIP Co de Phone Number [facility] [address] [place] [address] [phone] * POCT Rapid Covid-19 BinaxNOW (11/10/2024 2:01 PM EST) [facility] Rapid COVID Ag Negative Swab 11/10/2024 2:01 PM EST Result [facility] Shalonda Coley MD POINT OF CARE TEST ENTER /EDIT ORDERABLES Final Result * (ABNORMAL) Hm Colonoscopy (07/30/2023) [facility] Colonoscopy Abnormal( A) Normal [facility] Comment:SSL polyp Result [facility] Shalonda Coley MD HEALTH MAINTENANCE Final Result Performing Organization Address [facility] Co de Phone Number [facility] [address] [place] [phone] * Thinprep PAP and HPV nRNA E6/E7 (10/08/2022 9:30 AM EST) [facility] Clinical Information: None given [facility] LMP: NONE GIVEN [facility] Prev. PAP: NONE GIVEN [facility] Prev. BX: NONE GIVEN [facility] SOURCE: None given [facility] Statement Of Adequacy: SATISFACTORY FOR EVALUATION Age and/or menstrual status not provided [facility] Interpretation/Re sult: [facility] Comment: Negative for intraepithelial lesion or malignancy. Atrophic pattern; predominantly parabasal cells Regulatory Agency Director: [employer] [place] [employer] Comment: DMM, CT(ASCP) CT screening location: [address] ??[address] Review Regulatory Agency Director: [employer] [place] [employer] Comment: MAA, CT(ASCP) CT screening location: [address] ??[address] (Always Message) [employer] Comment: EXPLANATORY NOTE: The Pap is a [...] HPV nRNA E6/E7 Not Detected Not Detected [employer] Comment: Methodology: Experimental Mechanic-Mediated Amplification This assay detects E6/E7 viral messenger RNA (mRNA) from 14 high-risk HPV types (16,18,31,33,35,39,45,51,52,56,58,59,66,68). Cervical sources are required for HPV testing. If a vaginal source from a patient who has had a total hysterectomy with removal of cervix was submitted, please contact the testing laboratory for alternative testing options. For additional information, please refer to http://education.[employer]/faq/ZMO018g5 (This link if provided for information/ educational purposes only.) 10/08/2022 9:30 AM EST 10/10/2022 1:07 AM EST Narrative [facility] - 10/14/2022 7:08 PM EST FASTING: UNKNOWN [facility] PATHOLOGY ORDERABLES Final Result [address], [place] [address] [employer] [place] [employer] [address], [place] [address] * HIV AB/AG (04/30/2022 11:28 AM EDT) HIV AB/AG Nonreactive Nonreactive [facility] Comment: HIV-1 p24 Ag and/or [...] detection of this assay. ?? The [facility] Director Compliance HIV Ag/Ab Combo assay result and supplemental [...] Result [facility] [address] from Last 3 Months or Most Recently Relevant to Health Maintenance Insurance [facility] C[place] C3 DENTAL-[facility] MEDICAID STAND ADULT Care Teams Bacteriologist Soil Relationship Specialty Start Date End Date Shalonda Coley MD [address] [place] [address] PCP - General Family Medicine 10/31/16 Mir Almonte 11/14/24
--- OUTSIDE RECORDS SUMMARY | 2024-12-28 17:25 | XMS_ITS | Encounter Summary ---
Author Organization [employer] Address [address] [facility] 7t [place] [address] Care Team Providers Care Farm Boss Name Role Phone Umm Coley MD Primary Care Provider + Encounter Details Date Type Department Care Team (Late st Contact Info) Description 11/29/2024 Orders Only [facility] [address] [place], [place] [phone] Umm Coley MD [address] [place], [place] [phone] Social History Tobacco Use Types Packs/Day Years [...] Description 02/03/2025 2:00 PM EDT Office Visit [facility] [address] [place] [address] Darrell Myers MD [address] [place] [address] 03/08/2025 10:00 AM EDT Office Visit [facility] ADULT DENT[facility] [address] [place] [address] Trino Ruffaris [address] [place] [address] documented as of this encounter Procedures Procedure [...] EST Narrative 12/23/2024 6:59 PM EST ? [facility] ?[address] ?[place] [address] ?XRay Report ? Signed ? Patient: Myles,Diana L ?MR#: [id number] ?? 8 ? : 1965 ?Acct:[id number] ? Age/Sex: 59 / F ?ADM Date: 12/23/24 ? Loc: HO.ED ? Attending Dr: ? Ordering Physician: Diomedes Shultz ?? Date of Service: 12/23/24 ?? Procedure(s): XR hand wrist RT ?? Accession Number(s): [id number] ? cc: Diomedes Shultz; Umm Coley MD [...] by Nawaf Anglin MD in OV> ? 12/23/248 ? DD/ 56 ? TD/TT: 12/23/241856 ? Automotive Design Drafter: ? Procedure Note Adalgisa, Image - 12/23/[address] [address] XRay Report Signed Patient: Diana Myles LMR#: [id number] 8 : 1965Acct:[id number] Age/Sex: 59 / FADM Date: 12/23/24 Loc: HO.ED Attending Dr: Ordering Physician: Diomedes Shultz Date of Service: 12/23/24 Procedure(s): XR hand wrist RT Accession Number(s): [id number] cc: Diomedes Shultz; Umm Coley MD CLINICAL [...] in OV> 12/23/241857 DD/ 56 TD/TT: 12/23/241856 Automotive Design Drafter: [facility] External Provider IMG XR PROCEDURES Final Result * CT Head w/o Contrast (12/23/2024 4:42 PM EST) Anatomical Region Laterality Modality Head, Neck Computed Tomogra phy 12/23/2024 4:42 PM EST Narrative 12/23/2024 4:54 PM EST ? [facility] ?[address] ?[place] [address] ? CT Scan Report ? Signed ? Patient: Myles,Diana L ?MR#: [id number] ?? 8 ? : 1965 ?Acct:[id number] ? Age/Sex: 59 / F ?ADM Date: 12/23/24 ? Loc: HO.ED ? Attending Dr: ? Ordering Physician: Diomedes Shultz ?? Date of Service: 12/23/24 ?? Procedure(s): CT head/brain wo IV con ?? Accession Number(s): [id number] ? cc: Diomedes Shultz; Umm Coley MD ? Report Number: ?? [id number]: Total DLP = ??821.00 mGy-cm ?? EXAMINATION: [...] DD/ 1642 ? TD/TT: 12/23/24 1642 ? Automotive Design Drafter: ? Procedure Note Donotuseinterpreter, Image - 12/23/[address] [place] [address] [address] Scan Report Signed Patient: Diana Myles LMR#: [id number] 8 : 1965Acct:[id number] Age/Sex: 59 / FADM Date: 12/23/24 Loc: HO.ED Attending Dr: Ordering Physician: Diomedes Shultz Date of Service: 12/23/24 Procedure(s): CT head/brain wo IV con Accession Number(s): [id number] cc: Diomedes Shultz; Umm Coley MD Report Number: [id number]: Total DLP = 821.00 mGy-cm EXAMINATION: CT [...] 12/23/24 1651 DD/ 1642 TD/TT: 12/23/24 1642 Automotive Design Drafter: [facility] External Provider IMG CT PROCEDURES Final Result * CT Cervical Spine w/o Contrast (12/23/2024 3:29 PM EST) Anatomical Region Laterality Modality Spine, C-spine Computed Tomogra phy 12/23/2024 3:29 PM EST Narrative 12/23/2024 4:57 PM EST ? [facility] ?[address] ?[place] [address] ? CT Scan Report ? Signed ? Patient: Shar,Diana L ?MR#: [id number] ?? 8 ? : 1965 ?Acct:[id number] ? Age/Sex: 59 / F ?ADM Date: 12/23/24 ? Loc: HO.ED ? Attending Dr: ? Ordering Physician: Diomedes Shultz ?? Date of Service: 12/23/24 ?? Procedure(s): CT cervical spine wo IV con ?? Accession Number(s): [id number] ? cc: Diomedes Shultz; Umm Coley MD ? Report Number: ?? [id number]: Total DLP = ??821.00 mGy-cm ?? EXAMINATION: [...] MD ??12/23/2024 04:54 PM EST RP ?? [id number] ? Dictated By: ?Mathieu Lepe MD ? Signed By: ?<Electronically signed by Mathieu Lepe MD in OV> ?12/23/24 1654 ? DD/ 1529 ? TD/TT: 12/23/24 1642 ? Automotive Design Drafter: ? Procedure Note Chin Diana - 12/23/[address] [address] [address] Scan Report Signed Patient: Diana Myles LMR#: [id number] 8 : 1965Acct:[id number] Age/Sex: 59 / FADM Date: 12/23/24 Loc: HO.ED Attending Dr: Ordering Physician: Diomedes Shultz Date of Service: 12/23/24 Procedure(s): CT cervical spine wo IV con Accession Number(s): [id number] cc: Diomedes Shultz; Umm Coley MD Report Number: [id number]: Total DLP = 821.00 mGy-cm EXAMINATION: CT [...] by: Mathieu Lepe MD 12/23/2024 04:54 PM [facility] Dictated By: Mathieu Lepe MD Signed By: <Electronically signed by Mathieu Lepe MD in OV> 12/23/24 1654 DD/ 1529 TD/TT: 12/23/24 1642 Automotive Design Drafter: [facility] External Provider IMG CT PROCEDURES Final Result * XR Shoulder 2+ Views Right (12/23/2024 3:09 PM EST) Anatomical Region Laterality Modality Upper Extremities, Shoulder Right Radi ographic Imaging 12/23/2024 3:09 PM EST Narrative 12/23/2024 3:43 PM EST ? [facility] ?[address] ?[place] [address] ?XRay Report ? Signed ? Patient: Myles,Diana L ?MR#: [id number] ?? 8 ? : 1965 ?Acct:[id number] ? Age/Sex: 59 / F ?ADM Date: 12/23/24 ? Loc: HO.ED ? Attending Dr: ? Ordering Physician: Diomedes Shultz ?? Date of Service: 12/23/24 ?? Procedure(s): XR shoulder RT min 2V ?? Accession Number(s): [id number] ? cc: Diomedes Shultz; Umm Coley MD [...] DD/ 1509 ? TD/TT: 12/23/24 1533 ? Automotive Design Drafter: ? Procedure Note Chin Diana - 12/23/[address] [address] XRay Report Signed Patient: Diana Myles LMR#: [id number] 8 : 1965Acct:[id number] Age/Sex: 59 / FADM Date: 12/23/24 Loc: HO.ED Attending Dr: Ordering Physician: Diomedes Shultz Date of Service: 12/23/24 Procedure(s): XR shoulder RT min 2V Accession Number(s): [id number] cc: Diomedes Shultz; Umm Coley MD EXAMINATION: [...] 12/23/24 1540 DD/ 1509 TD/TT: 12/23/24 1533 Automotive Design Drafter: [facility] External Provider IMG XR PROCEDURES Final Result * XR HAND WRIST RT (12/23/2024 2:57 PM EST) Anatomical Region Laterality Modality Abdomen Radiographic Kyleigh ging 12/23/2024 2:57 PM EST Narrative 12/23/2024 3:49 PM EST ? [facility] ?[address] ?[place] [address] ?XRay Report ? Signed ? Patient: Myles,Diana L ?MR#: [id number] ?? 8 ? : 1965 ?Acct:[id number] ? Age/Sex: 59 / F ?ADM Date: 02/21/25 ? Loc: HO.ED ? Attending Dr: ? Ordering Physician: Diomedes Shultz ?? Date of Service: 12/23/24 ?? Procedure(s): XR hand wrist RT ?? Accession Number(s): [id number] ? cc: Diomedes Shultz; Umm Coley MD [...] DD/ 1457 ? TD/TT: 12/23/24 1533 ? Automotive Design Drafter: ? Procedure Note Cristianoter, Image - 12/23/2024 [place] [address] XRay Report Signed Patient: Diana Myles LMR#: [id number] 8 : 1965Acct:[id number] Age/Sex: 59 / FADM Date: 12/23/24 Loc: HO.ED Attending Dr: Ordering Physician: Diomedes Shultz Date of Service: 12/23/24 Procedure(s): XR hand wrist RT Accession Number(s): [id number] cc: Diomedes Shultz; Umm Coley MD EXAMINATION: [...] Steven Coreas MD 12/23/2024 03:46 PM EST RP Dictated By: Steven Gan MD Signed By: <Electronically signed by Steven Miles MDin OV> 12/23/24 1546 DD/ 1457 TD/TT: 12/23/24 1533 Automotive Design Drafter: us [facility] External Provider IMG XR PROCEDURES Final Result * XR Hips Bilateral with Pelvis 1 view (12/23/2024 2:57 PM EST) Anatomical Region Laterality Modality Lower Extremities, Hip Bilateral Radiograp hic Imaging 12/23/2024 2:57 PM EST Narrative 12/23/2024 3:45 PM EST ? [facility] ?[address] ?[place] [address] ?XRay Report ? Signed ? Patient: Diana Myles L ?MR#: [id number] ?? 8 ? : 1965 ?Acct:[id number] ? Age/Sex: 59 / F ?ADM Date: 12/23/24 ? Loc: HO.ED ? Attending Dr: ? Ordering Physician: Diomedes Shultz ?? Date of Service: 12/23/24 ?? Procedure(s): XR hip BI w PEL1V ?? Accession Number(s): [id number] ? cc: Diomedes Shultz; Umm Coley MD [...] DD/ 1457 ? TD/TT: 12/23/24 1533 ? Automotive Design Drafter: ? Procedure Note Adalgias, Image - 12/23/[address] [address] XRay Report Signed Patient: Diana Myles LMR#: [id number] 8 : 1965Acct:[id number] Age/Sex: 59 / FADM Date: 12/23/24 Loc: HO.ED Attending Dr: Ordering Physician: Diomedes Shultz Date of Service: 12/23/24 Procedure(s): XR hip BI w PEL1V Accession Number(s): [id number] cc: Diomedes Shultz; Umm Coley MD EXAMINATION: [...] 12/23/24 1543 DD/ 1457 TD/TT: 12/23/24 1533 Automotive Design Drafter: us [facility] External Provider IMG XR PROCEDURES Final Result * XR Knee 4+ Views Right (12/23/2024 2:57 PM EST) Anatomical Region Laterality Modality Lower Extremities, Knee Right Radiogra phic Imaging 12/23/2024 2:57 PM EST Narrative 12/23/2024 3:44 PM EST ? [facility] ?[address] ?[place] [address] ?XRay Report ? Signed ? Patient: Myles,Diana L ?MR#: [id number] ?? 8 ? : 1965 ?Acct:[id number] ? Age/Sex: 59 / F ?ADM Date: 12/23/24 ? Loc: HO.ED ? Attending Dr: ? Ordering Physician: Diomedes Shutlz ?? Date of Service: 12/23/24 ?? Procedure(s): XR knee RT 4V ?? Accession Number(s): [id number] ? cc: Diomedes Shultz; Umm Coley MD [...] DD/ 1457 ? TD/TT: 12/23/24 1533 ? Automotive Design Drafter: ? Procedure Note Chin Diana - 12/23/[address] [address] XRay Report Signed Patient: Diana Myles LMR#: [id number] 8 : 1965Acct:[id number] Age/Sex: 59 / FADM Date: 12/23/24 Loc: HO.ED Attending Dr: Ordering Physician: Diomedes Shultz Date of Service: 12/23/24 Procedure(s): XR knee RT 4V Accession Number(s): [id number] cc: Diomedes Shultz; mUm Coley MD EXAMINATION: XR KNEE, RIGHT CLINICAL [...] 12/23/24 1541 DD/ 1457 TD/TT: 12/23/24 1533 Automotive Design Drafter: [facility] External Provider IMG XR PROCEDURES Final Result * XR Chest 2 Views (12/13/2024 9:33 AM EST) Anatomical Region Laterality Modality Chest Radiographic Kyleigh ging 12/13/2024 9:33 AM EST Narrative 12/13/2024 10:06 AM EST ? [facility] ?[address] ?[place] [address] ?XRay Report ? Signed ? Patient: Myles,Diana L ?MR#: [id number] ?? 8 ? : 1965 ?Acct:[id number] ? Age/Sex: 59 / F ?ADM Date: 02/11/25 ? Loc: HO.XRAY ? Attending Dr: Anthony Curtis MD ? Ordering Physician: Anthony Curtis MD ?? Date of Service: 12/13/24 ?? Procedure(s): XR chest 2V ?? Accession Number(s): [id number] ? cc: Umm Coley MD; Anthony Curtis [...] ?12/13/24 1004 ? DD/ 0933 ? TD/TT: 12/13/2448 ? Automotive Design Drafter: ? Procedure Note Adalgisa, Chin - 12/13/[address] [address] XRay Report Signed Patient: Diana Myles LMR#: [id number] 8 : 1965Acct:[id number] Age/Sex: 59 / FADM Date: 12/13/24 Loc: HO.ALIYA Attending Dr: Anthony Curtis MD Ordering Physician: Anthony Curtis MD Date of Service: 12/13/24 Procedure(s): XR chest 2V Accession Number(s): [id number] cc: Umm Coley MD; Anthony Curtis MD [...] Mathieu Lepe MD 12/13/2024 10:04 AM EST RP Dictated By: Mathieu Lepe MD Signed By: <Electronically signed by Mathieu Lepe MD in OV> 12/13/24 1004 DD/ TD/TT: 12/13/24 0948 Automotive Design Drafter: us [facility] External Provider IMG XR PROCEDURES Final Result * MR Knee w/o Contrast Left (12/06/2024 6:06 PM EST) Anatomical Region Laterality Modality Magnetic Resonan ce 12/06/2024 6:06 PM EST Narrative 12/08/2024 8:31 AM EST ? [facility] ?[address] ?[place] [address] ? Magnetic Resonance Report ? Signed ? Patient: Myles,Diana L ?MR#: [id number] ?? 8 ? : 1965 ?Acct:[id number] ? Age/Sex: 59 / F ?ADM Date: 12/06/24 ? Loc: HO.MRI ? Attending Dr: Denilson Forman PA-C ? Ordering Physician: Denilson Forman PA-C ?? Date of Service: 12/06/24 ?? Procedure(s): MR knee LT wo con ?? Accession Number(s): [id number] ? cc: Umm Coley MD; Denilson Forman [...] Lepe MD in OV> ?12/08/24828 ? DD/ 05 ? TD/TT: 12/06/241816 ? Automotive Design Drafter: ? Procedure Note Donotuseinterpreter, Image - 12/08/[address] [address] Magnetic Resonance Report Signed Patient: Diana Myles LMR#: [id number] 8 : 1965Acct:[id number] Age/Sex: 59 / FADM Date: 12/06/24 Loc: HO.MRI Attending Dr: Denilson Forman PA-C Ordering Physician: Denilson Forman PA-C Date of Service: 12/06/24 Procedure(s): MR knee LT wo con Accession Number(s): [id number] cc: Umm Coley MD; Denilson Forman PA-C [...] OV> 12/08/24 0829 DD/ 180 TD/TT: 12/06/24 1817 Automotive Design Drafter: [facility] External Provider IMG MRI PROCEDURES Final Result * BI Mammogram Screening Tomosynthesis Bilateral (11/29/2024 8:45 AM EST) Anatomical Region Laterality Modality Breast Bilateral Mammography 11/29/2024 8:45 AM EST Narrative 12/07/2024 3:35 PM EST ? [facility] ? [address] ?[place] [address] ? Mammography Report ? Signed ? Patient: Myles,Diana L ?MR#: [id number] ?? 8 ? : 1965 ?Acct:[id number] ? Age/Sex: 59 / F ?ADM Date: 01/28/25 ? Loc: HO.MAMMO ? Attending Dr: Romana. Brijesh MD ? Ordering Physician: Umm Coley MD ?Results: 2Be ?? nign Findings ? Date of Service: 11/29/24 ?Follow Up: 1 Year From Orig ?? inal Mammogram ? Procedure(s): MM tomosynthesis screening BI ?? Accession Number(s): [id number] ? cc: Umm Coley MD ? EXAMINATION: [...] Chaparrita Lyn, DO in OV> ? 12/07/24 153 ? DD/ 0845 ? TD/TT: 11/29/24 0915 ? Automotive Design Drafter: ? Procedure Note Donotngoziter, Image - 12/07/2024 [facility] [address] [place] [address] Mammography Report Signed Patient: Diana Myles LMR#: [id number] 8 : 1965Acct:[id number] Age/Sex: 59 / FADM Date: 11/29/24 Loc: HO.MAMMO Attending Dr: Umm Coley MD Ordering Physician: Umm Coley MDResults: 2Be nign Findings Date of Service: 11/29/24Follow Up: 1 Year From Orig ina Mammogram Procedure(s): MM tomosynthesis screening BI Accession Number(s): [id number] cc: Umm Coley MD EXAMINATION: MM SCREENING [...] 12/07/24 1532 DD/ 0845 TD/TT: 11/29/24 0915 Automotive Design Drafter: Umm Coley MD IMG BI PROCEDURES Edited Result - Final documented in this encounter Visit Diagnoses Not on filedocumented in this encounter Additional Health Concerns Assessment Noted Time PHQ-9 Depression Total Score: 10 024 9:17 AM EDT documented as of this encounter Care Teams Farm Boss Relationship Specialty Start Date End Date Umm Coley MD [address] [place] [address] PCP - General Family Medicine 10/31/16 [facility] 11/14/24 documented as of this encounter
--- OUTSIDE RECORDS SUMMARY | 2024-12-28 17:25 | XMS_ITS | Encounter Summary ---
Author Organization [employer] [facility] Address [address] [place] [address] 7t [place] [address] Care Team Providers Care Fire Investigator Name Role Phone Umm Coley MD Primary Care Provider + Reason for Referral * Consultation (Routine) - Closed Specialty Diagnoses / Procedures Referred By Contkassie t Referred To Contact Case Management Diagnoses Encounter for monitoring of patient compliance in drug treatment program Umm Coley MD [address] [place] [address] Phone: tel: fax: Referral ID Status Reason Start Date Expiration Date V isits Requested Visits Authorized [id number] Closed Specialty Services Required 12/27/2024 12/27/2025 1 1 Reason for Visit * Reason Comments Weakness, Gen Encounter Details Date Type Department Care Team (Late st Contact Info) Description 12/27/2024 1:00 PM EST Office Visit [facility] [address] [place], [place] [phone] Umm Coley MD [address] [place], [place] [phone] Encounter for monitoring of patient compliance in [...] Progress Notes * Umm Coley MD - 12/27/2024 1:00 PM EST [...] this issue to anyone at [facility]. Acute Concerns: She complains of [...] management by current VNA services ([facility]). I asked her if she wants me to cancel the services and try to find a new one, but she declined. I suggested her to reach out to [facility] supervisors and verify credential information and address issues that she has with current medication management. I will ask our care managers to reach out to her to assist her with this issue and try to stabilizeher on a VNA service. Will ask [facility] service to send a list [...] VIA [facility] NECESAR[facility] FOR ALLERGIES 90 tablet [...] management by current VNA services ([facility]). I asked her if she wants [...] Description 02/03/2025 2:00 PM EDT Office Visit [facility] [address] [place] [address] Darrlel Myers MD [address] [place] [address] 03/08/2025 10:00 AM EDT Office Visit [facility] ADULT DENTAL [address] [place] [address] ElzbietaMariangel [address] [place] [address] Scheduled Referrals Name Type Priority Associated Diagnoses [...] PM EST Narrative 12/27/2024 2:35 PM EST ?[facility] ?[address] ?[place] [address] ?XRay Report ? Signed ? Patient: Myles,Diana L ?MR#: [id number] ?? 8 ? : 1965 ?Acct:[id number] ? Age/Sex: 59 / F ?ADM Date: 02/25/25 ? Loc: HO.HHCX ? Attending Dr: Umm Coley MD ? Ordering Physician: Umm Coley MD ?? Date of Service: 12/27/24 ?? Procedure(s): XR ribs RT 2V ?? Accession Number(s): [id number] ? cc: Umm Coley MD ? EXAMINATION: ?? XR CHEST [...] DD/ 1356 ? TD/TT: 12/27/24 1424 ? Public Information Relations Manager: ? Procedure Note Adalgisa, Chin - 12/27/[address] [address] XRay Report Signed Patient: Diana Myles LMR#: [id number] 8 : 1965Acct:[id number] Age/Sex: 59 / FADM Date: 12/27/24 Loc: HO.HHCX Attending Dr: Umm Coley MD Ordering Physician: Umm Coley MD Date of Service: 12/27/24 Procedure(s): XR ribs RT 2V Accession Number(s): [id number] cc: Umm Coley MD EXAMINATION: XR CHEST XR RIBS [...] 12/27/24 1433 DD/ 1356 TD/TT: 12/27/24 1424 Public Information Relations Manager: us Umm Coley MD IMG XR PROCEDURES Final Result * XR Chest 2 Views (12/27/2024 1:56 PM EST) Anatomical Region Laterality Modality Chest Radiographic Kyleigh ging 12/27/2024 1:56 PM EST Narrative 12/27/2024 2:36 PM EST ?[facility] ?[address] ?[place] [address] ?XRay Report ? Signed ? Patient: Myles,Diana L ?MR#: [id number] ?? 8 ? : 1965 ?Acct:[id number] ? Age/Sex: 59 / F ?ADM Date: 02/25/25 ? Loc: HO.HHCX ? Attending Dr: Umm Coley MD ? Ordering Physician: Umm Coley MD ?? Date of Service: 12/27/24 ?? Procedure(s): XR chest 2V ?? Accession Number(s): [id number] ? cc: Umm Coley MD ? EXAMINATION: ?? XR CHEST [...] DD/ 1356 ? TD/TT: 12/27/24 1424 ? Public Information Relations Manager: ? Procedure Note Chin Diana - 12/27/[address] [address] XRay Report Signed Patient: Diana Myles LMR#: [id number] 8 : 1965Acct:[id number] Age/Sex: 59 / FADM Date: 12/27/24 Loc: HO.HHCX Attending Dr: Umm Coley MD Ordering Physician: Umm Coley MD Date of Service: 12/27/24 Procedure(s): XR chest 2V Accession Number(s): [id number] cc: Umm Coley MD EXAMINATION: XR CHEST XR RIBS [...] 12/27/24 1433 DD/ 1356 TD/TT: 12/27/24 1424 Public Information Relations Manager: us Umm Coley MD IMG XR PROCEDURES Final Result documented in this encounter Visit Diagnoses Diagnosis Encounter for monitoring of patient compliance in drug treatment program- Primary Intercostal pain documented in this encounter Additional Health Concerns Assessment Noted Time PHQ-9 Depression Total Score: 10 024 9:17 AM EDT documented as of this encounter Care Teams Fire Investigator Relationship Specialty Start Date End Date Umm Coley MD [address] [place] [address] PCP - General Family Medicine 10/31/16 [facility] 11/14/24 documented as of this encounter
--- OUTSIDE RECORDS SUMMARY | 2024-12-28 17:25 | XMS_ITS | Encounter Summary ---
Author Organization [facility] Address [address] [place] [address] 7t [place] [address] Care Team Providers Care Rubber Goods Inspector Name Role Phone Umm Coley MD Primary Care Provider + Encounter Details Date Type Department Care Team (Latest Contact Info) Description 03/13/2022 Abstract [facility] CONVERSIONS Dental, Provider, DDS Social History [...] Description 02/03/2025 2:00 PM EDT Office Visit [facility] MEDIC[facility] [address] [place] [address] Darrell Myers MD [address] [place] [address] 03/08/2025 10:00 AM EDT Office Visit [facility] ADULT DENTAL [address] [place] [address] Trino Ruffaris [address] [place] [address] documented as of this encounter Visit Diagnoses Not on filedocumented in this encounter Care Teams Rubber Goods Inspector Relationship Specialty Start Date End Date Umm Coley MD [address] [place] [address] PCP - General Family Medicine 10/31/16 Eva Nune[facility] [employer] 04/05/24 07/06/24 [facility] 05/11/24 11/17/24 [facility] 11/14/24 documented as of this encounter
--- OUTSIDE RECORDS SUMMARY | 2024-12-28 17:25 | XMS_ITS | Encounter Summary ---
Author Organization [employer] Address [address] [facility] 7t [place] [address] Care Team Providers Care Rn Resource Nurse Name Role Phone Umm Coley MD Primary Care Provider + Encounter Details Date Type Department Care Team (Late st Contact Info) Description 11/03/2022 Orders Only [facility] MEDICINE [address] [place], [place] [phone] Umm Coley MD 230 [place], [place] [phone] Osteopenia after menopause (Primary Dx) Social History [...] Description 02/03/2025 2:00 PM EDT Office Visit [facility] MEDICINE 230 [place] [address] Darrell Myers MD 230 [place] [address] 03/08/2025 10:00 AM EDT Office Visit [facility] ADULT DENTAL 230 [place], [place] [phone] Elzbieta, Mariangel 230 [place] [address] Scheduled Orders Name Type Priority Associated Diagnoses Orde r Schedule Vitamin D, 25-Hydroxy, Total, Immunoassay Lab Routine Osteopenia after menopause Expected: 11/03/2022 (Approximate), Expires: 11/03/2023 PTH, Intact (ICMA) And Ionized Calcium Lab Routine Osteopenia after menopause Expected: 11/03/2022 (Approximate), Expires: 11/03/2023 documented as of this encounter Visit Diagnoses Diagnosis Osteopenia after menopause- Primary documented in this encounter Care Teams Rn Resource Nurse Relationship Specialty Start Date End Date Umm Coley MD [address] [place] [address] [phone] PCP - General Family Medicine 10/31/16 Eva Nunez Shell Worker 04/05/24 07/06/24 [facility] 05/11/24 11/17/24 [facility] 11/14/24 documented as of this encounter
--- OUTSIDE RECORDS SUMMARY | 2024-12-28 17:25 | XMS_ITS | Encounter Summary ---
Author Organization [employer] Address [address] [facility] 7t [place] [address] Care Team Providers Care Hat Parts Cutter Machine Name Role Phone Umm Coley MD Primary [...] Description 02/03/2025 2:00 PM EDT Office Visit [facility] MEDICINE 230 [place] [address] Darrell Myers MD 230 [place] [address] 03/08/2025 10:00 AM EDT Office Visit [facility] ADULT DENTAL 230 [place] [address] Elzbieta Mariangel 230 [place] [address] documented as of this encounter Visit Diagnoses Not on filedocumented in this encounter Additional Health Concerns Assessment Noted Time PHQ-9 Depression Total Score: 10 024 9:17 AM EDT documented as of this encounter Care Teams Hat Parts Cutter Machine Relationship Specialty Start Date End Date Umm Coley MD [address] [place] [address] PCP - General Family Medicine 10/31/16 [facility] 11/14/24 documented as of this encounter
--- OUTSIDE RECORDS SUMMARY | 2024-12-28 17:25 | XMS_ITS | Encounter Summary ---
Author Organization [employer] Address [address] [facility] 7t [place] [address] Care Team Providers Care Sales Utility Representative Name Role Phone Umm Coley MD Primary Care Provider + Encounter Details Date Type Department Care Team (Late st Contact Info) Description 08/23/2024 Orders Only [facility] ADULT DENTAL [address] [place], [place] [phone] Johnny Gonzalez, DMD 505 [place], [place] [phone] Social History Tobacco Use Types Packs/Day Years [...] Description 02/03/2025 2:00 PM EDT Office Visit [facility] MEDICINE 230 [place] [address] Darrell Myers MD 230 [place] [address] 03/08/2025 10:00 AM EDT Office Visit [facility] ADULT DENTAL 230 [place] [address] Elzbieta, Mariangel 230 [place] [address] documented as of this encounter Visit Diagnoses Not on filedocumented in this encounter Additional Health Concerns Assessment Noted Time PHQ-9 Depression Total Score: 10 024 9:17 AM EDT documented as of this encounter Care Teams Sales Utility Representative Relationship Specialty Start Date End Date Umm Coley MD [address] [place] [address] PCP - General Family Medicine 10/31/16 [facility] 05/11/24 11/17/24 [facility] 11/14/24 documented as of this encounter
--- OUTSIDE RECORDS SUMMARY | 2024-12-28 17:25 | XMS_ITS | Encounter Summary ---
Author Organization [facility] Address [address] [place] [address] 7t [place] [address] Care Team Providers Care Overcoil Stepper Name Role Phone Umm Coley MD Primary Care Provider + Reason for Visit * Reason Comments Med Refill Encounter Details Date Type Department Care Team (Late st Contact Info) Description 08/01/2023 Refill [facility] MEDICINE 230 [place], [place] [phone] Umm Coley MD 230 [place], [place] [phone] Social History Tobacco Use Types Packs/Day Years [...] Description 02/03/2025 2:00 PM EDT Office Visit [facility] MEDICINE 230 [place], [place] [phone] Darrell Myers MD 230 [place], [place] [phone] 03/08/2025 10:00 AM EDT Office Visit [facility] ADULT DENTAL 230 [place] [address] Mariangel Ruff 230 [place] [address] documented as of this encounter Visit Diagnoses Not on filedocumented in this encounter Additional Health Concerns Assessment Noted Time PHQ-9 Depression Total Score: 12 023 1:58 PM EDT documented as of this encounter Care Teams Overcoil Stepper Relationship Specialty Start Date End Date Umm Coley MD 230 [place] [address] PCP - General Family Medicine 10/31/16 Eva Nunez Tube Backer 04/05/24 07/06/24 [facility] 05/11/24 11/17/24 [facility] 11/14/24 documented as of this encounter
--- OUTSIDE RECORDS SUMMARY | 2024-12-28 17:25 | XMS_ITS | Encounter Summary ---
Author Organization [employer] Address [address] [facility] 7t [place] [address] Care Team Providers Care Construction Specialist Name Role Phone Umm Coley MD Primary Care Provider + Reason for Visit * Reason Onset Date Comments pre med prior to dental treatment 08/23/2024 Encounter Details Date Type Department Care Team ([facility] st Contact Info) Description 08/23/2024 Telephone [facility] ADULT DENTAL [address] [place], [place] [phone] Johnny Gonzalez, DMD 505 [place] [address] pre med prior to dental treatment Social [...] I also spoke with Nina in the electrician front with a run through of what was happening with the patient and she stated she would also send something to provider for clarificationDR documented in this encounter Plan of Treatment Upcoming Encounters Date Type Department Care Team (Late st Contact Info) Description 02/03/2025 2:00 PM EDT Office Visit [facility] MEDICINE 230 [place] [address] Darrell Myers MD 230 [place] [address] 03/08/2025 10:00 AM EDT Office Visit [facility] ADULT DENTAL 230 [place] [address] Mariangel Ruff 230 [place] [address] documented as of this encounter Visit Diagnoses Not on filedocumented in this encounter Additional Health Concerns Assessment Noted Time PHQ-9 Depression Total Score: 10 024 9:17 AM EDT documented as of this encounter Care Teams Construction Specialist Relationship Specialty Start Date End Date Umm Coley MD 230 [place] [address] PCP - General Family Medicine 10/31/16 [facility] 05/11/24 11/17/24 [facility] 11/14/24 documented as of this encounter
--- OUTSIDE RECORDS SUMMARY | 2024-12-28 17:25 | XMS_ITS | Encounter Summary ---
Author Organization [employer] [facility] Address [address] [place] [address] 7t [place] [address] Care Team Providers Care Boats Renter Name Role Phone Umm Coley MD Primary Care Provider + Reason for Visit * Reason Comments Med Refill Encounter Details Date Type Department Care Team (Late st Contact Info) Description 06/10/2023 Refill [facility] 230 [place], [place] [phone] Yenny Morris MD 230 [place], [place] [phone] Rash Social History Tobacco Use Types Packs/Day [...] Description 02/03/2025 2:00 PM EDT Office Visit [facility] [address] [place] [address] [phone] Darrell Myers MD 230 [place], [place] [phone] 03/08/2025 10:00 AM EDT Office Visit [facility] ADULT DENTAL 230 [place] [address] Mariangel Ruff 230 [place] [address] documented as of this encounter Visit Diagnoses Diagnosis Rash Rash and other nonspecific skin eruption documented in this encounter Additional Health Concerns Assessment Noted Time PHQ-9 Depression Total Score: 12 023 1:58 PM EDT documented as of this encounter Care Teams Boats Renter Relationship Specialty Start Date End Date Umm Coley MD 230 [place] [address] PCP - General Family Medicine 10/31/16 Eva Nunez Underground Production Foreperson 04/05/24 07/06/24 [facility] 05/11/24 11/17/24 [facility] 11/14/24 documented as of this encounter
--- OUTSIDE RECORDS SUMMARY | 2024-12-28 17:25 | XMS_ITS | Encounter Summary ---
Author Organization [employer] [facility] Address [address] [place] [address] 7t [place] [address] Care Team Providers Care Lead Engineer Name Role Phone Umm Coley MD Primary Care Provider + Encounter Details Date Type Department Care Team (Latest Contact Info) Description 09/16/2022 Abstract [facility] CONVERSIONS Dental, Provider, DDS Social History [...] Description 02/03/2025 2:00 PM EDT Office Visit [facility] MEDICINE 230 [place] [address] Darrell Myers MD 230 [place] [address] 03/08/2025 10:00 AM EDT Office Visit [facility] ADULT DENTAL 230 [place] [address] Trino Ruffaris 230 [place] [address] documented as of this encounter Visit Diagnoses Not on filedocumented in this encounter Care Teams Lead Engineer Relationship Specialty Start Date End Date Umm Coley MD 230 [place] [address] PCP - General Family Medicine 10/31/16 Eva Nunez Real Estate Investor 04/05/24 07/06/24 [facility] 05/11/24 11/17/24 [facility] 11/14/24 documented as of this encounter
--- OUTSIDE RECORDS SUMMARY | 2024-12-28 17:25 | XMS_ITS | Encounter Summary ---
Author Organization [employer] Address 75 [facility] 7t [place] [address] Care Team Providers Care Correctional Officer Lieutenant Name Role Phone Umm Coley MD Primary Care Provider + Reason for Visit * Reason Onset Date Comments ED f/u call 12/26/2024 Encounter Details Date Type Department Care Team ([facility] st Contact Info) Description 12/26/2024 Telephone [facility] MEDICINE 230 [place], [place] [phone] Umm Coley MD 230 [place], [place] [phone] ED f/u call Social History Tobacco Use [...] Patient reports she is scheduled to see [facility] ortho on 12/28 at 10:15am [facility] Patient is scheduled to see PCP [...] AM EST Noted. TC placed to patient [phone] in regards to below message. Patient did [...] 2:00 PM EDT Office Visit [facility] MEDICINE 230 [place] [address] Darrell Myers MD 230 [place] [address] 03/08/2025 10:00 AM EDT Office Visit [facility] ADULT DENTAL 230 [place] [address] Elzbieta, Mariangel 230 [place] [address] documented as of this encounter Visit Diagnoses Not on filedocumented in this encounter Additional Health Concerns Assessment Noted Time PHQ-9 Depression Total Score: 10 024 9:17 AM EDT documented as of this encounter Care Teams Correctional Officer Lieutenant Relationship Specialty Start Date End Date Umm Coley MD 230 [place] [address] PCP - General Family Medicine 10/31/16 [facility] 11/14/24 documented as of this encounter
--- OUTSIDE RECORDS SUMMARY | 2024-12-28 17:25 | XMS_ITS | Encounter Summary ---
Author Organization [employer] Address 75 [facility] 7t [place] [address] Care Team Providers Care Lumber Checker Name Role Phone Umm Coley MD Primary Care Provider + Reason for Visit * Reason Onset Date Comments Chart prep 12/23/2024 Encounter Details Date Type Department Care Team ([facility] st Contact Info) Description 12/23/2024 Telephone [facility] MEDICINE 230 [place], [place] [phone] Umm Coley MD 230 [place], [place] [phone] Chart prep Social History Tobacco Use Types [...] Description 02/03/2025 2:00 PM EDT Office Visit [facility] MEDICINE 230 [place] [address] Darrell Myers MD 230 [place] [address] 03/08/2025 10:00 AM EDT Office Visit [facility] ADULT DENTAL 230 [place] [address] Mariangel Ruff 230 [place] [address] documented as of this encounter Visit Diagnoses Not on filedocumented in this encounter Additional Health Concerns Assessment Noted Time PHQ-9 Depression Total Score: 10 024 9:17 AM EDT documented as of this encounter Care Teams Lumber Checker Relationship Specialty Start Date End Date Umm Coley MD [address] [place] [address] PCP - General Family Medicine 10/31/16 [facility] 11/14/24 documented as of this encounter
--- OUTSIDE RECORDS SUMMARY | 2024-12-28 17:25 | XMS_ITS | Encounter Summary ---
Author Organization [employer] Address 75 [facility] 7t [place] [address] Care Team Providers Care Water Maintenance Supervisor Name Role Phone Umm Coley MD Primary Care Provider + Reason for Visit * Reason Onset Date Comments Appointment 06/15/2023 Encounter Details Date Type Department Care Team ([facility] st Contact Info) Description 06/15/2023 Telephone [facility] ADULT DENTAL 230 [facility] [place] [address] Johnny Gonzalez, DMD 505 [place] [address] Appointment Social History Tobacco Use Types Packs/Day [...] Description 02/03/2025 2:00 PM EDT Office Visit [facility] MEDICINE 230 [place] [address] Darrell Myers MD 230 [place] [address] 03/08/2025 10:00 AM EDT Office Visit [facility] ADULT DENTAL 230 [place] [address] Elzbieta, Mariangel 230 [place] [address] documented as of this encounter Visit Diagnoses Not on filedocumented in this encounter Additional Health Concerns Assessment Noted Time PHQ-9 Depression Total Score: 12 023 1:58 PM EDT documented as of this encounter Care Teams Water Maintenance Supervisor Relationship Specialty Start Date End Date Umm Coley MD 230 [place] [address] PCP - General Family Medicine 10/31/16 Eva Nunez Life Enrichment Assistant 04/05/24 07/06/24 [facility] 05/11/24 11/17/24 [facility] 11/14/24 documented as of this encounter
--- OUTSIDE RECORDS SUMMARY | 2024-12-28 17:26 | XMS_ITS | Encounter Summary ---
Author Organization [employer] Address [address] [place] [address] 7t [place] [address] Care Team Providers Care Professional Programmer Analyst Name Role Phone Umm Coley MD Primary Care Provider + Encounter Details Date Type Department Care Team (Late Contact Info) Description 03/05/2023 Orders Only [facility] MEDICINE [address] [place] [address] [phone] Umm Coley MD [address] [place] [address] [phone] Social History Tobacco Use Types Packs/Day Years [...] 2:00 PM EDT Office Visit [facility] MEDICINE [address] [place] [address] [phone] Darrell Myers MD 230 [place] [address] 03/08/2025 10:00 AM EDT Office Visit [facility] ADULT DENTAL 230 [place], [place] [phone] Mariangel Ruff 230 [place] [address] documented as of this encounter Visit Diagnoses Not on filedocumented in this encounter Care Teams Professional Programmer Analyst Relationship Specialty Start Date End Date Umm Coley MD 230 [place] [address] PCP - General Family Medicine 10/31/[address]ing Guard 04/05/24 07/06/24 [facility] 05/11/24 11/17/24 [facility] 11/14/24 documented as of this encounter
--- OUTSIDE RECORDS SUMMARY | 2024-12-28 17:26 | XMS_ITS | Encounter Summary ---
Author Organization [employer] Address [address] [place] [address] 7t [place] [address] Care Team Providers Care Bus Aide Name Role Phone Umm Coley MD Primary Care Provider + Reason for Visit * Reason Comments Med Refill Encounter Details Date Type Department Care Team (Late st Contact Info) Description 02/05/2023 Refill [facility] MEDICINE 230 [place], [place] [phone] Umm Coley MD 230 [place], [place] [phone] Arthritis of knee Social History Tobacco Use [...] Upcoming Encounters Date Type Department Care Team ([facility] Contact Info) Description 02/03/2025 2:00 PM EDT Office Visit [facility] MEDICINE 230 [place], [place] [phone] Darrell Myers MD 230 [place] [address] 03/08/2025 10:00 AM EDT Office Visit [facility] ADULT DENTAL 230 [place], [place] [phone] Mariangel Ruff 230 [place], [place] [phone] documented as of this encounter Visit Diagnoses Diagnosis Arthritis of knee Unspecified arthropathy, lower leg documented in this encounter Care Teams Bus Aide Relationship Specialty Start Date End Date Umm Coley MD 230 [place], [place] [phone] PCP - General Family Medicine 10/31/16 Eva Nunez Tree Fruit And Nut Farming Supervisor 04/05/24 07/06/24 [facility] 05/11/24 11/17/24 [facility] 11/14/24 documented as of this encounter
--- OUTSIDE RECORDS SUMMARY | 2024-12-28 17:26 | XMS_ITS | Encounter Summary ---
Author Organization [employer] Address [address] [facility] 7t [place] [address] Care Team Providers Care Work Force Advisor Name Role Phone Umm Coley MD Primary Care Provider + Reason for Visit * Reason Onset Date Comments Care Management 12/28/2024 [id number] revie w Encounter Details Date Type Department Care Team ([facility] st Contact Info) Description 12/28/2024 Telephone [facility] MEDICINE 230 [place], [place] [phone] Umm Coley MD 230 [place], [place] [phone] Care Management ([id number] review) Social History Tobacco Use Types Packs/Day [...] assessment with patient, aspatient has stratified for C3 Adult Complex Care through PCP referral. History [...] back pain, arthritis of knee. Specialists include [facility], [facility] derm, [facility] PT, [facility] vision, [facility], [facility] dental, [facility] pulmonology, [facility] pain management, [facility] GI, [facility] neurology[facility] ED visits within the last 12 months include [facility] 12/23, [facility] 02/28-03/02/24. Last appointment in PCP office on 12/27/24. No future appointment scheduled. documented in this encounter Plan of Treatment Upcoming Encounters Date Type Department Care Team (Late st Contact Info) Description 02/03/2025 2:00 PM EDT Office Visit [facility] MEDICINE 230 [place] [address] Darrell Myers MD 230 [place] [address] 03/08/2025 10:00 AM EDT Office Visit [facility] ADULT DENTAL 230 [place], [place] [phone] ElzbietaTrinoMariangel 230 [place] [address] documented as of this encounter Visit Diagnoses Not on filedocumented in this encounter Additional Health Concerns Assessment Noted Time PHQ-9 Depression Total Score: 10 024 9:17 AM EDT documented as of this encounter Care Teams Work Force Advisor Relationship Specialty Start Date End Date Umm Coley MD [address] [place] [address] PCP - General Family Medicine 10/31/16 [facility] 11/14/24 documented as of this encounter
--- OUTSIDE RECORDS SUMMARY | 2024-12-28 17:26 | XMS_ITS | Encounter Summary ---
Author Organization [employer] Address 75 [facility] 7t [place] [address] Care Team Providers Care Job Training Supervisor Name Role Phone Umm Coley MD Primary Care Provider + Reason for Visit * Reason Onset Date Comments Appointment 02/24/2023 Encounter Details Date Type Department Care Team ([facility] st Contact Info) Description 02/24/[address] [facility] ADULT DENTAL [address] [place] [address] Johnny Gonzalez, DMD 505 [place] [address] Appointment Social History Tobacco Use Types Packs/Day [...] PM EDT Office Visit [facility] MEDICINE 230 [place] [address] Darrell Myers MD 230 [place] [address] 03/08/2025 10:00 AM EDT Office Visit [facility] ADULT DENTAL 230 [place] [address] Trino Ruffaris 230 [place] [address] documented as of this encounter Visit Diagnoses Not on filedocumented in this encounter Care Teams Job Training Supervisor Relationship Specialty Start Date End Date Umm Coley MD [address] [place] [address] PCP - General Family Medicine 10/31/16 Eva Nunez Machine Maintenance Mechanic 04/05/24 07/06/24 [facility] 05/11/24 11/17/24 [facility] 11/14/24 documented as of this encounter
--- OUTSIDE RECORDS SUMMARY | 2024-12-28 17:26 | XMS_ITS | Encounter Summary ---
Author Organization [employer] Address [address] [facility] 7t [place] [address] Care Team Providers Care Surveillance Observer Name Role Phone Umm Coley MD Primary Care Provider + Reason for Visit * Reason Comments Med Change Request Encounter Details Date Type Department Care Team ([facility] Contact Info) Description 03/20/2023 Refill [facility] ADULT DENTAL [address] [place] [address] Johnny Gonzalez DMD 505 [place] [address] Social History Tobacco Use Types Packs/Day Years [...] Office Visit [facility] MEDICINE [address] [place] [address] Darrell Myers MD 230 [place] [address] 03/08/2025 10:00 AM EDT Office Visit [facility] ADULT DENTAL [address] [place], [place] [phone] ElzbietaTrinoMariangel [address] [place], [place] [phone] documented as of this encounter Visit Diagnoses Not on filedocumented in this encounter Care Teams Surveillance Observer Relationship Specialty Start Date End Date Umm Coley MD 230 [place], [place] [phone] PCP - General Family Medicine 10/31/16 Eva Nunez Crm Analyst 04/05/24 07/06/24 [facility] 05/11/24 11/17/24 [facility] 11/14/24 documented as of this encounter
--- OUTSIDE RECORDS SUMMARY | 2024-12-28 17:26 | XMS_ITS | Encounter Summary ---
Author Organization [employer] Address 75 [facility] 7t [place] [address] Care Team Providers Care Air Conditioning Manager Name Role Phone Umm Coley MD Primary Care Provider + Reason for Visit * Reason Onset Date Comments Appointment 03/17/2023 Encounter Details Date Type Department Care Team ([facility] st Contact Info) Description 03/17/2023 Telephone [facility] ADULT DENTAL [address] [place] [address] Johnny Gonzalez, DMD 505 [place] [address] Appointment Social History Tobacco Use Types Packs/Day [...] Office Visit [facility] MEDICINE 230 [place] [address] Darrell Myers MD 230 [place] [address] 03/08/2025 10:00 AM EDT Office Visit [facility] ADULT DENTAL [address] [place] [address] Elzbieta, Mariangel [address] [place] [address] documented as of this encounter Visit Diagnoses Not on filedocumented in this encounter Care Teams Air Conditioning Manager Relationship Specialty Start Date End Date Umm Coley MD 230 [place] [address] PCP - General Family Medicine 10/31/16 Eva Nunez Office Lead 04/05/24 07/06/24 [facility] 05/11/24 11/17/24 [facility] 11/14/24 documented as of this encounter
[2025-01-02] VITALS (8 sets, daily range): BP systolic 102–107; BP diastolic 42–57; PULSE 65–85; RESP 12–18; TEMP 36.6; O2SAT 99–100; BMI 25.4
--- NOTE | ~2025-01-02 | FL_ITS ---
EXAMINATION: FLUOROSCOPY GUIDANCE FOR NEEDLE PLACEMENT CLINICAL INFORMATION: Intraoperative guidance COMPARISON: None available. TECHNIQUE: There are 5 digital images obtained in OR in addition to fluoroscopy for physician guidance. No radiologist present. FINDINGS/ FL/FL guidance in OR IMPRESSION: There is an oblique intra-articular fracture distal radius stabilized with dorsal plate and screws in satisfactory alignment. There is an old ulnar styloid process nonhealed fracture. FLUOROSCOPY TIME: 33.04 seconds DOSE AREA PRODUCT: 0.0566 uGy-m2 (microgray-meter squared) Electronically signed by: Natanael Smith MD 01/03/2025 09:56 AM EST
[2025-01-02] MEDS: Lactated Ringers 1,000 ML 100 ML IVCONT (09:20)
--- NOTE | 2025-01-02 09:22 | HO.ANESPROP2 ---
Documented by User: Isabelle Zelaya NP 12/29/24 15:08 HPI - Anesthesia Eval Consult details Narrative: 59yo F for Right Radius Distal Fracture ORIF, Carpal Tunnel Release PMFSH Active Problems Active Problems: All Active Problems Fracture of right distal radius (Acute) Internal derangement of left knee (Acute) Patellofemoral arthritis of left knee (Acute) Osteoarthritis of right knee (Acute) Reactive airway disease (Acute) Anemia (Acute) Chronic pain syndrome (Acute) At risk for polypharmacy (Acute) Vertigo (Acute) Syncope (Acute) Leg cramps (Acute) Bilateral leg paresthesia (Acute) Tubular adenoma of colon (Acute) SHALONDA positive (Acute) Right shoulder tendinitis (Acute) Migraine equivalent syndrome (Acute) Somatization disorder (Acute) Numbness and tingling in right hand (Acute) Stiffness of finger joint of right hand (Acute) Weakness of right hand (Acute) Insomnia (Acute) GERD (gastroesophageal reflux disease) (Acute) Epigastric pain (Acute) Irritable bowel syndrome with both constipation and diarrhea (Acute) RUQ abdominal pain (Acute) Environmental allergies (Acute) Fibromyalgia (Acute) Past Medical History Medical History Primary osteoarthritis of right hand Migraine Right shoulder pain Rotator cuff tendinitis Arthritis of right shoulder region Right hand pain Breast cancer, right Status post radiation therapy Anemia Diarrhea Depression Somatization disorder Migraine equivalent syndrome Anxiety Periodontal disease Fibromyalgia Family History Family History Mother HTN (hypertension) Sister Breast cancer Bone cancer Colon polyps Sister Osteoporosis Hypercholesteremia Colon polyps Surgical History Surgical History History of esophagogastroduodenoscopy (EGD) History of lumpectomy Hx of section Hx of shoulder surgery Hx of colonoscopy History of Problems with Anesthesia: No Social History Social History Household Members: None Housing: Apartment Are you a primary personal care service provider to a significant other at home: No Do you presently have visiting nurse or other home services: Yes (CONFIGURATION DEVELOPER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 NAUSEA Verified 12/28/24 10:27 meperidine [MEPERIDINE] Allergy Intermediate NAUSEA Verified 12/28/24 10:27 morphine [MORPHINE] Allergy Intermediate PALPITATIONS, Verified 12/28/24 10:27 palpitation oxycodone [OXYCODONE] Allergy Intermediate PALPATATIONS, Verified 12/28/24 10:27 palpitations tramadol Allergy Unknown dizziness, Verified 12/28/24 10:27 nausea Home Medications ?Medication ?Instructions ?Recorded ?Confirmed ?Last Taken ?Type buspirone 15 mg tablet 15 mg PO TID 11/08/20 06/13/24 Unknown History olanzapine 20 mg tablet 20 mg PO BEDTIME 11/08/20 06/13/24 Unknown History prazosin 2 mg capsule 4 mg PO BEDTIME 11/08/20 06/13/24 Unknown History sertraline 100 mg tablet 200 mg PO DAILY 11/08/20 06/13/24 Unknown History loratadine 10 mg tablet 10 mg PO DAILY 07/16/21 06/13/24 Unknown History cyanocobalamin (vitamin B-12) 100 100 mcg PO DAILY 05/29/22 06/13/24 Unknown History mcg tablet cholecalciferol (vitamin D3) 50 50 mcg PO DAILY 07/01/22 06/13/24 Unknown History mcg (2,000 unit) capsule diclofenac sodium 1 % topical gel 2 g topical TID PRN Pain 07/29/22 06/13/24 Unknown History amitriptyline 100 mg tablet 100 mg PO BEDTIME 10/22/22 06/13/24 Unknown History pregabalin 150 mg capsule 150 mg PO BID 04/14/23 06/13/24 Unknown History acetaminophen 500 mg tablet 500 mg PO Q4H PRN Pain 02/29/24 06/13/24 Unknown History meclizine 25 mg tablet 25 mg PO .COMPLEX 03/23/24 06/13/24 Unknown History Exam Pertinent Lab Results Pertinent Lab Results: Laboratory Tests 05/10/24 10:25 WBC 4.5 L Hgb 13.8 Hct 40.5 Plt Count 293 Sodium 140 Potassium 4.3 Chloride 105 Carbon Dioxide 30 H BUN 9 Creatinine 0.82 Narrative Narrative: EKG 2023 Vent. Rate : 067 BPM Atrial Rate : 067 BPM P-R Int : 142 ms QRS Dur : 078 ms QT Int : 358 ms P-R-T Axes : 061 062 043 degrees QTc Int : 378 ms Normal sinus rhythm Normal ECG When compared with ECG of 29-FEB-2024 10:16, No significant change was found Assessment and Plan Assessment Anesthesia Assessment: Chart Reviewed Final Anesthetic Review History of Problems with Anesthesia: No Documented by User: Leatha Canseco DO 01/02/25 09:24 PMFSH Past Medical History Medical History Primary osteoarthritis of right hand Migraine Right shoulder pain Rotator cuff tendinitis Arthritis of right shoulder region Right hand pain Breast cancer, right Status post radiation therapy Anemia Diarrhea Depression Somatization disorder Migraine equivalent syndrome Anxiety Periodontal disease Fibromyalgia Family History Family History Mother HTN (hypertension) Sister Breast cancer Bone cancer Colon polyps Sister Osteoporosis Hypercholesteremia Colon polyps Family history of problems with anesthesia: No Surgical History Surgical History History of esophagogastroduodenoscopy (EGD) History of lumpectomy Hx of section Hx of shoulder surgery Hx of colonoscopy History of Problems with Anesthesia: No Social History Social History Household Members: None Housing: Apartment Are you a primary personal care service provider to a significant other at home: No Do you presently have visiting nurse or other home services: Yes (CONFIGURATION DEVELOPER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 NAUSEA Verified 12/28/24 10:27 meperidine [MEPERIDINE] Allergy Intermediate NAUSEA Verified 12/28/24 10:27 morphine [MORPHINE] Allergy Intermediate PALPITATIONS, Verified 12/28/24 10:27 palpitation oxycodone [OXYCODONE] Allergy Intermediate PALPATATIONS, Verified 12/28/24 10:27 palpitations tramadol Allergy Unknown dizziness, Verified 12/28/24 10:27 nausea Home Medications ?Medication ?Instructions ?Recorded ?Confirmed ?Last Taken ?Type buspirone 15 mg tablet 15 mg PO TID 11/08/20 06/13/24 Unknown History olanzapine 20 mg tablet 20 mg PO BEDTIME 11/08/20 06/13/24 Unknown History prazosin 2 mg capsule 4 mg PO BEDTIME 11/08/20 06/13/24 Unknown History sertraline 100 mg tablet 200 mg PO DAILY 11/08/20 06/13/24 Unknown History loratadine 10 mg tablet 10 mg PO DAILY 07/16/21 06/13/24 Unknown History cyanocobalamin (vitamin B-12) 100 100 mcg PO DAILY 05/29/22 06/13/24 Unknown History mcg tablet cholecalciferol (vitamin D3) 50 50 mcg PO DAILY 07/01/22 06/13/24 Unknown History mcg (2,000 unit) capsule diclofenac sodium 1 % topical gel 2 g topical TID PRN Pain 07/29/22 06/13/24 Unknown History amitriptyline 100 mg tablet 100 mg PO BEDTIME 10/22/22 06/13/24 Unknown History pregabalin 150 mg capsule 150 mg PO BID 04/14/23 06/13/24 Unknown History acetaminophen 500 mg tablet 500 mg PO Q4H PRN Pain 02/29/24 06/13/24 Unknown History meclizine 25 mg tablet 25 mg PO .COMPLEX 03/23/24 06/13/24 Unknown History Exam Exam Date and Time: 01/02/25 0920 Airway Mallampati Class: I TM Dist: >3cm Neck ROM: Full Loose/Missing/Broken Teeth: No (patient denies any loose or broken teeth) Heart: S1S2 Lungs: CTAB Assessment and Plan Assessment Anesthesia Assessment: Anesthesia Plan Discussed and Chart Reviewed Final Anesthetic Review Family History of Problems with Anesthesia: No History of Problems with Anesthesia: No NPO: Yes ASA Class: II Final Preanesthetic Review: No Changes in Pt Med Stat, Meds/Allgs Chart Reviewed, Consent Obtained/Reviewed (flight/transport nurse at bedside for translation) and Anes Risks/Benef Reviewed Patient Risk: Low Procedure Risk: Low Anesthetic Plan Anesthetic Plan: GA, Regional Block (right brachial plexus block) and Agree w/ Assess. and Plan Disposition: Standard PACU
--- NOTE | 2025-01-02 09:31 | P.OP_ITS ---
Operative Note Operative Note Date of Service: 01/02/25 Narrative: Operative Note Narrative: Preop diagnosis: 1. Right Distal radius fracture 2. Right carpal tunnel syndrome Postop diagnosis: Same Procedure: 1. Right Distal radius fracture open reduction internal fixation, 2. Right carpal tunnel release Surgeon: Sydney Cleveland MD Pneumatic Tube Operator: None Anesthesia: General anesthesia plus regional block Findings: Distal radius fracture Implants: A 3 hole Accu Med volar locking plate, with 4x 2.3 mm locking pegs/screws, and 3 3.5 mm cortical screws Tourniquet time: 66 minutes EBL: 5.0 ml Specimen: None Drains: None Complications: None Disposition: Brought to the recovery room in stable condition Plan: Follow-up in 10-14 days for wound check, suture removal and postop radiographs The patient will be placed in either a short-arm cast . Encouraged no lifting of anything heavier than a cell phone. Please encourage active and passive range of motion of the digits. Follow-up at 4-5 weeks postop for repeat radiographs. Indications: The patient is a 59 year old woman with a right distal radius fracture and right carpal tunnel syndrome. The risks and benefits of operative treatment, including but not limited to risk of damage to blood vessels, nerves, tendons, infection, recurrence, persistent pain or numbness, incomplete resolution of preoperative symptoms, or need for further surgery were discussed with the patient and they wished to proceed with surgery. Procedure: Once consent was obtained patient was brought back to the operating suite and placed in the operating table in a supine position. A regional block was performed by the anesthesia team. Perioperative antibiotics and anesthesia was administered by the anesthesia team. A tourniquet was applied to the proximal aspect of the right upper extremity and the limb was prepped and draped in a standard surgical fashion. The limb was elevated exsanguinated with Esmarch bandage and the tourniquet inflated to 250 mm of mercury for a total tourniquet time of 66 minutes. Once assured that we had a good block, a 2.0 cm longitudinal incision was made centered over the right carpal tunnel. The incision was made through the skin to the subcutaneous tissues using a #15 blade. Dissection was made down to the level of the transverse carpal ligament with care being taken to protect the palmar cutaneous nerve. Once the transverse carpal ligament was clearly visualized, a longitudinal incision was made in the transverse carpal ligament 1st using a #15 blade, then using tenotomy scissors under direct visualization. Care was taken to look for and protect the motor branch of the median nerve when seen in this area. Once satisfied with our carpal tunnel release the wound was irrigated with normal saline. The FluoroScan was used throughout the case to assess our reduction, and facilitate implant placement. A gentle closed reduction was 1st performed on the patient's right distal radius fracture. I then made an 8 cm longitudinal incision over the distal aspect of the flexor carpi radialis tendon. The incision was made through the skin to the subcutaneous tissue using a 15. Blade. Then carefully dissected down to flexor carpi radialis tendon she tenotomy scissors. The FCR tendon sheath was then incised longitudinally using tenotomy scissors under direct visualization. The FCR tendon was then retracted ulnarly. I then made a longitudinal incision in the volar forearm fascia through the floor of FCR tendon sheath using tenotomy scissors under direct visualization. I identified the interval between the radial artery and the flexor tendons. This interval was developed further with my index finger, releasing some of the muscular fibers of the flexor pollicis longus. A dull weatlander retractor was then placed. I then created an ulnarly based flap of the pronator quadratus by releasing the radial and distal edges using a 15. Blade. A Thorne elevator was used to elevate the pronator quadratus from the volar surface of the distal radius. This then revealed to us our distal radius fracture. An open reduction was then performed on our distal radius fracture. I then placed a short narrow [address] [facility] volar locking plate on the volar surface of the distal radius. I placed a single K-wire through the distal aspect of the plate and into the distal radius. This was assessed using fluoroscopic images. I was satisfied with the placement of our plate. I then placed 4x 2.3 mm locking screws/pegs in the distal aspect of the plate and distal radius by 1st drilling bicortically with a 2.0 mm drill bit, measuring with a depth gauge, and placing the appropriate length locking screws/pegs. The placement of our plate and screws was then assessed again using fluoroscopic images. The once satisfied with the placement of the volar locking plate and screws on the distal aspect of the distal radius, the plate was then reduced to the shaft of the radius. I then placed 3 X 3.5 mm cortical screws to the proximal aspect of the plate and into the shaft of the radius. This was done by 1st drilling bicortically with a 2.8 mm drill bit, measuring with a depth gauge, and placing the appropriate length screw. Final radiographs were then obtained. The DRUJ was assessed and found to be stable on exam. I was satisfied with our reduction and placement of all implants. At this point the wound was irrigated with normal saline. The pronator quadratus was reduced back over the volar locking plate using some 3-0 Vicryl suture material. The tourniquet was then deflated and hemostasis was obtained with a brief period of local pressure and bipolar electrocautery. The subcutaneous layer was then reapproximated using some 4-0 Vicryl suture, and the skin edges were reapproximated using some 5 0 Prolene suture. The wound was then infiltrated with some 1% lidocaine with epinephrine postop pain control. A sterile dressing and a short dorsal splint allowing for active flexion and extension of the digits was applied. The patient appears to have tolerated the procedure well and with no complications. All digits were well vascularized conclusion of the case.
--- NOTE | 2025-01-02 09:31 | MHC.SHP ---
Pre-Procedural Eval Section A - 24 Hr Update-Section A only Date of Service: 01/02/25 The patient is an INPATIENT: No Changes since office visit: No Cold of Flu in the past 2 weeks, No New Medical Problems, No Changes in Medication and No Patient answered all questions The patient has been examined within 24 hours of the surgical procedure. The History & Physical has been completed within 30 days and I have reviewed it.: Yes Section B - Complete if H&P > 30 days Chief Complaint: Unspecified fracture of the lower end of right rad Allergies: Allergies Allergy/AdvReac Type Severity Reaction Status Date / Time codeine [CODEINE] Allergy Intermediate DIZZY/NAUSEA, Verified 12/28/24 10:27 nausea/vomiting escitalopram [From LEXAPRO] Allergy Intermediate ? NAUSEA Verified 12/28/24 10:27 meperidine [MEPERIDINE] Allergy Intermediate NAUSEA Verified 12/28/24 10:27 morphine [MORPHINE] Allergy Intermediate PALPITATIONS, Verified 12/28/24 10:27 palpitation oxycodone [OXYCODONE] Allergy Intermediate PALPATATIONS, Verified 12/28/24 10:27 palpitations tramadol Allergy Unknown dizziness, Verified 12/28/24 10:27 nausea Plan I have reviewed the history and physical and performed a pertinent physical examination on my patient. No changes have occurred unless specified. Time Spent With Patient Time: Total time managing care of this patient today ____ minutes.
== END 2025-01-02 13:45 | disposition home or self-care (01) ==
PROVIDERS: PCP Internal Medicine; Visit Provider Orthopaedic Surgery
PROC: (CPT 25608; principal; 2025-01-02 10:30)
PROC: (CPT 64721; 2025-01-02 10:30)
DX: S52.501A Unspecified fracture of the lower end of right radius, initial encounter for closed fracture (principal); G56.01 Carpal tunnel syndrome, right upper limb; M25.531 Pain in right wrist; R20.0 Anesthesia of skin; R20.2 Paresthesia of skin; W01.0XXA Fall on same level from slipping, tripping and stumbling without subsequent striking against object, initial encounter; Y93.01 Activity, walking, marching and hiking; Y92.89 Other specified places as the place of occurrence of the external cause; Y99.9 Unspecified external cause status; M19.041 Primary osteoarthritis, right hand; D64.9 Anemia, unspecified; M19.011 Primary osteoarthritis, right shoulder; M79.641 Pain in right hand; M79.7 Fibromyalgia; Z85.3 Personal history of malignant neoplasm of breast; Z92.3 Personal history of irradiation; Z79.899 Other long term (current) drug therapy; Z88.5 Allergy status to narcotic agent; Z88.8 Allergy status to other drugs, medicaments and biological substances; Z98.890 Other specified postprocedural states; Z87.891 Personal history of nicotine dependence
CPT/HCPCS: 25608; 64721; C1713; J0131; J0690; J1100; J2003; J2004; J2250; J2371; J2405; J2704; J3010

== ENCOUNTER → 2025-01-02 08:47 | Outpatient (BNV) | payer MEDICAID, SELFPAY | PROVIDERS: PCP Internal Medicine; Visit Provider Orthopaedic Surgery | DX: G56.01 Carpal tunnel syndrome, right upper limb (principal); S52.551A Other extraarticular fracture of lower end of right radius, initial encounter for closed fracture | CPT/HCPCS: 25607; 64721 ==

== ENCOUNTER 2025-01-09 12:42 | Outpatient (AMB) | payer MEDICAID, SELFPAY ==
--- NOTE | 2025-01-09 12:44 | A.OFFVIS_ITS ---
Intake Visit Reasons: P/O Rt Distal Radius ORIF & CTR 01/02/25 Intake Note: Diana is a 59 year old female who presents today for a post operative follow up to to concerns of skin discoloration. She is s/p Right Distal Radius ORIF 01/02/25. Patient reports that she is having pain at the proximal aspect of forearm. She reports no pain at the surgical site. Allergies codeine [CODEINE] Allergy (Intermediate, Verified 01/02/25 10:07) DIZZY/NAUSEA, nausea/vomiting escitalopram [From LEXAPRO] Allergy (Intermediate, Verified 01/02/25 10:07) ? NAUSEA meperidine [MEPERIDINE] Allergy (Intermediate, Verified 01/02/25 10:07) NAUSEA morphine [MORPHINE] Allergy (Intermediate, Verified 01/02/25 10:07) PALPITATIONS, palpitation oxycodone [OXYCODONE] Allergy (Intermediate, Verified 01/02/25 10:07) PALPATATIONS, palpitations tramadol Allergy (Unknown, Verified 01/02/25 10:07) dizziness, nausea HPI HPI P/O Rt Distal Radius ORIF & CTR 01/02/25: Details: Diana is a 59 year old female who presents today for a post operative follow up to to concerns of skin discoloration. She is s/p Right Distal Radius ORIF 01/02/25. Patient reports that she is having pain at the proximal aspect of forearm. She reports no pain at the surgical site. [facility] Medical History Primary osteoarthritis of right hand Migraine Right shoulder pain Rotator cuff tendinitis Arthritis of right shoulder region Right hand pain Breast cancer, right Status post radiation therapy Anemia Diarrhea Depression Somatization disorder Migraine equivalent syndrome Anxiety Periodontal disease Fibromyalgia Surgical History History of esophagogastroduodenoscopy (EGD) History of lumpectomy Hx of section Hx of shoulder surgery Hx of colonoscopy Family History Mother HTN (hypertension) Sister Breast cancer Bone cancer Colon polyps Sister Osteoporosis Hypercholesteremia Colon polyps Social History Household Members: None Housing: Apartment Are you a primary childbirth and infant care teacher to a significant other at home: No Do you presently have visiting nurse or other home services: No Alcohol intake: never Patient Tobacco Use Status: Former Tobacco user Years Smoked: 3 service: No Current occupational status: disabled 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501A - Unspecified fracture of the lower end of right radius, initial encounter for closed fracture Category: Medical Plan 1. Status post ORIF of right distal radius and carpal tunnel release DOS 01/02/2025 Patient appears to be recovering well postoperatively Patient was educated about the typical recovery course At this time, splint is padded and rewrapped to prevent irritation just outside the splint Patient was educated on conservative pain management measures, such as rest, ice, elevation, [id number] pain medication as needed Patient was amenable to this plan Patient will follow-up for previously scheduled postoperative for cast placement and one-week, sooner with any acute concerns Orders: Orders XR elbow RT min 3V 01/09/25 M25.521 - Pain in right elbow Coding Level of Care Code Global (08985) Diagnoses Fracture of right distal radius S52.501A
--- OUTSIDE RECORDS SUMMARY | 2025-01-09 14:12 | XMS_ITS | Encounter Summary ---
Author Organization [employer] Address [address] [place] [address] Care Team Providers Care Basin Operator Name Role Phone Umm Coley MD Primary Care Provider + Encounter Details Date Type Department Care Team (Late st Contact Info) Description 12/28/2024 Patient Outreach [facility] [address], [place] [phone] Umm Coley MD [address] [place], [place] [phone] Social History Tobacco Use Types Packs/Day Years [...] 2:00 PM EDT Office Visit [facility] [address] [place] [address] Darrell Myers MD [address] [place] [address] 03/08/2025 10:00 AM EDT Office Visit [facility] [address] [place] [address] Elzbieta, Mariangel [address] [place] [address] documented as of this encounter Visit Diagnoses Not on filedocumented in this encounter Additional Health Concerns Assessment Noted Time PHQ-9 Depression Total Score: 10 024 9:17 AM EDT documented as of this encounter Care Teams Basin Operator Relationship Specialty Start Date End Date Umm Coley MD [address] [place] [id number] PCP - General Family Medicine 10/31/16 [facility] 11/14/24 documented as of this encounter
--- OUTSIDE RECORDS SUMMARY | 2025-01-09 14:12 | XMS_ITS | Encounter Summary ---
Author Organization [employer] Address 75 [facility] 7t [place] [address] Care Team Providers Care Site Safety Representative Name Role Phone Umm Coley MD Primary Care Provider + Reason for Visit * Reason Onset Date Comments Appointment Request 12/26/2024 Encounter Details Date Type Department Care Team ([facility] st Contact Info) Description 12/26/2024 Telephone [facility] MEDICINE [address] [place], [place] [phone] Umm Coley MD 230 [place], [place] [phone] Appointment Request Social History Tobacco Use Types [...] fracture. RN inquired if patient can have DIGITAL PRINTER OPERATOR assist her in dressing in order for patient to be able to come to [facility] to be evaluated. Patient verbalized understanding and reports she will havePCA assist her. Patient reminded of appointment time. Patient to f/u PRN. * Telephone Encounter - Gisela Reynoso RN - 12/26/2024 10:30 AM EST TC placed to [phone] in regards to below message. Patient did [...] at that time tomorrow. Contact pt at [phone] documented in this encounter Plan of Treatment Upcoming Encounters Date Type Department Care Team (Late st Contact Info) Description 02/03/2025 2:00 PM EDT Office Visit [facility] MEDICINE [address] [place] [address] Darrell Myers MD 230 [place] [address] 03/08/2025 10:00 AM EDT Office Visit [facility] ADULT DENTAL 230 [place] [address] Mariangel Ruff 230 [place] [address] documented as of this encounter Visit Diagnoses Not on filedocumented in this encounter Additional Health Concerns Assessment Noted Time PHQ-9 Depression Total Score: 10 024 9:17 AM EDT documented as of this encounter Care Teams Site Safety Representative Relationship Specialty Start Date End Date Umm Coley MD [address] [place] [address] PCP - General Family Medicine 10/31/16 [facility] 11/14/24 documented as of this encounter
--- OUTSIDE RECORDS SUMMARY | 2025-01-09 14:12 | XMS_ITS | Encounter Summary ---
Author Organization [employer] Address 75 [facility] 7t [place] [address] Care Team Providers Care Motorized Squad Captain Name Role Phone Umm Coley MD Primary Care Provider + Reason for Visit * Reason Onset Date Comments ED f/u call 12/26/2024 Encounter Details Date Type Department Care Team ([facility] st Contact Info) Description 12/26/2024 Telephone [facility] MEDICINE 230 [place], [place] [phone] Umm Coley MD 230 [place], [place] [phone] ED f/u call Social History Tobacco Use [...] Patient reports she is scheduled to see [facility] ortho on 12/28 at 10:15am ([facility] Patient is scheduled to see PCP [...] AM EST Noted. TC placed to patient [phone] in regards to below message. Patient did [...] Description 02/03/2025 2:00 PM EDT Office Visit [facility] MEDICINE [address] [place] [address] Darrell Myers MD 230 [place] [address] 03/08/2025 10:00 AM EDT Office Visit [facility] ADULT DENTAL [address] [place] [address] Elzbieta, Mariangel 230 [place] [address] documented as of this encounter Visit Diagnoses Not on filedocumented in this encounter Additional Health Concerns Assessment Noted Time PHQ-9 Depression Total Score: 10 024 9:17 AM EDT documented as of this encounter Care Teams Motorized Squad Captain Relationship Specialty Start Date End Date Umm Coley MD 230 [place] [address] PCP - General Family Medicine 10/31/16 [facility] 11/14/24 documented as of this encounter
--- OUTSIDE RECORDS SUMMARY | 2025-01-09 14:12 | XMS_ITS | Encounter Summary ---
Author Organization [employer] Address 75 [facility] 7t [place] [address] Care Team Providers Care Experimental Technician Name Role Phone Umm Coley MD Primary Care Provider + Reason for Visit * Reason Onset Date Comments FYI 01/06/2025 Encounter Details Date Type Department Care Team ([facility] st Contact Info) Description 01/06/2025 Telephone [facility] MEDICINE 230 [place], [place] [phone] Umm Coley MD 230 [place], [place] [phone] FYI Social History Tobacco Use Types Packs/Day Years [...] Telephone Encounter - Gisela Reynoso RN - 01/06/2025 11:32 AM EST Noted. TC placed to patient [phone] to inform patient she needs to call the surgical office torequest alternative medication d/t post op pain. Patient provided with phone number to surgical office [phone]. Patient to f/u PRN. * Telephone Encounter - Rossana Lawrence - 01/06/2025 8:37 AM EST Tc from pt stating had surgery performed on her right hand on January 02. She was prescribed Ibuprofen 600 MG and Hydrocodone-acetaminophen 5-325 MG. Pt's states she is allergic to codeine therefore she cannot take the medication and is having discomfort in her hand. documented in this encounter Plan of Treatment Upcoming Encounters Date Type Department Care Team (Late st Contact Info) Description 02/03/2025 2:00 PM EDT Office Visit [facility] MEDICINE 230 [place], [place] [phone] Darrell Myers MD 230 [place] [address] 03/08/2025 10:00 AM EDT Office Visit [facility] ADULT DENTAL 230 [place] [address] Mariangel Ruff 230 [place] [address] documented as of this encounter Visit Diagnoses Not on filedocumented in this encounter Additional Health Concerns Assessment Noted Time PHQ-9 Depression Total Score: 10 024 9:17 AM EDT documented as of this encounter Care Teams Experimental Technician Relationship Specialty Start Date End Date Umm Coley MD 230 [place] [address] PCP - General Family Medicine 10/31/16 [facility] 11/14/24 documented as of this encounter
--- OUTSIDE RECORDS SUMMARY | 2025-01-09 14:12 | XMS_ITS | Encounter Summary ---
Author Organization [employer] Address 75 [facility] 7t [place] [address] Care Team Providers Care Slitter And Rewinder Name Role Phone Umm Coley MD Primary [...] Description 02/03/2025 2:00 PM EDT Office Visit [facility] MEDICINE [address] [place] [address] Darrell Myers MD 230 [place] [address] 03/08/2025 10:00 AM EDT Office Visit [facility] ADULT DENTAL [address] [place] [address] Elzbieta Mariagnel [address] [place] [address] documented as of this encounter Visit Diagnoses Not on filedocumented in this encounter Additional Health Concerns Assessment Noted Time PHQ-9 Depression Total Score: 10 024 9:17 AM EDT documented as of this encounter Care Teams Slitter And Rewinder Relationship Specialty Start Date End Date Umm Coley MD [address] [place] [address] PCP - General Family Medicine 10/31/16 [facility] 11/14/24 documented as of this encounter
--- OUTSIDE RECORDS SUMMARY | 2025-01-09 14:12 | XMS_ITS | Encounter Summary ---
Author Organization [employer] Address 75 [facility] 7t [place] [address] Care Team Providers Care Cover Stripper Name Role Phone Umm Coley MD Primary Care Provider + Reason for Visit * Reason Onset Date Comments PCP Contact 12/08/2024 Medbox set up. Encounter Details Date Type Department Care Team ([facility] Contact Info) Description 12/13/2024 Telephone [facility] MEDICINE 230 [place], [place] [phone] Umm Coley MD 230 [place], [place] [phone] PCP Contact (Medbox set up.) Social History [...] EST Patient came on Thursday12/09/24 with her NEEDLE LOOM WEAVER and they brought the log med box [...] with pharmaco education, discussing with patient and NEEDLE LOOM WEAVER regarding the useand side effects of medications. [...] counselor for this polypharmacy I gave patient's NEEDLE LOOM WEAVER the med box for that day and the remaining of the pillboxes were pulled into the lock box again, her daughter has the black box combination to open it up. documented in this encounter Plan of Treatment Upcoming Encounters Date Type Department Care Team (Late st Contact Info) Description 02/03/2025 2:00 PM EDT Office Visit [facility] MEDICINE 230 [place] [address] Darrell Myers MD [address] [place] [address] 03/08/2025 10:00 AM EDT Office Visit [facility] ADULT DENTAL 230 [place], [place] [phone] ElzbietaMariangel 230 [place], [place] [phone] documented as of this encounter Visit Diagnoses Not on filedocumented in this encounter Additional Health Concerns Assessment Noted Time PHQ-9 Depression Total Score: 10 024 9:17 AM EDT documented as of this encounter Care Teams Cover Stripper Relationship Specialty Start Date End Date Umm Coley MD [address] [place] [phone] PCP - General Family Medicine 10/31/16 [facility] 11/14/24 documented as of this encounter
--- OUTSIDE RECORDS SUMMARY | 2025-01-09 14:12 | XMS_ITS | Encounter Summary ---
Author Organization [employer] Address 75 [facility] 7t [place] [address] Care Team Providers Care New Car Get Ready Mechanic Name Role Phone Umm Coley MD Primary Care Provider + Reason for Visit * Reason Onset Date Comments Results 12/29/2024 Encounter Details Date Type Department Care Team ([facility] st Contact Info) Description 12/29/2024 Telephone [facility] MEDICINE 230 [place], [place] [phone] Umm Coley MD 230 [place], [place] [phone] Results Social History Tobacco Use Types Packs/Day Years [...] Telephone Encounter - Gisela Reynoso RN - 12/29/2024 8:33 AM EST TC placed to patient [phone] in regards to below message. Patient informed chest Xray and RibsXray returned WNL. Patient verbalized understanding. Patient to f/u PRN. * Telephone Encounter - Rossana Lawrence - 12/29/2024 8:14 AM EST TC from pt requesting call back regarding Results. Type of results: XRAY Chest Date when done: 12/27 Facility: [facility] documented in this encounter Plan of Treatment Upcoming Encounters Date Type Department Care Team (Late st Contact Info) Description 02/03/2025 2:00 PM EDT Office Visit [facility] MEDICINE 230 [place] [address] Darrell Myers MD 230 [place] [address] 03/08/2025 10:00 AM EDT Office Visit [facility] ADULT DENTAL 230 [place] [address] Mariangel Ruff 230 [place] [address] documented as of this encounter Visit Diagnoses Not on filedocumented in this encounter Additional Health Concerns Assessment Noted Time PHQ-9 Depression Total Score: 10 024 9:17 AM EDT documented as of this encounter Care Teams New Car Get Ready Mechanic Relationship Specialty Start Date End Date Umm Coley MD [address] [place] [address] PCP - General Family Medicine 10/31/16 [facility] 11/14/24 documented as of this encounter
--- OUTSIDE RECORDS SUMMARY | 2025-01-09 14:12 | XMS_ITS | Encounter Summary ---
Author Organization [employer] Address 75 [facility] 7t [place] [address] Care Team Providers Care Carousel Operator Name Role Phone Umm Coley MD Primary Care Provider + Encounter Details Date Type Department Care Team (Late st Contact Info) Description 11/03/2022 Orders Only [facility] MEDICINE 230 [place], [place] [phone] Umm Coley MD 230 [place], [place] [phone] Osteopenia after menopause (Primary Dx) Social History [...] 2:00 PM EDT Office Visit [facility] MEDICINE [address] [place] [address] Darrell Myers MD 230 [place] [address] 03/08/2025 10:00 AM EDT Office Visit [facility] ADULT DENTAL 230 [place], [place] [phone] Elzbieta, Mariangel [address] [place] [address] Scheduled Orders Name Type Priority Associated Diagnoses Orde r Schedule Vitamin D, 25-Hydroxy, Total, Immunoassay Lab Routine Osteopenia after menopause Expected: 11/03/2022 (Approximate), Expires: 11/03/2023 PTH, Intact (ICMA) And Ionized Calcium Lab Routine Osteopenia after menopause Expected: 11/03/2022 (Approximate), Expires: 11/03/2023 documented as of this encounter Visit Diagnoses Diagnosis Osteopenia after menopause- Primary documented in this encounter Care Teams Carousel Operator Relationship Specialty Start Date End Date Umm Coley MD [address] [place] [address] [phone] PCP - General Family Medicine 10/31/16 Eva Nunez Ux Designer 04/05/24 07/06/24 [facility] 05/11/24 11/17/24 [facility] 11/14/24 documented as of this encounter
--- OUTSIDE RECORDS SUMMARY | 2025-01-09 14:12 | XMS_ITS | Encounter Summary ---
Author Organization [employer] Address 75 [facility] 7t [place] [address] Care Team Providers Care Editor Map Name Role Phone Umm Coley MD Primary Care Provider + Reason for Visit * Reason Onset Date Comments appt 01/08/2024 Encounter Details Date Type Department Care Team ([facility] st Contact Info) Description 01/08/2024 Telephone [facility] ADULT DENTAL [address] [place], [place] [phone] Homer Strong, DMD [address] [place] [address] appt Social History Tobacco Use Types Packs/Day [...] 2:00 PM EDT Office Visit [facility] MEDICINE 230 [place] [address] Darrell Myers MD 230 [place] [address] 03/08/2025 10:00 AM EDT Office Visit [facility] ADULT DENTAL [address] [place] [address] Mariangel Ruff [address] [place] [address] documented as of this encounter Visit Diagnoses Not on filedocumented in this encounter Additional Health Concerns Assessment Noted Time PHQ-9 Depression Total Score: 21 024 11:31 AM EST documented as of this encounter Care Teams Editor Map Relationship Specialty Start Date End Date Umm Coley MD [address] [place] [address] PCP - General Family Medicine 10/31/16 Eva Nunez It Applications Manager 04/05/24 07/06/24 [facility] 05/11/24 11/17/24 [facility] 11/14/24 documented as of this encounter
--- OUTSIDE RECORDS SUMMARY | 2025-01-09 14:12 | XMS_ITS | Encounter Summary ---
Author Organization [employer] Address 75 [facility] 7t [place] [address] Care Team Providers Care Journeyman Plumber Name Role Phone Umm Coley MD Primary Care Provider + Reason for Visit * Reason Onset Date Comments Call Back Request 12/20/2024 Encounter Details Date Type Department Care Team ([facility] st Contact Info) Description 12/20/2024 Telephone [facility] MEDICINE 230 [place], [place] [phone] Umm Coley MD 230 [place], [place] [phone] Call Back Request Social History Tobacco Use [...] PM EST RN was informed by [facility] ([facility]) that they have changed the patients nurse to a female nurse. Patient's VNA will now be [facility]. * Telephone Encounter - Deyvi Bray RN - 12/21/2024 9:51 AM EST TC returned to patient (via [facility] clerical dentist assistant) no answer left voicemail to return call to clinic. * Telephone Encounter - Rossana Lawrence - 12/21/2024 9:32 AM EST Tc from pt requesting a call back regarding message below. Mohawk * Telephone Encounter - Umm Coley MD - 12/20/2024 4:24 PM EST Nurse supervisor payroll note re meds appreciated. Agree with POC, [...] 3:28 PM EST Spoke to patient (with [facility] medical staffing coordinator) regarding VNA nurse and meds (as discussed [...] of medications in sharps container ([facility] medical staffing coordinator witnessed disposal). One pill was orange/red capsule [...] if we can switch them. RN called [facility] VNA spoke to director Zara whowas [...] verbalized understanding and will return call to manager of warehouse if she is able to find another [...] reports she has a new VNA service ([facility]) which started on Thursday. Patient reports on Thursday it was two females who went to the patients melissa and they put all the medications on [...] name and confirm he is employed by [facility]. Patient reports she is having a hard time trusting the VNAand that he is aware of what he is doing. TC placed to VNA Randy [phone] to discuss above situation. Randy VNA reports [...] to PCP who requested RN call Deyvi (manager of warehouse) to speak to patient. RN called Deyvi. [...] a Nurse of PCP Contact pt at [phone] documented in this encounter Plan of Treatment Upcoming Encounters Date Type Department Care Team (Late st Contact Info) Description 02/03/2025 2:00 PM EDT Office Visit [facility] MEDICINE 230 [place] [address] Darrell Myers MD 230 [place] [address] 03/08/2025 10:00 AM EDT Office Visit [facility] ADULT DENTAL 230 [place] [address] Mariangel Ruff [address] [place] [address] documented as of this encounter Visit Diagnoses Not on filedocumented in this encounter Additional Health Concerns Assessment Noted Time PHQ-9 Depression Total Score: 10 024 9:17 AM EDT documented as of this encounter Care Teams Journeyman Plumber Relationship Specialty Start Date End Date Umm Coley MD [address] [place] [address] PCP - General Family Medicine 10/31/16 [facility] 11/14/24 documented as of this encounter
--- OUTSIDE RECORDS SUMMARY | 2025-01-09 14:12 | XMS_ITS | Encounter Summary ---
Author Organization [employer] Address 75 [facility] 7t [place] [address] Care Team Providers Care Flying Instructor Name Role Phone Umm Coley MD Primary Care Provider + Reason for Visit * Reason Comments Medication Problem Encounter Details Date Type Department Care Team ([facility] st Contact Info) Description 12/08/2024 12:15 PM EST Office Visit [facility] MEDICINE 230 [place], [place] [phone] Umm Coley MD 230 [place], [place] [phone] Recurrent falls (Primary Dx); Neuropathy of both [...] the nurse that she had followed to [facility] wanted her to sign some [facility] documents (reportedly to provide services?) that she didn't feel comfortable signing and didn't offer further explanation so the nurse walked out of the house and she was discharged from the [facility]. She's concerned that she only has med [...] comfortable taking meds by herself and her SENIOR DIRECTOR OF STRATEGY doesn't know how to put them on [...] we can organize the medications. Pt and SENIOR DIRECTOR OF STRATEGY agreed with the plan of care. POC discussed with team nurse and crew supervisor. Neuropathy of both feet Generalized anxiety [...] we can organize the medications. Pt and SENIOR DIRECTOR OF STRATEGY agreed with the plan of care. POC discussed with team nurse and crew supervisor. * Addendum Note - Umm Coley MD - 12/08/2024 12:15 PM ESTAddended by: UMM COLEY on: 12/12/2024 12:28 PM Modules accepted: Level of Service documented in this encounter Plan of Treatment Upcoming Encounters Date Type Department Care Team (Late st Contact Info) Description 02/03/2025 2:00 PM EDT Office Visit [facility] MEDICINE [address] [place] [address] Darrell Myers MD 230 [place] [address] 03/08/2025 10:00 AM EDT Office Visit [facility] ADULT DENTAL [address] [place] [address] Elzbieta, Mariangel [address] [place] [address] documented as of this encounter Visit Diagnoses Diagnosis Recurrent falls- Primary Neuropathy of both feet Generalized anxiety disorder documented in this encounter Additional Health Concerns Assessment Noted Time PHQ-9 Depression Total Score: 10 024 9:17 AM EDT documented as of this encounter Care Teams Flying Instructor Relationship Specialty Start Date End Date Umm Coley MD [address] [place] [address] PCP - General Family Medicine 10/31/16 [facility] 11/14/24 documented as of this encounter
--- OUTSIDE RECORDS SUMMARY | 2025-01-09 14:12 | XMS_ITS | Encounter Summary ---
Author Organization [employer] [facility] Address [address] [place] [address] 7t [place] [address] Care Team Providers Care Automatic Dispenser Mechanic Name Role Phone Umm Coley MD Primary Care Provider + Encounter Details Date Type Department Care Team (Latest Contact Info) Description 09/16/2022 Abstract [facility] Dental, Provider, DDS Social History [...] Description 02/03/2025 2:00 PM EDT Office Visit [facility] MEDICINE [address] [place] [address] Darrell Myers MD 230 [place] [address] 03/08/2025 10:00 AM EDT Office Visit [facility] ADULT DENTAL [address] [place] [address] Trino Ruffaris [address] [place] [address] documented as of this encounter Visit Diagnoses Not on filedocumented in this encounter Care Teams Automatic Dispenser Mechanic Relationship Specialty Start Date End Date Umm Coley MD 230 [place] [address] PCP - General Family Medicine 10/31/16 Eva Nunez Push Button Switch Assembler 04/05/24 07/06/24 [facility] 05/11/24 11/17/24 [facility] 11/14/24 documented as of this encounter
--- OUTSIDE RECORDS SUMMARY | 2025-01-09 14:12 | XMS_ITS | Encounter Summary ---
Author Organization [employer] Address 75 [facility] 7t [place] [address] Care Team Providers Care Cage/Vault Supervisor Name Role Phone Umm Coley MD Primary Care Provider + Reason for Visit * Reason Onset Date Comments Appointment Request 12/22/2024 Encounter Details Date Type Department Care Team ([facility] st Contact Info) Description 12/22/2024 Telephone [facility] MEDICINE 230 [place], [place] [phone] Umm Coley MD 230 [place], [place] [phone] Appointment Request Social History Tobacco Use Types [...] 10:27 AM EST TC returned to patient [phone] in regards to below message. Patient reports [...] AM EST Tc from pt returning call. Mexican * Telephone Encounter - Gisela Reynoso RN - 12/22/2024 8:36 AM EST TC placed to patient [phone] in regards to below message. Patient did [...] available to be scheduled. Contact pt at [phone] documented in this encounter Plan of Treatment Upcoming Encounters Date Type Department Care Team (Late st Contact Info) Description 02/03/2025 2:00 PM EDT Office Visit [facility] MEDICINE [address] [place] [address] Darrell Myers MD 230 [place] [address] 03/08/2025 10:00 AM EDT Office Visit [facility] ADULT DENTAL [address] [place] [address] Elzbieta, Mariangel [address] [place] [address] documented as of this encounter Visit Diagnoses Not on filedocumented in this encounter Additional Health Concerns Assessment Noted Time PHQ-9 Depression Total Score: 10 024 9:17 AM EDT documented as of this encounter Care Teams Cage/Vault Supervisor Relationship Specialty Start Date End Date Umm Coley MD 230 [place] [address] PCP - General Family Medicine 10/31/16 [facility] 11/14/24 documented as of this encounter
--- OUTSIDE RECORDS SUMMARY | 2025-01-09 14:12 | XMS_ITS | Encounter Summary ---
Author Organization [employer] Address 75 [facility] 7t [place] [address] Care Team Providers Care Welt Wheeler Name Role Phone Umm Coley MD Primary Care Provider + Encounter Details Date Type Department Care Team (Late st Contact Info) Description 12/28/2024 Telephone [facility] MEDICINE 230 [place], [place] [phone] Umm Coley MD 230 [place], [place] [phone] Social History Tobacco Use Types Packs/Day Years [...] Description 02/03/2025 2:00 PM EDT Office Visit [facility] MEDICINE [address] [place] [address] Darrell Myers MD [address] [place] [address] 03/08/2025 10:00 AM EDT Office Visit [facility]ULT [facility] [address] [place] [address] Mariangel Ruff [address] [place] [address] documented as of this encounter Visit Diagnoses Not on filedocumented in this encounter Additional Health Concerns Assessment Noted Time PHQ-9 Depression Total Score: 10 024 9:17 AM EDT documented as of this encounter Care Teams Welt Wheeler Relationship Specialty Start Date End Date Umm Coley MD 230 [place] [address] PCP - General Family Medicine 10/31/16 [facility] 11/14/24 documented as of this encounter
--- OUTSIDE RECORDS SUMMARY | 2025-01-09 14:12 | XMS_ITS | Encounter Summary ---
Author Organization [employer] [facility] Address [address] [place] [address] [address] [place] [address] Care Team Providers Care Book Store Associate Name Role Phone Umm Coley MD Primary Care Provider + Encounter Details Date Type Department Care Team (Latest Contact Info) Description 11/14/2019 Abstract [facility] CONVERSIONS Dental, Provider, DDS Social History [...] Description 02/03/2025 2:00 PM EDT Office Visit [facility] MEDICINE [address] [place] [address] Darrell Myers MD [address] [place] [address] 03/08/2025 10:00 AM EDT Office Visit [facility] ADULT DENTAL [address] [place] [address] Trino Ruffaris [address] [place] [address] documented as of this encounter Visit Diagnoses Not on filedocumented in this encounter Care Teams Book Store Associate Relationship Specialty Start Date End Date Umm Coley MD [address] [place] [address] PCP - General Family Medicine 10/31/16 Eva Nunez Ob Gyn Physician Assistant 04/05/24 07/06/24 [facility] 05/11/24 11/17/24 [facility] 11/14/24 documented as of this encounter
--- OUTSIDE RECORDS SUMMARY | 2025-01-09 14:12 | XMS_ITS | Encounter Summary ---
Author Organization [employer] [facility] Address [address] [place] [address] 7[address] [place] [address] Care Team Providers Care Insurance Administrative Assistant Name Role Phone Umm Coley MD Primary Care Provider + Encounter Details Date Type Department Care Team (Late st Contact Info) Description 09/24/2022 Abstract [facility] ADULT DENTAL [address] [place] [address] Dental, Provider, DDS Social History Tobacco Use [...] Description 02/03/2025 2:00 PM EDT Office Visit [facility] MEDICINE [address] [place] [address] Darrell Myers MD [address] [place] [address] 03/08/2025 10:00 AM EDT Office Visit [facility] ADULT DENTAL [address] [place] [address] Mariangel Ruff [address] [place] [address] documented as of this encounter Procedures Procedure [...] on filedocumented in this encounter Care Teams Insurance Administrative Assistant Relationship Specialty Start Date End Date Umm Coley MD [address] [place] [id number] PCP - General Family Medicine 10/31/16 Eva Nunez Tool Adjuster 04/05/24 07/06/24 [facility] 05/11/24 11/17/24 [facility] 11/14/24 documented as of this encounter
--- OUTSIDE RECORDS SUMMARY | 2025-01-09 14:12 | XMS_ITS | Encounter Summary ---
Author Organization [employer] Address [address] [facility] 7t [place] [address] Care Team Providers Care Tele Tech Name Role Phone Umm Coley MD Primary Care Provider + Reason for Visit * Reason Comments [facility] outreach Encounter Details Date Type Department Care Team (Latest Contact Info) Description 12/28/2024 Patient Outreach [facility] MEDICINE [address] [place] [address] Umm Coley MD [address] [place] [address] Care Coordination (C3 [facility] [place] telephone call [...] outbound call to patient introducing herself from [facility] CM Department, in regards to offering services. Patient's name and was confirmed. Patient agrees toparticipate in program. Appt. for initial assessment scheduled for 01/12/25@ 10:00AM. CHW reinforceddirect contact information or for any additional questions or concerns and extended clinic hours on Mondays and Wednesdays, and Walk-In Urgent Care Located in [facility] of [facility]. Patient provided with after-hours line for [facility], , which offer night time triage service and option to transfer to electronics processor provider if needed. Patient verbalizes understanding, and able to repeat back to insurance underwriter sales. documented in this encounter Plan of Treatment Upcoming Encounters Date Type Department Care Team (Late st Contact Info) Description 02/03/2025 2:00 PM EDT Office Visit [facility] MEDICINE [address] [place] [address] Darrell Myers MD [address] [place] [address] 03/08/2025 10:00 AM EDT Office Visit [facility] ADULT DENTAL [address] [place] [address] Mariangel uRff [address] [place] [address] documented as of this encounter Visit Diagnoses Not on filedocumented in this encounter Additional Health Concerns Assessment Noted Time PHQ-9 Depression Total Score: 10 024 9:17 AM EDT documented as of this encounter Care Teams Tele Tech Relationship Specialty Start Date End Date Umm Coley MD [address] [place] [address] PCP - General Family Medicine 10/31/16 [facility] 11/14/24 documented as of this encounter
--- OUTSIDE RECORDS SUMMARY | 2025-01-09 14:12 | XMS_ITS | Clinical Summary ---
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 (10/08/2022 9:30 AM EST) [facility] Clinical Information: None given [facility] LMP: NONE GIVEN [facility] Prev. PAP: NONE GIVEN [facility] Prev. BX: NONE GIVEN [facility] SOURCE: None given [facility] Statement Of Adequacy: SATISFACTORY FOR EVALUATION Age and/or menstrual status not provided [facility] Interpretation/Re sult: [facility] Comment: Negative for intraepithelial lesion or malignancy. Atrophic pattern; predominantly parabasal cells Operator/Assistant Foreman: Siria [facility] Comment: DMM CT(ASCP) CT screening location: [address] ??[phone] Review Operator/Assistant Foreman: [employer] [place] [employer] Comment: SHON CT(ASCP) CT screening location: [address] ??[phone] (Always Message) Que st [facility] Comment: EXPLANATORY NOTE: The Pap is a [...] HPV nRNA E6/E7 Not Detected Not Detected Adreal Comment: Methodology: Financial Systems Director-Mediated Amplification This assay detects E6/E7 viral messenger RNA (mRNA) from 14 high-risk HPV types (16,18,31,33,35,39,45,51,52,56,58,59,66,68). Cervical sources are required for HPV testing. If a vaginal source from a patient who has had a total hysterectomy with removal of cervix was submitted, please contact the testing laboratory for alternative testing options. For additional information, please refer to http://education.Treedom/faq/BPU458z0 (This link if provided for information/ educational purposes only.) 10/08/2022 9:30 AM EST 10/10/2022 1:07 AM EST Narrative [facility] - 10/14/2022 7:08 PM EST FASTING: UNKNOWN us [facility] PATHOLOGY ORDERABLES Final Result [facility] [address] [place] [address], [place] [address] [employer] [place] [employer] [address], [place] [phone] * HIV AB/AG (04/30/2022 11:28 AM EDT) [...] detection of this assay. ?? The [employer] Clerk HIV Ag/Ab Combo assay result and supplemental assay results should be interpreted in conjunction with the patient's clinical presentation, history and other laboratory results. ??If the results are inconsistent with clinical evidence, additional testing is suggested to confirm the result. Hepatitis B Surface Antibody REACTIVE Nonreactive [facility] Comment:REACTIVE: > 11.99 mI U/mL Hepatitis B Surface Antigen Negative Negative [facility] Hepatitis B Core Antibody Nonreactive Nonreactive [facility] 04/30/2022 11:2 8 AM EDT Shalonda Coley MD HISTORICAL/NON ORDERABLE LABS Final Result [facility] [address] from Last 3 Months or Most Recently Relevant to Health Maintenance Insurance [facility] C[place] [facility] MEDICAID STAND ADULT Care Teams Packaging Tech Relationship Specialty Start Date End Date Shalonda Coley MD [address] [place] [phone] PCP - General Family Medicine 10/31/16 [facility] 11/14/24
--- OUTSIDE RECORDS SUMMARY | 2025-01-09 14:12 | XMS_ITS | Encounter Summary ---
Author Organization [employer] Address [address] [facility] 7t [place] [address] Care Team Providers Care Development Professional Name Role Phone Umm Coley MD Primary Care Provider + Reason for Visit * Reason Onset Date Comments VNA services 01/04/2025 Encounter Details Date Type Department Care Team ([facility] st Contact Info) Description 01/04/2025 Telephone [facility] MEDICINE [address] [place], [place] [phone] Umm Coley MD 230 [place], [place] [phone] VNA services Social History Tobacco Use Types [...] Telephone Encounter - Gisela Reynoso RN - 01/04/2025 12:29 PM EST Ofe notified RN during home visit today, the patient was in her room with the door closed. Patient refused to allow VNA to lay eye on the patient. Per CUSTOM DECORATING CONSULTANT, patient is laying in bed d/t being in pain (possibly r/t recent surgery from 01/02/25 d/t R distal radius fracture). VNA was able to fill med finished goods planner and leave out for patient to take medication. VNA will see patient tomorrow. documented in this encounter Plan of Treatment Upcoming Encounters Date Type Department Care Team (Late st Contact Info) Description 02/03/2025 2:00 PM EDT Office Visit [facility] MEDICINE [address] [place] [address] Darrell Myers MD 230 [place] [address] 03/08/2025 10:00 AM EDT Office Visit [facility] ADULT DENTAL [address] [place] [address] Mariangel Ruff [address] [place] [address] documented as of this encounter Visit Diagnoses Not on filedocumented in this encounter Additional Health Concerns Assessment Noted Time PHQ-9 Depression Total Score: 10 024 9:17 AM EDT documented as of this encounter Care Teams Development Professional Relationship Specialty Start Date End Date Umm Coley MD [address] [place] [address] PCP - General Family Medicine 10/31/16 [facility] 11/14/24 documented as of this encounter
--- OUTSIDE RECORDS SUMMARY | 2025-01-09 14:12 | XMS_ITS | Encounter Summary ---
Author Organization [employer] [facility] Address [address] [place] [address] 7t [place] [address] Care Team Providers Care Clinical Informatics Strategist Name Role Phone Umm Coley MD Primary Care Provider + Encounter Details Date Type Department Care Team (Latest Contact Info) Description 03/13/2022 Abstract [facility] CONVERSIONS Dental, Provider, DDS Social History [...] Description 02/03/2025 2:00 PM EDT Office Visit [facility] MEDICINE [address] [place] [address] Darrell Myers MD 230 [place] [address] 03/08/2025 10:00 AM EDT Office Visit [facility] ADULT DENTAL [address] [place] [address] Trino Ruffaris [address] [place] [address] documented as of this encounter Visit Diagnoses Not on filedocumented in this encounter Care Teams Clinical Informatics Strategist Relationship Specialty Start Date End Date Umm Coley MD 230 [place] [address] PCP - General Family Medicine 10/31/16 Eva Nunez Resident Care Manager 04/05/24 07/06/24 [facility] 05/11/24 11/17/24 [facility] 11/14/24 documented as of this encounter
--- OUTSIDE RECORDS SUMMARY | 2025-01-09 14:12 | XMS_ITS | Encounter Summary ---
Author Organization [employer] Address 75 [facility] 7t [place] [address] Care Team Providers Care Robotics Engineer Name Role Phone Umm Coley MD Primary Care Provider + Reason for Visit * Reason Onset Date Comments Chart prep 12/23/2024 Encounter Details Date Type Department Care Team ([facility] st Contact Info) Description 12/23/2024 Telephone [facility] MEDICINE 230 [place], [place] [phone] Umm Coley MD 230 [place], [place] [phone] Chart prep Social History Tobacco Use Types [...] Description 02/03/2025 2:00 PM EDT Office Visit [facility] MEDICINE [address] [place] [address] Darrell Myers MD 230 [place] [address] 03/08/2025 10:00 AM EDT Office Visit [facility] ADULT DENTAL [address] [place] [address] Mariangel Ruff [address] [place] [address] documented as of this encounter Visit Diagnoses Not on filedocumented in this encounter Additional Health Concerns Assessment Noted Time PHQ-9 Depression Total Score: 10 024 9:17 AM EDT documented as of this encounter Care Teams Robotics Engineer Relationship Specialty Start Date End Date Umm Coley MD [address] [place] [address] PCP - General Family Medicine 10/31/16 [facility] 11/14/24 documented as of this encounter
--- OUTSIDE RECORDS SUMMARY | 2025-01-09 14:12 | XMS_ITS | Encounter Summary ---
Author Organization [employer] [facility] Address [address] [place] [address] 7t [place] [address] Care Team Providers Care Rn Patient Services Name Role Phone Umm Coley MD Primary Care Provider + Reason for Referral * Consultation (Routine) - Closed Specialty Diagnoses / Procedures Referred By Contkassie t Referred To Contact Case Management Diagnoses Encounter for monitoring of patient compliance in drug treatment program Umm Coley MD [address] [place] [address] Phone: tel: fax: Referral ID Status Reason Start Date Expiration Date V isits Requested Visits Authorized [id number] Closed Specialty Services Required 12/27/2024 12/27/2025 1 1 Reason for Visit * Reason Comments Weakness, Gen Encounter Details Date Type Department Care Team (Late st Contact Info) Description 12/27/2024 1:00 PM EST Office Visit [facility] MEDICINE 230 [place], [place] [phone] Umm Coley MD [address] [place], [place] [phone] Encounter for monitoring of patient compliance in [...] not addressed this issue to anyone at [facility] VNA. Acute Concerns: She complains of [...] regarding medication management by current VNA services ([facility]). I asked her if she wants me to cancel the services and try to find a new one, but she declined. I suggested her to reach out to [facility] supervisors and verify credential information and address issues that she has with current medication management. I will ask our care managers to reach out to her to assist her with this issue and try to stabilizeher on a VNA service. Will ask [facility] VNA service to send a list [...] VIA [facility] [place] NECESARIO FOR ALLERGIES 90 tablet [...] * Assessment & Plan Note - Adriana Mgcraw - 12/27/2024 4:32 PM ESTAssociated Problem(s): Encounter for monitoring of patient compliance in drug treatment program Pt continues to have questions regarding medication management by current VNA services ([facility]). I asked her if she wants [...] EDT Office Visit [facility] MEDICINE 230 [place] [address] Darrell Myers MD [address] [place] [address] 03/08/2025 10:00 AM EDT Office Visit [facility] ADULT DENTAL 230 [place] [address] ElzbietaMariangel 230 [place] [address] Scheduled Referrals Name Type Priority Associated Diagnoses [...] PM EST Narrative 12/27/2024 2:35 PM EST ?[facility] ?[address] ?[place] [address] ?XRay Report ? Signed ? Patient: Myles,Diana L ?MR#: [id number] ?? 8 ? : 1965 ?Acct:[id number] ? Age/Sex: 59 / F ?ADM Date: 02/25/25 ? Loc: HO.HHCX ? Attending Dr: Umm Coley MD ? Ordering Physician: Umm Coley MD ?? Date of Service: 12/27/24 ?? Procedure(s): XR ribs RT 2V ?? Accession Number(s): [id number] ? cc: Umm Coley MD ? EXAMINATION: [...] DD/ 1356 ? TD/TT: 12/27/24 1424 ? [employer] Layout: ? Procedure Note Adalgisa, Chin - 12/27/[address] [address] XRay Report Signed Patient: Diana Myles LMR#: [id number] 8 : 1965Acct:[id number] Age/Sex: 59 / FADM Date: 12/27/24 Loc: HO.HHCX Attending Dr: Umm Coley MD Ordering Physician: Umm Coley MD Date of Service: 12/27/24 Procedure(s): XR ribs RT 2V Accession Number(s): [id number] cc: Umm Coley MD EXAMINATION: XR CHEST [...] 12/27/24 1433 DD/ 1356 TD/TT: 12/27/24 1424 [employer] Layout: us Umm Coley MD IMG XR PROCEDURES Final Result * XR Chest 2 Views (12/27/2024 1:56 PM EST) Anatomical Region Laterality Modality Chest Radiographic Kyleigh ging 12/27/2024 1:56 PM EST Narrative 12/27/2024 2:36 PM EST ?[facility] ?[address] ?[place] [address] ?XRay Report ? Signed ? Patient: Myles,Diana L ?MR#: [id number] ?? 8 ? : 1965 ?Acct:[id number] ? Age/Sex: 59 / F ?ADM Date: 02/25/25 ? Loc: HO.HHCX ? Attending Dr: Umm Coley MD ? Ordering Physician: Umm Coley MD ?? Date of Service: 12/27/24 ?? Procedure(s): XR chest 2V ?? Accession Number(s): [id number] ? cc: Umm Coley MD ? EXAMINATION: [...] DD/ 1356 ? TD/TT: 12/27/24 1424 ? [employer] Layout: ? Procedure Note Chin Diana - 12/27/[address] [address] XRay Report Signed Patient: Diana Myles LMR#: [id number] 8 : 1965Acct:[id number] Age/Sex: 59 / FADM Date: 12/27/24 Loc: HO.HHCX Attending Dr: Umm Coley MD Ordering Physician: Umm Coley MD Date of Service: 12/27/24 Procedure(s): XR chest 2V Accession Number(s): [id number] cc: Umm Coley MD EXAMINATION: XR CHEST [...] 12/27/24 1433 DD/ 1356 TD/TT: 12/27/24 1424 [employer] Layout: us Umm Coley MD IMG XR PROCEDURES Final Result documented in this encounter Visit Diagnoses Diagnosis Encounter for monitoring of patient compliance in drug treatment program- Primary Intercostal pain documented in this encounter Additional Health Concerns Assessment Noted Time PHQ-9 Depression Total Score: 10 024 9:17 AM EDT documented as of this encounter Care Teams Rn Patient Services Relationship Specialty Start Date End Date Umm Coley MD [address] [place] [phone] PCP - General Family Medicine 10/31/16 [facility] 11/14/24 documented as of this encounter
--- OUTSIDE RECORDS SUMMARY | 2025-01-09 14:12 | XMS_ITS | Encounter Summary ---
Author Organization [employer] Address 75 [facility] 7t [place] [address] Care Team Providers Care Group Cio Name Role Phone Umm Coley MD Primary Care Provider + Reason for Visit * Reason Onset Date Comments Medication List 12/28/2024 Encounter Details Date Type Department Care Team ([facility] st Contact Info) Description 12/28/2024 Telephone [facility] MEDICINE 230 [place], [place] [phone] Umm Coley MD 230 [place], [place] [phone] Medication List Social History Tobacco Use Types [...] they currently have is the one from [facility] (our office). RN was informed the [...] 02/03/2025 2:00 PM EDT Office Visit [facility] MEDICINE [address] [place], [place] [phone] Darrell Myers MD [address] [place] [address] 03/08/2025 10:00 AM EDT Office Visit [facility] ADULT DENTAL [address] [place] [address] Mariangel Ruff [address] [place] [address] documented as of this encounter Visit Diagnoses Not on filedocumented in this encounter Additional Health Concerns Assessment Noted Time PHQ-9 Depression Total Score: 10 024 9:17 AM EDT documented as of this encounter Care Teams Group Cio Relationship Specialty Start Date End Date Umm Coley MD [address] [place] [address] PCP - General Family Medicine 10/31/16 [facility] 11/14/24 documented as of this encounter
--- OUTSIDE RECORDS SUMMARY | 2025-01-09 14:12 | XMS_ITS | Encounter Summary ---
Author Organization [employer] Address [address] [facility] 7t [place] [address] Care Team Providers Care Aviation Technician Name Role Phone Umm Coley MD Primary Care Provider + Encounter Details Date Type Department Care Team (Late st Contact Info) Description 01/02/2025 Orders Only [facility] External Provider, [facility] Social History Tobacco Use Types Packs/Day Years [...] Description 02/03/2025 2:00 PM EDT Office Visit [facility] MEDICINE 230 [place] [address] Darrell Myers MD 230 [place] [address] 03/08/2025 10:00 AM EDT Office Visit [facility] ADULT DENTAL [address] [place] [address] Trino Ruffaris [address] [place] [address] documented as of this encounter Procedures Procedure Name Priority Date/Time Associated Diagnosis Comments FL GUIDANCE IN OR Routine 01/02/2025 12: 09 PM EST documented in this encounter Results * FL Guidance in OR (01/02/2025 12:09 PM EST) Anatomical Region Laterality Modality X-Ray Angiograph y 01/02/2025 12:0 9 PM EST Narrative 01/03/2025 9:58 AM EST ? [facility] ?[address] ?[place] [address] ? Fluoroscopy Report ? Signed ? Patient: Myles,Diana L ?MR#: [id number] ?? 8 ? : 1965 ?Acct:[id number] ? Age/Sex: 59 / F ?ADM Date: 03/03/25 ? Loc: HO.SSS ? Attending Dr: Sydney Cleveland MD ? Ordering Physician: Sydney Cleveland MD ?? Date of Service: 01/02/25 ?? Procedure(s): FL guidance in OR ?? Accession Number(s): [id number] ? cc: Umm Coley MD; Sydney Cleveland MD ? EXAMINATION: [...] DD/ 1209 ? TD/TT: 01/02/25 1510 ? Divemaster: MSM ? Procedure Note Chin Diana - 01/03/2025 [place] [address] Fluoroscopy Report Signed Patient: Diana Myles LMR#: [id number] 8 : 1965Acct:[id number] Age/Sex: 59 / FADM Date: 01/02/25 Loc: HO.SSS Attending Dr: Sydney Cleveland MD Ordering Physician: Sydney Cleveland MD Date of Service: 01/02/25 Procedure(s): FL guidance in OR Accession Number(s): [id number] cc: Umm Coley MD; Sydney Cleveland MD EXAMINATION: FLUOROSCOPY [...] by: Natanael Smith MD 01/03/2025 09:56 AM [facility] Dictated By: Natanael Smith MD Signed By: <Electronically signed by Natanael Smith MD in OV> 01/03/25 0956 DD/ 1209 TD/TT: 01/02/25 1510 Divemaster: ANTONY [facility] External Provider IMG IR PROCEDURES Final Result documented in this encounter Visit Diagnoses Not on filedocumented in this encounter Additional Health Concerns Assessment Noted Time PHQ-9 Depression Total Score: 10 06/10/ 024 9:17 AM EDT documented as of this encounter Care Teams Aviation Technician Relationship Specialty Start Date End Date Umm Coley MD [address] [place] [phone] PCP - General Family Medicine 10/31/16 [facility] 11/14/24 documented as of this encounter
--- OUTSIDE RECORDS SUMMARY | 2025-01-09 14:13 | XMS_ITS | Encounter Summary ---
Author Organization [employer] Address 75 [facility] 7t [place] [address] Care Team Providers Care Rail Signal Worker Name Role Phone Umm Coley MD Primary Care Provider + Reason for Visit * Reason Onset Date Comments Appointment 02/24/2023 Encounter Details Date Type Department Care Team ([facility] st Contact Info) Description 02/24/2023 Telephone [facility] ADULT DENTAL [address] [place] [address] Johnny Gonzalez, DMD [address] [place] [address] Appointment Social History Tobacco Use Types Packs/Day [...] 2:00 PM EDT Office Visit [facility] MEDICINE 230 [place] [address] Darrell Myers MD [address] [place] [address] 03/08/2025 10:00 AM EDT Office Visit [facility] ADULT DENTAL [address] [place] [address] Trino Ruffaris [address] [place] [address] documented as of this encounter Visit Diagnoses Not on filedocumented in this encounter Care Teams Rail Signal Worker Relationship Specialty Start Date End Date Umm Coley MD [address] [place] [address] PCP - General Family Medicine 10/31/16 Eva Nunez Fmd Teacher 04/05/24 07/06/24 [facility] 05/11/24 11/17/24 [facility] 11/14/24 documented as of this encounter
--- OUTSIDE RECORDS SUMMARY | 2025-01-09 14:13 | XMS_ITS | Encounter Summary ---
Author Organization [employer] [facility] Address [address] [place] [address] 7t [place] [address] Care Team Providers Care Senior Dynamics Crm Developer Name Role Phone Umm Coley MD Primary Care Provider + Reason for Visit * Reason Comments Med Refill Encounter Details Date Type Department Care Team (Late st Contact Info) Description 06/10/2023 Refill [facility] MEDICINE 230 [place], [place] [phone] Yenny Morris MD [address] [place], [place] [phone] Rash Social History Tobacco Use Types Packs/Day [...] Description 02/03/2025 2:00 PM EDT Office Visit [facility] MEDICINE [address] [place] [phone] Darrell Myers MD 230 [place], [place] [phone] 03/08/2025 10:00 AM EDT Office Visit [facility] ADULT DENTAL [address] [place] [address] Mariangel Ruff [address] [place] [address] documented as of this encounter Visit Diagnoses Diagnosis Rash Rash and other nonspecific skin eruption documented in this encounter Additional Health Concerns Assessment Noted Time PHQ-9 Depression Total Score: 12 023 1:58 PM EDT documented as of this encounter Care Teams Senior Dynamics Crm Developer Relationship Specialty Start Date End Date Umm Coley MD [address] [place] [address] PCP - General Family Medicine 10/31/16 Eva Nunez Wire Technician 04/05/24 07/06/24 [facility] 05/11/24 11/17/24 [facility] 11/14/24 documented as of this encounter
--- OUTSIDE RECORDS SUMMARY | 2025-01-09 14:13 | XMS_ITS | Encounter Summary ---
Author Organization [employer] Address [address] [facility] 7t [place] [address] Care Team Providers Care University Relations Recruiter Name Role Phone Umm Coley MD Primary Care Provider + Reason for Visit * Reason Onset Date Comments pre med prior to dental treatment 08/23/2024 Encounter Details Date Type Department Care Team ([facility] st Contact Info) Description 08/23/2024 Telephone [facility] ADULT DENTAL [address] [place], [place] [phone] Johnny Gonzalez, DMD [address] [place] [address] pre med prior to dental treatment Social [...] also spoke with Nina in the front office spec with a run through of what was happening with the patient and she stated she would also send something to provider for clarificationDR documented in this encounter Plan of Treatment Upcoming Encounters Date Type Department Care Team (Late st Contact Info) Description 02/03/2025 2:00 PM EDT Office Visit [facility] MEDICINE [address] [place] [address] Darrell Myers MD 230 [place] [address] 03/08/2025 10:00 AM EDT Office Visit [facility] ADULT DENTAL [address] [place] [address] Mariangel Ruff [address] [place] [address] documented as of this encounter Visit Diagnoses Not on filedocumented in this encounter Additional Health Concerns Assessment Noted Time PHQ-9 Depression Total Score: 10 024 9:17 AM EDT documented as of this encounter Care Teams University Relations Recruiter Relationship Specialty Start Date End Date Umm Coley MD [address] [place] [address] PCP - General Family Medicine 10/31/16 [facility] 05/11/24 11/17/24 [facility] 11/14/24 documented as of this encounter
--- OUTSIDE RECORDS SUMMARY | 2025-01-09 14:13 | XMS_ITS | Encounter Summary ---
Author Organization [facility] Address [address] [place] [address] 7t [place] [address] Care Team Providers Care Emergency Care Attendant Name Role Phone Umm Coley MD Primary Care Provider + Reason for Visit * Reason Comments Med Refill Encounter Details Date Type Department Care Team (Late st Contact Info) Description 08/01/2023 Refill [facility] MEDICINE [address] [place], [place] [phone] Umm Coley MD 230 [place], [place] [phone] Social History Tobacco Use Types Packs/Day Years [...] Description 02/03/2025 2:00 PM EDT Office Visit [facility] MEDICINE [address] [place], [place] [phone] Darrell Myers MD 230 [place], [place] [phone] 03/08/2025 10:00 AM EDT Office Visit [facility] ADULT DENTAL [address] [place] [address] Mariangel Ruff [address] [place] [address] documented as of this encounter Visit Diagnoses Not on filedocumented in this encounter Additional Health Concerns Assessment Noted Time PHQ-9 Depression Total Score: 12 023 1:58 PM EDT documented as of this encounter Care Teams Emergency Care Attendant Relationship Specialty Start Date End Date Umm Coley MD 230 [place] [address] PCP - General Family Medicine 10/31/16 Eva Nunez Air Transportation Provider 04/05/24 07/06/24 [facility] 05/11/24 11/17/24 [facility] 11/14/24 documented as of this encounter
--- OUTSIDE RECORDS SUMMARY | 2025-01-09 14:13 | XMS_ITS | Encounter Summary ---
Author Organization [employer] Address [address] [place] [address] 7t [place] [address] Care Team Providers Care Mysql Database Developer Name Role Phone Umm Coley MD Primary Care Provider + Encounter Details Date Type Department Care Team (Late Contact Info) Description 03/05/2023 Orders Only [facility] MEDICINE [address] [place] [address] [phone] Umm Coley MD [address] [place] [address] [phone] Social History Tobacco Use Types Packs/Day Years [...] 02/03/2025 2:00 PM EDT Office Visit [facility] MEDICINE [address] [place] [address] [phone] Darrell Myers MD 230 [place] [address] 03/08/2025 10:00 AM EDT Office Visit [facility] ADULT DENTAL 230 [place], [place] [phone] Mariangel Ruff [address] [place] [address] documented as of this encounter Visit Diagnoses Not on filedocumented in this encounter Care Teams Mysql Database Developer Relationship Specialty Start Date End Date Umm Coley MD 230 [place] [address] PCP - General Family Medicine 10/31/16 Eva Nunez Electrical Accessories I Assembler 04/05/24 07/06/24 [facility] 05/11/24 11/17/24 [facility] 11/14/24 documented as of this encounter
--- OUTSIDE RECORDS SUMMARY | 2025-01-09 14:13 | XMS_ITS | Encounter Summary ---
Author Organization [employer] Address [address] [facility] 7t [place] [address] Care Team Providers Care Weapons Officer Naval Activity Name Role Phone Umm Coley MD Primary Care Provider + Reason for Visit * Reason Onset Date Comments Appointment 03/17/2023 Encounter Details Date Type Department Care Team ([facility] st Contact Info) Description 03/17/2023 Telephone [facility] ADULT DENTAL [address] [place] [address] Johnny Gonzalez, DMD 505 [place] [address] Appointment Social History Tobacco Use Types Packs/Day [...] Description 02/03/2025 2:00 PM EDT Office Visit [facility] MEDICINE 230 [place] [address] Darrell Myers MD 230 [place] [address] 03/08/2025 10:00 AM EDT Office Visit [facility] ADULT DENTAL 230 [place] [address] Elzbieta, Mariangel 230 [place] [address] documented as of this encounter Visit Diagnoses Not on filedocumented in this encounter Care Teams Weapons Officer Naval Activity Relationship Specialty Start Date End Date Umm Coley MD [address] [place] [address] PCP - General Family Medicine 10/31/16 Eva Nunez Graduate Student 04/05/24 07/06/24 [facility] 05/11/24 11/17/24 [facility] 11/14/24 documented as of this encounter
--- OUTSIDE RECORDS SUMMARY | 2025-01-09 14:13 | XMS_ITS | Encounter Summary ---
Author Organization [employer] Address 75 [facility] 7t [place] [address] Care Team Providers Care Family Law Mediator Name Role Phone Umm Coley MD Primary Care Provider + Reason for Visit * Reason Onset Date Comments Appointment 06/15/2023 Encounter Details Date Type Department Care Team ([facility] st Contact Info) Description 06/15/2023 Telephone [facility] ADULT DENTAL 230 [facility] [place] [address] Johnny Gonzalez, DMD 505 [place] [address] Appointment Social History Tobacco Use Types Packs/Day [...] Description 02/03/2025 2:00 PM EDT Office Visit [facility] MEDICINE [address] [place] [address] Darrell Myers MD [address] [place] [address] 03/08/2025 10:00 AM EDT Office Visit [facility] ADULT DENTAL [address] [place] [address] Elzbieta, Mariangel [address] [place] [address] documented as of this encounter Visit Diagnoses Not on filedocumented in this encounter Additional Health Concerns Assessment Noted Time PHQ-9 Depression Total Score: 12 023 1:58 PM EDT documented as of this encounter Care Teams Family Law Mediator Relationship Specialty Start Date End Date Umm Coley MD 230 [place] [address] PCP - General Family Medicine 10/31/16 Eva Nunez Core Composer Machine Tender 04/05/24 07/06/24 [facility] 05/11/24 11/17/24 [facility] 11/14/24 documented as of this encounter
--- OUTSIDE RECORDS SUMMARY | 2025-01-09 14:13 | XMS_ITS | Encounter Summary ---
Author Organization [employer] Address 75 [facility] 7t [place] [address] Care Team Providers Care Bowl Topper Name Role Phone Umm Coley MD Primary Care Provider + Reason for Visit * Reason Onset Date Comments Care Management 12/28/2024 [id number] revie w Encounter Details Date Type Department Care Team ([facility] st Contact Info) Description 12/28/2024 Telephone [facility] MEDICINE 230 [place], [place] [phone] Umm Coley MD 230 [place], [place] [phone] Care Management ([id number] review) Social History Tobacco Use Types Packs/Day [...] back pain, arthritis of knee. Specialists include [facility], [facility] derm, [facility] PT, [facility] vision, [facility] OT, [facility] dental, [facility] pulmonology, [facility] pain management, [facility] GI, [facility] neurology. ED visits within the last 12 months include [facility] 12/23, [facility] 02/28-03/02/24. Last appointment in PCP office on 12/27/24. No future appointment scheduled. documented in this encounter Plan of Treatment Upcoming Encounters Date Type Department Care Team (Late st Contact Info) Description 02/03/2025 2:00 PM EDT Office Visit [facility] MEDICINE 230 [place] [address] Darrell Myers MD 230 [place] [address] 03/08/2025 10:00 AM EDT Office Visit [facility] ADULT DENTAL 230 [place], [place] [phone] ElzbietaTrinoMariangel 230 [place] [address] documented as of this encounter Visit Diagnoses Not on filedocumented in this encounter Additional Health Concerns Assessment Noted Time PHQ-9 Depression Total Score: 10 024 9:17 AM EDT documented as of this encounter Care Teams Bowl Topper Relationship Specialty Start Date End Date Umm Coley MD [address] [place] [address] PCP - General Family Medicine 10/31/16 [facility] 11/14/24 documented as of this encounter
--- OUTSIDE RECORDS SUMMARY | 2025-01-09 14:13 | XMS_ITS | Encounter Summary ---
Author Organization [employer] Address [address] [facility] 7t [place] [address] Care Team Providers Care Portrait Painter Name Role Phone Umm Coley MD Primary Care Provider + Reason for Visit * Reason Comments Med Refill Encounter Details Date Type Department Care Team (Late Contact Info) Description 05/21/2023 Refill [facility] MEDICINE 230 [place], [place] [phone] Umm Coley MD 230 [place] [address] Arthritis of knee Social History Tobacco Use [...] Description 02/03/2025 2:00 PM EDT Office Visit [facility] MEDICINE 230 [place] [address] Darrell Myers MD 230 [place] [address] 03/08/2025 10:00 AM EDT Office Visit [facility] ADULT DENTAL 230 [place] [address] Elzbieta, Mariangel 230 [place] [address] documented as of this encounter Visit Diagnoses Diagnosis Arthritis of knee Unspecified arthropathy, lower leg documented in this encounter Additional Health Concerns Assessment Noted Time PHQ-9 Depression Total Score: 12 023 1:58 PM EDT documented as of this encounter Care Teams Portrait Painter Relationship Specialty Start Date End Date Umm Coley MD [address] [place] [address] PCP - General Family Medicine 10/31/16 Eva Nunez Medical Equipment Repairer 04/05/24 07/06/24 [facility] 05/11/24 11/17/24 [facility] 11/14/24 documented as of this encounter
--- OUTSIDE RECORDS SUMMARY | 2025-01-09 14:13 | XMS_ITS | Encounter Summary ---
Author Organization [employer] Address 75 [facility] 7t [place] [address] Care Team Providers Care Wet Machine Tender Name Role Phone Umm Coley MD Primary Care Provider + Reason for Visit * Reason Comments Med Change Request Encounter Details Date Type Department Care Team ([facility] Contact Info) Description 03/20/[address] [facility] ADULT DENTAL 230 [place] [address] Johnny Gonzalez DMD 505 [place] [address] Social History Tobacco Use Types Packs/Day Years [...] Description 02/03/2025 2:00 PM EDT Office Visit [facility] MEDICINE 230 [place] [address] Darrell Myers MD 230 [place] [address] 03/08/2025 10:00 AM EDT Office Visit [facility] ADULT DENTAL 230 [place], [place] [phone] ElzbietaTrinoMariangel 230 [place], [place] [phone] documented as of this encounter Visit Diagnoses Not on filedocumented in this encounter Care Teams Wet Machine Tender Relationship Specialty Start Date End Date Umm Coley MD 230 [place], [place] [phone] PCP - General Family Medicine 10/31/16 Eva Nunez Speech Therapist Technician 04/05/24 07/06/24 [facility] 05/11/24 11/17/24 [facility] 11/14/24 documented as of this encounter
--- OUTSIDE RECORDS SUMMARY | 2025-01-09 14:13 | XMS_ITS | Encounter Summary ---
Author Organization [facility] Address [address] [place] [address] 7t [place] [address] Care Team Providers Care Supervisor Communications And Signals Name Role Phone Umm Coley MD Primary Care Provider + Encounter Details Date Type Department Care Team (Latest Contact Info) Description 11/23/2020 Abstract [facility] CONVERSIONS Dental, Provider, DDS [...] Description 02/03/2025 2:00 PM EDT Office Visit [facility] MEDICINE 230 [place] [address] Darrell Myers MD 230 [place] [address] 03/08/2025 10:00 AM EDT Office Visit [facility] ADULT DENTAL [address] [place] [address] Trino Ruffaris 230 [place] [address] documented as of this encounter Visit Diagnoses Not on filedocumented in this encounter Care Teams Supervisor Communications And Signals Relationship Specialty Start Date End Date Umm Coley MD 230 [place] [address] PCP - General Family Medicine 10/31/16 Eva Nunez Drafter Structural 04/05/24 07/06/24 [facility] 05/11/24 11/17/24 [facility] 11/14/24 documented as of this encounter
--- OUTSIDE RECORDS SUMMARY | 2025-01-09 14:13 | XMS_ITS | Encounter Summary ---
Author Organization [employer] Address 75 [facility] 7t [place] [address] Care Team Providers Care Ski Lift Mechanic Name Role Phone Umm Coley MD Primary Care Provider + Reason for Visit * Reason Comments Med Change Request Encounter Details Date Type Department Care Team ([facility] Contact Info) Description 03/20/2023 Refill [facility] ADULT DENTAL 230 [place] [address] Johnny Gonzalez DMD 505 [place] [address] Social History Tobacco Use Types Packs/Day Years [...] Visit [facility] MEDICINE 230 [place] [address] Darrell Myers MD 230 [place] [address] 03/08/2025 10:00 AM EDT Office Visit [facility] ADULT DENTAL [address] [place], [place] [phone] ElzbietaTrinoMariangel 230 [place], [place] [phone] documented as of this encounter Visit Diagnoses Not on filedocumented in this encounter Care Teams Ski Lift Mechanic Relationship Specialty Start Date End Date Umm Coley MD 230 [place], [place] [phone] PCP - General Family Medicine 10/31/16 Eva Nunez Sanitation Associate 04/05/24 07/06/24 [facility] 05/11/24 11/17/24 [facility] 11/14/24 documented as of this encounter
--- OUTSIDE RECORDS SUMMARY | 2025-01-09 14:13 | XMS_ITS | Encounter Summary ---
Author Organization [employer] Address [address] [facility] 7t [place] [address] Care Team Providers Care Wool Hat Hydraulicker Name Role Phone Umm Coley MD Primary Care Provider + Encounter Details Date Type Department Care Team (Late st Contact Info) Description 08/23/2024 Orders Only [facility] ADULT DENTAL [address] [place], [place] [phone] Johnny Gonzalez, DMD 505 [place], [place] [phone] Social History Tobacco Use Types Packs/Day Years [...] Visit [facility] MEDICINE 230 [place] [address] Darrell Myers MD 230 [place] [address] 03/08/2025 10:00 AM EDT Office Visit [facility] ADULT DENTAL [address] [place] [address] Elzbieta, Mariangel [address] [place] [address] documented as of this encounter Visit Diagnoses Not on filedocumented in this encounter Additional Health Concerns Assessment Noted Time PHQ-9 Depression Total Score: 10 024 9:17 AM EDT documented as of this encounter Care Teams Wool Hat Hydraulicker Relationship Specialty Start Date End Date Umm Coley MD [address] [place] [address] PCP - General Family Medicine 10/31/16 [facility] 05/11/24 11/17/24 [facility] 11/14/24 documented as of this encounter
--- OUTSIDE RECORDS SUMMARY | 2025-01-09 14:13 | XMS_ITS | Encounter Summary ---
Author Organization [employer] Address [address] [place] [address] 7t [place] [address] Care Team Providers Care Retail Receiving Clerk Name Role Phone Umm Coley MD Primary Care Provider + Reason for Visit * Reason Comments Med Refill Encounter Details Date Type Department Care Team (Late st Contact Info) Description 02/05/2023 Refill [facility] MEDICINE 230 [place], [place] [phone] Umm Coley MD 230 [place], [place] [phone] Arthritis of knee Social History Tobacco Use [...] Upcoming Encounters Date Type Department Care Team ([facility] Contact Info) Description 02/03/2025 2:00 PM EDT Office Visit [facility] MEDICINE 230 [place], [place] [phone] Darrell Myers MD 230 [place] [address] 03/08/2025 10:00 AM EDT Office Visit [facility] ADULT DENTAL 230 [place], [place] [phone] Mariangel Ruff [address] [place], [place] [phone] documented as of this encounter Visit Diagnoses Diagnosis Arthritis of knee Unspecified arthropathy, lower leg documented in this encounter Care Teams Retail Receiving Clerk Relationship Specialty Start Date End Date Umm Coley MD 230 [place], [place] [phone] PCP - General Family Medicine 10/31/16 Eva Nunez Driver License Technician 04/05/24 07/06/24 [facility] 05/11/24 11/17/24 [facility] 11/14/24 documented as of this encounter
--- OUTSIDE RECORDS SUMMARY | 2025-01-09 14:13 | XMS_ITS | Encounter Summary ---
Author Organization [employer] Address 75 [facility] 7t [place] [address] Care Team Providers Care Dip Stand Loader Name Role Phone Umm Coley MD Primary Care Provider + Reason for Visit * Reason Onset Date Comments Nurse Triage 01/06/2025 Encounter Details Date Type Department Care Team ([facility] st Contact Info) Description 01/06/2025 Telephone [facility] MEDICINE 230 [place], [place] [phone] Umm Coley MD 230 [place], [place] [phone] Nurse Triage Social History Tobacco Use Types Packs/Day Years [...] encounter Miscellaneous Notes * Telephone Encounter - Elisabeth Dover RN - 01/06/2025 9:11 AM EST called pt to triage, spoke to pt. through [employer]. pt requesting post op appt for someconcerns. pt reports had repsir of right fractured radius, insertion of plates and screws, and repair of right carpal tunnel. pt states no signs of infection, high fevers, or other associated symptoms. pt reports some intermittent numbness of her right finger tips. advised to pt to call her surgeon's office for further recommendations or to be seen if needed. pt has post op clearance appt on 01/17. advised to follow post op instructions and call back as needed. pt understands and agrees with plan. insurance verified. Protocol Used: Hand Pain (Adult) Protocol-Based Disposition: Home Care Positive Triage Question: * Hand/wrist pain * All higher-acuity triage questions were negative Care Advice Discussed: * Reassurance and Education - Hand Pain * Pain Medicines * Pain Medicines - Extra Notes and Warnings * Reasons To Call Back - Mild pain lasts over 7 days - You become worse * Telephone Encounter - Rossana Lawrence - 01/06/2025 8:43 AM EST Symptom: Hand or Wrist Pain - Not From Injury (surgery january 02) Outcome: Schedule an appointment to be seen within 24 hours Reason: Caller denied all higher acuity questions The caller accepted this outcome. [phone] documented in this encounter Plan of Treatment Upcoming Encounters Date Type Department Care Team (Late st Contact Info) Description 02/03/2025 2:00 PM EDT Office Visit [facility] MEDICINE [address] [place] [address] Darrell Myers MD 230 [place] [address] 03/08/2025 10:00 AM EDT Office Visit [facility] ADULT DENTAL 230 [place], [place] [phone] Mariangel Ruff [address] [place] [address] documented as of this encounter Visit Diagnoses Not on filedocumented in this encounter Additional Health Concerns Assessment Noted Time PHQ-9 Depression Total Score: 10 024 9:17 AM EDT documented as of this encounter Care Teams Dip Stand Loader Relationship Specialty Start Date End Date Umm Coley MD [address] [place] [address] [phone] PCP - General Family Medicine 10/31/16 [facility] 11/14/24 documented as of this encounter
== END 2025-01-09 13:32 | disposition home or self-care (01) ==
PROVIDERS: PCP Internal Medicine
DX: S52.501A Unspecified fracture of the lower end of right radius, initial encounter for closed fracture (principal)
CPT/HCPCS: 99024

== ENCOUNTER 2025-01-09 12:42 | Outpatient (REF) | payer MEDICAID, SELFPAY ==
--- NOTE | ~2025-01-09 | XR_ITS ---
EXAMINATION: XR ELBOW, RIGHT CLINICAL INFORMATION: M25.521 - Pain in right elbow COMPARISON: None available. TECHNIQUE: AP, lateral, and oblique views of the right elbow. FINDINGS: No acute cortical disruption or malalignment. No gross joint effusion. No subcutaneous emphysema. No lytic or blastic lesions. Fiberglas cast in the forearm no within the [id number]. XR/XR elbow RT min 3V IMPRESSION: No acute fracture or dislocation. Electronically signed by: Steven Coreas MD 02/03/2025 07:54 AM EDT
== END 2025-01-09 12:43 | disposition home or self-care (01) ==
LOC: HO.HOSX 12:42
PROVIDERS: PCP Internal Medicine
DX: M25.521 Pain in right elbow (principal); S52.501A Unspecified fracture of the lower end of right radius, initial encounter for closed fracture
CPT/HCPCS: 73080; 99212

== ENCOUNTER → 2025-01-09 13:02 | Outpatient (BNV) | payer MEDICAID, SELFPAY | PROVIDERS: PCP Internal Medicine; Visit Provider Radiology Diagnostic Radiology | DX: M25.521 Pain in right elbow (principal) | CPT/HCPCS: 73080 ==

== ENCOUNTER 2025-01-17 08:26 | Outpatient (REF) | payer MEDICAID, SELFPAY ==
--- NOTE | ~2025-01-17 | XR_ITS ---
EXAMINATION: XR WRIST 3 OR MORE VIEWS RIGHT HISTORY: M25.531 - Pain in right wrist COMPARISON: Comparison is made with the prior examination dated 12/28/2024. FINDINGS: Three views of the right wrist are submitted. Osseous mineralization is normal. The patient is status post internal fixation of the previously noted fracture of the distal radial metaphysis with a sideplate and multiple orthopedic screws. Alignment is anatomic. The fracture line is faintly visible, consistent with healing. Again seen is a fracture of the distal ulnar metaphysis as well as the ulnar styloid. The metaphyseal fracture is less evident, consistent with healing. The joint spaces are preserved. There is persistent soft tissue swelling. XR/XR wrist RT min 3V IMPRESSION: Healing internally fixed fracture of the distal radial metaphysis. Healing ulnar metaphyseal fracture. Electronically signed by: Beka Packer MD 01/17/2025 03:05 PM EDT
== END 2025-01-17 08:27 | disposition home or self-care (01) ==
LOC: HO.HOSX 08:26
DX: M25.531 Pain in right wrist (principal); S52.501D Unspecified fracture of the lower end of right radius, subsequent encounter for closed fracture with routine healing; Z98.890 Other specified postprocedural states
CPT/HCPCS: 73110; 99212

== ENCOUNTER 2025-01-17 11:25 | Outpatient (AMB) | payer MEDICAID, SELFPAY ==
--- NOTE | 2025-01-17 11:35 | A.OFFVIS_ITS ---
Intake Visit Reasons: Rt Distal Radius ORIF & CTR 01/02/25 Intake Note: Diana is a 59 year old right hand dominant female who presents today for a post operative visit s/p right distal radius fracture ORIF and right carpal tunnel release DOS: 01/02/25 w/ Dr Sydney Cleveland. Patient reports she is having a lot of pain. She mentions her pain is a 08/10 on the pain scale. Allergies codeine [CODEINE] Allergy (Intermediate, Verified 01/17/25 11:41) DIZZY/NAUSEA, nausea/vomiting escitalopram [From LEXAPRO] Allergy (Intermediate, Verified 01/17/25 11:41) ? NAUSEA meperidine [MEPERIDINE] Allergy (Intermediate, Verified 01/17/25 11:41) NAUSEA morphine [MORPHINE] Allergy (Intermediate, Verified 01/17/25 11:41) PALPITATIONS, palpitation oxycodone [OXYCODONE] Allergy (Intermediate, Verified 01/17/25 11:41) PALPATATIONS, palpitations tramadol Allergy (Unknown, Verified 01/17/25 11:41) dizziness, nausea HPI HPI Rt Distal Radius ORIF & CTR 01/02/25: Details: Diana is a 59 year old right hand dominant female who presents today for a post operative visit s/p right distal radius fracture ORIF and right carpal tunnel release DOS: 01/02/25 w/ Dr Sydney Cleveland. Patient reports she is having a lot of pain. She mentions her pain is a 08/10 on the pain scale. Denies ongoing numbness and tingling. [facility] Medical History Primary osteoarthritis of right hand Migraine Right shoulder pain Rotator cuff tendinitis Arthritis of right shoulder region Right hand pain Breast cancer, right Status post radiation therapy Anemia Diarrhea Depression Somatization disorder Migraine equivalent syndrome Anxiety Periodontal disease Fibromyalgia Surgical History History of esophagogastroduodenoscopy (EGD) History of lumpectomy Hx of section Hx of shoulder surgery Hx of colonoscopy Family History Mother HTN (hypertension) Sister Breast cancer Bone cancer Colon polyps Sister Osteoporosis Hypercholesteremia Colon polyps Social History Household Members: None Housing: Apartment Are you a primary wound care specialist to a significant other at home: No Do you presently have visiting nurse or other home services: No Alcohol intake: never Patient Tobacco Use Status: Former Tobacco user Years Smoked: 3 service: No Current occupational status: disabled 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 Review of Systems Const All systems reviewed & are unremarkable except as noted in HPI and below Physical Exam Extrem Other: Incision sites on R wrists well approximated, well healing, no evidence of infection No evidence of surrounding erythema There is some mild ecchymosis noted just proximal to the previous splint on the right wrist, primarily on the volar side of the forearm No evidence of infection Patient is able to flex and extend the digits of the right hand without difficulty Compartments soft, nontender Distal sensation intact Capillary refill brisk Results Reviewed Results Reviewed: X-rays obtained in the office today and independently reviewed by me, Zhou Sosa PA-C, demonstrate surgically reduced fracture of the right distal radius with orthopedic hardware in satisfactory clinical alignment. Assessment & Plan Assessment & Plan (1) Fracture of right distal radius: Code(s): S52.501A - Unspecified fracture of the lower end of right radius, initial encounter for closed fracture Category: Medical Plan 1. Status post ORIF of right distal radius and carpal tunnel release DOS 01/02/2025 Patient appears to be recovering well postoperatively Patient was educated about the typical recovery course At this time, Patient is placed into a short arm cast Educated on proper cast care and precautions Patient was educated on conservative pain management measures, such as rest, ice, elevation, [id number] pain medication as needed Patient was amenable to this plan Patient will follow-up in 2 weeks for repeat assesment, sooner with any acute concerns Orders: Orders XR wrist RT min 3V Today M25.531 - Pain in right wrist Coding Level of Care Code Global (02186) Diagnoses Fracture of right distal radius S52.501A
--- OUTSIDE RECORDS SUMMARY | 2025-01-17 13:56 | XMS_ITS | Encounter Summary ---
Author Organization [facility] Address [address] [facility] 7t [place] [address] Care Team Providers Care Mechanical Engineering Professor Name Role Phone Umm Coley MD Primary Care Provider + [place] RN Unavailable [phone] Encounter Details Date Type Department Care Team ([facility] st Contact Info) Description 01/13/2025 Population Health Risk Score [facility] (C3) Department [address] [id number] Provider, Population Health Generic Social History Tobacco Use Types Packs/Day Years [...] 02/03/2025 2:00 PM EDT Office Visit [facility] MEDICINE [address] [place] [address] Darrell Myers MD 230 [place] [address] 03/08/2025 10:00 AM EDT Office Visit [facility] ADULT DENTAL [address] [place] [address] Elzbieta, Mariangel [address] [place] [address] documented as of this encounter Visit Diagnoses Not on filedocumented in this encounter Additional Health Concerns Assessment Noted Time PHQ-9 Depression Total Score: 10 024 9:17 AM EDT documented as of this encounter Care Teams Mechanical Engineering Professor Relationship Specialty Start Date End Date Umm Coley MD 230 [place] [address] PCP - General Family Medicine 10/31/16 [place] Me[place], BEBA [address] [place] [address] Cloth Examiner MachineIndustrial Gas Servicer Supervisor 01/12/25 [facility] 11/14/24 documented as of this encounter
--- OUTSIDE RECORDS SUMMARY | 2025-01-17 13:57 | XMS_ITS | Encounter Summary ---
Author Organization [employer] Address [address] [facility] 7t [place] [address] Care Team Providers Care Tower Switch Operator Name Role Phone Umm Coley MD Primary Care Provider + Reason for Visit * Reason Onset Date Comments FYI 01/06/2025 Encounter Details Date Type Department Care Team ([facility] st Contact Info) Description 01/06/2025 Telephone [facility] MEDICINE [address] [place], [place] [phone] Umm Coley MD [address] [place], [place] [phone] FYI Social History Tobacco Use Types Packs/Day [...] AM EST Noted. TC placed to patient [phone] to inform patient she needs to call the surgical office torequest alternative medication d/t post op pain. Patient provided with phone number to surgical office [phone]. Patient to f/u PRN. * Telephone Encounter [...] 02/03/2025 2:00 PM EDT Office Visit [facility] MEDICINE [address] [place], [place] [phone] Darrell Myers MD [address] [place] [address] 03/08/2025 10:00 AM EDT Office Visit [facility] ADULT DENTAL [address] [place] [address] Mariangel Ruff [address] [place] [address] documented as of this encounter Visit Diagnoses Not on filedocumented in this encounter Additional Health Concerns Assessment Noted Time PHQ-9 Depression Total Score: 10 024 9:17 AM EDT documented as of this encounter Care Teams Tower Switch Operator Relationship Specialty Start Date End Date Umm Coley MD [address] [place] [address] PCP - General Family Medicine 10/31/16 [facility] 11/14/24 documented as of this encounter
--- OUTSIDE RECORDS SUMMARY | 2025-01-17 13:57 | XMS_ITS | Encounter Summary ---
Author Organization [facility] Address [address] [place] [address] 7t [place] [address] Care Team Providers Care Clinical Research Nurse Name Role Phone Umm Coley MD Primary Care Provider + [place] RN Unavailable [phone] Encounter Details Date Type Department Care Team (Latest Contact Info) Description 11/14/2019 Abstract [facility] CONVERSIONS Dental, Provider, DDS Social [...] Description 02/03/2025 2:00 PM EDT Office Visit [facility] MEDICINE 230 [place] [address] Darrell Myers MD 230 [place] [address] 03/08/2025 10:00 AM EDT Office Visit [facility] ADULT DENTAL 230 [place] [address] Mariangel Ruff 230 [place] [address] documented as of this encounter Visit Diagnoses Not on filedocumented in this encounter Care Teams Clinical Research Nurse Relationship Specialty Start Date End Date Umm Coley MD 230 [place] [address] PCP - General Family Medicine 10/31/16 [place] Meier, BEBA [address] [place] [address] Lap CheckerHydraulic Modeling Engineer 01/12/25 Eva Nunez Lap Checker 04/05/24 07/06/24 [facility] 05/11/24 11/17/24 [facility] 11/14/24 documented as of this encounter
--- OUTSIDE RECORDS SUMMARY | 2025-01-17 13:57 | XMS_ITS | Encounter Summary ---
Author Organization [email or web address] Address [address] [facility] 7t [place] [address] Care Team Providers Care Photostatic Copy Maker Name Role Phone Umm Coley MD Primary Care Provider + Encounter Details Date Type Department Care Team (Late st Contact Info) Description 12/28/2024 Patient Outreach [facility] MEDICINE 230 [place], [place] [phone] Umm Coley MD 230 [place], [place] [phone] Social History Tobacco Use Types Packs/Day Years [...] Description 02/03/2025 2:00 PM EDT Office Visit [facility] MEDICINE [address] [place] [address] Darrell Myers MD 230 [place] [address] 03/08/2025 10:00 AM EDT Office Visit [facility] ADULT DENTAL [address] [place] [address] Elzbieta, Mariangel [address] [place] [address] documented as of this encounter Visit Diagnoses Not on filedocumented in this encounter Additional Health Concerns Assessment Noted Time PHQ-9 Depression Total Score: 10 024 9:17 AM EDT documented as of this encounter Care Teams Photostatic Copy Maker Relationship Specialty Start Date End Date Umm Coley MD [address] [place] [address] PCP - General Family Medicine 10/31/16 [facility] 11/14/24 documented as of this encounter
--- OUTSIDE RECORDS SUMMARY | 2025-01-17 13:57 | XMS_ITS | Encounter Summary ---
Author Organization [employer] Address [address] [facility] 7t [place] [address] Care Team Providers Care Survey Researcher Name Role Phone Umm Coley MD Primary Care Provider + Reason for Visit * Reason Onset Date Comments ED f/u call 12/26/2024 Encounter Details Date Type Department Care Team ([facility] st Contact Info) Description 12/26/2024 Telephone [facility] MEDICINE 230 [place], [place] [phone] Umm Coley MD 230 [place], [place] [phone] ED f/u call Social History Tobacco Use [...] reports she is scheduled to see [facility] ortho on 12/28 at 10:15am ([facility] Patient is scheduled to see PCP tomorrow [...] AM EST Noted. TC placed to patient [phone] in regards to below message. Patient did [...] [facility] 230 [place] [address] Darrell Myers MD 230 [place] [address] 03/08/2025 10:00 AM EDT Office Visit [facility] ADULT DENTAL [address] [place] [address] Elzbieta, Mariangel [address] [place] [address] documented as of this encounter Visit Diagnoses Not on filedocumented in this encounter Additional Health Concerns Assessment Noted Time PHQ-9 Depression Total Score: 10 024 9:17 AM EDT documented as of this encounter Care Teams Survey Researcher Relationship Specialty Start Date End Date Umm Coley MD 230 [place] [address] PCP - General Family Medicine 10/31/16 [facility] 11/14/24 documented as of this encounter
--- OUTSIDE RECORDS SUMMARY | 2025-01-17 13:57 | XMS_ITS | Encounter Summary ---
Author Organization [facility] Address [address] [place] [address] 7t [place] [address] Care Team Providers Care Electronic Court Recorder Name Role Phone Umm Coley MD Primary Care Provider + Reason for Referral * Consultation (Routine) - Closed Specialty Diagnoses / Procedures Referred By Contkassie t Referred To Contact Case Management Diagnoses Encounter for monitoring of patient compliance in drug treatment program Umm Coley MD [address] [place] [address] Phone: tel: fax: Referral ID Status Reason Start Date Expiration Date V isits Requested Visits Authorized [id number] Closed Specialty Services Required 12/27/2024 12/27/2025 1 1 Reason for Visit * Reason Comments Weakness, Gen Encounter Details Date Type Department Care Team (Late st Contact Info) Description 12/27/2024 1:00 PM EST Office Visit [facility] [address] [place], [place] [phone] Umm Coley MD [address] [place], [place] [phone] Encounter for monitoring of patient compliance in [...] not addressed this issue to anyone at [facility] VNA. Acute Concerns: She complains of [...] regarding medication management by current VNA services ([facility]). I asked her if she wants me to cancel the services and try to find a new one, but she declined. I suggested her to reach out to [facility] supervisors and verify credential information and address issues that she has with current medication management. I will ask our care managers to reach out to her to assist her with this issue and try to stabilizeher on a VNA service. Will ask [facility] VNA service to send a list [...] VIA [facility] [employer] 90 tablet [...] regarding medication management by current VNA services ([facility]). I asked her if she wants [...] 02/03/2025 2:00 PM EDT Office Visit [facility] [address] [place] [address] Darrell Myers MD [address] [place] [address] 03/08/2025 10:00 AM EDT Office Visit [facility] ADULT DENTAL [address] [place] [address] ElzbietaMariangel [address] [place] [address] Scheduled Referrals Name Type Priority Associated Diagnoses [...] PM EST Narrative 12/27/2024 2:35 PM EST ?[facility] ?[address] ?[place] [address] ?XRay Report ? Signed ? Patient: Myles,Diana L ?MR#: [id number] ?? 8 ? : 1965 ?Acct:[id number] ? Age/Sex: 59 / F ?ADM Date: 02/25/25 ? Loc: HO.HHCX ? Attending Dr: Umm Coley MD ? Ordering Physician: Umm Coley MD ?? Date of Service: 12/27/24 ?? Procedure(s): XR ribs RT 2V ?? Accession Number(s): [id number] ? cc: Umm Coley MD ? EXAMINATION: [...] DD/ 1356 ? TD/TT: 12/27/24 1424 ? Advertising Intern: ? Procedure Note Adalgisa, Chin - 12/27/[address] [address] XRay Report Signed Patient: Diana Myles LMR#: [id number] 8 : 1965Acct:[id number] Age/Sex: 59 / FADM Date: 12/27/24 Loc: HO.HHCX Attending Dr: Umm Coley MD Ordering Physician: Umm Coley MD Date of Service: 12/27/24 Procedure(s): XR ribs RT 2V Accession Number(s): [id number] cc: Umm Coley MD EXAMINATION: XR CHEST [...] 12/27/24 1433 DD/ 1356 TD/TT: 12/27/24 1424 Advertising Intern: us Umm Coley MD IMG XR PROCEDURES Final Result * XR Chest 2 Views (12/27/2024 1:56 PM EST) Anatomical Region Laterality Modality Chest Radiographic Kyleigh ging 12/27/2024 1:56 PM EST Narrative 12/27/2024 2:36 PM EST ?[facility] ?[address] ?[place] [address] ?XRay Report ? Signed ? Patient: Myles,Diana L ?MR#: [id number] ?? 8 ? : 1965 ?Acct:[id number] ? Age/Sex: 59 / F ?ADM Date: 02/25/25 ? Loc: HO.HHCX ? Attending Dr: Umm Coley MD ? Ordering Physician: Umm Coley MD ?? Date of Service: 12/27/24 ?? Procedure(s): XR chest 2V ?? Accession Number(s): [id number] ? cc: Umm Coley MD ? EXAMINATION: [...] DD/ 1356 ? TD/TT: 12/27/24 1424 ? Advertising Intern: ? Procedure Note Chin Diana - 12/27/[address] [address] XRay Report Signed Patient: Diana Myles LMR#: [id number] 8 : 1965Acct:[id number] Age/Sex: 59 / FADM Date: 12/27/24 Loc: HO.HHCX Attending Dr: Umm Coley MD Ordering Physician: Umm Coley MD Date of Service: 12/27/24 Procedure(s): XR chest 2V Accession Number(s): [id number] cc: Umm Coley MD EXAMINATION: XR CHEST [...] 12/27/24 1433 DD/ 1356 TD/TT: 12/27/24 1424 Advertising Intern: us Umm Coley MD IMG XR PROCEDURES Final Result documented in this encounter Visit Diagnoses Diagnosis Encounter for monitoring of patient compliance in drug treatment program- Primary Intercostal pain documented in this encounter Additional Health Concerns Assessment Noted Time PHQ-9 Depression Total Score: 10 024 9:17 AM EDT documented as of this encounter Care Teams Electronic Court Recorder Relationship Specialty Start Date End Date Umm Coley MD [address] [place] [address] PCP - General Family Medicine 10/31/16 [facility] 11/14/24 documented as of this encounter
--- OUTSIDE RECORDS SUMMARY | 2025-01-17 13:57 | XMS_ITS | Encounter Summary ---
Author Organization [facility] Address [address] [place] [address] 7t [place] [address] Care Team Providers Care Global Professional Name Role Phone Umm Coley MD Primary Care Provider + [place] Me[place] RN Unavailable [phone] Encounter Details Date Type Department Care Team (Latest Contact Info) Description 03/13/2022 Abstract [facility] CONVERSIONS Dental, Provider, DDS Social [...] Description 02/03/2025 2:00 PM EDT Office Visit [facility] MEDICINE [address] [place] [address] Darrell Myers MD [address] [place] [address] 03/08/2025 10:00 AM EDT Office Visit [facility] ADULT DENTAL [address] [place] [address] Mariangel Ruff [address] [place] [address] documented as of this encounter Visit Diagnoses Not on filedocumented in this encounter Care Teams Global Professional Relationship Specialty Start Date End Date Umm Coley MD [address] [place] [address] PCP - General Family Medicine 10/31/16 [place], RN [address] [place] [address] Shop LeadGrease Buffer 01/12/25 Eva Nunez Shop Lead 04/05/24 07/06/24 [facility] 05/11/24 11/17/24 [facility] 11/14/24 documented as of this encounter
--- OUTSIDE RECORDS SUMMARY | 2025-01-17 13:57 | XMS_ITS | Encounter Summary ---
Author Organization [employer] Address [address] [facility] 7t [place] [address] Care Team Providers Care Information Systems Coordinator Name Role Phone Umm Coley MD Primary Care Provider + Reason for Visit * Reason Onset Date Comments Appointment Request 12/22/2024 Encounter Details Date Type Department Care Team ([facility] st Contact Info) Description 12/22/2024 Telephone [facility] MEDICINE 230 [place], [place] [phone] Umm Coley MD [address] [place], [place] [phone] Appointment Request Social History Tobacco Use Types [...] 10:27 AM EST TC returned to patient [phone] in regards to below message. Patient reports [...] AM EST Tc from pt returning call. Burmese * Telephone Encounter - Gisela Reynoso RN - 12/22/2024 8:36 AM EST TC placed to patient [phone] in regards to below message. Patient did [...] available to be scheduled. Contact pt at [phone] documented in this encounter Plan of Treatment Upcoming Encounters Date Type Department Care Team (Late st Contact Info) Description 02/03/2025 2:00 PM EDT Office Visit [facility] MEDICINE [address] [place] [address] Darrell Myers MD [address] [place] [address] 03/08/2025 10:00 AM EDT Office Visit [facility] ADULT DENTAL [address] [place] [address] Elzbieta, Mariangel [address] [place] [address] documented as of this encounter Visit Diagnoses Not on filedocumented in this encounter Additional Health Concerns Assessment Noted Time PHQ-9 Depression Total Score: 10 024 9:17 AM EDT documented as of this encounter Care Teams Information Systems Coordinator Relationship Specialty Start Date End Date Umm Coley MD [address] [place] [address] PCP - General Family Medicine 10/31/16 [facility] 11/14/24 documented as of this encounter
--- OUTSIDE RECORDS SUMMARY | 2025-01-17 13:57 | XMS_ITS | Encounter Summary ---
Author Organization [employer] Address [address] [facility] 7t [place] [address] Care Team Providers Care Computer Peripheral Equipment Operator Name Role Phone Umm Coley MD Primary Care Provider + Reason for Visit * Reason Onset Date Comments Call Back Request 12/20/2024 Encounter Details Date Type Department Care Team ([facility] st Contact Info) Description 12/20/2024 Telephone [facility] MEDICINE [address] [place], [place] [phone] Umm Coley MD 230 [place], [place] [phone] Call Back Request Social History Tobacco Use [...] PM EST RN was informed by [facility]) that they have changed the patients nurse to a female nurse. Patient's VNA will now be [facility]. * Telephone Encounter - Deyvi Bray RN - 12/21/2024 9:51 AM EST TC returned to patient (via [facility] nurse examiner) no answer left voicemail to return call to clinic. * Telephone Encounter - Rossana Lawrence - 12/21/2024 9:32 AM EST Tc from pt requesting a call back regarding message below. Icelandic * Telephone Encounter - Umm Coley MD - 12/20/2024 4:24 PM EST Nurse poultry farm supervisor note re meds appreciated. Agree with [...] 3:28 PM EST Spoke to patient (with [facility] bilingual medical receptionist) regarding VNA nurse and meds (as discussed [...] RN discposed of medications in sharps container ([facility] bilingual medical receptionist witnessed disposal). One pill was orange/red capsule [...] if we can switch them. RN called [facility] VNA spoke to director Zara whowas informed [...] verbalized understanding and will return call to talent acquisition program manager if she is able to find another nurse to take on the patient. RN informed patient of aZra response. Patient has appts tomorrow morning so [...] reports she has a new VNA service ([facility]) which started on Thursday. Patient reports on Thursday it was two females who went to the patients [place] and they put all the medications on [...] name and confirm he is employed by [facility]. Patient reports she is having a hard time trusting the VNAand that he is aware of what he is doing. TC placed to VNA Randy [phone] to discuss above situation. Randy VNA reports [...] to PCP who requested RN call Deyvi (talent acquisition program manager) to speak to patient. RN called [...] a Nurse of PCP Contact pt at [phone] documented in this encounter Plan of Treatment Upcoming Encounters Date Type Department Care Team (Late st Contact Info) Description 02/03/2025 2:00 PM EDT Office Visit [facility] MEDICINE [address] [place] [address] Darrell Myers MD [address] [place] [address] 03/08/2025 10:00 AM EDT Office Visit [facility] ADULT DENTAL [address] [place] [address] Mariangel Ruff [address] [place] [address] documented as of this encounter Visit Diagnoses Not on filedocumented in this encounter Additional Health Concerns Assessment Noted Time PHQ-9 Depression Total Score: 10 024 9:17 AM EDT documented as of this encounter Care Teams Computer Peripheral Equipment Operator Relationship Specialty Start Date End Date Umm Coley MD [address] [place] [address] PCP - General Family Medicine 10/31/16 [facility] 11/14/24 documented as of this encounter
--- OUTSIDE RECORDS SUMMARY | 2025-01-17 13:57 | XMS_ITS | Encounter Summary ---
Author Organization [employer] Address [address] [facility] 7t [place] [address] Care Team Providers Care Adult Education Instructor Name Role Phone Umm Coley MD [...] Visit [facility] MEDICINE 230 [place] [address] Darrell Myers MD 230 [place] [address] 03/08/2025 10:00 AM EDT Office Visit [facility] ADULT DENTAL 230 [place] [address] Elzbieta Mariangel 230 [place] [address] documented as of this encounter Visit Diagnoses Not on filedocumented in this encounter Additional Health Concerns Assessment Noted Time PHQ-9 Depression Total Score: 10 024 9:17 AM EDT documented as of this encounter Care Teams Adult Education Instructor Relationship Specialty Start Date End Date Umm Coley MD [address] [place] [address] PCP - General Family Medicine 10/31/16 [facility] 11/14/24 documented as of this encounter
--- OUTSIDE RECORDS SUMMARY | 2025-01-17 13:57 | XMS_ITS | Encounter Summary ---
Author Organization [employer] Address [address] [facility] 7t [place] [address] Care Team Providers Care Watch Dial Maker Name Role Phone Umm Coley MD Primary Care Provider + Reason for Visit * Reason Comments Care Coordination [facility] call outreach Encounter Details Date Type Department Care Team (Latest Contact Info) Description 12/28/2024 Patient Outreach [facility] MEDICINE [address] [place] [address] Umm Coley MD [address] [place] [address] Care Coordination ([facility] [place] telephone call [...] outbound call to patient introducing herself from [facility] CM Department, in regards to offering services. Patient's name and was confirmed. Patient agrees toparticipate in program. Appt. for initial assessment scheduled for 01/12/25@ 10:00AM. CHW reinforceddirect contact information or for any additional questions or concerns and extended clinic hours on Mondays and Wednesdays, and Walk-In Urgent Care Located in [facility] of [facility]. Patient provided with after-hours line for [facility], , which offer night time triage service and option to transfer to welding machine operator friction provider if needed. Patient verbalizes understanding, and able to repeat back to television script writer. documented in this encounter Plan of Treatment Upcoming Encounters Date Type Department Care Team (Late st Contact Info) Description 02/03/2025 2:00 PM EDT Office Visit [facility] MEDICINE [address] [place] [address] Darrell Myers MD [address] [place] [address] 03/08/2025 10:00 AM EDT Office Visit [facility] ADULT DENTAL [address] [place] [address] Mariangel Ruff [address] [place] [address] documented as of this encounter Visit Diagnoses Not on filedocumented in this encounter Additional Health Concerns Assessment Noted Time PHQ-9 Depression Total Score: 10 024 9:17 AM EDT documented as of this encounter Care Teams Watch Dial Maker Relationship Specialty Start Date End Date Umm Coley MD [address] [place] [address] PCP - General Family Medicine 10/31/16 [facility] 11/14/24 documented as of this encounter
--- OUTSIDE RECORDS SUMMARY | 2025-01-17 13:57 | XMS_ITS | Encounter Summary ---
Author Organization [facility] Address [address] [place] [address] 7t [place] [address] Care Team Providers Care Or Manager Name Role Phone Umm Coley MD Primary Care Provider + [place] RN Unavailable [phone] Encounter Details Date Type Department Care Team (Latest Contact Info) Description 09/16/2022 Abstract [facility] CONVERSIONS Dental, Provider, DDS Social History [...] Office Visit [facility] MEDICINE [address] [place] [address] Darrell Myers MD [address] [place] [address] 03/08/2025 10:00 AM EDT Office Visit [facility] ADULT DENTAL [address] [place] [address] Mariangel Ruff [address] [place] [address] documented as of this encounter Visit Diagnoses Not on filedocumented in this encounter Care Teams Or Manager Relationship Specialty Start Date End Date Umm Coley MD 230 [place] [address] PCP - General Family Medicine 10/31/16 West Meier, RN [address] [place] [address] Transformer Shop SupervisorFaith Healer 01/12/25 Eva Nunez Transformer Shop Supervisor 04/05/24 07/06/24 [facility] 05/11/24 11/17/24 [facility] 11/14/24 documented as of this encounter
--- OUTSIDE RECORDS SUMMARY | 2025-01-17 13:57 | XMS_ITS | Encounter Summary ---
Author Organization [employer] Address [address] [facility] 7t [place] [address] Care Team Providers Care Melter Clerk Name Role Phone Umm Coley MD Primary Care Provider + Reason for Visit * Reason Onset Date Comments VNA services 01/04/2025 Encounter Details Date Type Department Care Team ([facility] st Contact Info) Description 01/04/2025 Telephone [facility] MEDICINE [address] [place], [place] [phone] Umm Coley MD [address] [place], [place] [phone] VNA services Social History Tobacco Use Types [...] to lay eye on the patient. Per CONCRETE VAULT MAKER, patient is laying in bed d/t being in pain (possibly r/t recent surgery from 01/02/25 d/t R distal radius fracture). VNA was able to fill med discharge planner and leave out for patient to take medication. VNA will see patient tomorrow. documented in this encounter Plan of Treatment Upcoming Encounters Date Type Department Care Team (Late st Contact Info) Description 02/03/2025 2:00 PM EDT Office Visit [facility] MEDICINE [address] [place] [address] Darrell Myers MD [address] [place] [address] 03/08/2025 10:00 AM EDT Office Visit [facility] ADULT DENTAL [address] [place] [address] Mariangel Ruff [address] [place] [address] documented as of this encounter Visit Diagnoses Not on filedocumented in this encounter Additional Health Concerns Assessment Noted Time PHQ-9 Depression Total Score: 10 024 9:17 AM EDT documented as of this encounter Care Teams Melter Clerk Relationship Specialty Start Date End Date Umm Coley MD [address] [place] [address] PCP - General Family Medicine 10/31/16 [facility] 11/14/24 documented as of this encounter
--- OUTSIDE RECORDS SUMMARY | 2025-01-17 13:57 | XMS_ITS | Encounter Summary ---
Author Organization [employer] Address [address] [facility] 7t [place] [address] Care Team Providers Care Optics Manufacturing Technician Name Role Phone Umm Coley MD Primary Care Provider + Reason for Visit * Reason Comments Care Coordination [facility] telephone call outreach Encounter Details Date Type Department Care Team (Latest Contact Info) Description 01/11/2025 Patient Outreach [facility] MED[facility]INE [address] [place] [address] Umm Coley MD [address] [place] [address] Care Coordination (C3 -BEATRI[facility] [place] telephone call [...] encounter Progress Notes * Shannan Covington - 01/11/2025 1:52 PM EDT CHW Shannan C[place] placed outbound call to patient introducing herself from [facility] CM Department, in regard to remind patient of appt for 01/12/25 @ 10:00AM. Patient's name and was confirmed. Patient is aware and confirmed will be available and has no barriers on attending this appointment. Patient verbalized understanding and agrees with plan. documented in this encounter Plan of Treatment Upcoming Encounters Date Type Department Care Team (Late st Contact Info) Description 02/03/2025 2:00 PM EDT Office Visit [facility] MEDICINE [address] [place] [address] Darrell Myers MD [address] [place] [address] 03/08/2025 10:00 AM EDT Office Visit [facility] ADULT DENTAL [address] [place] [address] Mariangel Ruff [address] [place] [address] documented as of this encounter Visit Diagnoses Not on filedocumented in this encounter Additional Health Concerns Assessment Noted Time PHQ-9 Depression Total Score: 10 024 9:17 AM EDT documented as of this encounter Care Teams Optics Manufacturing Technician Relationship Specialty Start Date End Date Umm Coley MD [address] [place] [address] PCP - General Family Medicine 10/31/16 [facility] 11/14/24 documented as of this encounter
--- OUTSIDE RECORDS SUMMARY | 2025-01-17 13:57 | XMS_ITS | Encounter Summary ---
Author Organization [employer] Address [address] [facility] 7t [place] [address] Care Team Providers Care Field Education Coordinator Name Role Phone Umm Coley MD Primary Care Provider + West Meier RN Unavailable [phone] Reason for Visit * Reason Onset Date Comments Care Management 01/12/2025 C3[facility]- Initial as sessment/enrollment Encounter Details Date Type Department Care Team ([facility] st Contact Info) Description 01/12/2025 Telephone [facility] MEDICINE [address] [place], [place] [phone] Umm Coley MD [address] [place], [place] [phone] Care Management (C3CM- Initial assessment/enrollment) Social History Tobacco Use Types Packs/Day Years [...] Telephone Encounter - West Meier RN - 01/12/2025 2:45 PM EDT OMARI Meier RN, provided notification to PCP Dr. Coley of patient's enrollment into [facility]. OMARI Meier RN, completed care plan and sent to HIM to be scanned into the medical record. PCPnotified and awaiting review from provider. OMARI plan: -assist with appointment reminder/scheduling -assist with SDOH as needed -assist with stress management -educate on disease process * Telephone Encounter - West Meier RN - 01/12/2025 2:43 PM EDT OMARI Meier RN placed outbound call to patient for agreed upon time for initial assessment forenrollment into Adult Care Management Program. Patient's name, , and address were verified. AidaL. Myles is a 59-year-old [place] speaking female with prior medical history of asthma, actinic keratoses, localized osteoarthritis of left knee, benign paroxysmal vertigo, PTSD, fibromyalgia, carpal tunnel syndrome, recurrent major depression in partial remission, osteopenia, neuropathy of both feet, migraine with aura, ductal carcinoma of right breast, generalized anxiety disorder, chronic lowback pain. Patient reports that she can read and write in [place] and the last grade she completed was her associates. Patient reports that she is followed by the following specialists: psychiatrist,therapist, neurology, pulmonology, GI, orthopedics, tip tester, [facility] dental. Patient reports that she has an upcoming appointment with her hand surgeon on 01/17/25 @ 11:30 AM. Patient denies any hearing concerns but does report that sometime her right ear feels blocked. Patients denies any visual concerns and she does wear prescribed glasses to read and such. Patient reports having a gum condition. Patient reports that she lives in an apartment by herself. Patient denies being behind on her utilities and is up to date. Patient reports that she receives food stamp and that her food lasts. Patient reports that she doesn't work and that she receives SSI. Patient reports that her BOAT GARNISHER brings herto her medical appointments. Patient uses and has the following DME: walker, cane, knee brace, shower chair. Patient is requesting the following DME: handheld shower hose. Patient reports that since she has fatty liver and elevated cholesterol, she follows a low cholesterol/low fat diet. Patient reports that she takes the following vitamins: B12, D3, and C. Patient reports that she exercises whenshe walks. Patient reports that she is comfortable at her current weight. Patient reports the following pain: fibromyalgia, arthritis, neuropathy. Patient reports dealing with these conditions for several years. Patient takes the following pain medication: Lyrica daily BID, ibuprofen PRN, naproxen PRN, Tylenol PRN. Patient reports being followed by [facility]. Patient reports knowing howto contact her therapist and psychiatrist as needed and having crisis #. Patient denies any SI/HI. She speaks with a therapist 2 times a week and with a psychiatrist every 2-3 months. Patient reportsfeeling safe at home. Denies drinking, smoking or any illegal drugs. Patient receives BOAT GARNISHER and VNA services. Her BOAT GARNISHER is from [facility], patient reports that during the day she receives 4 hours from Mon-Fri and 2 hours on Sat and then at nighttime she receives 2-3 hours from Mon-Sun. Patient reports a new VNA company coming to her home couldn't recall the name for medication. Patient reports that her medications are locked and the VNA comes Mon-Fri to set up her meds for the day and on Thursday she sets it up for the weekend. Patient denies any concerns with VNA at this time. Care management program explained and contact information given. Patient verbalizes understanding, and able to repeat back to video game script writer. A follow up call will be placed within 10 days, patient agrees with plan. documented in this encounter Plan of Treatment Upcoming Encounters Date Type Department Care Team (Late st Contact Info) Description 02/03/2025 2:00 PM EDT Office Visit [facility] MEDICINE [address] [place] [address] Darrell Myers MD [address] [place] [address] 03/08/2025 10:00 AM EDT Office Visit [facility] ADULT DENTAL [address] [place] [address] Elzbieta, Mariangel [address] [place] [address] documented as of this encounter Visit Diagnoses Not on filedocumented in this encounter Additional Health Concerns Assessment Noted Time PHQ-9 Depression Total Score: 10 024 9:17 AM EDT documented as of this encounter Care Teams Field Education Coordinator Relationship Specialty Start Date End Date Umm Coley MD [address] [place] [address] PCP - General Family Medicine 10/31/16 West Meier RN [address] [place] [id number] Station InspectorSuppression Crew Leader 01/12/25 [facility] 11/14/24 documented as of this encounter
--- OUTSIDE RECORDS SUMMARY | 2025-01-17 13:57 | XMS_ITS | Encounter Summary ---
Author Organization [employer] Address [address] [facility] 7t [place] [address] Care Team Providers Care Ruby On Rails Web Developer Name Role Phone Umm Coley MD Primary Care Provider + Reason for Visit * Reason Onset Date Comments Chart prep 12/23/2024 Encounter Details Date Type Department Care Team ([facility] st Contact Info) Description 12/23/2024 Telephone [facility] MEDICINE [address] [place], [place] [phone] Umm Coley MD [address] [place], [place] [phone] Chart prep Social History Tobacco Use Types [...] EDT Office Visit [facility] MEDICINE [address] [place] [address] Darrell Myers MD [address] [place] [address] 03/08/2025 10:00 AM EDT Office Visit [facility] ADULT DENTAL [address] [place] [address] Mariangel Ruff [address] [place] [address] documented as of this encounter Visit Diagnoses Not on filedocumented in this encounter Additional Health Concerns Assessment Noted Time PHQ-9 Depression Total Score: 10 024 9:17 AM EDT documented as of this encounter Care Teams Ruby On Rails Web Developer Relationship Specialty Start Date End Date Umm Coley MD [address] [place] [address] PCP - General Family Medicine 10/31/16 [facility] 11/14/24 documented as of this encounter
--- OUTSIDE RECORDS SUMMARY | 2025-01-17 13:57 | XMS_ITS | Clinical Summary ---
Author Organization [employer] Address [address] [place] [address] 7[address] [place] [address] Care Team Providers Care Temperature Inspector Name Role Phone Shalonda Coley MD Primary Care Provider + [place] RN Unavailable [phone] Allergies Active Allergy Reactions Criticality Noted Date [...] TOME DOS TABLETAS POR V A ORAL TOS LOS D AL ACOSTARSE CUANDO SEA NECESARIO [...] hours. PRN ABD PAIN/COLIC 240 tablet 11 4 02/02/20 25 Active triamcinolone (Kenalog) 0.1 [...] regarding medication management by current VNA services (S). I asked her if she wants me to cancel the services and try to find a new one, but she declined. I suggested her to reach out to [facility] supervisors and verify credential information and address issues that she has with current medication management. I will ask our care managers to reach out to her to assist her with this issue and try to stabilize her on a VNA service. Will ask IHS [...] continue f/u with mental health provider in [facility]. Dry eye 05/16/2024 Assessment & Plan [...] She was referred to vestibular therapy at [facility], information given to pt [...] write a complaint to the landlord, building senior storage administrator, and housing department. I gave them information about legal records manager in the [place] court Will refer to respiratory care program director to assist with housing due to poor conditions of current apartment Pt already has a letter from counselor, will FU at next appointment Household circumstance affecting care 02/03/2023 Assessment & Plan (12/11/2023 9:49 AM EST): Pt has depression and difficulty with memory. She has a CAN FILLER and a VNA to manage med, pharma education. VNA can go a few times per week once a POC has been discussed and taught to pt's caregivers Assessment & Plan (04/02/2023 2:38 PM EDT): Pt continues to live in the same apartment with anxiety from recent of her neighbor. Already in contact with [facility] and team is helping her with letters for housing Assessment & Plan (02/26/2023 1:12 PM EDT): Pt lives alone, I will advise to move out to a different apartment due to increased anxiety with household circumstance Refer to [facility] Assessment & Plan (02/03/2023 2:23 [...] seen psychotherapist and psychiatry at [facility], needs medication management due [...] continue close follow up with [facility] Psych. I explained to patient that many [...] Plan (02/26/2023 1:11 PM EDT): Pt seeing [facility] team every week. I counseled her to [...] we can organize the medications. Pt and CAN FILLER agreed with the plan of care. POC discussed with team nurse and tubing supervisor. Assessment & Plan (04/28/2024 3:33 PM [...] PM EDT): Pt seen by [facility] clinician, continue psychotherapy every week. She needs [...] she needs pharmaco education. She's followed by [facility] psych. I told her and CAN FILLER she needs to bring all her med bottles so we can go over her meds until the new VNA service is restarted. Her CAN FILLER is helping her as well as her daughter With meds for now. Pt feels safe. Will send new Rx if needed with prescription in namibian so VNA can read it (one of the issues being that med rx were written in Occitan and the VNA that took over didn't understand the directions). Will check with VNA service to see what current situation is, pt wants to start using a new VNA service (the one her neighbor uses, [employer], [place] based) . Contusion of knee 02/16/2018 Motor [...] Plan (05/02/2024 5:56 PM EDT): -Followed by [facility] GI - last available [...] has to reschedule pharmacological stress test in [facility] dc amlodipine and flexeril and take [...] Encounters Date Type Department Care Team Description 01/16/[address] [facility] [address] [place] [phone] Shalonda Coley MD Care Management ([facility]) 01/13/[address] [facility] [address] [place] [phone] Shalonda Coley MD Care Coordination (C3 -[facility] telephone call outreach) 01/13/2025 Population Health Risk Score [facility] (C3) Department [address] [place] [phone] Provider, Population Health Generic 01/12/[address] [facility] [address] [place] [phone] Shalonda Coley MD Care Management (C3- Initial assessment/enrollme nt) 01/11/2025 Patient Outreach [address] [address] Shalonda Coley MD Care Coordination (C3 -[facility] telephone call outreach) 01/06/[address] [facility] [address] [place] [address] [phone] Shalonda Coley MD Nurse Triage 01/06/[address] [address] Shalonda Coley MD FYI 01/04/[address] [phone] Shalonda Coley MD VNA services 01/02/2025 Orders Only [facility] External Provider, [facility] 12/29/[address] [facility] [address] [place] [address] [phone] Shalonda Coley MD Results 12/28/[address] [facility] [address] [place] [address] [phone] Shalonda Coley MD 12/28/2024 Patient Outreach [address] [phone] Shalonda Coley MD Care Coordination (C3 -[facility] [place] telephone call outreach) 12/28/[address] [facility] [address] [place] [phone] Shalonda Coley MD 12/28/[address] [address] Shalonda Coley MD Medication List 12/28/[address] [address] Shalonda Coley MD Care Management (R6DM-apnwz review) 12/27/2024 1:00 PM EST Office Visit [address] [address] Shalonda Coley MD Encounter for monitoring of patient compliance in drug treatment program (Primary Dx); Intercostal pain 12/27/2024 Travel 12/26/[address] [address] Shalonda Coley MD ED f/u call 12/26/[address] [address] Shalonda Coley MD Appointment Request 12/23/[address] [address] Shalonda Coley MD Chart prep 12/22/[address] [address] Shalonda Coley MD Appointment Request 12/20/[address] [address] Shalonda Coley MD Call Back Request 12/13/[address] [phone] Shalonda Coley MD PCP Contact ([employer] set up.) 12/09/2024 Travel 12/08/2024 12:15 PM EST Office Visit [address] [address] Shalonda Coley MD Recurrent falls (Primary Dx); Neuropathy of both feet; Generalized anxiety disorder 12/08/[address] [facility] [place] [address] Gisela Reynoso RN VNA services 12/08/2024 Travel 12/08/2024 Telephone [facility] [place] [address] Shalonda Coley MD FYI. 12/07/[address] [place] [address] Juana Connor MA Chart prep 12/05/[address] [place] [address] Shalonda Coley MD Appointment Request 11/29/2024 Orders Only [facility] [place] [address] Shalonda Coley MD 11/10/2024 12:15 PM EST Office Visit [address] [address] Shalonda Coley MD Generalized anxiety disorder (Primary Dx); Mild persistent asthmatic bronchitis without complication; Encounter for immunization 11/10/[address] [facility] [place] [address] Gisela Reynoso RN VNA agency switch 11/10/2024 Travel 11/09/2024 Telephone [facility] [place] [address] Shalonda Coley MD Chart prep 10/24/[address] [address] Shalonda Coley MD Request For Order(s) 10/24/[address] [address] Shalonda Coley MD VNA Switch from Last 3 Months Immunizations Name Administration [...] 02/03/2025 2:00 PM EDT Office Visit [facility] [address] [place] [address] Darrell Myers MD [address] [place] [address] 03/08/2025 10:00 AM EDT Office Visit [facility] [address] [place] [address] Trino Ruffaris [address] [place] [address] Health Maintenance Due Date Last Done Comments [...] EST Mild persistent asthmatic bronchitis without complication BITEWING - SINGLE RADIOGRAPHIC IMAGE Routine 08/01/2024 [...] EST Narrative 01/03/2025 9:58 AM EST ? [facility] ?[address] ?[place] [address] ? Fluoroscopy Report ? Signed ? Patient: Myles,Diana L ?MR#: [id number] ?? 8 ? : 1965 ?Acct:[id number] ? Age/Sex: 59 / F ?ADM Date: 03/03/25 ? Loc: HO.SSS ? Attending Dr: Sydney Cleveland MD ? Ordering Physician: Sydney Cleveland MD ?? Date of Service: 01/02/25 ?? Procedure(s): FL guidance in OR ?? Accession Number(s): [id number] ? cc: Shalonda Coley MD; Sydney Cleveland [...] DD/ 1209 ? TD/TT: 01/02/25 1510 ? Zone Manager: MSM ? Procedure Note Chin Diana - 01/03/2025 [place] [address] Fluoroscopy Report Signed Patient: Diana Myles LMR#: [id number] 8 : 1965Acct:[id number] Age/Sex: 59 / FADM Date: 01/02/25 Loc: HO.SSS Attending Dr: Sydney Cleveland MD Ordering Physician: Sydney Cleveland MD Date of Service: 01/02/25 Procedure(s): FL guidance in OR Accession Number(s): [id number] cc: Shalonda Coley MD; Sydney Cleveland MD [...] 01/03/25 0956 DD/ 1209 TD/TT: 01/02/25 1510 Zone Manager: ANTONY [facility] External Provider IMG IR PROCEDURES Final Result * XR Ribs 2 Views Right (12/27/2024 1:56 PM EST) Anatomical Region Laterality Modality Rib, Abdomen Right Radiographic Kyleigh ging 12/27/2024 1:56 PM EST Narrative 12/27/2024 2:35 PM EST ?[facility] ?[address] ?[place] [address] ?XRay Report ? Signed ? Patient: Myles,Diana L ?MR#: [id number] ?? 8 ? : 1965 ?Acct:[id number] ? Age/Sex: 59 / F ?ADM Date: 12/27/24 ? Loc: HO.HHCX ? Attending Dr: Shalonda Coley MD ? Ordering Physician: Shalonda Coley MD ?? Date of Service: 12/27/24 ?? Procedure(s): XR ribs RT 2V ?? Accession Number(s): [id number] ? cc: Shalonda Coley MD ? EXAMINATION: [...] DD/ 1356 ? TD/TT: 12/27/24 1424 ? Zone Manager: ? Procedure Note Donlinda, Image - 12/27/2024 [place] [address] XRay Report Signed Patient: Diana Myles LMR#: [id number] 8 : 1965Acct:[id number] Age/Sex: 59 / FADM Date: 12/27/24 Loc: HO.HHCX Attending Dr: Shalonda Coley MD Ordering Physician: Shalonda Coley MD Date of Service: 12/27/24 Procedure(s): XR ribs RT 2V Accession Number(s): [id number] cc: Shalonda Coley MD EXAMINATION: XR CHEST [...] 12/27/24 1433 DD/ 1356 TD/TT: 12/27/24 1424 Zone Manager: us Shalonda Coley MD IMG XR PROCEDURES Final Result * XR Chest 2 Views (12/27/2024 1:56 PM EST) Only the most recent of2 resultswithin the time period is included. Anatomical Region Laterality Modality Chest Radiographic Kyleigh ging 12/27/2024 1:56 PM EST Narrative 12/27/2024 2:36 PM EST ?[facility] ?[address] ?[place] [address] ?XRay Report ? Signed ? Patient: Myles,Diana L ?MR#: [id number] ?? 8 ? : 1965 ?Acct:[id number] ? Age/Sex: 59 / F ?ADM Date: 12/27/24 ? Loc: HO.HHCX ? Attending Dr: Shalonda Coley MD ? Ordering Physician: Shalonda Coley MD ?? Date of Service: 12/27/24 ?? Procedure(s): XR chest 2V ?? Accession Number(s): [id number] ? cc: Shalonda Coley MD ? EXAMINATION: [...] MD ? Signed By: ?<Electronically signed by Mtahieu Lepe MD in OV> ?12/27/24 1433 ? DD/ 1356 ? TD/TT: 12/27/24 1424 ? Zone Manager: ? Procedure Note Donotuseinterpreter, Image - 12/27/2024 [facility] [address] [place] [address] XRay Report Signed Patient: Diana Myles LMR#: [id number] 8 : 1965Acct:[id number] Age/Sex: 59 / FADM Date: 12/27/24 Loc: HO.HHCX Attending Dr: Shalonda Coley MD Ordering Physician: Shalonda Coley MD Date of Service: 12/27/24 Procedure(s): XR chest 2V Accession Number(s): [id number] cc: Shalonda Coley MD EXAMINATION: XR CHEST [...] 12/27/24 1433 DD/ 1356 TD/TT: 12/27/24 1424 Zone Manager: Shalonda Coley MD IMG XR PROCEDURES Final Result * XR HAND WRIST RT (12/23/2024 6:57 PM EST) Only the most recent of2 resultswithin the time period is included. Anatomical Region Laterality Modality Abdomen Radiographic Kyleigh ging 12/23/2024 6:57 PM EST Narrative 12/23/2024 6:59 PM EST ? [facility] ?[address] ?[place] [address] ?XRay Report ? Signed ? Patient: Myles,Diana L ?MR#: [id number] ?? 8 ? : 1965 ?Acct:[id number] ? Age/Sex: 59 / F ?ADM Date: 12/23/24 ? Loc: HO.ED ? Attending Dr: ? Ordering Physician: Diomedes Shultz ?? Date of Service: 12/23/24 ?? Procedure(s): XR hand wrist RT ?? Accession Number(s): [id number] ? cc: Diomedes Shultz; Shalonda Coley MD [...] DD/ 1857 ? TD/TT: 12/23/24 1857 ? Zone Manager: ? Procedure Note Chin Diana - 12/23/2024 [facility] [address] [place] [address] XRay Report Signed Patient: Diana Myles LMR#: [id number] 8 : 1965Acct:[id number] Age/Sex: 59 / FADM Date: 12/23/24 Loc: HO.ED Attending Dr: Ordering Physician: Diomedes Shultz Date of Service: 12/23/24 Procedure(s): XR hand wrist RT Accession Number(s): [id number] cc: Diomedes Shultz; Shalonda Coley MD CLINICAL [...] in OV> 12/23/241857 DD/ 56 TD/TT: 12/23/241856 Zone Manager: [facility] External Provider IMG XR PROCEDURES Final Result * CT Head w/o Contrast (12/23/2024 4:42 PM EST) Anatomical Region Laterality Modality Head, Neck Computed Tomogra phy 12/23/2024 4:42 PM EST Narrative 12/23/2024 4:54 PM EST ? [facility] ?[address] ?[place] [address] ? CT Scan Report ? Signed ? Patient: Myles,Diana L ?MR#: [id number] ?? 8 ? : 1965 ?Acct:[id number] ? Age/Sex: 59 / F ?ADM Date: 02/21/25 ? Loc: HO.ED ? Attending Dr: ? Ordering Physician: Diomedes Shultz ?? Date of Service: 12/23/24 ?? Procedure(s): CT head/brain wo IV con ?? Accession Number(s): [id number] ? cc: Diomedes Shultz; Shalonda Coley MD ? Report Number: ?? [id number]: Total DLP = ??821.00 mGy-cm ?? EXAMINATION: [...] signed by Mathieu Lepe MD in OV> ?12/23/241650 ? DD/ 41 ? TD/TT: 12/23/241641 ? Zone Manager: ? Procedure Note Donotuseinterpreter, Image - 12/23/[address] [address] [address] Scan Report Signed Patient: Diana Myles LMR#: [id number] 8 : 1965Acct:[id number] Age/Sex: 59 / FADM Date: 12/23/24 Loc: HO.ED Attending Dr: Ordering Physician: Diomedes Shultz Date of Service: 12/23/24 Procedure(s): CT head/brain wo IV con Accession Number(s): [id number] cc: Diomedes Shultz; Shalonda Coley MD Report Number: [id number]: Total DLP = 821.00 mGy-cm EXAMINATION: CT [...] 12/23/24 1651 DD/ 1642 TD/TT: 12/23/24 1642 Zone Manager: [facility] External Provider IMG CT PROCEDURES Final Result * CT Cervical Spine w/o Contrast (12/23/2024 3:29 PM EST) Anatomical Region Laterality Modality Spine, C-spine Computed Tomogra phy 12/23/2024 3:29 PM EST Narrative 12/23/2024 4:57 PM EST ? [facility] ?[address] ?[place] [address] ? CT Scan Report ? Signed ? Patient: Myles,Diana L ?MR#: [id number] ?? 8 ? : 1965 ?Acct:[id number] ? Age/Sex: 59 / F ?ADM Date: 12/23/24 ? Loc: HO.ED ? Attending Dr: ? Ordering Physician: Diomedes Shultz ?? Date of Service: 12/23/24 ?? Procedure(s): CT cervical spine wo IV con ?? Accession Number(s): [id number] ? cc: Diomedes Shultz; Shalonda Coley MD ? Report Number: ?? [id number]: Total DLP = ??821.00 mGy-cm ?? EXAMINATION: [...] DD/ 1529 ? TD/TT: 12/23/24 1642 ? Zone Manager: ? Procedure Note Adalgisa, Chin - 12/23/[address] [place] [address] [address] Scan Report Signed Patient: Diana Myles LMR#: [id number] 8 : 1965Acct:[id number] Age/Sex: 59 / FADM Date: 12/23/24 Loc: HO.ED Attending Dr: Ordering Physician: Diomedes Shultz Date of Service: 12/23/24 Procedure(s): CT cervical spine wo IV con Accession Number(s): [id number] cc: Diomedes Shultz; Shalonda Coley MD Report Number: [id number]: Total DLP = 821.00 mGy-cm EXAMINATION: CT [...] 12/23/24 1654 DD/ 1529 TD/TT: 12/23/24 1642 Zone Manager: [facility] External Provider IMG CT PROCEDURES Final Result * XR Shoulder 2+ Views Right (12/23/2024 3:09 PM EST) Anatomical Region Laterality Modality Upper Extremities, Shoulder Right Radi ographic Imaging 12/23/2024 3:09 PM EST Narrative 12/23/2024 3:43 PM EST ? [place] [facility] ?[address] ?[place] [address] ?XRay Report ? Signed ? Patient: Myles,Diana L ?MR#: [id number] ?? 8 ? : 1965 ?Acct:[id number] ? Age/Sex: 59 / F ?ADM Date: 12/23/24 ? Loc: HO.ED ? Attending Dr: ? Ordering Physician: Diomedes Shultz ?? Date of Service: 12/23/24 ?? Procedure(s): XR shoulder RT min 2V ?? Accession Number(s): [id number] ? cc: Diomedes Shultz; Shalonda Coley MD [...] DD/ 1509 ? TD/TT: 12/23/24 1533 ? Zone Manager: ? Procedure Note Donmiguelter, Image - 12/23/[address] [address] XRay Report Signed Patient: Diana Myles LMR#: [id number] 8 : 1965Acct:[id number] Age/Sex: 59 / FADM Date: 12/23/24 Loc: HO.ED Attending Dr: Ordering Physician: Diomedes Shultz Date of Service: 12/23/24 Procedure(s): XR shoulder RT min 2V Accession Number(s): [id number] cc: Diomedes Shultz; Shalonda Coley MD EXAMINATION: [...] 12/23/24 1540 DD/ 1509 TD/TT: 12/23/24 1533 Zone Manager: [facility] External Provider IMG XR PROCEDURES Final Result * XR Hips Bilateral with Pelvis 1 view (12/23/2024 2:57 PM EST) Anatomical Region Laterality Modality Lower Extremities, Hip Bilateral Radiograp hic Imaging 12/23/2024 2:57 PM EST Narrative 12/23/2024 3:45 PM EST ? [facility] ?[address] ?[place] [address] ?XRay Report ? Signed ? Patient: Myles,Diana L ?MR#: [id number] ?? 8 ? : 1965 ?Acct:[id number] ? Age/Sex: 59 / F ?ADM Date: 12/23/24 ? Loc: HO.ED ? Attending Dr: ? Ordering Physician: Diomedes Shultz ?? Date of Service: 12/23/24 ?? Procedure(s): XR hip BI w PEL1V ?? Accession Number(s): [id number] ? cc: Diomedes Shultz; Shalonda Coley MD [...] by Steven Gary MD in OV> ? 12/23/243 ? DD/ 1457 ? TD/TT: 12/23/24 1533 ? Zone Manager: ? Procedure Note Donotjadeninterpreter, Image - 12/23/2024 [place] [address] XRay Report Signed Patient: Diana Myles LMR#: [id number] 8 : 1965Acct:[id number] Age/Sex: 59 / FADM Date: 12/23/24 Loc: HO.ED Attending Dr: Ordering Physician: Diomedes Shultz Date of Service: 12/23/24 Procedure(s): XR hip BI w PEL1V Accession Number(s): [id number] cc: Diomedes Shultz; Shalonda Coley MD EXAMINATION: [...] 12/23/24 1543 DD/ 1457 TD/TT: 12/23/24 1533 Zone Manager: us [facility] External Provider IMG XR PROCEDURES Final Result * XR Knee 4+ Views Right (12/23/2024 2:57 PM EST) Anatomical Region Laterality Modality Lower Extremities, Knee Right Radiogra phic Imaging 12/23/2024 2:57 PM EST Narrative 12/23/2024 3:44 PM EST ? [facility] ?[address] ?[place] [address] ?XRay Report ? Signed ? Patient: Myles,Diana L ?MR#: [id number] ?? 8 ? : 1965 ?Acct:[id number] ? Age/Sex: 59 / F ?ADM Date: 12/23/24 ? Loc: HO.ED ? Attending Dr: ? Ordering Physician: Diomedes Shultz ?? Date of Service: 12/23/24 ?? Procedure(s): XR knee RT 4V ?? Accession Number(s): [id number] ? cc: Diomedes Shultz; Shalonda Coley MD [...] DD/ 1457 ? TD/TT: 12/23/24 1533 ? Zone Manager: ? Procedure Note Chin Diana - 12/23/2024 [facility] [address] [place] [address] XRay Report Signed Patient: Diana Myles LMR#: [id number] 8 : 1965Acct:[id number] Age/Sex: 59 / FADM Date: 12/23/24 Loc: HO.ED Attending Dr: Ordering Physician: Diomedes Shultz Date of Service: 12/23/24 Procedure(s): XR knee RT 4V Accession Number(s): [id number] cc: Diomedes Shultz; Shalonda Coley MD EXAMINATION: [...] 12/23/24 1541 DD/ 1457 TD/TT: 12/23/24 1533 Zone Manager: [facility] External Provider IMG XR PROCEDURES Final Result * MR Knee w/o Contrast Left (12/06/2024 6:06 PM EST) Anatomical Region Laterality Modality Magnetic Resonan ce 12/06/2024 6:06 PM EST Narrative 12/08/2024 8:31 AM EST ? [facility] ?[address] ?[place] [address] ? Magnetic Resonance Report ? Signed ? Patient: Myles,Diana L ?MR#: [id number] ?? 8 ? : 1965 ?Acct:[id number] ? Age/Sex: 59 / F ?ADM Date: 02/04/25 ? Loc: HO.MRI ? Attending Dr: Denilson Forman PA-C ? Ordering Physician: Denilson Forman PA-C ?? Date of Service: 12/06/24 ?? Procedure(s): MR knee LT wo con ?? Accession Number(s): [id number] ? cc: Shalonda Coley MD; Denilson Forman [...] ?12/08/24 0829 ? DD/ 1806 ? TD/TT: 12/06/241816 ? Zone Manager: ? Procedure Note Chin Diana - 12/08/2024 [place] [address] Magnetic Resonance Report Signed Patient: Diana Myles LMR#: [id number] 8 : 1965Acct:[id number] Age/Sex: 59 / FADM Date: 12/06/24 Loc: HO.MRI Attending Dr: Denilson Forman PA-C Ordering Physician: Denilson Forman PA-C Date of Service: 12/06/24 Procedure(s): MR knee LT wo con Accession Number(s): [id number] cc: Shalonda Coley MD; Denilson Forman PA-C [...] 12/08/24 0829 DD/ 05 TD/TT: 12/06/24 181 Zone Manager: [facility] External Provider IMG MRI PROCEDURES Final Result * BI Mammogram Screening Tomosynthesis Bilateral (11/29/2024 8:45 AM EST) Anatomical Region Laterality Modality Breast Bilateral Mammography 11/29/2024 8:45 AM EST Narrative 12/07/2024 3:35 PM EST ? [facility] ? [address] ?[place] [address] ? Mammography Report ? Signed ? Patient: Myles,Diana L ?MR#: [id number] ?? 8 ? : 1965 ?Acct:[id number] ? Age/Sex: 59 / F ?ADM Date: 11/29/24 ? Loc: HO.MAMMO ? Attending Dr: Shalonda Coley MD ? Ordering Physician: Shalonda Coley MD ?Results: 2Be ?? nign Findings ? Date of Service: 11/29/24 ?Follow Up: 1 Year From Orig ?? inal Mammogram ? Procedure(s): MM tomosynthesis screening BI ?? Accession Number(s): [id number] ? cc: Shalonda Coley MD ? EXAMINATION: [...] 12/07/24 1532 ? DD/ 0845 ? TD/TT: 11/29/2415 ? Zone Manager: ? Procedure Note Adalgisa, Chin - 12/07/2024 [place] [facility] [address] [place] [address] Mammography Report Signed Patient: Diana Myles LMR#: [id number] 8 : 1965Acct:[id number] Age/Sex: 59 / FADM Date: 11/29/24 Loc: HO.MAMMO Attending Dr: Shalonda Coley MD Ordering Physician: Shalonda Coley MDResults: 2Be nign Findings Date of Service: 11/29/24Follow Up: 1 Year From Orig inal Mammogram Procedure(s): MM tomosynthesis screening BI Accession Number(s): [id number] cc: Shalonda Coley MD EXAMINATION: MM SCREENING [...] 12/07/24 1532 DD/ 0845 TD/TT: 11/29/24 0915 Zone Manager: Shalonda Coley MD IMG BI PROCEDURES Edited Result - Final * POCT Rapid RSV ROJAS ID NOW (11/10/2024 2:01 PM EST) Pathologist [facility] RSV Rapid Ag POC Negative Negative Swab 11/10/2024 2:01 PM EST Shalonda Coley MD POINT OF CARE TEST ENTER /EDIT ORDERABLES Final Result * POCT Rapid Influenza B ROJAS ID NOW (11/10/2024 2:01 PM EST) Pathologist [facility] Influenza B Negative Negative, Indeterminate [facility] Swab 11/10/2024 2:01 PM EST Shalonda Coley MD POINT OF CARE TEST ENTER /EDIT ORDERABLES Final Result Performing Organization Address [facility] Co de Phone Number [facility] [address] [place] [phone] * POCT Rapid Influenza A ROJAS ID NOW (11/10/2024 2:01 PM EST) Pathologist [facility] Influenza A Negative Negative, Indeterminate [facility] Swab 11/10/2024 2:01 PM EST Shalonda Coley MD POINT OF CARE TEST ENTER /EDIT ORDERABLES Final Result Performing Organization Address [facility] Co de Phone Number [facility] [address] [place] [phone] * POCT Rapid Covid-19 BinaxNOW (11/10/2024 2:01 PM EST) [facility] Rapid COVID Ag Negative Swab 11/10/2024 2:01 PM EST Shalonda Coley MD POINT OF CARE TEST ENTER /EDIT ORDERABLES Final Result * (ABNORMAL) Hm Colonoscopy (07/30/2023) [facility] Colonoscopy Abnormal( A) Normal [facility] Comment:SSL polyp Shalonda Coley MD HEALTH MAINTENANCE Final Result Performing Organization Address [facility] Co de Phone Number [facility] [address] [place] [phone] * Thinprep PAP and HPV nRNA E6/E7 (10/08/2022 9:30 AM EST) [facility] Clinical Information: None given [facility] LMP: NONE GIVEN [facility] Prev. PAP: NONE GIVEN [facility] Prev. BX: NONE GIVEN [facility] SOURCE: None given [facility] Statement Of Adequacy: SATISFACTORY FOR EVALUATION Age and/or menstrual status not provided [employer] Interpretation/Re sult: [employer] [employer] [facility] [facility] Comment: Negative for intraepithelial lesion or malignancy. Atrophic pattern; predominantly parabasal cells Electrical Electronics Engineers: Siria [employer] [place] [employer] Comment: DMM, CT(ASCP) CT screening location: [address] ??[address] Review Electrical Electronics Engineers: [employer] Comment: MAA, CT(ASCP) CT screening location: [address] ??[address] (Always Message) [facility] Comment: EXPLANATORY NOTE: The Pap is a [...] HPV nRNA E6/E7 Not Detected Not Detected [facility] Comment: Methodology: Manager Outpatient-Mediated Amplification This assay detects E6/E7 viral messenger RNA (mRNA) from 14 high-risk HPV types (16,18,31,33,35,39,45,51,52,56,58,59,66,68). Cervical sources are required for HPV testing. If a vaginal source from a patient who has had a total hysterectomy with removal of cervix was submitted, please contact the testing laboratory for alternative testing options. For additional information, please refer to http://education.Chief Trunk/faq/ULQ781f3 (This link if provided for information/ educational purposes only.) 10/08/2022 9:30 AM EST 10/10/2022 1:07 AM EST Narrative [facility] - 10/14/2022 7:08 PM EST FASTING: UNKNOWN Shauna Matamoros CNM LAB PATHOLOGY ORDERABLES Final Result Mayomi [address] [place] [address], [place] [address] [employer] [address] [place] [address], [place] [address] * HIV AB/AG (04/30/2022 11:28 AM EDT) [facility] HIV AB/AG Nonreactive Nonreactive [facility] Comment: HIV-1 p24 Ag [...] detection of this assay. ?? The [employer] Member Service Specialist HIV Ag/Ab Combo assay result and supplemental [...] Coley MD HISTORICAL/NON ORDERABLE LABS Final Result Performing Organization Address City/State/[facility] Co de Phone Number [facility] [address] from Last 3 Months or Most Recently Relevant to Health Maintenance Insurance [facility] [place] [place] C3 [facility] MEDICAID STAND ADULT Care Teams Temperature Inspector Relationship Specialty Start Date End Date Shalonda Coley MD [address] [place] [address] PCP - General Family Medicine 10/31/16 West Meier, BEBA [address] [place] [address] Rehabilitation Services CounselorHuman Anatomy Teacher 01/12/25 [facility] 11/14/24
--- OUTSIDE RECORDS SUMMARY | 2025-01-17 13:57 | XMS_ITS | Encounter Summary ---
Author Organization [employer] Address 75 [facility] 7t [place] [address] Care Team Providers Care Laundry Room Attendant Name Role Phone Umm Coley MD Primary Care Provider + [place] RN Unavailable [phone] Reason for Visit * Reason Comments Care Coordination C3 [facility] Shannan chang telephone call outreach Encounter Details Date Type Department Care Team (Latest Contact Info) Description 01/13/[address] [facility] MEDICINE [address] [place] [address] Umm Coley MD [address] [place] [address] Care Coordination ([facility] telephone call outreach) Social History Tobacco [...] encounter Progress Notes * Shannan Covington - 01/13/2025 11:58 AM EDT CHW Shannan Covington placed outbound call to patient for follow up call on SDOH needs. No answer at thistime. LVM introducing herself from [facility] CM Department. Requested call back. CHW reinforced direct contact information or CM for any additional questionsor concerns and extended clinic hours on Mondays and Wednesdays, and Walk-In Urgent Care Located inLobby of [facility]. Patient provided with after-hours line for [facility], , which offer night time triage service and option to transfer to donor services coordinator provider if needed. CHW will attempt another followup call within 10 days. documented in this encounter Plan of Treatment Upcoming Encounters Date Type Department Care Team (Late st Contact Info) Description 02/03/2025 2:00 PM EDT Office Visit [facility] MEDICINE [address] [place] [address] Darrell Myers MD [address] [place] [address] 03/08/2025 10:00 AM EDT Office Visit [facility] ADULT DENTAL [address] [place], [place] [phone] Mariangel Ruff [address] [place], [place] [phone] documented as of this encounter Visit Diagnoses Not on filedocumented in this encounter Additional Health Concerns Assessment Noted Time PHQ-9 Depression Total Score: 10 024 9:17 AM EDT documented as of this encounter Care Teams Laundry Room Attendant Relationship Specialty Start Date End Date Umm Coley MD [address] [place], [place] [phone] PCP - General Family Medicine 10/31/16 [place], BEBA [address] [place] [address] Combination Machine Tool OperatorServices Coordinator 01/12/25 [facility] 11/14/24 documented as of this encounter
--- OUTSIDE RECORDS SUMMARY | 2025-01-17 13:57 | XMS_ITS | Encounter Summary ---
Author Organization [employer] Address 75 [facility] 7t [place] [address] Care Team Providers Care Cut Out Press Operator Name Role Phone Umm Coley MD Primary Care Provider + Encounter Details Date Type Department Care Team (Late st Contact Info) Description 12/28/2024 Telephone [facility] MED[facility]INE [address] [place], [place] [phone] Umm Coley MD [address] [place], [place] [phone] Social History Tobacco Use Types Packs/Day Years [...] 2:00 PM EDT Office Visit [facility] MED[facility]INE [address] [place] [address] Darrell Myers MD [address] [place] [address] 03/08/2025 10:00 AM EDT Office Visit [facility]ULT [facility] [address] [place] [address] Mariangel Ruff [address] [place] [address] documented as of this encounter Visit Diagnoses Not on filedocumented in this encounter Additional Health Concerns Assessment Noted Time PHQ-9 Depression Total Score: 10 024 9:17 AM EDT documented as of this encounter Care Teams Cut Out Press Operator Relationship Specialty Start Date End Date Umm Coley MD [address] [place] [address] PCP - General Family Medicine 10/31/16 [facility] 11/14/24 documented as of this encounter
--- OUTSIDE RECORDS SUMMARY | 2025-01-17 13:57 | XMS_ITS | Encounter Summary ---
Author Organization [employer] Address 75 [facility] 7t [place] [address] Care Team Providers Care Hot Kettle Tender Name Role Phone Umm Coley MD Primary Care Provider + [place] RN Unavailable [phone] Reason for Visit * Reason Onset Date Comments appt 01/08/2024 Encounter Details Date Type Department Care Team ([facility] st Contact Info) Description 01/08/2024 Telephone [facility] ADULT DENTAL [address] [place] [address] Homer Strong, DMD [address] [place] [address] appt Social History Tobacco Use Types Packs/Day [...] Office Visit [facility] MEDICINE [address] [place] [address] Darrell Myers MD [address] [place] [address] 03/08/2025 10:00 AM EDT Office Visit [facility] ADULT DENTAL [address] [place], [place] [phone] Mariangel Ruff [address] [place] [address] documented as of this encounter Visit Diagnoses Not on filedocumented in this encounter Additional Health Concerns Assessment Noted Time PHQ-9 Depression Total Score: 21 024 11:31 AM EST documented as of this encounter Care Teams Hot Kettle Tender Relationship Specialty Start Date End Date Umm Coley MD [address] [place] [address] PCP - General Family Medicine 10/31/16 [place] Me[place], BEBA [address] [place] [address] Gas Plant SpecialistCertified Dialysis Technician 01/12/25 Eva Nunez Gas Plant Specialist 04/05/24 07/06/24 [facility] 05/11/24 11/17/24 [facility] 11/14/24 documented as of this encounter
--- OUTSIDE RECORDS SUMMARY | 2025-01-17 13:57 | XMS_ITS | Encounter Summary ---
Author Organization [employer] Address 75 [facility] 7t [place] [address] Care Team Providers Care Storage Battery Charger Name Role Phone Umm Coley MD Primary Care Provider + Reason for Visit * Reason Onset Date Comments Medication List 12/28/2024 Encounter Details Date Type Department Care Team ([facility] st Contact Info) Description 12/28/2024 Telephone [facility] MEDICINE [address] [place], [place] [phone] Umm Coley MD [address] [place], [place] [phone] Medication List Social History Tobacco Use Types [...] they currently have is the one from [facility] (our office). RN was informed the medications [...] 02/03/2025 2:00 PM EDT Office Visit [facility] MEDICINE [address] [place], [place] [phone] Darrell Myers MD [address] [place] [address] 03/08/2025 10:00 AM EDT Office Visit [facility] ADULT DENTAL [address] [place] [address] Mariangel Ruff [address] [place] [address] documented as of this encounter Visit Diagnoses Not on filedocumented in this encounter Additional Health Concerns Assessment Noted Time PHQ-9 Depression Total Score: 10 024 9:17 AM EDT documented as of this encounter Care Teams Storage Battery Charger Relationship Specialty Start Date End Date Umm Coley MD [address] [place] [address] PCP - General Family Medicine 10/31/16 [facility] 11/14/24 documented as of this encounter
--- OUTSIDE RECORDS SUMMARY | 2025-01-17 13:57 | XMS_ITS | Encounter Summary ---
Author Organization [employer] Address 75 [facility] 7t [place] [address] Care Team Providers Care Smoking Pipe Coater Name Role Phone Umm Coley MD Primary Care Provider + [place] Me[place] RN Unavailable [phone] Encounter Details Date Type Department Care Team (Late st Contact Info) Description 11/03/2022 Orders Only [facility] MED[facility]INE [address] [place], [place] [phone] Umm Coley MD [address] [place], [place] [phone] Osteopenia after menopause (Primary Dx) Social History [...] Office Visit [facility] [address] [place], [place] [phone] Darrell Myers MD [address] [place], [place] [phone] 03/08/2025 10:00 AM EDT Office Visit [facility] ADULT DENTAL [address] [place], [place] [phone] Elzbieta, Mariangel [address] [place], [place] [phone] Scheduled Orders Name Type Priority Associated Diagnoses Orde r Schedule Vitamin D, 25-Hydroxy, Total, Immunoassay Lab Routine Osteopenia after menopause Expected: 11/03/2022 (Approximate), Expires: 11/03/2023 PTH, Intact (ICMA) And Ionized Calcium Lab Routine Osteopenia after menopause Expected: 11/03/2022 (Approximate), Expires: 11/03/2023 documented as of this encounter Visit Diagnoses Diagnosis Osteopenia after menopause- Primary documented in this encounter Care Teams Smoking Pipe Coater Relationship Specialty Start Date End Date Umm Coley MD [address] [place] [address] PCP - General Family Medicine 10/31/16 West Meier, RN [address] [place] [address] Decal ApplierControl Systems Engineer 01/12/25 Eva Nunez Decal Applier 04/05/24 07/06/24 [facility] 05/11/24 11/17/24 [facility] 11/14/24 documented as of this encounter
--- OUTSIDE RECORDS SUMMARY | 2025-01-17 13:57 | XMS_ITS | Encounter Summary ---
Author Organization [employer] Address 75 [facility] 7t [place] [address] Care Team Providers Care Acid Pump Operator Name Role Phone Umm Coley MD Primary Care Provider + Encounter Details Date Type Department Care Team (Late st Contact Info) Description 01/02/2025 Orders Only [facility] External Provider, [facility] Social History Tobacco Use Types Packs/Day Years [...] PM EDT Office Visit [facility] MEDICINE [address] [place] [address] Darrell Myers MD [address] [place] [address] 03/08/2025 10:00 AM EDT Office Visit [facility] ADULT DENTAL [address] [place] [address] Trino Ruffaris [address] [place] [address] documented as of this encounter Procedures Procedure Name Priority Date/Time Associated Diagnosis Comments FL GUIDANCE IN OR Routine 01/02/2025 12: 09 PM EST documented in this encounter Results * FL Guidance in OR (01/02/2025 12:09 PM EST) Anatomical Region Laterality Modality X-Ray Angiograph y 01/02/2025 12:0 9 PM EST Narrative 01/03/2025 9:58 AM EST ? [facility] ?[address] ?[place] [address] ? Fluoroscopy Report ? Signed ? Patient: Myles,Diana L ?MR#: [id number] ?? 8 ? : 1965 ?Acct:[id number] ? Age/Sex: 59 / F ?ADM Date: 03/03/25 ? Loc: HO.SSS ? Attending Dr: Sydney Cleveland MD ? Ordering Physician: Sydney Cleveland MD ?? Date of Service: 01/02/25 ?? Procedure(s): FL guidance in OR ?? Accession Number(s): [id number] ? cc: Umm Coley MD; Sydney Cleveland [...] DD/ 1209 ? TD/TT: 01/02/25 1510 ? Cement Truck Driver: MSM ? Procedure Note Chin Diana - 01/03/2025 [place] [address] Fluoroscopy Report Signed Patient: Diana Myles LMR#: [id number] 8 : 1965Acct:[id number] Age/Sex: 59 / FADM Date: 01/02/25 Loc: HO.SSS Attending Dr: Sydney Cleveland MD Ordering Physician: Sydney Cleveland MD Date of Service: 01/02/25 Procedure(s): FL guidance in OR Accession Number(s): [id number] cc: Umm Coley MD; Sydney Cleveland MD [...] by: Natanael Smith MD 01/03/2025 09:56 AM [facility] Dictated By: Natanael Smith MD Signed By: <Electronically signed by Natanael Smith MD in OV> 01/03/25 0956 DD/ 1209 TD/TT: 01/02/25 1510 Cement Truck Driver: ANTONY [facility] External Provider IMG IR PROCEDURES Final Result documented in this encounter Visit Diagnoses Not on filedocumented in this encounter Additional Health Concerns Assessment Noted Time PHQ-9 Depression Total Score: 10 06/10/ 024 9:17 AM EDT documented as of this encounter Care Teams Acid Pump Operator Relationship Specialty Start Date End Date Umm Coley MD [address] [place] [address] PCP - General Family Medicine 10/31/16 [facility] 11/14/24 documented as of this encounter
--- OUTSIDE RECORDS SUMMARY | 2025-01-17 13:57 | XMS_ITS | Encounter Summary ---
Author Organization [employer] Address 75 [facility] 7t [place] [address] Care Team Providers Care Nutrition Aides Teacher Name Role Phone Umm Coley MD Primary Care Provider + Reason for Visit * Reason Onset Date Comments Appointment Request 12/26/2024 Encounter Details Date Type Department Care Team ([facility] st Contact Info) Description 12/26/2024 Telephone [facility] MEDICINE [address] [place], [place] [phone] Umm Coley MD [address] [place], [place] [phone] Appointment Request Social History Tobacco Use Types [...] fracture. RN inquired if patient can have ATOMIC FUEL ASSEMBLER assist her in dressing in order for patient to be able to come to [facility] to be evaluated. Patient verbalized understanding and reports she will havePCA assist her. Patient reminded of appointment time. Patient to f/u PRN. * Telephone Encounter - Gisela Reynoso RN - 12/26/2024 10:30 AM EST TC placed to [phone] in regards to below message. Patient did [...] at that time tomorrow. Contact pt at [phone] documented in this encounter Plan of Treatment Upcoming Encounters Date Type Department Care Team (Late st Contact Info) Description 02/03/2025 2:00 PM EDT Office Visit [facility] MEDICINE [address] [place] [address] Darrell Myers MD [address] [place] [address] 03/08/2025 10:00 AM EDT Office Visit [facility] ADULT DENTAL [address] [place] [address] Mariangel Ruff [address] [place] [address] documented as of this encounter Visit Diagnoses Not on filedocumented in this encounter Additional Health Concerns Assessment Noted Time PHQ-9 Depression Total Score: 10 024 9:17 AM EDT documented as of this encounter Care Teams Nutrition Aides Teacher Relationship Specialty Start Date End Date Umm Coley MD [address] [place] [address] PCP - General Family Medicine 10/31/16 [facility] 11/14/24 documented as of this encounter
--- OUTSIDE RECORDS SUMMARY | 2025-01-17 13:57 | XMS_ITS | Encounter Summary ---
Author Organization [employer] Address 75 [facility] 7t [place] [address] Care Team Providers Care Tourist Cabin Keeper Name Role Phone Umm Coley MD Primary Care Provider + Reason for Visit * Reason Onset Date Comments Results 12/29/2024 Encounter Details Date Type Department Care Team ([facility] st Contact Info) Description 12/29/2024 Telephone [facility] MEDICINE [address] [place], [place] [phone] Umm Coley MD [address] [place], [place] [phone] Results Social History Tobacco Use Types Packs/Day [...] 8:33 AM EST TC placed to patient [phone] in regards to below message. Patient informed chest Xray and RibsXray returned WNL. Patient verbalized understanding. Patient to f/u PRN. * Telephone Encounter - Rossana Lawrence - 12/29/2024 8:14 AM EST TC from pt requesting call back regarding Results. Type of results: XRAY Chest Date when done: 12/27 Facility: [facility] documented in this encounter Plan of Treatment Upcoming Encounters Date Type Department Care Team (Late st Contact Info) Description 02/03/2025 2:00 PM EDT Office Visit [facility] MEDICINE [address] [place] [address] Darrell Myers MD [address] [place] [address] 03/08/2025 10:00 AM EDT Office Visit [facility] ADULT DENTAL [address] [place] [address] Mariangel Ruff [address] [place] [address] documented as of this encounter Visit Diagnoses Not on filedocumented in this encounter Additional Health Concerns Assessment Noted Time PHQ-9 Depression Total Score: 10 024 9:17 AM EDT documented as of this encounter Care Teams Tourist Cabin Keeper Relationship Specialty Start Date End Date Umm Coley MD [address] [place] [address] PCP - General Family Medicine 10/31/16 [facility] 11/14/24 documented as of this encounter
--- OUTSIDE RECORDS SUMMARY | 2025-01-17 13:57 | XMS_ITS | Encounter Summary ---
Author Organization [facility] [place] [facility] [employer] Address 75 [facility] 7t [place] [address] Care Team Providers Care Neurosurgery Spine Physician Name Role Phone Umm Coley MD Primary Care Provider + [place] Meier RN Unavailable [phone] Reason for Visit * Reason Onset Date Comments Care Management 01/16/2025 C3CM Encounter Details Date Type Department Care Team ([facility] st Contact Info) Description 01/16/2025 Telephone [facility] MEDICINE [address] [place], [place] [phone] Umm Coley MD [address] [place], [place] [phone] Care Management (C3CM) Social History Tobacco Use Types Packs/Day Years [...] Telephone Encounter - West Meier RN - 01/16/2025 1:07 PM EDT CM called patient to remind of appointment tomorrow with hand surgeon. Spoke with patient who planson keeping appointment. Patient report that she is wearing a cast, and her sutures are going to be removed tomorrow. Patient reported that she continues with hand pain, numbness, and finger swelling.Patients state her appointment is tomorrow at [address] at 11:30 AM and that the appointment scheduled on is to discuss results and plan of care of left knee MRI. CM inform patient to follow up PRN. Pt verbalizes understanding and agreed to plan. documented in this encounter Plan of Treatment Upcoming Encounters Date Type Department Care Team (Late st Contact Info) Description 02/03/2025 2:00 PM EDT Office Visit [facility] MEDICINE [address] [place] [address] Darrell Myers MD [address] [place] [address] 03/08/2025 10:00 AM EDT Office Visit [facility] ADULT DENTAL [address] [place], [place] [phone] ElzbietaMariangel alexander [address] [place] [address] documented as of this encounter Visit Diagnoses Not on filedocumented in this encounter Additional Health Concerns Assessment Noted Time PHQ-9 Depression Total Score: 10 06/10/ 024 9:17 AM EDT documented as of this encounter Care Teams Neurosurgery Spine Physician Relationship Specialty Start Date End Date Umm Coley MD [address] [place] [address] PCP - General Family Medicine 10/31/16 West Meier, BEBA [address] [place] [address] Workforce Management ConsultantFinishing Manager 01/12/25 [facility] 11/14/24 documented as of this encounter
--- OUTSIDE RECORDS SUMMARY | 2025-01-17 13:57 | XMS_ITS | Encounter Summary ---
Author Organization [employer] [facility] Address [address] [place] [address] 7t [place] [address] Care Team Providers Care Bag Press Operator Name Role Phone Umm Coley MD Primary Care Provider + West Me[place] RN Unavailable [phone] Encounter Details Date Type Department Care Team (Late st Contact Info) Description 09/24/2022 Abstract [facility] ADULT DENTAL [address] [place] [address] Dental, Provider, DDS Social History Tobacco Use [...] Description 02/03/2025 2:00 PM EDT Office Visit [facility] MEDICINE [address] [place] [address] Darrell Myers MD [address] [place] [address] 03/08/2025 10:00 AM EDT Office Visit [facility] ADULT DENTAL [address] [place] [address] Mariangel Ruff [address] [place] [address] documented as of this encounter Procedures Procedure [...] on filedocumented in this encounter Care Teams Bag Press Operator Relationship Specialty Start Date End Date Umm Coley MD [address] [place] [address] PCP - General Family Medicine 10/31/16 [place] Meier, BEBA [address] [place] [address] Clinical Exercise PhysiologistEsl Instructional Assistant 01/12/25 Eva Nunez Clinical Exercise Physiologist 04/05/24 07/06/24 [facility] 05/11/24 11/17/24 [facility] 11/14/24 documented as of this encounter
--- OUTSIDE RECORDS SUMMARY | 2025-01-17 13:58 | XMS_ITS | Encounter Summary ---
Author Organization [employer] Address 75 [facility] 7t [place] [address] Care Team Providers Care Graphic Engineer Name Role Phone Umm Coley MD Primary Care Provider + [place] Meier RN Unavailable Reason for Visit * Reason Comments Med Change Request Encounter Details Date Type Department Care Team ([facility] Contact Info) Description 03/20/2023 Refill [facility] ADULT DENTAL [address] [place] [address] Johnny Gonzalez DMD [address] [place] [address] Social History Tobacco Use Types Packs/Day Years [...] Description 02/03/2025 2:00 PM EDT Office Visit [facility] MEDICINE [address] [place], [place] [phone] Darrell Myers MD [address] [place] [address] 03/08/2025 10:00 AM EDT Office Visit [facility] ADULT DENTAL [address] [place], [place] [phone] ElzbietaMariangel [address] [place] [address] documented as of this encounter Visit Diagnoses Not on filedocumented in this encounter Care Teams Graphic Engineer Relationship Specialty Start Date End Date Umm Coley MD [address] [place] [address] PCP - General Family Medicine 10/31/16 [place] Me[place], BEBA [address] [place] [address] Duct CleanerPure Pak Machine Operator 01/12/25 Eva Nunez Duct Cleaner 04/05/24 07/06/24 [facility] 05/11/24 11/17/24 [facility] 11/14/24 documented as of this encounter
--- OUTSIDE RECORDS SUMMARY | 2025-01-17 13:58 | XMS_ITS | Encounter Summary ---
Author Organization [employer] Address [address] [facility] 7t [place] [address] Care Team Providers Care Campground Caretaker Name Role Phone Umm Coley MD Primary Care Provider + West Meier RN Unavailable [phone] Reason for Visit * Reason Comments Med Change Request Encounter Details Date Type Department Care Team ([facility] Contact Info) Description 03/20/2023 Refill [facility] ADULT DENTAL [address] [place] [address] Johnny Gonzalez, WILIAN [address] [place] [address] Social History Tobacco Use Types Packs/Day Years [...] Office Visit [facility] MEDICINE [address] [place] [address] Darrell Myers MD [address] [place] [address] 03/08/2025 10:00 AM EDT Office Visit [facility] ADULT DENTAL [address] [place], [place] [phone] ElzbietaMariangel 230 [place] [address] documented as of this encounter Visit Diagnoses Not on filedocumented in this encounter Care Teams Campground Caretaker Relationship Specialty Start Date End Date Umm Coley MD [address] [place] [address] PCP - General Family Medicine 10/31/16 West Meier, BEBA 505 [place] [address] Human Anatomy TeacherSupervisor Frame Sample And Pattern 01/12/25 Eva Nunez Human Anatomy Teacher 04/05/24 07/06/24 [facility] 05/11/24 11/17/24 [facility] 11/14/24 documented as of this encounter
--- OUTSIDE RECORDS SUMMARY | 2025-01-17 13:58 | XMS_ITS | Encounter Summary ---
Author Organization [employer] Address [address] [facility] 7t [place] [address] Care Team Providers Care Bottle Caser Name Role Phone Umm Coley MD Primary Care Provider + West Meier RN Unavailable [phone] Reason for Visit * Reason Onset Date Comments Appointment 02/24/2023 Encounter Details Date Type Department Care Team ([facility] st Contact Info) Description 02/24/2023 Telephone [facility] ADULT DENTAL [address] [place] [address] Johnny Gonzalez, WILIAN [address] [place], [place] [phone] Appointment Social History Tobacco Use Types Packs/Day [...] 2:00 PM EDT Office Visit [facility] MEDICINE [address] [place] [address] Darrell Myers MD [address] [place] [address] 03/08/2025 10:00 AM EDT Office Visit [facility] ADULT DENTAL [address] [place] [address] Mariangel Ruff [address] [place] [address] documented as of this encounter Visit Diagnoses Not on filedocumented in this encounter Care Teams Bottle Caser Relationship Specialty Start Date End Date Umm Coley MD [address] [place] [address] PCP - General Family Medicine 10/31/16 West Meier RN 505 [place] [address] Log GraderLoss Prevention Guard 01/12/25 Eva Nunez Log Grader 04/05/24 07/06/24 [facility] 05/11/24 11/17/24 [facility] 11/14/24 documented as of this encounter
--- OUTSIDE RECORDS SUMMARY | 2025-01-17 13:58 | XMS_ITS | Encounter Summary ---
Author Organization [employer] Address 75 [facility] 7t [place] [address] Care Team Providers Care Manager Psychology Name Role Phone Umm Coley MD Primary Care Provider + Reason for Visit * Reason Onset Date Comments Nurse Triage 01/06/2025 Encounter Details Date Type Department Care Team ([facility] st Contact Info) Description 01/06/2025 Telephone [facility] MEDICINE [address] [place], [place] [phone] Umm Coley MD 230 [place], [place] [phone] Nurse Triage Social History Tobacco Use Types [...] pt to triage, spoke to pt. through [employer]. pt requesting post op appt for [...] acuity questions The caller accepted this outcome. [phone] documented in this encounter Plan of Treatment Upcoming Encounters Date Type Department Care Team (Late st Contact Info) Description 02/03/2025 2:00 PM EDT Office Visit [facility] MEDICINE [address] [place] [address] Darrell Myers MD [address] [place] [address] 03/08/2025 10:00 AM EDT Office Visit [facility] ADULT DENTAL [address] [place], [place] [phone] Mariangel Ruff [address] [place] [address] documented as of this encounter Visit Diagnoses Not on filedocumented in this encounter Additional Health Concerns Assessment Noted Time PHQ-9 Depression Total Score: 10 024 9:17 AM EDT documented as of this encounter Care Teams Manager Psychology Relationship Specialty Start Date End Date Umm Coley MD [address] [place] [address] [phone] PCP - General Family Medicine 10/31/16 [facility] 11/14/24 documented as of this encounter
--- OUTSIDE RECORDS SUMMARY | 2025-01-17 13:58 | XMS_ITS | Encounter Summary ---
Author Organization [employer] Address 75 [facility] 7t [place] [address] Care Team Providers Care Internet Developer Name Role Phone Umm Coley MD Primary Care Provider + West Meier RN Unavailable [phone] Encounter Details Date Type Department Care Team ([facility] st Contact Info) Description 08/23/[address] [facility] ADULT DENTAL [address] [place], [place] [phone] Johnny Gonzalez, DMD [address] [place] [address] Social History Tobacco Use Types Packs/Day Years [...] Description 02/03/2025 2:00 PM EDT Office Visit [facility] MEDICINE [address] [place] [address] Darrell Myers MD 230 [place] [address] 03/08/2025 10:00 AM EDT Office Visit [facility] ADULT DENTAL 230 [place] [address] Elzbieta, Mariangel 230 [place] [address] documented as of this encounter Visit Diagnoses Not on filedocumented in this encounter Additional Health Concerns Assessment Noted Time PHQ-9 Depression Total Score: 10 024 9:17 AM EDT documented as of this encounter Care Teams Internet Developer Relationship Specialty Start Date End Date Umm Coley MD [address] [place] [address] PCP - General Family Medicine 10/31/16 West Meier, BEBA 505 [place] [address] Kiln SetterDirector Telehealth 01/12/25 [facility] 05/11/24 11/17/24 [facility] 11/14/24 documented as of this encounter
--- OUTSIDE RECORDS SUMMARY | 2025-01-17 13:58 | XMS_ITS | Encounter Summary ---
Author Organization [employer] [facility] Address [address] [place] [address] 7t [place] [address] Care Team Providers Care Security Guards Dispatcher Name Role Phone Umm Coley MD Primary Care Provider + West Meier RN Unavailable [phone] Reason for Visit * Reason Comments Med Refill Encounter Details Date Type Department Care Team ([facility] Contact Info) Description 02/05/2023 Refill [facility] MEDICINE 230 [place], [place] [phone] Umm Coley MD 230 [place], [place] [phone] Arthritis of knee Social History Tobacco Use [...] Upcoming Encounters Date Type Department Care Team ([facility] Contact Info) Description 02/03/2025 2:00 PM EDT Office Visit [facility] MEDICINE 230 [place] [address] Darrell Myers MD 230 [place] [address] 03/08/2025 10:00 AM EDT Office Visit [facility] ADULT DENTAL [address] [place], [place] [phone] Mariangel Ruff [address] [place] [address] documented as of this encounter Visit Diagnoses Diagnosis Arthritis of knee Unspecified arthropathy, lower leg documented in this encounter Care Teams Security Guards Dispatcher Relationship Specialty Start Date End Date Umm Coley MD 230 [place] [address] PCP - General Family Medicine 10/31/16 West Meier, BEBA [address] [place] [address] Talent Management SpecialistRepresentative Phlebotomy Services 01/12/25 Eva Nunez Talent Management Specialist 04/05/24 07/06/24 [facility] 05/11/24 11/17/24 [facility] 11/14/24 documented as of this encounter
--- OUTSIDE RECORDS SUMMARY | 2025-01-17 13:58 | XMS_ITS | Encounter Summary ---
Author Organization [employer] [facility] Address [address] [place] [address] 7t [place] [address] Care Team Providers Care General Magistrate Name Role Phone Umm Coley MD Primary Care Provider + West Meier RN Unavailable [phone] Reason for Visit * Reason Comments Med Refill Encounter Details Date Type Department Care Team ([facility] Contact Info) Description 08/01/2023 Refill [facility] 230 [place], [place] [phone] Umm Coley MD 230 [place], [place] [phone] Social History Tobacco Use Types Packs/Day Years [...] Upcoming Encounters Date Type Department Care Team ([facility] Contact Info) Description 02/03/2025 2:00 PM EDT Office Visit [facility] 230 [place], [place] [phone] Darrell Myers MD 230 [place] [address] 03/08/2025 10:00 AM EDT Office Visit [facility] ADULT DENTAL 230 [place], [place] [phone] Mariangel Ruff 230 [place], [place] [phone] documented as of this encounter Visit Diagnoses Not on filedocumented in this encounter Additional Health Concerns Assessment Noted Time PHQ-9 Depression Total Score: 12 023 1:58 PM EDT documented as of this encounter Care Teams General Magistrate Relationship Specialty Start Date End Date Umm Coley MD 230 [place], [place] [phone] PCP - General Family Medicine 10/31/16 West Meier, BEBA [address] [place] [address] Substitute School NurseTowel Cabinet Repairer 01/12/25 Eva Nunez Substitute School Nurse 04/05/24 07/06/24 [facility] 05/11/24 11/17/24 [facility] 11/14/24 documented as of this encounter
--- OUTSIDE RECORDS SUMMARY | 2025-01-17 13:58 | XMS_ITS | Encounter Summary ---
Author Organization [employer] [facility] Address [address] [place] [address] 7t [place] [address] Care Team Providers Care C D Stripper Name Role Phone Umm Coley MD Primary Care Provider + West Meier RN Unavailable [phone] Reason for Visit * Reason Comments Med Refill Encounter Details Date Type Department Care Team (Late Contact Info) Description 06/10/2023 Refill [facility] MEDICINE 230 [place] [address] Yenny Morris MD [address] [place], [place] [phone] Rash Social History Tobacco Use Types Packs/Day [...] Upcoming Encounters Date Type Department Care Team ([facility] Contact Info) Description 02/03/2025 2:00 PM EDT Office Visit [facility] MEDICINE 230 [place], [place] [phone] Darrell Myers MD [address] [place], [place] [phone] 03/08/2025 10:00 AM EDT Office Visit [facility] ADULT DENTAL 230 [place], [place] [phone] Mariangel Ruff 230 [place], [place] [phone] documented as of this encounter Visit Diagnoses Diagnosis Rash Rash and other nonspecific skin eruption documented in this encounter Additional Health Concerns Assessment Noted Time PHQ-9 Depression Total Score: 12 023 1:58 PM EDT documented as of this encounter Care Teams C D Stripper Relationship Specialty Start Date End Date Umm Coley MD [address] [place], [place] [phone] PCP - General Family Medicine 10/31/16 West Meier, BEBA [address] [place] [address] Multi Site Leasing ConsultantSecond Cook And Baker 01/12/25 Eva Nunez Multi Site Leasing Consultant 04/05/24 07/06/24 [facility] 05/11/24 11/17/24 [facility] 11/14/24 documented as of this encounter
--- OUTSIDE RECORDS SUMMARY | 2025-01-17 13:58 | XMS_ITS | Encounter Summary ---
Author Organization [employer] Address [address] [place] [address] 7t [place] [address] Care Team Providers Care Enterprise Application Developer Name Role Phone Umm Coley MD Primary Care Provider + West Meier RN Unavailable [phone] Encounter Details Date Type Department Care Team ([facility] Contact Info) Description 03/05/2023 Orders Only [facility] MEDICINE [address] [place] [address] Umm Coley MD [address] [place] [address] [phone] Social History Tobacco Use Types Packs/Day Years [...] [facility] [address] [place] [address] [phone] Darrell Myers MD 230 [place] [address] 03/08/2025 10:00 AM EDT Office Visit [facility] ADULT DENTAL [address] [place] [address] Mariangel Ruff [address] [place] [address] documented as of this encounter Visit Diagnoses Not on filedocumented in this encounter Care Teams Enterprise Application Developer Relationship Specialty Start Date End Date Umm Coley MD 230 [place] [address] PCP - General Family Medicine 10/31/16 West Meier, BEBA 505 [place] [address] Chief Order DispatcherBatch And Furnace Manager 01/12/25 Eva Nunez Chief Order Dispatcher 04/05/24 07/06/24 [facility] 05/11/24 11/17/24 [facility] 11/14/24 documented as of this encounter
--- OUTSIDE RECORDS SUMMARY | 2025-01-17 13:58 | XMS_ITS | Encounter Summary ---
Author Organization [employer] Address [address] [facility] 7t [place] [address] Care Team Providers Care Electrician Second Name Role Phone Umm Coley MD Primary Care Provider + West Meier RN Unavailable [phone] Reason for Visit * Reason Onset Date Comments Appointment 03/17/2023 Encounter Details Date Type Department Care Team ([facility] st Contact Info) Description 03/17/2023 Telephone [facility] ADULT DENTAL [address] [place] [address] Johnny Gonzalez, WILIAN [address] [place], [place] [phone] Appointment Social History Tobacco Use Types Packs/Day [...] 2:00 PM EDT Office Visit [facility] MEDICINE [address] [place] [address] Darrell Myers MD [address] [place] [address] 03/08/2025 10:00 AM EDT Office Visit [facility] ADULT DENTAL [address] [place] [address] Elzbieta, Mariangel [address] [place] [address] documented as of this encounter Visit Diagnoses Not on filedocumented in this encounter Care Teams Electrician Second Relationship Specialty Start Date End Date Umm Coley MD [address] [place] [address] PCP - General Family Medicine 10/31/16 West Meier, BEBA [address] [place] [address] Microsoft ArchitectSecurity Solutions Engineer 01/12/25 Eva Nunez Microsoft Architect 04/05/24 07/06/24 [facility] 05/11/24 11/17/24 [facility] 11/14/24 documented as of this encounter
--- OUTSIDE RECORDS SUMMARY | 2025-01-17 13:58 | XMS_ITS | Encounter Summary ---
Author Organization [employer] [facility] Address 75 [facility] 7t [place] [address] Care Team Providers Care Audiovisual Technician Name Role Phone Umm Coley MD Primary Care Provider + West Meier RN Unavailable [phone] Reason for Visit * Reason Comments Med Refill Encounter Details Date Type Department Care Team ([facility] st Contact Info) Description 05/21/2023 Refill [facility] MEDICINE 230 [place], [place] [phone] Umm Coley MD 230 [place], [place] [phone] Arthritis of knee Social History Tobacco Use [...] 2:00 PM EDT Office Visit [facility] MEDICINE [address] [place] [address] Darrell Myers MD 230 [place] [address] 03/08/2025 10:00 AM EDT Office Visit [facility] ADULT DENTAL 230 [place] [address] Elzbieta, Mariangel [address] [place] [address] documented as of this encounter Visit Diagnoses Diagnosis Arthritis of knee Unspecified arthropathy, lower leg documented in this encounter Additional Health Concerns Assessment Noted Time PHQ-9 Depression Total Score: 12 023 1:58 PM EDT documented as of this encounter Care Teams Audiovisual Technician Relationship Specialty Start Date End Date Umm Coley MD 230 [place] [address] PCP - General Family Medicine 10/31/16 West Meier, BEBA [address] [place] [address] Esl ProfessorProcess Improvement Analyst 01/12/25 Eva Nunez Esl Professor 04/05/24 07/06/24 [facility] 05/11/24 11/17/24 [facility] 11/14/24 documented as of this encounter
--- OUTSIDE RECORDS SUMMARY | 2025-01-17 13:58 | XMS_ITS | Encounter Summary ---
Author Organization [employer] [facility] Address [address] [place] [address] 7t [place] [address] Care Team Providers Care Editorial Intern Name Role Phone Umm Coley MD Primary Care Provider + West Meier RN Unavailable [phone] Encounter Details Date Type Department Care Team (Latest Contact Info) Description 11/23/2020 Abstract [facility] CONVERSIONS Dental, Provider, DDS Social [...] 02/03/2025 2:00 PM EDT Office Visit [facility] MEDICINE [address] [place] [address] Darrell Myers MD [address] [place] [address] 03/08/2025 10:00 AM EDT Office Visit [facility] ADULT DENTAL [address] [place] [address] Mariangel Ruff [address] [place] [address] documented as of this encounter Visit Diagnoses Not on filedocumented in this encounter Care Teams Editorial Intern Relationship Specialty Start Date End Date Umm Coley MD [address] [place] [address] PCP - General Family Medicine 10/31/16 West Meier, RN [address] [place] [address] Glaze HandlerSalvage Repairer 01/12/25 Eva Nunez Glaze Handler 04/05/24 07/06/24 [facility] 05/11/24 11/17/24 [facility] 11/14/24 documented as of this encounter
--- OUTSIDE RECORDS SUMMARY | 2025-01-17 13:58 | XMS_ITS | Encounter Summary ---
Author Organization [employer] Address [address] [facility] 7t [place] [address] Care Team Providers Care Patient Relations Specialist Name Role Phone Umm Coley MD Primary Care Provider + West Meier RN Unavailable [phone] Reason for Visit * Reason Onset Date Comments pre med prior to dental treatment 08/23/2024 Encounter Details Date Type Department Care Team (Late st Contact Info) Description 08/23/2024 Telephone [facility] ADULT DENTAL [address] [place] [address] Johnny Gonzalez, DMD [address] [place] [address] pre med prior to dental treatment Social [...] is your housing situation today? I have slyvia hester 08/19/[address] you [...] also spoke with Nina in the front of house manager with a run through of what was happening with the patient and she stated she would also send something to provider for clarificationDR documented in this encounter Plan of Treatment Upcoming Encounters Date Type Department Care Team (Late st Contact Info) Description 02/03/2025 2:00 PM EDT Office Visit [facility] MEDICINE [address] [place] [address] [phone] Darrell Myers MD 230 [place] [address] 03/08/2025 10:00 AM EDT Office Visit [facility] ADULT DENTAL 230 [place] [address] Trino Ruffaris [address] [place] [address] documented as of this encounter Visit Diagnoses Not on filedocumented in this encounter Additional Health Concerns Assessment Noted Time PHQ-9 Depression Total Score: 10 024 9:17 AM EDT documented as of this encounter Care Teams Patient Relations Specialist Relationship Specialty Start Date End Date Umm Coley MD [address] [place] [address] PCP - General Family Medicine 10/31/16 West Meier, BEBA [address] [place] [address] Brick Off BearerAssessment Nurse 01/12/25 [facility] 05/11/24 11/17/24 [facility] 11/14/24 documented as of this encounter
--- OUTSIDE RECORDS SUMMARY | 2025-01-17 13:58 | XMS_ITS | Encounter Summary ---
Author Organization [employer] Address 75 [facility] 7t [place] [address] Care Team Providers Care Pre Planning Advisor Name Role Phone Umm Coley MD Primary Care Provider + Reason for Visit * Reason Onset Date Comments Care Management 12/28/2024 [id number] [id number] w Encounter Details Date Type Department Care Team ([facility] st Contact Info) Description 12/28/[address] [facility] MEDICINE 230 [place], [place] [phone] Umm Coley MD [address] [place], [place] [phone] Care Management ([id number]) Social History Tobacco Use Types Packs/Day [...] back pain, arthritis of knee. Specialists include [facility], [facility] derm, [facility] PT, [facility] vision, [facility] OT, [facility] dental, [facility] pulmonology, [facility] pain management, [facility] GI, [facility] neurology. ED visits within the last 12 months include [facility] 12/23, [facility] 02/28-03/02/24. Last appointment in PCP office on 12/27/24. No future appointment scheduled. documented in this encounter Plan of Treatment Upcoming Encounters Date Type Department Care Team (Late st Contact Info) Description 02/03/2025 2:00 PM EDT Office Visit [facility] MEDICINE [address] [place] [address] Darrell Myers MD [address] [place] [address] 03/08/2025 10:00 AM EDT Office Visit [facility] ADULT DENTAL [address] [place], [place] [phone] ElzbietaTrinoMariangel [address] [place] [address] documented as of this encounter Visit Diagnoses Not on filedocumented in this encounter Additional Health Concerns Assessment Noted Time PHQ-9 Depression Total Score: 10 024 9:17 AM EDT documented as of this encounter Care Teams Pre Planning Advisor Relationship Specialty Start Date End Date Umm Coley MD [address] [place] [address] PCP - General Family Medicine 10/31/16 [facility] 11/14/24 documented as of this encounter
--- OUTSIDE RECORDS SUMMARY | 2025-01-17 13:58 | XMS_ITS | Encounter Summary ---
Author Organization [employer] Address 75 [facility] 7t [place] [address] Care Team Providers Care Flaker Tender Name Role Phone Umm Coley MD Primary Care Provider + West Meier RN Unavailable [phone] Reason for Visit * Reason Onset Date Comments Appointment 06/15/2023 Encounter Details Date Type Department Care Team ([facility] st Contact Info) Description 06/15/2023 Telephone [facility] ADULT DENTAL 230 [place] [address] Johnny Gonzalez, DMD [address] [place], [place] [phone] Appointment Social History Tobacco Use Types Packs/Day [...] Description 02/03/2025 2:00 PM EDT Office Visit [facility] MEDICINE 230 [place] [address] Darrell Myers MD 230 [place] [address] 03/08/2025 10:00 AM EDT Office Visit [facility] ADULT DENTAL 230 [place] [address] Elzbieta, Mariangel 230 [place] [address] documented as of this encounter Visit Diagnoses Not on filedocumented in this encounter Additional Health Concerns Assessment Noted Time PHQ-9 Depression Total Score: 12 023 1:58 PM EDT documented as of this encounter Care Teams Flaker Tender Relationship Specialty Start Date End Date Umm Coley MD [address] [place] [address] PCP - General Family Medicine 10/31/16 West Meier, BEBA [address] [place] [address] Perlite GrinderClinical Quality Rn 01/12/25 Eva Nunez Perlite Grinder 04/05/24 07/06/24 [facility] 05/11/24 11/17/24 Mir Almonte 11/14/24 documented as of this encounter
== END 2025-01-17 12:55 | disposition home or self-care (01) ==
LOC: HO.HOS 11:26
DX: S52.501A Unspecified fracture of the lower end of right radius, initial encounter for closed fracture (principal)
CPT/HCPCS: 99024

== ENCOUNTER → 2025-01-17 11:28 | Outpatient (BNV) | payer MEDICAID, SELFPAY | PROVIDERS: Visit Provider Radiology Diagnostic Radiology | DX: S52.501D Unspecified fracture of the lower end of right radius, subsequent encounter for closed fracture with routine healing (principal); S52.201D Unspecified fracture of shaft of right ulna, subsequent encounter for closed fracture with routine healing | CPT/HCPCS: 73110 ==

== ENCOUNTER 2025-01-20 12:36 | Outpatient (AMB) | payer MEDICAID, SELFPAY ==
--- NOTE | 2025-01-20 12:53 | A.OFFVIS_ITS ---
Intake Visit Reasons: PO RT hand distal radius & CTR pain and swelling Intake Note: Diana is a 59 year old right hand dominant female who presents today post- operatively status post right distal radius fracture ORIF and right carpal tunnel release DOS: 01/02/[address] Cleveland. Patient reports her main complaint today is swelling at the fingers. Wildlife Refuge Specialist Required: Yes Wildlife Refuge Specialist Language: [employer] Manager Services: Wildlife Refuge Specialist Present Wildlife Refuge Specialist Name: AMY Jiménez/LENORE Allergies codeine [CODEINE] Allergy (Intermediate, Verified 01/20/25 12:55) DIZZY/NAUSEA, nausea/vomiting escitalopram [From LEXAPRO] Allergy (Intermediate, Verified 01/20/25 12:55) ? NAUSEA meperidine [MEPERIDINE] Allergy (Intermediate, Verified 01/20/25 12:55) NAUSEA morphine [MORPHINE] Allergy (Intermediate, Verified 01/20/25 12:55) PALPITATIONS, palpitation oxycodone [OXYCODONE] Allergy (Intermediate, Verified 01/20/25 12:55) PALPATATIONS, palpitations tramadol Allergy (Unknown, Verified 01/20/25 12:55) dizziness, nausea HPI HPI PO RT hand distal radius & CTR pain and swelling: Details: Diana is a 59 year old right hand dominant female who presents today post- operatively status post right distal radius fracture ORIF and right carpal tunnel release DOS: 01/02/[address] Cleveland. Patient reports her main complaint today is swelling at the fingers. Denies redness, numbness, pain in the wrist, or any other complaints or concerns at this time [facility] Medical History Primary osteoarthritis of right hand Migraine Right shoulder pain Rotator cuff tendinitis Arthritis of right shoulder region Right hand pain Breast cancer, right Status post radiation therapy Anemia Diarrhea Depression Somatization disorder Migraine equivalent syndrome Anxiety Periodontal disease Fibromyalgia Surgical History History of esophagogastroduodenoscopy (EGD) History of lumpectomy Hx of section Hx of shoulder surgery Hx of colonoscopy Family History Mother HTN (hypertension) Sister Breast cancer Bone cancer Colon polyps Sister Osteoporosis Hypercholesteremia Colon polyps Social History Household Members: None Housing: Apartment Are you a primary career specialist to a significant other at home: No Do you presently have visiting nurse or other home services: No Alcohol intake: never Patient Tobacco Use Status: Former Tobacco user Years Smoked: 3 service: No Current occupational status: disabled 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 Physical Exam Extrem Other: Cast on right wrist clean, dry, intact No evidence of surrounding erythema, ecchymosis No evidence of infection Patient is able to flex and extend the digits of the left foot without difficulty There is noted to be some mild edema of the digits of the right hand, but cast also does not appear to be too tight Compartments soft, nontender Distal sensation intact Capillary refill brisk Assessment & Plan Assessment & Plan (1) Fracture of right distal radius: Code(s): S52.501A - Unspecified fracture of the lower end of right radius, initial encounter for closed fracture Category: Medical Plan 1. Status post ORIF of right distal radius and carpal tunnel release DOS 01/02/2025 Patient appears to be recovering well postoperatively Patient was educated about the typical recovery course At this time, Patient is informed that I do not feel a need to remove her cast at this time Educated on proper cast care and precautions Patient was educated on conservative pain management measures, such as rest, ice, elevation, [id number] pain medication as needed Patient was amenable to this plan Patient will follow-up for previously scheduled for repeat assessment, sooner with any acute concerns Coding Level of Care Code Global (81607) Diagnoses Fracture of right distal radius S52.501A
--- OUTSIDE RECORDS SUMMARY | 2025-01-20 15:02 | XMS_ITS | Encounter Summary ---
Author Organization [employer] Address [address] [facility] 7t [place] [address] Care Team Providers Care Framing Mill Supervisor Name Role Phone Umm Coley MD Primary Care Provider + Reason for Visit * Reason Onset Date Comments Results 12/29/2024 Encounter Details Date Type Department Care Team ([facility] st Contact Info) Description 12/29/2024 Telephone [facility] MEDICINE [address] [place], [place] [phone] Umm Coley MD [address] [place], [place] [phone] Results Social History Tobacco Use Types Packs/Day [...] 8:33 AM EST TC placed to patient [phone] in regards to below message. Patient informed chest Xray and RibsXray returned WNL. Patient verbalized understanding. Patient to f/u PRN. * Telephone Encounter - Rossana Lawrence - 12/29/2024 8:14 AM EST TC from pt requesting call back regarding Results. Type of results: XRAY Chest Date when done: 12/27 Facility: [facility] documented in this encounter Plan of Treatment Upcoming Encounters Date Type Department Care Team (Late st Contact Info) Description 02/03/2025 2:00 PM EDT Office Visit [facility] MEDICINE [address] [place] [address] Darrell Myers MD [address] [place] [address] 03/08/2025 10:00 AM EDT Office Visit [facility] ADULT DENTAL [address] [place] [address] Mariangel Ruff [address] [place] [address] documented as of this encounter Visit Diagnoses Not on filedocumented in this encounter Additional Health Concerns Assessment Noted Time PHQ-9 Depression Total Score: 10 024 9:17 AM EDT documented as of this encounter Care Teams Framing Mill Supervisor Relationship Specialty Start Date End Date Umm Coley MD [address] [place] [address] PCP - General Family Medicine 10/31/16 [facility] 11/14/24 01/17/25 MRI Interventions 12/08/24 documented as of this encounter
--- OUTSIDE RECORDS SUMMARY | 2025-01-20 15:02 | XMS_ITS | Encounter Summary ---
Author Organization [employer] Address 75 [facility] 7t [place] [address] Care Team Providers Care Lime Kiln Tender Name Role Phone Umm Coley MD Primary Care Provider + Encounter Details Date Type Department Care Team (Late st Contact Info) Description 12/28/2024 Patient Outreach [facility] MEDICINE [address] [place], [place] [phone] Umm Coley MD [address] [place], [place] [phone] Social History Tobacco Use Types Packs/Day Years [...] Description 02/03/2025 2:00 PM EDT Office Visit [facility] MEDICINE [address] [place] [address] Darrell Myers MD 230 [place] [address] 03/08/2025 10:00 AM EDT Office Visit [facility] ADULT DENTAL [address] [place] [address] Elzbieta, Mariangel [address] [place] [address] documented as of this encounter Visit Diagnoses Not on filedocumented in this encounter Additional Health Concerns Assessment Noted Time PHQ-9 Depression Total Score: 10 024 9:17 AM EDT documented as of this encounter Care Teams Lime Kiln Tender Relationship Specialty Start Date End Date Umm Coley MD [address] [place] [address] PCP - General Family Medicine 10/31/16 Mir Al[facility]te 11/14/24 01/17/25 [employer] 12/08/24 documented as of this encounter
--- OUTSIDE RECORDS SUMMARY | 2025-01-20 15:02 | XMS_ITS | Encounter Summary ---
Author Organization [employer] Address 75 [facility] 7t [place] [address] Care Team Providers Care Certified Technician Specialist Name Role Phone Umm Coley MD Primary Care Provider + Encounter Details Date Type Department Care Team (Late st Contact Info) Description 12/28/2024 Telephone [facility] MEDICINE [address] [place], [place] [phone] Umm Coley MD [address] [place], [place] [phone] Social History Tobacco Use Types Packs/Day Years [...] 2:00 PM EDT Office Visit [facility] MEDICINE [address] [place] [address] Darrell Myers MD [address] [place] [address] 03/08/2025 10:00 AM EDT Office Visit [facility] ADULT DENTAL [address] [place] [address] Mariangel Ruff [address] [place] [address] documented as of this encounter Visit Diagnoses Not on filedocumented in this encounter Additional Health Concerns Assessment Noted Time PHQ-9 Depression Total Score: 10 024 9:17 AM EDT documented as of this encounter Care Teams Certified Technician Specialist Relationship Specialty Start Date End Date Umm Coley MD [address] [place] [address] PCP - General Family Medicine 10/31/16 [facility] 11/14/24 01/17/25 [employer] 12/08/24 documented as of this encounter
--- OUTSIDE RECORDS SUMMARY | 2025-01-20 15:02 | XMS_ITS | Encounter Summary ---
Author Organization [employer] Address 75 [facility] 7t [place] [address] Care Team Providers Care Freight Rate Clerk Name Role Phone Umm Coley MD Primary Care Provider + Reason for Visit * Reason Onset Date Comments Call Back Request 12/20/2024 Encounter Details Date Type Department Care Team ([facility] st Contact Info) Description 12/20/2024 Telephone [facility] MEDICINE [address] [place], [place] [phone] Umm Coley MD 230 [place], [place] [phone] Call Back Request Social History Tobacco Use [...] PM EST RN was informed by [facility] ([facility]) that they have changed the patients nurse to a female nurse. Patient's VNA will now be [facility]. * Telephone Encounter - Deyvi Bray RN - 12/21/2024 9:51 AM EST TC returned to patient (via [facility] towel sewer) no answer left voicemail to return call to clinic. * Telephone Encounter - Rossana Lawrence - 12/21/2024 9:32 AM EST Tc from pt requesting a call back regarding message below. Mohawk * Telephone Encounter - Umm Coley MD - 12/20/2024 4:24 PM EST Nurse field supervisor seed production note re meds appreciated. Agree with POC, [...] 3:28 PM EST Spoke to patient (with [facility] medical territory manager) regarding VNA nurse and meds (as discussed [...] of medications in sharps container ([facility] medical territory manager witnessed disposal). One pill was orange/red capsule [...] if we can switch them. RN called [facility] VNA spoke to director Zara [...] verbalized understanding and will return call to clinical data manager if she is able to find [...] reports she has a new VNA service ([facility]) which started on Thursday. Patient reports on Thursday it was two females who went to the patients chenoa and they put all the medications on [...] name and confirm he is employed by [facility]. Patient reports she is having a hard time trusting the VNAand that he is aware of what he is doing. TC placed to VNA Randy [phone] to discuss above situation. Randy VNA reports [...] to PCP who requested RN call Deyvi (clinical data manager) to speak to patient. RN called [...] a Nurse of PCP Contact pt at [phone] documented in this encounter Plan of Treatment Upcoming Encounters Date Type Department Care Team (Late st Contact Info) Description 02/03/2025 2:00 PM EDT Office Visit [facility] MEDICINE [address] [place] [address] Darrell Myers MD 230 [place] [address] 03/08/2025 10:00 AM EDT Office Visit [facility] ADULT DENTAL [address] [place] [address] Mariangel Ruff [address] [place] [address] documented as of this encounter Visit Diagnoses Not on filedocumented in this encounter Additional Health Concerns Assessment Noted Time PHQ-9 Depression Total Score: 10 024 9:17 AM EDT documented as of this encounter Care Teams Freight Rate Clerk Relationship Specialty Start Date End Date Umm Coley MD [address] [place] [address] PCP - General Family Medicine 10/31/16 [facility] 11/14/24 01/17/25 [employer] 12/08/24 documented as of this encounter
--- OUTSIDE RECORDS SUMMARY | 2025-01-20 15:02 | XMS_ITS | Encounter Summary ---
Author Organization [employer] [facility] Address [address] [facility] 7t [place] [address] Care Team Providers Care Performance Test Consultant Name Role Phone Umm Coley MD Primary Care Provider + [place] RN Unavailable Encounter Details Date Type Department Care Team ([facility] st Contact Info) Description 01/13/2025 Population Health Risk Score [facility] (C3) Department [address] [phone] Provider, Population Health Generic Social [...] 2:00 PM EDT Office Visit [facility] MEDICINE [address] [place] [address] Darrell Myers MD [address] [place] [address] 03/08/2025 10:00 AM EDT Office Visit [facility] ADULT DENTAL [address] [place] [address] Elzbieta, Mariangel [address] [place] [address] documented as of this encounter Visit Diagnoses Not on filedocumented in this encounter Additional Health Concerns Assessment Noted Time PHQ-9 Depression Total Score: 10 024 9:17 AM EDT documented as of this encounter Care Teams Performance Test Consultant Relationship Specialty Start Date End Date Umm Coley MD [address] [place] [address] PCP - General Family Medicine 10/31/16 [place], BEBA [address] [place] [address] Supervisor Dried YeastE Business Specialist 01/12/25 [facility] 11/14/24 01/17/25 [employer] 12/08/24 documented as of this encounter
--- OUTSIDE RECORDS SUMMARY | 2025-01-20 15:02 | XMS_ITS | Encounter Summary ---
Author Organization [employer] Address [address] [facility] 7t [place] [address] Care Team Providers Care Calibration Specialist Name Role Phone Umm Coley MD Primary Care Provider + [place] RN Unavailable [phone] Reason for Visit * Reason Onset Date Comments Care Management 01/12/2025 C3CM- Initial as sessment/enrollment Encounter Details Date Type Department Care Team ([facility] st Contact Info) Description 01/12/2025 Telephone [facility] MEDICINE [address] [place], [place] [phone] Umm Coley MD [address] [place], [place] [phone] Care Management (C3CM- Initial assessment/enrollment) Social History [...] were verified. AidaL. Myles is a 59-year-old Salvadorean speaking female with prior medical history of asthma, actinic keratoses, localized osteoarthritis of left knee, benign paroxysmal vertigo, PTSD, fibromyalgia, carpal tunnel syndrome, recurrent major depression in partial remission, osteopenia, neuropathy of both feet, migraine with aura, ductal carcinoma of right breast, generalized anxiety disorder, chronic lowback pain. Patient reports that she can read and write in Salvadorean and the last grade she completed was her associates. Patient reports that she is followed by the following specialists: psychiatrist,therapist, neurology, pulmonology, GI, orthopedics, actuarial technician, [facility] dental. Patient reports that she has an [...] she receives SSI. Patient reports that her HAZARD MITIGATION OFFICER brings herto her medical appointments. Patient uses [...] Tylenol PRN. Patient reports being followed by [facility]. Patient reports knowing howto contact her therapist and psychiatrist as needed and having crisis #. Patient denies any SI/HI. She speaks with a therapist 2 times a week and with a psychiatrist every 2-3 months. Patient reportsfeeling safe at home. Denies drinking, smoking or any illegal drugs. Patient receives HAZARD MITIGATION OFFICER and VNA services. Her HAZARD MITIGATION OFFICER is from [facility], patient reports that during the day she [...] understanding, and able to repeat back to conventional underwriter. A follow up call will be placed within 10 days, patient agrees with plan. documented in this encounter Plan of Treatment Upcoming Encounters Date Type Department Care Team (Late st Contact Info) Description 02/03/2025 2:00 PM EDT Office Visit [facility] MEDICINE [address] [place] [address] Darrell Myers MD [address] [place] [address] 03/08/2025 10:00 AM EDT Office Visit [facility] ADULT DENTAL [address] [place] [address] Elzbieta, Mariangel [address] [place] [address] documented as of this encounter Visit Diagnoses Not on filedocumented in this encounter Additional Health Concerns Assessment Noted Time PHQ-9 Depression Total Score: 10 024 9:17 AM EDT documented as of this encounter Care Teams Calibration Specialist Relationship Specialty Start Date End Date Umm Coley MD [address] [place] [address] PCP - General Family Medicine 10/31/16 West Meier RN [address] [place] [address] [employer] 01/12/25 Mir [facility] 11/14/24 01/17/25 [employer] 12/08/24 documented as of this encounter
--- OUTSIDE RECORDS SUMMARY | 2025-01-20 15:02 | XMS_ITS | Encounter Summary ---
Author Organization [employer] Address [address] [facility] 7t [place] [address] Care Team Providers Care Rn Transfer Name Role Phone Umm Coley MD Primary Care Provider + Reason for Visit * Reason Comments Care Coordination [facility] telephone call outreach Encounter Details Date Type Department Care Team (Latest Contact Info) Description 01/11/2025 Patient Outreach [facility] MEDICINE [address] [place] [address] Umm Coley MD [address] [place] [address] Care Coordination (C3 -BEATRIZ [place] telephone call [...] outbound call to patient introducing herself from [facility] CM Department, in regard to remind [...] Description 02/03/2025 2:00 PM EDT Office Visit [facility] MEDICINE [address] [place] [address] Darrell Myers MD [address] [place] [address] 03/08/2025 10:00 AM EDT Office Visit [facility] ADULT DENTAL [address] [place] [address] Mariangel Ruff [address] [place] [address] documented as of this encounter Visit Diagnoses Not on filedocumented in this encounter Additional Health Concerns Assessment Noted Time PHQ-9 Depression Total Score: 10 024 9:17 AM EDT documented as of this encounter Care Teams Rn Transfer Relationship Specialty Start Date End Date Umm Coley MD [address] [place] [address] PCP - General Family Medicine 10/31/16 [facility] 11/14/24 01/17/25 [employer] 12/08/24 documented as of this encounter
--- OUTSIDE RECORDS SUMMARY | 2025-01-20 15:02 | XMS_ITS | Encounter Summary ---
Author Organization [employer] Address [address] [facility] 7t [place] [address] Care Team Providers Care Plastic Cutter Name Role Phone Umm Coley MD Primary Care Provider + Reason for Visit * Reason Onset Date Comments Appointment Request 12/22/2024 Encounter Details Date Type Department Care Team ([facility] st Contact Info) Description 12/22/2024 Telephone [facility] MEDICINE 230 [place], [place] [phone] Umm Coley MD [address] [place], [place] [phone] Appointment Request Social History Tobacco Use Types [...] 10:27 AM EST TC returned to patient [phone] in regards to below message. Patient reports [...] AM EST Tc from pt returning call. Cameroonian * Telephone Encounter - Gisela Reynoso RN - 12/22/2024 8:36 AM EST TC placed to patient [phone] in regards to below message. Patient did [...] available to be scheduled. Contact pt at [phone] documented in this encounter Plan of Treatment Upcoming Encounters Date Type Department Care Team (Late st Contact Info) Description 02/03/2025 2:00 PM EDT Office Visit [facility] MEDICINE [address] [place] [address] Darrell Myers MD [address] [place] [address] 03/08/2025 10:00 AM EDT Office Visit [facility] ADULT DENTAL [address] [place] [address] Elzbieta, Mariangel [address] [place] [address] documented as of this encounter Visit Diagnoses Not on filedocumented in this encounter Additional Health Concerns Assessment Noted Time PHQ-9 Depression Total Score: 10 024 9:17 AM EDT documented as of this encounter Care Teams Plastic Cutter Relationship Specialty Start Date End Date Umm Coley MD [address] [place] [address] PCP - General Family Medicine 10/31/16 [facility] 11/14/24 01/17/25 [employer] 12/08/24 documented as of this encounter
--- OUTSIDE RECORDS SUMMARY | 2025-01-20 15:02 | XMS_ITS | Encounter Summary ---
Author Organization [employer] Address [address] [facility] 7t [place] [address] Care Team Providers Care Briefcase Sewer Name Role Phone Umm Coley MD Primary Care Provider + Reason for Visit * Reason Comments Care Coordination C3 [facility] chang telephone call outreach Encounter Details Date Type Department Care Team (Latest Contact Info) Description 12/28/2024 Patient Outreach [facility] MEDICINE [address] [place] [address] Umm Coley MD [address] [place] [address] Care Coordination (C3 -BEATRIZ [place] telephone call [...] outbound call to patient introducing herself from [facility] CM Department, in regards to offering services. Patient's name and was confirmed. Patient agrees toparticipate in program. Appt. for initial assessment scheduled for 01/12/25@ 10:00AM. CHW reinforceddirect contact information or for any additional questions or concerns and extended clinic hours on Mondays and Wednesdays, and Walk-In Urgent Care Located in [facility] of [facility]. Patient provided with after-hours line for [facility], , which offer night time triage service and option to transfer to refrigeration manager provider if needed. Patient verbalizes understanding, and able to repeat back to video games storywriter. documented in this encounter Plan of Treatment Upcoming Encounters Date Type Department Care Team (Late st Contact Info) Description 02/03/2025 2:00 PM EDT Office Visit [facility] MEDICINE [address] [place] [address] Darrell Myers MD [address] [place] [address] 03/08/2025 10:00 AM EDT Office Visit [facility] ADULT DENTAL [address] [place] [address] Mariangel Ruff [address] [place] [address] documented as of this encounter Visit Diagnoses Not on filedocumented in this encounter Additional Health Concerns Assessment Noted Time PHQ-9 Depression Total Score: 10 024 9:17 AM EDT documented as of this encounter Care Teams Briefcase Sewer Relationship Specialty Start Date End Date Umm Coley MD [address] [place] [address] PCP - General Family Medicine 10/31/16 [facility] 11/14/24 01/17/25 [employer] 12/08/24 documented as of this encounter
--- OUTSIDE RECORDS SUMMARY | 2025-01-20 15:02 | XMS_ITS | Encounter Summary ---
Author Organization [employer] Address [address] [facility] 7t [place] [address] Care Team Providers Care Test And Turn Up Technician Name Role Phone Umm Coley MD Primary Care Provider + [place] RN Unavailable [phone] Reason for Visit * Reason Onset Date Comments Care Management 01/16/2025 C3CM Encounter Details Date Type Department Care Team ([facility] st Contact Info) Description 01/16/2025 Telephone [facility] MEDICINE [address] [place], [place] [phone] Umm Coley MD [address] [place], [place] [phone] Care Management (C3CM) Social History Tobacco Use [...] state her appointment is tomorrow at [address] [facility] [address] [facility] [address] at 11:30 AM and that [...] Visit [facility] MEDICINE [address] [place] [address] Darrell Myers MD [address] [place] [address] 03/08/2025 10:00 AM EDT Office Visit [facility] ADULT DENTAL [address] [place] [address] Mariangel uRff [address] [place] [address] documented as of this encounter Visit Diagnoses Not on filedocumented in this encounter Additional Health Concerns Assessment Noted Time PHQ-9 Depression Total Score: 10 024 9:17 AM EDT documented as of this encounter Care Teams Test And Turn Up Technician Relationship Specialty Start Date End Date Umm Coley MD [address] [place] [address] PCP - General Family Medicine 10/31/16 West Meier, BEBA [address] [place] [address] Paper Production EngineerGovernment Services Professional 01/12/25 [facility] 11/14/24 01/17/25 [employer] 12/08/24 documented as of this encounter
--- OUTSIDE RECORDS SUMMARY | 2025-01-20 15:02 | XMS_ITS | Encounter Summary ---
Author Organization [employer] Address [address] [facility] [address] [place] [address] Care Team Providers Care Process Tech Name Role Phone Umm Coley MD Primary Care Provider + [place] RN Unavailable [phone] Reason for Visit * Reason Comments [facility] call outreach Encounter Details Date Type Department Care Team (Latest Contact Info) Description 01/13/2025 Patient Outreach [facility] MEDICINE [address] [place] [address] Umm Coley MD [address] [place] [address] Care Coordination ([facility] [place] telephone call outreach) Social History [...] answer at thistime. LVM introducing herself from [facility] CM Department. Requested call back. CHW reinforced direct contact information or CM for any additional questionsor concerns and extended clinic hours on Mondays and Wednesdays, and Walk-In Urgent Care Located inLobby of [facility]. Patient provided with after-hours line for [facility], , which offer night time triage service and option to transfer to it applications developer provider if needed. CHW will attempt another followup call within 10 days. documented in this encounter Plan of Treatment Upcoming Encounters Date Type Department Care Team (Late st Contact Info) Description 02/03/2025 2:00 PM EDT Office Visit [facility] MEDICINE [address] [place] [address] Darrell Myers MD [address] [place] [address] 03/08/2025 10:00 AM EDT Office Visit [facility] ADULT DENTAL [address] [place], [place] [phone] Mariangel Ruff [address] [place], [place] [phone] documented as of this encounter Visit Diagnoses Not on filedocumented in this encounter Additional Health Concerns Assessment Noted Time PHQ-9 Depression Total Score: 10 024 9:17 AM EDT documented as of this encounter Care Teams Process Tech Relationship Specialty Start Date End Date Umm Coley MD [address] [place], [place] [phone] PCP - General Family Medicine 10/31/16 [place], BEBA [address] [place] [address] Funeral Pre Arrangement CounselorMath Interventionist 01/12/25 [facility] 11/14/24 01/17/25 [employer] 12/08/24 documented as of this encounter
--- OUTSIDE RECORDS SUMMARY | 2025-01-20 15:02 | XMS_ITS | Encounter Summary ---
Author Organization [employer] Address [address] [facility] [address] [place] [address] Care Team Providers Care Laboratory Equipment Installer Name Role Phone Umm Coley MD Primary Care Provider + [place] RN Unavailable [phone] Reason for Visit * Reason Onset Date Comments appt 01/08/2024 Encounter Details Date Type Department Care Team ([facility] st Contact Info) Description 01/08/2024 Telephone [facility] ADULT DENTAL [address] [place] [address] Homer Strong, DMD [address] [place] [address] appt Social History Tobacco Use Types Packs/Day [...] Description 02/03/2025 2:00 PM EDT Office Visit [facility] MEDICINE [address] [place] [address] Darrell Myers MD [address] [place] [address] 03/08/2025 10:00 AM EDT Office Visit [facility] ADULT DENTAL [address] [place], [place] [phone] Mariangel Ruff [address] [place] [address] documented as of this encounter Visit Diagnoses Not on filedocumented in this encounter Additional Health Concerns Assessment Noted Time PHQ-9 Depression Total Score: 21 024 11:31 AM EST documented as of this encounter Care Teams Laboratory Equipment Installer Relationship Specialty Start Date End Date Umm Coley MD [address] [place] [address] PCP - General Family Medicine 10/31/16 [place], BEBA [address] [place] [address] College DeanPhysician Credentialing Specialist 01/12/25 Eva Nunez College Dean 04/05/24 07/06/24 [employer] [facility] 05/11/24 11/17/24 [facility] 11/14/24 01/17/25 [employer] 12/08/24 documented as of this encounter
--- OUTSIDE RECORDS SUMMARY | 2025-01-20 15:02 | XMS_ITS | Encounter Summary ---
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 Name Role Phone Umm Coley MD Primary Care Provider + Encounter Details Date Type Department Care Team (Late st Contact Info) Description 01/02/2025 Orders Only [facility] External Provider, [facility] Social History Tobacco Use Types Packs/Day [...] Visit [facility] MEDICINE [address] [place] [address] Darrell Myers MD [address] [place] [address] 03/08/2025 10:00 AM EDT Office Visit [facility] ADULT DENTAL [address] [place] [address] Trino Ruffaris [address] [place] [address] documented as of this encounter Procedures Procedure Name Priority Date/Time Associated Diagnosis Comments FL GUIDANCE IN OR Routine 01/02/2025 12: 09 PM EST documented in this encounter Results * FL Guidance in OR (01/02/2025 12:09 PM EST) Anatomical Region Laterality Modality X-Ray Angiograph y 01/02/2025 12:0 9 PM EST Narrative 01/03/2025 9:58 AM EST ? [facility] ?[address] ?[place] [address] ? Fluoroscopy Report ? Signed ? Patient: Myles,Diana L ?MR#: [id number] ?? 8 ? : 1965 ?Acct:[id number] ? Age/Sex: 59 / F ?ADM Date: 03/03/25 ? Loc: HO.SSS ? Attending Dr: Sydney Cleveland MD ? Ordering Physician: Sydney Cleveland MD ?? Date of Service: 01/02/25 ?? Procedure(s): FL guidance in OR ?? Accession Number(s): [id number] ? cc: Umm Coley MD; Sydney Cleveland [...] DD/ 1209 ? TD/TT: 01/02/25 1510 ? Rehabilitation Tech: MSM ? Procedure Note Chin Diana - 01/03/2025 [place] [id number] Fluoroscopy Report Signed Patient: Diana Myles LMR#: [id number] : 1965Acct:[id number] Age/Sex: 59 / FADM Date: 01/02/25 Loc: HO.SSS Attending Dr: Sydney lCeveland MD Ordering Physician: Sydney Cleveland MD Date of Service: 01/02/25 Procedure(s): FL guidance in OR Accession Number(s): [id number] cc: Umm Coley MD; Sydney Cleveland MD [...] by: Natanael Smith MD 01/03/2025 09:56 AM [facility] Dictated By: Natanael Smith MD Signed By: <Electronically signed by Natanael Smith MD in OV> 01/03/25 0956 DD/ 1209 TD/TT: 01/02/25 1510 Rehabilitation Tech: ANTONY [facility] External Provider IMG IR PROCEDURES Final Result documented in this encounter Visit Diagnoses Not on filedocumented in this encounter Additional Health Concerns Assessment Noted Time PHQ-9 Depression Total Score: 10 024 9:17 AM EDT documented as of this encounter Care Teams Aircraft Ordnance Systems Mechanic Relationship Specialty Start Date End Date Umm Coley MD [address] [place] [address] PCP - General Family Medicine 10/31/16 [facility] 11/14/24 01/17/25 [employer] 12/08/24 documented as of this encounter
--- OUTSIDE RECORDS SUMMARY | 2025-01-20 15:02 | XMS_ITS | Clinical Summary ---
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 Shalonda Coley MD [address] [place] [address] PCP - General Family Medicine 10/31/16 West Meier RN [address] [place] [address] Yard CoordinatorNurses' Aide 01/12/25 [employer] 12/08/24
--- OUTSIDE RECORDS SUMMARY | 2025-01-20 15:02 | XMS_ITS | Encounter Summary ---
Author Organization [employer] Address 75 [facility] 7t [place] [address] Care Team Providers Care Photographic Engineer Name Role Phone Umm Coley MD Primary Care Provider + Reason for Visit * Reason Onset Date Comments Medication List 12/28/2024 Encounter Details Date Type Department Care Team ([facility] st Contact Info) Description 12/28/2024 Telephone [facility] MEDICINE [address] [place], [place] [phone] Umm Coley MD 230 [place], [place] [phone] Medication List Social History Tobacco Use Types [...] currently have is the one from [facility] (our office). RN was informed the [...] Office Visit [facility] MEDICINE [address] [place], [place] [phone] Darrell Myers MD 230 [place] [address] 03/08/2025 10:00 AM EDT Office Visit [facility] ADULT DENTAL [address] [place] [address] Mariangel Ruff [address] [place] [address] documented as of this encounter Visit Diagnoses Not on filedocumented in this encounter Additional Health Concerns Assessment Noted Time PHQ-9 Depression Total Score: 10 024 9:17 AM EDT documented as of this encounter Care Teams Photographic Engineer Relationship Specialty Start Date End Date Umm Coley MD 230 [place] [address] PCP - General Family Medicine 10/31/16 [facility] 11/14/24 01/17/25 Salonmeister 12/08/24 documented as of this encounter
--- OUTSIDE RECORDS SUMMARY | 2025-01-20 15:03 | XMS_ITS | Encounter Summary ---
Author Organization [employer] Address 75 [facility] 7t [place] [address] Care Team Providers Care Corporate Administrative Assistant Name Role Phone Umm Coley MD Primary Care Provider + West Meier RN Unavailable [phone] Encounter Details Date Type Department Care Team (Late st Contact Info) Description 11/03/2022 Orders Only [facility] [address] [place], [place] [phone] Umm Coley MD 230 [place], [place] [phone] Osteopenia after menopause (Primary Dx) Social History [...] PM EDT Office Visit [facility] [address] [place], [place] [phone] Darrell Myers MD 230 [place], [place] [phone] 03/08/2025 10:00 AM EDT [facility] Visit [facility]ULT [facility] [address] [place], [place] [phone] Elzbieta, Mariangel [address] [place], [place] [phone] Scheduled Orders Name Type Priority Associated Diagnoses Orde r Schedule Vitamin D, 25-Hydroxy, Total, Immunoassay Lab Routine Osteopenia after menopause Expected: 11/03/2022 (Approximate), Expires: 11/03/2023 PTH, Intact (ICMA) And Ionized Calcium Lab Routine Osteopenia after menopause Expected: 11/03/2022 (Approximate), Expires: 11/03/2023 documented as of this encounter Visit Diagnoses Diagnosis Osteopenia after menopause- Primary documented in this encounter Care Teams Corporate Administrative Assistant Relationship Specialty Start Date End Date Umm Coley MD [address] [place] [address] PCP - General Family Medicine 10/31/16 West Meier, RN [address] [place] [address] Dry Cleaner HelperHuman Resources Officer 01/12/25 Eva Nunez Dry Cleaner Helper 04/05/24 07/06/24 [facility] 05/11/24 11/17/24 [facility] 11/14/24 01/17/25 [employer] 12/08/24 documented as of this encounter
--- OUTSIDE RECORDS SUMMARY | 2025-01-20 15:03 | XMS_ITS | Encounter Summary ---
Author Organization [employer] [facility] Address [address] [place] [address] 7t [place] [address] Care Team Providers Care Detective Automobile Section Name Role Phone Umm Coley MD Primary Care Provider + West Meier RN Unavailable [phone] Reason for Visit * Reason Comments Med Refill Encounter Details Date Type Department Care Team (Late Contact Info) Description 06/10/2023 Refill [facility] MEDICINE 230 [place] [address] Yenny Morris MD [address] [place], [place] [phone] Rash Social History Tobacco Use Types Packs/Day [...] Encounters Date Type Department Care Team ([facility] Contact Info) Description 02/03/2025 2:00 PM EDT Office Visit [facility] MEDICINE [address] [place], [place] [phone] Darrell Myers MD [address] [place], [place] [phone] 03/08/2025 10:00 AM EDT Office Visit [facility] ADULT DENTAL [address] [place], [place] [phone] Mariangel Ruff [address] [place], [place] [phone] documented as of this encounter Visit Diagnoses Diagnosis Rash Rash and other nonspecific skin eruption documented in this encounter Additional Health Concerns Assessment Noted Time PHQ-9 Depression Total Score: 12 023 1:58 PM EDT documented as of this encounter Care Teams Detective Automobile Section Relationship Specialty Start Date End Date Umm Coley MD [address] [place], [place] [phone] PCP - General Family Medicine 10/31/16 West Meier, BEBA [address] [place] [address] Client PartnerClimatology Teacher 01/12/25 Eva Nunez Client Partner 04/05/24 07/06/24 [facility] 05/11/24 11/17/24 [facility] 11/14/24 01/17/25 [employer] 12/08/24 documented as of this encounter
--- OUTSIDE RECORDS SUMMARY | 2025-01-20 15:03 | XMS_ITS | Encounter Summary ---
Author Organization [employer] [facility] Address [address] [place] [address] 7t [place] [address] Care Team Providers Care Automotive Electrical Helper Name Role Phone Umm Coley MD Primary Care Provider + Reason for Referral * Consultation (Routine) - Closed Specialty Diagnoses / Procedures Referred By Contkassie t Referred To Contact Case Management Diagnoses Encounter for monitoring of patient compliance in drug treatment program Umm Coley MD [address] [place] [address] Phone: tel: fax: Referral ID Status Reason Start Date Expiration Date V isits Requested Visits Authorized [id number] Closed Specialty Services Required 12/27/2024 12/27/2025 1 1 Reason for Visit * Reason Comments Weakness, Gen Encounter Details Date Type Department Care Team (Late st Contact Info) Description 12/27/2024 1:00 PM EST Office Visit [facility] MEDICINE [address] [place], [place] [phone] Umm Coley MD [address] [place], [place] [phone] Encounter for monitoring of patient compliance in [...] not addressed this issue to anyone at [facility]. Acute Concerns: She complains of pleuritic [...] regarding medication management by current VNA services ([facility]). I asked her if she wants me to cancel the services and try to find a new one, but she declined. I suggested her to reach out to [facility] supervisors and verify credential information and address issues that she has with current medication management. I will ask our care managers to reach out to her to assist her with this issue and try to stabilizeher on a VNA service. Will ask [facility] service to send a list of [...] VIA ORAL TODOS LOS MORIN EN LA OMAHAANA CUANDO SEA NECESARIO FOR ALLERGIES 90 tablet [...] regarding medication management by current VNA services ([facility]). I asked her if she [...] Description 02/03/2025 2:00 PM EDT Office Visit [facility] MEDICINE [address] [place] [address] Darrell Myers MD [address] [place] [address] 03/08/2025 10:00 AM EDT Office Visit [facility] ADULT DENTAL [address] [place] [address] ElzbietaMariangel 230 [place] [address] Scheduled Referrals Name Type Priority Associated Diagnoses [...] PM EST Narrative 12/27/2024 2:35 PM EST ?[facility] ?[address] ?[place] [address] ?XRay Report ? Signed ? Patient: Myles,Diana L ?MR#: [id number] ?? 8 ? : 1965 ?Acct:[id number] ? Age/Sex: 59 / F ?ADM Date: 02/25/25 ? Loc: HO.HHCX ? Attending Dr: Umm Coley MD ? Ordering Physician: Umm Coley MD ?? Date of Service: 12/27/24 ?? Procedure(s): XR ribs RT 2V ?? Accession Number(s): [id number] ? cc: Umm Coley MD ? EXAMINATION: [...] DD/ 1356 ? TD/TT: 12/27/24 1424 ? Recreational Facilities Motel Manager: ? Procedure Note Adalgisa, Chin - 12/27/[address] [address] XRay Report Signed Patient: Diana Myles LMR#: [id number] 8 : 1965Acct:[id number] Age/Sex: 59 / FADM Date: 12/27/24 Loc: HO.HHCX Attending Dr: Umm Coley MD Ordering Physician: Umm Coley MD Date of Service: 12/27/24 Procedure(s): XR ribs RT 2V Accession Number(s): [id number] cc: Umm Coley MD EXAMINATION: XR CHEST [...] 12/27/24 1433 DD/ 1356 TD/TT: 12/27/24 1424 Recreational Facilities Motel Manager: us Umm Coley MD IMG XR PROCEDURES Final Result * XR Chest 2 Views (12/27/2024 1:56 PM EST) Anatomical Region Laterality Modality Chest Radiographic Kyleigh ging 12/27/2024 1:56 PM EST Narrative 12/27/2024 2:36 PM EST ?[facility] ?[address] ?[place] [address] ?XRay Report ? Signed ? Patient: Myles,Diana L ?MR#: [id number] ?? 8 ? : 1965 ?Acct:[id number] ? Age/Sex: 59 / F ?ADM Date: 02/25/25 ? Loc: HO.HHCX ? Attending Dr: Umm Coley MD ? Ordering Physician: Umm Coley MD ?? Date of Service: 12/27/24 ?? Procedure(s): XR chest 2V ?? Accession Number(s): [id number] ? cc: Umm Coley MD ? EXAMINATION: [...] DD/ 1356 ? TD/TT: 12/27/24 1424 ? Recreational Facilities Motel Manager: ? Procedure Note Chin Diana - 12/27/[address] [address] XRay Report Signed Patient: Diana Myles LMR#: [id number] 8 : 1965Acct:[id number] Age/Sex: 59 / FADM Date: 12/27/24 Loc: HO.HHCX Attending Dr: Umm Coley MD Ordering Physician: Umm Coley MD Date of Service: 12/27/24 Procedure(s): XR chest 2V Accession Number(s): [id number] cc: Umm Coley MD EXAMINATION: XR CHEST [...] 12/27/24 1433 DD/ 1356 TD/TT: 12/27/24 1424 Recreational Facilities Motel Manager: us Umm Coley MD IMG XR PROCEDURES Final Result documented in this encounter Visit Diagnoses Diagnosis Encounter for monitoring of patient compliance in drug treatment program- Primary Intercostal pain documented in this encounter Additional Health Concerns Assessment Noted Time PHQ-9 Depression Total Score: 10 024 9:17 AM EDT documented as of this encounter Care Teams Automotive Electrical Helper Relationship Specialty Start Date End Date Umm Coley MD [address] [place] [address] PCP - General Family Medicine 10/31/16 [facility] 11/14/24 01/17/25 51wan 12/08/24 documented as of this encounter
--- OUTSIDE RECORDS SUMMARY | 2025-01-20 15:03 | XMS_ITS | Encounter Summary ---
Author Organization [employer] [facility] Address [address] [place] [address] 7t [place] [address] Care Team Providers Care Printing Supervisor Name Role Phone Umm Coley MD Primary Care Provider + West Meier RN Unavailable [phone] Encounter Details Date Type Department Care Team (Latest Contact Info) Description 09/16/2022 Abstract [facility] CONVERSIONS Dental, Provider, DDS Social History [...] Visit [facility] MEDICINE 230 [place] [address] Darrell Myers MD 230 [place] [address] 03/08/2025 10:00 AM EDT Office Visit [facility] ADULT DENTAL [address] [place] [address] Mariangel Ruff [address] [place] [address] documented as of this encounter Visit Diagnoses Not on filedocumented in this encounter Care Teams Printing Supervisor Relationship Specialty Start Date End Date Umm Coley MD [address] [place] [address] PCP - General Family Medicine 10/31/16 West Meier, BEBA [address] [place] [address] Research DietitianNuclear Medicine Supervisor 01/12/25 Eva Nunez Research Dietitian 04/05/24 07/06/24 [facility] 05/11/24 11/17/24 [facility] 11/14/24 01/17/25 [employer] 12/08/24 documented as of this encounter
--- OUTSIDE RECORDS SUMMARY | 2025-01-20 15:03 | XMS_ITS | Encounter Summary ---
Author Organization [employer] Address 75 [facility] 7t [place] [address] Care Team Providers Care Tobacco Prizer Name Role Phone Umm Coley MD Primary [...] 2:00 PM EDT Office Visit [facility] MEDICINE [address] [place] [address] Darrell Myers MD 230 [place] [address] 03/08/2025 10:00 AM EDT Office Visit [facility] ADULT DENTAL [address] [place] [address] Elzbieta, Mariangel [address] [place] [address] documented as of this encounter Visit Diagnoses Not on filedocumented in this encounter Additional Health Concerns Assessment Noted Time PHQ-9 Depression Total Score: 10 024 9:17 AM EDT documented as of this encounter Care Teams Tobacco Prizer Relationship Specialty Start Date End Date Umm Coley MD [address] [place] [address] PCP - General Family Medicine 10/31/16 [facility] 11/14/24 01/17/25 [employer] 12/08/24 documented as of this encounter
--- OUTSIDE RECORDS SUMMARY | 2025-01-20 15:03 | XMS_ITS | Encounter Summary ---
Author Organization [email or web address] Address 75 [facility] 7t [place] [address] Care Team Providers Care Yardage Control Operator Name Role Phone Umm Coley MD Primary Care Provider + West Meier RN Unavailable [phone] Reason for Visit * Reason Comments Med Change Request Encounter Details Date Type Department Care Team ([facility] Contact Info) Description 03/20/2023 Refill [facility] ADULT DENTAL [address] [place] [address] Johnny Gonzalez, WILIAN [address] [place] [address] Social History Tobacco Use Types Packs/Day Years [...] PM EDT Office Visit [facility] MEDICINE [address] [place] [address] Darrell Myers MD [address] [place] [address] 03/08/2025 10:00 AM EDT Office Visit [facility] ADULT DENTAL [address] [place], [place] [phone] Elzbieta, Mariangel [address] [place] [address] documented as of this encounter Visit Diagnoses Not on filedocumented in this encounter Care Teams Yardage Control Operator Relationship Specialty Start Date End Date Umm Coley MD [address] [place] [address] PCP - General Family Medicine 10/31/16 West Meier RN [address] [place] [address] Perfect Binder SetterSenior Business Process Analyst 01/12/25 Eva Nunez Perfect Binder Setter 04/05/24 07/06/24 [facility] 05/11/24 11/17/24 [facility] 11/14/24 01/17/25 Av[employer] 12/08/24 documented as of this encounter
--- OUTSIDE RECORDS SUMMARY | 2025-01-20 15:03 | XMS_ITS | Encounter Summary ---
Author Organization [employer] Address 75 [facility] 7t [place] [address] Care Team Providers Care Special Needs Babysitter Name Role Phone Umm Coley MD Primary Care Provider + West Meier RN Unavailable [phone] Reason for Visit * Reason Onset Date Comments Appointment 02/24/2023 Encounter Details Date Type Department Care Team ([facility] st Contact Info) Description 02/24/2023 Telephone [facility] ADULT DENTAL 230 [place] [address] Johnny Gonzalez, WILIAN [address] [place] [address] Appointment Social History Tobacco Use Types Packs/Day [...] Visit [facility] MEDICINE 230 [place] [address] Darrell Myers MD [address] [place] [address] 03/08/2025 10:00 AM EDT Office Visit [facility] ADULT DENTAL [address] [place] [address] Mariangel Ruff [address] [place] [address] documented as of this encounter Visit Diagnoses Not on filedocumented in this encounter Care Teams Special Needs Babysitter Relationship Specialty Start Date End Date Umm Coley MD 230 [place] [address] PCP - General Family Medicine 10/31/16 West Meier, BEBA [address] [place] [address] Whizzer HandReligious Activities Director 01/12/25 Eva Nunez Whizzer Hand 04/05/24 07/06/24 [facility] 05/11/24 11/17/24 [facility] 11/14/24 01/17/25 V[employer]y 12/08/24 documented as of this encounter
--- OUTSIDE RECORDS SUMMARY | 2025-01-20 15:03 | XMS_ITS | Encounter Summary ---
Author Organization [employer] Address 75 [facility] 7t [place] [address] Care Team Providers Care Vegetable I Farmworker Name Role Phone Umm Coley MD Primary Care Provider + West Meier RN Unavailable [phone] Encounter Details Date Type Department Care Team ([facility] st Contact Info) Description 08/23/2024 Orders Only [facility] ADULT DENTAL [address] [place], [place] [phone] Johnny Gonzalez, DMD [address] [place] [address] Social History Tobacco Use Types Packs/Day Years [...] Office Visit [facility] MEDICINE [address] [place] [address] Darrell Myers MD 230 [place] [address] 03/08/2025 10:00 AM EDT Office Visit [facility] ADULT DENTAL [address] [place] [address] Elzbieta, Mariangel [address] [place] [address] documented as of this encounter Visit Diagnoses Not on filedocumented in this encounter Additional Health Concerns Assessment Noted Time PHQ-9 Depression Total Score: 10 024 9:17 AM EDT documented as of this encounter Care Teams Vegetable I Farmworker Relationship Specialty Start Date End Date Umm Coley MD [address] [place] [address] PCP - General Family Medicine 10/31/16 West Meier, BEBA [address] [place] [address] Greenhouse SuperintendentScience Editor 01/12/25 [facility] 05/11/24 11/17/24 Mir Almonte 11/14/24 01/17/25 [employer] 12/08/24 documented as of this encounter
--- OUTSIDE RECORDS SUMMARY | 2025-01-20 15:03 | XMS_ITS | Encounter Summary ---
Author Organization [employer] Address 75 [facility] 7t [place] [address] Care Team Providers Care Associate Faculty Name Role Phone Umm Coley MD Primary Care Provider + West Meier RN Unavailable [phone] Reason for Visit * Reason Onset Date Comments Appointment 06/15/2023 Encounter Details Date Type Department Care Team ([facility] st Contact Info) Description 06/15/2023 Telephone [facility] ADULT DENTAL 230 [place] [address] Johnny Gonzalez, DMD [address] [place], [place] [phone] Appointment Social History Tobacco Use Types Packs/Day [...] 2:00 PM EDT Office Visit [facility] MEDICINE 230 [place] [address] Darrell Myers MD 230 [place] [address] 03/08/2025 10:00 AM EDT Office Visit [facility] ADULT DENTAL 230 [place] [address] Elzbieta, Mariangel [address] [place] [address] documented as of this encounter Visit Diagnoses Not on filedocumented in this encounter Additional Health Concerns Assessment Noted Time PHQ-9 Depression Total Score: 12 023 1:58 PM EDT documented as of this encounter Care Teams Associate Faculty Relationship Specialty Start Date End Date Umm Coley MD 230 [place] [address] PCP - General Family Medicine 10/31/16 West Meier, BEBA [address] [place] [address] Diesel Truck DriverRegional Coordinator 01/12/25 Eva Nunez Diesel Truck Driver 04/05/24 07/06/24 [facility] 05/11/24 11/17/24 Mir Almonte 11/14/24 01/17/25 RedT 12/08/24 documented as of this encounter
--- OUTSIDE RECORDS SUMMARY | 2025-01-20 15:03 | XMS_ITS | Encounter Summary ---
Author Organization [employer] Address 75 [facility] 7t [place] [address] Care Team Providers Care College Archivist Name Role Phone Umm Coley MD Primary Care Provider + Reason for Visit * Reason Onset Date Comments ED f/u call 12/26/2024 Encounter Details Date Type Department Care Team ([facility] st Contact Info) Description 12/26/2024 Telephone [facility] MEDICINE 230 [place], [place] [phone] Umm Coley MD 230 [place], [place] [phone] ED f/u call Social History Tobacco Use [...] Patient reports she is scheduled to see [facility]o on 12/28 at 10:15am ([facility] Patient is scheduled to see PCP [...] AM EST Noted. TC placed to patient [phone] in regards to below message. Patient did [...] EDT Office Visit [facility] MEDICINE 230 [place] [address] Darrell Myers MD 230 [place] [address] 03/08/2025 10:00 AM EDT Office Visit [facility] ADULT DENTAL 230 [place] [address] Elzbieta, Mariangel 230 [place] [address] documented as of this encounter Visit Diagnoses Not on filedocumented in this encounter Additional Health Concerns Assessment Noted Time PHQ-9 Depression Total Score: 10 024 9:17 AM EDT documented as of this encounter Care Teams College Archivist Relationship Specialty Start Date End Date Umm Coley MD 230 [place] [address] PCP - General Family Medicine 10/31/16 [facility] 11/14/24 01/17/25 [employer] 12/08/24 documented as of this encounter
--- OUTSIDE RECORDS SUMMARY | 2025-01-20 15:03 | XMS_ITS | Encounter Summary ---
Author Organization [employer] Address [address] [place] [address] 7t [place] [address] Care Team Providers Care Weed Controller Name Role Phone Umm Coley MD Primary Care Provider + West Meier RN Unavailable [phone] Encounter Details Date Type Department Care Team ([facility] Contact Info) Description 03/05/2023 Orders Only [facility] MEDICINE [address] [place] [address] Umm Coley MD [address] [place] [address] [phone] Social History Tobacco Use Types Packs/Day Years [...] EDT Office Visit [facility] MED[facility]INE [address] [place] [address] [phone] Darrell Myers MD 230 [place] [address] 03/08/2025 10:00 AM EDT Office Visit [facility] ADULT DENTAL 230 [place] [address] Mariangel Ruff [address] [place] [address] documented as of this encounter Visit Diagnoses Not on filedocumented in this encounter Care Teams Weed Controller Relationship Specialty Start Date End Date Umm Coley MD 230 [place] [address] PCP - General Family Medicine 10/31/16 West Meier, BEBA 505 [place] [address] Broom ManMonument Setter 01/12/25 Eva Nunez Broom Man 04/05/24 07/06/24 [facility] 05/11/24 11/17/24 [facility] 11/14/24 01/17/25 [employer] 12/08/24 documented as of this encounter
--- OUTSIDE RECORDS SUMMARY | 2025-01-20 15:03 | XMS_ITS | Encounter Summary ---
Author Organization [employer] Address 75 [facility] 7t [place] [address] Care Team Providers Care Roll Wrapper Name Role Phone Umm Coley MD Primary Care Provider + Reason for Visit * Reason Onset Date Comments Nurse Triage 01/06/2025 Encounter Details Date Type Department Care Team ([facility] st Contact Info) Description 01/06/2025 Telephone [facility] MEDICINE 230 [place], [place] [phone] Umm Coley MD 230 [place], [place] [phone] Nurse Triage Social History Tobacco Use Types [...] pt to triage, spoke to pt. through [employer]. pt requesting post op appt for [...] become worse * Telephone Encounter - Rossana Larwence - 01/06/2025 8:43 AM EST Symptom: Hand or Wrist Pain - Not From Injury (surgery january 02) Outcome: Schedule an appointment to be seen within 24 hours Reason: Caller denied all higher acuity questions The caller accepted this outcome. [phone] documented in this encounter Plan of Treatment Upcoming Encounters Date Type Department Care Team (Late st Contact Info) Description 02/03/2025 2:00 PM EDT Office Visit [facility] MEDICINE [address] [place] [address] Darrell Myers MD 230 [place] [address] 03/08/2025 10:00 AM EDT Office Visit [facility] ADULT DENTAL [address] [place], [place] [phone] Mariangel Ruff 230 [place] [address] documented as of this encounter Visit Diagnoses Not on filedocumented in this encounter Additional Health Concerns Assessment Noted Time PHQ-9 Depression Total Score: 10 024 9:17 AM EDT documented as of this encounter Care Teams Roll Wrapper Relationship Specialty Start Date End Date Umm Coley MD [address] [place] [address] [phone] PCP - General Family Medicine 10/31/16 [facility] 11/14/24 01/17/25 Laser View 12/08/24 documented as of this encounter
--- OUTSIDE RECORDS SUMMARY | 2025-01-20 15:03 | XMS_ITS | Encounter Summary ---
Author Organization [employer] Address 75 [facility] 7t [place] [address] Care Team Providers Care Axminster Rug Setter Name Role Phone Umm Coley MD Primary Care Provider + West Meier RN Unavailable [phone] Reason for Visit * Reason Onset Date Comments Appointment 03/17/2023 Encounter Details Date Type Department Care Team ([facility] st Contact Info) Description 03/17/2023 Telephone [facility] ADULT DENTAL 230 [place] [address] Johnny Gonzalez, WILIAN [address] [place], [place] [phone] Appointment Social History Tobacco Use Types Packs/Day [...] Office Visit [facility] MEDICINE 230 [place] [address] Darrell Myers MD 230 [place] [address] 03/08/2025 10:00 AM EDT Office Visit [facility] ADULT DENTAL [address] [place] [address] Elzbieta, Mariangel 230 [place] [address] documented as of this encounter Visit Diagnoses Not on filedocumented in this encounter Care Teams Axminster Rug Setter Relationship Specialty Start Date End Date Umm Coley MD 230 [place] [address] PCP - General Family Medicine 10/31/16 West Meier, BEBA 505 [place] [address] Vp SalesCloth Handler 01/12/25 Eva Nunez Vp Sales 04/05/24 07/06/24 [facility] 05/11/24 11/17/24 [facility] 11/14/24 01/17/25 [employer] 12/08/24 documented as of this encounter
--- OUTSIDE RECORDS SUMMARY | 2025-01-20 15:03 | XMS_ITS | Encounter Summary ---
Author Organization [employer] Address 75 [facility] 7t [place] [address] Care Team Providers Care Head Men'S Tennis Coach Name Role Phone Umm Coley MD Primary Care Provider + West Meier RN Unavailable [phone] Reason for Visit * Reason Onset Date Comments pre med prior to dental treatment 08/23/2024 Encounter Details Date Type Department Care Team (Late st Contact Info) Description 08/23/2024 Telephone [facility] ADULT DENTAL [address] [place] [address] Johnny Gonzalez, DMD [address] [place] [address] pre med prior to dental treatment Social [...] also spoke with Nina in the front desk host with a run through of what was happening with the patient and she stated she would also send something to provider for clarificationDR documented in this encounter Plan of Treatment Upcoming Encounters Date Type Department Care Team (Late st Contact Info) Description 02/03/2025 2:00 PM EDT Office Visit [facility] MEDICINE [address] [place] [address] [phone] Darrell Myers MD 230 [place] [address] 03/08/2025 10:00 AM EDT Office Visit [facility] ADULT DENTAL 230 [place], [place] [phone] Trino Ruffaris 230 [place] [address] documented as of this encounter Visit Diagnoses Not on filedocumented in this encounter Additional Health Concerns Assessment Noted Time PHQ-9 Depression Total Score: 10 024 9:17 AM EDT documented as of this encounter Care Teams Head Men'S Tennis Coach Relationship Specialty Start Date End Date Umm Coley MD [address] [place] [address] PCP - General Family Medicine 10/31/16 West Meier, BEBA [address] [place] [address] Director Of Financial AidParaffin Machine Operator 01/12/25 [facility] 05/11/24 11/17/24 [facility] 11/14/24 01/17/25 [employer] 12/08/24 documented as of this encounter
--- OUTSIDE RECORDS SUMMARY | 2025-01-20 15:03 | XMS_ITS | Encounter Summary ---
Author Organization [employer] Address 75 [facility] 7t [place] [address] Care Team Providers Care Laser Set Up Operator Name Role Phone Umm Coley MD Primary Care Provider + Reason for Visit * Reason Onset Date Comments Care Management 12/28/2024 [id number] revie w Encounter Details Date Type Department Care Team ([facility] st Contact Info) Description 12/28/2024 Telephone [facility] MEDICINE 230 [place], [place] [phone] Umm Coley MD 230 [place], [place] [phone] Care Management ([id number] review) Social History Tobacco Use Types Packs/Day [...] back pain, arthritis of knee. Specialists include [facility], [facility] derm, [facility] PT, [facility] vision, [facility], [facility] dental, [facility] pulmonology, [facility] pain management, [facility] GI, [facility] neurology. ED visits within the last 12 months include [facility] 12/23, [facility] 02/28-03/02/24. Last appointment in PCP office on 12/27/24. No future appointment scheduled. documented in this encounter Plan of Treatment Upcoming Encounters Date Type Department Care Team (Late st Contact Info) Description 02/03/2025 2:00 PM EDT Office Visit [facility] MEDICINE 230 [place] [address] Darrell Myers MD 230 [place] [address] 03/08/2025 10:00 AM EDT Office Visit [facility] ADULT DENTAL 230 [place], [place] [phone] Elzbieta, Mariangel 230 [place] [address] documented as of this encounter Visit Diagnoses Not on filedocumented in this encounter Additional Health Concerns Assessment Noted Time PHQ-9 Depression Total Score: 10 024 9:17 AM EDT documented as of this encounter Care Teams Laser Set Up Operator Relationship Specialty Start Date End Date Umm Coley MD [address] [place] [address] PCP - General Family Medicine 10/31/16 [facility] 11/14/24 01/17/25 [employer] 12/08/24 documented as of this encounter
--- OUTSIDE RECORDS SUMMARY | 2025-01-20 15:03 | XMS_ITS | Encounter Summary ---
Author Organization [employer] Address 75 [facility] 7t [place] [address] Care Team Providers Care Piecer Name Role Phone Umm Colye MD Primary Care Provider + West Meier RN Unavailable [phone] Reason for Visit * Reason Comments Med Change Request Encounter Details Date Type Department Care Team ([facility] Contact Info) Description 03/20/2023 Refill [facility] ADULT DENTAL 230 [place] [address] Johnny Gonzalez DMD 505 [place] [address] Social History Tobacco Use Types Packs/Day Years [...] 2:00 PM EDT Office Visit [facility] MEDICINE 230 [place] [address] Darrell Myers MD [address] [place] [address] 03/08/2025 10:00 AM EDT Office Visit [facility] ADULT DENTAL [address] [place] [address] [phone] Elzbieta, Mariangle 230 [place] [address] documented as of this encounter Visit Diagnoses Not on filedocumented in this encounter Care Teams Piecer Relationship Specialty Start Date End Date Umm Coley MD [address] [place] [address] PCP - General Family Medicine 10/31/16 West Meier RN 505 [place] [address] Self Pay CollectorMerchandise Flow Team Leader 01/12/25 Eva Nunez Self Pay Collector 04/05/24 07/06/24 [facility] 05/11/24 11/17/24 [facility] 11/14/24 01/17/25 [employer] 12/08/24 documented as of this encounter
--- OUTSIDE RECORDS SUMMARY | 2025-01-20 15:03 | XMS_ITS | Encounter Summary ---
Author Organization [employer] [facility] Address 75 [facility] 7t [place] [address] Care Team Providers Care Die Designer Apprentice Name Role Phone Umm Coley MD Primary Care Provider + West Meier RN Unavailable [phone] Reason for Visit * Reason Comments Med Refill Encounter Details Date Type Department Care Team ([facility] st Contact Info) Description 05/21/2023 Refill [facility] MEDICINE 230 [place], [place] [phone] Umm Coley MD 230 [place], [place] [phone] Arthritis of knee Social History Tobacco Use [...] Description 02/03/2025 2:00 PM EDT Office Visit [facility] MEDICINE 230 [place] [address] Darrell Myers MD 230 [place] [address] 03/08/2025 10:00 AM EDT Office Visit [facility] ADULT DENTAL 230 [place], [place] [phone] Elzbieta, Mariangel 230 [place] [address] documented as of this encounter Visit Diagnoses Diagnosis Arthritis of knee Unspecified arthropathy, lower leg documented in this encounter Additional Health Concerns Assessment Noted Time PHQ-9 Depression Total Score: 12 023 1:58 PM EDT documented as of this encounter Care Teams Die Designer Apprentice Relationship Specialty Start Date End Date Umm Coley MD 230 [place] [address] PCP - General Family Medicine 10/31/16 West Meier, BEBA 505 [place] [address] Wood Last MakerCampus Monitor 01/12/25 Eva Nunez Wood Last Maker 04/05/24 07/06/24 [facility] 05/11/24 11/17/24 [facility] 11/14/24 01/17/25 [employer] 12/08/24 documented as of this encounter
--- OUTSIDE RECORDS SUMMARY | 2025-01-20 15:03 | XMS_ITS | Encounter Summary ---
Author Organization [employer] [facility] Address [address] [place] [address] 7t [place] [address] Care Team Providers Care Antique Furniture Reproducer Name Role Phone Umm Coley MD Primary Care Provider + West Meier RN Unavailable [phone] Reason for Visit * Reason Comments Med Refill Encounter Details Date Type Department Care Team ([facility] Contact Info) Description 08/01/2023 Refill [facility] MEDICINE 230 [place], [place] [phone] Umm Coley MD [address] [place], [place] [phone] Social History Tobacco Use Types Packs/Day Years [...] Upcoming Encounters Date Type Department Care Team ([facility] Contact Info) Description 02/03/2025 2:00 PM EDT Office Visit [facility] MEDICINE 230 [place], [place] [phone] Darrell Myers MD [address] [place] [address] 03/08/2025 10:00 AM EDT Office Visit [facility] ADULT DENTAL 230 [place], [place] [phone] Mariangel Ruff [address] [place], [place] [phone] documented as of this encounter Visit Diagnoses Not on filedocumented in this encounter Additional Health Concerns Assessment Noted Time PHQ-9 Depression Total Score: 12 023 1:58 PM EDT documented as of this encounter Care Teams Antique Furniture Reproducer Relationship Specialty Start Date End Date Umm Coley MD [address] [place], [place] [phone] PCP - General Family Medicine 10/31/16 West Meier, BEBA [address] [place] [address] Gill TenderChildcare Teacher 01/12/25 Eva Nunez Gill Tender 04/05/24 07/06/24 [facility] 05/11/24 11/17/24 [facility] 11/14/24 01/17/25 [employer] 12/08/24 documented as of this encounter
--- OUTSIDE RECORDS SUMMARY | 2025-01-20 15:03 | XMS_ITS | Encounter Summary ---
Author Organization [employer] Address 75 [facility] 7t [place] [address] Care Team Providers Care Cylinder Block Hole Reliner Name Role Phone Umm Coley MD Primary Care Provider + Reason for Visit * Reason Onset Date Comments VNA services 01/04/2025 Encounter Details Date Type Department Care Team ([facility] st Contact Info) Description 01/04/2025 Telephone [facility] MEDICINE 230 [place], [place] [phone] Umm Coley MD 230 [place], [place] [phone] VNA services Social History Tobacco Use Types [...] to lay eye on the patient. Per HOME ADMINISTRATOR, patient is laying in bed d/t being in pain (possibly r/t recent surgery from 01/02/25 d/t R distal radius fracture). VNA was able to fill med silverware buffing machine operator and leave out for patient to take medication. VNA will see patient tomorrow. documented in this encounter Plan of Treatment Upcoming Encounters Date Type Department Care Team (Late st Contact Info) Description 02/03/2025 2:00 PM EDT Office Visit [facility] MEDICINE 230 [place] [address] Darrell Myers MD 230 [place] [address] 03/08/2025 10:00 AM EDT Office Visit [facility] ADULT DENTAL 230 [place] [address] Mariangel Ruff [address] [place] [address] documented as of this encounter Visit Diagnoses Not on filedocumented in this encounter Additional Health Concerns Assessment Noted Time PHQ-9 Depression Total Score: 10 024 9:17 AM EDT documented as of this encounter Care Teams Cylinder Block Hole Reliner Relationship Specialty Start Date End Date Umm Coley MD 230 [place] [address] PCP - General Family Medicine 10/31/16 [facility] 11/14/24 01/17/25 [employer] 12/08/24 documented as of this encounter
--- OUTSIDE RECORDS SUMMARY | 2025-01-20 15:03 | XMS_ITS | Encounter Summary ---
Author Organization [employer] [facility] Address [address] [place] [address] 7t [place] [address] Care Team Providers Care Crossing Tender Name Role Phone Umm Coley MD Primary Care Provider + West Meier RN Unavailable [phone] Encounter Details Date Type Department Care Team (Latest Contact Info) Description 03/13/2022 Abstract [facility] CONVERSIONS Dental, Provider, DDS Social History [...] 02/03/2025 2:00 PM EDT Office Visit [facility] MEDICINE 230 [place] [address] Darrell Myers MD 230 [place] [address] 03/08/2025 10:00 AM EDT Office Visit [facility] ADULT DENTAL 230 [place] [address] Mariangel Ruff 230 [place] [address] documented as of this encounter Visit Diagnoses Not on filedocumented in this encounter Care Teams Crossing Tender Relationship Specialty Start Date End Date Umm Coley MD 230 [place] [address] PCP - General Family Medicine 10/31/16 West Meier, BEBA 505 [place] [address] Sales Service TechnicianCrime Specialist 01/12/25 Eva Nnuez Sales Service Technician 04/05/24 07/06/24 [facility] 05/11/24 11/17/24 [facility] 11/14/24 01/17/25 [email or web address] 12/08/24 documented as of this encounter
--- OUTSIDE RECORDS SUMMARY | 2025-01-20 15:03 | XMS_ITS | Encounter Summary ---
Author Organization [employer] Address 75 [facility] 7t [place] [address] Care Team Providers Care Application Support Developer Name Role Phone Umm Coley MD Primary Care Provider + Reason for Visit * Reason Onset Date Comments FYI 01/06/2025 Encounter Details Date Type Department Care Team ([facility] st Contact Info) Description 01/06/2025 Telephone [facility] MEDICINE 230 [place], [place] [phone] Umm Coley MD 230 [place], [place] [phone] FYI Social History Tobacco Use Types Packs/Day [...] AM EST Noted. TC placed to patient [phone] to inform patient she needs to call the surgical office torequest alternative medication d/t post op pain. Patient provided with phone number to surgical office [phone]. Patient to f/u PRN. * Telephone Encounter [...] Office Visit [facility] MEDICINE 230 [place], [place] [phone] Darrell Myers MD 230 [place] [address] 03/08/2025 10:00 AM EDT Office Visit [facility] ADULT DENTAL 230 [place] [address] Mariangel Ruff 230 [place] [address] documented as of this encounter Visit Diagnoses Not on filedocumented in this encounter Additional Health Concerns Assessment Noted Time PHQ-9 Depression Total Score: 10 024 9:17 AM EDT documented as of this encounter Care Teams Application Support Developer Relationship Specialty Start Date End Date Umm Coley MD 230 [place] [address] PCP - General Family Medicine 10/31/16 [facility] 11/14/24 01/17/25 [employer] 12/08/24 documented as of this encounter
--- OUTSIDE RECORDS SUMMARY | 2025-01-20 15:03 | XMS_ITS | Encounter Summary ---
Author Organization [employer] Address 75 [facility] 7t [place] [address] Care Team Providers Care Chief Maintenance Supervisor Name Role Phone Umm Coley MD Primary Care Provider + Reason for Visit * Reason Onset Date Comments Chart prep 12/23/2024 Encounter Details Date Type Department Care Team ([facility] st Contact Info) Description 12/23/2024 Telephone [facility] MEDICINE 230 [place], [place] [phone] Umm Coley MD 230 [place], [place] [phone] Chart prep Social History Tobacco Use Types [...] Visit [facility] MEDICINE 230 [place] [address] Darrell Myers MD [address] [place] [address] 03/08/2025 10:00 AM EDT Office Visit [facility] ADULT DENTAL 230 [place] [address] Mariangel Ruff [address] [place] [address] documented as of this encounter Visit Diagnoses Not on filedocumented in this encounter Additional Health Concerns Assessment Noted Time PHQ-9 Depression Total Score: 10 024 9:17 AM EDT documented as of this encounter Care Teams Chief Maintenance Supervisor Relationship Specialty Start Date End Date Umm Coley MD [address] [place] [address] PCP - General Family Medicine 10/31/16 [facility] 11/14/24 01/17/25 [employer] 12/08/24 documented as of this encounter
--- OUTSIDE RECORDS SUMMARY | 2025-01-20 15:03 | XMS_ITS | Encounter Summary ---
Author Organization [facility] Address [address] [place] [address] 7t [place] [address] Care Team Providers Care Locomotive Repairer Diesel Name Role Phone Umm Coley MD Primary Care Provider + West Meier RN Unavailable [phone] Encounter Details Date Type Department Care Team (Late st Contact Info) Description 09/24/2022 Abstract [facility] ADULT DENTAL 230 [place] [address] Dental, Provider, DDS Social History Tobacco Use [...] 2:00 PM EDT Office Visit [facility] MEDICINE [address] [place] [address] Darrell Myers MD 230 [place] [address] 03/08/2025 10:00 AM EDT Office Visit [facility] ADULT DENTAL 230 [place] [address] Mariangel Ruff [address] [place] [address] documented as of this encounter Procedures Procedure [...] on filedocumented in this encounter Care Teams Locomotive Repairer Diesel Relationship Specialty Start Date End Date Umm Coley MD [address] [place] [address] PCP - General Family Medicine 10/31/16 West Meier, BEBA [address] [place] [address] Economic Development SpecialistPoultry Pinner 01/12/25 Eva Nunez Economic Development Specialist 04/05/24 07/06/24 [facility] 05/11/24 11/17/24 [facility] 11/14/24 01/17/25 [employer] 12/08/24 documented as of this encounter
--- OUTSIDE RECORDS SUMMARY | 2025-01-20 15:03 | XMS_ITS | Encounter Summary ---
Author Organization [facility] Address [address] [place] [address] 7t [place] [address] Care Team Providers Care Manager Document Control Name Role Phone Umm Coley MD Primary Care Provider + West Meier RN Unavailable [phone] Encounter Details Date Type Department Care Team (Latest Contact Info) Description 11/23/2020 Abstract [facility] CONVERSIONS Dental, Provider, DDS Social [...] Office Visit [facility] MEDICINE 230 [place] [address] Darrell Myers MD 230 [place] [address] 03/08/2025 10:00 AM EDT Office Visit [facility] ADULT DENTAL 230 [place] [address] Mariangel Ruff 230 [place] [address] documented as of this encounter Visit Diagnoses Not on filedocumented in this encounter Care Teams Manager Document Control Relationship Specialty Start Date End Date Umm Coley MD 230 [place] [address] PCP - General Family Medicine 10/31/16 West Meier, BEBA [address] [place] [address] Jack Machine OperatorMailroom Courier 01/12/25 Eva Nunez Jack Machine Operator 04/05/24 07/06/24 [facility] 05/11/24 11/17/24 [facility] 11/14/24 01/17/25 [employer] 12/08/24 documented as of this encounter
--- OUTSIDE RECORDS SUMMARY | 2025-01-20 15:03 | XMS_ITS | Encounter Summary ---
Author Organization [employer] Address [address] [facility] 7t [place] [address] Care Team Providers Care Aoc Director Combat Operations Officer Name Role Phone Umm Coley MD Primary Care Provider + Reason for Visit * Reason Onset Date Comments Appointment Request 12/26/2024 Encounter Details Date Type Department Care Team ([facility] st Contact Info) Description 12/26/2024 Telephone [facility] MEDICINE [address] [place], [place] [phone] Umm Coley MD [address] [place], [place] [phone] Appointment Request Social History Tobacco Use Types [...] fracture. RN inquired if patient can have MIDDLE SCHOOL GUIDANCE COUNSELOR assist her in dressing in order for patient to be able to come to [facility] to be evaluated. Patient verbalized understanding and reports she will havePCA assist her. Patient reminded of appointment time. Patient to f/u PRN. * Telephone Encounter - Gisela Reynoso RN - 12/26/2024 10:30 AM EST TC placed to [phone] in regards to below message. Patient did [...] at that time tomorrow. Contact pt at [phone] documented in this encounter Plan of Treatment Upcoming Encounters Date Type Department Care Team (Late st Contact Info) Description 02/03/2025 2:00 PM EDT Office Visit [facility] MEDICINE [address] [place] [address] Darrell Myers MD [address] [place] [address] 03/08/2025 10:00 AM EDT Office Visit [facility] ADULT DENTAL [address] [place] [address] Mariangel Ruff [address] [place] [address] documented as of this encounter Visit Diagnoses Not on filedocumented in this encounter Additional Health Concerns Assessment Noted Time PHQ-9 Depression Total Score: 10 024 9:17 AM EDT documented as of this encounter Care Teams Aoc Director Combat Operations Officer Relationship Specialty Start Date End Date Umm Coley MD [address] [place] [address] PCP - General Family Medicine 10/31/16 [facility] 11/14/24 01/17/25 [employer] 12/08/24 documented as of this encounter
--- OUTSIDE RECORDS SUMMARY | 2025-01-20 15:03 | XMS_ITS | Encounter Summary ---
Author Organization [employer] [facility] Address [address] [place] [address] 7t [place] [address] Care Team Providers Care Scow Derrick Operator Name Role Phone Umm Coley MD Primary Care Provider + West Meier RN Unavailable [phone] Encounter Details Date Type Department Care Team (Latest Contact Info) Description 11/14/2019 Abstract [facility] CONVERSIONS Dental, Provider, DDS Social [...] Description 02/03/2025 2:00 PM EDT Office Visit [facility] MEDICINE [address] [place] [address] Darrell Myers MD [address] [place] [address] 03/08/2025 10:00 AM EDT Office Visit [facility] ADULT DENTAL [address] [place] [address] Mariangel Ruff [address] [place] [address] documented as of this encounter Visit Diagnoses Not on filedocumented in this encounter Care Teams Scow Derrick Operator Relationship Specialty Start Date End Date Umm Coley MD [address] [place] [address] PCP - General Family Medicine 10/31/16 West Meier, BEBA [address] [place] [address] Hand CrocheterParamedic Rn 01/12/25 Eva Nunez Hand Crocheter 04/05/24 07/06/24 [facility] 05/11/24 11/17/24 [facility] 11/14/24 01/17/25 [employer] 12/08/24 documented as of this encounter
--- OUTSIDE RECORDS SUMMARY | 2025-01-20 15:03 | XMS_ITS | Encounter Summary ---
Author Organization adjust [facility] Address [address] [place] [address] 7t [place] [address] Care Team Providers Care Client Support Associate Name Role Phone Umm Coley MD Primary Care Provider + West Meier RN Unavailable [phone] Reason for Visit * Reason Comments Med Refill Encounter Details Date Type Department Care Team ([facility] Contact Info) Description 02/05/2023 Refill [facility] MEDICINE [address] [place], [place] [phone] Umm Coley MD [address] [place], [place] [phone] Arthritis of knee Social History Tobacco Use [...] Upcoming Encounters Date Type Department Care Team ([facility] Contact Info) Description 02/03/2025 2:00 PM EDT Office Visit [facility] MEDICINE [address] [place] [address] Darrell Myers MD [address] [place] [address] 03/08/2025 10:00 AM EDT Office Visit [facility] ADULT DENTAL [address] [place], [place] [phone] Mariangel Ruff [address] [place] [address] documented as of this encounter Visit Diagnoses Diagnosis Arthritis of knee Unspecified arthropathy, lower leg documented in this encounter Care Teams Client Support Associate Relationship Specialty Start Date End Date Umm Coley MD [address] [place] [address] PCP - General Family Medicine 10/31/16 West Meier RN [address] [place] [address] Crop And Soil TechnicianPaver Layer 01/12/25 Eva Nunez Crop And Soil Technician 04/05/24 07/06/24 [facility] 05/11/24 11/17/24 [facility] 11/14/24 01/17/25 [employer] 12/08/24 documented as of this encounter
== END 2025-01-20 13:15 | disposition home or self-care (01) ==
LOC: HO.HOS 12:37
DX: S52.501A Unspecified fracture of the lower end of right radius, initial encounter for closed fracture (principal)
CPT/HCPCS: 99024

== ENCOUNTER → 2025-01-20 12:36 | Outpatient (BNVA) | payer MEDICAID, SELFPAY | DX: S52.501D Unspecified fracture of the lower end of right radius, subsequent encounter for closed fracture with routine healing (principal) | CPT/HCPCS: 99212 ==

== ENCOUNTER 2025-01-26 12:50 | Outpatient (AMB) | payer MEDICAID, SELFPAY ==
--- NOTE | 2025-01-26 12:51 | MHC.OFFVIS ---
Intake Visit Reasons: TEL-Left knee MRI review Intake Note: Diana is a 59 year old, Bahraini speaking, female who presents today VIA Telephone for a left knee MRI review. Patient has tried and failed cortisone injections, OTC NSAIDs, Celebrex, Tylenol. Left Knee MRI @ [facility] 12/06/24: IMPRESSION: 1. No internal derangement of the left knee. Menisci, cartilage, and ligamentous structures are intact. 2. Edema within the suprapatellar fat pad, which can be seen with fat pad impingement syndromes. Correlate for anterior knee pain. 3. Mild fatty edema medial to the iliotibial band, which can be seen with iliotibial band friction syndrome. Bulking Machine Operator Required: Yes Bulking Machine Operator Language: Printing Machine Operator Tape Rules Services: Bulking Machine Operator Present Bulking Machine Operator Name: Vickey ID#[id number] Allergies codeine [CODEINE] Allergy (Intermediate, Verified 01/26/25 12:54) DIZZY/NAUSEA, nausea/vomiting escitalopram [From LEXAPRO] Allergy (Intermediate, Verified 01/26/25 12:54) ? NAUSEA meperidine [MEPERIDINE] Allergy (Intermediate, Verified 01/26/25 12:54) NAUSEA morphine [MORPHINE] Allergy (Intermediate, Verified 01/26/25 12:54) PALPITATIONS, palpitation oxycodone [OXYCODONE] Allergy (Intermediate, Verified 01/26/25 12:54) PALPATATIONS, palpitations tramadol Allergy (Unknown, Verified 01/26/25 12:54) dizziness, nausea HPI HPI TEL-Left knee MRI review: Details: 59-year-old female presents for telehealth left knee MRI review. She complains of medial-sided knee pain. [facility] Medical History Primary osteoarthritis of right hand Migraine Right shoulder pain Rotator cuff tendinitis Arthritis of right shoulder region Right hand pain Breast cancer, right Status post radiation therapy Anemia Diarrhea Depression Somatization disorder Migraine equivalent syndrome Anxiety Periodontal disease Fibromyalgia Surgical History History of esophagogastroduodenoscopy (EGD) History of lumpectomy Hx of section Hx of shoulder surgery Hx of colonoscopy Family History Mother HTN (hypertension) Sister Breast cancer Bone cancer Colon polyps Sister Osteoporosis Hypercholesteremia Colon polyps Social History Household Members: None Housing: Apartment Are you a primary healthcare account manager to a significant other at home: No Do you presently have visiting nurse or other home services: No Alcohol intake: never Patient Tobacco Use Status: Former Tobacco user Years Smoked: 3 service: No Current occupational status: disabled 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 Review of Systems Const All systems reviewed & are unremarkable except as noted in HPI and below Physical Exam Resp Effort & Inspection: normal respiratory effort and able to speak in complete sentences Telehealth Telehealth Telehealth Platform: Telephone Location of provider rendering services: practice address Location of patient: address on file Patient Identification confirmed using: Name, : Yes Telehealth method: voice only Patient verbally consented to treatment: Yes Patient verbally consented to billing insurance company: Yes Patient informed of any privacy concerns related to visit: Yes Minutes spent on Phone/Video with Pt.: 10 Results Reviewed Results Reviewed: Left Knee MRI @ [facility] 12/06/24: IMPRESSION: 1. No internal derangement of the left knee. Menisci, cartilage, and ligamentous structures are intact. 2. Edema within the suprapatellar fat pad, which can be seen with fat pad impingement syndromes. Correlate for anterior knee pain. 3. Mild fatty edema medial to the iliotibial band, which can be seen with iliotibial band friction syndrome. Assessment & Plan Assessment & Plan (1) Patellofemoral arthritis of left knee: Code(s): M17.12 - Unilateral primary osteoarthritis, left knee Category: Medical Plan: We discussed the MRI which is negative for structural abnormalities. Reassured her to continue with conservative measures such as therapy or steroid injections. She states she has failed all these and would like to discuss other options. I did refer her back to pain management to discuss to nickel it is. She is content with this plan. Orders: Referrals Pain Management Referral M17.12 - Unilateral primary osteoarthritis, left knee Coding Level of Care Code Tele Est Pt Level 3 (56907) Diagnoses Patellofemoral arthritis of left knee M17.12
== END 2025-01-26 13:06 | disposition home or self-care (01) ==
LOC: HO.HOS 12:50
PROVIDERS: PCP Internal Medicine; Visit Provider Physician Assistant
DX: M17.12 Unilateral primary osteoarthritis, left knee (principal)
CPT/HCPCS: 99213

== ENCOUNTER → 2025-01-26 12:50 | Outpatient (BNVA) | payer MEDICAID, SELFPAY | PROVIDERS: PCP Internal Medicine; Visit Provider Physician Assistant ==

== ENCOUNTER 2025-01-31 08:30 | Outpatient (REF) | payer MEDICAID, SELFPAY ==
[2025-01-31 08:49] LABS: MANUAL DIFF FLAG NO
--- OUTSIDE RECORDS SUMMARY | 2025-01-31 08:51 | XMS_ITS | Encounter Summary ---
Author Organization [employer] Address [address] [facility] 7t [place] [address] Care Team Providers Care Core Shaper Name Role Phone Umm Coley MD Primary Care Provider + West Meier RN Unavailable [phone] Encounter Details Date Type Department Care Team ([facility] st Contact Info) Description 01/24/2025 Telephone [facility] MEDICINE [address] [place], [place] [phone] Umm Coley MD [address] [place], [place] [phone] Social History Tobacco Use Types Packs/Day Years [...] encounter Miscellaneous Notes * Telephone Encounter - Ayde Ventura MA - 01/28/2025 9:53 AM EDT Generated DME rx for item below placed on PCP desk for signature. * Telephone Encounter - Umm Coley MD - 01/24/2025 5:15 PM EDT Re hand held shower, please write a Rx and PA if needed, dx M54.50 + M17.10 + R29.6 * Telephone Encounter - West Meier RN - 01/24/2025 10:[address] Coley, during initial assessment for care management on 01/12/25 patient requested the following DME: hand held shower hose. documented in this encounter Plan of Treatment Upcoming Encounters Date Type Department Care Team (Late st Contact Info) Description 02/03/2025 2:00 PM EDT Office Visit [facility] MEDICINE [address] [place] [address] Darrell Myers MD [address] [place] [address] 03/08/2025 10:00 AM EDT Office Visit [facility] ADULT DENTAL [address] [place], [place] [phone] Trino Ruffaris [address] [place] [address] 05/02/2025 10:30 AM EDT Office Visit [facility] MEDICINE [address] [place] [phone] Umm Coley MD [address] [place] [address] documented as of this encounter Visit Diagnoses Not on filedocumented in this encounter Additional Health Concerns Assessment Noted Time PHQ-9 Depression Total Score: 10 024 9:17 AM EDT documented as of this encounter Care Teams Core Shaper Relationship Specialty Start Date End Date Umm Coley MD [address] [place] [address] PCP - General Family Medicine 10/31/16 West Meier, BEBA [address] [place] [address] Director Speech And HearingAgricultural Engineering Technicians 01/12/25 [employer] 12/08/24 documented as of this encounter
--- OUTSIDE RECORDS SUMMARY | 2025-01-31 08:51 | XMS_ITS | Encounter Summary ---
Author Organization [employer] [facility] [place] [facility] Address [address] [place] [address] 7t [place] [address] Care Team Providers Care Sap Solution Manager Consultant Name Role Phone Umm Coley MD Primary Care Provider + West Meier RN Unavailable [phone] Encounter Details Date Type Department Care Team (Latest Contact Info) Description 11/23/2020 Abstract [facility] CONVERSIONS Dental, Provider, DDS Social History [...] Description 02/03/2025 2:00 PM EDT Office Visit [facility] MEDICINE [address] [place] [address] Darrell Myers MD [address] [place] [address] 03/08/2025 10:00 AM EDT Office Visit [facility] ADULT DENTAL [address] [place] [address] Mariangel Ruff [address] [place] [address] 05/02/2025 10:30 AM EDT Office Visit [facility] MEDICINE [address] [place] [phone] Umm Coley MD [address] [place] [address] documented as of this encounter Visit Diagnoses Not on filedocumented in this encounter Care Teams Sap Solution Manager Consultant Relationship Specialty Start Date End Date Umm Coley MD [address] [place], [place] [phone] PCP - General Family Medicine 10/31/16 West Meier, BEBA [address] [place] [address] Industrial Gas Fitter [employer] Infrastructure Architect 01/12/25 Eva Nunez Industrial Gas Fitter Helper 04/05/24 07/06/24 [facility] 05/11/24 11/17/24 [facility] 11/14/24 01/17/25 [employer] 12/08/24 documented as of this encounter
--- OUTSIDE RECORDS SUMMARY | 2025-01-31 08:51 | XMS_ITS | Encounter Summary ---
Author Organization [facility] Address [address] [place] [address] 7t [place] [address] Care Team Providers Care Oral And Maxillofacial Surgery Name Role Phone Umm Coley MD Primary Care Provider + West Meier RN Unavailable [phone] Reason for Visit * Reason Comments Med Refill Encounter Details Date Type Department Care Team ([facility] Contact Info) Description 08/01/2023 Refill [facility] MEDICINE [address] [place], [place] [phone] Umm Coley MD [address] [place], [place] [phone] Social History Tobacco Use Types Packs/Day Years [...] Upcoming Encounters Date Type Department Care Team ([facility] Contact Info) Description 02/03/2025 2:00 PM EDT Office Visit [facility] MEDICINE [address] [place], [place] [phone] Darrell Myers MD [address] [place] [address] 03/08/2025 10:00 AM EDT Office Visit [facility] ADULT DENTAL [address] [place], [place] [phone] Mariangel Ruff [address] [place], [place] [phone] 05/02/2025 10:30 AM EDT Office Visit [facility] MEDICINE [address] [place], [place] [phone] Umm Coley MD [address] [place] [phone] documented as of this encounter Visit Diagnoses Not on filedocumented in this encounter Additional Health Concerns Assessment Noted Time PHQ-9 Depression Total Score: 12 023 1:58 PM EDT documented as of this encounter Care Teams Oral And Maxillofacial Surgery Relationship Specialty Start Date End Date Umm Coley MD [address] [place] [address] PCP - General Family Medicine 10/31/16 West Meier, RN [address] [place] [address] Clinical AidePlating Foreman 01/12/25 Eva Nunez Clinical Aide 04/05/24 07/06/24 [facility] 05/11/24 11/17/24 [facility] 11/14/24 01/17/25 [employer] 12/08/24 documented as of this encounter
--- OUTSIDE RECORDS SUMMARY | 2025-01-31 08:51 | XMS_ITS | Clinical Summary ---
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 ?Acct:[id number] ? Age/Sex: 59 / F ?ADM Date: /28/25 ? Loc: HO.MAMMO ? Attending Dr: Shalonda Coley MD ? Ordering Physician: Shalonda Coley MD ?Results: 2Be ?? nign Findings ? Date of Service: 11/29/24 ?Follow Up: 1 Year From Orig ?? inal Mammogram ? Procedure(s): MM tomosynthesis screening BI ?? Accession Number(s): [id number] ? cc: Shalonda Coley MD ? EXAMINATION: [...] DD/ 0845 ? TD/TT: 11/29/24 0915 ? Orthopedic Assistant: ? Procedure Note Donotuseinterpreter, Image - 12/07/2024 [facility] [address] [place] [address] Mammography Report Signed Patient: Diana Myles LMR#: [id number] 8 : 1965Acct:[id number] Age/Sex: 59 / FADM Date: 11/29/24 Loc: HO.MAMMO Attending Dr: Shalonda Coley MD Ordering Physician: Shalonda Coley MDResults: 2Be nign Findings Date of Service: 11/29/24Follow Up: 1 Year From Orig ina Mammogram Procedure(s): MM tomosynthesis screening BI Accession Number(s): [id number] cc: Shalonda Coley MD EXAMINATION: MM SCREENING [...] by: Chaparrita Lyn DO 12/07/2024 03:[address] [facility] Dictated By: Chaparrita Lyn DO Signed By: <Electronically signed by Chaparrita Lyn DO in OV> 12/07/24 1532 DD/ 0845 TD/TT: 11/29/24 0915 Orthopedic Assistant: Shalonda Coley MD IMG BI PROCEDURES Edited Result - Final * POCT Rapid RSV ROJAS ID NOW (11/10/2024 2:01 PM EST) [facility] RSV Rapid Ag POC Negative Negative Swab 11/10/2024 2:01 PM EST Shalonda Coley MD POINT OF CARE TEST ENTER /EDIT ORDERABLES Final Result * POCT Rapid Influenza B ROJAS ID NOW (11/10/2024 2:01 PM EST) [facility] Influenza B Negative Negative, Indeterminate [facility] Swab 11/10/2024 2:01 PM EST Shalonda Coley MD POINT OF CARE TEST ENTER /EDIT ORDERABLES Final Result [facility] [address] [place] [phone] * POCT Rapid Influenza A ROJAS ID NOW (11/10/2024 2:01 PM EST) [facility] Influenza A Negative Negative, Indeterminate [facility] Swab 11/10/2024 2:01 PM EST Shalonda Coley MD POINT OF CARE TEST ENTER /EDIT ORDERABLES Final Result Performing Organization Address City/[facility]/ZIP Co de Phone Number [facility] [address] [place] [phone] * POCT Rapid Covid-19 BinaxNOW (11/10/2024 2:01 PM EST) [facility] Rapid COVID Ag Negative Swab 11/10/2024 2:01 PM EST Shalonda Coley MD POINT OF CARE TEST ENTER /EDIT ORDERABLES Final Result * (ABNORMAL) Hm Colonoscopy (07/30/2023) Colonoscopy Abnormal( A) Normal [facility] Comment:SSL polyp Shalonda Coley MD HEALTH MAINTENANCE Final Result [facility] [address] [place] [phone] * Thinprep PAP and HPV nRNA E6/E7 (10/08/2022 9:30 AM EST) Clinical Information: None given [facility] LMP: NONE GIVEN [facility] Prev. PAP: NONE GIVEN [facility] Prev. BX: NONE GIVEN [facility] SOURCE: None given [facility] Statement Of Adequacy: SATISFACTORY FOR EVALUATION Age and/or menstrual status not provided [facility] Interpretation/Re sult: [facility] Comment: Negative for intraepithelial lesion or malignancy. Atrophic pattern; predominantly parabasal cells Senior Research Project Manager: Siria V[employer]t Comment: DMM, CT(ASCP) CT screening location: [address] ??[phone] Review Senior Research Project Manager: [facility] Comment: MAMeet CT(ASCP) CT screening location: [address] ??[phone] (Always Message) Que [facility] Comment: EXPLANATORY NOTE: The Pap is a [...] HPV nRNA E6/E7 Not Detected Not Detected [facility] Comment: Methodology: Facs Teacher-Mediated Amplification This assay detects E6/E7 viral messenger RNA (mRNA) from 14 high-risk HPV types (16,18,31,33,35,39,45,51,52,56,58,59,66,68). Cervical sources are required for HPV testing. If a vaginal source from a patient who has had a total hysterectomy with removal of cervix was submitted, please contact the testing laboratory for alternative testing options. For additional information, please refer to http://education.RadiumOne/faq/QIM836g4 (This link if provided for information/ educational purposes only.) 10/08/2022 9:30 AM EST 10/10/2022 1:07 AM EST Narrative [facility] - 10/14/2022 7:08 PM EST FASTING: UNKNOWN Shauna Matamoros [facility] PATHOLOGY ORDERABLES Final Result [facility] [address], [place] [address] [facility] [address], [place] [address] * HIV AB/AG (04/30/2022 11:28 AM EDT) Pathologist [facility] HIV AB/AG Nonreactive Nonreactive [facility] Comment: HIV-1 p24 Ag and/or [...] detection of this assay. ?? The [employer] Supervisor HIV Ag/Ab Combo assay result and supplemental assay results should be interpreted in conjunction with the patient's clinical presentation, history and other laboratory results. ??If the results are inconsistent with clinical evidence, additional testing is suggested to confirm the result. Hepatitis B Surface Antibody REACTIVE Nonreactive [facility] Comment:REACTIVE: > 11.99 mI U/mL Hepatitis B Surface Antigen Negative Negative [facility] Hepatitis B Core Antibody Nonreactive Nonreactive [facility] 04/30/2022 11:2 8 AM EDT us Shalonda Coley MD HISTORICAL/NON ORDERABLE LABS Final Result [facility] [address] [place] [address], from Last 3 Months or Most Recently Relevant to Health Maintenance Insurance C3 C3 DENTAL-[facility] MEDICAID STAND ADULT Care Teams Occupational Therapist Assistants Relationship Specialty Start Date End Date Shalonda Coley MD [address] [place] [address] PCP - General Family Medicine 10/31/16 West Meier, BEBA [address] [place] [address] Can CarrierDirector Of Annual Giving 01/12/25 [employer] 12/08/24
--- OUTSIDE RECORDS SUMMARY | 2025-01-31 08:51 | XMS_ITS | Encounter Summary ---
Author Organization [employer] Address 75 [facility] 7t [place] [address] Care Team Providers Care Trust And Estates Paralegal Name Role Phone Umm Coley MD Primary Care Provider + West Meier RN Unavailable [phone] Encounter Details Date Type Department Care Team ([facility] st Contact Info) Description 08/23/2024 Orders Only [facility] CHC ADULT DENTAL [address] [place], [place] [phone] Johnny Gonzalez, DMD [address] [place] [address] Social History Tobacco Use Types Packs/Day Years [...] Office Visit [facility] MEDICINE [address] [place] [address] Darrell Myers MD [address] [place] [address] 03/08/2025 10:00 AM EDT Office Visit [facility] ADULT DENTAL [address] [place] [address] Elzbieta, Mariangel [address] [place] [address] 05/02/2025 10:30 AM EDT Office Visit [facility] MEDICINE [address] [place] [address] Umm Coley MD [address] [place] [address] documented as of this encounter Visit Diagnoses Not on filedocumented in this encounter Additional Health Concerns Assessment Noted Time PHQ-9 Depression Total Score: 10 024 9:17 AM EDT documented as of this encounter Care Teams Trust And Estates Paralegal Relationship Specialty Start Date End Date Umm Coley MD [address] [place] [address] PCP - General Family Medicine 12/30/16 West Meier, RN [address] [place] [address] FreightDevice Test Engineer 01/12/25 [facility] 05/11/24 11/17/24 [facility] 11/14/24 01/17/25 [email or web address] 12/08/24 documented as of this encounter
--- OUTSIDE RECORDS SUMMARY | 2025-01-31 08:51 | XMS_ITS | Encounter Summary ---
Author Organization [employer] Address 75 [facility] 7t [place] [address] Care Team Providers Care Semi Driver Name Role Phone Umm Coley MD Primary Care Provider + West Me[place] RN Unavailable [phone] Reason for Visit * Reason Onset Date Comments appt 01/08/2024 Encounter Details Date Type Department Care Team ([facility] st Contact Info) Description 01/08/2024 Telephone [facility] CHC ADULT DENTAL [address] [place] [address] Homer Strong, DMD [address] [place] [address] appt Social History Tobacco Use Types Packs/Day [...] EDT Office Visit [facility] MEDICINE [address] [place] [address] Darrell Myers MD 230 [place] [address] 03/08/2025 10:00 AM EDT Office Visit [facility] ADULT DENTAL 230 [place], [place] [phone] Mariangel Ruff [address] [place] [address] 05/02/2025 10:30 AM EDT Office Visit [facility] MEDICINE [address] [place] [address] Umm Coley MD 230 [place] [address] documented as of this encounter Visit Diagnoses Not on filedocumented in this encounter Additional Health Concerns Assessment Noted Time PHQ-9 Depression Total Score: 21 024 11:31 AM EST documented as of this encounter Care Teams Semi Driver Relationship Specialty Start Date End Date Umm Coley MD 230 [place] [address] PCP - General Family Medicine 10/31/16 West Meier RN [address] [place] [address] Automotive Customer Experience AdvisorManager Benefit 01/12/25 Eva Nunez Automotive Customer Experience Advisor 04/05/24 07/06/24 [facility] 05/11/24 11/17/24 [facility] 11/14/24 01/17/25 [employer] 12/08/24 documented as of this encounter
--- OUTSIDE RECORDS SUMMARY | 2025-01-31 08:51 | XMS_ITS | Encounter Summary ---
Author Organization [employer] [facility] Address [address] [place] [address] 7t [place] [address] Care Team Providers Care Warp Preparer Name Role Phone Umm Coley MD Primary Care Provider + West Meier RN Unavailable [phone] Encounter Details Date Type Department Care Team (Latest Contact Info) Description 03/13/2022 Abstract [facility] CONVERSIONS Dental, Provider, DDS Social History [...] 2:00 PM EDT Office Visit [facility] MEDICINE [address] [place] [address] Darrell Myers MD 230 [place] [address] 03/08/2025 10:00 AM EDT Office Visit [facility] ADULT DENTAL 230 [place] [address] Mariangel Ruff [address] [place] [address] 05/02/2025 10:30 AM EDT Office Visit [facility] MEDICINE [address] [place] [address] [phone] Umm Coley MD 230 [place] [address] documented as of this encounter Visit Diagnoses Not on filedocumented in this encounter Care Teams Warp Preparer Relationship Specialty Start Date End Date Umm Coley MD 230 [place], [place] [phone] PCP - General Family Medicine 10/31/16 West Meier, BEBA [address] [place] [address] Insulation Worker Interior SurfaceScouring Pads Supervisor 01/12/25 Eva Nunez Insulation Worker Interior Surface 04/05/24 07/06/24 [facility] 05/11/24 11/17/24 [facility] 11/14/24 01/17/25 [employer] 12/08/24 documented as of this encounter
--- OUTSIDE RECORDS SUMMARY | 2025-01-31 08:51 | XMS_ITS | Encounter Summary ---
Author Organization [employer] Address 75 [facility] 7t [place] [address] Care Team Providers Care Cardiac Catheterization Technician Name Role Phone Umm Coley MD Primary Care Provider + West Meier RN Unavailable [phone] Encounter Details Date Type Department Care Team (Late st Contact Info) Description 11/03/2022 Orders Only [facility] MEDICINE 230 [place], [place] [phone] Umm Coley MD 230 [place], [place] [phone] Osteopenia after menopause (Primary Dx) Social History [...] Description 02/03/2025 2:00 PM EDT Office Visit [facility] MEDICINE [address] [place] [address] Darrell Myers MD [address] [place] [address] 03/08/2025 10:00 AM EDT Office Visit [facility] ADULT DENTAL [address] [place] [address] [phone] Elzbieta, Mariangel [address] [place], [place] [phone] 05/02/2025 10:30 AM EDT Office Visit [facility] MEDICINE [address] [place] [address] Umm Coley MD [address] [place] [address] [phone] Scheduled Orders Name Type Priority Associated Diagnoses Orde r Schedule Vitamin D, 25-Hydroxy, Total, Immunoassay Lab Routine Osteopenia after menopause Expected: 11/03/2022 (Approximate), Expires: 11/03/2023 PTH, Intact (ICMA) And Ionized Calcium Lab Routine Osteopenia after menopause Expected: 11/03/2022 (Approximate), Expires: 11/03/2023 documented as of this encounter Visit Diagnoses Diagnosis Osteopenia after menopause- Primary documented in this encounter Care Teams Cardiac Catheterization Technician Relationship Specialty Start Date End Date Umm Coley MD [address] [place] [address] [phone] PCP - General Family Medicine 10/31/16 West Meier, BEBA [address] [place] [address] Communications ProgrammerWater Plant Operator 01/12/25 Eva Nunez Communications Programmer 04/05/24 07/06/24 [facility] 05/11/24 11/17/24 Mir Al[employer] 11/14/24 01/17/25 [employer] 12/08/24 documented as of this encounter
--- OUTSIDE RECORDS SUMMARY | 2025-01-31 08:51 | XMS_ITS | Encounter Summary ---
Author Organization [email or web address] [facility] Address [address] [place] [address] 7t [place] [address] Care Team Providers Care Plywood Factory Worker Name Role Phone Umm Coley MD Primary Care Provider + West Meier RN Unavailable [phone] Encounter Details Date Type Department Care Team (Late st Contact Info) Description 09/24/2022 Abstract [facility] ADULT DENTAL 230 [place] [address] Dental, Provider, DDS Social History Tobacco Use [...] Description 02/03/2025 2:00 PM EDT Office Visit [facility] MEDICINE [address] [place] [address] Darrell Myers MD 230 [place] [address] 03/08/2025 10:00 AM EDT Office Visit [facility] ADULT DENTAL [address] [place] [address] Mariangel Ruff [address] [place] [address] 05/02/2025 10:30 AM EDT Office Visit [facility] MEDICINE 230 [place] [address] Umm Coley MD 230 [place] [address] documented as of this encounter Procedures Procedure [...] on filedocumented in this encounter Care Teams Plywood Factory Worker Relationship Specialty Start Date End Date Umm Coley MD [address] [place] [address] PCP - General Family Medicine 10/31/16 West Meier, RN 505 [place] [address] Information Assurance EngineerDressing Machine Operator 01/12/25 Eva Nunez Information Assurance Engineer 04/05/24 07/06/24 [facility] 05/11/24 11/17/24 [facility] 11/14/24 01/17/25 [employer] 12/08/24 documented as of this encounter
--- OUTSIDE RECORDS SUMMARY | 2025-01-31 08:51 | XMS_ITS | Encounter Summary ---
Author Organization [employer] [facility] Address [address] [place] [address] 7t [place] [address] Care Team Providers Care Sanitation Worker Hosing Machinery Name Role Phone Umm Coley MD Primary Care Provider + West Meier RN Unavailable [phone] Encounter Details Date Type Department Care Team (Latest Contact Info) Description 11/14/2019 Abstract [facility] CONVERSIONS Dental, Provider, DDS Social History Tobacco [...] Office Visit [facility] MEDICINE [address] [place] [address] Darrell Myers MD 230 [place] [address] 03/08/2025 10:00 AM EDT Office Visit [facility] ADULT DENTAL 230 [place] [address] Mariangel Ruff [address] [place] [address] 05/02/2025 10:30 AM EDT Office Visit [facility] MEDICINE [address] [place] [address] Umm Coley MD [address] [place] [address] documented as of this encounter Visit Diagnoses Not on filedocumented in this encounter Care Teams Sanitation Worker Hosing Machinery Relationship Specialty Start Date End Date Umm Coley MD [address] [place], [place] [phone] PCP - General Family Medicine 10/31/16 West Meier, BEBA [address] [place] [address] Live In CaregiverBuffing Wheel Operator 01/12/25 Eva Nunez Live In Caregiver 04/05/24 07/06/24 [facility] 05/11/24 11/17/24 [facility] 11/14/24 01/17/25 [employer] 12/08/24 documented as of this encounter
--- OUTSIDE RECORDS SUMMARY | 2025-01-31 08:51 | XMS_ITS | Encounter Summary ---
Author Organization [employer] Address 75 [facility] 7t [place] [address] Care Team Providers Care Project Control Officer Name Role Phone Umm Coley MD Primary Care Provider + West Meier RN Unavailable [phone] Reason for Visit * Reason Onset Date Comments pre med prior to dental treatment 08/23/2024 Encounter Details Date Type Department Care Team (Late st Contact Info) Description 08/23/2024 Telephone [facility] ADULT DENTAL [address] [place] [address] Johnny Gonzalez, DMD [address] [place], [place] [phone] pre med prior to dental treatment Social [...] spoke with Nina in the front office director with a run through of what was happening with the patient and she stated she would also send something to provider for clarificationDR documented in this encounter Plan of Treatment Upcoming Encounters Date Type Department Care Team (Late st Contact Info) Description 02/03/2025 2:00 PM EDT Office Visit [facility] MEDICINE [address] [place] [address] [phone] Darrell Myers MD [address] [place] [address] [phone] 03/08/2025 10:00 AM EDT Office Visit [facility] ADULT DENTAL [address] [place] [address] Trino Ruffaris [address] [place] [address] 05/02/2025 10:30 AM EDT Office Visit [facility] MEDICINE [address] [place] [address] Umm Coley MD [address] [place] [address] [phone] documented as of this encounter Visit Diagnoses Not on filedocumented in this encounter Additional Health Concerns Assessment Noted Time PHQ-9 Depression Total Score: 10 024 9:17 AM EDT documented as of this encounter Care Teams Project Control Officer Relationship Specialty Start Date End Date Umm Coley MD [address] [place] [address] PCP - General Family Medicine 10/31/16 West Meier, RN [address] [place] [address] It Security ArchitectSoftware Program Manager 01/12/25 [facility] 05/11/24 11/17/24 [facility] 11/14/24 01/17/25 [employer] 12/08/24 documented as of this encounter
--- OUTSIDE RECORDS SUMMARY | 2025-01-31 08:51 | XMS_ITS | Encounter Summary ---
Author Organization [employer] [facility] Address [address] [place] [address] 7t [place] [address] Care Team Providers Care Medical Office Receptionist Assistant Name Role Phone Umm Coley MD Primary Care Provider + West Meier RN Unavailable [phone] Encounter Details Date Type Department Care Team (Latest Contact Info) Description 09/16/2022 Abstract [facility] CONVERSIONS Dental, Provider, DDS Social [...] Description 02/03/2025 2:00 PM EDT Office Visit [facility] MEDICINE [address] [place] [address] Darrell Myers MD 230 [place] [address] 03/08/2025 10:00 AM EDT Office Visit [facility] ADULT DENTAL 230 [place] [address] Mariangel Ruff [address] [place] [address] 05/02/2025 10:30 AM EDT Office Visit [facility] MEDICINE [address] [place] [address] [phone] Umm Coley MD 230 [place] [address] documented as of this encounter Visit Diagnoses Not on filedocumented in this encounter Care Teams Medical Office Receptionist Assistant Relationship Specialty Start Date End Date Umm Coley MD [address] [place], [place] [phone] PCP - General Family Medicine 10/31/16 West Meier, BEBA [address] [place] [address] Professor Of Sport ManagementAsian Art Curator 01/12/25 Eva Nunez Professor Of Sport Management 04/05/24 07/06/24 [facility] 05/11/24 11/17/24 [facility] 11/14/24 01/17/25 [employer] 12/08/24 documented as of this encounter
--- OUTSIDE RECORDS SUMMARY | 2025-01-31 08:51 | XMS_ITS | Encounter Summary ---
Author Organization [employer] Address [address] [facility] 7t [place] [address] Care Team Providers Care Project Development Leader Name Role Phone Umm Coley MD Primary Care Provider + West Meier RN Unavailable [phone] Reason for Visit * Reason Onset Date Comments Appointment 06/15/2023 Encounter Details Date Type Department Care Team ([facility] st Contact Info) Description 06/15/2023 Telephone [facility] ADULT DENTAL [address] [place] [address] Johnny Gonzalez, DMD [address] [place], [place] [phone] Appointment Social History Tobacco Use Types Packs/Day [...] Office Visit [facility] MEDICINE [address] [place] [address] Darrell Myers MD [address] [place] [address] 03/08/2025 10:00 AM EDT Office Visit [facility] ADULT DENTAL [address] [place] [address] Elzbieta, Mariangel [address] [place] [address] 05/02/2025 10:30 AM EDT Office Visit [facility] MEDICINE [address] [place] [address] Umm Coley MD 230 [place] [address] documented as of this encounter Visit Diagnoses Not on filedocumented in this encounter Additional Health Concerns Assessment Noted Time PHQ-9 Depression Total Score: 12 023 1:58 PM EDT documented as of this encounter Care Teams Project Development Leader Relationship Specialty Start Date End Date Umm Coley MD [address] [place] [address] PCP - General Family Medicine 10/31/16 West Meier, BEBA [address] [place] [address] [place] [address] Soda Drier FeederExecutive Secretary 01/12/25 Eva Nunez Soda Drier Feeder 04/05/24 07/06/24 [facility] 05/11/24 11/17/24 [facility] 11/14/24 01/17/25 [employer] 12/08/24 documented as of this encounter
--- OUTSIDE RECORDS SUMMARY | 2025-01-31 08:52 | XMS_ITS | Encounter Summary ---
Author Organization [employer] Address 75 [facility] 7t [place] [address] Care Team Providers Care Coating Inspector Name Role Phone Umm Coley MD Primary Care Provider + West Meier RN Unavailable [phone] Reason for Visit * Reason Comments Med Change Request Encounter Details Date Type Department Care Team ([facility] Contact Info) Description 03/20/2023 Refill [facility] ADULT DENTAL [address] [place] [address] Johnny Gonzalez, WILIAN [address] [place] [address] Social History Tobacco Use Types Packs/Day Years [...] Description 02/03/2025 2:00 PM EDT Office Visit [facility] MEDICINE [address] [place] [address] Darrell Myers MD 230 [place] [address] 03/08/2025 10:00 AM EDT Office Visit [facility] ADULT DENTAL [address] [place] [address] Mariangel Ruff [address] [place] [address] 05/02/2025 10:30 AM EDT Office Visit [facility] MEDICINE [address] [place] [address] Umm Coley MD [address] [place] [address] documented as of this encounter Visit Diagnoses Not on filedocumented in this encounter Care Teams Coating Inspector Relationship Specialty Start Date End Date Umm Coley MD [address] [place] [address] PCP - General Family Medicine 10/31/16 West Meier, BEBA [address] [place] [address] Promotion SpecialistSmoking Tobacco Cutter Operator 01/12/25 Eva Nunez Promotion Specialist 04/05/24 07/06/24 [employer] Caregivers 05/11/24 11/17/24 Mir Caring 11/14/24 01/17/25 T[employer] Oil 12/08/24 documented as of this encounter
--- OUTSIDE RECORDS SUMMARY | 2025-01-31 08:52 | XMS_ITS | Encounter Summary ---
Author Organization [employer] Address 75 [facility] 7t [place] [address] Care Team Providers Care Weight Analyst Name Role Phone Umm Coley MD Primary Care Provider + West Meier RN Unavailable [phone] Reason for Visit * Reason Onset Date Comments Appointment Request 01/27/2025 Encounter Details Date Type Department Care Team ([facility] st Contact Info) Description 01/27/2025 Telephone [facility] MEDICINE 230 [place], [place] [phone] Umm Coley MD 230 [place], [place] [phone] Appointment Request Social History Tobacco Use Types [...] encounter Miscellaneous Notes * Telephone Encounter - Ronny Farrell - 01/27/2025 8:06 AM EDT Tcf from pt requesting a appt with her PCP to talk to her. Pt states that she hasn't seen PCP in a while. Contact pt at [phone] documented in this encounter Plan of Treatment Upcoming Encounters Date Type Department Care Team (Late st Contact Info) Description 02/03/2025 2:00 PM EDT Office Visit [facility] MEDICINE [address] [place] [address] Darrell Myers MD [address] [place] [address] 03/08/2025 10:00 AM EDT Office Visit [facility] ADULT DENTAL [address] [place] [address] Mariangel Ruff [address] [place] [address] 05/02/2025 10:30 AM EDT Office Visit [facility] MEDICINE [address] [place] [address] Umm Coley MD [address] [place] [address] documented as of this encounter Visit Diagnoses Not on filedocumented in this encounter Additional Health Concerns Assessment Noted Time PHQ-9 Depression Total Score: 10 024 9:17 AM EDT documented as of this encounter Care Teams Weight Analyst Relationship Specialty Start Date End Date Umm Coley MD [address] [place] [address] PCP - General Family Medicine 10/31/16 West Meier, BEBA [address] [place] [address] Ski Top TrimmerWebsphere Developer 01/12/25 [employer] 12/08/24 documented as of this encounter
--- OUTSIDE RECORDS SUMMARY | 2025-01-31 08:52 | XMS_ITS | Encounter Summary ---
Author Organization [employer] Address [address] [place] [address] 7t [place] [address] Care Team Providers Care Weed Thinner Name Role Phone Umm Coley MD Primary Care Provider + eWst Meier RN Unavailable [phone] Encounter Details Date Type Department Care Team ([facility] Contact Info) Description 03/05/2023 Orders Only [facility] MED[facility]INE [address] [place] [address] Umm Coley MD [address] [place] [address] [phone] Social History Tobacco Use Types Packs/Day Years [...] PM EDT Office Visit [facility] [address] [place] [address] [phone] Darrell Myers MD [address] [place] [address] 03/08/2025 10:00 AM EDT Office Visit [facility] ADULT DENTAL [address] [place] [address] Mariangel Ruff [address] [place] [address] 05/02/2025 10:30 AM EDT Office Visit [facility] MEDICINE [address] [place] [address] Umm Coley MD [address] [place] [address] documented as of this encounter Visit Diagnoses Not on filedocumented in this encounter Care Teams Weed Thinner Relationship Specialty Start Date End Date Umm Coley MD [address] [place] [address] PCP - General Family Medicine 10/31/16 West Meier, BEBA [address] [place] [address] Puller OverCore Stacker 01/12/25 Eva Nunez Puller Over 04/05/24 07/06/24 [employer] [facility] 05/11/24 11/17/24 Ja[employer]anara Caring 11/14/24 01/17/25 [employer] 12/08/24 documented as of this encounter
--- OUTSIDE RECORDS SUMMARY | 2025-01-31 08:52 | XMS_ITS | Encounter Summary ---
Author Organization [employer] Address 75 [facility] 7t [place] [address] Care Team Providers Care Building Supervisor Name Role Phone Umm Coley MD Primary Care Provider + West Meier RN Unavailable [phone] Reason for Visit * Reason Comments Med Change Request Encounter Details Date Type Department Care Team ([facility] Contact Info) Description 03/20/2023 Refill [facility] ADULT DENTAL [address] [place] [address] Johnny Gonzalez DMD 505 [place] [address] Social History Tobacco Use Types Packs/Day Years [...] [facility] MEDICINE [address] [place] [address] Darrell Myers MD 230 [place] [address] 03/08/2025 10:00 AM EDT Office Visit [facility] ADULT DENTAL [address] [place] [address] Mariangel Ruff [address] [place] [address] 05/02/2025 10:30 AM EDT Office Visit [facility] MEDICINE [address] [place] [address] Umm Coley MD [address] [place] [address] documented as of this encounter Visit Diagnoses Not on filedocumented in this encounter Care Teams Building Supervisor Relationship Specialty Start Date End Date Umm Coley MD [address] [place] [address] PCP - General Family Medicine 10/31/16 West Meier, BEBA [address] [place] [address] Can Filling And Closing Machine TenderFruit Picker 01/12/25 Eva Nunez Can Filling And Closing Machine Tender 04/05/24 07/06/24 [facility] [facility] 05/11/24 11/17/24 [facility] 11/14/24 01/17/25 [employer] 12/08/24 documented as of this encounter
--- OUTSIDE RECORDS SUMMARY | 2025-01-31 08:52 | XMS_ITS | Encounter Summary ---
Author Organization [facility] Address [address] [place] [address] 7t [place] [address] Care Team Providers Care Cream Cheese Maker Name Role Phone Umm Coley MD Primary Care Provider + West Meier RN Unavailable [phone] Reason for Visit * Reason Comments Med Refill Encounter Details Date Type Department Care Team (Late Contact Info) Description 06/10/2023 Refill [facility] MEDICINE [address] [place] [address] Yenny Morris MD [address] [place], [place] [phone] Rash Social History Tobacco Use Types Packs/Day [...] Upcoming Encounters Date Type Department Care Team ([facility] Contact Info) Description 02/03/2025 2:00 PM EDT Office Visit [facility] MEDICINE [address] [place], [place] [phone] Darrell Myers MD [address] [place] [address] 03/08/2025 10:00 AM EDT Office Visit [facility] ADULT DENTAL [address] [place], [place] [phone] Mariangel Ruff [address] [place], [place] [phone] 05/02/2025 10:30 AM EDT Office Visit [facility] MEDICINE [address] [place] [address] [phone] Umm Coley MD [address] [place] [address] [phone] documented as of this encounter Visit Diagnoses Diagnosis Rash Rash and other nonspecific skin eruption documented in this encounter Additional Health Concerns Assessment Noted Time PHQ-9 Depression Total Score: 12 023 1:58 PM EDT documented as of this encounter Care Teams Cream Cheese Maker Relationship Specialty Start Date End Date Umm Coley MD [address] [place] [address] PCP - General Family Medicine 10/31/16 West Meier, BEBA [address] [place] [address] ScabblerPolystyrene Molding Machine Tender 01/12/25 Eva Nunez Scabbler 04/05/24 07/06/24 [employer] [facility] 05/11/24 11/17/24 Ja[employer]an[facility] Caring 11/14/24 01/17/25 [employer] 12/08/24 documented as of this encounter
--- OUTSIDE RECORDS SUMMARY | 2025-01-31 08:52 | XMS_ITS | Encounter Summary ---
Author Organization [employer] [facility] Address [address] [place] [address] 7t [place] [address] Care Team Providers Care Attendant Arcade Name Role Phone Umm Coley MD Primary Care Provider + West Meier RN Unavailable [phone] Reason for Visit * Reason Comments Med Refill Encounter Details Date Type Department Care Team ([facility] Contact Info) Description 02/05/2023 Refill [facility] MEDICINE [address] [place], [place] [phone] Umm Coley MD [address] [place], [place] [phone] Arthritis of knee Social History Tobacco Use [...] Upcoming Encounters Date Type Department Care Team ([facility] Contact Info) Description 02/03/2025 2:00 PM EDT Office Visit [facility] MEDICINE [address] [place] [address] Darrell Myers MD [address] [place] [address] 03/08/2025 10:00 AM EDT Office Visit [facility] ADULT DENTAL [address] [place] [address] Trino Ruffaris [address] [place] [address] 05/02/2025 10:30 AM EDT Office Visit [facility] MEDICINE [address] [place] [address] Umm Coley MD [address] [place] [address] [phone] documented as of this encounter Visit Diagnoses Diagnosis Arthritis of knee Unspecified arthropathy, lower leg documented in this encounter Care Teams Attendant Arcade Relationship Specialty Start Date End Date Umm Coley MD [address] [place] [address] PCP - General Family Medicine 10/31/16 West Meier, BEBA [address] [place] [address] Frame CleanerCredit Collections Specialist 01/12/25 Eva Nunez Frame Cleaner 04/05/24 07/06/24 [employer] [facility] 05/11/24 11/17/24 Ja[employer]an[employer] Caring 11/14/24 01/17/25 [employer] 12/08/24 documented as of this encounter
--- OUTSIDE RECORDS SUMMARY | 2025-01-31 08:52 | XMS_ITS | Encounter Summary ---
Author Organization [employer] Address 75 [facility] 7t [place] [address] Care Team Providers Care Biological Sciences Professor Name Role Phone Umm Coley MD Primary Care Provider + West Meier RN Unavailable [phone] Reason for Visit * Reason Onset Date Comments Appointment 03/17/2023 Encounter Details Date Type Department Care Team ([facility] st Contact Info) Description 03/17/2023 Telephone [facility] ADULT DENTAL [address] [place] [address] Johnny Gonzalez, WILIAN [address] [place], [place] [phone] Appointment Social History Tobacco Use Types Packs/Day [...] EDT Office Visit [facility] MEDICINE [address] [place] [address] Darrell Myers MD [address] [place] [address] 03/08/2025 10:00 AM EDT Office Visit [facility] ADULT DENTAL [address] [place] [address] Trino Ruffaris [address] [place] [address] 05/02/2025 10:30 AM EDT Office Visit [facility] MEDICINE [address] [place] [address] Umm Coley MD [address] [place] [address] documented as of this encounter Visit Diagnoses Not on filedocumented in this encounter Care Teams Biological Sciences Professor Relationship Specialty Start Date End Date Umm Coley MD [address] [place] [address] PCP - General Family Medicine 10/31/16 West Meier, BEBA [address] [place] [address] Charter Boat OperatorReading Recovery Teacher 01/12/25 Eva Nunez Charter Boat Operator 04/05/24 07/06/24 [employer] [facility] 05/11/24 11/17/24 [facility] 11/14/24 01/17/25 [email or web address] 12/08/24 documented as of this encounter
--- OUTSIDE RECORDS SUMMARY | 2025-01-31 08:52 | XMS_ITS | Encounter Summary ---
Author Organization [employer] Address 75 [facility] 7t [place] [address] Care Team Providers Care Night Guard Name Role Phone Umm Coley MD Primary Care Provider + West Meier RN Unavailable [phone] Reason for Visit * Reason Onset Date Comments Appointment 02/24/2023 Encounter Details Date Type Department Care Team ([facility] st Contact Info) Description 02/24/2023 Telephone [facility] ADULT DENTAL [address] [place] [address] Johnny Gonzalez, WILIAN [address] [place] [address] Appointment Social History Tobacco Use Types Packs/Day [...] EDT Office Visit [facility] MEDICINE [address] [place] [address] Darrell Myers MD [address] [place] [address] 03/08/2025 10:00 AM EDT Office Visit [facility] ADULT DENTAL [address] [place] [address] Mariangel Ruff [address] [place] [address] 05/02/2025 10:30 AM EDT Office Visit [facility] MEDICINE [address] [place] [address] Umm Coley MD [address] [place] [address] documented as of this encounter Visit Diagnoses Not on filedocumented in this encounter Care Teams Night Guard Relationship Specialty Start Date End Date Umm Coley MD [address] [place] [address] PCP - General Family Medicine 10/31/16 West Meier, BEBA [address] [place] [address] Line Installation SupervisorIcer Machine 01/12/25 Eva Nunez Line Installation Supervisor 04/05/24 07/06/24 [employer] [facility] 05/11/24 11/17/24 Ja[employer]an[employer] Caring 11/14/24 01/17/25 [employer] 12/08/24 documented as of this encounter
--- OUTSIDE RECORDS SUMMARY | 2025-01-31 08:52 | XMS_ITS | Encounter Summary ---
Author Organization [employer] [facility] Address [address] [facility] 7t [place] [address] Care Team Providers Care Securities Broker Name Role Phone Umm Coley MD Primary Care Provider + West Meier RN Unavailable [phone] Reason for Visit * Reason Comments Med Refill Encounter Details Date Type Department Care Team ([facility] st Contact Info) Description 05/21/2023 Refill [facility] 230 [place], [place] [phone] Umm Coley MD [address] [place], [place] [phone] Arthritis of knee Social History Tobacco Use [...] [facility] [address] [place] [address] Darrell Myers MD [address] [place] [address] 03/08/2025 10:00 AM EDT Office Visit [facility] ADULT D[facility]AL [address] [place] [address] Elzbieta, Mariangel [address] [place] [address] 05/02/2025 10:30 AM EDT Office Visit [facility] MED[facility] [address] [place] [address] Umm Coley MD [address] [place] [address] documented as of this encounter Visit Diagnoses Diagnosis Arthritis of knee Unspecified arthropathy, lower leg documented in this encounter Additional Health Concerns Assessment Noted Time PHQ-9 Depression Total Score: 12 023 1:58 PM EDT documented as of this encounter Care Teams Securities Broker Relationship Specialty Start Date End Date Umm Coley MD [address] [place] [address] PCP - General Family Medicine 10/31/16 West Meier, RN [address] [place] [address] Manager RecruitingIncident Handler 01/12/25 Eva Nunez Manager Recruiting 04/05/24 07/06/24 [employer] [facility] 05/11/24 11/17/24 Jaquanara Caring 11/14/24 01/17/25 [employer] 12/08/24 documented as of this encounter
--- OUTSIDE RECORDS SUMMARY | 2025-01-31 08:52 | XMS_ITS | Encounter Summary ---
Author Organization [employer] Address 75 [facility] 7t [place] [address] Care Team Providers Care Fitness Professional Name Role Phone Umm Coley MD Primary Care Provider + West Meier RN Unavailable Reason for Visit * Reason Onset Date Comments Appointment Request 01/27/2025 Encounter Details Date Type Department Care Team ([facility] st Contact Info) Description 01/27/2025 Telephone [facility] MEDICINE 230 [place], [place] [phone] Umm Coley MD 230 [place], [place] [phone] Appointment Request Social History Tobacco Use Types [...] Telephone Encounter - Juana Connor MA - 01/27/2025 2:11 PM EDT Tc to pt to schedule requested appt with PCP. Appt has been scheduled for 05/02/25 at 10:30 am. documented in this encounter Plan of Treatment Upcoming Encounters Date Type Department Care Team (Late st Contact Info) Description 02/03/2025 2:00 PM EDT Office Visit [facility] MEDICINE [address] [place] [address] Darrell Myers MD [address] [place] [address] 03/08/2025 10:00 AM EDT Office Visit [facility] ADULT DENTAL [address] [place] [address] Mariangel Ruff [address] [place] [address] 05/02/2025 10:30 AM EDT Office Visit [facility] MEDICINE [address] [place] [address] Umm Coley MD [address] [place] [address] documented as of this encounter Visit Diagnoses Not on filedocumented in this encounter Additional Health Concerns Assessment Noted Time PHQ-9 Depression Total Score: 10 024 9:17 AM EDT documented as of this encounter Care Teams Fitness Professional Relationship Specialty Start Date End Date Umm Coley MD [address] [place] [address] PCP - General Family Medicine 10/31/16 West Meier, BEBA [address] [place] [address] Overlock Sewing Machine OperatorCarpenter And Joiner 01/12/25 [employer] 12/08/24 documented as of this encounter
[2025-01-31 09:19] LABS: Basophils Percent Auto 0.5 % (0-2); Eosinophils Absolute Auto 0.1 X10*3/uL (0.0-0.4); Eosinophils Percent Auto 1.1 % (0-4); Hematocrit 38.8 % (37.0-47.0); Hemoglobin 12.9 g/dl (12.0-16.0); Imm Gran Abs Auto 0.02 X10*3/uL (0.00-0.03); Imm Gran Pct Auto 0.3 % (0.0-0.4); Lymphocytes Absolute Auto 1.5 X10*3/uL (1.2-4.9); Lymphocytes Percent Auto 22.7 % (20-40); Mean Corpuscular HGB Conc 33.2 g/dl (31.0-35.0); Mean Corpuscular Hemoglobin 30.6 pg (27.0-33.0); Mean Corpuscular Volume 92.2 fL (80.0-98.0); Monocytes Absolute Auto 0.4 X10*3/uL (0.1-1.2); Monocytes Percent Auto 5.9 % (2-11); Neutrophils Absolute Auto 4.4 x10*3/uL (2.0-8.3); Neutrophils Percent Auto 69.5 % (45-73); Platelet Count 312 X10*3/uL (160-400); Red Blood Count 4.21 X10*6/uL (4.20-5.50); Red Cell Distribution Width 13.2 % (11.0-16.0); White Blood Count 6.4 X10*3/uL (4.8-10.8)
[2025-01-31 10:13] LABS: Cholesterol 213 mg/dL (<200); HDL Cholesterol 72 mg/dL (>40); Iron 47 mcg/dL (30-160); LDL Cholesterol Calculated 128 mg/dL (<100); Magnesium 2.1 mg/dL (1.6-2.6); Percent Iron Saturation 18 % (15-50); Total Iron Binding Capacity 268 mcg/dL (228-428); Triglycerides 69 mg/dL (<150); Unsaturated Iron Binding 221 ug/dL
[2025-01-31 10:17] LABS: TSH reflex Free T4 2.06 uIU/mL (0.32-4.0); Vitamin D 25-OH Total 39.3 ng/mL (>30)
[2025-01-31 10:23] LABS: Ferritin 161 ng/mL (10-250)
[2025-01-31 10:33] LABS: Folate 11.1 ng/mL (> or = 4.0); Vitamin B12 644 pg/mL (200-900)
[2025-01-31 11:13] LABS: Reflex LDLD? No
[2025-02-01 17:48] LABS: Homocysteine 11.1 umol/L (<10.4)
[2025-02-04 05:24] LABS: Methylmalonic Acid 132 nmol/L (69-390)
[2025-02-04 06:03] LABS: Amitriptyline, Serum <5 mcg/L; Nortriptyline, Serum <5 mcg/L; Total (Ami+Nor) <5 mcg/L (100-250)
== END 2025-01-31 08:31 | disposition home or self-care (01) ==
LOC: HO.LAB 08:30
PROVIDERS: Nurse Practitioner Family; PCP Internal Medicine; Visit Provider Internal Medicine
DX: K76.0 Fatty (change of) liver, not elsewhere classified (principal); G62.9 Polyneuropathy, unspecified; R25.2 Cramp and spasm; R20.2 Paresthesia of skin; D64.9 Anemia, unspecified; R42 Dizziness and giddiness; G43.909 Migraine, unspecified, not intractable, without status migrainosus; M79.641 Pain in right hand
CPT/HCPCS: 36415; 80061; 80335; 82306; 82607; 82728; 82746; 83090; 83540; 83735; 83921; 84443; 85025

== ENCOUNTER 2025-02-01 14:02 | Outpatient (AMB) | payer MEDICAID, SELFPAY ==
--- NOTE | 2025-02-01 14:43 | MHC.OFFVIS ---
Intake Visit Reasons: PO-Rt Distal Radius ORIF & CTR 01/02/25-cast off Intake Note: Diana is a 59 year old right hand dominant female who presents today post-operatively status post right distal radius fracture ORIF and right carpal tunnel release DOS: 01/02/[address] Cleveland. Cast removed. States she has pain, numbness and a sharp shooting pain in finger. Allergies codeine [CODEINE] Allergy (Intermediate, Verified 02/01/25 14:44) DIZZY/NAUSEA, nausea/vomiting escitalopram [From LEXAPRO] Allergy (Intermediate, Verified 02/01/25 14:44) ? NAUSEA meperidine [MEPERIDINE] Allergy (Intermediate, Verified 02/01/25 14:44) NAUSEA morphine [MORPHINE] Allergy (Intermediate, Verified 02/01/25 14:44) PALPITATIONS, palpitation oxycodone [OXYCODONE] Allergy (Intermediate, Verified 02/01/25 14:44) PALPATATIONS, palpitations tramadol Allergy (Unknown, Verified 02/01/25 14:44) dizziness, nausea HPI HPI PO-Rt Distal Radius ORIF & CTR 01/02/25-cast off: Details: Diana is a 59 year old right hand dominant female who presents today post-operatively status post right distal radius fracture ORIF and right carpal tunnel release DOS: 01/02/[address] Cleveland. Cast removed. States she has pain, numbness and a sharp shooting pain in finger. There is noted to be redness noted on both the radial and ulnar styloid in the dorsal aspect of the right wrist. [facility] Medical History Primary osteoarthritis of right hand Migraine Right shoulder pain Rotator cuff tendinitis Arthritis of right shoulder region Right hand pain Breast cancer, right Status post radiation therapy Anemia Diarrhea Depression Somatization disorder Migraine equivalent syndrome Anxiety Periodontal disease Fibromyalgia Surgical History History of esophagogastroduodenoscopy (EGD) History of lumpectomy Hx of section Hx of shoulder surgery Hx of colonoscopy Family History Mother HTN (hypertension) Sister Breast cancer Bone cancer Colon polyps Sister Osteoporosis Hypercholesteremia Colon polyps Social History Household Members: None Housing: Apartment Are you a primary child care assistant to a significant other at home: No Do you presently have visiting nurse or other home services: No Alcohol intake: never Patient Tobacco Use Status: Former Tobacco user Years Smoked: 3 service: No Current occupational status: disabled 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 Review of Systems Const All systems reviewed & are unremarkable except as noted in HPI and below Physical Exam Extrem Other: Incision sites on R wrists well approximated, well healing, no evidence of infection No evidence of surrounding erythema However, there is erythema noted on the dorsal radial styloid and ulnar styloid There is some mild ecchymosis noted just proximal to the previous splint on the right wrist, primarily on the volar side of the forearm Patient does experience significant stiffness in the digits of the right hand, but the patient states that this is present long before surgery Patient was only able to supinate to approximately 20 degrees past neutral, pronation full and intact Compartments soft, nontender Distal sensation intact Capillary refill brisk Results Reviewed Results Reviewed: X-rays obtained in the office today and independently reviewed by me, Zhou Sosa PA-C, demonstrate surgically reduced fracture of the right distal radius with orthopedic hardware in satisfactory clinical alignment. Assessment & Plan Assessment & Plan (1) Fracture of right distal radius: Code(s): S52.501A - Unspecified fracture of the lower end of right radius, initial encounter for closed fracture Category: Medical Plan 1. Status post right distal radius ORIF DOS 01/02/2025 Patient appears to be recovering postoperatively Patient is educated typical recovery course This time, patient was removed from a cast and given a Velcro wrist splint to wear with daytime activities Patient was advised she should remove the splint while at rest to begin working on gentle range of motion of the right wrist and hand Due to the nature of the patient's significant stiffness, I have also placed a referral to occupational therapy for early range of motion and gentle strengthening of the right wrist with a 2 lb weight limit, as I feel this would benefit the patient tremendously, as I am not sure she is working on range of motion at home adequately Out of an abundance of caution for the redness noted on the dorsal wrist, patient was given a one-week course of Augmentin Patient was amenable to this plan Orders: Orders XR wrist RT min 3V 02/01/25 M25.531 - Pain in right wrist OT Evaluation and Treatment 02/01/25 S52.501A - Unspecified fracture of the lower end of right radius, initial encounter for closed fracture Medications: New amoxicillin-pot clavulanate 875-125 mg 1 tab PO BID 14 tabs 0RF 7 days Coding Level of Care Code Global (71330) Diagnoses Fracture of right distal radius S52.501A
--- OUTSIDE RECORDS SUMMARY | 2025-02-01 16:48 | XMS_ITS | Encounter Summary ---
Author Organization [employer] [facility] Address [address] [place] [address] 7[address] [place] [address] Care Team Providers Care Fur Finisher Name Role Phone Umm Coley MD Primary Care Provider + West Meier RN Unavailable [phone] Reason for Visit * Reason Comments Med Refill Encounter Details Date Type Department Care Team (Late Contact Info) Description 06/10/2023 Refill [facility] [address] [place] [address] Yenny Morris MD [address] [place], [place] [phone] Rash Social History Tobacco Use Types Packs/Day [...] Upcoming Encounters Date Type Department Care Team ([facility] Contact Info) Description 02/03/2025 2:00 PM EDT Office Visit [facility] [address] [place], [place] [phone] Darrell Myers MD [address] [place] [address] 03/08/2025 10:00 AM EDT Office Visit [facility] ADULT DENTAL [address] [place], [place] [phone] Mariangel Ruff [address] [place], [place] [phone] 05/02/2025 10:30 AM EDT Office Visit [facility] [address] [place] [address] [phone] Umm Coley MD [address] [place] [address] [phone] documented as of this encounter Visit Diagnoses Diagnosis Rash Rash and other nonspecific skin eruption documented in this encounter Additional Health Concerns Assessment Noted Time PHQ-9 Depression Total Score: 12 023 1:58 PM EDT documented as of this encounter Care Teams Fur Finisher Relationship Specialty Start Date End Date Umm Coley MD [address] [place] [phone] PCP - General Family Medicine 10/31/16 West Meier, BEBA [address] [place] [phone] GardenerGui Developer 01/12/25 Eva Nunez Gardener 04/05/24 07/06/24 [employer] 05/11/24 11/17/24 [facility] 11/14/24 01/17/25 [employer] [id number]-[email or web address] 12/08/24 documented as of this encounter
--- OUTSIDE RECORDS SUMMARY | 2025-02-01 16:48 | XMS_ITS | Encounter Summary ---
Author Organization [employer] Address [address] [place] [address] Care Team Providers Care Manager Fixed Income Name Role Phone Umm Coley MD Primary Care Provider + West Meier RN Unavailable Reason for Visit * Reason Onset Date Comments pre med prior to dental treatment 08/23/2024 Encounter Details Date Type Department Care Team (Late st Contact Info) Description 08/23/2024 Telephone [facility] CHC ADULT DENTAL [address] [place] [address] Johnny Gonzalez, DMD [address] [place], [place] [phone] pre med prior to dental treatment Social [...] also spoke with Nina in the front maker with a run through of what was happening with the patient and she stated she would also send something to provider for clarificationDR documented in this encounter Plan of Treatment Upcoming Encounters Date Type Department Care Team (Late st Contact Info) Description 02/03/2025 2:00 PM EDT Office Visit [facility] MEDICINE [address] [place] [address] [phone] Darrell Myers MD [address] [place] [address] [phone] 03/08/2025 10:00 AM EDT Office Visit [facility] ADULT DENTAL [address] [place] [phone] Trino Ruffaris [address] [place] [address] 05/02/2025 10:30 AM EDT Office Visit [facility] MEDICINE [address] [place] [phone] Umm Coley MD [address] [place] [address] [phone] documented as of this encounter Visit Diagnoses Not on filedocumented in this encounter Additional Health Concerns Assessment Noted Time PHQ-9 Depression Total Score: 10 024 9:17 AM EDT documented as of this encounter Care Teams Manager Fixed Income Relationship Specialty Start Date End Date Umm Coley MD [address] [place] [phone] PCP - General Family Medicine 10/31/16 West Meier, RN [address] [place] [phone] Live In HousekeeperDistrict Recruiter 01/12/25 [employer] [facility] 05/11/24 11/17/24 [facility] 11/14/24 01/17/25 [employer] 12/08/24 documented as of this encounter
--- OUTSIDE RECORDS SUMMARY | 2025-02-01 16:48 | XMS_ITS | Encounter Summary ---
Author Organization [facility] Address [address] [place] [address] 7t [place] [address] Care Team Providers Care Panelboard Operator Name Role Phone Umm Coley MD Primary Care Provider + West Meier RN Unavailable [phone] Reason for Visit * Reason Comments Med Refill Encounter Details Date Type Department Care Team (Late Contact Info) Description 08/01/[address] [facility] MEDICINE [address] [place], [place] [phone] Umm Coley MD [address] [place], [place] [phone] Social History Tobacco Use Types Packs/Day Years [...] Upcoming Encounters Date Type Department Care Team ([facility] Contact Info) Description 02/03/2025 2:00 PM EDT Office Visit [facility] MEDICINE [address] [place], [place] [phone] Darrell Myers MD [address] [place] [address] 03/08/2025 10:00 AM EDT Office Visit [facility] ADULT DENTAL [address] [place], [place] [phone] Mariangel uRff [address] [place], [place] [phone] 05/02/2025 10:30 AM EDT Office Visit [facility] MEDICINE [address] [place], [place] [phone] Umm Coley MD [address] [place] [address] [phone] documented as of this encounter Visit Diagnoses Not on filedocumented in this encounter Additional Health Concerns Assessment Noted Time PHQ-9 Depression Total Score: 12 023 1:58 PM EDT documented as of this encounter Care Teams Panelboard Operator Relationship Specialty Start Date End Date Umm Coley MD [address] [place] [phone] PCP - General Family Medicine 10/31/16 West Meier, RN [address] [place] [phone] Heating And Ventilating TenderTrades Helper 01/12/25 Eva Nunez Heating And Ventilating Tender 04/05/24 07/06/24 [facility] 05/11/24 11/17/24 [facility] 11/14/24 01/17/25 [employer] 12/08/24 documented as of this encounter
--- OUTSIDE RECORDS SUMMARY | 2025-02-01 16:48 | XMS_ITS | Encounter Summary ---
Author Organization [employer] Address [address] [facility] 7t [place] [address] Care Team Providers Care Manufacturing Process Engineer Name Role Phone Umm Coley MD Primary Care Provider + West Meier RN Unavailable [phone] Reason for Visit * Reason Onset Date Comments appt 01/08/2024 Encounter Details Date Type Department Care Team ([facility] st Contact Info) Description 01/08/2024 Telephone [facility] ADULT DENTAL [address] [place] [address] Homer Strong, DMD [address] [place] [address] appt Social History Tobacco Use Types Packs/Day [...] PM EDT Office Visit [facility] [address] [place] [phone] Darrell Myers MD [address] [place] [address] 03/08/2025 10:00 AM EDT Office Visit [facility] ADULT DENTAL [address] [place], [place] [phone] Mariangel Ruff [address] [place] [address] 05/02/2025 10:30 AM EDT Office Visit [facility] [address] [place] [phone] Umm Coley MD [address] [place] [address] documented as of this encounter Visit Diagnoses Not on filedocumented in this encounter Additional Health Concerns Assessment Noted Time PHQ-9 Depression Total Score: 21 024 11:31 AM EST documented as of this encounter Care Teams Manufacturing Process Engineer Relationship Specialty Start Date End Date Umm Coley MD [address] [place] [address] PCP - General Family Medicine 10/31/16 West Meier RN [address] [place] [phone] Lipcoat SprayerMaterial Controller 01/12/25 Eva Nunez Lipcoat Sprayer 04/05/24 07/06/24 [facility] 05/11/24 11/17/24 [facility] 11/14/24 01/17/25 [employer] 12/08/24 documented as of this encounter
--- OUTSIDE RECORDS SUMMARY | 2025-02-01 16:48 | XMS_ITS | Clinical Summary ---
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 1965Acct:[id number] Age/Sex: 59 / FADM Date: 12/23/24 Loc: HO.ED Attending Dr: Ordering Physician: Diomedes Shultz Date of Service: 12/23/24 Procedure(s): XR hip BI w PEL1V Accession Number(s): [id number] cc: Diomedes Shultz; Shalonda Coley MD EXAMINATION: [...] 12/23/24 1543 DD/ 1457 TD/TT: 12/23/24 1533 [facility]: [facility] External Provider IMG XR PROCEDURES Final Result * XR Knee 4+ Views Right (12/23/2024 2:57 PM EST) Anatomical Region Laterality Modality Lower Extremities, Knee Right Radiogra phic Imaging 12/23/2024 2:57 PM EST Narrative 12/23/2024 3:44 PM EST ? [facility] ?[address] ?[place] [address] ?XRay Report ? Signed ? Patient: Myles,Diana L ?MR#: [id number] ?? 8 ? : 1965 ?Acct:[id number] ? Age/Sex: 59 / F ?ADM Date: 12/23/24 ? Loc: HO.ED ? Attending Dr: ? Ordering Physician: Diomedes Shultz ?? Date of Service: 12/23/24 ?? Procedure(s): XR knee RT 4V ?? Accession Number(s): [id number] ? cc: Diomedes Shultz; Shalonda Coley MD [...] DD/ 1457 ? TD/TT: 12/23/24 1533 ? [facility] [employer] [facility]: ? Procedure Note Chin Diana - 12/23/[address] [address] XRay Report Signed Patient: Diana Myles LMR#: [id number] 8 : 1965Acct:[id number] Age/Sex: 59 / FADM Date: 12/23/24 Loc: HO.ED Attending Dr: Ordering Physician: Diomedes Shultz Date of Service: 12/23/24 Procedure(s): XR knee RT 4V Accession Number(s): [id number] cc: Diomedes Shultz; Shalonda Coley MD EXAMINATION: [...] 12/23/24 1541 DD/ 1457 TD/TT: 12/23/24 1533 [facility]: [facility] External Provider IMG XR PROCEDURES Final Result * MR Knee w/o Contrast Left (12/06/2024 6:06 PM EST) Anatomical Region Laterality Modality Magnetic Resonan ce 12/06/2024 6:06 PM EST Narrative 12/08/2024 8:31 AM EST ? [facility] ?[address] ?[place] [address] ? Magnetic Resonance Report ? Signed ? Patient: Myles,Diana L ?MR#: [id number] ?? 8 ? : 1965 ?Acct:[id number] ? Age/Sex: 59 / F ?ADM Date: 12/06/24 ? Loc: HO.MRI ? Attending Dr: Denilson Forman PA-C ? Ordering Physician: Denilson Forman PA-C ?? Date of Service: 12/06/24 ?? Procedure(s): MR knee LT wo con ?? Accession Number(s): [id number] ? cc: Shalonda Coley MD; Denilson Forman [...] DD/ 1806 ? TD/TT: 12/06/24 1817 ? [facility] [employer] [facility]: ? Procedure Note Donlinda, Image - 12/08/2024 [place] [address] Magnetic Resonance Report Signed Patient: Diana Myles LMR#: [id number] 8 : 1965Acct:[id number] Age/Sex: 59 / FADM Date: 12/06/24 Loc: HO.MRI Attending Dr: Denilson Forman PA-C Ordering Physician: Denilson Forman PA-C Date of Service: 12/06/24 Procedure(s): MR knee LT wo con Accession Number(s): [id number] cc: Shalonda Coley MD; Denilson Forman PA-C [...] 12/08/24 0829 DD/ 1806 TD/TT: 12/06/24 1817 [facility]: [facility] External Provider IMG MRI PROCEDURES Final Result * BI Mammogram Screening Tomosynthesis Bilateral (11/29/2024 8:45 AM EST) Anatomical Region Laterality Modality Breast Bilateral Mammography 11/29/2024 8:45 AM EST Narrative 12/07/2024 3:35 PM EST ? [place] [facility] ? [address] ?[place] [address] ? Mammography Report ? Signed ? Patient: Myles,Diana L ?MR#: [id number] ?? 8 ? : 1965 ?Acct:[id number] ? Age/Sex: 59 / F ?ADM Date: 11/29/24 ? Loc: HO.MAMMO ? Attending Dr: Shalonda Coley MD ? Ordering Physician: Shalonda Coley MD ?Results: 2Be ?? nign Findings ? Date of Service: 11/29/24 ?Follow Up: 1 Year From Orig ?? inal Mammogram ? Procedure(s): MM tomosynthesis screening BI ?? Accession Number(s): [id number] ? cc: Shalonda Coley MD ? EXAMINATION: [...] DD/ 0845 ? TD/TT: 11/29/24 0915 ? [facility] [employer]: ? Procedure Note Adalgisa, Image - 12/07/2024 [facility] [address] [place] [address] Mammography Report Signed Patient: Diana Myles LMR#: [id number] 8 : 1965Acct:[id number] Age/Sex: 59 / FADM Date: 11/29/24 Loc: HO.MAMMO Attending Dr: Shalonda Coley MD Ordering Physician: Shalonda Coley MDResults: 2Be nign Findings Date of Service: 11/29/24Follow Up: 1 Year From Orig inal Mammogram Procedure(s): MM tomosynthesis screening BI Accession Number(s): [id number] cc: Shalonda Coley MD EXAMINATION: MM SCREENING [...] Chaparrita Lyn DO 12/07/2024 03:32 PM EST Workstation: [employer] Dictated By: Chaparrita Lyn DO Signed By: <Electronically signed by Chaparrita Lyn DO in OV> 12/07/24 1532 DD/ 0845 TD/TT: 11/29/24 0915 [employer] [facility]: Shalonda Coley MD IMG BI PROCEDURES Edited Result - Final * POCT Rapid RSV ROJAS ID NOW (11/10/2024 2:01 PM EST) RSV Rapid Ag POC Negative Negative Swab 11/10/2024 2:01 PM EST Shalonda Coley MD POINT OF CARE TEST ENTER /EDIT ORDERABLES Final Result * POCT Rapid Influenza B ROJAS ID NOW (11/10/2024 2:01 PM EST) Influenza B Negative Negative, Indeterminate [facility] Swab 11/10/2024 2:01 PM EST Shalonda Coley MD POINT OF CARE TEST ENTER /EDIT ORDERABLES Final Result [facility] [address] [place] [phone] * POCT Rapid Influenza A ROJAS ID NOW (11/10/2024 2:01 PM EST) Pathologist [facility] Influenza A Negative Negative, Indeterminate [facility] Swab 11/10/2024 2:01 PM EST Shalonda Coley MD POINT OF CARE TEST ENTER /EDIT ORDERABLES Final Result Performing Organization Address [facility]/ZIP Co de Phone Number [facility] [address] [place] [phone] * POCT Rapid Covid-19 BinaxNOW (11/10/2024 2:01 PM EST) Pathologist [facility] Rapid COVID Ag Negative Swab 11/10/2024 2:01 PM EST Shalonda Coley MD POINT OF CARE TEST ENTER /EDIT ORDERABLES Final Result * (ABNORMAL) Hm Colonoscopy (07/30/2023) [facility] Colonoscopy Abnormal( A) Normal [facility] Comment:SSL polyp Shalonda Coley MD HEALTH MAINTENANCE Final Result Performing Organization Address [facility] Co de Phone Number [facility] [address] [place] [phone] * Thinprep PAP and HPV nRNA E6/E7 (10/08/2022 9:30 AM EST) [facility] Clinical Information: None given [facility] [employer] LMP: NONE GIVEN [facility] [employer] Prev. PAP: NONE GIVEN [facility] [employer] Prev. BX: NONE GIVEN [facility] [employer] SOURCE: None given [facility] [employer] Statement Of Adequacy: SATISFACTORY FOR EVALUATION Age and/or menstrual status not provided [email or web address] Interpretation/Re sult: [email or web address] Comment: Negative for intraepithelial lesion or malignancy. Atrophic pattern; predominantly parabasal cells [employer] Room: Siria [facility] Comment: DMM, CT(ASCP) CT screening location: [address] ??[address] Review [employer] Room: [facility] [place] [employer] Comment: MARIA TERESA MENENDEZ(ASCP) CT screening location: [address] ??[address] (Always Message) [facility] Comment: EXPLANATORY NOTE: The Pap is a [...] HPV nRNA E6/E7 Not Detected Not Detected [facility] Comment: Methodology: Lean Engineer-Mediated Amplification This assay detects E6/E7 viral messenger RNA (mRNA) from 14 high-risk HPV types (16,18,31,33,35,39,45,51,52,56,58,59,66,68). Cervical sources are required for HPV testing. If a vaginal source from a patient who has had a total hysterectomy with removal of cervix was submitted, please contact the testing laboratory for alternative testing options. For additional information, please refer to http://education.[employer]faq/PHN980k2 (This link if provided for information/ educational purposes only.) 10/08/2022 9:30 AM EST 10/10/2022 1:07 AM EST Narrative [facility] - 10/14/2022 7:08 PM EST FASTING: UNKNOWN Shauna Matamoros [facility] PATHOLOGY ORDERABLES Final Result [address], [place] [address] [facility] [address] [place] [address], [place] [address] * HIV AB/AG (04/30/2022 11:28 AM EDT) [...] detection of this assay. ?? [facility] [employer] HIV Ag/Ab Combo assay result and [...] Hepatitis B Core Antibody Nonreactive Nonreactive [facility] 04/30/2022 11:2 8 AM EDT us Shalonda Coley MD HISTORICAL/NON ORDERABLE LABS Final Result [facility] [address] from Last 3 Months or Most Recently Relevant to Health Maintenance Insurance [employer] C3 [employer] C[employer] [place] AD[place] Care Teams Rfid Specialist Relationship Specialty Start Date End Date Shalonda Coley MD [address] [place] [address] PCP - General Family Medicine 10/31/16 [place] RN [address] [place] [address] [employer] 01/12/25 [employer] 12/08/24
--- OUTSIDE RECORDS SUMMARY | 2025-02-01 16:48 | XMS_ITS | Encounter Summary ---
Author Organization [employer] Address [address] [facility] 7t [place] [address] Care Team Providers Care Teleservices Representative Name Role Phone Umm Coley MD Primary Care Provider + [place] RN Unavailable [phone] Reason for Visit * Reason Onset Date Comments Appointment 06/15/2023 Encounter Details Date Type Department Care Team ([facility] st Contact Info) Description 06/15/2023 Telephone [facility] ADULT DENTAL [address] [place] [address] Johnny Gonzalez, DMD [address] [place], [place] [phone] Appointment Social History Tobacco Use Types Packs/Day [...] Description 02/03/2025 2:00 PM EDT Office Visit [facility] MEDICINE [address] [place] [address] Darrell Myers MD [address] [place] [address] 03/08/2025 10:00 AM EDT Office Visit [facility] ADULT DENTAL [address] [place] [address] Elzbieta, Mariangel [address] [place] [address] 05/02/2025 10:30 AM EDT Office Visit [facility] MED[facility] [address] [place] [address] Umm Coley MD [address] [place] [address] documented as of this encounter Visit Diagnoses Not on filedocumented in this encounter Additional Health Concerns Assessment Noted Time PHQ-9 Depression Total Score: 12 023 1:58 PM EDT documented as of this encounter Care Teams Teleservices Representative Relationship Specialty Start Date End Date Umm Coley MD [address] [place] [phone] PCP - General Family Medicine 10/31/16 [place], BEBA [address] [place] [address] [place] [address] Plate FitterCrew Caller 01/12/25 Eva Nunez Plate Fitter 04/05/24 07/06/24 [employer] [facility] 05/11/24 11/17/24 [facility] 11/14/24 01/17/25 [employer] 12/08/24 documented as of this encounter
--- OUTSIDE RECORDS SUMMARY | 2025-02-01 16:48 | XMS_ITS | Encounter Summary ---
Author Organization [employer] Address [address] [facility] 7t [place] [address] Care Team Providers Care Rv Repair Technician Name Role Phone Umm Coley MD Primary Care Provider + [place] RN Unavailable [phone] Reason for Visit * Reason Onset Date Comments Medication Question 2025 Encounter Details Date Type Department Care Team ([facility] st Contact Info) Description 2025 Telephone [facility] MEDICINE [address] [place], [place] [phone] Umm Coley MD [address] [place], [place] [phone] Medication Question Social History Tobacco Use Types Packs/Day Years [...] encounter Miscellaneous Notes * Telephone Encounter - Yamila Singleton RN - 2025 12:08 PM EDT Call returned to patient. Voicemail left with [facility] contact information. Patient to follow [place] [id number] * Telephone Encounter - Delmy Fernandez - 2025 10:02 AM EDT Tc from pt informing she's been worried due to visiting nurse not knowing how to put mediations together. Pt states theres repeated medication and will like to know if someone can help her out. Stella advised pt to call VNA services agency [employer] and let them know what's going on. Pt inform is not the first time this happens. Please return call [phone] documented in this encounter Plan of Treatment Upcoming Encounters Date Type Department Care Team (Late st Contact Info) Description 02/03/2025 2:00 PM EDT Office Visit [facility] MEDICINE [address] [place] [phone] Darrell Myers MD [address] [place], [place] [phone] 03/08/2025 10:00 AM EDT Office Visit [facility] ADULT DENTAL [address] [place], [place] [phone] Trino Ruffaris [address] [place] [address] 05/02/2025 10:30 AM EDT Office Visit [facility] MED[facility]INE [address] [place] [phone] Umm Coley MD [address] [place] [phone] documented as of this encounter Visit Diagnoses Not on filedocumented in this encounter Additional Health Concerns Assessment Noted Time PHQ-9 Depression Total Score: 10 024 9:17 AM EDT documented as of this encounter Care Teams Rv Repair Technician Relationship Specialty Start Date End Date Umm Coley MD [address] [place] [phone] PCP - General Family Medicine 10/31/16 [place], BEBA [address] [place] [phone] Frame Open[employer] 01/12/25 [employer] 12/08/24 documented as of this encounter
--- OUTSIDE RECORDS SUMMARY | 2025-02-01 16:48 | XMS_ITS | Encounter Summary ---
Author Organization [employer] Address [address] [facility] 7t [place] [address] Care Team Providers Care Travel Agent Name Role Phone Umm Coley MD Primary Care Provider + [place] RN Unavailable [phone] Encounter Details Date Type Department Care Team (Late st Contact Info) Description 01/31/2025 Orders Only GENERIC EXTERNAL DATA DEPARTMENT Provider, Generic External Data Social History Tobacco Use Types Packs/Day Years [...] Description 02/03/2025 2:00 PM EDT Office Visit [facility] MEDICINE [address] [place] [address] Darrell Myers MD [address] [place] [address] 03/08/2025 10:00 AM EDT Office Visit [facility] ADULT DENTAL [address] [place] [address] Elzbieta, Mariangel [address] [place] [address] 05/02/2025 10:30 AM EDT Office Visit [facility] MED[facility]INE [address] [place] [phone] Umm Coley MD [address] [place] [address] documented as of this encounter Procedures Procedure Name Priority Date/Time Associated Diagnosis Comments VITAMIN B12/FOLATE, SERUM PANEL Routine 01/31/2025 8:47 AM EDT CBC WITH AUTO DIFFERENTIAL Routine 01/31/2025 8:47 AM EDT IRON AND TOTAL IRON BINDING CAPACITY Routine 01/31/2025 8:47 AM EDT MAGNESIUM Routine 01/31/2025 8:47 AM EDT FERRITIN Routine 01/31/2025 8:47 AM EDT documented in this encounter Results * Vitamin B12 (Cobalamin) and Folate Panel, Serum (01/31/2025 8:47 AM EDT) Vitamin B12 644 200 - 900 pg/mL [facility] Comment:NORMAL 200-900 PG/ML INDETERMINATE 160-199 PG/ML DEFICIENT < 160 PG/ML Folate 11.1 > or = 4.0 ng/mL [facility] Comment:Reference Values:> o r = 4.0 ng/mL< 4.0 ng/mL suggests folate deficiency Methotrexate, aminopterin and folinic acid(leucovorin) are chemotherapeutic agents whose molecularstructures are similar to folate; therefore, the Architectfolate assay cannot be used for patients using these drugs. 01/31/2025 8:47 AM EDT 01/31/2025 8:47 AM EDT Generic External Data Provider LAB BLOOD ORDERAB LES Final Result Performing Organization Address [facility] Co de Phone Number [facility] [address] [place] [phone] * Ferritin (01/31/2025 8:47 AM EDT) Pathologist [facility] Ferritin 161 10 - 250 ng/mL [facility] 01/31/2025 8:47 AM EDT 01/31/2025 8:47 AM EDT Generic External Data Provider LAB BLOOD ORDERAB LES Final Result Performing Organization Address [facility] Co de Phone Number [facility] [address] [place] [phone] * Iron And Total Iron Binding Capacity (01/31/2025 8:47 AM EDT) Iron 47 30 - 160 mcg/dL [facility] Total Iron Binding Capacity 268 228 - 428 mcg/dL [facility] Percent Iron Saturation 18 15 - 50 % [facility] Unsaturated Iron Binding 221 ug/dL [facility] 01/31/2025 8:47 AM EDT 01/31/2025 8:47 AM EDT us Generic External Data Provider LAB BLOOD ORDERAB LES Final Result Performing Organization Address [facility]/ZIP Co de Phone Number [facility] [address] [place] [address] [phone] * Magnesium (01/31/2025 8:47 AM EDT) Pathologist [facility] Magnesium 2.1 1.6 - 2.6 mg/dL [facility] 01/31/2025 8:47 AM EDT 01/31/2025 8:47 AM EDT us Generic External Data Provider LAB BLOOD ORDERAB LES Final Result Performing Organization Address [facility] de Phone Number [facility] [address] [place] [phone] * (ABNORMAL) CBC auto differential (01/31/2025 8:47 AM EDT) Pathologist [facility] White Blood Count 6.4 4.8 - 10.8 X10*3/uL [facility] Red Blood Count 4.21 4.20 - 5.50 X10*6/uL [facility] Hemoglobin 12.9 12.0 - 16.0 g/dl [facility] Hematocrit 38.8 37.0 - 47.0 % [facility] Mean Corpuscular Volume 92.2 80.0 - 98.0 fL [facility] Mean Corpuscular Hemoglobin 30.6 27.0 - 33.0 pg [facility] Mean Corpuscular HGB Conc 33.2 31.0 - 35.0 g/dl [facility] Red Cell Distribution Width 13.2 11.0 - 16.0 % [facility] Platelet Count 312 160 - 400 X10*3/uL [facility] Mean Platelet Volume 9.0(L) 9.4 - 12.3 fL [facility] Neutrophils Percent Auto 69.5 45 - 73 % [facility] Imm Gran Pct Auto 0.3 0.0 - 0.4 % [facility] Lymphocytes Percent Auto 22.7 20 - 40 % [facility] Monocytes Percent Auto 5.9 2 - 11 % [facility] Eosinophils Percent Auto 1.1 0 - 4 % [facility] Basophils Percent Auto 0.5 0 - 2 % [facility] NRBC Pct Auto 0.0 0.0 - 0.2 /100WBC [facility] Neutrophils Absolute Auto 4.4 2.0 - 8.3 x10*3/uL [facility] Imm Gran Abs Auto 0.02 0.00 - 0.03 X10*3/uL [facility] Lymphocytes Absolute Auto 1.5 1.2 - 4.9 X10*3/uL [facility] Monocytes Absolute Auto 0.4 0.1 - 1.2 X10*3/uL [facility] Eosinophils Absolute Auto 0.1 0.0 - 0.4 X10*3/uL [facility] Basophils Absolute Auto 0.0 0.0 - 0.2 X10*3/uL [facility] NRBC Abs Auto 0.000 0.0 - 0.012 X10*3/uL [facility] 01/31/2025 8:47 AM EDT 01/31/2025 8:47 AM EDT us Generic External Data Provider LAB BLOOD ORDERAB LES Final Result [facility] [address] [place] [address] [phone] documented in this encounter Visit Diagnoses Not on filedocumented in this encounter Additional Health Concerns Assessment Noted Time PHQ-9 Depression Total Score: 10 024 9:17 AM EDT documented as of this encounter Care Teams Travel Agent Relationship Specialty Start Date End Date Umm Coley MD [address] [place] [phone] PCP - General Family Medicine 10/31/16 [place] RN [address] [place] [phone] Vice President Of CommunicationsLog Check Scaler 01/12/25 [employer] 12/08/24 documented as of this encounter
--- OUTSIDE RECORDS SUMMARY | 2025-02-01 16:48 | XMS_ITS | Encounter Summary ---
Author Organization [facility] Address [address] [facility] 7t [place] [address] Care Team Providers Care Resistor Tester Name Role Phone Umm Coley MD Primary Care Provider + West Meier RN Unavailable [phone] Reason for Visit * Reason Comments Med Refill Encounter Details Date Type Department Care Team ([facility] st Contact Info) Description 05/21/2023 Refill [facility] MEDICINE [address] [place], [place] [phone] Umm Coley MD 230 [place], [place] [phone] Arthritis of knee Social History Tobacco Use [...] 02/03/2025 2:00 PM EDT Office Visit [facility] MEDICINE [address] [place] [address] Darrell Myers MD 230 [place] [address] 03/08/2025 10:00 AM EDT Office Visit [facility] ADULT DENTAL [address] [place] [address] Elzbieta, Mariangel [address] [place] [address] 05/02/2025 10:30 AM EDT Office Visit [facility] MEDICINE [address] [place] [address] mUm Coley MD 230 [place] [address] documented as of this encounter Visit Diagnoses Diagnosis Arthritis of knee Unspecified arthropathy, lower leg documented in this encounter Additional Health Concerns Assessment Noted Time PHQ-9 Depression Total Score: 12 023 1:58 PM EDT documented as of this encounter Care Teams Resistor Tester Relationship Specialty Start Date End Date Umm Coley MD 230 [place] [address] PCP - General Family Medicine 10/31/16 West Meier, RN 505 [place] [address] Sales Account ManagerSports Doctor 01/12/25 Eva Nunez Sales Account Manager 04/05/24 07/06/24 [facility] 05/11/24 11/17/24 [facility] 11/14/24 01/17/25 [employer]Bad[employer] 12/08/24 documented as of this encounter
--- OUTSIDE RECORDS SUMMARY | 2025-02-01 16:48 | XMS_ITS | Encounter Summary ---
Author Organization [employer] [facility] Address [address] [place] [address] 7t [place] [address] Care Team Providers Care Band Maker Name Role Phone Umm Coley MD Primary Care Provider + West Meier RN Unavailable [phone] Encounter Details Date Type Department Care Team (Latest Contact Info) Description 11/14/2019 Abstract [facility] CONVERSIONS Dental, Provider, DDS Social History [...] Description 02/03/2025 2:00 PM EDT Office Visit [facility] MEDICINE [address] [place] [address] Darrell Myers MD 230 [place] [address] 03/08/2025 10:00 AM EDT Office Visit [facility] ADULT DENTAL [address] [place] [address] Mariangel Ruff 230 [place] [address] 05/02/2025 10:30 AM EDT Office Visit [facility] MEDICINE [address] [place] [address] Umm Coely MD [address] [place] [address] documented as of this encounter Visit Diagnoses Not on filedocumented in this encounter Care Teams Band Maker Relationship Specialty Start Date End Date Umm Coley MD [address] [place], [place] [phone] PCP - General Family Medicine 10/31/16 West Meier, BEBA 505 [place] [address] Shoemaker ApprenticeWhistle Punk 01/12/25 Eva Nunez Shoemaker Apprentice 04/05/24 07/06/24 [facility] 05/11/24 11/17/24 [facility] 11/14/24 01/17/25 Makara 12/08/24 documented as of this encounter
--- OUTSIDE RECORDS SUMMARY | 2025-02-01 16:48 | XMS_ITS | Encounter Summary ---
Author Organization [employer] [facility] Address [address] [place] [address] 7t [place] [address] Care Team Providers Care Hospital Attendant Name Role Phone Umm Coley MD Primary Care Provider + West Meier RN Unavailable [phone] Encounter Details Date Type Department Care Team (Latest Contact Info) Description 03/13/2022 Abstract [facility] CONVERSIONS Dental, Provider, DDS Social History [...] PM EDT Office Visit [facility] MEDICINE [address] [place] [address] Darrell Myers MD 230 [place] [address] 03/08/2025 10:00 AM EDT Office Visit [facility] ADULT DENTAL [address] [place] [address] Mariangel Ruff [address] [place] [address] 05/02/2025 10:30 AM EDT Office Visit [facility] MEDICINE [address] [place] [address] [phone] Umm Coley MD 230 [place] [address] documented as of this encounter Visit Diagnoses Not on filedocumented in this encounter Care Teams Hospital Attendant Relationship Specialty Start Date End Date Umm Coley MD 230 [place], [place] [phone] PCP - General Family Medicine 10/31/16 West Meier, BEBA [address] [place] [address] Boot TurnerCulture Room Worker 01/12/25 Eva Nunez Boot Turner 04/05/24 07/06/24 [facility] 05/11/24 11/17/24 [facility] 11/14/24 01/17/25 [employer] 12/08/24 documented as of this encounter
--- OUTSIDE RECORDS SUMMARY | 2025-02-01 16:48 | XMS_ITS | Encounter Summary ---
Author Organization [employer] Address 75 [facility] 7t [place] [address] Care Team Providers Care Project Analyst Name Role Phone mUm Coley MD Primary Care Provider + West Meier RN Unavailable [phone] Encounter Details Date Type Department Care Team ([facility] st Contact Info) Description 08/23/2024 Orders Only [facility] ADULT DENTAL [address] [place], [place] [phone] Johnny Gonzalez, DMD [address] [place] [address] Social History Tobacco Use Types Packs/Day Years [...] 2:00 PM EDT Office Visit [facility] MEDICINE [address] [place] [address] Darrell Myers MD [address] [place] [address] 03/08/2025 10:00 AM EDT Office Visit [facility] ADULT DENTAL [address] [place] [address] Elzbieta, Mariangel 230 [place] [address] 05/02/2025 10:30 AM EDT Office Visit [facility] MEDICINE [address] [place] [address] Umm Coley MD [address] [place] [address] documented as of this encounter Visit Diagnoses Not on filedocumented in this encounter Additional Health Concerns Assessment Noted Time PHQ-9 Depression Total Score: 10 024 9:17 AM EDT documented as of this encounter Care Teams Project Analyst Relationship Specialty Start Date End Date Umm Coley MD [address] [place] [address] PCP - General Family Medicine 12/30/16 West Meier, RN [address] [place] [address] Cupola Patcher HelperNetwork Technical Analyst 01/12/25 [facility] 05/11/24 11/17/24 [facility] 11/14/24 01/17/25 Kior 12/08/24 documented as of this encounter
--- OUTSIDE RECORDS SUMMARY | 2025-02-01 16:48 | XMS_ITS | Encounter Summary ---
Author Organization [employer] Address [address] [facility] 7t [place] [address] Care Team Providers Care Chest Painting And Sealing Supervisor Name Role Phone Umm Coley MD Primary Care Provider + West Meier RN Unavailable [phone] Reason for Visit * Reason Onset Date Comments Care Management 01/31/2025 C3CM- Follow up call # 2/ appt reminder/ LVM Encounter Details Date Type Department Care Team ([facility] st Contact Info) Description 01/31/2025 Telephone [facility] MEDICINE [address] [place], [place] [phone] Umm Coley MD 230 [place], [place] [phone] Care Management (C3CM- Follow up call # 2/ appt reminder/ LVM) Social History Tobacco Use Types Packs/Day Years [...] Telephone Encounter - West Meier RN - 01/31/2025 2:57 PM EDT CM West Meier RN placed outbound call to patient for follow up call. No answer at this time. LVMin Montenegrin introducing myself from [facility] CM Department. Requested call back. CM reinforced direct contact information for any additional questions or concerns. Education provided on [facility] located in [facility] of [facility]. Patient provided with after-hours line for [facility], , which offer nighttime triage service and option to transfer to personal lines sales executive providerif needed. CM will attempt another follow up call within 10 days. documented in this encounter Plan of Treatment Upcoming Encounters Date Type Department Care Team (Late st Contact Info) Description 02/03/2025 2:00 PM EDT Office Visit [facility] MEDICINE [address] [place] [address] Darrell Myers MD 230 [place] [address] 03/08/2025 10:00 AM EDT Office Visit [facility] ADULT DENTAL [address] [place], [place] [phone] Trino Ruffaris [address] [place] [address] 05/02/2025 10:30 AM EDT Office Visit [facility] MEDICINE [address] [place], [place] [phone] Umm Coley MD [address] [place] [address] [phone] documented as of this encounter Visit Diagnoses Not on filedocumented in this encounter Additional Health Concerns Assessment Noted Time PHQ-9 Depression Total Score: 10 024 9:17 AM EDT documented as of this encounter Care Teams Chest Painting And Sealing Supervisor Relationship Specialty Start Date End Date Umm Coley MD [address] [place] [address] PCP - General Family Medicine 10/31/16 West Meier, BEBA [address] [place] [address] Bar StaffElevator Examiner And Adjuster 01/12/25 [employer] 12/08/24 documented as of this encounter
--- OUTSIDE RECORDS SUMMARY | 2025-02-01 16:48 | XMS_ITS | Encounter Summary ---
Author Organization [facility] Address [address] [place] [address] 7t [place] [address] Care Team Providers Care Patient Liaison Name Role Phone Umm Coley MD Primary Care Provider + West Meier RN Unavailable [phone] Encounter Details Date Type Department Care Team (Late st Contact Info) Description 09/24/2022 Abstract [facility] ADULT DENTAL [address] [place] [address] Dental, Provider, DDS Social History Tobacco Use [...] 2:00 PM EDT Office Visit [facility] MEDICINE [address] [place] [address] Darrell Myers MD 230 [place] [address] 03/08/2025 10:00 AM EDT Office Visit [facility] ADULT DENTAL [address] [place] [address] Mariangel Ruff [address] [place] [address] 05/02/2025 10:30 AM EDT Office Visit [facility] MEDICINE [address] [place] [address] Umm Coley MD [address] [place] [address] documented as of this encounter Procedures Procedure [...] on filedocumented in this encounter Care Teams Patient Liaison Relationship Specialty Start Date End Date Umm Coley MD [address] [place] [address] PCP - General Family Medicine 10/31/16 West Meier, RN 505 [place] [address] Technical Administrative AssistantDrop Board Worker 01/12/25 Eva Nunez Technical Administrative Assistant 04/05/24 07/06/24 [facility] 05/11/24 11/17/24 [facility] 11/14/24 01/17/25 [employer] 12/08/24 documented as of this encounter
--- OUTSIDE RECORDS SUMMARY | 2025-02-01 16:48 | XMS_ITS | Encounter Summary ---
Author Organization [employer] [facility] Address [address] [place] [address] 7t [place] [address] Care Team Providers Care Applications Manager Name Role Phone Umm Coley MD Primary Care Provider + West Meier RN Unavailable [phone] Encounter Details Date Type Department Care Team (Latest Contact Info) Description 09/16/2022 Abstract [facility] CONVERSIONS Dental, Provider, DDS Social [...] 02/03/2025 2:00 PM EDT Office Visit [facility] MEDICINE [address] [place] [address] Darrell Myers MD 230 [place] [address] 03/08/2025 10:00 AM EDT Office Visit [facility] ADULT DENTAL [address] [place] [address] Mariangel Ruff [address] [place] [address] 05/02/2025 10:30 AM EDT Office Visit [facility] MEDICINE [address] [place] [address] [phone] Umm Coley MD 230 [place] [address] documented as of this encounter Visit Diagnoses Not on filedocumented in this encounter Care Teams Applications Manager Relationship Specialty Start Date End Date Umm Coley MD 230 [place], [place] [phone] PCP - General Family Medicine 10/31/16 West Meier, BEBA [address] [place] [address] ExternJunior Systems Analyst 01/12/25 Eva Nunez Extern 04/05/24 07/06/24 [facility] 05/11/24 11/17/24 [facility] 11/14/24 01/17/25 [employer] 12/08/24 documented as of this encounter
--- OUTSIDE RECORDS SUMMARY | 2025-02-01 16:48 | XMS_ITS | Encounter Summary ---
Author Organization [employer] [facility] Address [address] [place] [address] 7t [place] [address] Care Team Providers Care Trigonometry Tutor Name Role Phone Umm Coley MD Primary Care Provider + West Meier RN Unavailable [phone] Encounter Details Date Type Department Care Team (Latest Contact Info) Description 11/23/2020 Abstract [facility] CONVERSIONS Dental, Provider, DDS Social History Tobacco [...] Description 02/03/2025 2:00 PM EDT Office Visit [facility] MEDICINE [address] [place] [address] Darrell Myers MD 230 [place] [address] 03/08/2025 10:00 AM EDT Office Visit [facility] ADULT DENTAL 230 [place] [address] Mariangel Ruff [address] [place] [address] 05/02/2025 10:30 AM EDT Office Visit [facility] MEDICINE [address] [place] [address] [phone] Umm Coley MD 230 [place] [address] documented as of this encounter Visit Diagnoses Not on filedocumented in this encounter Care Teams Trigonometry Tutor Relationship Specialty Start Date End Date Umm Coley MD 230 [place], [place] [phone] PCP - General Family Medicine 10/31/16 West Meier, BEBA [address] [place] [address] Pulp And Paper TesterAssistant Sales Manager 01/12/25 Eva Nunez Pulp And Paper Tester 04/05/24 07/06/24 [facility] [facility] 05/11/24 11/17/24 [facility] 11/14/24 01/17/25 [employer] 12/08/24 documented as of this encounter
--- OUTSIDE RECORDS SUMMARY | 2025-02-01 16:48 | XMS_ITS | Encounter Summary ---
Author Organization [employer] Address [address] [facility] 7t [place] [address] Care Team Providers Care Hand Laminator Name Role Phone Umm Coley MD Primary Care Provider + West Meier RN Unavailable [phone] Encounter Details Date Type Department Care Team ([facility] st Contact Info) Description 01/24/2025 Telephone [facility] MEDICINE 230 [place], [place] [phone] Umm Coley MD 230 [place], [place] [phone] Social History Tobacco Use Types Packs/Day Years [...] 2:00 PM EDT Office Visit [facility] MEDICINE [address] [place] [address] Darrell Myers MD [address] [place] [address] 03/08/2025 10:00 AM EDT Office Visit [facility] ADULT DENTAL 230 [place], [place] [phone] Trino Ruffaris 230 [place] [address] 05/02/2025 10:30 AM EDT Office Visit [facility] MEDICINE [address] [place] [address] [phone] Umm Coley MD [address] [place] [address] documented as of this encounter Visit Diagnoses Not on filedocumented in this encounter Additional Health Concerns Assessment Noted Time PHQ-9 Depression Total Score: 10 024 9:17 AM EDT documented as of this encounter Care Teams Hand Laminator Relationship Specialty Start Date End Date Umm Coley MD [address] [place] [address] PCP - General Family Medicine 10/31/16 West Meier, BEBA [address] [place] [address] Casing OperatorRoof Slater 01/12/25 [employer] 12/08/24 documented as of this encounter
--- OUTSIDE RECORDS SUMMARY | 2025-02-01 16:48 | XMS_ITS | Encounter Summary ---
Author Organization [employer] Address [address] [facility] 7t [place] [address] Care Team Providers Care Licensed Retail Supervisor Name Role Phone Umm Coley MD Primary Care Provider + West Meier RN Unavailable [phone] Encounter Details Date Type Department Care Team (Late st Contact Info) Description 11/03/2022 Orders Only [facility] MEDICINE 230 [place], [place] [phone] Umm Colye MD 230 [place], [place] [phone] Osteopenia after menopause (Primary Dx) Social History [...] Office Visit [facility] MEDICINE [address] [place] [address] Darrell Myers MD [address] [place] [address] 03/08/2025 10:00 AM EDT Office Visit [facility] ADULT DENTAL [address] [place] [address] [phone] Elzbieta, Mariangel 230 [place], [place] [phone] 05/02/2025 10:30 AM EDT Office Visit [facility] MEDICINE [address] [place] [address] Umm Coley MD [address] [place] [address] [phone] Scheduled Orders Name Type Priority Associated Diagnoses Orde r Schedule Vitamin D, 25-Hydroxy, Total, Immunoassay Lab Routine Osteopenia after menopause Expected: 11/03/2022 (Approximate), Expires: 11/03/2023 PTH, Intact (ICMA) And Ionized Calcium Lab Routine Osteopenia after menopause Expected: 11/03/2022 (Approximate), Expires: 11/03/2023 documented as of this encounter Visit Diagnoses Diagnosis Osteopenia after menopause- Primary documented in this encounter Care Teams Licensed Retail Supervisor Relationship Specialty Start Date End Date Umm Coley MD [address] [place] [address] [phone] PCP - General Family Medicine 10/31/16 West Meier, BEBA [address] [place] [address] Mail DelivererTissue Recovery Technician 01/12/25 Eva Nunez Mail Deliverer 04/05/24 07/06/24 [facility] [facility] 05/11/24 11/17/24 Mir Almonte 11/14/24 01/17/25 [employer] 12/08/24 documented as of this encounter
--- OUTSIDE RECORDS SUMMARY | 2025-02-01 16:49 | XMS_ITS | Encounter Summary ---
Author Organization [email or web address] Address [address] [facility] 7t [place] [address] Care Team Providers Care Broadcast Producer Name Role Phone Umm Coley MD Primary Care Provider + West Meier RN Unavailable [phone] Reason for Visit * Reason Onset Date Comments Appointment Request 01/27/2025 Encounter Details Date Type Department Care Team ([facility] st Contact Info) Description 01/27/2025 Telephone [facility] MEDICINE 230 [place], [place] [phone] Umm Coley MD 230 [place], [place] [phone] Appointment Request Social History Tobacco Use Types [...] PCP in a while. Contact pt at [phone] documented in this encounter Plan of Treatment Upcoming Encounters Date Type Department Care Team (Late st Contact Info) Description 02/03/2025 2:00 PM EDT Office Visit [facility] MEDICINE [address] [place] [address] Darrell Myers MD [address] [place] [address] 03/08/2025 10:00 AM EDT Office Visit [facility] ADULT DENTAL [address] [place] [address] Mariangel Ruff [address] [place] [address] 05/02/2025 10:30 AM EDT Office Visit [facility] MEDICINE [address] [place] [address] Umm Coley MD [address] [place] [address] documented as of this encounter Visit Diagnoses Not on filedocumented in this encounter Additional Health Concerns Assessment Noted Time PHQ-9 Depression Total Score: 10 024 9:17 AM EDT documented as of this encounter Care Teams Broadcast Producer Relationship Specialty Start Date End Date Umm Coley MD [address] [place] [address] PCP - General Family Medicine 10/31/16 West Meier, BEBA [address] [place] [address] Mellowing Machine OperatorSeat Scooper Machine 01/12/25 [employer] 12/08/24 documented as of this encounter
--- OUTSIDE RECORDS SUMMARY | 2025-02-01 16:49 | XMS_ITS | Encounter Summary ---
Author Organization [employer] Address [address] [place] [address] 7t [place] [address] Care Team Providers Care Fur Buyer Name Role Phone Umm Coley MD Primary Care Provider + West Meier RN Unavailable [phone] Encounter Details Date Type Department Care Team ([facility] Contact Info) Description 03/05/2023 Orders Only [facility] MEDICINE [address] [place] [address] [phone] Umm Coley MD [address] [place] [address] [phone] Social History Tobacco Use Types Packs/Day Years [...] Upcoming Encounters Date Type Department Care Team ([facility] Contact Info) Description 02/03/2025 2:00 PM EDT Office Visit [facility] MEDICINE [address] [place] [address] [phone] Darrell Myers MD 230 [place] [address] 03/08/2025 10:00 AM EDT Office Visit [facility] ADULT DENTAL 230 [place] [address] Mariangel Ruff [address] [place] [address] 05/02/2025 10:30 AM EDT Office Visit [facility] MEDICINE 230 [place] [address] Umm Coley MD 230 [place] [address] documented as of this encounter Visit Diagnoses Not on filedocumented in this encounter Care Teams Fur Buyer Relationship Specialty Start Date End Date Umm Coley MD 230 [place] [address] PCP - General Family Medicine 10/31/16 West Meier, BEBA 505 [place] [address] Food Beverage ManagerDelivery Representative 01/12/25 Eva Nunez Food Beverage Manager 04/05/24 07/06/24 [facility] 05/11/24 11/17/24 [facility] 11/14/24 01/17/25 [employer] 12/08/24 documented as of this encounter
--- OUTSIDE RECORDS SUMMARY | 2025-02-01 16:49 | XMS_ITS | Encounter Summary ---
Author Organization [employer] Address [address] [facility] 7t [place] [address] Care Team Providers Care Vp Training Name Role Phone Umm Coley MD Primary Care Provider + West Meier RN Unavailable [phone] Reason for Visit * Reason Onset Date Comments Appointment 03/17/2023 Encounter Details Date Type Department Care Team ([facility] st Contact Info) Description 03/17/2023 Telephone [facility] ADULT DENTAL 230 [place] [address] Johnny Gonzalez, WILIAN [address] [place], [place] [phone] Appointment Social History Tobacco Use Types Packs/Day [...] 02/03/2025 2:00 PM EDT Office Visit [facility] MEDICINE 230 [place] [address] Darrell Myers MD 230 [place] [address] 03/08/2025 10:00 AM EDT Office Visit [facility] ADULT DENTAL [address] [place] [address] Trino Ruffaris [address] [place] [address] 05/02/2025 10:30 AM EDT Office Visit [facility] MEDICINE [address] [place] [address] Umm Coley MD 230 [place] [address] documented as of this encounter Visit Diagnoses Not on filedocumented in this encounter Care Teams Vp Training Relationship Specialty Start Date End Date Umm Coley MD 230 [place] [address] PCP - General Family Medicine 10/31/16 West Meier, BEBA [address] [place] [address] Sld TeacherFisherman Helper 01/12/25 Eva Nunez Sld Teacher 04/05/24 07/06/24 [employer] [facility] 05/11/24 11/17/24 [facility] 11/14/24 01/17/25 [employer] 12/08/24 documented as of this encounter
--- OUTSIDE RECORDS SUMMARY | 2025-02-01 16:49 | XMS_ITS | Encounter Summary ---
Author Organization [employer] Address [address] [facility] 7t [place] [address] Care Team Providers Care Back Stayer Name Role Phone Umm Coley MD Primary Care Provider + West Meier RN Unavailable [phone] Reason for Visit * Reason Comments Med Change Request Encounter Details Date Type Department Care Team ([facility] Contact Info) Description 03/20/2023 Refill [facility] ADULT DENTAL [address] [place] [address] Johnny Gonzalez, WILIAN [address] [place] [address] Social History Tobacco Use Types Packs/Day Years [...] 2:00 PM EDT Office Visit [facility] MEDICINE [address] [place] [address] Darrell Myers MD [address] [place] [address] 03/08/2025 10:00 AM EDT Office Visit [facility] ADULT DENTAL [address] [place] [address] Mariangel Ruff [address] [place] [address] 05/02/2025 10:30 AM EDT Office Visit [facility] MEDICINE [address] [place] [address] Umm Coley MD [address] [place] [address] documented as of this encounter Visit Diagnoses Not on filedocumented in this encounter Care Teams Back Stayer Relationship Specialty Start Date End Date Umm Coley MD [address] [place] [address] PCP - General Family Medicine 10/31/16 West Meier, BEBA [address] [place] [address] State InspectorOffice Coordinator 01/12/25 Eva Nunez State Inspector 04/05/24 07/06/24 [employer] [facility] 05/11/24 11/17/24 [facility] 11/14/24 01/17/25 [employer] 12/08/24 documented as of this encounter
--- OUTSIDE RECORDS SUMMARY | 2025-02-01 16:49 | XMS_ITS | Encounter Summary ---
Author Organization [employer] Address [address] [facility] 7t [place] [address] Care Team Providers Care Therapeutic Recreation Assistant Name Role Phone Umm Coley MD Primary Care Provider + West Meier RN Unavailable Reason for Visit * Reason Onset Date Comments Appointment 02/24/2023 Encounter Details Date Type Department Care Team ([facility] st Contact Info) Description 02/24/2023 Telephone [facility] ADULT DENTAL [address] [place] [address] Johnny Gonzalez, WILIAN [address] [place] [address] Appointment Social History Tobacco Use Types Packs/Day [...] Office Visit [facility] MEDICINE [address] [place] [address] Darrell Myers MD [address] [place] [address] 03/08/2025 10:00 AM EDT Office Visit [facility] ADULT DENTAL [address] [place] [address] Mariangel Ruff [address] [place] [address] 05/02/2025 10:30 AM EDT Office Visit [facility] MEDICINE [address] [place] [address] Umm Coley MD [address] [place] [address] documented as of this encounter Visit Diagnoses Not on filedocumented in this encounter Care Teams Therapeutic Recreation Assistant Relationship Specialty Start Date End Date Umm Coley MD [address] [place] [address] PCP - General Family Medicine 10/31/16 West Meier, BEBA [address] [place] [address] Change PersonWeight Training Instructor 01/12/25 Eva Nunez Change Person 04/05/24 07/06/24 [facility] 05/11/24 11/17/24 [employer] [facility] 11/14/24 01/17/25 [email or web address] 12/08/24 documented as of this encounter
--- OUTSIDE RECORDS SUMMARY | 2025-02-01 16:49 | XMS_ITS | Encounter Summary ---
Author Organization [employer] Address [address] [facility] 7t [place] [address] Care Team Providers Care Filter Tip Inspector Name Role Phone Umm Coley MD Primary Care Provider + West Meier RN Unavailable [phone] Reason for Visit * Reason Comments Med Change Request Encounter Details Date Type Department Care Team ([facility] Contact Info) Description 03/20/2023 Refill [facility] ADULT DENTAL [address] [place] [address] Johnny Gonzalez DMD [address] [place] [address] Social History Tobacco Use Types Packs/Day Years [...] Office Visit [facility] MEDICINE [address] [place] [address] Darrell Myers MD [address] [place] [address] 03/08/2025 10:00 AM EDT Office Visit [facility] ADULT DENTAL [address] [place] [address] Mariangel Ruff [address] [place] [address] 05/02/2025 10:30 AM EDT Office Visit [facility] MEDICINE [address] [place] [address] Umm Coley MD [address] [place] [address] documented as of this encounter Visit Diagnoses Not on filedocumented in this encounter Care Teams Filter Tip Inspector Relationship Specialty Start Date End Date Umm Coley MD [address] [place] [address] PCP - General Family Medicine 10/31/16 West Meier, BEBA [address] [place] [address] Ginning OperatorProfiler 01/12/25 Eva Nunez Ginning Operator 04/05/24 07/06/24 [facility] [facility] 05/11/24 11/17/24 [facility] 11/14/24 01/17/25 [employer] 12/08/24 documented as of this encounter
--- OUTSIDE RECORDS SUMMARY | 2025-02-01 16:49 | XMS_ITS | Encounter Summary ---
Author Organization [facility] Address [address] [place] [address] 7t [place] [address] Care Team Providers Care Low Vision Therapist Name Role Phone Umm Coley MD Primary Care Provider + West Meier RN Unavailable [phone] Reason for Visit * Reason Comments Med Refill Encounter Details Date Type Department Care Team ([facility] Contact Info) Description 02/05/2023 Refill [facility] MEDICINE [address] [place], [place] [phone] Umm Coley MD [address] [place], [place] [phone] Arthritis of knee Social History Tobacco Use [...] Upcoming Encounters Date Type Department Care Team ([facility] Contact Info) Description 02/03/2025 2:00 PM EDT Office Visit [facility] MEDICINE [address] [place] [address] Darrell Myers MD [address] [place] [address] 03/08/2025 10:00 AM EDT Office Visit [facility] ADULT DENTAL [address] [place] [address] Trino Ruffaris [address] [place] [address] 05/02/2025 10:30 AM EDT Office Visit [facility] MEDICINE [address] [place] [address] Umm Coley MD [address] [place] [address] [phone] documented as of this encounter Visit Diagnoses Diagnosis Arthritis of knee Unspecified arthropathy, lower leg documented in this encounter Care Teams Low Vision Therapist Relationship Specialty Start Date End Date Umm Coley MD [address] [place] [address] PCP - General Family Medicine 10/31/16 West Meier, BEBA [address] [place] [address] Mail Order ClerkDiaphragm Builder 01/12/25 Eva Nunez Mail Order Clerk 04/05/24 07/06/24 [facility] [facility] 05/11/24 11/17/24 [employer] [facility] 11/14/24 01/17/25 [employer] 12/08/24 documented as of this encounter
--- OUTSIDE RECORDS SUMMARY | 2025-02-01 16:49 | XMS_ITS | Encounter Summary ---
Author Organization [employer] Address 75 [facility] 7t [place] [address] Care Team Providers Care Braille Transcriber Name Role Phone Umm Coley MD Primary Care Provider + West Meier RN Unavailable Reason for Visit * Reason Onset Date Comments Appointment Request 01/27/2025 Encounter Details Date Type Department Care Team ([facility] st Contact Info) Description 01/27/2025 Telephone [facility] [address] [place], [place] [phone] Umm Coley MD [address] [place], [place] [phone] Appointment Request Social History Tobacco Use Types [...] EDT Office Visit [facility] [address] [place] [address] Darrell Myers MD [address] [place] [address] 03/08/2025 10:00 AM EDT Office Visit [facility] ADULT DENTAL [address] [place] [address] Mariangel Ruff [address] [place] [address] 05/02/2025 10:30 AM EDT Office Visit [facility] [address] [place] [address] Umm Coley MD [address] [place] [address] documented as of this encounter Visit Diagnoses Not on filedocumented in this encounter Additional Health Concerns Assessment Noted Time PHQ-9 Depression Total Score: 10 024 9:17 AM EDT documented as of this encounter Care Teams Braille Transcriber Relationship Specialty Start Date End Date Umm Coley MD [address] [place] [address] PCP - General Family Medicine 10/31/16 West Meier, BEBA [address] [place] [address] JusticeEmbedded Processor 01/12/25 [employer] 12/08/24 documented as of this encounter
== END 2025-02-01 15:28 | disposition home or self-care (01) ==
LOC: HO.HOS 14:02
PROVIDERS: PCP Internal Medicine
DX: S52.501A Unspecified fracture of the lower end of right radius, initial encounter for closed fracture (principal)
CPT/HCPCS: 99024

== ENCOUNTER 2025-02-01 14:02 | Outpatient (REF) | payer MEDICAID, SELFPAY ==
--- NOTE | ~2025-02-01 | XR_ITS ---
EXAMINATION: XR WRIST 3 OR MORE VIEWS RIGHT HISTORY: M25.531 - Pain in right wrist COMPARISON: Comparison is made with the prior examination dated 01/17/2025. FINDINGS: Three views of the right wrist are submitted. The bones are osteopenic. The patient is again noted to be status post internal fixation of a fracture of the distal radial metaphysis. The fracture lines remain visible. There are additional fractures of the ulnar metaphysis and ulnar styloid. The ulnar fracture line remains visible. The joint spaces are preserved. The soft tissues are unremarkable. XR/XR wrist RT min 3V IMPRESSION: Osteopenia. Internal fixation of a fracture of the distal radius without change. Ulnar metaphyseal fracture without change. Electronically signed by: Beka Packer MD 02/02/2025 09:11 AM EDT
== END 2025-02-01 14:03 | disposition home or self-care (01) ==
LOC: HO.HOSX 14:02
PROVIDERS: PCP Internal Medicine
DX: M25.531 Pain in right wrist (principal); S52.501D Unspecified fracture of the lower end of right radius, subsequent encounter for closed fracture with routine healing; Z98.890 Other specified postprocedural states
CPT/HCPCS: 73110; 99212

== ENCOUNTER → 2025-02-01 14:14 | Outpatient (BNV) | payer MEDICAID, SELFPAY | PROVIDERS: PCP Internal Medicine; Visit Provider Radiology Diagnostic Radiology | DX: S52.501D Unspecified fracture of the lower end of right radius, subsequent encounter for closed fracture with routine healing (principal); S52.201D Unspecified fracture of shaft of right ulna, subsequent encounter for closed fracture with routine healing; M85.841 Other specified disorders of bone density and structure, right hand | CPT/HCPCS: 73110 ==

== ENCOUNTER 2025-02-09 13:35 | Outpatient (AMB) | payer MEDICAID, SELFPAY ==
--- NOTE | 2025-02-09 13:40 | A.OFFVIS_ITS ---
Vital Signs 02/09/25 13:41 Height 5 ft Weight 110 lb BMI 21.5 BP 120/62 Blood Pressure Location Lt brachial Position Sitting Pulse 83 Pulse Source Doppler Pulse Oximetry (%) 98 Oxygen Delivery Method Room Air Intake Visit Reasons: asthma Rubber Compounder Required: Yes Rubber Compounder Name: Zara Fernandez Jaquelin.L.Chris Allergies codeine [CODEINE] Allergy (Intermediate, Verified 02/09/25 13:46) DIZZY/NAUSEA, nausea/vomiting escitalopram [From LEXAPRO] Allergy (Intermediate, Verified 02/09/25 13:46) ? NAUSEA meperidine [MEPERIDINE] Allergy (Intermediate, Verified 02/09/25 13:46) NAUSEA morphine [MORPHINE] Allergy (Intermediate, Verified 02/09/25 13:46) PALPITATIONS, palpitation oxycodone [OXYCODONE] Allergy (Intermediate, Verified 02/09/25 13:46) PALPATATIONS, palpitations tramadol Allergy (Unknown, Verified 02/09/25 13:46) dizziness, nausea HPI HPI asthma: Details: 60-year-old lady, former minimal smoker, with underlying history of treated TB in her late teens, right breast cancer status post lumpectomy, chemo, and radiation in 2010 referred for evaluation of dyspnea on exertion that occurs after patient walks for several blocks.? She has had a recent negative cardiac workup.? Patient denies prior personal history of lung disease.? She has lots of first-degree relatives with asthma.? Patient has had COVID back in December of 2020, however her dyspnea symptoms predate but got worse after her COVID infection.? She denies any wheezing, cough, sputum production.? She has multiple environmental allergies. Her pulmonary function test showed mild decrease in diffusion capacity and otherwise has been unremarkable.? [facility] CT chest is normal and pulmonary function test that is essentially normal with only minor defect in diffusion capacity that does not explain her symptoms. Patient was not able tolerate Trelegy secondary to it being powder inhaler. She was not able to receive BrezTri or Bevespi. She has been using Symbicort with some symptom control. She was not able to complete her cardiopulmonary exercise test secondary to recent fall resulting in arm fracture for which she had several procedures. [facility] Medical History Primary osteoarthritis of right hand Migraine Right shoulder pain Rotator cuff tendinitis Arthritis of right shoulder region Right hand pain Breast cancer, right Status post radiation therapy Anemia Diarrhea Depression Somatization disorder Migraine equivalent syndrome Anxiety Periodontal disease Fibromyalgia Surgical History History of esophagogastroduodenoscopy (EGD) History of lumpectomy Hx of section Hx of shoulder surgery Hx of colonoscopy Family History Mother HTN (hypertension) Sister Breast cancer Bone cancer Colon polyps Sister Osteoporosis Hypercholesteremia Colon polyps Social History Household Members: None Housing: Apartment Are you a primary director day care center to a significant other at home: No Do you presently have visiting nurse or other home services: No Alcohol intake: never Patient Tobacco Use Status: Former Tobacco user Years Smoked: 3 service: No Current occupational status: disabled 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 Review of Systems Const Denies daytime sleepiness, Denies excessive sweating, Denies fatigue, Denies fever(s), Denies lethargy, Denies malaise, Denies night sweats, Denies snoring and Denies weight loss Eyes Denies blurry vision and Denies itchy eyes ENT Denies nasal congestion, Denies post nasal drip, Denies sinus pain, Denies sinus pressure and Denies other ( Thrush) Card Denies chest pain, Denies pedal edema, Denies dyspnea, Reports dyspnea on exertion, Denies orthopnea and Denies paroxysmal nocturnal dyspnea Resp Denies cough, Denies hemoptysis, Denies excessive phlegm production, Denies dyspnea, Reports dyspnea on exertion, Denies snoring and Denies wheezing GI Denies abdominal pain and Denies heartburn Musc Denies myalgias, Denies arthralgias and Denies joint swelling Skin/Breast Denies rash Neuro Denies memory loss and Denies seizure-like activity Psych Denies abnormal sleep pattern, Denies anxiety and Denies memory loss Endo Denies excessive sweating, Denies fatigue and Denies heat intolerance Marko/Lymph Denies easy bruising Aller/Immun Denies itchy eyes, Denies seasonal rhinorrhea and Denies wheezing Physical Exam Vital Signs: Last Vital Signs Pulse 83 02/09/25 13:41 BP 120/62 02/09/25 13:41 Pulse Ox 98 02/09/25 13:41 Oxygen Delivery Method Room Air 02/09/25 13:41 BMI result Body Mass Index 21.5 Const General: no acute distress and alert Nutritional Appearance: not obese Orientation/consciousness: Other orientation findings ( oriented) HEENT Head: Yes atraumatic Eyes General: appearance normal, both eyes and all related structures Sclerae: sclerae normal EOM: EOMs intact bilaterally Neck Neck: Yes supple Lymphatic: no lymphadenopathy noted Resp Effort & Inspection: normal respiratory effort and no use of accessory muscles Auscultation: clear to auscultation bilaterally Cardio Rate: regular rate Rhythm: regular rhythm Heart sounds: no gallops, no murmurs and no rubs Skin General skin exam: other ( warm) Extrem General: No clubbing, No cyanosis and No edema Assessment & Plan Assessment & Plan (1) Reactive airway disease: Code(s): J45.909 - Unspecified asthma, uncomplicated Category: Medical Plan: Well controlled on current regimen of Symbicort and albuterol MDI. Continue current regimen. (2) Dyspnea on exertion: Code(s): R06.00 - Dyspnea, unspecified Category: Medical Plan: Unclear etiology. Cardiopulmonary exercise test is delayed until patient recovers from her recent fall with on fracture, provisionally to be done in May of 2025. Coding Level of Care Code Est Pt Level 4 (18968) Diagnoses Reactive airway disease J45.909 Dyspnea on exertion R06.00
[2025-02-09 13:41] VITALS: BP 120/62; PULSE 83; O2SAT 98; BMI 21.5
--- OUTSIDE RECORDS SUMMARY | 2025-02-09 16:25 | XMS_ITS | Encounter Summary ---
Author Organization [employer] Address [address] [facility] 7t [place] [address] Care Team Providers Care Sole Rounder Name Role Phone Umm Coley MD Primary Care Provider + West Meier RN Unavailable [phone] Encounter Details Date Type Department Care Team ([facility] st Contact Info) Description 02/07/2025 Telephone [facility] MEDICINE [address] [place], [place] [phone] Umm Coley MD [address] [place], [place] [phone] Social History Tobacco Use Types Packs/Day Years [...] encounter Miscellaneous Notes * Telephone Encounter - Katiuska Flaherty RN - 02/09/2025 3:07 PM EDT T/C to pt re: below notes. No answer will reattempt tomorrow. Huddle planned on 02/27 to discuss plan of care for patient. * Telephone Encounter - West Meier RN - 02/08/2025 2:16 PM EDT CM never received a call back from pt today. CM called pt to f/u on conversation from yesterday, noanswer, LVM in Thai to RTC. * Telephone Encounter - West Meier RN - 02/07/2025 11:39 AM EDT Leatha Snider spoke with this CM in regards to situation with VNA agency ([facility]) over the weekend that pt did not answer the phone. Leatha Snider recommends that VNA can pre-fill medication in the lockbox and TANNING DRUM OPERATOR can give the medication to pt. This CM spoke with pt who states that she was not at home over the weekend but with her daughter. CM informed pt of above recommendation but pt is not in agreement with a nurse coming to her home andwith TANNING DRUM OPERATOR administering medication. Pt reports that she receives TANNING DRUM OPERATOR services through [facility] twice aday Mon-Sat. CM informed pt that we have to figure out a plan in regards to medication administration since she has a lockbox. CM informed pt that she was referred to a new VNA company named [facility]. Pt states she will discuss with her daughter and will get back to CM tomorrow if in agreement to receive VNA services through [facility]. Pt reports that she has medication available for today. CM will follow up with pt tomorrow. Will FYI PCP and database manager. documented in this encounter Plan of Treatment Upcoming Encounters Date Type Department Care Team (Late st Contact Info) Description 03/08/2025 10:00 AM EDT Office Visit [facility] ADULT DENTAL [address] [place] [address] Elzbieta, Mariangel [address] [place] [address] 05/02/2025 10:30 AM EDT Office Visit [facility] MEDICINE [address] [place] [address] Umm Coley MD [address] [place] [address] documented as of this encounter Visit Diagnoses Not on filedocumented in this encounter Additional Health Concerns Assessment Noted Time PHQ-9 Depression Total Score: 10 024 9:17 AM EDT documented as of this encounter Care Teams Sole Rounder Relationship Specialty Start Date End Date Umm Coley MD [address] [place] [address] PCP - General Family Medicine 10/31/16 West Meier RN [address] [place] [address] Resource ParaprofessionalMotor Builder Winder 01/12/25 documented as of this encounter
--- OUTSIDE RECORDS SUMMARY | 2025-02-09 16:25 | XMS_ITS | Encounter Summary ---
Author Organization [employer] Address [address] [facility] 7t [place] [address] Care Team Providers Care Taxicab Starter Name Role Phone Umm Coley MD Primary Care Provider + West Meier RN Unavailable [phone] Reason for Visit * Reason Onset Date Comments appt 01/08/2024 Encounter Details Date Type Department Care Team ([facility] st Contact Info) Description 01/08/2024 Telephone [facility] ADULT DENTAL [address] [place] [address] Homer Strong, DMD [address] [place] [address] appt Social History Tobacco Use Types Packs/Day [...] Description 03/08/2025 10:00 AM EDT Office Visit [facility] ADULT DENTAL [address] [place] [address] Trino Ruffaris [address] [place] [address] 05/02/2025 10:30 AM EDT Office Visit [facility] MEDICINE [address] [place] [address] Umm Coley MD [address] [place] [address] documented as of this encounter Visit Diagnoses Not on filedocumented in this encounter Additional Health Concerns Assessment Noted Time PHQ-9 Depression Total Score: 21 024 11:31 AM EST documented as of this encounter Care Teams Taxicab Starter Relationship Specialty Start Date End Date Umm Coley MD [address] [place] [address] PCP - General Family Medicine 10/31/16 West Meier, BEBA [address] [place] [address] Curling Machine OperatorOil And Gas Field Technician 01/12/25 Eva Nunez Curling Machine Operator 04/05/24 07/06/24 [employer] 05/11/24 11/17/24 [facility] 11/14/24 01/17/25 [employer] 12/08/24 documented as of this encounter
--- OUTSIDE RECORDS SUMMARY | 2025-02-09 16:25 | XMS_ITS | Clinical Summary ---
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 in OR ?? Accession Number(s): [id number] ? cc: Shalonda Coley MD; Sydney Cleveland [...] (microgray-meter squared) ? Electronically signed by: ??Natanael Sarah MD ??01/03/2025 09:56 AM EST RP ? Dictated By: ?Sarah,Natanael S MD ? Signed By: ?<Electronically signed by Natanael S Sarah, MD in OV> ?01/03/25 0956 ? DD/ 1209 ? TD/TT: 01/02/25 1510 ? Home Service Technician: MSM ? Procedure Note Adalgisa, Image - 01/03/[address] [address] Fluoroscopy Report Signed Patient: Diana Myles LMR#: [id number] 8 : 1965Acct:[id number] Age/Sex: 59 / FADM Date: 01/02/25 Loc: HO.SSS Attending Dr: Sydney Cleveland MD Ordering Physician: Sydney Cleveland MD Date of Service: 01/02/25 Procedure(s): FL guidance in OR Accession Number(s): [id number] cc: Shalonda Coley MD; Sydney Cleveland MD [...] 01/03/25 0956 DD/ 1209 TD/TT: 01/02/25 1510 Home Service Technician: ANTONY [facility] External Provider IMG IR PROCEDURES Final Result * XR Ribs 2 Views Right (12/27/2024 1:56 PM EST) Anatomical Region Laterality Modality Rib, Abdomen Right Radiographic Kyleigh ging 12/27/2024 1:56 PM EST Narrative 12/27/2024 2:35 PM EST ?[facility] ?[address] ?[place] [address] ?XRay Report ? Signed ? Patient: Myles,Diana L ?MR#: [id number] ?? 8 ? : 1965 ?Acct:[id number] ? Age/Sex: 59 / F ?ADM Date: 02/25/25 ? Loc: HO.HHCX ? Attending Dr: Shalonda Coley MD ? Ordering Physician: Shalonda Coley MD ?? Date of Service: 12/27/24 ?? Procedure(s): XR ribs RT 2V ?? Accession Number(s): [id number] ? cc: Shalonda Coley MD ? EXAMINATION: [...] acute rib abnormalities. ? Electronically signed by: ??Mathiue Lepe MD ??12/27/2024 02:33 PM EST RP ? Dictated By: ?Mathieu Lepe MD ? Signed By: ?<Electronically signed by Mathieu Lepe MD in OV> ?12/27/24 1433 ? DD/ 1356 ? TD/TT: 12/27/24 1424 ? Home Service Technician: ? Procedure Note Chin Diana - 12/27/[address] [address] XRay Report Signed Patient: Diana Myles LMR#: [id number] 8 : 1965Acct:[id number] Age/Sex: 59 / FADM Date: 12/27/24 Loc: HO.HHCX Attending Dr: Shalonda Coley MD Ordering Physician: Shalonda Coley MD Date of Service: 12/27/24 Procedure(s): XR ribs RT 2V Accession Number(s): [id number] cc: Shalonda Coley MD EXAMINATION: XR CHEST [...] 02:33 PM EST RP Dictated By: Mathieu eLpe MD Signed By: <Electronically signed by Mathieu Lepe MD in OV> 12/27/24 1433 DD/ 1356 TD/TT: 12/27/24 1424 Home Service Technician: us Shalonda Coley MD IMG XR PROCEDURES Final Result * XR Chest 2 Views (12/27/2024 1:56 PM EST) Only the most recent of2 resultswithin the time period is included. Anatomical Region Laterality Modality Chest Radiographic Kyleigh ging 12/27/2024 1:56 PM EST Narrative 12/27/2024 2:36 PM EST ?[facility] ?[address] ?[place] [address] ?XRay Report ? Signed ? Patient: Myles,Diana L ?MR#: [id number] ?? 8 ? : 1965 ?Acct:[id number] ? Age/Sex: 59 / F ?ADM Date: 02/25/25 ? Loc: HO.HHCX ? Attending Dr: Shalonda Coley MD ? Ordering Physician: Shalonda Coley MD ?? Date of Service: 12/27/24 ?? Procedure(s): XR chest 2V ?? Accession Number(s): [id number] ? cc: Shalonda Coley MD ? EXAMINATION: [...] DD/ 1356 ? TD/TT: 12/27/24 1424 ? Home Service Technician: ? Procedure Note Donmiguelter, Image - 12/27/2024 [place] [address] XRay Report Signed Patient: Diana Myles LMR#: [id number] 8 : 1965Acct:[id number] Age/Sex: 59 / FADM Date: 12/27/24 Loc: HO.HHCX Attending Dr: Shalonda Coley MD Ordering Physician: Shalonda Coley MD Date of Service: 12/27/24 Procedure(s): XR chest 2V Accession Number(s): [id number] cc: Shalonda Coley MD EXAMINATION: XR CHEST [...] 12/27/24 1433 DD/ 1356 TD/TT: 12/27/24 1424 Home Service Technician: us Shalonda Coley MD IMG XR PROCEDURES Final Result * XR HAND WRIST RT (12/23/2024 6:57 PM EST) Only the most recent of2 resultswithin the time period is included. Anatomical Region Laterality Modality Abdomen Radiographic Kyleigh ging 12/23/2024 6:57 PM EST Narrative 12/23/2024 6:59 PM EST ? [facility] ?[address] ?[place] [address] ?XRay Report ? Signed ? Patient: Diana Myles ?MR#: [id number] ?? 8 ? : 1965 ?Acct:[id number] ? Age/Sex: 59 / F ?ADM Date: 12/23/24 ? Loc: HO.ED ? Attending Dr: ? Ordering Physician: Diomedes Shultz ?? Date of Service: 12/23/24 ?? Procedure(s): XR hand wrist RT ?? Accession Number(s): [id number] ? cc: Diomedes Shultz; Shalonda Coley MD [...] ? DD/ 56 ? TD/TT: 12/23/241856 ? Home Service Technician: ? Procedure Note Donjonathaninterpreter, Image - 12/23/[address] [address] XRay Report Signed Patient: Diana Myles LMR#: [id number] 8 : 1965Acct:[id number] Age/Sex: 59 / FADM Date: 12/23/24 Loc: HO.ED Attending Dr: Ordering Physician: Diomedes Shultz Date of Service: 12/23/24 Procedure(s): XR hand wrist RT Accession Number(s): [id number] cc: Diomedes Shultz; Shalonda Coley MD CLINICAL [...] in OV> 12/23/241857 DD/ 56 TD/TT: 12/23/241856 Home Service Technician: [facility] External Provider IMG XR PROCEDURES Final Result * CT Head w/o Contrast (12/23/2024 4:42 PM EST) Anatomical Region Laterality Modality Head, Neck Computed Tomogra phy 12/23/2024 4:42 PM EST Narrative 12/23/2024 4:54 PM EST ? [facility] ?[address] ?[place] [address] ? CT Scan Report ? Signed ? Patient: Myles,Diana L ?MR#: [id number] ?? 8 ? : 1965 ?Acct:[id number] ? Age/Sex: 59 / F ?ADM Date: 12/23/24 ? Loc: HO.ED ? Attending Dr: ? Ordering Physician: Diomedes Shultz ?? Date of Service: 12/23/24 ?? Procedure(s): CT head/brain wo IV con ?? Accession Number(s): [id number] ? cc: Diomedes Shultz; Shalonda Coley MD ? Report Number: ?? [id number]: Total DLP = ??821.00 mGy-cm ?? EXAMINATION: [...] DD/ 1642 ? TD/TT: 12/23/24 1642 ? Home Service Technician: ? Procedure Note Donlinda, Image - 12/23/[address] [place] [address] [address] Scan Report Signed Patient: Diana Myles LMR#: [id number] 8 : 1965Acct:[id number] Age/Sex: 59 / FADM Date: 12/23/24 Loc: HO.ED Attending Dr: Ordering Physician: Diomedes Shultz Date of Service: 12/23/24 Procedure(s): CT head/brain wo IV con Accession Number(s): [id number] cc: Diomedes Shultz; Shalonda Coley MD Report Number: [id number]: Total DLP = 821.00 mGy-cm EXAMINATION: CT [...] 12/23/24 1651 DD/ 1642 TD/TT: 12/23/24 1642 Home Service Technician: [facility] External Provider IMG CT PROCEDURES Final Result * CT Cervical Spine w/o Contrast (12/23/2024 3:29 PM EST) Anatomical Region Laterality Modality Spine, C-spine Computed Tomogra phy 12/23/2024 3:29 PM EST Narrative 12/23/2024 4:57 PM EST ? [facility] ?[address] ?[place] [address] ? CT Scan Report ? Signed ? Patient: Myles,Diana L ?MR#: [id number] ?? 8 ? : 1965 ?Acct:[id number] ? Age/Sex: 59 / F ?ADM Date: 02/21/25 ? Loc: HO.ED ? Attending Dr: ? Ordering Physician: Diomedes Shultz ?? Date of Service: 12/23/24 ?? Procedure(s): CT cervical spine wo IV con ?? Accession Number(s): [id number] ? cc: Diomedes Shultz; Shalonda Coley MD ? Report Number: ?? [id number]: Total DLP = ??821.00 mGy-cm ?? EXAMINATION: [...] DD/ 1529 ? TD/TT: 12/23/24 1642 ? Home Service Technician: ? Procedure Note Adalgisa, Image - 12/23/[address] [address] [address] Scan Report Signed Patient: Diana Myles LMR#: [id number] 8 : 1965Acct:[id number] Age/Sex: 59 / FADM Date: 12/23/24 Loc: HO.ED Attending Dr: Ordering Physician: Diomedes Shultz Date of Service: 12/23/24 Procedure(s): CT cervical spine wo IV con Accession Number(s): [id number] cc: Diomedes Shultz; Shalonda Coley MD Report Number: [id number]: Total DLP = 821.00 mGy-cm EXAMINATION: CT [...] by: Mathieu Lepe MD 12/23/2024 04:54 PM [facility] Dictated By: Mathieu Lepe MD Signed By: <Electronically signed by Mathieu Lepe MD in OV> 12/23/24 1654 DD/ 1529 TD/TT: 12/23/24 1642 Home Service Technician: [facility] External Provider IMG CT PROCEDURES Final Result * XR Shoulder 2+ Views Right (12/23/2024 3:09 PM EST) Anatomical Region Laterality Modality Upper Extremities, Shoulder Right Radi ographic Imaging 12/23/2024 3:09 PM EST Narrative 12/23/2024 3:43 PM EST ? [facility] ?[address] ?[place], [place] [address] ?XRay Report ? Signed ? Patient: Myles,Diana L ?MR#: [id number] ?? 8 ? : 1965 ?Acct:[id number] ? Age/Sex: 59 / F ?ADM Date: 12/23/24 ? Loc: HO.ED ? Attending Dr: ? Ordering Physician: Diomedes Shultz ?? Date of Service: 12/23/24 ?? Procedure(s): XR shoulder RT min 2V ?? Accession Number(s): [id number] ? cc: Diomedes Shultz; Shalonda Coley MD [...] DD/ 1509 ? TD/TT: 12/23/24 1533 ? Home Service Technician: ? Procedure Note Donotuseinterpreter, Image - 12/23/[address] [address] XRay Report Signed Patient: Diana Myles LMR#: [id number] 8 : 1965Acct:[id number] Age/Sex: 59 / FADM Date: 12/23/24 Loc: HO.ED Attending Dr: Ordering Physician: Diomedes Shultz Date of Service: 12/23/24 Procedure(s): XR shoulder RT min 2V Accession Number(s): [id number] cc: Diomedes Shultz; Shalonda Coley MD EXAMINATION: [...] 12/23/24 1540 DD/ 1509 TD/TT: 12/23/24 1533 Home Service Technician: [facility] External Provider IMG XR PROCEDURES Final Result * XR Hips Bilateral with Pelvis 1 view (12/23/2024 2:57 PM EST) Anatomical Region Laterality Modality Lower Extremities, Hip Bilateral Radiograp hic Imaging 12/23/2024 2:57 PM EST Narrative 12/23/2024 3:45 PM EST ? [facility] ?[address] ?[place] [address] ?XRay Report ? Signed ? Patient: Myles,Diana L ?MR#: [id number] ?? 8 ? : 1965 ?Acct:[id number] ? Age/Sex: 59 / F ?ADM Date: 02/21/25 ? Loc: HO.ED ? Attending Dr: ? Ordering Physician: Diomedes Shultz ?? Date of Service: 12/23/24 ?? Procedure(s): XR hip BI w PEL1V ?? Accession Number(s): [id number] ? cc: Diomedes Shultz; Shalonda Coley MD [...] DD/ 1457 ? TD/TT: 12/23/24 1533 ? Home Service Technician: ? Procedure Note Adalgisa, Image - 12/23/2024 [place] [address] XRay Report Signed Patient: Diana Myles LMR#: [id number] 8 : 1965Acct:[id number] Age/Sex: 59 / FADM Date: 12/23/24 Loc: HO.ED Attending Dr: Ordering Physician: Diomedes Shultz Date of Service: 12/23/24 Procedure(s): XR hip BI w PEL1V Accession Number(s): [id number] cc: Diomedes Shultz; Shalonda Coley MD EXAMINATION: [...] 12/23/24 1543 DD/ 1457 TD/TT: 12/23/24 1533 Home Service Technician: [facility] External Provider IMG XR PROCEDURES Final Result * XR Knee 4+ Views Right (12/23/2024 2:57 PM EST) Anatomical Region Laterality Modality Lower Extremities, Knee Right Radiogra phic Imaging 12/23/2024 2:57 PM EST Narrative 12/23/2024 3:44 PM EST ? [facility] ?[address] ?[place] [address] ?XRay Report ? Signed ? Patient: Diana Myles ?MR#: [id number] ?? 8 ? : 1965 ?Acct:[id number] ? Age/Sex: 59 / F ?ADM Date: 12/23/24 ? Loc: HO.ED ? Attending Dr: ? Ordering Physician: Diomedes Shultz ?? Date of Service: 12/23/24 ?? Procedure(s): XR knee RT 4V ?? Accession Number(s): [id number] ? cc: Diomedes Shultz; Shalonda Coley MD [...] DD/ 1457 ? TD/TT: 12/23/24 1533 ? Home Service Technician: ? Procedure Note Adalgisa, Chin - 12/23/[address] [address] XRay Report Signed Patient: Diana Myles LMR#: [id number] 8 : 1965Acct:[id number] Age/Sex: 59 / FADM Date: 12/23/24 Loc: HO.ED Attending Dr: Ordering Physician: Diomedes Shultz Date of Service: 12/23/24 Procedure(s): XR knee RT 4V Accession Number(s): [id number] cc: Diomedes Shultz; Shalonda Coley MD EXAMINATION: [...] OV> 12/23/24 1541 DD/ TD/TT: 12/23/24 1533 Home Service Technician: us [facility] External Provider IMG XR PROCEDURES Final Result * MR Knee w/o Contrast Left (12/06/2024 6:06 PM EST) Anatomical Region Laterality Modality Magnetic Resonan ce 12/06/2024 6:06 PM EST Narrative 12/08/2024 8:31 AM EST ? [facility] ?[address] ?[place] [address] ? Magnetic Resonance Report ? Signed ? Patient: Myles,Diana L ?MR#: [id number] ?? 8 ? : 1965 ?Acct:[id number] ? Age/Sex: 59 / F ?ADM Date: 12/06/24 ? Loc: HO.MRI ? Attending Dr: Denilson Forman PA-C ? Ordering Physician: Denilson Forman PA-C ?? Date of Service: 12/06/24 ?? Procedure(s): MR knee LT wo con ?? Accession Number(s): [id number] ? cc: Shalonda Coley MD; Denilson Forman [...] by Mathieu Lepe MD in OV> ?12/08/24 08 ? DD/ 1806 ? TD/TT: 12/06/24 181 ? Home Service Technician: ? Procedure Note Adalgisa, Image - 12/08/[address] [address] Magnetic Resonance Report Signed Patient: Diana Myles LMR#: [id number] 8 : 1965Acct:[id number] Age/Sex: 59 / FADM Date: 12/06/24 Loc: HO.MRI Attending Dr: Denilson Forman PA-C Ordering Physician: Denilson Forman PA-C Date of Service: 12/06/24 Procedure(s): MR knee LT wo con Accession Number(s): [id number] cc: Shalonda Coley MD; Denilson Forman PA-C [...] Mathieu Lepe MD 12/08/2024 08:29 AM EST RP Dictated By: Mathieu Lepe MD Signed By: <Electronically signed by Mathieu Lepe MD in OV> 12/08/24 0829 DD/ 05 TD/TT: 12/06/24 181 Home Service Technician: [facility] External Provider IMG MRI PROCEDURES Final Result * BI Mammogram Screening Tomosynthesis Bilateral (11/29/2024 8:45 AM EST) Anatomical Region Laterality Modality Breast Bilateral Mammography 11/29/2024 8:45 AM EST Narrative 12/07/2024 3:35 PM EST ? [facility] ? [address] ?[place] [address] ? Mammography Report ? Signed ? Patient: Myles,Diana L ?MR#: [id number] ?? 8 ? : 1965 ?Acct:[id number] ? Age/Sex: 59 / F ?ADM Date: 11/29/ ? Loc: HO.MAMMO ? Attending Dr: Shalonda Coley MD ? Ordering Physician: Shalonda Coley MD ?Results: 2Be ?? nign Findings ? Date of Service: 11/29/ ?Follow Up: 1 Year From Orig ?? inal Mammogram ? Procedure(s): MM tomosynthesis screening BI ?? Accession Number(s): [id number] ? cc: Shalonda Coley MD ? EXAMINATION: [...] DD/ 0845 ? TD/TT: 11/29/24 0915 ? Home Service Technician: ? Procedure Note Adalgisa, Image - 12/07/2024 [facility] [address] [place] [address] [place] [address] Mammography Report Signed Patient: Diana Myles LMR#: [id number] 8 : 1965Acct:[id number] Age/Sex: 59 / FADM Date: 11/29/24 Loc: HO.MAMMO Attending Dr: Shalonda Coley MD Ordering Physician: Shalonda Coley MDResults: 2Be nign Findings Date of Service: 11/29/24Follow Up: 1 Year From [facility] Mammogram Procedure(s): MM tomosynthesis screening BI Accession Number(s): [id number] cc: Shalonda Coley MD EXAMINATION: MM SCREENING [...] DO 12/07/2024 03:32 PM [facility] Dictated By: Chaparrita Lyn DO Signed By: <Electronically signed by Chaparrita Lyn DO in OV> 12/07/24 1532 DD/ 0845 TD/TT: 11/29/24 0915 Home Service Technician: Shalonda Coley MD [facility] BI PROCEDURES Edited Result - Final * (ABNORMAL) Colonoscopy (07/30/2023) Colonoscopy Abnormal( A) Normal [facility] Comment:SSL polyp us Shalonda Coley MD HEALTH MAINTENANCE Final Result [facility] [address] [place] [address] [phone] * Thinprep PAP and HPV nRNA E6/E7 (10/08/2022 9:30 AM EST) Clinical Information: None given [facility] LMP: NONE GIVEN [employer]-ASP64t Prev. PAP: NONE GIVEN Diamond [employer] Prev. BX: NONE GIVEN [facility] SOURCE: None given [employer] Statement Of Adequacy: SATISFACTORY FOR EVALUATION Age and/or menstrual status not provided [employer] Interpretation/Re sult: [employer] Comment: Negative for intraepithelial lesion or malignancy. Atrophic pattern; predominantly parabasal cells Supervisor Special Education: [employer] Comment: DMM, CT(ASCP) CT screening location: [address] ??[address] Review Supervisor Special Education: [employer] Comment: MAMeet, CT(ASCP) CT screening location: [address] ??[address] (Always Message) [address] [facility] [employer] Comment: EXPLANATORY NOTE: The Pap is a [...] HPV nRNA E6/E7 Not Detected Not Detected [employer] Comment: Methodology: Water Pump Operator-Mediated Amplification This assay detects E6/E7 viral messenger RNA (mRNA) from 14 high-risk HPV types (16,18,31,33,35,39,45,51,52,56,58,59,66,68). Cervical sources are required for HPV testing. If a vaginal source from a patient who has had a total hysterectomy with removal of cervix was submitted, please contact the testing laboratory for alternative testing options. For additional information, please refer to http://education.[employer]/faq/GUR310t7 (This link if provided for information/ educational purposes only.) 10/08/2022 9:30 AM EST 10/10/2022 1:07 AM EST Narrative [facility] - 10/14/2022 7:08 PM EST FASTING: UNKNOWN Shauna Matamoros [facility] PATHOLOGY ORDERABLES Final Result Performing Organization Address City/[facility]/ZIP Co de Phone Number [employer] [address] [place] [address], [place] [address] [facility] [address], [facility] [address] * HIV AB/AG (04/30/2022 11:28 AM EDT) Pathologist [facility] HIV AB/AG Nonreactive Nonreactive [facility] Comment: HIV-1 p24 [...] of detection of this assay. ?? The [employer] HIV Ag/Ab Combo assay result and supplemental assay results should be interpreted in conjunction with the patient's clinical presentation, history and other laboratory results. ??If the results are inconsistent with clinical evidence, additional testing is suggested to confirm the result. Hepatitis B Surface Antibody REACTIVE Nonreactive [facility] Comment:REACTIVE: > 11.99 mI U/mL Hepatitis B Surface Antigen Negative Negative [facility] Hepatitis B Core Antibody Nonreactive Nonreactive [facility] 04/30/2022 11:2 8 AM EDT Shalonda Coley MD HISTORICAL/NON ORDERABLE LABS Final Result [facility] [address] [place] [address], from Last 3 Months or Most Recently Relevant to Health Maintenance Insurance [employer] [employer] [place] ADULT Care Teams Correctional Program Officer Relationship Specialty Start Date End Date Shalonda Coley MD [address] [place] [id number] PCP - General Family Medicine 10/31/16 [place], BEBA [address] [place] [id number] Wetlands TechnicianPeanut Butter Maker 01/12/25
--- OUTSIDE RECORDS SUMMARY | 2025-02-09 16:26 | XMS_ITS | Encounter Summary ---
Author Organization [email or web address] Address [address] [facility] [address] [place] [address] Care Team Providers Care Executive Vice President Name Role Phone Umm Coley MD Primary Care Provider + [place] RN Unavailable [phone] Encounter Details Date Type Department Care Team (Late st Contact Info) Description 11/03/2022 Orders Only [facility] [address] [place], [place] [phone] Umm Coley MD [address] [place], [place] [phone] Osteopenia after menopause (Primary Dx) Social History [...] Description 03/08/2025 10:00 AM EDT Office Visit [facility] [address] [place], [place] [phone] Mariangel Ruff [address] [place] [address] 05/02/2025 10:30 AM EDT Office Visit [facility] [address] [place], [place] [phone] Umm Coley MD [address] [place] [address] [phone] Scheduled Orders Name Type Priority Associated Diagnoses Orde r Schedule Vitamin D, 25-Hydroxy, Total, Immunoassay Lab Routine Osteopenia after menopause Expected: 11/03/2022 (Approximate), Expires: 11/03/2023 PTH, Intact (IC[facility]) And Ionized Calcium Lab Routine Osteopenia after menopause Expected: 11/03/2022 (Approximate), Expires: 11/03/2023 documented as of this encounter Visit Diagnoses Diagnosis Osteopenia after menopause- Primary documented in this encounter Care Teams Executive Vice President Relationship Specialty Start Date End Date Umm Coley MD [address] [place] [phone] PCP - General Family Medicine 10/31/16 [place], BEBA [address] [place] [address] Research AideEvent Mgr 01/12/25 Eva Nunez Research Aide 04/05/24 07/06/24 [employer] [facility] 05/11/24 11/17/24 [facility] 11/14/24 01/17/25 [facility] 12/08/24 documented as of this encounter
--- OUTSIDE RECORDS SUMMARY | 2025-02-09 16:26 | XMS_ITS | Encounter Summary ---
Author Organization [employer] [facility] Address [address] [place] [address] 7t [place] [address] Care Team Providers Care Extrusion Die Repairer Name Role Phone Umm Coley MD Primary Care Provider + West Meier RN Unavailable [phone] Encounter Details Date Type Department Care Team (Latest Contact Info) Description 11/14/2019 Abstract [facility] CONVERSIONS Dental, Provider, DDS Social History [...] Description 03/08/2025 10:00 AM EDT Office Visit [facility] ADULT DENTAL [address] [place] [address] Elzbieta, Mariangel [address] [place] [address] 05/02/2025 10:30 AM EDT Office Visit [facility] MEDICINE [address] [place] [address] Umm Coley MD [address] [place] [address] documented as of this encounter Visit Diagnoses Not on filedocumented in this encounter Care Teams Extrusion Die Repairer Relationship Specialty Start Date End Date Umm Coley MD [address] [place] [address] PCP - General Family Medicine 10/31/16 West Meier, BEBA [address] [place] [address] Restorative AideVeterinary Pharmacologist 01/12/25 Eva Nunez Restorative Aide 04/05/24 07/06/24 [facility] 05/11/24 11/17/24 [facility] 11/14/24 01/17/25 [employer] 12/08/24 documented as of this encounter
--- OUTSIDE RECORDS SUMMARY | 2025-02-09 16:26 | XMS_ITS | Encounter Summary ---
Author Organization [employer] Address 75 [facility] 7t [place] [address] Care Team Providers Care Check Processor Name Role Phone Umm Coley MD Primary Care Provider + West Meier RN Unavailable [phone] Reason for Visit * Reason Onset Date Comments Appointment 02/24/2023 Encounter Details Date Type Department Care Team ([facility] st Contact Info) Description 02/24/2023 Telephone [facility] ADULT DENTAL [address] [place] [address] Johnny Gonzalez, WILIAN [address] [place] [address] Appointment Social History Tobacco Use Types Packs/Day [...] Description 03/08/2025 10:00 AM EDT Office Visit [facility] ADULT DENTAL [address] [place] [address] Elzbieta, Mariangel [address] [place] [address] 05/02/2025 10:30 AM EDT Office Visit [facility] MEDICINE [address] [place] [address] Umm Coley MD [address] [place] [address] documented as of this encounter Visit Diagnoses Not on filedocumented in this encounter Care Teams Check Processor Relationship Specialty Start Date End Date Umm Coley MD [address] [place] [address] PCP - General Family Medicine 10/31/16 West Meier, RN [address] [place] [address] Covered Buckle AssemblerCareer Services Director 01/12/25 Eva Nunez Covered Buckle Assembler 04/05/24 07/06/24 [facility] 05/11/24 11/17/24 [facility] 11/14/24 01/17/25 [employer] 12/08/24 documented as of this encounter
--- OUTSIDE RECORDS SUMMARY | 2025-02-09 16:26 | XMS_ITS | Encounter Summary ---
Author Organization [employer] [facility] Address [address] [place] [address] 7t [place] [address] Care Team Providers Care Hand Router Operator Name Role Phone Umm Coley MD Primary Care Provider + West Meier RN Unavailable [phone] Reason for Visit * Reason Comments Med Refill Encounter Details Date Type Department Care Team (Late Contact Info) Description 08/01/2023 Refill [facility] MEDICINE [address] [place] [address] Umm Coley MD [address] [place] [address] Social History Tobacco Use Types Packs/Day Years [...] Visit [facility] ADULT DENTAL [address] [place] [address] Mariangel Ruff [address] [place] [address] 05/02/2025 10:30 AM EDT Office Visit [facility] MEDICINE [address] [place], [place] [phone] Umm Coley MD [address] [place] [address] documented as of this encounter Visit Diagnoses Not on filedocumented in this encounter Additional Health Concerns Assessment Noted Time PHQ-9 Depression Total Score: 12 023 1:58 PM EDT documented as of this encounter Care Teams Hand Router Operator Relationship Specialty Start Date End Date Umm Coley MD [address] [place] [address] PCP - General Family Medicine 10/31/16 West Meier RN 505 [place] [address] Glass WorkerDust Mill Operator 01/12/25 Eva Nunez Glass Worker 04/05/24 07/06/24 [facility] 05/11/24 11/17/24 [facility] 11/14/24 01/17/25 [employer] 12/08/24 documented as of this encounter
--- OUTSIDE RECORDS SUMMARY | 2025-02-09 16:26 | XMS_ITS | Encounter Summary ---
Author Organization [employer] Address 75 [facility] 7t [place] [address] Care Team Providers Care Ocean Export Coordinator Name Role Phone Umm Coley MD Primary Care Provider + West Meier RN Unavailable [phone] Reason for Visit * Reason Onset Date Comments Appointment Request 01/27/2025 Encounter Details Date Type Department Care Team ([facility] st Contact Info) Description 01/27/2025 Telephone [facility] MEDICINE [address] [place], [place] [phone] Umm Coley MD 230 [place], [place] [phone] Appointment Request Social History Tobacco Use Types [...] encounter Miscellaneous Notes * Telephone Encounter - Kaituska Flaherty RN - 02/07/2025 9:09 AM EDT T/C to pt to F/U re: new VNA this past weekend, no answer left voicemail to return call to [facility]. Will reattempt in PM * Telephone Encounter - Ronny Farrell - 01/27/2025 8:06 AM EDT Tcf from pt requesting a appt with her PCP to talk to her. Pt states that she hasn't seen PCP in a while. Contact pt at [phone] documented in this encounter Plan of Treatment Upcoming Encounters Date Type Department Care Team (Late st Contact Info) Description 03/08/2025 10:00 AM EDT Office Visit [facility] ADULT DENTAL [address] [place] [address] Mariangel Ruff [address] [place] [address] 05/02/2025 10:30 AM EDT Office Visit [facility] MEDICINE [address] [place] [address] Umm Coley MD 230 [place] [address] documented as of this encounter Visit Diagnoses Not on filedocumented in this encounter Additional Health Concerns Assessment Noted Time PHQ-9 Depression Total Score: 10 024 9:17 AM EDT documented as of this encounter Care Teams Ocean Export Coordinator Relationship Specialty Start Date End Date Umm Coley MD [address] [place] [address] PCP - General Family Medicine 10/31/16 West Meier RN [address] [place] [address] Negative AssemblerElectromedical Equipment Technician 01/12/25 [employer] 12/08/24 documented as of this encounter
--- OUTSIDE RECORDS SUMMARY | 2025-02-09 16:26 | XMS_ITS | Encounter Summary ---
Author Organization [facility] [facility] Address [address] [place] [address] 7t [place] [address] Care Team Providers Care Cryptologist Name Role Phone Umm Coley MD Primary Care Provider + West Meier RN Unavailable Encounter Details Date Type Department Care Team (Latest Contact Info) Description 03/13/2022 Abstract [facility] CONVERSIONS Dental, Provider, DDS Social History [...] Description 03/08/2025 10:00 AM EDT Office Visit [facility] ADULT DENTAL [address] [place] [address] Elzbieta, Mariangel [address] [place] [address] 05/02/2025 10:30 AM EDT Office Visit [facility] MEDICINE [address] [place] [address] Umm Coley MD [address] [place] [address] documented as of this encounter Visit Diagnoses Not on filedocumented in this encounter Care Teams Cryptologist Relationship Specialty Start Date End Date Umm Coley MD [address] [place] [address] PCP - General Family Medicine 10/31/16 West Meier, BEBA [address] [place] [address] Tangled Yarn WorkerCommunication And Outreach Manager 01/12/25 Eva Nunez Tangled Yarn Worker 04/05/24 07/06/24 [facility] 05/11/24 11/17/24 [facility] 11/14/24 01/17/25 [employer] 12/08/24 documented as of this encounter
--- OUTSIDE RECORDS SUMMARY | 2025-02-09 16:26 | XMS_ITS | Encounter Summary ---
Author Organization [employer] [facility] Address [address] [place] [address] 7t [place] [address] Care Team Providers Care Reed Man Name Role Phone Umm Coley MD Primary Care Provider + West Meier RN Unavailable [phone] Encounter Details Date Type Department Care Team (Latest Contact Info) Description 11/23/2020 Abstract [facility] CONVERSIONS Dental, Provider, DDS Social [...] 10:00 AM EDT Office Visit [facility] ADULT DENTAL [address] [place] [address] Elzbieta, Mariangel [address] [place] [address] 05/02/2025 10:30 AM EDT Office Visit [facility] MEDICINE [address] [place] [address] Umm Coley MD 230 [place] [address] documented as of this encounter Visit Diagnoses Not on filedocumented in this encounter Care Teams Reed Man Relationship Specialty Start Date End Date Umm Coley MD 230 [place] [address] PCP - General Family Medicine 10/31/16 West Meier, BEBA [address] [place] [address] Container FillerSealer Operator 01/12/25 Eva Nunez Container Filler 04/05/24 07/06/24 [facility] 05/11/24 11/17/24 [facility] 11/14/24 01/17/25 [employer] 12/08/24 documented as of this encounter
--- OUTSIDE RECORDS SUMMARY | 2025-02-09 16:26 | XMS_ITS | Encounter Summary ---
Author Organization [employer] Address [address] [facility] 7t [place] [address] Care Team Providers Care Assignment Editor Name Role Phone Umm Coley MD Primary Care Provider + West Meier RN Unavailable [phone] Reason for Visit * Reason Onset Date Comments Appointment 03/17/2023 Encounter Details Date Type Department Care Team ([facility] st Contact Info) Description 03/17/2023 Telephone [facility] ADULT DENTAL [address] [place] [address] Johnny Gonzalez, WILIAN [address] [place], [place] [phone] Appointment Social History Tobacco Use Types Packs/Day [...] Description 03/08/2025 10:00 AM EDT Office Visit [facility] ADULT DENTAL [address] [place] [address] ElzbietaTrinoMariangel [address] [place] [address] 05/02/2025 10:30 AM EDT Office Visit [facility] MEDICINE [address] [place] [address] Umm Coley MD [address] [place] [address] documented as of this encounter Visit Diagnoses Not on filedocumented in this encounter Care Teams Assignment Editor Relationship Specialty Start Date End Date Umm Coley MD [address] [place] [address] PCP - General Family Medicine 10/31/16 West Meier, RN [address] [place] [address] Dog Food Shredder OperatorField Tech 01/12/25 Eva Nunez Dog Food Shredder Operator 04/05/24 07/06/24 [facility] 05/11/24 11/17/24 [facility] 11/14/24 01/17/25 [employer] 12/08/24 documented as of this encounter
--- OUTSIDE RECORDS SUMMARY | 2025-02-09 16:26 | XMS_ITS | Encounter Summary ---
Author Organization [employer] Address [address] [facility] 7t [place] [address] Care Team Providers Care Placement Assistant Name Role Phone Umm Coley MD Primary Care Provider + West Meier RN Unavailable [phone] Reason for Visit * Reason Onset Date Comments Appointment 06/15/2023 Encounter Details Date Type Department Care Team ([facility] st Contact Info) Description 06/15/2023 Telephone [facility] ADULT DENTAL [address] [place] [address] Johnny Gonzalez, DMD [address] [place], [place] [phone] Appointment Social History Tobacco Use Types Packs/Day [...] scheduled DR * Telephone Encounter - Scarlet Rafael - 06/15/2023 8:22 AM EDT Patient called [...] - [facility] ADULT DENTAL [address] [place] [address] Elzbieta, Mariangel [address] [place] [address] 05/02/2025 10:30 AM EDT Office Visit [facility] MEDICINE [address] [place] [address] Umm Coley MD [address] [place] [address] documented as of this encounter Visit Diagnoses Not on filedocumented in this encounter Additional Health Concerns Assessment Noted Time PHQ-9 Depression Total Score: 12 023 1:58 PM EDT documented as of this encounter Care Teams Placement Assistant Relationship Specialty Start Date End Date Umm Coley MD [address] [place] [address] PCP - General Family Medicine 10/31/16 West Meier, RN [address] [place] [address] Vegetable ThinnerGasket Maker 01/12/25 Eva Nunez Vegetable Thinner 04/05/24 07/06/24 [facility] 05/11/24 11/17/24 [facility] 11/14/24 01/17/25 [employer] 12/08/24 documented as of this encounter
--- OUTSIDE RECORDS SUMMARY | 2025-02-09 16:26 | XMS_ITS | Encounter Summary ---
Author Organization [employer] Address 75 [facility] 7t [place] [address] Care Team Providers Care Volunteer Services Director Name Role Phone Umm Coley MD Primary Care Provider + West Meier RN Unavailable [phone] Reason for Visit * Reason Comments Med Change Request Encounter Details Date Type Department Care Team ([facility] Contact Info) Description 03/20/2023 Refill [facility] ADULT DENTAL [address] [place] [address] Johnny Gonzalez, WILIAN [address] [place] [address] Social History Tobacco Use Types Packs/Day Years [...] 03/08/2025 10:00 AM EDT Office Visit [facility] ADULT DENTAL [address] [place], [place] [phone] Trino Ruffaris [address] [place] [address] 05/02/2025 10:30 AM EDT Office Visit [facility] MEDICINE [address] [place], [place] [phone] Umm Coley MD [address] [place] [address] documented as of this encounter Visit Diagnoses Not on filedocumented in this encounter Care Teams Volunteer Services Director Relationship Specialty Start Date End Date Umm Coley MD 230 [place] [address] PCP - General Family Medicine 10/31/16 West Meier, BEBA [address] [place] [address] Candy Starch Mold PrinterPill Machine Operator 01/12/25 Eva Nunez Candy Starch Mold Printer 04/05/24 07/06/24 [facility] 05/11/24 11/17/24 [facility] 11/14/24 01/17/25 [employer] 12/08/24 documented as of this encounter
--- OUTSIDE RECORDS SUMMARY | 2025-02-09 16:26 | XMS_ITS | Encounter Summary ---
Author Organization [employer] Address 75 [facility] 7t [place] [address] Care Team Providers Care Licensed Land Surveyor Name Role Phone Umm Coley MD Primary Care Provider + West Meier RN Unavailable Reason for Visit * Reason Onset Date Comments pre med prior to dental treatment 08/23/2024 Encounter Details Date Type Department Care Team (Late st Contact Info) Description 08/23/2024 Telephone [facility] ADULT DENTAL [address] [place] [address] Johnny Gonzalez, DMD [address] [place], [place] [phone] pre med prior to dental treatment Social [...] also spoke with Nina in the front line leader with a run through of what was happening with the patient and she stated she would also send something to provider for clarificationDR documented in this encounter Plan of Treatment Upcoming Encounters Date Type Department Care Team (Late st Contact Info) Description 03/08/2025 10:00 AM EDT Office Visit [facility] ADULT DENTAL [address] [place] [address] Elzbieta Mariangel [address] [place] [address] 05/02/2025 10:30 AM EDT Office Visit [facility] MEDICINE [address] [place], [place] [phone] Umm Coley MD 230 [place] [address] documented as of this encounter Visit Diagnoses Not on filedocumented in this encounter Additional Health Concerns Assessment Noted Time PHQ-9 Depression Total Score: 10 024 9:17 AM EDT documented as of this encounter Care Teams Licensed Land Surveyor Relationship Specialty Start Date End Date Umm Coley MD [address] [place] [address] PCP - General Family Medicine 10/31/16 West Meier, RN [address] [place] [address] Rn InfusionInspector Outside Production 01/12/25 [facility] 05/11/24 11/17/24 [facility] 11/14/24 01/17/25 [employer] 12/08/24 documented as of this encounter
--- OUTSIDE RECORDS SUMMARY | 2025-02-09 16:26 | XMS_ITS | Encounter Summary ---
Author Organization [employer] [facility] Address [address] [place] [address] 7t [place] [address] Care Team Providers Care Academic Assistant Name Role Phone Umm Coley MD Primary Care Provider + West Meier RN Unavailable [phone] Encounter Details Date Type Department Care Team (Late st Contact Info) Description 09/24/2022 Abstract [facility] ADULT DENTAL [address] [place] [address] Dental, Provider, DDS Social History Tobacco Use [...] [facility] ADULT DENTAL [address] [place] [address] Mariangel Ruff [address] [place] [address] 05/02/2025 10:30 AM EDT Office Visit [facility] MEDICINE [address] [place] [address] Umm Coley MD [address] [place] [address] documented as of this encounter Procedures Procedure [...] on filedocumented in this encounter Care Teams Academic Assistant Relationship Specialty Start Date End Date Umm Coley MD [address] [place] [address] PCP - General Family Medicine 10/31/16 West Meier, BEBA [address] [place] [address] International Logistics ManagerAircraft Engine Specialist 01/12/25 Eva Nunez International Logistics Manager 04/05/24 07/06/24 [facility] 05/11/24 11/17/24 [facility] 11/14/24 01/17/25 [employer] 12/08/24 documented as of this encounter
--- OUTSIDE RECORDS SUMMARY | 2025-02-09 16:26 | XMS_ITS | Encounter Summary ---
Author Organization [employer] Address 75 [facility] 7t [place] [address] Care Team Providers Care Truck Service Manager Name Role Phone Umm Coley MD Primary Care Provider + West Meier RN Unavailable [phone] Reason for Visit * Reason Onset Date Comments Durable Medical Equipment 02/07/2025 DME Sc ript Handheld Shower(L&C) Encounter Details Date Type Department Care Team (Late st Contact Info) Description 02/07/2025 Telephone [facility] MEDICINE [address] [place], [place] [phone] Umm Coley MD [address] [place], [place] [phone] Durable Medical Equipment (DME Script Handheld Shower(L&C)) Social History Tobacco Use Types Packs/Day Years [...] encounter Miscellaneous Notes * Telephone Encounter - Sandra Horvath [place] - 02/07/2025 10:20 AM EDT DME generated Script for Handheld Shower sign and fax to L&C. * Telephone Encounter - Rossana Lawrence - 02/07/2025 9:35 AM EDT Tc from pt stating received a call today from [facility], telegraphic typewriter repairer not sure who was there's no notes regarding an outgoing call. documented in this encounter Plan of Treatment Upcoming Encounters Date Type Department Care Team (Late st Contact Info) Description 03/08/2025 10:00 AM EDT Office Visit [facility] ADULT DENTAL [address] [place] [address] Elzbieta, Mariangel [address] [place] [address] 05/02/2025 10:30 AM EDT Office Visit [facility] MEDICINE [address] [place] [address] Umm Coley MD [address] [place] [address] documented as of this encounter Visit Diagnoses Not on filedocumented in this encounter Additional Health Concerns Assessment Noted Time PHQ-9 Depression Total Score: 10 024 9:17 AM EDT documented as of this encounter Care Teams Truck Service Manager Relationship Specialty Start Date End Date Umm Coley MD [address] [place] [address] PCP - General Family Medicine 10/31/16 West Meier, BEBA [address] [place] [address] Slip SheeterRadiator Repairer 01/12/25 documented as of this encounter
--- OUTSIDE RECORDS SUMMARY | 2025-02-09 16:26 | XMS_ITS | Encounter Summary ---
Author Organization [employer] [facility] Address 75 [facility] 7t [place] [address] Care Team Providers Care Marshmallow Machine Worker Name Role Phone Umm Coley MD Primary Care Provider + West Meier RN Unavailable Reason for Visit * Reason Comments Med Refill Encounter Details Date Type Department Care Team ([facility] st Contact Info) Description 05/21/2023 Refill [facility] MEDICINE 230 [place], [place] [phone] Umm Coley MD 230 [place], [place] [phone] Arthritis of knee Social History Tobacco Use [...] [facility] ADULT DENTAL [address] [place], [place] [phone] Mariangel Ruff [address] [place] [address] 05/02/2025 10:30 AM EDT Office Visit [facility] MEDICINE [address] [place] [address] Umm Coley MD [address] [place] [address] documented as of this encounter Visit Diagnoses Diagnosis Arthritis of knee Unspecified arthropathy, lower leg documented in this encounter Additional Health Concerns Assessment Noted Time PHQ-9 Depression Total Score: 12 023 1:58 PM EDT documented as of this encounter Care Teams Marshmallow Machine Worker Relationship Specialty Start Date End Date Umm Coley MD [address] [place] [address] PCP - General Family Medicine 10/31/16 West Meier, BEBA [address] [place] [address] Machine Shop WorkerPond Tender 01/12/25 Eva Nunez Machine Shop Worker 04/05/24 07/06/24 [facility] 05/11/24 11/17/24 [facility] 11/14/24 01/17/25 [employer] 12/08/24 documented as of this encounter
--- OUTSIDE RECORDS SUMMARY | 2025-02-09 16:26 | XMS_ITS | Encounter Summary ---
Author Organization [employer] [facility] Address [address] [place] [address] 7t [place] [address] Care Team Providers Care Knitting Machine Fixer Name Role Phone Umm Coley MD Primary Care Provider + West Meier RN Unavailable [phone] Reason for Visit * Reason Comments Med Refill Encounter Details Date Type Department Care Team (Late Contact Info) Description 06/10/2023 Refill [facility] MEDICINE [address] [place] [address] Yenny Morris MD [address] [place] [address] Rash Social History Tobacco Use Types Packs/Day [...] [facility] [address] [place] [address] Mariangel Ruff [address] [place] [address] 05/02/2025 10:30 AM EDT Office Visit [facility] MEDICINE [address] [place], [place] [phone] Umm Coley MD [address] [place] [address] documented as of this encounter Visit Diagnoses Diagnosis Rash Rash and other nonspecific skin eruption documented in this encounter Additional Health Concerns Assessment Noted Time PHQ-9 Depression Total Score: 12 023 1:58 PM EDT documented as of this encounter Care Teams Knitting Machine Fixer Relationship Specialty Start Date End Date Umm Coley MD [address] [place] [address] PCP - General Family Medicine 10/31/16 West Meier, BEBA [address] [place] [address] Senior Environmental TechnicianTamale Maker 01/12/25 Eva Nunez Senior Environmental Technician 04/05/24 07/06/24 [facility] 05/11/24 11/17/24 [facility] 11/14/24 01/17/25 [employer] 12/08/24 documented as of this encounter
--- OUTSIDE RECORDS SUMMARY | 2025-02-09 16:26 | XMS_ITS | Encounter Summary ---
Author Organization [employer] Address [address] [place] [address] 7t [place] [address] Care Team Providers Care Shear Operator Helper Name Role Phone Umm oCley MD Primary Care Provider + West Meier RN Unavailable [phone] Encounter Details Date Type Department Care Team (Late Contact Info) Description 03/05/2023 Orders Only [facility] MEDICINE [address] [place] [address] Umm Coley MD [address] [place] [address] Social History Tobacco Use Types Packs/Day Years [...] Visit [facility] ADULT DENTAL [address] [place], [place] [phone] Mariangel Ruff [address] [place] [address] 05/02/2025 10:30 AM EDT Office Visit [facility] MEDICINE [address] [place], [place] [phone] Umm Coley MD 230 [place], [place] [phone] documented as of this encounter Visit Diagnoses Not on filedocumented in this encounter Care Teams Shear Operator Helper Relationship Specialty Start Date End Date Umm Coley MD 230 [place], [place] [phone] PCP - General Family Medicine 10/31/16 West Meier, RN [address] [place] [address] Photographer StillHuman Intelligence 01/12/25 Eva Nunez Photographer Still 04/05/24 07/06/24 [facility] 05/11/24 11/17/24 [facility] 11/14/24 01/17/25 [employer] 12/08/24 documented as of this encounter
--- OUTSIDE RECORDS SUMMARY | 2025-02-09 16:26 | XMS_ITS | Encounter Summary ---
Author Organization [employer] [facility] Address 75 [facility] 7t [place] [address] Care Team Providers Care Conference Organizer Name Role Phone Umm Coley MD Primary Care Provider + West Meier RN Unavailable [phone] Reason for Visit * Reason Comments Med Refill Encounter Details Date Type Department Care Team (Late st Contact Info) Description 02/05/2023 Refill [facility] MEDICINE [address] [place] [address] Umm Coley MD [address] [place] [address] Arthritis of knee Social History Tobacco Use [...] Visit [facility] ADULT DENTAL [address] [place], [place] [phone] Mariangel Ruff [address] [place] [address] 05/02/2025 10:30 AM EDT Office Visit [facility] MEDICINE [address] [place], [place] [phone] Umm Coley MD [address] [place] [address] documented as of this encounter Visit Diagnoses Diagnosis Arthritis of knee Unspecified arthropathy, lower leg documented in this encounter Care Teams Conference Organizer Relationship Specialty Start Date End Date Umm Coley MD [address] [place] [address] PCP - General Family Medicine 10/31/16 West Meier RN 505 [place] [address] Family Nurse PractitionerTypists Supervisor 01/12/25 Eva Nunez Family Nurse Practitioner 04/05/24 07/06/24 [facility] 05/11/24 11/17/24 [facility] 11/14/24 01/17/25 [employer] 12/08/24 documented as of this encounter
--- OUTSIDE RECORDS SUMMARY | 2025-02-09 16:26 | XMS_ITS | Encounter Summary ---
Author Organization [employer] Address 75 [facility] 7t [place] [address] Care Team Providers Care Shot Dropper Name Role Phone Umm Coley MD Primary Care Provider + West Meier RN Unavailable [phone] Encounter Details Date Type Department Care Team ([facility] st Contact Info) Description 08/23/2024 Orders Only [facility] CHC ADULT DENTAL [address] [place], [place] [phone] Johnny Gonzalez, DMD 505 [place] [address] Social History Tobacco Use Types Packs/Day Years [...] 03/08/2025 10:00 AM EDT Office Visit [facility] ADULT DENTAL [address] [place] [address] Elzbieta, Mariangel 230 [place] [address] 05/02/2025 10:30 AM EDT Office Visit [facility] MEDICINE [address] [place] [address] Umm Coley MD [address] [place] [address] documented as of this encounter Visit Diagnoses Not on filedocumented in this encounter Additional Health Concerns Assessment Noted Time PHQ-9 Depression Total Score: 10 024 9:17 AM EDT documented as of this encounter Care Teams Shot Dropper Relationship Specialty Start Date End Date Umm Coley MD [address] [place] [address] PCP - General Family Medicine 10/31/16 West Meier, RN 505 [place] [address] Resistor TesterTire Installer 01/12/25 [facility] 05/11/24 11/17/24 Mir Al[facility] 11/14/24 01/17/25 [employer] 12/08/24 documented as of this encounter
--- OUTSIDE RECORDS SUMMARY | 2025-02-09 16:26 | XMS_ITS | Encounter Summary ---
Author Organization [employer] Address 75 [facility] 7t [place] [address] Care Team Providers Care Horticulture Superintendent Name Role Phone Umm Coley MD Primary Care Provider + West Meier RN Unavailable [phone] Reason for Visit * Reason Comments Med Change Request Encounter Details Date Type Department Care Team ([facility] Contact Info) Description 03/20/2023 Refill [facility] ADULT DENTAL [address] [place] [address] Johnny Gonzalez DMD 505 [place] [address] Social History Tobacco Use Types Packs/Day Years [...] Description 03/08/2025 10:00 AM EDT Office Visit [facility] ADULT DENTAL [address] [place], [place] [phone] Trino Ruffaris [address] [place] [address] 05/02/2025 10:30 AM EDT Office Visit [facility] MEDICINE [address] [place], [place] [phone] Umm Coley MD [address] [place] [address] documented as of this encounter Visit Diagnoses Not on filedocumented in this encounter Care Teams Horticulture Superintendent Relationship Specialty Start Date End Date Umm Coley MD 230 [place] [address] PCP - General Family Medicine 10/31/16 West Meier, BEBA 505 [place] [address] Windows And Doors InstallerTube Closing Machine Operator 01/12/25 Eva Nunez Windows And Doors Installer 04/05/24 07/06/24 [facility] 05/11/24 11/17/24 [facility] 11/14/24 01/17/25 [employer] 12/08/24 documented as of this encounter
--- OUTSIDE RECORDS SUMMARY | 2025-02-09 16:26 | XMS_ITS | Encounter Summary ---
Author Organization [email or web address] [facility] Address [address] [place] [address] 7t [place] [address] Care Team Providers Care Raking Machine Operator Name Role Phone Umm Coley MD Primary Care Provider + West Meier RN Unavailable [phone] Encounter Details Date Type Department Care Team (Latest Contact Info) Description 09/16/[address] [facility] CONVERSIONS Dental, Provider, DDS Social History [...] [facility] [address] [place] [address] Elzbieta, Mariangel [address] [place] [address] 05/02/2025 10:30 AM EDT Office Visit [facility] MEDICINE [address] [place] [address] Umm Coley MD [address] [place] [address] documented as of this encounter Visit Diagnoses Not on filedocumented in this encounter Care Teams Raking Machine Operator Relationship Specialty Start Date End Date Umm Coley MD [address] [place] [address] PCP - General Family Medicine 10/31/16 West Meier, BEBA [address] [place] [address] Stone SetterRolled Materials Worker 01/12/25 Eva Nunez Stone Setter 04/05/24 07/06/24 [facility] 05/11/24 11/17/24 [facility] 11/14/24 01/17/25 [employer] (?) 12/08/24 documented as of this encounter
== END 2025-02-09 14:04 | disposition home or self-care (01) ==
LOC: HO.HPS 13:36
PROVIDERS: PCP Internal Medicine; Visit Provider Internal Medicine Pulmonary Disease
DX: J45.909 Unspecified asthma, uncomplicated (principal); R06.00 Dyspnea, unspecified
CPT/HCPCS: 99214

== ENCOUNTER → 2025-02-09 13:35 | Outpatient (BNVA) | payer MEDICAID, SELFPAY | PROVIDERS: PCP Internal Medicine; Visit Provider Internal Medicine Pulmonary Disease | DX: J45.909 Unspecified asthma, uncomplicated (principal); R06.00 Dyspnea, unspecified | CPT/HCPCS: 99212 ==

== ENCOUNTER 2025-02-15 12:48 | Outpatient (REF) | payer MEDICAID, SELFPAY ==
--- NOTE | ~2025-02-15 | XR_ITS ---
EXAMINATION: XR WRIST 3 OR MORE VIEWS RIGHT HISTORY: M25.531 - Pain in right wrist COMPARISON: Comparison is made with the prior examination dated 02/01/2025. FINDINGS: Three views of the right wrist are submitted. The bones are osteopenic. The patient is again noted to be status post internal fixation of a fracture of the distal radius with a sideplate and multiple orthopedic screws. The fracture line is less well visualized, consistent with healing. Again seen is a fracture of the ulnar metaphysis as well as a fracture of the ulnar styloid. The joint spaces are preserved. The soft tissues are unremarkable. XR/XR wrist RT min 3V IMPRESSION: Healing internally fixed fracture of the distal radius. Additional fractures of the ulnar metaphysis and ulnar styloid. Electronically signed by: Beka Packer MD 02/16/2025 09:21 AM EDT
== END 2025-02-15 12:49 | disposition home or self-care (01) ==
LOC: HO.HOSX 12:48
PROVIDERS: PCP Internal Medicine
DX: S52.501A Unspecified fracture of the lower end of right radius, initial encounter for closed fracture (principal); M25.531 Pain in right wrist
CPT/HCPCS: 73110; 99212

== ENCOUNTER 2025-02-15 12:48 | Outpatient (AMB) | payer MEDICAID, SELFPAY ==
--- NOTE | 2025-02-15 13:00 | MHC.OFFVIS ---
Intake Visit Reasons: PO: Rt wrist ORIF/Rt CTR DOS 01/02/25 Intake Note: Diana is a 59 year old right hand dominant female who presents today for a wound check/post-operatively status post right distal radius fracture ORIF and right carpal tunnel release DOS: 01/02/[address] Sydney Cleveland. Patient reports she is still having pain. She has gone to OT where they gave her home exercises and warm compresses. Commercial Construction Superintendent Services: Commercial Construction Superintendent Present (Randy ([id number])) Allergies codeine [CODEINE] Allergy (Intermediate, Verified 02/15/25 13:09) DIZZY/NAUSEA, nausea/vomiting escitalopram [From LEXAPRO] Allergy (Intermediate, Verified 02/15/25 13:09) ? NAUSEA meperidine [MEPERIDINE] Allergy (Intermediate, Verified 02/15/25 13:09) NAUSEA morphine [MORPHINE] Allergy (Intermediate, Verified 02/15/25 13:09) PALPITATIONS, palpitation oxycodone [OXYCODONE] Allergy (Intermediate, Verified 02/15/25 13:09) PALPATATIONS, palpitations tramadol Allergy (Unknown, Verified 02/15/25 13:09) dizziness, nausea HPI HPI PO: Rt wrist ORIF/Rt CTR DOS 01/02/25: Details: Diana is a 59 year old right hand dominant female who presents today for a wound check/post-operatively status post right distal radius fracture ORIF and right carpal tunnel release DOS: 01/02/[address] Sydney Cleveland. Patient reports she is still having pain. She has gone to OT where they gave her home exercises and warm compresses. Patient reports she is still experiencing very significant stiffness, and then her range of motion is diminished from where it was before surgery. Denies numbness or tingling. [facility] Medical History Primary osteoarthritis of right hand Migraine Right shoulder pain Rotator cuff tendinitis Arthritis of right shoulder region Right hand pain Breast cancer, right Status post radiation therapy Anemia Diarrhea Depression Somatization disorder Migraine equivalent syndrome Anxiety Periodontal disease Fibromyalgia Surgical History History of esophagogastroduodenoscopy (EGD) History of lumpectomy Hx of section Hx of shoulder surgery Hx of colonoscopy Family History Mother HTN (hypertension) Sister Breast cancer Bone cancer Colon polyps Sister Osteoporosis Hypercholesteremia Colon polyps Social History Household Members: None Housing: Apartment Are you a primary health and social care teacher to a significant other at home: No Do you presently have visiting nurse or other home services: No Alcohol intake: never Patient Tobacco Use Status: Former Tobacco user Years Smoked: 3 service: No Current occupational status: disabled 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 Review of Systems Const All systems reviewed & are unremarkable except as noted in HPI and below Physical Exam Extrem Other: Incision sites on R wrists well approximated, well healing, no evidence of infection No evidence of surrounding erythema However, there is erythema noted on the dorsal radial styloid and ulnar styloid, improved from last visit Ecchymosis resolved Patient does experience significant stiffness in the digits of the right hand, but the patient states that this is present long before surgery Patient was only able to supinate to approximately 10 degrees past neutral, pronation almost full and intact Compartments soft, nontender Distal sensation intact Capillary refill brisk Results Reviewed Results Reviewed: X-rays obtained in the office today and independently reviewed by me, Zhou Sosa PA-C, demonstrate surgically reduced fracture of the right distal radius with orthopedic hardware in satisfactory clinical alignment. Assessment & Plan Assessment & Plan (1) Fracture of right distal radius: Code(s): S52.501A - Unspecified fracture of the lower end of right radius, initial encounter for closed fracture Category: Medical Plan 1. Status post right distal radius ORIF DOS 01/02/2025 Patient appears to be recovering postoperatively Patient is educated typical recovery course This time, patient advised that she should only wear the Velcro wrist splint when she is leaving house Patient was advised she should remove the splint while at rest to begin working on gentle range of motion of the right wrist and hand Due to the nature of the patient's significant stiffness, I have also placed a referral to occupational therapy for early range of motion and gentle strengthening of the right wrist with a 5 lb weight limit, as I feel this would benefit the patient tremendously, as I am not sure she is working on range of motion at home adequately Patient was amenable to this plan Orders: Orders XR wrist RT min 3V Today M25.531 - Pain in right wrist Coding Level of Care Code Global (97956) Diagnoses Fracture of right distal radius S52.501A
--- OUTSIDE RECORDS SUMMARY | 2025-02-15 15:08 | XMS_ITS | Encounter Summary ---
Author Organization [employer] Address 75 [facility] 7t [place] [address] Care Team Providers Care Code Inspector Name Role Phone Umm Coley MD Primary Care Provider + West Meier RN Unavailable [phone] Reason for Visit * Reason Onset Date Comments appt 01/08/2024 Encounter Details Date Type Department Care Team ([facility] st Contact Info) Description 01/08/2024 Telephone [facility] CHC ADULT DENTAL [address] [place] [address] Homer Strong, DMD [address] [place] [address] appt Social History Tobacco Use Types Packs/Day [...] [facility] ADULT DENTAL [address] [place] [address] Trino Ruffaris [address] [place] [address] 05/02/2025 10:30 AM EDT Office Visit [facility] MEDICINE [address] [place] [address] Umm Coley MD 230 [place] [address] documented as of this encounter Visit Diagnoses Not on filedocumented in this encounter Additional Health Concerns Assessment Noted Time PHQ-9 Depression Total Score: 21 024 11:31 AM EST documented as of this encounter Care Teams Code Inspector Relationship Specialty Start Date End Date Umm Coley MD 230 [place] [address] PCP - General Family Medicine 10/31/16 West Meier, BEBA [address] [place] [address] Home Stereo Equipment Installer6Th Grade Teacher 01/12/25 Eva Nunez Home Stereo Equipment Installer 04/05/24 07/06/24 [facility] 05/11/24 11/17/24 [facility] 11/14/24 01/17/25 [employer] 12/08/24 documented as of this encounter
--- OUTSIDE RECORDS SUMMARY | 2025-02-15 15:09 | XMS_ITS | Encounter Summary ---
Author Organization [employer] Address 75 [facility] 7t [place] [address] Care Team Providers Care Camera Repairman Name Role Phone Umm Coley MD Primary Care Provider + West Meier RN Unavailable [phone] Encounter Details Date Type Department Care Team ([facility] st Contact Info) Description 08/23/2024 Orders Only [facility] CHC ADULT DENTAL [address] [place], [place] [phone] Johnny Gonzalez, DMD [address] [place] [address] Social History Tobacco Use Types Packs/Day Years [...] 03/08/2025 10:00 AM EDT Office Visit [facility] ADULT DENTAL [address] [place] [address] Elzbieta, Mariangel [address] [place] [address] 05/02/2025 10:30 AM EDT Office Visit [facility] MEDICINE [address] [place] [address] Umm Coley MD [address] [place] [address] documented as of this encounter Visit Diagnoses Not on filedocumented in this encounter Additional Health Concerns Assessment Noted Time PHQ-9 Depression Total Score: 10 024 9:17 AM EDT documented as of this encounter Care Teams Camera Repairman Relationship Specialty Start Date End Date Umm Coley MD 230 [place] [address] PCP - General Family Medicine 10/31/16 West Meier, RN [address] [place] [address] Press Tender Smoke SignalCloth Edge Singer 01/12/25 [facility] 05/11/24 11/17/24 Mir Almonte 11/14/24 01/17/25 [employer] 12/08/24 documented as of this encounter
--- OUTSIDE RECORDS SUMMARY | 2025-02-15 15:09 | XMS_ITS | Encounter Summary ---
Author Organization [employer] Address 75 [facility] 7t [place] [address] Care Team Providers Care Senior Branch Manager Name Role Phone Umm Coley MD Primary Care Provider + West Meier RN Unavailable [phone] Reason for Visit * Reason Onset Date Comments Care Management 02/10/2025 C3- Follow up call # 2 Encounter Details Date Type Department Care Team ([facility] st Contact Info) Description 02/10/2025 Telephone [facility] MEDICINE [address] [place], [place] [phone] Umm Coley MD [address] [place], [place] [phone] Care Management (C3CM- Follow up call # 2) Social History Tobacco Use Types Packs/Day Years [...] Telephone Encounter - West Meier RN - 02/10/2025 11:36 AM EDT CM West Meier RN placed outbound call for follow up call. No answer at this time. LVM introducing myself from [facility] CM Department. Requested call back. CM reinforced direct contactinformation for any additional questions or concerns. Education provided on [facility]In Urgent Care located in [facility] of [facility]. Patient provided with after-hours line for [facility], , which offer night time triage service and option to transfer to infusion nurse provider if needed. CM will attempt another follow up call within 10 days. documented in this encounter Plan of Treatment Upcoming Encounters Date Type Department Care Team (Late st Contact Info) Description 03/08/2025 10:00 AM EDT Office Visit [facility] ADULT DENTAL [address] [place], [place] [phone] Mariangel Ruff [address] [place] [address] 05/02/2025 10:30 AM EDT Office Visit [facility] MEDICINE [address] [place] [address] Umm Coley MD [address] [place] [address] documented as of this encounter Visit Diagnoses Not on filedocumented in this encounter Additional Health Concerns Assessment Noted Time PHQ-9 Depression Total Score: 10 024 9:17 AM EDT documented as of this encounter Care Teams Senior Branch Manager Relationship Specialty Start Date End Date Umm Coley MD [address] [place] [address] PCP - General Family Medicine 10/31/16 West Meier, RN [address] [place] [address] Manufactured Buildings SupervisorNight Order Selector 01/12/25 documented as of this encounter
--- OUTSIDE RECORDS SUMMARY | 2025-02-15 15:09 | XMS_ITS | Encounter Summary ---
Author Organization [employer] [facility] Address 75 [facility] 7t [place] [address] Care Team Providers Care Superintendent Ammunition Storage Name Role Phone Umm Coley MD Primary Care Provider + West Meier RN Unavailable [phone] Reason for Visit * Reason Comments Med Refill Encounter Details Date Type Department Care Team ([facility] st Contact Info) Description 05/21/2023 Refill [facility] MEDICINE [address] [place], [place] [phone] Umm Coley MD [address] [place], [place] [phone] Arthritis of knee Social History Tobacco Use [...] Description 03/08/2025 10:00 AM EDT Office Visit [facility] ADULT DENTAL [address] [place], [place] [phone] Mariangel Ruff [address] [place] [address] 05/02/2025 10:30 AM EDT Office Visit [facility] MEDICINE [address] [place] [address] Umm Coley MD [address] [place] [address] documented as of this encounter Visit Diagnoses Diagnosis Arthritis of knee Unspecified arthropathy, lower leg documented in this encounter Additional Health Concerns Assessment Noted Time PHQ-9 Depression Total Score: 12 023 1:58 PM EDT documented as of this encounter Care Teams Superintendent Ammunition Storage Relationship Specialty Start Date End Date Umm Coley MD [address] [place] [address] PCP - General Family Medicine 10/31/16 West Meier, BEBA [address] [place] [address] Health Program SpecialistCoffee Attendant 01/12/25 Eva Nunez Health Program Specialist 04/05/24 07/06/24 [facility] 05/11/24 11/17/24 [facility] 11/14/24 01/17/25 [employer] 12/08/24 documented as of this encounter
--- OUTSIDE RECORDS SUMMARY | 2025-02-15 15:09 | XMS_ITS | Encounter Summary ---
Author Organization [facility] [facility] Address [address] [place] [address] 7t [place] [address] Care Team Providers Care Type Soldering Machine Tender Name Role Phone Umm Coley MD Primary Care Provider + West Meier RN Unavailable [phone] Encounter Details Date Type Department Care Team (Latest Contact Info) Description 11/14/2019 Abstract [facility] CONVERSIONS Dental, Provider, DDS Social History [...] [facility] ADULT DENTAL [address] [place] [address] Elzbieta, Mariangel [address] [place] [address] 05/02/2025 10:30 AM EDT Office Visit [facility] MEDICINE [address] [place] [address] Umm Coley MD [address] [place] [address] documented as of this encounter Visit Diagnoses Not on filedocumented in this encounter Care Teams Type Soldering Machine Tender Relationship Specialty Start Date End Date Umm Coley MD [address] [place] [address] PCP - General Family Medicine 10/31/16 West Meier, BEBA [address] [place] [address] Boots And Shoes SupervisorDental Floss Packer 01/12/25 Eva Nunez Boots And Shoes Supervisor 04/05/24 07/06/24 [facility] 05/11/24 11/17/24 [facility] 11/14/24 01/17/25 [employer] 12/08/24 documented as of this encounter
--- OUTSIDE RECORDS SUMMARY | 2025-02-15 15:09 | XMS_ITS | Encounter Summary ---
Author Organization [employer] [facility] Address 75 [facility] 7t [place] [address] Care Team Providers Care Petroleum Plant Operator Name Role Phone Umm Coley MD Primary Care Provider + West Meier RN Unavailable [phone] Reason for Visit * Reason Comments Med Refill Encounter Details Date Type Department Care Team (Late st Contact Info) Description 02/05/2023 Refill [facility] MEDICINE [address] [place] [address] Umm Coley MD [address] [place] [address] Arthritis of knee Social History Tobacco Use [...] [facility] ADULT [facility] [address] [place], [place] [phone] Mariangel Ruff [address] [place] [address] 05/02/2025 10:30 AM EDT Office Visit [facility] MEDICINE [address] [place], [place] [phone] Umm Coley MD [address] [place] [address] documented as of this encounter Visit Diagnoses Diagnosis Arthritis of knee Unspecified arthropathy, lower leg documented in this encounter Care Teams Petroleum Plant Operator Relationship Specialty Start Date End Date Umm Coley MD [address] [place] [address] PCP - General Family Medicine 10/31/16 West Meier RN [address] [place] [address] Lifestyle ConsultantCylinder Dyer 01/12/25 Eva Nunez Lifestyle Consultant 04/05/24 07/06/24 [facility] 05/11/24 11/17/24 [facility] 11/14/24 01/17/25 [employer] 12/08/24 documented as of this encounter
--- OUTSIDE RECORDS SUMMARY | 2025-02-15 15:09 | XMS_ITS | Encounter Summary ---
Author Organization [employer] [facility] Address [address] [place] [address] 7t [place] [address] Care Team Providers Care Plastic Parts Fabricator Trimmer Name Role Phone Umm Coley MD Primary Care Provider + West Meier RN Unavailable [phone] Reason for Visit * Reason Comments Med Refill Encounter Details Date Type Department Care Team (Late Contact Info) Description 08/01/2023 Refill [facility] MEDICINE [address] [place] [address] Umm Coley MD [address] [place] [address] Social History Tobacco Use Types Packs/Day Years [...] [facility] ADULT DENTAL [address] [place] [address] Mariangel Ruff [address] [place] [address] 05/02/2025 10:30 AM EDT Office Visit [facility] MEDICINE [address] [place], [place] [phone] Umm Coley MD [address] [place] [address] documented as of this encounter Visit Diagnoses Not on filedocumented in this encounter Additional Health Concerns Assessment Noted Time PHQ-9 Depression Total Score: 12 023 1:58 PM EDT documented as of this encounter Care Teams Plastic Parts Fabricator Trimmer Relationship Specialty Start Date End Date Umm Coley MD [address] [place] [address] PCP - General Family Medicine 10/31/16 West Meier RN [address] [place] [address] Human Capital ManagerScrap Drop Crane Operator 01/12/25 Eva Nunez Human Capital Manager 04/05/24 07/06/24 [facility] 05/11/24 11/17/24 [facility] 11/14/24 01/17/25 [employer] 12/08/24 documented as of this encounter
--- OUTSIDE RECORDS SUMMARY | 2025-02-15 15:09 | XMS_ITS | Encounter Summary ---
Author Organization [employer] Address [address] [facility] 7t [place] [address] Care Team Providers Care Lpn Cma Name Role Phone Umm Coley MD Primary Care Provider + West Meier RN Unavailable Encounter Details Date Type Department Care Team (Late st Contact Info) Description 11/03/2022 Orders Only [facility] MEDICINE [address] [place], [place] [phone] Umm Coley MD [address] [place], [place] [phone] Osteopenia after menopause (Primary Dx) Social History [...] Visit [facility] ADULT DENTAL [address] [place], [place] [phone] Mariangel Ruff [address] [place] [address] 05/02/2025 10:30 AM EDT Office Visit [facility] MEDICINE [address] [place], [place] [phone] Umm Coley MD [address] [place] [address] [phone] Scheduled Orders Name Type Priority Associated Diagnoses Orde r Schedule Vitamin D, 25-Hydroxy, Total, Immunoassay Lab Routine Osteopenia after menopause Expected: 11/03/2022 (Approximate), Expires: 11/03/2023 PTH, Intact (ICMA) And Ionized Calcium Lab Routine Osteopenia after menopause Expected: 11/03/2022 (Approximate), Expires: 11/03/2023 documented as of this encounter Visit Diagnoses Diagnosis Osteopenia after menopause- Primary documented in this encounter Care Teams Lpn Cma Relationship Specialty Start Date End Date Umm Coley MD [address] [place] [address] PCP - General Family Medicine 10/31/16 West Meier, BEBA [address] [place] [address] Java Programmer AnalystProduction Utility Worker 01/12/25 Eva Nunez Java Programmer Analyst 04/05/24 07/06/24 [facility] 05/11/24 11/17/24 [facility] 11/14/24 01/17/25 [employer] 12/08/24 documented as of this encounter
--- OUTSIDE RECORDS SUMMARY | 2025-02-15 15:09 | XMS_ITS | Encounter Summary ---
Author Organization [email or web address] Address [address] [facility] 7t [place] [address] Care Team Providers Care Rod Hanger Name Role Phone Umm Coley MD Primary Care Provider + West Meier RN Unavailable [phone] Reason for Visit * Reason Onset Date Comments Appointment 02/24/2023 Encounter Details Date Type Department Care Team ([facility] st Contact Info) Description 02/24/2023 Telephone [facility] ADULT DENTAL [address] [place] [address] Johnny Gonzalez, WILIAN [address] [place] [address] Appointment Social History Tobacco Use Types Packs/Day [...] [facility] ADULT DENTAL [address] [place] [address] Elzbieta, Mariangel [address] [place] [address] 05/02/2025 10:30 AM EDT Office Visit [facility] MEDICINE [address] [place] [address] Umm Coley MD [address] [place] [address] documented as of this encounter Visit Diagnoses Not on filedocumented in this encounter Care Teams Rod Hanger Relationship Specialty Start Date End Date Umm Coley MD [address] [place] [address] PCP - General Family Medicine 10/31/16 West Meier, RN [address] [place] [address] Photographer AerialCartographic Aide 01/12/25 Eva Nunez Photographer Aerial 04/05/24 07/06/24 [facility] 05/11/24 11/17/24 [facility] 11/14/24 01/17/25 [employer] 12/08/24 documented as of this encounter
--- OUTSIDE RECORDS SUMMARY | 2025-02-15 15:09 | XMS_ITS | Encounter Summary ---
Author Organization [employer] Address [address] [facility] 7t [place] [address] Care Team Providers Care Load Out Supervisor Name Role Phone Umm Coley MD Primary Care Provider + West Meier RN Unavailable [phone] Reason for Visit * Reason Onset Date Comments Appointment 03/17/2023 Encounter Details Date Type Department Care Team ([facility] st Contact Info) Description 03/17/2023 Telephone [facility] ADULT DENTAL [address] [place] [address] Johnny Gonzalez, DMD [address] [place], [place] [phone] Appointment Social History Tobacco Use Types Packs/Day [...] Description 03/08/2025 10:00 AM EDT Office Visit [facility] ADULT DENTAL [address] [place] [address] ElzbietaTrinoMariangel [address] [place] [address] 05/02/2025 10:30 AM EDT Office Visit [facility] MEDICINE [address] [place] [address] Umm Coley MD [address] [place] [address] documented as of this encounter Visit Diagnoses Not on filedocumented in this encounter Care Teams Load Out Supervisor Relationship Specialty Start Date End Date Umm Coley MD [address] [place] [address] PCP - General Family Medicine 10/31/16 West Meier, RN [address] [place] [address] Golf Club Head FormerFuel Cell Designer 01/12/25 Eva Nunez Golf Club Head Former 04/05/24 07/06/24 [facility] 05/11/24 11/17/24 [facility] 11/14/24 01/17/25 [employer] 12/08/24 documented as of this encounter
--- OUTSIDE RECORDS SUMMARY | 2025-02-15 15:09 | XMS_ITS | Encounter Summary ---
Author Organization [employer] [facility] Address [address] [place] [address] 7t [place] [address] Care Team Providers Care Wharf Tender Head Name Role Phone Umm Coley MD Primary Care Provider + West Meier RN Unavailable [phone] Encounter Details Date Type Department Care Team (Late st Contact Info) Description 09/24/2022 Abstract [facility] ADULT DENTAL [address] [place] [address] Dental, Provider, DDS Social History Tobacco Use [...] Visit [facility] ADULT DENTAL [address] [place] [address] Mariangel Ruff [address] [place] [address] 05/02/2025 10:30 AM EDT Office Visit [facility] MEDICINE [address] [place] [address] Umm Coley MD [address] [place] [address] documented as of this encounter Procedures Procedure [...] on filedocumented in this encounter Care Teams Wharf Tender Head Relationship Specialty Start Date End Date Umm Coley MD [address] [place] [address] PCP - General Family Medicine 10/31/16 West Meier, EBBA [address] [place] [address] Electrician ApprenticeResidential Field Manager 01/12/25 Eva Nunez Electrician Apprentice 04/05/24 07/06/24 [facility] 05/11/24 11/17/24 [facility] 11/14/24 01/17/25 [employer] 12/08/24 documented as of this encounter
--- OUTSIDE RECORDS SUMMARY | 2025-02-15 15:09 | XMS_ITS | Clinical Summary ---
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 F ?ADM Date: 12/23/24 ? Loc: HO.ED ? Attending Dr: ? Ordering Physician: Diomedes Shultz ?? Date of Service: 12/23/24 ?? Procedure(s): CT head/brain wo IV con ?? Accession Number(s): [id number] ? cc: Diomedes Shultz; Shalonda Coley MD ? Report Number: ?? [id number]: Total DLP = ??821.00 mGy-cm ?? EXAMINATION: [...] DD/ 1642 ? TD/TT: 12/23/24 1642 ? Payroll Benefits Administrator: ? Procedure Note Adalgisa, Image - 12/23/[address] [place] [address] [address] Scan Report Signed Patient: Diana Myles LMR#: [id number] 8 : 1965Acct:[id number] Age/Sex: 59 / FADM Date: 12/23/24 Loc: HO.ED Attending Dr: Ordering Physician: Diomedes Shultz Date of Service: 12/23/24 Procedure(s): CT head/brain wo IV con Accession Number(s): [id number] cc: Diomedes Shultz; Shalonda Coley MD Report Number: [id number]: Total DLP = 821.00 mGy-cm EXAMINATION: CT [...] 12/23/24 1651 DD/ 1642 TD/TT: 12/23/24 1642 Payroll Benefits Administrator: [facility] External Provider IMG CT PROCEDURES Final Result * CT Cervical Spine w/o Contrast (12/23/2024 3:29 PM EST) Anatomical Region Laterality Modality Spine, C-spine Computed Tomogra phy 12/23/2024 3:29 PM EST Narrative 12/23/2024 4:57 PM EST ? [facility] ?[address] ?[place] [address] ? CT Scan Report ? Signed ? Patient: Myles,Diana L ?MR#: [id number] ?? 8 ? : 1965 ?Acct:[id number] ? Age/Sex: 59 / F ?ADM Date: 02/21/25 ? Loc: HO.ED ? Attending Dr: ? Ordering Physician: Diomedes Shultz ?? Date of Service: 12/23/24 ?? Procedure(s): CT cervical spine wo IV con ?? Accession Number(s): [id number] ? cc: Diomedes Shultz; Shalonda Coley MD ? Report Number: ?? [id number]: Total DLP = ??821.00 mGy-cm ?? EXAMINATION: [...] DD/ 1529 ? TD/TT: 12/23/24 1642 ? Payroll Benefits Administrator: ? Procedure Note Donotuseinterpreter, Image - 12/23/[address] [address] [address] Scan Report Signed Patient: Diana Myles LMR#: [id number] 8 : 1965Acct:[id number] Age/Sex: 59 / FADM Date: 12/23/24 Loc: HO.ED Attending Dr: Ordering Physician: Diomedes Shultz Date of Service: 12/23/24 Procedure(s): CT cervical spine wo IV con Accession Number(s): [id number] cc: Diomedes Shultz; Shalonda Coley MD Report Number: [id number]: Total DLP = 821.00 mGy-cm EXAMINATION: CT [...] 12/23/24 1654 DD/ 1529 TD/TT: 12/23/24 1642 Payroll Benefits Administrator: us [facility] External Provider IMG CT PROCEDURES Final Result * XR Shoulder 2+ Views Right (12/23/2024 3:09 PM EST) Anatomical Region Laterality Modality Upper Extremities, Shoulder Right Radi ographic Imaging 12/23/2024 3:09 PM EST Narrative 12/23/2024 3:43 PM EST ? [facility] ?[address] ?[place] [address] ?XRay Report ? Signed ? Patient: Myles,Diana L ?MR#: [id number] ?? 8 ? : 1965 ?Acct:[id number] ? Age/Sex: 59 / F ?ADM Date: 12/23/24 ? Loc: HO.ED ? Attending Dr: ? Ordering Physician: Diomedes Shultz ?? Date of Service: 12/23/24 ?? Procedure(s): XR shoulder RT min 2V ?? Accession Number(s): [id number] ? cc: Diomedes Shultz; Shalonda Coley MD [...] DD/ 1509 ? TD/TT: 12/23/24 1533 ? Payroll Benefits Administrator: ? Procedure Note Donotuseinterpreter, Image - 12/23/[address] [address] XRay Report Signed Patient: Diana Myles LMR#: [id number] 8 : 1965Acct:[id number] Age/Sex: 59 / FADM Date: 12/23/24 Loc: HO.ED Attending Dr: Ordering Physician: Diomedes Shultz Date of Service: 12/23/24 Procedure(s): XR shoulder RT min 2V Accession Number(s): [id number] cc: Diomedes Shultz; Shalonda Coley MD EXAMINATION: [...] 12/23/24 1540 DD/ 1509 TD/TT: 12/23/24 1533 Payroll Benefits Administrator: us [facility] External Provider IMG XR PROCEDURES Final Result * XR Hips Bilateral with Pelvis 1 view (12/23/2024 2:57 PM EST) Anatomical Region Laterality Modality Lower Extremities, Hip Bilateral Radiograp hic Imaging 12/23/2024 2:57 PM EST Narrative 12/23/2024 3:45 PM EST ? [place] [facility] ?[address] ?[place] [address] ?XRay Report ? Signed ? Patient: Myles,Diana L ?MR#: [id number] ?? 8 ? : 1965 ?Acct:[id number] ? Age/Sex: 59 / F ?ADM Date: 12/23/24 ? Loc: HO.ED ? Attending Dr: ? Ordering Physician: Diomedes Shultz ?? Date of Service: 12/23/24 ?? Procedure(s): XR hip BI w PEL1V ?? Accession Number(s): [id number] ? cc: Diomedes Shultz; Shalonda Coley MD [...] DD/ 1457 ? TD/TT: 12/23/24 1533 ? Payroll Benefits Administrator: ? Procedure Note Chin Diana - 12/23/[address] [address] XRay Report Signed Patient: Diana Myles LMR#: [id number] 8 : 1965Acct:[id number] Age/Sex: 59 / FADM Date: 12/23/24 Loc: HO.ED Attending Dr: Ordering Physician: Diomedes Shultz Date of Service: 12/23/24 Procedure(s): XR hip BI w PEL1V Accession Number(s): [id number] cc: Diomedes Shultz; Shalonda Coley MD EXAMINATION: [...] 12/23/24 1543 DD/ 1457 TD/TT: 12/23/24 1533 Payroll Benefits Administrator: [facility] External Provider IMG XR PROCEDURES Final Result * XR Knee 4+ Views Right (12/23/2024 2:57 PM EST) Anatomical Region Laterality Modality Lower Extremities, Knee Right Radiogra phic Imaging 12/23/2024 2:57 PM EST Narrative 12/23/2024 3:44 PM EST ? [facility] ?[address] ?[place] [address] ?XRay Report ? Signed ? Patient: Myles,Diana L ?MR#: [id number] ?? 8 ? : 1965 ?Acct:[id number] ? Age/Sex: 59 / F ?ADM Date: 12/23/ ? Loc: HO.ED ? Attending Dr: ? Ordering Physician: Diomedes Shultz ?? Date of Service: 12/23/24 ?? Procedure(s): XR knee RT 4V ?? Accession Number(s): [id number] ? cc: Diomedes Shultz; Shalonda Coley MD [...] DD/ 1457 ? TD/TT: 12/23/24 1533 ? Payroll Benefits Administrator: ? Procedure Note Juan Joséjose antonio, Image - 12/23/[address] [address] XRay Report Signed Patient: Diana Myles LMR#: [id number] 8 : 1965Acct:[id number] Age/Sex: 59 / FADM Date: 12/23/24 Loc: HO.ED Attending Dr: Ordering Physician: Diomedes Shultz Date of Service: 12/23/24 Procedure(s): XR knee RT 4V Accession Number(s): [id number] cc: Diomedes Shultz; Shalonda Coley MD EXAMINATION: [...] 12/23/24 1541 DD/ 1457 TD/TT: 12/23/24 1533 Payroll Benefits Administrator: us [facility] External Provider IMG XR PROCEDURES Final Result * MR Knee w/o Contrast Left (12/06/2024 6:06 PM EST) Anatomical Region Laterality Modality Magnetic Resonan ce 12/06/2024 6:06 PM EST Narrative 12/08/2024 8:31 AM EST ? [facility] ?[address] ?[place] [address] ? Magnetic Resonance Report ? Signed ? Patient: Myles,Diana L ?MR#: [id number] ?? 8 ? : 1965 ?Acct:[id number] ? Age/Sex: 59 / F ?ADM Date: 12/06/24 ? Loc: HO.MRI ? Attending Dr: Denilson Forman PA-C ? Ordering Physician: Denilson Forman PA-C ?? Date of Service: 12/06/24 ?? Procedure(s): MR knee LT wo con ?? Accession Number(s): [id number] ? cc: Shalonda Coley MD; Denilson Forman [...] ??12/08/2024 08:29 AM EST RP ?? Workstation: [id number] ? Dictated By: ?Mathieu Lepe MD ? Signed By: ?<Electronically signed by Mathieu Lepe MD in OV> ?12/08/24 08 ? DD/ 1806 ? TD/TT: 12/06/24 181 ? Payroll Benefits Administrator: ? Procedure Note Chin Diana - 12/08/[address] [address] Magnetic Resonance Report Signed Patient: Diana Myles LMR#: [id number] 8 : 1965Acct:[id number] Age/Sex: 59 / FADM Date: 12/06/24 Loc: HO.MRI Attending Dr: Denilson Forman PA-C Ordering Physician: Denilson Forman PA-C Date of Service: 12/06/24 Procedure(s): MR knee LT wo con Accession Number(s): [id number] cc: Shalonda Coley MD; Denilson Forman PA-C [...] 12/08/24 0829 DD/ 05 TD/TT: 12/06/24 181 Payroll Benefits Administrator: [facility] External Provider IMG MRI PROCEDURES Final Result * BI Mammogram Screening Tomosynthesis Bilateral (11/29/2024 8:45 AM EST) Anatomical Region Laterality Modality Breast Bilateral Mammography 11/29/2024 8:45 AM EST Narrative 12/07/2024 3:35 PM EST ? [facility] ? [address] ?[place] [address] ? Mammography Report ? Signed ? Patient: Myles,Diana L ?MR#: [id number] ?? 8 ? : 1965 ?Acct:[id number] ? Age/Sex: 59 / F ?ADM Date: /28/25 ? Loc: HO.MAMMO ? Attending Dr: Shalonda Coley MD ? Ordering Physician: Shalonda Coley MD ?Results: 2Be ?? nign Findings ? Date of Service: 11/29/24 ?Follow Up: 1 Year From Orig ?? inal Mammogram ? Procedure(s): MM tomosynthesis screening BI ?? Accession Number(s): [id number] ? cc: Shalonda Coley MD ? EXAMINATION: [...] DO in OV> ? 12/07/24 1532 ? DD/DT: 11/29/ 0845 ? TD/TT: 11/29/ 0915 ? Payroll Benefits Administrator: ? Procedure Note Donotuseinterpreter, Image - 12/07/2024 [place] [facility] [address] [place] [address] Mammography Report Signed Patient: Diana Myles LMR#: [id number] 8 : 1965Acct:[id number] Age/Sex: 59 / FADM Date: 11/29/24 Loc: HO.MAMMO Attending Dr: Shalonda Coley MD Ordering Physician: Shalonda Coley MDResults: 2Be nign Findings Date of Service: 11/29/24Follow Up: 1 Year From Orig inal Mammogram Procedure(s): MM tomosynthesis screening BI Accession Number(s): [id number] cc: Shalonda Coley MD EXAMINATION: MM SCREENING [...] by: Chaparrita Lyn DO 12/07/2024 03:32 PM [facility] Dictated By: Chaparrita Lyn DO Signed By: <Electronically signed by Chaparrita Lyn DO in OV> 12/07/24 1532 DD/ 0845 TD/TT: 11/29/24 0915 Payroll Benefits Administrator: Shalonda Coley MD IMG BI PROCEDURES Edited Result - Final * (ABNORMAL) Hm Colonoscopy (07/30/2023) Colonoscopy Abnormal( A) Normal [facility] Comment:SSL polyp Shalonda Coley MD HEALTH MAINTENANCE Final Result [facility] [address] [place] [address] [phone] * Thinprep PAP and HPV nRNA E6/E7 (10/08/2022 9:30 AM EST) Clinical Information: None given [employer] [facility] LMP: NONE GIVEN [facility] Prev. PAP: NONE GIVEN [facility] Prev. BX: NONE GIVEN [facility] SOURCE: None given [employer] Statement Of Adequacy: SATISFACTORY FOR EVALUATION Age and/or menstrual status not provided [employer] Interpretation/Re sult: [facility] Comment: Negative for intraepithelial lesion or malignancy. Atrophic pattern; predominantly parabasal cells [employer]: [employer] Comment: DMM, CT(ASCP) CT screening location: [address] ??[address] Review [employer]: [employer] Comment: SHON CT(ASCP) CT screening location: [address] ??[address] (Always Message) [facility] Comment: EXPLANATORY NOTE: The Pap is a [...] HPV nRNA E6/E7 Not Detected Not Detected [email or web address] Comment: Methodology: Guest Service Host-Mediated Amplification This assay detects E6/E7 viral messenger RNA (mRNA) from 14 high-risk HPV types (16,18,31,33,35,39,45,51,52,56,58,59,66,68). Cervical sources are required for HPV testing. If a vaginal source from a patient who has had a total hysterectomy with removal of cervix was submitted, please contact the testing laboratory for alternative testing options. For additional information, please refer to http://education.[employer]/faq/OTR647h7 (This link if provided for information/ educational purposes only.) 10/08/2022 9:30 AM EST 10/10/2022 1:07 AM EST Narrative [facility] - 10/14/2022 7:08 PM EST FASTING: UNKNOWN Shauna Matamoros [facility] PATHOLOGY ORDERABLES Final Result [employer] [address] [place] [address], [place] [address] [facility] [facility] [address], [place] [address] * HIV AB/AG (04/30/2022 11:28 AM EDT) Pathologist [facility] HIV AB/AG Nonreactive Nonreactive [facility] Comment: HIV-1 p24 Ag and/or [...] detection of this assay. ?? The [employer] Stunt Driver HIV Ag/Ab Combo assay result and supplemental assay results should be interpreted in conjunction with the patient's clinical presentation, history and other laboratory results. ??If the results are inconsistent with clinical evidence, additional testing is suggested to confirm the result. Hepatitis B Surface Antibody REACTIVE Nonreactive [facility] Comment:REACTIVE: > 11.99 mI U/mL Hepatitis B Surface Antigen Negative Negative [facility] Hepatitis B Core Antibody Nonreactive Nonreactive [facility] 04/30/2022 11:2 8 AM EDT us Shalonda Coley MD HISTORICAL/NON ORDERABLE LABS Final Result [facility] [address] from Last 3 Months or Most Recently Relevant to Health Maintenance Insurance C3 C3 [facility] ADULT Care Teams Job Interviewer Relationship Specialty Start Date End Date Shalonda Coley MD [address] [place] [address] PCP - General Family Medicine 10/31/16 [place], BEBA [address] [place] [address] Technician Biological HealthClinical Quality Analyst 01/12/25
--- OUTSIDE RECORDS SUMMARY | 2025-02-15 15:09 | XMS_ITS | Encounter Summary ---
Author Organization [employer] Address [address] [facility] 7t [place] [address] Care Team Providers Care Director Manufacturing Engineering Name Role Phone Umm Coley MD Primary Care Provider + [place] RN Unavailable [phone] Reason for Visit * Reason Onset Date Comments pre med prior to dental treatment 08/23/2024 Encounter Details Date Type Department Care Team (Late st Contact Info) Description 08/23/2024 Telephone [facility] ADULT DENTAL [address] [place] [address] Johnny Gonzalez, DMD [address] [place] [address] pre med prior to dental treatment Social [...] spoke with Nina in the front office java developer with a run through of what was happening with the patient and she stated she would also send something to provider for clarificationDR documented in this encounter Plan of Treatment Upcoming Encounters Date Type Department Care Team (Late st Contact Info) Description 03/08/2025 10:00 AM EDT Office Visit [facility] ADULT DENTAL [address] [place] [address] Elzbieta Mariangel [address] [place] [address] 05/02/2025 10:30 AM EDT Office Visit [facility] MEDICINE [address], [place] [phone] Umm Coley MD [address] [place] [address] documented as of this encounter Visit Diagnoses Not on filedocumented in this encounter Additional Health Concerns Assessment Noted Time PHQ-9 Depression Total Score: 10 024 9:17 AM EDT documented as of this encounter Care Teams Director Manufacturing Engineering Relationship Specialty Start Date End Date Umm Coley MD [address] [place] [address] PCP - General Family Medicine 10/31/16 [place], RN [address] [place] [address] Strap SewerMillinery Blocker 01/12/25 [facility] 05/11/24 11/17/24 [facility] 11/14/24 01/17/25 EBI[employer] 12/08/24 documented as of this encounter
--- OUTSIDE RECORDS SUMMARY | 2025-02-15 15:09 | XMS_ITS | Encounter Summary ---
Author Organization [facility] Address [address] [place] [address] 7t [place] [address] Care Team Providers Care One Piece Expansion Maker Hand Name Role Phone Umm Coley MD Primary Care Provider + [place] RN Unavailable [phone] Encounter Details Date Type Department Care Team (Latest Contact Info) Description 09/16/2022 Abstract [facility] CONVERSIONS Dental, Provider, DDS Social History [...] Description 03/08/2025 10:00 AM EDT Office Visit [facility] ADULT DENTAL [address] [place] [address] Elzbieta, Mariangel [address] [place] [address] 05/02/2025 10:30 AM EDT Office Visit [facility] MEDICINE [address] [place] [address] Umm Coley MD [address] [place] [address] documented as of this encounter Visit Diagnoses Not on filedocumented in this encounter Care Teams One Piece Expansion Maker Hand Relationship Specialty Start Date End Date Umm Coley MD [address] [place] [address] PCP - General Family Medicine 10/31/16 [place], BEBA [address] [place] [address] Machine Clothing ReplacerMarket Sales Manager 01/12/25 Eva Nunez Machine Clothing Replacer 04/05/24 07/06/24 [facility] 05/11/24 11/17/24 [facility] 11/14/24 01/17/25 [employer] 12/08/24 documented as of this encounter
--- OUTSIDE RECORDS SUMMARY | 2025-02-15 15:09 | XMS_ITS | Encounter Summary ---
Author Organization [employer] Address [address] [facility] 7t [place] [address] Care Team Providers Care Neon Sign Servicer Name Role Phone Umm Coley MD Primary Care Provider + [place] RN Unavailable [phone] Reason for Visit * Reason Onset Date Comments Appointment 06/15/2023 Encounter Details Date Type Department Care Team ([facility] st Contact Info) Description 06/15/2023 Telephone [facility] ADULT DENTAL [address] [place] [address] Johnny Gonzalez, DMD [address] [place], [place] [phone] Appointment Social History Tobacco Use Types Packs/Day [...] Visit [facility] ADULT DENTAL [address] [place] [address] Elzbieta, Mariangel [address] [place] [address] 05/02/2025 10:30 AM EDT Office Visit [facility] MEDICINE [address] [place] [address] Umm Coley MD [address] [place] [address] documented as of this encounter Visit Diagnoses Not on filedocumented in this encounter Additional Health Concerns Assessment Noted Time PHQ-9 Depression Total Score: 12 023 1:58 PM EDT documented as of this encounter Care Teams Neon Sign Servicer Relationship Specialty Start Date End Date Umm Coley MD [address] [place] [address] PCP - General Family Medicine 10/31/16 [place], RN [address] [place] [address] Band Instrument MakerCountry Director 01/12/25 Eva Nunez Band Instrument Maker 04/05/24 07/06/24 [facility] 05/11/24 11/17/24 [facility] 11/14/24 01/17/25 Be Here 12/08/24 documented as of this encounter
--- OUTSIDE RECORDS SUMMARY | 2025-02-15 15:09 | XMS_ITS | Encounter Summary ---
Author Organization [employer] (?) [facility] Address [address] [place] [address] 7[address] [place] [address] Care Team Providers Care Mold Designer Name Role Phone Umm Coley MD Primary Care Provider + [place] RN Unavailable [phone] Encounter Details Date Type Department Care Team (Latest Contact Info) Description 11/23/2020 Abstract [facility] CONVERSIONS Dental, Provider, DDS Social [...] [facility] ADULT DENTAL [address] [place] [address] Elzbieta, Mariangel [address] [place] [address] 05/02/2025 10:30 AM EDT Office Visit [facility] MEDICINE [address] [place] [address] Umm Coley MD [address] [place] [address] documented as of this encounter Visit Diagnoses Not on filedocumented in this encounter Care Teams Mold Designer Relationship Specialty Start Date End Date Umm Coley MD [address] [place] [address] PCP - General Family Medicine 10/31/16 [place], BEBA [address] [place] [address] Ship WorkerBleach Boiler Filler 01/12/25 Eva Nunez Ship Worker 04/05/24 07/06/24 [facility] 05/11/24 11/17/24 [facility] 11/14/24 01/17/25 [employer] 12/08/24 documented as of this encounter
--- OUTSIDE RECORDS SUMMARY | 2025-02-15 15:09 | XMS_ITS | Encounter Summary ---
Author Organization [employer] [facility] Address [address] [place] [address] 7t [place] [address] Care Team Providers Care Smoking Tobacco Packing Machine Hand Name Role Phone Umm Coley MD Primary Care Provider + [place] RN Unavailable [phone] Encounter Details Date Type Department Care [...] Description 03/08/2025 10:00 AM EDT Office Visit [facility] ADULT DENTAL [address] [place] [address] Elzbieta, Mariangel [address] [place] [address] 05/02/2025 10:30 AM EDT Office Visit [facility] MEDICINE [address] [place] [address] Umm Coley MD [address] [place] [address] documented as of this encounter Visit Diagnoses Not on filedocumented in this encounter Care Teams Smoking Tobacco Packing Machine Hand Relationship Specialty Start Date End Date Umm Coley MD [address] [place] [address] PCP - General Family Medicine 10/31/16 [place], BEBA [address] [place] [address] Organic Search LeadSenior Asset Manager 01/12/25 Eva Nunez Organic Search Lead 04/05/24 07/06/24 [facility] 05/11/24 11/17/24 [facility] 11/14/24 01/17/25 [employer] 12/08/24 documented as of this encounter
--- OUTSIDE RECORDS SUMMARY | 2025-02-15 15:09 | XMS_ITS | Encounter Summary ---
Author Organization [facility] [facility] Address [address] [place] [address] 7t [place] [address] Care Team Providers Care Wood Fence Installer Name Role Phone Umm Coley MD Primary Care Provider + West Meier RN Unavailable [phone] Encounter Details Date Type Department Care Team (Late Contact Info) Description 03/05/2023 Orders Only [facility] MEDICINE [address] [place] [address] Umm Coley MD [address] [place] [address] Social History Tobacco Use Types Packs/Day Years [...] Description 03/08/2025 10:00 AM EDT Office Visit [facility] ADULT DENTAL [address] [place], [place] [phone] Mariangel Ruff [address] [place] [address] 05/02/2025 10:30 AM EDT Office Visit [facility] MEDICINE [address] [place], [place] [phone] Umm Coley MD [address] [place], [place] [phone] documented as of this encounter Visit Diagnoses Not on filedocumented in this encounter Care Teams Wood Fence Installer Relationship Specialty Start Date End Date Umm Coley MD [address] [place], [place] [phone] PCP - General Family Medicine 10/31/16 West Meier, RN [address] [place] [address] Sales HostHair Designer 01/12/25 Eva Nunez Sales Host 04/05/24 07/06/24 [facility] 05/11/24 11/17/24 [facility] 11/14/24 01/17/25 [employer] 12/08/24 documented as of this encounter
--- OUTSIDE RECORDS SUMMARY | 2025-02-15 15:09 | XMS_ITS | Encounter Summary ---
Author Organization [employer] Address [address] [facility] 7t [place] [address] Care Team Providers Care District Extension Service Agent Name Role Phone Umm Coley MD Primary Care Provider + West Meier RN Unavailable [phone] Reason for Visit * Reason Comments Med Change Request Encounter Details Date Type Department Care Team ([facility] Contact Info) Description 03/20/2023 Refill [facility] ADULT DENTAL 230 [place] [address] Johnny Gonzalez, WILIAN 505 [place] [address] Social History Tobacco Use Types Packs/Day Years [...] [facility] [address] [place], [place] [phone] Trino Ruffaris [address] [place] [address] 05/02/2025 10:30 AM EDT Office Visit [facility] MEDICINE [address] [place], [place] [phone] Umm Coley MD [address] [place] [address] documented as of this encounter Visit Diagnoses Not on filedocumented in this encounter Care Teams District Extension Service Agent Relationship Specialty Start Date End Date Umm Coley MD 230 [place] [address] PCP - General Family Medicine 10/31/16 West Meier, BEBA 505 [place] [address] Field AppraiserSnack Steward 01/12/25 Eva Nunez Field Appraiser 04/05/24 07/06/24 [facility] 05/11/24 11/17/24 [facility] 11/14/24 01/17/25 [employer] 12/08/24 documented as of this encounter
--- OUTSIDE RECORDS SUMMARY | 2025-02-15 15:09 | XMS_ITS | Encounter Summary ---
Author Organization [employer] Address 75 [facility] 7t [place] [address] Care Team Providers Care Electric Meter Repairer Name Role Phone Umm Coley MD Primary Care Provider + West Meier RN Unavailable [phone] Encounter Details Date Type Department Care Team ([facility] st Contact Info) Description 02/07/2025 Telephone [facility] MEDICINE 230 [place], [place] [phone] Umm Coley MD 230 [place], [place] [phone] Social History Tobacco Use Types Packs/Day Years [...] Telephone Encounter - Katiuska Flaherty RN - 02/10/2025 4:15 PM EDT CM staff attempted to call pt with no success today, will reattempt next week. * Telephone Encounter - Katiuska Flaherty RN [...] pt to f/u on conversation from yesterday, PAOLA price in [place]erm[place]ian to RTC. * Telephone Encounter - West Meier RN - 02/07/2025 11:39 AM EDT Leatha Snider spoke with this CM in regards to situation with VNA agency ([facility]) over the weekend that pt did not answer the phone. Leatha Snider recommends that VNA can pre-fill medication in the lockbox and NUMEROLOGIST can give the medication to pt. This CM spoke with pt who states that she was not at home over the weekend but with her daughter. CM informed pt of above recommendation but pt is not in agreement with a nurse coming to her home andwith NUMEROLOGIST administering medication. Pt reports that she receives NUMEROLOGIST services through [facility] twice aday Mon-Sat. CM informed pt that we have to figure out a plan in regards to medication administration since she has a lockbox. CM informed pt that she was referred to a new VNA company named [facility]. Pt states she will discuss with her daughter and will get back to CM tomorrow if in agreement to receive VNA services through [facility]. Pt reports that she has medication available for today. CM will follow up with pt tomorrow. Will FYI PCP and assistant business manager. documented in this encounter Plan of Treatment Upcoming Encounters Date Type Department Care Team (Late st Contact Info) Description 03/08/2025 10:00 AM EDT Office Visit [facility] ADULT DENTAL 230 [place] [address] Elbzieta, Mariangel 230 [place] [address] 05/02/2025 10:30 AM EDT Office Visit [facility] MEDICINE 230 [place] [address] Umm Coley MD 230 [place] [address] documented as of this encounter Visit Diagnoses Not on filedocumented in this encounter Additional Health Concerns Assessment Noted Time PHQ-9 Depression Total Score: 10 024 9:17 AM EDT documented as of this encounter Care Teams Electric Meter Repairer Relationship Specialty Start Date End Date Umm Coley MD [address] [place] [address] PCP - General Family Medicine 10/31/16 West Meier, BEBA 505 [facility] [place] [address] Social Media AssistantEnvelope Sealer 01/12/25 documented as of this encounter
--- OUTSIDE RECORDS SUMMARY | 2025-02-15 15:09 | XMS_ITS | Encounter Summary ---
Author Organization [facility] Address [address] [place] [address] 7t [place] [address] Care Team Providers Care Research Neuropsychologist Name Role Phone Umm Coley MD Primary Care Provider + West Meier RN Unavailable [phone] Reason for Visit * Reason Comments Med Refill Encounter Details Date Type Department Care Team (Late Contact Info) Description 06/10/2023 Refill [facility] MEDICINE 230 [place] [address] Yenny Morris MD 230 [place] [address] Rash Social History Tobacco Use Types Packs/Day [...] Description 03/08/2025 10:00 AM EDT Office Visit [facility] ADULT DENTAL [address] [place] [address] Mariangel Ruff [address] [place] [address] 05/02/2025 10:30 AM EDT Office Visit [facility] MEDICINE [address] [place], [place] [phone] Umm Coley MD [address] [place] [address] documented as of this encounter Visit Diagnoses Diagnosis Rash Rash and other nonspecific skin eruption documented in this encounter Additional Health Concerns Assessment Noted Time PHQ-9 Depression Total Score: 12 023 1:58 PM EDT documented as of this encounter Care Teams Research Neuropsychologist Relationship Specialty Start Date End Date Umm Coley MD [address] [place] [address] PCP - General Family Medicine 10/31/16 West Meier, BEBA [address] [place] [address] Noodle Press OperatorSales Operations Associate 01/12/25 Eva Nunez Noodle Press Operator 04/05/24 07/06/24 [facility] 05/11/24 11/17/24 [facility] 11/14/24 01/17/25 [employer] 12/08/24 documented as of this encounter
--- OUTSIDE RECORDS SUMMARY | 2025-02-15 15:09 | XMS_ITS | Encounter Summary ---
Author Organization [employer] Address 75 [facility] 7t [place] [address] Care Team Providers Care Vice President Quality Assurance Name Role Phone Umm Coley MD Primary Care Provider + West Meier RN Unavailable [phone] Reason for Visit * Reason Comments Med Change Request Encounter Details Date Type Department Care Team ([facility] Contact Info) Description 03/20/2023 Refill [facility] ADULT DENTAL [address] [place] [address] Johnny Gonzalez DMD 505 [place] [address] Social History Tobacco Use Types Packs/Day Years [...] Description 03/08/2025 10:00 AM EDT Office Visit [facility] ADULT DENTAL [address] [place], [place] [phone] Trino Ruffaris [address] [place] [address] 05/02/2025 10:30 AM EDT Office Visit [facility] MEDICINE [address] [place], [place] [phone] Umm Coley MD [address] [place] [address] documented as of this encounter Visit Diagnoses Not on filedocumented in this encounter Care Teams Vice President Quality Assurance Relationship Specialty Start Date End Date Umm Coley MD 230 [place] [address] PCP - General Family Medicine 10/31/16 West Meier, BEBA [address] [place] [address] Finish Rolls OperatorSalt Machine Operator 01/12/25 Eva Nunez Finish Rolls Operator 04/05/24 07/06/24 [facility] 05/11/24 11/17/24 [facility] 11/14/24 01/17/25 [employer] 12/08/24 documented as of this encounter
== END 2025-02-15 15:22 | disposition home or self-care (01) ==
LOC: HO.HOS 12:48
PROVIDERS: PCP Internal Medicine
DX: S52.501A Unspecified fracture of the lower end of right radius, initial encounter for closed fracture (principal)
CPT/HCPCS: 99024

== ENCOUNTER → 2025-02-15 13:40 | Outpatient (BNV) | payer MEDICAID, SELFPAY | PROVIDERS: PCP Internal Medicine; Visit Provider Radiology Diagnostic Radiology | DX: S52.501D Unspecified fracture of the lower end of right radius, subsequent encounter for closed fracture with routine healing (principal); S52.201A Unspecified fracture of shaft of right ulna, initial encounter for closed fracture | CPT/HCPCS: 73110 ==

== ENCOUNTER 2025-02-16 11:22 | Outpatient (AMB) | payer MEDICAID, SELFPAY ==
[2025-02-16 11:33] VITALS: BP 124/59; PULSE 76; O2SAT 97; BMI 21.5
--- NOTE | 2025-02-16 11:33 | MHC.OFFVIS ---
Vital Signs 02/16/25 11:33 Height 5 ft Weight 110 lb BMI 21.5 BP 124/59 L Blood Pressure Location Lt brachial Position Sitting Pulse 76 Pulse Source Pulse Oximeter Pulse Oximetry (%) 97 Oxygen Delivery Method Room Air Intake Visit Reasons: Unilateral primary osteoarthritis, left knee Intake Note: Pain today 06/11 Lead Electrical Controls Engineer Required: Yes Lead Electrical Controls Engineer Language: Sales Representative Printing Paper Name: Noe Accompanied by: Self / Same As Patient Allergies codeine [CODEINE] Allergy (Intermediate, Verified 02/16/25 11:34) DIZZY/NAUSEA, nausea/vomiting escitalopram [From LEXAPRO] Allergy (Intermediate, Verified 02/16/25 11:34) ? NAUSEA meperidine [MEPERIDINE] Allergy (Intermediate, Verified 02/16/25 11:34) NAUSEA morphine [MORPHINE] Allergy (Intermediate, Verified 02/16/25 11:34) PALPITATIONS, palpitation oxycodone [OXYCODONE] Allergy (Intermediate, Verified 02/16/25 11:34) PALPATATIONS, palpitations tramadol Allergy (Unknown, Verified 02/16/25 11:34) dizziness, nausea HPI Comments Details: Diana is back in my office with a new complain on the pain in the left knee. She stated that she was sent by orthopedic office here for evaluation. She was diagnose with patellofemoral arthritis of the left knee. She adamantly refused any kind of the injections. I explained to the patient that in the situation she needs to go to a primary care physician and requests medications to treat her pain in the knee. In the past she was complaining on the pain in his shoulder. Multiple injections were offered to the patient and patient again adamantly refused to go for the injections. . This patient is diagnose with borderline personality disorder and cluster B personality disorder she is a poor candidate for neuromodulation. [facility] Medical History (Updated 02/16/25 @ 12:54 by Donnie Sanders MD) Primary osteoarthritis of right hand Migraine Right shoulder pain Rotator cuff tendinitis Arthritis of right shoulder region Right hand pain Breast cancer, right Status post radiation therapy Anemia Diarrhea Depression Somatization disorder Migraine equivalent syndrome Anxiety Periodontal disease Fibromyalgia Surgical History History of esophagogastroduodenoscopy (EGD) History of lumpectomy Hx of section Hx of shoulder surgery Hx of colonoscopy Family History Mother HTN (hypertension) Sister Breast cancer Bone cancer Colon polyps Sister Osteoporosis Hypercholesteremia Colon polyps Social History Household Members: None Housing: Apartment Are you a primary career center advisor to a significant other at home: No Do you presently have visiting nurse or other home services: No Alcohol intake: never Patient Tobacco Use Status: Former Tobacco user Years Smoked: 3 service: No Current occupational status: disabled 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 Review of Systems Const All systems reviewed & are unremarkable except as noted in HPI and below ENT Reports Normal hearing present Neuro Reports Normal hearing present, Denies Abnormal speech present, Denies confusion and Denies Sensory deficit (Neuro) Psych Denies confusion Physical Exam Vital Signs: Last Vital Signs Pulse 76 02/16/25 11:33 BP 124/59 L 02/16/25 11:33 Pulse Ox 97 02/16/25 11:33 Oxygen Delivery Method Room Air 02/16/25 11:33 BMI result Body Mass Index 21.5 Const General: No confusion Orientation/consciousness: No confusion Eyes General: appearance normal, both eyes and all related structures Pupils: Equal, round and reactive pupils present EOM: EOMs intact bilaterally Neck Neck: Yes full ROM Chest Chest palpation & inspection: normal inspection of the chest Resp Effort & Inspection: normal respiratory effort, able to speak in complete sentences, normal respiratory pattern, no audible wheezes and no cough Cardio Jugular venous distension: no JVD GI Inspection: Yes normal to inspection Neuro General: No confusion Cranial nerves: Yes Equal, round and reactive pupils present and Yes Normal hearing present Speech: No Abnormal speech present Gait exam (Neuro): Normal gait present Motor exam (neuro): 5/5 motor strength present throughout Sensory Exam: No Sensory deficit (Neuro) Extrem General: No pedal edema Psych Speech and movement: Normal speech and movement present Affect: normal affect Attitude: cooperative Thought process: Normal thought process present Thought content: Normal thought content present Insight: Good insight present (Psych) Judgement: Good judgement present (Psych) Assessment & Plan Assessment & Plan (1) Rotator cuff tendinitis: Code(s): M75.80 - Other shoulder lesions, unspecified shoulder Category: Medical Qualifiers: Laterality: right Qualified Code(s): M75.81 - Other shoulder lesions, right shoulder Plan: I offered this patient and I will perform therapeutic x-ray guided intra-articular injection into the right shoulder. If this will not help for the patient I will consider interscalene medial branch block in the attempt to help this patient's pain. Unfortunately she is suffering from 2 types of personality disorder. Possibility exists that she will not be able to pass psychological evaluation in preparation of the PNS of brachial plexus. Unfortunately she has negative about interscalene injection. The injection of the intra-articular steroids on right shoulder was discussed with the patient today and she decided to think about it. She wants to do it under anesthesia. She asked many questions about anesthesia. I explained as much as I could to her. She still to think about it and discuss it with her relatives. She will give us a call if she decides to go for the procedure. If she decides against it I recommended her to continue with her primary care physician. (2) Arthritis of right shoulder region: Code(s): M19.011 - Primary osteoarthritis, right shoulder Category: Medical (3) Chronic pain syndrome: Code(s): G89.4 - Chronic pain syndrome Category: Medical (4) Right shoulder pain: Code(s): M25.511 - Pain in right shoulder Category: Medical (5) Arthritis of left knee: Code(s): M17.12 - Unilateral primary osteoarthritis, left knee Category: Medical Plan Unfortunately this patient is very negative about any kind of the injections. I recommended her to go to primary care physician and to request medication treat her pain. She was requesting to me to explain to her what is wrong with the her knee based on her knee MRI and knee x-ray, I told her that people who ordered those studies will be better positioned to explained to her the nature of her condition. Borderline personality disorder and cluster B personality disorder would make this patient inappropriate candidate for neuromodulation in the future. Coding Level of Care Code Est Pt Level 3 (25759) Diagnoses Tendinitis of right rotator cuff M75.81 Laterality: right Arthritis of right shoulder region M19.011 Chronic pain syndrome G89.4 Right shoulder pain M25.511 Arthritis of left knee M17.12
--- OUTSIDE RECORDS SUMMARY | 2025-02-16 14:07 | XMS_ITS | Encounter Summary ---
Author Organization [facility] Address [address] [place] [address] 7t [place] [address] Care Team Providers Care Lead Housekeeper Name Role Phone Umm Coley MD Primary Care Provider + West Meier RN Unavailable [phone] Encounter Details Date Type Department Care Team (Latest Contact Info) Description 11/23/2020 Abstract [facility] CONVERSIONS Dental, Provider, DDS Social [...] Description 03/08/2025 10:00 AM EDT Office Visit [facility] ADULT DENTAL [address] [place] [address] Elzbieta, Mariangel [address] [place] [address] 05/02/2025 10:30 AM EDT Office Visit [facility] MEDICINE [address] [place] [address] Umm Cloey MD [address] [place] [address] documented as of this encounter Visit Diagnoses Not on filedocumented in this encounter Care Teams Lead Housekeeper Relationship Specialty Start Date End Date Umm Coley MD [address] [place] [address] PCP - General Family Medicine 10/31/16 West Meier, BEBA [address] [place] [address] Panel CovererPatient Access Manager 01/12/25 Eva Nunez Panel Coverer 04/05/24 07/06/24 [facility] 05/11/24 11/17/24 [facility] 11/14/24 01/17/25 [employer] 12/08/24 documented as of this encounter
--- OUTSIDE RECORDS SUMMARY | 2025-02-16 14:07 | XMS_ITS | Encounter Summary ---
Author Organization [employer] Address [address] [facility] 7t [place] [address] Care Team Providers Care Pharmaceutical Scientist Name Role Phone Umm Coley MD Primary Care Provider + West Meier RN Unavailable [phone] Reason for Visit * Reason Comments Med Change Request Encounter Details Date Type Department Care Team ([facility] Contact Info) Description 03/20/2023 Refill [facility] ADULT DENTAL [address] [place] [address] Johnny Gonzalez, WILIAN 505 [place] [address] Social History Tobacco Use Types Packs/Day Years [...] 10:00 AM EDT Office Visit [facility] ADULT DENTAL [address] [place], [place] [phone] Trino Ruffaris [address] [place] [address] 05/02/2025 10:30 AM EDT Office Visit [facility] MEDICINE [address] [place], [place] [phone] Umm Coley MD [address] [place] [address] documented as of this encounter Visit Diagnoses Not on filedocumented in this encounter Care Teams Pharmaceutical Scientist Relationship Specialty Start Date End Date Umm Coley MD [address] [place] [address] PCP - General Family Medicine 10/31/16 West Meier, BEBA [address] [place] [address] Senior International Tax ManagerUndraped Artist Model 01/12/25 Eva Nunez Senior International Tax Manager 04/05/24 07/06/24 [facility] 05/11/24 11/17/24 [facility] 11/14/24 01/17/25 [employer] 12/08/24 documented as of this encounter
--- OUTSIDE RECORDS SUMMARY | 2025-02-16 14:07 | XMS_ITS | Encounter Summary ---
Author Organization [facility] Address [address] [place] [address] 7t [place] [address] Care Team Providers Care Senior Java Web Developer Name Role Phone Umm Coley MD Primary Care Provider + West Meier RN Unavailable [phone] Encounter Details Date Type Department Care Team (Latest Contact Info) Description 09/16/2022 Abstract [facility] CONVERSIONS Dental, [...] [facility] ADULT DENTAL [address] [place] [address] Elzbieta, Mariangel [address] [place] [address] 05/02/2025 10:30 AM EDT Office Visit [facility] MEDICINE [address] [place] [address] Umm Coley MD [address] [place] [address] documented as of this encounter Visit Diagnoses Not on filedocumented in this encounter Care Teams Senior Java Web Developer Relationship Specialty Start Date End Date Umm Coley MD [address] [place] [address] PCP - General Family Medicine 10/31/16 West Meier, BEBA [address] [place] [address] Correction WardenIt Technical Specialist 01/12/25 Eva Nunez Correction Warden 04/05/24 07/06/24 [facility] 05/11/24 11/17/24 [facility] 11/14/24 01/17/25 [employer] 12/08/24 documented as of this encounter
--- OUTSIDE RECORDS SUMMARY | 2025-02-16 14:07 | XMS_ITS | Encounter Summary ---
Author Organization [employer] Address [address] [facility] 7t [place] [address] Care Team Providers Care Clinical Staff Educator Name Role Phone Umm Coley MD Primary Care Provider + West Meier RN Unavailable Encounter Details Date Type Department Care Team (Late st Contact Info) Description 11/03/2022 Orders Only [facility] MEDICINE [address] [place], [place] [phone] Umm Coley MD 230 [place], [place] [phone] Osteopenia after menopause (Primary Dx) Social History [...] 10:00 AM EDT Office Visit [facility] ADULT DENTAL [address] [place], [place] [phone] Mariangel Ruff [address] [place] [address] 05/02/2025 10:30 AM EDT Office Visit [facility] MEDICINE [address] [place], [place] [phone] Umm Coley MD [address] [place] [phone] Scheduled Orders Name Type Priority Associated Diagnoses Orde r Schedule Vitamin D, 25-Hydroxy, Total, Immunoassay Lab Routine Osteopenia after menopause Expected: 11/03/2022 (Approximate), Expires: 11/03/2023 PTH, Intact (ICMA) And Ionized Calcium Lab Routine Osteopenia after menopause Expected: 11/03/2022 (Approximate), Expires: 11/03/2023 documented as of this encounter Visit Diagnoses Diagnosis Osteopenia after menopause- Primary documented in this encounter Care Teams Clinical Staff Educator Relationship Specialty Start Date End Date Umm Coley MD [address] [place] [address] PCP - General Family Medicine 10/31/16 West Meier, BEBA [address] [place] [address] PrecipitatorFuel Handler 01/12/25 Eva Nunez Precipitator 04/05/24 07/06/24 [facility] 05/11/24 11/17/24 [facility] 11/14/24 01/17/25 [employer] 12/08/24 documented as of this encounter
--- OUTSIDE RECORDS SUMMARY | 2025-02-16 14:07 | XMS_ITS | Encounter Summary ---
Author Organization [employer] [facility] Address [address] [place] [address] [address] [place] [address] Care Team Providers Care Trench Shovel Operator Name Role Phone Umm Coley MD Primary Care Provider + [place] Meier RN Unavailable [phone] Encounter Details Date Type Department Care Team (Latest Contact Info) Description 03/13/2022 Abstract [facility] CONVERSIONS Dental, Provider, DDS Social History [...] [facility] ADULT DENTAL [address] [place] [address] Elzbieta, Mariangel [address] [place] [address] 05/02/2025 10:30 AM EDT Office Visit [facility] MEDICINE [address] [place] [address] Umm Cloey MD [address] [place] [address] documented as of this encounter Visit Diagnoses Not on filedocumented in this encounter Care Teams Trench Shovel Operator Relationship Specialty Start Date End Date Umm Coley MD [address] [place] [address] PCP - General Family Medicine 10/31/16 [place], BEBA [address] [place] [address] Senior Talent Management ConsultantRoll Up Operator 01/12/25 Eva Nunez Senior Talent Management Consultant 04/05/24 07/06/24 [facility] 05/11/24 11/17/24 [facility] 11/14/24 01/17/25 [facility] 12/08/24 documented as of this encounter
--- OUTSIDE RECORDS SUMMARY | 2025-02-16 14:07 | XMS_ITS | Clinical Summary ---
Author Organization [employer] Address [address] [place] [address] 7[address] [place] [address] Care Team Providers Care Paleobotanist Name Role Phone Shalonda Coley MD Primary Care Provider + [place] RN Unavailable [phone] Allergies Active Allergy Reactions Criticality Noted [...] VIA ORAL TODOS [facility] [facility] SEA NECESARIO FOR ALLERGIES 90 tablet 01/26/20 25 Active dicyclomine (Bentyl) 20 MG tablet Take 2 tablets (40 mg) by mouth every 6 (six) hours. PRN ABD PAIN/COLIC 240 tablet 11 02/02/20 24 025 loratadine (Claritin) 10 MG tabletIndicati ons:Rash TOME 1 TABLETA POR VIA ORAL TODOS LOS [place] EN LA [facility] SEA NECESARIO FOR ALLERGIES [...] her on a VNA service. Will ask [place] [...] continue f/u with mental health provider in [facility]. Dry eye 05/16/2024 Assessment & [...] She was [place] [facility], information given to pt to schedule appointment [...] write a complaint to the landlord, building sales office administrator, and housing department. I gave them information about legal consultant in the [place] court Will refer to caretaker to assist with housing due to poor conditions of current apartment Pt already has a letter from counselor, will FU at next appointment Household circumstance affecting care 02/03/2023 Assessment & Plan (12/11/2023 9:49 AM EST): Pt has depression and difficulty with memory. 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 I explained to patient [...] Plan (02/26/2023 1:11 PM EDT): Pt seeing [facility] team every week. I counseled [...] we can organize the medications. Pt and CERTIFIED MARINE MECHANIC agreed with the plan of care. POC discussed with team nurse and clerk supervisor. Assessment & Plan (04/28/2024 3:33 PM [...] (04/28/2024 5:25 PM EDT): Pt seen by [facility] clinician, continue psychotherapy every week. [...] she needs pharmaco education. She's followed by [facility] psych. I told her and CERTIFIED MARINE MECHANIC she needs to bring all her med bottles so we can go over her meds until the new VNA service is restarted. Her CERTIFIED MARINE MECHANIC is helping her as well as her daughter With meds for now. Pt feels safe. Will send new Rx if needed with prescription in [place] so VNA can read it (one of the issues being that med rx were written in Danish and the VNA that took over didn't understand the directions). Will check with VNA service to see what current situation is, pt wants to start using a new VNA service (the one her neighbor uses, [employer], [place] based) . Contusion of knee 02/16/2018 Motor [...] Plan (05/02/2024 5:56 PM EDT): -Followed by [facility] - last available consult note March [...] has to reschedule pharmacological stress test in [facility] dc amlodipine and flexeril and take Tylenol [...] Encounters Date Type Department Care Team Description 02/15/2025 Orders Only [facility] External Provider, [facility] 02/10/[address] [address] Shalonda Coley MD Care Management ([facility]3- Follow up call # 2) 02/07/[address] [phone] Shalonda Coley MD 02/07/[address] [address] Shalonda Coley MD Durable Medical Equipment (DME Script Handheld Shower(L&C)) 02/03/2025 2:00 PM EDT Office Visit [address] [address] Darrell Myers MD Lentigo (Primary Dx); Hypomelanosis 02/03/2025 Travel 2025 Orders Only [facility] External Provider, [facility] [address] [address] Shalonda Coley MD Medication Question 01/31/[address] [address] Shalonda Coley MD Care Management ([facility]- Follow up call # 2/ appt reminder/ LVM) 01/31/2025 Orders Only GENERIC EXTERNAL DATA DEPARTMENT Provider, Generic External Data 01/27/[address] [address] Shalonda Coley MD Appointment Request 01/27/[address] [phone] Shalonda Coley MD Appointment Request 01/25/2025 Refill [facility] [address] [place] [phone] Shalonda Coley MD Rash 01/24/2025 Telephone [facility] [address] [place] [phone] Shalonda Coley MD Care Management ([facility]- Follow Up Call # 1) 01/24/2025 Telephone [facility] [address] [place] [phone] Shalonda Coley MD 01/16/[address] [address] Shalonda Coley MD Care Management ([facility]) 01/13/2025 Patient Outreach [facility] [address] [place] [phone] Shalonda Coley MD Care Coordination ([facility] -[facility] telephone call outreach) 01/13/2025 Population Health Risk Score [facility] (C3) Department [address] [place] [phone] Provider, Population Health Generic 01/12/2025 Telephone [facility] [address] [place] [phone] Shalonda Coley MD Care Management ([facility]- Initial assessment/enrollme nt) 01/11/2025 Patient Outreach [address] [address] Shalonda Coley MD Care Coordination ([facility] Shannan Covington telephone call outreach) 01/06/2025 Telephone [facility] [address] [place] [phone] Shalonda Coley MD Nurse Triage 01/06/[address] [phone] Shalonda Coley MD FYI 01/04/2025 Telephone [facility] [address] [place] [address] Shalonda Coley MD VNA services 01/02/2025 Orders Only [facility] External Provider, [facility] 12/29/2024 Telephone [facility] [address] [facility] [place] [address] Shalonda Coley MD Results 12/28/2024 Telephone [facility] [address] [facility] [place] [address] Shalonda Coley MD 12/28/2024 Patient Outreach [facility] [address] [facility] [place] [address] Shalonda Coley MD Care Coordination ([facility] -[facility] Shannan Bañuelosz telephone call outreach) 12/28/2024 Patient Outreach [facility] [address] [facility] [place] [address] Shalonda Coley MD 12/28/2024 Telephone [facility] [address] [place] [address] Shalonda Coley MD Medication List 12/28/[address] [address] Shalonda Coley MD Care Management ([id number] review) 12/27/2024 1:00 PM EST Office Visit [address] [place] [address] Shalonda Coley MD Encounter for monitoring of patient compliance in drug treatment program (Primary Dx); Intercostal pain 12/27/2024 Travel 12/26/[address] [address] Shalonda Coley MD ED f/u call 12/26/[address] [place] [address] Shalonda Coley MD Appointment Request 12/23/[address] [phone] Shalonda Coley MD Chart prep 12/22/[address] [address] Shalonda Coley MD Appointment Request 12/20/[address] [address] Shalonda Coley MD Call Back Request 12/13/[address] [address] Shalonda Coley MD PCP Contact ([employer] set up.) 12/09/2024 Travel 12/08/2024 12:15 PM EST Office Visit [address] [address] Shalonda Coley MD Recurrent falls (Primary Dx); Neuropathy of both feet; Generalized anxiety disorder 12/08/[address] [address] Gisela Reynoso, BEBA VNA services 12/08/2024 Travel 12/08/[address] [address] Shalonda Coley MD FYI. 12/07/[address] [address] Juana Connor MA Chart prep 12/05/[address] [address] Shalonda Coley MD Appointment Request 11/29/2024 Orders Only [address] [address] Shalonda Coley MD from Last 3 Months [...] Description 03/08/2025 10:00 AM EDT Office Visit [facility] [address] [place] [address] Elzbieta, Mariangel [address] [place] [address] 05/02/2025 10:30 AM EDT Office Visit [facility] [address] [place] [address] Shalonda Coley MD [address] [place] [address] Health Maintenance Due Date Last Done Comments [...] Comments XR WRIST 3+ VIEWS RIGHT Routine 02/15/2025 1:40 PM EDT XR WRIST 3+ VIEWS RIGHT Routine 2025 [...] Results * XR Wrist 3+ Views Right (02/15/2025 1:40 PM EDT) Only the most recent of2 resultswithin the time period is included. Anatomical Region Laterality Modality Upper Extremities, Wrist Right Radiogr aphic Imaging 02/15/2025 1:40 PM EDT Narrative 02/16/2025 9:26 AM EDT ? [facility] ? [address] ?[place], [place] [address] ?XRay Report ? Signed ? Patient: Myles,Diana L ?MR#: [id number] ?? 8 ? : 1965 ?Acct:[id number] ? Age/Sex: 60 / F ?ADM Date: 02/15/25 ? Loc: HO.HOSX ? Attending Dr: Zhuo PALENCIA ? Ordering Physician: Zhou Sosa ?? Date of Service: 02/15/25 ?? Procedure(s): XR wrist RT min 3V ?? Accession Number(s): [id number] ? cc: Zhou Sosa; Shalonda Coley MD ? EXAMINATION: ??XR WRIST 3 OR MORE VIEWS RIGHT ? HISTORY: M25.531 - Pain in right wrist ? COMPARISON: Comparison is made with the prior examination dated ?? 2025. ? FINDINGS: ? Three views of the right wrist are submitted. ??The bones are ?? osteopenic. ??The patient is again noted to be status post internal ?? fixation of a fracture of the distal radius with a sideplate and ?? multiple orthopedic screws. The fracture line is less well visualized, ?? consistent with healing. Again seen is a fracture of the ulnar ?? metaphysis as well as a fracture of the ulnar styloid. ??The joint ?? spaces are preserved. ??The soft tissues are unremarkable. ? XR/XR wrist RT min 3V ?? IMPRESSION: ? Healing internally fixed fracture of the distal radius. Additional ?? fractures of the ulnar metaphysis and ulnar styloid. ? Electronically signed by: ??Beka Packer MD ??02/16/2025 09:21 AM EDT ?? RP ? Dictated By: ?Beka Packer MD ? Signed By: ?<Electronically signed by Beka Packer MD in OV> ?02/16/25 0921 ? DD/ 1340 ? TD/TT: 02/15/25 1345 ? Optical Model Maker And Tester: ? Procedure Note Donotuseinterpreter, Image - 02/16/2025 [facility] [address] [place] [address] Drive [address] [place] [address] XRay Report Signed Patient: Diana Myles LMR#: [id number] 8 : 1965Acct:[id number] Age/Sex: 60 / FADM Date: 02/15/25 Loc: HO.HOSX Attending Dr: Zhou PALENCIA Ordering Physician: Zhou Sosa Date of Service: 02/15/25 Procedure(s): XR wrist RT min 3V Accession Number(s): [id number] cc: Zhou Sosa; Shalonda Coley MD EXAMINATION: XR WRIST 3 OR MORE VIEWS RIGHT HISTORY: M25.531 - Pain in right wrist COMPARISON: Comparison is made with the prior examination dated 2025. FINDINGS: Three views of the right wrist are submitted. The bones are osteopenic. The patient is again noted to be status post internal fixation of a fracture of the distal radius with a sideplate and multiple orthopedic screws. The fracture line is less well visualized, consistent with healing. Again seen is a fracture of the ulnar metaphysis as well as a fracture of the ulnar styloid. The joint spaces are preserved. The soft tissues are unremarkable. XR/XR wrist RT min 3V IMPRESSION: Healing internally fixed fracture of the distal radius. Additional fractures of the ulnar metaphysis and ulnar styloid. Electronically signed by: Beka Packer MD 02/16/2025 09:21 AM EDT Dictated By: Beka Packer MD Signed By: <Electronically signed by Beka Packer MD in OV> 02/16/25 0921 DD/ 1340 TD/TT: 02/15/25 1345 Optical Model Maker And Tester: [facility] External Provider IMG XR PROCEDURES Final Result * Vitamin D, 25-Hydroxy, Total, Immunoassay (01/31/2025 8:47 AM EDT) Vitamin D 25-OH Total 39.3 >30 ng/mL [facility] Comment: Health Based Reference Values*< 20 ??ng/mL ??Mtaisxwam71-34 ng/mL ??Insufficient> 30 ??ng/mL ??Sufficient*Bakari PINO. N [...] MD LAB BLOOD ORDERABLES Fin al Result [facility] [address] [place] [phone] * Vitamin B12 (Cobalamin) and Folate Panel, Serum (01/31/2025 8:47 AM EDT) Vitamin B12 644 200 - 900 pg/mL [facility] Comment:NORMAL 200-900 PG/ML INDETERMINATE 160-199 PG/ML DEFICIENT < 160 PG/ML Folate 11.1 > or = 4.0 ng/mL [facility] Comment:Reference Values:> o r = 4.0 ng/mL< 4.0 ng/mL suggests folate deficiency Methotrexate, aminopterin and folinic acid(leucovorin) are chemotherapeutic agents whose molecularstructures are similar to folate; therefore, the Architectfolate assay cannot be used for patients using these drugs. 01/31/2025 8:47 AM EDT 01/31/2025 8:47 AM EDT us Generic External Data Provider LAB BLOOD ORDERAB LES Final Result Performing Organization Address [facility]/ZIP Co de Phone Number [facility] [address] [place] [phone] * TSH with Reflex to Free T4 (01/31/2025 8:47 AM EDT) TSH reflex Free T4 2.06 0.32 - 4.0 uIU/mL [facility] Blood 01/31/2025 8:47 AM EDT 01/31/2025 8:47 AM EDT us Shalonda Coley MD LAB BLOOD ORDERABLES Fin al Result Performing Organization Address [facility]/ZIP Co de Phone Number [facility] [address] [place] [phone] * (ABNORMAL) Lipid Panel with Reflex to Direct LDL (01/31/2025 8:47 AM EDT) Triglycerides 69 <150 mg/dL [facility] Comment:Desirable Triglyceri de: less than 150 mg/dLBorderline High Triglyceride 150-199 mg/dLHigh Triglyceride: 200-499 mg/dLVery High Triglyceride: greater than or equal to 5OO mg/dL Cholesterol 213(H) <200 mg/dL [facility] Comment:Desirable Cholestero l: less than 200 mg/dLBorderline High Cholesterol: 200-239 mg/dLHigh Cholesterol: greater than 239 mg/dL LDL Cholesterol Calculated 128(H) <100 mg/dL [facility] Comment:Desirable LDL: less than 100 mg/dLNear Optimal/Above Optimal LDL: 110- 129 mg/dLBorderline High LDL: 130-159 mg/dLHigh LDL: 160-189 mg/dLVery High LDL: greater than or equal to 190 mg/dL HDL Cholesterol 72 >40 mg/dL [facility] Comment:Desirable HDL: great er than 40 mg/dL Note: This HDL assay may give artificially low results in patients with liver disease. Blood 01/31/2025 8:47 AM EDT 01/31/2025 8:47 AM EDT us Shalonda Coley MD LAB BLOOD ORDERABLES Fin al Result [facility] [address] [place] [phone] [phone] * (ABNORMAL) CBC auto differential (01/31/2025 8:47 AM EDT) White Blood Count 6.4 4.8 - 10.8 X10*3/uL [facility] Red Blood Count 4.21 4.20 - 5.50 X10*6/uL [facility] Hemoglobin 12.9 12.0 - 16.0 g/dl [facility] Hematocrit 38.8 37.0 - 47.0 % [facility] Mean Corpuscular Volume 92.2 80.0 - 98.0 fL [facility] Mean Corpuscular Hemoglobin 30.6 27.0 - 33.0 pg [facility] Mean Corpuscular HGB Conc 33.2 31.0 - 35.0 g/dl [facility] Red Cell Distribution Width 13.2 11.0 - 16.0 % [facility] Platelet Count 312 160 - 400 X10*3/uL [facility] Mean Platelet Volume 9.0(L) 9.4 - 12.3 fL [facility] Neutrophils Percent Auto 69.5 45 - 73 % [facility] Imm Gran Pct Auto 0.3 0.0 - 0.4 % [facility] Lymphocytes Percent Auto 22.7 20 - 40 % [facility] Monocytes Percent Auto 5.9 2 - 11 % [facility] Eosinophils Percent Auto 1.1 0 - 4 % [facility] Basophils Percent Auto 0.5 0 - 2 % [facility] NRBC Pct Auto 0.0 0.0 - 0.2 /100WBC [facility] Neutrophils Absolute Auto 4.4 2.0 - 8.3 x10*3/uL [facility] Imm Gran Abs Auto 0.02 0.00 - 0.03 X10*3/uL [facility] Lymphocytes Absolute Auto 1.5 1.2 - 4.9 X10*3/uL [facility] Monocytes Absolute Auto 0.4 0.1 - 1.2 X10*3/uL [facility] Eosinophils Absolute Auto 0.1 0.0 - 0.4 X10*3/uL [facility] Basophils Absolute Auto 0.0 0.0 - 0.2 X10*3/uL [facility] NRBC Abs Auto 0.000 0.0 - 0.012 X10*3/uL [facility] 01/31/2025 8:47 AM EDT 01/31/2025 8:47 AM EDT us Generic External Data Provider LAB BLOOD ORDERAB LES Final Result [facility] [address] [place] [phone] * Methylmalonic Acid (01/31/2025 8:47 AM EDT) Methylmalonic Acid 132 69 - 390 nmol/L [facility] Comment: Serum methylmalonic acid (MMA) levels [...] outcomes,such as neural tube defects and intrauterine growthrestriction.[employer] utilized Multi-Modal Decomposition(MMD) analysis to establish first and second trimester-specific MMA reference intervals in , as givenbelow:MMA, First trimester (<13 wks gestation): 58-167 nmol/LMMA, Second trimester (13-23 wks gestation):63-241 nmol/LThis test was developed and its analytical performancecharacteristics have been determined by [employer]. It has not been cleared or approved by theA. This assay has been validated pursuant to the CLIAregulations and is used for clinical purposes.THIS TEST WAS PERFORMED AT:[id number] [place], [place] ??[id number] W. MASON,MD,PHD 01/31/2025 8:47 AM EDT 01/31/2025 8:47 AM EDT Generic External Data Provider LAB BLOOD ORDERAB LES Final Result Performing Organization Address [facility] Co de Phone Number [facility] [address] [place] [phone] * Iron And Total Iron Binding Capacity (01/31/2025 8:47 AM EDT) Iron 47 30 - 160 mcg/dL [facility] Total Iron Binding Capacity 268 228 - 428 mcg/dL [facility] Percent Iron Saturation 18 15 - 50 % [facility] Unsaturated Iron Binding 221 ug/dL [facility] 01/31/2025 8:47 AM EDT 01/31/2025 8:47 AM EDT us Generic External Data Provider LAB BLOOD ORDERAB LES Final Result Performing Organization Address [facility]/ZIP Co de Phone Number [facility] [address] [place] [phone] * (ABNORMAL) Amitriptyline (01/31/2025 8:47 AM EDT) Amitriptyline <5 mcg/L [facility] Nortriptyline <5 mcg/L [facility] Total (Amitriptyline+Nortriptyline) <5(A) 100 - 250 mcg/L [facility] Comment:This test was develo ped and its analytical performancecharacteristics have been determined by [facility] [place], [place]. It hasnot been cleared or approved by the U.S. Food and DrugAdministration. This assay has been validated pursuantto the CLIA regulations and is used for clinicalpurposes.THIS TEST WAS PERFORMED AT:[employer]/[id number] [place] [address]ZSMPTIQROHAN QUIROZ MD,PHD 01/31/2025 8:47 AM EDT 01/31/2025 8:47 AM EDT us Generic External Data Provider LAB BLOOD ORDERAB LES Final Result Performing Organization Address [facility] Co de Phone Number [facility] [address] [place] [phone] * Magnesium (01/31/2025 8:47 AM EDT) Magnesium 2.1 1.6 - 2.6 mg/dL [facility] 01/31/2025 8:47 AM EDT 01/31/2025 8:47 AM EDT Generic External Data Provider LAB BLOOD ORDERAB LES Final Result Performing Organization Address [facility] Co de Phone Number [facility] [address] [place] [phone] * (ABNORMAL) Homocysteine (01/31/2025 8:47 AM EDT) Homocysteine 11.1(A) <10.4 umol/L [facility] Comment:Homocysteine is incr eased by functional deficiency offolate or vitamin B12. Testing for methylmalonic aciddifferentiates between these deficiencies. Other causesof increased homocysteine include renal failure, folateantagonists such as methotrexate and phenytoin, andexposure to nitrous oxide.karrie Parra al., Amparo Sisal Operator Med. 1999;131(5):331-9.THIS TEST WAS PERFORMED AT:[employer] [place] [id number] GROVE MD 01/31/2025 8:47 AM EDT 01/31/2025 8:47 AM EDT Generic External Data Provider LAB BLOOD ORDERAB LES Final Result Performing Organization Address [facility] de Phone Number [facility] [address] [place] [phone] * Ferritin (01/31/2025 8:47 AM EDT) Ferritin 161 10 - 250 ng/mL [facility] 01/31/2025 8:47 AM EDT 01/31/2025 8:47 AM EDT Generic External Data Provider LAB BLOOD ORDERAB LES Final Result Performing Organization Address [facility] de Phone Number [facility] [address] [place] [phone] * XR Elbow 3+ Views Right (01/09/2025 1:02 PM EDT) Anatomical Region Laterality Modality Upper Extremities, Elbow Right Radiogr aphic Imaging 01/09/2025 1:02 PM EDT Narrative 02/03/2025 7:56 AM EDT ? [facility] ? [address] ?[place] [address] ?XRay Report ? Signed ? Patient: Myles,Diana L ?MR#: [id number] ?? 8 ? : 1965 ?Acct:[id number] ? Age/Sex: 59 / F ?ADM Date: 03/10/25 ? Loc: HO.HOSX ? Attending Dr: Zhou PALENCIA ? Ordering Physician: Zhou Sosa ?? Date of Service: 01/09/25 ?? Procedure(s): XR elbow RT min 3V ?? Accession Number(s): [id number] ? cc: Zhou Sosa; Shalonda Coley MD [...] cast in the forearm no within the [id number]. ? XR/XR elbow RT min 3V ?? IMPRESSION: ?? No acute fracture or dislocation. ? Electronically signed by: ??Steven Coreas MD ??02/03/2025 07:54 AM ?? EDT RP ? Dictated By: ?Steven Gan MD ? Signed By: ?<Electronically signed by Steven Gary MD in OV> ? 02/03/25 0754 ? DD/ 1302 ? TD/TT: 01/09/25 1308 ? Optical Model Maker And Tester: ? Procedure Note Adalgisa, Image - 02/03/2025 [facility] [address] [place] [address] [address] [place] [address] XRay Report Signed Patient: Diana Myles LMR#: [id number] 8 : 1965Acct:[id number] Age/Sex: 59 / FADM Date: 01/09/25 [facility]: Zhou PALENCIA Ordering Physician: Zhou Sosa Date of Service: 01/09/25 Procedure(s): XR elbow RT min 3V Accession Number(s): [id number] cc: Zhou Sosa; Shalonda Coley MD EXAMINATION: XR ELBOW, RIGHT CLINICAL INFORMATION: M25.521 - Pain in right elbow COMPARISON: None available. TECHNIQUE: AP, lateral, and oblique views of the right elbow. FINDINGS: No acute cortical disruption or malalignment. No gross joint effusion. No subcutaneous emphysema. No lytic or blastic lesions. Fiberglas cast in the forearm no within the [id number]. XR/XR elbow RT min 3V IMPRESSION: No acute fracture or dislocation. Electronically signed by: Steven Coreas MD 02/03/2025 07:54 AM EDT RP Dictated By: Steven Gan MD Signed By: <Electronically signed by Steven Gary MDin OV> 02/03/25 0754 DD/ 1302 TD/TT: 01/09/25 1308 Optical Model Maker And Tester: us [facility] External Provider IMG XR PROCEDURES Final Result * FL Guidance in OR (01/02/2025 12:09 PM EST) Anatomical Region Laterality Modality X-Ray Angiograph y 01/02/2025 12:0 9 PM EST Narrative 01/03/2025 9:58 AM EST ? [facility] ?[address] ?[place] [address] ? Fluoroscopy Report ? Signed ? Patient: Diana Myles L ?MR#: [id number] ?? 8 ? : 1965 ?Acct:[id number] ? Age/Sex: 59 / F ?ADM Date: 01/02/25 ? Loc: HO.SSS ? Attending Dr: Sdyney Cleveland MD ? Ordering Physician: Sydney Cleveland MD ?? Date of Service: 01/02/25 ?? Procedure(s): FL guidance in OR ?? Accession Number(s): [id number] ? cc: Shalonda Coley MD; Sydney Cleveland [...] DD/ 1209 ? TD/TT: 01/02/25 1510 ? Optical Model Maker And Tester: ANTONY ? Procedure Note Donmiguelter, Image - 01/03/[address] [address] Fluoroscopy Report Signed Patient: Diana Myles LMR#: [id number] 8 : 1965Acct:[id number] Age/Sex: 59 / FADM Date: 01/02/25 Loc: HO.[facility] Attending Dr: Sydney Cleveland MD Ordering Physician: Sydney Cleveland MD Date of Service: 01/02/25 Procedure(s): FL guidance in OR Accession Number(s): [id number] cc: Shalonda Coley MD; Sydney Cleveland MD [...] 01/03/25 0956 DD/ 1209 TD/TT: 01/02/25 1510 Optical Model Maker And Tester: ANTONY us [facility] External Provider IMG IR PROCEDURES Final Result * XR Ribs 2 Views Right (12/27/2024 1:56 PM EST) Anatomical Region Laterality Modality Rib, Abdomen Right Radiographic Kyleigh ging 12/27/2024 1:56 PM EST Narrative 12/27/2024 2:35 PM EST ?[facility] ?[address] ?[place] [address] ?XRay Report ? Signed ? Patient: Myles,Diana L ?MR#: [id number] ?? 8 ? : 1965 ?Acct:[id number] ? Age/Sex: 59 / F ?ADM Date: 12/27/24 ? Loc: HO.HHCX ? Attending Dr: Shalonda Coley MD ? Ordering Physician: Shalonda Coley MD ?? Date of Service: 12/27/24 ?? Procedure(s): XR ribs RT 2V ?? Accession Number(s): [id number] ? cc: Shalonda Coley MD ? EXAMINATION: [...] MD in OV> ?12/27/24 1433 ? DD/ 5476 ? TD/TT: 12/27/24 1474 ? Optical Model Maker And Tester: ? Procedure Note Donotuseinterpreter, Image - 12/27/2024 [facility] [address] [place] [address] XRay Report Signed Patient: Diana Myles LMR#: [id number] 8 : 1965Acct:[id number] Age/Sex: 59 / FADM Date: 12/27/24 Loc: .HHX Attending Dr: Shalonda Coley MD Ordering Physician: Shalonda Coley MD Date of Service: 12/27/24 Procedure(s): XR ribs RT 2V Accession Number(s): [id number] cc: Shalonda Coley MD EXAMINATION: XR CHEST [...] 12/27/24 1433 DD/ 1356 TD/TT: 12/27/24 1424 Optical Model Maker And Tester: Shalonda Coley MD IMG XR PROCEDURES Final Result * XR Chest 2 Views (12/27/2024 1:56 PM EST) Only the most recent of2 resultswithin the time period is included. Anatomical Region Laterality Modality Chest Radiographic Kyleigh ging 12/27/2024 1:56 PM EST Narrative 12/27/2024 2:36 PM EST ?[facility] [facility] ?[address] ?[place] [address] ?XRay Report ? Signed ? Patient: Myles,Diana L ?MR#: [id number] ?? 8 ? : 1965 ?Acct:[id number] ? Age/Sex: 59 / F ?ADM Date: 12/27/24 ? Loc: HO.HHCX ? Attending Dr: Shalonda Coley MD ? Ordering Physician: Shalonda Coley MD ?? Date of Service: 12/27/24 ?? Procedure(s): XR chest 2V ?? Accession Number(s): [id number] ? cc: Shalonda Coley MD ? EXAMINATION: [...] MD in OV> ?12/27/24 1433 ? DD/ 2866 ? TD/TT: 12/27/24 1424 ? Optical Model Maker And Tester: ? Procedure Note Chin Diana - 12/27/[address] [address] XRay Report Signed Patient: Diana Myles LMR#: [id number] 8 : 1965Acct:[id number] Age/Sex: 59 / FADM Date: 12/27/24 Loc: HO.HHCX Attending Dr: Shalonda Coley MD Ordering Physician: Shalonda Coley MD Date of Service: 12/27/24 Procedure(s): XR chest 2V Accession Number(s): [id number] cc: Shalonda Coley MD EXAMINATION: XR CHEST [...] 12/27/24 1433 DD/ 1356 TD/TT: 12/27/24 1424 Optical Model Maker And Tester: us Shalodna Coley MD IMG XR PROCEDURES Final Result * XR HAND WRIST RT (12/23/2024 6:57 PM EST) Only the most recent of2 resultswithin the time period is included. Anatomical Region Laterality Modality Abdomen Radiographic Kyleigh ging 12/23/2024 6:57 PM EST Narrative 12/23/2024 6:59 PM EST ? [facility] ?[address] ?[place] [address] ?XRay Report ? Signed ? Patient: Myles,Diana L ?MR#: [id number] ?? 8 ? : 1965 ?Acct:[id number] ? Age/Sex: 59 / F ?ADM Date: 02/21/25 ? Loc: HO.ED ? Attending Dr: ? Ordering Physician: Diomedes Shultz ?? Date of Service: 12/23/24 ?? Procedure(s): XR hand wrist RT ?? Accession Number(s): [id number] ? cc: Diomedes Shultz; Shalonda Coley MD [...] ? DD/ 56 ? TD/TT: 12/23/241856 ? Optical Model Maker And Tester: ? Procedure Note Adalgisa, Image - 12/23/2024 [place] [address] XRay Report Signed Patient: Diana Myles LMR#: [id number] 8 : 1965Acct:[id number] Age/Sex: 59 / FADM Date: 12/23/24 Loc: HO.ED Attending Dr: Ordering Physician: Diomedes Shultz Date of Service: 12/23/24 Procedure(s): XR hand wrist RT Accession Number(s): [id number] cc: Diomedes Shultz; Shalonda Coley MD CLINICAL [...] in OV> 12/23/241857 DD/ 56 TD/TT: 12/23/241856 Optical Model Maker And Tester: us [facility] External Provider IMG XR PROCEDURES Final Result * CT Head w/o Contrast (12/23/2024 4:42 PM EST) Anatomical Region Laterality Modality Head, Neck Computed Tomogra phy 12/23/2024 4:42 PM EST Narrative 12/23/2024 4:54 PM EST ? [facility] ?[address] ?[place] [address] ? CT Scan Report ? Signed ? Patient: Myles,Diana L ?MR#: [id number] ?? 8 ? : 1965 ?Acct:[id number] ? Age/Sex: 59 / F ?ADM Date: 12/23/24 ? Loc: HO.ED ? Attending Dr: ? Ordering Physician: Diomedes Shultz ?? Date of Service: 12/23/24 ?? Procedure(s): CT head/brain wo IV con ?? Accession Number(s): [id number] ? cc: Diomedes Shultz; Shalonda Coley MD ? Report Number: ?? [id number]: Total DLP = ??821.00 mGy-cm ?? EXAMINATION: [...] OV> ?12/23/24 1651 ? DD/ ? TD/TT: 12/23/241641 ? Optical Model Maker And Tester: ? Procedure Note Chin Diana - 12/23/[address] [place] [address] [address] Scan Report Signed Patient: Diana Myles LMR#: [id number] 8 : 1965Acct:[id number] Age/Sex: 59 / FADM Date: 12/23/24 Loc: HO.ED Attending Dr: Ordering Physician: Diomedes Shultz Date of Service: 12/23/24 Procedure(s): CT head/brain wo IV con Accession Number(s): [id number] cc: Diomedes Shultz; Shalonda Coley MD Report Number: [id number]: Total DLP = 821.00 mGy-cm EXAMINATION: CT [...] 12/23/24 1651 DD/ 1642 TD/TT: 12/23/24 1642 Optical Model Maker And Tester: [facility] External Provider IMG CT PROCEDURES Final Result * CT Cervical Spine w/o Contrast (12/23/2024 3:29 PM EST) Anatomical Region Laterality Modality Spine, C-spine Computed Tomogra phy 12/23/2024 3:29 PM EST Narrative 12/23/2024 4:57 PM EST ? [facility] ?[address] ?[place] [address] ? CT Scan Report ? Signed ? Patient: Myles,Diana L ?MR#: [id number] ?? 8 ? : 1965 ?Acct:[id number] ? Age/Sex: 59 / F ?ADM Date: 12/23/24 ? Loc: HO.ED ? Attending Dr: ? Ordering Physician: Diomedes Shultz ?? Date of Service: 12/23/24 ?? Procedure(s): CT cervical spine wo IV con ?? Accession Number(s): [id number] ? cc: Diomedes Shultz; Shalonda Coley MD ? Report Number: ?? [id number]: Total DLP = ??821.00 mGy-cm ?? EXAMINATION: [...] DD/ 1529 ? TD/TT: 12/23/24 1642 ? Optical Model Maker And Tester: ? Procedure Note Donotuseinterpreter, Image - 12/23/[address] [address] [address] Scan Report Signed Patient: Diana Myles LMR#: [id number] 8 : 1965Acct:[id number] Age/Sex: 59 / FADM Date: 12/23/24 Loc: HO.ED Attending Dr: Ordering Physician: Diomedes Shultz Date of Service: 12/23/24 Procedure(s): CT cervical spine wo IV con Accession Number(s): [id number] cc: Diomedes Shultz; Shalonda Coley MD Report Number: [id number]: Total DLP = 821.00 mGy-cm EXAMINATION: CT [...] 12/23/24 1654 DD/ 1529 TD/TT: 12/23/24 1642 Optical Model Maker And Tester: [facility] External Provider IMG CT PROCEDURES Final Result * XR Shoulder 2+ Views Right (12/23/2024 3:09 PM EST) Anatomical Region Laterality Modality Upper Extremities, Shoulder Right Radi ographic Imaging 12/23/2024 3:09 PM EST Narrative 12/23/2024 3:43 PM EST ? [facility] ?[address] ?[place] [address] ?XRay Report ? Signed ? Patient: Shar,Diana L ?MR#: [id number] ?? 8 ? : 1965 ?Acct:[id number] ? Age/Sex: 59 / F ?ADM Date: 12/23/24 ? Loc: HO.ED ? Attending Dr: ? Ordering Physician: Diomedes Shultz ?? Date of Service: 12/23/24 ?? Procedure(s): XR shoulder RT min 2V ?? Accession Number(s): [id number] ? cc: Diomedes Shultz; Shalonda Coley MD [...] by Steven Gary MD in OV> ? 12/23/240 ? DD/ 1509 ? TD/TT: 12/23/24 1533 ? Optical Model Maker And Tester: ? Procedure Note Donkatelynjadenclaudiater, Image - 12/23/2024 [place] [address] XRay Report Signed Patient: Diana Myles LMR#: [id number] 8 : 1965Acct:[id number] Age/Sex: 59 / FADM Date: 12/23/24 Loc: HO.ED Attending Dr: Ordering Physician: Diomedes Shultz Date of Service: 12/23/24 Procedure(s): XR shoulder RT min 2V Accession Number(s): [id number] cc: Diomedes Shultz; Shalonda Coley MD EXAMINATION: [...] 12/23/24 1540 DD/ 1509 TD/TT: 12/23/24 1533 Optical Model Maker And Tester: [facility] External Provider IMG XR PROCEDURES Final Result * XR Hips Bilateral with Pelvis 1 view (12/23/2024 2:57 PM EST) Anatomical Region Laterality Modality Lower Extremities, Hip Bilateral Radiograp hic Imaging 12/23/2024 2:57 PM EST Narrative 12/23/2024 3:45 PM EST ? [facility] ?[address] ?[place] [address] ?XRay Report ? Signed ? Patient: Myles,Diana L ?MR#: [id number] ?? 8 ? : 1965 ?Acct:[id number] ? Age/Sex: 59 / F ?ADM Date: 12/23/24 ? Loc: HO.ED ? Attending Dr: ? Ordering Physician: Diomedes Shultz ?? Date of Service: 12/23/24 ?? Procedure(s): XR hip BI w PEL1V ?? Accession Number(s): [id number] ? cc: Diomedes Shultz; Shalonda Coley MD [...] DD/ 1457 ? TD/TT: 12/23/24 1533 ? Optical Model Maker And Tester: ? Procedure Note Chin Diana - 12/23/2024 [place] [address] [place] [address] XRay Report Signed Patient: Diana Myles LMR#: [id number] 8 : 1965Acct:[id number] Age/Sex: 59 / FADM Date: 12/23/24 Loc: HO.ED Attending Dr: Ordering Physician: Diomedes Shultz Date of Service: 12/23/24 Procedure(s): XR hip BI w PEL1V Accession Number(s): [id number] cc: Diomedes Shultz; Shalonda Coley MD EXAMINATION: [...] 12/23/24 1543 DD/ 1457 TD/TT: 12/23/24 1533 Optical Model Maker And Tester: [facility] External Provider IMG XR PROCEDURES Final Result * XR Knee 4+ Views Right (12/23/2024 2:57 PM EST) Anatomical Region Laterality Modality Lower Extremities, Knee Right Radiogra [facility] Imaging 12/23/2024 2:57 PM EST Narrative 12/23/2024 3:44 PM EST ? [facility] ?[address] ?[place] [address] ?XRay Report ? Signed ? Patient: Myles,Diana L ?MR#: [id number] ?? 8 ? : 1965 ?Acct:[id number] ? Age/Sex: 59 / F ?ADM Date: 02/21/25 ? Loc: HO.ED ? Attending Dr: ? Ordering Physician: Diomedes Shultz ?? Date of Service: 12/23/24 ?? Procedure(s): XR knee RT 4V ?? Accession Number(s): [id number] ? cc: Diomedes Shultz; Shalonda Coley MD [...] DD/ 1457 ? TD/TT: 12/23/24 1533 ? Optical Model Maker And Tester: ? Procedure Note Adalgisa, Image - 12/23/2024 [place] [address] XRay Report Signed Patient: Diana Myles LMR#: [id number] 8 : 1965Acct:[id number] Age/Sex: 59 / FADM Date: 12/23/24 Loc: HO.ED Attending Dr: Ordering Physician: Diomedes Shultz Date of Service: 12/23/24 Procedure(s): XR knee RT 4V Accession Number(s): [id number] cc: Diomedes Shultz; Shalonda Coley MD EXAMINATION: [...] 12/23/24 1541 DD/ 1457 TD/TT: 12/23/24 1533 Optical Model Maker And Tester: us [facility] External Provider IMG XR PROCEDURES Final Result * MR Knee w/o Contrast Left (12/06/2024 6:06 PM EST) Anatomical Region Laterality Modality Magnetic Resonan ce 12/06/2024 6:06 PM EST Narrative 12/08/2024 8:31 AM EST ? [facility] ?[address] ?[place] [address] ? Magnetic Resonance Report ? Signed ? Patient: Myles,Diana L ?MR#: [id number] ?? 8 ? : 1965 ?Acct:[id number] ? Age/Sex: 59 / F ?ADM Date: 12/06/24 ? Loc: HO.MRI ? Attending Dr: Denilson Forman PA-C ? Ordering Physician: Denilson Forman PA-C ?? Date of Service: 12/06/24 ?? Procedure(s): MR knee LT wo con ?? Accession Number(s): [id number] ? cc: Shalonda Coley MD; Denilson Forman [...] MD in OV> ?12/08/24 08 ? DD/ 05 ? TD/TT: 12/06/241816 ? Optical Model Maker And Tester: ? Procedure Note Donotuseinterpreter, Image - 12/08/2024 [place] [address] Magnetic Resonance Report Signed Patient: Diana Myles LMR#: [id number] 8 : 1965Acct:[id number] Age/Sex: 59 / FADM Date: 12/06/24 Loc: HO.MRI Attending Dr: Denilson Forman PA-C Ordering Physician: Denilson Forman PA-C Date of Service: 12/06/24 Procedure(s): MR knee LT wo con Accession Number(s): [id number] cc: Shalonda Coley MD; Denilson Forman PA-C [...] 12/08/24 0829 DD/ 1806 TD/TT: 12/06/24 1817 Optical Model Maker And Tester: [facility] External Provider IMG MRI PROCEDURES Final Result * BI Mammogram Screening Tomosynthesis Bilateral (11/29/2024 8:45 AM EST) Anatomical Region Laterality Modality Breast Bilateral Mammography 11/29/2024 8:45 AM EST Narrative 12/07/2024 3:35 PM EST ? [facility] ? [address] ?[place] [address] ? Mammography Report ? Signed ? Patient: Myles,Diana L ?MR#: [id number] ?? 8 ? : 1965 ?Acct:[id number] ? Age/Sex: 59 / F ?ADM Date: 01/28/25 ? Loc: HO.MAMMO ? Attending Dr: Shalonda Coley MD ? Ordering Physician: Shalonda Coley MD ?Results: 2Be ?? nign Findings ? Date of Service: 11/29/24 ?Follow Up: 1 Year From Orig ?? inal Mammogram ? Procedure(s): MM tomosynthesis screening BI ?? Accession Number(s): [id number] ? cc: Shalonda Coley MD ? EXAMINATION: [...] DD/ 0845 ? TD/TT: 11/29/24 0915 ? Optical Model Maker And Tester: ? Procedure Note Donmiguelter, Image - 12/07/2024 [facility] [address] [place] [address] Mammography Report Signed Patient: Diana Myles LMR#: [id number] 8 : 1965Acct:[id number] Age/Sex: 59 / FADM Date: 11/29/24 Loc: HO.MAMMO Attending Dr: Shalonda Coley MD Ordering Physician: Shalonda Coley MDResults: 2Be nign Findings Date of Service: 11/29/24Follow Up: 1 Year From Orig ina Mammogram Procedure(s): MM tomosynthesis screening BI Accession Number(s): [id number] cc: Shalonda Coley MD EXAMINATION: MM SCREENING [...] 12/07/24 1532 DD/ 0845 TD/TT: 11/29/24 0915 Optical Model Maker And Tester: us Shalonda Coley MD IMG BI PROCEDURES Edited Result - Final * (ABNORMAL) Hm Colonoscopy (07/30/2023) Colonoscopy Abnormal( A) Normal [facility] Comment:SSL polyp us Shalonda Coley MD HEALTH MAINTENANCE Final Result [facility] [address] [place] [phone] * Thinprep PAP and HPV nRNA E6/E7 (10/08/2022 9:30 AM EST) Clinical Information: None given [employer] [facility] [employer] [facility] LMP: NONE GIVEN [employer] Prev. PAP: NONE GIVEN [employer] Prev. BX: NONE GIVEN [employer] SOURCE: None given [employer] Statement Of Adequacy: SATISFACTORY FOR EVALUATION Age and/or menstrual status not provided [employer] Interpretation/Re sult: [employer] [facility] Comment: Negative for intraepithelial lesion or malignancy. Atrophic pattern; predominantly parabasal cells Senior Production Planner: [employer] [facility] Comment: DMM, CT(ASCP) CT screening location: [address] ??[address] Review Senior Production Planner: [employer] [facility] Comment: MAA, CT(ASCP) CT screening location: [address] ??[address] (Always Message) Que [employer] Comment: EXPLANATORY NOTE: The Pap is a [...] HPV nRNA E6/E7 Not Detected Not Detected [employer] Comment: Methodology: Hydrologist-Mediated Amplification This assay detects E6/E7 viral messenger RNA (mRNA) from 14 high-risk HPV types (16,18,31,33,35,39,45,51,52,56,58,59,66,68). Cervical sources are required for HPV testing. If a vaginal source from a patient who has had a total hysterectomy with removal of cervix was submitted, please contact the testing laboratory for alternative testing options. For additional information, please refer to http://education.Tumblr/faq/HNP209o0 (This link if provided for information/ educational purposes only.) 10/08/2022 9:30 AM EST 10/10/2022 1:07 AM EST Narrative [facility] - 10/14/2022 7:08 PM EST FASTING: UNKNOWN Shauna Matamoros [facility] PATHOLOGY ORDERABLES Final Result [facility] [address] [place] [address] [employer] [facility] [address], [facility] [place] [address] * HIV AB/AG (04/30/2022 11:28 AM EDT) [...] detection of this assay. ?? The [employer] Mgr HIV Ag/Ab Combo assay result and supplemental [...] Coley MD HISTORICAL/NON ORDERABLE LABS Final Result [facility] [address] from Last 3 Months or Most Recently Relevant to Health Maintenance Insurance Mustbin C3 Mustbin C3 [facility] ADULT Care Teams Paleobotanist Relationship Specialty Start Date End Date Shalonda Coley MD [address] [place] [address] PCP - General Family Medicine 10/31/16 [place], BEBA [address] [place] [address] Sprinkler Repair TechnicianCustomer Contact Specialist 01/12/25
--- OUTSIDE RECORDS SUMMARY | 2025-02-16 14:07 | XMS_ITS | Encounter Summary ---
Author Organization [employer] Address [address] [facility] [address]t [place] [address] Care Team Providers Care Rn Transport Name Role Phone Umm Coley MD Primary Care Provider + [place] RN Unavailable [phone] Reason for Visit * Reason Onset Date Comments Appointment 06/15/2023 Encounter Details Date Type Department Care Team ([facility] st Contact Info) Description 06/15/2023 Telephone [facility] ADULT DENTAL [address] [place] [address] Johnny Gonzalez, DMD [address] [place], [place] [phone] Appointment Social History Tobacco Use Types Packs/Day [...] Visit [facility] ADULT [facility]ENTAL [address] [place] [address] Elzbieta, Mariangel [address] [place] [address] 05/02/2025 10:30 AM EDT Office Visit [facility] MEDICINE [address] [place] [address] Umm Coley MD [address] [place] [address] documented as of this encounter Visit Diagnoses Not on filedocumented in this encounter Additional Health Concerns Assessment Noted Time PHQ-9 Depression Total Score: 12 023 1:58 PM EDT documented as of this encounter Care Teams Rn Transport Relationship Specialty Start Date End Date Umm Coley MD [address] [place] [address] PCP - General Family Medicine 10/31/16 [place], RN [address] [place] [address] Purchasing AssociateCone Operator 01/12/25 Eva Nunez Purchasing Associate 04/05/24 07/06/24 [facility] 05/11/24 11/17/24 [facility] 11/14/24 01/17/25 [place] [facility] 12/08/24 documented as of this encounter
--- OUTSIDE RECORDS SUMMARY | 2025-02-16 14:07 | XMS_ITS | Encounter Summary ---
Author Organization [employer] Address [address] [facility] [address] [place] [address] Care Team Providers Care Housekeeper/Laundry Assistant Name Role Phone Umm Coley MD Primary Care Provider + [place] RN Unavailable [phone] Reason for Visit * Reason Onset Date Comments appt 01/08/2024 Encounter Details Date Type Department Care Team ([facility] st Contact Info) Description 01/08/2024 Telephone [facility] ADULT DENTAL [address] [place] [address] Homer Strong, DMD [address] [place] [address] appt Social History Tobacco Use Types Packs/Day [...] 03/08/2025 10:00 AM EDT Office Visit [facility] ADULT DENTAL [address] [place] [address] Trino Ruffaris [address] [place] [address] 05/02/2025 10:30 AM EDT Office Visit [facility] MEDICINE [address] [place] [address] Umm Coley MD [address] [place] [address] documented as of this encounter Visit Diagnoses Not on filedocumented in this encounter Additional Health Concerns Assessment Noted Time PHQ-9 Depression Total Score: 21 024 11:31 AM EST documented as of this encounter Care Teams Housekeeper/Laundry Assistant Relationship Specialty Start Date End Date Umm Coley MD [address] [place] [address] PCP - General Family Medicine 10/31/16 [place], BEBA [address] [place] [address] Client LiaisonWorkforce Development Specialist 01/12/25 Eva Nunez Client Liaison 04/05/24 07/06/24 [facility] 05/11/24 11/17/24 [facility] 11/14/24 01/17/25 [employer] 12/08/24 documented as of this encounter
--- OUTSIDE RECORDS SUMMARY | 2025-02-16 14:07 | XMS_ITS | Encounter Summary ---
Author Organization [employer] Address [address] [facility] 7t [place] [address] Care Team Providers Care Bilingual Spanish Inbound Sales Name Role Phone Umm Coley MD Primary Care Provider + West Meier RN Unavailable [phone] Encounter Details Date Type Department Care Team (Late st Contact Info) Description 02/15/2025 Orders Only [facility] External Provider, [facility] Social History Tobacco Use Types Packs/Day [...] Description 03/08/2025 10:00 AM EDT Office Visit [facility] ADULT DENTAL [address] [place] [address] Elzbieta Mariangel [address] [place] [address] 05/02/2025 10:30 AM EDT Office Visit [facility] MEDICINE [address] [place] [address] Umm Coley MD 230 [place] [address] documented as of this encounter Procedures Procedure Name Priority Date/Time Associated Diagnosis Comments XR WRIST 3+ VIEWS RIGHT Routine 02/15/2025 1:40 PM EDT documented in this encounter Results * XR Wrist 3+ Views Right (02/15/2025 1:40 PM EDT) Anatomical Region Laterality Modality Upper Extremities, Wrist Right Radiogr aphic Imaging 02/15/2025 1:40 PM EDT Narrative 02/16/2025 9:26 AM EDT ? [facility] ? [address] ?[place] [address] ?XRay Report ? Signed ? Patient: Myles,Diana L ?MR#: [id number] ?? 8 ? : 1965 ?Acct:[id number] ? Age/Sex: 60 / F ?ADM Date: 04/16/25 ? Loc: HO.HOSX ? Attending Dr: Zhou PALENCIA ? Ordering Physician: Zhou Sosa ?? Date of Service: 02/15/25 ?? Procedure(s): XR wrist RT min 3V ?? Accession Number(s): [id number] ? cc: Zhou Sosa; Umm Coley MD ? EXAMINATION: ??XR WRIST 3 [...] ??Beka Packer MD ??02/16/2025 09:21 AM EDT ? Dictated By: ?Beka Packer MD ? Signed By: ?<Electronically signed by Beka Packer MD in OV> ?02/16/25 0921 ? DD/ 1340 ? TD/TT: 02/15/25 1345 ? Trousseau Consultant: ? Procedure Note Chin Diana - 02/16/2025 [facility] [address] [place] [address] [address] [place] [address] XRay Report Signed Patient: Diana Myles LMR#: [id number] 8 : 1965Acct:[id number] Age/Sex: 60 / FADM Date: 02/15/25 Loc: HO.HOSX Attending Dr: Zhou PALENCIA Ordering Physician: Zhou Sosa Date of Service: 02/15/25 Procedure(s): XR wrist RT min 3V Accession Number(s): [id number] cc: Zhou Sosa; Umm Coley MD EXAMINATION: XR WRIST 3 OR [...] Beka Packer MD 02/16/2025 09:21 AM EDT RP Dictated By: Beka Packer MD Signed By: <Electronically signed by Beka Packer MD in OV> 02/16/25 0921 DD/ 1340 TD/TT: 02/15/25 1345 Trousseau Consultant: [facility] External Provider IMG XR PROCEDURES Final Result documented in this encounter Visit Diagnoses Not on filedocumented in this encounter Additional Health Concerns Assessment Noted Time PHQ-9 Depression Total Score: 10 024 9:17 AM EDT documented as of this encounter Care Teams Bilingual Spanish Inbound Sales Relationship Specialty Start Date End Date Umm Coley MD [address] [place] [address] PCP - General Family Medicine 10/31/16 West Meier, BEBA [address] [place] [address] Wrapper OperatorTire Stripper 01/12/25 documented as of this encounter
--- OUTSIDE RECORDS SUMMARY | 2025-02-16 14:07 | XMS_ITS | Encounter Summary ---
Author Organization [employer] Address 75 [facility] 7t [place] [address] Care Team Providers Care Outside Collector Name Role Phone Umm Coley MD Primary Care Provider + West Meier RN Unavailable [phone] Encounter Details Date Type Department Care Team ([facility] st Contact Info) Description 08/23/2024 Orders Only [facility] ADULT DENTAL [address] [place], [place] [phone] Johnny Gonzalez, DMD 505 [place], [place] [phone] Social History Tobacco Use Types Packs/Day Years [...] Description 03/08/2025 10:00 AM EDT Office Visit [facility] ADULT DENTAL [address] [place] [address] Elzbieta, Mariangel [address] [place] [address] 05/02/2025 10:30 AM EDT Office Visit [facility] MEDICINE [address] [place] [address] Umm Coley MD [address] [place] [address] documented as of this encounter Visit Diagnoses Not on filedocumented in this encounter Additional Health Concerns Assessment Noted Time PHQ-9 Depression Total Score: 10 024 9:17 AM EDT documented as of this encounter Care Teams Outside Collector Relationship Specialty Start Date End Date Umm Coley MD 230 [place] [address] PCP - General Family Medicine 10/31/16 West Meier, RN 505 [place] [address] Lead JanitorInfo Print Press Operator 01/12/25 [facility] 05/11/24 11/17/24 Mir Almonte 11/14/24 01/17/25 [employer] 12/08/24 documented as of this encounter
--- OUTSIDE RECORDS SUMMARY | 2025-02-16 14:07 | XMS_ITS | Encounter Summary ---
Author Organization [facility] Address [address] [facility] 7t [place] [address] Care Team Providers Care Head Automatic Sawyer Name Role Phone Umm Coley MD Primary Care Provider + West Meier RN Unavailable [phone] Reason for Visit * Reason Comments Med Refill Encounter Details Date Type Department Care Team ([facility] st Contact Info) Description 05/21/2023 Refill [facility] MEDICINE [address] [place], [place] [phone] Umm Coley MD 230 [place], [place] [phone] Arthritis of knee Social History Tobacco Use [...] Description 03/08/2025 10:00 AM EDT Office Visit [facility] ADULT DENTAL 230 [place], [place] [phone] Mariangel Ruff 230 [place] [address] 05/02/2025 10:30 AM EDT Office Visit [facility] MEDICINE [address] [place] [address] Umm Coley MD [address] [place] [address] documented as of this encounter Visit Diagnoses Diagnosis Arthritis of knee Unspecified arthropathy, lower leg documented in this encounter Additional Health Concerns Assessment Noted Time PHQ-9 Depression Total Score: 12 023 1:58 PM EDT documented as of this encounter Care Teams Head Automatic Sawyer Relationship Specialty Start Date End Date Umm Coley MD [address] [place] [address] PCP - General Family Medicine 10/31/16 West Meier, BEBA 505 [place] [address] Central Office Equipment InstallerManufacturing Intern 01/12/25 Eva Nunez Central Office Equipment Installer 04/05/24 07/06/24 [facility] 05/11/24 11/17/24 [facility] 11/14/24 01/17/25 [employer] 12/08/24 documented as of this encounter
--- OUTSIDE RECORDS SUMMARY | 2025-02-16 14:07 | XMS_ITS | Encounter Summary ---
Author Organization [facility] Address [address] [place] [address] 7t [place] [address] Care Team Providers Care Writer Producer Name Role Phone Umm Coley MD Primary Care Provider + West Meier RN Unavailable [phone] Reason for Visit * Reason Comments Med Refill Encounter Details Date Type Department Care Team (Late Contact Info) Description 06/10/2023 Refill [facility] MEDICINE [address] [place] [address] Yenny Morris MD [address] [place] [address] Rash Social History Tobacco Use Types Packs/Day [...] [facility] ADULT DENTAL [address] [place] [address] Mariangel Ruff [address] [place] [address] 05/02/2025 10:30 AM EDT Office Visit [facility] MEDICINE [address] [place], [place] [phone] Umm Coley MD 230 [place] [address] documented as of this encounter Visit Diagnoses Diagnosis Rash Rash and other nonspecific skin eruption documented in this encounter Additional Health Concerns Assessment Noted Time PHQ-9 Depression Total Score: 12 023 1:58 PM EDT documented as of this encounter Care Teams Writer Producer Relationship Specialty Start Date End Date Umm Coley MD 230 [place] [address] PCP - General Family Medicine 10/31/16 West Meier, BEBA [address] [place] [address] Client Resource SpecialistMedical Education Specialist 01/12/25 Eva Nunez Client Resource Specialist 04/05/24 07/06/24 [facility] 05/11/24 11/17/24 [facility] 11/14/24 01/17/25 [employer] 12/08/24 documented as of this encounter
--- OUTSIDE RECORDS SUMMARY | 2025-02-16 14:07 | XMS_ITS | Encounter Summary ---
Author Organization [facility] Address [address] [place] [address] 7t [place] [address] Care Team Providers Care Internal Control Consultant Name Role Phone Umm Coley MD Primary Care Provider + West Meier RN Unavailable [phone] Encounter Details Date Type Department Care Team (Late st Contact Info) Description 09/24/2022 Abstract [facility] ADULT DENTAL [address] [place] [address] Dental, Provider, DDS Social History Tobacco Use [...] Office Visit [facility] ADULT DENTAL [address] [place] [address] Mariangel Ruff [address] [place] [address] 05/02/2025 10:30 AM EDT Office Visit [facility] MEDICINE [address] [place] [address] Umm Coley MD [address] [place] [address] documented as of this encounter Procedures Procedure [...] on filedocumented in this encounter Care Teams Internal Control Consultant Relationship Specialty Start Date End Date Umm Coley MD [address] [place] [address] PCP - General Family Medicine 10/31/16 West Meier, BEBA [address] [place] [address] Custom Stock MakerPork Cutlet Maker 01/12/25 Eva Nunez Custom Stock Maker 04/05/24 07/06/24 [facility] 05/11/24 11/17/24 [facility] 11/14/24 01/17/25 [employer] 12/08/24 documented as of this encounter
--- OUTSIDE RECORDS SUMMARY | 2025-02-16 14:07 | XMS_ITS | Encounter Summary ---
Author Organization [facility] Address [address] [place] [address] 7t [place] [address] Care Team Providers Care Reconciler Name Role Phone Umm Coley MD Primary Care Provider + West Meier RN Unavailable Encounter Details Date Type Department Care Team (Latest Contact Info) Description 11/14/2019 Abstract [facility] CONVERSIONS Dental, Provider, DDS Social History [...] EDT Office Visit [facility] ADULT DENTAL [address] [place] [address] Elzbieta, Mariangel [address] [place] [address] 05/02/2025 10:30 AM EDT Office Visit [facility] MEDICINE [address] [place] [address] Umm Coley MD [address] [place] [address] documented as of this encounter Visit Diagnoses Not on filedocumented in this encounter Care Teams Reconciler Relationship Specialty Start Date End Date Umm Coley MD [address] [place] [address] PCP - General Family Medicine 10/31/16 eWst Meier, BEBA [address] [place] [address] Outside Maintenance WorkerHealth And Fitness Professor 01/12/25 Eva Nunez Outside Maintenance Worker 04/05/24 07/06/24 [facility] 05/11/24 11/17/24 [facility] 11/14/24 01/17/25 [employer] 12/08/24 documented as of this encounter
--- OUTSIDE RECORDS SUMMARY | 2025-02-16 14:07 | XMS_ITS | Encounter Summary ---
Author Organization [employer] Address [address] [facility] 7t [place] [address] Care Team Providers Care Project Scientist Name Role Phone Umm Coley MD Primary Care Provider + West Meier RN Unavailable [phone] Reason for Visit * Reason Comments Med Change Request Encounter Details Date Type Department Care Team ([facility] Contact Info) Description 03/20/2023 Refill [facility] ADULT DENTAL [address] [place] [address] Johnny Gonzalez DMD 505 [place] [address] Social History Tobacco Use Types Packs/Day Years [...] 10:00 AM EDT Office Visit [facility] ADULT DENTAL [address] [place], [place] [phone] Trino Ruffaris [address] [place] [address] 05/02/2025 10:30 AM EDT Office Visit [facility] MEDICINE [address] [place], [place] [phone] Umm Coley MD [address] [place] [address] documented as of this encounter Visit Diagnoses Not on filedocumented in this encounter Care Teams Project Scientist Relationship Specialty Start Date End Date Umm Coley MD 230 [place] [address] PCP - General Family Medicine 10/31/16 West Meier, BEBA [address] [place] [address] Building Construction EstimatorNutrition Educator 01/12/25 Eva Nunez Building Construction Estimator 04/05/24 07/06/24 [facility] 05/11/24 11/17/24 [facility] 11/14/24 01/17/25 [facility] 12/08/24 documented as of this encounter
--- OUTSIDE RECORDS SUMMARY | 2025-02-16 14:07 | XMS_ITS | Encounter Summary ---
Author Organization [employer] Address 75 [facility] 7t [place] [address] Care Team Providers Care Medical Review Specialist Name Role Phone Umm Coley MD Primary Care Provider + West Meier RN Unavailable [phone] Reason for Visit * Reason Onset Date Comments pre med prior to dental treatment 08/23/2024 Encounter Details Date Type Department Care Team (Late st Contact Info) Description 08/23/2024 Telephone [facility] CHC ADULT DENTAL [address] [place] [address] Johnny Gonzalez, DMD [address] [place], [place] [phone] pre med prior to dental treatment Social [...] spoke with Nina in the front desk manager with a run through of what was happening with the patient and she stated she would also send something to provider for clarificationDR documented in this encounter Plan of Treatment Upcoming Encounters Date Type Department Care Team (Late st Contact Info) Description 03/08/2025 10:00 AM EDT Office Visit [facility] ADULT DENTAL [address] [place] [address] Elzbieta Mariangel 230 [place] [address] 05/02/2025 10:30 AM EDT Office Visit [facility] MEDICINE [address] [place], [place] [phone] Umm Coley MD 230 [place] [address] documented as of this encounter Visit Diagnoses Not on filedocumented in this encounter Additional Health Concerns Assessment Noted Time PHQ-9 Depression Total Score: 10 024 9:17 AM EDT documented as of this encounter Care Teams Medical Review Specialist Relationship Specialty Start Date End Date Umm Coley MD [address] [place] [address] PCP - General Family Medicine 10/31/16 West Meier, RN [address] [place] [address] Machine Sole LevelerBoat Designer 01/12/25 [facility] 05/11/24 11/17/24 [facility] 11/14/24 01/17/25 [employer] 12/08/24 documented as of this encounter
--- OUTSIDE RECORDS SUMMARY | 2025-02-16 14:07 | XMS_ITS | Encounter Summary ---
Author Organization [facility] Address [address] [place] [address] 7t [place] [address] Care Team Providers Care Underground Drill Operator Name Role Phone Umm Coley MD Primary Care Provider + West Meier RN Unavailable [phone] Reason for Visit * Reason Comments Med Refill Encounter Details Date Type Department Care Team (Late Contact Info) Description 08/01/2023 Refill [facility] MEDICINE [address] [place] [address] Umm Coley MD [address] [place] [address] Social History Tobacco Use Types Packs/Day Years [...] 10:00 AM EDT Office Visit [facility] ADULT DENTAL [address] [place] [address] Mariangel Ruff [address] [place] [address] 05/02/2025 10:30 AM EDT Office Visit [facility] MEDICINE [address] [place], [place] [phone] Umm Coley MD [address] [place] [address] documented as of this encounter Visit Diagnoses Not on filedocumented in this encounter Additional Health Concerns Assessment Noted Time PHQ-9 Depression Total Score: 12 023 1:58 PM EDT documented as of this encounter Care Teams Underground Drill Operator Relationship Specialty Start Date End Date Umm Coley MD [address] [place] [address] PCP - General Family Medicine 10/31/16 West Meier RN 505 [place] [address] Oracle Reports DeveloperElectronics Warfare Technician 01/12/25 Eva Nunez Oracle Reports Developer 04/05/24 07/06/24 [facility] 05/11/24 11/17/24 [facility] 11/14/24 01/17/25 [employer] 12/08/24 documented as of this encounter
--- OUTSIDE RECORDS SUMMARY | 2025-02-16 14:08 | XMS_ITS | Encounter Summary ---
Author Organization [facility] Address [address] [facility] 7t [place] [address] Care Team Providers Care Building Trades Teacher Name Role Phone Umm Coley MD Primary Care Provider + West Meier RN Unavailable [phone] Reason for Visit * Reason Comments Med Refill Encounter Details Date Type Department Care Team (Late st Contact Info) Description 02/05/2023 Refill [facility] MEDICINE [address] [place] [address] Umm Coley MD [address] [place] [address] Arthritis of knee Social History Tobacco Use [...] Visit [facility] ADULT DENTAL [address] [place], [place] [phone] Mariangel Ruff [address] [place] [address] 05/02/2025 10:30 AM EDT Office Visit [facility] MEDICINE [address] [place], [place] [phone] Umm Coley MD [address] [place] [address] documented as of this encounter Visit Diagnoses Diagnosis Arthritis of knee Unspecified arthropathy, lower leg documented in this encounter Care Teams Building Trades Teacher Relationship Specialty Start Date End Date Umm Coley MD [address] [place] [address] PCP - General Family Medicine 10/31/16 West Meier RN 505 [place] [address] Morals Squad Police OfficerChemical Maker 01/12/25 Eva Nunez Morals Squad Police Officer 04/05/24 07/06/24 [facility] 05/11/24 11/17/24 [facility] 11/14/24 01/17/25 [employer] 12/08/24 documented as of this encounter
--- OUTSIDE RECORDS SUMMARY | 2025-02-16 14:08 | XMS_ITS | Encounter Summary ---
Author Organization [employer] Address [address] [place] [address] 7t [place] [address] Care Team Providers Care Loan Supervisor Name Role Phone Umm Coley MD Primary Care Provider + West Meier RN Unavailable [phone] Encounter Details Date Type Department Care Team (Late Contact Info) Description 03/05/2023 Orders Only [facility] MEDICINE [address] [place] [address] Umm Coley MD [address] [place] [address] Social History Tobacco Use Types Packs/Day Years [...] [facility] ADULT DENTAL [address] [place], [place] [phone] Mariangel Ruff [address] [place] [address] 05/02/2025 10:30 AM EDT Office Visit [facility] MEDICINE [address] [place], [place] [phone] Umm Coley MD 230 [place], [place] [phone] documented as of this encounter Visit Diagnoses Not on filedocumented in this encounter Care Teams Loan Supervisor Relationship Specialty Start Date End Date Umm Coley MD 230 [place], [place] [phone] PCP - General Family Medicine 10/31/16 West Meier, RN [address] [place] [address] Fisher Troll LineTechnology Teacher 01/12/25 Eva Nunez Fisher Troll Line 04/05/24 07/06/24 [facility] 05/11/24 11/17/24 [facility] 11/14/24 01/17/25 [employer] 12/08/24 documented as of this encounter
--- OUTSIDE RECORDS SUMMARY | 2025-02-16 14:08 | XMS_ITS | Encounter Summary ---
Author Organization [employer] Address [address] [facility] 7t [place] [address] Care Team Providers Care Administrative Appeals Tribunal Member Name Role Phone Umm Coley MD Primary Care Provider + West Meier RN Unavailable [phone] Reason for Visit * Reason Onset Date Comments Appointment 03/17/2023 Encounter Details Date Type Department Care Team ([facility] st Contact Info) Description 03/17/2023 Telephone [facility] ADULT DENTAL [address] [place] [address] Johnny Gonzalez, WILIAN [address] [place], [place] [phone] Appointment Social History Tobacco Use Types Packs/Day [...] [facility] [address] [place] [address] ElzbietaTrinoMariangel [address] [place] [address] 05/02/2025 10:30 AM EDT Office Visit [facility] MEDICINE [address] [place] [address] Umm Coley MD [address] [place] [address] documented as of this encounter Visit Diagnoses Not on filedocumented in this encounter Care Teams Administrative Appeals Tribunal Member Relationship Specialty Start Date End Date Umm Coley MD 230 [place] [address] PCP - General Family Medicine 10/31/16 West Meier, RN 505 [place] [address] Engine Dynamometer TesterComputer Mechanic 01/12/25 Eva Nunez Engine Dynamometer Tester 04/05/24 07/06/24 [facility] 05/11/24 11/17/24 [facility] 11/14/24 01/17/25 Red [employer] 12/08/24 documented as of this encounter
--- OUTSIDE RECORDS SUMMARY | 2025-02-16 14:08 | XMS_ITS | Encounter Summary ---
Author Organization [employer] Address [address] [facility] 7t [place] [address] Care Team Providers Care Fiberglass Boat Assembly Supervisor Name Role Phone Umm Coley MD Primary Care Provider + West Meier RN Unavailable Reason for Visit * Reason Onset Date Comments Appointment 02/24/2023 Encounter Details Date Type Department Care Team ([facility] st Contact Info) Description 02/24/2023 Telephone [facility] ADULT DENTAL 230 [place] [address] Johnny Gonzalez, WILIAN [address] [place], [place] [phone] Appointment Social History Tobacco Use Types Packs/Day [...] Visit [facility] ADULT DENTAL [address] [place] [address] Elzbieta, Mariangel 230 [place] [address] 05/02/2025 10:30 AM EDT Office Visit [facility] MEDICINE [address] [place] [address] Umm Coley MD [address] [place] [address] documented as of this encounter Visit Diagnoses Not on filedocumented in this encounter Care Teams Fiberglass Boat Assembly Supervisor Relationship Specialty Start Date End Date Umm Coley MD [address] [place] [address] PCP - General Family Medicine 10/31/16 West Meier, RN [address] [place] [address] Procedures TechAssociate Artistic Director 01/12/25 Eva Nunez Procedures Tech 04/05/24 07/06/24 [facility] 05/11/24 11/17/24 [facility] 11/14/24 01/17/25 [employer] 12/08/24 documented as of this encounter
== END 2025-02-16 12:01 | disposition home or self-care (01) ==
LOC: HO.PMC 11:22
PROVIDERS: PCP Internal Medicine; Referring Provider Physician Assistant; Visit Provider Anesthesiology
DX: M75.81 Other shoulder lesions, right shoulder (principal); M19.011 Primary osteoarthritis, right shoulder; G89.4 Chronic pain syndrome; M25.511 Pain in right shoulder; M17.12 Unilateral primary osteoarthritis, left knee
CPT/HCPCS: 99213

== ENCOUNTER → 2025-02-16 11:22 | Outpatient (BNVA) | payer MEDICAID, SELFPAY | PROVIDERS: PCP Internal Medicine; Referring Provider Physician Assistant; Visit Provider Anesthesiology | DX: M17.12 Unilateral primary osteoarthritis, left knee (principal); M75.81 Other shoulder lesions, right shoulder; M19.011 Primary osteoarthritis, right shoulder; G89.4 Chronic pain syndrome | CPT/HCPCS: 99212 ==

== ENCOUNTER 2025-02-17 12:48 | Outpatient (AMB) | payer MEDICAID, SELFPAY ==
--- OUTSIDE RECORDS SUMMARY | 2025-02-17 13:21 | XMS_ITS | Encounter Summary ---
Author Organization [employer] Address [address] [facility] 7t [place] [address] Care Team Providers Care Facing Baster Jumpbasting Name Role Phone Umm Coley MD Primary Care Provider + West Meier RN Unavailable [phone] Encounter Details Date Type Department Care Team (Late st Contact Info) Description 11/03/2022 Orders Only [facility] MEDICINE [address] [place], [place] [phone] Umm Coley MD [address] [place], [place] [phone] Osteopenia after menopause (Primary Dx) Social History [...] Description 03/08/2025 10:00 AM EDT Office Visit [facility] ADULT DENTAL [address] [place], [place] [phone] Mariangel Ruff [address] [place] [address] 05/02/2025 10:30 AM EDT Office Visit [facility] MEDICINE [address] [place], [place] [phone] Umm Coley MD [address] [place] [address] [phone] Scheduled Orders Name Type Priority Associated Diagnoses Orde r Schedule Vitamin D, 25-Hydroxy, Total, Immunoassay Lab Routine Osteopenia after menopause Expected: 11/03/2022 (Approximate), Expires: 11/03/2023 PTH, Intact (ICMA) And Ionized Calcium Lab Routine Osteopenia after menopause Expected: 11/03/2022 (Approximate), Expires: 11/03/2023 documented as of this encounter Visit Diagnoses Diagnosis Osteopenia after menopause- Primary documented in this encounter Care Teams Facing Baster Jumpbasting Relationship Specialty Start Date End Date Umm Coley MD [address] [place] [address] PCP - General Family Medicine 10/31/16 West Meier, BEBA [address] [place] [address] Bar Host/HostessMobility Architect 01/12/25 Eva Nunez Bar Host/Hostess 04/05/24 07/06/24 [facility] 05/11/24 11/17/24 [facility] 11/14/24 01/17/25 [employer] 12/08/24 documented as of this encounter
--- OUTSIDE RECORDS SUMMARY | 2025-02-17 13:21 | XMS_ITS | Encounter Summary ---
Author Organization [email or web address] Address [address] [place] [address] 7t [place] [address] Care Team Providers Care Radio Division Lieutenant Name Role Phone Umm Coley MD Primary Care Provider + West Meier RN Unavailable [phone] Encounter Details Date Type Department Care Team (Late Contact Info) Description 03/05/2023 Orders Only [facility] MEDICINE [address] [place] [address] Umm Coley MD [address] [place] [address] Social History Tobacco Use Types Packs/Day Years [...] [facility] ADULT DENTAL [address] [place], [place] [phone] Mariangel Ruff [address] [place] [address] 05/02/2025 10:30 AM EDT Office Visit [facility] MEDICINE [address] [place], [place] [phone] Umm Coley MD [address] [place], [place] [phone] documented as of this encounter Visit Diagnoses Not on filedocumented in this encounter Care Teams Radio Division Lieutenant Relationship Specialty Start Date End Date Umm Coley MD [address] [place], [place] [phone] PCP - General Family Medicine 10/31/16 West Meier, RN [address] [place] [address] Technical FellowMachine Tender 01/12/25 Eva Nunez Technical Fellow 04/05/24 07/06/24 [facility] 05/11/24 11/17/24 [employer] [facility] 11/14/24 01/17/25 [employer] 12/08/24 documented as of this encounter
--- OUTSIDE RECORDS SUMMARY | 2025-02-17 13:21 | XMS_ITS | Encounter Summary ---
Author Organization [employer] Address [address] [facility] 7t [place] [address] Care Team Providers Care Team Driver Name Role Phone Umm Coley MD Primary Care Provider + West Meier RN Unavailable [phone] Reason for Visit * Reason Onset Date Comments appt 01/08/2024 Encounter Details Date Type Department Care Team ([facility] st Contact Info) Description 01/08/2024 Telephone [facility] ADULT D[facility]AL [address] [place] [address] Homer Strong, DMD [address] [place] [address] appt Social History Tobacco Use Types Packs/Day [...] Visit [facility] ADULT DENTAL [address] [place] [address] Trino Ruffaris [address] [place] [address] 05/02/2025 10:30 AM EDT Office Visit [facility] MEDICINE [address] [place] [address] Umm Coley MD 230 [place] [address] documented as of this encounter Visit Diagnoses Not on filedocumented in this encounter Additional Health Concerns Assessment Noted Time PHQ-9 Depression Total Score: 21 024 11:31 AM EST documented as of this encounter Care Teams Team Driver Relationship Specialty Start Date End Date Umm Coley MD 230 [place] [address] PCP - General Family Medicine 10/31/16 West Meier, BEBA 505 [place] [address] Cover Making Machine OperatorStorm Chaser 01/12/25 Eva Nunez Cover Making Machine Operator 04/05/24 07/06/24 [facility] 05/11/24 11/17/24 [facility] 11/14/24 01/17/25 [employer] 12/08/24 documented as of this encounter
--- OUTSIDE RECORDS SUMMARY | 2025-02-17 13:21 | XMS_ITS | Encounter Summary ---
Author Organization [employer] Address [address] [facility] 7t [place] [address] Care Team Providers Care Senior Cisco Network Engineer Name Role Phone Umm Coley MD Primary Care Provider + West Meier RN Unavailable [phone] Reason for Visit * Reason Onset Date Comments Appointment 06/15/2023 Encounter Details Date Type Department Care Team ([facility] st Contact Info) Description 06/15/2023 Telephone [facility] ADULT DENTAL [address] [place] [address] Johnny Gonzalez, DMD [address] [place], [place] [phone] Appointment Social History Tobacco Use Types Packs/Day [...] Description 03/08/2025 10:00 AM EDT Office Visit [facility] ADULT DENTAL [address] [place] [address] Elzbieta, Mariangel [address] [place] [address] 05/02/2025 10:30 AM EDT Office Visit [facility] MEDICINE [address] [place] [address] Umm Coley MD 230 [place] [address] documented as of this encounter Visit Diagnoses Not on filedocumented in this encounter Additional Health Concerns Assessment Noted Time PHQ-9 Depression Total Score: 12 023 1:58 PM EDT documented as of this encounter Care Teams Senior Cisco Network Engineer Relationship Specialty Start Date End Date Umm Coley MD [address] [place] [address] PCP - General Family Medicine 10/31/16 West Meier, RN [address] [place] [address] Microfilm Duplicating Unit SupervisorPulp Grinder 01/12/25 Eva Nunez Microfilm Duplicating Unit Supervisor 04/05/24 07/06/24 [facility] 05/11/24 11/17/24 [facility] 11/14/24 01/17/25 [employer] 12/08/24 documented as of this encounter
--- OUTSIDE RECORDS SUMMARY | 2025-02-17 13:21 | XMS_ITS | Encounter Summary ---
Author Organization [employer] Address [address] [facility] 7t [place] [address] Care Team Providers Care Tub Puller Name Role Phone Umm Coley MD Primary Care Provider + West Meier RN Unavailable [phone] Reason for Visit * Reason Comments Med Change Request Encounter Details Date Type Department Care Team ([facility] Contact Info) Description 03/20/2023 Refill [facility] ADULT DENTAL 230 [place] [address] Johnny Gonzalez, WILIAN 505 [place] [address] Social History Tobacco Use Types Packs/Day Years [...] EDT Office Visit [facility] ADULT DENTAL [address] [place], [place] [phone] Trino Ruffaris [address] [place] [address] 05/02/2025 10:30 AM EDT Office Visit [facility] MEDICINE [address] [place], [place] [phone] Umm Coley MD [address] [place] [address] documented as of this encounter Visit Diagnoses Not on filedocumented in this encounter Care Teams Tub Puller Relationship Specialty Start Date End Date Umm Coley MD 230 [place] [address] PCP - General Family Medicine 10/31/16 West Meier, BEBA 505 [place] [address] Head PorterDrip Pumper 01/12/25 Eva Nunez Head Porter 04/05/24 07/06/24 [facility] 05/11/24 11/17/24 [facility] 11/14/24 01/17/25 [employer] 12/08/24 documented as of this encounter
--- OUTSIDE RECORDS SUMMARY | 2025-02-17 13:21 | XMS_ITS | Encounter Summary ---
Author Organization [employer] Address [address] [facility] 7t [place] [address] Care Team Providers Care Gate Operator Name Role Phone Umm Coley MD Primary Care Provider + West Meier RN Unavailable [phone] Reason for Visit * Reason Onset Date Comments pre med prior to dental treatment 08/23/2024 Encounter Details Date Type Department Care Team (Late st Contact Info) Description 08/23/2024 Telephone [facility] ADULT DENTAL [address] [place] [address] Johnny Gonzalez, DMD [address] [place] [address] pre med prior to dental treatment Social [...] also spoke with Nina in the front end developer javascript html css with a run through of what was happening with the patient and she stated she would also send something to provider for clarificationDR documented in this encounter Plan of Treatment Upcoming Encounters Date Type Department Care Team (Late st Contact Info) Description 03/08/2025 10:00 AM EDT Office Visit [facility] ADULT DENTAL 230 [place] [address] Elzbieta Mariangel 230 [place] [address] 05/02/2025 10:30 AM EDT Office Visit [facility] MEDICINE 230 [place], [place] [phone] Umm Coley MD [address] [place] [address] documented as of this encounter Visit Diagnoses Not on filedocumented in this encounter Additional Health Concerns Assessment Noted Time PHQ-9 Depression Total Score: 10 024 9:17 AM EDT documented as of this encounter Care Teams Gate Operator Relationship Specialty Start Date End Date Umm Coley MD [address] [place] [address] PCP - General Family Medicine 10/31/16 West Meier, RN [address] [place] [address] Insulation CutterHospice Community Liaison 01/12/25 [facility] 05/11/24 11/17/24 [facility] 11/14/24 01/17/25 [email or web address] 12/08/24 documented as of this encounter
--- OUTSIDE RECORDS SUMMARY | 2025-02-17 13:21 | XMS_ITS | Encounter Summary ---
Author Organization [employer] [facility] Address [address] [place] [address] 7t [place] [address] Care Team Providers Care Wiping Rag Washer Name Role Phone Umm Coley MD Primary Care Provider + West Meier RN Unavailable [phone] Encounter Details Date Type Department Care Team (Late st Contact Info) Description 09/24/2022 Abstract [facility] ADULT DENTAL [address] [place] [address] Dental, Provider, DDS Social History Tobacco Use [...] [facility] ADULT DENTAL [address] [place] [address] Mariangel Ruff [address] [place] [address] 05/02/2025 10:30 AM EDT Office Visit [facility] MEDICINE [address] [place] [address] Umm Coley MD 230 [place] [address] documented as of this encounter Procedures Procedure [...] on filedocumented in this encounter Care Teams Wiping Rag Washer Relationship Specialty Start Date End Date Umm Coley MD [address] [place] [address] PCP - General Family Medicine 10/31/16 West Meier, BEBA [address] [place] [address] Psychologist SocialSurvey Field Technician 01/12/25 Eva Nunez Psychologist Social 04/05/24 07/06/24 [facility] 05/11/24 11/17/24 [facility] 11/14/24 01/17/25 [employer] 12/08/24 documented as of this encounter
--- OUTSIDE RECORDS SUMMARY | 2025-02-17 13:21 | XMS_ITS | Encounter Summary ---
Author Organization [employer] [facility] Address [address] [facility] 7t [place] [address] Care Team Providers Care Staff Radiologist Name Role Phone Umm Coley MD Primary Care Provider + West Meier RN Unavailable [phone] Reason for Visit * Reason Comments Med Refill Encounter Details Date Type Department Care Team (Late st Contact Info) Description 02/05/2023 Refill [facility] MED[facility]INE [address] [place] [address] Umm Coley MD 230 [place] [address] Arthritis of knee Social History Tobacco Use [...] 03/08/2025 10:00 AM EDT Office Visit [facility] ADULT DENTAL [address] [place], [place] [phone] Mariangel Ruff [address] [place] [address] 05/02/2025 10:30 AM EDT Office Visit [facility] [address] [place], [place] [phone] Umm Coley MD 230 [place] [address] documented as of this encounter Visit Diagnoses Diagnosis Arthritis of knee Unspecified arthropathy, lower leg documented in this encounter Care Teams Staff Radiologist Relationship Specialty Start Date End Date Umm Coley MD [address] [place] [address] PCP - General Family Medicine 10/31/16 West Meier RN 505 [place] [address] Jumpbasting Facing BasterHose Finisher 01/12/25 Eva Nunez Jumpbasting Facing Baster 04/05/24 07/06/24 [facility] 05/11/24 11/17/24 [facility] 11/14/24 01/17/25 [employer] 12/08/24 documented as of this encounter
--- OUTSIDE RECORDS SUMMARY | 2025-02-17 13:21 | XMS_ITS | Encounter Summary ---
Author Organization [employer] Address [address] [facility] 7t [place] [address] Care Team Providers Care Engine Turner Name Role Phone Umm Coley MD Primary Care Provider + West Meier RN Unavailable [phone] Encounter Details Date Type Department Care Team ([facility] st Contact Info) Description 08/23/2024 Orders Only [facility] ADULT DENTAL [address] [place], [place] [phone] Johnny Gonzalez, DMD 505 [place] [address] Social History Tobacco Use Types Packs/Day Years [...] Visit [facility] ADULT DENTAL [address] [place] [address] Elzbieta, Mariangel 230 [place] [address] 05/02/2025 10:30 AM EDT Office Visit [facility] MEDICINE [address] [place] [address] Umm Coley MD [address] [place] [address] documented as of this encounter Visit Diagnoses Not on filedocumented in this encounter Additional Health Concerns Assessment Noted Time PHQ-9 Depression Total Score: 10 024 9:17 AM EDT documented as of this encounter Care Teams Engine Turner Relationship Specialty Start Date End Date Umm Coley MD 230 [place] [address] PCP - General Family Medicine 10/31/16 West Meier, RN [address] [place] [address] Software Developer Mid LevelBrand Strategy Manager 01/12/25 [facility] 05/11/24 11/17/24 Mir [employer] 11/14/24 01/17/25 [employer] 12/08/24 documented as of this encounter
--- OUTSIDE RECORDS SUMMARY | 2025-02-17 13:21 | XMS_ITS | Encounter Summary ---
Author Organization [employer] [facility] Address [address] [facility] 7t [place] [address] Care Team Providers Care Game Designer Name Role Phone Umm Coley MD Primary Care Provider + West Meier RN Unavailable [phone] Reason for Visit * Reason Comments Med Refill Encounter Details Date Type Department Care Team ([facility] st Contact Info) Description 05/21/2023 Refill [facility] MEDICINE 230 [place], [place] [phone] Umm Coley MD 230 [place], [place] [phone] Arthritis of knee Social History Tobacco Use [...] [facility] ADULT DENTAL 230 [place], [place] [phone] Mariangel Ruff [address] [place] [address] 05/02/2025 10:30 AM EDT Office Visit [facility] MEDICINE [address] [place] [address] Umm Coley MD [address] [place] [address] documented as of this encounter Visit Diagnoses Diagnosis Arthritis of knee Unspecified arthropathy, lower leg documented in this encounter Additional Health Concerns Assessment Noted Time PHQ-9 Depression Total Score: 12 023 1:58 PM EDT documented as of this encounter Care Teams Game Designer Relationship Specialty Start Date End Date Umm Coley MD [address] [place] [address] PCP - General Family Medicine 10/31/16 West Meier, BEBA 505 [place] [address] Biostatistics ProfessorDriving Instructor 01/12/25 Eva Nunez Biostatistics Professor 04/05/24 07/06/24 [facility] 05/11/24 11/17/24 [facility] 11/14/24 01/17/25 [employer] 12/08/24 documented as of this encounter
--- OUTSIDE RECORDS SUMMARY | 2025-02-17 13:21 | XMS_ITS | Encounter Summary ---
Author Organization [employer] [facility] Address [address] [place] [address] 7t [place] [address] Care Team Providers Care Senior National Account Manager Name Role Phone Umm Coley MD Primary Care Provider + West Meier RN Unavailable [phone] Encounter Details Date Type Department Care Team (Latest Contact Info) Description 11/23/2020 Abstract [facility] Dental, Provider, DDS Social [...] Visit [facility] ADULT DENTAL [address] [place] [address] Elzbieta, Mariangel [address] [place] [address] 05/02/2025 10:30 AM EDT Office Visit [facility] MEDICINE [address] [place] [address] Umm Coley MD [address] [place] [address] documented as of this encounter Visit Diagnoses Not on filedocumented in this encounter Care Teams Senior National Account Manager Relationship Specialty Start Date End Date Umm Coley MD [address] [place] [address] PCP - General Family Medicine 10/31/16 West Meier, BEBA [address] [place] [address] Direct Customer Service RepresentativeFinancial Cost Analyst 01/12/25 Eva Nunez Direct Customer Service Representative 04/05/24 07/06/24 [facility] 05/11/24 11/17/24 [facility] 11/14/24 01/17/25 [employer] 12/08/24 documented as of this encounter
--- OUTSIDE RECORDS SUMMARY | 2025-02-17 13:21 | XMS_ITS | Encounter Summary ---
Author Organization [employer] Address [address] [facility] 7t [place] [address] Care Team Providers Care Housing Assistant Name Role Phone Umm Coley MD Primary Care Provider + West Meier RN Unavailable [phone] Reason for Visit * Reason Comments Med Change Request Encounter Details Date Type Department Care Team ([facility] Contact Info) Description 03/20/2023 Refill [facility] ADULT DENTAL [address] [place] [address] Johnny Gonzalez DMD 505 [place] [address] Social History Tobacco Use Types Packs/Day Years [...] Description 03/08/2025 10:00 AM EDT Office Visit [facility] ADULT DENTAL [address] [place], [place] [phone] Trino Ruffaris [address] [place] [address] 05/02/2025 10:30 AM EDT Office Visit [facility] MEDICINE 230 [place], [place] [phone] Umm Coley MD [address] [place] [address] documented as of this encounter Visit Diagnoses Not on filedocumented in this encounter Care Teams Housing Assistant Relationship Specialty Start Date End Date Umm Coley MD 230 [place] [address] PCP - General Family Medicine 10/31/16 West Meier, BEBA [address] [place] [address] Offal TrimmerFailure Analysis Engineer 01/12/25 Eva Nunez Offal Trimmer 04/05/24 07/06/24 [facility] 05/11/24 11/17/24 [facility] 11/14/24 01/17/25 [employer] 12/08/24 documented as of this encounter
--- OUTSIDE RECORDS SUMMARY | 2025-02-17 13:21 | XMS_ITS | Clinical Summary ---
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 Diomedes Shultz Date of Service: 12/23/24 Procedure(s): XR shoulder RT min 2V Accession Number(s): [id number] cc: Diomedes Shultz; Shalonda Coley MD EXAMINATION: [...] Gan MD Signed By: <Electronically signed by tSeven Gary MDin OV> 12/23/24 1540 DD/ 1509 TD/TT: 12/23/24 1533 Sonar Watchstander: [facility] External Provider IMG XR PROCEDURES Final Result * XR Hips Bilateral with Pelvis 1 view (12/23/2024 2:57 PM EST) Anatomical Region Laterality Modality Lower Extremities, Hip Bilateral Radiograp hic Imaging 12/23/2024 2:57 PM EST Narrative 12/23/2024 3:45 PM EST ? [facility] ?[address] ?[place] [address] ?XRay Report ? Signed ? Patient: Myles,Diana L ?MR#: [id number] ?? 8 ? : 1965 ?Acct:[id number] ? Age/Sex: 59 / F ?ADM Date: 12/23/24 ? Loc: HO.ED ? Attending Dr: ? Ordering Physician: Diomedes Shultz ?? Date of Service: 12/23/24 ?? Procedure(s): XR hip BI w PEL1V ?? Accession Number(s): [id number] ? cc: Diomedes Shultz; Shalonda Coley MD [...] DD/ 1457 ? TD/TT: 12/23/24 1533 ? Sonar Watchstander: ? Procedure Note Chin Diana - 12/23/2024 [place] [address] [place] [address] XRay Report Signed Patient: Diana Myles LMR#: [id number] 8 : 1965Acct:[id number] Age/Sex: 59 / FADM Date: 12/23/24 Loc: HO.ED Attending Dr: Ordering Physician: Diomedes Shultz Date of Service: 12/23/24 Procedure(s): XR hip BI w PEL1V Accession Number(s): [id number] cc: Diomedes Shultz; Shalonda Coley MD EXAMINATION: [...] 12/23/24 1543 DD/ 1457 TD/TT: 12/23/24 1533 Sonar Watchstander: [facility] External Provider IMG XR PROCEDURES Final Result * XR Knee 4+ Views Right (12/23/2024 2:57 PM EST) Anatomical Region Laterality Modality Lower Extremities, Knee Right Radiogra [facility] Imaging 12/23/2024 2:57 PM EST Narrative 12/23/2024 3:44 PM EST ? [facility] ?[address] ?[place] [address] ?XRay Report ? Signed ? Patient: Myles,Diana L ?MR#: [id number] ?? 8 ? : 1965 ?Acct:[id number] ? Age/Sex: 59 / F ?ADM Date: 02/21/25 ? Loc: HO.ED ? Attending Dr: ? Ordering Physician: Diomedes Shultz ?? Date of Service: 12/23/24 ?? Procedure(s): XR knee RT 4V ?? Accession Number(s): [id number] ? cc: Diomedes Shultz; Shalonda Coley MD [...] DD/ 1457 ? TD/TT: 12/23/24 1533 ? Sonar Watchstander: ? Procedure Note Adalgisa, Image - 12/23/2024 [place] [address] XRay Report Signed Patient: Diana Myles LMR#: [id number] 8 : 1965Acct:[id number] Age/Sex: 59 / FADM Date: 12/23/24 Loc: HO.ED Attending Dr: Ordering Physician: Diomedes Shultz Date of Service: 12/23/24 Procedure(s): XR knee RT 4V Accession Number(s): [id number] cc: Diomedes Shultz; Shalonda Coley MD EXAMINATION: [...] 12/23/24 1541 DD/ 1457 TD/TT: 12/23/24 1533 Sonar Watchstander: us [facility] External Provider IMG XR PROCEDURES Final Result * MR Knee w/o Contrast Left (12/06/2024 6:06 PM EST) Anatomical Region Laterality Modality Magnetic Resonan ce 12/06/2024 6:06 PM EST Narrative 12/08/2024 8:31 AM EST ? [facility] ?[address] ?[place] [address] ? Magnetic Resonance Report ? Signed ? Patient: Myles,Diana L ?MR#: [id number] ?? 8 ? : 1965 ?Acct:[id number] ? Age/Sex: 59 / F ?ADM Date: 12/06/24 ? Loc: HO.MRI ? Attending Dr: Denilson Forman PA-C ? Ordering Physician: Denilson Forman PA-C ?? Date of Service: 12/06/24 ?? Procedure(s): MR knee LT wo con ?? Accession Number(s): [id number] ? cc: Shalonda Coley MD; Denilson Forman [...] ? DD/ 05 ? TD/TT: 12/06/241816 ? Sonar Watchstander: ? Procedure Note Donotuseinterpreter, Image - 12/08/2024 [place] [address] Magnetic Resonance Report Signed Patient: Diana Myles LMR#: [id number] 8 : 1965Acct:[id number] Age/Sex: 59 / FADM Date: 12/06/24 Loc: HO.MRI Attending Dr: Denilson Forman PA-C Ordering Physician: Denilson Forman PA-C Date of Service: 12/06/24 Procedure(s): MR knee LT wo con Accession Number(s): [id number] cc: Shalonda Coley MD; Denilson Forman PA-C [...] 12/08/24 0829 DD/ 1806 TD/TT: 12/06/24 1817 Sonar Watchstander: [facility] External Provider IMG MRI PROCEDURES Final Result * BI Mammogram Screening Tomosynthesis Bilateral (11/29/2024 8:45 AM EST) Anatomical Region Laterality Modality Breast Bilateral Mammography 11/29/2024 8:45 AM EST Narrative 12/07/2024 3:35 PM EST ? [facility] ? [address] ?[place] [address] ? Mammography Report ? Signed ? Patient: Myles,Diana L ?MR#: [id number] ?? 8 ? : 1965 ?Acct:[id number] ? Age/Sex: 59 / F ?ADM Date: 01/28/25 ? Loc: HO.MAMMO ? Attending Dr: Shalonda Coley MD ? Ordering Physician: Shalonda Coley MD ?Results: 2Be ?? nign Findings ? Date of Service: 11/29/24 ?Follow Up: 1 Year From Orig ?? inal Mammogram ? Procedure(s): MM tomosynthesis screening BI ?? Accession Number(s): [id number] ? cc: Shalonda Coley MD ? EXAMINATION: [...] DD/ 0845 ? TD/TT: 11/29/24 0915 ? Sonar Watchstander: ? Procedure Note Donmiguelter, Image - 12/07/2024 [facility] [address] [place] [address] Mammography Report Signed Patient: Diana Myles LMR#: [id number] 8 : 1965Acct:[id number] Age/Sex: 59 / FADM Date: 11/29/24 Loc: HO.MAMMO Attending Dr: Shalonda Coley MD Ordering Physician: Shalonda Coley MDResults: 2Be nign Findings Date of Service: 11/29/24Follow Up: 1 Year From Orig ina Mammogram Procedure(s): MM tomosynthesis screening BI Accession Number(s): [id number] cc: Shalonda Coley MD EXAMINATION: MM SCREENING [...] 12/07/24 1532 DD/ 0845 TD/TT: 11/29/24 0915 Sonar Watchstander: us Shalonda Coley MD IMG BI PROCEDURES Edited Result - Final * (ABNORMAL) Hm Colonoscopy (07/30/2023) Colonoscopy Abnormal( A) Normal [facility] Comment:SSL polyp us Shalonda Coley MD HEALTH MAINTENANCE Final Result [facility] [address] [place] [phone] * Thinprep PAP and HPV nRNA E6/E7 (10/08/2022 9:30 AM EST) Clinical Information: None given [employer] [facility] LMP: NONE GIVEN [employer] [facility] Prev. PAP: NONE GIVEN [employer] Prev. BX: NONE GIVEN [employer] SOURCE: None given [employer] Statement Of Adequacy: SATISFACTORY FOR EVALUATION Age and/or menstrual status not provided [employer] [facility] Interpretation/Re sult: [employer] [facility] Comment: Negative for intraepithelial lesion or malignancy. Atrophic pattern; predominantly parabasal cells Manager Rfid: [employer] [facility] Comment: DMM, CT(ASCP) CT screening location: [address] ??[address] Review Manager Rfid: [employer] Diagnost Comment: MAA, CT(ASCP) CT screening location: [address] ??[address] (Always Message) [facility] [employer] Comment: EXPLANATORY NOTE: The Pap is a [...] HPV nRNA E6/E7 Not Detected Not Detected [email or web address] Comment: Methodology: Civil Structural Engineer-Mediated Amplification This assay detects E6/E7 viral messenger RNA (mRNA) from 14 high-risk HPV types (16,18,31,33,35,39,45,51,52,56,58,59,66,68). Cervical sources are required for HPV testing. If a vaginal source from a patient who has had a total hysterectomy with removal of cervix was submitted, please contact the testing laboratory for alternative testing options. For additional information, please refer to http://education.[employer]/faq/ICF816s0 (This link if provided for information/ educational purposes only.) 10/08/2022 9:30 AM EST 10/10/2022 1:07 AM EST Narrative [facility] - 10/14/2022 7:08 PM EST FASTING: UNKNOWN Shauna Matamoros [facility] PATHOLOGY ORDERABLES Final Result [facility] [address], [place] [address] [employer] [facility] [address], [facility] [place] [address] * HIV AB/AG (04/30/2022 11:28 AM EDT) [...] detection of this assay. ?? The [employer] Admin HIV Ag/Ab Combo assay result and supplemental [...] Final Result [facility] [address] from Last 3 Months or Most Recently Relevant to Health Maintenance Insurance Deporvillage C3 Deporvillage C3 [facility] STAND ADULT Care Teams Card Grinder Helper Relationship Specialty Start Date End Date Shalonda Coley MD [address] [place] [address] PCP - General Family Medicine 10/31/16 [place], BEBA [address] [place] [address] Body SanderStudent Teaching Coordinator 01/12/25
--- OUTSIDE RECORDS SUMMARY | 2025-02-17 13:21 | XMS_ITS | Encounter Summary ---
Author Organization [employer] Address 75 [facility] 7t [place] [address] Care Team Providers Care Emergency Registrar Name Role Phone Umm Coley MD Primary Care Provider + [place] RN Unavailable [phone] Reason for Visit * Reason Onset Date Comments Appointment 03/17/2023 Encounter Details Date Type Department Care Team ([facility] st Contact Info) Description 03/17/2023 Telephone [facility] ADULT DENTAL [address] [place] [address] Johnny Gonzalez, WILIAN [address] [place], [place] [phone] Appointment Social History Tobacco Use Types Packs/Day [...] 10:00 AM EDT Office Visit [facility] ADULT DENTAL [address] [place] [address] ElzbietaTrinoMariangel [address] [place] [address] 05/02/2025 10:30 AM EDT Office Visit [facility] MEDICINE [address] [place] [address] Umm Coley MD [address] [place] [address] documented as of this encounter Visit Diagnoses Not on filedocumented in this encounter Care Teams Emergency Registrar Relationship Specialty Start Date End Date Umm Coley MD [address] [place] [address] PCP - General Family Medicine 10/31/16 [place], RN [address] [place] [address] Research Quality Assurance SpecialistMetal Sprayer Machined Parts 01/12/25 Eva Nunez Research Quality Assurance Specialist 04/05/24 07/06/24 [facility] 05/11/24 11/17/24 [facility] 11/14/24 01/17/25 [employer] 12/08/24 documented as of this encounter
--- OUTSIDE RECORDS SUMMARY | 2025-02-17 13:21 | XMS_ITS | Encounter Summary ---
Author Organization [employer] Address 75 [facility] 7t [place] [address] Care Team Providers Care Powder Truck Driver Name Role Phone Umm Coley MD Primary Care Provider + [place] Me[place] RN Unavailable [phone] Encounter Details Date Type Department Care Team (Late st Contact Info) Description 02/15/2025 Orders Only [facility] External Provider, [facility] Social History Tobacco Use Types Packs/Day [...] 10:00 AM EDT Office Visit [facility] ADULT DENTAL [address] [place] [address] Elzbieta Mariangel [address] [place] [address] 05/02/2025 10:30 AM EDT Office Visit [facility] MEDICINE [address] [place] [address] Umm Coley MD [address] [place] [address] documented as of this encounter Procedures Procedure [...] Surgeons ? [address] ?[place] [address] ?XRay Report ? Signed ? Patient: Myles,Diana L ?MR#: [id number] ?? 8 ? : 1965 ?Acct:[id number] ? Age/Sex: 60 / F ?ADM Date: 04/16/25 ? Loc: HO.HOSX ? Attending Dr: Zhou PALENCIA ? Ordering Physician: Zhou Sosa ?? Date of Service: 02/15/25 ?? Procedure(s): XR wrist RT min 3V ?? Accession Number(s): [id number] ? cc: Zhou Sosa; Umm Coley MD [...] DD/ 1340 ? TD/TT: 02/15/25 1345 ? Continuing Education Dean: ? Procedure Note Chin Diana - 02/16/2025 [facility] [address] [place] [address] [address] [place] [address] XRay Report Signed Patient: Diana Myles LMR#: [id number] 8 : 1965Acct:[id number] Age/Sex: 60 / FADM Date: 02/15/25 Loc: HO.HOSX Attending Dr: Zhou PALENCIA Ordering Physician: Zhou Sosa Date of Service: 02/15/25 Procedure(s): XR wrist RT min 3V Accession Number(s): [id number] cc: Zhou Sosa; Umm Coley MD EXAMINATION: [...] 02/16/25 0921 DD/ 1340 TD/TT: 02/15/25 1345 Continuing Education Dean: [facility] External Provider IMG XR PROCEDURES Final Result documented in this encounter Visit Diagnoses Not on filedocumented in this encounter Additional Health Concerns Assessment Noted Time PHQ-9 Depression Total Score: 10 024 9:17 AM EDT documented as of this encounter Care Teams Powder Truck Driver Relationship Specialty Start Date End Date Umm Coley MD [address] [place] [address] PCP - General Family Medicine 10/31/16 [place], BEBA [address] [place] [address] Manager ShellBmw Sales Consultant 01/12/25 documented as of this encounter
--- OUTSIDE RECORDS SUMMARY | 2025-02-17 13:21 | XMS_ITS | Encounter Summary ---
Author Organization [employer] Address 75 [facility] 7t [place] [address] Care Team Providers Care Gunstock Spray Unit Feeder Name Role Phone Umm Coley MD Primary Care Provider + [place] RN Unavailable [phone] Reason for Visit * Reason Onset Date Comments Appointment 02/24/2023 Encounter Details Date Type Department Care Team ([facility] st Contact Info) Description 02/24/2023 Telephone [facility] ADULT DENTAL [address] [place] [address] Johnny Gonzalez, WILIAN [address] [place], [place] [phone] Appointment Social History Tobacco Use Types Packs/Day [...] Miscellaneous Notes * Telephone Encounter - Makayla Whlaen - 02/24/2023 8:23 AM EDT Diana Myles [...] [facility] ADULT DENTAL [address] [place] [address] Elzbieta, Mariangel [address] [place] [address] 05/02/2025 10:30 AM EDT Office Visit [facility] MEDICINE [address] [place] [address] Umm Coley MD [address] [place] [address] documented as of this encounter Visit Diagnoses Not on filedocumented in this encounter Care Teams Gunstock Spray Unit Feeder Relationship Specialty Start Date End Date Umm Coley MD [address] [place] [address] PCP - General Family Medicine 10/31/16 [place], RN [address] [place] [address] Gravity Prospecting OperatorCollar Trimmer 01/12/25 Eva Nunez Gravity Prospecting Operator 04/05/24 07/06/24 [facility] 05/11/24 11/17/24 [facility] 11/14/24 01/17/25 [employer] 12/08/24 documented as of this encounter
--- OUTSIDE RECORDS SUMMARY | 2025-02-17 13:21 | XMS_ITS | Encounter Summary ---
Author Organization [employer] [facility] Address [address] [place] [address] 7t [place] [address] Care Team Providers Care Entry Operator Name Role Phone Umm Coley MD Primary Care Provider + [place] RN Unavailable Encounter Details Date Type Department Care Team (Latest Contact Info) Description 11/14/2019 Abstract [facility] CONVERSIONS Dental, Provider, DDS Social History [...] [facility] ADULT DENTAL [address] [place] [address] Elzbieta, Mariangel [address] [place] [address] 05/02/2025 10:30 AM EDT Office Visit [facility] MEDICINE [address] [place] [address] Umm Coley MD [address] [place] [address] documented as of this encounter Visit Diagnoses Not on filedocumented in this encounter Care Teams Entry Operator Relationship Specialty Start Date End Date Umm Coley MD [address] [place] [address] PCP - General Family Medicine 10/31/16 [place], BEBA [address] [place] [address] Ruby Software DeveloperLead Miner Blasting 01/12/25 Eva Nunez Ruby Software Developer 04/05/24 07/06/24 [facility] 05/11/24 11/17/24 [employer] [facility] 11/14/24 01/17/25 [employer] 12/08/24 documented as of this encounter
--- OUTSIDE RECORDS SUMMARY | 2025-02-17 13:21 | XMS_ITS | Encounter Summary ---
Author Organization [employer] [facility] Address [address] [place] [address] 7t [place] [address] Care Team Providers Care Specialist Field Engineer Name Role Phone Umm Coley MD Primary Care Provider + [place] RN Unavailable [phone] Encounter Details Date Type Department Care Team (Latest Contact Info) Description 03/13/2022 Abstract [facility] CONVERSIONS Dental, Provider, DDS Social History [...] Description 03/08/2025 10:00 AM EDT Office Visit [facility] ADULT DENTAL [address] [place] [address] Elzbieta, Mariangel [address] [place] [address] 05/02/2025 10:30 AM EDT Office Visit [facility] MEDICINE [address] [place] [address] Umm Coley MD [address] [place] [address] documented as of this encounter Visit Diagnoses Not on filedocumented in this encounter Care Teams Specialist Field Engineer Relationship Specialty Start Date End Date Umm Coley MD [address] [place] [address] PCP - General Family Medicine 10/31/16 [place], BEBA [address] [place] [address] Manager Of PurchasingSlag Wheeler 01/12/25 Eva Nunez Manager Of Purchasing 04/05/24 07/06/24 [facility] 05/11/24 11/17/24 [facility] 11/14/24 01/17/25 [employer] 12/08/24 documented as of this encounter
--- OUTSIDE RECORDS SUMMARY | 2025-02-17 13:21 | XMS_ITS | Encounter Summary ---
Author Organization [employer] [facility] Address [address] [place] [address] 7t [place] [address] Care Team Providers Care Soap Boiler Name Role Phone Umm Coley MD Primary Care Provider + [place] Me[place] RN Unavailable [phone] Reason for Visit * Reason Comments Med Refill Encounter Details Date Type Department Care Team (Late Contact Info) Description 08/01/2023 Refill [facility] MEDICINE [address] [place] [address] Umm Coley MD [address] [place] [address] Social History Tobacco Use Types Packs/Day Years [...] [facility] [address] [place] [address] Mariangel Ruff [address] [place] [address] 05/02/2025 10:30 AM EDT Office Visit [facility] MEDICINE [address] [place], [place] [phone] Umm Coley MD [address] [place] [address] documented as of this encounter Visit Diagnoses Not on filedocumented in this encounter Additional Health Concerns Assessment Noted Time PHQ-9 Depression Total Score: 12 023 1:58 PM EDT documented as of this encounter Care Teams Soap Boiler Relationship Specialty Start Date End Date Umm Coley MD [address] [place] [address] PCP - General Family Medicine 10/31/16 West Meier RN [address] [place] [address] Pull Socket AssemblerHealth Aide 01/12/25 Eva Nunez Pull Socket Assembler 04/05/24 07/06/24 [facility] 05/11/24 11/17/24 [facility] 11/14/24 01/17/25 [employer] 12/08/24 documented as of this encounter
--- OUTSIDE RECORDS SUMMARY | 2025-02-17 13:21 | XMS_ITS | Encounter Summary ---
Author Organization [employer] [facility] Address [address] [place] [address] 7t [place] [address] Care Team Providers Care Funeral Service Manager Name Role Phone Umm Coley MD Primary Care Provider + West Meier RN Unavailable [phone] Encounter Details Date Type Department Care Team (Latest Contact Info) Description 09/16/2022 Abstract [facility] CONVERSIONS Dental, Provider, DDS [...] Office Visit [facility] ADULT DENTAL [address] [place] [address] Elzbieta, Mariangel [address] [place] [address] 05/02/2025 10:30 AM EDT Office Visit [facility] MEDICINE [address] [place] [address] Umm Coley MD [address] [place] [address] documented as of this encounter Visit Diagnoses Not on filedocumented in this encounter Care Teams Funeral Service Manager Relationship Specialty Start Date End Date Umm Coley MD [address] [place] [address] PCP - General Family Medicine 10/31/16 [place] Me[place], BEBA [address] [place] [address] Platform SupervisorHot Knife Foxing Cutter 01/12/25 Eva Nunez Platform Supervisor 04/05/24 07/06/24 [facility] 05/11/24 11/17/24 [employer] [facility] 11/14/24 01/17/25 [employer] 12/08/24 documented as of this encounter
--- OUTSIDE RECORDS SUMMARY | 2025-02-17 13:21 | XMS_ITS | Encounter Summary ---
Author Organization [facility] Address [address] [place] [address] [address] [place] [address] Care Team Providers Care Editor Publications Name Role Phone Umm Coley MD Primary Care Provider + West Meier RN Unavailable [phone] Reason for Visit * Reason Comments Med Refill Encounter Details Date Type Department Care Team (Late Contact Info) Description 06/10/[address] [facility] MEDICINE [address] [place] [address] Yenny Morris MD [address] [place] [address] Rash Social History Tobacco Use Types Packs/Day [...] AM EDT Office Visit [facility] ADULT DENTAL [address] [place] [address] Mariangel Ruff [address] [place] [address] 05/02/2025 10:30 AM EDT Office Visit [facility] MEDICINE [address] [place], [place] [phone] Umm Coley MD [address] [place] [address] documented as of this encounter Visit Diagnoses Diagnosis Rash Rash and other nonspecific skin eruption documented in this encounter Additional Health Concerns Assessment Noted Time PHQ-9 Depression Total Score: 12 023 1:58 PM EDT documented as of this encounter Care Teams Editor Publications Relationship Specialty Start Date End Date Umm oCley MD [address] [place] [address] PCP - General Family Medicine 10/31/16 West Meier, BEBA [address] [place] [id number] Packing SupervisorCarpet Weaver 01/12/25 Eva Nunez Packing Supervisor 04/05/24 07/06/24 [facility] 05/11/24 11/17/24 [facility] 11/14/24 01/17/25 [employer] 12/08/24 documented as of this encounter
[2025-02-17 13:31] VITALS: BP 120/78; PULSE 81; O2SAT 97; BMI 21.5
--- NOTE | 2025-02-17 13:31 | A.OFFVIS_ITS ---
Vital Signs 02/17/25 13:31 Height 5 ft Weight 110 lb BMI 21.5 BP 120/78 Blood Pressure Location Lt brachial Position Sitting Pulse 81 Pulse Source Pulse Oximeter Pulse Oximetry (%) 97 Oxygen Delivery Method Room Air Intake Visit Reasons: Follow up News Specialist Required: Yes News Specialist Services: News Specialist Offered & Declined Accompanied by: Daughter Allergies codeine [CODEINE] Allergy (Intermediate, Verified 02/17/25 13:33) DIZZY/NAUSEA, nausea/vomiting escitalopram [From LEXAPRO] Allergy (Intermediate, Verified 02/17/25 13:33) ? NAUSEA meperidine [MEPERIDINE] Allergy (Intermediate, Verified 02/17/25 13:33) NAUSEA morphine [MORPHINE] Allergy (Intermediate, Verified 02/17/25 13:33) PALPITATIONS, palpitation oxycodone [OXYCODONE] Allergy (Intermediate, Verified 02/17/25 13:33) PALPATATIONS, palpitations tramadol Allergy (Unknown, Verified 02/17/25 13:33) dizziness, nausea HPI Comments Details: 60-yr-old female presents for f/u visit. Accompanied by her FUR CLIPPER. Patient reports that on 12/23/2024, she suffered a slip and fall on ice, resulting in a right distal radius fracture, for which she underwent ORIF on 01/02/[address] Hopkins at [facility] ortho. She states she is recovering well, she does still have right wrist pain, using ibuprofen as needed. She has started OT. She is wearing a right wrist placed for support. After last visit, she did undergo a 06/28/2024 RUE EMG/NCS, which did not show any evidence of carpal tunnel syndrome or other neuropathic/myopathic process. Patient actually forgot that she would have this done. She continues to have migraine attacks are better, now about 1-2 x's per week. Using sumatriptan as needed we will effect. States her sleep is a bit disrupted by her right hand wrist pain. She continues to be followed by pain management and Orthopedics for knee pain and shoulder pain. She is compliant w/ iron supplement, amitriptyline- but is unclear if there is benefit- she does not know her medications well. Patient states she no longer has a home nurse to help with her medications. However she is managing her own medications now, though still does not know all of their names. 01/31/2025 lab work: CBC within normal limits Vitamin B12, methylmalonic acid vitamin-D, folate, TSH within normal limits Iron studies including ferritin are now within normal limits. Ferritin is 161. Lipid panel shows mildly elevated total cholesterol 213, LDL 128. With normal triglycerides 69, HDL 72. Homocystine just mildly elevated at 11.1. Amitriptyline level less than 5 PFSH Medical History (Updated 02/17/25 @ 15:38 by REINA Barrios) Primary osteoarthritis of right hand Migraine Right shoulder pain Rotator cuff tendinitis Arthritis of right shoulder region Right hand pain Breast cancer, right Status post radiation therapy Anemia Diarrhea Depression Somatization disorder Migraine equivalent syndrome Anxiety Periodontal disease Fibromyalgia Surgical History History of esophagogastroduodenoscopy (EGD) History of lumpectomy Hx of section Hx of shoulder surgery Hx of colonoscopy Family History Mother HTN (hypertension) Sister Breast cancer Bone cancer Colon polyps Sister Osteoporosis Hypercholesteremia Colon polyps Social History Household Members: None Housing: Apartment Are you a primary patient centered care specialist to a significant other at home: No Do you presently have visiting nurse or other home services: No Alcohol intake: never Patient Tobacco Use Status: Former Tobacco user Years Smoked: 3 service: No Current occupational status: disabled 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 Mild finger swelling. Steady gait with cane today. General: patient oriented x3 Cranial nerves: Yes CN's II-XII intact bilaterally Cognition (Neuro): normal cognition Psych Appearance: grossly normal Mental Status: mental status grossly normal Speech and movement: Normal speech and movement present Affect: normal affect Attitude: cooperative Assessment & Plan Assessment & Plan (1) Migraine: Code(s): G43.909 - Migraine, unspecified, not intractable, without status migrainosus Category: Medical Qualifiers: Intractability: not intractable Migraine type: migraine (< 15 days per month) without aura Status migrainosus presence: without status migrainosus Qualified Code(s): G43.009 - Migraine without aura, not intractable, without status migrainosus (2) Bilateral leg paresthesia: Code(s): R20.2 - Paresthesia of skin Category: Medical (3) Leg cramps: Code(s): R25.2 - Cramp and spasm Category: Medical Plan Reviewed labs: Advise recent lipid panel ordered by PCP is slightly elevated, discussed dietary strategies to optimize cholesterol level such as increasing healthy fat intake, increasing fruit and vegetable intake, and increasing physical activity when able. She is not on a statin, we will defer to PCP regarding need to initiate statin therapy. For sleep: May 2023 BLE EMG/NCS- normal. Reviewed labs, iron studies now within normal limits- at therapeutic goal for restless leg type symptoms. May reduce Ferrous sulfate 325mg w/ vit C 500mg from 3 x's per week to once weekly. Continue prn colace 100mg bid. Continue Requip 0.5mg tid. Continue Prazosin. Continue Melatonin 10mg qhs. ? For acute migraine tx: Sumatriptan 100mg tab- at onset of headache, may repeat in 2 hrs PRN; max 2 tabs per day or 4 tabs/week. Advised to take Sumatriptan w/ Naproxen 500mg or ibuprofen. For migraine prevention tx: Continue Amitriptyline 100mg qhs. Discontinue Emgality order- patient never started, in migraine attacks have improved. Additionally, would not start this, as she is recovering from the right wrist fracture. Continue Mirtazapine 45mg qhs- for mood but can reduce migraine as well. Pt states she no longer has a nurse. Tx contraindications- all anti-HTN tx's (candesartan, beta-blockers, CCBs) d/t hypotension f/u in 6 months or sooner prn Coding Level of Care Code Est Pt Level 4 (36770) Diagnoses Migraine without aura and without status migrainosus, not intractable G43.009 Intractability: not intractable Migraine type: migraine (< 15 days per month) without aura Status migrainosus presence: without status migrainosus Bilateral leg paresthesia R20.2 Leg cramps R25.2
== END 2025-02-17 14:19 | disposition home or self-care (01) ==
LOC: HO.HSMS 12:48
PROVIDERS: PCP Internal Medicine; Visit Provider Nurse Practitioner Family
DX: G43.009 Migraine without aura, not intractable, without status migrainosus (principal); R20.2 Paresthesia of skin; R25.2 Cramp and spasm
CPT/HCPCS: 99214

== ENCOUNTER → 2025-02-17 12:48 | Outpatient (BNVA) | payer MEDICAID, SELFPAY | PROVIDERS: PCP Internal Medicine; Visit Provider Nurse Practitioner Family | DX: G43.009 Migraine without aura, not intractable, without status migrainosus (principal); R25.2 Cramp and spasm; R20.2 Paresthesia of skin | CPT/HCPCS: 99212 ==

== ENCOUNTER → 2025-02-28 13:57 | Outpatient (BNVA) | payer MEDICAID, SELFPAY | PROVIDERS: PCP Internal Medicine; Visit Provider Orthopaedic Surgery ==

== ENCOUNTER 2025-03-14 13:45 | Outpatient (REF) | payer MEDICAID, SELFPAY ==
--- NOTE | ~2025-03-14 | XR_ITS ---
CLINICAL HISTORY: M25.531 - Pain in right wrist Right wrist three views Comparison: 02/15/2025 Findings: No acute fracture or dislocation identified. Prior radius fracture is unchanged. Fracture fixation hardware is intact. Prior ulnar styloid fracture is unchanged. Decreased bone density and degenerative change. Impression: No acute bony abnormality This document has been electronically signed by: Manjeet Munoz MD on 03/14/2025 19:13:17
--- OUTSIDE RECORDS SUMMARY | 2025-03-14 15:37 | XMS_ITS | Encounter Summary ---
Author Organization [facility] Address [address] [place] [address] 7t [place] [address] Care Team Providers Care Architecture Drafter Name Role Phone Umm Coley MD Primary Care Provider + West Meier RN Unavailable [phone] Encounter Details Date Type Department Care Team (Latest Contact Info) Description 11/23/2020 Abstract [facility] CONVERSIONS Dental, Provider, DDS [...] Description 03/24/2025 2:00 PM EDT Office Visit [facility] CHC ADULT DENTAL [address] [place] [address] Yovani Fountain 05/02/2025 10:30 AM EDT Office Visit [facility] MEDICINE 230 [place], [place] [phone] Umm Coley MD 230 [place], [place] [phone] documented as of this encounter Visit Diagnoses Not on filedocumented in this encounter Care Teams Architecture Drafter Relationship Specialty Start Date End Date Umm Coley MD 230 [place] [address] PCP - General Family Medicine 10/31/16 West Meier, RN 505 [facility] [place] [address] Head WaitressCrm Specialist 01/12/25 Eva Nunez Head Waitress 04/05/24 07/06/24 [facility] 05/11/24 11/17/24 [facility] 11/14/24 01/17/25 [email or web address] 12/08/24 documented as of this encounter
--- OUTSIDE RECORDS SUMMARY | 2025-03-14 15:37 | XMS_ITS | Encounter Summary ---
Author Organization [employer] Address [address] [facility] 7t [place] [address] Care Team Providers Care Blood Collector Name Role Phone Umm Coley MD Primary Care Provider + West Meier RN Unavailable [phone] Reason for Visit * Reason Comments Med Change Request Encounter Details Date Type Department Care Team ([facility] st Contact Info) Description 03/20/2023 Refill [facility] ADULT DENTAL [address] [place] [address] Jhonny Gonzalez DMD 505 [place] [address] Social History Tobacco Use Types Packs/Day Years [...] Description 03/24/2025 2:00 PM EDT Office Visit [facility] ADULT DENTAL [address] [place] [address] Yovani Fountain 05/02/2025 10:30 AM EDT Office Visit [facility] [address] [place] [address] Umm Coley MD 230 [place] [address] documented as of this encounter Visit Diagnoses Not on filedocumented in this encounter Care Teams Blood Collector Relationship Specialty Start Date End Date Umm Coley MD 230 [place] [address] PCP - General Family Medicine 10/31/16 West Meier, BEBA 505 [place] [address] Surplus Property Disposal AgentSemiconductor Testing Group Leader 01/12/25 Eva Nunez Surplus Property Disposal Agent 04/05/24 07/06/24 [facility] 05/11/24 11/17/24 [facility] 11/14/24 01/17/25 [place] [facility] 12/08/24 documented as of this encounter
--- OUTSIDE RECORDS SUMMARY | 2025-03-14 15:37 | XMS_ITS | Encounter Summary ---
Author Organization [employer] Address [address] [facility] 7t [place] [address] Care Team Providers Care Business Line Controller Name Role Phone Umm Coley MD Primary Care Provider + [place] Meier RN Unavailable Reason for Visit * Reason Onset Date Comments pre med prior to dental treatment 08/23/2024 Encounter Details Date Type Department Care Team ([facility] st Contact Info) Description 08/23/2024 Telephone [facility] CHC ADULT DENTAL [address] [place] [address] Johnny Gonzalez, DMD [address] [place] [address] pre med prior to dental treatment Social [...] spoke with Nina in the front desk coordinator with a run through of what was happening with the patient and she stated she would also send something to provider for clarification documented in this encounter Plan of Treatment Upcoming Encounters Date Type Department Care Team (Late st Contact Info) Description 03/24/2025 2:00 PM EDT Office Visit [facility] ADULT DENTAL [address] [place] [address] Yovani Fountain 05/02/2025 10:30 AM EDT Office Visit [facility] MEDICINE 230 [place] [address] Umm Coley MD 230 [place], [place] [phone] documented as of this encounter Visit Diagnoses Not on filedocumented in this encounter Additional Health Concerns Assessment Noted Time PHQ-9 Depression Total Score: 10 024 9:17 AM EDT documented as of this encounter Care Teams Business Line Controller Relationship Specialty Start Date End Date Umm Coley MD [address] [place], [place] [phone] PCP - General Family Medicine 10/31/16 West Meier, RN 505 [place] [address] Band SawyerWebmethods Consultant 01/12/25 [facility] 05/11/24 11/17/24 [facility] 11/14/24 01/17/25 Reading Room 12/08/24 documented as of this encounter
--- OUTSIDE RECORDS SUMMARY | 2025-03-14 15:37 | XMS_ITS | Encounter Summary ---
Author Organization [employer] Address [address] [facility] 7t [place] [address] Care Team Providers Care Automobile Tire Builder Name Role Phone Umm Coley MD Primary Care Provider + [place] Meier RN Unavailable [phone] Encounter Details Date Type Department Care Team (Late Contact Info) Description 03/05/2023 Orders Only [facility] MEDICINE 230 [place], [place] [phone] Umm Coley MD [address] [place], [place] [phone] Social History Tobacco Use Types Packs/Day Years [...] Description 03/24/2025 2:00 PM EDT Office Visit [facility] CHC ADULT DENTAL [address] [place] [address] Yovani Fountain 05/02/2025 10:30 AM EDT Office Visit [facility] MEDICINE [address] [place] [address] Umm Coley MD [address] [place] [address] documented as of this encounter Visit Diagnoses Not on filedocumented in this encounter Care Teams Automobile Tire Builder Relationship Specialty Start Date End Date Umm Coley MD [address] [place] [address] PCP - General Family Medicine 10/31/16 West Meier RN [address] [place] [address] Laundry TechEnvironmental Attorney 01/12/25 Eva Nunez Laundry Tech 04/05/24 07/06/24 [facility] 05/11/24 11/17/24 [facility] 11/14/24 01/17/25 [employer] 12/08/24 documented as of this encounter
--- OUTSIDE RECORDS SUMMARY | 2025-03-14 15:37 | XMS_ITS | Encounter Summary ---
Author Organization [employer] Address [address] [facility] 7t [place] [address] Care Team Providers Care Input Output Clerk Name Role Phone Umm Coley MD Primary Care Provider + [place] Meier RN Unavailable Encounter Details Date Type Department Care Team (Late st Contact Info) Description 11/03/2022 Orders Only [facility] MEDICINE 230 [place], [place] [phone] Umm Coley MD 230 [place], [place] [phone] Osteopenia after menopause (Primary Dx) Social History [...] EDT Office Visit [facility] CHC ADULT DENTAL [address] [place] [address] Armenleydi Yovani 05/02/2025 10:30 AM EDT Office Visit [facility] MEDICINE 230 [place] [address] Umm Coley MD [address] [place] [address] Scheduled Orders Name Type Priority Associated Diagnoses Orde r Schedule Vitamin D, 25-Hydroxy, Total, Immunoassay Lab Routine Osteopenia after menopause Expected: 11/03/2022 (Approximate), Expires: 11/03/2023 PTH, Intact (ICMA) And Ionized Calcium Lab Routine Osteopenia after menopause Expected: 11/03/2022 (Approximate), Expires: 11/03/2023 documented as of this encounter Visit Diagnoses Diagnosis Osteopenia after menopause- Primary documented in this encounter Care Teams Input Output Clerk Relationship Specialty Start Date End Date Umm Coley MD 230 [place] [address] PCP - General Family Medicine 10/31/16 West Meier, RN 505 [place] [address] Expeller OperatorFuneral Service Licensee 01/12/25 Eva Nunez Expeller Operator 04/05/24 07/06/24 [facility] 05/11/24 11/17/24 [facility] 11/14/24 01/17/25 [employer] 12/08/24 documented as of this encounter
--- OUTSIDE RECORDS SUMMARY | 2025-03-14 15:37 | XMS_ITS | Encounter Summary ---
Author Organization [employer] Address 75 [facility] 7t [place] [address] Care Team Providers Care Licensed Pesticide Applicator Name Role Phone Umm Coley MD Primary Care Provider + West Meier RN Unavailable [phone] Reason for Visit * Reason Onset Date Comments Appointment 06/15/2023 Encounter Details Date Type Department Care Team ([facility] st Contact Info) Description 06/15/2023 Telephone [facility] ADULT DENTAL 230 [place] [address] Johnny Gonzalez, WILIAN 505 [place], [place] [phone] Appointment Social History Tobacco Use Types Packs/Day [...] [facility] 505 [place] [address] Yovani Fountain 05/02/2025 10:30 AM EDT Office Visit [facility] MEDICINE 230 [place] [address] Umm Coley MD [address] [place] [address] documented as of this encounter Visit Diagnoses Not on filedocumented in this encounter Additional Health Concerns Assessment Noted Time PHQ-9 Depression Total Score: 12 023 1:58 PM EDT documented as of this encounter Care Teams Licensed Pesticide Applicator Relationship Specialty Start Date End Date Umm Coley MD [address] [place] [address] PCP - General Family Medicine 10/31/16 West Meier, RN 505 [place] [address] Cost AccountantMarketing Automation Analyst 01/12/25 Eva Nunez Cost Accountant 04/05/24 07/06/24 [facility] 05/11/24 11/17/24 [facility] 11/14/24 01/17/25 [employer] 12/08/24 documented as of this encounter
--- OUTSIDE RECORDS SUMMARY | 2025-03-14 15:37 | XMS_ITS | Encounter Summary ---
Author Organization [email or web address] [facility] Address [address] [place] [address] 7t [place] [address] Care Team Providers Care Straight Knife Cutter Machine Name Role Phone Umm Coley MD Primary Care Provider + West Meier RN Unavailable [phone] Encounter Details Date Type Department Care Team (Latest Contact Info) Description 09/16/2022 Abstract [facility] CONVERSIONS Dental, Provider, DDS Social History [...] Description 03/24/2025 2:00 PM EDT Office Visit [facility] CHC ADULT DENTAL [address] [place] [address] Yovani Fountain 05/02/2025 10:30 AM EDT Office Visit [facility] MEDICINE 230 [place], [place] [phone] Umm Coley MD 230 [place], [place] [phone] documented as of this encounter Visit Diagnoses Not on filedocumented in this encounter Care Teams Straight Knife Cutter Machine Relationship Specialty Start Date End Date Umm Coley MD 230 [place] [address] PCP - General Family Medicine 10/31/16 West Meier, RN 505 [facility] [place] [address] Machine Pecan PickerProduction Team Advisor 01/12/25 Eva Nunez Machine Pecan Picker 04/05/24 07/06/24 [facility] 05/11/24 11/17/24 [facility] 11/14/24 01/17/25 [employer] 12/08/24 documented as of this encounter
--- OUTSIDE RECORDS SUMMARY | 2025-03-14 15:37 | XMS_ITS | Encounter Summary ---
Author Organization [employer] Address [address] [facility] 7t [place] [address] Care Team Providers Care Rail Car Driver Name Role Phone Umm Coley MD Primary Care Provider + West Meier RN Unavailable [phone] Reason for Visit * Reason Onset Date Comments Appointment 02/24/2023 Encounter Details Date Type Department Care Team ([facility] st Contact Info) Description 02/24/2023 Telephone [facility] ADULT DENTAL 230 [place] [address] Johnny Gonzalez, WILIAN [address] [place], [place] [phone] Appointment Social History Tobacco Use Types Packs/Day [...] Description 03/24/2025 2:00 PM EDT Office Visit [facility] CHC ADULT DENTAL 505 [place] [address] Yovani Fountain 05/02/2025 10:30 AM EDT Office Visit [facility] MEDICINE 230 [place] [address] Umm Coley MD 230 [place] [address] documented as of this encounter Visit Diagnoses Not on filedocumented in this encounter Care Teams Rail Car Driver Relationship Specialty Start Date End Date Umm Coley MD [address] [place] [address] PCP - General Family Medicine 10/31/16 West Meier, RN 505 [place] [address] Stars Analytical LeadContent Management Specialist 01/12/25 Eva Nunez Stars Analytical Lead 04/05/24 07/06/24 [facility] 05/11/24 11/17/24 [facility] 11/14/24 01/17/25 [employer] 12/08/24 documented as of this encounter
--- OUTSIDE RECORDS SUMMARY | 2025-03-14 15:37 | XMS_ITS | Encounter Summary ---
Author Organization [employer] Address [address] [place] [address] 7t [place] [address] Care Team Providers Care Fold Skiver Name Role Phone Umm Coley MD Primary Care Provider + West Meier RN Unavailable [phone] Reason for Visit * Reason Comments Med Refill Encounter Details Date Type Department Care Team (Late Contact Info) Description 06/10/2023 Refill [facility] MEDICINE 230 [place] [address] Yenny Morris MD [address] [place] [address] Rash Social History Tobacco Use Types Packs/Day [...] Description 03/24/2025 2:00 PM EDT Office Visit [facility] CHC ADULT DENTAL [address] [place] [address] Yovani Fountain 05/02/2025 10:30 AM EDT Office Visit [facility] MEDICINE 230 [place] [address] Umm Coley MD [address] [place] [address] documented as of this encounter Visit Diagnoses Diagnosis Rash Rash and other nonspecific skin eruption documented in this encounter Additional Health Concerns Assessment Noted Time PHQ-9 Depression Total Score: 12 023 1:58 PM EDT documented as of this encounter Care Teams Fold Skiver Relationship Specialty Start Date End Date Umm Coley MD [address] [place] [address] PCP - General Family Medicine 10/31/16 West Meier, BEBA [address] [place] [address] District AttorneyBookbinder Apprentice 01/12/25 Eva Nunez District Attorney 04/05/24 07/06/24 [facility] 05/11/24 11/17/24 [facility] 11/14/24 01/17/25 [employer] 12/08/24 documented as of this encounter
--- OUTSIDE RECORDS SUMMARY | 2025-03-14 15:37 | XMS_ITS | Encounter Summary ---
Author Organization [employer] Address [address] [facility] 7t [place] [address] Care Team Providers Care Consultant Rn Name Role Phone Umm Coley MD Primary Care Provider + West Meier RN Unavailable [phone] Reason for Visit * Reason Onset Date Comments Appointment 03/17/2023 Encounter Details Date Type Department Care Team ([facility] st Contact Info) Description 03/17/2023 Telephone [facility] ADULT DENTAL [address] [place] [address] Johnny Gonzalez, WILIAN 505 [place], [place] [phone] Appointment Social History Tobacco Use Types Packs/Day [...] Visit [facility] CHC ADULT DENTAL [address] [place] [address] Yovani Fountain 05/02/2025 10:30 AM EDT Office Visit [facility] MEDICINE [address] [place] [address] Umm Coley MD 230 [place] [address] documented as of this encounter Visit Diagnoses Not on filedocumented in this encounter Care Teams Consultant Rn Relationship Specialty Start Date End Date Umm Coley MD 230 [place] [address] PCP - General Family Medicine 10/31/16 West Meier, BEBA [address] [place] [address] Excavating SupervisorZinc Miner 01/12/25 Eva Nunez Excavating Supervisor 04/05/24 07/06/24 [facility] 05/11/24 11/17/24 [facility] 11/14/24 01/17/25 [employer] 12/08/24 documented as of this encounter
--- OUTSIDE RECORDS SUMMARY | 2025-03-14 15:37 | XMS_ITS | Encounter Summary ---
Author Organization [employer] Address [address] [facility] 7t [place] [address] Care Team Providers Care Manager Rail Name Role Phone Umm Coley MD Primary Care Provider + West Meier RN Unavailable [phone] Encounter Details Date Type Department Care Team ([facility] st Contact Info) Description 08/23/2024 Orders Only [facility] CHC ADULT DENTAL [address] [place], [place] [phone] Johnny Gonzalez, DMD [address] [place] [address] Social History Tobacco Use Types Packs/Day Years [...] Upcoming Encounters Date Type Department Care Team ([facility] st Contact Info) Description 03/24/2025 2:00 PM EDT Office Visit [facility] CHC ADULT DENTAL 505 [place] [address] Yovani Fountain 05/02/2025 10:30 AM EDT Office Visit [facility] MEDICINE 230 [place] [address] Umm Coley MD 230 [place] [address] documented as of this encounter Visit Diagnoses Not on filedocumented in this encounter Additional Health Concerns Assessment Noted Time PHQ-9 Depression Total Score: 10 024 9:17 AM EDT documented as of this encounter Care Teams Manager Rail Relationship Specialty Start Date End Date Umm Coley MD 230 [place] [address] PCP - General Family Medicine 10/31/16 West Meier, RN 505 [place] [address] Senior Sales ManagerInsurance Administrator 01/12/25 [facility] 05/11/24 11/17/24 [facility] 11/14/24 01/17/25 [employer] 12/08/24 documented as of this encounter
--- OUTSIDE RECORDS SUMMARY | 2025-03-14 15:37 | XMS_ITS | Encounter Summary ---
Author Organization [employer] Address [address] [facility] 7t [place] [address] Care Team Providers Care Plastic Tile Setter Name Role Phone Umm Coley MD Primary Care Provider + West Meier RN Unavailable [phone] Reason for Visit * Reason Comments Med Change Request Encounter Details Date Type Department Care Team ([facility] st Contact Info) Description 03/20/2023 Refill [facility] ADULT DENTAL [address] [place] [address] Johnny Gonzalez DMD [address] [place] [address] Social History Tobacco Use Types Packs/Day Years [...] 03/24/2025 2:00 PM EDT Office Visit [facility] AD[facility] [address] [place] [address] Yovani Fountain 05/02/2025 10:30 AM EDT Office Visit [facility] MEDICINE [address] [place] [address] Umm Coley MD [address] [place] [address] documented as of this encounter Visit Diagnoses Not on filedocumented in this encounter Care Teams Plastic Tile Setter Relationship Specialty Start Date End Date Umm Coley MD [address] [place] [address] PCP - General Family Medicine 10/31/16 West Meier, BEBA 505 [place] [address] Gas Torch SoldererProduction Corrugator 01/12/25 Eva Nunez Gas Torch Solderer 04/05/24 07/06/24 [facility] 05/11/24 11/17/24 [facility] 11/14/24 01/17/25 [employer] 12/08/24 documented as of this encounter
--- OUTSIDE RECORDS SUMMARY | 2025-03-14 15:37 | XMS_ITS | Encounter Summary ---
Author Organization [employer] Address [address] [place] [address] 7t [place] [address] Care Team Providers Care Institutional Asset Manager Name Role Phone Umm Coley MD Primary Care Provider + West Meier RN Unavailable Reason for Visit * Reason Comments Med Refill Encounter Details Date Type Department Care Team (Late Contact Info) Description 08/01/2023 Refill [facility] MEDICINE [address] [place], [place] [phone] Umm Coley MD [address] [place], [place] [phone] Social History Tobacco Use Types Packs/Day Years [...] Upcoming Encounters Date Type Department Care Team ([facility] Contact Info) Description 03/24/2025 2:00 PM EDT Office Visit [facility] CHC ADULT DENTAL [address] [place] [address] Yovani Fountain 05/02/2025 10:30 AM EDT Office Visit [facility] MEDICINE [address] [place] [address] Umm Coley MD [address] [place] [address] documented as of this encounter Visit Diagnoses Not on filedocumented in this encounter Additional Health Concerns Assessment Noted Time PHQ-9 Depression Total Score: 12 023 1:58 PM EDT documented as of this encounter Care Teams Institutional Asset Manager Relationship Specialty Start Date End Date Umm Coley MD [address] [place] [address] PCP - General Family Medicine 10/31/16 West Meier, BEBA [address] [place] [address] Shift StackerKiln Puller 01/12/25 Eva Nunez Shift Stacker 04/05/24 07/06/24 [facility] 05/11/24 11/17/24 [facility] 11/14/24 01/17/25 [employer] 12/08/24 documented as of this encounter
--- OUTSIDE RECORDS SUMMARY | 2025-03-14 15:37 | XMS_ITS | Encounter Summary ---
Author Organization [employer] Address [address] [place] [address] 7t [place] [address] Care Team Providers Care Paper Reel Operator Name Role Phone Umm Coley MD Primary Care Provider + West Meier RN Unavailable [phone] Reason for Visit * Reason Comments Med Refill Encounter Details Date Type Department Care Team (Late st Contact Info) Description 05/21/2023 Refill [facility] MEDICINE [address] [place], [place] [phone] Umm Coley MD [address] [place], [place] [phone] Arthritis of knee Social History Tobacco Use [...] Description 03/24/2025 2:00 PM EDT Office Visit [facility] CHC ADULT DENTAL [address] [place] [address] Yovani Fountain 05/02/2025 10:30 AM EDT Office Visit [facility] MEDICINE [address] [place] [address] Umm Coley MD [address] [place] [address] documented as of this encounter Visit Diagnoses Diagnosis Arthritis of knee Unspecified arthropathy, lower leg documented in this encounter Additional Health Concerns Assessment Noted Time PHQ-9 Depression Total Score: 12 023 1:58 PM EDT documented as of this encounter Care Teams Paper Reel Operator Relationship Specialty Start Date End Date Umm Coley MD [address] [place] [address] PCP - General Family Medicine 10/31/16 West Meier, BEBA [address] [place] [address] Agricultural Labor Camp ManagerOrder Department Supervisor 01/12/25 Eva Nunez Agricultural Labor Camp Manager 04/05/24 07/06/24 [facility] 05/11/24 11/17/24 [facility] 11/14/24 01/17/25 [employer] 12/08/24 documented as of this encounter
--- OUTSIDE RECORDS SUMMARY | 2025-03-14 15:37 | XMS_ITS | Encounter Summary ---
Author Organization [employer] [facility] Address [address] [place] [address] 7t [place] [address] Care Team Providers Care Counseling Specialist Name Role Phone Umm Coley MD Primary Care Provider + West Meier RN Unavailable Encounter Details Date Type Department Care Team (Latest Contact Info) Description 11/14/2019 Abstract [facility] CONVERSIONS Dental, Provider, DDS Social History [...] Description 03/24/2025 2:00 PM EDT Office Visit [facility] CHC ADULT DENTAL [address] [place] [address] Yovani Fountain 05/02/2025 10:30 AM EDT Office Visit [facility] MEDICINE [address] [place] [address] Umm Coley MD [address] [place], [place] [phone] documented as of this encounter Visit Diagnoses Not on filedocumented in this encounter Care Teams Counseling Specialist Relationship Specialty Start Date End Date Umm Coley MD [address] [place], [place] [phone] PCP - General Family Medicine 10/31/16 West Meier, BEBA 505 [facility] [place] [address] Warehouse ProcessorRegional Wildlife Agent 01/12/25 Eva Nunez Warehouse Processor 04/05/24 07/06/24 [facility] 05/11/24 11/17/24 [facility] 11/14/24 01/17/25 [employer] 12/08/24 documented as of this encounter
--- OUTSIDE RECORDS SUMMARY | 2025-03-14 15:37 | XMS_ITS | Encounter Summary ---
Author Organization [employer] Address [address] [facility] [address] [place] [address] Care Team Providers Care Herb Digger Name Role Phone Umm Coley MD Primary Care Provider + West Meier RN Unavailable [phone] Reason for Visit * Reason Onset Date Comments Care Management 03/13/2025 C3CM- F/U call ( 3rd attempt) Encounter Details Date Type Department Care Team ([facility] st Contact Info) Description 03/13/2025 Telephone [facility] [address] [place], [place] [phone] Umm Coley MD [address] [place], [place] [phone] Care Management (C3CM- F/U call (3rd attempt)) [...] you do. This CM sent Barb from [facility] a fax requesting to schedule above meeting with both providers. Received fax confirmation. Awaiting for either a call or a fax back. * Telephone Encounter - West Meier RN - 03/13/2025 2:03 PM EDT CM West Meier RN placed outbound call for follow up call. No answer at this time. LVM introducing myself from [facility] CM Department. Requested call back. CM reinforced direct contactinformation for any additional questions or concerns. Education provided on [facility] located in [facility]. Patient provided with after-hours line for [facility], , which offer night time triage service and option to transfer to nurse practitioner adult provider if needed. CM will attempt another follow up call within 10 days. documented in this encounter Plan of Treatment Upcoming Encounters Date Type Department Care Team (Late st Contact Info) Description 03/24/2025 2:00 PM EDT Office Visit [facility] ADULT [facility] [address] [place] [address] Yovani Fountain 05/02/2025 10:30 AM EDT Office Visit [facility] [address] [place] [address] Umm Coley MD [address] [place] [address] documented as of this encounter Visit Diagnoses Not on filedocumented in this encounter Additional Health Concerns Assessment Noted Time PHQ-9 Depression Total Score: 10 024 9:17 AM EDT documented as of this encounter Care Teams Herb Digger Relationship Specialty Start Date End Date Umm Coley MD [address] [place] [address] PCP - General Family Medicine 10/31/16 West Meier RN [address] [place] [address] Route Delivery ManagerProject Executive 01/12/25 documented as of this encounter
--- OUTSIDE RECORDS SUMMARY | 2025-03-14 15:37 | XMS_ITS | Encounter Summary ---
Author Organization [employer] Address [address] [facility] [address] [place] [address] Care Team Providers Care Customer Service Associate Name Role Phone Umm Coley MD Primary Care Provider + West Meier RN Unavailable [phone] Reason for Visit * Reason Onset Date Comments appt 01/08/2024 Encounter Details Date Type Department Care Team ([facility] st Contact Info) Description 01/08/2024 Telephone [facility] ADULT D[facility] [address] [place], [place] [phone] Homer Strong, DDS [address] [place], [place] [phone] appt Social History Tobacco Use Types Packs/Day [...] Description 03/24/2025 2:00 PM EDT Office Visit [facility] ADULT [facility] [address] [place] [address] Yovani Fountain 05/02/2025 10:30 AM EDT Office Visit [facility] MEDICINE [address] [place] [address] Umm Coley MD [address] [place] [address] documented as of this encounter Visit Diagnoses Not on filedocumented in this encounter Additional Health Concerns Assessment Noted Time PHQ-9 Depression Total Score: 21 024 11:31 AM EST documented as of this encounter Care Teams Customer Service Associate Relationship Specialty Start Date End Date Umm Coley MD [address] [place] [address] PCP - General Family Medicine 10/31/16 West Meier, BEBA [address] [place] [address] [employer]otive Tire Technician 01/12/25 Eva Nunez [employer] 04/05/24 07/06/24 [employer] [facility] 05/11/24 11/17/24 [facility] 11/14/24 01/17/25 [employer] 12/08/24 documented as of this encounter
--- OUTSIDE RECORDS SUMMARY | 2025-03-14 15:37 | XMS_ITS | Clinical Summary ---
Author Organization [employer] Address [address] [place] [address] 7t [place] [address] Care Team Providers Care Licensed Acupuncturist Name Role Phone Shalonda Coley MD Primary Care Provider + [place] RN Unavailable Allergies Active Allergy Reactions Criticality Noted Date [...] medication management by current VNA services ([facility]). I asked her if she wants [...] continue f/u with mental health provider in [facility]. Dry eye 05/16/2024 Assessment & Plan [...] her to write a complaint to the , building active directory systems administrator, and housing department. I gave them information about legal recovery specialist in the [place] Will refer to healthcare manager to assist with housing due to poor conditions of current apartment Pt already has a letter from counselor, will FU at next appointment Household circumstance affecting care 02/03/2023 Assessment & Plan (12/11/2023 9:49 AM EST): Pt has depression and difficulty with memory. She has a SPRING FORMER and a VNA to manage med, pharma [...] increased anxiety with household circumstance Refer to [facility] Assessment & Plan (02/03/2023 2:23 PM EDT): [...] we can organize the medications. Pt and [employer] agreed with the plan of care. POC discussed with team nurse and wall mirror department supervisor. Assessment & Plan (04/28/2024 3:33 PM [...] she needs pharmaco education. She's followed by [facility] psych. I told her and [employer]ING [employer] she needs to bring all her med bottles so we can go over her meds until the new VNA service is restarted. Her SPRING [employer]MER is helping her as well as her daughter With meds for now. Pt feels safe. Will send new Rx if needed with prescription in estonian so VNA can read it (one of the issues being that med rx were written in [place] and the VNA that took over didn't understand the directions). Will check with VNA service to see what current situation is, pt wants to start using a new VNA service (the one her neighbor uses, [facility] [place]) . Contusion of knee 02/16/2018 Motor [...] has to reschedule pharmacological stress test in [facility] dc amlodipine and flexeril and take [...] Type Department Care Team Description 03/13/2025 Telephone [facility] [address] [place] [phone] Shalonda Coley MD Care Management (C3CM- F/U call (3rd attempt)) 03/01/2025 Telephone [facility] [address] [place] [address] Jarvis Jessie 03/01/[address] [address] Shalonda Coley MD Care Management (C3CM- to request updated medlist) 03/01/[address] [address] Shalonda Coley MD Medication Question 02/28/[address] [address] Shalonda Coley MD 02/27/[address] [address] Shalonda Coley MD Status check call/[employer]/Psych 02/27/2025 Telephone [facility] [address] [place] [address] Mariangel Ruff 02/23/[address] [address] Shalonda Coley MD Care Management (C3- Follow up call # 2/LVM) 02/15/2025 Orders Only [facility] External Provider, [facility] 02/10/[address] [address] Shalonda Coley MD Care Management (C3CM- Follow up call # 2) 02/07/[address] [address] Shalonda Coley MD 02/07/[address] [address] Shalonda Coley MD Durable Medical Equipment (DME Script Handheld Shower(L&C)) 02/03/2025 2:00 PM EDT Office Visit [address] [address] Darrell Myers MD Lentigo (Primary Dx); Hypomelanosis 02/03/2025 Travel 2025 Orders Only [facility] External Provider, [facility] 2025 Telephone [facility] [address] [place] [address] Shalonda Coley MD Medication Question 01/31/2025 Telephone [facility] [address] [place] [phone] Shalonda Coley MD Care Management ([facility]- Follow up call # 2/ appt reminder/ LVM) 01/31/2025 Orders Only GENERIC EXTERNAL DATA DEPARTMENT Provider, Generic External Data 01/27/[address] [address] Shalonda Coley MD Appointment Request 01/27/[address] [address] Shalonda Coley MD Appointment Request 01/25/2025 Refill [facility] [address] [place] [address] Shalonda Coley MD Rash 01/24/2025 Telephone [facility] [address] [place] [address] Shalonda Coley MD Care Management ([facility]- Follow Up Call # 1) 01/24/2025 Telephone [facility] [address] [place] [address] [phone] Shalonda Coley MD 01/16/[address] [address] Shalonda Coley MD Care Management ([facility]) 01/13/2025 Patient Outreach [facility] [address] [place] [address] [phone] Shalonda Coley MD Care Coordination ([facility] Shannan Covington telephone call outreach) 01/13/2025 Population Health Risk Score [facility] (C3) Department [address] [place] [phone] Provider, Population Health Generic 01/12/2025 Telephone [facility] [address] [place] [address] [phone] Shalonda Coley MD Care Management ([facility]- Initial assessment/enrollme nt) 01/11/2025 Patient Outreach [address] [place] [address] Shalonda Coley MD Care Coordination ([facility] telephone call outreach) 01/06/[address] [place] [address] Shalonda Coley MD Nurse Triage 01/06/[address] [address] Shalonda Coley MD FYI 01/04/[address] [address] Shalonda Coley MD VNA services 01/02/2025 Orders Only [facility] External Provider, [facility] 12/29/[address] [address] Shalonda Coley MD Results 12/28/[address] [address] Shalonda Coley MD 12/28/2024 Patient Outreach [address] [address] Shalonda Coley MD Care Coordination ([address] Shannan Covington telephone call outreach) 12/28/2024 Patient Outreach [address] [address] Shalonda Coley MD 12/28/[address] [address] Shalonda Coley MD Medication List 12/28/[address] [address] Shalonda Coley MD Care Management (P6EL-nelbv review) 12/27/2024 1:00 PM EST Office Visit [address] [address] Shalonda Coley MD Encounter for monitoring of patient compliance in drug treatment program (Primary Dx); Intercostal pain 12/27/2024 Travel 12/26/[address] [address] Shalonda Coley MD ED f/u call 12/26/[address] [address] Shalonda Coley MD Appointment Request 12/23/[address] [address] Shalonda Coley MD Chart prep 12/22/[address] [phone] Shalonda Coley MD Appointment Request 12/20/[address] [phone] Shalonda Coley MD Call Back Request from [...] 03/24/2025 2:00 PM EDT Office Visit [facility] [address] [place] [address] Yovani Fountain 05/02/2025 10:30 AM EDT Office Visit [facility] [address] [place], [place] [phone] Shalonda Coley MD [address] [place], [place] [phone] Health Maintenance Due Date Last Done Comments [...] Surgeons ? [address] ?[place] [address] ?XRay Report ? Signed ? Patient: Myles,Diana L ?MR#: [id number] ?? 8 ? : 1965 ?Acct:[id number] ? Age/Sex: 60 / F ?ADM Date: 04/16/25 ? Loc: HO.HOSX ? Attending Dr: Zhou PALENCIA ? Ordering Physician: Zhou Sosa ?? Date of Service: 02/15/25 ?? Procedure(s): XR wrist RT min 3V ?? Accession Number(s): [id number] ? cc: Zhou Sosa; Shalonda Coley MD [...] DD/ 1340 ? TD/TT: 02/15/25 1345 ? Sld Teacher: ? Procedure Note Adalgisa, Chin - 02/16/2025 [facility] [address] [place] [address] [address] [place] [address] XRay Report Signed Patient: Diana Myles LMR#: [id number] 8 : 1965Acct:[id number] Age/Sex: 60 / FADM Date: 02/15/25 Loc: RUPERT Attending Dr: Zhou PALENCIA Ordering Physician: Zhou Sosa Date of Service: 02/15/25 Procedure(s): XR wrist RT min 3V Accession Number(s): [id number] cc: Zhou Sosa; Shalonda Coley MD EXAMINATION: [...] 02/16/25 0921 DD/ 1340 TD/TT: 02/15/25 1345 Sld Teacher: [facility] External Provider IMG XR PROCEDURES Final Result * Vitamin D, 25-Hydroxy, Total, Immunoassay (01/31/2025 8:47 AM EDT) Vitamin D 25-OH Total 39.3 >30 ng/mL [facility] Comment: Health Based Reference Values*< 20 ??ng/mL ??Xslsravev47-92 ng/mL ??Insufficient> 30 ??ng/mL ??Sufficient*Bakari PINO. N [...] ORDERABLES Fin al Result Performing Organization Address City/[facility]/ZIP Co de Phone Number [facility] [address] [place] [phone] * Vitamin B12 (Cobalamin) and Folate Panel, Serum (01/31/2025 8:47 AM EDT) Vitamin B12 644 200 - 900 pg/mL [facility] Comment:NORMAL 200-900 PG/ML INDETERMINATE 160-199 PG/ML DEFICIENT < 160 PG/ML Folate 11.1 > or = 4.0 ng/mL [facility] Comment:Reference Values:> o r = 4.0 ng/mL< 4.0 ng/mL suggests folate deficiency Methotrexate, aminopterin and folinic acid(leucovorin) are chemotherapeutic agents whose molecularstructures are similar to folate; therefore, the Architectfolate assay cannot be used for patients using these drugs. 01/31/2025 8:47 AM EDT 01/31/2025 8:47 AM EDT us Generic External Data Provider LAB BLOOD ORDERAB LES Final Result Performing Organization Address [facility]/ZIP Co de Phone Number [facility] [address] [place] [address] [phone] * TSH with Reflex to Free T4 (01/31/2025 8:47 AM EDT) TSH reflex Free T4 2.06 0.32 - 4.0 uIU/mL [facility] Blood 01/31/2025 8:47 AM EDT 01/31/2025 8:47 AM EDT us Shalonda Coley MD LAB BLOOD ORDERABLES Fin al Result Performing Organization Address [facility] Co de Phone Number [facility] [address] [place] [phone] * (ABNORMAL) Lipid Panel with Reflex to Direct LDL (01/31/2025 8:47 AM EDT) Triglycerides 69 <150 mg/dL [facility] Comment:Desirable Triglyceri de: less than 150 mg/dLBorderline High Triglyceride 150-199 mg/dLHigh Triglyceride: 200-499 mg/dLVery High Triglyceride: greater than or equal to 5OO mg/dL Cholesterol 213(H) <200 mg/dL [facility] Comment:Desirable Cholestero l: less than 200 mg/dLBorderline High Cholesterol: 200-239 mg/dLHigh Cholesterol: greater than 239 mg/dL LDL Cholesterol Calculated 128(H) <100 mg/dL [facility] Comment:Desirable LDL: less than 100 mg/dLNear Optimal/Above Optimal LDL: 110- 129 mg/dLBorderline High LDL: 130-159 mg/dLHigh LDL: 160-189 mg/dLVery High LDL: greater than or equal to 190 mg/dL HDL Cholesterol 72 >40 mg/dL [facility] Comment:Desirable HDL: great er than 40 mg/dL Note: This HDL assay may give artificially low results in patients with liver disease. Blood 01/31/2025 8:47 AM EDT 01/31/2025 8:47 AM EDT us Shalonda Coley MD LAB BLOOD ORDERABLES Fin al Result Performing Organization Address [facility] Co de Phone Number [facility] [address] [place] [phone] * (ABNORMAL) CBC auto differential (01/31/2025 8:47 AM EDT) White Blood Count 6.4 4.8 - 10.8 X10*3/uL [facility] Red Blood Count 4.21 4.20 - 5.50 X10*6/uL [facility] Hemoglobin 12.9 12.0 - 16.0 g/dl [facility] Hematocrit 38.8 37.0 - 47.0 % [facility] Mean Corpuscular Volume 92.2 80.0 - 98.0 fL [facility] Mean Corpuscular Hemoglobin 30.6 27.0 - 33.0 pg [facility] Mean Corpuscular HGB Conc 33.2 31.0 - 35.0 g/dl [facility] Red Cell Distribution Width 13.2 11.0 - 16.0 % [facility] Platelet Count 312 160 - 400 X10*3/uL [facility] Mean Platelet Volume 9.0(L) 9.4 - 12.3 fL [facility] Neutrophils Percent Auto 69.5 45 - 73 % [facility] Imm Gran Pct Auto 0.3 0.0 - 0.4 % [facility] Lymphocytes Percent Auto 22.7 20 - 40 % [facility] Monocytes Percent Auto 5.9 2 - 11 % [facility] Eosinophils Percent Auto 1.1 0 - 4 % [facility] Basophils Percent Auto 0.5 0 - 2 % [facility] NRBC Pct Auto 0.0 0.0 - 0.2 /100WBC [facility] Neutrophils Absolute Auto 4.4 2.0 - 8.3 x10*3/uL [facility] Imm Gran Abs Auto 0.02 0.00 - 0.03 X10*3/uL [facility] Lymphocytes Absolute Auto 1.5 1.2 - 4.9 X10*3/uL [facility] Monocytes Absolute Auto 0.4 0.1 - 1.2 X10*3/uL [facility] Eosinophils Absolute Auto 0.1 0.0 - 0.4 X10*3/uL [facility] Basophils Absolute Auto 0.0 0.0 - 0.2 X10*3/uL [facility] NRBC Abs Auto 0.000 0.0 - 0.012 X10*3/uL [facility] 01/31/2025 8:47 AM EDT 01/31/2025 8:47 AM EDT us Generic External Data Provider LAB BLOOD ORDERAB LES Final Result [facility] [address] [place] [phone] * Methylmalonic Acid (01/31/2025 8:47 AM EDT) Methylmalonic Acid 132 69 - 390 nmol/L [facility] Comment: Serum methylmalonic acid (MMA) [...] outcomes,such as neural tube defects and intrauterine growthrestriction.Notable Limited utilized Multi-Modal Decomposition(MMD) analysis to establish first and second trimester-specific MMA reference intervals in , as givenbelow:MMA, First trimester (<13 wks gestation): 58-167 nmol/LMMA, Second trimester (13-23 wks gestation):63-241 nmol/LThis test was developed and its analytical performancecharacteristics have been determined by [employer]. It has not been cleared or approved by theFDA. This assay has been validated pursuant to the CLIAregulations and is used for clinical purposes.THIS TEST WAS PERFORMED AT:[employer] [place], [place] ??[phone] QUIROZ MD,PHD 01/31/2025 8:47 AM EDT 01/31/2025 8:47 AM EDT us Generic External Data Provider LAB BLOOD ORDERAB LES Final Result Performing Organization Address [facility] Co de Phone Number [facility] [address] [place] [phone] * Iron And Total Iron Binding Capacity (01/31/2025 8:47 AM EDT) Iron 47 30 - 160 mcg/dL [facility] Total Iron Binding Capacity 268 228 - 428 mcg/dL [facility] Percent Iron Saturation 18 15 - 50 % [facility] Unsaturated Iron Binding 221 ug/dL [facility] 01/31/2025 8:47 AM EDT 01/31/2025 8:47 AM EDT Generic External Data Provider LAB BLOOD ORDERAB LES Final Result Performing Organization Address [facility] de Phone Number [facility] [address] [place] [phone] * (ABNORMAL) Amitriptyline (01/31/2025 8:47 AM EDT) Amitriptyline <5 mcg/L [facility] Nortriptyline <5 mcg/L [facility] Total (Amitriptyline+Nortriptyline) <5(A) 100 - 250 mcg/L [facility] Comment:This test was develo ped and its analytical performancecharacteristics have been determined by [employer] [place], [place]. It hasnot been cleared or approved by the U.S. Food and DrugAdministration. This assay has been validated pursuantto the CLIA regulations and is used for clinicalpurposes.THIS TEST WAS PERFORMED AT:[employer] [place] [phone] QUIROZ MD,PHD 01/31/2025 8:47 AM EDT 01/31/2025 8:47 AM EDT Generic External Data Provider LAB BLOOD ORDERAB LES Final Result Performing Organization Address [facility]/ZIP Co de Phone Number [facility] [address] [place] [phone] * Magnesium (01/31/2025 8:47 AM EDT) [facility] Magnesium 2.1 1.6 - 2.6 mg/dL [facility] 01/31/2025 8:47 AM EDT 01/31/2025 8:47 AM EDT Generic External Data Provider LAB BLOOD ORDERAB LES Final Result Performing Organization Address [facility] de Phone Number [facility] [address] [place] [phone] * (ABNORMAL) Homocysteine (01/31/2025 8:47 AM EDT) [facility] Homocysteine 11.1(A) <10.4 umol/L [facility] Comment:Homocysteine is incr eased by functional deficiency offolate or vitamin B12. Testing for methylmalonic aciddifferentiates between these deficiencies. Other causesof increased homocysteine include renal failure, folateantagonists such as methotrexate and phenytoin, andexposure to nitrous oxide.Malu Cleveland, et al., Amparo Payroll Administrator Med. 1999;131(5):331-9.THIS TEST WAS PERFORMED AT:[employer] [address] [phone] GROVE MD 01/31/2025 8:47 AM EDT 01/31/2025 8:47 AM EDT Generic External Data Provider LAB BLOOD ORDERAB LES Final Result Performing Organization Address [facility] Co de Phone Number [facility] [address] [place] [phone] * Ferritin (01/31/2025 8:47 AM EDT) [facility] Ferritin 161 10 - 250 ng/mL [facility] 01/31/2025 8:47 AM EDT 01/31/2025 8:47 AM EDT us Generic External Data Provider LAB BLOOD ORDERAB LES Final Result [facility] [address] [place] [phone] * XR Elbow 3+ Views Right (01/09/2025 1:02 PM EDT) Anatomical Region Laterality Modality Upper Extremities, Elbow Right Radiogr aphic Imaging 01/09/2025 1:02 PM EDT Narrative 02/03/2025 7:56 AM EDT ? [facility] ? [address] ?[place] [address] ?XRay Report ? Signed ? Patient: Myles,Diana L ?MR#: [id number] ?? 8 ? : 1965 ?Acct:[id number] ? Age/Sex: 59 / F ?ADM Date: 01/09/25 ? Loc: HO.HOSX ? Attending Dr: Zhou PALENCIA ? Ordering Physician: Zhou Sosa ?? Date of Service: 01/09/25 ?? Procedure(s): XR elbow RT min 3V ?? Accession Number(s): [id number] ? cc: Zhou Sosa; Shalonda Coley MD [...] cast in the forearm no within the xdbay-tc-edeu. ? XR/XR elbow RT min 3V ?? IMPRESSION: ?? No acute fracture or dislocation. ? Electronically signed by: ??Steven Coreas MD ??02/03/2025 07:54 AM ?? EDT RP ? Dictated By: ?Steven Gan MD ? Signed By: ?<Electronically signed by Steven Gary MD in OV> ? 02/03/25 0754 ? DD/ 1302 ? TD/TT: 01/09/25 1308 ? Sld Teacher: ? Procedure Note Adalgisa, Image - 02/03/2025 [facility] [address] [place] [address] Drive [address] [place] [address] XRay Report Signed Patient: Diana Myles LMR#: [id number] 8 : 1965Acct:[id number] Age/Sex: 59 / FADM Date: 01/09/25 Loc: RUPERT Attending Dr: Zhou PALENCIA Ordering Physician: Zhou Sosa Date of Service: 01/09/25 Procedure(s): XR elbow RT min 3V Accession Number(s): [id number] cc: Zhou Sosa; Shalonda Coley MD EXAMINATION: XR ELBOW, RIGHT CLINICAL INFORMATION: M25.521 - Pain in right elbow COMPARISON: None available. TECHNIQUE: AP, lateral, and oblique views of the right elbow. FINDINGS: No acute cortical disruption or malalignment. No gross joint effusion. No subcutaneous emphysema. No lytic or blastic lesions. Fiberglas cast in the forearm no within the gzoje-xr-ywdn. XR/XR elbow RT min 3V IMPRESSION: No acute fracture or dislocation. Electronically signed by: Steven Coreas MD 02/03/2025 07:54 AM EDT Dictated By: Steven Gan MD Signed By: <Electronically signed by Steven Gary MDin OV> 02/03/25 0754 DD/ 1302 TD/TT: 01/09/25 1308 Sld Teacher: [facility] External Provider IMG XR PROCEDURES Final Result * FL Guidance in OR (01/02/2025 12:09 PM EST) Anatomical Region Laterality Modality X-Ray Angiograph y 01/02/2025 12:0 9 PM EST Narrative 01/03/2025 9:58 AM EST ? [facility] ?[address] ?[place] [address] ? Fluoroscopy Report ? Signed ? Patient: Myles,Diana L ?MR#: [id number] ?? 8 ? : 1965 ?Acct:[id number] ? Age/Sex: 59 / F ?ADM Date: 01/02/25 ? Loc: HO.SSS ? Attending Dr: Sydney Cleveland MD ? Ordering Physician: Sydney Cleveland MD ?? Date of Service: 01/02/25 ?? Procedure(s): FL guidance in OR ?? Accession Number(s): [id number] ? cc: Shalonda Coley MD; Sydney Cleveland [...] DD/ 1209 ? TD/TT: 01/02/25 1510 ? Sld Teacher: MSM ? Procedure Note Chin Diana - 01/03/[address] [address] Fluoroscopy Report Signed Patient: Diana Myles LMR#: [id number] 8 : 1965Acct:[id number] Age/Sex: 59 / FADM Date: 01/02/25 Loc: HO.SSS Attending Dr: Sydney Cleveland MD Ordering Physician: Sydney Cleveland MD Date of Service: 01/02/25 Procedure(s): FL guidance in OR Accession Number(s): [id number] cc: Shalonda Coley MD; Sydney Cleveland MD [...] 01/03/25 0956 DD/ 1209 TD/TT: 01/02/25 1510 Sld Teacher: ANTONY [facility] External Provider IMG IR PROCEDURES Final Result * XR Ribs 2 Views Right (12/27/2024 1:56 PM EST) Anatomical Region Laterality Modality Rib, Abdomen Right Radiographic Kyleigh ging 12/27/2024 1:56 PM EST Narrative 12/27/2024 2:35 PM EST ?[facility] ?[address] ?[place] [address] ?XRay Report ? Signed ? Patient: Myles,Diana L ?MR#: [id number] ?? 8 ? : 1965 ?Acct:[id number] ? Age/Sex: 59 / F ?ADM Date: 02/25/25 ? Loc: HO.HHCX ? Attending Dr: Shalonda Coley MD ? Ordering Physician: Shalonda Coley MD ?? Date of Service: 12/27/24 ?? Procedure(s): XR ribs RT 2V ?? Accession Number(s): [id number] ? cc: Shalonda Coley MD ? EXAMINATION: [...] DD/ 1356 ? TD/TT: 12/27/24 1424 ? Sld Teacher: ? Procedure Note Marthajadenjose antonio, Image - 12/27/[address] [address] XRay Report Signed Patient: Diana Myles LMR#: [id number] 8 : 1965Acct:[id number] Age/Sex: 59 / FADM Date: 12/27/24 Loc: HO.HHCX Attending Dr: Shalonda Coley MD Ordering Physician: Shalonda Coley MD Date of Service: 12/27/24 Procedure(s): XR ribs RT 2V Accession Number(s): [id number] cc: Shalonda Coley MD EXAMINATION: XR CHEST [...] 12/27/24 1433 DD/ 1356 TD/TT: 12/27/24 1424 Sld Teacher: Shalonda Coley MD IMG XR PROCEDURES Final Result * XR Chest 2 Views (12/27/2024 1:56 PM EST) Anatomical Region Laterality Modality Chest Radiographic Kyleigh ging 12/27/2024 1:56 PM EST Narrative 12/27/2024 2:36 PM EST ?[facility] ?[address] ?[place] [address] ?XRay Report ? Signed ? Patient: Myles,Diana L ?MR#: [id number] ?? 8 ? : 1965 ?Acct:[id number] ? Age/Sex: 59 / F ?ADM Date: 12/27/24 ? Loc: HO.HHCX ? Attending Dr: Shalonda Coley MD ? Ordering Physician: Shalonda Coley MD ?? Date of Service: 12/27/24 ?? Procedure(s): XR chest 2V ?? Accession Number(s): [id number] ? cc: Shalonda Coley MD ? EXAMINATION: [...] DD/ 1356 ? TD/TT: 12/27/24 1424 ? Sld Teacher: ? Procedure Note Donotuseinterpreter, Image - 12/27/2024 [place] [address] XRay Report Signed Patient: Diana Myles LMR#: [id number] 8 : 1965Acct:[id number] Age/Sex: 59 / FADM Date: 12/27/24 Loc: HO.HHCX Attending Dr: Shalonda Coley MD Ordering Physician: Shalonda Coley MD Date of Service: 12/27/24 Procedure(s): XR chest 2V Accession Number(s): [id number] cc: Shalonda Coley MD EXAMINATION: XR CHEST [...] 12/27/24 1433 DD/ 1356 TD/TT: 12/27/24 1424 Sld Teacher: us Shalonda Coley MD IMG XR PROCEDURES Final Result * XR HAND WRIST RT (12/23/2024 6:57 PM EST) Only the most recent of2 resultswithin the time period is included. Anatomical Region Laterality Modality Abdomen Radiographic Kyleigh ging 12/23/2024 6:57 PM EST Narrative 12/23/2024 6:59 PM EST ? [facility] ?[address] ?[place] [address] ?XRay Report ? Signed ? Patient: Myles,Diana L ?MR#: [id number] ?? 8 ? : 1965 ?Acct:[id number] ? Age/Sex: 59 / F ?ADM Date: 12/23/24 ? Loc: HO.ED ? Attending Dr: ? Ordering Physician: Diomedes Shultz ?? Date of Service: 12/23/24 ?? Procedure(s): XR hand wrist RT ?? Accession Number(s): [id number] ? cc: Diomedes Shultz; Shalonda Coley MD [...] 1858 ? DD/ ? TD/TT: 12/23/241856 ? Sld Teacher: ? Procedure Note Adalgisa, Image - 12/23/2024 [place] [address] XRay Report Signed Patient: Diana Myles LMR#: [id number] 8 : 1965Acct:[id number] Age/Sex: 59 / FADM Date: 12/23/24 Loc: HO.ED Attending Dr: Ordering Physician: Diomedes Shultz Date of Service: 12/23/24 Procedure(s): XR hand wrist RT Accession Number(s): [id number] cc: Diomedes Shultz; Shalonda Coley MD CLINICAL [...] in OV> 12/23/241857 DD/ 56 TD/TT: 12/23/241856 Sld Teacher: [facility] External Provider IMG XR PROCEDURES Final Result * CT Head w/o Contrast (12/23/2024 4:42 PM EST) Anatomical Region Laterality Modality Head, Neck Computed Tomogra phy 12/23/2024 4:42 PM EST Narrative 12/23/2024 4:54 PM EST ? [facility] ?[address] ?[place] [address] ? CT Scan Report ? Signed ? Patient: Myles,Diana L ?MR#: [id number] ?? 8 ? : 1965 ?Acct:[id number] ? Age/Sex: 59 / F ?ADM Date: 12/23/24 ? Loc: HO.ED ? Attending Dr: ? Ordering Physician: Diomedes Shultz ?? Date of Service: 12/23/24 ?? Procedure(s): CT head/brain wo IV con ?? Accession Number(s): [id number] ? cc: Diomedes Shultz; Shalonda Coley MD ? Report Number: ?? [id number]: Total DLP = ??821.00 mGy-cm ?? EXAMINATION: [...] ??12/23/2024 04:51 PM EST RP ?? Workstation: [employer][id number] ? Dictated By: ?Mathieu Lepe MD ? Signed By: ?<Electronically signed by Mathieu Lepe MD in OV> ?12/23/24 1651 ? DD/ 1642 ? TD/TT: 12/23/24 1642 ? Sld Teacher: ? Procedure Note Donotuseinterpreter, Image - 12/23/[address] [place] [address] [address] Scan Report Signed Patient: Diana Myles LMR#: [id number] 8 : 1965Acct:[id number] Age/Sex: 59 / FADM Date: 12/23/24 Loc: HO.ED Attending Dr: Ordering Physician: Diomedes Shultz Date of Service: 12/23/24 Procedure(s): CT head/brain wo IV con Accession Number(s): [id number] cc: Diomedes Shultz; Shalonda Coley MD Report Number: [id number]: Total DLP = 821.00 mGy-cm EXAMINATION: CT [...] 12/23/24 1651 DD/ 1642 TD/TT: 12/23/24 1642 Sld Teacher: [facility] External Provider IMG CT PROCEDURES Final Result * CT Cervical Spine w/o Contrast (12/23/2024 3:29 PM EST) Anatomical Region Laterality Modality Spine, C-spine Computed Tomogra phy 12/23/2024 3:29 PM EST Narrative 12/23/2024 4:57 PM EST ? [facility] ?[address] ?[place] [address] ? CT Scan Report ? Signed ? Patient: Myles,Diana L ?MR#: [id number] ?? 8 ? : 1965 ?Acct:[id number] ? Age/Sex: 59 / F ?ADM Date: 12/23/24 ? Loc: HO.ED ? Attending Dr: ? Ordering Physician: Diomedes Shultz ?? Date of Service: 12/23/24 ?? Procedure(s): CT cervical spine wo IV con ?? Accession Number(s): [id number] ? cc: Diomedes Shultz; Shalonda Coley MD ? Report Number: ?? [id number]: Total DLP = ??821.00 mGy-cm ?? EXAMINATION: [...] ??12/23/2024 04:54 PM EST RP ?? Workstation: [id number] ? Dictated By: ?Mathieu Lepe MD ? Signed By: ?<Electronically signed by Mathieu Lepe MD in OV> ?12/23/24 1654 ? DD/ 1529 ? TD/TT: 12/23/24 1642 ? Sld Teacher: ? Procedure Note Chin Diana - 12/23/[address] [address] [address] Scan Report Signed Patient: Diana Myles LMR#: [id number] 8 : 1965Acct:[id number] Age/Sex: 59 / FADM Date: 12/23/24 Loc: HO.ED Attending Dr: Ordering Physician: Diomedes Shultz Date of Service: 12/23/24 Procedure(s): CT cervical spine wo IV con Accession Number(s): [id number] cc: Diomedes Shultz; Shalonda Coley MD Report Number: [id number]: Total DLP = 821.00 mGy-cm EXAMINATION: CT [...] by Mathieu Lepe MD in OV> 12/23/24 0114 DD/ 1529 TD/TT: 12/23/24 1642 Sld Teacher: [facility] External Provider IMG CT PROCEDURES Final Result * XR Shoulder 2+ Views Right (12/23/2024 3:09 PM EST) Anatomical Region Laterality Modality Upper Extremities, Shoulder Right Radi ographic Imaging 12/23/2024 3:09 PM EST Narrative 12/23/2024 3:43 PM EST ? [facility] ?[address] ?[place] [address] ?XRay Report ? Signed ? Patient: Myles,Diana L ?MR#: [id number] ?? 8 ? : 1965 ?Acct:[id number] ? Age/Sex: 59 / F ?ADM Date: 12/23/24 ? Loc: HO.ED ? Attending Dr: ? Ordering Physician: Diomedes Shultz ?? Date of Service: 12/23/24 ?? Procedure(s): XR shoulder RT min 2V ?? Accession Number(s): [id number] ? cc: Diomedes Shultz; Shalonda Coley MD [...] DD/ 1509 ? TD/TT: 12/23/24 1533 ? Sld Teacher: ? Procedure Note Chin Diana - 12/23/[address] [address] XRay Report Signed Patient: Diana Myles LMR#: [id number] 8 : 1965Acct:[id number] Age/Sex: 59 / FADM Date: 12/23/24 Loc: HO.ED Attending Dr: Ordering Physician: Diomedes Shultz Date of Service: 12/23/24 Procedure(s): XR shoulder RT min 2V Accession Number(s): [id number] cc: Diomedes Shultz; Shalonda Coley MD EXAMINATION: [...] 12/23/24 1540 DD/ 1509 TD/TT: 12/23/24 1533 Sld Teacher: [facility] External Provider IMG XR PROCEDURES Final Result * XR Hips Bilateral with Pelvis 1 view (12/23/2024 2:57 PM EST) Anatomical Region Laterality Modality Lower Extremities, Hip Bilateral Radiograp hic Imaging 12/23/2024 2:57 PM EST Narrative 12/23/2024 3:45 PM EST ? [facility] ?[address] ?[place] [address] ?XRay Report ? Signed ? Patient: Myles,Diana L ?MR#: [id number] ?? 8 ? : 1965 ?Acct:[id number] ? Age/Sex: 59 / F ?ADM Date: 02/21/25 ? Loc: HO.ED ? Attending Dr: ? Ordering Physician: Diomedes Shultz ?? Date of Service: 12/23/24 ?? Procedure(s): XR hip BI w PEL1V ?? Accession Number(s): [id number] ? cc: Diomedes Shultz; Shalonda Coley MD [...] DD/ 1457 ? TD/TT: 12/23/24 1533 ? Sld Teacher: ? Procedure Note Donmiguelter, Image - 12/23/2024 [place] [address] XRay Report Signed Patient: Diana Myles LMR#: [id number] 8 : 1965Acct:[id number] Age/Sex: 59 / FADM Date: 12/23/24 Loc: HO.ED Attending Dr: Ordering Physician: Diomedes Shultz Date of Service: 12/23/24 Procedure(s): XR hip BI w PEL1V Accession Number(s): [id number] cc: Diomedes Shultz; Shalonda Coley MD EXAMINATION: [...] 12/23/24 1543 DD/ 1457 TD/TT: 12/23/24 1533 Sld Teacher: [facility] External Provider IMG XR PROCEDURES Final Result * XR Knee 4+ Views Right (12/23/2024 2:57 PM EST) Anatomical Region Laterality Modality Lower Extremities, Knee Right Radiogra phic Imaging 12/23/2024 2:57 PM EST Narrative 12/23/2024 3:44 PM EST ? [facility] ?[address] ?[place] [address] ?XRay Report ? Signed ? Patient: Myles,Diana L ?MR#: [id number] ?? 8 ? : 1965 ?Acct:[id number] ? Age/Sex: 59 / F ?ADM Date: 12/23/24 ? Loc: HO.ED ? Attending Dr: ? Ordering Physician: Diomedes Shultz ?? Date of Service: 12/23/24 ?? Procedure(s): XR knee RT 4V ?? Accession Number(s): [id number] ? cc: Diomedes Shultz; Shalonda Coley MD [...] DD/ 1457 ? TD/TT: 12/23/24 1533 ? Sld Teacher: ? Procedure Note Donlinda, Image - 12/23/2024 [place] [address] XRay Report Signed Patient: Diana Myles LMR#: [id number] 8 : 1965Acct:[id number] Age/Sex: 59 / FADM Date: 12/23/24 Loc: HO.ED Attending Dr: Ordering Physician: Diomedes Shultz Date of Service: 12/23/24 Procedure(s): XR knee RT 4V Accession Number(s): [id number] cc: Diomedes Shultz; Shalonda Coley MD EXAMINATION: [...] 12/23/24 1541 DD/ 1457 TD/TT: 12/23/24 1533 Sld Teacher: [facility] External Provider IMG XR PROCEDURES Final Result * BI Mammogram Screening Tomosynthesis Bilateral (11/29/2024 8:45 AM EST) Anatomical Region Laterality Modality Breast Bilateral Mammography 11/29/2024 8:45 AM EST Narrative 12/07/2024 3:35 PM EST ? [place] [facility] ? [address] ?[place] [address] ? Mammography Report ? Signed ? Patient: Myles,Diana L ?MR#: [id number] ?? 8 ? : 1965 ?Acct:[id number] ? Age/Sex: 59 / F ?ADM Date: 11/29/24 ? Loc: HO.MAMMO ? Attending Dr: Shalonda Coley MD ? Ordering Physician: Shalonda Coley MD ?Results: 2Be ?? nign Findings ? Date of Service: 11/29/24 ?Follow Up: 1 Year From Orig ?? inal Mammogram ? Procedure(s): MM tomosynthesis screening BI ?? Accession Number(s): [id number] ? cc: Shalonda Coley MD ? EXAMINATION: [...] DD/ 0845 ? TD/TT: 11/29/24 0915 ? Sld Teacher: ? Procedure Note Chin Diana - 12/07/2024 [facility] [address] [place] [address] Mammography Report Signed Patient: Diana Myles LMR#: [id number] 8 : 1965Acct:[id number] Age/Sex: 59 / FADM Date: 11/29/24 Loc: HO.MAMMO Attending Dr: Shalonda Coley MD Ordering Physician: Shalonda Coley MDResults: 2Be nign Findings Date of Service: 11/29/24Follow Up: 1 Year From Orig community [facility] Mammogram Procedure(s): MM tomosynthesis screening BI Accession Number(s): [id number] cc: Shalonda Coley MD EXAMINATION: MM SCREENING [...] DO 12/07/2024 03:32 PM EST RP Workstation: [employer] Dictated By: Chaparrita Lyn DO Signed By: <Electronically signed by Chaparrita Lyn DO in OV> 12/07/24 1532 DD/ 0845 TD/TT: 11/29/24 0915 Sld Teacher: Shalonda Coley MD IMG BI PROCEDURES Edited Result - Final * (ABNORMAL) Colonoscopy (07/30/2023) Colonoscopy Abnormal( A) Normal [facility] Comment:SSL polyp Shalonda Coley MD HEALTH MAINTENANCE Final Result [facility] [address] [place] [address] [phone] * Thinprep PAP and HPV nRNA E6/E7 (10/08/2022 9:30 AM EST) Clinical Information: None given [facility] LMP: NONE GIVEN [facility] Prev. PAP: NONE GIVEN [facility] Prev. BX: NONE GIVEN [facility] SOURCE: None given [facility] Statement Of Adequacy: SATISFACTORY FOR EVALUATION Age and/or menstrual status not provided [facility] Interpretation/Re sult: [facility] Comment: Negative for intraepithelial lesion or malignancy. Atrophic pattern; predominantly parabasal cells Floor Refinisher: [employer] [place] [facility] Comment: DMM, CT(ASCP) CT screening location: [address] ??[address] Review Floor Refinisher: [employer] [place] [facility] Comment: MAA, CT(ASCP) CT screening location: [address] ??[address] (Always Message) [employer] Comment: EXPLANATORY NOTE: The Pap is a [...] HPV nRNA E6/E7 Not Detected Not Detected [employer] Comment: Methodology: Isolation Washer-Mediated Amplification This assay detects E6/E7 viral messenger RNA (mRNA) from 14 high-risk HPV types (16,18,31,33,35,39,45,51,52,56,58,59,66,68). Cervical sources are required for HPV testing. If a vaginal source from a patient who has had a total hysterectomy with removal of cervix was submitted, please contact the testing laboratory for alternative testing options. For additional information, please refer to http://education.ShopRunner/faq/AQA781r8 (This link if provided for information/ educational purposes only.) 10/08/2022 9:30 AM EST 10/10/2022 1:07 AM EST Narrative [facility] - 10/14/2022 7:08 PM EST FASTING: UNKNOWN us [facility] PATHOLOGY ORDERABLES Final Result [facility] [address] [place] [address], [place] [address] [employer] [place] [facility] [address] [place] [address], [place] [address] * HIV AB/AG (04/30/2022 11:28 AM EDT) HIV AB/AG Nonreactive Nonreactive [facility] Comment: HIV-1 p24 [...] detection of this assay. ?? [employer] Therapist HIV Ag/Ab Combo assay result and supplemental [...] [facility] [address] from Last 3 Months or Most Recently Relevant to Health Maintenance Insurance [facility] C[place] ST[facility] ADULT Care Teams Licensed Acupuncturist Relationship Specialty Start Date End Date Shalonda Coley MD [address] [place] [address] PCP - General Family Medicine 10/31/16 [place], BEBA [address] [place] [address] [place] [address] Gluer Machine OperatorChemist Enzymes 01/12/25
--- OUTSIDE RECORDS SUMMARY | 2025-03-14 15:37 | XMS_ITS | Encounter Summary ---
Author Organization [facility] Address [address] [place] [address] 7t [place] [address] Care Team Providers Care Shift Mgr Name Role Phone Umm Coley MD Primary Care Provider + [place] RN Unavailable [phone] Encounter Details Date Type Department Care Team (Latest Contact Info) Description 03/13/2022 Abstract [facility] CONVERSIONS Dental, Provider, DDS Social History [...] 2:00 PM EDT Office Visit [facility] ADULT DENTAL [address] [place] [address] Yovani Fountain 05/02/2025 10:30 AM EDT Office Visit [facility] MEDICINE [address] [place], [place] [phone] Umm Coley MD [address] [place], [place] [phone] documented as of this encounter Visit Diagnoses Not on filedocumented in this encounter Care Teams Shift Mgr Relationship Specialty Start Date End Date Umm oCley MD [address] [place] [address] PCP - General Family Medicine 10/31/16 [place], RN [address] [facility] [place] [address] Extension SupervisorCar Mechanic Helper 01/12/25 Eva Nunez Extension Supervisor 04/05/24 07/06/24 [facility] 05/11/24 11/17/24 [facility] 11/14/24 01/17/25 [employer] 12/08/24 documented as of this encounter
--- OUTSIDE RECORDS SUMMARY | 2025-03-14 15:37 | XMS_ITS | Encounter Summary ---
Author Organization [employer] Address [address] [facility] 7t [place] [address] Care Team Providers Care Vice President Of Business Development Name Role Phone Umm Coley MD Primary Care Provider + [place] RN Unavailable [phone] Reason for Visit * Reason Comments Med Refill Encounter Details Date Type Department Care Team ([facility] Contact Info) Description 02/05/2023 Refill [facility] MEDICINE [address] [place] [address] Umm Coley MD [address] [place], [place] [phone] Arthritis of knee Social History Tobacco Use [...] Upcoming Encounters Date Type Department Care Team ([facility] Contact Info) Description 03/24/2025 2:00 PM EDT Office Visit [facility] CHC ADULT DENTAL [address] [place] [address] Yovani Fountain 05/02/2025 10:30 AM EDT Office Visit [facility] MEDICINE [address] [place] [address] Umm Coley MD [address] [place] [address] documented as of this encounter Visit Diagnoses Diagnosis Arthritis of knee Unspecified arthropathy, lower leg documented in this encounter Care Teams Vice President Of Business Development Relationship Specialty Start Date End Date Umm Coley MD [address] [place] [address] PCP - General Family Medicine 10/31/16 [place], BEBA [address] [place] [address] Project AccountantFuel Manager 01/12/25 Eva Nunez Project Accountant 04/05/24 07/06/24 [facility] 05/11/24 11/17/24 [facility] 11/14/24 01/17/25 [employer] 12/08/24 documented as of this encounter
--- OUTSIDE RECORDS SUMMARY | 2025-03-14 15:37 | XMS_ITS | Encounter Summary ---
Author Organization [facility] Address [address] [place] [address] [address] [place] [address] Care Team Providers Care Microfiche Camera Operator Name Role Phone Umm Coley MD Primary Care Provider + [place] RN Unavailable [phone] Encounter Details Date Type Department Care Team (Late st Contact Info) Description 09/24/2022 Abstract [facility] ADULT DENTAL [address] [place], [place] [phone] Dental, Provider, DDS Social History Tobacco Use [...] 2:00 PM EDT Office Visit [facility] AD[facility] [address] [place] [address] Yovani Fountain 05/02/2025 10:30 AM EDT Office Visit [facility] MEDICINE [address] [place], [place] [phone] Umm Coley MD [address] [place] [address] documented as of this encounter Procedures Procedure [...] on filedocumented in this encounter Care Teams Microfiche Camera Operator Relationship Specialty Start Date End Date Umm Coley MD [address] [place] [address] PCP - General Family Medicine 10/31/16 [place] RN [address] [place] [address] Education Finance ProcessorAssistant Professor Of Archaeology 01/12/25 Eva Nunez Education Finance Processor 04/05/24 07/06/24 [facility] 05/11/24 11/17/24 [facility] 11/14/24 01/17/25 [employer] [facility] 12/08/24 documented as of this encounter
== END 2025-03-14 13:46 | disposition home or self-care (01) ==
LOC: HO.HOSX 13:45
PROVIDERS: PCP Internal Medicine
DX: M25.531 Pain in right wrist (principal); S52.501A Unspecified fracture of the lower end of right radius, initial encounter for closed fracture
CPT/HCPCS: 73110; 99212

== ENCOUNTER 2025-03-14 13:45 | Outpatient (AMB) | payer MEDICAID, SELFPAY ==
[2025-03-14 13:57] VITALS: BMI 21.5
--- NOTE | 2025-03-14 13:57 | A.OFFVIS_ITS ---
Vital Signs 03/14/25 13:57 Height 5 ft Weight 110 lb BMI 21.5 Intake Visit Reasons: PO: Rt wrist ORIF/Rt CTR DOS 01/02/25 Intake Note: Diana is a 60 year old female who presents today for a post operative right wrist ORIF/CTR on 01/02/[address] [place]. Patient reports her pain is on and off. She has complaints of increased swelling and limited ROM. Today her hand looks red. States her right hand knuckles are swollen, mostly her thumb that she believes is from an RA flare up. Allergies codeine [CODEINE] Allergy (Intermediate, Verified 03/14/25 14:04) DIZZY/NAUSEA, nausea/vomiting escitalopram [From LEXAPRO] Allergy (Intermediate, Verified 03/14/25 14:04) ? NAUSEA meperidine [MEPERIDINE] Allergy (Intermediate, Verified 03/14/25 14:04) NAUSEA morphine [MORPHINE] Allergy (Intermediate, Verified 03/14/25 14:04) PALPITATIONS, palpitation oxycodone [OXYCODONE] Allergy (Intermediate, Verified 03/14/25 14:04) PALPATATIONS, palpitations tramadol Allergy (Unknown, Verified 03/14/25 14:04) dizziness, nausea HPI HPI PO: Rt wrist ORIF/Rt CTR DOS 01/02/25: Details: Diana is a 60 year old female who presents today for a post operative right wrist ORIF/CTR on 01/02/[address] Cleveland. Patient reports her pain is on and off. She has complaints of increased swelling and limited ROM. Today her hand looks red. States her right hand knuckles are swollen, mostly her thumb that she believes is from an arthritis flare up. [facility] Medical History (Updated 02/17/25 @ 15:38 by REINA Barrios) Primary osteoarthritis of right hand Migraine Right shoulder pain Rotator cuff tendinitis Arthritis of right shoulder region Right hand pain Breast cancer, right Status post radiation therapy Anemia Diarrhea Depression Somatization disorder Migraine equivalent syndrome Anxiety Periodontal disease Fibromyalgia Surgical History History of esophagogastroduodenoscopy (EGD) History of lumpectomy Hx of section Hx of shoulder surgery Hx of colonoscopy Family History Mother HTN (hypertension) Sister Breast cancer Bone cancer Colon polyps Sister Osteoporosis Hypercholesteremia Colon polyps Social History Household Members: None Housing: Apartment Are you a primary healthcare facility administrator to a significant other at home: No Do you presently have visiting nurse or other home services: No Alcohol intake: never Patient Tobacco Use Status: Former Tobacco user Years Smoked: 3 service: No Current occupational status: disabled 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 Review of Systems Const All systems reviewed & are unremarkable except as noted in HPI and below Physical Exam Vital Signs: BMI result Body Mass Index 21.5 Extrem Other: Incision sites on R wrists well approximated, well healing, no evidence of infection No evidence of surrounding erythema However, there is erythema noted on the dorsal radial styloid and ulnar styloid, improved from last visit Ecchymosis resolved Patient does experience significant stiffness in the digits of the right hand, but the patient states that this is present long before surgery Patient was only able to supinate to approximately 30 degrees past neutral, pronation almost full and intact Compartments soft, nontender Distal sensation intact Capillary refill brisk Results Reviewed Results Reviewed: X-rays obtained in the office today and independently reviewed by me, Zhou Sosa PA-C, demonstrate surgically reduced fracture of the right distal radius with orthopedic hardware in satisfactory clinical alignment and with evidence of interval bony healing. Assessment & Plan Assessment & Plan (1) Fracture of right distal radius: Code(s): S52.501A - Unspecified fracture of the lower end of right radius, initial encounter for closed fracture Category: Medical Plan 1. Status post right distal radius ORIF DOS 01/02/2025 Patient appears to be recovering postoperatively Patient is educated typical recovery course This time, patient advised that she should only wear the Velcro wrist splint when she is leaving house Patient was advised she should remove the splint while at rest to begin working on gentle range of motion of the right wrist and hand Due to the nature of the patient's significant stiffness, I have also placed a referral to occupational therapy for early range of motion and gentle strengthening of the right wrist with a 5 lb weight limit, as I feel this would benefit the patient tremendously, as I am not sure she is working on range of motion at home adequately Patient was amenable to this plan Orders: Orders XR wrist RT min 3V Today M25.531 - Pain in right wrist Coding Level of Care Code Global (02697) Diagnoses Fracture of right distal radius S52.501A
--- OUTSIDE RECORDS SUMMARY | 2025-03-14 14:54 | XMS_ITS | Encounter Summary ---
Author Organization [employer] Address [address] [facility] [address] [place] [address] Care Team Providers Care Systems Software Engineer Name Role Phone Umm Coley MD Primary Care Provider + West Meier RN Unavailable [phone] Encounter Details Date Type Department Care Team (Late st Contact Info) Description 11/03/2022 Orders Only [facility] MEDICINE [address] [place], [place] [phone] Umm Coley MD [address] [place], [place] [phone] Osteopenia after menopause (Primary Dx) Social History [...] Care Team (Late st Contact Info) Description 03/24/2025 2:00 PM EDT Office Visit [facility] ADULT DENTAL [address] [place] [address] Armenleydi Yovani 05/02/2025 10:30 AM EDT Office Visit [facility] MEDICINE [address] [place] [address] Umm Coley MD [address] [place] [address] Scheduled Orders Name Type Priority Associated Diagnoses Orde r Schedule Vitamin D, 25-Hydroxy, Total, Immunoassay Lab Routine Osteopenia after menopause Expected: 11/03/2022 (Approximate), Expires: 11/03/2023 PTH, Intact (ICMA) And Ionized Calcium Lab Routine Osteopenia after menopause Expected: 11/03/2022 (Approximate), Expires: 11/03/2023 documented as of this encounter Visit Diagnoses Diagnosis Osteopenia after menopause- Primary documented in this encounter Care Teams Systems Software Engineer Relationship Specialty Start Date End Date Umm Coley MD [address] [place] [address] PCP - General Family Medicine 10/31/16 West Meier, RN [address] [place] [address] Engineering LibrarianMandate Retail Service Merchandiser 01/12/25 Eva Nunez Engineering Librarian 04/05/24 07/06/24 [facility] 05/11/24 11/17/24 [facility] 11/14/24 01/17/25 [employer] 12/08/24 documented as of this encounter
--- OUTSIDE RECORDS SUMMARY | 2025-03-14 14:54 | XMS_ITS | Clinical Summary ---
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 Age/Sex: 59 / F ?ADM Date: 12/23/24 ? Loc: HO.ED ? Attending Dr: ? Ordering Physician: Diomedes Shultz ?? Date of Service: 12/23/24 ?? Procedure(s): CT head/brain wo IV con ?? Accession Number(s): [id number] ? cc: Diomedes Suhltz; Shalonda Coley MD ? Report Number: ?? [id number]: Total DLP = ??821.00 mGy-cm ?? EXAMINATION: [...] Lepe MD ??12/23/2024 04:51 PM EST RP ?? Workstation: [id number] ? Dictated By: ?Mathieu Lepe MD ? Signed By: ?<Electronically signed by Mathieu Lepe MD in OV> ?12/23/24 1651 ? DD/ 1642 ? TD/TT: 12/23/24 1642 ? [employer]: ? Procedure Note Donotuseinterpreter, Image - 12/23/[address] [place] [address] [address] Scan Report Signed Patient: Diana Myles LMR#: [id number] 8 : 1965Acct:[id number] Age/Sex: 59 / FADM Date: 12/23/24 Loc: HO.ED Attending Dr: Ordering Physician: Diomedes Shultz Date of Service: 12/23/24 Procedure(s): CT head/brain wo IV con Accession Number(s): [id number] cc: Diomedes Shultz; Shalonda Coley MD Report Number: [id number]: Total DLP = 821.00 mGy-cm EXAMINATION: CT [...] 12/23/24 1651 DD/ 1642 TD/TT: 12/23/24 1642 [employer]: [facility] External Provider IMG CT PROCEDURES Final Result * CT Cervical Spine w/o Contrast (12/23/2024 3:29 PM EST) Anatomical Region Laterality Modality Spine, C-spine Computed Tomogra phy 12/23/2024 3:29 PM EST Narrative 12/23/2024 4:57 PM EST ? [facility] ?[address] ?[place] [address] ? CT Scan Report ? Signed ? Patient: Myles,Diana L ?MR#: [id number] ?? 8 ? : 1965 ?Acct:[id number] ? Age/Sex: 59 / F ?ADM Date: 12/23/24 ? Loc: HO.ED ? Attending Dr: ? Ordering Physician: Diomedes Shultz ?? Date of Service: 12/23/24 ?? Procedure(s): CT cervical spine wo IV con ?? Accession Number(s): [id number] ? cc: Diomedes Shultz; Shalonda Coley MD ? Report Number: ?? [id number]: Total DLP = ??821.00 mGy-cm ?? EXAMINATION: [...] ??12/23/2024 04:54 PM EST RP ?? Workstation: [id number] ? Dictated By: ?Mathieu Lepe MD ? Signed By: ?<Electronically signed by Mathieu Lepe MD in OV> ?12/23/24 1654 ? DD/ 1529 ? TD/TT: 12/23/24 1642 ? [employer]: ? Procedure Note Chin Diana - 12/23/[address] [address] [address] Scan Report Signed Patient: Diana Myles LMR#: [id number] 8 : 1965Acct:[id number] Age/Sex: 59 / FADM Date: 12/23/24 Loc: HO.ED Attending Dr: Ordering Physician: Diomedes Shultz Date of Service: 12/23/24 Procedure(s): CT cervical spine wo IV con Accession Number(s): [id number] cc: Diomedes Shultz; Shalonda Coley MD Report Number: [id number]: Total DLP = 821.00 mGy-cm EXAMINATION: CT [...] by: Mathieu Lepe MD 12/23/2024 04:54 PM [facility] Dictated By: Mathieu Lepe MD Signed By: <Electronically signed by Mathieu Lepe MD in OV> 12/23/24 5404 DD/ 1529 TD/TT: 12/23/24 1642 [employer]: [facility] External Provider IMG CT PROCEDURES Final Result * XR Shoulder 2+ Views Right (12/23/2024 3:09 PM EST) Anatomical Region Laterality Modality Upper Extremities, Shoulder Right Radi ographic Imaging 12/23/2024 3:09 PM EST Narrative 12/23/2024 3:43 PM EST ? [facility] ?[address] ?[place] [address] ?XRay Report ? Signed ? Patient: Myles,Diana L ?MR#: [id number] ?? 8 ? : 1965 ?Acct:[id number] ? Age/Sex: 59 / F ?ADM Date: 12/23/24 ? Loc: HO.ED ? Attending Dr: ? Ordering Physician: Diomedes Shultz ?? Date of Service: 12/23/24 ?? Procedure(s): XR shoulder RT min 2V ?? Accession Number(s): [id number] ? cc: Diomedes Shultz; Shalonda Coley MD [...] DD/ 1509 ? TD/TT: 12/23/24 1533 ? [employer]: ? Procedure Note Chin Diana - 12/23/[address] [address] XRay Report Signed Patient: Diana Myles LMR#: [id number] 8 : 1965Acct:[id number] Age/Sex: 59 / FADM Date: 12/23/24 Loc: HO.ED Attending Dr: Ordering Physician: Diomedes Shultz Date of Service: 12/23/24 Procedure(s): XR shoulder RT min 2V Accession Number(s): [id number] cc: Diomedes Shultz; Shalonda Coley MD EXAMINATION: [...] 12/23/24 1540 DD/ 1509 TD/TT: 12/23/24 1533 [employer]: [facility] External Provider IMG XR PROCEDURES Final Result * XR Hips Bilateral with Pelvis 1 view (12/23/2024 2:57 PM EST) Anatomical Region Laterality Modality Lower Extremities, Hip Bilateral Radiograp hic Imaging 12/23/2024 2:57 PM EST Narrative 12/23/2024 3:45 PM EST ? [facility] ?[address] ?[place] [address] ?XRay Report ? Signed ? Patient: Myles,Diana L ?MR#: [id number] ?? 8 ? : 1965 ?Acct:[id number] ? Age/Sex: 59 / F ?ADM Date: 02/21/25 ? Loc: HO.ED ? Attending Dr: ? Ordering Physician: Diomedes Shultz ?? Date of Service: 12/23/24 ?? Procedure(s): XR hip BI w PEL1V ?? Accession Number(s): [id number] ? cc: Diomedes Shultz; Shalonda Coley MD [...] DD/ 1457 ? TD/TT: 12/23/24 1533 ? [employer]: ? Procedure Note Donmiguelter, Image - 12/23/2024 [place] [address] XRay Report Signed Patient: Diana Myles LMR#: [id number] 8 : 1965Acct:[id number] Age/Sex: 59 / FADM Date: 12/23/24 Loc: HO.ED Attending Dr: Ordering Physician: Diomedes Shultz Date of Service: 12/23/24 Procedure(s): XR hip BI w PEL1V Accession Number(s): [id number] cc: Diomedes Shultz; Shalonda Coley MD EXAMINATION: [...] 12/23/24 1543 DD/ 1457 TD/TT: 12/23/24 1533 [employer]: [facility] External Provider IMG XR PROCEDURES Final Result * XR Knee 4+ Views Right (12/23/2024 2:57 PM EST) Anatomical Region Laterality Modality Lower Extremities, Knee Right Radiogra phic Imaging 12/23/2024 2:57 PM EST Narrative 12/23/2024 3:44 PM EST ? [facility] ?[address] ?[place] [address] ?XRay Report ? Signed ? Patient: Myles,Diana L ?MR#: [id number] ?? 8 ? : 1965 ?Acct:[id number] ? Age/Sex: 59 / F ?ADM Date: 12/23/24 ? Loc: HO.ED ? Attending Dr: ? Ordering Physician: Diomedes Shultz ?? Date of Service: 12/23/24 ?? Procedure(s): XR knee RT 4V ?? Accession Number(s): [id number] ? cc: Diomedes Shultz; Shalonda Coley MD [...] DD/ 1457 ? TD/TT: 12/23/24 1533 ? [employer]: ? Procedure Note Donlinda, Image - 12/23/2024 [place] [address] XRay Report Signed Patient: Diana Myles LMR#: [id number] 8 : 1965Acct:[id number] Age/Sex: 59 / FADM Date: 12/23/24 Loc: HO.ED Attending Dr: Ordering Physician: Diomedes Shultz Date of Service: 12/23/24 Procedure(s): XR knee RT 4V Accession Number(s): [id number] cc: Diomedes Shultz; Shalonda Coley MD EXAMINATION: [...] 12/23/24 1541 DD/ 1457 TD/TT: 12/23/24 1533 [employer]: [facility] External Provider IMG XR PROCEDURES Final Result * BI Mammogram Screening Tomosynthesis Bilateral (11/29/2024 8:45 AM EST) Anatomical Region Laterality Modality Breast Bilateral Mammography 11/29/2024 8:45 AM EST Narrative 12/07/2024 3:35 PM EST ? [facility] ? [address] ?[place] [address] ? Mammography Report ? Signed ? Patient: Myles,Diana L ?MR#: [id number] ?? 8 ? : 1965 ?Acct:[id number] ? Age/Sex: 59 / F ?ADM Date: 11/29/24 ? Loc: HO.MAMMO ? Attending Dr: Shalonda Coley MD ? Ordering Physician: Shalonda Coley MD ?Results: 2Be ?? nign Findings ? Date of Service: 11/29/24 ?Follow Up: 1 Year From Orig ?? inal Mammogram ? Procedure(s): MM tomosynthesis screening BI ?? Accession Number(s): [id number] ? cc: Shalonda Coley MD ? EXAMINATION: [...] DD/ 0845 ? TD/TT: 11/29/24 0915 ? [employer]: ? Procedure Note Chin Diana - 12/07/2024 [facility] [address] [place] [address] Mammography Report Signed Patient: Diana Myles LMR#: [id number] 8 : 1965Acct:[id number] Age/Sex: 59 / FADM Date: 11/29/24 Loc: HO.MAMMO Attending Dr: Shalonda Coley MD Ordering Physician: Shalonda Coley MDResults: 2Be nign Findings Date of Service: 11/29/24Follow Up: 1 Year From Orig [facility] Mammogram Procedure(s): MM tomosynthesis screening BI Accession Number(s): [id number] cc: Shalonda Coley MD EXAMINATION: MM SCREENING [...] Chaparrita Lyn DO 12/07/2024 03:32 PM EST RP Workstation: [email or web address] Dictated By: Chaparrita Lyn DO Signed By: <Electronically signed by Chaparrita Lyn DO in OV> 12/07/24 1532 DD/ 0845 TD/TT: 11/29/24 0915 [employer]: Shalonda Coley MD IMG BI PROCEDURES Edited Result - Final * (ABNORMAL) Colonoscopy (07/30/2023) Colonoscopy Abnormal( A) Normal [facility] Comment:SSL polyp Shalonda Coley MD HEALTH MAINTENANCE Final Result [facility] [address] [place] [address] [phone] * Thinprep PAP and HPV nRNA E6/E7 (10/08/2022 9:30 AM EST) Clinical Information: None given [facility] LMP: NONE GIVEN [facility] Prev. PAP: NONE GIVEN [facility] Prev. BX: NONE GIVEN [facility] SOURCE: None given [facility] Statement Of Adequacy: SATISFACTORY FOR EVALUATION Age and/or menstrual status not provided [facility] Interpretation/Re sult: [facility] Comment: Negative for intraepithelial lesion or malignancy. Atrophic pattern; predominantly parabasal cells Employment Officer: [employer] Comment: DMM, CT(ASCP) CT screening location: [address] ??[address] Review Employment Officer: [employer] Comment: MAA, CT(ASCP) CT screening location: [address] ??[address] (Always Message) [employer] Comment: EXPLANATORY NOTE: The Pap is a [...] HPV nRNA E6/E7 Not Detected Not Detected [employer] Comment: Methodology: Goldsmith Apprentice-Mediated Amplification This assay detects E6/E7 viral messenger RNA (mRNA) from 14 high-risk HPV types (16,18,31,33,35,39,45,51,52,56,58,59,66,68). Cervical sources are required for HPV testing. If a vaginal source from a patient who has had a total hysterectomy with removal of cervix was submitted, please contact the testing laboratory for alternative testing options. For additional information, please refer to http://education.Nanoogo/faq/CUO979y7 (This link if provided for information/ educational purposes only.) 10/08/2022 9:30 AM EST 10/10/2022 1:07 AM EST Narrative [facility] - 10/14/2022 7:08 PM EST FASTING: UNKNOWN us Shauna [facility] PATH[facility] ORDERABLES Final Result [facility] [address] [place] [address], [place] [address] [employer] [address] [place] [address], [place] [address] * HIV AB/AG (04/30/2022 11:28 AM EDT) [...] detection of this assay. ?? The [employer] HIV Ag/Ab Combo assay result and supplemental [...] [facility] [address] from Last 3 Months or Most Recently Relevant to Health Maintenance Insurance [facility] [place] [facility] STAND ADULT Care Teams Executive Chairman Relationship Specialty Start Date End Date Shalonda Coley MD [address] [place] [address] PCP - General Family Medicine 10/31/16 [place], BEBA [address] [place] [address] [place] [address] Furniture TechnicianTrashman 01/12/25
--- OUTSIDE RECORDS SUMMARY | 2025-03-14 14:54 | XMS_ITS | Encounter Summary ---
Author Organization [employer] [facility] Address [address] [place] [address] 7t [place] [address] Care Team Providers Care Station Installation Supervisor Name Role Phone Umm Coley MD Primary Care Provider + [place] RN Unavailable [phone] Encounter Details Date Type Department Care Team (Late st Contact Info) Description 09/24/2022 Abstract [facility] ADULT DENTAL [address] [place], [place] [phone] Dental, Provider, DDS Social History Tobacco Use [...] Department Care Team (Late Contact Info) Description 03/24/2025 2:00 PM EDT Office Visit [facility] ADULT DENTAL [address] [place] [address] Yovani Fountain 05/02/2025 10:30 AM EDT Office Visit [facility] MEDICINE [address] [place], [place] [phone] Umm Coley MD [address] [place] [address] documented as of this encounter Procedures Procedure [...] filedocumented in this encounter Care Teams Station Installation Supervisor Relationship Specialty Start Date End Date Umm Coley MD [address] [place] [address] PCP - General Family Medicine 10/31/16 [place] RN [address] [place] [address] Grocery CaddyAirbrush Artist Photography 01/12/25 Eva Nunez Grocery Caddy 04/05/24 07/06/24 [facility] 05/11/24 11/17/24 [employer] [facility] 11/14/24 01/17/25 [email or web address] 12/08/24 documented as of this encounter
--- OUTSIDE RECORDS SUMMARY | 2025-03-14 14:54 | XMS_ITS | Encounter Summary ---
Author Organization [employer] [facility] Address [address] [place] [address] 7t [place] [address] Care Team Providers Care Finisher Accordion Name Role Phone Umm Coley MD Primary Care Provider + [place] RN Unavailable [phone] Encounter Details Date Type Department Care Team [...] Description 03/24/2025 2:00 PM EDT Office Visit [facility] ADULT DENTAL [address] [place] [address] Yovani Fountain 05/02/2025 10:30 AM EDT Office Visit [facility] MEDICINE [address] [place], [place] [phone] Umm Coley MD [address] [place], [place] [phone] documented as of this encounter Visit Diagnoses Not on filedocumented in this encounter Care Teams Finisher Accordion Relationship Specialty Start Date End Date Umm Coley MD [address] [place] [address] PCP - General Family Medicine 10/31/16 [place], RN [address] [facility] [place] [address] Louver Door AssemblerCore Sucker 01/12/25 Eva Nunez Louver Door Assembler 04/05/24 07/06/24 [facility] 05/11/24 11/17/24 [facility] 11/14/24 01/17/25 [employer] 12/08/24 documented as of this encounter
--- OUTSIDE RECORDS SUMMARY | 2025-03-14 14:54 | XMS_ITS | Encounter Summary ---
Author Organization [employer] Address [address] [facility] 7t [place] [address] Care Team Providers Care Drop Wire Stringer Name Role Phone Umm Coley MD Primary Care Provider + [place] RN Unavailable Reason for Visit * Reason Onset Date Comments Care Management 03/13/2025 C3CM- F/U call ( 3rd attempt) Encounter Details Date Type Department Care Team ([facility] st Contact Info) Description 03/13/2025 Telephone [facility] MEDICINE [address] [place], [place] [phone] Umm Coley MD [address] [place], [place] [phone] Care Management (C3CM- F/U call (3rd attempt)) Social History Tobacco Use Types Packs/Day Years [...] Telephone Encounter - [place] RN - 03/13/2025 2:09 PM EDT Per PCP: Yes, please see if we can set up a zoom or teleconference. Im available most Tuesdays to Fridays 2-4pm, let me know if there's anything else I need to do, maybe we can set it up via email so each of us can look at our schedules? Thank you for all what you do. This CM sent Barb from [facility] a fax requesting to schedule above meeting with both providers. Received fax confirmation. Awaiting for either a call or a fax back. * Telephone Encounter - [place] RN - 03/13/2025 2:03 PM EDT CM [place] RN placed outbound call for follow up call. No answer at this time. LVM introducing myself from [facility] CM Department. Requested call back. CM reinforced direct contactinformation for any additional questions or concerns. Education provided on [facility] Ur[facility] Care located in [facility]. Patient provided with after-hours line for [facility], , which offer night time triage service and option to transfer to law firm consultant provider if needed. CM will attempt another follow up call within 10 days. documented in this encounter Plan of Treatment Upcoming Encounters Date Type Department Care Team (Late st Contact Info) Description 03/24/2025 2:00 PM EDT Office Visit [facility] ADULT DENTAL [address] [place] [address] Yovani Fountain 05/02/2025 10:30 AM EDT Office Visit [facility] MEDICINE [address] [place] [address] Umm Coley MD [address] [place] [address] documented as of this encounter Visit Diagnoses Not on filedocumented in this encounter Additional Health Concerns Assessment Noted Time PHQ-9 Depression Total Score: 10 024 9:17 AM EDT documented as of this encounter Care Teams Drop Wire Stringer Relationship Specialty Start Date End Date Umm Coley MD [address] [place] [address] PCP - General Family Medicine 10/31/16 [place] RN [address] [place] [address] Break Out ManYarrow Gatherer 01/12/25 documented as of this encounter
--- OUTSIDE RECORDS SUMMARY | 2025-03-14 14:54 | XMS_ITS | Encounter Summary ---
Author Organization [employer] [facility] Address [address] [place] [address] 7t [place] [address] Care Team Providers Care Academic Services Professional Name Role Phone Umm Coley MD Primary Care Provider + [place] RN Unavailable [phone] Encounter Details Date Type Department Care Team (Latest Contact Info) Description 09/16/2022 Abstract [facility] Dental, Provider, DDS Social History [...] Description 03/24/2025 2:00 PM EDT Office Visit [facility] ADULT DENTAL [address] [place] [address] Yovani Fountain 05/02/2025 10:30 AM EDT Office Visit [facility] MEDICINE [address] [place], [place] [phone] Umm Coley MD [address] [place], [place] [phone] documented as of this encounter Visit Diagnoses Not on filedocumented in this encounter Care Teams Academic Services Professional Relationship Specialty Start Date End Date Umm Coley MD [address] [place] [address] PCP - General Family Medicine 10/31/16 [place], RN [address] [facility] [place] [address] Putty And Patch WorkerDirector Mortgage 01/12/25 Eva Nunez Putty And Patch Worker 04/05/24 07/06/24 [facility] 05/11/24 11/17/24 [facility] 11/14/24 01/17/25 [employer] 12/08/24 documented as of this encounter
--- OUTSIDE RECORDS SUMMARY | 2025-03-14 14:54 | XMS_ITS | Encounter Summary ---
Author Organization [employer] Address [address] [facility] 7t [place] [address] Care Team Providers Care Building Construction Professor Name Role Phone Umm Coley MD Primary Care Provider + [place] RN Unavailable [phone] Reason for Visit * Reason Onset Date Comments appt 01/08/2024 Encounter Details Date Type Department Care Team ([facility] st Contact Info) Description 01/08/2024 Telephone [facility] ADULT DENTAL [address] [place], [place] [phone] Homer Strong, DDS [address] [place], [place] [phone] appt Social History Tobacco Use Types Packs/Day [...] is your housing situation today? I have sylviaherman hester 08/19/[address] you [...] Description 03/24/2025 2:00 PM EDT Office Visit [facility] ADULT DENTAL [address] [place] [address] Yovani Fountain 05/02/2025 10:30 AM EDT Office Visit [facility] MEDICINE [address] [place] [address] Umm Coley MD [address] [place] [address] documented as of this encounter Visit Diagnoses Not on filedocumented in this encounter Additional Health Concerns Assessment Noted Time PHQ-9 Depression Total Score: 21 024 11:31 AM EST documented as of this encounter Care Teams Building Construction Professor Relationship Specialty Start Date End Date Umm Coley MD [address] [place] [address] PCP - General Family Medicine 10/31/16 [place], BEBA [address] [place] [address] Tappet AdjusterRetail Store Assistant 01/12/25 Eva Nunez Tappet Adjuster 04/05/24 07/06/24 [facility] 05/11/24 11/17/24 [facility] 11/14/24 01/17/25 [employer] 12/08/24 documented as of this encounter
--- OUTSIDE RECORDS SUMMARY | 2025-03-14 14:55 | XMS_ITS | Encounter Summary ---
Author Organization [employer] Address 75 [facility] 7t [place] [address] Care Team Providers Care Skidder Loader Name Role Phone Umm Coley MD Primary Care Provider + West Meier RN Unavailable [phone] Reason for Visit * Reason Comments Med Change Request Encounter Details Date Type Department Care Team ([facility] st Contact Info) Description 03/20/2023 Refill [facility] ADULT DENTAL [address] [place] [address] Johnny Gonzalez DMD 505 [place] [address] Social History Tobacco Use Types Packs/Day Years [...] Description 03/24/2025 2:00 PM EDT Office Visit [facility] ADULT DENTAL [address] [place] [address] Yovani Fountain 05/02/2025 10:30 AM EDT Office Visit [facility] MEDICINE 230 [place] [address] Umm Coley MD 230 [place] [address] documented as of this encounter Visit Diagnoses Not on filedocumented in this encounter Care Teams Skidder Loader Relationship Specialty Start Date End Date Umm Coley MD 230 [place] [address] PCP - General Family Medicine 10/31/16 West Meier, BEBA 505 [place] [address] Pipe ThreaderRoad Traffic Controller 01/12/25 Eva Nunez Pipe Threader 04/05/24 07/06/24 [facility] 05/11/24 11/17/24 [facility] 11/14/24 01/17/25 [employer] 12/08/24 documented as of this encounter
--- OUTSIDE RECORDS SUMMARY | 2025-03-14 14:55 | XMS_ITS | Encounter Summary ---
Author Organization [employer] Address 75 [facility] 7t [place] [address] Care Team Providers Care Jackscrew Worker Name Role Phone Umm Coley MD Primary Care Provider + West Meier RN Unavailable Reason for Visit * Reason Onset Date Comments Appointment 03/17/2023 Encounter Details Date Type Department Care Team ([facility] st Contact Info) Description 03/17/2023 Telephone [facility] ADULT DENTAL [address] [place] [address] Johnny Gonzalez, WILIAN 505 [place], [place] [phone] Appointment Social History Tobacco Use Types Packs/Day [...] Description 03/24/2025 2:00 PM EDT Office Visit [facility] ADULT DENTAL 505 [place] [address] Yovani Fountain 05/02/2025 10:30 AM EDT Office Visit [facility] MEDICINE 230 [place] [address] Umm Coley MD 230 [place] [address] documented as of this encounter Visit Diagnoses Not on filedocumented in this encounter Care Teams Jackscrew Worker Relationship Specialty Start Date End Date Umm Coley MD 230 [place] [address] PCP - General Family Medicine 10/31/16 West Meier, BEBA 505 [place] [address] Change AttendantQualitative Researcher 01/12/25 Eva Nunez Change Attendant 04/05/24 07/06/24 [facility] 05/11/24 11/17/24 [facility] 11/14/24 01/17/25 [employer] 12/08/24 documented as of this encounter
--- OUTSIDE RECORDS SUMMARY | 2025-03-14 14:55 | XMS_ITS | Encounter Summary ---
Author Organization [employer] Address 75 [facility] 7t [place] [address] Care Team Providers Care Plant Control Operator Name Role Phone Umm Coley MD Primary Care Provider + West Meier RN Unavailable [phone] Reason for Visit * Reason Onset Date Comments Appointment 06/15/2023 Encounter Details Date Type Department Care Team ([facility] st Contact Info) Description 06/15/2023 Telephone [facility] ADULT DENTAL 230 [place] [address] Johnny Gonzalez, WILIAN 505 [place], [place] [phone] Appointment Social History Tobacco Use Types Packs/Day [...] and patient would like to be scheduled * Telephone Encounter - Scarlet Rafael - [...] Description 03/24/2025 2:00 PM EDT Office Visit [facility] CHC ADULT DENTAL 505 [place] [address] Yovani Fountain 05/02/2025 10:30 AM EDT Office Visit [facility] MEDICINE 230 [place] [address] Umm Coley MD 230 [place] [address] documented as of this encounter Visit Diagnoses Not on filedocumented in this encounter Additional Health Concerns Assessment Noted Time PHQ-9 Depression Total Score: 12 023 1:58 PM EDT documented as of this encounter Care Teams Plant Control Operator Relationship Specialty Start Date End Date Umm Coley MD 230 [place] [address] PCP - General Family Medicine 10/31/16 West Meier, RN 505 [place] [address] Loading Unit Operator SeatingClaim Inspector 01/12/25 Eva Nunez Loading Unit Operator Seating 04/05/24 07/06/24 [facility] 05/11/24 11/17/24 [facility] 11/14/24 01/17/25 [employer] 12/08/24 documented as of this encounter
--- OUTSIDE RECORDS SUMMARY | 2025-03-14 14:55 | XMS_ITS | Encounter Summary ---
Author Organization [employer] Address [address] [place] [address] 7t [place] [address] Care Team Providers Care Switching Clerk Name Role Phone Umm Coley MD Primary Care Provider + West Meier RN Unavailable [phone] Reason for Visit * Reason Comments Med Refill Encounter Details Date Type Department Care Team (Late Contact Info) Description 06/10/2023 Refill [facility] MEDICINE 230 [place] [address] Yenny Morris MD 230 [place] [address] Rash Social History Tobacco Use Types Packs/Day [...] Description 03/24/2025 2:00 PM EDT Office Visit [facility] CHC ADULT DENTAL [address] [place] [address] Yovani Fountain 05/02/2025 10:30 AM EDT Office Visit [facility] MEDICINE 230 [place] [address] Umm Coley MD 230 [place] [address] documented as of this encounter Visit Diagnoses Diagnosis Rash Rash and other nonspecific skin eruption documented in this encounter Additional Health Concerns Assessment Noted Time PHQ-9 Depression Total Score: 12 023 1:58 PM EDT documented as of this encounter Care Teams Switching Clerk Relationship Specialty Start Date End Date Umm Coley MD 230 [place] [address] PCP - General Family Medicine 10/31/16 West Meier, BEBA [address] [place] [address] Copper TapperSleever 01/12/25 Eva Nunez Copper Tapper 04/05/24 07/06/24 [facility] 05/11/24 11/17/24 [facility] 11/14/24 01/17/25 [employer] 12/08/24 documented as of this encounter
--- OUTSIDE RECORDS SUMMARY | 2025-03-14 14:55 | XMS_ITS | Encounter Summary ---
Author Organization [employer] [facility] Address [address] [place] [address] 7t [place] [address] Care Team Providers Care Control Valve Technician Name Role Phone Umm Coley MD Primary Care Provider + West Meier RN Unavailable [phone] Encounter Details Date Type Department Care Team (Latest Contact Info) Description 11/14/2019 Abstract [facility] CONVERSIONS Dental, Provider, DDS Social History [...] Description 03/24/2025 2:00 PM EDT Office Visit [facility] CHC ADULT DENTAL [address] [place] [address] Yovani Fountain 05/02/2025 10:30 AM EDT Office Visit [facility] MEDICINE 230 [place] [address] Umm Coley MD 230 [place], [place] [phone] documented as of this encounter Visit Diagnoses Not on filedocumented in this encounter Care Teams Control Valve Technician Relationship Specialty Start Date End Date Umm Coley MD 230 [place], [place] [phone] PCP - General Family Medicine 10/31/16 West Meier, BEBA 505 [facility] [place] [address] Child Welfare CounselorCutter Plastics Rolls 01/12/25 Eva Nunez Child Welfare Counselor 04/05/24 07/06/24 [facility] 05/11/24 11/17/24 [facility] 11/14/24 01/17/25 [email or web address] 12/08/24 documented as of this encounter
--- OUTSIDE RECORDS SUMMARY | 2025-03-14 14:55 | XMS_ITS | Encounter Summary ---
Author Organization [employer] [facility] Address [address] [place] [address] 7t [place] [address] Care Team Providers Care Tape Calender Name Role Phone Umm Coley MD Primary Care Provider + West Meier RN Unavailable [phone] Encounter Details Date Type Department Care Team (Latest Contact Info) Description 11/23/2020 Abstract [facility] CONVERSIONS Dental, Provider, DDS Social History Tobacco [...] Visit [facility] CHC ADULT DENTAL [address] [place] [address] Yovani Fountain 05/02/2025 10:30 AM EDT Office Visit [facility] MEDICINE 230 [place], [place] [address] Umm Coley MD 230 [place], [place] [phone] documented as of this encounter Visit Diagnoses Not on filedocumented in this encounter Care Teams Tape Calender Relationship Specialty Start Date End Date Umm Coley MD 230 [place] [address] PCP - General Family Medicine 10/31/16 West Meier, RN 505 [facility] [place]IN [place] [address] Consulting Senior Practice DirectorInstrument Shop Supervisor 01/12/25 Eva Nunez Consulting Senior Practice Director 04/05/24 07/06/24 [facility] 05/11/24 11/17/24 [facility] 11/14/24 01/17/25 [facility] 12/08/24 documented as of this encounter
--- OUTSIDE RECORDS SUMMARY | 2025-03-14 14:55 | XMS_ITS | Encounter Summary ---
Author Organization [employer] Address 75 [facility] 7t [place] [address] Care Team Providers Care Public Health Technician Name Role Phone Umm Coley MD Primary Care Provider + West Meier RN Unavailable [phone] Reason for Visit * Reason Onset Date Comments Appointment 02/24/2023 Encounter Details Date Type Department Care Team ([facility] st Contact Info) Description 02/24/2023 Telephone [facility] ADULT DENTAL 230 [place] [address] Johnny Gonzalez, WILIAN 505 [place], [place] [phone] Appointment Social History Tobacco Use Types Packs/Day [...] Description 03/24/2025 2:00 PM EDT Office Visit [facility] ADULT DENTAL 505 [place] [address] Yovani Fountain 05/02/2025 10:30 AM EDT Office Visit [facility] MEDICINE 230 [place] [address] Umm Coley MD 230 [place] [address] documented as of this encounter Visit Diagnoses Not on filedocumented in this encounter Care Teams Public Health Technician Relationship Specialty Start Date End Date Umm Coley MD 230 [place] [address] PCP - General Family Medicine 10/31/16 West Meier, RN 505 [place] [address] Filling Layer UpSales Trader 01/12/25 Eva Nunez Filling Layer Up 04/05/24 07/06/24 [facility] 05/11/24 11/17/24 [facility] 11/14/24 01/17/25 [employer] 12/08/24 documented as of this encounter
--- OUTSIDE RECORDS SUMMARY | 2025-03-14 14:55 | XMS_ITS | Encounter Summary ---
Author Organization [employer] Address [address] [facility] 7t [place] [address] Care Team Providers Care Internal Controls Consultant Name Role Phone Umm Coley MD Primary Care Provider + West Meier RN Unavailable [phone] Reason for Visit * Reason Comments Med Change Request Encounter Details Date Type Department Care Team ([facility] st Contact Info) Description 03/20/2023 Refill [facility] ADULT DENTAL 230 [place] [address] Johnny Gonzalez DMD 505 [place] [address] Social History Tobacco Use Types Packs/Day Years [...] Description 03/24/2025 2:00 PM EDT Office Visit [facility] ADULT DENTAL [address] [place] [address] Yovani Fountain 05/02/2025 10:30 AM EDT Office Visit [facility] MEDICINE 230 [place] [address] Umm Coley MD 230 [place] [address] documented as of this encounter Visit Diagnoses Not on filedocumented in this encounter Care Teams Internal Controls Consultant Relationship Specialty Start Date End Date Umm Coley MD 230 [place] [address] PCP - General Family Medicine 10/31/16 West Meier, BEBA 505 [place] [address] Helicopter OfficerProgram Support Assistant 01/12/25 Eva Nunez Helicopter Officer 04/05/24 07/06/24 [facility] 05/11/24 11/17/24 [facility] 11/14/24 01/17/25 [employer] 12/08/24 documented as of this encounter
--- OUTSIDE RECORDS SUMMARY | 2025-03-14 14:55 | XMS_ITS | Encounter Summary ---
Author Organization [employer] Address [address] [place] [address] 7t [place] [address] Care Team Providers Care Client Solutions Specialist Name Role Phone Umm Coley MD Primary Care Provider + West Meier RN Unavailable [phone] Reason for Visit * Reason Comments Med Refill Encounter Details Date Type Department Care Team (Late st Contact Info) Description 05/21/[address] [facility] MEDICINE 230 [place], [place] [phone] Umm Coley MD 230 [place], [place] [phone] Arthritis of knee Social History Tobacco Use [...] PM EDT Office Visit [facility] CHC ADULT DENTAL 505 [place] [address] Yovani Fountain 05/02/2025 10:30 AM EDT Office Visit [facility] MEDICINE 230 [place] [address] Umm Coley MD 230 [place] [address] documented as of this encounter Visit Diagnoses Diagnosis Arthritis of knee Unspecified arthropathy, lower leg documented in this encounter Additional Health Concerns Assessment Noted Time PHQ-9 Depression Total Score: 12 023 1:58 PM EDT documented as of this encounter Care Teams Client Solutions Specialist Relationship Specialty Start Date End Date Umm Coley MD 230 [place] [address] PCP - General Family Medicine 10/31/16 West Meier, BEBA 505 [place] [address] Botany TeacherAcid Purifier 01/12/25 Eva Nunez Botany Teacher 04/05/24 07/06/24 [facility] 05/11/24 11/17/24 [facility] 11/14/24 01/17/25 [employer] 12/08/24 documented as of this encounter
--- OUTSIDE RECORDS SUMMARY | 2025-03-14 14:55 | XMS_ITS | Encounter Summary ---
Author Organization [employer] Address [address] [facility] 7t [place] [address] Care Team Providers Care Linseed Cake Trimmer Name Role Phone Umm Coley MD Primary Care Provider + West Meier RN Unavailable [phone] Encounter Details Date Type Department Care Team (Late Contact Info) Description 03/05/2023 Orders Only [facility] MEDICINE 230 [place], [place] [phone] Umm Coley MD 230 [place], [place] [phone] Social History Tobacco Use Types Packs/Day Years [...] [facility] ADULT D[facility] [address] [place] [address] Yovani Fountain 05/02/2025 10:30 AM EDT Office Visit [facility] MEDICINE 230 [place] [address] Umm Coley MD 230 [place] [address] documented as of this encounter Visit Diagnoses Not on filedocumented in this encounter Care Teams Linseed Cake Trimmer Relationship Specialty Start Date End Date Umm Coley MD 230 [place] [address] PCP - General Family Medicine 10/31/16 West Meier RN [address] [place] [address] Laborer SalvageSales Order Administrator 01/12/25 Eva Nunez Laborer Salvage 04/05/24 07/06/24 [facility] 05/11/24 11/17/24 [facility] 11/14/24 01/17/25 [employer] 12/08/24 documented as of this encounter
--- OUTSIDE RECORDS SUMMARY | 2025-03-14 14:55 | XMS_ITS | Encounter Summary ---
Author Organization [employer] Address 75 [facility] 7t [place] [address] Care Team Providers Care Inventory Coordinator Name Role Phone Umm Coley MD Primary Care Provider + West Meier RN Unavailable [phone] Reason for Visit * Reason Onset Date Comments pre med prior to dental treatment 08/23/2024 Encounter Details Date Type Department Care Team ([facility] st Contact Info) Description 08/23/2024 Telephone [facility] ADULT DENTAL [address] [place] [address] Johnny Gonzalez, DMD [address] [place] [address] pre med prior to dental treatment Social [...] slips from pharmacy from past with instructions ofhow she was to take them prior to dental visits. Can antibiotics be sent to the pharmacy for patient? Her appt is at 10:30. I also spoke with Nina in the manager front office with a run through of what was happening with the patient and she stated she would also send something to provider for clarification documented in this encounter Plan of Treatment Upcoming Encounters Date Type Department Care Team (Late st Contact Info) Description 03/24/2025 2:00 PM EDT Office Visit [facility] ADULT DENTAL [address] [place] [address] Yovani Fountain 05/02/2025 10:30 AM EDT Office Visit [facility] MEDICINE 230 [place] [address] Umm Coley MD 230 [place], [place] [phone] documented as of this encounter Visit Diagnoses Not on filedocumented in this encounter Additional Health Concerns Assessment Noted Time PHQ-9 Depression Total Score: 10 024 9:17 AM EDT documented as of this encounter Care Teams Inventory Coordinator Relationship Specialty Start Date End Date Umm Coley MD 230 [place], [place] [phone] PCP - General Family Medicine 10/31/16 West Meier, RN [address] [place] [address] Position ClerkCommercial Energy Auditor 01/12/25 [facility] 05/11/24 11/17/24 [facility] 11/14/24 01/17/25 [email or web address] 12/08/24 documented as of this encounter
--- OUTSIDE RECORDS SUMMARY | 2025-03-14 14:55 | XMS_ITS | Encounter Summary ---
Author Organization [employer] Address [address] [facility] 7t [place] [address] Care Team Providers Care Needle Straightener Name Role Phone Umm Coley MD Primary Care Provider + West Meier RN Unavailable [phone] Encounter Details Date Type Department Care Team ([facility] st Contact Info) Description 08/23/2024 Orders Only [facility] CHC ADULT DENTAL [address] [place], [place] [phone] Johnny Gonzalez, DMD [address] [place] [address] Social History Tobacco Use Types Packs/Day Years [...] Upcoming Encounters Date Type Department Care Team ([facility] st Contact Info) Description 03/24/2025 2:00 PM EDT Office Visit [facility] CHC ADULT DENTAL 505 [place] [address] Yovani Fountain 05/02/2025 10:30 AM EDT Office Visit [facility] MEDICINE 230 [place] [address] Umm Coley MD 230 [place] [address] documented as of this encounter Visit Diagnoses Not on filedocumented in this encounter Additional Health Concerns Assessment Noted Time PHQ-9 Depression Total Score: 10 024 9:17 AM EDT documented as of this encounter Care Teams Needle Straightener Relationship Specialty Start Date End Date Umm Coley MD 230 [place] [address] PCP - General Family Medicine 10/31/16 West Meier, RN 505 [place] [address] Senior Oracle Adf DeveloperGeneral Manager Farm 01/12/25 [facility] 05/11/24 11/17/24 [facility] 11/14/24 01/17/25 [employer] 12/08/24 documented as of this encounter
--- OUTSIDE RECORDS SUMMARY | 2025-03-14 14:55 | XMS_ITS | Encounter Summary ---
Author Organization [employer] Address [address] [place] [address] 7t [place] [address] Care Team Providers Care Assistant Bookkeeper Name Role Phone Umm Coley MD Primary Care Provider + West Meier RN Unavailable [phone] Reason for Visit * Reason Comments Med Refill Encounter Details Date Type Department Care Team (Late Contact Info) Description 08/01/2023 Refill [facility] MEDICINE 230 [place], [place] [phone] Umm Coley MD 230 [place], [place] [phone] Social History Tobacco Use Types Packs/Day Years [...] Upcoming Encounters Date Type Department Care Team ([facility] Contact Info) Description 03/24/2025 2:00 PM EDT Office Visit [facility] ADULT DENTAL [address] [place] [address] Yovani Fountain 05/02/2025 10:30 AM EDT Office Visit [facility] MEDICINE 230 [place] [address] Umm Coley MD 230 [place] [address] documented as of this encounter Visit Diagnoses Not on filedocumented in this encounter Additional Health Concerns Assessment Noted Time PHQ-9 Depression Total Score: 12 023 1:58 PM EDT documented as of this encounter Care Teams Assistant Bookkeeper Relationship Specialty Start Date End Date Umm Coley MD 230 [place] [address] PCP - General Family Medicine 10/31/16 West Meier, BEBA [address] [place] [address] Property AppraiserRoll Edge Machine Operator 01/12/25 Eva Nunez Property Appraiser 04/05/24 07/06/24 [facility] 05/11/24 11/17/24 [facility] 11/14/24 01/17/25 [email or web address] 12/08/24 documented as of this encounter
--- OUTSIDE RECORDS SUMMARY | 2025-03-14 14:55 | XMS_ITS | Encounter Summary ---
Author Organization [employer] Address 75 [facility] 7t [place] [address] Care Team Providers Care Sales Director Name Role Phone Umm Coley MD Primary Care Provider + West Meier RN Unavailable [phone] Reason for Visit * Reason Comments Med Refill Encounter Details Date Type Department Care Team ([facility] Contact Info) Description 02/05/2023 Refill [facility] MEDICINE [address] [place] [address] Umm Coley MD 230 [place], [place] [phone] Arthritis of knee Social History Tobacco Use [...] Upcoming Encounters Date Type Department Care Team ([facility] Contact Info) Description 03/24/2025 2:00 PM EDT Office Visit [facility] CH[facility] ADULT DENTAL [address] [place] [address] Yovani Fountain 05/02/2025 10:30 AM EDT Office Visit [facility] MEDICINE [address] [place] [address] Umm Coley MD [address] [place] [address] documented as of this encounter Visit Diagnoses Diagnosis Arthritis of knee Unspecified arthropathy, lower leg documented in this encounter Care Teams Sales Director Relationship Specialty Start Date End Date Umm Coley MD [address] [place] [address] PCP - General Family Medicine 10/31/16 West Meier, BEBA [address] [place] [address] Soil ExpertGeneral Clerk 01/12/25 Eva Nunez Soil Expert 04/05/24 07/06/24 [facility] 05/11/24 11/17/24 [facility] 11/14/24 01/17/25 [employer] 12/08/24 documented as of this encounter
== END 2025-03-14 15:31 | disposition home or self-care (01) ==
LOC: HO.HOS 13:45
PROVIDERS: PCP Internal Medicine
DX: S52.501A Unspecified fracture of the lower end of right radius, initial encounter for closed fracture (principal)
CPT/HCPCS: 99024

== ENCOUNTER → 2025-03-14 14:41 | Outpatient (BNV) | payer MEDICAID, SELFPAY | PROVIDERS: PCP Internal Medicine; Visit Provider Radiology Diagnostic Radiology | DX: M25.531 Pain in right wrist (principal) | CPT/HCPCS: 73110 ==

== ENCOUNTER 2025-03-17 11:49 | Outpatient (AMB) | payer MEDICAID, SELFPAY ==
--- NOTE | 2025-03-17 11:54 | A.OFFVIS_ITS ---
Vital Signs 03/17/25 11:58 Height 5 ft Weight 105 lb 13.15 oz BMI 20.7 BP 97/53 L Blood Pressure Location Lt brachial Position Sitting Pulse 84 Intake Visit Reasons: 6 mnth follow up Intake Note: Diana presents in the office as a 6 month follow up. CC: She states that she has been having a lot of discomfort in her stomach. She has been having lots of noises in her stomach. She states that at times she has diarrhea. Scale Adjuster Required: Yes Allergies codeine [CODEINE] Allergy (Intermediate, Verified 03/17/25 11:58) DIZZY/NAUSEA, nausea/vomiting escitalopram [From LEXAPRO] Allergy (Intermediate, Verified 03/17/25 11:58) ? NAUSEA meperidine [MEPERIDINE] Allergy (Intermediate, Verified 03/17/25 11:58) NAUSEA morphine [MORPHINE] Allergy (Intermediate, Verified 03/17/25 11:58) PALPITATIONS, palpitation oxycodone [OXYCODONE] Allergy (Intermediate, Verified 03/17/25 11:58) PALPATATIONS, palpitations tramadol Allergy (Unknown, Verified 03/17/25 11:58) dizziness, nausea HPI HPI 6 mnth follow up: Details: Assessment & Plan (1) GERD (gastroesophageal reflux disease): Code(s): K21.9 - Gastro-esophageal reflux disease without esophagitis Category: Medical (2) Irritable bowel syndrome with both constipation and diarrhea: Code(s): K58.2 - Mixed irritable bowel syndrome Category: Medical (3) Tubular adenoma of colon: Comment: 2022= SESSILE SERRATED POLYP, repeat in 5 years aeb Code(s): D12.6 - Benign neoplasm of colon, unspecified Category: Medical Plan [facility] #Heidi LIve SHe is here today with a female family member She continues on her omeprazole in the morning famotidine at night, her fiber therapy senna, dicyclomine . She has been ok in general with the stooling but has intermittent borborymus. She continues the bentyl, and we could consider imipramine but this may be constipating. She feels she is stable for now. ROV 6 mos. TODAY'S VISIT Cym[facility]es #[id number] Seferino She say she has not been doing well. She fell and fx her right arm and had 2 surgeries to correct this. Between pain medicines and abx, her stooling has been very crampy and she is having bloating with diarrhea - this despite taking 2, 20mg bentyl qid. However, for now she want to just wait and see how she does as she recovers, as it is slowly improving. If it fails to improve we may consider switching to imipramine. ROV 4 mos. [facility] Medical History (Updated 02/17/25 @ 15:38 by REINA Barrios) Primary osteoarthritis of right hand Migraine Right shoulder pain Rotator cuff tendinitis Arthritis of right shoulder region Right hand pain Breast cancer, right Status post radiation therapy Anemia Diarrhea Depression Somatization disorder Migraine equivalent syndrome Anxiety Periodontal disease Fibromyalgia Surgical History History of esophagogastroduodenoscopy (EGD) History of lumpectomy Hx of section Hx of shoulder surgery Hx of colonoscopy Family History Mother HTN (hypertension) Sister Breast cancer Bone cancer Colon polyps Sister Osteoporosis Hypercholesteremia Colon polyps Social History Household Members: None Housing: Apartment Are you a primary rn primary care to a significant other at home: No Do you presently have visiting nurse or other home services: No Alcohol intake: never Patient Tobacco Use Status: Former Tobacco user Years Smoked: 3 service: No Current occupational status: disabled 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 Review of Systems Const Denies fatigue, Denies fever(s), Denies night sweats, Denies poor appetite and Denies weight loss ENT Reports Normal hearing present, Denies dental pain, Denies dysphagia, Denies hearing loss, Denies mouth pain, Denies odynophagia, Denies throat swelling, Denies tongue swelling and Reports other (Dentition adequate) Card Reports no additional complaints Resp Reports no additional complaints GI Details: Denies abdominal pain, Denies melena, Reports bloating, Denies hematochezia, Denies constipation, Reports GI cramping, Denies dysphagia, Denies excessive flatus, Denies early satiety, Reports heartburn, Denies diarrhea, Reports loose stools, Denies nausea, Denies odynophagia, Denies vomiting and Denies hematemesis Musc Reports myalgias, Reports deformity and Reports arthralgias Skin/Breast Denies pruritus, Denies lesions, Denies rash and Denies jaundice Neuro Reports Normal hearing present and Denies Abnormal speech present Endo Denies fatigue Aller/Immun Denies throat swelling and Denies tongue swelling Physical Exam Vital Signs: Last Vital Signs Pulse 84 03/17/25 11:58 BP 97/53 L 03/17/25 11:58 BMI result Body Mass Index 20.7 Const General: cooperative, no acute distress, well developed and well groomed Nutritional Appearance: well nourished Orientation/consciousness: oriented to person, oriented to place and oriented to time Limitations: language barrier and ambulation with cane HEENT Head: Yes normocephalic and Yes atraumatic Eyes General: appearance normal, both eyes and all related structures Pupils: Equal, round and reactive pupils present Neck Neck: Yes normal visual inspection and Yes no lymphadenopathy Thyroid: Thyroid normal Resp Effort & Inspection: normal respiratory effort and able to speak in complete sentences Auscultation: clear to auscultation bilaterally Cardio Rate: regular rate Rhythm: regular rhythm Heart sounds: Normal, physiologic split S2 sound present Peripheral pulses: radial pulses present and posterior tibial pulses present GI Inspection: No distended and No Abdominal panniculus present Palpation (GI): Soft to palpation, nontender, no guarding, not rigid and No hepatosplenomegaly present Percussion: Yes normal to percussion Auscultation: normal bowel sounds Rectal Exam - Female: deferred Skin General skin exam: no rashes or lesions noted, turgor normal, skin not dry, no jaundice, No spider nevi and no striae Rashes: no rashes Nails: normal Neuro General: oriented to person, oriented to place and oriented to time Cranial nerves: Yes Equal, round and reactive pupils present and Yes Normal hearing present Speech: No Abnormal speech present Extrem Other: brace/cast rt arm General: Yes normal to inspection, No clubbing, No cyanosis and No edema Psych Appearance: grossly normal and well kempt Mental Status: mental status grossly normal Speech and movement: Slowed speech present (Psych) Affect: normal affect Attitude: cooperative Thought process: not confabulating and Impoverished thought process present Thought content: Normal thought content present Insight: Limited insight present (Psych) Judgement: Limited judgement present (Psych) Assessment & Plan Assessment & Plan (1) GERD (gastroesophageal reflux disease): Code(s): K21.9 - Gastro-esophageal reflux disease without esophagitis Category: Medical (2) Irritable bowel syndrome with both constipation and diarrhea: Code(s): K58.2 - Mixed irritable bowel syndrome Category: Medical Plan [facility] #[id number] Seferino She say she has not been doing well. She fell and fx her right arm and had 2 surgeries to correct this. Between pain medicines and abx, her stooling has been very crampy and she is having bloating with diarrhea - this despite taking 2, 20mg bentyl qid. However, for now she want to just wait and see how she does as she recovers, as it is slowly improving. If it fails to improve we may consider switching to imipramine. ROV 4 mos. Medications: Refilled omeprazole 20 mg PO DAILY 90 caps 2RF dicyclomine 40 mg (2 x 20 mg) PO QID 240 tabs 3RF K58.2 - Mixed irritable bowel syndrome Discontinued mirtazapine replaces prior dose of 45 mg Discontinued Reason: Duplicate 30 mg PO BEDTIME 30 tabs 0RF On Hold sennosides (senna) Hold Comment: Doctor's Order 17.2 mg (2 x 8.6 mg) PO BEDTIME 90 days PRN 90 tabs 6RF Constipation docusate sodium Hold Comment: Doctor's Order 100 mg PO BID PRN 180 caps 1RF for constipation Coding Level of Care Code Est Pt Level 3 (26782) Diagnoses GERD (gastroesophageal reflux disease) K21.9 Irritable bowel syndrome with both constipation and diarrhea K58.2
--- OUTSIDE RECORDS SUMMARY | 2025-03-17 11:55 | XMS_ITS | Encounter Summary ---
Author Organization [employer] Address [address] [facility] 7t [place] [address] Care Team Providers Care Field Machinist Name Role Phone Umm Coley MD Primary Care Provider + West Meier RN Unavailable [phone] Encounter Details Date Type Department Care Team (Late st Contact Info) Description 11/03/2022 Orders Only [facility] MEDICINE [address] [place], [place] [phone] Umm Coley MD [address] [place], [place] [phone] Osteopenia after menopause (Primary Dx) Social History [...] 2:00 PM EDT Office Visit [facility] CHC ADULT DENTAL [address] [place] [address] Armenleydi Yovani 05/02/2025 10:30 AM EDT Office Visit [facility] MEDICINE [address] [place] [address] Umm Coley MD [address] [place] [address] Scheduled Orders Name Type Priority Associated Diagnoses Orde r Schedule Vitamin D, 25-Hydroxy, Total, Immunoassay Lab Routine Osteopenia after menopause Expected: 11/03/2022 (Approximate), Expires: 11/03/2023 PTH, Intact (ICMA) And Ionized Calcium Lab Routine Osteopenia after menopause Expected: 11/03/2022 (Approximate), Expires: 11/03/2023 documented as of this encounter Visit Diagnoses Diagnosis Osteopenia after menopause- Primary documented in this encounter Care Teams Field Machinist Relationship Specialty Start Date End Date Umm Coley MD [address] [place] [address] PCP - General Family Medicine 10/31/16 West Meier, RN [address] [place] [address] Hospice Patient Care SecretaryAtm Mechanic 01/12/25 Eva Nunez Hospice Patient Care Secretary 04/05/24 07/06/24 [facility] 05/11/24 11/17/24 [facility] 11/14/24 01/17/25 [employer] 12/08/24 documented as of this encounter
--- OUTSIDE RECORDS SUMMARY | 2025-03-17 11:56 | XMS_ITS | Encounter Summary ---
Author Organization [employer] [facility] Address [address] [place] [address] 7t [place] [address] Care Team Providers Care Cloud Security Architect Name Role Phone Umm Coley MD Primary Care Provider + West Meier RN Unavailable [phone] Encounter Details Date Type Department Care Team (Latest Contact Info) Description 09/16/2022 Abstract [facility] CONVERSIONS Dental, Provider, [...] Description 03/24/2025 2:00 PM EDT Office Visit [facility] CHC ADULT DENTAL [address] [place] [address] Yovani Fountain 05/02/2025 10:30 AM EDT Office Visit [facility] MEDICINE [address] [place], [place] [phone] Umm Coley MD [address] [place], [place] [phone] documented as of this encounter Visit Diagnoses Not on filedocumented in this encounter Care Teams Cloud Security Architect Relationship Specialty Start Date End Date Umm Coley MD [address] [place] [address] PCP - General Family Medicine 10/31/16 West Meier, RN [address] [facility] [place] [address] Cigar SorterHospitality Job Titles 01/12/25 Eva Nunez Cigar Sorter 04/05/24 07/06/24 [facility] 05/11/24 11/17/24 [facility] 11/14/24 01/17/25 [employer] 12/08/24 documented as of this encounter
--- OUTSIDE RECORDS SUMMARY | 2025-03-17 11:56 | XMS_ITS | Encounter Summary ---
Author Organization [employer] [facility] Address [address] [place] [address] [address]t [place] [address] Care Team Providers Care Forest Examiner Name Role Phone Umm Coley MD Primary Care Provider + West Meier RN Unavailable [phone] Encounter Details Date Type Department Care Team (Late st Contact Info) Description 09/24/2022 Abstract [facility] ADULT DENTAL [address] [place], [place] [phone] Dental, Provider, DDS Social History Tobacco Use [...] Description 03/24/2025 2:00 PM EDT Office Visit [facility] ADULT DENTAL [address] [place] [address] Yovani Fountain 05/02/2025 10:30 AM EDT Office Visit [facility] MEDICINE [address] [place], [place] [phone] Umm Coley MD [address] [place] [address] documented as of this encounter Procedures Procedure [...] on filedocumented in this encounter Care Teams Forest Examiner Relationship Specialty Start Date End Date Umm Coley MD [address] [place] [address] PCP - General Family Medicine 10/31/16 West Meier RN [address] [place] [address] Duplicator Punch OperatorDrafter Castings 01/12/25 Eva Nunez Duplicator Punch Operator 04/05/24 07/06/24 [facility] 05/11/24 11/17/24 [facility] 11/14/24 01/17/25 [employer] 12/08/24 documented as of this encounter
--- OUTSIDE RECORDS SUMMARY | 2025-03-17 11:56 | XMS_ITS | Encounter Summary ---
Author Organization [employer] Address [address] [place] [address] 7[address] [place] [address] Care Team Providers Care Gas Plant Repairer Name Role Phone Umm Coley MD Primary Care Provider + West Meier RN Unavailable Reason for Visit * Reason Comments Med Refill Encounter Details Date Type Department Care Team (Late st Contact Info) Description 05/21/2023 Refill [facility] MEDICINE [address] [place], [place] [phone] Umm Coley MD [address] [place], [place] [phone] Arthritis of knee Social History Tobacco Use [...] EDT Office Visit [facility] CHC ADULT DENTAL [address] [place] [address] Yovani Fountain 05/02/2025 10:30 AM EDT Office Visit [facility] MEDICINE [address] [place] [address] Umm Coley MD [address] [place] [address] documented as of this encounter Visit Diagnoses Diagnosis Arthritis of knee Unspecified arthropathy, lower leg documented in this encounter Additional Health Concerns Assessment Noted Time PHQ-9 Depression Total Score: 12 023 1:58 PM EDT documented as of this encounter Care Teams Gas Plant Repairer Relationship Specialty Start Date End Date Umm Coley MD [address] [place] [address] PCP - General Family Medicine 10/31/16 West Meier, BEBA [address] [place] [address] Senior Business Development AnalystBoarding Machine Operator 01/12/25 Eva Nunez Senior Business Development Analyst 04/05/24 07/06/24 [facility] 05/11/24 11/17/24 [facility] 11/14/24 01/17/25 [employer] 12/08/24 documented as of this encounter
--- OUTSIDE RECORDS SUMMARY | 2025-03-17 11:56 | XMS_ITS | Encounter Summary ---
Author Organization [employer] Address [address] [place] [address] [address] [place] [address] Care Team Providers Care Harness Mender Name Role Phone Umm Coley MD Primary Care Provider + West Meier RN Unavailable [phone] Reason for Visit * Reason Onset Date Comments Care Management 03/13/2025 C3CM- F/U call ( 3rd attempt) Encounter Details Date Type Department Care Team ([facility] st Contact Info) Description 03/13/2025 Telephone [facility] MEDICINE [address] [place], [place] [phone] Umm Coley MD [address] [place], [place] [phone] Care Management (C3CM- F/U call (3rd attempt)) [...] you do. This CM sent Barb from [facility] a fax requesting to schedule above meeting with both providers. Received fax confirmation. Awaiting for either a call or a fax back. * Telephone Encounter - West Meier RN - 03/13/2025 2:03 PM EDT CM West Meier RN placed outbound call for follow up call. No answer at this time. LVM introducing myself from [facility] CM Department. Requested call back. CM reinforced direct contactinformation for any additional questions or concerns. Education provided on [facility] located in [facility]. Patient provided with after-hours line for [facility], , which offer night time triage service and option to transfer to induction machine operator provider if needed. CM will attempt another follow up call within 10 days. documented in this encounter Plan of Treatment Upcoming Encounters Date Type Department Care Team (Late st Contact Info) Description 03/24/2025 2:00 PM EDT Office Visit [facility] CHC ADULT DENTAL [address] [place] [address] Yovani Fountain 05/02/2025 10:30 AM EDT Office Visit [facility] MEDICINE [address] [place] [address] Umm Coley MD [address] [place] [address] documented as of this encounter Visit Diagnoses Not on filedocumented in this encounter Additional Health Concerns Assessment Noted Time PHQ-9 Depression Total Score: 10 024 9:17 AM EDT documented as of this encounter Care Teams Harness Mender Relationship Specialty Start Date End Date Umm Coley MD [address] [place] [address] PCP - General Family Medicine 10/31/16 West Meier RN [address] [place] [address] Senior Health Physics TechnicianPinmaker 01/12/25 documented as of this encounter
--- OUTSIDE RECORDS SUMMARY | 2025-03-17 11:56 | XMS_ITS | Encounter Summary ---
Author Organization [facility] [facility] Address [address] [place] [address] 7t [place] [address] Care Team Providers Care Medical Unit Secretary Name Role Phone Umm Coley MD Primary Care Provider + West Meier RN Unavailable [phone] Encounter Details Date Type Department Care Team (Latest Contact Info) Description 11/23/2020 Abstract [facility] CONVERSIONS Dental, Provider, DDS Social History [...] 03/24/2025 2:00 PM EDT Office Visit [facility] CHC ADULT DENTAL [address] [place] [address] Yovani Fountain 05/02/2025 10:30 AM EDT Office Visit [facility] MEDICINE [address] [place], [place] [phone] Umm Coley MD [address] [place], [place] [phone] documented as of this encounter Visit Diagnoses Not on filedocumented in this encounter Care Teams Medical Unit Secretary Relationship Specialty Start Date End Date Umm Coley MD [address] [place] [address] PCP - General Family Medicine 10/31/16 West Meier, RN [address] [facility] [place] [address] Binder TechnicianMold Loft Worker 01/12/25 Eva Nunez Binder Technician 04/05/24 07/06/24 [facility] 05/11/24 11/17/24 [facility] 11/14/24 01/17/25 [employer] 12/08/24 documented as of this encounter
--- OUTSIDE RECORDS SUMMARY | 2025-03-17 11:56 | XMS_ITS | Clinical Summary ---
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 Attending Dr: Ordering Physician: Diomedes Shultz Date of Service: 12/23/24 Procedure(s): XR hand wrist RT Accession Number(s): [id number] cc: Diomedes Shultz; Shalonda Coley MD CLINICAL [...] This document has been electronically signed by: aNwaf Anglin MD on 12/23/2024 18:57:03 Dictated By: Nawaf Anglin MD Signed By: <Electronically signed by Nawaf Anglin MD in OV> 12/23/248 DD/ 56 TD/TT: 12/23/241856 Ferryboat Operator: [facility] External Provider IMG XR PROCEDURES Final Result * CT Head w/o Contrast (12/23/2024 4:42 PM EST) Anatomical Region Laterality Modality Head, Neck Computed Tomogra phy 12/23/2024 4:42 PM EST Narrative 12/23/2024 4:54 PM EST ? [facility] ?[address] ?[place] [address] ? CT Scan Report ? Signed ? Patient: Myles,Diana L ?MR#: [id number] ?? 8 ? : 1965 ?Acct:[id number] ? Age/Sex: 59 / F ?ADM Date: 02/21/25 ? Loc: HO.ED ? Attending : ? Ordering Physician: Diomedes Shultz ?? Date of Service: 12/23/24 ?? Procedure(s): CT head/brain wo IV con ?? Accession Number(s): [id number] ? cc: Diomedes Shultz; Shalonda Coley MD ? Report Number: ?? [id number]: Total DLP = ??821.00 mGy-cm ?? EXAMINATION: [...] ? DD/ 41 ? TD/TT: 12/23/241641 ? Ferryboat Operator: ? Procedure Note Adalgisa, Chin - 12/23/2024 [facility] [address] [place] [address] CT Scan Report Signed Patient: Diana Myles LMR#: [id number] 8 : 1965Acct:[id number] Age/Sex: 59 / FADM Date: 12/23/24 Loc: HO.ED Attending Dr: Ordering Physician: Diomedes Shultz Date of Service: 12/23/24 Procedure(s): CT head/brain wo IV con Accession Number(s): [id number] cc: Diomedes Shultz; Shalonda Coley MD Report Number: [id number]: Total DLP = 821.00 mGy-cm EXAMINATION: CT [...] by: Mathieu Lepe MD 12/23/2024 04:51 PM [facility] Dictated By: Mathieu Lepe MD Signed By: <Electronically signed by Mathieu Lepe MD in OV> 12/23/24 1651 DD/ 1642 TD/TT: 12/23/24 1642 Ferryboat Operator: us [facility] External Provider IMG CT PROCEDURES Final Result * CT Cervical Spine w/o Contrast (12/23/2024 3:29 PM EST) Anatomical Region Laterality Modality Spine, C-spine Computed Tomogra phy 12/23/2024 3:29 PM EST Narrative 12/23/2024 4:57 PM EST ? [facility] ?[address] ?[place], [place] [address] ? CT Scan Report ? Signed ? Patient: Myels,Diana L ?MR#: [id number] ?? 8 ? : 1965 ?Acct:[id number] ? Age/Sex: 59 / F ?ADM Date: 12/23/24 ? Loc: HO.ED ? Attending Dr: ? Ordering Physician: Diomedes Shultz ?? Date of Service: 12/23/24 ?? Procedure(s): CT cervical spine wo IV con ?? Accession Number(s): [id number] ? cc: Diomedes Shultz; Shalonda Coley MD ? Report Number: ?? [id number]: Total DLP = ??821.00 mGy-cm ?? EXAMINATION: [...] DD/ 1529 ? TD/TT: 12/23/24 1642 ? Ferryboat Operator: ? Procedure Note Howardkatelynjadenclaudiater, Image - 12/23/[address] [place] [address] [address] Scan Report Signed Patient: Diana Myles LMR#: [id number] 8 : 1965Acct:[id number] Age/Sex: 59 / FADM Date: 12/23/24 Loc: HO.ED Attending Dr: Ordering Physician: Diomedes Shultz Date of Service: 12/23/24 Procedure(s): CT cervical spine wo IV con Accession Number(s): [id number] cc: Diomedes Shultz; Shalonda Coley MD Report Number: [id number]: Total DLP = 821.00 mGy-cm EXAMINATION: CT [...] 12/23/24 1654 DD/ 1529 TD/TT: 12/23/24 1642 Ferryboat Operator: [facility] External Provider IMG CT PROCEDURES Final Result * XR Shoulder 2+ Views Right (12/23/2024 3:09 PM EST) Anatomical Region Laterality Modality Upper Extremities, Shoulder Right Radi ographic Imaging 12/23/2024 3:09 PM EST Narrative 12/23/2024 3:43 PM EST ? [facility] ?[address] ?[place] [address] ?XRay Report ? Signed ? Patient: Myles,Diana L ?MR#: [id number] ?? 8 ? : 1965 ?Acct:[id number] ? Age/Sex: 59 / F ?ADM Date: 02/21/25 ? Loc: HO.ED ? Attending Dr: ? Ordering Physician: Diomedes Shultz ?? Date of Service: 12/23/24 ?? Procedure(s): XR shoulder RT min 2V ?? Accession Number(s): [id number] ? cc: Diomedes Shultz; Shalonda Coley MD [...] MD ? Signed By: ?<Electronically signed by Steevn Gary MD in OV> ? 12/23/24 1540 ? DD/ 1509 ? TD/TT: 12/23/24 1533 ? Ferryboat Operator: ? Procedure Note Adalgisa, Image - 12/23/2024 [place] [address] XRay Report Signed Patient: Diana Myles LMR#: [id number] 8 : 1965Acct:[id number] Age/Sex: 59 / FADM Date: 12/23/24 Loc: HO.ED Attending Dr: Ordering Physician: Diomedes Shultz Date of Service: 12/23/24 Procedure(s): XR shoulder RT min 2V Accession Number(s): [id number] cc: Diomedes Shultz; Shalonda Coley MD EXAMINATION: [...] 12/23/24 1540 DD/ 1509 TD/TT: 12/23/24 1533 Ferryboat Operator: [facility] External Provider IMG XR PROCEDURES Final Result * XR Hips Bilateral with Pelvis 1 view (12/23/2024 2:57 PM EST) Anatomical Region Laterality Modality Lower Extremities, Hip Bilateral Radiograp hic Imaging 12/23/2024 2:57 PM EST Narrative 12/23/2024 3:45 PM EST ? [facility] ?[address] ?[place] [address] ?XRay Report ? Signed ? Patient: Diana Myles L ?MR#: [id number] ?? 8 ? : 1965 ?Acct:[id number] ? Age/Sex: 59 / F ?ADM Date: 12/23/24 ? Loc: HO.ED ? Attending Dr: ? Ordering Physician: Diomedes Shultz ?? Date of Service: 12/23/24 ?? Procedure(s): XR hip BI w PEL1V ?? Accession Number(s): [id number] ? cc: Diomedes Shultz; Shalonda Coley MD [...] DD/ 1457 ? TD/TT: 12/23/24 1533 ? Ferryboat Operator: ? Procedure Note Donotuseinterpreter, Image - 12/23/2024 [place] [address] XRay Report Signed Patient: Diana Myles LMR#: [id number] 8 : 1965Acct:[id number] Age/Sex: 59 / FADM Date: 12/23/24 Loc: HO.ED Attending Dr: Ordering Physician: Diomedes Shultz Date of Service: 12/23/24 Procedure(s): XR hip BI w PEL1V Accession Number(s): [id number] cc: Diomedes Shultz; Shalonda Coley MD EXAMINATION: [...] 12/23/24 1543 DD/ 1457 TD/TT: 12/23/24 1533 Ferryboat Operator: [facility] External Provider IMG XR PROCEDURES Final Result * XR Knee 4+ Views Right (12/23/2024 2:57 PM EST) Anatomical Region Laterality Modality Lower Extremities, Knee Right Radiogra phic Imaging 12/23/2024 2:57 PM EST Narrative 12/23/2024 3:44 PM EST ? [facility] ?[address] ?[place] [address] ?XRay Report ? Signed ? Patient: Myles,Diana L ?MR#: [id number] ?? 8 ? : 1965 ?Acct:[id number] ? Age/Sex: 59 / F ?ADM Date: 12/23/24 ? Loc: HO.ED ? Attending Dr: ? Ordering Physician: Diomedes Shultz ?? Date of Service: 12/23/24 ?? Procedure(s): XR knee RT 4V ?? Accession Number(s): [id number] ? cc: Diomedes Shultz; Shalonda Coley MD [...] DD/ 1457 ? TD/TT: 12/23/24 1533 ? Ferryboat Operator: ? Procedure Note Chin Diana - 12/23/[address] [address] XRay Report Signed Patient: Diana Myles LMR#: [id number] 8 : 1965Acct:[id number] Age/Sex: 59 / FADM Date: 12/23/24 Loc: HO.ED Attending Dr: Ordering Physician: Diomedes Shultz Date of Service: 12/23/24 Procedure(s): XR knee RT 4V Accession Number(s): [id number] cc: Diomedes Shultz; Shalonda Coley MD EXAMINATION: [...] 12/23/24 1541 DD/ 1457 TD/TT: 12/23/24 1533 Ferryboat Operator: [facility] External Provider IMG XR PROCEDURES Final Result * BI Mammogram Screening Tomosynthesis Bilateral (11/29/2024 8:45 AM EST) Anatomical Region Laterality Modality Breast Bilateral Mammography 11/29/2024 8:45 AM EST Narrative 12/07/2024 3:35 PM EST ? [facility] [place] ? [address] ?[place] [address] ? Mammography Report ? Signed ? Patient: Myles,Diana L ?MR#: [id number] ?? 8 ? : 1965 ?Acct:[id number] ? Age/Sex: 59 / F ?ADM Date: 01/28/25 ? Loc: HO.MAMMO ? Attending Dr: Shalonda Coley MD ? Ordering Physician: Shalonda Coley MD ?Results: 2Be ?? nign Findings ? Date of Service: 11/29/24 ?Follow Up: 1 Year From Orig ?? inal Mammogram ? Procedure(s): MM tomosynthesis screening BI ?? Accession Number(s): [id number] ? cc: Shalonda Coley MD ? EXAMINATION: [...] DD/ 0845 ? TD/TT: 11/29/24 0915 ? Ferryboat Operator: ? Procedure Note Donotuseinterpreter, Image - 12/07/2024 [place] [facility] [address] [place], [place] [address] Mammography Report Signed Patient: Diana Myles LMR#: [id number] 8 : 1965Acct:[id number] Age/Sex: 59 / FADM Date: 11/29/24 Loc: HO.MAMMO Attending Dr: Shalonda Coley MD Ordering Physician: Shalonda Coley MDResults: 2Be nign Findings Date of Service: 11/29/24Follow Up: 1 Year From Orig inal Mammogram Procedure(s): MM tomosynthesis screening BI Accession Number(s): [id number] cc: Shalonda Coley MD EXAMINATION: MM SCREENING [...] by: Chaparrita Lyn DO 12/07/2024 03:32 PM [facility] Dictated By: Chaparrita Lyn DO Signed By: <Electronically signed by Chaparrita Lyn DO in OV> 12/07/24 1532 DD/ 0845 TD/TT: 11/29/24 0915 Ferryboat Operator: Shalonda Coley MD IMG BI PROCEDURES Edited Result - Final * (ABNORMAL) Hm Colonoscopy (07/30/2023) Colonoscopy Abnormal( A) Normal [facility] Comment:SSL polyp Shalonda Coley MD HEALTH MAINTENANCE Final Result [facility] [address] [place] [address] [phone] * Thinprep PAP and HPV nRNA E6/E7 (10/08/2022 9:30 AM EST) Clinical Information: None given [facility] LMP: NONE GIVEN [facility] Prev. PAP: NONE GIVEN [employer] Prev. BX: NONE GIVEN [facility] [facility] SOURCE: None given [facility] Statement Of Adequacy: SATISFACTORY FOR EVALUATION Age and/or menstrual status not provided [facility] Interpretation/Re sult: [facility] Comment: Negative for intraepithelial lesion or malignancy. Atrophic pattern; predominantly parabasal cells Cash Posting Clerk: [employer] Comment: DMM, CT(ASCP) CT screening location: [address] ??[address] Review Cash Posting Clerk: [facility] Comment: MAA, CT(ASCP) CT screening location: [address] ??[address] (Always Message) Que [employer]ocketbook[employer] Comment: EXPLANATORY NOTE: The Pap is a [...] HPV nRNA E6/E7 Not Detected Not Detected [employer] [employer] Comment: Methodology: Breakdown Person-Mediated Amplification This assay detects E6/E7 viral messenger RNA (mRNA) from 14 high-risk HPV types (16,18,31,33,35,39,45,51,52,56,58,59,66,68). Cervical sources are required for HPV testing. If a vaginal source from a patient who has had a total hysterectomy with removal of cervix was submitted, please contact the testing laboratory for alternative testing options. For additional information, please refer to http://education.Adcast/faq/GWY995s1 (This link if provided for information/ educational purposes only.) 10/08/2022 9:30 AM EST 10/10/2022 1:07 AM EST Narrative [facility] - 10/14/2022 7:08 PM EST FASTING: UNKNOWN Shauna Matamoros [facility] PATHOLOGY ORDERABLES Final Result [facility] [address], [place] [address] [facility] [address], [place] [address] * HIV AB/AG (04/30/2022 11:28 AM EDT) Pathologist [facility] HIV AB/AG Nonreactive Nonreactive [facility] [employer] Comment: HIV-1 p24 Ag and/or HIV-1/HIV-2 [...] detection of this assay. ?? The [facility] Records Technician HIV Ag/Ab Combo assay result and supplemental [...] [facility] [address] from Last 3 Months or Most Recently Relevant to Health Maintenance [place] [address] [address] [place] [address] C3 [place] ST[place] ADULT Care Teams [employer] Sales Representative Relationship Specialty Start Date End Date Shalonda Coley MD [address] [place] [address] PCP - General Family Medicine 10/31/16 [place], BEBA [address] [place] [address] Stencil Cutter MachineReceivables Specialist 01/12/25
--- OUTSIDE RECORDS SUMMARY | 2025-03-17 11:56 | XMS_ITS | Encounter Summary ---
Author Organization [facility] Address [address] [place] [address] 7t [place] [address] Care Team Providers Care Ambulatory Care Name Role Phone Umm Coley MD Primary Care Provider + [place] RN Unavailable Encounter Details Date Type Department Care Team (Latest Contact Info) Description 03/13/2022 Abstract [facility] CONVERSIONS Dental, Provider, DDS [...] Description 03/24/2025 2:00 PM EDT Office Visit [facility] CHC ADULT DENTAL [address] [place] [address] Yovani Fountain 05/02/2025 10:30 AM EDT Office Visit [facility] MEDICINE [address] [place], [place] [phone] Umm Coley MD [address] [place], [place] [phone] documented as of this encounter Visit Diagnoses Not on filedocumented in this encounter Care Teams Ambulatory Care Relationship Specialty Start Date End Date Umm Coley MD [address] [place] [address] PCP - General Family Medicine 10/31/16 [place], RN [address] [facility] [place]IN [place] [address] Manager Trade MarketingRegistered Respiratory Technician 01/12/25 Eva Nunez Manager Trade Marketing 04/05/24 07/06/24 [facility] 05/11/24 11/17/24 [facility] 11/14/24 01/17/25 [employer] 12/08/24 documented as of this encounter
--- OUTSIDE RECORDS SUMMARY | 2025-03-17 11:56 | XMS_ITS | Encounter Summary ---
Author Organization [facility] Address [address] [place] [address] 7t [place] [address] Care Team Providers Care Motorcycle Tester Name Role Phone Umm Coley MD Primary Care Provider + [place] RN Unavailable [phone] Encounter Details Date Type Department Care Team (Latest Contact Info) Description 11/14/2019 Abstract [facility] CONVERSIONS Dental, [...] MEDICAL CENTER CHC ADULT DENTAL [address] [place] [address] Yovani Fountain 05/02/2025 10:30 AM EDT Office Visit [facility] MEDICINE [address] [place] [address] Umm Coley MD [address] [place], [place] [phone] documented as of this encounter Visit Diagnoses Not on filedocumented in this encounter Care Teams Motorcycle Tester Relationship Specialty Start Date End Date Umm Coley MD [address] [place], [place] [phone] PCP - General Family Medicine 10/31/16 [place], BEBA [address] [facility] [place]IN [place] [address] Extended Day TeacherInvestigation Division Captain 01/12/25 Eva Nunez Extended Day Teacher 04/05/24 07/06/24 [facility] 05/11/24 11/17/24 [facility] 11/14/24 01/17/25 [employer] 12/08/24 documented as of this encounter
--- OUTSIDE RECORDS SUMMARY | 2025-03-17 11:56 | XMS_ITS | Encounter Summary ---
Author Organization [employer] Address [address] [facility] 7t [place] [address] Care Team Providers Care Back Roll Lathe Operator Name Role Phone Umm Coley MD Primary Care Provider + [place] RN Unavailable [phone] Reason for Visit * Reason Onset Date Comments Appointment 02/24/2023 Encounter Details Date Type Department Care Team ([facility] st Contact Info) Description 02/24/2023 Telephone [facility] ADULT DENTAL [address] [place] [address] Johnny Gonzalez, WILIAN [address] [place], [place] [phone] Appointment Social History Tobacco Use Types Packs/Day [...] Description 03/24/2025 2:00 PM EDT Office Visit [facility] CHC ADULT DENTAL [address] [place] [address] Yovani Fountain 05/02/2025 10:30 AM EDT Office Visit [facility] MEDICINE [address] [place] [address] Umm Coley MD [address] [place] [address] documented as of this encounter Visit Diagnoses Not on filedocumented in this encounter Care Teams Back Roll Lathe Operator Relationship Specialty Start Date End Date Umm Coley MD [address] [place] [address] PCP - General Family Medicine 10/31/16 [place], RN [address] [place] [address] Construction Equipment MechanicMorning Caregiver 01/12/25 Eva Nunez Construction Equipment Mechanic 04/05/24 07/06/24 [facility] 05/11/24 11/17/24 [employer] 11/14/24 01/17/25 [employer] 12/08/24 documented as of this encounter
--- OUTSIDE RECORDS SUMMARY | 2025-03-17 11:56 | XMS_ITS | Encounter Summary ---
Author Organization [employer] Address [address] [place] [address] 7t [place] [address] Care Team Providers Care Cyber Reverse Engineer Name Role Phone Umm Coley MD Primary Care Provider + [place] RN Unavailable [phone] Reason for Visit * Reason Comments Med Refill Encounter Details Date Type Department Care Team (Late Contact Info) Description 08/01/2023 Refill [facility] MEDICINE [address] [place], [place] [phone] Umm Coley MD [address] [place], [place] [phone] Social History Tobacco Use Types Packs/Day Years [...] Team ([facility] Contact Info) Description 03/24/2025 2:00 PM EDT Office Visit [facility] CHC ADULT DENTAL [address] [place] [address] Yovani Fountain 05/02/2025 10:30 AM EDT Office Visit [facility] MEDICINE [address] [place] [address] Umm Coley MD [address] [place] [address] documented as of this encounter Visit Diagnoses Not on filedocumented in this encounter Additional Health Concerns Assessment Noted Time PHQ-9 Depression Total Score: 12 023 1:58 PM EDT documented as of this encounter Care Teams Cyber Reverse Engineer Relationship Specialty Start Date End Date Umm Coley MD [address] [place] [address] PCP - General Family Medicine 10/31/16 [place], BEBA [address] [place] [address] Tubing TesterLiver Trimmer 01/12/25 Eva Nunez Tubing Tester 04/05/24 07/06/24 [facility] 05/11/24 11/17/24 [facility] 11/14/24 01/17/25 Alex and Ani 12/08/24 documented as of this encounter
--- OUTSIDE RECORDS SUMMARY | 2025-03-17 11:56 | XMS_ITS | Encounter Summary ---
Author Organization [employer] Address [address] [facility] 7t [place] [address] Care Team Providers Care Alarm Technician Name Role Phone Umm Coley MD Primary Care Provider + [place] RN Unavailable [phone] Reason for Visit * Reason Onset Date Comments Appointment 06/15/2023 Encounter Details Date Type Department Care Team ([facility] st Contact Info) Description 06/15/2023 Telephone [facility] ADULT DENTAL [address] [place] [address] Johnny Gonzalez, WILIAN [address] [place], [place] [phone] Appointment Social History Tobacco Use Types Packs/Day [...] Description 03/24/2025 2:00 PM EDT Office Visit [facility] CHC ADULT DENTAL [address] [place] [address] Yovani Fountain 05/02/2025 10:30 AM EDT Office Visit [facility] MEDICINE [address] [place] [address] Umm Coley MD [address] [place] [address] documented as of this encounter Visit Diagnoses Not on filedocumented in this encounter Additional Health Concerns Assessment Noted Time PHQ-9 Depression Total Score: 12 023 1:58 PM EDT documented as of this encounter Care Teams Alarm Technician Relationship Specialty Start Date End Date Umm Coley MD [address] [place] [address] PCP - General Family Medicine 10/31/16 [place], RN [address] [place] [address] Mold Stamper And RepairerSoftwood Faller 01/12/25 Eva Nunez Mold Stamper And Repairer 04/05/24 07/06/24 [facility] 05/11/24 11/17/24 [facility] 11/14/24 01/17/25 [employer] 12/08/24 documented as of this encounter
--- OUTSIDE RECORDS SUMMARY | 2025-03-17 11:56 | XMS_ITS | Encounter Summary ---
Author Organization [employer] Address [address] [facility] 7t [place] [address] Care Team Providers Care Back Shoe Cutter Name Role Phone Umm Coley MD Primary Care Provider + [place] RN Unavailable [phone] Reason for Visit * Reason Comments Med Change Request Encounter Details Date Type Department Care Team ([facility] st Contact Info) Description 03/20/2023 Refill [facility] ADULT DENTAL [address] [place] [address] Johnny Gonzalez DMD [address] [place] [address] Social History Tobacco Use Types Packs/Day Years [...] 03/24/2025 2:00 PM EDT Office Visit [facility] ADULT DENTAL [address] [place] [address] Yovani Fountain 05/02/2025 10:30 AM EDT Office Visit [facility] MEDICINE [address] [place] [address] Umm Coley MD [address] [place] [address] documented as of this encounter Visit Diagnoses Not on filedocumented in this encounter Care Teams Back Shoe Cutter Relationship Specialty Start Date End Date Umm Coley MD [address] [place] [address] PCP - General Family Medicine 10/31/16 [place], BEBA [address] [place] [address] Manufacturing BakerLicensed Audiologist 01/12/25 Eva Nunez Manufacturing Baker 04/05/24 07/06/24 [facility] 05/11/24 11/17/24 [facility] 11/14/24 01/17/25 [employer] 12/08/24 documented as of this encounter
--- OUTSIDE RECORDS SUMMARY | 2025-03-17 11:56 | XMS_ITS | Encounter Summary ---
Author Organization [employer] Address [address] [facility] 7t [place] [address] Care Team Providers Care Retail Property Manager Name Role Phone Umm Coley MD Primary Care Provider + West Meier RN Unavailable [phone] Reason for Visit * Reason Comments Med Refill Encounter Details Date Type Department Care Team ([facility] Contact Info) Description 02/05/2023 Refill [facility] [address] [place] [address] Umm Coley MD [address] [place], [place] [phone] Arthritis of knee Social History Tobacco Use [...] Upcoming Encounters Date Type Department Care Team ([facility] Contact Info) Description 03/24/2025 2:00 PM EDT Office Visit [facility] ADULT DENTAL [address] [place] [address] Yovani Fountain 05/02/2025 10:30 AM EDT Office Visit [facility] [address] [place] [address] Umm Coley MD [address] [place] [address] documented as of this encounter Visit Diagnoses Diagnosis Arthritis of knee Unspecified arthropathy, lower leg documented in this encounter Care Teams Retail Property Manager Relationship Specialty Start Date End Date Umm Coley MD [address] [place] [address] PCP - General Family Medicine 10/31/16 West Meier, BEBA [address] [place] [address] [employer] ParalegalRotary Shear Cutter 01/12/25 Eva Nunez [employer] Paralegal 04/05/24 07/06/24 [facility] 05/11/24 11/17/24 [facility] 11/14/24 01/17/25 [employer] 12/08/24 documented as of this encounter
--- OUTSIDE RECORDS SUMMARY | 2025-03-17 11:56 | XMS_ITS | Encounter Summary ---
Author Organization [employer] Address [address] [facility] 7t [place] [address] Care Team Providers Care Sql Database Administrator Name Role Phone Umm Coley MD Primary Care Provider + [place] Me[place] RN Unavailable [phone] Reason for Visit * Reason Onset Date Comments Appointment 03/17/2023 Encounter Details Date Type Department Care Team ([facility] st Contact Info) Description 03/17/2023 Telephone [facility] ADULT DENTAL [address] [place] [address] Johnny Gonzalez, WILIAN [address] [place], [place] [phone] Appointment Social History Tobacco Use Types Packs/Day [facility] [address] [place] [address] Yovani Fountain 05/02/2025 10:30 AM EDT Office Visit [facility] MEDICINE [address] [place] [address] Umm Coley MD [address] [place] [address] documented as of this encounter Visit Diagnoses Not on filedocumented in this encounter Care Teams Sql Database Administrator Relationship Specialty Start Date End Date Umm Coley MD [address] [place] [address] PCP - General Family Medicine 10/31/16 [place] Me[place], BEBA [address] [place] [address] KaiawhinaTransfer Driver 01/12/25 Eva Nunez Kaiawhina 04/05/24 07/06/24 [facility] 05/11/24 11/17/24 [facility] 11/14/24 01/17/25 IWT 12/08/24 documented as of this encounter
--- OUTSIDE RECORDS SUMMARY | 2025-03-17 11:56 | XMS_ITS | Encounter Summary ---
Author Organization [employer] Address [address] [facility] 7t [place] [address] Care Team Providers Care Investigations Chief Name Role Phone Umm Coley MD Primary Care Provider + [place] Me[place] RN Unavailable [phone] Reason for Visit * Reason Comments Med Change Request Encounter Details Date Type Department Care Team ([facility] st Contact Info) Description 03/20/2023 Refill [facility] ADULT DENTAL [address] [place] [address] Johnny Gonzalez DMD [address] [place] [address] Social History Tobacco Use Types Packs/Day Years [...] 03/24/2025 2:00 PM EDT Office Visit [facility] ADULT [facility] [address] [place] [address] Yovani Fountain 05/02/2025 10:30 AM EDT Office Visit [facility] MEDICINE [address] [place] [address] Umm Coley MD [address] [place] [address] documented as of this encounter Visit Diagnoses Not on filedocumented in this encounter Care Teams Investigations Chief Relationship Specialty Start Date End Date Umm Coley MD [address] [place] [address] PCP - General Family Medicine 10/31/16 [place], BEBA [address] [place] [address] Manager Food SafetyTrail Maintenance Worker 01/12/25 Eva Nunez Manager Food Safety 04/05/24 07/06/24 [facility] 05/11/24 11/17/24 [facility] 11/14/24 01/17/25 [employer] 12/08/24 documented as of this encounter
--- OUTSIDE RECORDS SUMMARY | 2025-03-17 11:56 | XMS_ITS | Encounter Summary ---
Author Organization [employer] Address [address] [place] [address] 7t [place] [address] Care Team Providers Care Physical Security Specialist Name Role Phone Umm Coley MD Primary Care Provider + [place] RN Unavailable [phone] Reason for Visit * Reason Comments Med Refill Encounter Details Date Type Department Care Team (Late Contact Info) Description 06/10/2023 Refill [facility] [address] [place] [address] Yenny Morris MD [address] [place] [address] Rash Social History Tobacco Use Types Packs/Day [...] Description 03/24/2025 2:00 PM EDT Office Visit [facility] ADULT DENTAL [address] [place] [address] Yovani Fountain 05/02/2025 10:30 AM EDT Office Visit [facility] [address] [place] [address] Umm Coley MD [address] [place] [address] documented as of this encounter Visit Diagnoses Diagnosis Rash Rash and other nonspecific skin eruption documented in this encounter Additional Health Concerns Assessment Noted Time PHQ-9 Depression Total Score: 12 023 1:58 PM EDT documented as of this encounter Care Teams Physical Security Specialist Relationship Specialty Start Date End Date Umm Coley MD [address] [place] [address] PCP - General Family Medicine 10/31/16 [place] Meier, BEBA [address] [place] [address] Smasher HandCorrosion Control Engineer 01/12/25 Eva Nunez Smasher Hand 04/05/24 07/06/24 [facility] 05/11/24 11/17/24 [facility] 11/14/24 01/17/25 [employer] 12/08/24 documented as of this encounter
--- OUTSIDE RECORDS SUMMARY | 2025-03-17 11:56 | XMS_ITS | Encounter Summary ---
Author Organization [employer] Address [address] [facility] 7t [place] [address] Care Team Providers Care Cotton Stomper Name Role Phone Umm Coley MD Primary Care Provider + [place] Me[place] RN Unavailable [phone] Encounter Details Date Type Department Care Team ([facility] st Contact Info) Description 08/23/2024 Orders Only [facility] CH[facility] ADULT DENTAL [address] [place], [place] [phone] Johnny Gonzalez, DMD [address] [place] [address] Social History Tobacco Use Types Packs/Day Years [...] Encounters Date Type Department Care Team ([facility] st Contact Info) Description 03/24/2025 2:00 PM EDT Office Visit [facility] ADULT DENTAL [address] [place] [address] Yovani Fountain 05/02/2025 10:30 AM EDT Office Visit [facility] MED[facility] [address] [place] [address] Umm Coley MD [address] [place] [address] documented as of this encounter Visit Diagnoses Not on filedocumented in this encounter Additional Health Concerns Assessment Noted Time PHQ-9 Depression Total Score: 10 024 9:17 AM EDT documented as of this encounter Care Teams Cotton Stomper Relationship Specialty Start Date End Date Umm Coley MD [address] [place] [address] PCP - General Family Medicine 10/31/16 [place] Meier, RN [address] [place] [address] Blasting WorkerWaste Management Engineer 01/12/25 [facility] 05/11/24 11/17/24 [facility] 11/14/24 01/17/25 [employer] 12/08/24 documented as of this encounter
--- OUTSIDE RECORDS SUMMARY | 2025-03-17 11:56 | XMS_ITS | Encounter Summary ---
Author Organization [employer] Address [address] [place] [address] 7t [place] [address] Care Team Providers Care Amortization Clerk Name Role Phone Umm Coley MD Primary Care Provider + [place] Me[place] RN Unavailable [phone] Reason for Visit * Reason Onset Date Comments appt 01/08/2024 Encounter Details Date Type Department Care Team ([facility] st Contact Info) Description 01/08/2024 Telephone [facility] ADULT DENTAL [address] [place], [place] [phone] Homer Strong, DDS [address] [place], [place] [phone] appt Social History Tobacco Use Types Packs/Day [...] 2:00 PM EDT Office Visit [facility] ADULT DENTAL [address] [place] [address] Yovani Fountain 05/02/2025 10:30 AM EDT Office Visit [facility] MEDICINE [address] [place] [address] Umm Coley MD [address] [place] [address] documented as of this encounter Visit Diagnoses Not on filedocumented in this encounter Additional Health Concerns Assessment Noted Time PHQ-9 Depression Total Score: 21 024 11:31 AM EST documented as of this encounter Care Teams Amortization Clerk Relationship Specialty Start Date End Date Umm Coley MD [address] [place] [address] PCP - General Family Medicine 10/31/16 [place] Meier, BEBA [address] [place] [address] Agile Java DeveloperMortar Man 01/12/25 Eva Nunez Agile Java Developer 04/05/24 07/06/24 [facility] 05/11/24 11/17/24 [facility] 11/14/24 01/17/25 [employer] 12/08/24 documented as of this encounter
--- OUTSIDE RECORDS SUMMARY | 2025-03-17 11:56 | XMS_ITS | Encounter Summary ---
Author Organization [employer] Address [address] [place] [address] 7t [place] [address] Care Team Providers Care Diesel Service Apprentice Name Role Phone Umm Coley MD Primary Care Provider + [place] Meier RN Unavailable [phone] Reason for Visit * Reason Onset Date Comments pre med prior to dental treatment 08/23/2024 Encounter Details Date Type Department Care Team ([facility] st Contact Info) Description 08/23/2024 Telephone [facility] ADULT DENTAL [address] [place] [address] Johnny Gonzalez, DMD [address] [place] [address] pre med prior to dental treatment Social [...] spoke with Nina in the front office administrator with a run through of what was happening with the patient and she stated she would also send something to provider for clarificationDR documented in this encounter Plan of Treatment Upcoming Encounters Date Type Department Care Team (Late st Contact Info) Description 03/24/2025 2:00 PM EDT Office Visit [facility] ADULT DENTAL [address] [place] [address] Yovani Fountain 05/02/2025 10:30 AM EDT Office Visit [facility] MED[facility]INE [address] [place] [address] Umm Coley MD [address] [place], [place] [phone] documented as of this encounter Visit Diagnoses Not on filedocumented in this encounter Additional Health Concerns Assessment Noted Time PHQ-9 Depression Total Score: 10 024 9:17 AM EDT documented as of this encounter Care Teams Diesel Service Apprentice Relationship Specialty Start Date End Date Umm Coley MD [address] [place], [place] [phone] PCP - General Family Medicine 10/31/16 West Meier, RN [address] [place] [address] Rn PlasticsPeer Educator 01/12/25 [facility] 05/11/24 11/17/24 [facility] 11/14/24 01/17/25 [employer] 12/08/24 documented as of this encounter
--- OUTSIDE RECORDS SUMMARY | 2025-03-17 11:56 | XMS_ITS | Encounter Summary ---
Author Organization [employer] Address [address] [facility] 7t [place] [address] Care Team Providers Care Crtts Name Role Phone Umm Coley MD Primary Care Provider + West Meier RN Unavailable [phone] Encounter Details Date Type Department Care Team (Late Contact Info) Description 03/05/2023 Orders Only [facility] MEDICINE [address] [place], [place] [phone] Umm Coley MD [address] [place], [place] [phone] Social History Tobacco Use Types Packs/Day Years [...] Description 03/24/2025 2:00 PM EDT Office Visit [facility] ADULT DENTAL [address] [place] [address] Yovani Fountain 05/02/2025 10:30 AM EDT Office Visit [facility] MEDICINE [address] [place] [address] Umm Coley MD [address] [place] [address] documented as of this encounter Visit Diagnoses Not on filedocumented in this encounter Care Teams Crtts Relationship Specialty Start Date End Date Umm Coley MD [address] [place] [address] PCP - General Family Medicine 10/31/16 West Meier RN [address] [place] [address] Net DeveloperRoad Passenger Firer 01/12/25 Eva Nunez Net Developer 04/05/24 07/06/24 [facility] 05/11/24 11/17/24 [facility] 11/14/24 01/17/25 [employer] 12/08/24 documented as of this encounter
[2025-03-17 11:58] VITALS: BP 97/53; PULSE 84; BMI 20.7
== END 2025-03-17 12:39 | disposition home or self-care (01) ==
LOC: HO.HGI 11:49
PROVIDERS: PCP Internal Medicine; Visit Provider Nurse Practitioner
DX: K21.9 Gastro-esophageal reflux disease without esophagitis (principal); K58.2 Mixed irritable bowel syndrome
CPT/HCPCS: 99213

== ENCOUNTER → 2025-03-17 11:49 | Outpatient (BNVA) | payer MEDICAID, SELFPAY | PROVIDERS: PCP Internal Medicine; Visit Provider Nurse Practitioner | DX: K21.9 Gastro-esophageal reflux disease without esophagitis (principal); K58.2 Mixed irritable bowel syndrome; R10.9 Unspecified abdominal pain | CPT/HCPCS: 99212 ==

== ENCOUNTER 2025-04-12 13:14 | Outpatient (AMB) | payer MEDICAID, SELFPAY ==
--- NOTE | 2025-04-12 13:29 | MHC.OFFVIS ---
Vital Signs 04/12/25 13:31 Height 5 ft Weight 105 lb BMI 20.5 Intake Visit Reasons: Cheryl Patient New Prob- Left Knee Pain Intake Note: Diana is a 59 year old, Mozambican speaking, female who presents today for her left knee pain. Patient reports ongoing knee pain, she would like to discuss knee injection. Cork Insulator Helper Required: Yes Cork Insulator Helper Language: Statistical Typist Services: Cork Insulator Helper Present Cork Insulator Helper Name: JuanA ntonio ID#[id number] Allergies codeine [CODEINE] Allergy (Intermediate, Verified 04/12/25 13:31) DIZZY/NAUSEA, nausea/vomiting escitalopram [From LEXAPRO] Allergy (Intermediate, Verified 04/12/25 13:31) ? NAUSEA meperidine [MEPERIDINE] Allergy (Intermediate, Verified 04/12/25 13:31) NAUSEA morphine [MORPHINE] Allergy (Intermediate, Verified 04/12/25 13:31) PALPITATIONS, palpitation oxycodone [OXYCODONE] Allergy (Intermediate, Verified 04/12/25 13:31) PALPATATIONS, palpitations tramadol Allergy (Unknown, Verified 04/12/25 13:31) dizziness, nausea HPI HPI Cheryl Patient New Prob- Left Knee Pain: Details: 60-year-old female returns to the office today for ongoing left knee pain. She has had MRI of the left knee which was negative for any structural abnormalities. She continues to complain of diffuse pain in the left knee with daily activities such as stairs. She has been seen by pain management who did not feel she was a candidate for genicular injections. She has been seen by Rheumatology and is SHALONDA positive and diagnosed with fibromyalgia. She has not seen them since 2022. She states she has tried physical therapy and this has only made the pain worse. She states her previous injection with me in the left knee was not very helpful. [facility] Medical History (Updated 02/17/25 @ 15:38 by REINA Barrios) Primary osteoarthritis of right hand Migraine Right shoulder pain Rotator cuff tendinitis Arthritis of right shoulder region Right hand pain Breast cancer, right Status post radiation therapy Anemia Diarrhea Depression Somatization disorder Migraine equivalent syndrome Anxiety Periodontal disease Fibromyalgia Surgical History History of esophagogastroduodenoscopy (EGD) History of lumpectomy Hx of section Hx of shoulder surgery Hx of colonoscopy Family History Mother HTN (hypertension) Sister Breast cancer Bone cancer Colon polyps Sister Osteoporosis Hypercholesteremia Colon polyps Social History Household Members: None Housing: Apartment Are you a primary health care technician to a significant other at home: No Do you presently have visiting nurse or other home services: No Alcohol intake: never Patient Tobacco Use Status: Former Tobacco user Years Smoked: 3 service: No Current occupational status: disabled 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 Assessment & Plan Assessment & Plan (1) Arthritis of left knee: Code(s): M17.12 - Unilateral primary osteoarthritis, left knee Category: Medical (2) Fibromyalgia: Code(s): M79.7 - Fibromyalgia Category: Medical Plan I reviewed with Ms. Myles her MRI once again and explained there are no structural abnormalities. I explained to her there is some degenerative changes around the patellofemoral joint which can contribute to her discomfort. I strongly encouraged her to modify activities and reduce stair climbing wear deep bending and squatting activities. I encouraged her to work with physical therapy to help strengthen the surrounding muscles to take load off of the knee. She is not interested in pursuing physical therapy. I offered her an injection which she is not sure if she would like to proceed with given minimal relief in the past. I explained to the patient I will send her back to Rheumatology since it has been 2 years since she has seen them. I do not have anything else to offer Ms. Myles at this time given her hesitation to proceed with my recommended therapies. If she is interested in a steroid injection she can come back to our office to be seen for this. Otherwise I have no other intervention to help with her chronic pain. She can also reach out to her primary care provider if she would like medication to help with her discomfort. No further visits with me at this time. Orders: Referrals Rheumatology Referral M79.7 - Fibromyalgia, R76.8 - Other specified abnormal immunological findings in serum Coding Level of Care Code Est Pt Level 3 (08012) Complex EM visit Add On G2211 Diagnoses Arthritis of left knee M17.12 Fibromyalgia M79.7
[2025-04-12 13:31] VITALS: BMI 20.5
== END 2025-04-12 15:34 | disposition home or self-care (01) ==
LOC: HO.HOS 13:14
PROVIDERS: PCP Internal Medicine; Visit Provider Physician Assistant
DX: M17.12 Unilateral primary osteoarthritis, left knee (principal); M79.7 Fibromyalgia
CPT/HCPCS: 99213

== ENCOUNTER → 2025-04-12 13:14 | Outpatient (BNVA) | payer MEDICAID, SELFPAY | PROVIDERS: PCP Internal Medicine; Visit Provider Physician Assistant | DX: M17.12 Unilateral primary osteoarthritis, left knee (principal); M79.7 Fibromyalgia | CPT/HCPCS: 99212 ==

== ENCOUNTER 2025-04-13 13:10 | Outpatient (RCR) | payer MEDICAID, SELFPAY ==
--- NOTE | 2025-02-13 13:41 | MHC.OT.EP ---
[address] [phone] Occupational Therapy Plan of Care Patient Name: Diana Myles Date of Evaluation: 02/13/25 Diagnosis: Right DRF, CTR Pain Location: Right wrist, sharp pain through volar wrist, dorsal hand and radiating into hand Pt wearing pre-kerrie orthosis (one she owned before - states the post-op orthosis from ortho was too small) Pain Score: 9 Pain Scale Used: Numeric (0 - 10) Aggravating Factors: Worse w/ use Alleviating Factors: Ice to wrist, Ibuprofen and Tylenol Assessment: 60 yo female fell 12/23/24 and went to ED, found to have right distal radius fracture and ulna fracture. She was seen 12/28/24 in ortho and registered for surgery. Now post-op right distal radius ORIF and CTR. She had follow-up 02/01/25 w/ cast removal and placed in prefab orthosis, then referred to OT for cont'd management. On assessment today, she is very stiff through digits and wrist. Wrist ext/flex at 26/10 and pro/sup 60/0 with digits coming only 8 cm tip-palm. She appears motivated, she is very agreeable and receptive to education. We will continue OT services to progress range, strength and overall functional use of right hand for daily activities. Frequency and Duration: The patient will be seen 2x/wk for 6 weeks Short Term Goals: Ind w/ HEP Pt to report ease w/ drinking cup Hand grasp 5 cm tip-palm Wrist ext 40 degrees Wrist flex 30 degrees Forearm sup 30 degrees Gross grasp >5lb Clerk Of Works Goals: Pt to report ease w/ feeding bird QuickDASH score <60 pts Wrist ext/flex 60/60 Forearm sup >70 degrees Ind w/ scar management Right gross grasp >20lb Treatment Plan: Therapeutic Exercise Therapeutic Activity Home Exercise Program Splinting Neuro Re-ed Patient Education Desensitization/Sensory Re-ed Edema Control ADL Training Paraffin Fluidotherapy MHP Cold Packs Joint Mobilization Soft Tissue Mobilization Kinesiotaping Electronically Signed By: Yamila Castillo OTR/L CHT Please Sign and return to therapist. Thank you once again for your referral.
--- NOTE | 2025-03-09 13:58 | MHC.OT.OP ---
[address] [phone] F: [phone] Occupational Therapy Progress Note Patient Name: Diana Myles Diagnosis: Right DRF, CTR Date of Surgery: 01/02/25 Date of Evaluation: 02/13/25 Treatments to Date: 7 Subjective: It's tight (in the wrist) Pain Score: 6 Pain Location: right wrist Objective Measures: GG R 3lb L 38lb Wrist ext/flex 18/40 -> 25/55 after heat and stretch Forearm pro/sup 70/40 -> sup to 50 after stretch Digits 4 cm tip-palm (tight at baseline due to OA) -> 3 cm after heat and stretch Assessment: Diana is 9.5 weeks post op, reports good follow through with HEP and able to demo instructed techniques, but no significant carry over w/ range between sessions. Makes okay gains with heat and stretch during therapy, but specifically still VERY tight w/ extension. Pain intermittently during treatment but tolerates well. Encouraged to increase time and frequency of HEP, we are also trialing static extension orthosis and will progress range with gains. Short Term Goals: Ind w/ HEP Pt to report ease w/ drinking cup Hand grasp 5 cm tip-palm Wrist ext 40 degrees Wrist flex 30 degrees Forearm sup 30 degrees Gross grasp >5lb Bottomer Operator Goals: Pt to report ease w/ feeding bird QuickDASH score <60 pts Wrist ext/flex 60/60 Forearm sup >70 degrees Ind w/ scar management Right gross grasp >20lb Frequency and Duration: The patient will be seen 2x/wk for 6 weeks Treatment Plan: Therapeutic Exercise Therapeutic Activity Home Exercise Program Splinting Patient Education Edema Control ADL Training Fluidotherapy MHP Cold Packs Joint Mobilization Soft Tissue Mobilization Kinesiotaping Trialing static extension orthosis Electronically Signed By: Yamila Castillo OTR/L CHT Reviewed/agree with student documentation: Therapist:
--- NOTE | 2025-04-10 14:19 | MHC.OT.OP ---
[address] [phone] F: [phone] Occupational Therapy Progress Note Patient Name: Diana Myles Diagnosis: Right DRF, CTR Date of Surgery: 01/02/25 Date of Evaluation: 02/13/25 Treatments to Date: 15 Cancellations to Date: 3 No Shows to Date: 3 Subjective: It still hurts Pain Score: 6 Pain Location: right wrist Objective Measures: GG R 5lb L 40lb Wrist ext/flex 32/40 Forearm pro/sup 70/60 Digits 4 cm tip-palm (tight at baseline due to OA) Status: Not Progressing Assessment: Diana is 14 weeks post op, reports good follow through with HEP and able to demo instructed techniques, but no significant carry over w/ range between sessions. We have only been able to obtain 40 degrees flex in AROM and 50 w/ PROM; extension to 32 degrees AROM and minimal gains w/ passive stretching; supination to 70 degrees. She makes some gains during therapy but is unable to maintain gains and still has significant tightness through digits. She was instructed to increase therapy three times a week but was unable to attend at this frequency due to pain and limitations with scheduling. We have one more appointment this week but will not be scheduling further visits due to poor carry over and inability to make progress over last several weeks. Short Term Goals: Ind w/ HEP (met) Pt to report ease w/ drinking cup (met) Hand grasp 5 cm tip-palm (met) Wrist ext 40 degrees Wrist flex 30 degrees (met) Forearm sup 30 degrees (met) Gross grasp >5lb Orthophoto Tech/Draftsman Goals: Pt to report ease w/ feeding bird (met) QuickDASH score <60 pts Wrist ext/flex 60/60 Forearm sup >70 degrees Ind w/ scar management Right gross grasp >20lb Frequency and Duration: The patient will be seen 2x/wk for 6 weeks Treatment Plan: Therapeutic Exercise Therapeutic Activity Home Exercise Program Splinting Patient Education Edema Control ADL Training Fluidotherapy MHP Cold Packs Joint Mobilization Soft Tissue Mobilization Kinesiotaping Trialing static extension orthosis Electronically Signed By: Yamila Castillo OTR/L CHT Reviewed/agree with student documentation: Therapist:
--- NOTE | 2025-04-17 09:36 | MHC.OT.DC ---
[address] [phone] F: [phone] Occupational Therapy Discharge Note Patient Name: Diana Myles Provider: Zhou Sosa PA-C Diagnosis: Right DRF, CTR Date of Surgery: 01/02/25 Date of Evaluation: 02/13/25 Date of Discharge: Treatments to Date: 16 Cancellations to Date: 3 No Shows to Date: 3 Discharge Status: Independent with HEP Discharge Summary: 14.5 weeks R DRF w/ ORIF and CTR. No change in strength, range or strength; still difficulty w/ daily activities (washing face, using utensils). Reviewed HEP today, given new handouts and tools, pt reports she has been participating in HEP and trying to do activities. Plateau in OT services, d/c at this time. Electronically Signed By: Yamila Castillo OTR/L CHT Please Sign and return to therapist, thank you for your referral.
== END 2025-04-17 09:37 | disposition home or self-care (01) ==
LOC: HO.OT 13:10
PROVIDERS: PCP Internal Medicine
DX: S52.501D Unspecified fracture of the lower end of right radius, subsequent encounter for closed fracture with routine healing (principal)
CPT/HCPCS: 29125; 97110; 97140; 97165; 97530; 97760

== ENCOUNTER 2025-05-09 12:49 | Outpatient (AMB) | payer MEDICAID, SELFPAY ==
--- NOTE | 2025-05-09 13:07 | MHC.OFFVIS ---
Intake Visit Reasons: OV: Rt wrist ORIF/Rt CTR DOS 01/02/25-ROM check Intake Note: Diana is a 60 year old female who presents today for a follow up appointment s/p right Distal Radius ORIF/CTR on 01/02/25 AR. She was instructed to continue with a 5lb lifting restriction and also given an order for OT. Patient stated no numbness or tingling to report at this time, that she has mild pain but not constant. Security Operations Analyst Required: Yes Security Operations Analyst Services: Security Operations Analyst Present Security Operations Analyst Name: Judd Cormier - # [id number] Allergies codeine (CODEINE) Allergy (Intermediate, Verified 05/09/25 13:11) DIZZY/NAUSEA, nausea/vomiting escitalopram (From LEXAPRO) Allergy (Intermediate, Verified 05/09/25 13:11) ? NAUSEA meperidine (MEPERIDINE) Allergy (Intermediate, Verified 05/09/25 13:11) NAUSEA morphine (MORPHINE) Allergy (Intermediate, Verified 05/09/25 13:11) PALPITATIONS, palpitation oxycodone (OXYCODONE) Allergy (Intermediate, Verified 05/09/25 13:11) PALPATATIONS, palpitations tramadol Allergy (Unknown, Verified 05/09/25 13:11) dizziness, nausea HPI HPI OV: Rt wrist ORIF/Rt CTR DOS 01/02/25-ROM check: Details: Diana is a 60 year old female who presents today for a follow up appointment s/p right Distal Radius ORIF/CTR on 01/02/25 AR. She was instructed to continue with a 5lb lifting restriction and also given an order for OT. Patient stated no numbness or tingling to report at this time, that she has mild pain but not constant. [facility] Medical History (Updated 05/15/25 @ 12:22 by Randy Mccallum MA) Paresthesia of skin Tension headache MCI (mild cognitive impairment) Peripheral neuropathy Breast cancer Primary osteoarthritis of right hand Migraine Right shoulder pain Rotator cuff tendinitis Arthritis of right shoulder region Right hand pain Breast cancer, right Status post radiation therapy Anemia Diarrhea Depression Somatization disorder Migraine equivalent syndrome Anxiety Periodontal disease Fibromyalgia Surgical History History of esophagogastroduodenoscopy (EGD) History of lumpectomy Hx of section Hx of shoulder surgery Hx of colonoscopy Family History Mother HTN (hypertension) Sister Breast cancer Bone cancer Colon polyps Sister Osteoporosis Hypercholesteremia Colon polyps Social History Household Members: None Housing: Apartment Are you a primary director day care center to a significant other at home: No Do you presently have visiting nurse or other home services: No Alcohol intake: never Patient Tobacco Use Status: Former Tobacco user Years Smoked: 3 service: No Current occupational status: disabled 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 Review of Systems Const All systems reviewed & are unremarkable except as noted in HPI and below Physical Exam Extrem Other: Incision sites on R wrists well approximated, well healing, no evidence of infection No evidence of surrounding erythema However, there is erythema noted on the dorsal radial styloid and ulnar styloid, improved from last visit Ecchymosis resolved Patient does experience significant stiffness in the digits of the right hand, but the patient states that this is present long before surgery Patient was only able to supinate to approximately 30 degrees past neutral, pronation almost full and intact Compartments soft, nontender Distal sensation intact Capillary refill brisk Assessment & Plan Assessment & Plan (1) Fracture of right distal radius: Code(s): S52.501A - Unspecified fracture of the lower end of right radius, initial encounter for closed fracture Category: Medical Plan 1. Status post right distal radius ORIF DOS 01/02/2025 Patient appears to be recovering postoperatively Patient is educated typical recovery course This time, patient advised that she should only wear the Velcro wrist splint when she is leaving house Patient was advised she should remove the splint while at rest to begin working on gentle range of motion of the right wrist and hand Continue with exercises given by OT at home, as range of motion is improving significantly and we will only continue to improve Patient was amenable to this plan Follow-up as needed Coding Level of Care Code Est Pt Level 3 (65292) Diagnoses Fracture of right distal radius S52.501A
--- OUTSIDE RECORDS SUMMARY | 2025-05-09 13:33 | XMS_ITS | Encounter Summary ---
Author Organization [employer] Address [address] [facility] [address] [place] [address] Care Team Providers Care Flight Crew Ordnanceman Name Role Phone Umm Coley MD Primary Care Provider + West Meier RN Unavailable [phone] Encounter Details Date Type Department Care Team ([facility] st Contact Info) Description 11/03/2022 Orders Only [facility] MEDICINE [address] [place], [place] [phone] Umm Coley MD [address] [place], [place] [phone] Osteopenia after menopause (Primary Dx) Social History [...] documented in this encounter Plan of Treatment Scheduled Orders Name Type Priority Associated Diagnoses Orde r Schedule Vitamin D, 25-Hydroxy, Total, Immunoassay Lab Routine Osteopenia after menopause Expected: 11/03/2022 (Approximate), Expires: 11/03/2023 PTH, Intact (ICMA) And Ionized Calcium Lab Routine Osteopenia after menopause Expected: 11/03/2022 (Approximate), Expires: 11/03/2023 documented as of this encounter Visit Diagnoses Diagnosis Osteopenia after menopause- Primary documented in this encounter Care Teams Flight Crew Ordnanceman Relationship Specialty Start Date End Date Umm Coley MD [address] [place] [id number] PCP - General Family Medicine 10/31/16 West Meier RN [address] [place] [address] Warehouse ManagerFinancial Dealers 01/12/25 04/25/25 Eva Nunez Warehouse Manager 04/05/24 07/06/24 [facility] 05/11/24 11/17/24 [facility] 11/14/24 01/17/25 [employer] 12/08/24 documented as of this encounter
== END 2025-05-09 13:48 | disposition home or self-care (01) ==
LOC: HO.HOS 12:56
PROVIDERS: PCP Internal Medicine
DX: S52.501A Unspecified fracture of the lower end of right radius, initial encounter for closed fracture (principal)
CPT/HCPCS: 99213

== ENCOUNTER → 2025-05-09 12:49 | Outpatient (BNVA) | payer MEDICAID, SELFPAY | PROVIDERS: PCP Internal Medicine | DX: S52.501A Unspecified fracture of the lower end of right radius, initial encounter for closed fracture (principal); M25.531 Pain in right wrist | CPT/HCPCS: 99212 ==

== ENCOUNTER 2025-05-17 11:52 | Outpatient (AMB) | payer MEDICAID, SELFPAY ==
--- NOTE | 2025-05-17 11:55 | A.OFFVIS_ITS ---
Intake Visit Reasons: DOES NOT WANt vr Allergies codeine (CODEINE) Allergy (Intermediate, Verified 05/09/25 13:11) DIZZY/NAUSEA, nausea/vomiting escitalopram (From LEXAPRO) Allergy (Intermediate, Verified 05/09/25 13:11) ? NAUSEA meperidine (MEPERIDINE) Allergy (Intermediate, Verified 05/09/25 13:11) NAUSEA morphine (MORPHINE) Allergy (Intermediate, Verified 05/09/25 13:11) PALPITATIONS, palpitation oxycodone (OXYCODONE) Allergy (Intermediate, Verified 05/09/25 13:11) PALPATATIONS, palpitations tramadol Allergy (Unknown, Verified 05/09/25 13:11) dizziness, nausea Medication List - Last Reconciled 05/17/25 by Alberto Sands MD acetaminophen (Tylenol) 325 mg PO QID PRN albuterol sulfate 90 mcg/actuation 2 puffs inhalation Q6H PRN 30 days amitriptyline 100 mg PO BEDTIME amlodipine 2.5 mg PO DAILY ascorbic acid (vitamin C) 500 mg orally Three days a week (--); 28 days budesonide-formoterol 160-4.5 mcg/actuation (Symbicort) 2 puffs inhalation BID buspirone 15 mg PO TID celecoxib (Celebrex) 200 mg PO BID 30 days cholecalciferol (vitamin D3) 50 mcg PO DAILY clonazepam 0.5 mg PO BEDTIME clonazepam 1 mg PO DAILY cyanocobalamin (vitamin B-12) 100 mcg PO DAILY diclofenac sodium 75 mg PO BID dicyclomine 40 mg (2 x 20 mg) PO QID docusate sodium 100 mg PO BID PRN Held on 03/17/25. Instructions: Doctor's Order famotidine 40 mg PO DAILY ferrous sulfate 325 mg PO MOWEFR 30 days fluticasone propion-salmeterol 115-21 mcg/actuation (Advair HFA) 2 puffs inhalation BID galcanezumab-gnlm (Emgality Pen) 240 mg (2 mL) subcut ONCE 30 days hydroxyzine HCl 25 mg PO BEDTIME PRN ibuprofen 600 mg PO Q6-8H PRN loratadine 10 mg PO DAILY meclizine 25 mg orally every 8 hours as needed; melatonin 10 mg (2 x 5 mg) PO BEDTIME 30 days mirtazapine 45 mg PO BEDTIME naproxen 500 mg PO BID PRN 7 days naproxen 500 mg PO BID olanzapine 20 mg PO BEDTIME omeprazole 20 mg PO DAILY polyvinyl alcohol-povidone 0.5-0.6 % (Clear Eyes Natural Tears) drps ophthalmic (eye) prazosin 4 mg PO BEDTIME pregabalin 150 mg PO BID psyllium husk 0.4 grams PO BID ropinirole 0.5 mg (2 x 0.25 mg) PO TID sennosides (senna) 17.2 mg (2 x 8.6 mg) PO BEDTIME PRN 90 days Held on 03/17/25. Instructions: Doctor's Order sertraline 200 mg PO DAILY sumatriptan succinate 100 mg orally . PRN; 100 mg orally at onset of headache, may repeat in 2 hrs PRN; max 2 tabs per day or 4 tabs/week (may take with Naproxen 440mg or Tylenol 1000mg) 30 days MDD 200mg walker As directed HPI Comments Details: 59yr old woman with fibromyalgia. Her pains are under control somewhat. Feel like feet and legs they lock up and she cannot move. Using cane, no falls. Other generalized body pains from FM are unchanged. Dizziness is better, using meclizine as needed. No further episodes of passing out. Headaches are okay. ?She was seen at [facility] 03/01/2024 for dizziness and passing out twice the day before. She is unsure how long she passed out for. No tongue bite or incontinence. No witnesses. MRI brain and CT neck were normal. She felt like the room was spinning and moving up/down, worse when moving her eyes in certain directions. Also had pressure-type headache to left side of head. ?Has diffuse pains in thighs, arms, chest and pain and numbness in legs and hands. Pain worse on bottom of feet more. Has difficulty closing R hand and saw surgeon. Memory about the same. Burning pain, heat, numbness in toes and soles getting worse affects her sleep since 2018. She also has similar milder Sx in hands, with right side worse than left. She also suffers from neck pain. [facility] Medical History (Updated 05/17/25 @ 12:15 by Alberto Sands MD) Migraine Paresthesia of skin Tension headache MCI (mild cognitive impairment) Peripheral neuropathy Breast cancer Primary osteoarthritis of right hand Right shoulder pain Rotator cuff tendinitis Arthritis of right shoulder region Right hand pain Breast cancer, right Status post radiation therapy Anemia Diarrhea Depression Somatization disorder Migraine equivalent syndrome Anxiety Periodontal disease Fibromyalgia Surgical History History of esophagogastroduodenoscopy (EGD) History of lumpectomy Hx of section Hx of shoulder surgery Hx of colonoscopy Family History Mother HTN (hypertension) Sister Breast cancer Bone cancer Colon polyps Sister Osteoporosis Hypercholesteremia Colon polyps Social History Household Members: None Housing: Apartment Are you a primary health care facility administrator to a significant other at home: No Do you presently have visiting nurse or other home services: No Alcohol intake: never Patient Tobacco Use Status: Former Tobacco user Years Smoked: 3 service: No Current occupational status: disabled 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 Difficulty getting to sleep?admits.? Difficulty maintaining sleep?admits .? Urge to move legs?admits.? Sleepwalking?denies.? Teeth grinding?denies.? Shouting or Kicking during sleep?denies.? Abnormal behavior during sleep?denies .? Excessive sleep?denies.? Sleep paralysis?denies.? Snoring?denies.? Daytime sleepiness?denies.? ?? General/Constitutional:? Change in appetite?denies.? Chills?denies.? Fatigue?admits.? Weight gain? denies.? Weight loss?denies.? ?? Cardiovascular:? Chest pain at rest?admits.? Chest pain with exertion?denies.? Dizziness? denies.? Fluid accumulation in the legs?denies.? Irregular heartbeat?denies.? Palpitations?denies.? ?? Gastrointestinal:? Constipation?admits.? Diarrhea?denies.? Difficulty swallowing?denies.? H eartburn?denies.? Nausea?denies.? Rectal bleeding?denies.? ?? Genitourinary:? Frequent urination?denies.? Urgency?denies.? Incontinence?denies.? ?? Skin:? Dry skin?denies.? Hives?denies.? Rash?denies.? ?? Neurologic:? Difficulty swallowing?denies.? Balance difficulty?denies.? Coordination? normal.? Difficulty speaking?denies.? Dizziness?admits.? Fainting?denies.? Gait abnormality?denies.? Headache?admits.? Loss of strength?denies.? Loss of use of extremity?denies.? Low back pain?denies.? Memory loss?admits.? Seizures?denies.? Tics?denies.? Tingling/Numbness?admits.? Transient loss of vision?denies.? Tremor?denies.? ?? Psychiatric:? Anxiety?admits.? Auditory/visual hallucinations?denies.? Delusions?denies .? Depressed mood?admits.? Stressors?admits.? Substance abuse?denies.? Suicidal thoughts?denies.? ?? Physical Exam Neuro Other: General Examination: ? GENERAL APPEARANCE:?normal,?in no acute distress.? SKIN:?no rashes,?no significant birthmarks.? HEART:?S1, S2 normal,?no murmurs.? LUNGS:?clear anteriorly and posteriorly.? EXTREMITIES:?no edema.? PSYCH:?alert, oriented,?cognitive function intact,?cooperative with exam.? Neurological: ? Abnormal neurological findings:?DTRs 1+, vibration sensation absent in feet and hands. Walking with cane.? Mental Status:?Alert and awake with a flat affect.?.? Cranial Nerves:?Pupils are equal, round and reactive to light. External occular muscles are intact. Visual mednia are full. Face is symmetrical. Facial sensations are normal. Tongue is midline. Palate elevates symmetrically. Shoulder shrugging is normal. Hearing to bedside conversation is normal.?.? Motor Examination:?Normal muscle tone, bulk and strength,?Deep tendon reflexes are 1+?,?Plantars are flexor?.? Sensory Exam:?Vibration sensation absent in hands and feet.?.? Coordination:?no ataxia,?no titubation.? Gait Exam:?with cane.? Extrapyramidal System:?No tremor, rigidity with normal facial expressions.? Pronator Drift:?not present?.? Involuntary Movements:?No tremors seen?.? Speech:?Normal.? Assessment & Plan Assessment & Plan (1) Fibromyalgia: Code(s): M79.7 - Fibromyalgia Category: Medical (2) Somatization disorder: Code(s): F45.0 - Somatization disorder Category: Medical (3) Syncope: Code(s): R55 - Syncope and collapse Category: Medical (4) Migraine: Code(s): G43.909 - Migraine, unspecified, not intractable, without status migrainosus Category: Medical Qualifiers: Migraine type: migraine (< 15 days per month) without aura Status migrainosus presence: without status migrainosus Intractability: not intractable Qualified Code(s): G43.009 - Migraine without aura, not intractable, without status migrainosus Plan Continue current meds. She does not have a list of updated meds, so reconciliation may not be accurate Coding Level of Care Code Est Pt Level 4 (10984) Diagnoses Fibromyalgia M79.7 Somatization disorder F45.0 Syncope R55 Migraine without aura and without status migrainosus, not intractable G43.009 Migraine type: migraine (< 15 days per month) without aura Status migrainosus presence: without status migrainosus Intractability: not intractable
--- OUTSIDE RECORDS SUMMARY | 2025-05-17 12:58 | XMS_ITS | Encounter Summary ---
Author Organization [employer] Address [address] [place] [address] [address] [place] [address] Care Team Providers Care Weaver Needle Loom Name Role Phone Umm Coley MD Primary Care Provider + West Meier RN Unavailable [phone] West Meier RN Unavailable [phone] Encounter Details Date Type Department Care Team (Late st Contact Info) Description 11/03/2022 Orders Only [facility] MEDICINE [address] [place], [place] [phone] Umm Coley MD [address] [place], [place] [phone] Osteopenia after menopause (Primary Dx) Social History [...] Primary documented in this encounter Care Teams Weaver Needle Loom Relationship Specialty Start Date End Date Umm Coley MD [address] [place] [id number] PCP - General Family Medicine 10/31/16 West Meier, BEBA [address] [place] [address] Mass Spectrometry SpecialistComputational Mathematician 01/12/25 04/25/25 West Meier, BEBA [address] [place] [address] Registered Nurse Family Medicine 05/10/25 Eva Nunez Mass Spectrometry Specialist 04/05/24 07/06/24 [facility] 05/11/24 11/17/24 [facility] 11/14/24 01/17/25 [employer] [facility] 12/08/24 documented as of this encounter
== END 2025-05-17 12:20 | disposition home or self-care (01) ==
LOC: HO.HSM 11:53
PROVIDERS: PCP Internal Medicine; Referring Provider Internal Medicine; Visit Provider Psychiatry & Neurology Neurology
DX: M79.7 Fibromyalgia (principal); F45.0 Somatization disorder; R55 Syncope and collapse; G43.009 Migraine without aura, not intractable, without status migrainosus
CPT/HCPCS: 99214

== ENCOUNTER → 2025-05-17 11:52 | Outpatient (BNVA) | payer MEDICAID, SELFPAY | PROVIDERS: PCP Internal Medicine; Referring Provider Internal Medicine; Visit Provider Psychiatry & Neurology Neurology | DX: M79.7 Fibromyalgia (principal); F45.0 Somatization disorder; R55 Syncope and collapse; G43.009 Migraine without aura, not intractable, without status migrainosus | CPT/HCPCS: 99212 ==

== ENCOUNTER 2025-06-07 12:48 | Outpatient (AMB) | payer MEDICAID, SELFPAY ==
[2025-06-07 13:09] VITALS: BP 100/60; PULSE 80; O2SAT 99; BMI 21.5
--- NOTE | 2025-06-07 13:09 | A.OFFVIS_ITS ---
Vital Signs 06/07/25 13:09 Height 5 ft Weight 110 lb BMI 21.5 BP 100/60 Blood Pressure Location Lt brachial Position Sitting Pulse 80 Pulse Source Pulse Oximeter Pulse Oximetry (%) 99 Oxygen Delivery Method Room Air Intake Visit Reasons: asthma Services Executive Required: Yes Services Executive Name: Zara Hammer.Ryan.Chris Allergies codeine (CODEINE) Allergy (Intermediate, Verified 06/07/25 13:15) DIZZY/NAUSEA, nausea/vomiting escitalopram (From LEXAPRO) Allergy (Intermediate, Verified 06/07/25 13:15) ? NAUSEA meperidine (MEPERIDINE) Allergy (Intermediate, Verified 06/07/25 13:15) NAUSEA morphine (MORPHINE) Allergy (Intermediate, Verified 06/07/25 13:15) PALPITATIONS, palpitation oxycodone (OXYCODONE) Allergy (Intermediate, Verified 06/07/25 13:15) PALPATATIONS, palpitations tramadol Allergy (Unknown, Verified 06/07/25 13:15) dizziness, nausea HPI HPI asthma: Details: 60-year-old lady, former minimal smoker, with underlying history of treated TB in her late teens, right breast cancer status post lumpectomy, chemo, and radiation in 2010 referred for evaluation of dyspnea on exertion that occurs after patient walks for several blocks.? She has had a recent negative cardiac workup.? Patient denies prior personal history of lung disease.? She has lots of first-degree relatives with asthma.? Patient has had COVID back in December of 2020, however her dyspnea symptoms predate but got worse after her COVID infection.? She denies any wheezing, cough, sputum production.? She has multiple environmental allergies. Her pulmonary function test showed mild decrease in diffusion capacity and otherwise has been unremarkable.? Her CT chest is normal and pulmonary function test that is essentially normal with only minor defect in diffusion capacity that does not explain her symptoms. Patient was not able tolerate Trelegy secondary to it being powder inhaler. She was not able to receive BrezTri or Bevespi. She has been using Symbicort with some symptom control. She was not able to complete her cardiopulmonary exercise test secondary to worsening pain in her left knee. [facility] Medical History (Updated 05/17/25 @ 12:15 by Alberto Sands MD) Migraine Paresthesia of skin Tension headache MCI (mild cognitive impairment) Peripheral neuropathy Breast cancer Primary osteoarthritis of right hand Right shoulder pain Rotator cuff tendinitis Arthritis of right shoulder region Right hand pain Breast cancer, right Status post radiation therapy Anemia Diarrhea Depression Somatization disorder Migraine equivalent syndrome Anxiety Periodontal disease Fibromyalgia Surgical History History of esophagogastroduodenoscopy (EGD) History of lumpectomy Hx of section Hx of shoulder surgery Hx of colonoscopy Family History Mother HTN (hypertension) Sister Breast cancer Bone cancer Colon polyps Sister Osteoporosis Hypercholesteremia Colon polyps Social History Household Members: None Housing: Apartment Are you a primary senior care assistant to a significant other at home: No Do you presently have visiting nurse or other home services: No Alcohol intake: never Patient Tobacco Use Status: Former Tobacco user Years Smoked: 3 service: No Current occupational status: disabled 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 Review of Systems Const Denies daytime sleepiness, Denies excessive sweating, Denies fatigue, Denies fever(s), Denies lethargy, Denies malaise, Denies night sweats, Denies snoring and Denies weight loss Eyes Denies blurry vision and Denies itchy eyes ENT Denies nasal congestion, Denies post nasal drip, Denies sinus pain, Denies sinus pressure and Denies other ( Thrush) Card Denies chest pain, Denies pedal edema, Denies dyspnea, Reports dyspnea on exertion, Denies orthopnea and Denies paroxysmal nocturnal dyspnea Resp Denies cough, Denies hemoptysis, Denies excessive phlegm production, Denies dyspnea, Reports dyspnea on exertion, Denies snoring and Denies wheezing GI Denies abdominal pain and Denies heartburn Musc Denies myalgias, Denies arthralgias and Denies joint swelling Skin/Breast Denies rash Neuro Denies memory loss and Denies seizure-like activity Psych Denies abnormal sleep pattern, Denies anxiety and Denies memory loss Endo Denies excessive sweating, Denies fatigue and Denies heat intolerance Marko/Lymph Denies easy bruising Aller/Immun Denies itchy eyes, Denies seasonal rhinorrhea and Denies wheezing Physical Exam Vital Signs: Last Vital Signs Pulse 80 08/06/25 13:09 BP 100/60 06/07/25 13:09 Pulse Ox 99 06/07/25 13:09 Oxygen Delivery Method Room Air 06/07/25 13:09 BMI result Body Mass Index 21.5 Const General: no acute distress and alert Nutritional Appearance: not obese Orientation/consciousness: Other orientation findings ( oriented) HEENT Head: Yes atraumatic Eyes General: appearance normal, both eyes and all related structures Sclerae: sclerae normal EOM: EOMs intact bilaterally Neck Neck: Yes supple Lymphatic: no lymphadenopathy noted Resp Effort & Inspection: normal respiratory effort and no use of accessory muscles Auscultation: clear to auscultation bilaterally Cardio Rate: regular rate Rhythm: regular rhythm Heart sounds: no gallops, no murmurs and no rubs Skin General skin exam: other ( warm) Extrem General: No clubbing, No cyanosis and No edema Assessment & Plan Assessment & Plan (1) Reactive airway disease: Code(s): J45.909 - Unspecified asthma, uncomplicated Category: Medical Plan: Well controlled on Symbicort albuterol MDI. Continue current regimen. (2) Dyspnea on exertion: Code(s): R06.00 - Dyspnea, unspecified Category: Medical Plan: Unclear etiology unable to exercise on treadmill. Will obtain pharmacologic stress test. Coding Level of Care Code Est Pt Level 4 (40601) Diagnoses Reactive airway disease J45.909 Dyspnea on exertion R06.00
--- OUTSIDE RECORDS SUMMARY | 2025-06-07 13:19 | XMS_ITS | Encounter Summary ---
Author Organization [employer] Address [address] [place] [address] 7t [place] [address] Care Team Providers Care Dinkey Motor Operator Name Role Phone Umm Coley MD Primary Care Provider + West Meier RN Unavailable [phone] West Meier RN Unavailable [phone] Encounter Details Date Type Department Care Team (Late st Contact Info) Description 11/03/2022 Orders Only [facility] MEDICINE [address] [place], [place] [phone] Umm Coley MD [address] [place], [place] [phone] Osteopenia after menopause (Primary Dx) Social History [...] Care Team (Late st Contact Info) Description 08/10/2025 11:45 AM EDT Office Visit [facility] [address] [place] [address] Umm Coley MD [address] [place] [address] Scheduled Orders Name Type Priority Associated Diagnoses Orde r Schedule Vitamin D, 25-Hydroxy, Total, Immunoassay Lab Routine Osteopenia after menopause Expected: 11/03/2022 (Approximate), Expires: 11/03/2023 PTH, Intact (ICMA) And Ionized Calcium Lab Routine Osteopenia after menopause Expected: 11/03/2022 (Approximate), Expires: 11/03/2023 documented as of this encounter Visit Diagnoses Diagnosis Osteopenia after menopause- Primary documented in this encounter Care Teams Dinkey Motor Operator Relationship Specialty Start Date End Date Umm Coley MD [address] [place] [address] PCP - General Family Medicine 10/31/16 West Meier RN [address] [place] [address] Professional Housing ConsultantPhysician Practice Market Manager 01/12/25 04/25/25 West Meier RN [address] [place] [address] Registered Nurse Family Medicine 05/10/25 Eva Nunez Professional Housing Consultant 04/05/24 07/06/24 [facility] 05/11/24 11/17/24 [facility] 11/14/24 01/17/25 [employer] 12/08/24 documented as of this encounter
== END 2025-06-07 13:29 | disposition home or self-care (01) ==
LOC: HO.HPS 12:48
PROVIDERS: PCP Internal Medicine; Visit Provider Internal Medicine Pulmonary Disease
DX: J45.909 Unspecified asthma, uncomplicated (principal); R06.00 Dyspnea, unspecified
CPT/HCPCS: 99214

== ENCOUNTER → 2025-06-07 12:48 | Outpatient (BNVA) | payer MEDICAID, SELFPAY | PROVIDERS: PCP Internal Medicine; Visit Provider Internal Medicine Pulmonary Disease | DX: J45.909 Unspecified asthma, uncomplicated (principal); R06.00 Dyspnea, unspecified | CPT/HCPCS: 99212 ==

== ENCOUNTER 2025-06-19 11:56 | Emergency (ER) | payer MEDICAID, SELFPAY ==
--- NOTE | ~2025-06-19 | XR_ITS ---
EXAMINATION: XR CHEST CLINICAL INFORMATION: chest pain COMPARISON: 12/27/2024. TECHNIQUE: 2 views of the chest were obtained. FINDINGS: The cardiac, hilar, and mediastinal contours are normal. The lungs are clear bilaterally. There is no pneumothorax or pleural effusion. There is no focal osseous or soft tissue abnormality. There are surgical clips in the right breast and right axilla. XR/XR chest 2V IMPRESSION: No active pulmonary disease. Electronically signed by: Mathieu Lepe MD 06/19/2025 01:09 PM EDT
--- NOTE | 2025-06-19 11:59 | ECG_ITS ---
Test Reason : CHEST PAIN Blood Pressure : */* mmHG Vent. Rate : 72 BPM Atrial Rate : 72 BPM P-R Int : 134 ms QRS Dur : 78 ms QT Int : 358 ms P-R-T Axes : 23 62 39 degrees QTcB Int : 392 ms Normal sinus rhythm Low voltage QRS Borderline ECG When compared with ECG of 10-May-2024 10:15, No significant change was found Referred By: Generic ED Physician Electronically Signed By: JOSELITO GARZA MD
[2025-06-19 12:06] VITALS: BP 124/60; PULSE 79; RESP 16; TEMP 37; O2SAT 97
--- NOTE | 2025-06-19 12:08 | ED.GENADULT ---
HPI - General Adult General Chief complaint: Chest Pain Stated complaint: CP, sob Time Seen by Provider: 06/19/25 18:21 Source: patient Mode of arrival: ambulatory Limitations: no limitations History of Present Illness ED Provider: Diomedes Shultz HPI narrative: 60 yold female with pm of asthma and anemia presents to the ED for coughing, chest pain, and SOB for a couple of days with slight pleurisy. patient states no coughing up blood, recent surgery, recent travel, fever, or chills. patient denies any leg swelling or calf pain. Related Data Home Medications ?Medication ?Instructions ?Recorded ?Confirmed buspirone 15 mg tablet 15 mg PO TID 11/08/20 05/17/25 olanzapine 20 mg tablet 20 mg PO BEDTIME 11/08/20 05/17/25 prazosin 2 mg capsule 4 mg PO BEDTIME 11/08/20 05/17/25 sertraline 100 mg tablet 200 mg PO DAILY 11/08/20 05/17/25 loratadine 10 mg tablet 10 mg PO DAILY 07/16/21 05/17/25 cyanocobalamin (vitamin B-12) 100 100 mcg PO DAILY 05/29/22 05/17/25 mcg tablet cholecalciferol (vitamin D3) 50 50 mcg PO DAILY 07/01/22 05/17/25 mcg (2,000 unit) capsule amitriptyline 100 mg tablet 100 mg PO BEDTIME 10/22/22 05/17/25 meclizine 25 mg tablet 25 mg PO .COMPLEX 03/23/24 05/17/25 hydroxyzine HCl 25 mg tablet 25 mg PO BEDTIME PRN insomnia 02/16/25 05/17/25 polyvinyl alcohol-povidone 0.5 drp ophthalmic (eye) 02/16/25 05/17/25 %-0.6 % eye drops (Clear Eyes Natural Tears) diclofenac sodium 75 mg 75 mg PO BID 03/17/25 05/17/25 tablet,delayed release mirtazapine 45 mg tablet 45 mg PO BEDTIME 03/17/25 05/17/25 amlodipine 2.5 mg tablet 2.5 mg PO DAILY 05/15/25 05/17/25 famotidine 40 mg tablet 40 mg PO DAILY 05/15/25 05/17/25 fluticasone propionate 115 2 puff inhalation BID 05/15/25 05/17/25 mcg-salmeterol 21 mcg/actuation HFA inhaler (Advair HFA) Previous Rx's ?Medication ?Instructions ?Recorded naproxen 500 mg tablet 500 mg PO BID #60 tabs 01/18/24 clonazepam 0.5 mg tablet 0.5 mg PO BEDTIME #1 tab 03/02/24 clonazepam 1 mg tablet 1 mg PO DAILY #1 tab 03/02/24 walker #1 ea 03/02/24 galcanezumab-gnlm 120 mg/mL 240 mg (2 mL) subcut ONCE 30 days 06/13/24 subcutaneous pen injector #2 mL (Emgality Pen) albuterol sulfate 90 mcg/actuation 2 puff inhalation Q6H PRN for 07/14/24 aerosol inhaler wheezing 30 days #8.5 ea celecoxib 200 mg capsule (Celebrex) 200 mg PO BID 30 days #60 caps 09/26/24 budesonide-formoterol HFA 160 2 puff inhalation BID #10.2 grams 11/04/24 mcg-4.5 mcg/actuation aerosol inhaler (Symbicort) psyllium husk 0.4 gram capsule 0.4 g PO BID #180 caps 11/07/24 ascorbic acid (vitamin C) 250 mg 500 mg (2 x 250 mg) PO .COMPLEX 28 11/15/24 chewable tablet days #12 tabs sennosides 8.6 mg tablet (senna) 17.2 mg (2 x 8.6 mg) PO BEDTIME 12/14/24 Held on 03/17/25. PRN Constipation 90 days #90 tabs Instructions: Doctor's Order sumatriptan succinate 100 mg tablet 100 mg PO .COMPLEX PRN migraine 12/14/24 headache 30 days #12 tabs acetaminophen 325 mg tablet 325 mg PO QID PRN pain #28 tabs 12/23/24 (Tylenol) naproxen 500 mg tablet 500 mg PO BID PRN pain 7 days #28 12/23/24 tabs ferrous sulfate 325 mg (65 mg 325 mg PO MOWEFR 30 days #13 tabs 12/30/24 iron) tablet ibuprofen 600 mg tablet 600 mg PO Q6-8H PRN pain #20 tabs 01/02/25 docusate sodium 100 mg capsule 100 mg PO BID PRN for constipation 01/12/25 Held on 03/17/25. #180 caps Instructions: Doctor's Order melatonin 5 mg tablet 10 mg (2 x 5 mg) PO BEDTIME Sleep 02/17/25 30 days #60 tabs dicyclomine 20 mg tablet 40 mg (2 x 20 mg) PO QID #240 tabs 03/17/25 omeprazole 20 mg capsule,delayed 20 mg PO DAILY #90 caps 03/17/25 release ropinirole 0.25 mg tablet 0.5 mg (2 x 0.25 mg) PO TID #180 04/14/25 tabs pregabalin 150 mg capsule 150 mg PO BID 30 days #60 caps 06/07/25 benzonatate 200 mg capsule 200 mg PO TID PRN cough #15 caps 06/19/25 prednisone 20 mg tablet 40 mg (2 x 20 mg) PO DAILY 5 days 06/19/25 #10 tabs Allergies Allergy/AdvReac Type Severity Reaction Status Date / Time codeine (CODEINE) Allergy Intermediate DIZZY/NAUSEA, Verified 06/19/25 12:07 nausea/vomiting escitalopram (From LEXAPRO) Allergy Intermediate ? NAUSEA Verified 06/19/25 12:07 meperidine (MEPERIDINE) Allergy Intermediate NAUSEA Verified 06/19/25 12:07 morphine (MORPHINE) Allergy Intermediate PALPITATIONS, Verified 06/19/25 12:07 palpitation oxycodone (OXYCODONE) Allergy Intermediate PALPATATIONS, Verified 06/19/25 12:07 palpitations tramadol Allergy Unknown dizziness, Verified 06/19/25 12:07 nausea Review of Systems Review of Systems: coughing, SOB, and chest pain Yes all other systems are reviewed and are negative [facility] Past Medical History Medical History (Updated 06/20/25 @ 00:01 by [employer] [facility]) Migraine Paresthesia of skin Tension headache MCI (mild cognitive impairment) Peripheral neuropathy Breast cancer Primary osteoarthritis of right hand Right shoulder pain Rotator cuff tendinitis Arthritis of right shoulder region Right hand pain Breast cancer, right Status post radiation therapy Anemia Diarrhea Depression Somatization disorder Migraine equivalent syndrome Anxiety Periodontal disease Fibromyalgia Surgical History History of esophagogastroduodenoscopy (EGD) History of lumpectomy Hx of section Hx of shoulder surgery Hx of colonoscopy Family History Family History Mother HTN (hypertension) Sister Breast cancer Bone cancer Colon polyps Sister Osteoporosis Hypercholesteremia Colon polyps Social History Social History Household Members: None Housing: Apartment Are you a primary care management specialist to a significant other at home: No Do you presently have visiting nurse or other home services: No Alcohol intake: never Patient Tobacco Use Status: Former Tobacco user Years Smoked: 3 Advance Directives: No Advance Directives Information Provided: No service: No Current occupational status: disabled 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 Physical Exam ED Vital Signs: Vital Signs - 24 hr 06/19/25 12:06 Temperature 98.6 F Pulse Rate 79 Respiratory Rate 16 Blood Pressure 124/60 Pulse Oximetry 97 Oxygen Delivery Method Room Air BMI result Body Mass Index 20.0 Const General: cooperative, healthy appearing, comfortable, no acute distress, well developed, alert, awake and Physically active; No acute distress Orientation/consciousness: patient oriented x3 HENMT Head: Yes normal to inspection, Yes No palpable skull fracture present, Yes normocephalic and Yes atraumatic Ears: hearing grossly normal bilaterally, external ears normal, TM's normal bilaterally, TM normal on the right, TM normal on the left, EAC's normal, mastoids normal and no periauricular adenopathy Throat: Yes posterior oropharynx normal, Yes tonsils normal and Yes uvula midline Eyes General: appearance normal, both eyes and all related structures Neck Neck: Yes normal visual inspection, Yes full ROM, Yes no lymphadenopathy, Yes no meningeal signs, Yes trachea midline, Yes supple, No anterior neck swelling and No lymphadenopathy Chest Chest palpation & inspection: normal inspection of the chest and normal palpation of entire chest wall Resp Effort & Inspection: normal respiratory effort and able to speak in complete sentences Auscultation: clear to auscultation bilaterally Cardio Jugular venous distension: no JVD Heart sounds: S1 normal heart sound present and S2 normal heart sound present GI Inspection: Yes normal to inspection Palpation (GI): Soft to palpation, not firm, nontender, no guarding and not rigid General: Yes no CVA tenderness Back/Spine/Pelvis Back: no CVA tenderness and No back tenderness Skin General skin exam: no rashes or lesions noted, elasticity normal and turgor normal Neuro General: patient oriented x3, gait normal, tone normal, moves all extremities, Normal light touch and pain sensation, no meningeal signs, no focal motor deficits and CN's II-XI intact bilaterally Extrem Other: no leg swelling, pitting edema, or calf tenderness General: Yes normal to inspection, Yes full ROM and Yes capillary refill normal Psych Appearance: grossly normal, well kempt and not disheveled Course Course Course Narrative: This is a Rapid Medical Examination (RME) performed by Vel Nolasco PA-C in triage. Full HPI, ROS, assessment and treatment plan per primary provider in the Main ED. Hx: 60 yo F hx of tubular adenoma, anemia, asthma, GERD, and fibromyalgia here for eval of sternal chest pain x3 days, with radiation to back. pain has been constant since onset. worse with breathing. using albuterol inhaler and tylenol without relief. Plan: ekg, cxr, labs Medical Decision Making Medical Decision Making [facility] Narrative: 60 yold female presents to the ED for coughing for couple of days with chest pain, and shortness of breath. Patient denies any leg swelling, pittingg edema, or calf pain. Patient denies any history of blood clot, recent long travel or recent surgery. EKG negative STEMI. Chest x-ray negative pneumonia pneumothorax. Two troponin negative. D-dimer negative. Not suspecting myocarditis, heart failure, dissection, AAA aneurysm, or any other life-threatening etiology. Patient informed to continue taking albuterol inhaler will be discharged with prednisone and cough medication. Patient explained worrisome signs and informed to return to the ED immediately Differential Diagnosis Differential Diagnoses: The differential diagnosis associated with the presentation includes (ME, PE, asthma) Admission/Observation Consideration of admission/observation: Escalation of care including admission/observation considered Lab Data [facility] Lab Attestation statement: I reviewed the patient's lab results. 06/19/25 12:19 06/19/25 12:19 Labs: Lab Results 06/19/25 06/19/25 06/19/25 Range/Units 12:19 16:33 20:07 WBC 4.8 (4.8-10.8) X10*3/uL RBC 4.26 (4.20-5.50) X10*6/uL Hgb 13.0 (12.0-16.0) g/dl Hct 38.7 (37.0-47.0) % MCV 90.8 (80.0-98.0) fL MCH 30.5 (27.0-33.0) pg MCHC 33.6 (31.0-35.0) g/dl RDW 13.8 (11.0-16.0) % Plt Count 276 (160-400) X10*3/uL MPV 8.6 L (9.4-12.3) fL Immature Gran % (Auto) 0.2 (0.0-0.4) % Neut % (Auto) 53.9 (45-73) % Lymph % (Auto) 37.7 (20-40) % [place] % (Auto) 6.5 (2-11) % Eos % (Auto) 1.3 (0-4) % Baso % (Auto) 0.4 (0-2) % Lymph # (Auto) 1.8 (1.2-4.9) X10*3/uL [place] # (Auto) 0.3 (0.1-1.2) X10*3/uL Eos # (Auto) 0.1 (0.0-0.4) X10*3/uL Baso # (Auto) 0.0 (0.0-0.2) X10*3/uL Abs Immat Gran (auto) 0.01 (0.00-0.03) X10*3/uL Absolute Neuts (auto) 2.6 (2.0-8.3) x10*3/uL Absolute Nucleated RBC 0.000 (0.0-0.012) X10*3/uL Nucleated RBC % (auto) 0.0 (0.0-0.2) /100WBC PT 9.9 L (10.9-12.4) SEC INR 0.9 (0.9-1.1) APTT 29.1 (26.7-34.1) SEC D-Dimer High Sensitivty < 150 NG/ML Sodium 141 (135-145) mmol/L Potassium 3.8 (3.3-5.1) mmol/L Chloride 106 (96-108) mmol/L Carbon Dioxide 27 (22-29) mmol/L Anion Gap 12 (12-20) BUN 14 (9-16) mg/dL Creatinine 0.83 (0.5-1.4) mg/dL Estim Creat Clear Calc 54.9 Estimated GFR > 60 Random Glucose 87 (60-115) mg/dL Calcium 9.6 (8.4-10.2) mg/dL Magnesium 2.0 (1.6-2.6) mg/dL Total Bilirubin 0.4 (0.0-1.0) mg/dL AST 27 (5-31) U/L ALT 18 (0-31) U/L Alkaline Phosphatase 117 (39-117) U/L Troponin I High Sens < 2.7 < 2.7 (<3.5-17.0) ng/L Total Protein 7.2 (6.5-8.0) g/dL Albumin 4.8 (3.5-5.0) g/dL Lipase 26 (8-78) U/L Influenza Type A (PCR) NEGATIVE (Negative) Influenza Type B (PCR) NEGATIVE (Negative) RSV RNA Qual (PCR) NEGATIVE (Negative) SARS-CoV-2 RNA (RT-PCR) NEGATIVE (Negative) Independent Interpretation I performed an independent interpretation of an: EKG (NEgative STEMi) Independent Historian Clinical information obtained from an independent historian. History obtained from or confirmed by: Other (patient) Prescription Management I considered prescription management with: Other (prednisone, tessalon pealres) Discharge Plan Discharge Clinical Impression: Asthma, Chest pain Patient Disposition: Home, Self-Care Instructions: Chest Pain (ED), Asthma (ED) Additional Instructions: Recommend follow up with primary care provider. Labs EKG chest x-ray were reassuring. Continue taking your albuterol inhaler. You will be discharged with steroids and cough medication. Return to the ED immediately for any chest pain, shortness of breath, coughing up blood, fever, chills, leg swelling, calf pain, or any other concerning symptoms. Prescriptions: New prednisone 20 mg tablet 40 mg PO DAILY 5 Days Qty: 10 0RF benzonatate 200 mg capsule 200 mg PO TID PRN (Reason: cough) Qty: 15 0RF No Action naproxen 500 mg tablet 500 mg PO BID Qty: 60 3RF albuterol sulfate 90 mcg/actuation HFA aerosol inhaler 2 puff inhalation Q6H PRN (Reason: for wheezing) 30 Days Qty: 8.5 6RF psyllium husk 0.4 gram capsule 0.4 g PO BID Qty: 180 2RF ascorbic acid (vitamin C) 250 mg tablet,chewable 500 mg PO .COMPLEX 28 Days Qty: 12 6RF Rx Instructions: 500 mg orally Three days a week (); sennosides [senna] 8.6 mg tablet 17.2 mg PO BEDTIME PRN (Reason: Constipation) 90 Days Qty: 90 6RF sumatriptan succinate 100 mg tablet 100 mg PO .COMPLEX MDD 200mg PRN (Reason: migraine headache) 30 Days Qty: 12 6RF Rx Instructions: 100 mg orally . PRN; 100 mg orally at onset of headache, may repeat in 2 hrs PRN; max 2 tabs per day or 4 tabs/week (may take with Naproxen 440mg or Tylenol 1000mg) ferrous sulfate 325 mg (65 mg iron) tablet 325 mg PO MOWEFR 30 Days Qty: 13 6RF docusate sodium 100 mg capsule 100 mg PO BID PRN (Reason: for constipation) Qty: 180 1RF melatonin 5 mg tablet 10 mg PO BEDTIME 30 Days Qty: 60 6RF ropinirole 0.25 mg tablet 0.5 mg PO TID Qty: 180 3RF pregabalin 150 mg capsule 150 mg PO BID 30 Days Qty: 60 5RF naproxen 500 mg tablet 500 mg PO BID PRN (Reason: pain) 7 Days Qty: 28 0RF acetaminophen [Tylenol] 325 mg tablet 325 mg PO QID PRN (Reason: pain) Qty: 28 0RF ibuprofen 600 mg tablet 600 mg PO Q6-8H PRN (Reason: pain) Qty: 20 0RF clonazepam 0.5 mg Tablet 0.5 mg PO BEDTIME Qty: 1 0RF clonazepam 1 mg Tablet 1 mg PO DAILY Qty: 1 0RF (DME) walker Misc See Rx Instructions .Route Qty: 1 0RF Rx Instructions: As directed loratadine 10 mg tablet 10 mg PO DAILY buspirone 15 mg tablet 15 mg PO TID sertraline 100 mg tablet 200 mg PO DAILY olanzapine 20 mg tablet 20 mg PO BEDTIME prazosin 2 mg capsule 4 mg PO BEDTIME cyanocobalamin (vitamin B-12) 100 mcg tablet 100 mcg PO DAILY cholecalciferol (vitamin D3) 50 mcg (2,000 unit) capsule 50 mcg PO DAILY amitriptyline 100 mg tablet 100 mg PO BEDTIME meclizine 25 mg tablet 25 mg PO .COMPLEX Rx Instructions: 25 mg orally every 8 hours as needed; famotidine 40 mg tablet 40 mg PO DAILY amlodipine 2.5 mg tablet 2.5 mg PO DAILY fluticasone propion-salmeterol [Advair HFA] 115-21 mcg/actuation HFA aerosol inhaler 2 puff inhalation BID Emgality Pen 120 mg/mL pen injector 240 mg subcut ONCE 30 Days Qty: 2 0RF Rx Instructions: Loading dose: 120 mg subcu injection x2 in alternate sites (total 240 mg). To be followed by maintenance dose of 120 mg subcu q.month. celecoxib [Celebrex] 200 mg capsule 200 mg PO BID 30 Days Qty: 60 3RF diclofenac sodium 75 mg tablet,delayed release (DR/EC) 75 mg PO BID mirtazapine 45 mg tablet 45 mg PO BEDTIME omeprazole 20 mg capsule,delayed release(DR/EC) 20 mg PO DAILY Qty: 90 2RF dicyclomine 20 mg tablet 40 mg PO QID Qty: 240 3RF budesonide-formoterol [Symbicort] 160-4.5 mcg/actuation HFA aerosol inhaler 2 puff inhalation BID Qty: 10.2 6RF Clear Eyes Natural Tears 0.5-0.6 % drops ophthalmic (eye) hydroxyzine HCl 25 mg tablet 25 mg PO BEDTIME PRN (Reason: insomnia) Referrals: Umm Coley MD [Primary Care Provider, Internal Medicine] - 2 days Referral Note: Chest pain asthma Clinical Impression: Chest pain; Asthma Stand Alone Forms: Work/School Release Interventions: ED Discharge Assessment Last Done: 06/19/25 21:30 Discharge Date/Time: 06/19/25 21:31 Print Language: French
[2025-06-19 12:24] LABS: MANUAL DIFF FLAG NO
[2025-06-19 12:27] LABS: Hematocrit 38.7 % (37.0-47.0); Hemoglobin 13.0 g/dl (12.0-16.0); Imm Gran Abs Auto 0.01 X10*3/uL (0.00-0.03); Imm Gran Pct Auto 0.2 % (0.0-0.4); Lymphocytes Absolute Auto 1.8 X10*3/uL (1.2-4.9); Mean Corpuscular HGB Conc 33.6 g/dl (31.0-35.0); Mean Corpuscular Hemoglobin 30.5 pg (27.0-33.0); Mean Corpuscular Volume 90.8 fL (80.0-98.0); NRBC Abs Auto 0.000 X10*3/uL (0.0-0.012); NRBC Pct Auto 0.0 /100WBC (0.0-0.2); Platelet Count 276 X10*3/uL (160-400); Red Blood Count 4.26 X10*6/uL (4.20-5.50); White Blood Count 4.8 X10*3/uL (4.8-10.8)
[2025-06-19 12:51] LABS: Alanine Aminotransferase 18 U/L (0-31); Albumin Level 4.8 g/dL (3.5-5.0); Alkaline Phosphatase 117 U/L (39-117); Anion Gap 12 (12-20); Aspartate Amino Transferase 27 U/L (5-31); Blood Urea Nitrogen 14 mg/dL (9-16); Calcium 9.6 mg/dL (8.4-10.2); Carbon Dioxide 27 mmol/L (22-29); Chloride 106 mmol/L (96-108); Creatinine Clr Calc Pharmacy 54.9; Estimated Glomerular Filt Rate > 60; Lipase 26 U/L (8-78); Magnesium 2.0 mg/dL (1.6-2.6); Potassium 3.8 mmol/L (3.3-5.1); Sodium 141 mmol/L (135-145); Total Protein 7.2 g/dL (6.5-8.0)
[2025-06-19 12:59] LABS: Troponin-I High Sensitivity < 2.7 ng/L (<3.5-17.0)
[2025-06-19 17:00] LABS: Troponin-I High Sensitivity < 2.7 ng/L (<3.5-17.0)
[2025-06-19 17:14] LABS: Resp Syncy Virus RNA Qual PCR NEGATIVE (Negative); SARS COV2 PCR INHOUSE NEGATIVE (Negative)
[2025-06-19 20:20] LABS: INTERNATIONAL NORM RATIO 0.9 (0.9-1.1); Prothrombin Time 9.9 SEC (10.9-12.4)
[2025-06-19 20:23] LABS: Partial Thromboplastin Time 29.1 SEC (26.7-34.1)
[2025-06-19 20:26] LABS: D Dimer High Sensitivity < 150 NG/ML
--- NOTE | 2025-06-19 21:29 | PC.NURSE ---
discharged by provider from [facility]. pt refusing to have vitals obtained prior to d/c d/t long wait time.
[2025-06-19 21:30] VITALS: BP 0/0; PULSE 0; RESP 0; TEMP -17.7; TEMP 0; O2SAT 0
== END 2025-06-19 21:31 | disposition home or self-care (01) ==
PROVIDERS: Physician Assistant; Physician Assistant Medical; Emergency Provider Emergency Medicine; PCP Internal Medicine
DX: J45.909 Unspecified asthma, uncomplicated (principal); R07.9 Chest pain, unspecified; R05.9 Cough, unspecified; R06.02 Shortness of breath
CPT/HCPCS: 36415; 71046; 80053; 83690; 83735; 84484; 85025; 85379; 85610; 85730; 87637; 93005; 99283

== ENCOUNTER → 2025-06-19 11:59 | Outpatient (BNV) | payer MEDICAID, SELFPAY | PROVIDERS: Emergency Provider Emergency Medicine; PCP Internal Medicine; Visit Provider Internal Medicine Cardiovascular Disease | DX: R07.9 Chest pain, unspecified (principal) | CPT/HCPCS: 93010 ==

== ENCOUNTER → 2025-06-19 12:13 | Outpatient (BNV) | payer MEDICAID, SELFPAY | PROVIDERS: Visit Provider Radiology Diagnostic Radiology | DX: R07.9 Chest pain, unspecified (principal) | CPT/HCPCS: 71046 ==

== ENCOUNTER 2025-06-23 13:05 | Outpatient (REF) | payer MEDICAID, SELFPAY ==
--- NOTE | ~2025-06-23 | XR_ITS ---
EXAMINATION: XR FINGER, LEFT CLINICAL INFORMATION: fingertip pain and swelling s/p trauma COMPARISON: None available. TECHNIQUE: AP hand with oblique and lateral views of the left third digit of the left hand. FINDINGS: Curvilinear lucency through the tip of the tuft of the distal phalanx of the third digit is likely related to trabecular pattern rather than a fracture. No other areas raise question of a fracture. XR/XR finger LT min 2V IMPRESSION: Curvilinear lucency through the tip of the tuft of the distal phalanx of the third digit is likely related to the trabecular pattern rather than a fracture, correlate clinically. Electronically signed by: Elton Lau MD 06/23/2025 01:24 PM EDT RP
--- OUTSIDE RECORDS SUMMARY | 2025-06-23 13:09 | XMS_ITS | Encounter Summary ---
Author Organization [facility] Address [address] [place] [address] [address] [place] [address] Care Team Providers Care Agricultural Service Technician Name Role Phone Umm Coley MD Primary Care Provider + West Meier RN Unavailable [phone] West Meier RN Unavailable [phone] Shannan Covington Unavailable Encounter Details Date Type Department Care Team (Late st Contact Info) Description 11/03/2022 Orders Only [facility] [address] [place], [place] [id number] Umm Coley MD [address] [place], [place] [phone] Osteopenia after menopause (Primary Dx) Social History [...] Description 08/10/2025 11:45 AM EDT Office Visit [facility] [address] [place], [place] [id number] Umm Coley MD [address] [place], [place] [phone] Scheduled Orders Name Type Priority Associated Diagnoses Orde r Schedule Vitamin D, 25-Hydroxy, Total, Immunoassay Lab Routine Osteopenia after menopause Expected: 11/03/2022 (Approximate), Expires: 11/03/2023 PTH, Intact ([facility]) And Ionized Calcium Lab Routine Osteopenia after menopause Expected: 11/03/2022 (Approximate), Expires: 11/03/2023 documented as of this encounter Visit Diagnoses Diagnosis Osteopenia after menopause- Primary documented in this encounter Care Teams Agricultural Service Technician Relationship Specialty Start Date End Date Umm Coley MD [address] [place], [place] [phone] PCP - General Family Medicine 10/31/16 West Meier, RN [address] [place] [address] Civil Engineering AssistantFishing Floats Assembler 01/12/25 04/25/25 West Meier, RN [address] [place] [address] Registered Nurse Family Medicine 05/10/25 Shannan Covington 06/08/25 06/08/25 Eva Nunez Civil Engineering Assistant 04/05/24 07/06/24 [facility] 05/11/24 11/17/24 [facility] 11/14/24 01/17/25 [facility] 12/08/24 [facility] 05/18/25 documented as of this encounter
== END 2025-06-23 13:06 | disposition home or self-care (01) ==
LOC: HO.HHCX 13:05
PROVIDERS: Visit Provider Family Medicine
DX: M79.645 Pain in left finger(s) (principal)
CPT/HCPCS: 73140

== ENCOUNTER → 2025-06-23 13:06 | Outpatient (BNV) | payer MEDICAID, SELFPAY | PROVIDERS: Visit Provider Radiology Diagnostic Radiology | DX: M79.645 Pain in left finger(s) (principal) | CPT/HCPCS: 73140 ==

== ENCOUNTER 2025-07-12 13:19 | Outpatient (AMB) | payer MEDICAID, SELFPAY ==
--- OUTSIDE RECORDS SUMMARY | 2025-07-12 11:00 | XMS_ITS | Encounter Summary ---
Author Organization [employer] Address [address] [place] [address] Care Team Providers Care Cardiac Cath Lab Radiology Technologist Name Role Phone Umm Coley MD Primary Care Provider + [place] RN Unavailable [phone] Reason for Visit * Reason Comments sick onsite Encounter Details Date Type Department Care Team ([facility] st Contact Info) Description 07/12/2025 11:00 AM EDT Office Visit [facility] MEDICINE [address] [place], [place] [phone] Umm Coley MD [address], [place] [phone] Other specified hypotension (Primary Dx) Social History Tobacco Use Types Packs/Day Years Used Date Smoking Tobacco: Never Passive Smoke Exposure: Never Smokeless Tobacco: Never Alcohol Use Standard Drinks/Week Comments Never 0 (1 standard drink = 0.6 oz pur e alcohol) Depression Answer Date Recorded Patient Health Questionnaire-9 Score 18 07/12/2025 Patient Health Questionnaire-9 Score 18 07/12/2025 Last PHQ-9: Questionnaire Data Not on file 0 07/12/2025 Housing Stability Answer Date Recorded What is your housing situation today? I am not s ure 05/02/[address] you li ve. Do you have problems with any of the following? None of the above 05/02/2025 Food Insecurity Answer Date Recorded Within the past 12 months, y ou worried that your food would run out before you got money to buy more: Never True 05/02/2025 Within the past 12 months,th e food you bought just didn't last and you didn't have enough money to get more: Never True 11/2024 Transportation Answer Date Recorded In the past 12 months, has l ack of transportation kept you from medical appts, meetings, work or from getting things needed for daily living? No 05/02/2025 Intimate Partner Violence Answer Date R ecorded Within the last year, have y ou been afraid of your partner or ex-partner? 2 05/12/2025 Within the last year, have y ou been humiliated or emotionally abused in other ways by your partner or ex-partner? 2 Within the last year, have y ou been kicked, hit, slapped, or otherwise physically hurt by your partner or ex-partner? 2 05/12/2025 Within the last year, have y ou been raped or forced to have any kind of sexual activity by your partner or ex-partner? 2 05/12/2025 Utilities Answer Date Recorded In the past 12 months, has t he electric, gas, oil or water company threatened to shut off services in your home? No 05/02/2025 Depression Answer Date Recorded Patient Health Questionnaire-2 Score 5 07/12/2025 Internet Access Answer Date Recorded Internet Access Q1 No 05/02/2025 Internet Access Q2 I do not want or need it 11/2024 Comments No Sex and Gender Information Value Date Recorded Sex Assigned at Female 09/01/2022 10:16 AM EDT Legal Sex Female 10:16 AM EDT Gender Identity Female 09/01/2022 10:16 AM EDT Sexual Orientation Straight 09/01/2022 10 :16 AM EDT documented as of this encounter Last Filed Vital Signs Vital Sign Reading Time Taken Comments Blood Pressure 110/82 07/12/2025 11:48 AM EDT Pulse 92 07/12/2025 11:20 AM EDT Temperature 36.3 C (97.4 F) 07/12/2025 11:20 AM EDT Respiratory Rate 23 07/12/2025 11:2 0 AM EDT Oxygen Saturation 97% 07/12/2025 11: 20 AM EDT Inhaled Oxygen Concentration - - Weight 51.2 kg (112 lb 12.8 oz) 025 11:20 AM EDT Height 157.5 cm (5' 2 ) 07/12/2025 11:2 0 AM EDT Body Mass Index 20.63 07/12/2025 11:20 AM EDT documented in this encounter Functional Status * Over the past 2 weeks, how often have you been bothered by any of the following problems? Question Answer Date of Assessment Author Patient Health Questionnaire-2 Score 5 07/03 12:18 PM EDT Ventura Jurado MA * Little interest or pleasure in doing things Answer Date of Assessment Author More than half the days 07/12/2025 12:18 PM EDT Ventura Jurado MA * Feeling down, depressed, or hopeless Answer Date of Assessment Author Nearly every day 07/12/2025 12:18 PM EDT Ryan Jurado MA * Trouble falling or staying asleep, or sleeping too much Answer Date of Assessment Author More than half the days 07/12/2025 12:18 PM EDT Ventura Jurado MA * Feeling tired or having little energy Answer Date of Assessment Author More than half the days 07/12/2025 12:18 PM EDT Ventura Jurado MA * Poor appetite or overeating Answer Date of Assessment Author More than half the days 07/12/2025 12:18 PM EDT Ventura Jurado MA * Feeling bad about yourself - or that you are a failure or have let yourself or your family down Answer Date of Assessment Author More than half the days 07/12/2025 12:18 PM EDT Ventura Jurado MA * Trouble concentrating on things, such as reading the newspaper or watching television Answer Date of Assessment Author Nearly every day 07/12/2025 12:18 PM EDT Ryan Jurado MA * Moving or speaking so slowly that other people could have noticed? Or the opposite - being so fidgety or restless that you have been moving around a lot more than usual. Answer Date of Assessment Author More than half the days 07/12/2025 12:18 PM EDT Ventura Jurado MA * Thoughts that you would be better off or hurting yourself in some way Answer Date of Assessment Author Not at all 07/12/2025 12:18 PM EDT Sally Jurado MA * Patient Health Questionnaire-9 Score Answer Date of Assessment Author 18 07/12/2025 12:18 PM EDT Sally Jurado MA * How difficult have these problems made it for you to do your work, take care of things at home, or get along with other people? Answer Date of Assessment Author Extremely difficult 07/12/2025 12:18 PM EDT Ventura Jurado MA documented as of this encounter Progress Notes * Umm Coley MD - 07/12/2025 11:00 AM EDT SUBJECTIVE: Diana Myles is a 60 y.o. year old female who presents for sick visit/low BP. Denies recent illness, injury, or hospitalization. Acute Concerns: Patient referred by visiting nurse as her BPs at home apparently running low. Historically is patient's BP averages are in the low 100s over 60s and 70s, she does not have history of hypertension nottaking any antihypertensive medications, I had DC amlodipine more than 2 years ago. Most of her medications are for her depression including clonazepam and neuroleptics. The BP log sent by [facility] shows BP 98-115/49-71 HR 70-90 Patient wants to move to a lower floor apartment due to joint pain, needs a letter. Social History Social History Narrative Not on file Problem List[1] Family History[2] Review of Systems Constitutional: Negative for chills, [...] pain and vaginal discharge. Musculoskeletal: Positive for arthralgias and gait problem. Negative for back pain and neck pain. Skin: Negative for rash. Allergic/Immunologic: Negative for environmental allergies. Neurological: Positive for weakness. Negative for dizziness, seizures, light- headedness and headaches. Hematological: Negative for adenopathy. Psychiatric/Behavioral: Negative for agitation, behavioral problems, self-injury and suicidal ideas. OBJECTIVE: Vitals: 07/12/25 1120 07/12/25 1138 07/12/25 1148 BP: 110/80 110/80 110/82 BP Location: Left arm Right arm Right arm Patient Position: Sitting Lying Sitting BP Cuff Size: Adult Adult Adult Pulse: 92 Resp: 23 Temp: 97.4 ??F (36.3 ??C) TempSrc: Oral SpO2: 97% Weight: 112 lb 12.8 oz (51.2 kg) Height: 5' 2 (1.575 m) Physical Exam HENT: Right Ear: Tympanic membrane and ear canal normal. Left Ear: Tympanic membrane and ear canal normal. Mouth/Throat: Mouth: Mucous membranes are moist. Pharynx: No oropharyngeal exudate or posterior oropharyngeal erythema. Eyes: Pupils: Pupils are equal, round, and reactive to light. Cardiovascular: Rate and Rhythm: Regular rhythm. Pulses: Normal pulses. Heart sounds: Normal heart sounds. No murmur heard. Pulmonary: Breath sounds: Normal breath sounds. Abdominal: General: Bowel sounds are normal. Palpations: Abdomen is soft. Tenderness: There is no abdominal tenderness. Musculoskeletal: Right shoulder: Tenderness present. Left shoulder: Tenderness present. Right wrist: Tenderness present. Decreased range of motion (Hand/wrist brace). Cervical back: Neck supple. Right hip: Tenderness present. Decreased range of motion. Left hip: Tenderness present. Decreased range of motion. Right knee: Bony tenderness present. Left knee: Bony tenderness present. Skin: General: Skin is warm. Neurological: General: No focal deficit present. Mental Status: She is alert and oriented to person, place, and time. Psychiatric: Mood and Affect: Mood normal. Behavior: Behavior normal. Problem List Items Addressed This Visit Hypotension - Primary Today's BP is within normal limits, no evidence of orthostatism, patient is asymptomatic. She has had this issue in the past and I have told her that readings are probably related to side effects of medication including neuroleptics, benzodiazepines and muscle relaxers. Discussed with patient importance of staying hydrated, do gentle exercise as tolerated Previous cardiac workup including tilt table test and Holter monitoring has been all within normal limits. Follow Up: Medications Ordered Prior to Encounter[3] [1] Patient Active Problem List Diagnosis Adhesive capsulitis of shoulder UMM positive Apnea Arthritis of knee Asthenia Borderline personality disorder (CMS/HCC) Chronic low back pain Disturbance in sleep behavior Dyspnea on exertion Dysthymia Fibromyositis Generalized anxiety disorder Kidney stone Malaise Malignant neoplasm of female breast (CMS/HCC) Ductal carcinoma of right breast (CMS/HCC) IFG (impaired fasting glucose) Inactive tuberculosis Migraine with aura Migraine without aura, not refractory Neuropathy of both feet Osteopenia Ankle pain Post-traumatic osteoarthritis of right knee Prurigo nodularis Rash Recurrent falls 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) Steatosis of liver Suspected COVID-19 virus infection Vasovagal reaction Facial wart Weight loss Hypotension Problem with neighbors Household circumstance affecting care Carpal tunnel syndrome Hip pain Fatigue Fibromyalgia Headache Right anterior shoulder pain Verruca vulgaris Skin lesion Posttraumatic stress disorder Dental calculus Localized gingival recession Cyst of ethmoid sinus Vertigo Benign paroxysmal vertigo Dry eye Anxiety about health Acute hip pain, left Localized osteoarthritis of left knee Actinic keratoses Dental cavity Asthmatic bronchitis without complication Encounter for monitoring of patient compliance in drug treatment program Intercostal pain [2] Family History Problem Relation Name Age of Onset Heart disease Mother Heart disease Father Breast cancer Sister Bone cancer Sister [3] Current Outpatient Medications on File Prior to [...] tablet TOME NAIMA TABLETA TODOS LOS D ascorbic acid (Vitamin C) 500 MG chewable tablet 1 tab po 1x/w 12 tablet 3 busPIRone (Buspar) 15 MG tablet Take 1 tablet by mouth every 8 (eight) hours. clonazePAM (KlonoPIN) 1 MG tablet Take 1 tablet once daily and take 0.5 mg at bedtime cyanocobalamin (Vitamin B-12) 100 MCG tablet TOME NAIMA TABLETA TODOS LOS MORIN 90 tablet 3 dicyclomine (Bentyl) 20 MG tablet TOME DOS TABLETAS POR V A ORAL CUATRO VECES AL D A docusate sodium (Colace) 100 MG capsule Take 1 capsule by mouth every 12 (twelve) hours. FreeStyle lancets 1 each by Other route Once per day. TEST 3 TIMES A WEEK 100 each 3 glucose blood (FREESTYLE LITE) test strip TEST 3 TIMES A WEEK 100 each 11 loratadine (Claritin) 10 MG tablet TAKE 1 TABLET BY MOUTH EVERY MORNING NEEDED FOR ALLERGIES 90 tablet 0 Melatonin Maximum Strength 5 MG tablet TOME DOS TABLETAS POR V A ORAL TODOS LOS D AL ACOSTARSE CUANDO SEA NECESARIO PARA DORMIR mirtazapine (Remeron) 30 MG tablet TOME NAIMA TABLETA ORALLY BEDTIME REPLACES PRIOR DOSE OF 45 MG OLANZapine (ZyPREXA) 20 MG tablet take 1 tablet by oral route at bedtime prazosin (Minipress) 2 MG capsule Take 1 capsule by mouth at bed time. predniSONE (Deltasone) 10 MG tablet Take 2 tabs PO daily x 3 days then take 1 tab PO daily x 3 days; USE AFTER 40 MG DOSING 9 tablet 0 pregabalin (Lyrica) 150 MG capsule TOME NAIMA [...] tablet PLEASE SEE ATTACHED FOR DETAILED DIRECTIONS Symbicort 160-4.5 MCG/ACT inhaler TOME DOS INHALACIONES POR V A ORAL DOS VECES AL D A triamcinolone (Kenalog) 0.1 % cream Apply topically 2 times daily. PRN rash 45 g 0 No current facility-administered medications on file prior to visit. documented in this encounter Miscellaneous Notes * Assessment & Plan Note - Umm Coley MD - 07/12/2025 12:49 PM EDT Associated Problem(s): Hypotension Today's BP is within normal limits, no evidence of orthostatism, patient is asymptomatic. She has had this issue in the past and I have told her that readings are probably related to side effects of medication including neuroleptics, benzodiazepines and muscle relaxers. Discussed with patient importance of staying hydrated, do gentle exercise as tolerated Previous cardiac workup including tilt table test and Holter monitoring has been all within normal limits. documented in this encounter Plan of Treatment Upcoming Encounters Date Type Department Care Team (Late st Contact Info) Description 08/10/2025 11:45 AM EDT Office Visit [facility] MEDICINE [address] [place] [id number] Umm Coley MD [address] [place] [id number] documented as of this encounter Visit Diagnoses Diagnosis Other specified hypotension- Primary documented in this encounter Additional Health Concerns Assessment Noted Time PHQ-9 Depression Total Score: 18 025 12:18 PM EDT documented as of this encounter Care Teams Cardiac Cath Lab Radiology Technologist Relationship Specialty Start Date End Date Umm Coley MD [address] [place] [address] PCP - General Family Medicine 10/31/16 [place], [facility] [address] [place] [address] Registered Nurse Family Medicine 05/10/25 [facility] 05/18/25 documented as of this encounter
--- NOTE | 2025-07-12 13:30 | MHC.OFFVIS ---
Vital Signs 07/12/25 13:33 Height 5 ft 2 in Weight 98 lb BMI 17.9 BP 100/52 L Blood Pressure Location Lt brachial Position Sitting Pulse 73 Pulse Source Pulse Oximeter Pulse Oximetry (%) 100 Oxygen Delivery Method Room Air Intake Visit Reasons: OA/ left knee pain Intake Note: Patient presents today for an OA follow up left joint pain. Cabin Crew Required: Yes Cabin Crew Name: salty [id number] Information Interpreted: non-clinical & clinical Accompanied by: Self / Same As Patient Allergies codeine (CODEINE) Allergy (Intermediate, Verified 07/12/25 13:34) DIZZY/NAUSEA, nausea/vomiting escitalopram (From LEXAPRO) Allergy (Intermediate, Verified 07/12/25 13:34) ? NAUSEA meperidine (MEPERIDINE) Allergy (Intermediate, Verified 07/12/25 13:34) NAUSEA morphine (MORPHINE) Allergy (Intermediate, Verified 07/12/25 13:34) PALPITATIONS, palpitation oxycodone (OXYCODONE) Allergy (Intermediate, Verified 07/12/25 13:34) PALPATATIONS, palpitations tramadol Allergy (Unknown, Verified 07/12/25 13:34) dizziness, nausea Medication List - Last Reconciled 07/12/25 by Girish Frye MD acetaminophen (Tylenol) 325 mg PO QID PRN albuterol sulfate 90 mcg/actuation 2 puffs inhalation Q6H PRN 30 days amitriptyline 100 mg PO BEDTIME amlodipine 2.5 mg PO DAILY ascorbic acid (vitamin C) 500 mg orally Three days a week (--); 28 days benzonatate 200 mg PO TID PRN budesonide-formoterol 160-4.5 mcg/actuation (Symbicort) 2 puffs inhalation BID buspirone 15 mg PO TID cholecalciferol (vitamin D3) 50 mcg PO DAILY clonazepam 0.5 mg PO BEDTIME clonazepam 1 mg PO DAILY cyanocobalamin (vitamin B-12) 100 mcg PO DAILY dicyclomine 40 mg (2 x 20 mg) PO QID docusate sodium 100 mg PO BID PRN Held on 03/17/25. Instructions: Doctor's Order famotidine 40 mg PO DAILY ferrous sulfate 325 mg PO MOWEFR 30 days fluticasone propion-salmeterol 115-21 mcg/actuation (Advair HFA) 2 puffs inhalation BID galcanezumab-gnlm (Emgality Pen) 240 mg (2 mL) subcut ONCE 30 days hydroxyzine HCl 25 mg PO BEDTIME PRN ibuprofen 600 mg PO Q6-8H PRN loratadine 10 mg PO DAILY meclizine 25 mg orally every 8 hours as needed; melatonin 10 mg (2 x 5 mg) PO BEDTIME 30 days mirtazapine 45 mg PO BEDTIME naproxen 500 mg PO BID PRN 7 days naproxen 500 mg PO BID olanzapine 20 mg PO BEDTIME omeprazole 20 mg PO DAILY polyvinyl alcohol-povidone 0.5-0.6 % (Clear Eyes Natural Tears) drps ophthalmic (eye) prazosin 4 mg PO BEDTIME prednisone 40 mg (2 x 20 mg) PO DAILY 5 days pregabalin 150 mg PO BID 30 days psyllium husk 0.4 grams PO BID ropinirole 0.5 mg (2 x 0.25 mg) PO TID sennosides (senna) 17.2 mg (2 x 8.6 mg) PO BEDTIME PRN 90 days Held on 03/17/25. Instructions: Doctor's Order sertraline 200 mg PO DAILY sumatriptan succinate 100 mg orally . PRN; 100 mg orally at onset of headache, may repeat in 2 hrs PRN; max 2 tabs per day or 4 tabs/week (may take with Naproxen 440mg or Tylenol 1000mg) 30 days MDD 200mg walker As directed HPI HPI OA/ left knee pain: Details: Video diplomatic interpreter/translator used. Setswana speaking patient. She was referred by orthopedic surgery due to joint pain and arthritis. Orthopedic surgery gave her bilateral knee cortisone injections and PT last year. She has difficulty going down stairs. Left knee pain is worse than right knee pain. Uses a walker or cane to ambulate. She did not have benefit with cortisone injection and PT. she uses left knee brace. She has pain in her thumb. She takes pregabalin and tylenol 500mg BID for pain. Tried ibuprofen, diclofenac po, celebrex with control of pain. She uses diclofenac gel 1%. She had surgery with hardware in place in right wrist after fall 12/2024. She fell down on the street when walking. Denies involvement of stairs. She completed occupational therapy in January. She had benefit with occupational therapy. She continues to do exercises at home. [facility] Medical History Migraine Paresthesia of skin Tension headache MCI (mild cognitive impairment) Peripheral neuropathy Breast cancer Primary osteoarthritis of right hand Right shoulder pain Rotator cuff tendinitis Arthritis of right shoulder region Right hand pain Breast cancer, right Status post radiation therapy Anemia Diarrhea Depression Somatization disorder Migraine equivalent syndrome Anxiety Periodontal disease Fibromyalgia Surgical History H/O hand surgery History of esophagogastroduodenoscopy (EGD) History of lumpectomy Hx of section Hx of shoulder surgery Hx of colonoscopy Family History Mother HTN (hypertension) Sister Breast cancer Bone cancer Colon polyps Sister Osteoporosis Hypercholesteremia Colon polyps Social History Household Members: None Housing: Apartment Are you a primary career and guidance counselor to a significant other at home: No Do you presently have visiting nurse or other home services: No Alcohol intake: never Patient Tobacco Use Status: Former Tobacco user Years Smoked: 3 service: No Current occupational status: disabled 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 She has Heberden nodes. No synovitis. She is unable to make a fist with her right hand. 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 Good range of motion of upper extremities and lower extremities. Joint line tenderness along bilateral knees. No knee effusion. Slow gait. Ambulates with cane. Results Reviewed Results Reviewed: Ordering Physician: Sydney Cleveland MD Date of Service: 08/07/21 Procedure(s): XR hand RT min 3V Accession Number(s): [id number] cc: Sydney Cleveland MD~ EXAMINATION: XR HAND, RIGHT CLINICAL INFORMATION: Pain. COMPARISON: Radiographs dated 11/17/2019. TECHNIQUE: PA, lateral, and oblique views of the right hand. FINDINGS: There is bony demineralization. No fracture or dislocation is seen. The proximal and distal carpal rows are intact. There is no unusual degenerative change. No focal bone erosion or periosteal thickening is seen. A 1 mm radiopaque foreign body is seen in the fourth webspace. XR/XR hand RT min 3V IMPRESSION: 1. No fracture, dislocation or unusual degenerative change of the right hand is seen. 2. A tiny radiopaque foreign body is seen within the fourth webspace, stable from 11/17/2019. Ordering Physician: Denilson Forman PA-C Date of Service: 09/26/24 Procedure(s): XR knee RT 1V Accession Number(s): [id number] cc: Denilson Forman PA-C~ EXAMINATION: XR KNEE 3 VIEWS LEFT FAX ARE KNEE 1 VIEW RIGHT CLINICAL INFORMATION: M25.562 - Pain in left knee COMPARISON: None available. TECHNIQUE: AP bilateral knee standing view, as well as left knee lateral and patellofemoral views. FINDINGS: Left knee: No fracture, dislocation, or focal bony abnormality. The joint spaces are preserved. Alignment is normal. No evidence of joint effusion. Normal patellofemoral joint. No soft tissue abnormalities. Right knee: Normal AP appearance. No arthritic findings. No acute findings. XR/XR knee RT 1V IMPRESSION: Normal bilateral knees. Assessment & Plan Assessment & Plan (1) Chronic knee pain: Comment: Uncontrolled. She was treated by orthopedic surgery with physical therapy, and cortisone injections without benefit. Failed Tylenol, diclofenac gel and PO, ibuprofen, Celebrex and naproxen. I reviewed her x-rays in [facility] from 2020, which were normal. We discussed importance of repeating x-rays this visit. If she has osteoarthritis, can consider hyaluronic acid injection such as Euflexxa. Code(s): M25.569 - Pain in unspecified knee; G89.29 - Other chronic pain Category: Medical Qualifiers: Laterality: bilateral Qualified Code(s): M25.561 - Pain in right knee; M25.562 - Pain in left knee; G89.29 - Other chronic pain Plan: X-ray bilateral knees Continue to take Tylenol 500 mg 1-2 tablets with increased frequency up to 3 times a day Continue diclofenac gel 1% applied to affected area PRN She was advised not to take ibuprofen and naproxen together due to increased risk of GI side effects She will continue to wear left hinged knee brace Return to clinic in 1-2 months to review results. I will consider Euflexxa (2) Hand pain: Comment: With clinical osteoarthritis. She reports improvement in function with occupational therapy after wrist surgery but continues to have difficulty gripping her hands. Code(s): M79.643 - Pain in unspecified hand Category: Medical Qualifiers: Laterality: bilateral Qualified Code(s): M79.641 - Pain in right hand; M79.642 - Pain in left hand Plan: OT ordered to improve hand function X-ray bilateral hands ordered Continue to take Tylenol 500 mg 1-2 tablets with increased frequency up to 3 times a day Continue diclofenac gel 1% applied to affected area PRN She was advised not to take ibuprofen and naproxen together due to increased risk of GI side effects Return to clinic in 1-2 months to review results (3) Osteoporosis: Comment: Fragility fracture right wrists December 2024. Patient meets criteria for diagnosis of osteoporosis with fragility fracture. Bone densities indicated Code(s): M81.0 - Age-related osteoporosis without current pathological fracture Category: Medical Qualifiers: Osteoporosis type: age-related Presence of current pathological fracture: with current pathological fracture Encounter type: initial encounter Qualified Code(s): M80.00XA - Age-related osteoporosis with current pathological fracture, unspecified site, initial encounter for fracture Plan: Bone density ordered this visit Return to clinic in 1-2 months to review results Orders: Orders OT Evaluation and Treatment Today M79.643 - Pain in unspecified hand XR Hand Bilat min 3v Today M79.643 - Pain in unspecified hand XR Knee Philip 3V Today G89.29 - Other chronic pain, M25.569 - Pain in unspecified knee XR DEXA axial skeleton Today M81.0 - Age-related osteoporosis without current pathological fracture XR DEXA appendicular skeleton Today M81.0 - Age-related osteoporosis without current pathological fracture Coding Level of Care Code Est Pt Level 4 (01832) Complex EM visit Add On G2211 Diagnoses Chronic pain of both knees M25.561; M25.562; G89.29 Laterality: bilateral Pain in both hands M79.641; M79.642 Laterality: bilateral Age-related osteoporosis with current pathological fracture, initial encounter M80.00XA Osteoporosis type: age-related Presence of current pathological fracture: with current pathological fracture Encounter type: initial encounter
[2025-07-12 13:33] VITALS: BP 100/52; PULSE 73; O2SAT 100; BMI 17.9
--- OUTSIDE RECORDS SUMMARY | 2025-07-12 16:19 | XMS_ITS | Encounter Summary ---
Author Organization [employer] Address [address] [place] [address] [address] [place] [address] Care Team Providers Care Full Service Vending Driver Name Role Phone Umm Coley MD Primary Care Provider + West Meier RN Unavailable [phone] West Meier RN Unavailable [phone] Shannan Covington Unavailable Reason for Visit * Reason Onset Date Comments appt 01/08/2024 Encounter Details Date Type Department Care Team (Late st Contact Info) Description 01/08/2024 Telephone [facility] [address] [place], [place] [phone] Homer Strong DDS [address] [place], [place] [phone] appt Social History Tobacco Use Types Packs/Day [...] Upcoming Encounters Date Type Department Care Team ([facility] st Contact Info) Description 08/10/2025 11:45 AM EDT Office Visit [facility] [address] [place] [address] Umm Coley MD [address] [place] [address] documented as of this encounter Visit Diagnoses Not on filedocumented in this encounter Additional Health Concerns Assessment Noted Time PHQ-9 Depression Total Score: 21 024 11:31 AM EST documented as of this encounter Care Teams Full Service Vending Driver Relationship Specialty Start Date End Date Umm Coley MD [address] [place] [phone] PCP - General Family Medicine 10/31/16 West Meier RN [address] [place] [address] Twitchell OperatorCoin Machine Collector 01/12/25 04/25/25 West Meier RN [address] [place] [address] Registered Nurse Family Medicine 05/10/25 Shannan Covington 06/08/25 06/08/25 Eva Nunez Twitchell Operator 04/05/24 07/06/24 [facility] 05/11/24 11/17/24 [facility] 11/14/24 01/17/25 Cliq 12/08/24 [facility] 05/18/25 documented as of this encounter
--- OUTSIDE RECORDS SUMMARY | 2025-07-12 16:19 | XMS_ITS | Encounter Summary ---
Author Organization [employer] Address [address] [place] [address] 7[address] [place] [address] Care Team Providers Care Security And Compliance Project Manager Name Role Phone Umm Coley MD Primary Care Provider + West Meier RN Unavailable [phone] West Meier RN Unavailable [phone] Shannan Covington Unavailable Reason for Visit * Reason Comments Med Refill Encounter Details Date Type Department Care Team (Late st Contact Info) Description 05/21/2023 Refill [facility] MED[facility]INE [address] [place], [place] [phone] Umm Coley MD [address] [place], [place] [phone] Arthritis of knee Social History Tobacco Use [...] Description 08/10/2025 11:45 AM EDT Office Visit [facility] MED[facility] [address] [place] [address] Umm Coley MD [address] [place], [place] [phone] documented as of this encounter Visit Diagnoses Diagnosis Arthritis of knee Unspecified arthropathy, lower leg documented in this encounter Additional Health Concerns Assessment Noted Time PHQ-9 Depression Total Score: 12 023 1:58 PM EDT documented as of this encounter Care Teams Security And Compliance Project Manager Relationship Specialty Start Date End Date Umm Coley MD [address] [place] [address] PCP - General Family Medicine 10/31/16 West Meier RN [address] [place] [address] Pecan Mallow DipperNetwork Control Operators Supervisor 01/12/25 04/25/25 West Meier RN [address] [place] [address] Registered Nurse Family Medicine 05/10/25 Shannan Covington 06/08/25 06/08/25 Eva Nunez Pecan Mallow Dipper 04/05/24 07/06/24 [facility] 05/11/24 11/17/24 [facility] 11/14/24 01/17/25 [employer] 12/08/24 [facility] 05/18/25 documented as of this encounter
--- OUTSIDE RECORDS SUMMARY | 2025-07-12 16:19 | XMS_ITS | Encounter Summary ---
Author Organization [employer] Address [address] [facility] [address] [place] [address] Care Team Providers Care Freight Clerk Name Role Phone Umm Coley MD Primary Care Provider + West Meier RN Unavailable [phone] Reason for Visit * Reason Onset Date Comments Med Refill 06/28/2025 Encounter Details Date Type Department Care Team (Late st Contact Info) Description 06/28/2025 Telephone [facility] MEDICINE [address] [place], [place] [phone] Umm Coley MD [address] [place], [place] [phone] Med Refill Social History Tobacco Use Types Packs/Day Years [...] Recorded Patient Health Questionnaire-2 Score 3 06/10/2024 Internet Access Answer Date Recorded Internet Access [...] encounter Miscellaneous Notes * Telephone Encounter - Zara Rosario LPN - 06/28/2025 11:05 AM EDT Loratadine pended to provider for approval and vitamin d is discontinued therapy complete * Telephone Encounter - Meliton Tillman - 06/28/2025 10:57 AM EDT TC from pt requesting medication refill. Medications needing refill: loratadine (Claritin) 10 MG tablet cholecalciferol VITAMIN D (Vitamin D-3) 50 MCG (1999) capsule To be sent to: [facility]/pharmacy #[id number] [place], [place] - [address] [place] [address] documented in this encounter Plan of Treatment Upcoming Encounters Date Type Department Care Team ([facility] st Contact Info) Description 08/10/2025 11:45 AM EDT Office Visit [facility] MEDICINE [address] [place] [address] Umm Coley MD [address] [place] [phone] documented as of this encounter Visit Diagnoses Not on filedocumented in this encounter Additional Health Concerns Assessment Noted Time PHQ-9 Depression Total Score: 10 024 9:17 AM EDT documented as of this encounter Care Teams Freight Clerk Relationship Specialty Start Date End Date Umm Coley MD [address] [place] [address] PCP - General Family Medicine 10/31/16 West Meier, BEBA [address] [place] [address] Registered Nurse Family Medicine 05/10/25 [facility] 05/18/25 documented as of this encounter
--- OUTSIDE RECORDS SUMMARY | 2025-07-12 16:19 | XMS_ITS | Encounter Summary ---
Author Organization [employer] Address [address] [facility] [address]t [place] [address] Care Team Providers Care V Belt Coverer Name Role Phone Umm Coley MD Primary Care Provider + West Meier RN Unavailable [phone] West Meier RN Unavailable [phone] Shannan Covington Unavailable Reason for Visit * Reason Onset Date Comments Appointment 02/24/2023 Encounter Details Date Type Department Care Team (Late st Contact Info) Description 02/24/2023 Telephone [facility] ADULT DENTAL [address] [place] [address] Johnny Gonzalez, WILIAN [address] [place], [place] [phone] Appointment Social History Tobacco Use Types Packs/Day [...] Description 08/10/2025 11:45 AM EDT Office Visit [facility] MED[facility]INE [address] [place] [phone] Umm Coley MD [address] [place] [phone] documented as of this encounter Visit Diagnoses Not on filedocumented in this encounter Care Teams V Belt Coverer Relationship Specialty Start Date End Date Umm Coley MD [address] [place] [phone] PCP - General Family Medicine 10/31/16 West Meier RN [address] [place] [address] T[employer]manCastables Worker 01/12/25 04/25/25 West Meier RN [address] [place] [address] Registered Nurse Family Medicine 05/10/25 Shannan Covington 06/08/25 06/08/25 Eva Nunez T[employer]man 04/05/24 07/06/24 [facility] 05/11/24 11/17/24 [facility] 11/14/24 01/17/25 [employer]te 12/08/24 [facility] 05/18/25 documented as of this encounter
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
--- OUTSIDE RECORDS SUMMARY | 2025-07-12 16:19 | XMS_ITS | Encounter Summary ---
Author Organization [facility] [facility] Address [address] [place] [address] 7t [place] [address] Care Team Providers Care Oyster Fisherman Name Role Phone Umm Coley MD Primary Care Provider + West Meier RN Unavailable [phone] West Meier RN Unavailable [phone] Shannan Covington Unavailable Reason for Visit * Reason Comments Med Refill Encounter Details Date Type Department Care Team (Late st Contact Info) Description 06/10/2023 Refill [facility] MEDICINE [address] [place], [place] [phone] Yenny Morris MD [address] [place], [place] [phone] Rash Social History Tobacco Use Types Packs/Day [...] 11:45 AM EDT Office Visit [facility] MEDICINE 230 [place] [address] Umm Coley MD [address] [place] [address] documented as of this encounter Visit Diagnoses Diagnosis Rash Rash and other nonspecific skin eruption documented in this encounter Additional Health Concerns Assessment Noted Time PHQ-9 Depression Total Score: 12 023 1:58 PM EDT documented as of this encounter Care Teams Oyster Fisherman Relationship Specialty Start Date End Date Umm Coley MD [address] [place] [address] PCP - General Family Medicine 10/31/16 West Meier, RN 505 [place] [address] Vault ClerkCloth Handler 01/12/25 04/25/25 West Meier, RN 505 [place] [address] Registered Nurse Family Medicine 05/10/25 Shannan Covington 06/08/25 06/08/25 Eva Nunez Vault Clerk 04/05/24 07/06/24 [facility] 05/11/24 11/17/24 [facility] 11/14/24 01/17/25 [employer] 12/08/24 [facility] 05/18/25 documented as of this encounter
--- OUTSIDE RECORDS SUMMARY | 2025-07-12 16:19 | XMS_ITS | Encounter Summary ---
Author Organization [employer] Address [address] [place] [address] 7t [place] [address] Care Team Providers Care Content Producer Name Role Phone Umm Coley MD Primary Care Provider + West Meier RN Unavailable [phone] West Meier RN Unavailable [phone] Shannan Covington Unavailable Reason for Visit * Reason Onset Date Comments Dr. Gonzalez conversation PCP/cleared for tx?? Encounter Details Date Type Department Care Team ([facility] st Contact Info) Description 03/28/2025 Telephone [facility] ADULT DENTAL 505 [place], [place] [phone] Johnny Gonzalez, WILIAN 505 [place], [place] [phone] Dr. Gonzalez conversation PCP/cleared for tx?? Social History Tobacco Use Types Packs/Day Years [...] * Telephone Encounter - Scarlet Hall - 03/28/2025 10:52 AM EDT Patient called in stating that she was waiting for call today to be scheduled for cleaning appt. She came in last week however was unable to be treated pending conversation with PCP. Patient states that on same day she received a call that treatment could be done because patient no longer needs to the medication and to return to office but she was unable to do because she was already close to home. No updated information in chart regarding if it is ok to schedule . Patient would like to get appt squared away. Please confirm if patient can be seen and reach out for scheduling DR Send to both provider clinical support and lockstitch front maker DR documented in this encounter Plan of Treatment Upcoming Encounters Date Type Department Care Team (Late st Contact Info) Description 08/10/2025 11:45 AM EDT [facility] 230 [place] [address] Umm Coley MD 230 [place] [address] documented as of this encounter Visit Diagnoses Not on filedocumented in this encounter Additional Health Concerns Assessment Noted Time PHQ-9 Depression Total Score: 10 024 9:17 AM EDT documented as of this encounter Care Teams Content Producer Relationship Specialty Start Date End Date Umm Coley MD [address] [place] [address] PCP - General Family Medicine 10/31/16 West Meier, RN 505 [place] [address] Peer Health PromoterCattle Shipper 01/12/25 04/25/25 West Meier, RN 505 [place] [address] Registered Nurse Family Medicine 05/10/25 Shannan Covington 06/08/25 06/08/25 [facility] 05/18/25 documented as of this encounter
--- OUTSIDE RECORDS SUMMARY | 2025-07-12 16:19 | XMS_ITS | Encounter Summary ---
Author Organization [facility] [facility] Address [address] [place] [address] 7t [place] [address] Care Team Providers Care Machine Lacer Name Role Phone Umm Coley MD Primary Care Provider + West Meier RN Unavailable [phone] West Meier RN Unavailable [phone] Shannan Covington Unavailable Encounter Details Date Type Department Care Team (Latest Contact Info) Description 09/16/2022 Abstract [facility] CONVERSIONS Dental, Provider, DDS Social [...] Description 08/10/2025 11:45 AM EDT Office Visit [facility] MEDICINE 230 [place], [place] [phone] Umm Coley MD [address] [place], [place] [phone] documented as of this encounter Visit Diagnoses Not on filedocumented in this encounter Care Teams Machine Lacer Relationship Specialty Start Date End Date Umm Coley MD [address] [place], [place] [phone] PCP - General Family Medicine 10/31/16 West Meier, BEBA [address] [facility] [address] Ct Mri TechnologistRiding Silks Custodian 01/12/25 04/25/25 West Meier RN [address] [facility] [place] [address] Registered Nurse Family Medicine 05/10/25 Shannan Covington 06/08/25 06/08/[address] Mri Technologist 04/05/24 07/06/24 [facility] 05/11/24 11/17/24 [facility] 11/14/24 01/17/25 [employer] 12/08/24 [facility] 05/18/25 documented as of this encounter
--- OUTSIDE RECORDS SUMMARY | 2025-07-12 16:19 | XMS_ITS | Encounter Summary ---
Author Organization [employer] [facility] Address [address] [place] [address] 7t [place] [address] Care Team Providers Care Fishing Accessories Maker Name Role Phone Umm Coley MD Primary Care Provider + West Meier RN Unavailable [phone] West Meier RN Unavailable [phone] Shannan Covington Unavailable Reason for Visit * Reason Comments Med Refill Encounter Details Date Type Department Care Team (Late st Contact Info) Description 02/05/2023 Refill [facility] MEDICINE 230 [place], [place] [phone] Umm Coley MD 230 [place], [place] [phone] Arthritis of knee Social History Tobacco Use [...] Description 08/10/2025 11:45 AM EDT Office Visit [facility] MEDICINE 230 [place] [address] Umm Coley MD 230 [place] [address] documented as of this encounter Visit Diagnoses Diagnosis Arthritis of knee Unspecified arthropathy, lower leg documented in this encounter Care Teams Fishing Accessories Maker Relationship Specialty Start Date End Date Umm Coley MD 230 [place] [address] PCP - General Family Medicine 10/31/16 West Meier RN 505 [place] [address] Hockey ScoutCombat Control 01/12/25 04/25/25 West Meier RN 505 [place] [address] Registered Nurse Family Medicine 05/10/25 Shannan Covington 06/08/25 06/08/25 Eva Nunez Hockey Scout 04/05/24 07/06/24 [facility] 05/11/24 11/17/24 [facility] 11/14/24 01/17/25 [employer] 12/08/24 [facility] 05/18/25 documented as of this encounter
--- OUTSIDE RECORDS SUMMARY | 2025-07-12 16:19 | XMS_ITS | Encounter Summary ---
Author Organization [employer] Address [address] [facility] 7t [place] [address] Care Team Providers Care Laborer Aquatic Life Name Role Phone Umm Coley MD Primary Care Provider + West Meier RN Unavailable [phone] Reason for Visit * Reason Comments Med Refill Encounter Details Date Type Department Care Team (Late st Contact Info) Description 07/06/2025 Refill [facility] MEDICINE 230 [place], [place] [phone] Umm Coley MD 230 [place], [place] [phone] Social History Tobacco Use Types Packs/Day Years [...] Description 08/10/2025 11:45 AM EDT Office Visit [facility] MEDICINE 230 [place] [address] Umm Coley MD 230 [place] [address] documented as of this encounter Visit Diagnoses Not on filedocumented in this encounter Additional Health Concerns Assessment Noted Time PHQ-9 Depression Total Score: 10 024 9:17 AM EDT documented as of this encounter Care Teams Laborer Aquatic Life Relationship Specialty Start Date End Date Umm Coley MD 230 [place] [address] PCP - General Family Medicine 10/31/16 West Meier, BEBA [address] [place] [address] Registered Nurse Family Medicine 05/10/25 [facility] 05/18/25 documented as of this encounter
--- OUTSIDE RECORDS SUMMARY | 2025-07-12 16:19 | XMS_ITS | Encounter Summary ---
Author Organization [employer] Address [address] [facility] 7t [place] [address] Care Team Providers Care Respiratory Care Technician Name Role Phone Umm Coley MD Primary Care Provider + West Meier RN Unavailable Reason for Visit * Reason Onset Date Comments chart prep 07/11/2025 Encounter Details Date Type Department Care Team (Late st Contact Info) Description 07/11/[address] [facility] MEDICINE 230 [place], [place] [phone] Umm Coley MD 230 [place], [place] [phone] chart prep Social History Tobacco Use Types Packs/Day [...] encounter Miscellaneous Notes * Telephone Encounter - Tanika Acuna [place] - 07/11/2025 1:36 PM EDT Chart Prep Labs: done Images: done Referrals: complete Vaccines due: Covid, Flu, PCV20, Hep B, RSV, and DTAP Screenings: not applicable Overdue care gaps: PHQ-9 and ARIANNA-7 documented in this encounter Plan of Treatment Upcoming Encounters Date Type Department Care Team ([facility] Contact Info) Description 08/10/2025 11:45 AM EDT Office Visit [facility] MEDICINE 230 [place] [address] Umm Coley MD 230 [place] [address] documented as of this encounter Visit Diagnoses Not on filedocumented in this encounter Additional Health Concerns Assessment Noted Time PHQ-9 Depression Total Score: 10 024 9:17 AM EDT documented as of this encounter Care Teams Respiratory Care Technician Relationship Specialty Start Date End Date Umm Coley MD 230 [place] [address] PCP - General Family Medicine 10/31/16 West Meier, BEBA [address] [place] [address] Registered Nurse Family Medicine 05/10/25 [facility] 05/18/25 documented as of this encounter
--- OUTSIDE RECORDS SUMMARY | 2025-07-12 16:19 | XMS_ITS | Encounter Summary ---
Author Organization [employer] Address [address] [place] [address] 7t [place] [address] Care Team Providers Care Weight Loss Counselor Name Role Phone Umm Coley MD Primary Care Provider + West Meier RN Unavailable [phone] West Meier RN Unavailable [phone] Shannan Covington Unavailable Encounter Details Date Type Department Care Team (Late st Contact Info) Description 11/03/2022 Orders Only [facility] MEDICINE 230 [place], [place] [phone] Umm Coley MD [address] [place], [place] [phone] Osteopenia after menopause (Primary Dx) Social History [...] Description 08/10/2025 11:45 AM EDT Office Visit [facility] MEDICINE 230 [place], [place] [phone] Umm Coley MD [address] [place], [place] [phone] Scheduled Orders Name Type Priority Associated Diagnoses Orde r Schedule Vitamin D, 25-Hydroxy, Total, Immunoassay Lab Routine Osteopenia after menopause Expected: 11/03/2022 (Approximate), Expires: 11/03/2023 PTH, Intact (ICMA) And Ionized Calcium Lab Routine Osteopenia after menopause Expected: 11/03/2022 (Approximate), Expires: 11/03/2023 documented as of this encounter Visit Diagnoses Diagnosis Osteopenia after menopause- Primary documented in this encounter Care Teams Weight Loss Counselor Relationship Specialty Start Date End Date Umm Coley MD [address] [place], [place] [phone] PCP - General Family Medicine 10/31/16 West Meier, RN 505 [place] [address] Software Quality TesterOutside Sales Inspector 01/12/25 04/25/25 West Meier, RN 505 [place] [address] Registered Nurse Family Medicine 05/10/25 Shannan Covington 06/08/25 06/08/25 Eva Nunez Software Quality Tester 04/05/24 07/06/24 [facility] 05/11/24 11/17/24 [facility] 11/14/24 01/17/25 [employer] 12/08/24 [facility] 05/18/25 documented as of this encounter
--- OUTSIDE RECORDS SUMMARY | 2025-07-12 16:19 | XMS_ITS | Encounter Summary ---
Author Organization [employer] [facility] Address [address] [place] [address] 7t [place] [address] Care Team Providers Care Salary And Wage Administrator Name Role Phone Umm Coley MD Primary Care Provider + West Meier RN Unavailable [phone] West Meier RN Unavailable [phone] Shannan Covington Unavailable Encounter Details Date Type Department Care Team (Late st Contact Info) Description 09/24/2022 Abstract [facility] ADULT DENTAL [address] [place], [place] [phone] Dental, Provider, DDS Social History Tobacco Use [...] Description 08/10/2025 11:45 AM EDT Office Visit [facility] MEDICINE 230 [place], [place] [phone] Umm Coley MD 230 [place], [place] [phone] documented as of this encounter Procedures Procedure [...] on filedocumented in this encounter Care Teams Salary And Wage Administrator Relationship Specialty Start Date End Date Umm Coley MD [address] [place] [address] PCP - General Family Medicine 10/31/16 West Meier RN 505 [place] [address] Data Governance AnalystMandolin Repair Person 01/12/25 04/25/25 West Meier RN 505 [place] [address] Registered Nurse Family Medicine 05/10/25 Shannan Covington 06/08/25 06/08/25 Eva Nunez Data Governance Analyst 04/05/24 07/06/24 [facility] 05/11/24 11/17/24 [facility] 11/14/24 01/17/25 [employer] 12/08/24 [facility] 05/18/25 documented as of this encounter
--- OUTSIDE RECORDS SUMMARY | 2025-07-12 16:19 | XMS_ITS | Encounter Summary ---
Author Organization [employer] Address [address] [facility] 7t [place] [address] Care Team Providers Care Inner Diameter Grinder Tool Name Role Phone Umm Coley MD Primary Care Provider + West Meier RN Unavailable [phone] West Meier RN Unavailable [phone] Shannan Covington Unavailable Reason for Visit * Reason Comments Med Change Request Encounter Details Date Type Department Care Team (Late st Contact Info) Description 03/20/2023 Refill [facility] ADULT DENTAL 230 [place] [address] Johnny Gonzalez DMD 505 [place], [place] [phone] Social History Tobacco Use Types Packs/Day Years [...] Description 08/10/2025 11:45 AM EDT Office Visit [facility] MEDICINE 230 [place], [place] [phone] Umm Coley MD 230 [place], [place] [phone] documented as of this encounter Visit Diagnoses Not on filedocumented in this encounter Care Teams Inner Diameter Grinder Tool Relationship Specialty Start Date End Date Umm Coley MD 230 [place], [place] [phone] PCP - General Family Medicine 10/31/16 West Meier RN 505 [place] [address] Insurance Loss AssessorSecond Facing Baster 01/12/25 04/25/25 West Meier RN 505 [place] [address] Registered Nurse Family Medicine 05/10/25 Shannan Covington 06/08/25 06/08/25 Eva Nunez Insurance Loss Assessor 04/05/24 07/06/24 [facility] 05/11/24 11/17/24 [facility] 11/14/24 01/17/25 [employer] 12/08/24 [facility] 05/18/25 documented as of this encounter
--- OUTSIDE RECORDS SUMMARY | 2025-07-12 16:19 | XMS_ITS | Encounter Summary ---
Author Organization [employer] Address [address] [place] [address] 7t [place] [address] Care Team Providers Care Zipper Joiner Name Role Phone Umm Coley MD Primary Care Provider + West Meier RN Unavailable [phone] West Meier RN Unavailable [phone] Shannan Covington Unavailable Reason for Visit * Reason Onset Date Comments Appointment 06/15/2023 Encounter Details Date Type Department Care Team (Late st Contact Info) Description 06/15/2023 Telephone [facility] ADULT DENTAL 230 [place] [address] Johnny Gonzalez, WILIAN [address] [place], [place] [phone] Appointment Social History Tobacco Use Types Packs/Day [...] Description 08/10/2025 11:45 AM EDT Office Visit [facility] MEDICINE 230 [place] [address] Umm Coley MD 230 [place] [address] documented as of this encounter Visit Diagnoses Not on filedocumented in this encounter Additional Health Concerns Assessment Noted Time PHQ-9 Depression Total Score: 12 023 1:58 PM EDT documented as of this encounter Care Teams Zipper Joiner Relationship Specialty Start Date End Date Umm Coley MD 230 [place] [address] PCP - General Family Medicine 10/31/16 West Meier RN 505 [place] [address] English DrawerMissionary Coordinator 01/12/25 04/25/25 West Meier RN 505 [place] [address] Registered Nurse Family Medicine 05/10/25 Shannan Covington 06/08/25 06/08/25 Eva Nunez English Drawer 04/05/24 07/06/24 [facility] 05/11/24 11/17/24 [facility] 11/14/24 01/17/25 [email or web address] 12/08/24 [facility] 05/18/25 documented as of this encounter
--- OUTSIDE RECORDS SUMMARY | 2025-07-12 16:19 | XMS_ITS | Encounter Summary ---
Author Organization [employer] Address [address] [facility] 7t [place] [address] Care Team Providers Care Technical Staff Assistant Name Role Phone Umm Coley MD Primary Care Provider + West Meier RN Unavailable West Meier RN Unavailable [phone] Shannan Covington Unavailable Reason for Visit * Reason Onset Date Comments Appointment 03/17/2023 Encounter Details Date Type Department Care Team (Late st Contact Info) Description 03/17/2023 Telephone [facility] ADULT DENTAL 230 [place] [address] Johnny Gonzalez, WILIAN [address] [place], [place] [phone] Appointment Social History Tobacco Use Types Packs/Day [...] Upcoming Encounters Date Type Department Care Team ([facility] st Contact Info) Description 08/10/2025 11:45 AM EDT Office Visit [facility] MEDICINE 230 [place] [address] Umm Coley MD 230 [place] [address] documented as of this encounter Visit Diagnoses Not on filedocumented in this encounter Care Teams Technical Staff Assistant Relationship Specialty Start Date End Date Umm Coley MD [address] [place] [address] PCP - General Family Medicine 10/31/16 West Meier RN 505 [place] [address] Furnace MechanicCnc Manager 01/12/25 04/25/25 West Meier RN 505 [place] [address] Registered Nurse Family Medicine 05/10/25 Shannan Covington 06/08/25 06/08/25 Eva Nunez Furnace Mechanic 6/4/24 9/4/24 [facility] 05/11/24 11/17/24 [facility] 11/14/24 01/17/25 [email or web address] 12/08/24 [facility] 05/18/25 documented as of this encounter
--- OUTSIDE RECORDS SUMMARY | 2025-07-12 16:19 | XMS_ITS | Encounter Summary ---
Author Organization [employer] Address [address] [place] [address] 7t [place] [address] Care Team Providers Care Web Interface Developer Name Role Phone Umm Coley MD Primary Care Provider + West Meier RN Unavailable [phone] West Meier RN Unavailable [phone] Shannan Covington Unavailable Encounter Details Date Type Department Care Team (Late st Contact Info) Description 03/05/2023 Orders Only [facility] MEDICINE 230 [place], [place] [phone] Umm Coley MD 230 [place], [place] [phone] Social History Tobacco Use Types Packs/Day Years [...] Description 08/10/2025 11:45 AM EDT Office Visit [facility] MEDICINE 230 [place] [address] Umm Coley MD 230 [place] [address] documented as of this encounter Visit Diagnoses Not on filedocumented in this encounter Care Teams Web Interface Developer Relationship Specialty Start Date End Date Umm Coley MD 230 [place] [address] PCP - General Family Medicine 10/31/16 West Meier, RN [address] [place] [address] Service MemberCanine Enforcement Officer 01/12/25 04/25/25 West Meier RN [address] [place] [address] Registered Nurse Family Medicine 05/10/25 Shannan Covington 06/08/25 06/08/25 Eva Nunez Service Member 04/05/24 07/06/24 [facility] 05/11/24 11/17/24 [facility] 11/14/24 01/17/25 [employer] 12/08/24 [facility] 05/18/25 documented as of this encounter
--- OUTSIDE RECORDS SUMMARY | 2025-07-12 16:19 | XMS_ITS | Encounter Summary ---
Author Organization [employer] [facility] Address [address] [place] [address] 7t [place] [address] Care Team Providers Care Batch Trucker Name Role Phone Umm Coley MD Primary Care Provider + West Meier RN Unavailable [phone] West Meier RN Unavailable [phone] Shannan Covington Unavailable Encounter Details Date Type Department Care Team (Latest Contact Info) Description 11/14/2019 Abstract [facility] CONVERSIONS Dental, Provider, DDS Social [...] Description 08/10/2025 11:45 AM EDT Office Visit [facility] MEDICINE 230 [place], [place] [phone] Umm Coley MD 230 [place], [place] [phone] documented as of this encounter Visit Diagnoses Not on filedocumented in this encounter Care Teams Batch Trucker Relationship Specialty Start Date End Date Umm Coley MD 230 [place], [place] [phone] PCP - General Family Medicine 10/31/16 West Meier, RN [address] [place] [address] Armament MechanicTours Hostess 01/12/25 04/25/25 West Meier, BEBA [address] [facility] [place] [address] Registered Nurse Family Medicine 05/10/25 Shannan Covington 06/08/25 06/08/25 Eva Nunez Armament Mechanic 04/05/24 07/06/24 [facility] 05/11/24 11/17/24 [facility] 11/14/24 01/17/25 [employer] 12/08/24 [facility] 05/18/25 documented as of this encounter
--- OUTSIDE RECORDS SUMMARY | 2025-07-12 16:19 | XMS_ITS | Encounter Summary ---
Author Organization [employer] Address [address] [facility] 7t [place] [address] Care Team Providers Care Drum Sprayer Name Role Phone Umm Coley MD Primary Care Provider + West Meier RN Unavailable [phone] Encounter Details Date Type Department Care Team (Latest Contact Info) Description 07/12/2025 Travel Social History Tobacco Use Types Packs/Day [...] the past 12 months, has t he [employer], gas, oil or water [employer] and [employer] threatened to shut off services in your [...] AM EDT documented as of this encounter Functional Status * Over the [...] half the days 07/12/2025 12:18 PM EDT eVntura Jurado [place] * Thoughts that you would [...] Jurado [place] documented as of this encounter Plan of Treatment Upcoming Encounters Date Type Department Care Team (Late st Contact Info) Description 08/10/2025 11:45 AM EDT Office Visit [facility] MEDICINE [address] [place] [address] Umm Coley MD 230 [place] [address] documented as of this encounter Visit Diagnoses Not on filedocumented in this encounter Additional Health Concerns Assessment Noted Time PHQ-9 Depression Total Score: 18 025 12:18 PM EDT documented as of this encounter Care Teams Drum Sprayer Relationship Specialty Start Date End Date Umm Coley MD [address] [place] [address] PCP - General Family Medicine 10/31/16 West Meier RN [address] [place] [address] Registered Nurse Family Medicine 05/10/25 [facility] 05/18/25 documented as of this encounter
--- OUTSIDE RECORDS SUMMARY | 2025-07-12 16:19 | XMS_ITS | Encounter Summary ---
Author Organization [employer] Address [address] [facility] 7t [place] [address] Care Team Providers Care Heater Helper Forge Name Role Phone Umm Coley MD Primary Care Provider + West Meier RN Unavailable [phone] West Meier RN Unavailable [phone] Shannan Covington Unavailable Reason for Visit * Reason Comments Med Change Request Encounter Details Date Type Department Care Team (Late st Contact Info) Description 03/20/2023 Refill [facility] ADULT DENTAL [address] [place] [address] Johnny Gonzalez DMD [address] [place], [place] [phone] Social History Tobacco Use Types Packs/Day Years [...] 08/10/2025 11:45 AM EDT Office Visit [facility] MEDICINE [address] [place], [place] [phone] Umm Coley MD [address] [place], [place] [phone] documented as of this encounter Visit Diagnoses Not on filedocumented in this encounter Care Teams Heater Helper Forge Relationship Specialty Start Date End Date Umm Coley MD [address] [place], [place] [phone] PCP - General Family Medicine 10/31/16 West Meier RN [address] [place] [address] Shot LighterDecorative Engraver Apprentice 01/12/25 04/25/25 West Meier RN [address] [place] [address] Registered Nurse Family Medicine 05/10/25 Shannan Covington 06/08/25 06/08/25 Eva Nunez Shot Lighter 04/05/24 07/06/24 [facility] 05/11/24 11/17/24 [facility] 11/14/24 01/17/25 [employer] 12/08/24 [facility] 05/18/25 documented as of this encounter
--- OUTSIDE RECORDS SUMMARY | 2025-07-12 16:19 | XMS_ITS | Encounter Summary ---
Author Organization [employer] Address [address] [place] [address] 7t [place] [address] Care Team Providers Care Lcac Radar Operator/Navigator Name Role Phone Umm Coley MD Primary Care Provider + West Meier RN Unavailable [phone] West Meier RN Unavailable [phone] Shannan Covington Unavailable Encounter Details Date Type Department Care Team (Latest Contact Info) Description 03/13/2022 Abstract [facility] CONVERSIONS Dental, Provider, DDS Social [...] Visit [facility] MEDICINE 230 [place], [place] [phone] Umm Coley MD 230 [place], [place] [phone] documented as of this encounter Visit Diagnoses Not on filedocumented in this encounter Care Teams Lcac Radar Operator/Navigator Relationship Specialty Start Date End Date Umm Coley MD [address] [place], [place] [phone] PCP - General Family Medicine 10/31/16 Wset Meier, BEBA [address] [place] [facility] [place] [address] Golf Course Equipment OperatorRubber Production Machine Operator 01/12/25 04/25/25 West Meier RN [address] [facility] [address] Registered Nurse Family Medicine 05/10/25 Shannan Covington 06/08/25 06/08/25 Eva Nunez Golf Course Equipment Operator 04/05/24 07/06/24 [facility] 05/11/24 11/17/24 [facility] 11/14/24 01/17/25 [employer] 12/08/24 [facility] 05/18/25 documented as of this encounter
--- OUTSIDE RECORDS SUMMARY | 2025-07-12 16:19 | XMS_ITS | Encounter Summary ---
Author Organization [employer] [facility] Address [address] [place] [address] 7t [place] [address] Care Team Providers Care Pattern Painter Name Role Phone Umm Coley MD Primary Care Provider + West Meier RN Unavailable [phone] West Meier RN Unavailable [phone] Shannan Covington Unavailable Encounter Details Date Type Department Care Team (Latest Contact Info) Description 11/23/2020 Abstract [facility] CONVERSIONS Dental, Provider, DDS Social [...] 11:45 AM EDT Office Visit [facility] MEDICINE [address] [place], [place] [phone] Umm Coley MD [address] [place], [place] [phone] documented as of this encounter Visit Diagnoses Not on filedocumented in this encounter Care Teams Pattern Painter Relationship Specialty Start Date End Date Umm Coley MD [address] [place], [place] [phone] PCP - General Family Medicine 10/31/16 West Meier, BEBA [address] [place] [facility] [place] [address] Product Design SpecialistStock Roller 01/12/25 04/25/25 West Meier RN [address] [facility] [address] Registered Nurse Family Medicine 05/10/25 Shannan Covington 06/08/25 06/08/25 Eva Nunez Product Design Specialist 04/05/24 07/06/24 [facility] 05/11/24 11/17/24 [facility] 11/14/24 01/17/25 [employer] 12/08/24 [facility] 05/18/25 documented as of this encounter
--- OUTSIDE RECORDS SUMMARY | 2025-07-12 16:19 | XMS_ITS | Encounter Summary ---
Author Organization [employer] Address [address] [place] [address] 7t [place] [address] Care Team Providers Care Child Support Officer Name Role Phone Umm Coley MD Primary Care Provider + West Meier RN Unavailable [phone] West Meier RN Unavailable [phone] Shannan Covington Unavailable Reason for Visit * Reason Onset Date Comments pre med prior to dental treatment 08/23/2024 Encounter Details Date Type Department Care Team ([facility] st Contact Info) Description 08/23/2024 Telephone [facility] 505 [place], [place] [phone] Johnny Gonzalez DMD 505 [place], [place] [phone] pre med prior to dental treatment Social [...] spoke with Nina in the front desk representative with a run through of what was happening with the patient and she stated she would also send something to provider for clarificationDR documented in this encounter Plan of Treatment Upcoming Encounters Date Type Department Care Team (Late st Contact Info) Description 08/10/2025 11:45 AM EDT Office Visit [facility] MEDICINE 230 [place] [address] Umm Coley MD 230 [place] [address] documented as of this encounter Visit Diagnoses Not on filedocumented in this encounter Additional Health Concerns Assessment Noted Time PHQ-9 Depression Total Score: 10 024 9:17 AM EDT documented as of this encounter Care Teams Child Support Officer Relationship Specialty Start Date End Date Umm Coley MD 230 [place] [address] PCP - General Family Medicine 10/31/16 West Meier, BEBA 505 [place] [address] Controls Design EngineerQuality Assurance Intern 01/12/25 04/25/25 West Meire, BEBA 505 [place] [address] Registered Nurse Family Medicine 05/10/25 Shannan Covington 06/08/25 06/08/25 [facility] 05/11/24 11/17/24 [facility] 11/14/24 01/17/25 [employer] 12/08/24 [facility] 05/18/25 documented as of this encounter
--- OUTSIDE RECORDS SUMMARY | 2025-07-12 16:19 | XMS_ITS | Encounter Summary ---
Author Organization [employer] Address [address] [facility] 7t [place] [address] Care Team Providers Care Insurance Claims Analyst Name Role Phone Umm Coley MD Primary Care Provider + West Meier RN Unavailable [phone] Reason for Visit * Reason Onset Date Comments form update 06/22/2025 Encounter Details Date Type Department Care Team ([facility] st Contact Info) Description 06/22/2025 Telephone [facility] 230 [place], [place] [phone] Umm Coley MD 230 [place], [place] [phone] form update Social History Tobacco Use Types Packs/Day Years [...] encounter Miscellaneous Notes * Telephone Encounter - Roshan Carranza - 06/22/2025 10:42 AM EDT Tc from Yahir at [facility] [place] [facility] requesting update on form faxed over for pt plan of care Contact Yahir at [phone] documented in this encounter Plan of Treatment Upcoming Encounters Date Type Department Care Team ([facility] st Contact Info) Description 08/10/2025 11:45 AM EDT Office Visit [facility] [address] [place] [address] Umm Coley MD 230 [place] [address] documented as of this encounter Visit Diagnoses Not on filedocumented in this encounter Additional Health Concerns Assessment Noted Time PHQ-9 Depression Total Score: 10 024 9:17 AM EDT documented as of this encounter Care Teams Insurance Claims Analyst Relationship Specialty Start Date End Date Umm Coley MD [address] [place] [address] PCP - General Family Medicine 10/31/16 West Meier, BEBA [address] [place] [address] Registered Nurse Family Medicine 05/10/25 [facility] 05/18/25 documented as of this encounter
--- OUTSIDE RECORDS SUMMARY | 2025-07-12 16:19 | XMS_ITS | Encounter Summary ---
Author Organization [employer] Address 75 [facility] 7t [place] [address] Care Team Providers Care Brine Mixer Operator Name Role Phone Umm Coley MD Primary Care Provider + West Meier RN Unavailable [phone] West Meier RN Unavailable [phone] Shannan Covington Unavailable Encounter Details Date Type Department Care Team (Late st Contact Info) Description 08/23/2024 Orders Only [facility] ADULT DENTAL 505 [place], [place] [phone] Johnny Gonzalez, WILIAN 505 [place], [place] [phone] Social History Tobacco Use Types Packs/Day Years [...] Description 08/10/2025 11:45 AM EDT Office Visit [facility] MEDICINE 230 [place] [address] Umm Coley MD 230 [place] [address] documented as of this encounter Visit Diagnoses Not on filedocumented in this encounter Additional Health Concerns Assessment Noted Time PHQ-9 Depression Total Score: 10 024 9:17 AM EDT documented as of this encounter Care Teams Brine Mixer Operator Relationship Specialty Start Date End Date Umm Coley MD 230 [place] [address] PCP - General Family Medicine 10/31/16 West Meier RN [address] [place] [address] Radiation Control TechnicianWood Tile Installation Helper 01/12/25 04/25/25 West Meier RN [address] [place] [address] Registered Nurse Family Medicine 05/10/25 Shannan Covington 06/08/25 06/08/25 [facility] 05/11/24 11/17/24 [facility] 11/14/24 01/17/25 [employer] 12/08/24 [facility] 05/18/25 documented as of this encounter
--- OUTSIDE RECORDS SUMMARY | 2025-07-12 16:19 | XMS_ITS | Encounter Summary ---
Author Organization [employer] [facility] Address [address] [place] [address] 7t [place] [address] Care Team Providers Care Raisin Washer Name Role Phone Umm Coley MD Primary Care Provider + West Meier RN Unavailable [phone] West Meier RN Unavailable [phone] Shannan Covington Unavailable Reason for Visit * Reason Comments Med Refill Encounter Details Date Type Department Care Team (Late st Contact Info) Description 08/01/2023 Refill [facility] MEDICINE 230 [place], [place] [phone] Umm Coley MD [address] [place], [place] [phone] Social History Tobacco Use Types Packs/Day Years [...] Description 08/10/2025 11:45 AM EDT Office Visit [facility] MEDICINE 230 [place] [address] Umm Coley MD [address] [place] [address] documented as of this encounter Visit Diagnoses Not on filedocumented in this encounter Additional Health Concerns Assessment Noted Time PHQ-9 Depression Total Score: 12 023 1:58 PM EDT documented as of this encounter Care Teams Raisin Washer Relationship Specialty Start Date End Date Umm Coley MD [address] [place] [address] PCP - General Family Medicine 10/31/16 West Meier, RN 505 [place] [address] Tube SplicerTower Helper 01/12/25 04/25/25 West Meier RN 505 [place] [address] Registered Nurse Family Medicine 05/10/25 Shannan Covington 06/08/25 06/08/25 Eva Nunez Tube Splicer 04/05/24 07/06/24 [facility] 05/11/24 11/17/24 [facility] 11/14/24 01/17/25 [employer] 12/08/24 [facility] 05/18/25 documented as of this encounter
--- OUTSIDE RECORDS SUMMARY | 2025-07-12 16:19 | XMS_ITS ---
Author Organization [employer] Address [address] [place] [address] 7t [place] [address] Care Team Providers Care Shoulder Sawyer Name Role Phone Umm Coley MD Primary Care Provider + West Meier RN Unavailable [phone] [facility] Status:Enrolled (Active) Start date:05/10/2025 Enrollment date:05/10/2025 Enrollment reason:Referred by provider Overview Lost contact on [place]. Re-opening program per PCP but now on GANESH. Case Team Name Relationship Phone West Meier RN(Responsible Staff) Registered [facility] [phone] Continued Care and Services Coordination
--- OUTSIDE RECORDS SUMMARY | 2025-07-12 16:19 | XMS_ITS | Encounter Summary ---
Author Organization [employer] Address [address] [place] [address] 7t [place] [address] Care Team Providers Care Special Delivery Clerk Name Role Phone Umm Coley MD Primary Care Provider + West Meier RN Unavailable [phone] Reason for Visit * Reason Comments Care Management C3CM- F/U call # 3 Encounter Details Date Type Department Care Team ([facility] st Contact Info) Description 07/10/[address] [facility] MEDICINE [address] [place] [address] Umm Coley MD [address] [place], [place] [phone] Care Management (C3CM- F/U call # 3) Social History Tobacco Use Types Packs/Day Years [...] as of this encounter Progress Notes * West Meier RN - 07/10/2025 10:06 AM EDT CM West Meier RN and BEATRIZ Campbell placed outbound call to patient. Patient's name, and address confirmed. Patient states that she feels depressed and sad, has upcoming appointment with her therapist either Thu or Th this week and psychiatrist appointment in August. Patient reports pain on herleg and hand. Patient reports that she has rheumatology appointment this Thu at 2 PM in [facility] PCP appointment this Thu at 11 AM. Patient reports that everything is going well with [facility] and [facility] THER[facility] services. Patient reports that she applied to an older adult apartment complex in [place] with 7 floors, balcony and elevator. Patient is still requesting a letter from PCP to see if she can be placed on a 2-3rd floor due to her vertigo. CM will send message to PCP to discuss further with patientre: letter during upcoming appointment on Thu and if need be please send message to appropriate staff member to assist with generating letter. Patient state she already requested letter at medical rec ords. No further questions or concerns. CM reinforced direct contact information for any additional questions or concerns. Education provided on [facility] located in [facility]. Patient provided with after-hours line for [facility], , which offer night time triage service and option to transfer to industry consultant provider if needed. Patient verbalizes understanding, and able to r epeat back to proposal lead writer. A follow up call will be placed within 10 days, patient agrees with plan. * Umm Coley MD - 07/10/2025 10:06 AM EDT manager diversity RN note below reviewed. Patient needs to leave on an apartment on 8 lower floor ideally (1st or 2nd floor) due to mobility difficulties, shortness of breath and OA. Please write a letterfor housing as needed with above requirements documented in this encounter Plan of Treatment Upcoming Encounters Date Type Department Care Team (Late st Contact Info) Description 08/10/2025 11:45 AM EDT Office Visit [facility] MEDICINE [address] [place], [place] [phone] Umm Coley MD 230 [place], [place] [phone] documented as of this encounter Visit Diagnoses Not on filedocumented in this encounter Additional Health Concerns Assessment Noted Time PHQ-9 Depression Total Score: 10 024 9:17 AM EDT documented as of this encounter Care Teams Special Delivery Clerk Relationship Specialty Start Date End Date Umm Coley MD 230 [place] [address] PCP - General Family Medicine 10/31/16 West Meier, BEBA [address] [place] [address] Registered Nurse Family Medicine 05/10/25 [facility] 05/18/25 documented as of this encounter
== END 2025-07-12 14:46 | disposition home or self-care (01) ==
LOC: HO.RHES 13:20
PROVIDERS: PCP Internal Medicine; Visit Provider Internal Medicine Rheumatology
DX: M25.561 Pain in right knee (principal); M25.562 Pain in left knee; G89.29 Other chronic pain; M79.641 Pain in right hand; M79.642 Pain in left hand; M80.00XA Age-related osteoporosis with current pathological fracture, unspecified site, initial encounter for fracture
CPT/HCPCS: 99214

== ENCOUNTER → 2025-07-12 13:19 | Outpatient (BNVA) | payer MEDICAID, SELFPAY | PROVIDERS: PCP Internal Medicine; Visit Provider Internal Medicine Rheumatology | DX: M25.561 Pain in right knee (principal); M25.562 Pain in left knee; M79.641 Pain in right hand; M79.642 Pain in left hand; G89.29 Other chronic pain; M80.00XA Age-related osteoporosis with current pathological fracture, unspecified site, initial encounter for fracture | CPT/HCPCS: 99212 ==

== ENCOUNTER 2025-07-18 12:04 | Outpatient (AMB) | payer MEDICAID, SELFPAY ==
--- NOTE | 2025-07-18 12:24 | A.OFFVIS_ITS ---
Vital Signs 07/18/25 12:28 Height 5 ft 2 in Weight 108 lb 0.424 oz BMI 19.8 BP 114/62 Blood Pressure Location Lt brachial Position Sitting Pulse 75 Intake Visit Reasons: 4m GERD Intake Note: Diana presents in the office in the office as a 4 month follow up. CC: She states sometimes she gets a pains in the right side under her ribs. She goes between constipation and diarrhea. Survey Cad Technician Required: Yes Allergies codeine (CODEINE) Allergy (Intermediate, Verified 07/18/25 12:29) DIZZY/NAUSEA, nausea/vomiting escitalopram (From LEXAPRO) Allergy (Intermediate, Verified 07/18/25 12:29) ? NAUSEA meperidine (MEPERIDINE) Allergy (Intermediate, Verified 07/18/25 12:29) NAUSEA morphine (MORPHINE) Allergy (Intermediate, Verified 07/18/25 12:29) PALPITATIONS, palpitation oxycodone (OXYCODONE) Allergy (Intermediate, Verified 07/18/25 12:29) PALPATATIONS, palpitations tramadol Allergy (Unknown, Verified 07/18/25 12:29) dizziness, nausea HPI HPI 4m GERD: Details: Assessment & Plan (1) GERD (gastroesophageal reflux disease): Code(s): K21.9 - Gastro-esophageal reflux disease without esophagitis Category: Medical (2) Irritable bowel syndrome with both constipation and diarrhea: Code(s): K58.2 - Mixed irritable bowel syndrome Category: Medical Plan Bulgarian #[id number] Seferino She say she has not been doing well. She fell and fx her right arm and had 2 surgeries to correct this. Between pain medicines and abx, her stooling has been very crampy and she is having bloating with diarrhea - this despite taking 2, 20mg bentyl qid. However, for now she want to just wait and see how she does as she recovers, as it is slowly improving. If it fails to improve we may consider switching to imipramine. ROV 4 mos. Medications: Refilled omeprazole 20 mg PO DAILY 90 caps 2RF dicyclomine 40 mg (2 x 20 mg) PO QID 240 tabs 3RF K58.2 - Mixed irritable bowel syndrome Discontinued mirtazapine replaces prior dose of 45 mg Discontinued Reason: Duplicate 30 mg PO BEDTIME 30 tabs 0RF On Hold sennosides (senna) Hold Comment: Doctor's Order 17.2 mg (2 x 8.6 mg) PO BEDTIME 90 days PRN 90 tabs 6RF Constipation docusate sodium Hold Comment: Doctor's Order 100 mg PO BID PRN 180 caps 1RF for constipation TODAY'S VISIT Bulgarian #Sandra Fried [facility] Medical History Migraine Paresthesia of skin Tension headache MCI (mild cognitive impairment) Peripheral neuropathy Breast cancer Primary osteoarthritis of right hand Right shoulder pain Rotator cuff tendinitis Arthritis of right shoulder region Right hand pain Breast cancer, right Status post radiation therapy Anemia Diarrhea Depression Somatization disorder Migraine equivalent syndrome Anxiety Periodontal disease Fibromyalgia Surgical History H/O hand surgery History of esophagogastroduodenoscopy (EGD) History of lumpectomy Hx of section Hx of shoulder surgery Hx of colonoscopy Family History Mother HTN (hypertension) Sister Breast cancer Bone cancer Colon polyps Sister Osteoporosis Hypercholesteremia Colon polyps Social History Household Members: None Housing: Apartment Are you a primary career developer to a significant other at home: No Do you presently have visiting nurse or other home services: No Alcohol intake: never Patient Tobacco Use Status: Former Tobacco user Years Smoked: 3 service: No Current occupational status: disabled 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 Review of Systems Const Denies fatigue, Denies fever(s), Reports frequent falls, Denies night sweats, Denies poor appetite and Denies weight loss ENT Reports Normal hearing present, Denies dental pain, Denies dysphagia, Denies hearing loss, Denies mouth pain, Denies odynophagia, Denies throat swelling, Denies tongue swelling and Reports other (Dentition adequate) Card Reports no additional complaints Resp Reports no additional complaints GI Details: Denies abdominal pain, Denies melena, Denies bloating, Denies hematochezia, Reports constipation, Denies GI cramping, Denies dysphagia, Denies excessive flatus, Denies early satiety, Reports heartburn, Reports diarrhea, Denies nausea, Denies odynophagia, Denies vomiting and Denies hematemesis Reports flank pain Musc Reports myalgias and Reports arthralgias Skin/Breast Denies pruritus, Denies lesions, Denies rash and Denies jaundice Neuro Reports Normal hearing present, Denies Abnormal speech present and Reports frequent falls Endo Denies fatigue Aller/Immun Denies throat swelling and Denies tongue swelling Physical Exam Vital Signs: Last Vital Signs Pulse 75 07/18/25 12:28 BP 114/62 07/18/25 12:28 BMI result Body Mass Index 19.8 Const General: cooperative, no acute distress, well developed and well groomed Nutritional Appearance: average body habitus and well nourished Orientation/consciousness: oriented to person, oriented to place and oriented to time Limitations: language barrier and ambulation with cane HEENT Head: Yes normocephalic and Yes atraumatic Eyes General: appearance normal, both eyes and all related structures Pupils: Equal, round and reactive pupils present Neck Neck: Yes normal visual inspection and Yes no lymphadenopathy Thyroid: Thyroid normal Resp Effort & Inspection: normal respiratory effort and able to speak in complete sentences Auscultation: clear to auscultation bilaterally Cardio Rate: regular rate Rhythm: regular rhythm Heart sounds: Normal, physiologic split S2 sound present Peripheral pulses: radial pulses present and posterior tibial pulses present GI Inspection: No distended and No Abdominal panniculus present Palpation (GI): Soft to palpation, Tenderness to palpation present (GI) (Right flank and ribs), no guarding, not rigid and No hepatosplenomegaly present Percussion: Yes normal to percussion Auscultation: normal bowel sounds Rectal Exam - Female: deferred General: Yes CVA tenderness Back/Spine/Pelvis Back: CVA tenderness Thoracic/Lumbar Spine: thoracic and lumbar spine normal to inspection, straight leg raise negative bilaterally and paraspinal muscle tenderness Skin General skin exam: no rashes or lesions noted, turgor normal, skin not dry, no jaundice, No spider nevi and no striae Rashes: no rashes Nails: normal Neuro General: oriented to person, oriented to place and oriented to time Cranial nerves: Yes Equal, round and reactive pupils present and Yes Normal hearing present Speech: No Abnormal speech present Extrem Other: cast right arm General: No clubbing, No cyanosis and No edema Psych Appearance: grossly normal and well kempt Mental Status: mental status grossly normal Speech and movement: Normal speech and movement present Affect: normal affect Attitude: cooperative Thought process: Normal thought process present and not confabulating Thought content: Normal thought content present Insight: Fair insight present (Psych) Judgement: Fair judgement present (Psych) Assessment & Plan Assessment & Plan (1) GERD (gastroesophageal reflux disease): Code(s): K21.9 - Gastro-esophageal reflux disease without esophagitis Category: Medical (2) Irritable bowel syndrome with both constipation and diarrhea: Code(s): K58.2 - Mixed irritable bowel syndrome Category: Medical (3) Right flank pain: Code(s): R10.9 - Unspecified abdominal pain Category: Medical (4) History of obstruction of large intestine: Comment: [address] Code(s): Z87.19 - Personal history of other diseases of the digestive system Category: Medical Plan Bulgarian #Sandra Fried Her current medications are omeprazole and dicyclomine. - The patient is a 60-year-old female presenting with right flank pain. This is an added complaint to her usual follow-up for her IBS and GERD. - Experienced right flank pain for a few days, resembling past pain linked to bowel obstruction treated in the ER two years prior. - Noted kidney stones on prior diagnoses could relate to current symptoms. - Suffered a fall resulting in an arm fracture, followed by two surgeries in December. - Postoperative complications included intermittent diarrhea and constipation. - Pain is altered by body posture, worsens when leaning forward, eased by standing. - Reports no specific dietary correlation with bowel symptoms; however, starchy foods might exacerbate the discomfort. - Prior recommendation included fiber-rich diet for bowel regularity. This is because she tends to have a mixed IBS presentation and fiber is the best treatment for this treating both the diarrhea and the constipation phase is. Given her history, which is complex, the pain could be bowel related but it also could be musculoskeletal or even related to her history of kidney stones. I think we will get some studies to try to tease this out. The fact that it is not affected by dicyclomine makes me think that it may not be a bowel pathology. We will get an x-ray of the thoracic spine in the ribs to see if there is any reason to suspect radicular or referred pain and a urinalysis to see if there is any blood in the urine or crystals that could point toward nephrolithiasis. No new treatments yet as I really do not know what the underlying causes. She was instructed to go to the ER if the pain severely worsens and call my office. Return office visit in 3 weeks Orders: Orders XR thoracic spine 2V 07/18/25 R10.9 - Unspecified abdominal pain UA CC w/rflx Micro + Cult 07/18/25 R10.9 - Unspecified abdominal pain XR ribs RT 2V 07/18/25 R10.9 - Unspecified abdominal pain Medications: Discontinued prednisone Discontinued Reason: Patient no longer taking 40 mg (2 x 20 mg) PO DAILY 5 days 10 tabs 0RF Coding Level of Care Code Est Pt Level 4 (54185) Diagnoses GERD (gastroesophageal reflux disease) K21.9 Irritable bowel syndrome with both constipation and diarrhea K58.2 Right flank pain R10.9 History of obstruction of large intestine Z87.19 Time Spent (min) 35
[2025-07-18 12:28] VITALS: BP 114/62; PULSE 75; BMI 19.8
--- OUTSIDE RECORDS SUMMARY | 2025-07-18 16:23 | XMS_ITS | Encounter Summary ---
Author Organization [facility] Address [address] [place] [address] [address] [place] [address] Care Team Providers Care Cost Estimating Engineer Name Role Phone Umm Coley MD Primary Care Provider + West Meier RN Unavailable [phone] West Meier RN Unavailable [phone] Shannan Covington Unavailable Encounter Details Date Type Department Care Team (Latest Contact Info) Description 09/16/2022 Abstract [facility] CONVERSIONS Dental, Provider, DDS Social History [...] Description 08/10/2025 11:45 AM EDT Office Visit [facility] MEDICINE [address] [place], [place] [phone] Umm Coley MD [address] [place], [place] [phone] documented as of this encounter Visit Diagnoses Not on filedocumented in this encounter Care Teams Cost Estimating Engineer Relationship Specialty Start Date End Date Umm Coley MD [address] [place], [place] [phone] PCP - General Family Medicine 10/31/16 West Meier, BEBA [address] [place] [facility] [place] [address] Homeowner Association ManagerSignal Worker Helper 01/12/25 04/25/25 West Meier RN [address] [facility] [place] [address] Registered Nurse Family Medicine 05/10/25 Shannan Covington 06/08/25 06/08/25 Eva Nunez Homeowner Association Manager 04/05/24 07/06/24 [facility] 05/11/24 11/17/24 [facility] 11/14/24 01/17/25 [employer] 12/08/24 [facility] 05/18/25 documented as of this encounter
--- OUTSIDE RECORDS SUMMARY | 2025-07-18 16:23 | XMS_ITS | Encounter Summary ---
Author Organization [employer] [facility] Address [address] [place] [address] [address] [place] [address] Care Team Providers Care Coding Consultant Name Role Phone Umm Coley MD Primary Care Provider + West Meier RN Unavailable [phone] West Meier RN Unavailable [phone] Shannan Covington Unavailable Encounter Details Date Type Department Care Team (Latest Contact Info) Description 03/13/2022 Abstract [facility] CONVERSIONS Dental, Provider, DDS [...] Description 08/10/2025 11:45 AM EDT Office Visit [facility] MEDICINE [address] [place], [place] [phone] Umm Coley MD [address] [place], [place] [phone] documented as of this encounter Visit Diagnoses Not on filedocumented in this encounter Care Teams Coding Consultant Relationship Specialty Start Date End Date Umm Coley MD [address] [place], [place] [phone] PCP - General Family Medicine 10/31/16 West Meier, BEBA [address] [place] [facility] [place] [address] Gizzard PullerBottom Cementer 01/12/25 04/25/25 West Meier RN [address] [facility] [place] [address] Registered Nurse Family Medicine 05/10/25 Shannan Covington 06/08/25 06/08/25 Eva Nunez Gizzard Puller 04/05/24 07/06/24 [facility] 05/11/24 11/17/24 [facility] 11/14/24 01/17/25 [employer] 12/08/24 [facility] 05/18/25 documented as of this encounter
--- OUTSIDE RECORDS SUMMARY | 2025-07-18 16:23 | XMS_ITS | Encounter Summary ---
Author Organization [employer] Address [address] [place] [address] [address] [place] [address] Care Team Providers Care Optometrist Assistant Name Role Phone Umm Coley MD Primary Care Provider + West Meier RN Unavailable [phone] Reason for Visit * Reason Onset Date Comments form update 06/22/2025 Encounter Details Date Type Department Care Team ([facility] st Contact Info) Description 06/22/2025 Telephone [facility] MEDICINE [address] [place], [place] [phone] Umm Coley MD [address] [place], [place] [phone] form update Social History Tobacco Use Types [...] 10:42 AM EDT Tc from Yahir at [facility] requesting update on form faxed over for pt plan of care Contact Yahir at [phone] documented in this encounter Plan of Treatment Upcoming Encounters Date Type Department Care Team ([facility] st Contact Info) Description 08/10/2025 11:45 AM EDT Office Visit [facility] MEDICINE [address] [place] [address] Umm Coley MD [address] [place] [address] documented as of this encounter Visit Diagnoses Not on filedocumented in this encounter Additional Health Concerns Assessment Noted Time PHQ-9 Depression Total Score: 10 024 9:17 AM EDT documented as of this encounter Care Teams Optometrist Assistant Relationship Specialty Start Date End Date Umm Coley MD [address] [place] [address] PCP - General Family Medicine 10/31/16 West Meier, BEBA [address] [place] [address] Registered Nurse Family Medicine 05/10/25 [facility] 05/18/25 documented as of this encounter
--- OUTSIDE RECORDS SUMMARY | 2025-07-18 16:23 | XMS_ITS | Encounter Summary ---
Author Organization [facility] [facility] Address [address] [place] [address] [address] [place] [address] Care Team Providers Care Customs Compliance Analyst Name Role Phone Umm Coley MD Primary Care Provider + West Meier RN Unavailable [phone] West Meier RN Unavailable [phone] Shannan Covington Unavailable Encounter Details Date Type Department Care Team (Latest Contact Info) Description 11/14/2019 Abstract [facility] CONVERSIONS Dental, Provider, DDS Social [...] Description 08/10/2025 11:45 AM EDT Office Visit [facility] MEDICINE [address] [place], [place] [phone] Umm Coley MD [address] [place], [place] [phone] documented as of this encounter Visit Diagnoses Not on filedocumented in this encounter Care Teams Customs Compliance Analyst Relationship Specialty Start Date End Date Umm Coley MD [address] [place], [place] [phone] PCP - General Family Medicine 10/31/16 West Meier, RN [address] [place] [address] Driving InstructorPower Screwdriver Operator 01/12/25 04/25/25 West Meier, BEBA [address] [place] [facility] [address] Registered Nurse Family Medicine 05/10/25 Shannan Covington 06/08/25 06/08/25 Eva Nunez Driving Instructor 04/05/24 07/06/24 [facility] 05/11/24 11/17/24 [facility] 11/14/24 01/17/25 [employer] 12/08/24 [facility] 05/18/25 documented as of this encounter
--- OUTSIDE RECORDS SUMMARY | 2025-07-18 16:23 | XMS_ITS | Clinical Summary ---
Author Organization [employer] Address [address] [place] [address] 7[address] [place] [address] Care Team Providers Care Rim Fire Priming Tool Setter Name Role Phone Shalonda Coley MD Primary Care Provider + [place] RN Unavailable [phone] Allergies Active Allergy Reactions Criticality Noted Date [...] Active mirtazapine (Remeron) 30 MG tablet TOME NAIAM TABLETA ORALLY BEDTIME REPLACES PRIOR DOSE OF [...] psych medication as per psych prescriber at [facility]. She is on Colace daily for [...] regarding medication management by current VNA services ([facility]). I asked her if she [...] f/u with mental health provider in [facility]. 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 She has a EMBEDDED SOFTWARE ARCHITECT and a VNA to manage med, pharma [...] EST): Pt seen psychotherapist and psychiatry at [facility], needs medication management due to [...] She will continue close follow up with [facility] Psych. I explained to patient [...] Plan (02/26/2023 1:11 PM EDT): Pt seeing [facility] MH team every week. I counseled her [...] we can organize the medications. Pt and EMBEDDED SOFTWARE ARCHITECT agreed with the plan of care. POC discussed with team nurse and supervisor cell efficiency. Assessment & Plan (04/28/2024 3:33 PM EDT): [...] per the recent medication list requested by correctional casework specialist on March 2025, she was on BuSpar 15 mg 3 times daily, clonazepam twice daily as needed anxiety, mirtazapine 30 mg nightly, olanzapine 20 mg nightly, prazosin 4 mg nightly and sertraline 200 mg/day (See encounter under media on 03/03/2025). She will continue to follow [facility] for pharmacotherapy and continue to see her therapist Niyah Whatley regularly (ph#[phone]). At this time she feels safe at home and is able to reach out for safety both of her therapist, the crisis and I told her that she can come to walk-in clinic as needed worsening anxiety. No change in medications at this time, will call [facility] psychiatry for med reconciliation and VNA to [...] (04/28/2024 5:25 PM EDT): Pt seen by [facility] clinician, continue psychotherapy every week. [...] pharmaco education. She's followed by [facility] psych. I told her and EMBEDDED SOFTWARE ARCHITECT she needs to bring all her med bottles so we can go over her meds until the new VNA service is restarted. Her EMBEDDED SOFTWARE ARCHITECT is helping her as well as her daughter With meds for now. Pt feels safe. Will send new Rx if needed with prescription in uzbek so VNA can read it (one of the issues being that med rx were written in Yoruba and the VNA that took over didn't understand the directions). Will check with VNA service to see what current situation is, pt wants to start using a new VNA service (the one her neighbor uses, [facility] [place]) . Hip pain 02/16/2018 Assessment & [...] or Tylenol as needed She needs a EMBEDDED SOFTWARE ARCHITECT to help her with ADLs Fibromyositis 04/15/2012 [...] Plan (05/02/2024 5:56 PM EDT): -Followed by [facility] GI - last [...] has to reschedule pharmacological stress test in [facility] dc amlodipine and flexeril and take [...] Encounters Date Type Department Care Team Description 07/18/2025 Orders Only [facility] External Provider, [facility] 07/14/2025 Telephone [facility] [address] [place] [address] Shalonda Coley MD Med Refill 07/12/2025 11:00 AM EDT Office Visit [facility] [address] [place] [address] Shalonda Coley MD Other specified hypotension (Primary Dx) 07/12/2025 Travel 07/11/[address] [address] Shalonda Coley MD chart prep 07/10/2025 Patient Outreach [address] [address] Shalonda Coley MD Care Management (C3CM- F/U call # 3) 07/06/[address] [address] Shalonda Coley MD Nurse Triage 07/06/[address] [address] Shalonda Coley MD 06/29/[address] [address] Shalonda Coley MD Nurse Triage 06/28/[address] [address] Shalonda Coley MD Med Refill 06/28/[address] [address] Shalonda Coley MD Rash 06/26/[address] [address] Shalonda Coley MD letter 06/23/2025 11:45 AM EDT Office Visit [address] [address] Zara Johnson DO Moderate persistent asthma with acute exacerbation (Primary Dx); Pain of finger of left hand 06/23/2025 Travel 06/22/[address] [address] Shalonda Coley MD form update 06/22/[address] [address] Shalonda Coley MD Chart Prep 06/20/[address] [address] Shalonda Coley MD ER Follow-up 06/19/[address] [address] Shalonda Coley MD Nurse Triage 06/08/2025 Patient Outreach [address] [address] Shalonda Coley MD Care Management (C3- F/U call # 2) 06/07/[address] [address] Shalonda Coley MD Neuropathy 06/06/2025 1:00 PM EDT Office Visit [facility] [address] [place] [address] Yovani Fountain Dental calculus (Primary Dx) 05/31/[address] [address] Shalonda Coley MD Appointment Request 05/25/2025 Patient Outreach [address] [address] Shalonda Coley MD Care Coordination ([facility] Shannan Covington telelphone call outreach/) 05/22/2025 Patient Outreach [address] [address] Shalonda Coley MD Care Management ([facility]- F/U call # 1) 05/10/2025 Patient Outreach [address] [address] Shalonda Coley MD Care Management ([facility]- re-open program) 05/04/[address] [address] Shalonda Coley MD fyi 05/04/[address] [address] Shalonda Coley MD Care Management ([facility]- VNA referral) 05/02/2025 10:30 AM EDT Office Visit [address] [phone] Shalonda Coley MD Recurrent major depression in partial remission ([facility]) (Primary Dx); Fibromyalgia; Encounter for monitoring of patient compliance in drug treatment program; Adhesive capsulitis of shoulder, unspecified laterality 05/02/[address] [phone] Shalonda Coley MD 05/02/2025 Travel 05/01/[address] [phone] Shalonda Coley MD Chart Prep 04/26/[address] [phone] Shalonda Coley MD Care Management (C3- Follow up call (4th attempt)/LVM) 04/25/2025 Patient Outreach [address] [phone] Shalonda Coley MD Pre-visit Planning (Pre visit planning LVM ) from Last 3 Months Immunizations Immunization Administration [...] Description 08/10/2025 11:45 AM EDT Office Visit [facility] [address] [place] [address] Shalonda Coley MD [address] [place] [address] Health Maintenance Due Date Last Done Comments [...] series) 2023 COVID-19 Vaccine (4 - season) 2025 12/04/2021, 02/06/2021, 01/09/2021 Influenza Vaccine [...] Name Priority Date/Time Associated Diagnosis Comments XR ABDOMEN 2V+ Routine 07/18/2025 2:00 PM EDT XR THORACIC SPINE 2 VIEWS Routine 07/18/2025 1:56 PM EDT XR RIBS 2 VIEWS RIGHT Routine 07/18/2025 1:50 PM EDT URINALYSIS WITH REFLEX MICROSCOPIC Routine 07/18/2025 1:33 PM EDT XR FINGERS 2+ VIEWS LEFT Routine 06/23/2025 [...] Relevant to Health Maintenance Results * XR Abdomen 2 View minimum (07/18/2025 2:00 PM EDT) Anatomical Region Laterality Modality Abdomen Radiographic Kyleigh ging 07/18/2025 2:00 PM EDT Narrative 07/18/2025 2:30 PM EDT [address] [address] XRay Report Signed Patient: Diana Mcpherson MR#: [id number] : 1965 Acct:[id number] Age/Sex: 60 / F ADM Date: 07/18/25 Loc: HO.XRAY Attending Dr: Zee ALCANTARA Ordering Physician: Zee Palma Date of Service: 07/18/25 Procedure(s): XR abdomen min 2V Accession Number(s): [id number] cc: Zee Palma; Shalonda Coley MD Reason for Exam: R10.9 - Unspecified abdominal pain EXAMINATION: XR ABDOMEN COMPLETE CLINICAL INDICATION: R10.9 - Unspecified abdominal pain COMPARISON: None available. TECHNIQUE: 2 views of the abdomen. FINDINGS: Gas is seen in small and large bowel. There is a gas-filled loop on the supine x-ray] There is a gas-filled bowel right of the midline of the abdomen, medial to the ascending colon with a fold that does not completely traverse the lumen suggesting that this is within proximal transverse colon rather than small bowel. However, the inferior margin has a bird beaked morphology on the supine view. XR/XR abdomen min 2V IMPRESSION: Gas-filled small and large bowel is suggestive of an ileus. Focally gas-distended loop of bowel right of midline on the supine view has a pattern most consistent with a haustral fold indicating that the loop is gas-filled colon rather than dilated small bowel. However, there is a bird beak morphology at the inferior and that can be seen with a volvulus. However, the lumen dilation is usually more pronounced with a colonic volvulus. Correlate clinically. Electronically signed by: Elton Lau MD 07/18/2025 02:27 PM EDT Dictated By: Elton Lau MD Signed By: <Electronically signed by Elton Lau MD in OV> 07/18/25 1427 DD/ 1400 TD/TT: 07/18/25 1411 Novelty Balloon Assembler And Packer: Procedure Note Donotuseinterpreter, Image - 07/18/2025 [place] [address] XRay Report Signed Patient: Diana Mcpherson LMR#: M [id number] : 1965Acct:[id number] Age/Sex: 60 / FADM Date: 07/18/25 Loc: HO.XRAY Attending Dr: Zee ALCANTARA Ordering Physician: Zee Palma Date of Service: 07/18/25 Procedure(s): XR abdomen min 2V Accession Number(s): [id number] cc: Zee Palma; Shalonda Coley MD Reason for Exam: R10.9 - Unspecified abdominal pain EXAMINATION: XR ABDOMEN COMPLETE CLINICAL INDICATION: R10.9 - Unspecified abdominal pain COMPARISON: None available. TECHNIQUE: 2 views of the abdomen. FINDINGS: Gas is seen in small and large bowel. There is a gas-filled loop on the supine x-ray] There is a gas-filled bowel right of the midline of the abdomen, medial to the ascending colon with a fold that does not completely traverse the lumen suggesting that this is within proximal transverse colon rather than small bowel. However, the inferior margin has a bird beaked morphology on the supine view. XR/XR abdomen min 2V IMPRESSION: Gas-filled small and large bowel is suggestive of an ileus. Focally gas-distended loop of bowel right of midline on the supine view has a pattern most consistent with a haustral fold indicating that the loop is gas-filled colon rather than dilated small bowel. However, there is a bird beak morphology at the inferior and that can be seen with a volvulus. However, the lumen dilation is usually more pronounced with a colonic volvulus. Correlate clinically. Electronically signed by: Elton Lau MD 07/18/2025 02:27 PM EDT Dictated By: Elton Lau MD Signed By: <Electronically signed by Elton Lau MD in OV> 07/18/25 1427 DD/ 1400 TD/TT: 07/18/25 1411 Novelty Balloon Assembler [employer] Packer: [facility] External Provider IMG XR PROCEDURES Edited Result - Final * XR Thoracic Spine 2 Views (07/18/2025 1:56 PM EDT) Anatomical Region Laterality Modality Spine, T-spine Radiographic Kyleigh ging 07/18/2025 1:56 PM EDT Narrative 07/18/2025 2:18 PM EDT [place] [address] XRay Report Signed Patient: Diana Mcpherson MR#: M [id number] : 1965 Acct:[id number] Age/Sex: 60 / F ADM Date: 07/18/25 Loc: MERVAT Attending Dr: Zee ALCANTARA Ordering Physician: Zee Palma Date of Service: 07/18/25 Procedure(s): XR thoracic spine 2V Accession Number(s): [id number] cc: Zee Palma; Shalonda Coley MD Reason for Exam: R10.9 - Unspecified abdominal pain EXAMINATION: XR THORACIC SPINE CLINICAL INFORMATION: R10.9 - Unspecified abdominal pain COMPARISON: 07/16/2022 TECHNIQUE: 3 views of the thoracic spine were obtained. FINDINGS: There is no fracture or bone destruction seen and the vertebral alignment is normal. There is no disc space narrowing. There is no abnormality of the paraspinal soft tissues. XR/XR thoracic spine 2V IMPRESSION: Unremarkable examination. Electronically signed by: Elton Lau MD 07/18/2025 02:14 PM EDT RP Dictated By: Elton Lau MD Signed By: <Electronically signed by Elton Lau MD in OV> 07/18/25 1414 DD/ 1356 TD/TT: 07/18/25 1411 Novel[employer] Balloon Assembler [employer] Packer: Procedure Note Donotuseinterpreter, Image - 07/18/[address] [address] XRay Report Signed Patient: Diana Mcpherson LMR#: M [id number] : 1965Acct:[id number] Age/Sex: 60 / FADM Date: 07/18/25 Loc: HO.ALIYA Attending Dr: Zee ALCANTARA Ordering Physician: Zee Palma Date of Service: 07/18/25 Procedure(s): XR thoracic spine 2V Accession Number(s): [id number] cc: Zee Palma; Shalonda Coley MD Reason for Exam: R10.9 - Unspecified abdominal pain EXAMINATION: XR THORACIC SPINE CLINICAL INFORMATION: R10.9 - Unspecified abdominal pain COMPARISON: 07/16/2022 TECHNIQUE: 3 views of the thoracic spine were obtained. FINDINGS: There is no fracture or bone destruction seen and the vertebral alignment is normal. There is no disc space narrowing. There is no abnormality of the paraspinal soft tissues. XR/XR thoracic spine 2V IMPRESSION: Unremarkable examination. Electronically signed by: Elton Lau MD 07/18/2025 02:14 PM EDT Dictated By: Elton Lau MD Signed By: <Electronically signed by Elton Lau MD in OV> 07/18/25 1414 DD/ 1356 TD/TT: 07/18/25 1411 Novelty Balloon Assembler [employer] Packer: us [facility] External Provider IMG XR PROCEDURES Edited Result - Final * XR Ribs 2 Views Right (07/18/2025 1:50 PM EDT) Anatomical Region Laterality Modality Rib, Abdomen Right Radiographic Kyleigh ging 07/18/2025 1:50 PM EDT Narrative 07/18/2025 2:19 PM EDT [address] [address] XRay Report Signed Patient: Diana Mcpherson MR#: M [id number] : 1965 Acct:[id number] Age/Sex: 60 / F ADM Date: 07/18/25 Loc: MERVAT Attending Dr: Zee ALCANTARA Ordering Physician: Zee Palma Date of Service: 07/18/25 Procedure(s): XR ribs RT 2V Accession Number(s): [id number] cc: Zee Palma; Shalonda Coley MD Reason for Exam: R10.9 - Unspecified abdominal pain EXAMINATION: XR RIBS 2 VIEWS RIGHT HISTORY: R10.9 - Unspecified abdominal pain COMPARISON: Correlation is made with PA and lateral views of the chest dated 06/19/2025. FINDINGS: Four views of the right ribs are submitted. Osseous mineralization is normal. No fracture is seen. There are surgical clips in the right breast and right axilla. XR/XR ribs RT 2V IMPRESSION: Unremarkable examination of the right ribs. Electronically signed by: Beka Packer MD 07/18/2025 02:15 PM EDT RP Dictated By: Beka Packer MD Signed By: <Electronically signed by Beka Packer MD in OV> 07/18/25 1415 DD/ 1350 TD/TT: 07/18/25 1412 Novel[employer] Balloon Assembler [employer] Packer: Procedure Note Donotuseinterpreter, Image - 07/18/[address] [address] XRay Report Signed Patient: Diana Mcpherson LMR#: M [id number] : 1965Acct:[id number] Age/Sex: 60 / FADM Date: 07/18/25 Loc: MERVAT Attending Dr: Zee ALCANTARA Ordering Physician: Zee Palma Date of Service: 07/18/25 Procedure(s): XR ribs RT 2V Accession Number(s): [id number] cc: Zee Palma ANP-C; Shalonda Coley MD Reason for Exam: R10.9 - Unspecified abdominal pain EXAMINATION: XR RIBS 2 VIEWS RIGHT HISTORY: R10.9 - Unspecified abdominal pain COMPARISON: Correlation is made with PA and lateral views of the chest dated 06/19/2025. FINDINGS: Four views of the right ribs are submitted. Osseous mineralization is normal. No fracture is seen. There are surgical clips in the right breast and right axilla. XR/XR ribs RT 2V IMPRESSION: Unremarkable examination of the right ribs. Electronically signed by: Beka Packer MD 07/18/2025 02:15 PM EDT Dictated By: Beka Packer MD Signed By: <Electronically signed by Beka Packer MD in OV> 07/18/25 1415 DD/ 1350 TD/TT: 07/18/25 1412 [employer] Ball[employer] Assembler [employer] Packer: [facility] External Provider IMG XR PROCEDURES Edited Result - Final * Urinalysis w/reflex microscopic (07/18/2025 1:33 PM EDT) Color Urine Yellow [facility] Appearance Urine Clear [facility] PH 5.5 5.0 - 9.0 [facility] Glucose Urine UA Negative Negative mg/dL [facility] Urine Blood Negative Negative [facility] Specific [place] - Urine 1.020 1.005 - 1.025 [facility] Urine Protein Negative Neg-Trace mg/dL [facility] Urine Ketones Negative Negative mg/dL [facility] Nitrite Urine Negative Negative [facility] Leukocyte Esterase Urine Negative Negative [facility] 07/18/2025 1:33 PM EDT 07/18/2025 2:15 PM EDT Narrative [facility] - 07/18/2025 2:37 PM EDT Urine, Clean Catch Generic External Data Provider LAB URINE ORDERAB LES Final Result [facility] [address] [place] [address] [phone] * XR Fingers 2+ Views Left (06/23/2025 12:26 PM EDT) Anatomical Region Laterality Modality Upper Extremities, Fingers Left Radio graphic Imaging 06/23/2025 12:2 6 PM EDT Narrative 06/23/2025 1:27 PM EDT [address] [address] XRay Report Signed Patient: Diana Mcpherson MR#: M [id number] : 1965 Acct:[id number] Age/Sex: 60 / F ADM Date: 06/23/25 Loc: HO.HHCX Attending Dr: Zara Johnson DO Ordering Physician: Zara Johnson DO Date of Service: 06/23/25 Procedure(s): XR finger LT min 2V Accession Number(s): [id number] cc: Zara Johnson DO EXAMINATION: XR FINGER, [...] 06/23/25 1324 DD/ 1226 TD/TT: 06/23/25 1310 [employer] Assembler [employer] Packer: Procedure Note Donotuseinterpreter, Image - 06/23/2025 [facility] [address] [place] [address] XRay Report Signed Patient: Diana Mcpherson LMR#: M [id number] : 1965Acct:[id number] Age/Sex: 60 / FADM Date: 06/23/25 [facility]: Zara Johnson DO Ordering Physician: Zara Johnson DO Date of Service: 06/23/25 Procedure(s): XR finger LT min 2V Accession Number(s): [id number] cc: Zara Johnson DO EXAMINATION: XR FINGER, [...] 06/23/25 1324 DD/ 1226 TD/TT: 06/23/25 1310 Novel[employer] Balloon Assembler [employer] Packer: Zara Johnson DO IMG XR PROCEDURES Final Resu lt * BI Mammogram Screening Tomosynthesis Bilateral (11/29/2024 8:45 AM EST) Anatomical Region Laterality Modality Breast Bilateral Mammography 11/29/2024 8:45 AM EST Narrative 12/07/2024 3:35 PM EST [address] [place] [address] Mammography Report Signed Patient: Diana Myles MR#: [id number] : 1965 Acct:[id number] Age/Sex: 59 / F ADM Date: 11/29/24 Loc: HO.MAMMO Attending Dr: Shalonda Coley MD Ordering Physician: Shalonda Coley MD Results: 2Be nign Findings Date of Service: 11/29/24 Follow Up: 1 Year From Orig ina Mammogram Procedure(s): MM tomosynthesis screening BI Accession Number(s): [id number] cc: Shalonda Coley MD EXAMINATION: MM SCREENING [...] 12/07/24 1532 DD/ 0845 TD/TT: 11/29/24 0915 [employer]sembl[employer] Packer: Procedure Note Donotuseinterpreter, Image - 12/07/[address] [place] [address] Mammography Report Signed Patient: Diana Myles LMR#: [id number] : 1965Acct:[id number] Age/Sex: 59 / FADM Date: 11/29/24 Loc: HO.MAMMO Attending Dr: Shalonda Coley MD Ordering Physician: Shalonda Coley MDResults: 2Be nign Findings Date of Service: 11/29/24Follow Up: 1 Year From Orig ina Mammogram Procedure(s): MM tomosynthesis screening BI Accession Number(s): [id number] cc: Shalonda Coley MD EXAMINATION: MM SCREENING [...] by: Chaparrita Lyn DO 12/07/2024 03:32 PM [facility] Dictated By: Chaparrita Lyn DO Signed By: <Electronically signed by Chaparrita Lyn DO in OV> 12/07/24 1532 DD/ 0845 TD/TT: 11/29/24 0915 [employer] Assembler [employer] Packer: Shalonda Coley MD [facility] BI PROCEDURES Edited Result - Final * (ABNORMAL) Hm Colonoscopy (07/30/2023) Colonoscopy Abnormal( A) Normal [facility] Comment:SSL polyp Shalonda Coley MD HEALTH MAINTENANCE Final Result [facility] [address] [place] [address] [phone] * Thinprep PAP and HPV nRNA E6/E7 (10/08/2022 9:30 AM EST) Clinical Information: None given [facility] LMP: NONE GIVEN [facility] Prev. PAP: NONE GIVEN [facility] Prev. BX: NONE GIVEN [facility] SOURCE: None given [facility] Statement Of Adequacy: SATISFACTORY FOR EVALUATION Age and/or menstrual status not provided [place] Interpretation/Re sult: [facility] Comment: Negative for intraepithelial lesion or malignancy. Atrophic pattern; predominantly parabasal cells Snailer: [facility] Comment: DMM, CT(ASCP) CT screening location: [place] [address] Review Snailer: [facility] Comment: SHON CT(ASCP) CT screening location: [place] [address] (Always Message) [facility] Comment: EXPLANATORY NOTE: The Pap is a [...] HPV nRNA E6/E7 Not Detected Not Detected [facility] Comment: Methodology: Pressure Supervisor-Mediated Amplification This assay detects E6/E7 viral messenger RNA (mRNA) from 14 high-risk HPV types (16,18,31,33,35,39,45,51,52,56,58,59,66,68). Cervical sources are required for HPV testing. If a vaginal source from a patient who has had a total hysterectomy with removal of cervix was submitted, please contact the testing laboratory for alternative testing options. For additional information, please refer to http://education.Ropatec/faq/MBU408p7 (This link if provided for information/ educational purposes only.) 10/08/2022 9:30 AM EST 10/10/2022 1:07 AM EST Narrative [facility] - 10/14/2022 7:08 PM EST FASTING: UNKNOWN Shauna Matam[facility] PATHOLOGY ORDERABLES Final Result Performing Organization Address City/[facility]/ZIP Co de Phone Number [employer] [address] [place] [address], [place] [address] [employer] [facility] [address], [facility] [place] [address] * HIV AB/AG (04/30/2022 11:28 AM EDT) Pathologist [facility] HIV AB/AG Nonreactive Nonreactive [facility] [...] of detection of this assay. The [facility] HIV Ag/Ab Combo assay result and supplemental assay results should be interpreted in conjunction with the patient's clinical presentation, history and other laboratory results. If the results are inconsistent with clinical evidence, additional testing is suggested to confirm the result. Hepatitis B Surface Antibody REACTIVE Nonreactive [facility] Comment:REACTIVE: > 11.99 mI U/mL Hepatitis B Surface Antigen Negative Negative [facility] Hepatitis B Core Antibody Nonreactive Nonreactive [facility] 04/30/2022 11:2 8 AM EDT Shalonda Coley MD HISTORICAL/NON ORDERABLE LABS Final Result [facility] [address] [place] [address], from Last 3 Months or Most Recently Relevant to Health Maintenance Insurance [employer] [employer] [place] AD[place] Care Teams Rim Fire Priming Tool Setter Relationship Specialty Start Date End Date Shalonda Coley MD [address] [place] [id number] PCP - General Family Medicine 10/31/16 [place], BEBA [address] [place] [phone] Registered Nurse Family Medicine 05/10/25 [facility] 05/18/25
--- OUTSIDE RECORDS SUMMARY | 2025-07-18 16:23 | XMS_ITS | Encounter Summary ---
Author Organization [employer] [facility] Address [address] [place] [address] 7t [place] [address] Care Team Providers Care Campaign Consultant Name Role Phone Umm Coley MD Primary Care Provider + West Meier RN Unavailable [phone] West Meier RN Unavailable [phone] Shannan Covington Unavailable Reason for Visit * Reason Comments Med Refill Encounter Details Date Type Department Care Team (Late st Contact Info) Description 08/01/2023 Refill [facility] MEDICINE [address] [place], [place] [phone] Umm Coley MD [address] [place], [place] [phone] Social History Tobacco Use Types Packs/Day Years [...] 11:45 AM EDT Office Visit [facility] MEDICINE 230 [place] [address] Umm Coley MD 230 [place] [address] documented as of this encounter Visit Diagnoses Not on filedocumented in this encounter Additional Health Concerns Assessment Noted Time PHQ-9 Depression Total Score: 12 023 1:58 PM EDT documented as of this encounter Care Teams Campaign Consultant Relationship Specialty Start Date End Date Umm Coley MD 230 [place] [address] PCP - General Family Medicine 10/31/16 West Meier, RN 505 [place] [address] Claim InspectorTelescope Repairer 01/12/25 04/25/25 West Meier RN 505 [place] [address] Registered Nurse Family Medicine 05/10/25 Shannan Covington 06/08/25 06/08/25 Eva Nunez Claim Inspector 04/05/24 07/06/24 [facility] 05/11/24 11/17/24 [facility] 11/14/24 01/17/25 [employer] 12/08/24 [facility] 05/18/25 documented as of this encounter
--- OUTSIDE RECORDS SUMMARY | 2025-07-18 16:23 | XMS_ITS | Encounter Summary ---
Author Organization [employer] Address [address] [place] [address] 7t [place] [address] Care Team Providers Care Fuel Handler Name Role Phone Umm Coley MD Primary Care Provider + West Meier RN Unavailable [phone] West Meier RN Unavailable [phone] Shannan Covington Unavailable Reason for Visit * Reason Onset Date Comments appt 01/08/2024 Encounter Details Date Type Department Care Team (Late st Contact Info) Description 01/08/2024 Telephone [facility] ADULT DENTAL [address] [place], [place] [phone] Homer Strong DDS [address] [place], [place] [phone] appt Social History Tobacco Use Types Packs/Day [...] Upcoming Encounters Date Type Department Care Team ([facility] st Contact Info) Description 08/10/2025 11:45 AM EDT Office Visit [facility] MEDICINE 230 [place] [address] Umm Coley MD 230 [place] [address] documented as of this encounter Visit Diagnoses Not on filedocumented in this encounter Additional Health Concerns Assessment Noted Time PHQ-9 Depression Total Score: 21 024 11:31 AM EST documented as of this encounter Care Teams Fuel Handler Relationship Specialty Start Date End Date Umm Coley MD [address] [place] [address] PCP - General Family Medicine 10/31/16 West Meier RN 505 [place] [address] Chief Controller StationTechnology Integration Specialist 01/12/25 04/25/25 West Meier RN 505 [place] [address] Registered Nurse Family Medicine 05/10/25 Shannan Covington 06/08/25 06/08/25 Eva Nunez Chief Controller Station 04/05/24 07/06/24 [facility] 05/11/24 11/17/24 [facility] 11/14/24 01/17/25 [employer] 12/08/24 [facility] 05/18/25 documented as of this encounter
--- OUTSIDE RECORDS SUMMARY | 2025-07-18 16:23 | XMS_ITS | Encounter Summary ---
Author Organization [facility] Address [address] [place] [address] 7t [place] [address] Care Team Providers Care Client Technical Professional Name Role Phone Umm Coley MD Primary Care Provider + West Meier RN Unavailable [phone] West Meier RN Unavailable [phone] Shannan Covington Unavailable Encounter Details Date Type Department Care Team (Latest Contact Info) Description 11/23/2020 Abstract [facility] CONVERSIONS Dental, Provider, DDS Social [...] 08/10/2025 11:45 AM EDT Office Visit [facility] MEDICINE 230 [place], [place] [phone] Umm Coley MD [address] [place], [place] [phone] documented as of this encounter Visit Diagnoses Not on filedocumented in this encounter Care Teams Client Technical Professional Relationship Specialty Start Date End Date Umm Coley MD [address] [place], [place] [phone] PCP - General Family Medicine 10/31/16 West Meier, BEBA [address] [place] [address] Crane Ladle PersonManager Biostatistics 01/12/25 04/25/25 West Meier RN [address] [place] [address] Registered Nurse Family Medicine 05/10/25 Shannan Covington 06/08/25 06/08/25 Eva Nunez Crane Ladle Person 04/05/24 07/06/24 [facility] 05/11/24 11/17/24 [facility] 11/14/24 01/17/25 [employer] 12/08/24 [facility] 05/18/25 documented as of this encounter
--- OUTSIDE RECORDS SUMMARY | 2025-07-18 16:23 | XMS_ITS | Encounter Summary ---
Author Organization [employer] Address [address] [place] [address] 7t [place] [address] Care Team Providers Care Marketing Communication Manager Name Role Phone Umm Coley MD Primary Care Provider + West Meier RN Unavailable [phone] Reason for Visit * Reason Comments Med Refill Encounter Details Date Type Department Care Team (Late st Contact Info) Description 07/06/2025 Refill [facility] MEDICINE 230 [place], [place] 1800140 Umm Coley MD 230 [place], [place] [phone] Social History Tobacco Use Types Packs/Day Years [...] Description 08/10/2025 11:45 AM EDT Office Visit [facility] MEDICINE 230 [place] [address] Umm Coley MD 230 [place] [address] documented as of this encounter Visit Diagnoses Not on filedocumented in this encounter Additional Health Concerns Assessment Noted Time PHQ-9 Depression Total Score: 10 024 9:17 AM EDT documented as of this encounter Care Teams Marketing Communication Manager Relationship Specialty Start Date End Date Umm Coley MD 230 [place] [address] PCP - General Family Medicine 10/31/16 West Meier, BEBA [address] [place] [address] Registered Nurse Family Medicine 05/10/25 [facility] 05/18/25 documented as of this encounter
--- OUTSIDE RECORDS SUMMARY | 2025-07-18 16:23 | XMS_ITS | Encounter Summary ---
Author Organization [employer] [facility] Address [address] [place] [address] 7[place] [address] Care Team Providers Care Key Person Name Role Phone Umm Coley MD Primary Care Provider + West Meier RN Unavailable [phone] West Meier RN Unavailable [phone] Shannan Covington Unavailable Encounter Details Date Type Department Care Team (Late st Contact Info) Description 09/24/2022 Abstract [facility] ADULT DENTAL 230 [place], [place] [phone] Dental, Provider, DDS Social History Tobacco Use [...] 11:45 AM EDT Office Visit [facility] MEDICINE 230 [place], [place] [phone] Umm Coley MD 230 [place], [place] [phone] documented as of this encounter Procedures Procedure [...] on filedocumented in this encounter Care Teams Key Person Relationship Specialty Start Date End Date Umm Coley MD [address] [place] [address] PCP - General Family Medicine 10/31/16 West Meier RN 505 [place] [address] Car WreckerScalder 01/12/25 04/25/25 West Meier RN 505 [place] [address] Registered Nurse Family Medicine 05/10/25 Shannan Covington 06/08/25 06/08/25 Eva Nunez Car Wrecker 04/05/24 07/06/24 [facility] 05/11/24 11/17/24 [facility] 11/14/24 01/17/25 [employer] 12/08/24 [facility] 05/18/25 documented as of this encounter
--- OUTSIDE RECORDS SUMMARY | 2025-07-18 16:23 | XMS_ITS | Encounter Summary ---
Author Organization [employer] Address [address] [place] [address] 7t [place] [address] Care Team Providers Care Telephone Operators Supervisor Name Role Phone Umm Coley MD Primary Care Provider + West Meier RN Unavailable Reason for Visit * Reason Onset Date Comments Med Refill 06/28/2025 Encounter Details Date Type Department Care Team (Late st Contact Info) Description 06/28/2025 Telephone [facility] MEDICINE [address] [place], [place] [phone] Umm Coley MD 230 [place], [place] [phone] Med Refill Social History Tobacco Use Types [...] MCG (1999) capsule To be sent to: [facility]/pharmacy #[id number] [place], [place] - [address] [place] [address] documented in this encounter Plan of Treatment Upcoming Encounters Date Type Department Care Team ([facility] st Contact Info) Description 08/10/2025 11:45 AM EDT Office Visit [facility] MEDICINE [address] [place] [address] Umm Coley MD [address] [place] [address] documented as of this encounter Visit Diagnoses Not on filedocumented in this encounter Additional Health Concerns Assessment Noted Time PHQ-9 Depression Total Score: 10 024 9:17 AM EDT documented as of this encounter Care Teams Telephone Operators Supervisor Relationship Specialty Start Date End Date Umm Coley MD [address] [place] [address] PCP - General Family Medicine 10/31/16 West Meier, BEBA [address] [place] [address] Registered Nurse Family Medicine 05/10/25 [facility] 05/18/25 documented as of this encounter
--- OUTSIDE RECORDS SUMMARY | 2025-07-18 16:23 | XMS_ITS | Encounter Summary ---
Author Organization [employer] Address [address] [place] [address] 7t [place] [address] Care Team Providers Care Gas Reverser Name Role Phone Umm Coley MD Primary Care Provider + West Meier RN Unavailable [phone] West Meier RN Unavailable [phone] Shannan Covington Unavailable Reason for Visit * Reason Onset Date Comments Dr. Gonzalez conversation PCP/cleared for tx?? Encounter Details Date Type Department Care Team ([facility] st Contact Info) Description 03/28/2025 Telephone [facility] ADULT DENTAL 505 [place], [place] [phone] Johnny Gonzalez, WILIAN [address] [place], [place] [phone] Dr. Gonzalez conversation PCP/cleared for tx?? Social [...] Send to both provider clinical support and commercial front load operator DR documented in this encounter Plan of Treatment Upcoming Encounters Date Type Department Care Team (Late st Contact Info) Description 08/10/2025 11:45 AM EDT Office Visit [facility] MEDICINE 230 [place] [address] Umm Coley MD 230 [place] [address] documented as of this encounter Visit Diagnoses Not on filedocumented in this encounter Additional Health Concerns Assessment Noted Time PHQ-9 Depression Total Score: 10 024 9:17 AM EDT documented as of this encounter Care Teams Gas Reverser Relationship Specialty Start Date End Date Umm Coley MD [address] [place] [address] PCP - General Family Medicine 10/31/16 West Meier, RN 505 [place] [address] Laser SpecialistIct Analyst 01/12/25 04/25/25 West Meier, RN [address] [place] [address] Registered Nurse Family Medicine 05/10/25 Shannan Covington 06/08/25 06/08/25 [facility] 05/18/25 documented as of this encounter
--- OUTSIDE RECORDS SUMMARY | 2025-07-18 16:23 | XMS_ITS | Encounter Summary ---
Author Organization [employer] Address [address] [place] [address] 7t [place] [address] Care Team Providers Care Carbonizer Tester Name Role Phone Umm Coley MD Primary Care Provider + West Meier RN Unavailable [phone] West Meier RN Unavailable [phone] Shannan Covington Unavailable Encounter Details Date Type Department Care Team (Late st Contact Info) Description 11/03/2022 Orders Only [facility] MEDICINE 230 [place], [place] [phone] Umm Coley MD 230 [place], [place] [phone] Osteopenia after menopause (Primary Dx) Social History [...] Description 08/10/2025 11:45 AM EDT Office Visit [facility] MEDICINE 230 [place], [place] [phone] Umm Coley MD 230 [place], [place] [phone] Scheduled Orders Name Type Priority Associated Diagnoses Orde r Schedule Vitamin D, 25-Hydroxy, Total, Immunoassay Lab Routine Osteopenia after menopause Expected: 11/03/2022 (Approximate), Expires: 11/03/2023 PTH, Intact (ICMA) And Ionized Calcium Lab Routine Osteopenia after menopause Expected: 11/03/2022 (Approximate), Expires: 11/03/2023 documented as of this encounter Visit Diagnoses Diagnosis Osteopenia after menopause- Primary documented in this encounter Care Teams Carbonizer Tester Relationship Specialty Start Date End Date Umm Coley MD 230 [place], [place] [phone] PCP - General Family Medicine 10/31/16 West Meier, RN 505 [place] [address] Statement Clerks SupervisorWallet Assembler 01/12/25 04/25/25 West Meier, RN 505 [place] [address] Registered Nurse Family Medicine 05/10/25 Shannan Covington 06/08/25 06/08/25 Eva Nunez Statement Clerks Supervisor 04/05/24 07/06/24 [facility] 05/11/24 11/17/24 [facility] 11/14/24 01/17/25 [employer] 12/08/24 [facility] 05/18/25 documented as of this encounter
--- OUTSIDE RECORDS SUMMARY | 2025-07-18 16:24 | XMS_ITS | Encounter Summary ---
Author Organization [employer] Address [address] [place] [address] 7t [place] [address] Care Team Providers Care Housing Grant Analyst Name Role Phone Umm Coley MD Primary Care Provider + West Meier RN Unavailable [phone] West Meier RN Unavailable [phone] Shannan Covington Unavailable Reason for Visit * Reason Comments Med Change Request Encounter Details Date Type Department Care Team (Late st Contact Info) Description 03/20/2023 Refill [facility] ADULT DENTAL 230 [place] [address] Johnny Gonzalez DMD 505 [place], [place] [phone] Social History Tobacco Use Types Packs/Day Years [...] [facility] 230 [place], [place] [phone] Umm Coley MD 230 [place], [place] [phone] documented as of this encounter Visit Diagnoses Not on filedocumented in this encounter Care Teams Housing Grant Analyst Relationship Specialty Start Date End Date Umm Coley MD 230 [place], [place] [phone] PCP - General Family Medicine 10/31/16 West Meier RN 505 [place] [address] Communications ClerkHogshead Liner 01/12/25 04/25/25 West Meier RN 505 [place] [address] Registered Nurse Family Medicine 05/10/25 Shannan Covington 06/08/25 06/08/25 Eva Nunez Communications Clerk 04/05/24 07/06/24 [facility] 05/11/24 11/17/24 [facility] 11/14/24 01/17/25 Repair Report 12/08/24 [facility] 05/18/25 documented as of this encounter
--- OUTSIDE RECORDS SUMMARY | 2025-07-18 16:24 | XMS_ITS | Encounter Summary ---
Author Organization [employer] Address [address] [place] [address] 7t [place] [address] Care Team Providers Care Oracle Developer Name Role Phone Umm Coley MD Primary Care Provider + West Meier RN Unavailable [phone] West Meier RN Unavailable [phone] Shannan Covington Unavailable Reason for Visit * Reason Comments Med Refill Encounter Details Date Type Department Care Team (Late st Contact Info) Description 05/21/2023 Refill [facility] MEDICINE 230 [place], [place] [phone] Umm Coley MD 230 [place], [place] [phone] Arthritis of knee Social History Tobacco Use [...] Description 08/10/2025 11:45 AM EDT Office Visit [facility] MEDICINE 230 [place] [address] Umm Coley MD 230 [place], [place] [phone] documented as of this encounter Visit Diagnoses Diagnosis Arthritis of knee Unspecified arthropathy, lower leg documented in this encounter Additional Health Concerns Assessment Noted Time PHQ-9 Depression Total Score: 12 023 1:58 PM EDT documented as of this encounter Care Teams Oracle Developer Relationship Specialty Start Date End Date Umm Coley MD 230 [place] [address] PCP - General Family Medicine 10/31/16 West Meier RN [address] [place] [address]Butcher Helper 01/12/25 04/25/25 West Meier RN 505 [place] [address] Registered Nurse Family Medicine 05/10/25 Shannan Covington 06/08/25 06/08/[address] 04/05/24 07/06/24 [facility] 05/11/24 11/17/24 [facility] 11/14/24 01/17/25 [employer] 12/08/24 [facility] 05/18/25 documented as of this encounter
--- OUTSIDE RECORDS SUMMARY | 2025-07-18 16:24 | XMS_ITS | Encounter Summary ---
Author Organization [employer] Address [address] [place] [address] 7t [place] [address] Care Team Providers Care Home Appraiser Name Role Phone Umm Coley MD Primary Care Provider + West Meier RN Unavailable [phone] West Meier RN Unavailable [phone] Shannan Covington Unavailable Encounter Details Date Type Department Care Team (Late st Contact Info) Description 03/05/2023 Orders Only [facility] MEDICINE 230 [place], [place] [phone] Umm Coley MD 230 [place], [place] [phone] Social History Tobacco Use Types Packs/Day Years [...] 11:45 AM EDT Office Visit [facility] MEDICINE 230 [place] [address] Umm Coley MD 230 [place] [address] documented as of this encounter Visit Diagnoses Not on filedocumented in this encounter Care Teams Home Appraiser Relationship Specialty Start Date End Date Umm Coley MD 230 [place] [address] PCP - General Family Medicine 10/31/16 West Meier, RN 505 [place] [address] Hospice Nurse PractitionerSlag Mixer 01/12/25 04/25/25 West Meier RN 505 [place] [address] Registered Nurse Family Medicine 05/10/25 Shannan Covington 06/08/25 06/08/25 Eva Nunez Hospice Nurse Practitioner 04/05/24 07/06/24 [facility] 05/11/24 11/17/24 [facility] 11/14/24 01/17/25 [employer] 12/08/24 [facility] 05/18/25 documented as of this encounter
--- OUTSIDE RECORDS SUMMARY | 2025-07-18 16:24 | XMS_ITS | Encounter Summary ---
Author Organization [employer] Address [address] [facility] 7t [place] [address] Care Team Providers Care Hand Ii Cutter Name Role Phone Umm Coley MD Primary Care Provider + West Meier RN Unavailable [phone] West Meier RN Unavailable [phone] Shannan Covington Unavailable Encounter Details Date Type Department Care Team (Late st Contact Info) Description 08/23/2024 Orders Only [facility] ADULT DENTAL 505 [place], [place] [phone] Johnny Gonzalez, WILIAN 505 [place], [place] [phone] Social History Tobacco Use Types Packs/Day Years [...] 11:45 AM EDT Office Visit [facility] MEDICINE 230 [place] [address] Umm Coley MD 230 [place] [address] documented as of this encounter Visit Diagnoses Not on filedocumented in this encounter Additional Health Concerns Assessment Noted Time PHQ-9 Depression Total Score: 10 024 9:17 AM EDT documented as of this encounter Care Teams Hand Ii Cutter Relationship Specialty Start Date End Date Umm Coley MD 230 [place] [address] PCP - General Family Medicine 10/31/16 West Meier RN [address] [place] [address] Nail Mill WorkerFloor Coverings Salesperson 01/12/25 04/25/25 West Meier RN [address] [place] [address] Registered Nurse Family Medicine 05/10/25 Shannan Covington 06/08/25 06/08/25 [facility] 05/11/24 11/17/24 [facility] 11/14/24 01/17/25 [employer] 12/08/24 [facility] 05/18/25 documented as of this encounter
--- OUTSIDE RECORDS SUMMARY | 2025-07-18 16:24 | XMS_ITS | Encounter Summary ---
Author Organization [employer] Address [address] [place] [address] 7t [place] [address] Care Team Providers Care Short Story Writer Name Role Phone Umm Coley MD Primary Care Provider + West Meier RN Unavailable [phone] West Meier RN Unavailable [phone] Shannan Covington Unavailable Reason for Visit * Reason Onset Date Comments Appointment 02/24/2023 Encounter Details Date Type Department Care Team (Late st Contact Info) Description 02/24/2023 Telephone [facility] ADULT DENTAL 230 [place] [address] Johnny Gonzalez, WILIAN [address] [place], [place] [phone] Appointment Social History Tobacco Use Types Packs/Day [...] Description 08/10/2025 11:45 AM EDT Office Visit [facility] MEDICINE [address] [place] [address] [phone] Umm Coley MD [address] [place] [address] documented as of this encounter Visit Diagnoses Not on filedocumented in this encounter Care Teams Short Story Writer Relationship Specialty Start Date End Date Umm Coley MD [address] [place] [address] PCP - General Family Medicine 10/31/16 West Meier RN 505 [place] [address] E Commerce Merchandising CoordinatorSupervisor Final 01/12/25 04/25/25 West Meier RN 505 [place] [address] Registered Nurse Family Medicine 05/10/25 Shannan Covington 06/08/25 06/08/25 Eva Nunez E Commerce Merchandising Coordinator 04/05/24 07/06/24 [facility] 05/11/24 11/17/24 [facility] 11/14/24 01/17/25 [employer] 12/08/24 [facility] 05/18/25 documented as of this encounter
--- OUTSIDE RECORDS SUMMARY | 2025-07-18 16:24 | XMS_ITS | Encounter Summary ---
Author Organization [employer] Address [address] [place] [address] 7t [place] [address] Care Team Providers Care Telegraph Operator Name Role Phone Umm Coley MD Primary Care Provider + West Meier RN Unavailable [phone] Reason for Visit * Reason Onset Date Comments Med Refill 07/14/2025 Encounter Details Date Type Department Care Team (Late st Contact Info) Description 07/14/2025 Telephone [facility] MEDICINE 230 [place], [place] [phone] Umm Coley MD 230 [place], [place] [phone] Med Refill Social History Tobacco Use Types [...] encounter Miscellaneous Notes * Telephone Encounter - Crys Handy RN - 07/18/2025 12:28 PM EDT TC returned to pt. At [phone], no answer, left VM requesting call back to Red Team RN upon receipt of message. Pt. To f/up at PCP appt. 08/10/25 or sooner prn * Telephone Encounter - Jacy Covington - 07/18/2025 8:15 AM EDT Tc from pt requesting medication one more time. PCP discontinued the medication after visit on 05/02/25, but pt stated she was never aware of this. If any questions contact pt at [phone] Need clerical and administrative workers * Telephone Encounter - Lovely Majano LPN - 07/14/2025 8:24 AM EDT Medication was discontinued on 05.02.25 therapy completed * Telephone Encounter - Cedrick Malagon - 07/14/2025 8:11 AM EDT Tc from pt requesting Vitamin D3. To be sent to [facility]/pharmacy #[id number] [place], [place] - [address] [place] [address] documented in this encounter Plan of Treatment Upcoming Encounters Date Type Department Care Team (Late st Contact Info) Description 08/10/2025 11:45 AM EDT Office Visit [facility] MEDICINE [address] [place] [address] Umm Coley MD [address] [place] [address] documented as of this encounter Visit Diagnoses Not on filedocumented in this encounter Additional Health Concerns Assessment Noted Time PHQ-9 Depression Total Score: 18 025 12:18 PM EDT documented as of this encounter Care Teams Telegraph Operator Relationship Specialty Start Date End Date Umm Coley MD [address] [place] [address] PCP - General Family Medicine 10/31/16 West Meier, BEBA [address] [place] [address] Registered Nurse Family Medicine 05/10/25 [facility] 05/18/25 documented as of this encounter
--- OUTSIDE RECORDS SUMMARY | 2025-07-18 16:24 | XMS_ITS | Encounter Summary ---
Author Organization [employer] Address [address] [place] [address] 7t [place] [address] Care Team Providers Care Safety Administrator Name Role Phone Umm Coley MD Primary Care Provider + West Meier RN Unavailable [phone] West Meier RN Unavailable [phone] Shannan Covington Unavailable Reason for Visit * Reason Onset Date Comments pre med prior to dental treatment 08/23/2024 Encounter Details Date Type Department Care Team ([facility] st Contact Info) Description 08/23/2024 Telephone [facility] ADULT DENTAL [address] [place], [place] [phone] Johnny Gonzalez DMD [address] [place], [place] [phone] pre med prior to dental treatment Social [...] spoke with Nina in the front end drupal developer with a run through of what was happening with the patient and she stated she would also send something to provider for clarificationDR documented in this encounter Plan of Treatment Upcoming Encounters Date Type Department Care Team (Late st Contact Info) Description 08/10/2025 11:45 AM EDT Office Visit [facility] MEDICINE [address] [place] [address] Umm Coley MD [address] [place] [address] documented as of this encounter Visit Diagnoses Not on filedocumented in this encounter Additional Health Concerns Assessment Noted Time PHQ-9 Depression Total Score: 10 024 9:17 AM EDT documented as of this encounter Care Teams Safety Administrator Relationship Specialty Start Date End Date Umm Coley MD [address] [place] [address] PCP - General Family Medicine 10/31/16 West Meier, BEBA [address] [place] [address] Tax Map TechnicianEvaluation Analyst 01/12/25 04/25/25 West Meier, BEBA [address] [place] [address] Registered Nurse Family Medicine 05/10/25 Shannan Covington 06/08/25 06/08/25 [facility] 05/11/24 11/17/24 [facility] 11/14/24 01/17/25 [employer] 12/08/24 [facility] 05/18/25 documented as of this encounter
--- OUTSIDE RECORDS SUMMARY | 2025-07-18 16:24 | XMS_ITS | Encounter Summary ---
Author Organization [employer] Address [address] [facility] 7t [place] [address] Care Team Providers Care Orthodontic Technician Assistant Name Role Phone Umm Coley MD Primary Care Provider + West Meier RN Unavailable Encounter Details Date Type Department Care Team (Late st Contact Info) Description 07/18/2025 Orders Only [facility] External Provider, [facility] Social History Tobacco Use Types Packs/Day [...] [facility] MEDICINE [address] [place] [id number] Umm Coley MD [address] [place] [address] documented as of this encounter Procedures Procedure Name Priority Date/Time Associated Diagnosis Comments XR ABDOMEN 2V+ Routine 07/18/2025 2:00 PM EDT XR THORACIC SPINE 2 VIEWS Routine 07/18/2025 1:56 PM EDT XR RIBS 2 VIEWS RIGHT Routine 07/18/2025 1:50 PM EDT URINALYSIS WITH REFLEX MICROSCOPIC Routine 07/18/2025 1:33 PM EDT documented in this encounter Results * XR Abdomen 2 View minimum (07/18/2025 2:00 PM EDT) Anatomical Region Laterality Modality Abdomen Radiographic Kyleigh ging 07/18/2025 2:00 PM EDT Narrative 07/18/2025 2:30 PM EDT [place] [address] XRay Report Signed Patient: Diana Mcpherson MR#: M [id number] : 1965 Acct:[id number] Age/Sex: 60 / F ADM Date: 07/18/25 Loc: [facility] Attending Dr: Zee ALCANTARA Ordering Physician: Zee Palma Date of Service: 07/18/25 Procedure(s): XR abdomen min 2V Accession Number(s): [id number] cc: Zee Palma; Umm Coley MD Reason for Exam: R10.9 - [...] Elton Lau MD 07/18/2025 02:27 PM EDT RP Dictated By: Elton Lau MD Signed By: <Electronically signed by Elton Lau MD in OV> 07/18/25 1427 DD/ 1400 TD/TT: 07/18/25 1411 Group Cio: Procedure Note Donotuseinterpreter, Image - 07/18/[address] [address] XRay Report Signed Patient: Diana Mcpherson LMR#: M [id number] : 1965Acct:[id number] Age/Sex: 60 / FADM Date: 07/18/25 Loc: HO.XRAY Attending Dr: Zee ALCANTARA Ordering Physician: Zee Palma Date of Service: 07/18/25 Procedure(s): XR abdomen min 2V Accession Number(s): [id number] cc: Zee Palma; Umm Coley MD Reason for Exam: R10.9 - [...] Elton Lau MD 07/18/2025 02:27 PM EDT RP Dictated By: Elton Lau MD Signed By: <Electronically signed by Elton Lau MD in OV> 07/18/25 1427 DD/ 1400 TD/TT: 07/18/25 1411 Group Cio: [facility] External Provider IMG XR PROCEDURES Edited Result - Final * XR Thoracic Spine 2 Views (07/18/2025 1:56 PM EDT) Anatomical Region Laterality Modality Spine, T-spine Radiographic Kyleigh ging 07/18/2025 1:56 PM EDT Narrative 07/18/2025 2:18 PM EDT [place] [address] XRay Report Signed Patient: Diana Mcpherson MR#: M [id number] : 1965 Acct:[id number] Age/Sex: 60 / F ADM Date: 07/18/25 Loc: JOEL.ALIYA Attending Dr: Zee ALCANTARA Ordering Physician: Zee Palma Date of Service: 07/18/25 Procedure(s): XR thoracic spine 2V Accession Number(s): [id number] cc: Zee Palma; Umm Coley MD Reason for Exam: R10.9 - [...] 07/18/25 1414 DD/ 1356 TD/TT: 07/18/25 1411 Group Cio: Procedure Note Donotjadeninterpreter, Image - 07/18/2025 [place] [address] XRay Report Signed Patient: Diana Mcpherson LMR#: M [id number] : 1965Acct:[id number] Age/Sex: 60 / FADM Date: 07/18/25 Loc: HO.XRAY Attending Dr: Zee ALCANTARA Ordering Physician: Zee Palma Date of Service: 07/18/25 Procedure(s): XR thoracic spine 2V Accession Number(s): [id number] cc: Zee Palma; Umm Coley MD Reason for Exam: R10.9 - [...] 07/18/25 1414 DD/ 1356 TD/TT: 07/18/25 1411 Group Cio: [facility] External Provider IMG XR PROCEDURES Edited Result - Final * XR Ribs 2 Views Right (07/18/2025 1:50 PM EDT) Anatomical Region Laterality Modality Rib, Abdomen Right Radiographic Kyleigh ging 07/18/2025 1:50 PM EDT Narrative 07/18/2025 2:19 PM EDT [address] [address] XRay Report Signed Patient: Diana Mcpherson MR#: M [id number] : 1965 Acct:[id number] Age/Sex: 60 / F ADM Date: 07/18/25 Loc: M[facility]AT Attending Dr: Zee ALCANTARA Ordering Physician: Zee Palma Date of Service: 07/18/25 Procedure(s): XR ribs RT 2V Accession Number(s): [id number] cc: Zee Palma; Umm Coley MD Reason for Exam: R10.9 - [...] 07/18/25 1415 DD/ 1350 TD/TT: 07/18/25 1412 Group Cio: Procedure Note Donotuseinterpreter, Image - 07/18/[address] [address] XRay Report Signed Patient: Diana Mcpherson LMR#: M [id number] : 1965Acct:[id number] Age/Sex: 60 / FADM Date: 07/18/25 Loc: MERVAT Attending Dr: Zee ALCANTARA Ordering Physician: Zee Palma Date of Service: 07/18/25 Procedure(s): XR ribs RT 2V Accession Number(s): [id number] cc: Zee Palma; Umm Coley MD Reason for Exam: R10.9 - [...] 07/18/25 1415 DD/ 1350 TD/TT: 07/18/25 1412 Group Cio: [facility] External Provider IMG XR PROCEDURES Edited Result - Final * Urinalysis w/reflex microscopic (07/18/2025 1:33 PM EDT) Color Urine Yellow [facility] Appearance Urine Clear [facility] PH 5.5 5.0 - 9.0 [facility] Glucose Urine UA Negative Negative mg/dL [facility] Urine Blood Negative Negative [facility] Specific [place] - Urine 1.020 1.005 - 1.025 [facility] Urine Protein Negative Neg-Trace mg/dL [facility] Urine Ketones Negative Negative mg/dL [facility] Nitrite Urine Negative Negative [facility] Leukocyte Esterase Urine Negative Negative [facility] 07/18/2025 1:33 PM EDT 07/18/2025 2:15 PM EDT Narrative [facility] - 07/18/2025 2:37 PM EDT Urine, Clean Catch us Generic External Data Provider LAB URINE ORDERAB LES Final Result [facility] [address] [place] [address] [phone] documented in this encounter Visit Diagnoses Not on filedocumented in this encounter Additional Health Concerns Assessment Noted Time PHQ-9 Depression Total Score: 18 025 12:18 PM EDT documented as of this encounter Care Teams Orthodontic Technician Assistant Relationship Specialty Start Date End Date Umm Coley MD [address] [place] [address] PCP - General Family Medicine 10/31/16 West Meier, BEBA [address] [place] [address] Registered Nurse Family Medicine 05/10/25 [facility] 05/18/25 documented as of this encounter
--- OUTSIDE RECORDS SUMMARY | 2025-07-18 16:24 | XMS_ITS ---
Author Organization [employer] Address [address] [place] [address] 7[address] [place] [address] Care Team Providers Care Belt Conveyor Drier Name Role Phone Umm Coley MD Primary Care Provider + West Meier RN Unavailable [phone] CM Complex Status:Enrolled (Active) Start date:05/10/2025 Enrollment date:05/10/2025 Enrollment reason:Referred by provider Overview Lost contact on [employer]. Re-opening program per PCP but now on GANESH. Case Team Name Relationship Phone West Meier RN(Responsible Staff) Registered N [facility] [phone] Continued Care and Services Coordination
--- OUTSIDE RECORDS SUMMARY | 2025-07-18 16:24 | XMS_ITS | Encounter Summary ---
Author Organization [employer] [facility] Address [address] [place] [address] 7t [place] [address] Care Team Providers Care Pyrometer Operator Name Role Phone Umm Coley MD Primary Care Provider + West Mieer RN Unavailable [phone] West Meier RN Unavailable [phone] Shannan Covington Unavailable Reason for Visit * Reason Comments Med Refill Encounter Details Date Type Department Care Team (Late st Contact Info) Description 02/05/2023 Refill [facility] MEDICINE [address] [place], [place] [phone] Umm Coley MD [address] [place], [place] [phone] Arthritis of knee Social History Tobacco Use [...] Description 08/10/2025 11:45 AM EDT Office Visit [facility] MEDICINE [address] [place] [address] Umm Coley MD [address] [place] [address] documented as of this encounter Visit Diagnoses Diagnosis Arthritis of knee Unspecified arthropathy, lower leg documented in this encounter Care Teams Pyrometer Operator Relationship Specialty Start Date End Date Umm Coley MD [address] [place] [address] PCP - General Family Medicine 10/31/16 West Meier RN [address] [place] [address] Network ProgrammerGlued Wood Tester 01/12/25 04/25/25 West Mieer RN [address] [place] [address] Registered Nurse Family Medicine 05/10/25 Shannan Covington 06/08/25 06/08/25 Eva Nunez Network Programmer 04/05/24 07/06/24 [facility] 05/11/24 11/17/24 [facility] 11/14/24 01/17/25 [employer] 12/08/24 [facility] 05/18/25 documented as of this encounter
--- OUTSIDE RECORDS SUMMARY | 2025-07-18 16:24 | XMS_ITS | Encounter Summary ---
Author Organization [facility] [facility] Address [address] [place] [address] 7t [place] [address] Care Team Providers Care Operations Accountant Name Role Phone Umm Coley MD Primary Care Provider + West Meier RN Unavailable [phone] West Meier RN Unavailable [phone] Shannan Covington Unavailable Reason for Visit * Reason Comments Med Refill Encounter Details Date Type Department Care Team (Late st Contact Info) Description 06/10/2023 Refill [facility] MEDICINE [address] [place], [place] [phone] Yenny Morris MD [address] [place], [place] [phone] Rash Social History Tobacco Use Types Packs/Day [...] 11:45 AM EDT Office Visit [facility] MEDICINE [address] [place] [address] Umm Coley MD [address] [place] [address] documented as of this encounter Visit Diagnoses Diagnosis Rash Rash and other nonspecific skin eruption documented in this encounter Additional Health Concerns Assessment Noted Time PHQ-9 Depression Total Score: 12 023 1:58 PM EDT documented as of this encounter Care Teams Operations Accountant Relationship Specialty Start Date End Date Umm Coley MD [address] [place] [address] PCP - General Family Medicine 10/31/16 West Meier, RN [address] [place] [address] Supervisor Winding DepartmentCable Tool Driller 01/12/25 04/25/25 West Meier, RN [address] [place] [address] Registered Nurse Family Medicine 05/10/25 Shannan Covington 06/08/25 06/08/25 Eva Nunez Supervisor Winding Department 04/05/24 07/06/24 [facility] 05/11/24 11/17/24 [facility] 11/14/24 01/17/25 code-laboration 12/08/24 [facility] 05/18/25 documented as of this encounter
--- OUTSIDE RECORDS SUMMARY | 2025-07-18 16:24 | XMS_ITS | Encounter Summary ---
Author Organization [employer] Address [address] [facility] 7t [place] [address] Care Team Providers Care Rubber Tire Curer Name Role Phone Umm Coley MD Primary Care Provider + West Meier RN Unavailable [phone] West Meier RN Unavailable [phone] Shannan Covington Unavailable Reason for Visit * Reason Onset Date Comments Appointment 03/17/2023 Encounter Details Date Type Department Care Team (Late st Contact Info) Description 03/17/2023 Telephone [facility] ADULT DENTAL [address] [place] [address] Johnny Gonzalez, WILIAN [address] [place], [place] [phone] Appointment Social History Tobacco Use Types Packs/Day [...] Upcoming Encounters Date Type Department Care Team ([facility] st Contact Info) Description 08/10/2025 11:45 AM EDT Office Visit [facility] MEDICINE [address] [place] [address] Umm Coley MD [address] [place] [address] documented as of this encounter Visit Diagnoses Not on filedocumented in this encounter Care Teams Rubber Tire Curer Relationship Specialty Start Date End Date Umm Coley MD [address] [place] [address] PCP - General Family Medicine 10/31/16 West Meier RN [address] [place] [address] Inside Steward/StewardessControl Electrician 01/12/25 04/25/25 West Meier RN [address] [place] [address] Registered Nurse Family Medicine 05/10/25 Shannan Covington 06/08/25 06/08/25 Eva Nunez Inside Steward/Stewardess 6/4/24 9/4/24 [facility] 05/11/24 11/17/24 [facility] 11/14/24 01/17/25 [employer] 12/08/24 [facility] 05/18/25 documented as of this encounter
--- OUTSIDE RECORDS SUMMARY | 2025-07-18 16:24 | XMS_ITS | Encounter Summary ---
Author Organization [employer] Address [address] [place] [address] 7t [place] [address] Care Team Providers Care Principal Statistical Scientist Name Role Phone Umm Coley MD Primary Care Provider + West Meier RN Unavailable [phone] West Meier RN Unavailable [phone] Shannan Covington Unavailable Reason for Visit * Reason Onset Date Comments Appointment 06/15/2023 Encounter Details Date Type Department Care Team (Late st Contact Info) Description 06/15/2023 Telephone [facility] ADULT DENTAL [address] [place] [address] Johnny Gonzalez, WILIAN [address] [place], [place] [phone] Appointment Social History Tobacco Use Types Packs/Day [...] Description 08/10/2025 11:45 AM EDT Office Visit [facility] MEDICINE [address] [place] [address] Umm Coley MD [address] [place] [address] documented as of this encounter Visit Diagnoses Not on filedocumented in this encounter Additional Health Concerns Assessment Noted Time PHQ-9 Depression Total Score: 12 023 1:58 PM EDT documented as of this encounter Care Teams Principal Statistical Scientist Relationship Specialty Start Date End Date Umm Coley MD [address] [place] [address] PCP - General Family Medicine 10/31/16 West Meier RN [address] [place] [address] Fiberglass Quality TechnicianRoller Billet Mill 01/12/25 04/25/25 West Meier RN [address] [place] [address] Registered Nurse Family Medicine 05/10/25 Shannan Covington 06/08/25 06/08/25 Eva Nunez Fiberglass Quality Technician 04/05/24 07/06/24 [facility] 05/11/24 11/17/24 [facility] 11/14/24 01/17/25 [employer] 12/08/24 [facility] 05/18/25 documented as of this encounter
--- OUTSIDE RECORDS SUMMARY | 2025-07-18 16:24 | XMS_ITS | Encounter Summary ---
Author Organization [employer] Address [address] [place] [address] 7t [place] [address] Care Team Providers Care Liquified Natural Gas Technician Name Role Phone Umm Coley MD Primary Care Provider + West Meier RN Unavailable [phone] West Meier RN Unavailable [phone] Shannan Covington Unavailable Reason for Visit * Reason Comments Med Change Request Encounter Details Date Type Department Care Team (Late st Contact Info) Description 03/20/2023 Refill [facility] ADULT DENTAL [address] [place] [address] Johnny Gonzalez DMD [address] [place], [place] [phone] Social History Tobacco Use Types Packs/Day Years [...] Description 08/10/2025 11:45 AM EDT Office Visit [facility] MEDICINE [address] [place], [place] [phone] Umm Coley MD [address] [place], [place] [phone] documented as of this encounter Visit Diagnoses Not on filedocumented in this encounter Care Teams Liquified Natural Gas Technician Relationship Specialty Start Date End Date Umm Coley MD [address] [place], [place] [phone] PCP - General Family Medicine 10/31/16 West Meier RN [address] [place] [address] Hopper FeederEyelet Riveter 01/12/25 04/25/25 West Meier RN [address] [place] [address] Registered Nurse Family Medicine 05/10/25 Shannan Covington 06/08/25 06/08/25 Eva Nunez Hopper Feeder 04/05/24 07/06/24 [facility] 05/11/24 11/17/24 [facility] 11/14/24 01/17/25 [employer] 12/08/24 [facility] 05/18/25 documented as of this encounter
== END 2025-07-18 13:05 | disposition home or self-care (01) ==
LOC: HO.HGI 12:20
PROVIDERS: PCP Internal Medicine; Visit Provider Nurse Practitioner
DX: K21.9 Gastro-esophageal reflux disease without esophagitis (principal); K58.2 Mixed irritable bowel syndrome; R10.9 Unspecified abdominal pain; Z87.19 Personal history of other diseases of the digestive system
CPT/HCPCS: 99214

== ENCOUNTER 2025-07-18 12:04 | Outpatient (REF) | payer MEDICAID, SELFPAY ==
--- NOTE | ~2025-07-18 | XR_ITS ---
EXAMINATION: XR THORACIC SPINE CLINICAL INFORMATION: R10.9 - Unspecified abdominal pain COMPARISON: 07/16/2022 TECHNIQUE: 3 views of the thoracic spine were obtained. FINDINGS: There is no fracture or bone destruction seen and the vertebral alignment is normal. There is no disc space narrowing. There is no abnormality of the paraspinal soft tissues. XR/XR thoracic spine 2V IMPRESSION: Unremarkable examination. Electronically signed by: Elton Lau MD 07/18/2025 02:14 PM EDT
--- NOTE | ~2025-07-18 | XR_ITS ---
EXAMINATION: XR RIBS 2 VIEWS RIGHT HISTORY: R10.9 - Unspecified abdominal pain COMPARISON: Correlation is made with PA and lateral views of the chest dated 06/19/2025. FINDINGS: Four views of the right ribs are submitted. Osseous mineralization is normal. No fracture is seen. There are surgical clips in the right breast and right axilla. XR/XR ribs RT 2V IMPRESSION: Unremarkable examination of the right ribs. Electronically signed by: Beka Packer MD 07/18/2025 02:15 PM EDT
--- NOTE | ~2025-07-18 | XR_ITS ---
EXAMINATION: XR ABDOMEN COMPLETE CLINICAL INDICATION: R10.9 - Unspecified abdominal pain COMPARISON: None available. TECHNIQUE: 2 views of the abdomen. FINDINGS: Gas is seen in small and large bowel. There is a gas-filled loop on the supine x-ray] There is a gas-filled bowel right of the midline of the abdomen, medial to the ascending colon with a fold that does not completely traverse the lumen suggesting that this is within proximal transverse colon rather than small bowel. However, the inferior margin has a bird beaked morphology on the supine view. XR/XR abdomen min 2V IMPRESSION: Gas-filled small and large bowel is suggestive of an ileus. Focally gas-distended loop of bowel right of midline on the supine view has a pattern most consistent with a haustral fold indicating that the loop is gas-filled colon rather than dilated small bowel. However, there is a bird beak morphology at the inferior and that can be seen with a volvulus. However, the lumen dilation is usually more pronounced with a colonic volvulus. Correlate clinically. Electronically signed by: Elton Lau MD 07/18/2025 02:27 PM EDT
[2025-07-18 14:36] LABS: Appearance Urine Clear; Glucose Urine UA Negative (Negative); PH 5.5 (5.0-9.0); Specific Gravity - Urine 1.020 (1.005-1.025)
== END 2025-07-18 12:05 | disposition home or self-care (01) ==
LOC: HO.XRAY 12:04
PROVIDERS: PCP Internal Medicine; Visit Provider Nurse Practitioner
DX: K21.9 Gastro-esophageal reflux disease without esophagitis (principal); K58.2 Mixed irritable bowel syndrome; R10.9 Unspecified abdominal pain; Z87.19 Personal history of other diseases of the digestive system; Z79.899 Other long term (current) drug therapy
CPT/HCPCS: 71100; 72070; 74019; 81003; 99212

== ENCOUNTER → 2025-07-18 13:41 | Outpatient (BNV) | payer MEDICAID, SELFPAY | PROVIDERS: PCP Internal Medicine; Visit Provider Radiology Diagnostic Radiology | DX: R14.0 Abdominal distension (gaseous) (principal); R10.9 Unspecified abdominal pain | CPT/HCPCS: 71100; 72070; 74019 ==

== ENCOUNTER 2025-07-28 11:24 | Outpatient (AMB) | payer MEDICAID, SELFPAY ==
--- NOTE | 2025-07-28 11:25 | A.OFFVIS_ITS ---
Vital Signs 07/28/25 11:26 Height 5 ft 2 in Weight 108 lb BMI 19.8 Intake Visit Reasons: OV-Rt wrist ORIF/Rt CTR DOS 01/02/25-ROM/pain check Intake Note: Diana is a 60 year old female who presents today for a follow up status post Right Distal Radius ORIF & Carpal Tunnel Release, DOS: 01/02/25, by Dr. Cleveland. At her last visit on 05/09/25 she was advised to only wear Velcro wrist brace when leaving the house and to work on ROM exercises given by Occupational Therapy. Patient reports she has been working on OT exercises at home but she is still experiencing morning stiffness and unable to make a full fist with her small finger. She reports occasional pain, primarily with use of the hand. She has limitations carrying certain things and opening jars. Refinish Technician Required: Yes Refinish Technician Language: Can Labeler Services: Refinish Technician Present Refinish Technician Name: [id number] Allergies codeine (CODEINE) Allergy (Intermediate, Verified 07/28/25 11:27) DIZZY/NAUSEA, nausea/vomiting escitalopram (From LEXAPRO) Allergy (Intermediate, Verified 07/28/25 11:27) ? NAUSEA meperidine (MEPERIDINE) Allergy (Intermediate, Verified 07/28/25 11:27) NAUSEA morphine (MORPHINE) Allergy (Intermediate, Verified 07/28/25 11:27) PALPITATIONS, palpitation oxycodone (OXYCODONE) Allergy (Intermediate, Verified 07/28/25 11:27) PALPATATIONS, palpitations tramadol Allergy (Unknown, Verified 07/28/25 11:27) dizziness, nausea HPI HPI OV-Rt wrist ORIF/Rt CTR DOS 01/02/25-ROM/pain check: Details: Diana is a 60 year old female who presents today for a follow up status post Right Distal Radius ORIF & Carpal Tunnel Release, DOS: 01/02/25, by Dr. Cleveland. At her last visit on 05/09/25 she was advised to only wear Velcro wrist brace when leaving the house and to work on ROM exercises given by Occupational Therapy. Patient reports she has been working on OT exercises at home but she is still experiencing morning stiffness and unable to make a full fist with her small finger. Overall, however, the patient does state that her range of motion and strength have improved very significantly from previous evaluation. She reports occasional pain, primarily with use of the hand. She has limitations carrying certain things and opening jars. [facility] Medical History Migraine Paresthesia of skin Tension headache MCI (mild cognitive impairment) Peripheral neuropathy Breast cancer Primary osteoarthritis of right hand Right shoulder pain Rotator cuff tendinitis Arthritis of right shoulder region Right hand pain Breast cancer, right Status post radiation therapy Anemia Diarrhea Depression Somatization disorder Migraine equivalent syndrome Anxiety Periodontal disease Fibromyalgia Surgical History H/O hand surgery History of esophagogastroduodenoscopy (EGD) History of lumpectomy Hx of section Hx of shoulder surgery Hx of colonoscopy Family History Mother HTN (hypertension) Sister Breast cancer Bone cancer Colon polyps Sister Osteoporosis Hypercholesteremia Colon polyps Social History Household Members: None Housing: Apartment Are you a primary healthcare liaison to a significant other at home: No Do you presently have visiting nurse or other home services: No Alcohol intake: never Patient Tobacco Use Status: Former Tobacco user Years Smoked: 3 service: No Current occupational status: disabled 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 Review of Systems Const All systems reviewed & are unremarkable except as noted in HPI and below Physical Exam Vital Signs: BMI result Body Mass Index 19.8 Extrem Other: Incision sites on R wrists well approximated, well healed, no evidence of infection No evidence of surrounding erythema No erythema noted on the dorsal wrist Ecchymosis resolved Patient does experience stiffness of the digits of the right hand, but is able to make a closed fist with the 1st through 4th digits of the right hand, is able to get approximately 1-2 cm from a closed fist with the small finger Patient patient is able to supinate to approximately 60-70 degrees past neutral can pronate fully and without difficulty Compartments soft, nontender Distal sensation intact Capillary refill brisk Assessment & Plan Assessment & Plan (1) Fracture of right distal radius: Code(s): S52.501A - Unspecified fracture of the lower end of right radius, initial encounter for closed fracture Category: Medical Plan 1. Status post right distal radius ORIF DOS 01/02/2025 Patient appears to be recovering postoperatively Patient is educated typical recovery course Patient should discontinue use of the Velcro wrist splint at this time Patient is advised that I feel she is doing quite well considering the degree of stiffness that she had and the duration of time that this stiffness was present after surgery, and I feel that the recovery she has made is quite good, and then she should continue with these exercises that OT has given her in order to further in her range of motion and strength Patient is educated she may return to normal activity as tolerated Continue with exercises given by OT at home, as range of motion is improving significantly and we will only continue to improve Patient was amenable to this plan Follow-up as needed Coding Level of Care Code Est Pt Level 3 (74210) Diagnoses Fracture of right distal radius S52.501A
[2025-07-28 11:26] VITALS: BMI 19.8
--- OUTSIDE RECORDS SUMMARY | 2025-07-28 13:15 | XMS_ITS | Encounter Summary ---
Author Organization [employer] Address [address] [place] [address] 7t [place] [address] Care Team Providers Care Return Agent Name Role Phone Umm Coley MD Primary Care Provider + West Meier RN Unavailable [phone] West Meier RN Unavailable [phone] Shannan Covington Unavailable Encounter Details Date Type Department Care Team (Latest Contact Info) Description 03/13/2022 Abstract [facility] CONVERSIONS Dental, Provider, DDS Social History Tobacco [...] Description 08/10/2025 11:45 AM EDT Office Visit [facility] MEDICINE [address] [place] [address] [phone] Umm Coley MD [address] [place] [address] [phone] 10/13/2025 11:45 AM EST Office Visit [facility] MEDICINE [address] [place] [address] [phone] Darrell Myers MD [address] [place] [address] [phone] documented as of this encounter Visit Diagnoses Not on filedocumented in this encounter Care Teams Return Agent Relationship Specialty Start Date End Date Umm Coley MD [address] [place] [address] [phone] PCP - General Family Medicine 10/31/16 West Meier, RN [address] [place] [address] Cryptologic LinguistTelecommunications Line Mechanic 01/12/25 04/25/25 West Meier RN [address] [place] [address] Registered Nurse Family Medicine 05/10/25 Shannan Covington 06/08/25 06/08/25 Eva Nunez Cryptologic Linguist 04/05/24 07/06/24 [facility] 05/11/24 11/17/24 [facility] 11/14/24 01/17/25 [employer] 12/08/24 [facility] 05/18/25 documented as of this encounter
--- OUTSIDE RECORDS SUMMARY | 2025-07-28 13:15 | XMS_ITS | Encounter Summary ---
Author Organization [employer] Address [address] [place] [address] 7t [place] [address] Care Team Providers Care Iron Guardrail Installer Name Role Phone Umm Coley MD Primary Care Provider + West Meier RN Unavailable [phone] West Meier RN Unavailable [phone] Shannan Covington Unavailable Encounter Details Date Type Department Care Team (Latest Contact Info) Description 09/16/2022 Abstract [facility] CONVERSIONS Dental, Provider, DDS Social [...] Description 08/10/2025 11:45 AM EDT Office Visit [facility] MEDICINE [address] [place] [address] [phone] Umm Coley MD [address] [place] [address] [phone] 10/13/2025 11:45 AM EST Office Visit [facility] MEDICINE [address] [place] [address] [phone] Darrell Myers MD [address] [place] [address] [phone] documented as of this encounter Visit Diagnoses Not on filedocumented in this encounter Care Teams Iron Guardrail Installer Relationship Specialty Start Date End Date Umm Coley MD [address] [place] [address] PCP - General Family Medicine 10/31/16 West Meier, RN [address] [place] [address] Dietary AidStraight Cutter 01/12/25 04/25/25 West Meier RN [address] [place] [address] Registered Nurse Family Medicine 05/10/25 Shannan Covington 06/08/25 06/08/25 Eva Nunez Dietary Aid 04/05/24 07/06/24 [facility] 05/11/24 11/17/24 [facility] 11/14/24 01/17/25 [employer] 12/08/24 [facility] 05/18/25 documented as of this encounter
--- OUTSIDE RECORDS SUMMARY | 2025-07-28 13:15 | XMS_ITS | Encounter Summary ---
Author Organization [employer] Address [address] [facility] 7t [place] [address] Care Team Providers Care Hand I Tube Bender Name Role Phone Umm Coley MD Primary Care Provider + West Meier RN Unavailable [phone] Reason for Visit * Reason Onset Date Comments Med Refill 06/28/2025 Encounter Details Date Type Department Care Team (Late st Contact Info) Description 06/28/2025 Telephone [facility] MEDICINE [address] [place], [place] [phone] Umm Coley MD [address] [place], [place] [phone] Med Refill Social History Tobacco Use Types [...] MCG (1999) capsule To be sent to: [facility]/pharmacy #[id number] KYLIE ID - [address] [place] [address] documented in this encounter Plan of Treatment Upcoming Encounters Date Type Department Care Team ([facility] st Contact Info) Description 08/10/2025 11:45 AM EDT Office Visit [facility] MEDICINE [address] [place] [address] Umm Coley MD [address] [place] [phone] 10/13/2025 11:45 AM EST Office Visit [facility] MEDICINE [address] [place] [address] [phone] Darrell Myers MD [address] [place] [address] [phone] documented as of this encounter Visit Diagnoses Not on filedocumented in this encounter Additional Health Concerns Assessment Noted Time PHQ-9 Depression Total Score: 10 024 9:17 AM EDT documented as of this encounter Care Teams Hand I Tube Bender Relationship Specialty Start Date End Date Umm Coley MD [address] [place] [address] 9[address] PCP - General Family Medicine 10/31/16 West Meier, BEBA [address] [place] [address] 92[address] Registered Nurse Family Medicine 05/10/25 [facility] 05/18/25 documented as of this encounter
--- OUTSIDE RECORDS SUMMARY | 2025-07-28 13:15 | XMS_ITS | Encounter Summary ---
Author Organization [employer] Address [address] [facility] 7t [place] [address] Care Team Providers Care Manager Cath Lab Name Role Phone Umm Coley MD Primary Care Provider + West Meier RN Unavailable [phone] Reason for Visit * Reason Comments Med Refill Encounter Details Date Type Department Care Team (Late st Contact Info) Description 07/06/2025 Refill [facility] MEDICINE [address] [place], [place] [phone] Umm Coley MD [address] [place], [place] [phone] Social History Tobacco Use Types Packs/Day Years [...] Description 08/10/2025 11:45 AM EDT Office Visit [facility] MEDICINE [address] [place] [phone] Umm Coley MD [address] [place] [phone] 10/13/2025 11:45 AM EST Office Visit [facility] MEDICINE [address] [place] [address] Darrell Myers MD [address] [place] [address] documented as of this encounter Visit Diagnoses Not on filedocumented in this encounter Additional Health Concerns Assessment Noted Time PHQ-9 Depression Total Score: 10 024 9:17 AM EDT documented as of this encounter Care Teams Manager Cath Lab Relationship Specialty Start Date End Date Umm Coley MD [address] [place] [address] PCP - General Family Medicine 10/31/16 West Meier, BEBA [address] [place] [address] Registered Nurse Family Medicine 05/10/25 [facility] 05/18/25 documented as of this encounter
--- OUTSIDE RECORDS SUMMARY | 2025-07-28 13:15 | XMS_ITS | Encounter Summary ---
Author Organization [employer] Address [address] [place] [address] 7t [place] [address] Care Team Providers Care Motor Expert Name Role Phone Umm Coley MD Primary Care Provider + West Meier RN Unavailable [phone] Reason for Visit * Reason Onset Date Comments Appointment Request 07/19/2025 Encounter Details Date Type Department Care Team ([facility] st Contact Info) Description 07/19/2025 Telephone [facility] MEDICINE 230 [place], [place] [phone] Umm Coley MD 230 [place], [place] [phone] Appointment Request Social History Tobacco Use Types [...] encounter Miscellaneous Notes * Telephone Encounter - Rusty Dotson - 07/19/2025 9:52 AM EDT Pt looking to schedule Derm visit documented in this encounter Plan of Treatment Upcoming Encounters Date Type Department Care Team (Late st Contact Info) Description 08/10/2025 11:45 AM EDT Office Visit [facility] MEDICINE [address] [place] [address] Umm Coley MD 230 [place] [address] 10/13/2025 11:45 AM EST Office Visit [facility] MEDICINE [address] [place] [address] [phone] Darrell Myers MD [address] [place] [address] [phone] documented as of this encounter Visit Diagnoses Not on filedocumented in this encounter Additional Health Concerns Assessment Noted Time PHQ-9 Depression Total Score: 18 025 12:18 PM EDT documented as of this encounter Care Teams Motor Expert Relationship Specialty Start Date End Date Umm Coley MD [address] [place] [address] [phone] PCP - General Family Medicine 10/31/16 West Meier RN [address] [place] [address] Registered Nurse Family Medicine 05/10/25 [facility] 05/18/25 documented as of this encounter
--- OUTSIDE RECORDS SUMMARY | 2025-07-28 13:15 | XMS_ITS | Encounter Summary ---
Author Organization [employer] Address [address] [place] [address] 7t [place] [address] Care Team Providers Care Computer Patternmaker Name Role Phone Umm Coley MD Primary Care Provider + West Meier RN Unavailable [phone] West Meier RN Unavailable [phone] Shannan Covington Unavailable Encounter Details Date Type Department Care Team (Late st Contact Info) Description 11/03/2022 Orders Only [facility] MEDICINE [address] [place], [place] [phone] Umm Coley MD [address] [place], [place] [phone] Osteopenia after menopause (Primary Dx) Social History [...] Description 08/10/2025 11:45 AM EDT Office Visit [address] [phone] Umm Coley MD [address] [place] [phone] 10/13/2025 11:45 AM EST Office Visit [address] [phone] Darrell Myers MD [address] [place] [address] [phone] Scheduled Orders Name Type Priority Associated Diagnoses Orde r Schedule Vitamin D, 25-Hydroxy, Total, Immunoassay Lab Routine Osteopenia after menopause Expected: 11/03/2022 (Approximate), Expires: 11/03/2023 PTH, Intact (ICMA) And Ionized Calcium Lab Routine Osteopenia after menopause Expected: 11/03/2022 (Approximate), Expires: 11/03/2023 documented as of this encounter Visit Diagnoses Diagnosis Osteopenia after menopause- Primary documented in this encounter Care Teams Computer Patternmaker Relationship Specialty Start Date End Date Umm Coley MD [address] [place] [address] PCP - General Family Medicine 10/31/16 West Meier RN [address] [place], [place] [phone] Agricultural Extension EducatorLocum Tenens Hospitalist 01/12/25 04/25/25 West Meier, RN [address] [place], [place] [phone] Registered Nurse Family Medicine 05/10/25 Shannan Covington 06/08/25 06/08/25 Eva Nunez Agricultural Extension Educator 04/05/24 07/06/24 [facility] 05/11/24 11/17/24 [facility] 11/14/24 01/17/25 [employer] 12/08/24 [facility] 05/18/25 documented as of this encounter
--- OUTSIDE RECORDS SUMMARY | 2025-07-28 13:15 | XMS_ITS | Encounter Summary ---
Author Organization [employer] Address [address] [place] [address] 7t [place] [address] Care Team Providers Care Unemployment Benefits Claims Taker Name Role Phone Umm Coley MD Primary Care Provider + West Meier RN Unavailable [phone] West Meier RN Unavailable [phone] Shannan Covington Unavailable Encounter Details Date Type Department Care Team (Late st Contact Info) Description 09/24/2022 Abstract [facility] ADULT DENTAL [address] [place], [place] [phone] Dental, Provider, DDS Social History Tobacco Use [...] Office Visit [facility] MEDICINE [address] [place] [address] [phone] Umm Coley MD 230 [place] [address] 10/13/2025 11:45 AM EST Office Visit [facility] MEDICINE [address] [place] [address] [phone] Darrell Myers MD [address] [place] [address] documented as of this encounter Procedures Procedure [...] on filedocumented in this encounter Care Teams Unemployment Benefits Claims Taker Relationship Specialty Start Date End Date Umm Coley MD [address] [place] [address] PCP - General Family Medicine 10/31/16 West Meier RN [address] [place] [address] Director Of InvestigationsResearch Archaeologist 01/12/25 04/25/25 West Meier RN [address] [place] [address] Registered Nurse Family Medicine 05/10/25 Shannan Covington 06/08/25 06/08/25 Eva Nunez Director Of Investigations 04/05/24 07/06/24 [facility] 05/11/24 11/17/24 [facility] 11/14/24 01/17/25 [employer] 12/08/24 [facility] 05/18/25 documented as of this encounter
--- OUTSIDE RECORDS SUMMARY | 2025-07-28 13:15 | XMS_ITS | Encounter Summary ---
Author Organization [employer] Address [address] [facility] 7t [place] [address] Care Team Providers Care Compensation Agent Name Role Phone Umm Coley MD Primary Care Provider + West Meier RN Unavailable [phone] Reason for Visit * Reason Onset Date Comments form update 06/22/2025 Encounter Details Date Type Department Care Team ([facility] st Contact Info) Description 06/22/[address] [facility] MEDICINE 230 [place], [place] [phone] Umm Coley MD 230 [place], [place] [phone] form update Social History Tobacco Use Types [...] 10:42 AM EDT Tc from Yahir at [facility] requesting update on form faxed over for pt plan of care Contact Yahir at [phone] documented in this encounter Plan of Treatment Upcoming Encounters Date Type Department Care Team ([facility] st Contact Info) Description 08/10/2025 11:45 AM EDT Office Visit [facility] MEDICINE [address] [place] [address] Umm Coley MD [address] [place] [address] [phone] 10/13/2025 11:45 AM EST Office Visit [facility] MEDICINE [address] [place] [address] [phone] Darrell Myers MD [address] [place] [address] [phone] documented as of this encounter Visit Diagnoses Not on filedocumented in this encounter Additional Health Concerns Assessment Noted Time PHQ-9 Depression Total Score: 10 024 9:17 AM EDT documented as of this encounter Care Teams Compensation Agent Relationship Specialty Start Date End Date Umm Coley MD [address] [place] [address] [phone] PCP - General Family Medicine 10/31/16 West Meier, BEBA [address] [place] [address] Registered Nurse Family Medicine 05/10/25 [facility] 05/18/25 documented as of this encounter
--- OUTSIDE RECORDS SUMMARY | 2025-07-28 13:16 | XMS_ITS | Encounter Summary ---
Author Organization [employer] Address [address] [facility] 7t [place] [address] Care Team Providers Care Building Official Name Role Phone Umm Coley MD Primary Care Provider + West Meier RN Unavailable [phone] West Meier RN Unavailable [phone] Shannan Covington Unavailable Reason for Visit * Reason Onset Date Comments Appointment 02/24/2023 Encounter Details Date Type Department Care Team (Late st Contact Info) Description 02/24/2023 Telephone [facility] ADULT DENTAL 230 [place] [address] Johnny Gonzalez, WILIAN [address] [place], [place] [phone] Appointment Social History Tobacco Use Types Packs/Day [...] Description 08/10/2025 11:45 AM EDT Office Visit [facility] MEDICINE [address] [place] [address] Umm Coley MD [address] [place] [address] 10/13/2025 11:45 AM EST Office Visit [facility] MEDICINE [address] [place] [address] Darrell Myers MD [address] [place] [address] documented as of this encounter Visit Diagnoses Not on filedocumented in this encounter Care Teams Building Official Relationship Specialty Start Date End Date Umm Coley MD [address] [place] [address] PCP - General Family Medicine 10/31/16 West Meier RN [address] [place] [address] Senior Network EngineerSpindle Frame Carver 01/12/25 04/25/25 West Meier RN [address] [place] [address] Registered Nurse Family Medicine 05/10/25 Shannan Covington 06/08/25 06/08/25 Eva Nunez Senior Network Engineer 04/05/24 07/06/24 [facility] 05/11/24 11/17/24 [facility] 11/14/24 01/17/25 [employer] 12/08/24 [facility] 05/18/25 documented as of this encounter
--- OUTSIDE RECORDS SUMMARY | 2025-07-28 13:16 | XMS_ITS | Encounter Summary ---
Author Organization [employer] [facility] Address [address] [place] [address] 7t [place] [address] Care Team Providers Care Violin Teacher Name Role Phone Umm Coley MD Primary Care Provider + West Meier RN Unavailable [phone] West Meier RN Unavailable [phone] Shannan Covington Unavailable Reason for Visit * Reason Comments Med Refill Encounter Details Date Type Department Care Team (Late st Contact Info) Description 08/01/2023 Refill [facility] MEDICINE [address] [place], [place] [phone] Umm Coley MD [address] [place], [place] [phone] Social History Tobacco Use Types Packs/Day Years [...] [facility] [address] [place] [address] Umm Coley MD [address] [place] [address] 10/13/2025 11:45 AM EST Office Visit [facility] [address] [place] [address] Darrell Myers MD [address] [place], [place] [phone] documented as of this encounter Visit Diagnoses Not on filedocumented in this encounter Additional Health Concerns Assessment Noted Time PHQ-9 Depression Total Score: 12 023 1:58 PM EDT documented as of this encounter Care Teams Violin Teacher Relationship Specialty Start Date End Date Umm Coley MD [address] [place] [address] [phone] PCP - General Family Medicine 10/31/16 West Meier, RN [address] [place] [address] Adobe LayerEngineering Instructor 01/12/25 04/25/25 West Meier, RN [address] [place] [address] Registered Nurse Family Medicine 05/10/25 Shannan Covington 06/08/25 06/08/25 Eva Nunez [employer] 04/05/24 07/06/24 [facility] 05/11/24 11/17/24 [facility] 11/14/24 01/17/25 [employer] 12/08/24 [facility] 05/18/25 documented as of this encounter
--- OUTSIDE RECORDS SUMMARY | 2025-07-28 13:16 | XMS_ITS | Encounter Summary ---
Author Organization [employer] Address [address] [place] [address] 7t [place] [address] Care Team Providers Care Finish Remover Name Role Phone Umm Coley MD Primary Care Provider + West Meier RN Unavailable [phone] West Meier RN Unavailable [phone] Shannan Covington Unavailable Encounter Details Date Type Department Care Team (Latest Contact Info) Description 11/23/[address] [facility] CONVERSIONS Dental, Provider, DDS Social History [...] 08/10/2025 11:45 AM EDT Office Visit [facility] MED[facility] [address] [place] [address] [phone] Umm Coley MD [address] [place] [address] [phone] 10/13/2025 11:45 AM EST Office Visit [facility] [address] [place] [address] [phone] Darrell Myers MD [address] [place] [address] [phone] documented as of this encounter Visit Diagnoses Not on filedocumented in this encounter Care Teams Finish Remover Relationship Specialty Start Date End Date Umm Coley MD [address] [place] [address] PCP - General Family Medicine 10/31/16 West Meier, RN 505 [place] [address] Arc TrimmerWax Pumper 01/12/25 04/25/25 West Meier RN 505 [place] [address] Registered Nurse Family Medicine 05/10/25 Shannan Covington 06/08/25 06/08/25 Eva Nunez Arc Trimmer 04/05/24 07/06/24 [facility] 05/11/24 11/17/24 [facility] 11/14/24 01/17/25 [employer] 12/08/24 [facility] 05/18/25 documented as of this encounter
--- OUTSIDE RECORDS SUMMARY | 2025-07-28 13:16 | XMS_ITS | Encounter Summary ---
Author Organization [employer] Address [address] [place] [address] 7t [place] [address] Care Team Providers Care Chief Engineer Waterworks Name Role Phone Umm Coley MD Primary Care Provider + West Meier RN Unavailable [phone] West Meier RN Unavailable [phone] Shannan Covington Unavailable Reason for Visit * Reason Onset Date Comments pre med prior to dental treatment 08/23/2024 Encounter Details Date Type Department Care Team ([facility] st Contact Info) Description 08/23/2024 Telephone [facility] ADULT DENTAL [address] [place], [place] [phone] Johnny Gonzalez DMD 505 [place], [place] [phone] pre med prior to dental treatment Social [...] I also spoke with Nina in the commercial front load driver with a run through of what was happening with the patient and she stated she would also send something to provider for clarificationDR documented in this encounter Plan of Treatment Upcoming Encounters Date Type Department Care Team (Late st Contact Info) Description 08/10/2025 11:45 AM EDT Office Visit [facility] MED[facility] [address] [facility] [place] [address] Umm Coley MD [address] [place] [address] 10/13/2025 11:45 AM EST Office Visit [facility] [place] [address] Darrell Myers MD [address] [place] [address] documented as of this encounter Visit Diagnoses Not on filedocumented in this encounter Additional Health Concerns Assessment Noted Time PHQ-9 Depression Total Score: 024 9:17 AM EDT documented as of this encounter Care Teams Chief Engineer Waterworks Relationship Specialty Start Date End Date Umm Coley MD [facility] [place] [address] PCP - General Family Medicine 10/31/16 West Meier RN 505 [facility] [place] [address] Radio ProducerCurriculum Facilitator 01/12/25 04/25/25 West Meier, RN [address] [facility] [place] [address] Registered Nurse Family Medicine 05/10/25 Shannan Covington 06/08/25 06/08/25 [facility] 05/11/24 11/17/24 [facility] 11/14/24 01/17/25 [employer] 12/08/24 [facility] 05/18/25 documented as of this encounter
--- OUTSIDE RECORDS SUMMARY | 2025-07-28 13:16 | XMS_ITS | Encounter Summary ---
Author Organization [email or web address] Address [address] [place] [address] 7t [place] [address] Care Team Providers Care Line Rider Name Role Phone Umm Coley MD Primary Care Provider + West Meier RN Unavailable [phone] West Meier RN Unavailable [phone] Shannan Covington Unavailable Reason for Visit * Reason Onset Date Comments Appointment 06/15/2023 Encounter Details Date Type Department Care Team (Late st Contact Info) Description 06/15/2023 Telephone [facility] ADULT DENTAL [address] [place] [address] Johnny Gonzalez, WILIAN [address] [place], [place] [phone] Appointment Social History Tobacco Use Types Packs/Day [...] Description 08/10/2025 11:45 AM EDT Office Visit [facility] MEDICINE [address] [place] [address] Umm Coley MD [address] [place] [address] 10/13/2025 11:45 AM EST Office Visit [address] [address] Darrell Myers MD [address] [place] [address] documented as of this encounter Visit Diagnoses Not on filedocumented in this encounter Additional Health Concerns Assessment Noted Time PHQ-9 Depression Total Score: 12 023 1:58 PM EDT documented as of this encounter Care Teams Line Rider Relationship Specialty Start Date End Date Umm Coley MD 230 [place] [address] PCP - General Family Medicine 10/31/16 West Meier, BEBA 505 [place] [address] Beam Dyer Recessed VatBuffing And Polishing Wheel Repairer 01/12/25 04/25/25 West Meier, RN [address] [place] [address] Registered Nurse Family Medicine 05/10/25 Shannan Covington 06/08/25 06/08/25 Eva Nunez Beam Dyer Recessed Vat 04/05/24 07/06/24 [facility] 05/11/24 11/17/24 [facility] 11/14/24 01/17/25 Andre Phillipe 12/08/24 [facility] 05/18/25 documented as of this encounter
--- OUTSIDE RECORDS SUMMARY | 2025-07-28 13:16 | XMS_ITS | Encounter Summary ---
Author Organization [employer] Address [address] [facility] 7t [place] [address] Care Team Providers Care Diploma Maker Name Role Phone Umm Coley MD Primary Care Provider + West Meier RN Unavailable [phone] West Meier RN Unavailable [phone] Shannan Covington Unavailable Reason for Visit * Reason Comments Med Change Request Encounter Details Date Type Department Care Team (Late st Contact Info) Description 03/20/2023 Refill [facility] ADULT DENTAL 230 [place] [address] Johnny Gonzalez DMD [address] [place], [place] [phone] Social History Tobacco Use Types Packs/Day Years [...] 11:45 AM EDT Office Visit [facility] MEDICINE [address] [place] [address] Umm Coley MD 230 [place] [address] 10/13/2025 11:45 AM EST Office Visit [facility] MED[facility]INE [address] [place] [address] Darrell Myers MD 230 [place] [address] documented as of this encounter Visit Diagnoses Not on filedocumented in this encounter Care Teams Diploma Maker Relationship Specialty Start Date End Date Umm Coley MD 230 [place] [address] PCP - General Family Medicine 10/31/16 West Meier, RN 505 [place] [address] Flame Cutting Machine OperatorOptical Dispenser 01/12/25 04/25/25 West Meier, RN 505 [place] [address] Registered Nurse Family Medicine 05/10/25 Shannan Covington 06/08/25 06/08/25 Eva Nunez Flame Cutting Machine Operator 04/05/24 07/06/24 [facility] 05/11/24 11/17/24 [facility] 11/14/24 01/17/25 [employer] 12/08/24 [facility] 05/18/25 documented as of this encounter
--- OUTSIDE RECORDS SUMMARY | 2025-07-28 13:16 | XMS_ITS | Encounter Summary ---
Author Organization [employer] Address [address] [place] [address] 7t [place] [address] Care Team Providers Care Food Services Coordinator Name Role Phone Umm Coley MD Primary Care Provider + West Meier RN Unavailable [phone] West Meier RN Unavailable [phone] Shannan Covington Unavailable Reason for Visit * Reason Comments Med Refill Encounter Details Date Type Department Care Team (Late st Contact Info) Description 05/21/2023 Refill [facility] MEDICINE 230 [place], [place] [phone] Umm Coley MD 230 [place], [place] [phone] Arthritis of knee Social History Tobacco Use [...] Description 08/10/2025 11:45 AM EDT Office Visit [facility] MED[facility]INE [address] [place] [address] Umm Coley MD 230 [place], [place] [phone] 10/13/2025 11:45 AM EST Office Visit [facility] MED[facility]INE [address] [place] [address] Darrell Myers MD [address] [place] [address] [phone] documented as of this encounter Visit Diagnoses Diagnosis Arthritis of knee Unspecified arthropathy, lower leg documented in this encounter Additional Health Concerns Assessment Noted Time PHQ-9 Depression Total Score: 12 023 1:58 PM EDT documented as of this encounter Care Teams Food Services Coordinator Relationship Specialty Start Date End Date Umm Coley MD [address] [place] [address] PCP - General Family Medicine 10/31/16 West Meier, RN 505 [place] [address] Ballet TeacherScientific Programmer 01/12/25 04/25/25 West Meier, RN [address] [place] [address] Registered Nurse Family Medicine 05/10/25 Shannan Covington 06/08/25 06/08/25 Eva Nunez Ballet Teacher 04/05/24 07/06/24 [facility] 05/11/24 11/17/24 [facility] 11/14/24 01/17/25 [employer] 12/08/24 [facility] 05/18/25 documented as of this encounter
--- OUTSIDE RECORDS SUMMARY | 2025-07-28 13:16 | XMS_ITS ---
Author Organization [employer] Address [address] [place] [address] 7t [place] [address] Care Team Providers Care Supervisor Knitting Name Role Phone Umm Coley MD Primary Care Provider + West Meier RN Unavailable [phone] Status:Enrolled (Active) Start date:05/10/2025 Enrollment date:05/10/2025 Enrollment reason:Referred by provider Overview Lost contact on [place]. Re-opening program per PCP but now on GANESH. Case Team Name Relationship Phone West Meier RN(Responsible Staff) Registered N [facility] [phone] Continued Care and Services Coordination
--- OUTSIDE RECORDS SUMMARY | 2025-07-28 13:16 | XMS_ITS | Encounter Summary ---
Author Organization [facility] Address [address] [place] [address] 7t [place] [address] Care Team Providers Care Mill Representative Name Role Phone Umm Coley MD Primary Care Provider + West Meier RN Unavailable [phone] West Meier RN Unavailable [phone] Shannan Covington Unavailable Reason for Visit * Reason Comments Med Refill Encounter Details Date Type Department Care Team (Late st Contact Info) Description 02/05/2023 Refill [facility] MED[facility] 230 [place], [place] [phone] Umm Coley MD 230 [place], [place] [phone] Arthritis of knee Social History Tobacco Use [...] Visit [facility] MEDICINE [address] [place] [address] Umm Coley MD 230 [place] [address] 10/13/2025 11:45 AM EST Office Visit [facility] [address] [place] [address] Darrell Myers MD 230 [place] [address] documented as of this encounter Visit Diagnoses Diagnosis Arthritis of knee Unspecified arthropathy, lower leg documented in this encounter Care Teams Mill Representative Relationship Specialty Start Date End Date Umm Coley MD [address] [place] [address] PCP - General Family Medicine 10/31/16 West Meier, RN 505 [place] [address] Fruit HarvesterCorrectional Casework Specialist 01/12/25 04/25/25 West Meier, RN 505 [place] [address] Registered Nurse Family Medicine 05/10/25 Shannan Covington 06/08/25 06/08/25 Eva Nunez Fruit Harvester 04/05/24 07/06/24 [facility] 05/11/24 11/17/24 [facility] 11/14/24 01/17/25 [employer] 12/08/24 [facility] 05/18/25 documented as of this encounter
--- OUTSIDE RECORDS SUMMARY | 2025-07-28 13:16 | XMS_ITS | Encounter Summary ---
Author Organization [employer] Address [address] [facility] 7t [place] [address] Care Team Providers Care Electronics Department Manager Name Role Phone Umm Coley MD Primary Care Provider + West Meier RN Unavailable [phone] West Meier RN Unavailable [phone] Shannan Covington Unavailable Encounter Details Date Type Department Care Team (Late st Contact Info) Description 08/23/2024 Orders Only [facility] ADULT DENTAL 505 [place], [place] [phone] Johnny Gonzalez, WILIAN 505 [place], [place] [phone] Social History Tobacco Use Types Packs/Day Years [...] Description 08/10/2025 11:45 AM EDT Office Visit [facility] [address] [place] [address] Umm Coley MD [address] [place] [address] 10/13/2025 11:45 AM EST Office Visit [address] [address] Darrell Myers MD [address] [place] [address] documented as of this encounter Visit Diagnoses Not on filedocumented in this encounter Additional Health Concerns Assessment Noted Time PHQ-9 Depression Total Score: 10 024 9:17 AM EDT documented as of this encounter Care Teams Electronics Department Manager Relationship Specialty Start Date End Date Umm Coley MD [address] [place] [address] PCP - General Family Medicine 10/31/16 West Meier RN [address] [place] [address] Non Ferrous Material HandlerDonor Services Coordinator 01/12/25 04/25/25 West Meier, RN [address] [place] [address] Registered Nurse Family Medicine 05/10/25 Shannan Covington 06/08/25 06/08/25 [facility] 05/11/24 11/17/24 [facility] 11/14/24 01/17/25 [employer] 12/08/24 [facility] 05/18/25 documented as of this encounter
--- OUTSIDE RECORDS SUMMARY | 2025-07-28 13:16 | XMS_ITS | Clinical Summary ---
Author Organization [employer] Address [address] [place] [address] 7t [place] [address] Care Team Providers Care Cloth Shearer Name Role Phone Shalonda Coley MD Primary Care Provider + West Meier RN Unavailable [phone] Allergies Active Allergy Reactions Criticality Noted [...] mouth every 12 (twelve) hours. 8 Active OLANZapine (ZyPREXA) 20 MG tablet [...] TOME DOS TABLETAS POR V A ORAL TO LOS D AL ACOSTARSE CUANDO SEA NECESARIO PARA DORMIR 3 Active Senna-Time 8.6 MG tablet TOME DOS TABLETAS POR V A ORAL AL ACOSTARSE 3 Active acetaminophen (Tylenol) 500 MG tabletIndicati ons:Necrosis [...] (Norvasc) 2.5 MG tablet TOME NAIMA TABLETA LOS D 3 Active pregabalin (Lyrica) 150 MG capsule TOME NAIMA C PSULA DOS VECES AL D A FOR 30 DAYS 4 Active triamcinolone (Kenalog) 0.1 % cream Apply topically 2 times daily. PRN rash 45 g 4 Active mirtazapine (Remeron) 30 MG tablet TOME NAIMA TABLETA ORALLY BEDTIME REPLACES PRIOR DOSE OF 45 MG 4 Active cyanocobalamin (Vitamin B-12) 100 MCG tablet TOME NAIMA TABLETA TODO LOS MORIN 90 tablet 3 4 Active dicyclomine (Bentyl) 20 MG tablet TOME DOS TABLETAS POR V A ORAL CUATRO VECES AL D A 5 Active ascorbic acid (Vitamin C) 500 MG chewable tablet 1 tab po 1x/w 12 tablet 3 5 Active glucose blood (FREESTYLE LITE) test stripIndicatio ns:Neuropathy TEST 3 TIMES A WEEK 100 each 11 5 Active FreeStyle lancetsIndicat ions:Neuropath y 1 each by Other route Once per day. TEST 3 TIMES A WEEK 100 each 3 5 06/07/20 26 Active predniSONE (Deltasone) 10 MG tablet Take 2 tabs PO daily x 3 days then take 1 tab PO daily x 3 days; USE AFTER 40 MG DOSING 9 tablet 5 Active Symbicort 160-4.5 MCG/ACT inhaler TOME DOS INHALACIONES POR V A ORAL DOS VECES AL D A Active loratadine (Claritin) 10 MG tabletIndicati ons:Rash TAKE 1 TABLET BY MOUTH EVERY MORNING NEEDED FOR ALLERGIES 90 tablet 5 Active benzonatate (Tessalon Perles) 100 MG capsule Take 1 capsule (100 mg) by mouth if needed in the morning, at noon, and at bedtime for cough for up to 10 days. Do not crush or chew. 30 capsule 5 07/03/20 25 Active Problems Problem Noted Date Diagnosed Date Encounter for monitoring of patient compliance in drug treatment program 12/27/2024 Assessment & Plan (05/02/2025 3:06 PM EDT): Patient is medication administration by nurse and pharmacal location, she is aware that it may take couple of visits until new VNA is acquainted with all her medications. She will continue psych medication as per psych prescriber at [facility]. She is on Colace daily for constipation [...] regarding medication management by current VNA services ([facility]). I asked her if she wants me [...] continue f/u with mental health provider in [facility]. Dry eye 05/16/2024 Assessment & [...] referred to [facility] [place] [facility], information given to pt to schedule appointment [...] write a complaint to the landlord, building medical record administrator, and housing department. I gave them information about legal editor in the [place] [address] Will refer to medicare insurance specialist to assist with housing due to poor conditions of current apartment Pt already has a letter from counselor, will FU at next appointment Household circumstance affecting care 02/03/2023 Assessment & Plan (12/11/2023 9:49 AM EST): Pt has depression and difficulty with memory. She has a WOOD BOAT BUILDER SUPERVISOR and a VNA to manage med, pharma education. VNA can go a few times per week once a POC has been discussed and taught to pt's caregivers Assessment & Plan (04/02/2023 2:38 PM EDT): Pt continues to live in the same apartment with anxiety from recent of her neighbor. Already in contact with [facility] and team is helping her with letters for housing Assessment & Plan (02/26/2023 1:12 PM EDT): Pt lives alone, I will advise to move out to a different apartment due to increased anxiety with household circumstance Refer to [facility] Assessment & [...] EST): Pt seen psychotherapist and psychiatry at [facility], needs medication management due [...] She will continue close follow up with [facility]. I explained to patient that many of [...] Plan (02/26/2023 1:11 PM EDT): Pt seeing [facility] team every week. I counseled her to move out of that apartment. Pt is back on Lyrica no change in other medications Will refer to case management/[facility] to help her with housing situation. Pt [...] we can organize the medications. Pt and WOOD BOAT BUILDER SUPERVISOR agreed with the plan of care. POC discussed with team nurse and engineering design supervisor. Assessment & Plan (04/28/2024 3:33 PM [...] per the recent medication list requested by case investigator on March 2025, she was on BuSpar 15 mg 3 times daily, clonazepam twice daily as needed anxiety, mirtazapine 30 mg nightly, olanzapine 20 mg nightly, prazosin 4 mg nightly and sertraline 200 mg/day (See encounter under media on 03/03/2025). She will continue to follow [facility] for pharmacotherapy and continue to see her therapist Niyah Whatley regularly (ph#[phone]). At this time she feels safe at home and is able to reach out for safety both of her therapist, the crisis and I told her that she can come to walk-in clinic as needed worsening anxiety. No change in medications at this time, will call [facility] psychiatry for med reconciliation [...] (04/28/2024 5:25 PM EDT): Pt seen by [facility] clinician, continue psychotherapy every [...] she needs pharmaco education. She's followed by [facility] psych. I told her and WOOD BOAT BUILDER SUPERVISOR she needs to bring all her med bottles so we can go over her meds until the new VNA service is restarted. Her WOOD BOAT BUILDER SUPERVISOR is helping her as well as her daughter With meds for now. Pt feels safe. Will send new Rx if needed with prescription in moldovan so VNA can read it (one of the issues being that med rx were written in Hebrew and the VNA that took over didn't understand the directions). Will check with VNA service to see what current situation is, pt wants to start using a new VNA service (the one her neighbor uses, [facility] [place] based) . Hip pain 02/16/2018 Assessment & [...] or Tylenol as needed She needs a WOOD BOAT BUILDER SUPERVISOR to help her with ADLs Fibromyositis 04/15/2012 [...] 5:56 PM EDT): -Followed by [facility] - last available consult note March [...] F/u urine culture. Breast pain, right 11/09/2023 5 Assessment & Plan (12/24/2023 2:28 PM EST): Most likely muscular, her mammograms is normal and no masses are palpated. Order bl dx mammogram with right breast US FU at next appt with me. Take tylenol prn pain Pain in lower limb 02/24/2023 4 Orthopnea 02/24/2023 05/02/2025 Near syncope 12/03/2022 12/11/2023 [...] has to reschedule pharmacological stress test in [facility] dc amlodipine and flexeril and take Tylenol [...] Encounters Date Type Department Care Team Description 07/19/2025 Telephone [facility] [address] [place] [address] Shalonda Coley MD Appointment Request 07/18/2025 Orders Only [facility] External Provider, [facility] 07/14/[address] [address] Shalonda Coley MD Med Refill 07/12/2025 11:00 AM EDT Office Visit [address] [address] Shalonda Coley MD Other specified hypotension (Primary Dx) 07/12/2025 Travel 07/11/2025 Telephone [facility] [address] [place] [address] Shalonda Coley MD chart prep 07/10/2025 Patient Outreach [address] [address] Shalonda Coley MD Care Management ([facility]- F/U call # 3) 07/06/[address] [address] Shalonda Coley MD Nurse Triage 07/06/2025 Refill [facility] [address] [place] [address] Shalonda Coley MD 06/29/2025 Telephone [facility] [address] [place] [address] Shalonda Coley MD Nurse Triage 06/28/2025 Telephone [facility] [address] [place] [address] Shalonda Coley MD Med Refill 06/28/2025 Refill [facility] [address] [place] [address] Shalonda Coley MD Rash 06/26/[address] [address] Shalonda Coley MD letter 06/23/2025 11:45 AM EDT Office Visit [address] [address] Zara Johnson DO Moderate persistent asthma with acute exacerbation (Primary Dx); Pain of finger of left hand 06/23/2025 Travel 06/22/2025 Telephone [facility] [address] [place] [address] Shalonda Coley MD form update 06/22/[address] [address] Shalonda Coley MD Chart Prep 06/20/[address] [address] Shalonda Coley MD ER Follow-up 06/19/[address] [address] Shalonda Coley MD Nurse Triage 06/08/2025 Patient Outreach [address] [address] Shalonda Coley MD Care Management (C3CM- F/U call # 2) 06/07/2025 Refill [facility] [address] [place] [address] Shalonda Coley MD Neuropathy 06/06/2025 1:00 PM EDT Office Visit [facility] [address] [place] [address] [facility] Dental calculus (Primary Dx) 05/31/[address] [address] Shalonda Coley MD Appointment Request 05/25/2025 Patient Outreach [address] [address] Shalonda Coley MD Care Coordination ([facility] Shannan Covington telelphone call outreach/) 05/22/2025 Patient Outreach [address] [address] Shalonda Coley MD Care Management ([facility]- F/U call # 1) 05/10/2025 Patient Outreach [address] [address] Shalonda Coley MD Care Management ([facility]- re-open program) 05/04/[address] [address] Shalonda Coley MD fyi 05/04/[address] [address] Shalonda Coley MD Care Management ([facility]- VNA referral) 05/02/2025 10:30 AM EDT Office Visit [address] [address] Shalonda Coley MD 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) (Primary Dx); Fibromyalgia; Encounter for monitoring of patient compliance in drug treatment program; Adhesive capsulitis of shoulder, unspecified laterality 05/02/[address] [address] Shalonda Coley MD 05/02/2025 Travel 05/01/[address] [phone] Shalonda Coley MD Chart Prep from Last 3 Months Immunizations Immunization Administration [...] the past 12 months, has t he [employer], gas, oil or water [employer] threatened to shut off services in your [...] 08/10/2025 11:45 AM EDT Office Visit [facility] [address] [place], [place] [phone] Shalonda Coley MD [address] [place], [place] [phone] 10/13/2025 11:45 AM EST Office Visit [facility] [address] [place], [place] [phone] Darrell Myers MD [address] [place], [place] [phone] Health Maintenance Due Date Last Done Comments [...] PM EDT Narrative 07/18/2025 2:30 PM EDT [address] [address] XRay Report Signed Patient: Diana Mcpherson MR#: [id number] : 1965 Acct:[id number] Age/Sex: 60 / F ADM Date: 07/18/25 Loc: HOOLAYINKA Attending Dr: Zee Palma ANP-C Ordering Physician: Zee Palma Date of Service: 07/18/25 Procedure(s): XR abdomen min 2V Accession Number(s): [id number] cc: MinervaZee MARICRUZ; Shalonda Coley MD Reason for Exam: R10.9 [...] 07/18/25 1427 DD/ 1400 TD/TT: 07/18/25 1411 Aircraft Assembler: Procedure Note Donotuseinterpreter, Image - 07/18/[address] [address] XRay Report Signed Patient: Diana Mcpherson LMR#: [id number] : 1965Acct:[id number] Age/Sex: 60 / FADM Date: 07/18/25 Loc: HO.XRAY Attending Dr: Zee ALCANTARA Ordering Physician: Zee Palma Date of Service: 07/18/25 Procedure(s): XR abdomen min 2V Accession Number(s): [id number] cc: Zee Palma; Shalonda Coley MD Reason [...] 07/18/25 1427 DD/ 1400 TD/TT: 07/18/25 1411 Aircraft Assembler: [facility] External Provider IMG XR PROCEDURES Edited Result - Final * XR Thoracic Spine 2 Views (07/18/2025 1:56 PM EDT) Anatomical Region Laterality Modality Spine, T-spine Radiographic Kyleigh ging 07/18/2025 1:56 PM EDT Narrative 07/18/2025 2:18 PM EDT [address] [address] XRay Report Signed Patient: Diana Mcpherson MR#: [id number] : 1965 Acct:[id number] Age/Sex: 60 / F ADM Date: 07/18/25 Loc: HOMarkXRAY Attending Dr: Zee ALCANTARA Ordering Physician: Zee Palma Date of Service: 07/18/25 Procedure(s): XR thoracic spine 2V Accession Number(s): [id number] cc: Zee Palma; Shalonda Coley MD Reason [...] 07/18/25 1414 DD/ 1356 TD/TT: 07/18/25 1411 Aircraft Assembler: Procedure Note Donotuseinterpreter, Image - 07/18/[address] [address] XRay Report Signed Patient: Diana Mcpherson LMR#: M [id number] : 1965Acct:[id number] Age/Sex: 60 / FADM Date: 07/18/25 Loc: HOOLAYINKA Attending Dr: Zee ALCANTARA Ordering Physician: Zee Palma Date of Service: 07/18/25 Procedure(s): XR thoracic spine 2V Accession Number(s): [id number] cc: Zee Palma; Shalonda Coley MD Reason [...] 07/18/25 1414 DD/ 1356 TD/TT: 07/18/25 1411 Aircraft Assembler: [facility] External Provider IMG XR PROCEDURES Edited Result - Final * XR Ribs 2 Views Right (07/18/2025 1:50 PM EDT) Anatomical Region Laterality Modality Rib, Abdomen Right Radiographic Kyleigh ging 07/18/2025 1:50 PM EDT Narrative 07/18/2025 2:19 PM EDT [place] [address] XRay Report Signed Patient: Diana Mcpherson MR#: M [id number] : 1965 Acct:[id number] Age/Sex: 60 / F ADM Date: 07/18/25 Loc: MERVAT Attending Dr: Zee ALCANTARA Ordering Physician: Zee Palma Date of Service: 07/18/25 Procedure(s): XR ribs RT 2V Accession Number(s): [id number] cc: Zee Palma; Shalonda Coley MD Reason [...] 07/18/25 1415 DD/ 1350 TD/TT: 07/18/25 1412 Aircraft Assembler: Procedure Note Donotuseinterpreter, Image - 07/18/2025 [place] [address] XRay Report Signed Patient: Diana Mcpherson LMR#: M [id number] : 1965Acct:[id number] Age/Sex: 60 / FADM Date: 07/18/25 Loc: MERVAT Attending Dr: Zee ALCANTARA Ordering Physician: Zee Palma Date of Service: 07/18/25 Procedure(s): XR ribs RT 2V Accession Number(s): [id number] cc: Zee Palma; Shalonda Coley MD Reason [...] 07/18/25 1415 DD/ 1350 TD/TT: 07/18/25 1412 Aircraft Assembler: us [facility] External Provider IMG XR PROCEDURES Edited Result - Final * Urinalysis w/reflex microscopic (07/18/2025 1:33 PM EDT) Color Urine Yellow [facility] Appearance Urine Clear [facility] PH 5.5 5.0 - 9.0 [facility] Glucose Urine UA Negative Negative mg/dL [facility] Urine Blood Negative Negative [facility] Specific [place] - Urine 1.020 1.005 - 1.025 [facility] Urine Protein Negative Neg-Trace mg/dL [facility] Urine Ketones Negative Negative mg/dL [facility] Nitrite Urine Negative Negative [facility] Leukocyte Esterase Urine Negative Negative [facility] 07/18/2025 1:33 PM EDT 07/18/2025 2:15 PM EDT Narrative [facility] - 07/18/2025 2:37 PM EDT Urine, Clean Catch Generic External Data Provider LAB URINE ORDERAB LES Final Result Performing Organization Address City/State/[facility] Co de Phone Number [facility] [address] [place] [phone] * XR Fingers 2+ Views Left (06/23/2025 12:26 PM EDT) Anatomical Region Laterality Modality Upper Extremities, Fingers Left Radio graphic Imaging 06/23/2025 12:2 6 PM EDT Narrative 06/23/2025 1:27 PM EDT [address] [address] XRay Report Signed Patient: Diana Mcpherson MR#: [id number] : 1965 Acct:[id number] Age/Sex: 60 / F ADM Date: 06/23/25 [facility]: Zara Johnson DO Ordering Physician: Zara Johnson DO Date of Service: 06/23/25 Procedure(s): XR finger LT min 2V Accession Number(s): [id number] cc: Zara Johnson DO EXAMINATION: XR FINGER, [...] 06/23/25 1324 DD/ 1226 TD/TT: 06/23/25 1310 Aircraft Assembler: Procedure Note Donotuseinterpreter, Image - 06/23/[address] [address] XRay Report Signed Patient: Diana Mcpherson LMR#: M [id number] : 1965Acct:[id number] Age/Sex: 60 / FADM Date: 06/23/25 Loc: HO.CX Attending Dr: Zara Johnson DO Ordering Physician: Zara Johnson DO Date of Service: 06/23/25 Procedure(s): XR finger LT min 2V Accession Number(s): [id number] cc: Zara Johnson DO EXAMINATION: XR FINGER, [...] 06/23/25 1324 DD/ 1226 TD/TT: 06/23/25 1310 Aircraft Assembler: Zara Johnson DO IMG XR PROCEDURES Final Resu lt * BI Mammogram Screening Tomosynthesis Bilateral (11/29/2024 8:45 AM EST) Anatomical Region Laterality Modality Breast Bilateral Mammography 11/29/2024 8:45 AM EST Narrative 12/07/2024 3:35 PM EST [facility] [address] [place] [address] Mammography Report Signed Patient: Diana Myles MR#: [id number] : 1965 Acct:[id number] Age/Sex: 59 / F ADM Date: 11/29/24 Loc: HO.MAMMO Attending Dr: Shalonda Coley MD Ordering Physician: Shalonda Coley MD Results: 2Be nign Findings Date of Service: 11/29/24 Follow Up: 1 Year From Orig inal Mammogram Procedure(s): MM tomosynthesis screening BI Accession Number(s): [id number] cc: Shalonda Coley MD EXAMINATION: MM SCREENING [...] by: Chaparrita Lyn DO 12/07/2024 03:32 PM [facility] Dictated By: Chaparrita Lyn DO Signed By: <Electronically signed by Chaparrita Lyn DO in OV> 12/07/24 1532 DD/ 0845 TD/TT: 11/29/24 0915 Aircraft Assembler: Procedure Note Donotuseinterpreter, Image - 12/07/2024 [place] [facility] [address] [place] [address] Mammography Report Signed Patient: Diana Myles LMR#: [id number] : 1965Acct:[id number] Age/Sex: 59 / FADM Date: 11/29/24 Loc: HO.MAMMO Attending Dr: Shalonda Coley MD Ordering Physician: Shalonda Coley MDResults: 2Be nign Findings Date of Service: 11/29/24Follow Up: 1 Year From Orig inal Mammogram Procedure(s): MM tomosynthesis screening BI Accession Number(s): [id number] cc: Shalonda Coley MD EXAMINATION: MM SCREENING [...] 12/07/24 1532 DD/ 0845 TD/TT: 11/29/24 0915 Aircraft Assembler: Shalonda Coley MD IMG BI PROCEDURES Edited Result - Final * (ABNORMAL) Colonoscopy (07/30/2023) Colonoscopy Abnormal( A) Normal [facility] Comment:SSL polyp Shalonda Coley MD HEALTH MAINTENANCE Final Result [facility] [address] [place] [address] [phone] * Thinprep PAP and HPV nRNA E6/E7 (10/08/2022 9:30 AM EST) Clinical Information: None given [facility] [employer] LMP: NONE GIVEN [facility] [employer] Prev. PAP: NONE GIVEN [facility] Prev. BX: NONE GIVEN [facility] SOURCE: None given [employer] Statement Of Adequacy: SATISFACTORY FOR EVALUATION Age and/or menstrual status not provided [employer] Interpretation/Re sult: [facility] Comment: Negative for intraepithelial lesion or malignancy. Atrophic pattern; predominantly parabasal cells Artistic Associate: Siria EndoMetabolic [employer]st Comment: DMM, CT(ASCP) CT screening location: [place] [address] Review Artistic Associate: [employer] Comment: MAJennifer, CT(ASCP) CT screening location: [place] [address] (Always Message) Que st [facility] Comment: EXPLANATORY NOTE: The Pap is a [...] HPV nRNA E6/E7 Not Detected Not Detected [facility] Comment: Methodology: Demand Planning Analyst-Mediated Amplification This assay detects E6/E7 viral messenger RNA (mRNA) from 14 high-risk HPV types (16,18,31,33,35,39,45,51,52,56,58,59,66,68). Cervical sources are required for HPV testing. If a vaginal source from a patient who has had a total hysterectomy with removal of cervix was submitted, please contact the testing laboratory for alternative testing options. For additional information, please refer to http://education.Olista.E-Generator/faq/CRZ536x3 (This link if provided for information/ educational purposes only.) 10/08/2022 9:30 AM EST 10/10/2022 1:07 AM EST Narrative [facility] - 10/14/2022 7:08 PM EST FASTING: UNKNOWN Shauna Matamoros CNM LAB PATHOLOGY ORDERABLES Final Result [facility] [address], [place] [address] [facility] [place] [facility] [address], [place] [address] * HIV AB/AG (04/30/2022 11:28 AM EDT) Pathologist [facility] HIV AB/AG Nonreactive Nonreactive [facility] Comment: HIV-1 p24 Ag and/or [...] of detection of this assay. The [employer] Agent Contract Clerk HIV Ag/Ab Combo assay result and [...] Result [facility] [address] from Last 3 Months or Most Recently Relevant to Health Maintenance Insurance [facility] [address] [place] [address] [place] [address] DENTAL-[facility] MEDICAID STAND ADULT [address] [place] [address] Care Teams Cloth Shearer Relationship Specialty Start Date End Date Shalonda Coley MD [address] [place] [address] PCP - General Family Medicine 10/31/16 West Meier RN [address] [place] [address] Registered Nurse Family Medicine 05/10/25 [facility] 05/18/25
--- OUTSIDE RECORDS SUMMARY | 2025-07-28 13:16 | XMS_ITS | Encounter Summary ---
Author Organization [facility] Address [address] [place] [address] 7t [place] [address] Care Team Providers Care Senior Program Analyst Name Role Phone Umm Coley MD Primary Care Provider + West Meier RN Unavailable [phone] West Meier RN Unavailable [phone] Shannan Covington Unavailable Reason for Visit * Reason Comments Med Refill Encounter Details Date Type Department Care Team (Late st Contact Info) Description 06/10/[address] [facility] [address] [place], [place] [phone] Yenny Morris MD [address] [place], [place] [phone] Rash Social History Tobacco Use Types Packs/Day [...] 11:45 AM EDT Office Visit [facility] [address] [place] [address] Umm Coley MD [address] [place] [address] 10/13/2025 11:45 AM EST Office Visit [facility] [address] [place] [address] Darrell Myers MD [address] [facility] [place] [address] documented as of this encounter Visit Diagnoses Diagnosis Rash Rash and other nonspecific skin eruption documented in this encounter Additional Health Concerns Assessment Noted Time PHQ-9 Depression Total Score: 12 023 1:58 PM EDT documented as of this encounter Care Teams Senior Program Analyst Relationship Specialty Start Date End Date Umm Coley MD [address] [place] [address] PCP - General Family Medicine 10/31/16 West Meier RN [address] [place] [address] [employer]str[employer] Farm Worker 01/12/25 04/25/25 West Meier, RN [address] [place] [address] Registered Nurse Family Medicine 05/10/25 Shannan Covington 06/08/25 06/08/25 Eva Nunez Chicken Picker 04/05/24 07/06/24 [facility] 05/11/24 11/17/24 [facility] 11/14/24 01/17/25 [facility] 12/08/24 [facility] 05/18/25 documented as of this encounter
--- OUTSIDE RECORDS SUMMARY | 2025-07-28 13:16 | XMS_ITS | Encounter Summary ---
Author Organization [employer] Address [address] [place] [address] 7t [place] [address] Care Team Providers Care Fender Mechanic Apprentice Name Role Phone Umm Coley MD Primary Care Provider + West Meier RN Unavailable [phone] West Meier RN Unavailable [phone] Shannan Covington Unavailable Encounter Details Date Type Department Care Team (Latest Contact Info) Description 11/14/2019 Abstract [facility] CONVERSIONS Dental, Provider, DDS Social [...] Description 08/10/2025 11:45 AM EDT Office Visit [facility] MEDICINE [address] [place] [address] [phone] Umm Coley MD [address] [place] [address] [phone] 10/13/2025 11:45 AM EST Office Visit [facility] MEDICINE [address] [place] [address] [phone] Darrell Myers MD [address] [place] [address] [phone] documented as of this encounter Visit Diagnoses Not on filedocumented in this encounter Care Teams Fender Mechanic Apprentice Relationship Specialty Start Date End Date Umm Coley MD [address] [place] [phone] PCP - General Family Medicine 10/31/16 West Meier, RN [address] [place] [address] Plating Tank OperatorStrategic Procurement Manager 01/12/25 04/25/25 West Meier RN [address] [place] [address] Registered Nurse Family Medicine 05/10/25 Shannan Covington 06/08/25 06/08/25 Eva Nunez Plating Tank Operator 04/05/24 07/06/24 [facility] 05/11/24 11/17/24 [facility] 11/14/24 01/17/25 [employer] 12/08/24 [facility] 05/18/25 documented as of this encounter
--- OUTSIDE RECORDS SUMMARY | 2025-07-28 13:16 | XMS_ITS | Encounter Summary ---
Author Organization [employer] Address [address] [facility] 7t [place] [address] Care Team Providers Care Pi/Senior Research Associate Name Role Phone Umm Coley MD Primary Care Provider + West Meier RN Unavailable [phone] West Meier RN Unavailable [phone] Shannan Covington Unavailable Reason for Visit * Reason Comments Med Change Request Encounter Details Date Type Department Care Team (Late st Contact Info) Description 03/20/2023 Refill [facility] ADULT DENTAL [address] [place] [address] Johnny Gonzalez DMD [address] [place], [place] [phone] Social History Tobacco Use Types Packs/Day Years [...] 11:45 AM EDT Office Visit [facility] MEDICINE [address] [place] [address] Umm Coley MD 230 [place] [address] 10/13/2025 11:45 AM EST Office Visit [facility] MEDICINE [address] [place] [address] Darrell Myers MD [address] [place] [address] documented as of this encounter Visit Diagnoses Not on filedocumented in this encounter Care Teams Pi/Senior Research Associate Relationship Specialty Start Date End Date Umm Coley MD 230 [place] [address] PCP - General Family Medicine 10/31/16 West Meier, RN [address] [place] [address] Special Delivery Mail CarrierInternet Salesperson 01/12/25 04/25/25 West Meier, RN [address] [place] [address] Registered Nurse Family Medicine 05/10/25 Shannan Covington 06/08/25 06/08/25 Eva Nunez Special Delivery Mail Carrier 04/05/24 07/06/24 [facility] 05/11/24 11/17/24 [facility] 11/14/24 01/17/25 [employer] 12/08/24 [facility] 05/18/25 documented as of this encounter
--- OUTSIDE RECORDS SUMMARY | 2025-07-28 13:16 | XMS_ITS | Encounter Summary ---
Author Organization [employer] Address [address] [place] [address] 7t [place] [address] Care Team Providers Care Business Analytics Director Name Role Phone Umm Coley MD Primary Care Provider + West Meier RN Unavailable [phone] West Meier RN Unavailable [phone] Shannan Covington Unavailable Encounter Details Date Type Department Care Team (Late st Contact Info) Description 03/05/2023 Orders Only [facility] MEDICINE [address] [place], [place] [phone] Umm Coley MD [address] [place], [place] [phone] Social History Tobacco Use Types Packs/Day Years [...] 08/10/2025 11:45 AM EDT Office Visit [facility] MEDICINE [address] [place] [address] Umm Coley MD [address] [place] [address] 10/13/2025 11:45 AM EST Office Visit [address] [address] Darrell Myers MD [address] [place] [address] documented as of this encounter Visit Diagnoses Not on filedocumented in this encounter Care Teams Business Analytics Director Relationship Specialty Start Date End Date Umm Coley MD [address] [place] [address] PCP - General Family Medicine 10/31/16 West Meier RN [address] [place] [address] Environmental Health SpecialistFinger Cobbler 01/12/25 04/25/25 West Meier RN [address] [place] [address] Registered Nurse Family Medicine 05/10/25 Shannan Covington 06/08/25 06/08/25 Eva Nunez Environmental Health Specialist 04/05/24 07/06/24 [facility] 05/11/24 11/17/24 [facility] 11/14/24 01/17/25 [employer] 12/08/24 [facility] 05/18/25 documented as of this encounter
--- OUTSIDE RECORDS SUMMARY | 2025-07-28 13:16 | XMS_ITS | Encounter Summary ---
Author Organization [employer] Address [address] [place] [address] 7t [place] [address] Care Team Providers Care Lumber Carrier Operator Name Role Phone Umm Coley MD Primary Care Provider + West Meier RN Unavailable [phone] West Meier RN Unavailable [phone] Shannan Covington Unavailable Reason for Visit * Reason Onset Date Comments appt 01/08/2024 Encounter Details Date Type Department Care Team (Late st Contact Info) Description 01/08/2024 Telephone [facility] ADULT DENTAL [address] [place], [place] [phone] Homer Strong DDS [address] [place], [place] [phone] appt Social History Tobacco Use Types Packs/Day [...] 11:45 AM EDT Office Visit [facility] MEDICINE [address] [place] [address] Umm Coley MD [address] [place] [address] 10/13/2025 11:45 AM EST Office Visit [facility] MEDICINE [address] [place] [address] Darrell Myers MD [address] [place] [address] documented as of this encounter Visit Diagnoses Not on filedocumented in this encounter Additional Health Concerns Assessment Noted Time PHQ-9 Depression Total Score: 21 024 11:31 AM EST documented as of this encounter Care Teams Lumber Carrier Operator Relationship Specialty Start Date End Date Umm Coley MD [address] [place] [address] PCP - General Family Medicine 10/31/16 West Meier, RN [address] [place] [address] Aoc Plans Intelligence Officer ChiefCity Dispatcher 01/12/25 04/25/25 West Meier RN [address] [place] [address] Registered Nurse Family Medicine 05/10/25 Shannan Covington 06/08/25 06/08/25 Eva Nunez [employer] Intelligence Officer Chief 04/05/24 07/06/24 [facility] 05/11/24 11/17/24 [facility] 11/14/24 01/17/25 [employer] 12/08/24 [facility] 05/18/25 documented as of this encounter
--- OUTSIDE RECORDS SUMMARY | 2025-07-28 13:16 | XMS_ITS | Encounter Summary ---
Author Organization [employer] Address [address] [facility] 7t [place] [address] Care Team Providers Care Prop Cutter Name Role Phone Umm Coley MD Primary Care Provider + West Meier RN Unavailable [phone] West Meier RN Unavailable [phone] Shannan Covington Unavailable Reason for Visit * Reason Onset Date Comments Appointment 03/17/2023 Encounter Details Date Type Department Care Team (Late st Contact Info) Description 03/17/2023 Telephone [facility] ADULT DENTAL [address] [place] [address] Johnny Gonzalez, WILIAN [address] [place], [place] [phone] Appointment Social History Tobacco Use Types Packs/Day [...] Description 08/10/2025 11:45 AM EDT Office Visit [facility] MEDICINE [address] [place] [address] Umm Coley MD [address] [place] [address] 10/13/2025 11:45 AM EST Office Visit [address] [address] Darrell Myers MD [address] [place] [address] documented as of this encounter Visit Diagnoses Not on filedocumented in this encounter Care Teams Prop Cutter Relationship Specialty Start Date End Date Umm Coley MD [address] [place] [address] PCP - General Family Medicine 10/31/16 West Meier RN 505 [facility] [place] [address] Nutrition AssistantIntelligence Officer Basic 01/12/25 04/25/25 West Meier RN 505 [facility] [place] [address] Registered Nurse Family Medicine 05/10/25 Shannan Covington 06/08/25 06/08/25 Eva Nunez Nutrition Assistant 04/05/24 07/06/24 [facility] 05/11/24 11/17/24 [facility] 11/14/24 01/17/25 [employer] 12/08/24 [facility] 05/18/25 documented as of this encounter
--- OUTSIDE RECORDS SUMMARY | 2025-07-28 13:16 | XMS_ITS | Encounter Summary ---
Author Organization [employer] Address [address] [place] [address] 7t [place] [address] Care Team Providers Care Subway Repair Supervisor Name Role Phone Umm Coley MD Primary Care Provider + West Meier RN Unavailable [phone] West Meier RN Unavailable [phone] Shannan Covington Unavailable Reason for Visit * Reason Onset Date Comments Dr. Gonzalez conversation PCP/cleared for tx?? Encounter Details Date Type Department Care Team ([facility] st Contact Info) Description 03/28/2025 Telephone [facility] ADULT DENTAL 505 [place], [place] [phone] Johnny Gonzalez, WILIAN [address] [place], [place] [phone] Dr. Gonzalez conversation PCP/cleared for tx?? Social [...] Send to both provider clinical support and senior front end engineer DR documented in this encounter Plan of Treatment Upcoming Encounters Date Type Department Care Team (Late st Contact Info) Description 08/10/2025 11:45 AM EDT Office Visit [facility] MEDICINE [address] [place] [address] Umm Coley MD [address] [place] [address] 10/13/2025 11:45 AM EST Office Visit [facility] MEDICINE 230 [place] [address] Darrell Myers MD [address] [place] [address] documented as of this encounter Visit Diagnoses Not on filedocumented in this encounter Additional Health Concerns Assessment Noted Time PHQ-9 Depression Total Score: 10 024 9:17 AM EDT documented as of this encounter Care Teams Subway Repair Supervisor Relationship Specialty Start Date End Date Umm Coley MD [address] [place] [address] PCP - General Family Medicine 10/31/16 West Meier RN [address] [place] [address] Electrical Project ManagerArchitectural Coating Finisher 01/12/25 04/25/25 West Meier RN [address] [place] [address] Registered Nurse Family Medicine 05/10/25 Shannan Covington 06/08/25 06/08/25 [facility] 05/18/25 documented as of this encounter
== END 2025-07-28 11:53 | disposition home or self-care (01) ==
LOC: HO.HOS 11:25
PROVIDERS: PCP Internal Medicine
DX: S52.501A Unspecified fracture of the lower end of right radius, initial encounter for closed fracture (principal)
CPT/HCPCS: 99213

== ENCOUNTER → 2025-07-28 11:24 | Outpatient (BNVA) | payer MEDICAID, SELFPAY | PROVIDERS: PCP Internal Medicine | DX: S52.501D Unspecified fracture of the lower end of right radius, subsequent encounter for closed fracture with routine healing (principal) | CPT/HCPCS: 99212 ==

== ENCOUNTER 2025-08-07 11:51 | Outpatient (REF) | payer MEDICAID, SELFPAY ==
--- NOTE | ~2025-08-07 | XR_ITS ---
EXAMINATION: X-ray bilateral hands CLINICAL INFORMATION: Pain COMPARISON: Correlation x-ray left third digit 06/23/2025, right hand and wrist 12/23/2024 TECHNIQUE: Bilateral hands each 3 views FINDINGS: Left hand: Bone demineralization. No acute fracture or dislocation. Mild narrowing of some of the interphalangeal joints. No erosions. No abnormal soft tissue calcification. Soft tissues appear unremarkable. Right hand: Bone demineralization. No acute fracture or dislocation. Plate and screw hardware projected over the distal radius. Mild joint space narrowing of some of the IP joints. No erosions seen. No abnormal soft tissue calcifications. Soft tissues appear unremarkable. XR/XR Hand Bilat min 3v IMPRESSION: Mild narrowing of some of the IP joints of bilateral hands. Electronically signed by: Tunde Corey MD 08/07/2025 01:06 PM EDT
--- NOTE | ~2025-08-07 | XR_ITS ---
EXAMINATION: X-ray bilateral knees CLINICAL INFORMATION: Chronic pain COMPARISON: X-ray 12/23/2024 TECHNIQUE: AP bilateral knees one view. Bilateral knees each 2 views. FINDINGS: Right knee: No acute fracture or dislocation. No significant joint effusion. Joint spaces appear maintained. No lytic or blastic lesions. Left knee: No acute fracture or dislocation. Small suprapatellar joint fluid. Joint spaces appear relatively maintained. No lytic or blastic lesions.. XR/XR Knee Philip 3V IMPRESSION: No acute fracture or dislocation. Electronically signed by: Tunde Corey MD 08/07/2025 12:32 PM EDT
--- OUTSIDE RECORDS SUMMARY | 2025-08-07 14:24 | XMS_ITS | Encounter Summary ---
Author Organization [employer] Address [address] [facility] 7t [place] [address] Care Team Providers Care Supervisor Pullet Farm Name Role Phone Umm Coley MD Primary Care Provider + West Meier RN Unavailable [phone] Reason for Visit * Reason Comments Med Refill Encounter Details Date Type Department Care Team (Late st Contact Info) Description 07/06/2025 Refill [facility] MEDICINE 230 [place], [place] [phone] Umm Coley MD 230 [place], [place] [phone] Social History Tobacco Use Types Packs/Day Years [...] Description 08/10/2025 11:45 AM EDT Office Visit [facility] MEDICINE [address] [place] [address] Umm Coley MD [address] [place] [address] 10/13/2025 11:45 AM EST Office Visit [facility] MEDICINE [address] [place] [address] Darrell Myers MD [address] [place] [address] documented as of this encounter Visit Diagnoses Not on filedocumented in this encounter Additional Health Concerns Assessment Noted Time PHQ-9 Depression Total Score: 10 024 9:17 AM EDT documented as of this encounter Care Teams Supervisor Pullet Farm Relationship Specialty Start Date End Date Umm Coley MD [address] [place] [address] PCP - General Family Medicine 10/31/16 West Meier, BEBA [address] [place] [address] Registered Nurse Family Medicine 05/10/25 [facility] 05/18/25 documented as of this encounter
--- OUTSIDE RECORDS SUMMARY | 2025-08-07 14:24 | XMS_ITS | Encounter Summary ---
Author Organization [employer] Address [address] [place] [address] 7t [place] [address] Care Team Providers Care Principal Cloud Architect Name Role Phone Umm Coley MD Primary Care Provider + West Meier RN Unavailable [phone] West Meier RN Unavailable [phone] Shannan Covington Unavailable Encounter Details Date Type Department Care Team (Late st Contact Info) Description 09/24/2022 Abstract [facility] ADULT DENTAL 230 [place], [place] [phone] Dental, Provider, DDS Social History Tobacco Use [...] EDT Office Visit [facility] MEDICINE [address] [place] [address] [phone] Umm Coley MD [address] [place] [address] 10/13/2025 11:45 AM EST Office Visit [facility] MEDICINE [address] [place] [address] [phone] Darrell Myers MD [address] [place] [address] documented as of this encounter Procedures Procedure [...] on filedocumented in this encounter Care Teams Principal Cloud Architect Relationship Specialty Start Date End Date Umm Coley MD [address] [place] [address] PCP - General Family Medicine 10/31/16 West Meier RN 505 [place] [address] Supervisor Paper CoatingRetail Director 01/12/25 04/25/25 West Meier RN [address] [place] [address] Registered Nurse Family Medicine 05/10/25 Shannan Covington 06/08/25 06/08/25 Eva Nunez Supervisor Paper Coating 04/05/24 07/06/24 [facility] 05/11/24 11/17/24 [facility] 11/14/24 01/17/25 [employer] 12/08/24 [facility] 05/18/25 documented as of this encounter
--- OUTSIDE RECORDS SUMMARY | 2025-08-07 14:24 | XMS_ITS | Encounter Summary ---
Author Organization [employer] [facility] Address [address] [place] [address] 7t [place] [address] Care Team Providers Care Eeg Technician Name Role Phone Umm Coley MD Primary Care Provider + West Meier RN Unavailable [phone] West Meier RN Unavailable [phone] Shannan Covington Unavailable Reason for Visit * Reason Comments Med Refill Encounter Details Date Type Department Care Team (Late st Contact Info) Description 06/10/[address] [facility] MEDICINE 230 [place], [place] [phone] Yenny Morris MD [address] [place], [place] [phone] Rash Social History Tobacco Use Types Packs/Day [...] [facility] [address] [place] [address] Umm Coley MD [address] [place] [address] 10/13/2025 11:45 AM EST Office Visit [facility] [address] [place] [address] Darrell Myers MD [address] [facility] [place] [address] documented as of this encounter Visit Diagnoses Diagnosis Rash Rash and other nonspecific skin eruption documented in this encounter Additional Health Concerns Assessment Noted Time PHQ-9 Depression Total Score: 12 023 1:58 PM EDT documented as of this encounter Care Teams Eeg Technician Relationship Specialty Start Date End Date Umm Coley MD [address] [place] [address] PCP - General Family Medicine 10/31/16 West Meier RN 505 [facility] [place] [address] Timber Harvester OperatorGas Blender 01/12/25 04/25/25 West Meier, RN 505 [place] [address] Registered Nurse Family Medicine 05/10/25 Shannan Covington 06/08/25 06/08/25 Eva Nunez Timber Harvester Operator 04/05/24 07/06/24 [facility] 05/11/24 11/17/24 [facility] 11/14/24 01/17/25 [employer] 12/08/24 [facility] 05/18/25 documented as of this encounter
--- OUTSIDE RECORDS SUMMARY | 2025-08-07 14:24 | XMS_ITS | Clinical Summary ---
Author Organization [employer] Address [address] [place] [address] 7[address] [place] [address] Care Team Providers Care [employer] Name Role Phone Shalonda Coley MD Primary Care Provider + [place] RN Unavailable [phone] Allergies Active Allergy Reactions Criticality Noted [...] 5 Active glucose blood (FREESTYLE LITE) test stripIndication s:Neuropathy TEST 3 TIMES A WEEK 100 each 11 5 Active FreeStyle lancetsIndicati ons:Neuropathy 1 each by Other route Once per [...] D A Active loratadine (Claritin) 10 MG tabletIndicatio ns:Rash TAKE 1 TABLET BY MOUTH EVERY MORNING NEEDED FOR ALLERGIES 90 tablet 5 Active Active [...] psych medication as per psych prescriber at [facility]. She is on Colace daily for [...] her on a VNA service. Will ask [facility] service to send a list of [...] continue f/u with mental health provider in [facility]. Dry eye 05/16/2024 Assessment & Plan [...] to vestibular therapy at [facility], information given to pt to [...] write a complaint to the landlord, building network administrator, and housing department. I gave them information about corporate legal assistant in the [place] Will refer to child care associate to assist with housing due to poor conditions of current apartment Pt already has a letter from counselor, will FU at next appointment Household circumstance affecting care 02/03/2023 Assessment & Plan (12/11/2023 9:49 AM EST): Pt has depression and difficulty with memory. She has a SOLAR SALES ENERGY ADVISOR and a VNA to manage med, pharma education. VNA can go a few times per week once a POC has been discussed and taught to pt's caregivers Assessment & Plan (04/02/2023 2:38 PM EDT): Pt continues to live in the same apartment with anxiety from recent of her neighbor. Already in contact with [facility] and team is helping her with letters [...] EST): Pt seen psychotherapist and psychiatry at [facility], needs medication management due to Hx [...] She will continue close follow up with [facility]. I explained to patient that [...] Plan (02/26/2023 1:11 PM EDT): Pt seeing [facility] team every week. I counseled her to move out of that apartment. Pt is back on Lyrica no change in other medications Will refer to case management/SDOH to help her with housing situation. Pt has crisis number FU with me in 4 weeks. Kidney stone 09/30/2022 Malaise 09/30/2022 Malignant neoplasm of female breast (CMS/HCC) IFG (impaired fasting glucose) 09/30/2022 Migraine with [...] we can organize the medications. Pt and SOLAR SALES ENERGY ADVISOR agreed with the plan of care. POC discussed with team nurse and mixing supervisor. Assessment & Plan (04/28/2024 3:33 PM [...] per the recent medication list requested by caser on March 2025, she was on BuSpar 15 mg 3 times daily, clonazepam twice daily as needed anxiety, mirtazapine 30 mg nightly, olanzapine 20 mg nightly, prazosin 4 mg nightly and sertraline 200 mg/day (See encounter under media on 03/03/2025). She will continue to follow [facility] for pharmacotherapy and continue to see her therapist Niyah Whatley regularly (ph#[phone]). At this time she feels safe at home and is able to reach out for safety both of her therapist, the crisis and I told her that she can come to walk-in clinic as needed worsening anxiety. No change in medications at this time, will call [facility] psychiatry for med reconciliation and VNA [...] (04/28/2024 5:25 PM EDT): Pt seen by [facility] clinician, continue psychotherapy every week. She [...] she needs pharmaco education. She's followed by [facility] psych. I told her and SOLAR SALES ENERGY ADVISOR she needs to bring all her med bottles so we can go over her meds until the new VNA service is restarted. Her SOLAR SALES ENERGY ADVISOR is helping her as well as her daughter With meds for now. Pt feels safe. Will send new Rx if needed with prescription in mexican so VNA can read it (one of the issues being that med rx were written in Portuguese and the VNA that took over didn't understand the directions). Will check with VNA service to see what current situation is, pt wants to start using a new VNA service (the one her neighbor uses, [employer], [place] based) . 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 Verruca vulgaris 04/15/2012 Ductal carcinoma of right breast ([facility]) 04/02 Overview (12/24/2023): DCIS, Grade 3 Dx 2009 [...] PM EDT): -Followed by [facility] - last available consult [...] has to reschedule pharmacological stress test in [facility] dc amlodipine and flexeril and take [...] 12/11/2023 Low vision, both eyes 09/30/20222024 Paraparesis (CMS/HCC) 09/30/20222023 Congestive heart failure 06/03/2019 Foot pain 07/12/2018 [...] Type Department Care Team Description 07/19/[address] [address] Shalonda Coley MD Appointment Request 07/18/2025 Orders Only [facility] External Provider, [facility] 07/14/[address] [address] Shalonda Coley MD Med Refill 07/12/2025 11:00 AM EDT Office Visit [address] [address] Shalonda Coley MD Other specified hypotension (Primary Dx) 07/12/2025 Travel 07/11/[address] [address] Shalonda Coley MD chart prep 07/10/2025 Patient Outreach [address] [address] Shalonda Coley MD Care Management ([facility]- F/U call # 3) 07/06/[address] [address] Shalonda Coley MD Nurse Triage 07/06/[address] [address] Shalonda Coley MD 06/29/[address] [address] Shalonda Coley MD Nurse Triage 06/28/[address] [address] Shalonda Coley MD Med Refill 06/28/[address] [address] Shalonda Coley MD Rash 06/26/[address] [address] Shalonda Coley MD letter 06/23/2025 11:45 AM EDT Office Visit [address] [address] Zara Johnson DO Moderate persistent asthma with acute exacerbation (Primary Dx); Pain of finger of left hand 06/23/2025 Travel 06/22/[address] [address] Shalonda Coley MD form update 06/22/[address] [address] Shalonda Coley MD Chart Prep 06/20/[address] [address] Shalonda Coley MD ER Follow-up 06/19/[address] [address] Shalonda Coley MD Nurse Triage 06/08/2025 Patient Outreach [address] [address] Shalonda Coley MD Care Management (C3CM- F/U call # 2) 06/07/[address] [address] Shalonda Coley MD Neuropathy 06/06/2025 1:00 PM EDT Office Visit [facility] [address] [place] [address] АлександрFosterYovani Dental calculus (Primary Dx) 05/31/[address] [address] Shalonda Coley MD Appointment Request 05/25/2025 Patient Outreach [address] [address] Shalonda Coley MD Care Coordination ([facility] Shannan Covington telelphone call outreach/) 05/22/2025 Patient Outreach [address] [phone] Shalonda Coley MD Care Management ([facility]- F/U call # 1) 05/10/2025 Patient Outreach [address] [address] Shalonda Coley MD Care Management ([facility]- re-open program) from Last 3 Months Immunizations Immunization Administration [...] Description 08/10/2025 11:45 AM EDT Office Visit [facility] [address] [place] [address] Shalonda Coley MD [address] [place] [address] 10/13/2025 11:45 AM EST Office Visit [address] [address] Darrell Myers MD [address] [place] [address] Health Maintenance Due Date Last Done Comments [...] years 1-dose series) 2023 COVID-19 Vaccine ( - season) 2025 12/04/2021, 02/06/2021, 01/09/2021 Influenza [...] Priority Date/Time Associated Diagnosis Comments XR HAND 3+ VIEWS BILATERAL Routine 08/07/2025 12:11 PM EDT XR KNEE 3 VIEWS BILATERAL Routine 08/07/2025 12:05 PM EDT XR ABDOMEN 2V+ Routine 07/18/2025 2:00 PM [...] Relevant to Health Maintenance Results * XR Hand 3+Views Bilateral (08/07/2025 12:11 PM EDT) Anatomical Region Laterality Modality Upper Extremities, Hand Bilateral Radiogra phic Imaging 08/07/2025 12:1 1 PM EDT Narrative 08/07/2025 1:08 PM EDT [address] [address] XRay Report Signed Patient: Diana Mcpherson MR#: [id number] : 1965 Acct:[id number] Age/Sex: 60 / F ADM Date: 08/07/25 Loc: HO.XRAY Attending Dr: Girish Frye MD Ordering Physician: Girish Frye MD Date of Service: 08/07/25 Procedure(s): XR Hand Bilat min 3v Accession Number(s): [id number] cc: Shalonda Coley MD; Girish Frye MD Reason for Exam: M79.643 - Pain in unspecified hand EXAMINATION: X-ray bilateral hands CLINICAL INFORMATION: Pain COMPARISON: Correlation x-ray left third digit 06/23/2025, right hand and wrist 12/23/2024 TECHNIQUE: Bilateral hands each 3 views FINDINGS: Left hand: Bone demineralization. No acute fracture or dislocation. Mild narrowing of some of the interphalangeal joints. No erosions. No abnormal soft tissue calcification. Soft tissues appear unremarkable. Right hand: Bone demineralization. No acute fracture or dislocation. Plate and screw hardware projected over the distal radius. Mild joint space narrowing of some of the IP joints. No erosions seen. No abnormal soft tissue calcifications. Soft tissues appear unremarkable. XR/XR Hand Bilat min 3v IMPRESSION: Mild narrowing of some of the IP joints of bilateral hands. Electronically signed by: Tunde Corey MD 08/07/2025 01:06 PM EDT Dictated By: Tunde Corey MD Signed By: <Electronically signed by Tunde Corey MD in OV> 08/07/25 1306 DD/ 1211 TD/TT: 08/07/25 1223 Christmas Tree [employer]: OLYA Procedure Note Donotuseinterpreter, Image - 08/07/[address] [address] XRay Report Signed Patient: Diana Mcpherson LMR#: [id number] : 1965Acct:[id number] Age/Sex: 60 / FADM Date: 08/07/25 Loc: MERVAT Attending Dr: Girish Frye MD Ordering Physician: Girish Frye MD Date of Service: 08/07/25 Procedure(s): XR Hand Bilat min 3v Accession Number(s): [id number] cc: Shalonda Coley MD; Girish Frye MD Reason for Exam: M79.643 - Pain in unspecified hand EXAMINATION: X-ray bilateral hands CLINICAL INFORMATION: Pain COMPARISON: Correlation x-ray left third digit 06/23/2025, right hand and wrist 12/23/2024 TECHNIQUE: Bilateral hands each 3 views FINDINGS: Left hand: Bone demineralization. No acute fracture or dislocation. Mild narrowing of some of the interphalangeal joints. No erosions. No abnormal soft tissue calcification. Soft tissues appear unremarkable. Right hand: Bone demineralization. No acute fracture or dislocation. Plate and screw hardware projected over the distal radius. Mild joint space narrowing of some of the IP joints. No erosions seen. No abnormal soft tissue calcifications. Soft tissues appear unremarkable. XR/XR Hand Bilat min 3v IMPRESSION: Mild narrowing of some of the IP joints of bilateral hands. Electronically signed by: Tunde Corey MD 08/07/2025 01:06 PM EDT RP Dictated By: Tunde Corey MD Signed By: <Electronically signed by Tunde Corey MD in OV> 08/07/25 1306 DD/ 1211 TD/TT: 08/07/25 1223 Christmas Tree Farmer: OLYA us [facility] External Provider IMG XR PROCEDURES Final Result * XR Knee 3 Views Bilateral (08/07/2025 12:05 PM EDT) Anatomical Region Laterality Modality Lower Extremities, Knee Bilateral Radiogra phic Imaging 08/07/2025 12:0 5 PM EDT Narrative 08/07/2025 12:34 PM EDT [address] [address] XRay Report Signed Patient: Diana Mcpherson MR#: [id number] : 1965 Acct:[id number] Age/Sex: 60 / F ADM Date: 08/07/25 Loc: HO.XRAY Attending Dr: Girish Frye MD Ordering Physician: Girish Frye MD Date of Service: 08/07/25 Procedure(s): XR Knee Philip 3V Accession Number(s): [id number] cc: Shalonda Coley MD; Girish Frye MD Reason for Exam: chronic knee pain EXAMINATION: X-ray bilateral knees CLINICAL INFORMATION: Chronic pain COMPARISON: X-ray 12/23/2024 TECHNIQUE: AP bilateral knees one view. Bilateral knees each 2 views. FINDINGS: Right knee: No acute fracture or dislocation. No significant joint effusion. Joint spaces appear maintained. No lytic or blastic lesions. Left knee: No acute fracture or dislocation. Small suprapatellar joint fluid. Joint spaces appear relatively maintained. No lytic or blastic lesions.. XR/XR Knee Philip 3V IMPRESSION: No acute fracture or dislocation. Electronically signed by: Tunde Corey MD 08/07/2025 12:32 PM EDT RP Dictated By: Tunde Corey MD Signed By: <Electronically signed by Tunde Corey MD in OV> 08/07/25 1232 DD/ 1205 TD/TT: 08/07/25 122 Christmas Tree Farmer: OLYA Procedure Note Donotuseinterpreter, Image - 08/07/2025 [place] [address] XRay Report Signed Patient: Diana Mcpherson LMR#: M [id number] : 1965Acct:[id number] Age/Sex: 60 / FADM Date: 08/07/25 Loc: HO.XRAY Attending Dr: Girish Frye MD Ordering Physician: Girish Frye MD Date of Service: 08/07/25 Procedure(s): XR Knee Philip 3V Accession Number(s): [id number] cc: Shalonda Coley MD; Girish Frye MD Reason for Exam: chronic knee pain EXAMINATION: X-ray bilateral knees CLINICAL INFORMATION: Chronic pain COMPARISON: X-ray 12/23/2024 TECHNIQUE: AP bilateral knees one view. Bilateral knees each 2 views. FINDINGS: Right knee: No acute fracture or dislocation. No significant joint effusion. Joint spaces appear maintained. No lytic or blastic lesions. Left knee: No acute fracture or dislocation. Small suprapatellar joint fluid. Joint spaces appear relatively maintained. No lytic or blastic lesions.. XR/XR Knee Philip 3V IMPRESSION: No acute fracture or dislocation. Electronically signed by: Tunde Corey MD 08/07/2025 12:32 PM EDT Dictated By: Tunde Corey MD Signed By: <Electronically signed by Tunde Corey MD in OV> 08/07/25 1232 DD/ 1205 TD/TT: 08/07/25 122 [employer] Farmer: OLYA us [facility] External Provider IMG XR PROCEDURES Final Result * XR Abdomen 2 View minimum (07/18/2025 2:00 PM EDT) Anatomical Region Laterality Modality Abdomen Radiographic Kyleigh ging 07/18/2025 2:00 PM EDT Narrative 07/18/2025 2:30 PM EDT [address] [address] XRay Report Signed Patient: Diana Mcpherson MR#: [id number] : 1965 Acct:[id number] Age/Sex: 60 / F ADM Date: 07/18/25 Loc: HO.XRAY Attending Dr: Zee ALCANTARA Ordering Physician: Zee Palma Date of Service: 07/18/25 Procedure(s): XR abdomen min 2V Accession Number(s): [id number] cc: Zee Palma; Shalonda Coley MD Reason [...] 07/18/25 1427 DD/ 1400 TD/TT: 07/18/25 1411 [employer] Tree Farmer: Procedure Note Donotjadeninterpreter, Image - 07/18/[address] [address] XRay Report Signed Patient: Diana Mcpherson LMR#: M [id number] : 1965Acct:[id number] Age/Sex: 60 / FADM Date: 07/18/25 Loc: HO.XRAY Attending Dr: Zee ALCANTARA Ordering Physician: Zee Palma Date of Service: 07/18/25 Procedure(s): XR abdomen min 2V Accession Number(s): [id number] cc: Zee Palma; Shalonda Coley MD Reason [...] 07/18/25 1427 DD/ 1400 TD/TT: 07/18/25 1411 Christmas Tree Farmer: [employer] External Provider IMG XR PROCEDURES Edited Result - Final * XR Thoracic Spine 2 Views (07/18/2025 1:56 PM EDT) Anatomical Region Laterality Modality Spine, T-spine Radiographic Kyleigh ging 07/18/2025 1:56 PM EDT Narrative 07/18/2025 2:18 PM EDT [place] [address] XRay Report Signed Patient: Diana Mcpherson MR#: M [id number] : 1965 Acct:[id number] Age/Sex: 60 / F ADM Date: 07/18/25 Loc: HO.JUSTUSAY Attending Dr: Zee ALCANTARA Ordering Physician: Zee Palma Date of Service: 07/18/25 Procedure(s): XR thoracic spine 2V Accession Number(s): [id number] cc: Zee Palma; Shalonda Coley MD Reason [...] 07/18/25 1414 DD/ 1356 TD/TT: 07/18/25 1411 Christmas Tree Farmer: Procedure Note Donotuseinterpreter, Image - 07/18/[address] [address] XRay Report Signed Patient: Diana Mcpherson LMR#: M [id number] : 1965Acct:[id number] Age/Sex: 60 / FADM Date: 07/18/25 Loc: HO.XRAY Attending Dr: Zee ALCANTARA Ordering Physician: Zee Palma Date of Service: 07/18/25 Procedure(s): XR thoracic spine 2V Accession Number(s): [id number] cc: Zee Palma; Shalonda Coley MD Reason [...] 07/18/25 1414 DD/ 1356 TD/TT: 07/18/25 1411 Christmas Tree Farmer: us [facility] External Provider IMG XR PROCEDURES Edited Result - Final * XR Ribs 2 Views Right (07/18/2025 1:50 PM EDT) Anatomical Region Laterality Modality Rib, Abdomen Right Radiographic Kyleigh ging 07/18/2025 1:50 PM EDT Narrative 07/18/2025 2:19 PM EDT [address] [address] XRay Report Signed Patient: Diana Mcpherson MR#: M [id number] : 1965 Acct:[id number] Age/Sex: 60 / F ADM Date: 07/18/25 Loc: M[facility] Attending Dr: Zee ALCANTARA Ordering Physician: Zee Palma Date of Service: 07/18/25 Procedure(s): XR ribs RT 2V Accession Number(s): [id number] cc: Zee Palma; Shalonda Coley MD Reason [...] 07/18/25 1415 DD/ 1350 TD/TT: 07/18/25 1412 [employer] Tree Farmer: Procedure Note Donotuseinterpreter, Image - 07/18/[address] [address] XRay Report Signed Patient: Diana Mcpherson LMR#: M [id number] : 1965Acct:[id number] Age/Sex: 60 / FADM Date: 07/18/25 Loc: MERVAT Attending Dr: Zee ALCANTARA Ordering Physician: Zee Palma Date of Service: 07/18/25 Procedure(s): XR ribs RT 2V Accession Number(s): [id number] cc: Zee Palma; Shalonda Coley MD Reason [...] 07/18/25 1415 DD/ 1350 TD/TT: 07/18/25 1412 Christmas Tree Farmer: [employer] External Provider IMG XR PROCEDURES Edited Result - Final * Urinalysis w/reflex microscopic (07/18/2025 1:33 PM EDT) Color Urine Yellow [facility] Appearance Urine Clear [facility] PH 5.5 5.0 - 9.0 [facility] Glucose Urine UA Negative Negative mg/dL [facility] Urine Blood Negative Negative [facility] Specific [place] - Urine 1.020 1.005 - 1.025 [facility] Urine Protein Negative Neg-Trace mg/dL [facility] Urine Ketones Negative Negative mg/dL [facility] Nitrite Urine Negative Negative [facility] Leukocyte Esterase Urine Negative Negative [facility] 07/18/2025 1:33 PM EDT 07/18/2025 2:15 PM EDT Narrative [facility] - 07/18/2025 2:37 PM EDT Urine, Clean Catch Generic External Data Provider LAB URINE ORDERAB LES Final Result [facility] [address] [place] [phone] * XR Fingers 2+ Views Left (06/23/2025 12:26 PM EDT) Anatomical Region Laterality Modality Upper Extremities, Fingers Left Radio graphic Imaging 06/23/2025 12:2 6 PM EDT Narrative 06/23/2025 1:27 PM EDT [address] [address] XRay Report Signed Patient: Diana Mcpherson MR#: M [id number] : 1965 Acct:[id number] Age/Sex: 60 / F ADM Date: 06/23/25 [facility] Dr: Zara Johnson DO Ordering Physician: Zara Johnson DO Date of Service: 06/23/25 Procedure(s): XR finger LT min 2V Accession Number(s): [id number] cc: Zara Johnson DO EXAMINATION: XR FINGER, [...] 06/23/25 1324 DD/ 1226 TD/TT: 06/23/25 1310 [employer] Tree Farmer: Procedure Note Donotuseinterpreter, Image - 08/22/[address] [place] [address] XRay Report Signed Patient: Diana Mcpherson LMR#: M [id number] : 1965Acct:[id number] Age/Sex: 60 / FADM Date: 06/23/25 Loc: HO.HHX Attending Dr: Zara Johnson DO Ordering Physician: Zara Johnson DO Date of Service: 06/23/25 Procedure(s): XR finger LT min 2V Accession Number(s): [id number] cc: Zara Johnson DO EXAMINATION: XR FINGER, [...] 06/23/25 1324 DD/ 1226 TD/TT: 06/23/25 1310 Christmas Tree Farmer: us Zara Johnson DO IMG XR PROCEDURES Final Resu lt * BI Mammogram Screening Tomosynthesis Bilateral (11/29/2024 8:45 AM EST) Anatomical Region Laterality Modality Breast Bilateral Mammography 11/29/2024 8:45 AM EST Narrative 12/07/2024 3:35 PM EST [address] [place] [address] Mammography Report Signed Patient: Diana Myles MR#: [id number] : 1965 Acct:[id number] Age/Sex: 59 / F ADM Date: 11/29/24 Loc: HO.MAMMO Attending Dr: Shalonda Coley MD Ordering Physician: Shalonda Coley MD Results: 2Be nign Findings Date of Service: 11/29/24 Follow Up: 1 Year From Orig ina Mammogram Procedure(s): MM tomosynthesis screening BI Accession Number(s): [id number] cc: Shalonda Coley MD EXAMINATION: MM SCREENING [...] 12/07/24 1532 DD/ 0845 TD/TT: 11/29/24 0915 Christmas Tree Farmer: Procedure Note Donotuseinterpreter, Image - 12/07/[facility] [address] [place] [address] Mammography Report Signed Patient: Diana Myles LMR#: [id number] : 1965Acct:[id number] Age/Sex: 59 / FADM Date: 11/29/24 Loc: HO.MAMMO Attending Dr: Shalonda Coley MD Ordering Physician: Shalonda Coley MDResults: 2Be nign Findings Date of Service: 11/29/24Follow Up: 1 Year From [facility] Mammogram Procedure(s): MM tomosynthesis screening BI Accession Number(s): [id number] cc: Shalonda Coley MD EXAMINATION: MM SCREENING [...] 12/07/24 1532 DD/ 0845 TD/TT: 11/29/24 0915 Christmas Tree Farmer: Shalonda Colye MD IM BI PROCEDURES Edited Result - Final * (ABNORMAL) Colonoscopy (07/30/2023) Colonoscopy Abnormal( A) Normal [facility] Comment:SSL polyp Shalonda Coley MD HEALTH MAINTENANCE Final Result [facility] [address] [place] [address] [phone] * Thinprep PAP and HPV nRNA E6/E7 (10/08/2022 9:30 AM EST) Clinical Information: None given [employer] [facility] LMP: NONE GIVEN [facility] Prev. PAP: NONE GIVEN [employer] [facility] Prev. BX: NONE GIVEN [employer] [facility] SOURCE: None given [facility] Statement Of Adequacy: SATISFACTORY FOR EVALUATION Age and/or menstrual status not provided [employer] Interpretation/Re sult: [facility] Comment: Negative for intraepithelial lesion or malignancy. Atrophic pattern; predominantly parabasal cells Sap Crm Developer: LYCEEMt Comment: DMM, CT(ASCP) CT screening location: [place] [address] Review Sap Crm Developer: [facility] Comment: SHON CT(ASCP) CT screening location: [place] [address] (Always Message) [facility] [employer] Comment: EXPLANATORY NOTE: The Pap is a [...] HPV nRNA E6/E7 Not Detected Not Detected [facility] Comment: Methodology: Lead Embedded Software Engineer-Mediated Amplification This assay detects E6/E7 viral messenger RNA (mRNA) from 14 high-risk HPV types (16,18,31,33,35,39,45,51,52,56,58,59,66,68). Cervical sources are required for HPV testing. If a vaginal source from a patient who has had a total hysterectomy with removal of cervix was submitted, please contact the testing laboratory for alternative testing options. For additional information, please refer to http://education.Allocadia/faq/WBR280l2 (This link if provided for information/ educational purposes only.) 10/08/2022 9:30 AM EST 10/10/2022 1:07 AM EST Narrative [facility] - 10/14/2022 7:08 PM EST FASTING: UNKNOWN us Shauna Matamoros [facility] PATHOLOGY ORDERABLES Final Result Performing Organization Address City/[facility]/ZIP Co de Phone Number [facility] [address] [place] [address], [place] [address] [facility] [address], [facility] [place] [address] * HIV AB/AG (04/30/2022 11:28 AM EDT) Pathologist [facility] HIV AB/AG Nonreactive Nonreactive [facility], [...] of detection of this assay. The [facility] HIV Ag/Ab Combo assay result and supplemental assay results should be interpreted in conjunction with the patient's clinical presentation, history and other laboratory results. If the results are inconsistent with clinical evidence, additional testing is suggested to confirm the result. Hepatitis B Surface Antibody REACTIVE Nonreactive [facility] Comment:REACTIVE: > 11.99 mI U/mL Hepatitis B Surface Antigen Negative Negative [facility] Hepatitis B Core Antibody Nonreactive Nonreactive [facility] 04/30/2022 11:2 8 AM EDT us Shalonda Coley MD HISTORICAL/NON ORDERABLE LABS Final Result [facility] [address] [place], [place] [address] from Last 3 Months or Most Recently Relevant to Health Maintenance Insurance [facility] [address] [place] [address] C3 [place] MED[place] STAND ADULT Care Teams High School French Teacher Relationship Specialty Start Date End Date Shalonda Coley MD [address] [place] [address] PCP - General Family Medicine 10/31/16 West Meier RN [address] [place] [address] Registered Nurse Family Medicine 05/10/25 [facility] 05/18/25
--- OUTSIDE RECORDS SUMMARY | 2025-08-07 14:24 | XMS_ITS | Encounter Summary ---
Author Organization [employer] Address [address] [place] [address] 7t [place] [address] Care Team Providers Care Cabin Equipment Supervisor Name Role Phone Umm Coley MD Primary Care Provider + West Meier RN Unavailable [phone] Reason for Visit * Reason Onset Date Comments Appointment Request 07/19/2025 Encounter Details Date Type Department Care Team ([facility] st Contact Info) Description 07/19/2025 Telephone [facility] MED[facility] 230 [place], [place] [phone] Umm Coley MD 230 [place], [place] [phone] Appointment Request Social History Tobacco Use Types [...] Description 08/10/2025 11:45 AM EDT Office Visit [facility] 230 [place] [address] Umm Coley MD 230 [place] [address] 10/13/2025 11:45 AM EST Office Visit [facility] [address] [place] [place] [address] [phone] Darrell Myers MD [address] [place] [address] [phone] documented as of this encounter Visit Diagnoses Not on filedocumented in this encounter Additional Health Concerns Assessment Noted Time PHQ-9 Depression Total Score: 18 025 12:18 PM EDT documented as of this encounter Care Teams Cabin Equipment Supervisor Relationship Specialty Start Date End Date Umm Coley MD [address] [place] [address] [phone] PCP - General Family Medicine 10/31/16 West Meier RN [address] [place] [address] 10[address] Registered Nurse Family Medicine 05/10/25 [facility] 05/18/25 documented as of this encounter
--- OUTSIDE RECORDS SUMMARY | 2025-08-07 14:24 | XMS_ITS | Encounter Summary ---
Author Organization [employer] Address [address] [place] [address] 7t [place] [address] Care Team Providers Care Motion Picture Set Up Worker Name Role Phone Umm Coley MD Primary Care Provider + West Meier RN Unavailable [phone] West Meier RN Unavailable [phone] Shannan [place] Unavailable Reason for Visit * Reason Onset Date Comments Appointment 06/15/2023 Encounter Details Date Type Department Care Team (Late st Contact Info) Description 06/15/2023 Telephone [facility] ADULT DENTAL 230 [place] [address] Johnny Gonzalez, WILIAN [address] [place], [place] [phone] Appointment Social History Tobacco Use Types Packs/Day [...] Office Visit [facility] MEDICINE [address] [place] [address] Umm Coley MD [address] [place] [address] 10/13/2025 11:45 AM EST Office Visit [address] [address] Darrell Myers MD [address] [place] [address] documented as of this encounter Visit Diagnoses Not on filedocumented in this encounter Additional Health Concerns Assessment Noted Time PHQ-9 Depression Total Score: 12 023 1:58 PM EDT documented as of this encounter Care Teams Motion Picture Set Up Worker Relationship Specialty Start Date End Date Umm Coley MD 230 [place] [address] PCP - General Family Medicine 10/31/16 West Meier, BEBA [address] [place] [address] Healthcare ProfShingle Trimmer 01/12/25 04/25/25 West Meier, RN [address] [place] [address] Registered Nurse Family Medicine 05/10/25 Shannan [place] 06/08/25 06/08/25 Eva Nunez Healthcare Prof 04/05/24 07/06/24 [facility] 05/11/24 11/17/24 [facility] 11/14/24 01/17/25 [employer] [facility] 12/08/24 [facility] 05/18/25 documented as of this encounter
--- OUTSIDE RECORDS SUMMARY | 2025-08-07 14:24 | XMS_ITS | Encounter Summary ---
Author Organization [facility] Address [address] [place] [address] 7t [place] [address] Care Team Providers Care Instrument Maker Name Role Phone Umm Coley MD Primary Care Provider + West Meier RN Unavailable [phone] West Meier RN Unavailable [phone] Shannan [place] Unavailable Reason for Visit * Reason Comments Med Refill Encounter Details Date Type Department Care Team (Late st Contact Info) Description 08/01/2023 Refill [facility] MED[facility]INE 230 [place], [place] [phone] Umm Coley MD 230 [place], [place] [phone] Social History Tobacco Use Types Packs/Day Years [...] Description 08/10/2025 11:45 AM EDT Office Visit [facility] 230 [place] [address] Umm Coley MD 230 [place] [address] 10/13/2025 11:45 AM EST Office Visit [facility] 230 [place] [address] Darrell Myers MD 230 [place], [place] [phone] documented as of this encounter Visit Diagnoses Not on filedocumented in this encounter Additional Health Concerns Assessment Noted Time PHQ-9 Depression Total Score: 12 023 1:58 PM EDT documented as of this encounter Care Teams Instrument Maker Relationship Specialty Start Date End Date Umm Coley MD [address] [place] [address] [phone] PCP - General Family Medicine 10/31/16 West Meier, RN 505 [place] [address] Laundry Machine MechanicSalesperson Books 01/12/25 04/25/25 West Meier, RN 505 [place] [address] Registered Nurse Family Medicine 05/10/25 Shannan [place] 06/08/25 06/08/25 Eva Nunez Laundry Machine Mechanic 04/05/24 07/06/24 [facility] 05/11/24 11/17/24 [facility] 11/14/24 01/17/25 [employer] 12/08/24 [facility] 05/18/25 documented as of this encounter
--- OUTSIDE RECORDS SUMMARY | 2025-08-07 14:24 | XMS_ITS | Encounter Summary ---
Author Organization [employer] Address [address] [place] [address] 7t [place] [address] Care Team Providers Care Social Work Instructor Name Role Phone Umm Coley MD Primary Care Provider + West Meier RN Unavailable [phone] West Meier RN Unavailable [phone] Shannan [place] Unavailable Encounter Details Date Type Department Care Team (Late st Contact Info) Description 11/03/2022 Orders Only [facility] MEDICINE 230 [place], [place] [phone] Umm Coley MD 230 [place], [place] [phone] Osteopenia after menopause (Primary Dx) Social History [...] Description 08/10/2025 11:45 AM EDT Office Visit [address] [phone] Umm Coley MD [address] [place] [address] 10/13/2025 11:45 AM EST Office Visit [address] [phone] Darrell Myers MD [address] [place] [address] [phone] Scheduled Orders Name Type Priority Associated Diagnoses Orde r Schedule Vitamin D, 25-Hydroxy, Total, Immunoassay Lab Routine Osteopenia after menopause Expected: 11/03/2022 (Approximate), Expires: 11/03/2023 PTH, Intact (ICMA) And Ionized Calcium Lab Routine Osteopenia after menopause Expected: 11/03/2022 (Approximate), Expires: 11/03/2023 documented as of this encounter Visit Diagnoses Diagnosis Osteopenia after menopause- Primary documented in this encounter Care Teams Social Work Instructor Relationship Specialty Start Date End Date Umm Coley MD [address] [place] [address] PCP - General Family Medicine 10/31/16 West Meier RN 505 [place], [place] [phone] Electronic Equipment RepairmenSenior Clerk 01/12/25 04/25/25 West Meier, RN 505 [place], [place] [phone] Registered Nurse Family Medicine 05/10/25 Shannan [place] 06/08/25 06/08/25 Eva Nunez Electronic Equipment Repairmen 04/05/24 07/06/24 [facility] 05/11/24 11/17/24 [facility] 11/14/24 01/17/25 [employer] [facility] 12/08/24 [facility] 05/18/25 documented as of this encounter
--- OUTSIDE RECORDS SUMMARY | 2025-08-07 14:24 | XMS_ITS | Encounter Summary ---
Author Organization [employer] Address [address] [facility] 7t [place] [address] Care Team Providers Care Restaurant Worker Name Role Phone Umm Coley MD Primary Care Provider + West Meier RN Unavailable [phone] West Meier RN Unavailable [phone] Shannan [place] Unavailable Reason for Visit * Reason Onset Date Comments Appointment 03/17/2023 Encounter Details Date Type Department Care Team (Late st Contact Info) Description 03/17/2023 Telephone [facility] ADULT DENTAL 230 [place] [address] Johnny Gonzalez, WILIAN [address] [place], [place] [phone] Appointment Social History Tobacco Use Types Packs/Day [...] Description 08/10/2025 11:45 AM EDT Office Visit [facility] MED[facility]INE [address] [place] [address] Umm Coley MD [address] [place] [address] 10/13/2025 11:45 AM EST Office Visit [address] [address] Darrell Myers MD [address] [place] [address] documented as of this encounter Visit Diagnoses Not on filedocumented in this encounter Care Teams Restaurant Worker Relationship Specialty Start Date End Date Umm Coley MD [address] [place] [address] PCP - General Family Medicine 10/31/16 West Meier RN [address] [facility] [place] [address] Trailer Truck DriverMallet And Die Cutter 01/12/25 04/25/25 West Meier RN [address] [facility] [place] [address] Registered Nurse Family Medicine 05/10/25 Shannan [place] 06/08/25 06/08/25 Eva Nunez Trailer Truck Driver 04/05/24 07/06/24 [facility] 05/11/24 11/17/24 [facility] 11/14/24 01/17/25 [employer] 12/08/24 [facility] 05/18/25 documented as of this encounter
--- OUTSIDE RECORDS SUMMARY | 2025-08-07 14:24 | XMS_ITS | Encounter Summary ---
Author Organization [facility] Address [address] [place] [address] 7t [place] [address] Care Team Providers Care Human Resources Psychologist Name Role Phone Umm Coley MD Primary Care Provider + West Meier RN Unavailable [phone] West Meier RN Unavailable [phone] Shannan [place] Unavailable Reason for Visit * Reason Comments Med Refill Encounter Details Date Type Department Care Team (Late st Contact Info) Description 02/05/[address] [facility] MED[facility]INE 230 [place], [place] [phone] Umm Coley MD 230 [place], [place] [phone] Arthritis of knee Social History Tobacco Use [...] 08/10/2025 11:45 AM EDT Office Visit [facility] [address] [place] [address] Umm Coley MD 230 [place] [address] 10/13/2025 11:45 AM EST Office Visit [facility] [address] [place] [address] Darrell Myers MD 230 [place] [address] documented as of this encounter Visit Diagnoses Diagnosis Arthritis of knee Unspecified arthropathy, lower leg documented in this encounter Care Teams Human Resources Psychologist Relationship Specialty Start Date End Date Umm Coley MD [address] [place] [address] PCP - General Family Medicine 10/31/16 West Meier, RN 505 [place] [address] Data Reduction TechnicianTechnical Sales Advisor 01/12/25 04/25/25 West Meier, RN 505 [place] [address] Registered Nurse Family Medicine 05/10/25 Shannan [place] 06/08/25 06/08/25 Eva Nunez Data Reduction Technician 04/05/24 07/06/24 [facility] 05/11/24 11/17/24 [facility] 11/14/24 01/17/25 [employer] 12/08/24 [facility] 05/18/25 documented as of this encounter
--- OUTSIDE RECORDS SUMMARY | 2025-08-07 14:24 | XMS_ITS | Encounter Summary ---
Author Organization [employer] Address [address] [place] [address] 7t [place] [address] Care Team Providers Care Dry Ice Maker Name Role Phone Umm Coley MD Primary Care Provider + West Meier RN Unavailable [phone] West Meier RN Unavailable [phone] Shannan [place] Unavailable Encounter Details Date Type Department Care Team (Latest Contact Info) Description 11/23/2020 Abstract [facility] CONVERSIONS Dental, Provider, DDS Social History [...] Description 08/10/2025 11:45 AM EDT Office Visit [facility] MED[facility]INE [address] [place] [address] [phone] Umm Coley MD [address] [place] [address] [phone] 10/13/2025 11:45 AM EST Office Visit [facility] [address] [place] [address] [phone] Darrell Myers MD [address] [place] [address] [phone] documented as of this encounter Visit Diagnoses Not on filedocumented in this encounter Care Teams Dry Ice Maker Relationship Specialty Start Date End Date Umm Coley MD [address] [place] [address] PCP - General Family Medicine 10/31/16 West Meier, RN 505 [place] [address] Ladies AttendantSterile Technician 01/12/25 04/25/25 West Meier RN 505 [place] [address] Registered Nurse Family Medicine 05/10/25 Shannan [place] 06/08/25 06/08/25 Eva Nunez Ladies Attendant 04/05/24 07/06/24 [facility] 05/11/24 11/17/24 [facility] 11/14/24 01/17/25 [employer] 12/08/24 [facility] 05/18/25 documented as of this encounter
--- OUTSIDE RECORDS SUMMARY | 2025-08-07 14:24 | XMS_ITS | Encounter Summary ---
Author Organization [employer] Address [address] [place] [address] 7t [place] [address] Care Team Providers Care Turn Down Attendant Name Role Phone Umm Coley MD Primary Care Provider + West Meier RN Unavailable [phone] West Meier RN Unavailable [phone] Shannan [place] Unavailable Encounter Details Date Type Department Care Team (Latest Contact Info) Description 09/16/2022 Abstract [facility] CONVERSIONS Dental, Provider, DDS Social [...] EDT Office Visit [facility] MEDICINE [address] [place] [address] [phone] Umm Coley MD [address] [place] [address] [phone] 10/13/2025 11:45 AM EST Office Visit [facility] MED[facility]INE [address] [place] [address] [phone] Darrell Myers MD [address] [place] [address] [phone] documented as of this encounter Visit Diagnoses Not on filedocumented in this encounter Care Teams Turn Down Attendant Relationship Specialty Start Date End Date Umm Coley MD [address] [place] [address] PCP - General Family Medicine 10/31/16 West Meier, RN 505 [place] [address] Air Pollution AuditorMotor Builder Winder 01/12/25 04/25/25 West Meier RN 505 [place] [address] Registered Nurse Family Medicine 05/10/25 Shannan C[place]ton 06/08/25 06/08/25 Eva Nunez Air Pollution Auditor 04/05/24 07/06/24 [facility] 05/11/24 11/17/24 [facility] 11/14/24 01/17/25 [employer] 12/08/24 [facility] 05/18/25 documented as of this encounter
--- OUTSIDE RECORDS SUMMARY | 2025-08-07 14:24 | XMS_ITS | Encounter Summary ---
Author Organization [employer] Address [address] [place] [address] 7t [place] [address] Care Team Providers Care Barrel Maker Name Role Phone Umm Coley MD Primary Care Provider + West Meier RN Unavailable [phone] West Meier RN Unavailable [phone] Shannan [place] Unavailable Reason for Visit * Reason Onset Date Comments Dr. Gonzalez conversation PCP/cleared for tx?? Encounter Details Date Type Department Care Team ([facility] st Contact Info) Description 03/28/2025 Telephone [facility] ADULT DENTAL 505 [place], [place] [phone] Johnny Gonzalez, WILIAN [address] [place], [place] [phone] Dr. Gonzalez conversation PCP/cleared for tx?? Social [...] Send to both provider clinical support and hotel front office manager DR documented in this encounter Plan of Treatment Upcoming Encounters Date Type Department Care Team (Late st Contact Info) Description 08/10/2025 11:45 AM EDT Office Visit [facility] MEDICINE 230 [place] [address] Umm Coley MD 230 [place] [address] 10/13/2025 11:45 AM EST Office Visit [facility] MEDICINE 230 [place] [address] Darrell Myers MD 230 [place] [address] documented as of this encounter Visit Diagnoses Not on filedocumented in this encounter Additional Health Concerns Assessment Noted Time PHQ-9 Depression Total Score: 10 024 9:17 AM EDT documented as of this encounter Care Teams Barrel Maker Relationship Specialty Start Date End Date Umm Coley MD 230 [place] [address] PCP - General Family Medicine 10/31/16 West Meier RN 505 [facility] [place] [address] Repairer Recreational VehicleLicensing Worker 01/12/25 04/25/25 West Meier RN 505 [facility] [place] [address] Registered Nurse Family Medicine 05/10/25 Shannan [place] 06/08/25 06/08/25 [facility] 05/18/25 documented as of this encounter
--- OUTSIDE RECORDS SUMMARY | 2025-08-07 14:24 | XMS_ITS | Encounter Summary ---
Author Organization [employer] Address [address] [place] [address] 7t [place] [address] Care Team Providers Care Apartment Maintenance Technician Name Role Phone Umm Coley MD Primary Care Provider + West Meier RN Unavailable [phone] West Meier RN Unavailable [phone] Shannan [place] Unavailable Reason for Visit * Reason Comments Med Refill Encounter Details Date Type Department Care Team (Late st Contact Info) Description 05/21/2023 Refill [facility] MED[facility]INE 230 [place], [place] [phone] Umm Coley MD 230 [place], [place] [phone] Arthritis of knee Social History Tobacco Use [...] Office Visit [facility] MEDICINE [address] [place] [address] Umm Coley MD 230 [place], [place] [phone] 10/13/2025 11:45 AM EST Office Visit [facility] MEDICINE [address] [place] [address] Darrell Myers MD [address] [place] [address] [phone] documented as of this encounter Visit Diagnoses Diagnosis Arthritis of knee Unspecified arthropathy, lower leg documented in this encounter Additional Health Concerns Assessment Noted Time PHQ-9 Depression Total Score: 12 023 1:58 PM EDT documented as of this encounter Care Teams Apartment Maintenance Technician Relationship Specialty Start Date End Date Umm Coley MD [address] [place] [address] PCP - General Family Medicine 10/31/16 West Meier, RN 505 [place] [address] Wharf Tender HelperBurial Agent 01/12/25 04/25/25 West Meier, RN [address] [place] [address] Registered Nurse Family Medicine 05/10/25 Shannan [place] 06/08/25 06/08/25 Eva Nunez Wharf Tender Helper 04/05/24 07/06/24 [facility] 05/11/24 11/17/24 [facility] 11/14/24 01/17/25 [employer] 12/08/24 [facility] 05/18/25 documented as of this encounter
--- OUTSIDE RECORDS SUMMARY | 2025-08-07 14:24 | XMS_ITS | Encounter Summary ---
Author Organization [employer] Address [address] [place] [address] 7t [place] [address] Care Team Providers Care Local Operator Name Role Phone Umm Coley MD Primary Care Provider + West Meier RN Unavailable [phone] Reason for Visit * Reason Onset Date Comments form update 06/22/2025 Encounter Details Date Type Department Care Team ([facility] st Contact Info) Description 06/22/2025 Telephone [facility] MEDICINE 230 [place], [place] [phone] Umm Coley MD 230 [place], [place] [phone] form update Social History Tobacco Use Types [...] AM EDT Tc from Yahir at [facility] requesting update on form faxed over for pt plan of care Contact Yahir at [phone] documented in this encounter Plan of Treatment Upcoming Encounters Date Type Department Care Team ([facility] st Contact Info) Description 08/10/2025 11:45 AM EDT Office Visit [facility] MEDICINE [address] [place] [address] Umm Coley MD [address] [place] [address] [phone] 10/13/2025 11:45 AM EST Office Visit [facility] MEDICINE [address] [place] [address] [phone] Darrell Myers MD [address] [place] [address] [phone] documented as of this encounter Visit Diagnoses Not on filedocumented in this encounter Additional Health Concerns Assessment Noted Time PHQ-9 Depression Total Score: 10 024 9:17 AM EDT documented as of this encounter Care Teams Local Operator Relationship Specialty Start Date End Date Umm Coley MD [address] [place] [address] [phone] PCP - General Family Medicine 10/31/16 West Meier, BEBA [address] [place] [address] Registered Nurse Family Medicine 05/10/25 [facility] 05/18/25 documented as of this encounter
--- OUTSIDE RECORDS SUMMARY | 2025-08-07 14:24 | XMS_ITS | Encounter Summary ---
Author Organization [employer] Address [address] [place] [address] 7t [place] [address] Care Team Providers Care Dispensing Optician Apprentice Name Role Phone Umm Coley MD Primary Care Provider + West Meier RN Unavailable [phone] West Meier RN Unavailable [phone] Shannan [place] Unavailable Encounter Details Date Type Department Care Team (Latest Contact Info) Description 11/14/2019 Abstract [facility] 08/10/2025 11:45 AM EDT Office Visit [facility] MEDICINE [address] [place] [address] [phone] Umm Coley MD [address] [place] [address] [phone] 10/13/2025 11:45 AM EST Office Visit [facility] MEDICINE [address] [place] [address] [phone] Darrell Myers MD [address] [place] [address] [phone] documented as of this encounter Visit Diagnoses Not on filedocumented in this encounter Care Teams Dispensing Optician Apprentice Relationship Specialty Start Date End Date Umm Coley MD [address] [place] [address] PCP - General Family Medicine 10/31/16 West Meier, RN 505 [place] [address] Fountain ServerNremt 01/12/25 04/25/25 West Meier RN 505 [place] [address] Registered Nurse Family Medicine 05/10/25 Shannan [place] 06/08/25 06/08/25 Eva Nunez Fountain Server 04/05/24 07/06/24 [facility] 05/11/24 11/17/24 [facility] 11/14/24 01/17/25 [email or web address] 12/08/24 [facility] 05/18/25 documented as of this encounter
--- OUTSIDE RECORDS SUMMARY | 2025-08-07 14:24 | XMS_ITS | Encounter Summary ---
Author Organization [employer] Address [address] [place] [address] 7t [place] [address] Care Team Providers Care Electrical Engineering Designer Name Role Phone Umm Coley MD Primary Care Provider + West Meier RN Unavailable [phone] Reason for Visit * Reason Onset Date Comments Med Refill 06/28/2025 Encounter Details Date Type Department Care Team (Late st Contact Info) Description 06/28/[address] [facility] MEDICINE 230 [place], [place] [phone] Umm Coley MD 230 [place], [place] [phone] Med Refill Social History Tobacco Use Types [...] MCG (1999) capsule To be sent to: [facility]/pharmacy #[id number] [place] - [address] [place] [address] documented in this encounter Plan of Treatment Upcoming Encounters Date Type Department Care Team ([facility] st Contact Info) Description 08/10/2025 11:45 AM EDT Office Visit [facility] MEDICINE [address] [place] [address] Umm Coley MD [address] [place] [address] 10/13/2025 11:45 AM EST Office Visit [facility] MEDICINE [address] [place] [address] [phone] Darrell Myers MD [address] [place] [address] [phone] documented as of this encounter Visit Diagnoses Not on filedocumented in this encounter Additional Health Concerns Assessment Noted Time PHQ-9 Depression Total Score: 10 024 9:17 AM EDT documented as of this encounter Care Teams Electrical Engineering Designer Relationship Specialty Start Date End Date Umm Coley MD [address] [place] [address] PCP - General Family Medicine 10/31/16 West Meier, BEBA [address] [place] [address] Registered Nurse Family Medicine 05/10/25 [facility] 05/18/25 documented as of this encounter
--- OUTSIDE RECORDS SUMMARY | 2025-08-07 14:24 | XMS_ITS | Encounter Summary ---
Author Organization [employer] Address [address] [place] [address] 7t [place] [address] Care Team Providers Care Pipe Covering Molder Name Role Phone Umm Coley MD Primary Care Provider + West Meier RN Unavailable [phone] West Meier RN Unavailable [phone] Shannan Covington Unavailable Encounter Details Date [...] 08/10/2025 11:45 AM EDT Office Visit [facility] MEDICINE [address] [place] [address] [phone] Umm Coley MD [address] [place] [address] [phone] 10/13/2025 11:45 AM EST Office Visit [facility] MEDICINE [address] [place] [address] [phone] Darrell Myers MD [address] [place] [address] [phone] documented as of this encounter Visit Diagnoses Not on filedocumented in this encounter Care Teams Pipe Covering Molder Relationship Specialty Start Date End Date Umm Coley MD [address] [place] [phone] PCP - General Family Medicine 10/31/16 West Meier, RN 505 [place] [address] Hims ManagerCipher Expert 01/12/25 04/25/25 West Meier RN 505 [place] [address] Registered Nurse Family Medicine 05/10/25 Shannan Covington 06/08/25 06/08/25 Eva Nunez Hims Manager 04/05/24 07/06/24 [facility] 05/11/24 11/17/24 [facility] 11/14/24 01/17/25 [email or web address] 12/08/24 [facility] 05/18/25 documented as of this encounter
--- OUTSIDE RECORDS SUMMARY | 2025-08-07 14:24 | XMS_ITS | Encounter Summary ---
Author Organization [employer] Address 75 [facility] 7t [place] [address] Care Team Providers Care Cattle Killer Name Role Phone Umm Coley MD Primary Care Provider + West Meier RN Unavailable West Meier RN Unavailable [phone] Shannan Covington Unavailable Encounter Details Date Type Department Care Team (Late st Contact Info) Description 08/23/2024 Orders Only [facility] ADULT DENTAL 505 [place], [place] [phone] Johnny Gonzalez, WILIAN 505 [place], [place] [phone] Social History Tobacco Use Types Packs/Day Years [...] 08/10/2025 11:45 AM EDT Office Visit [facility] MEDICINE [address] [place] [address] Umm Coley MD [address] [place] [address] 10/13/2025 11:45 AM EST Office Visit [address] [address] Darrell Myers MD [address] [place] [address] documented as of this encounter Visit Diagnoses Not on filedocumented in this encounter Additional Health Concerns Assessment Noted Time PHQ-9 Depression Total Score: 10 024 9:17 AM EDT documented as of this encounter Care Teams Cattle Killer Relationship Specialty Start Date End Date Umm Coley MD [address] [place] [address] PCP - General Family Medicine 10/31/16 West Meier RN [address] [place] [address] Ethics InstructorEstimating Manager 01/12/25 04/25/25 West Meier, RN [address] [place] [address] Registered Nurse Family Medicine 05/10/25 Shannan Covington 06/08/25 06/08/25 [facility] 05/11/24 11/17/24 [facility] 11/14/24 01/17/25 [employer] 12/08/24 [facility] 05/18/25 documented as of this encounter
--- OUTSIDE RECORDS SUMMARY | 2025-08-07 14:24 | XMS_ITS | Encounter Summary ---
Author Organization [employer] Address [address] [place] [address] 7t [place] [address] Care Team Providers Care Back End Developer Name Role Phone Umm Coley MD Primary Care Provider + West Meier RN Unavailable [phone] West Meier RN Unavailable [phone] Shannan Covington Unavailable Reason for Visit * Reason Onset Date Comments pre med prior to dental treatment 08/23/2024 Encounter Details Date Type Department Care Team ([facility] st Contact Info) Description 08/23/2024 Telephone [facility] ADULT DENTAL 505 [place], [place] [phone] Johnny Gonzalez DMD 505 [place], [place] [phone] pre med prior to dental treatment Social [...] Office Visit [facility] MEDICINE [address] [facility] [place] [address] Umm Coley MD [address] [facility] [place] [address] 10/13/2025 11:45 AM EST Office Visit [facility] [place] [address] Darrell Myers MD [address] [facility] [place] [address] documented as of this encounter Visit Diagnoses Not on filedocumented in this encounter Additional Health Concerns Assessment Noted Time PHQ-9 Depression Total Score: 024 9:17 AM EDT documented as of this encounter Care Teams Back End Developer Relationship Specialty Start Date End Date Umm Coley MD [facility] [place] [address] PCP - General Family Medicine 10/31/16 West Meier RN 505 [facility] [place] [address] Medical TechnologistCertified Hyperbaric Technician 01/12/25 04/25/25 West Meier, RN 505 [facility] [place] [address] Registered Nurse Family Medicine 05/10/25 Shannan Covington 06/08/25 06/08/25 [facility] 05/11/24 11/17/24 [facility] 11/14/24 01/17/25 [employer] 12/08/24 [facility] 05/18/25 documented as of this encounter
--- OUTSIDE RECORDS SUMMARY | 2025-08-07 14:24 | XMS_ITS | Encounter Summary ---
Author Organization [employer] Address [address] [place] [address] 7t [place] [address] Care Team Providers Care Ore Puncher Name Role Phone Umm Coley MD Primary Care Provider + West Meier RN Unavailable [phone] West Meier RN Unavailable [phone] Shannan Covington Unavailable Reason for Visit * Reason Comments Med Change Request Encounter Details Date Type Department Care Team (Late st Contact Info) Description 03/20/2023 Refill [facility] ADULT DENTAL 230 [place] [address] Johnny Gonzalez DMD 505 [place], [place] [phone] Social History Tobacco Use Types Packs/Day Years [...] 11:45 AM EDT Office Visit [facility] MEDICINE [address] [place] [address] Umm Coley MD 230 [place] [address] 10/13/2025 11:45 AM EST Office Visit [facility] MEDICINE 230 [place] [address] Darrell Myers MD 230 [place] [address] documented as of this encounter Visit Diagnoses Not on filedocumented in this encounter Care Teams Ore Puncher Relationship Specialty Start Date End Date Umm Coley MD 230 [place] [address] PCP - General Family Medicine 10/31/16 West Meier, RN 505 [place] [address] Director Public ServiceDitch Cleaner 01/12/25 04/25/25 West Meier, RN 505 [place] [address] Registered Nurse Family Medicine 05/10/25 Shannan Covington 06/08/25 06/08/25 Eva Nunez Director Public Service 04/05/24 07/06/24 [facility] 05/11/24 11/17/24 [facility] 11/14/24 01/17/25 [employer] 12/08/24 [facility] 05/18/25 documented as of this encounter
--- OUTSIDE RECORDS SUMMARY | 2025-08-07 14:24 | XMS_ITS | Encounter Summary ---
Author Organization [employer] Address [address] [place] [address] 7t [place] [address] Care Team Providers Care Production Weigher Name Role Phone Umm Coley MD Primary Care Provider + West Meier RN Unavailable [phone] West Meier RN Unavailable [phone] Shannan Covington Unavailable Encounter Details Date Type Department Care Team (Late st Contact Info) Description 03/05/2023 Orders Only [facility] MEDICINE 230 [place], [place] [phone] Umm Coley MD 230 [place], [place] [phone] Social History Tobacco Use Types Packs/Day Years [...] Visit [facility] MEDICINE 230 [place] [address] Umm Coley MD 230 [place] [address] 10/13/2025 11:45 AM EST Office Visit [address] [address] Darrell Myers MD 230 [place] [address] documented as of this encounter Visit Diagnoses Not on filedocumented in this encounter Care Teams Production Weigher Relationship Specialty Start Date End Date Umm Coley MD [address] [place] [address] PCP - General Family Medicine 10/31/16 West Meier RN 505 [place] [address] Thermostat MechanicManager Sourcing 01/12/25 04/25/25 West Meier RN 505 [place] [address] Registered Nurse Family Medicine 05/10/25 Shannan Covington 06/08/25 06/08/25 Eva Nunez Thermostat Mechanic 04/05/24 07/06/24 [facility] 05/11/24 11/17/24 [facility] 11/14/24 01/17/25 [employer] 12/08/24 [facility] 05/18/25 documented as of this encounter
--- OUTSIDE RECORDS SUMMARY | 2025-08-07 14:24 | XMS_ITS | Encounter Summary ---
Author Organization [employer] Address [address] [facility] 7t [place] [address] Care Team Providers Care Ribbon Cleaner Name Role Phone Umm Coley MD Primary Care Provider + West Meier RN Unavailable [phone] West Meier RN Unavailable [phone] Shannan Covington Unavailable Reason for Visit * Reason Onset Date Comments Appointment 02/24/2023 Encounter Details Date Type Department Care Team (Late st Contact Info) Description 02/24/[address] [facility] ADULT DENTAL 230 [place] [address] Johnny Gonzalez, WILIAN [address] [place], [place] [phone] Appointment Social History Tobacco Use Types Packs/Day [...] AM EDT Office Visit [facility] MEDICINE [address] [place] [address] Umm Coley MD [address] [place] [address] 10/13/2025 11:45 AM EST Office Visit [facility] MEDICINE [address] [place] [address] Darrell Myres MD [address] [place] [address] documented as of this encounter Visit Diagnoses Not on filedocumented in this encounter Care Teams Ribbon Cleaner Relationship Specialty Start Date End Date Umm Coley MD [address] [place] [address] PCP - General Family Medicine 10/31/16 West Meier RN 505 [place] [address] Tool Grinder Operator SurfaceBreaker Machine Tender 01/12/25 04/25/25 West Meier RN 505 [place] [address] Registered Nurse Family Medicine 05/10/25 Shannan Covington 06/08/25 06/08/25 Eva Nunez Tool Grinder Operator Surface 04/05/24 07/06/24 [facility] 05/11/24 11/17/24 [facility] 11/14/24 01/17/25 [employer] 12/08/24 [facility] 05/18/25 documented as of this encounter
--- OUTSIDE RECORDS SUMMARY | 2025-08-07 14:24 | XMS_ITS ---
Author Organization [employer] Address [address] [place] [address] 7t [place] [address] Care Team Providers Care Junior Programmer Name Role Phone Umm Coley MD Primary Care Provider + West Meier RN Unavailable [phone] Status:Enrolled (Active) Start date:05/10/2025 Enrollment date:05/10/2025 Enrollment reason:Referred by provider Overview Lost contact on [employer]. Re-opening program per PCP but now on GANESH. Case Team Name Relationship Phone West Meier RN(Responsible Staff) Registered [facility] [phone] Continued Care and Services Coordination
--- OUTSIDE RECORDS SUMMARY | 2025-08-07 14:24 | XMS_ITS | Encounter Summary ---
Author Organization [employer] Address [address] [place] [address] 7t [place] [address] Care Team Providers Care Head Filter Press Tender Name Role Phone Umm Coley MD Primary Care Provider + West Meier RN Unavailable [phone] West Meier RN Unavailable [phone] Shannan Covington Unavailable Reason for Visit * Reason Onset Date Comments appt 01/08/2024 Encounter Details Date Type Department Care Team (Late st Contact Info) Description 01/08/2024 Telephone [facility] ADULT DENTAL 505 [place], [place] [phone] Homer Strong DDS 505 [place], [place] [phone] appt Social History Tobacco Use Types Packs/Day [...] Description 08/10/2025 11:45 AM EDT Office Visit [facility] MEDICINE [address] [place] [address] Umm Coley MD [address] [place] [address] 10/13/2025 11:45 AM EST Office Visit [facility] MEDICINE [address] [place] [address] Drarell Myers MD 230 [place] [address] documented as of this encounter Visit Diagnoses Not on filedocumented in this encounter Additional Health Concerns Assessment Noted Time PHQ-9 Depression Total Score: 21 024 11:31 AM EST documented as of this encounter Care Teams Head Filter Press Tender Relationship Specialty Start Date End Date Umm Coley MD [address] [place] [address] PCP - General Family Medicine 10/31/16 West Meier, RN 505 [place] [address] Resource DirectorHeel Cover Splitter 01/12/25 04/25/25 West Meier RN 505 [place] [address] Registered Nurse Family Medicine 05/10/25 Shannan Covington 06/08/25 06/08/25 Eva Nunez Resource Director 04/05/24 07/06/24 [facility] 05/11/24 11/17/24 [facility] 11/14/24 01/17/25 [employer] 12/08/24 [facility] 05/18/25 documented as of this encounter
--- OUTSIDE RECORDS SUMMARY | 2025-08-07 14:24 | XMS_ITS | Encounter Summary ---
Author Organization [employer] Address [address] [place] [address] 7t [place] [address] Care Team Providers Care Front Worker Name Role Phone Umm Coley MD Primary Care Provider + West Meier RN Unavailable [phone] West Meier RN Unavailable [phone] Shannan Covington Unavailable Reason for Visit * Reason Comments Med Change Request Encounter Details Date Type Department Care Team (Late st Contact Info) Description 03/20/2023 Refill [facility] ADULT DENTAL 230 [place] [address] Johnny Gonzalez DMD 505 [place], [place] [phone] Social History Tobacco Use Types Packs/Day Years [...] Description 08/10/2025 11:45 AM EDT Office Visit [facility] MEDICINE [address] [place] [address] Umm Coley MD 230 [place] [address] 10/13/2025 11:45 AM EST Office Visit [facility] MEDICINE 230 [place] [address] Darrell Myers MD 230 [place] [address] documented as of this encounter Visit Diagnoses Not on filedocumented in this encounter Care Teams Front Worker Relationship Specialty Start Date End Date Umm Coley MD 230 [place] [address] PCP - General Family Medicine 10/31/16 West Meier, RN 505 [place] [address] Dog Or Horse Racing OfficialDirector Franchise Sales 01/12/25 04/25/25 West Meier, RN 505 [place] [address] Registered Nurse Family Medicine 05/10/25 Shannan Covington 06/08/25 06/08/25 Eva Nunez Dog Or Horse Racing Official 04/05/24 07/06/24 [facility] 05/11/24 11/17/24 [facility] 11/14/24 01/17/25 [employer] 12/08/24 [facility] 05/18/25 documented as of this encounter
== END 2025-08-07 11:52 | disposition home or self-care (01) ==
LOC: HO.XRAY 11:51
PROVIDERS: PCP Internal Medicine; Visit Provider Internal Medicine Rheumatology
DX: M25.561 Pain in right knee (principal); M25.562 Pain in left knee; G89.29 Other chronic pain; M79.641 Pain in right hand; M79.642 Pain in left hand
CPT/HCPCS: 73130; 73562

== ENCOUNTER → 2025-08-07 11:57 | Outpatient (BNV) | payer MEDICAID, SELFPAY | PROVIDERS: PCP Internal Medicine; Visit Provider Radiology Diagnostic Ultrasound | DX: M25.462 Effusion, left knee (principal); M25.561 Pain in right knee; M19.042 Primary osteoarthritis, left hand; M19.041 Primary osteoarthritis, right hand | CPT/HCPCS: 73130; 73562 ==

== ENCOUNTER 2025-08-09 11:48 | Outpatient (AMB) | payer MEDICAID, SELFPAY ==
[2025-08-09 11:52] VITALS: BP 97/52; PULSE 78; BMI 19.9
--- NOTE | 2025-08-09 11:52 | MHC.OFFVIS ---
Vital Signs 08/09/25 11:52 Height 5 ft 2 in Weight 109 lb BMI 19.9 BP 97/52 L Blood Pressure Location Lt brachial Position Sitting Pulse 78 Intake Visit Reasons: 3 wks f/u rt flank pain, IBS-M, GERD Intake Note: Diana presents in office today in follow up of GERD. CC: Patient reports a little bit of RUQ abd pain. Denies other GI symptoms today. Back End Web Developer Required: Yes Allergies codeine (CODEINE) Allergy (Intermediate, Verified 08/09/25 12:03) DIZZY/NAUSEA, nausea/vomiting escitalopram (From LEXAPRO) Allergy (Intermediate, Verified 08/09/25 12:03) ? NAUSEA meperidine (MEPERIDINE) Allergy (Intermediate, Verified 08/09/25 12:03) NAUSEA morphine (MORPHINE) Allergy (Intermediate, Verified 08/09/25 12:03) PALPITATIONS, palpitation oxycodone (OXYCODONE) Allergy (Intermediate, Verified 08/09/25 12:03) PALPATATIONS, palpitations tramadol Allergy (Unknown, Verified 08/09/25 12:03) dizziness, nausea HPI HPI 3 wks f/u rt flank pain, IBS-M, GERD: Details: Assessment & Plan (1) GERD (gastroesophageal reflux disease): Code(s): K21.9 - Gastro-esophageal reflux disease without esophagitis Category: Medical (2) Irritable bowel syndrome with both constipation and diarrhea: Code(s): K58.2 - Mixed irritable bowel syndrome Category: Medical (3) Right flank pain: Code(s): R10.9 - Unspecified abdominal pain Category: Medical (4) History of obstruction of large intestine: Comment: [address] Code(s): Z87.19 - Personal history of other diseases of the digestive system Category: Medical Plan Cypriot #Sandra Corky Her current medications are omeprazole and dicyclomine. - The patient is a 60-year-old female presenting with right flank pain. This is an added complaint to her usual follow-up for her IBS and GERD. - Experienced right flank pain for a few days, resembling past pain linked to bowel obstruction treated in the ER two years prior. - Noted kidney stones on prior diagnoses could relate to current symptoms. - Suffered a fall resulting in an arm fracture, followed by two surgeries in December. - Postoperative complications included intermittent diarrhea and constipation. - Pain is altered by body posture, worsens when leaning forward, eased by standing. - Reports no specific dietary correlation with bowel symptoms; however, starchy foods might exacerbate the discomfort. - Prior recommendation included fiber-rich diet for bowel regularity. This is because she tends to have a mixed IBS presentation and fiber is the best treatment for this treating both the diarrhea and the constipation phase is. Given her history, which is complex, the pain could be bowel related but it also could be musculoskeletal or even related to her history of kidney stones. I think we will get some studies to try to tease this out. The fact that it is not affected by dicyclomine makes me think that it may not be a bowel pathology. We will get an x-ray of the thoracic spine in the ribs to see if there is any reason to suspect radicular or referred pain and a urinalysis to see if there is any blood in the urine or crystals that could point toward nephrolithiasis. No new treatments yet as I really do not know what the underlying causes. She was instructed to go to the ER if the pain severely worsens and call my office. Return office visit in 3 weeks Orders: Orders XR thoracic spine 2V 07/18/25 R10.9 - Unspecified abdominal pain UA CC w/rflx Micro + Cult 07/18/25 R10.9 - Unspecified abdominal pain XR ribs RT 2V 07/18/25 R10.9 - Unspecified abdominal pain Medications: Discontinued prednisone Discontinued Reason: Patient no longer taking 40 mg (2 x 20 mg) PO DAILY 5 days 10 tabs 0RF LABS: 07/18/25-[address]: Umm Coley MD ORDERED: Ua Clean Catch QUERIES: Source: Urine, Clean Catch Test Result Flag Reference Ur Color Yellow Ur Appear Clear PH 5.5 5.0-9.0 Ur Glu Negative Negative mg/dL Urine Blood Negative Negative Spec Nursery Ur 1.020 1.005-1.025 Urine Protein Negative Neg-Trace mg/dL Urine Ketones Negative Negative mg/dL Ur Nitrite Negative Negative Ur Haris Esterase Negative Negative X-RAY OF THE THORACIC SPINE 07/18/2025 FINDINGS: There is no fracture or bone destruction seen and the vertebral alignment is normal. There is no disc space narrowing. There is no abnormality of the paraspinal soft tissues. XR/XR thoracic spine 2V IMPRESSION: Unremarkable examination. X-RAY OF THE RIGHT RIBS FINDINGS: Four views of the right ribs are submitted. Osseous mineralization is normal. No fracture is seen. There are surgical clips in the right breast and right axilla. XR/XR ribs RT 2V IMPRESSION: Unremarkable examination of the right ribs. CORRESPONDENCE On 07/19/25 @ 17:13 Ricci Chandler Wrote To Zee Palma Patient advised per message below. She states that she takes Senna QHS and is having daily BMs once a day. PT states that she also takes fiber and prune juice to help. States that she continues having constant pain 05/11. She was again advised to go to the ER if pain worsens. She verbalized understanding. On 07/18/25 @ 14:53 Zee Palma Wrote To Zee Palma (2) Please call Diana and tell her that the x-ray shows that her bowels are not moving appropriately. I think she needs to take her senna again, and should probably go to a clear liquid diet for couple of days until she has a bowel movement. If the pain gets worse then she should go to the ER, because sometimes this can be a surgical emergency. X-ray 07/18/2025 IMPRESSION: Gas-filled small and large bowel is suggestive of an ileus. Focally gas-distended loop of bowel right of midline on the supine view has a pattern most consistent with a haustral fold indicating that the loop is gas-filled colon rather than dilated small bowel. However, there is a bird beak morphology at the inferior and that can be seen with a volvulus. However, the lumen dilation is usually more pronounced with a colonic volvulus. Correlate clinically. TODAY'S VISIT Cypriot Mansi Fried [facility] Medical History (Updated 08/09/25 @ 12:08 by MARICRUZ Melgar) History of obstruction of large intestine Epigastric pain Right flank pain Migraine Paresthesia of skin Tension headache MCI (mild cognitive impairment) Peripheral neuropathy Breast cancer Primary osteoarthritis of right hand Right shoulder pain Rotator cuff tendinitis Arthritis of right shoulder region Right hand pain Breast cancer, right Status post radiation therapy Anemia Diarrhea Depression Somatization disorder Migraine equivalent syndrome Anxiety Periodontal disease Fibromyalgia Surgical History H/O hand surgery History of esophagogastroduodenoscopy (EGD) History of lumpectomy Hx of section Hx of shoulder surgery Hx of colonoscopy Family History Mother HTN (hypertension) Sister Breast cancer Bone cancer Colon polyps Sister Osteoporosis Hypercholesteremia Colon polyps Social History Household Members: None Housing: Apartment Are you a primary primary care nurse practitioner to a significant other at home: No Do you presently have visiting nurse or other home services: No Alcohol intake: never Patient Tobacco Use Status: Former Tobacco user Years Smoked: 3 service: No Current occupational status: disabled 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 Review of Systems Const Denies fatigue, Denies fever(s), Denies night sweats, Denies poor appetite and Reports weight loss ENT Reports Normal hearing present, Denies dental pain, Denies dysphagia, Denies hearing loss, Denies mouth pain, Denies odynophagia, Denies throat swelling, Denies tongue swelling and Reports other (Dentition adequate) Card Reports no additional complaints Resp Reports no additional complaints GI Details: Reports abdominal pain, Denies melena, Denies bloating, Denies hematochezia, Reports constipation, Denies GI cramping, Denies dysphagia, Denies excessive flatus, Denies early satiety, Reports heartburn, Reports diarrhea, Denies nausea, Denies odynophagia, Denies vomiting and Denies hematemesis Skin/Breast Denies pruritus, Denies lesions, Denies rash and Denies jaundice Neuro Reports Normal hearing present and Denies Abnormal speech present Endo Denies fatigue Aller/Immun Denies throat swelling and Denies tongue swelling Physical Exam Vital Signs: Last Vital Signs Pulse 78 08/09/25 11:52 BP 97/52 L 08/09/25 11:52 BMI result Body Mass Index 19.9 Const General: cooperative, no acute distress, well developed and well groomed Nutritional Appearance: average body habitus and well nourished Orientation/consciousness: oriented to person, oriented to place and oriented to time Limitations: language barrier and ambulation with cane HEENT Head: Yes normocephalic and Yes atraumatic Eyes General: appearance normal, both eyes and all related structures Pupils: Equal, round and reactive pupils present Neck Neck: Yes normal visual inspection and Yes no lymphadenopathy Thyroid: Thyroid normal Resp Effort & Inspection: normal respiratory effort and able to speak in complete sentences Auscultation: clear to auscultation bilaterally Cardio Rate: regular rate Rhythm: regular rhythm Heart sounds: Normal, physiologic split S2 sound present Peripheral pulses: radial pulses present and posterior tibial pulses present GI Inspection: No distended and No Abdominal panniculus present Palpation (GI): Soft to palpation, nontender, no guarding, not rigid and No hepatosplenomegaly present Percussion: Yes normal to percussion Auscultation: normal bowel sounds Rectal Exam - Female: deferred Skin General skin exam: no rashes or lesions noted, turgor normal, skin not dry, no jaundice, No spider nevi and no striae Rashes: no rashes Nails: normal Neuro General: oriented to person, oriented to place and oriented to time Cranial nerves: Yes Equal, round and reactive pupils present and Yes Normal hearing present Speech: No Abnormal speech present Extrem General: Yes normal to inspection, No clubbing, No cyanosis and No edema Psych Appearance: grossly normal and well kempt Mental Status: mental status grossly normal Speech and movement: Normal speech and movement present Affect: normal affect Attitude: cooperative Thought process: Normal thought process present and not confabulating Thought content: Normal thought content present Insight: Limited insight present (Psych) Judgement: Limited judgement present (Psych) Assessment & Plan Assessment & Plan (1) Ileus: Code(s): K56.7 - Ileus, unspecified Category: Medical (2) GERD (gastroesophageal reflux disease): Code(s): K21.9 - Gastro-esophageal reflux disease without esophagitis Category: Medical (3) Irritable bowel syndrome with both constipation and diarrhea: Code(s): K58.2 - Mixed irritable bowel syndrome Category: Medical (4) RUQ abdominal pain: Comment: No cause found in the GI system, she thinks she has fatty liver but with normal transaminases and a recent CT showing an absolutely normal liver this is not what is causing her problem aeb Code(s): R10.11 - Right upper quadrant pain Category: Medical Plan She continues on her omeprazole and famotidine, fiber supplement, Colace, dicyclomine and senna. Unfortunately, she did not exercise personal judgment about when to advance her diet after we told her to go on clear liquids until the ileus resolves. She was also instructed to go to the ER if symptoms worsened which she did not. I explained to her in great detail in case this ever happens again that the idea is to go on clear liquids until the pain resolves and then slowly reintroduce diet as tolerated. She is quite perseverates on the fact that she feels she did not get clear instructions, but unfortunately she also called on a day when I was out of the office and got some confusing information from a colleague who is not as acquainted with her case. At this time she is not taking the senna but she is taking her fiber. Her pain has mostly resolved but she still has some lingering soreness in the right upper quadrant. I believe this will heal in time. She had another obstruction in 2022. She wants to know why this is happening to her. I tell her that we have probably can not answer that question as usually when people have this sort of problem in his a movement disorder of the colon. It can be caused by medication affects, injury to the colon from surgeries, or interruption of blood flow to the colon. We may never know the exact cause. It is important that she make sure she is moving her bowels daily and should the pain return she should go on a clear liquid diet and notify inappropriate health care provider. At this point we will get a repeat x-ray to see how well she has cleared. Return office visit in 6 weeks Orders: Orders XR abdomen w decubitus Today K56.7 - Ileus, unspecified Coding Level of Care Code Est Pt Level 3 (75371) Diagnoses Ileus K56.7 GERD (gastroesophageal reflux disease) K21.9 Irritable bowel syndrome with both constipation and diarrhea K58.2 RUQ abdominal pain R10.11
== END 2025-08-09 12:50 | disposition home or self-care (01) ==
LOC: HO.HGI 11:48
PROVIDERS: PCP Internal Medicine; Visit Provider Nurse Practitioner
DX: K56.7 Ileus, unspecified (principal); K21.9 Gastro-esophageal reflux disease without esophagitis; K58.2 Mixed irritable bowel syndrome; R10.11 Right upper quadrant pain
CPT/HCPCS: 99213

== ENCOUNTER → 2025-08-09 11:48 | Outpatient (BNVA) | payer MEDICAID, SELFPAY | PROVIDERS: PCP Internal Medicine; Visit Provider Nurse Practitioner | DX: K21.9 Gastro-esophageal reflux disease without esophagitis (principal); K58.2 Mixed irritable bowel syndrome; R10.11 Right upper quadrant pain; K56.7 Ileus, unspecified | CPT/HCPCS: 99212 ==

== ENCOUNTER 2025-08-16 11:01 | Outpatient (REF) | payer MEDICAID, SELFPAY ==
--- NOTE | ~2025-08-16 | XR_ITS ---
EXAMINATION: XR ABDOMEN COMPLETE CLINICAL INDICATION: K56.7 - Ileus, unspecified COMPARISON: July 18, 2025 TECHNIQUE: AP views in supine and semiupright position of the abdomen. FINDINGS: Scattered air-fluid levels in the right lower abdomen. Mild prominent proximal small bowel loops. There is gas in the splenic colonic flexure. No free air beneath the diaphragm. Vascular clips overlapping the right lower thorax probably in the breast. XR/XR abdomen min 2V IMPRESSION: Ileus versus partial/intermittent distal bowel obstruction. No acute intra-abdominal process should be considered. Electronically signed by: Steven Coreas MD 08/16/2025 11:31 AM EDT
--- OUTSIDE RECORDS SUMMARY | 2025-08-16 13:36 | XMS_ITS | Encounter Summary ---
Author Organization [employer] Address [address] [place] [address] [address] [place] [address] Care Team Providers Care Director Executive Communications Name Role Phone Umm Coley MD Primary Care Provider + West Meier RN Unavailable [phone] West Meier RN Unavailable [phone] Shannan Covington Unavailable Reason for Visit * Reason Onset Date Comments appt 01/08/2024 Encounter Details Date Type Department Care Team (Late st Contact Info) Description 01/08/2024 Telephone [facility] ADULT DENTAL [address] [place], [place] [phone] Homer Strong DDS [address] [place], [place] [phone] appt Social History Tobacco Use Types Packs/Day [...] Care Team (Late st Contact Info) Description 10/13/2025 11:45 AM EST Office Visit [facility] MEDICINE [address] [place] [address] Darrell Myers MD [address] [place] [address] documented as of this encounter Visit Diagnoses Not on filedocumented in this encounter Additional Health Concerns Assessment Noted Time PHQ-9 Depression Total Score: 21 024 11:31 AM EST documented as of this encounter Care Teams Director Executive Communications Relationship Specialty Start Date End Date Umm Coley MD [address] [place] [address] PCP - General Family Medicine 10/31/16 West Meier RN [address] [place] [address] Machine Feeder Raw StockSenior Linux Systems Engineer 01/12/25 04/25/25 West Meier RN [address] [place] [address] Registered Nurse Family Medicine 05/10/25 Shannan Covington 06/08/25 06/08/25 Eva Nunez Machine Feeder Raw Stock 04/05/24 07/06/24 [facility] 05/11/24 11/17/24 [facility] 11/14/24 01/17/25 [employer] 12/08/24 [facility] 05/18/25 documented as of this encounter
--- OUTSIDE RECORDS SUMMARY | 2025-08-16 13:36 | XMS_ITS | Encounter Summary ---
Author Organization [employer] Address [address] [place] [address] [address] [place] [address] Care Team Providers Care Pond Supervisor Name Role Phone Umm Coley MD Primary Care Provider + West Meier RN Unavailable [phone] Reason for Visit * Reason Onset Date Comments Med Refill 06/28/2025 Encounter Details Date Type Department Care Team (Late st Contact Info) Description 06/28/2025 Telephone [facility] MEDICINE [address] [place], [place] [phone] Umm Coley MD [address] [place], [place] [phone] Med Refill Social History Tobacco Use Types [...] MCG (1999) capsule To be sent to: [facility]/pharmacy #[id number] [place] - [address] [place] [address] documented in this encounter Plan of Treatment Upcoming Encounters Date Type Department Care Team ([facility] st Contact Info) Description 10/13/2025 11:45 AM EST Office Visit [facility] MEDICINE [address] [place] [address] Darrell Myers MD [address] [place] [phone] documented as of this encounter Visit Diagnoses Not on filedocumented in this encounter Additional Health Concerns Assessment Noted Time PHQ-9 Depression Total Score: 10 024 9:17 AM EDT documented as of this encounter Care Teams Pond Supervisor Relationship Specialty Start Date End Date Umm Coley MD [address] [place] [address] PCP - General Family Medicine 10/31/16 West Meier, BEBA [address] [place] [address] Registered Nurse Family Medicine 05/10/25 [facility] 05/18/25 documented as of this encounter
--- OUTSIDE RECORDS SUMMARY | 2025-08-16 13:36 | XMS_ITS | Encounter Summary ---
Author Organization [employer] Address [address] [place] [address] 7[address] [place] [address] Care Team Providers Care Insurance Biller Name Role Phone Umm Coley MD Primary Care Provider + West Meier RN Unavailable [phone] West Meier RN Unavailable [phone] Shannan Covington Unavailable Reason for Visit * Reason Onset Date Comments Dr. Gonzalez conversation PCP/cleared for tx?? Encounter Details Date Type Department Care Team ([facility] st Contact Info) Description 03/28/2025 Telephone [facility] ADULT DENTAL [address] [place], [place] [phone] Johnny Gonzalez, WILIAN [address] [place], [place] [phone] Dr. Gonzalez conversation PCP/cleared for tx?? Social [...] Send to both provider clinical support and assistant front office manager DR documented in this encounter Plan of Treatment Upcoming Encounters Date Type Department Care Team (Late st Contact Info) Description 10/13/2025 11:45 AM EST Office Visit [facility] MEDICINE [address] [place] [address] Darrell Myers MD [address] [place] [address] documented as of this encounter Visit Diagnoses Not on filedocumented in this encounter Additional Health Concerns Assessment Noted Time PHQ-9 Depression Total Score: 10 024 9:17 AM EDT documented as of this encounter Care Teams Insurance Biller Relationship Specialty Start Date End Date Umm Coley MD [address] [place] [address] PCP - General Family Medicine 10/31/16 West Meier, RN [address] [place] [address] Filler Machine OperatorCommand Post Craftsman 01/12/25 04/25/25 West Meier, RN [address] [place] [address] Registered Nurse Family Medicine 05/10/25 Shannan Covington 06/08/25 06/08/25 [facility] 05/18/25 documented as of this encounter
--- OUTSIDE RECORDS SUMMARY | 2025-08-16 13:36 | XMS_ITS | Encounter Summary ---
Author Organization [facility] Address [address] [place] [address] 7t [place] [address] Care Team Providers Care Director Data Architecture Name Role Phone Umm Coley MD Primary Care Provider + West Meier RN Unavailable [phone] West Meier RN Unavailable [phone] Shannan Covington Unavailable Encounter Details Date Type Department Care Team (Latest Contact Info) Description 09/16/[address] [facility] CONVERSIONS Dental, Provider, DDS Social History [...] Description 10/13/2025 11:45 AM EST Office [address] [facility] MEDICINE [address] [place], [place] [phone] Darrell Myers MD [address] [place], [place] [phone] documented as of this encounter Visit Diagnoses Not on filedocumented in this encounter Care Teams Director Data Architecture Relationship Specialty Start Date End Date Umm Coley MD [address] [place], [place] [phone] PCP - General Family Medicine 10/31/16 West Meier, BEBA [address] [place] [address] Continuous Linter Drier OperatorHealth And Safety Director 01/12/25 04/25/25 West Meier RN [address] [facility] [place] [address] Registered Nurse Family Medicine 05/10/25 Shannan Covington 06/08/25 06/08/25 Eva Nunez Continuous Linter Drier Operator 04/05/24 07/06/24 [facility] 05/11/24 11/17/24 [facility] 11/14/24 01/17/25 [facility] 12/08/24 [facility] 05/18/25 documented as of this encounter
--- OUTSIDE RECORDS SUMMARY | 2025-08-16 13:36 | XMS_ITS | Encounter Summary ---
Author Organization [employer] Address [address] [place] [address] 7t [place] [address] Care Team Providers Care Supervisor Paper Testing Name Role Phone Umm Coley MD Primary Care Provider + West Meier RN Unavailable [phone] West Meier RN Unavailable [phone] Shannan Covington Unavailable Encounter Details Date Type Department Care Team (Late st Contact Info) Description 11/03/2022 Orders Only [facility] MEDICINE [address] [place], [place] [phone] Umm Coley MD [address] [place], [place] [phone] Osteopenia after menopause (Primary Dx) Social History [...] Description 10/13/2025 11:45 AM EST Office Visit [facility] MEDICINE [address] [place], [place] [phone] Darrell Myers MD [address] [place], [place] [phone] Scheduled Orders Name Type Priority Associated Diagnoses Orde r Schedule Vitamin D, 25-Hydroxy, Total, Immunoassay Lab Routine Osteopenia after menopause Expected: 11/03/2022 (Approximate), Expires: 11/03/2023 PTH, Intact (ICMA) And Ionized Calcium Lab Routine Osteopenia after menopause Expected: 11/03/2022 (Approximate), Expires: 11/03/2023 documented as of this encounter Visit Diagnoses Diagnosis Osteopenia after menopause- Primary documented in this encounter Care Teams Supervisor Paper Testing Relationship Specialty Start Date End Date Umm Coley MD [address] [place], [place] [phone] PCP - General Family Medicine 10/31/16 West Meier, RN [address] [place] [address] Child And Adolescent PsychologistGm Mobile 01/12/25 04/25/25 West Meier, RN [address] [place] [address] Registered Nurse Family Medicine 05/10/25 Shannan Covington 06/08/25 06/08/25 Eva Nunez Child And Adolescent Psychologist 04/05/24 07/06/24 [facility] 05/11/24 11/17/24 [facility] 11/14/24 01/17/25 [place] 12/08/24 [facility] 05/18/25 documented as of this encounter
--- OUTSIDE RECORDS SUMMARY | 2025-08-16 13:36 | XMS_ITS | Encounter Summary ---
Author Organization [employer] Address [address] [place] [address] [address] [place] [address] Care Team Providers Care Rn Security Name Role Phone Umm Coley MD Primary Care Provider + West Meier RN Unavailable [phone] Reason for Visit * Reason Comments Med Refill Encounter Details Date Type Department Care Team (Late st Contact Info) Description 07/06/2025 Refill [facility] MEDICINE [address] [place], [place] [phone] Umm Coley MD [address] [place], [place] [phone] Social History Tobacco Use Types Packs/Day Years [...] Description 10/13/2025 11:45 AM EST Office Visit [facility] MEDICINE [address] [place] [address] Darrell Myers MD [address] [place] [address] documented as of this encounter Visit Diagnoses Not on filedocumented in this encounter Additional Health Concerns Assessment Noted Time PHQ-9 Depression Total Score: 10 024 9:17 AM EDT documented as of this encounter Care Teams Rn Security Relationship Specialty Start Date End Date Umm Coley MD [address] [place] [address] PCP - General Family Medicine 10/31/16 West Meier, BEBA [address] [place] [address] Registered Nurse Family Medicine 05/10/25 [facility] 05/18/25 documented as of this encounter
--- OUTSIDE RECORDS SUMMARY | 2025-08-16 13:36 | XMS_ITS | Encounter Summary ---
Author Organization [facility] Address [address] [place] [address] 7t [place] [address] Care Team Providers Care [employer] Supervisor Name Role Phone Umm Coley MD Primary Care Provider + West Meier RN Unavailable [phone] West Meier RN Unavailable [phone] Shannan Covington Unavailable Encounter Details Date Type Department Care Team (Latest Contact Info) Description 03/13/2022 Abstract [facility] CONVERSIONS Dental, Provider, DDS Social [...] Description 10/13/2025 11:45 AM EST Office Visit [facility] MEDICINE [address] [place], [place] [phone] Darrell Myers MD [address] [place], [place] [phone] documented as of this encounter Visit Diagnoses Not on filedocumented in this encounter Care Teams [employer] Supervisor Relationship Specialty Start Date End Date Umm Coley MD [address] [place], [place] [phone] PCP - General Family Medicine 10/31/16 West Meier, BEBA [address] [place] [address] Program AnalystSupervisor [employer] 01/12/25 04/25/25 West Meier RN [address] [facility] [place] [address] Registered Nurse Family Medicine 05/10/25 Shannan Covington 06/08/25 06/08/25 Eva Nunez Program Analyst 04/05/24 07/06/24 [facility] 05/11/24 11/17/24 [facility] 11/14/24 01/17/25 [employer] 12/08/24 [facility] 05/18/25 documented as of this encounter
--- OUTSIDE RECORDS SUMMARY | 2025-08-16 13:36 | XMS_ITS | Encounter Summary ---
Author Organization [employer] Address [address] [place] [address] 7t [place] [address] Care Team Providers Care Medical Delivery Technician Name Role Phone Umm Coley MD Primary Care Provider + [place] Me[place] RN Unavailable [phone] Reason for Visit * Reason Onset Date Comments form update 06/22/2025 Encounter Details Date Type Department Care Team ([facility] st Contact Info) Description 06/22/2025 Telephone [facility] MED[facility]INE [address] [place], [place] [phone] Umm Coley MD [address] [place], [place] [phone] form update Social History Tobacco Use Types [...] 10:42 AM EDT Tc from Yahir at [facility] requesting update on form faxed over for pt plan of care Contact Yahir at [phone] documented in this encounter Plan of Treatment Upcoming Encounters Date Type Department Care Team ([facility] st Contact Info) Description 10/13/2025 11:45 AM EST Office Visit [facility] [address] [place] [address] [place] [address] Darrell Myers MD [address] [place] [address] documented as of this encounter Visit Diagnoses Not on filedocumented in this encounter Additional Health Concerns Assessment Noted Time PHQ-9 Depression Total Score: 10 024 9:17 AM EDT documented as of this encounter Care Teams Medical Delivery Technician Relationship Specialty Start Date End Date Umm Coley MD [address] [place] [address] PCP - General Family Medicine 10/31/16 West Meier, BEBA [address] [place] [id number] Registered Nurse Family Medicine 05/10/25 [facility] 05/18/25 documented as of this encounter
--- OUTSIDE RECORDS SUMMARY | 2025-08-16 13:36 | XMS_ITS | Encounter Summary ---
Author Organization [facility] Address [address] [place] [address] 7t [place] [address] Care Team Providers Care Principal Archaeologist Name Role Phone Umm Coley MD Primary Care Provider + West Meier RN Unavailable [phone] [place] Meier RN Unavailable [phone] Shannan Covington Unavailable Encounter Details Date Type Department Care Team (Late st Contact Info) Description 09/24/2022 Abstract [facility] ADULT DENTAL [address] [place], [place] [phone] Dental, Provider, DDS Social History Tobacco Use [...] Description 10/13/2025 11:45 AM EST Office Visit [facility] MEDICINE [address] [place], [place] [phone] Darrell Myers MD [address] [place], [place] [phone] documented as of this encounter Procedures Procedure [...] filedocumented in this encounter Care Teams Principal Archaeologist Relationship Specialty Start Date End Date Umm Coley MD [address] [place] [address] PCP - General Family Medicine 10/31/16 West Meier RN [address] [place] [address] Splicer HelperGeneral Clerk 01/12/25 04/25/25 West Meier, RN [address] [place] [address] Registered Nurse Family Medicine 05/10/25 Shannan Covington 06/08/25 06/08/25 Eva Nunez Splicer Helper 04/05/24 07/06/24 [facility] 05/11/24 11/17/24 [facility] 11/14/24 01/17/25 [employer] 12/08/24 [facility] 05/18/25 documented as of this encounter
--- OUTSIDE RECORDS SUMMARY | 2025-08-16 13:36 | XMS_ITS | Clinical Summary ---
Author Organization [employer] Address [address] [place] [address] [address] [place] [address] Care Team Providers Care Guard Manager Name Role Phone Shalonda Coley MD Primary Care Provider + [place] RN Unavailable [phone] Allergies Active Allergy Reactions Criticality Noted [...] Active Problems Problem Noted Date Diagnosed Date Radiation fibrosis of lung 08/10/2025 Assessment & Plan (08/10/2025 3:36 PM EDT): Sp breast CA chemotherapy toxicity, follow-up with solution developer. Doing better on Symbicort daily, has follow-up with solution developer next month. She is a non-smoker, she declines influenza COVID or PCV immunization today. Advised to have them and RSV at earliest convenience at a local pharmacy Myocardiopathy ([facility]) 08/10/2025 Assessment & Plan (08/10/2025 3:25 PM EDT): Apparently related to breast cancer chemo therapy toxicity more than 10 years ago, seem to have significantly improved over time and as of last appointment with Dr. Yoo on May 2025, or her recent workup in 2023 was negative for ACS or CHF as a cause of LIU (echo on 05/03/24 didn't showed any significant valvulopahty, only showed anterolateral and apical hypokinesis). I will order echocardiogram and follow-up at next visit, patient may need a new referral by May 2026. We had discussed about optimization of cardiovascular RF Hearing loss of right ear 08/10/2025 Assessment & Plan (08/10/2025 3:25 PM EDT): Order hearing test Vitamin D deficiency 08/10/2025 Assessment & Plan (08/10/2025 3:26 PM EDT): Last vitamin D levels were within normal limits, I had advised patient to increase vitamin D intake and outdoor exercise daily for at least 50 minutes. I gave her information about keeping normal vitamin D levels. Continue all vitamin D supplementation at this time and will follow-up vitamin D levels in May 2026 Wrist fracture, closed, righ t, with routine healing, subsequent encounter 08/10/2025 Assessment & Plan (08/10/2025 3:42 PM EDT): On January 2025, status post ORIF, doing well Continue wearing hand brace especially at night, continue OT exercises and rehabilitation at home To consult with orthopedics as needed and follow-up with rheumatology for now. Encounter for monitoring of patient compliance in drug treatment program 12/27/2024 Assessment & Plan (05/02/2025 3:06 PM EDT): Patient is medication administration by nurse and pharmacal location, she is aware that it may take couple of visits until new VNA is acquainted with all her medications. She will continue psych medication as per psych prescriber at [facility]. She is on Colace daily for [...] regarding medication management by current VNA services ([facility]). I asked her if she [...] her on a VNA service. Will ask [facility] VNA service to send a [...] of left knee 08/09/2024 Assessment & Plan (08/10/2025 3:38 PM EDT): Rx of any new knee brace, patient lost hers. Ambulation with a cane as needed and reconsult orthopedics as needed Assessment & Plan (08/09/2024 12:23 PM EDT): [...] continue f/u with mental health provider in [facility]. Dry eye 05/16/2024 Assessment & [...] was [place] [facility] information given to pt [...] department. I gave them information about legal referee in the [place] court Will refer to direct support professional caregiver to assist with housing due to poor conditions of current apartment Pt already has a letter from counselor, will FU at next appointment Household circumstance affecting care 02/03/2023 Assessment & Plan (12/11/2023 9:49 AM EST): Pt has depression and difficulty with memory. She has a JUDGE and a VNA to manage med, pharma education. VNA can go a few times per week once a POC has been discussed and taught to pt's caregivers Assessment & Plan (04/02/2023 2:38 PM EDT): Pt continues to live in the same apartment with anxiety from recent of her neighbor. Already in contact with [facility] and team is helping her with letters for housing Assessment & Plan (02/26/2023 1:12 PM EDT): Pt lives alone, I will advise to move out to a different apartment due to increased anxiety with household circumstance Refer to [facility] Assessment & Plan (02/03/2023 2:23 [...] EST): Pt seen psychotherapist and psychiatry at [facility], needs medication management due to Hx of SA and non-compliance. No change in medications, needs to continue medication administration by VNA and keep in a lock box, pharmical education, and prevention of hospital admissions. I will call [facility] at pt's request to transfer VNA services. Assessment & Plan (02/02/2024 3:44 PM EDT): - Medication list reconciled and discussed with patient, meds are to be administered by VNA due to memory issues, risk of poor compliance. - She will continue close follow up with [facility]. I explained to patient that many of [...] Plan (02/26/2023 1:11 PM EDT): Pt seeing [facility] team every week. I counseled her to [...] we can organize the medications. Pt and JUDGE agreed with the plan of care. POC discussed with team nurse and powdered sugar supervisor. Assessment & Plan (04/28/2024 3:33 PM [...] in partial remission 03/19/2018 Assessment & Plan (08/10/2025 3:35 PM EDT): Significantly improved since implementation of new CM program, she has a new JUDGE and VNA goes daily to administer medication and thus psychoeducation. Continue close follow-up with [facility] psychiatry prescriber, she is on multiple medications for depression, anxiety and insomnia. Continue close follow-up with counselor Nyiah Whatley from [facility] psychiatrist, she feels safe at home and is able to reach out for safety Patient denies any acute or recent SI or HI Assessment & Plan (05/02/2025 3:09 PM EDT): Worsening related to external circumstances and also to lack of medications as she has not been taking medications as prescribed. As per the recent medication list requested by mental health case manager on March 2025, she was on BuSpar 15 mg 3 times daily, clonazepam twice daily as needed anxiety, mirtazapine 30 mg nightly, olanzapine 20 mg nightly, prazosin 4 mg nightly and sertraline 200 mg/day (See encounter under media on 03/03/2025). She will continue to follow [facility] for pharmacotherapy and continue to see her therapist Niyah Whatley regularly (ph#[phone]). At this time she feels safe at home and is able to reach out for safety both of her therapist, the crisis and I told her that she can come to walk-in clinic as needed worsening anxiety. No change in medications at this time, will call [facility] psychiatry for med reconciliation and VNA [...] (04/28/2024 5:25 PM EDT): Pt seen by [facility] clinician, continue psychotherapy every week. [...] she needs pharmaco education. She's followed by [facility]. I told her and JUDGE she needs to bring all her med bottles so we can go over her meds until the new VNA service is restarted. Her JUDGE is helping her as well as her daughter With meds for now. Pt feels safe. Will send new Rx if needed with prescription in slovenian so VNA can read it (one of the issues being that med rx were written in Malay and the VNA that took over didn't understand the directions). Will check with VNA service to see what current situation is, pt wants to start using a new VNA service (the one her neighbor uses, [facility], [facility]) . 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 Take naproxen or Tylenol as needed She needs a JUDGE to help her with ADLs Fibromyositis 04/15/2012 Verruca vulgaris 04/15/2012 Ductal carcinoma of right breast ([facility]) 04/02 Overview (12/24/2023): DCIS, Grade 3 Dx [address] + NEG other mets. She's Sp Right lumpectomy + Chemorx (Taxotere + Cytoxan) + XRT + Tamoxifen x 10y Assessment & Plan (08/10/2025 3:28 PM EDT): Sp Right lumpectomy on 2009+ Chemorx (Taxotere + Cytoxan) + XRT + Tamoxifen x 10y Mammogram is up-to-date, next one due on November 2025 Resolved Problems Problem Noted Date Diagnosed Date [...] (05/02/2024 5:56 PM EDT): -Followed [place] [facility] [place] - last available [...] has to reschedule pharmacological stress test in [facility] [place] amlodipine and flexeril and take Tylenol [...] Encounters Date Type Department Care Team Description 08/11/2025 Telephone [facility] [address] [place] [address] Shalonda Coley MD [facility] 08/10/2025 11:45 AM EDT Office Visit [address] [address] Shalonda Coley MD Wrist fracture, closed, right, with routine healing, subsequent encounter (Primary Dx); Radiation fibrosis of lung (CMS/HCC); Other cardiomyopathy (HCC); Ductal carcinoma of right breast (CMS/HCC) (HCC); 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); Other specified hearing loss of right ear, unspecified hearing status on contralateral side; Vitamin D deficiency; Localized osteoarthritis of left knee 08/10/2025 Travel 08/10/[address] [address] Shalonda Coley MD Chart prep 07/19/[address] [address] Shalonda Coley MD Appointment Request 07/18/2025 Orders Only [facility] External Provider, [facility] 07/14/[address] [address] Shalonda Coley MD Med Refill 07/12/2025 11:00 AM EDT Office Visit [address] [address] Shalonda Coley MD Other specified hypotension (Primary Dx) 07/12/2025 Travel 07/11/[address] [address] Shalonda Coley MD chart prep 07/10/2025 Patient Outreach [address] [address] Shalonda Coley MD Care Management (C3CM- F/U call # 3) 07/06/[address] [address] Shalonda Coley MD Nurse Triage 07/06/[address] [address] Shalonda Coley MD 06/29/[address] [address] Shalonda Coley MD Nurse Triage 06/28/[address] [address] Shalonda Coley MD Med Refill 06/28/[address] [address] Shalonda Coley MD Rash 06/26/[address] [address] Shalonda Coley MD letter 06/23/2025 11:45 AM EDT Office Visit [address] [address] Zara Johnson DO Moderate persistent asthma with acute exacerbation (Primary Dx); Pain of finger of left hand 06/23/2025 Travel 06/22/[address] [address] Shalonda Coley MD form update 06/22/[address] [address] Shalonda Coley MD Chart Prep 06/20/[address] [address] Shalonda Coley MD ER Follow-up 06/19/[address] [address] Shalonda Coley MD Nurse Triage 06/08/2025 Patient Outreach [address] [address] Shalonda Coley MD Care Management (C3CM- F/U call # 2) 06/07/[address] [address] Shalonda Coley MD Neuropathy 06/06/2025 1:00 PM EDT Office Visit [facility] [address] [place] [address] Yovani Fountain Dental calculus (Primary Dx) 05/31/2025 Telephone [facility] [address] [place] [address] Shalonda Coley MD Appointment Request 05/25/2025 Patient Outreach [address] [address] Shalonda Coley MD Care Coordination (C3 -[facility] Shannan C[place] telelphone call outreach/) 05/22/2025 Patient Outreach [facility] [address] [place] [address] Shalonda Coley MD Care Management (C3- F/U call # 1) from Last 3 Months Immunizations Immunization Administration [...] the past 12 months, has t he [place], gas, oil or water [employer] threatened to shut off services in your [...] Sign Reading Time Taken Comments Blood Pressure 98/60 08/10/2025 11:39 AM EDT Pulse 68 08/10/2025 11:39 AM EDT Temperature 36.4 C (97.5 F) 08/10/2025 11:39 AM EDT Respiratory Rate 20 08/10/2025 11:39 AM EDT Oxygen Saturation 97% 07/12/2025 11:20 AM EDT Inhaled Oxygen Concentration - - Weight 50.6 kg (111 lb 9.6 oz) 08/10/2025 11:39 AM EDT Height 157.5 cm (5' 2 ) 08/10/2025 11:39 AM EDT Body Mass Index 20.41 08/10/2025 11:39 AM EDT Plan of Treatment Upcoming Encounters Date Type Department Care Team (Late st Contact Info) Description 10/13/2025 11:45 AM EST Office Visit [facility] [address] [place] [address] Darrell Myers MD [address] [place] [address] Health Maintenance Due Date Last Done Comments [...] 01/09/2026 07/12/2025, 025 Dental X-Ray: [facility] 03/25/2026 03/24/20, 08/01/2024, 04/04/2024, Additional history exists Alcohol/Substance Use [...] Associated Diagnosis Comments XR ABDOMEN 2V+ Routine 08/16/2025 11:17 AM EDT XR HAND 3+ VIEWS BILATERAL Routine 08/07/2025 [...] Results * XR Abdomen 2 View minimum (08/16/2025 11:17 AM EDT) Only the most recent of2 resultswithin the time period is included. Anatomical Region Laterality Modality Abdomen Radiographic Kyleigh ging 08/16/2025 11:1 7 AM EDT Narrative 08/16/2025 11:34 AM EDT [address] [address] XRay Report Signed Patient: Diana Mcpherson MR#: M [id number] : 1965 Acct:[id number] Age/Sex: 60 / F ADM Date: 08/16/25 Loc: HO.XRAY Attending Dr: Zee ALCANTARA Ordering Physician: Zee Palma Date of Service: 08/16/25 Procedure(s): XR abdomen min 2V Accession Number(s): [id number] cc: Zee Palma; Shalonda Coley MD Reason for Exam: K56.7 - Ileus, unspecified EXAMINATION: XR ABDOMEN COMPLETE CLINICAL INDICATION: K56.7 - Ileus, unspecified COMPARISON: July 18, 2025 TECHNIQUE: AP views in supine and semiupright position of the abdomen. FINDINGS: Scattered air-fluid levels in the right lower abdomen. Mild prominent proximal small bowel loops. There is gas in the splenic colonic flexure. No free air beneath the diaphragm. Vascular clips overlapping the right lower thorax probably in the breast. XR/XR abdomen min 2V IMPRESSION: Ileus versus partial/intermittent distal bowel obstruction. No acute intra-abdominal process should be considered. Electronically signed by: Steven Coreas MD 08/16/2025 11:31 AM EDT RP Dictated By: Steven Gan MD Signed By: <Electronically signed by Steven Gary MD in OV> 08/16/25 1131 DD/ 1117 TD/TT: 08/16/25 1120 Hospital Clerk: Procedure Note Donotuseinterpreter, Image - 08/16/[address] [address] XRay Report Signed Patient: Diana Mcpherson LMR#: M [id number] : 1965Acct:[id number] Age/Sex: 60 / FADM Date: 08/16/25 Loc: HO.XRAY Attending Dr: Zee ALCANTARA Ordering Physician: Zee Palma Date of Service: 08/16/25 Procedure(s): XR abdomen min 2V Accession Number(s): [id number] cc: Zee Palma; Shalonda Coley MD Reason for Exam: K56.7 - Ileus, unspecified EXAMINATION: XR ABDOMEN COMPLETE CLINICAL INDICATION: K56.7 - Ileus, unspecified COMPARISON: July 18, 2025 TECHNIQUE: AP views in supine and semiupright position of the abdomen. FINDINGS: Scattered air-fluid levels in the right lower abdomen. Mild prominent proximal small bowel loops. There is gas in the splenic colonic flexure. No free air beneath the diaphragm. Vascular clips overlapping the right lower thorax probably in the breast. XR/XR abdomen min 2V IMPRESSION: Ileus versus partial/intermittent distal bowel obstruction. No acute intra-abdominal process should be considered. Electronically signed by: Steven Coreas MD 08/16/2025 11:31 AM EDT Dictated By: Steven Gan MD Signed By: <Electronically signed by Steven Gary MDin OV> 08/16/25 1131 DD/ 1117 TD/TT: 08/16/25 1120 Hospital Clerk: us [facility] External Provider IMG XR PROCEDURES Final Result * XR Hand 3+Views Bilateral (08/07/2025 12:11 PM EDT) Anatomical Region Laterality Modality Upper Extremities, Hand Bilateral Radiogra phic Imaging 08/07/2025 12:1 1 PM EDT Narrative 08/07/2025 1:08 PM EDT [address] [address] XRay Report Signed Patient: Diana Mcpherson MR#: M [id number] : 1965 Acct:[id number] Age/Sex: 60 / F ADM Date: 08/07/25 Loc: MERVAT Attending Dr: Girish Frye MD Ordering Physician: Girish Frye MD Date of Service: 08/07/25 Procedure(s): XR Hand Bilat min 3v Accession Number(s): [id number] cc: Shalonda Coley MD; Girish Frye MD [...] 08/07/25 1306 DD/ 1211 TD/TT: 08/07/25 1223 Hospital Clerk: OLYA Procedure Note Donotuseinterpreter, Image - 08/07/[address] [address] XRay Report Signed Patient: Diana Mcpherson LMR#: M [id number] : 1965Acct:[id number] Age/Sex: 60 / FADM Date: 08/07/25 Loc: HO.JUSTUSAY Attending Dr: Girish Frye MD Ordering Physician: Girish Frye MD Date of Service: 08/07/25 Procedure(s): XR Hand Bilat min 3v Accession Number(s): [id number] cc: Shalonda Coley MD; Girish Frye MD [...] 08/07/25 1306 DD/ 1211 TD/TT: 08/07/25 1223 Hospital Clerk: OLYA [facility] External Provider IMG XR PROCEDURES Final Result * XR Knee 3 Views Bilateral (08/07/2025 12:05 PM EDT) Anatomical Region Laterality Modality Lower Extremities, Knee Bilateral [facility] 08/07/2025 12:0 5 PM EDT Narrative 08/07/2025 12:34 PM EDT [address] [address] XRay Report Signed Patient: Diana Mcpherson MR#: M [id number] : 1965 Acct:[id number] Age/Sex: 60 / F ADM Date: 08/07/25 Loc: MERVAT Attending Dr: Girish Frye MD Ordering Physician: Girish Frye MD Date of Service: 08/07/25 Procedure(s): XR Knee Philip 3V Accession Number(s): [id number] cc: Shalonda Coley MD; Girish Frye MD [...] OV> 08/07/25 1232 DD/ 1205 TD/TT: 08/07/25 1223 Hospital Clerk: Procedure Note Donotuseinterpreter, Image - 08/07/[address] [address] XRay Report Signed Patient: Diana Mcpherson LMR#: M [id number] : 1965Acct:[id number] Age/Sex: 60 / FADM Date: 08/07/25 Loc: MERVAT Attending Dr: Girish Frye MD Ordering Physician: Girish Frye MD Date of Service: 08/07/25 Procedure(s): XR Knee Philip 3V Accession Number(s): [id number] cc: Shalonda Coley MD; Griish Frye MD Reason for Exam: chronic knee [...] OV> 08/07/25 1232 DD/ 1205 TD/TT: 08/07/25 1223 Hospital Clerk: OLYA [facility] External Provider IMG XR PROCEDURES Final Result * XR Thoracic Spine 2 Views (07/18/2025 1:56 PM EDT) Anatomical Region Laterality Modality Spine, T-spine Radiographic Kyleigh ging 07/18/2025 1:56 PM EDT Narrative 07/18/2025 2:18 PM EDT [place] [address] XRay Report Signed Patient: Diana Mcpherson MR#: M [id number] : 1965 Acct:[id number] Age/Sex: 60 / F ADM Date: 07/18/25 Loc: HO.ALIYA Attending Dr: Zee ALCANTARA Ordering Physician: Zee Palma Date of Service: 07/18/25 Procedure(s): XR thoracic spine 2V Accession Number(s): [id number] cc: Zee Palma; Shalonda Coley MD Reason [...] 07/18/25 1414 DD/ 1356 TD/TT: 07/18/25 1411 Hospital Clerk: Procedure Note Donotuseinterpreter, Image - 07/18/2025 [place] [address] XRay Report Signed Patient: Diana Mcpherson LMR#: M [id number] : 1965Acct:[id number] Age/Sex: 60 / FADM Date: 07/18/25 Loc: MERVAT Attending Dr: Zee ALCANTARA Ordering Physician: Zee Palma Date of Service: 07/18/25 Procedure(s): XR thoracic spine 2V Accession Number(s): [id number] cc: Zee Palma; Shalonda Coley MD Reason [...] OV> 07/18/25 1414 DD/ 1356 TD/TT: 07/18/25 141 Hospital Clerk: [facility] External Provider IMG XR PROCEDURES Edited Result - Final * XR Ribs 2 Views Right (07/18/2025 1:50 PM EDT) Anatomical Region Laterality Modality Rib, Abdomen Right Radiographic Kyleigh ging 07/18/2025 1:50 PM EDT Narrative 07/18/2025 2:19 PM EDT [place] [address] XRay Report Signed Patient: Diana Mcpherson MR#: M [id number] : 1965 Acct:[id number] Age/Sex: 60 / F ADM Date: 07/18/25 Loc: MERVAT Attending Dr: Zee ALCANTARA Ordering Physician: Zee Palma Date of Service: 07/18/25 Procedure(s): XR ribs RT 2V Accession Number(s): [id number] cc: Zee Palma; Shalonda Coley MD Reason [...] OV> 07/18/25 1415 DD/ 1350 TD/TT: 07/18/25 141 Hospital Clerk: Procedure Note Donotuseinterpreter, Image - 07/18/[address] [address] XRay Report Signed Patient: Diana Mcpherson LMR#: M [id number] : 1965Acct:[id number] Age/Sex: 60 / FADM Date: 07/18/25 Loc: HO.XRAY Attending Dr: Zee ALCANTARA Ordering Physician: Zee Palma Date of Service: 07/18/25 Procedure(s): XR ribs RT 2V Accession Number(s): [id number] cc: Zee Palma; Shalonda Coley MD Reason [...] OV> 07/18/25 1415 DD/ 1350 TD/TT: 07/18/25 141 Hospital Clerk: [facility] External Provider IMG XR PROCEDURES Edited Result - Final * Urinalysis w/reflex microscopic (07/18/2025 1:33 PM EDT) Color Urine Yellow [facility] Appearance Urine Clear [facility] PH 5.5 5.0 - 9.0 [facility] Glucose Urine UA Negative Negative mg/dL [facility] Urine Blood Negative Negative [facility] Specific Gomer - Urine 1.020 1.005 - 1.025 [facility] Urine Protein Negative Neg-Trace mg/dL [facility] Urine Ketones Negative Negative mg/dL [facility] Nitrite Urine Negative Negative [facility] Leukocyte Esterase Urine Negative Negative [facility] 07/18/2025 1:33 PM EDT 07/18/2025 2:15 PM EDT Narrative [facility] - 07/18/2025 2:37 PM EDT Urine, Clean Catch us Generic External Data Provider LAB URINE ORDERAB LES Final Result Performing Organization Address City/State/[facility] Co de Phone Number [facility] [address] [place] [phone] * XR Fingers 2+ Views Left (06/23/2025 12:26 PM EDT) Anatomical Region Laterality Modality Upper Extremities, Fingers Left [facility] Imaging 06/23/2025 12:2 6 PM EDT Narrative 06/23/2025 1:27 PM EDT [address] [address] XRay Report Signed Patient: Diana Mcpherson MR#: M [id number] : 1965 Acct:[id number] Age/Sex: 60 / F ADM Date: 06/23/25 Loc: HO.HHCX Attending Dr: Zara Johnson DO Ordering Physician: Zara Johnson DO Date of Service: 06/23/25 Procedure(s): XR finger LT min 2V Accession Number(s): [id number] cc: Zara Johnson DO EXAMINATION: XR FINGER, [...] 06/23/25 1324 DD/ 1226 TD/TT: 06/23/25 1310 Hospital Clerk: Procedure Note Donotuseinterpreter, Image - 06/23/2025 [place] [address] XRay Report Signed Patient: Diana Mcpherson LMR#: M [id number] : 1965Acct:[id number] Age/Sex: 60 / FADM Date: 06/23/25 Loc: HO.HHCX Attending Dr: Zara Johnson DO Ordering Physician: Zara Johnson DO Date of Service: 06/23/25 Procedure(s): XR finger LT min 2V Accession Number(s): [id number] cc: Zara Johnson DO EXAMINATION: XR FINGER, [...] 06/23/25 1324 DD/ 1226 TD/TT: 06/23/25 1310 Hospital Clerk: us Zara Johnson DO IMG XR PROCEDURES Final Resu lt * BI Mammogram Screening Tomosynthesis Bilateral (11/29/2024 8:45 AM EST) Anatomical Region Laterality Modality Breast Bilateral Mammography 11/29/2024 8:45 AM EST Narrative 12/07/2024 3:35 PM EST [facility] [address] [place] [address] Mammography Report Signed Patient: Diana Myles MR#: [id number] : 1965 Acct:[id number] Age/Sex: 59 / F ADM Date: 11/29/24 Loc: HO.MAMMO Attending Dr: Shalonda Coley MD Ordering Physician: Shalonda Coley MD Results: 2Be nign Findings Date of Service: 11/29/24 Follow Up: 1 Year From Orig ina Mammogram Procedure(s): MM tomosynthesis screening BI Accession Number(s): [id number] cc: Shalonda Coley MD EXAMINATION: MM SCREENING [...] 12/07/24 1532 DD/ 0845 TD/TT: 11/29/24 0915 Hospital Clerk: Procedure Note Donotuseinterpreter, Image - 12/07/2024 [facility] [address] [place] [address] Mammography Report Signed Patient: Diana Myles LMR#: [id number] : 1965Acct:[id number] Age/Sex: 59 / FADM Date: 11/29/24 Loc: HO.MAMMO Attending Dr: Shalonda Coley MD Ordering Physician: Shalonda Coley MDResults: 2Be nign Findings Date of Service: 11/29/24Follow Up: 1 Year From Orig inal Mammogram Procedure(s): MM tomosynthesis screening BI Accession Number(s): [id number] cc: Shalonda Coley MD EXAMINATION: MM SCREENING [...] 12/07/24 1532 DD/ 0845 TD/TT: 11/29/24 0915 Hospital Clerk: Shalonda Coley MD IMG BI PROCEDURES Edited Result - Final * (ABNORMAL) Colonoscopy (07/30/2023) Colonoscopy Abnormal( A) Normal [facility] Comment:SSL polyp Shalonda Coley MD HEALTH MAINTENANCE Final Result [facility] [address] [place] [phone] * Thinprep PAP and HPV nRNA E6/E7 (10/08/2022 9:30 AM EST) Clinical Information: None given [facility] LMP: NONE GIVEN [facility] Prev. PAP: NONE GIVEN [facility] Prev. BX: NONE GIVEN [facility] SOURCE: None given [facility] Statement Of Adequacy: SATISFACTORY FOR EVALUATION Age and/or menstrual status not provided [facility] Interpretation/Re sult: [facility] Comment: Negative for intraepithelial lesion or malignancy. Atrophic pattern; predominantly parabasal cells Acrobatic Dancer: [facility] Comment: DMM, CT(ASCP) CT screening location: [address] [address] Review Acrobatic Dancer: [facility] Comment: MAA, CT(ASCP) CT screening location: [address] [address] (Always Message) [facility] [employer] [place] [employer] Comment: EXPLANATORY NOTE: The Pap is a [...] HPV nRNA E6/E7 Not Detected Not Detected [facility] Comment: Methodology: Pickle Maker-Mediated Amplification This assay detects E6/E7 viral messenger RNA (mRNA) from 14 high-risk HPV types (16,18,31,33,35,39,45,51,52,56,58,59,66,68). Cervical sources are required for HPV testing. If a vaginal source from a patient who has had a total hysterectomy with removal of cervix was submitted, please contact the testing laboratory for alternative testing options. For additional information, please refer to http://education.Luxr/faq/HRL113i0 (This link if provided for information/ educational purposes only.) 10/08/2022 9:3 0 AM EST 10/10/2022 1:07 AM EST Narrative [facility] - 10/14/2022 7:08 PM EST FASTING: UNKNOWN [facility] PATHOLOGY ORDERABLES Final Result [address], [place] [address] [employer] [facility] [address] [place] [address], [facility] [place] [address] * HIV AB/AG (04/30/2022 11:28 AM EDT) Pathologist [facility] HIV AB/AG Nonreactive Nonreactive [facility] [...] of detection of this assay. The [employer] Drafting Officer HIV Ag/Ab Combo assay result and supplemental [...] Hepatitis B Core Antibody Nonreactive Nonreactive [facility] 04/30/2022 11:2 8 AM EDT us Shalonda Coley MD HISTORICAL/NON ORDERABLE LABS Final Result [facility] [address] from Last 3 Months or Most Recently Relevant to Health Maintenance Insurance [employer] C[facility] [place] ADULT Care Teams Guard Manager Relationship Specialty Start Date End Date Shalonda Coley MD [address] [place] [address] PCP - General Family Medicine 10/31/16 West Meier, BEBA [address] [place] [address] Registered Nurse Family Medicine 05/10/25 [facility] 05/18/25
--- OUTSIDE RECORDS SUMMARY | 2025-08-16 13:36 | XMS_ITS | Encounter Summary ---
Author Organization [facility] Address [address] [place] [address] 7t [place] [address] Care Team Providers Care Business Enterprise Officer Name Role Phone Umm Coley MD Primary Care Provider + West Meier RN Unavailable [phone] West Meier RN Unavailable [phone] Shannan Covington Unavailable Encounter Details Date Type Department Care Team (Latest Contact Info) Description 11/14/2019 Abstract [facility] CONVERSIONS Dental, [...] Description 10/13/2025 11:45 AM EST Office Visit [facility] MEDICINE 230 [place], [place] [phone] Darrell Myers MD 230 [place], [place] [phone] documented as of this encounter Visit Diagnoses Not on filedocumented in this encounter Care Teams Business Enterprise Officer Relationship Specialty Start Date End Date Umm Coley MD 230 [place], [place] [phone] PCP - General Family Medicine 10/31/16 West Meier, BEBA [address] [place] [place] [address] Forensic Audit ExpertTop Carrier 01/12/25 04/25/25 West Meier RN [address] [facility] [place] [address] Registered Nurse Family Medicine 05/10/25 Shannan Covington 06/08/25 06/08/25 Eva Nunez Forensic Audit Expert 04/05/24 07/06/24 [facility] 05/11/24 11/17/24 [facility] 11/14/24 01/17/25 [employer] 12/08/24 [facility] 05/18/25 documented as of this encounter
--- OUTSIDE RECORDS SUMMARY | 2025-08-16 13:36 | XMS_ITS | Encounter Summary ---
Author Organization [employer] Address [address] [place] [address] 7t [place] [address] Care Team Providers Care Broom Man Name Role Phone Umm Coley MD Primary Care Provider + West Meier RN Unavailable [phone] Reason for Visit * Reason Onset Date Comments Appointment Request 07/19/2025 Encounter Details Date Type Department Care Team ([facility] st Contact Info) Description 07/19/2025 Telephone [facility] MEDICINE 230 [place], [place] [phone] Umm Coley MD 230 [place], [place] [phone] Appointment Request Social History Tobacco Use Types [...] Description 10/13/2025 11:45 AM EST Office Visit [facility] MEDICINE 230 [place] [address] Darrell Myers MD 230 [place] [address] documented as of this encounter Visit Diagnoses Not on filedocumented in this encounter Additional Health Concerns Assessment Noted Time PHQ-9 Depression Total Score: 18 025 12:18 PM EDT documented as of this encounter Care Teams Broom Man Relationship Specialty Start Date End Date Umm Coley MD 230 [place] [address] PCP - General Family Medicine 10/31/16 West Meier, BEBA [address] [place] [address] Registered Nurse Family Medicine 05/10/25 [facility] 05/18/25 documented as of this encounter
--- OUTSIDE RECORDS SUMMARY | 2025-08-16 13:37 | XMS_ITS | Encounter Summary ---
Author Organization [facility] Address [address] [place] [address] 7t [place] [address] Care Team Providers Care Powder Mill Operator Name Role Phone Umm Coley MD Primary Care Provider + West Meier RN Unavailable [phone] West Meier RN Unavailable [phone] Shannan Covington Unavailable Reason for Visit * Reason Comments Med Refill Encounter Details Date Type Department Care Team (Late st Contact Info) Description 08/01/2023 Refill [facility] [address] [place], [place] [phone] Umm Coley MD 230 [place], [place] [phone] Social History Tobacco Use Types Packs/Day Years [...] Description 10/13/2025 11:45 AM EST Office Visit [facility] [address] [place] [address] Darrell Myers MD 230 [place], [place] [phone] documented as of this encounter Visit Diagnoses Not on filedocumented in this encounter Additional Health Concerns Assessment Noted Time PHQ-9 Depression Total Score: 12 023 1:58 PM EDT documented as of this encounter Care Teams Powder Mill Operator Relationship Specialty Start Date End Date Umm Coley MD 230 [place] [address] PCP - General Family Medicine 10/31/16 West Meier, RN 505 [place] [address] Soft Sugar Operator HeadEditor Index 01/12/25 04/25/25 West Meier RN 505 [place] [address] Registered Nurse Family Medicine 05/10/25 Shannan Covington 06/08/25 06/08/25 Eva Nunez Soft Sugar Operator Head 04/05/24 07/06/24 [facility] 05/11/24 11/17/24 [facility] 11/14/24 01/17/25 [employer] 12/08/24 [facility] 05/18/25 documented as of this encounter
--- OUTSIDE RECORDS SUMMARY | 2025-08-16 13:37 | XMS_ITS | Encounter Summary ---
Author Organization [employer] Address [address] [place] [address] 7t [place] [address] Care Team Providers Care Bed Worker Name Role Phone Umm Coley MD Primary Care Provider + West Meier RN Unavailable [phone] West Meier RN Unavailable [phone] Shannan Covington Unavailable Reason for Visit * Reason Onset Date Comments pre med prior to dental treatment 08/23/2024 Encounter Details Date Type Department Care Team ([facility] st Contact Info) Description 08/23/2024 Telephone [facility] ADULT DENTAL 505 [place], [place] [phone] Johnny Gonzalez DMD 505 [place], [place] [phone] pre med prior to dental treatment Social [...] spoke with Nina in the front end specialist with a run through of what was happening with the patient and she stated she would also send something to provider for clarificationDR documented in this encounter Plan of Treatment Upcoming Encounters Date Type Department Care Team (Late st Contact Info) Description 10/13/2025 11:45 AM EST Office Visit [facility] MEDICINE 230 [place] [address] Darrell Myers MD 230 [place] [address] documented as of this encounter Visit Diagnoses Not on filedocumented in this encounter Additional Health Concerns Assessment Noted Time PHQ-9 Depression Total Score: 10 024 9:17 AM EDT documented as of this encounter Care Teams Bed Worker Relationship Specialty Start Date End Date Umm Coley MD 230 [facility] [place], [place] [phone] PCP - General Family Medicine 10/31/16 West Meier RN 505 [place] [address] Palliative Care Nurse PractitionerChain Repairer 01/12/25 04/25/25 West Meier RN 505 [place] [address] Registered Nurse Family Medicine 05/10/25 Shannan Covington 06/08/25 06/08/25 [facility] 05/11/24 11/17/24 [facility] 11/14/24 01/17/25 [employer] 12/08/24 [facility] 05/18/25 documented as of this encounter
--- OUTSIDE RECORDS SUMMARY | 2025-08-16 13:37 | XMS_ITS | Encounter Summary ---
Author Organization [employer] Address [address] [place] [address] 7t [place] [address] Care Team Providers Care College Physics Instructor Name Role Phone Umm Coley MD Primary Care Provider + West Meier RN Unavailable [phone] West Meier RN Unavailable [phone] Shannan Covington Unavailable Reason for Visit * Reason Onset Date Comments Appointment 06/15/2023 Encounter Details Date Type Department Care Team (Late st Contact Info) Description 06/15/2023 Telephone [facility] 230 [place] [address] Johnny Gonzalez, WILIAN [address] [place], [place] [phone] Appointment Social History Tobacco Use Types Packs/Day [...] Description 10/13/2025 11:45 AM EST [facility] 230 [place] [address] Darrell Myers MD 230 [place] [address] documented as of this encounter Visit Diagnoses Not on filedocumented in this encounter Additional Health Concerns Assessment Noted Time PHQ-9 Depression Total Score: 12 023 1:58 PM EDT documented as of this encounter Care Teams College Physics Instructor Relationship Specialty Start Date End Date Umm Coley MD 230 [place] [address] PCP - General Family Medicine 10/31/16 West Meier RN 505 [place] [address] Sail RepairerNaturalization Examiner 01/12/25 04/25/25 West Meier RN [address] [place] [address] Registered Nurse Family Medicine 05/10/25 Shannan Covington 06/08/25 06/08/25 Eva Nunez Sail Repairer 04/05/24 07/06/24 [facility] 05/11/24 11/17/24 [facility] 11/14/24 01/17/25 [employer] 12/08/24 [facility] 05/18/25 documented as of this encounter
--- OUTSIDE RECORDS SUMMARY | 2025-08-16 13:37 | XMS_ITS | Encounter Summary ---
Author Organization [employer] Address [address] [facility] 7t [place] [address] Care Team Providers Care Ic Design Manager Name Role Phone Umm Coley MD Primary Care Provider + West Meier RN Unavailable [phone] Reason for Visit * Reason Onset Date Comments DME 08/11/2025 Encounter Details Date Type Department Care Team ([facility] st Contact Info) Description 08/11/2025 Telephone [facility] MEDICINE 230 [place], [place] [phone] Umm Coley MD 230 [place], [place] [phone] DME Social History Tobacco Use Types Packs/Day Years [...] encounter Miscellaneous Notes * Telephone Encounter - Lucille Lemon [place] - 08/11/2025 10:27 AM EDT DME RX for L knee Brace generated and placed on providers desk for signature. documented in this encounter Plan of Treatment Upcoming Encounters Date Type Department Care Team (Late st Contact Info) Description 10/13/2025 11:45 AM EST Office Visit [facility] MEDICINE 230 [place] [address] Darrell Myers MD [address] [place] [address] documented as of this encounter Visit Diagnoses Not on filedocumented in this encounter Additional Health Concerns Assessment Noted Time PHQ-9 Depression Total Score: 18 07/12/ 025 12:18 PM EDT documented as of this encounter Care Teams Ic Design Manager Relationship Specialty Start Date End Date Umm Coley MD 230 [place] [address] PCP - General Family Medicine 10/31/16 West Meier RN [address] [place] [address] Registered Nurse Family Medicine 05/10/25 [facility] 05/18/25 documented as of this encounter
--- OUTSIDE RECORDS SUMMARY | 2025-08-16 13:37 | XMS_ITS | Encounter Summary ---
Author Organization [facility] [facility] Address [address] [place] [address] 7t [place] [address] Care Team Providers Care Well Reactivator Operator Name Role Phone Umm Coley MD Primary Care Provider + West Meier RN Unavailable [phone] West Meier RN Unavailable [phone] Shannan Covington Unavailable Reason for Visit * Reason Comments Med Refill Encounter Details Date Type Department Care Team (Late st Contact Info) Description 06/10/2023 Refill [facility] MEDICINE 230 [place], [place] [phone] Yenny Morris MD 230 [place], [place] [phone] Rash Social History Tobacco Use Types Packs/Day [...] Description 10/13/2025 11:45 AM EST Office Visit [facility] MEDICINE 230 [place] [address] Darrell Myers MD 230 [place] [address] documented as of this encounter Visit Diagnoses Diagnosis Rash Rash and other nonspecific skin eruption documented in this encounter Additional Health Concerns Assessment Noted Time PHQ-9 Depression Total Score: 12 023 1:58 PM EDT documented as of this encounter Care Teams Well Reactivator Operator Relationship Specialty Start Date End Date Umm Coley MD 230 [place] [address] PCP - General Family Medicine 10/31/16 West Meier, RN 505 [place] [address] Oil Pit AttendantLabor Relations Worker 01/12/25 04/25/25 West Meier, RN [address] [place] [address] Registered Nurse Family Medicine 05/10/25 Shannan Covington 06/08/25 06/08/25 Eva Nunez Oil Pit Attendant 04/05/24 07/06/24 [facility] 05/11/24 11/17/24 [facility] 11/14/24 01/17/25 [employer] 12/08/24 [facility] 05/18/25 documented as of this encounter
--- OUTSIDE RECORDS SUMMARY | 2025-08-16 13:37 | XMS_ITS | Encounter Summary ---
Author Organization [facility] Address [address] [place] [address] 7t [place] [address] Care Team Providers Care Curb Setter Helper Name Role Phone Umm Coley MD Primary Care Provider + West Meier RN Unavailable [phone] West Meier RN Unavailable [phone] Shannan Covington Unavailable Encounter Details Date Type Department Care Team (Latest Contact Info) Description 11/23/2020 Abstract [facility] CONVERSIONS Dental, Provider, DDS Social History [...] Description 10/13/2025 11:45 AM EST Office Visit [facility] MEDICINE 230 [place], [place] [phone] Darrell Myers MD 230 [place], [place] [phone] documented as of this encounter Visit Diagnoses Not on filedocumented in this encounter Care Teams Curb Setter Helper Relationship Specialty Start Date End Date Umm Coley MD [address] [place], [place] [phone] PCP - General Family Medicine 10/31/16 West Meier, BEBA [address] [place] [address] Abrasive Water Jet Cutter OperatorErector Operator 01/12/25 04/25/25 West Meier RN [address] [place] [address] Registered Nurse Family Medicine 05/10/25 Shannan Covington 06/08/25 06/08/25 Eva Nunez Abrasive Water Jet Cutter Operator 04/05/24 07/06/24 [facility] 05/11/24 11/17/24 [facility] 11/14/24 01/17/25 [employer] 12/08/24 [facility] 05/18/25 documented as of this encounter
--- OUTSIDE RECORDS SUMMARY | 2025-08-16 13:37 | XMS_ITS | Encounter Summary ---
Author Organization [employer] Address [address] [place] [address] 7t [place] [address] Care Team Providers Care Center Medical And Lab Director Name Role Phone Umm Coley MD Primary Care Provider + West Meier RN Unavailable [phone] West Meier RN Unavailable [phone] Shannan Covington Unavailable Reason for Visit * Reason Comments Med Change Request Encounter Details Date Type Department Care Team (Late st Contact Info) Description 03/20/2023 Refill [facility] ADULT DENTAL 230 [place] [address] Johnny Gonzalez DMD 505 [place], [place] [phone] Social History Tobacco Use Types Packs/Day Years [...] Description 10/13/2025 11:45 AM EST Office Visit [facility] MEDICINE 230 [place], [place] [phone] Darrell Myers MD 230 [place], [place] [phone] documented as of this encounter Visit Diagnoses Not on filedocumented in this encounter Care Teams Center Medical And Lab Director Relationship Specialty Start Date End Date Umm Coley MD [address] [place], [place] [phone] PCP - General Family Medicine 10/31/16 West Meier RN 505 [place] [address] Cafeteria ServerPsychological Tests Sales Agent 01/12/25 04/25/25 West Meier RN 505 [place] [address] Registered Nurse Family Medicine 05/10/25 Shannan Covington 06/08/25 06/08/25 Eva Nunez Cafeteria Server 04/05/24 07/06/24 [facility] 05/11/24 11/17/24 [facility] 11/14/24 01/17/25 [employer] 12/08/24 [facility] 05/18/25 documented as of this encounter
--- OUTSIDE RECORDS SUMMARY | 2025-08-16 13:37 | XMS_ITS | Encounter Summary ---
Author Organization [facility] [facility] Address [address] [place] [address] 7t [place] [address] Care Team Providers Care Logging Engineer Name Role Phone Umm Coley MD Primary Care Provider + West Meier RN Unavailable [phone] West Meier RN Unavailable [phone] Shannan Covington Unavailable Reason for Visit * Reason Comments Med Refill Encounter Details Date Type Department Care Team (Late st Contact Info) Description 02/05/2023 Refill [facility] MEDICINE 230 [place], [place] [phone] Umm Coley MD [address] [place], [place] [phone] Arthritis of knee Social History Tobacco Use [...] Description 10/13/2025 11:45 AM EST Office Visit [facility] MEDICINE 230 [place] [address] Darrell Myers MD [address] [place] [address] documented as of this encounter Visit Diagnoses Diagnosis Arthritis of knee Unspecified arthropathy, lower leg documented in this encounter Care Teams Logging Engineer Relationship Specialty Start Date End Date Umm Coley MD [address] [place] [address] PCP - General Family Medicine 10/31/16 West Meier RN 505 [place] [address] Cashier GeneralRat Culturist 01/12/25 04/25/25 West Meier RN 505 [place] [address] Registered Nurse Family Medicine 05/10/25 Shannan Covington 06/08/25 06/08/25 Eva Nunez Cashier General 04/05/24 07/06/24 [facility] 05/11/24 11/17/24 [facility] 11/14/24 01/17/25 [employer] 12/08/24 [facility] 05/18/25 documented as of this encounter
--- OUTSIDE RECORDS SUMMARY | 2025-08-16 13:37 | XMS_ITS ---
Author Organization [employer] Address [address] [place] [address] 7t [place] [address] Care Team Providers Care Health Technician Hearing Name Role Phone Umm Coley MD Primary Care Provider + West Meier RN Unavailable [phone] CM Complex Status:Enrolled (Active) Start date:05/10/2025 Enrollment date:05/10/2025 Enrollment reason:Referred by provider Overview Lost contact on [employer]. Re-opening program per PCP but now on GANESH. Case Team Name Relationship Phone West Meier RN(Responsible Staff) Registered [place] [facility] [place] [phone] Continued Care and Services Coordination
--- OUTSIDE RECORDS SUMMARY | 2025-08-16 13:37 | XMS_ITS | Encounter Summary ---
Author Organization [employer] Address [address] [facility] 7t [place] [address] Care Team Providers Care Driving Teacher Name Role Phone Umm Coley MD Primary Care Provider + West Meier RN Unavailable [phone] West Meier RN Unavailable [phone] Shannan Covington Unavailable Reason for Visit * Reason Onset Date Comments Appointment 03/17/2023 Encounter Details Date Type Department Care Team (Late st Contact Info) Description 03/17/2023 Telephone [facility] ADULT DENTAL 230 [place] [address] Johnny Gonzalez, WILIAN [address] [place], [place] [phone] Appointment Social History Tobacco Use Types Packs/Day [...] Description 10/13/2025 11:45 AM EST Office Visit [facility] MEDICINE 230 [place] [address] Darrell Myers MD 230 [place] [address] documented as of this encounter Visit Diagnoses Not on filedocumented in this encounter Care Teams Driving Teacher Relationship Specialty Start Date End Date Umm Coley MD 230 [place] [address] PCP - General Family Medicine 10/31/16 West Meier RN 505 [place] [address] Hitch TechnicianCostume Mistress 01/12/25 04/25/25 West Meier RN 505 [place] [address] Registered Nurse Family Medicine 05/10/25 Shannan Covington 06/08/25 06/08/25 Eva Nunez Hitch Technician 04/05/24 07/06/24 [facility] 05/11/24 11/17/24 [facility] 11/14/24 01/17/25 [employer] 12/08/24 [facility] 05/18/25 documented as of this encounter
--- OUTSIDE RECORDS SUMMARY | 2025-08-16 13:37 | XMS_ITS | Encounter Summary ---
Author Organization [employer] Address [address] [place] [address] 7t [place] [address] Care Team Providers Care Charter Coordinator Name Role Phone Umm Coley MD Primary Care Provider + [place] Me[place] RN Unavailable [phone] West Meier RN Unavailable [phone] Shannan Covington Unavailable Reason for Visit * Reason Comments Med Refill Encounter Details Date Type Department Care Team (Late st Contact Info) Description 05/21/2023 Refill [facility] MEDICINE [address] [place], [place] [phone] Umm Coley MD [address] [place], [place] [phone] Arthritis of knee Social History Tobacco Use [...] 10/13/2025 11:45 AM EST Office Visit [facility] MEDICINE [address] [place] [address] Darrell Myers MD [address] [place], [place] [phone] documented as of this encounter Visit Diagnoses Diagnosis Arthritis of knee Unspecified arthropathy, lower leg documented in this encounter Additional Health Concerns Assessment Noted Time PHQ-9 Depression Total Score: 12 023 1:58 PM EDT documented as of this encounter Care Teams Charter Coordinator Relationship Specialty Start Date End Date Umm Coley MD [address] [place] [address] PCP - General Family Medicine 10/31/16 West Meier RN [address] [place] [address] Leather SprayerSoftware Configuration Analyst 01/12/25 04/25/25 West Meier RN [address] [place] [address] Registered Nurse Family Medicine 05/10/25 Shannan Covington 06/08/25 06/08/25 Eva Nunez Leather Sprayer 04/05/24 07/06/24 [facility] 05/11/24 11/17/24 [facility] 11/14/24 01/17/25 [employer] 12/08/24 [facility] 05/18/25 documented as of this encounter
--- OUTSIDE RECORDS SUMMARY | 2025-08-16 13:37 | XMS_ITS | Encounter Summary ---
Author Organization [employer] Address [address] [facility] 7t [place] [address] Care Team Providers Care Mussel Opener Name Role Phone Umm Coley MD Primary Care Provider + [place] Me[place] RN Unavailable [phone] [place] Me[place] RN Unavailable [phone] Shannan Covington Unavailable Encounter Details Date Type Department Care Team (Late st Contact Info) Description 08/23/2024 Orders Only [facility] ADULT DENTAL [address] [place], [place] [phone] Johnny Gonzalez, WILIAN 505 [place], [place] [phone] Social History Tobacco Use Types Packs/Day Years [...] Description 10/13/2025 11:45 AM EST Office Visit [facility] MEDICINE 230 [place] [address] Darrell Myers MD 230 [place] [address] documented as of this encounter Visit Diagnoses Not on filedocumented in this encounter Additional Health Concerns Assessment Noted Time PHQ-9 Depression Total Score: 10 024 9:17 AM EDT documented as of this encounter Care Teams Mussel Opener Relationship Specialty Start Date End Date Umm Coley MD [address] [place] [address] PCP - General Family Medicine 10/31/16 West Meier RN 505 [place] [address] DrafterPrimer Inserting Machine Operator 01/12/25 04/25/25 West Meier RN 505 [place] [address] Registered Nurse Family Medicine 05/10/25 Shannan Covington 06/08/25 06/08/25 [facility] 05/11/24 11/17/24 [facility] 11/14/24 01/17/25 [employer] 12/08/24 [facility] 05/18/25 documented as of this encounter
--- OUTSIDE RECORDS SUMMARY | 2025-08-16 13:37 | XMS_ITS | Encounter Summary ---
Author Organization [employer] Address [address] [place] [address] 7t [place] [address] Care Team Providers Care Railroad Switchman Name Role Phone Umm Coley MD Primary Care Provider + [place] Me[place] RN Unavailable [phone] [place] Meier RN Unavailable [phone] Shannan Covington Unavailable Reason for Visit * Reason Comments Med Change Request Encounter Details Date Type Department Care Team (Late st Contact Info) Description 03/20/2023 Refill [facility] ADULT DENTAL 230 [place] [address] Johnny Gonzalez DMD 505 [place], [place] [phone] Social History Tobacco Use Types Packs/Day Years [...] Description 10/13/2025 11:45 AM EST Office Visit [facility] MEDICINE [address] [place], [place] [phone] Darrell Myers MD [address] [place], [place] [phone] documented as of this encounter Visit Diagnoses Not on filedocumented in this encounter Care Teams Railroad Switchman Relationship Specialty Start Date End Date Umm Coley MD [address] [place], [place] [phone] PCP - General Family Medicine 10/31/16 West Meier RN 505 [place] [address] Wire WinderProtective Services Case Worker 01/12/25 04/25/25 West Meier RN 505 [place] [address] Registered Nurse Family Medicine 05/10/25 Shannan Covington 06/08/25 06/08/25 Eva Nunez Wire Winder 04/05/24 07/06/24 [facility] 05/11/24 11/17/24 [facility] 11/14/24 01/17/25 [employer] 12/08/24 [facility] 05/18/25 documented as of this encounter
--- OUTSIDE RECORDS SUMMARY | 2025-08-16 13:37 | XMS_ITS | Encounter Summary ---
Author Organization [employer] Address [address] [place] [address] 7t [place] [address] Care Team Providers Care Slack Line Yarder Name Role Phone Umm Coley MD Primary Care Provider + [place] Me[place] RN Unavailable [phone] [place] Meier RN Unavailable [phone] Shannan Covington Unavailable Encounter Details Date Type Department Care Team (Late st Contact Info) Description 03/05/2023 Orders Only [facility] MEDICINE [address] [place], [place] [phone] Umm Coley MD [address] [place], [place] [phone] Social History Tobacco Use Types Packs/Day Years [...] Description 10/13/2025 11:45 AM EST Office Visit [facility] MEDICINE [address] [place] [address] Darrell Myers MD [address] [place] [address] documented as of this encounter Visit Diagnoses Not on filedocumented in this encounter Care Teams Slack Line Yarder Relationship Specialty Start Date End Date Umm Coley MD [address] [place] [address] PCP - General Family Medicine 10/31/16 West Meier, BEBA 505 [place] [address] Associate Media PlannerBiomedical Engineering Aide 01/12/25 04/25/25 West Meier RN 505 [place] [address] Registered Nurse Family Medicine 05/10/25 Shannan Covington 06/08/25 06/08/25 Eva Nunez Associate Media Planner 04/05/24 07/06/24 [facility] 05/11/24 11/17/24 [facility] 11/14/24 01/17/25 [employer] 12/08/24 [facility] 05/18/25 documented as of this encounter
--- OUTSIDE RECORDS SUMMARY | 2025-08-16 13:37 | XMS_ITS | Encounter Summary ---
Author Organization [employer] Address [address] [facility] 7t [place] [address] Care Team Providers Care Consulting Actuary Name Role Phone Umm Coley MD Primary Care Provider + [place] Meier RN Unavailable [place] Me[place] RN Unavailable [phone] Shannan Covington Unavailable Reason for Visit * Reason Onset Date Comments Appointment 02/24/2023 Encounter Details Date Type Department Care Team (Late st Contact Info) Description 02/24/[address] [facility] ADULT DENTAL [address] [place] [address] Johnny Gonzalez, WILIAN [address] [place], [place] [phone] Appointment Social History Tobacco Use Types Packs/Day [...] Description 10/13/2025 11:45 AM EST Office Visit [facility] MEDICINE [address] [place] [phone] Darrell Myers MD [address] [place] [address] documented as of this encounter Visit Diagnoses Not on filedocumented in this encounter Care Teams Consulting Actuary Relationship Specialty Start Date End Date Umm Coley MD [address] [place] [address] PCP - General Family Medicine 10/31/16 West Meier RN 505 [place] [address] Spot CheckerTattoo Designer 01/12/25 04/25/25 West Meier RN 505 [place] [address] Registered Nurse Family Medicine 05/10/25 Shannan Covington 06/08/25 06/08/25 Eva Nunez Spot Checker 04/05/24 07/06/24 [facility] 05/11/24 11/17/24 Jaquan[facility] G[facility] 11/14/24 01/17/25 [email or web address] 12/08/24 [facility] 05/18/25 documented as of this encounter
== END 2025-08-16 11:02 | disposition home or self-care (01) ==
LOC: HO.XRAY 11:01
PROVIDERS: PCP Internal Medicine; Visit Provider Nurse Practitioner
DX: K56.7 Ileus, unspecified (principal)
CPT/HCPCS: 74019

== ENCOUNTER → 2025-08-16 11:05 | Outpatient (BNV) | payer MEDICAID, SELFPAY | PROVIDERS: PCP Internal Medicine; Visit Provider Radiology Diagnostic Radiology | DX: K56.7 Ileus, unspecified (principal) | CPT/HCPCS: 74019 ==

== ENCOUNTER 2025-08-24 11:15 | Outpatient (AMB) | payer MEDICAID, SELFPAY ==
[2025-08-24 11:17] VITALS: BP 102/70; PULSE 82; O2SAT 99; BMI 20.5
--- NOTE | 2025-08-24 11:17 | MHC.OFFVIS ---
Vital Signs 08/24/25 11:17 Height 5 ft 2 in Weight 112 lb BMI 20.5 BP 102/70 Blood Pressure Location Rt brachial Position Sitting Pulse 82 Pulse Source Pulse Oximeter Pulse Oximetry (%) 99 Oxygen Delivery Method Room Air Intake Visit Reasons: 6 mnts f/u Outpatient Physical Therapist Required: No Outpatient Physical Therapist Services: Outpatient Physical Therapist Offered & Declined Accompanied by: Self / Same As Patient Allergies codeine (CODEINE) Allergy (Intermediate, Verified 08/09/25 12:03) DIZZY/NAUSEA, nausea/vomiting escitalopram (From LEXAPRO) Allergy (Intermediate, Verified 08/09/25 12:03) ? NAUSEA meperidine (MEPERIDINE) Allergy (Intermediate, Verified 08/09/25 12:03) NAUSEA morphine (MORPHINE) Allergy (Intermediate, Verified 08/09/25 12:03) PALPITATIONS, palpitation oxycodone (OXYCODONE) Allergy (Intermediate, Verified 08/09/25 12:03) PALPATATIONS, palpitations tramadol Allergy (Unknown, Verified 08/09/25 12:03) dizziness, nausea Medication List - Last Reconciled 08/24/25 by REINA Barrios acetaminophen (Tylenol) 325 mg PO QID PRN albuterol sulfate 90 mcg/actuation 2 puffs inhalation Q6H PRN 30 days amitriptyline 100 mg PO BEDTIME amlodipine 2.5 mg PO DAILY ascorbic acid (vitamin C) 500 mg orally Three days a week (--); 28 days budesonide-formoterol 160-4.5 mcg/actuation (Symbicort) 2 puffs inhalation BID buspirone 15 mg PO TID cholecalciferol (vitamin D3) 50 mcg PO DAILY clonazepam 0.5 mg PO BEDTIME clonazepam 1 mg PO DAILY cyanocobalamin (vitamin B-12) 100 mcg PO DAILY dicyclomine 40 mg (2 x 20 mg) PO QID docusate sodium 100 mg PO BID PRN Held on 03/17/25. Instructions: Doctor's Order famotidine 40 mg PO DAILY ferrous sulfate 325 mg PO MOWEFR 30 days fluticasone propion-salmeterol 115-21 mcg/actuation (Advair HFA) 2 puffs inhalation BID galcanezumab-gnlm (Emgality Pen) 240 mg (2 mL) subcut ONCE 30 days hydroxyzine HCl 25 mg PO BEDTIME PRN ibuprofen 600 mg PO Q6-8H PRN loratadine 10 mg PO DAILY meclizine 25 mg orally every 8 hours as needed; melatonin 10 mg (2 x 5 mg) PO BEDTIME 30 days meloxicam 15 mg PO DAILY 30 days mirtazapine 30 mg PO BEDTIME naproxen 500 mg PO BID PRN 7 days olanzapine 20 mg PO BEDTIME omeprazole 20 mg PO DAILY polyvinyl alcohol-povidone 0.5-0.6 % (Clear Eyes Natural Tears) drps ophthalmic (eye) prazosin 4 mg PO BEDTIME pregabalin 150 mg PO BID 30 days psyllium husk 0.4 grams PO BID ropinirole 0.5 mg (2 x 0.25 mg) PO TID sennosides (senna) 17.2 mg (2 x 8.6 mg) PO BEDTIME PRN 90 days Held on 03/17/25. Instructions: Doctor's Order sertraline 200 mg PO DAILY sumatriptan succinate 100 mg orally . PRN; 100 mg orally at onset of headache, may repeat in 2 hrs PRN; max 2 tabs per day or 4 tabs/week (may take with Naproxen 440mg or Tylenol 1000mg) 30 days MDD 200mg walker As directed HPI Comments Details: The patient is a 60-year-old female presenting with migraine and sleep disturbances. Migraine: - The patient reports using sumatriptan as needed for migraine management. - She confirmed no side effects while utilizing sumatriptan. - Noted that she uses sumatriptan once a week. with effect Sleep Disturbance: - The patient experiences significant trouble sleeping. - Mentions difficulty in both initiating and maintaining sleep. - Nocturnal awakenings or it telecom technician awakenings are not resolved with current interventions. - Reports no daytime naps and inconsistent sleep times. - Continues to have RLS symptoms, but also has fibromyalgia and right hip region pain. - Continues to take iron w/ vit C weekly - Now seeing ortho, rheumatology. [facility] Medical History (Updated 08/24/25 @ 13:13 by REINA Barrios) History of obstruction of large intestine Epigastric pain Right flank pain Migraine Paresthesia of skin Tension headache MCI (mild cognitive impairment) Peripheral neuropathy Breast cancer Primary osteoarthritis of right hand Right shoulder pain Rotator cuff tendinitis Arthritis of right shoulder region Right hand pain Breast cancer, right Anemia Diarrhea Depression Somatization disorder Migraine equivalent syndrome Anxiety Periodontal disease Fibromyalgia Surgical History Status post radiation therapy H/O hand surgery History of esophagogastroduodenoscopy (EGD) History of lumpectomy Hx of section Hx of shoulder surgery Hx of colonoscopy Family History Mother HTN (hypertension) Sister Breast cancer Bone cancer Colon polyps Sister Osteoporosis Hypercholesteremia Colon polyps Social History Household Members: None Housing: Apartment Are you a primary family day care provider to a significant other at home: No Do you presently have visiting nurse or other home services: No Alcohol intake: never Patient Tobacco Use Status: Former Tobacco user Years Smoked: 3 service: No Current occupational status: disabled 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 Steady gait with cane today. General: patient oriented x3 Cranial nerves: Yes CN's II-XII intact bilaterally Cognition (Neuro): normal cognition Psych Appearance: grossly normal Mental Status: mental status grossly normal Speech and movement: Normal speech and movement present Affect: normal affect Attitude: cooperative Assessment & Plan Assessment & Plan (1) Migraine: Code(s): G43.909 - Migraine, unspecified, not intractable, without status migrainosus Category: Medical Qualifiers: Migraine type: migraine (< 15 days per month) without aura Status migrainosus presence: without status migrainosus Intractability: not intractable Qualified Code(s): G43.009 - Migraine without aura, not intractable, without status migrainosus (2) Bilateral leg paresthesia: Code(s): R20.2 - Paresthesia of skin Category: Medical (3) Leg cramps: Comment: Probable RLS Code(s): R25.2 - Cramp and spasm Category: Medical Plan Discussed notes: I discussed potential management strategies with the patient for her current sleep difficulties. Strategies included maintaining a consistent sleep-wake routine and exploring non-pharmacological interventions before bedtime, such as using a weighted blanket to potentially reduce restlessness. Additionally, the importance of accurately managing the timing of her medications to potentially aid in sleep was emphasized. Continuing to monitor her overall symptoms while considering possible adjustments in medication timing could lead to more effective management of her symptoms. We conversed about her current use of sumatriptan for migraine management, confirming its effectiveness and lack of adverse reactions. Follow-up care will likely be crucial for optimizing the combination of both pharmacological and non-pharmacological approaches. Patient was informed and verbally consented to the use of an ambient scribe for clinic note documentation during this visit. For sleep: May 2023 BLE EMG/NCS- normal. Continue Ferrous sulfate 325mg w/ vit C 500mg once weekly. Continue prn colace 100mg bid. Continue Requip 0.5mg tid. Continue Prazosin. Continue Melatonin 10mg qhs. Continue pregabalin 50 mg twice a day As above, encouraged patient to maintain a scheduled week up in bedtime. She may benefit from trying a weighted blanket, at approximately 10 lb. ? For acute migraine tx: Sumatriptan 100mg tab- at onset of headache, may repeat in 2 hrs PRN; max 2 tabs per day or 4 tabs/week. Advised to take Sumatriptan w/ Naproxen 500mg or ibuprofen. For migraine prevention tx: Continue Amitriptyline 100mg qhs. Continue Mirtazapine qhs- for mood but can reduce migraine as well. Tx contraindications- all anti-HTN tx's (candesartan, beta-blockers, CCBs) d/t hypotension f/u in 6 months or sooner prn Medications: Changed From ascorbic acid (vitamin C) (2 x 250 mg) 500 mg orally Three days a week (M-W-Fr); 28 days 12 tabs 6RF To ascorbic acid (vitamin C) 500 mg (2 x 250 mg) PO QWEEK 26 tabs 3RF 90 days From ferrous sulfate 325 mg PO MOWEFR 30 days 13 tabs 6RF To ferrous sulfate 325 mg PO QWEEK 13 tabs 3RF 90 days Refilled sumatriptan succinate 100 mg orally . PRN; 100 mg orally at onset of headache, may repeat in 2 hrs PRN; max 2 tabs per day or 4 tabs/week (may take with Naproxen 440mg or Tylenol 1000mg) 12 tabs 6RF migraine headache 30 days MDD 200mg Coding Level of Care Code Est Pt Level 4 (27987) Diagnoses Migraine without aura and without status migrainosus, not intractable G43.009 Migraine type: migraine (< 15 days per month) without aura Status migrainosus presence: without status migrainosus Intractability: not intractable Bilateral leg paresthesia R20.2 Leg cramps R25.2
== END 2025-08-24 12:05 | disposition home or self-care (01) ==
LOC: HO.HSMS 11:15
PROVIDERS: PCP Internal Medicine; Visit Provider Nurse Practitioner Family
DX: G43.009 Migraine without aura, not intractable, without status migrainosus (principal); R20.2 Paresthesia of skin; R25.2 Cramp and spasm
CPT/HCPCS: 99214

== ENCOUNTER → 2025-08-24 11:15 | Outpatient (BNVA) | payer MEDICAID, SELFPAY | PROVIDERS: PCP Internal Medicine; Visit Provider Nurse Practitioner Family | DX: G43.009 Migraine without aura, not intractable, without status migrainosus (principal); R20.2 Paresthesia of skin; R25.2 Cramp and spasm | CPT/HCPCS: 99212 ==

== ENCOUNTER → 2025-09-05 10:02 | Outpatient (REF) | payer MEDICAID, SELFPAY ==
--- NOTE | ~2025-09-05 | NM_ITS ---
Lexiscan Myocardial perfusion study Indication: Shortness of breath Technique: The patient was brought in for a Lexiscan perfusion study on 09/05/2025 and was injected 0.4 mg of Lexiscan intravenously. Within a minute of this injection 25 mCi of sestamibi was given intravenously. Images were obtained using the SPECT gamma camera interlaced with the gating device. Images were obtained in supine position. Resting perfusion study was performed on 09/06/2025. Patient was administered 25 mCi of sestamibi intravenously at rest. Images were then obtained in supine position. Total DLP 63 mGy-cm. Images were processed with the software and compared side to side in short axis, horizontal long axis and vertical long axis views. Findings: Raw aquisition reviewed. The stress perfusion study showed no significant perfusion abnormality. Both uncorrected as well as CT attenuation corrected images were reviewed. The gated study shows normal LV systolic function with calculated LVEF of 52%, but visually higher. LV cavity is normal in size. The gated study shows normal wall thickening and contraction of segments. Resting study shows no significant perfusion abnormality. Gating at rest reveals normal wall motion with ejection fraction at 56%. The findings are consistent with no clear reversible or fixed perfusion abnormality. NM/NM cardiolite stress test Impression: 1. Myocardial perfusion imaging study shows normal myocardial perfusion. 2. Gated LVEF is 52% during stress and 56% during rest, but visually appears higher. 3. Transient ischemic dilatation not present. EKG component of the test reported separately. Electronically signed by: Juan Ferrell MD 09/07/2025 08:49 AM [facility]
--- NOTE | 2025-09-05 10:07 | CA_ITS ---
Acquisition Time: 2025-09-05 10:22:53 Total Exercise Time: 00:02:00 Test Indications: Medications: Protocol: LEXISCAN Max HR: 131 BPM 82% of Pred: 158 BPM Max BP: 118/72 mmHG Max Work Load: 1.0 METS Pharmacological stress test with Lexiscan while pt swings her legs in chair, with reports of 7/10 mid chest tightness, headache and feeling warm, without any arrythmias, with normotensive response to injection. Nondignostic EKG for ischemia. In recovery, pt treated with IVP Aminophylline 75 mg to reverse Lexiscan after which pt slowly feeling back to baseline. Nuclear images pending. Test reviewed with Dr. Pelaez. Referred By: Anthony Curtis Electronically Signed By: Mesfin Jalloh
--- OUTSIDE RECORDS SUMMARY | 2025-09-05 11:42 | XMS_ITS | Encounter Summary ---
Author Organization [employer] Address [address] [place] [address] 7t [place] [address] Care Team Providers Care Ferry Pilot Name Role Phone Umm Coley MD Primary Care Provider + West Meier RN Unavailable [phone] West Meier RN Unavailable [phone] Shannan Covington Unavailable Reason for Visit * Reason Onset Date Comments appt 01/08/2024 Encounter Details Date Type Department Care Team (Late st Contact Info) Description 01/08/2024 Telephone [facility] ADULT DENTAL [address] [place], [place] [phone] Homer Strong DDS [address] [place], [place] [phone] appt Social History Tobacco Use Types Packs/Day [...] Description 10/13/2025 11:45 AM EST Office Visit [facility] MEDICINE [address] [place] [address] Darrell Myers MD 230 [place] [address] 11/21/2025 1:00 PM EST Office Visit [facility] OPTOMETRY [address] [place] [address] Uyen Patetrson, OD [address] [place] [address] documented as of this encounter Visit Diagnoses Not on filedocumented in this encounter Additional Health Concerns Assessment Noted Time PHQ-9 Depression Total Score: 21 024 11:31 AM EST documented as of this encounter Care Teams Ferry Pilot Relationship Specialty Start Date End Date Umm Coley MD [address] [place] [address] PCP - General Family Medicine 10/31/16 West Meier RN 505 [place] [address] Diabetes Territory ManagerPersonnel Security Specialist 01/12/25 04/25/25 West Meier RN [address] [place] [address] Registered Nurse Family Medicine 05/10/25 Shannan Covington 06/08/25 06/08/25 Eva Nunez Diabetes Territory Manager 04/05/24 07/06/24 [facility] 05/11/24 11/17/24 [facility] 11/14/24 01/17/25 [employer] 12/08/24 [facility] 05/18/25 documented as of this encounter
--- OUTSIDE RECORDS SUMMARY | 2025-09-05 11:42 | XMS_ITS | Encounter Summary ---
Author Organization [employer] Address [address] [place] [address] 7t [place] [address] Care Team Providers Care Veneer Sample Maker Name Role Phone Umm Coley MD Primary Care Provider + [place] Meier RN Unavailable [phone] West Meier RN Unavailable [phone] Shannan Covington Unavailable Encounter Details Date Type Department Care Team (Late st Contact Info) Description 09/24/2022 Abstract [facility] ADULT DENTAL [address] [place] [address] Dental, Provider, DDS Social History Tobacco Use [...] 11:45 AM EST Office Visit [facility] MEDICINE [address] [place] [address] Darrell Myers MD [address] [place] [address] 11/21/2025 1:00 PM EST Office Visit [facility] OPTOMETRY [address] [place], [place] [phone] Uyen Patterson, OD [address] [place] [address] documented as of this encounter Procedures Procedure [...] on filedocumented in this encounter Care Teams Veneer Sample Maker Relationship Specialty Start Date End Date Umm Coley MD [address] [place] [address] PCP - General Family Medicine 10/31/16 West Meier RN 505 [place] [address] Nurses Medical Assistants PhlebotomistsFilament Tester 01/12/25 04/25/25 West Meier RN [address] [place] [address] Registered Nurse Family Medicine 05/10/25 Shannan Covington 06/08/25 06/08/25 Eva Nunez Nurses Medical Assistants Phlebotomists 04/05/24 07/06/24 [facility] 05/11/24 11/17/24 [facility] 11/14/24 01/17/25 [employer] 12/08/24 [facility] 05/18/25 documented as of this encounter
--- OUTSIDE RECORDS SUMMARY | 2025-09-05 11:42 | XMS_ITS | Encounter Summary ---
Author Organization [employer] Address [address] [facility] 7t [place] [address] Care Team Providers Care Workers Compensation Coordinator Name Role Phone Umm Coley MD Primary Care Provider + [place] Meier RN Unavailable [phone] Reason for Visit * Reason Onset Date Comments Med Refill 06/28/2025 Encounter Details Date Type Department Care Team (Late st Contact Info) Description 06/28/2025 Telephone [facility] MEDICINE [address] [place], [place] [phone] Umm Coley MD 230 [place], [place] [phone] Med Refill Social History Tobacco Use Types [...] MCG (1999) capsule To be sent to: [facility]/pharmacy #[id number] [place], [place] - [address] [place] [address] documented in this encounter Plan of Treatment Upcoming Encounters Date Type Department Care Team (Late st Contact Info) Description 10/13/2025 11:45 AM EST Office Visit [facility] MEDICINE [address] [place] [address] Darrell Myers MD [address] [place] [address] 11/21/2025 1:00 PM EST Office Visit [facility] OPTOMETRY [address] [place] [address] LeonardoUyen awad, OD [address] [place] [address] documented as of this encounter Visit Diagnoses Not on filedocumented in this encounter Additional Health Concerns Assessment Noted Time PHQ-9 Depression Total Score: 10 024 9:17 AM EDT documented as of this encounter Care Teams Workers Compensation Coordinator Relationship Specialty Start Date End Date Umm Coley MD [address] [place] [address] PCP - General Family Medicine 10/31/16 West Meier RN [address] [place] [address] Registered Nurse Family Medicine 05/10/25 [facility] 05/18/25 documented as of this encounter
--- OUTSIDE RECORDS SUMMARY | 2025-09-05 11:42 | XMS_ITS | Encounter Summary ---
Author Organization [employer] Address [address] [place] [address] [address] [place] [address] Care Team Providers Care Parish Visitor Name Role Phone Umm Coley MD Primary Care Provider + West Meier RN Unavailable [phone] West Meier RN Unavailable [phone] Shannan Covington Unavailable Encounter Details Date Type Department Care Team (Latest Contact Info) Description 11/23/2020 Abstract [facility] CONVERSIONS Dental, Provider, DDS Social [...] Description 10/13/2025 11:45 AM EST Office Visit [facility] MEDICINE [address] [place], [place] [phone] Darrell Myers MD [address] [place], [place] [phone] 11/21/2025 1:00 PM EST Office Visit [facility] OPTOMETRY [address] [place], [place] [phone] Uyen Patterson, OD [address] [place], [place] [phone] documented as of this encounter Visit Diagnoses Not on filedocumented in this encounter Care Teams Parish Visitor Relationship Specialty Start Date End Date Umm Coley MD [address] [place] [id number] PCP - General Family Medicine 10/31/16 West Meier, RN [address] [place] [address] Scientific Research ManagerForm Grader 01/12/25 04/25/25 West Meier RN [address] [place] [address] Registered Nurse Family Medicine 05/10/25 Shannan Covington 06/08/25 06/08/25 Eva Nunez Scientific Research Manager 04/05/24 07/06/24 [facility] 05/11/24 11/17/24 [facility] 11/14/24 01/17/25 [facility] 12/08/24 [facility] 05/18/25 documented as of this encounter
--- OUTSIDE RECORDS SUMMARY | 2025-09-05 11:42 | XMS_ITS | Encounter Summary ---
Author Organization [employer] Address [address] [place] [address] [address] [place] [address] Care Team Providers Care Security Delivery Specialist Name Role Phone Umm Coley MD Primary Care Provider + [place] Meier RN Unavailable [phone] [place] Meier RN Unavailable [phone] Shannan Covington Unavailable Encounter Details Date Type Department Care Team (Late st Contact Info) Description 11/03/2022 Orders Only [facility] MEDICINE [address] [place], [place] [phone] Umm Coley MD [address] [place], [place] [phone] Osteopenia after menopause (Primary Dx) Social History [...] Description 10/13/2025 11:45 AM EST Office Visit [facility] MEDICINE [address] [place] [address] Darrell Myers MD [address] [place] [address] 11/21/2025 1:00 PM EST Office Visit [facility] OPTOMETRY [address] [place], [place] [phone] Uyen Patterson, OD [address] [place] [address] Scheduled Orders Name Type Priority Associated Diagnoses Orde r Schedule Vitamin D, 25-Hydroxy, Total, Immunoassay Lab Routine Osteopenia after menopause Expected: 11/03/2022 (Approximate), Expires: 11/03/2023 PTH, Intact (ICMA) And Ionized Calcium Lab Routine Osteopenia after menopause Expected: 11/03/2022 (Approximate), Expires: 11/03/2023 documented as of this encounter Visit Diagnoses Diagnosis Osteopenia after menopause- Primary documented in this encounter Care Teams Security Delivery Specialist Relationship Specialty Start Date End Date Umm Coley MD [address] [place] [address] PCP - General Family Medicine 10/31/16 West Meier, RN [address] [place], [place] [phone] Loft Worker Pile DrivingProduce Buyer 01/12/25 04/25/25 West Meier, RN [address] [place], [place] [phone] Registered Nurse Family Medicine 05/10/25 Shannan Covington 06/08/25 06/08/25 Eva Nunez Loft Worker [employer] D[employer] 04/05/24 07/06/24 [facility] 05/11/24 11/17/24 [facility] 11/14/24 01/17/25 [facility] 12/08/24 [facility] 05/18/25 documented as of this encounter
--- OUTSIDE RECORDS SUMMARY | 2025-09-05 11:42 | XMS_ITS | Clinical Summary ---
Author Organization [employer] Address [address] [place] [address] 7[address] [place] [address] Care Team Providers Care Travel Registered Nurse Oncology Name Role Phone Shalonda Coley MD Primary Care Provider + [place] RN Unavailable [phone] Allergies Active Allergy Reactions Criticality Noted Date [...] FOR ALLERGIES 90 tablet 06/28/20 25 Active meclizine (Antivert) 25 MG tablet TOME NAIMA TABLETA (25 MG) POR VIA ORAL CUANDO SEA NECESARIO CHEMA VECES AL FREDRICK (MORNING, NOON AND AT BEDTIME) PARA EL MAREO 30 tablet 3 08/29/20 25 Active meclizine (Antivert) 25 MG tablet Take 1 tablet (25 mg) by mouth if needed in the morning, at noon, and at bedtime for dizziness. 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 Doing better on Symbicort daily, has follow-up with fleet assistant next month. She is a non-smoker, she declines influenza COVID or PCV immunization today. Advised to have them and RSV at earliest convenience at a local pharmacy Myocardiopathy ([facility]) 08/10/2025 Assessment & Plan (08/10/2025 3:25 PM [...] psych medication as per psych prescriber at [facility] Psychiatry. She is on Colace [...] regarding medication management by current VNA services ([facility]). I asked her if she [...] continue f/u with mental health provider in [facility]. Dry eye 05/16/2024 Assessment & Plan (05/16/2024 [...] She was referred to vestibular therapy at [facility], information given to pt to schedule appointment [...] write a complaint to the landlord, building warranty administrator, and housing department. I gave them information about family and divorce legal assistant in the [place] Will refer to healthcare corporate account director to assist with housing due to poor conditions of current apartment Pt already has a letter from counselor, will FU at next appointment Household circumstance affecting care 02/03/2023 Assessment & Plan (12/11/2023 9:49 AM EST): Pt has depression and difficulty with memory. She has a SALESPERSON WIGS and a VNA to manage med, pharma education. VNA can go a few times per week once a POC has been discussed and taught to pt's caregivers Assessment & Plan (04/02/2023 2:38 PM EDT): Pt continues to live in the same apartment with anxiety from recent of her neighbor. Already in contact with [facility] and team is helping her with letters for housing Assessment & Plan (02/26/2023 1:12 PM EDT): Pt lives alone, I will advise to move out to a different apartment due to increased anxiety with household circumstance Refer to [facility] Assessment & Plan (02/03/2023 [...] EST): Pt seen psychotherapist and psychiatry at [facility], needs medication management due to [...] She will continue close follow up with [facility] Psych. I explained to patient [...] Plan (02/26/2023 1:11 PM EDT): Pt seeing [facility] MH team every week. I [...] we can organize the medications. Pt and SALESPERSON WIGS agreed with the plan of care. POC discussed with team nurse and puttying and calking supervisor. Assessment & Plan (04/28/2024 3:33 PM [...] new CM program, she has a new SALESPERSON WIGS and VNA goes daily to administer medication and thus psychoeducation. Continue close follow-up with [facility] psychiatry prescriber, she is on multiple medications for depression, anxiety and insomnia. Continue close follow-up with counselor Niyah Whatley from [facility] psychiatrist, she feels safe at home and is able to reach out for safety Patient denies any acute or recent SI or HI Assessment & Plan (05/02/2025 3:09 PM EDT): Worsening related to external circumstances and also to lack of medications as she has not been taking medications as prescribed. As per the recent medication list requested by patient case coordinator on March 2025, she was on BuSpar 15 mg 3 times daily, clonazepam twice daily as needed anxiety, mirtazapine 30 mg nightly, olanzapine 20 mg nightly, prazosin 4 mg nightly and sertraline 200 mg/day (See encounter under media on 03/03/2025). She will continue to follow [facility] for pharmacotherapy and continue to see her therapist Niyah Whatley regularly (ph#[phone]). At this time she feels safe at home and is able to reach out for safety both of her therapist, the crisis and I told her that she can come to walk-in clinic as needed worsening anxiety. No change in medications at this time, will call [facility] psychiatry for med reconciliation and [...] (04/28/2024 5:25 PM EDT): Pt seen by [facility] clinician, continue psychotherapy every week. [...] she needs pharmaco education. She's followed by [facility] psych. I told her and SALESPERSON WIGS she needs to bring all her med bottles so we can go over her meds until the new VNA service is restarted. Her SALESPERSON WIGS is helping her as well as her daughter With meds for now. Pt feels safe. Will send new Rx if needed with prescription in [place] so VNA can read it (one of the issues being that med rx were written in Chinese and the VNA that took over didn't understand the directions). Will check with VNA service to see what current situation is, pt wants to start using a new VNA service (the one her neighbor uses, [facility]) . 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 Verruca vulgaris 04/15/2012 Ductal carcinoma of right breast (CMS/HCC) 04/02 Overview (12/24/2023): DCIS, Grade 3 Dx [...] Plan (05/02/2024 5:56 PM EDT): -Followed by [facility] GI - last available consult note March [...] to reschedule pharmacological stress test in [facility] dc amlodipine and flexeril and take [...] Encounters Date Type Department Care Team Description 08/29/2025 Refill [facility] MEDICINE [address] [place] [phone] Shalonda Coley MD 08/22/2025 Patient Outreach [facility] CH[facility] MED & PEDS [address] [place] [address] Shalonda Coley MD Care Management (C3CM- F/U call) 08/17/[address] [address] Shalonda Coley MD DME 08/11/[address] [address] Shalonda Coley MD DME 08/10/2025 11:45 AM EDT Office Visit [address] [address] Shalonda Coley MD Wrist fracture, closed, right, with routine healing, subsequent encounter (Primary Dx); Radiation fibrosis of lung (CMS/HCC); Other cardiomyopathy (HCC); Ductal carcinoma of right breast (CMS/HCC) (HCC); 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); Other specified hearing loss of right ear, unspecified hearing status on contralateral side; Vitamin D deficiency; Localized osteoarthritis of left knee 08/10/2025 Travel 08/10/2025 Telephone [facility] MEDICINE [address] [place] [address] Shalonda Coley MD Chart prep 07/19/[address] [address] Shalonda Coley MD Appointment Request 07/18/2025 Orders Only [facility] External Provider, [facility] 07/14/[address] [address] Shalonda Coley MD Med Refill 07/12/2025 11:00 AM EDT Office Visit [facility] MEDICINE [address] [place] [phone] Shalonda Coley MD Other specified hypotension (Primary Dx) 07/12/2025 Travel 07/11/2025 Telephone [facility] MEDICINE [address] [place] [address] Shalonda Coley MD chart prep 07/10/2025 Patient Outreach [facility] MEDICINE [address] [place] [address] Shalonda Coley MD Care Management (C3CM- F/U call # 3) 07/06/[address] [address] Shalonda Coley MD Nurse Triage 07/06/[address] [address] Shalonda Coley MD 06/29/2025 Telephone [facility] MEDICINE [address] [place] [address] Shalonda Coley MD Nurse Triage 06/28/[address] [address] Shalonda Coley MD Med Refill 06/28/2025 Refill [facility] MEDICINE [address] [place] [address] Shalonda Coley MD Rash 06/26/2025 Telephone [facility] MEDICINE [address] [place] [phone] Shalonda Coley MD letter 06/23/2025 11:45 AM EDT Office Visit [facility] MEDICINE [address] [place] [address] Zara Johnson DO Moderate persistent asthma with acute exacerbation (Primary Dx); Pain of finger of left hand 06/23/2025 Travel 06/22/2025 Telephone [facility] MEDICINE [address] [place] [address] Shalonda Coley MD form update 06/22/[address] [address] Shalonda Coley MD Chart Prep 06/20/2025 Telephone [facility] MEDICINE [address] [place] [address] [phone] Shalonda Coley MD ER Follow-up 06/19/[address] [phone] Shalonda Coley MD Nurse Triage 06/08/2025 Patient Outreach [address] [phone] Shalonda Coley MD Care Management (C3CM- F/U call # 2) 06/07/[address] [phone] Shalonda Coley MD Neuropathy 06/06/2025 1:00 PM EDT Office Visit [facility] [address] [place], [place] [phone] Yovani Fountain Dental calculus (Primary Dx) from Last 3 Months Immunizations Immunization Administration [...] 11:45 AM EST Office Visit [facility] MEDICINE [address] [place] [address] Darrell Myers MD [address] [place] [address] 11/21/2025 1:00 PM EST Office Visit [facility] OPTOMETRY [address] [place] [address] Leonardo, Uyen, OD [address] [place] [address] Health Maintenance Due Date Last Done Comments [...] AM EDT Narrative 08/16/2025 11:34 AM EDT [place] [address] XRay Report Signed Patient: Diana Mcpherson MR#: M [id number] : 1965 Acct:[id number] Age/Sex: 60 / F ADM Date: 08/16/25 Loc: MERVAT Attending Dr: Zee ALCANTARA Ordering Physician: Zee Palma Date of Service: 08/16/25 Procedure(s): XR abdomen min 2V Accession Number(s): [id number] cc: Zee Palma; Shalonda Coley MD Reason [...] 08/16/25 1131 DD/ 1117 TD/TT: 08/16/25 1120 Fruit And Vegetable Classer: Procedure Note Donotuseinterpreter, Image - 08/16/2025 [place] [address] XRay Report Signed Patient: Diana Mcpherson LMR#: M [id number] : 1965Acct:[id number] Age/Sex: 60 / FADM Date: 08/16/25 Loc: HO.JUSTUSAY Attending Dr: Zee ALCANTARA Ordering Physician: Zee Palma Date of Service: 08/16/25 Procedure(s): XR abdomen min 2V Accession Number(s): [id number] cc: Zee Palma; Shalonda Coley MD Reason [...] 08/16/25 1131 DD/ 1117 TD/TT: 08/16/25 1120 Fruit And Vegetable Classer: us [facility] External Provider IMG XR PROCEDURES Final Result * XR Hand 3+Views Bilateral (08/07/2025 12:11 PM EDT) Anatomical Region Laterality Modality Upper Extremities, Hand Bilateral Radiogra phic Imaging 08/07/2025 12:1 1 PM EDT Narrative 08/07/2025 1:08 PM EDT [address] [address] XRay Report Signed Patient: Diana Mcpherson MR#: M [id number] : 1965 Acct:[id number] Age/Sex: 60 / F ADM Date: 08/07/25 Loc: MERVAT Attending Dr: Girish Frye MD Ordering Physician: Girish Frye MD Date of Service: 08/07/25 Procedure(s): XR Hand Bilat min 3v Accession Number(s): [id number] cc: Shalonda Coley MD; Girish Frye MD [...] 08/07/25 1306 DD/ 1211 TD/TT: 08/07/25 1223 Fruit And Vegetable Classer: OLYA Procedure Note Donotuseinterpreter, Image - 08/07/2025 [place] [address] XRay Report Signed Patient: Diana Mcpherson LMR#: M [id number] : 1965Acct:[id number] Age/Sex: 60 / FADM Date: 08/07/25 Loc: MERVAT Attending Dr: Girish Frye MD Ordering Physician: Girish Frye MD Date of Service: 08/07/25 Procedure(s): XR Hand Bilat min 3v Accession Number(s): [id number] cc: Shalonda Coley MD; Girish Frye MD [...] 08/07/25 1306 DD/ 1211 TD/TT: 08/07/25 1223 Fruit And Vegetable Classer: OLYA us [facility] External Provider IMG XR PROCEDURES Final Result * XR Knee 3 Views Bilateral (08/07/2025 12:05 PM EDT) Anatomical Region Laterality Modality Lower Extremities, Knee Bilateral Radiogra phic Imaging 08/07/2025 12:0 5 PM EDT Narrative 08/07/2025 12:34 PM EDT [address] [address] XRay Report Signed Patient: Diana Mcpherson MR#: M [id number] : 1965 Acct:[id number] Age/Sex: 60 / F ADM Date: 08/07/25 Loc: HO.XRAY Attending Dr: Girish Frye MD Ordering Physician: Girish Frye MD Date of Service: 08/07/25 Procedure(s): XR Knee Philip 3V Accession Number(s): [id number] cc: Shalonda Coley MD; Girish Frye MD [...] 08/07/25 1232 DD/ 1205 TD/TT: 08/07/25 1223 Fruit And Vegetable Classer: OLYA Procedure Note Donotuseinterpreter, Image - 08/07/[address] [address] XRay Report Signed Patient: Diana Mcpherson LMR#: M [id number] : 1965Acct:[id number] Age/Sex: 60 / FADM Date: 08/07/25 Loc: HO.XRAY Attending Dr: Girish Frye MD Ordering Physician: Girish Frye MD Date of Service: 08/07/25 Procedure(s): XR Knee Philip 3V Accession Number(s): [id number] cc: Shalonda Coley MD; Girish Frye MD [...] 08/07/25 1232 DD/ 1205 TD/TT: 08/07/25 1223 Fruit And Vegetable Classer: OLYA [facility] External Provider IMG XR PROCEDURES Final Result * XR Thoracic Spine 2 Views (07/18/2025 1:56 PM EDT) Anatomical Region Laterality Modality Spine, T-spine Radiographic Kyleigh ging 07/18/2025 1:56 PM EDT Narrative 07/18/2025 2:18 PM EDT [address] [address] XRay Report Signed Patient: Diana Mcpherson MR#: M [id number] : 1965 Acct:[id number] Age/Sex: 60 / F ADM Date: 07/18/25 Loc: HO.XRAY Attending Dr: Zee ALCANTARA Ordering Physician: Zee Palma Date of Service: 07/18/25 Procedure(s): XR thoracic spine 2V Accession Number(s): [id number] cc: Zee Palma; Shalonda Coley MD Reason [...] 07/18/25 1414 DD/ 1356 TD/TT: 07/18/25 1411 Fruit And Vegetable Classer: Procedure Note Donotuseinterpreter, Image - 07/18/[address] [address] XRay Report Signed Patient: Diana Mcpherson LMR#: M [id number] : 1965Acct:[id number] Age/Sex: 60 / FADM Date: 07/18/25 Loc: HO.XRAY Attending Dr: Zee ALCANTARA Ordering Physician: Zee Palma Date of Service: 07/18/25 Procedure(s): XR thoracic spine 2V Accession Number(s): [id number] cc: Zee Palma; Shalonda Coley MD Reason [...] 07/18/25 1414 DD/ 1356 TD/TT: 07/18/25 1411 Fruit And Vegetable Classer: [facility] External Provider IMG XR PROCEDURES Edited Result - Final * XR Ribs 2 Views Right (07/18/2025 1:50 PM EDT) Anatomical Region Laterality Modality Rib, Abdomen Right Radiographic Kyleigh ging 07/18/2025 1:50 PM EDT Narrative 07/18/2025 2:19 PM EDT [place] [address] XRay Report Signed Patient: Diana Mcpherson MR#: M [id number] : 1965 Acct:[id number] Age/Sex: 60 / F ADM Date: 07/18/25 Loc: MERVAT Attending Dr: Zee ALCANTARA Ordering Physician: Zee Palma Date of Service: 07/18/25 Procedure(s): XR ribs RT 2V Accession Number(s): [id number] cc: Zee Palma; Shalonda Coley MD Reason [...] 07/18/2025 02:15 PM EDT RP Dictated By: eBka Packer MD Signed By: <Electronically signed by Beka Packer MD in OV> 07/18/25 1415 DD/ 1350 TD/TT: 07/18/25 1412 Fruit And Vegetable Classer: Procedure Note Donotuseinterpreter, Image - 07/18/2025 [place] [address] XRay Report Signed Patient: Diana Mcpherson LMR#: M [id number] : 1965Acct:[id number] Age/Sex: 60 / FADM Date: 07/18/25 Loc: MERVAT Attending Dr: Zee ALCANTARA Ordering Physician: Zee Palma Date of Service: 07/18/25 Procedure(s): XR ribs RT 2V Accession Number(s): [id number] cc: Zee Palma; Shalonda Coley MD Reason [...] 07/18/25 1415 DD/ 1350 TD/TT: 07/18/25 1412 Fruit And Vegetable Classer: us [facility] External Provider IMG XR PROCEDURES Edited Result - Final * Urinalysis w/reflex microscopic (07/18/2025 1:33 PM EDT) Color Urine Yellow [facility] Appearance Urine Clear [facility] PH 5.5 5.0 - 9.0 [facility] Glucose Urine UA Negative Negative mg/dL [facility] Urine Blood Negative Negative [facility] Specific [place] - Urine 1.020 1.005 - 1.025 [facility] Urine Protein Negative Neg-Trace mg/dL [facility] Urine Ketones Negative Negative mg/dL [facility] Nitrite Urine Negative Negative [facility] Leukocyte Esterase Urine Negative Negative [facility] 07/18/2025 1:33 PM EDT 07/18/2025 2:15 PM EDT Narrative [facility] - 07/18/2025 2:37 PM EDT Urine, Clean Catch Generic External Data Provider LAB URINE ORDERAB LES Final Result Performing Organization Address City/State/[facility] Co de Phone Number [facility] [address] [place] [phone] * XR Fingers 2+ Views Left (06/23/2025 12:26 PM EDT) Anatomical Region Laterality Modality Upper Extremities, Fingers Left Radio graphic Imaging 06/23/2025 12:2 6 PM EDT Narrative 06/23/2025 1:27 PM EDT [address] [address] XRay Report Signed Patient: Diana Mcpherson MR#: M [id number] : 1965 Acct:[id number] Age/Sex: 60 / F ADM Date: 06/23/25 Loc: HO.CX Attending Dr: Zara Johnson DO Ordering Physician: Zara Johnson DO Date of Service: 06/23/25 Procedure(s): XR finger LT min 2V Accession Number(s): [id number] cc: Zara Johnson DO EXAMINATION: XR FINGER, [...] 06/23/25 1324 DD/ 1226 TD/TT: 06/23/25 1310 Fruit And Vegetable Classer: Procedure Note Donotuseinterpreter, Image - 06/23/[address] [address] XRay Report Signed Patient: Diana Mcpherson LMR#: M [id number] : 1965Acct:[id number] Age/Sex: 60 / FADM Date: 06/23/25 Loc: HO.HHCX Attending Dr: Zara Johnson DO Ordering Physician: Zara Johnson DO Date of Service: 06/23/25 Procedure(s): XR finger LT min 2V Accession Number(s): [id number] cc: Zara Johnson DO EXAMINATION: XR FINGER, [...] 06/23/25 1324 DD/ 1226 TD/TT: 06/23/25 1310 Fruit And Vegetable Classer: Zara Johnson DO IMG XR PROCEDURES Final Resu lt * BI Mammogram Screening Tomosynthesis Bilateral (11/29/2024 8:45 AM EST) Anatomical Region Laterality Modality Breast Bilateral Mammography 11/29/2024 8:45 AM EST Narrative 12/07/2024 3:35 PM EST [facility] [address] [place] [address] Mammography Report Signed Patient: Diana Myles MR#: [id number] : 1965 Acct:[id number] Age/Sex: 59 / F ADM Date: 11/29/24 Loc: HO.MAMMO Attending Dr: Shalonda Coley MD Ordering Physician: Shalonda Coley MD Results: 2Be nign Findings Date of Service: 11/29/24 Follow Up: 1 Year From Orig ina Mammogram Procedure(s): MM tomosynthesis screening BI Accession Number(s): [id number] cc: Shalonda Coley MD EXAMINATION: MM SCREENING [...] 12/07/24 1532 DD/ 0845 TD/TT: 11/29/24 0915 Fruit And Vegetable Classer: Procedure Note Donotuseinterpreter, Image - [facility]/07/[facility] [address] [place] [address] Mammography Report Signed Patient: Diana Myles LMR#: [id number] : 1965Acct:[id number] Age/Sex: 59 / FADM Date: 11/29/24 Loc: ROLYO Attending Dr: Shalonda Coley MD Ordering Physician: Shalonda Coley MDResults: 2Be nign Findings Date of Service: 11/29/24Follow Up: 1 Year From Orig inal Mammogram Procedure(s): MM tomosynthesis screening BI Accession Number(s): [id number] cc: Shalonda Coley MD EXAMINATION: MM SCREENING [...] 12/07/24 1532 DD/ 0845 TD/TT: 11/29/24 0915 Fruit And Vegetable Classer: Shalonda Coley MD IMG BI PROCEDURES Edited Result - Final * (ABNORMAL) Hm Colonoscopy (07/30/2023) Colonoscopy Abnormal( A) Normal [facility] Comment:SSL polyp us Shalonda Coley MD HEALTH MAINTENANCE Final Result [facility] [address] [place] [phone] * Thinprep PAP and HPV nRNA E6/E7 (10/08/2022 9:30 AM EST) Clinical Information: None given [facility] LMP: NONE GIVEN [facility] [place] [facility] Prev. PAP: NONE GIVEN [facility] [place] [email or web address] Prev. BX: NONE GIVEN [facility] SOURCE: None given [facility] Statement Of Adequacy: SATISFACTORY FOR EVALUATION Age and/or menstrual status not provided [facility] Interpretation/Re sult: [facility] Comment: Negative for intraepithelial lesion or malignancy. Atrophic pattern; predominantly parabasal cells Stave Hewer: [facility] Comment: DMM, CT(ASCP) CT screening location: [place] [address] Review Stave Hewer: [facility] [place] [employer]at Comment: MAA, CT(ASCP) CT screening location: [place] [address] (Always Message) [facility] [employer] Comment: EXPLANATORY NOTE: The Pap is a [...] HPV nRNA E6/E7 Not Detected Not Detected [facility] Comment: Methodology: Train Conductor-Mediated Amplification This assay detects E6/E7 viral messenger RNA (mRNA) from 14 high-risk HPV types (16,18,31,33,35,39,45,51,52,56,58,59,66,68). Cervical sources are required for HPV testing. If a vaginal source from a patient who has had a total hysterectomy with removal of cervix was submitted, please contact the testing laboratory for alternative testing options. For additional information, please refer to http://education.Tittat.Siminars/faq/BWP083p7 (This link if provided for information/ educational purposes only.) 10/08/2022 9:30 AM EST 10/10/2022 1:07 AM EST Narrative [facility] - 10/14/2022 7:08 PM EST FASTING: UNKNOWN Shauna Matamoros CNM LAB PATHOLOGY ORDERABLES Final Result [facility] [address], [place] [address] [facility] [address], [place] [address] * HIV AB/AG (04/30/2022 11:28 AM EDT) [facility] HIV AB/AG Nonreactive Nonreactive [facility], [...] of detection of this assay. The [employer] HIV Ag/Ab Combo assay result and supplemental [...] Final Result [facility] [address] from Last 3 Months or Most Recently Relevant to Health Maintenance [facility] C3 [facility] MED[facility] STAND ADULT Care Teams Travel Registered Nurse Oncology Relationship Specialty Start Date End Date Shalonda Coley MD [address] [place] [address] PCP - General Family Medicine 10/31/16 [place], BEBA [address] [place] [address] Registered Nurse Family Medicine 05/10/25 [facility] 05/18/25
--- OUTSIDE RECORDS SUMMARY | 2025-09-05 11:42 | XMS_ITS | Encounter Summary ---
Author Organization [employer] Address [address] [place] [address] 7t [place] [address] Care Team Providers Care Tow Bar Driver Name Role Phone Umm Coley MD Primary Care Provider + West Meier RN Unavailable [phone] West Meier RN Unavailable [phone] Shannan Covington Unavailable Encounter Details Date Type Department Care Team (Latest Contact Info) Description 09/16/2022 Abstract [facility] CONVERSIONS Dental, Provider, DDS Social History Tobacco [...] Description 10/13/2025 11:45 AM EST Office Visit [facility] MEDICINE 230 [place] [address] Darrell Myers MD 230 [place], [place] [phone] 11/21/2025 1:00 PM EST Office Visit [facility] OPTOMETRY 267 [place], [place] [phone] Uyen Patterson, OD 230 [place], [place] [phone] documented as of this encounter Visit Diagnoses Not on filedocumented in this encounter Care Teams Tow Bar Driver Relationship Specialty Start Date End Date Umm Coley MD [address] [place] [address] PCP - General Family Medicine 10/31/16 West Meier, RN 505 [place] [address] Milling Machine Set Up OperatorImprovement Leader 01/12/25 04/25/25 West Meier RN 505 [place] [address] Registered Nurse Family Medicine 05/10/25 Shannan Covington 06/08/25 06/08/25 Eva Nunez Milling Machine Set Up Operator 04/05/24 07/06/24 [facility] 05/11/24 11/17/24 [facility] 11/14/24 01/17/25 [employer] 12/08/24 [facility] 05/18/25 documented as of this encounter
--- OUTSIDE RECORDS SUMMARY | 2025-09-05 11:42 | XMS_ITS | Encounter Summary ---
Author Organization [employer] Address [address] [place] [address] 7t [place] [address] Care Team Providers Care Passenger Screener Name Role Phone Umm Coley MD Primary Care Provider + West Meier RN Unavailable [phone] West Meier RN Unavailable [phone] Shannan Covington Unavailable Encounter Details Date Type Department Care Team (Latest Contact Info) Description 11/14/2019 Abstract [facility] CONVERSIONS Dental, Provider, DDS Social [...] 11:45 AM EST Office Visit [facility] MEDICINE 230 [place] [address] Darrell Myers MD 230 [place], [place] [phone] 11/21/2025 1:00 PM EST Office Visit [facility] OPTOMETRY 267 [place], [place] [phone] Uyen Patterson, OD 230 [place], [place] [phone] documented as of this encounter Visit Diagnoses Not on filedocumented in this encounter Care Teams Passenger Screener Relationship Specialty Start Date End Date Umm Coley MD [address] [place] [address] PCP - General Family Medicine 10/31/16 West Meier, RN 505 [place] [address] Cotton HeaderAssociate Professor Of Education 01/12/25 04/25/25 West Meier RN 505 [place] [address] Registered Nurse Family Medicine 05/10/25 Shannan Covington 06/08/25 06/08/25 Eva Nunez [employer] 04/05/24 07/06/24 [facility] 05/11/24 11/17/24 [facility] 11/14/24 01/17/25 [facility] 12/08/24 [facility] 05/18/25 documented as of this encounter
--- OUTSIDE RECORDS SUMMARY | 2025-09-05 11:42 | XMS_ITS | Encounter Summary ---
Author Organization [employer] Address [address] [place] [address] 7t [place] [address] Care Team Providers Care Leadership Intern Name Role Phone Umm Coley MD Primary Care Provider + West Meier RN Unavailable [phone] West Meier RN Unavailable [phone] Shannan Covington Unavailable Reason for Visit * Reason Onset Date Comments Dr. Gonzalez conversation PCP/cleared for tx?? Encounter Details Date Type Department Care Team ([facility] st Contact Info) Description 03/28/2025 Telephone [facility] ADULT DENTAL 505 [place], [place] [phone] Johnny Gonzalez, WILIAN [address] [place], [place] [phone] Dr. Gonzalez conversation PCP/cleared for tx?? Social [...] Send to both provider clinical support and front end engineer DR documented in this encounter Plan of Treatment Upcoming Encounters Date Type Department Care Team (Late st Contact Info) Description 10/13/2025 11:45 AM EST Office Visit [facility] MEDICINE 230 [place] [address] Darrell Myers MD 230 [place] [address] 11/21/2025 1:00 PM EST Office Visit [facility] [address] [place], [place] [phone] Uyen Patterson, OD 230 [place] [address] documented as of this encounter Visit Diagnoses Not on filedocumented in this encounter Additional Health Concerns Assessment Noted Time PHQ-9 Depression Total Score: 10 024 9:17 AM EDT documented as of this encounter Care Teams Leadership Intern Relationship Specialty Start Date End Date Umm Coley MD 230 [place], [place] [phone] PCP - General Family Medicine 10/31/16 West Meier RN 505 [place] [address] Toll Booth OperatorPainter Shipyard 01/12/25 04/25/25 West Meier RN 505 [place] [address] Registered Nurse Family Medicine 05/10/25 Shannan Covington 06/08/25 06/08/25 [facility] 05/18/25 documented as of this encounter
--- OUTSIDE RECORDS SUMMARY | 2025-09-05 11:42 | XMS_ITS | Encounter Summary ---
Author Organization [employer] [facility] Address [address] [place] [address] 7t [place] [address] Care Team Providers Care Property Utilization Officer Name Role Phone Umm Coley MD Primary Care Provider + West Meier RN Unavailable [phone] West Meier RN Unavailable [phone] Shannan Covington Unavailable Reason for Visit * Reason Comments Med Refill Encounter Details Date Type Department Care Team (Late st Contact Info) Description 08/01/2023 Refill [facility] MEDICINE 230 [place], [place] [phone] Umm Coley MD 230 [place], [place] [phone] Social History Tobacco Use Types Packs/Day Years [...] Description 10/13/2025 11:45 AM EST Office Visit [facility] MEDICINE 230 [place] [address] Darrell Myers MD 230 [place] [address] 11/21/2025 1:00 PM EST Office Visit [facility] OPTOMETRY [address] [place] [address] Leonardo, Uyen, OD 230 [place] [address] documented as of this encounter Visit Diagnoses Not on filedocumented in this encounter Additional Health Concerns Assessment Noted Time PHQ-9 Depression Total Score: 12 023 1:58 PM EDT documented as of this encounter Care Teams Property Utilization Officer Relationship Specialty Start Date End Date Umm Coley MD 230 [place], [place] [phone] PCP - General Family Medicine 10/31/16 West Meier RN 505 [place] [address] Shipping AssistantPizza Cook 01/12/25 04/25/25 West Meier, RN 505 [place] [address] Registered Nurse Family Medicine 05/10/25 Shannan Covington 06/08/25 06/08/25 Eva Nunez Shipping Assistant 04/05/24 07/06/24 [facility] 05/11/24 11/17/24 [facility] 11/14/24 01/17/25 [employer] 12/08/24 [facility] 05/18/25 documented as of this encounter
--- OUTSIDE RECORDS SUMMARY | 2025-09-05 11:42 | XMS_ITS | Encounter Summary ---
Author Organization [employer] Address [address] [place] [address] 7t [place] [address] Care Team Providers Care Cleaner Name Role Phone Umm Coley MD Primary Care Provider + West Meier RN Unavailable [phone] Reason for Visit * Reason Onset Date Comments Appointment Request 07/19/2025 Encounter Details Date Type Department Care Team ([facility] st Contact Info) Description 07/19/2025 Telephone [facility] MEDICINE 230 [place], [place] [phone] Umm Coley MD 230 [place], [place] [phone] Appointment Request Social History Tobacco Use Types [...] 10/13/2025 11:45 AM EST Office Visit [facility] MEDICINE 230 [place] [address] Darrell Myers MD 230 [place] [address] 11/21/2025 1:00 PM EST Office Visit [facility] OPTOMETRY [address] [place], [place] [phone] Uyen Patterson, OD 230 [place] [address] documented as of this encounter Visit Diagnoses Not on filedocumented in this encounter Additional Health Concerns Assessment Noted Time PHQ-9 Depression Total Score: 18 025 12:18 PM EDT documented as of this encounter Care Teams Cleaner Relationship Specialty Start Date End Date Umm Coley MD 230 [place], [place] [phone] PCP - General Family Medicine 10/31/16 West Meier RN 505 [place] [address] Registered Nurse Family Medicine 05/10/25 [facility] 05/18/25 documented as of this encounter
--- OUTSIDE RECORDS SUMMARY | 2025-09-05 11:42 | XMS_ITS | Encounter Summary ---
Author Organization [employer] Address [address] [facility] 7t [place] [address] Care Team Providers Care Aircraft Stress Analyst Name Role Phone Umm Coley MD Primary Care Provider + West Meier RN Unavailable [phone] Reason for Visit * Reason Onset Date Comments form update 06/22/2025 Encounter Details Date Type Department Care Team ([facility] st Contact Info) Description 06/22/2025 Telephone [facility] MEDICINE 230 [place], [place] [phone] Umm Coley MD 230 [place], [place] [phone] form update Social History Tobacco Use Types [...] 10:42 AM EDT Tc from Yahir at [facility] requesting update on form faxed over for pt plan of care Contact Yahir at [phone] documented in this encounter Plan of Treatment Upcoming Encounters Date Type Department Care Team ([facility] st Contact Info) Description 10/13/2025 11:45 AM EST [facility] Visit [facility] [address] [place] [address] [place] [phone] Darrell Myers MD 230 [place] [address] 11/21/2025 1:00 PM EST Office Visit [facility] OPTOMETRY [address] [place] [address] LeonardoUyen awad, OD 230 [place] [address] documented as of this encounter Visit Diagnoses Not on filedocumented in this encounter Additional Health Concerns Assessment Noted Time PHQ-9 Depression Total Score: 10 024 9:17 AM EDT documented as of this encounter Care Teams Aircraft Stress Analyst Relationship Specialty Start Date End Date Umm Coley MD 230 [place], [place] [phone] PCP - General Family Medicine 10/31/16 West Meier, BEBA 505 [place] [address] Registered Nurse Family Medicine 05/10/25 [facility] 05/18/25 documented as of this encounter
--- OUTSIDE RECORDS SUMMARY | 2025-09-05 11:42 | XMS_ITS | Encounter Summary ---
Author Organization [employer] Address [address] [place] [address] 7t [place] [address] Care Team Providers Care Preparer Samples And Repairs Name Role Phone Umm Coley MD Primary Care Provider + West Meier RN Unavailable [phone] West Meier RN Unavailable [phone] Shannan Covington Unavailable Encounter Details Date Type Department Care Team (Latest Contact Info) Description 03/13/2022 Abstract [facility] CONVERSIONS Dental, Provider, DDS Social History [...] Description 10/13/2025 11:45 AM EST Office Visit [facility] MEDICINE 230 [place], [place] [phone] Darrell Myers MD 230 [place], [place] [phone] 11/21/2025 1:00 PM EST Office Visit [facility] OPTOMETRY 267 [place], [place] [phone] Uyen Patterson, OD 230 [place], [place] [phone] documented as of this encounter Visit Diagnoses Not on filedocumented in this encounter Care Teams Preparer Samples And Repairs Relationship Specialty Start Date End Date Umm Coley MD [address] [place] [address] PCP - General Family Medicine 10/31/16 West Meier, RN 505 [place] [address] Leasing ManagerPurchasing Specialist 01/12/25 04/25/25 West Meier RN 505 [place] [address] Registered Nurse Family Medicine 05/10/25 Shannan Covington 06/08/25 06/08/25 Eva Nunez Leasing Manager 04/05/24 07/06/24 [facility] 05/11/24 11/17/24 [facility] 11/14/24 01/17/25 [employer] 12/08/24 [facility] 05/18/25 documented as of this encounter
--- OUTSIDE RECORDS SUMMARY | 2025-09-05 11:42 | XMS_ITS | Encounter Summary ---
Author Organization [employer] Address [address] [facility] 7t [place] [address] Care Team Providers Care Demi Chef Name Role Phone Umm Coley MD Primary Care Provider + West Meier RN Unavailable Reason for Visit * Reason Comments Med Refill Encounter Details Date Type Department Care Team (Late st Contact Info) Description 07/06/2025 Refill [facility] MEDICINE 230 [place], [place] [phone] Umm Coley MD 230 [place], [place] [phone] Social History Tobacco Use Types Packs/Day Years [...] 11:45 AM EST Office Visit [facility] MEDICINE 230 [place] [address] Darrell Myers MD 230 [place] [address] 11/21/2025 1:00 PM EST Office Visit [facility] OPTOMETRY 267 [place] [address] Uyen Patterson, OD 230 [place] [address] documented as of this encounter Visit Diagnoses Not on filedocumented in this encounter Additional Health Concerns Assessment Noted Time PHQ-9 Depression Total Score: 10 024 9:17 AM EDT documented as of this encounter Care Teams Demi Chef Relationship Specialty Start Date End Date Umm Coley MD [address] [place] [address] PCP - General Family Medicine 10/31/16 West Meier, BEBA [address] [place] [address] Registered Nurse Family Medicine 05/10/25 [facility] 05/18/25 documented as of this encounter
--- OUTSIDE RECORDS SUMMARY | 2025-09-05 11:43 | XMS_ITS | Encounter Summary ---
Author Organization [facility] Address [address] [place] [address] 7t [place] [address] Care Team Providers Care Life Manager Name Role Phone Umm Coley MD Primary Care Provider + West Meier RN Unavailable [phone] West Meier RN Unavailable [phone] Shannan Covington Unavailable Reason for Visit * Reason Comments Med Refill Encounter Details Date Type Department Care Team (Late st Contact Info) Description 02/05/2023 Refill [facility] MEDICINE 230 [place], [place] [phone] Umm Coley MD 230 [place], [place] [phone] Arthritis of knee Social History Tobacco Use [...] Description 10/13/2025 11:45 AM EST Office Visit [facility] MEDICINE 230 [place] [address] Darrell Myers MD 230 [place] [address] 11/21/2025 1:00 PM EST Office Visit [facility] OPTOMETRY [address] [place] [address] Uyen Patterson, OD 230 [place] [address] documented as of this encounter Visit Diagnoses Diagnosis Arthritis of knee Unspecified arthropathy, lower leg documented in this encounter Care Teams Life Manager Relationship Specialty Start Date End Date Umm Coley MD 230 [place] [address] PCP - General Family Medicine 10/31/16 West Meier RN 505 [place] [address] Dirt Bike MechanicStreet Cleaning Equipment Operator 01/12/25 04/25/25 West Meier RN 505 [place] [address] Registered Nurse Family Medicine 05/10/25 Shannan Covington 06/08/25 06/08/25 Eva Nunez Dirt Bike Mechanic 04/05/24 07/06/24 [facility] 05/11/24 11/17/24 [facility] 11/14/24 01/17/25 [employer] 12/08/24 [facility] 05/18/25 documented as of this encounter
--- OUTSIDE RECORDS SUMMARY | 2025-09-05 11:43 | XMS_ITS | Encounter Summary ---
Author Organization [employer] Address [address] [facility] 7t [place] [address] Care Team Providers Care Sports Equipment Racker Name Role Phone Umm Coley MD Primary Care Provider + West Meier RN Unavailable [phone] West Meier RN Unavailable [phone] Shannan Covington Unavailable Reason for Visit * Reason Comments Med Change Request Encounter Details Date Type Department Care Team (Late st Contact Info) Description 03/20/2023 Refill [facility] ADULT DENTAL 230 [place] [address] Johnny Gonzalez DMD 505 [place], [place] [phone] Social History Tobacco Use Types Packs/Day Years [...] Description 10/13/2025 11:45 AM EST Office Visit [facility] MEDICINE 230 [place] [address] Darrell Myers MD 230 [place] [address] 11/21/2025 1:00 PM EST Office Visit [facility] OPTOMETRY [address] [place] [address] Uyen Patterson, OD 230 [place] [address] documented as of this encounter Visit Diagnoses Not on filedocumented in this encounter Care Teams Sports Equipment Racker Relationship Specialty Start Date End Date Umm Coley MD 230 [place] [address] PCP - General Family Medicine 10/31/16 West Meier, RN 505 [place] [address] Lay Health AdvocateSuction Worker 01/12/25 04/25/25 West Meier, RN 505 [place] [address] Registered Nurse Family Medicine 05/10/25 Shannan Covington 06/08/25 06/08/25 Eva Nunez Lay Health Advocate 04/05/24 07/06/24 [facility] 05/11/24 11/17/24 [facility] 11/14/24 01/17/25 [employer] 12/08/24 [facility] 05/18/25 documented as of this encounter
--- OUTSIDE RECORDS SUMMARY | 2025-09-05 11:43 | XMS_ITS | Encounter Summary ---
Author Organization [employer] Address [address] [facility] 7t [place] [address] Care Team Providers Care Machine Inspector Name Role Phone Umm Coley MD Primary Care Provider + West Meier RN Unavailable [phone] West Meier RN Unavailable [phone] Shannan Covington Unavailable Encounter Details Date Type Department Care Team (Late st Contact Info) Description 08/23/2024 Orders Only [facility] ADULT DENTAL 505 [place], [place] [phone] Johnny Gonzalez, WILIAN 505 [place], [place] [phone] Social History Tobacco Use Types Packs/Day Years [...] Description 10/13/2025 11:45 AM EST Office Visit [facility] MEDICINE 230 [place] [address] Darrell Myers MD 230 [place] [address] 11/21/2025 1:00 PM EST Office Visit [facility] OPTOMETRY 267 [place] [address] Leonardo, Uyen, OD 230 [place] [address] documented as of this encounter Visit Diagnoses Not on filedocumented in this encounter Additional Health Concerns Assessment Noted Time PHQ-9 Depression Total Score: 10 024 9:17 AM EDT documented as of this encounter Care Teams Machine Inspector Relationship Specialty Start Date End Date Umm Coley MD 230 [place] [address] PCP - General Family Medicine 10/31/16 West Meier RN [address] [place] [address] Floodplain ManagerAudience Development Manager 01/12/25 04/25/25 West Meier, RN 505 [facility] [place] [address] Registered Nurse Family Medicine 05/10/25 Shannan Covington 06/08/25 06/08/25 [facility] 05/11/24 11/17/24 [facility] 11/14/24 01/17/25 [employer] 12/08/24 [facility] 05/18/25 documented as of this encounter
--- OUTSIDE RECORDS SUMMARY | 2025-09-05 11:43 | XMS_ITS | Encounter Summary ---
Author Organization [employer] Address [address] [facility] 7t [place] [address] Care Team Providers Care Business Banking Officer Name Role Phone Umm Coley MD Primary Care Provider + West Meier RN Unavailable [phone] West Meier RN Unavailable [phone] Shannan Covington Unavailable Reason for Visit * Reason Onset Date Comments Appointment 03/17/2023 Encounter Details Date Type Department Care Team (Late st Contact Info) Description 03/17/2023 Telephone [facility] ADULT DENTAL 230 [place] [address] Johnny Gonzalez, WILIAN [address] [place], [place] [phone] Appointment Social History Tobacco Use Types Packs/Day [...] Description 10/13/2025 11:45 AM EST Office Visit [facility] MEDICINE 230 [place] [address] Darrell Myers MD 230 [place] [address] 11/21/2025 1:00 PM EST Office Visit [facility] OPTOMETRY [address] [place] [address] Uyen Patterson, OD 230 [place] [address] documented as of this encounter Visit Diagnoses Not on filedocumented in this encounter Care Teams Business Banking Officer Relationship Specialty Start Date End Date Umm Coley MD 230 [place] [address] PCP - General Family Medicine 10/31/16 West Meier RN 505 [facility] [place] [address] Plant ScientistRoller Setter 01/12/25 04/25/25 West Meier RN 505 [facility] [address] Registered Nurse Family Medicine 05/10/25 Shannan Covington 06/08/25 06/08/25 Eva Nunez Plant Scientist 04/05/24 07/06/24 [facility] 05/11/24 11/17/24 [facility] 11/14/24 01/17/25 [employer] 12/08/24 [facility] 05/18/25 documented as of this encounter
--- OUTSIDE RECORDS SUMMARY | 2025-09-05 11:43 | XMS_ITS | Encounter Summary ---
Author Organization [employer] Address [address] [place] [address] 7t [place] [address] Care Team Providers Care Manager Convention Name Role Phone Umm Coley MD Primary Care Provider + West Meier RN Unavailable [phone] West Meier RN Unavailable [phone] Shannan Covington Unavailable Reason for Visit * Reason Onset Date Comments pre med prior to dental treatment 08/23/2024 Encounter Details Date Type Department Care Team ([facility] st Contact Info) Description 08/23/2024 Telephone [facility] ADULT DENTAL 505 [place], [place] [phone] Johnny Gonzalez DMD 505 [place], [place] [phone] pre med prior to dental treatment Social [...] spoke with Nina in the front end driver with a run through of what was happening with the patient and she stated she would also send something to provider for clarificationDR documented in this encounter Plan of Treatment Upcoming Encounters Date Type Department Care Team (Late st Contact Info) Description 10/13/2025 11:45 AM EST Office Visit [facility] [place] [address] Darrell Myers MD 230 [place] [address] 11/21/2025 1:00 PM EST Office Visit [facility] OPTOMETRY [address] [place], [place] [phone] Leonardo, Uyen, OD 230 [facility] [place] [address] documented as of this encounter Visit Diagnoses Not on filedocumented in this encounter Additional Health Concerns Assessment Noted Time PHQ-9 Depression Total Score: 10 024 9:17 AM EDT documented as of this encounter Care Teams Manager Convention Relationship Specialty Start Date End Date Umm Coley MD 230 [place], [place] [phone] PCP - General Family Medicine 10/31/16 West Meier RN 505 [facility] [place] [address] Transformer Shop SupervisorFloor Waxer 01/12/25 04/25/25 West Meier RN 505 [facility] [place] [address] Registered Nurse Family Medicine 05/10/25 Shannan Covington 06/08/25 06/08/25 [facility] 05/11/24 11/17/24 [facility] 11/14/24 01/17/25 [employer] 12/08/24 [facility] 05/18/25 documented as of this encounter
--- OUTSIDE RECORDS SUMMARY | 2025-09-05 11:43 | XMS_ITS | Encounter Summary ---
Author Organization [employer] Address [address] [place] [address] 7t [place] [address] Care Team Providers Care Electrical Technology Instructor Name Role Phone Umm Coley MD Primary Care Provider + West Meier RN Unavailable [phone] West Mieer RN Unavailable [phone] Shannan Covington Unavailable Reason for Visit * Reason Comments Med Refill Encounter Details Date Type Department Care Team (Late st Contact Info) Description 05/21/2023 Refill [facility] MED[facility]INE [address] [place], [place] [phone] Umm Coley MD [address] [place], [place] [phone] Arthritis of knee Social History Tobacco Use [...] [facility] 230 [place] [address] Darrell Myers MD 230 [place] [address] 11/21/2025 1:00 PM EST Office Visit [facility] OPTOMETRY [address] [place] [address] Leonardo, Uyen, OD 230 [place] [address] documented as of this encounter Visit Diagnoses Diagnosis Arthritis of knee Unspecified arthropathy, lower leg documented in this encounter Additional Health Concerns Assessment Noted Time PHQ-9 Depression Total Score: 12 023 1:58 PM EDT documented as of this encounter Care Teams Electrical Technology Instructor Relationship Specialty Start Date End Date Umm Coley MD 230 [place] [address] PCP - General Family Medicine 10/31/16 West Meier, RN [address] [place] [address] Vest BackerCorrugator Operator Helper 01/12/25 04/25/25 West Meier, RN [address] [place] [address] Registered Nurse Family Medicine 05/10/25 Shannan Covington 06/08/25 06/08/25 Eva Nunez Vest Backer 04/05/24 07/06/24 [facility] 05/11/24 11/17/24 [facility] 11/14/24 01/17/25 [employer] 12/08/24 [facility] 05/18/25 documented as of this encounter
--- OUTSIDE RECORDS SUMMARY | 2025-09-05 11:43 | XMS_ITS | Encounter Summary ---
Author Organization [employer] Address [address] [facility] 7t [place] [address] Care Team Providers Care Md Senior Research Scientist Name Role Phone Umm Coley MD Primary Care Provider + West Meier RN Unavailable [phone] West Meier RN Unavailable [phone] Shannan Covington Unavailable Reason for Visit * Reason Onset Date Comments Appointment 02/24/2023 Encounter Details Date Type Department Care Team (Late st Contact Info) Description 02/24/2023 Telephone [facility] ADULT DENTAL 230 [place] [address] Johnny Gonzalez, WILIAN [address] [place], [place] [phone] Appointment Social History Tobacco Use Types Packs/Day [...] Description 10/13/2025 11:45 AM EST Office Visit [facility] MEDICINE [address] [place] [address] Darrell Myers MD 230 [place] [address] 11/21/2025 1:00 PM EST Office Visit [facility] OPTOMETRY [address] [place] [address] Uyen Patterson, OD 230 [place] [address] documented as of this encounter Visit Diagnoses Not on filedocumented in this encounter Care Teams Md Senior Research Scientist Relationship Specialty Start Date End Date Umm Coley MD 230 [place] [address] PCP - General Family Medicine 10/31/16 West Meier RN 505 [place] [address] Fitness ProfessionalDocumentation Improvement Specialist 01/12/25 04/25/25 West Meier RN 505 [place] [address] Registered Nurse Family Medicine 05/10/25 Shannan Covington 06/08/25 06/08/25 Eva Nunez Fitness Professional 04/05/24 07/06/24 [facility] 05/11/24 11/17/24 [facility] 11/14/24 01/17/25 [employer] 12/08/24 [facility] 05/18/25 documented as of this encounter
--- OUTSIDE RECORDS SUMMARY | 2025-09-05 11:43 | XMS_ITS ---
Author Organization [employer] Address [address] [place] [address] 7t [place] [address] Care Team Providers Care Nurse Practitioner Physician Assistant Name Role Phone Umm Coley MD Primary Care Provider + West Meier RN Unavailable [phone] Complex Status:Enrolled (Active) Start date:05/10/2025 Enrollment date:05/10/2025 Enrollment reason:Referred by provider Overview Lost contact on Altag[employer]. Re-opening program per PCP but now on GANESH. Case Team Name Relationship Phone West Meier RN(Responsible Staff) Registered N [facility] [phone] Continued Care and Services Coordination
--- OUTSIDE RECORDS SUMMARY | 2025-09-05 11:43 | XMS_ITS | Encounter Summary ---
Author Organization [employer] Address [address] [facility] 7t [place] [address] Care Team Providers Care Liquor Grinding Mill Operator Name Role Phone Umm Coley MD Primary Care Provider + West Meier RN Unavailable [phone] West Meier RN Unavailable [phone] Shannan Covington Unavailable Reason for Visit * Reason Comments Med Change Request Encounter Details Date Type Department Care Team (Late st Contact Info) Description 03/20/2023 Refill [facility] ADULT DENTAL 230 [place] [address] Johnny Gonzalez DMD 505 [place], [place] [phone] Social History Tobacco Use Types Packs/Day Years [...] Description 10/13/2025 11:45 AM EST Office Visit [facility] MEDICINE 230 [place] [address] Darrell Myers MD 230 [place] [address] 11/21/2025 1:00 PM EST Office Visit [facility] OPTOMETRY [address] [place] [address] Uyen Patterson, OD 230 [place] [address] documented as of this encounter Visit Diagnoses Not on filedocumented in this encounter Care Teams Liquor Grinding Mill Operator Relationship Specialty Start Date End Date Umm Coley MD 230 [place] [address] PCP - General Family Medicine 10/31/16 West Meier, RN 505 [place] [address] Sales RecruiterTack Maker 01/12/25 04/25/25 West Meier, RN 505 [place] [address] Registered Nurse Family Medicine 05/10/25 Shannan Covington 06/08/25 06/08/25 Eva Nunez Sales Recruiter 04/05/24 07/06/24 [facility] 05/11/24 11/17/24 [facility] 11/14/24 01/17/25 [employer] 12/08/24 [facility] 05/18/25 documented as of this encounter
--- OUTSIDE RECORDS SUMMARY | 2025-09-05 11:43 | XMS_ITS | Encounter Summary ---
Author Organization [employer] Address [address] [place] [address] 7t [place] [address] Care Team Providers Care Road Driver Name Role Phone Umm Coley MD Primary Care Provider + West Meier RN Unavailable [phone] West Meier RN Unavailable [phone] Shannan Covington Unavailable Reason for Visit * Reason Comments Med Refill Encounter Details Date Type Department Care Team (Late st Contact Info) Description 06/10/[address] [facility] MEDICINE 230 [place], [place] [phone] Yenny Morris MD 230 [place], [place] [phone] Rash Social History Tobacco Use Types Packs/Day [...] [facility] MEDICINE 230 [place] [address] Darrell Myers MD 230 [place] [address] 11/21/2025 1:00 PM EST Office Visit [facility] OPTOMETRY [address] [place] [address] Leonardo, Uyen, OD 230 [place] [address] documented as of this encounter Visit Diagnoses Diagnosis Rash Rash and other nonspecific skin eruption documented in this encounter Additional Health Concerns Assessment Noted Time PHQ-9 Depression Total Score: 12 023 1:58 PM EDT documented as of this encounter Care Teams Road Driver Relationship Specialty Start Date End Date Umm Coley MD [address] [place], [place] [phone] PCP - General Family Medicine 10/31/16 West Meier, RN [address] [place] [address] Real Estate Leasing ManagerPrawn Trawler Hand 01/12/25 04/25/25 West Meier, RN 505 [place] [address] Registered Nurse Family Medicine 05/10/25 Shannan Covington 06/08/25 06/08/25 Eva Nunez Real Estate Leasing Manager 04/05/24 07/06/24 [facility] 05/11/24 11/17/24 [facility] 11/14/24 01/17/25 [employer] 12/08/24 [facility] 05/18/25 documented as of this encounter
--- OUTSIDE RECORDS SUMMARY | 2025-09-05 11:43 | XMS_ITS | Encounter Summary ---
Author Organization [employer] Address [address] [place] [address] 7t [place] [address] Care Team Providers Care Internal Audit Senior Manager Name Role Phone Umm Coley MD Primary Care Provider + West Meier RN Unavailable [phone] West Meier RN Unavailable [phone] Shannan Covington Unavailable Reason for Visit * Reason Onset Date Comments Appointment 06/15/2023 Encounter Details Date Type Department Care Team (Late st Contact Info) Description 06/15/2023 Telephone [facility] ADULT DENTAL [address] [place] [address] Johnny Gonzalez, WILIAN [address] [place], [place] [phone] Appointment Social History Tobacco Use Types Packs/Day [...] Description 10/13/2025 11:45 AM EST Office Visit [facility] MEDICINE [address] [place] [address] Darrell Myers MD 230 [place] [address] 11/21/2025 1:00 PM EST Office Visit [facility] OPTOMETRY [address] [place] [address] Leonardo, Uyen, OD 230 [place] [address] documented as of this encounter Visit Diagnoses Not on filedocumented in this encounter Additional Health Concerns Assessment Noted Time PHQ-9 Depression Total Score: 12 023 1:58 PM EDT documented as of this encounter Care Teams Internal Audit Senior Manager Relationship Specialty Start Date End Date Umm Coley MD 230 [place] [address] PCP - General Family Medicine 10/31/16 West Meier, BEBA 505 [place] [address] Plodding Machine OperatorBreaker Off 01/12/25 04/25/25 West Meier, RN [address] [place] [address] Registered Nurse Family Medicine 05/10/25 Shannan Covington 06/08/25 06/08/25 Eva Nunez Plodding Machine Operator 04/05/24 07/06/24 [facility] 05/11/24 11/17/24 [facility] 11/14/24 01/17/25 [employer] 12/08/24 [facility] 05/18/25 documented as of this encounter
--- OUTSIDE RECORDS SUMMARY | 2025-09-05 11:43 | XMS_ITS | Encounter Summary ---
Author Organization [employer] Address [address] [place] [address] 7t [place] [address] Care Team Providers Care Steam Shovel Engineer Name Role Phone Umm Coley MD Primary Care Provider + West Meier RN Unavailable [phone] West Meier RN Unavailable [phone] Shannan Covington Unavailable Encounter Details Date Type Department Care Team (Late st Contact Info) Description 03/05/2023 Orders Only [facility] MEDICINE [address] [place], [place] [phone] Umm Coley MD 230 [place], [place] [phone] Social History Tobacco Use Types Packs/Day Years [...] Description 10/13/2025 11:45 AM EST Office Visit [facility] MEDICINE 230 [place] [address] Darrell Myers MD 230 [place] [address] 11/21/2025 1:00 PM EST Office Visit [facility] OPTOMETRY [address] [place] [address] Uyen Patterson, OD 230 [place] [address] documented as of this encounter Visit Diagnoses Not on filedocumented in this encounter Care Teams Steam Shovel Engineer Relationship Specialty Start Date End Date Umm Coley MD 230 [place] [address] PCP - General Family Medicine 10/31/16 West Meier RN [address] [place] [address] BuggymanRag Willow Operator 01/12/25 04/25/25 West Meier RN [address] [place] [address] Registered Nurse Family Medicine 05/10/25 Shannan Covington 06/08/25 06/08/25 Eva Nunez Buggyman 04/05/24 07/06/24 [facility] 05/11/24 11/17/24 [facility] 11/14/24 01/17/25 [employer] 12/08/24 [facility] 05/18/25 documented as of this encounter
== END ==
LOC: HO.CARD 10:02
PROVIDERS: PCP Internal Medicine; Visit Provider Internal Medicine Pulmonary Disease
DX: R06.00 Dyspnea, unspecified (principal)
CPT/HCPCS: 78452; 93017; A9500; J0280; J2785

== ENCOUNTER → 2025-09-05 10:07 | Outpatient (BNV) | payer MEDICAID, SELFPAY | PROVIDERS: PCP Internal Medicine | DX: R07.9 Chest pain, unspecified (principal) | CPT/HCPCS: 78452; 93016; 93018 ==

== ENCOUNTER → 2025-09-07 12:52 | Outpatient (REF) | payer MEDICAID, SELFPAY ==
--- NOTE | 2025-09-07 12:58 | CA_ITS ---
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 Normal LV systolic function with LV EF of 60 65% 2. Normal cardiac valvular Dopplers next 3. Normal RV systolic pressure 4. No gross pericardial effusion Findings Left Ventricle Normal left ventricular size, thickness, and systolic function. The visually estimated ejection fraction is between 60-65%. Spectral Doppler is indicative of a normal filling pattern. Peak GLS is -19.5%, within normal limits. Wall Motion Rest Echo Findings The basal inferior, basal inferoseptal, and basal inferolateral segments are hypokinetic. All other scored wall segments showed normal motion. Right Ventricle Normal right ventricular cavity size and systolic function. Atria Both atria are normal in size. There is no evidence of interatrial shunt. Aortic Valve Normal aortic valve structure and function. There is no aortic valve stenosis. There is no aortic valve regurgitation. Mitral Valve Normal mitral valve structure and function. There is trace mitral valve regurgitation. There is no mitral valve stenosis. Pulmonic Valve The pulmonic valve is likely normal. Tricuspid Valve Normal tricuspid valve structure. There is trace tricuspid valve regurgitation. The right ventricular systolic pressure is normal. The right ventricular systolic pressure is 19 mmHg. Normal right atrial pressure. There is no evidence of pulmonary hypertension. Great Vessels The pulmonary artery was not well visualized. There is no dilatation of the ascending aorta measuring 2.50 cm. Venous The inferior vena cava is normal in size and collapses greater than 50% with inspiration. Pericardium/Pleural There is no evidence of pericardial effusion. Prior Study Comparison No significant change compared to prior study dated: 04/24/2023. Measurements 2D Linear Measurements IVSd: 0.74 0.6-0.9/0.6-1.0 cm LVIDd: 4.03 3.9-5.3/4.2-5.9 cm LVIDd Index: 2.70 2.4-3.2/2.2-3.1 cm/m2 LVIDs: 2.58 2.0-3.6 cm LVPWd: 0.74 0.7-1.1 cm LA Diam: 2.80 2.7-3.8/3.0-4.0 cm LAIDs Index: 1.88 1.5-2.3 cm/m2 LV Mass: 105.91 67-162/88-224 g LV Mass Index: 71.08 43-95/49-115 g/m2 LVOT Diam: 1.80 3.0+(-)1.3 cm 2D Systolic Function EF 4C: 64.00 >55% EF 2C: 60.60 >55% EF BiP: 62.20 >55% Mitral Valve MV Pk E: 0.63 MV PK A: 0.48 MV Decel Time: 189.00 E/A: 1.30 E'Lateral: 10.80 E'Medial: 7.07 E/E' Med: 9.00 E/E' Lat: 5.90 PHT: 55.00 MVA PHT: 4.00 Decel Vance: 3.36 Aortic Valve AoV Pk Octavio: 1.15 AoV Mn Octavio: 0.84 AoV VTI: 0.23 AoV Pk Grad: 5.00 Aov Mn Grad: 3.00 BART Cont.VTI: 1.90 LVOT LVOT Pk Octavio: 0.80 LVOT Mn Octavio: 0.51 LVOT VTI: 0.17 LVOT Pk Grad: 3.00 LVOT Mn Grad: 1.00 LVOT Diam: 1.80 LVOT Area: 2.54 Diastolic Function MV Pk E: 0.63 MV Pk A: 0.48 E/A: 1.30 E'Medial: 7.07 E/E' Med: 9.00 E' Laterial: 10.80 E/E' Lat: 5.90 Right Ventricle TAPSE (mm): 21.90 TVS' Octavio: 11.90 Tricuspid Valve TR Pk Octavio: 2.00 TR Pk Grad: 16.00 RA Press: 3.00 RVSP: 19.00 Great Vessels Aorta Sinus of Valsalva: 2.85 2.0-3.[address] Ridge: 2.26 1.7-3.4 cm Ao Asc: 2.50 2.1-3.4 cm Ao Arch: 2.10 Pulmonary Veins Pulm Vein S/D 1.40 Updated in Other Vendor System with Status of Final Brandon Parkinson MD electronically signed on 09/07/2025 3:00:10 PM with status of Final
--- OUTSIDE RECORDS SUMMARY | 2025-09-07 15:50 | XMS_ITS | Encounter Summary ---
Author Organization [employer] Address [address] [place] [address] 7t [place] [address] Care Team Providers Care Shade Matcher Name Role Phone Umm Coley MD Primary Care Provider + West Meier RN Unavailable [phone] West Meier RN Unavailable [phone] Shannan Covington Unavailable Reason for Visit * Reason Onset Date Comments Dr. Gonzalez conversation PCP/cleared for tx?? Encounter Details Date Type Department Care Team ([facility] st Contact Info) Description 03/28/2025 Telephone [facility] ADULT DENTAL [address] [place], [place] [phone] Johnny Gonzalez, WILIAN [address] [place], [place] [phone] Dr. Gonzalez conversation PCP/cleared for tx?? Social [...] both provider clinical support and front end loader operator DR documented in this encounter Plan of Treatment Upcoming Encounters Date Type Department Care Team (Late st Contact Info) Description 09/12/2025 11:15 AM EST Office Visit [facility] MEDICINE [address] [place] [address] Umm Coley MD [address] [place] [address] 10/13/2025 11:45 AM EST Office Visit [facility] MEDICINE [address] [place] [address] Darrell Myers MD [address] [place] [address] 11/21/2025 1:00 PM EST Office Visit [facility] OPTOMETRY [address] [place] [address] Leonardo, Uyen, OD 230 [place] [address] documented as of this encounter Visit Diagnoses Not on filedocumented in this encounter Additional Health Concerns Assessment Noted Time PHQ-9 Depression Total Score: 10 024 9:17 AM EDT documented as of this encounter Care Teams Shade Matcher Relationship Specialty Start Date End Date Umm Coley MD [address] [place] [address] PCP - General Family Medicine 10/31/16 West Meier RN [address] [place] [address] Yoker Machine OperatorInsulation Sprayer 01/12/25 04/25/25 West Meier RN [address] [place] [address] Registered Nurse Family Medicine 05/10/25 Shannan Covington 06/08/25 06/08/25 [facility] 05/18/25 documented as of this encounter
--- OUTSIDE RECORDS SUMMARY | 2025-09-07 15:50 | XMS_ITS | Encounter Summary ---
Author Organization [employer] Address [address] [place] [address] 7t [place] [address] Care Team Providers Care Document Imaging Manager Name Role Phone Umm Coley MD Primary Care Provider + West Meier RN Unavailable [phone] Reason for Visit * Reason Onset Date Comments Appointment Request 07/19/2025 Encounter Details Date Type Department Care Team ([facility] st Contact Info) Description 07/19/2025 Telephone [facility] MEDICINE [address] [place], [place] [phone] Umm Coley MD 230 [place], [place] [phone] Appointment Request Social History Tobacco Use Types [...] Description 09/12/2025 11:15 AM EST Office Visit [facility] MEDICINE [address] [place] [address] Umm Coley MD 230 [place] [address] 10/13/2025 11:45 AM EST Office Visit [facility] MEDICINE [address] [place] [address] Darrell Myers MD 230 [place] [address] 11/21/2025 1:00 PM EST Office Visit [facility] OPTOMETRY [address] [place], [place] [phone] Leonardo, Uyen, OD 230 [place] [address] documented as of this encounter Visit Diagnoses Not on filedocumented in this encounter Additional Health Concerns Assessment Noted Time PHQ-9 Depression Total Score: 18 025 12:18 PM EDT documented as of this encounter Care Teams Document Imaging Manager Relationship Specialty Start Date End Date Umm Coley MD [address] [place] [address] PCP - General Family Medicine 10/31/16 West Meier, BEBA [address] [place] [address] Registered Nurse Family Medicine 05/10/25 [facility] 05/18/25 documented as of this encounter
--- OUTSIDE RECORDS SUMMARY | 2025-09-07 15:50 | XMS_ITS | Encounter Summary ---
Author Organization [employer] Address [address] [place] [address] 7t [place] [address] Care Team Providers Care Handle And Vent Machine Operator Name Role Phone Umm Coley MD Primary Care Provider + West Meier RN Unavailable [phone] West Meier RN Unavailable [phone] Shannan Covington Unavailable Encounter Details Date Type Department Care Team (Latest Contact Info) Description 11/14/2019 Abstract [facility] CONVERSIONS Dental, Provider, DDS Social History Tobacco [...] Description 09/12/2025 11:15 AM EST Office Visit [facility] MEDICINE [address] [place] [address] Umm Coley MD [address] [place] [phone] 10/13/2025 11:45 AM EST Office Visit [facility] MEDICINE [address] [place] [phone] Darrell Myers MD [address] [place] [phone] 11/21/2025 1:00 PM EST Office Visit [facility] OPTOMETRY [address] [place] [address] Uyen Patterson, OD [address] [place] [address] documented as of this encounter Visit Diagnoses Not on filedocumented in this encounter Care Teams Handle And Vent Machine Operator Relationship Specialty Start Date End Date Umm Coley MD 230 [place] [address] PCP - General Family Medicine 10/31/16 West Meier RN 505 [place] [address] Buyer Tobacco HeadManager Target 01/12/25 04/25/25 West Meier RN 505 [place] [address] Registered Nurse Family Medicine 05/10/25 Shannan Covington 06/08/25 06/08/25 Eva Nunez Buyer Tobacco Head 04/05/24 07/06/24 [facility] 05/11/24 11/17/24 [facility] 11/14/24 01/17/25 [employer] 12/08/24 [facility] 05/18/25 documented as of this encounter
--- OUTSIDE RECORDS SUMMARY | 2025-09-07 15:50 | XMS_ITS | Encounter Summary ---
Author Organization [employer] Address [address] [facility] 7t [place] [address] Care Team Providers Care Olive Picker Name Role Phone Umm Coley MD Primary Care Provider + West Meier RN Unavailable [phone] Encounter Details Date Type Department Care Team (Late st Contact Info) Description 09/05/2025 Orders Only [facility] External Provider, [facility] Social History Tobacco Use Types Packs/Day [...] Description 09/12/2025 11:15 AM EST Office Visit [facility] MED[facility] [address] [place] [address] Umm Coley MD [address] [place] [address] 10/13/2025 11:45 AM EST Office Visit [facility] [address] [place] [address] Darrell Myers MD [address] [place] [address] 11/21/2025 1:00 PM EST Office Visit [facility] OPTOMETRY [address] [place] [address] Uyen Patterson, CATIE [address] [place] [address] documented as of this encounter Procedures Procedure Name Priority Date/Time Associated Diagnosis Comments STRESS TEST WITH MYOCARDIAL PERFUSION Routine 09/05/2025 11:02 AM EST documented in this encounter Results * Stress test with myocardial perfusion (09/05/2025 11:02 AM EST) 09/05/2025 11:0 2 AM EST Narrative [facility] IMAGING - 09/07/2025 8:52 AM EST [facility] [address] [place] [address] Nuclear Medicine Report Signed Patient: Diana Mcpherson MR#: [id number] : 1965 Acct:[id number] Age/Sex: 60 / F ADM Date: 09/05/25 Loc: [facility] Attending Dr: Anthony Curtis MD Ordering Physician: Anthony Curtis MD Date of Service: 09/05/25 Procedure(s): NM cardiolite stress test Accession Number(s): [id number] cc: Umm Coley MD; Anthony Curtis MD Reason for Exam: R06.00 - Dyspnea, unspecified Lexiscan Myocardial perfusion study Indication: Shortness of breath Technique: The patient was brought in for a Lexiscan perfusion study on 09/05/2025 and was injected 0.4 mg of Lexiscan intravenously. Within a minute of this injection 25 mCi of sestamibi was given intravenously. Images were obtained using the SPECT gamma camera interlaced with the gating device. Images were obtained in supine position. Resting perfusion study was performed on 09/06/2025. Patient was administered 25 mCi of sestamibi intravenously at rest. Images were then obtained in supine position. Total DLP 63 mGy-cm. Images were processed with the software and compared side to side in short axis, horizontal long axis and vertical long axis views. Findings: Raw aquisition reviewed. The stress perfusion study showed no significant perfusion abnormality. Both uncorrected as well as CT attenuation corrected images were reviewed. The gated study shows normal LV systolic function with calculated LVEF of 52%, but visually higher. LV cavity is normal in size. The gated study shows normal wall thickening and contraction of segments. Resting study shows no significant perfusion abnormality. Gating at rest reveals normal wall motion with ejection fraction at 56%. The findings are consistent with no clear reversible or fixed perfusion abnormality. NM/NM cardiolite stress test Impression: 1. Myocardial perfusion imaging study shows normal myocardial perfusion. 2. Gated LVEF is 52% during stress and 56% during rest, but visually appears higher. 3. Transient ischemic dilatation not present. EKG component of the test reported separately. Electronically signed by: Juan Ferrell MD 09/07/2025 08:49 AM EST Dictated By: Juan Ferrell MD Signed By: <Electronically signed by Juan Ferrell MD in OV> 09/07/25 0849 DD/ 1102 TD/TT: 09/06/25 0900 Equal Opportunity Director: Procedure Note Donotuseinterpreter, Image - 09/07/2025 [place] [address] Nuclear Medicine Report Signed Patient: Diana Mcpherson LMR#: [id number] : 1965Acct:[id number] Age/Sex: 60 / FADM Date: 09/05/25 Loc: [facility] Attending Dr: Anthony Curtis MD Ordering Physician: Anthony Curtis MD Date of Service: 09/05/25 Procedure(s): NM cardiolite stress test Accession Number(s): [id number] cc: Umm Coley MD; Anthony Curtis MD Reason for Exam: R06.00 - Dyspnea, unspecified Lexiscan Myocardial perfusion study Indication: Shortness of breath Technique: The patient was brought in for a Lexiscan perfusion study on 09/05/2025 and was injected 0.4 mg of Lexiscan intravenously. Within a minute of this injection 25 mCi of sestamibi was given intravenously. Images were obtained using the SPECT gamma camera interlaced with the gating device. Images were obtained in supine position. Resting perfusion study was performed on 09/06/2025. Patient was administered 25 mCi of sestamibi intravenously at rest. Images were then obtained in supine position. Total DLP 63 mGy-cm. Images were processed with the software and compared side to side in short axis, horizontal long axis and vertical long axis views. Findings: Raw aquisition reviewed. The stress perfusion study showed no significant perfusion abnormality. Both uncorrected as well as CT attenuation corrected images were reviewed. The gated study shows normal LV systolic function with calculated LVEF of 52%, but visually higher. LV cavity is normal in size. The gated study shows normal wall thickening and contraction of segments. Resting study shows no significant perfusion abnormality. Gating at rest reveals normal wall motion with ejection fraction at 56%. The findings are consistent with no clear reversible or fixed perfusion abnormality. NM/NM cardiolite stress test Impression: 1. Myocardial perfusion imaging study shows normal myocardial perfusion. 2. Gated LVEF is 52% during stress and 56% during rest, but visually appears higher. 3. Transient ischemic dilatation not present. EKG component of the test reported separately. Electronically signed by: Juan Ferrell MD 09/07/2025 08:49 AM [facility] Dictated By: Juan Ferrell MD Signed By: <Electronically signed by Juan Ferrell MD inOV> 09/07/25 0849 DD/ 1102 TD/TT: 09/06/25 0900 Equal Opportunity Director: us [facility] External Provider CV STRE SS PROCEDURES Final Result [facility] IMAGING [address] [place] [address] documented in this encounter Visit Diagnoses Not on filedocumented in this encounter Additional Health Concerns Assessment Noted Time PHQ-9 Depression Total Score: 18 025 12:18 PM EDT documented as of this encounter Care Teams Olive Picker Relationship Specialty Start Date End Date Umm Coley MD [address] [place] [address] PCP - General Family Medicine 10/31/16 West Meier, RN [address] [place] [address] Registered Nurse Family Medicine 05/10/25 [facility] 05/18/25 documented as of this encounter
--- OUTSIDE RECORDS SUMMARY | 2025-09-07 15:50 | XMS_ITS | Encounter Summary ---
Author Organization [employer] Address [address] [place] [address] 7t [place] [address] Care Team Providers Care Apparel Machinery Instructor Name Role Phone Umm Coley MD Primary Care Provider + [place] Meier RN Unavailable [phone] West Meier RN Unavailable [phone] Shannan Covington Unavailable Encounter Details Date Type Department Care Team (Latest Contact Info) Description 03/13/2022 Abstract [facility] CONVERSIONS Dental, Provider, DDS Social History [...] EST Office Visit [facility] MEDICINE [address] [place] [address] [phone] Umm Coley MD [address] [place] [address] [phone] 10/13/2025 11:45 AM EST Office Visit [facility] MEDICINE [address] [place] [address] [phone] Darrell Myers MD [address] [place] [address] [phone] 11/21/2025 1:00 PM EST Office Visit [facility] [address] [place] [address] Uyen Patterson, OD [address] [place] [address] documented as of this encounter Visit Diagnoses Not on filedocumented in this encounter Care Teams Apparel Machinery Instructor Relationship Specialty Start Date End Date Umm Coley MD [address] [place] [address] PCP - General Family Medicine 10/31/16 West Meier RN [address] [place] [address] Surveillance InvestigatorParachute Inspector 01/12/25 04/25/25 West Meier RN [address] [place] [address] Registered Nurse Family Medicine 05/10/25 Shannan Covington 06/08/25 06/08/25 Eva Nunez Surveillance Investigator 04/05/24 07/06/24 [facility] 05/11/24 11/17/24 [facility] 11/14/24 01/17/25 [employer] 12/08/24 [facility] 05/18/25 documented as of this encounter
--- OUTSIDE RECORDS SUMMARY | 2025-09-07 15:50 | XMS_ITS | Encounter Summary ---
Author Organization [employer] Address [address] [place] [address] 7t [place] [address] Care Team Providers Care Box Sealing Machine Operator Name Role Phone Umm Coley MD Primary Care Provider + West Meier RN Unavailable [phone] West Meier RN Unavailable [phone] Shannan Covington Unavailable Reason for Visit * Reason Onset Date Comments appt 01/08/2024 Encounter Details Date Type Department Care Team (Late st Contact Info) Description 01/08/2024 Telephone [facility] [address] [place], [place] [phone] Homer Strong DDS [address], [place] [phone] appt Social History Tobacco Use Types Packs/Day [...] Description 09/12/2025 11:15 AM EST Office Visit [facility] MEDICINE [address] [place] [address] Umm Coley MD [address] [place] [phone] 10/13/2025 11:45 AM EST Office Visit [facility] MEDICINE [address] [place] [address] Darrell Myers MD [address] [place] [phone] 11/21/2025 1:00 PM EST Office Visit [facility] OPTOMETRY [address] [place], [place] [phone] Leonardo, Uyen, OD [address] [place] [address] documented as of this encounter Visit Diagnoses Not on filedocumented in this encounter Additional Health Concerns Assessment Noted Time PHQ-9 Depression Total Score: 21 024 11:31 AM EST documented as of this encounter Care Teams Box Sealing Machine Operator Relationship Specialty Start Date End Date Umm Coley MD [address] [place], [place] [phone] PCP - General Family Medicine 10/31/16 West Meier, BEBA [address] [place] [address] Feather StitcherAngle Furnaceman 01/12/25 04/25/25 West Meier, BEBA [address] [place] [address] Registered Nurse Family Medicine 05/10/25 Shannan Covington 06/08/25 06/08/25 Eva Nunez Feather Stitcher 04/05/24 07/06/24 [facility] 05/11/24 11/17/24 [facility] 11/14/24 01/17/25 [email or web address] 12/08/24 [facility] 05/18/25 documented as of this encounter
--- OUTSIDE RECORDS SUMMARY | 2025-09-07 15:50 | XMS_ITS | Encounter Summary ---
Author Organization [employer] Address [address] [facility] 7t [place] [address] Care Team Providers Care Foreign Language Professor Name Role Phone Umm Coley MD Primary Care Provider + West Meier RN Unavailable [phone] Reason for Visit * Reason Onset Date Comments Med Refill 06/28/2025 Encounter Details Date Type Department Care Team (Late st Contact Info) Description 06/28/2025 Telephone [facility] MEDICINE [address] [place], [place] [phone] Umm Coley MD [address] [place], [place] [phone] Med Refill Social History Tobacco Use Types [...] MCG (1999) capsule To be sent to: [facility]/pharmacy #[id number] [place], [place] - [address] [place] [address] documented in this encounter Plan of Treatment Upcoming Encounters Date Type Department Care Team ([facility] st Contact Info) Description 09/12/2025 11:15 AM EST Office Visit [facility] [address] [place] [address] Umm Coley MD [address] [place] [address] 10/13/2025 11:45 AM EST Office Visit [facility] [address] [place] [address] Darrell Myers MD [address] [place] [address] 11/21/2025 1:00 PM EST Office Visit [facility] OPTOMETRY [address] [place] [address] Leonardo, Uyen, OD [address] [place] [address] documented as of this encounter Visit Diagnoses Not on filedocumented in this encounter Additional Health Concerns Assessment Noted Time PHQ-9 Depression Total Score: 10 024 9:17 AM EDT documented as of this encounter Care Teams Foreign Language Professor Relationship Specialty Start Date End Date Umm Coley MD [address] [place] [address] PCP - General Family Medicine 10/31/16 West Meier, BEBA [address] [place] [address] Registered Nurse Family Medicine 05/10/25 [facility] 05/18/25 documented as of this encounter
--- OUTSIDE RECORDS SUMMARY | 2025-09-07 15:50 | XMS_ITS | Clinical Summary ---
Author Organization [employer] Address [address] [place] [address] [address] [place] [address] Care Team Providers Care Ed Teacher Name Role Phone Shalonda Coley MD Primary Care Provider + [place] RN Unavailable [phone] Allergies Active Allergy Reactions Criticality Noted [...] Sp breast CA chemotherapy toxicity, follow-up with public safety police. Doing better on Symbicort daily, has follow-up with public safety police next month. She is a non-smoker, she declines influenza COVID or PCV immunization today. Advised to have them and RSV at earliest convenience at a local pharmacy Myocardiopathy ([facility]) 08/10/2025 Assessment & Plan (08/10/2025 3:25 PM [...] psych medication as per psych prescriber at [facility]. She is on Colace daily for [...] regarding medication management by current VNA services ([facility]). I asked her if she wants me [...] continue f/u with mental health provider in [facility]. Dry eye 05/16/2024 Assessment & Plan [...] She was referred to vestibular therapy at [facility], information given to pt to schedule appointment [...] a complaint to the landlord, building medical practice administrator, and housing department. I gave them information about legal process specialist in the [place] Will refer to progressive care manager to assist with housing due to poor conditions of current apartment Pt already has a letter from counselor, will FU at next appointment Household circumstance affecting care 02/03/2023 Assessment & Plan (12/11/2023 9:49 AM EST): Pt has depression and difficulty with memory. She has a [employer] and a VNA to manage med, pharma education. VNA can go a few times per week once a POC has been discussed and taught to pt's caregivers Assessment & Plan (04/02/2023 2:38 PM EDT): Pt continues to live in the same apartment with anxiety from recent of her neighbor. Already in contact with [facility] and team is helping her with letters [...] EST): Pt seen psychotherapist and psychiatry at [facility], needs medication management due to Hx of SA and non-compliance. No change in medications, needs to continue medication administration by VNA and keep in a lock box, pharmical education, and prevention of hospital admissions. I will call iMr ochoa at pt's request to transfer VNA services. Assessment & Plan (02/02/2024 3:44 PM EDT): - Medication list reconciled and discussed with patient, meds are to be administered by VNA due to memory issues, risk of poor compliance. - She will continue close follow up with [facility]. I explained to patient that many [...] Plan (02/26/2023 1:11 PM EDT): Pt seeing [facility] MH team every week. I counseled her [...] we can organize the medications. Pt and [employer] agreed with the plan of care. POC discussed with team nurse and scientific laboratory supervisor. Assessment & Plan (04/28/2024 3:33 PM [...] new CM program, she has a new [employer] and VNA goes daily to administer medication and thus psychoeducation. Continue close follow-up with [facility] psychiatry prescriber, she is on multiple medications for depression, anxiety and insomnia. Continue close follow-up with counselor Niyah Whatley from [facility] psychiatrist, she feels safe at home and is able to reach out for safety Patient denies any acute or recent SI or HI Assessment & Plan (05/02/2025 3:09 PM EDT): Worsening related to external circumstances and also to lack of medications as she has not been taking medications as prescribed. As per the recent medication list requested by telehealth case manager on March 2025, she was on BuSpar 15 mg 3 times daily, clonazepam twice daily as needed anxiety, mirtazapine 30 mg nightly, olanzapine 20 mg nightly, prazosin 4 mg nightly and sertraline 200 mg/day (See encounter under media on 03/03/2025). She will continue to follow [facility] for pharmacotherapy and continue to see her therapist Niyah Whatley regularly (ph#[phone]). At this time she feels safe at home and is able to reach out for safety both of her therapist, the crisis and I told her that she can come to walk-in clinic as needed worsening anxiety. No change in medications at this time, will call [facility] psychiatry for med reconciliation and VNA to [...] (04/28/2024 5:25 PM EDT): Pt seen by [facility] clinician, continue psychotherapy every week. She needs [...] she needs pharmaco education. She's followed by [facility] psych. I told her and [employer] she needs to bring all her med bottles so we can go over her meds until the new VNA service is restarted. Her [employer] is helping her as well as her daughter With meds for now. Pt feels safe. Will send new Rx if needed with prescription in yemeni so VNA can read it (one of the issues being that med rx were written in Azeri and the VNA that took over didn't understand the directions). Will check with VNA service to see what current situation is, pt wants to start using a new VNA service (the one her neighbor uses, [employer] [facility]) . 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 Take naproxen or Tylenol as needed She needs a [employer] to help her with ADLs Fibromyositis 04/15/2012 [...] Plan (05/02/2024 5:56 PM EDT): -Followed by [facility] - last available consult note March [...] has to reschedule pharmacological stress test in [facility] dc amlodipine and flexeril and take [...] Encounters Date Type Department Care Team Description 09/07/[address] [address] Shalonda Coley MD Appointment Request 09/05/2025 Orders Only [facility] External Provider, [facility] 08/29/[address] [address] Shalonda Coley MD 08/22/2025 Patient Outreach [facility] MED & PEDS [address] [place], [place] [phone] Shalonda Coley MD Care Management (C3CM- F/U call) 08/17/[address] [address] Shalonda Coley MD DME 08/11/[address] [address] Shalonda Coley MD DME 08/10/2025 11:45 AM EDT Office Visit [address] [address] Shalonda Coley MD Wrist fracture, closed, right, with routine healing, subsequent encounter (Primary Dx); Radiation fibrosis of lung (CMS/HCC); Other cardiomyopathy (HCC); Ductal carcinoma of right breast (CMS/HCC) (HCC); 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); Other specified hearing loss of right ear, unspecified hearing status on contralateral side; Vitamin D deficiency; Localized osteoarthritis of left knee 08/10/2025 Travel 08/10/[address] [address] Shalonda Coley MD Chart prep 07/19/[address] [phone] Shalonda Coley MD Appointment Request 07/18/2025 Orders Only [facility] External Provider, [facility] 07/14/2025 Telephone [facility] MEDICINE [address] [place] [address] Shalonda Coley MD Med Refill 07/12/2025 11:00 AM EDT Office Visit [address] [address] Shalonda Coley MD Other specified hypotension (Primary Dx) 07/12/2025 Travel 07/11/[address] [address] Shalonda Coley MD chart prep 07/10/2025 Patient Outreach [address] [address] Shalonda Coley MD Care Management (C3CM- F/U call # 3) 07/06/[address] [address] Shalonda Coley MD Nurse Triage 07/06/[address] [address] Shalonda Coley MD 06/29/[address] [address] Shalonda Coley MD Nurse Triage 06/28/[address] [address] Shalonda Coley MD Med Refill 06/28/[address] [address] Shalonda Coley MD Rash 06/26/[address] [address] Shalonda Coley MD letter 06/23/2025 11:45 AM EDT Office Visit [address] [address] Zara Johnson DO Moderate persistent asthma with acute exacerbation (Primary Dx); Pain of finger of left hand 06/23/2025 Travel 06/22/[address] [address] Shalonda Coley MD form update 06/22/[address] [address] Shalonda Coley MD Chart Prep 06/20/[address] [phone] Shalonda Coley MD ER Follow-up 06/19/[address] [phone] Shalonda Coley MD Nurse Triage 06/08/2025 Patient Outreach [address] [phone] Shalonda Coley MD Care Management (C3CM- F/U call # 2) 06/07/[address] [phone] Shalonda Coley MD Neuropathy from Last 3 Months Immunizations Immunization Administration [...] 11:15 AM EST Office Visit [facility] MEDICINE [address] [place] [address] Shalonda Coley MD [address] [place] [address] 10/13/2025 11:45 AM EST Office Visit [facility] MEDICINE [address] [place] [address] Darrell Myers MD [address] [place] [address] 11/21/2025 1:00 PM EST Office Visit [facility] OPTOMETRY [address] [place] [address] Uyen Patterson OD [address] [place] [address] Health Maintenance Due Date Last Done Comments [...] MYOCARDIAL PERFUSION Routine 09/05/2025 11:02 AM EST XR ABDOMEN 2V+ Routine 08/16/2025 11:17 AM [...] EDT Pain of finger of left hand PROPHYLAXIS - ADULT Routine 06/06/2025 1 :00 [...] Recently Relevant to Health Maintenance Results * Stress test with myocardial perfusion (09/05/2025 11:02 AM EST) 09/05/2025 11:0 2 AM EST [facility] IMAGING - 09/07/2025 8:52 AM EST [place] [address] Nuclear Medicine Report Signed Patient: Diana Mcpherson MR#: M [id number] : 1965 Acct:[id number] Age/Sex: 60 / F ADM Date: 09/05/25 Loc: CARD Attending Dr: Anthony Curtis MD Ordering Physician: Anthony Curtis MD Date of Service: 09/05/25 Procedure(s): NM cardiolite stress test Accession Number(s): [id number] cc: Shalonda Coley MD; Anthony Curtis MD Reason for [...] by: Juan Ferrell MD 09/07/2025 08:49 AM [facility] Dictated By: Juan Ferrell MD Signed By: <Electronically signed by Juan Ferrell MD in OV> 09/07/25 0849 DD/ 1102 TD/TT: 09/06/25 0900 [employer]: Procedure Note Donotuseinterpreter, Image - 09/07/[address] [address] Nuclear Medicine Report Signed Patient: Diana Mcpherson LMR#: M [id number] : 1965Acct:[id number] Age/Sex: 60 / FADM Date: 09/05/25 Loc: HO.CARD Attending Dr: Anthony Curtis MD Ordering Physician: Anthony Curtis MD Date of Service: 09/05/25 Procedure(s): IA cardiolite stress test Accession Number(s): [id number] cc: Shalonda Coley MD; Anthony Curtis MD Reason for [...] no clear reversible or fixed perfusion abnormality. IA/IA cardiolite stress test Impression: 1. Myocardial perfusion [...] 09/07/25 0849 DD/ 1102 TD/TT: 09/06/25 0900 Detective Homicide Squad: [facility] External Provider CV STRE SS PROCEDURES Final Result [facility] IMAGING [address] [place] [phone] * XR Abdomen 2 View minimum (08/16/2025 11:17 AM EDT) Only the most recent of2 resultswithin the time period is included. Anatomical Region Laterality Modality Abdomen Radiographic Kyleigh ging 08/16/2025 11:1 7 AM EDT Narrative 08/16/2025 11:34 AM EDT [address] [address] XRay Report Signed Patient: Diana Mcpherson MR#: M [id number] : 1965 Acct:[id number] Age/Sex: 60 / F ADM Date: 08/16/25 Loc: HO.XRAY Attending Dr: Zee ALCANTARA Ordering Physician: Zee Palma Date of Service: 08/16/25 Procedure(s): XR abdomen min 2V Accession Number(s): [id number] cc: Zee Palma; Shalonda Coley MD Reason [...] 08/16/25 1131 DD/ 1117 TD/TT: 08/16/25 1120 Detective Homicide Squad: Procedure Note Donotuseinterpreter, Image - 08/16/[address] [address] XRay Report Signed Patient: Diana Mcpherson LMR#: M [id number] : 1965Acct:[id number] Age/Sex: 60 / FADM Date: 08/16/25 Loc: HO.XRAY Attending Dr: Zee ALCANTARA Ordering Physician: Zee Palma Date of Service: 08/16/25 Procedure(s): XR abdomen min 2V Accession Number(s): [id number] cc: Zee Palma; Shalonda Coley MD Reason [...] 08/16/25 1131 DD/ 1117 TD/TT: 08/16/25 1120 Detective Homicide Squad: [facility] External Provider IMG XR PROCEDURES Final Result * XR Hand 3+Views Bilateral (08/07/2025 12:11 PM EDT) Anatomical Region Laterality Modality Upper Extremities, Hand Bilateral Radiogra phic Imaging 08/07/2025 12:1 1 PM EDT Narrative 08/07/2025 1:08 PM EDT [address] [address] XRay Report Signed Patient: Diana Mcpherson MR#: M [id number] : 1965 Acct:[id number] Age/Sex: 60 / F ADM Date: 08/07/25 Loc: MERVAT Attending Dr: Girish Frye MD Ordering Physician: Girish Frye MD Date of Service: 08/07/25 Procedure(s): XR Hand Bilat min 3v Accession Number(s): [id number] cc: Shalonda Coley MD; Girish Frye MD [...] 08/07/25 1306 DD/ 1211 TD/TT: 08/07/25 1223 [employer] Squad: OLYA Procedure Note Donotuseinterpreter, Image - 08/07/[address] [address] XRay Report Signed Patient: Diana Mcpherson LMR#: M [id number] : 1965Acct:[id number] Age/Sex: 60 / FADM Date: 08/07/25 Loc: MERVAT Attending Dr: Girish Frye MD Ordering Physician: Girish Frye MD Date of Service: 08/07/25 Procedure(s): XR Hand Bilat min 3v Accession Number(s): [id number] cc: Shalonda Coley MD; Girish Frye MD [...] 08/07/25 1306 DD/ 1211 TD/TT: 08/07/25 1223 [employer] Squad: OLYA [facility] External Provider IMG XR PROCEDURES Final Result * XR Knee 3 Views Bilateral (08/07/2025 12:05 PM EDT) Anatomical Region Laterality Modality Lower Extremities, Knee Bilateral Radiogra phic Imaging 08/07/2025 12:0 5 PM EDT Narrative 08/07/2025 12:34 PM EDT [address] [address] XRay Report Signed Patient: Diana Mcpherson MR#: M [id number] : 1965 Acct:[id number] Age/Sex: 60 / F ADM Date: 08/07/25 Loc: HOOLAYINKA Attending Dr: Girish Frye MD Ordering Physician: Girish Frye MD Date of Service: 08/07/25 Procedure(s): XR Knee Philip 3V Accession Number(s): [id number] cc: Shalonda Coley MD; Girish Frye MD [...] 08/07/25 1232 DD/ 1205 TD/TT: 08/07/25 1223 [employer] H[employer] Squad: Procedure Note Donotuseinterpreter, Image - 08/07/[address] [address] XRay Report Signed Patient: Diana Mcpherson LMR#: M [id number] : 1965Acct:[id number] Age/Sex: 60 / FADM Date: 08/07/25 Loc: HO.XRPINKY Attending Dr: Girish Frye MD Ordering Physician: Girish Frye MD Date of Service: 08/07/25 Procedure(s): XR Knee Philip 3V Accession Number(s): [id number] cc: Shalonda Coley MD; Girish Frye MD [...] 08/07/25 1232 DD/ 1205 TD/TT: 08/07/25 1223 [employer] Squad: OLYA [facility] External Provider IMG XR PROCEDURES Final Result * XR Thoracic Spine 2 Views (07/18/2025 1:56 PM EDT) Anatomical Region Laterality Modality Spine, T-spine Radiographic Kyleigh ging 07/18/2025 1:56 PM EDT Narrative 07/18/2025 2:18 PM EDT [place] [address] XRay Report Signed Patient: Diana Mcpherson MR#: M [id number] : 1965 Acct:[id number] Age/Sex: 60 / F ADM Date: 07/18/25 Loc: MERVAT Attending Dr: Zee ALCANTARA Ordering Physician: Zee Palma Date of Service: 07/18/25 Procedure(s): XR thoracic spine 2V Accession Number(s): [id number] cc: Zee Palma; Shalonda Coley MD Reason [...] 07/18/25 1414 DD/ 1356 TD/TT: 07/18/25 1411 [employer] Homicide Squad: Procedure Note Donotuseinterpreter, Image - 07/18/2025 [place] [address] XRay Report Signed Patient: Diana Mcpherson LMR#: M [id number] : 1965Acct:[id number] Age/Sex: 60 / FADM Date: 07/18/25 Loc: HOOLAYINKA Attending Dr: Zee ALCANTARA Ordering Physician: Zee Palma Date of Service: 07/18/25 Procedure(s): XR thoracic spine 2V Accession Number(s): [id number] cc: Zee Palma; Shalonda Coley MD Reason [...] 07/18/25 1414 DD/ 1356 TD/TT: 07/18/25 1411 Detective Homicide Squad: [facility] External Provider IMG XR PROCEDURES Edited Result - Final * XR Ribs 2 Views Right (07/18/2025 1:50 PM EDT) Anatomical Region Laterality Modality Rib, Abdomen Right Radiographic Kyleigh ging 07/18/2025 1:50 PM EDT Narrative 07/18/2025 2:19 PM EDT [place] [address] XRay Report Signed Patient: Diana Mcpherson MR#: M [id number] : 1965 Acct:[id number] Age/Sex: 60 / F ADM Date: 07/18/25 Loc: MERVAT Attending Dr: Zee ALCANTARA Ordering Physician: Zee Palma Date of Service: 07/18/25 Procedure(s): XR ribs RT 2V Accession Number(s): [id number] cc: Zee Palma; Shalonda Coley MD Reason [...] signed by Beka Packer MD in OV> 07/18/251414 DD/ 135 TD/TT: 07/18/251411 [employer] Squad: Procedure Note Donotuseinterpreter, Image - 07/18/[address] [address] XRay Report Signed Patient: Diana Mcpherson LMR#: M [id number] : 1965Acct:[id number] Age/Sex: 60 / FADM Date: 07/18/25 Loc: MERVAT Attending Dr: Zee ALCANTARA Ordering Physician: Zee Palma Date of Service: 07/18/25 Procedure(s): XR ribs RT 2V Accession Number(s): [id number] cc: Zee Palma; Shalonda Coley MD Reason [...] signed by Beka Packer MD in OV> 07/18/251414 DD/ 135 TD/TT: 07/18/251411 Detective Homicide Squad: [facility] External Provider IMG XR PROCEDURES Edited Result - Final * Urinalysis w/reflex microscopic (07/18/2025 1:33 PM EDT) Color Urine Yellow [facility] Appearance Urine Clear [facility] PH 5.5 5.0 - 9.0 [facility] Glucose Urine UA Negative Negative mg/dL [facility] Urine Blood Negative Negative [facility] Specific Braymer - Urine 1.020 1.005 - 1.025 [facility] Urine Protein Negative Neg-Trace mg/dL [facility] Urine Ketones Negative Negative mg/dL [facility] Nitrite Urine Negative Negative [facility] Leukocyte Esterase Urine Negative Negative [facility] 07/18/2025 1:33 PM EDT 07/18/2025 2:15 PM EDT Narrative [facility] - 07/18/2025 2:37 PM EDT Urine, Clean Catch us Generic External Data Provider LAB URINE ORDERAB LES Final Result Performing Organization Address City/State/[facility] de Phone Number [facility] [address] [place] [phone] * XR Fingers 2+ Views Left (06/23/2025 12:26 PM EDT) Anatomical Region Laterality Modality Upper Extremities, Fingers Left Radio graphic Imaging 06/23/2025 12:2 6 PM EDT Narrative 06/23/2025 1:27 PM EDT [address] [address] XRay Report Signed Patient: Diana Mcpherson MR#: M [id number] : 1965 Acct:[id number] Age/Sex: 60 / F ADM Date: 06/23/25 [facility]: Zara Johnson DO Ordering Physician: Zara Johnson DO Date of Service: 06/23/25 Procedure(s): XR finger LT min 2V Accession Number(s): [id number] cc: Zara Johnson DO EXAMINATION: XR FINGER, [...] 06/23/25 1324 DD/ 1226 TD/TT: 06/23/25 1310 [facility] H[facility] Squad: Procedure Note Donotuseinterpreter, Image - 06/23/[address] [address] XRay Report Signed Patient: Diana Mcpherson LMR#: M [id number] : 1965Acct:[id number] Age/Sex: 60 / FADM Date: 06/23/25 Loc: HO.HHCX Attending Dr: Zara Johnson DO Ordering Physician: Zara Johnson DO Date of Service: 06/23/25 Procedure(s): XR finger LT min 2V Accession Number(s): [id number] cc: Zara Johnson DO EXAMINATION: XR FINGER, [...] 06/23/25 1324 DD/ 1226 TD/TT: 06/23/25 1310 [employer] [facility] Squad: Zara Johnson DO IMG XR PROCEDURES Final Resu lt * BI Mammogram Screening Tomosynthesis Bilateral (11/29/2024 8:45 AM EST) Anatomical Region Laterality Modality Breast Bilateral Mammography 11/29/2024 8:45 AM EST Narrative 12/07/2024 3:35 PM EST [facility] [address] [place] [address] Mammography Report Signed Patient: Diana Myles MR#: [id number] : 1965 Acct:[id number] Age/Sex: 59 / F ADM Date: 11/29/24 Loc: HO.MAMMO Attending Dr: Shalonda Coley MD Ordering Physician: Shalonda Coley MD Results: 2Be nign Findings Date of Service: 11/29/24 Follow Up: 1 Year From [facility] Mammogram Procedure(s): MM tomosynthesis screening BI Accession Number(s): [id number] cc: Shalonda Coley MD EXAMINATION: MM SCREENING [...] 12/07/24 1532 DD/ 0845 TD/TT: 11/29/24 0915 Detective Homicide Squad: Procedure Note Donotuseinterpreter, Image - 12/07/2024 [facility] [address] [place] [address] Mammography Report Signed Patient: Diana Myles LMR#: [id number] : 1965Acct:[id number] Age/Sex: 59 / FADM Date: 11/29/24 Loc: HO.MAMMO Attending Dr: Shalonda Coley MD Ordering Physician: Shalonda Coley MDResults: 2Be nign Findings Date of Service: 11/29/24Follow Up: 1 Year From [facility] Mammogram Procedure(s): MM tomosynthesis screening BI Accession Number(s): [id number] cc: Shalonda Coley MD EXAMINATION: MM SCREENING [...] 12/07/24 1532 DD/ 0845 TD/TT: 11/29/24 0915 [facility] Squad: Shalonda Coley MD IMG BI PROCEDURES Edited Result - Final * (ABNORMAL) Colonoscopy (07/30/2023) Colonoscopy Abnormal( A) Normal [facility] Comment:SSL polyp Shalonda Coley MD HEALTH MAINTENANCE Final Result [facility] [address] [place] [address] [phone] * Thinprep PAP and HPV nRNA E6/E7 (10/08/2022 9:30 AM EST) Clinical Information: None given [employer] [facility] [employer] [facility] LMP: NONE GIVEN [facility] [facility] [employer] [facility] Prev. PAP: NONE GIVEN [facility] [employer] [facility] Prev. BX: NONE GIVEN [facility] [employer] [facility] SOURCE: None given [employer] Diagnost Statement Of Adequacy: SATISFACTORY FOR EVALUATION Age and/or menstrual status not provided [employer] Interpretation/Re sult: Pembe [employer] [facility] Comment: Negative for intraepithelial lesion or malignancy. Atrophic pattern; predominantly parabasal cells Electroplating Technician: Qu est [employer] [facility] Comment: DMM, CT(ASCP) CT screening location: [address] [address] Review Electroplating Technician: [employer] [place] [employer] Comment: MARIA TERESA MENENDEZ(ASCP) CT screening location: [place] [address] (Always Message) [facility] [employer] [place] [employer] Comment: EXPLANATORY NOTE: The Pap is a [...] HPV nRNA E6/E7 Not Detected Not Detected [employer] Comment: Methodology: Correspondence School Teacher-Mediated Amplification This assay detects E6/E7 viral messenger RNA (mRNA) from 14 high-risk HPV types (16,18,31,33,35,39,45,51,52,56,58,59,66,68). Cervical sources are required for HPV testing. If a vaginal source from a patient who has had a total hysterectomy with removal of cervix was submitted, please contact the testing laboratory for alternative testing options. For additional information, please refer to http://education.LawPal/faq/OHA409l2 (This link if provided for information/ educational purposes only.) 10/08/2022 9:30 AM EST 10/10/2022 1:07 AM EST Narrative [facility] - 10/14/2022 7:08 PM EST FASTING: UNKNOWN Shauna Matamoros [facility] PATHOLOGY ORDERABLES Final Result [facility] [address] [place] [address], [place] [address] [email or web address] [address] [place] [address], [place] [phone] * HIV AB/AG (04/30/2022 11:28 AM EDT) [...] of detection of this assay. The [employer] HIV Ag/Ab Combo assay result and supplemental [...] B Core Antibody Nonreactive Nonreactive [facility] 04/30/2022 11:2 8 AM EDT us Shalonda Coley MD HISTORICAL/NON ORDERABLE LABS Final Result Performing Organization Address City/State/[facility] Co de Phone Number [facility] [address] from Last 3 Months or Most Recently Relevant to Health Maintenance [facility] AD[facility] Care Teams Ed Teacher Relationship Specialty Start Date End Date Shalonda Coley MD [address] [place] [address] PCP - General Family Medicine 10/31/16 West Meier, BEAB [address] [place] [address] Registered Nurse Family Medicine 05/10/25 [facility] 05/18/25
--- OUTSIDE RECORDS SUMMARY | 2025-09-07 15:50 | XMS_ITS | Encounter Summary ---
Author Organization [employer] Address 75 [facility] 7t [place] [address] Care Team Providers Care Senior Dentist Name Role Phone Umm Coley MD Primary Care Provider + West Meier RN Unavailable [phone] Reason for Visit * Reason Onset Date Comments form update 06/22/2025 Encounter Details Date Type Department Care Team ([facility] st Contact Info) Description 06/22/2025 Telephone [facility] MEDICINE 230 [place], [place] [phone] Umm Coley MD 230 [place], [place] [phone] form update Social History Tobacco Use Types [...] 10:42 AM EDT [facility]c [facility] update on form faxed over for pt plan of care Contact Yahir at [phone] documented in this encounter Plan of Treatment Upcoming Encounters Date Type Department Care Team ([facility] st Contact Info) Description 09/12/2025 11:15 AM EST Office Visit [facility] MEDICINE [address] [place] [address] [place] [address] Umm Coley MD 230 [place] [address] 10/13/2025 11:45 AM EST Office Visit [facility] MEDICINE 230 [place] [address] Darrell Myers MD 230 [place] [address] 11/21/2025 1:00 PM EST Office Visit [facility] OPTOMETRY [address] [place], [place] [phone] Uyen Patterson, OD 230 [place] [address] documented as of this encounter Visit Diagnoses Not on filedocumented in this encounter Additional Health Concerns Assessment Noted Time PHQ-9 Depression Total Score: 10 024 9:17 AM EDT documented as of this encounter Care Teams Senior Dentist Relationship Specialty Start Date End Date Umm Coley MD 230 [place] [address] PCP - General Family Medicine 10/31/16 West Meier, BEBA [address] [place] [address] Registered Nurse Family Medicine 05/10/25 [facility] 05/18/25 documented as of this encounter
--- OUTSIDE RECORDS SUMMARY | 2025-09-07 15:50 | XMS_ITS | Encounter Summary ---
Author Organization [employer] Address [address] [place] [address] 7t [place] [address] Care Team Providers Care Hurl Shaker Name Role Phone Umm Coley MD Primary Care Provider + West Meier RN Unavailable [phone] West Meier RN Unavailable [phone] Shannan Covington Unavailable Encounter Details Date Type Department Care Team (Latest Contact Info) Description 09/16/2022 Abstract [facility] CONVERSION[facility] Dental, Provider, DDS Social History [...] Description 09/12/2025 11:15 AM EST Office Visit [facility] MED[facility]INE [address] [place] [address] [phone] Umm Coley MD [address] [place] [address] [phone] 10/13/2025 11:45 AM EST Office Visit [facility] MED[facility] [address] [place] [address] [phone] Darrell Myers MD [address] [place] [address] [phone] 11/21/2025 1:00 PM EST Office Visit [facility] OPTOMETRY [address] [place] [address] Uyen Patterson, OD 230 [place] [address] documented as of this encounter Visit Diagnoses Not on filedocumented in this encounter Care Teams Hurl Shaker Relationship Specialty Start Date End Date Umm Coley MD 230 [place] [address] PCP - General Family Medicine 10/31/16 West Meier RN 505 [place] [address] Hot PatcherHvac Engineer 01/12/25 04/25/25 West Meier RN 505 [place] [address] Registered Nurse Family Medicine 05/10/25 Shannan Covington 06/08/25 06/08/25 Eva Nunez Hot Patcher 04/05/24 07/06/24 [facility] 05/11/24 11/17/24 [facility] 11/14/24 01/17/25 [employer] 12/08/24 [facility] 05/18/25 documented as of this encounter
--- OUTSIDE RECORDS SUMMARY | 2025-09-07 15:50 | XMS_ITS | Encounter Summary ---
Author Organization [employer] Address [address] [place] [address] 7t [place] [address] Care Team Providers Care Loan Interviewer Name Role Phone Umm Coley MD Primary Care Provider + West Meier RN Unavailable [phone] West Meier RN Unavailable [phone] Shannan Covington Unavailable Encounter Details Date Type Department Care Team (Late st Contact Info) Description 09/24/2022 Abstract [facility] 230 [place] [address] Dental, Provider, DDS Social History Tobacco Use [...] Description 09/12/2025 11:15 AM EST Office Visit [facility] MED[facility]INE [address] [place] [address] Umm Coley MD 230 [place] [address] 10/13/2025 11:45 AM EST Office Visit [facility] [address] [place] [address] Darrell Myers MD 230 [place] [address] 11/21/2025 1:00 PM EST Office Visit [facility] OPTOMETRY [address] [place] [address] Uyen Patterson, OD 230 [place] [address] documented as of this encounter Procedures Procedure [...] filedocumented in this encounter Care Teams Loan Interviewer Relationship Specialty Start Date End Date Umm Coley MD 230 [place] [address] PCP - General Family Medicine 10/31/16 West Meier RN 505 [place] [address] Rules ExaminerTumblers Supervisor 01/12/25 04/25/25 West Meier RN 505 [place] [address] Registered Nurse Family Medicine 05/10/25 Shannan Covington 06/08/25 06/08/25 Eva Nunez Rules Examiner 04/05/24 07/06/24 [facility] 05/11/24 11/17/24 [facility] 11/14/24 01/17/25 [employer] 12/08/24 [facility] 05/18/25 documented as of this encounter
--- OUTSIDE RECORDS SUMMARY | 2025-09-07 15:50 | XMS_ITS | Encounter Summary ---
Author Organization [employer] Address [address] [place] [address] 7t [place] [address] Care Team Providers Care Dry Cleaning Checker Name Role Phone Umm Coley MD Primary Care Provider + West Meier RN Unavailable [phone] Reason for Visit * Reason Onset Date Comments Appointment Request 09/07/2025 Encounter Details Date Type Department Care Team ([facility] st Contact Info) Description 09/07/2025 Telephone [facility] MEDICINE 230 [place], [place] [phone] Umm Coley MD 230 [place], [place] [phone] Appointment Request Social History Tobacco Use Types [...] Telephone Encounter - Tanika Acuna [place] - 09/07/2025 9:42 AM EST T/C pt has been schedule for 09/12 pt has agreed to appointment * Telephone Encounter - Roshan Carranza - 09/07/2025 8:20 AM EST Tc from pt requesting to schedule apt with provider Contact pt at [phone] (australian) documented in this encounter Plan of Treatment Upcoming Encounters Date Type Department Care Team (Late st Contact Info) Description 09/12/2025 11:15 AM EST Office Visit [facility] MEDICINE 230 [place] [address] Umm Coley MD 230 [place] [address] 10/13/2025 11:45 AM EST Office Visit [facility] MEDICINE 230 [place] [address] Darrell Myers MD 230 [place] [address] 11/21/2025 1:00 PM EST Office Visit [facility] OPTOMETRY 267 [place], [place] [phone] Uyen Patterson, OD 230 [place] [address] documented as of this encounter Visit Diagnoses Not on filedocumented in this encounter Additional Health Concerns Assessment Noted Time PHQ-9 Depression Total Score: 18 025 12:18 PM EDT documented as of this encounter Care Teams Dry Cleaning Checker Relationship Specialty Start Date End Date Umm Coley MD 230 [place] [address] PCP - General Family Medicine 10/31/16 West Meier, BEBA 505 [place] [address] Registered Nurse Family Medicine 05/10/25 [facility] 05/18/25 documented as of this encounter
--- OUTSIDE RECORDS SUMMARY | 2025-09-07 15:50 | XMS_ITS | Encounter Summary ---
Author Organization [employer] Address 75 [facility] 7t [place] [address] Care Team Providers Care Highway Engineering Technician Name Role Phone Umm Coley MD Primary Care Provider + West Meier RN Unavailable [phone] Reason for Visit * Reason Comments Med Refill Encounter Details Date Type Department Care Team (Late st Contact Info) Description 07/06/2025 Refill [facility] MEDICINE 230 [place], [place] [phone] Umm Coley MD 230 [place], [place] [phone] Social History Tobacco Use Types Packs/Day Years [...] [facility] [address] [place] [address] Umm Coley MD [address] [place] [address] 10/13/2025 11:45 AM EST Office Visit [facility] MEDICINE [address] [place] [address] Darrell Myers MD [address] [place] [address] 11/21/2025 1:00 PM EST Office Visit [facility] OPTOMETRY [address] [place], [place] [phone] Uyen Patterson, OD 230 [place] [address] documented as of this encounter Visit Diagnoses Not on filedocumented in this encounter Additional Health Concerns Assessment Noted Time PHQ-9 Depression Total Score: 10 024 9:17 AM EDT documented as of this encounter Care Teams Highway Engineering Technician Relationship Specialty Start Date End Date Umm Coley MD 230 [place] [address] PCP - General Family Medicine 10/31/16 West Meier RN 505 [place] [address] Registered Nurse Family Medicine 05/10/25 [facility] 05/18/25 documented as of this encounter
--- OUTSIDE RECORDS SUMMARY | 2025-09-07 15:50 | XMS_ITS | Encounter Summary ---
Author Organization [employer] Address [address] [place] [address] 7t [place] [address] Care Team Providers Care Experimental Flight Test Mechanic Name Role Phone Umm Coley MD Primary Care Provider + West Meier RN Unavailable [phone] West eMier RN Unavailable [phone] Shannan Covington Unavailable Encounter Details Date Type Department Care Team (Late st Contact Info) Description 11/03/2022 Orders Only [facility] MEDICINE 230 [place], [place] [phone] Umm Coley MD 230 [place], [place] [phone] Osteopenia after menopause (Primary Dx) Social History [...] Description 09/12/2025 11:15 AM EST Office Visit [facility] MEDICINE 230 [place] [address] Umm Coley MD 230 [place] [address] 10/13/2025 11:45 AM EST Office Visit [facility] MEDICINE 230 [place] [address] Darrell Myers MD 230 [place] [address] 11/21/2025 1:00 PM EST Office Visit [facility] OPTOMETRY [address] [place] [address] Leonardo, Uyen, OD 230 [place] [address] Scheduled Orders Name Type Priority Associated Diagnoses Orde r Schedule Vitamin D, 25-Hydroxy, Total, Immunoassay Lab Routine Osteopenia after menopause Expected: 11/03/2022 (Approximate), Expires: 11/03/2023 PTH, Intact (ICMA) And Ionized Calcium Lab Routine Osteopenia after menopause Expected: 11/03/2022 (Approximate), Expires: 11/03/2023 documented as of this encounter Visit Diagnoses Diagnosis Osteopenia after menopause- Primary documented in this encounter Care Teams Experimental Flight Test Mechanic Relationship Specialty Start Date End Date Umm Coley MD [address] [place] [address] PCP - General Family Medicine 10/31/16 West Meier, BEBA [address] [place] [address] Correspondence RepresentativeStroke Belt Sander Operator 01/12/25 04/25/25 West Meier, RN [address] [place] [address] Registered Nurse Family Medicine 05/10/25 Shannan Covington 06/08/25 06/08/25 Eva Nunez Correspondence Representative 04/05/24 07/06/24 [facility] 05/11/24 11/17/24 [facility] 11/14/24 01/17/25 [employer] 12/08/24 [facility] 05/18/25 documented as of this encounter
--- OUTSIDE RECORDS SUMMARY | 2025-09-07 15:51 | XMS_ITS | Encounter Summary ---
Author Organization [employer] Address 75 [facility] 7t [place] [address] Care Team Providers Care Kidney Puller Name Role Phone Umm Coley MD Primary Care Provider + West Meier RN Unavailable [phone] West Meier RN Unavailable [phone] Shannan Covington Unavailable Encounter Details Date Type Department Care Team (Late st Contact Info) Description 08/23/2024 Orders Only [facility] ADULT DENTAL 505 [place], [place] [phone] Johnny Gonzalez, WILIAN 505 [place], [place] [phone] Social History Tobacco Use Types Packs/Day Years [...] Description 09/12/2025 11:15 AM EST Office Visit [facility] MEDICINE 230 [place] [address] Umm Coley MD 230 [place] [address] 10/13/2025 11:45 AM EST Office Visit [facility] MEDICINE 230 [place] [address] Darrell Myers MD 230 [place] [address] 11/21/2025 1:00 PM EST Office Visit [facility] OPTOMETRY [address] [place] [address] Uyen Patterson, OD 230 [place] [address] documented as of this encounter Visit Diagnoses Not on filedocumented in this encounter Additional Health Concerns Assessment Noted Time PHQ-9 Depression Total Score: 10 024 9:17 AM EDT documented as of this encounter Care Teams Kidney Puller Relationship Specialty Start Date End Date Umm Coley MD [address] [place] [address] PCP - General Family Medicine 10/31/16 West Meier RN 505 [place] [address] Scada OperatorSupervisor Elementary Education 01/12/25 04/25/25 West Meier RN 505 [place] [address] Registered Nurse Family Medicine 05/10/25 Shannan Covington 06/08/25 06/08/25 [facility] 05/11/24 11/17/24 [facility] 11/14/24 01/17/25 [employer] 12/08/24 [facility] 05/18/25 documented as of this encounter
--- OUTSIDE RECORDS SUMMARY | 2025-09-07 15:51 | XMS_ITS | Encounter Summary ---
Author Organization [employer] Address [address] [place] [address] 7t [place] [address] Care Team Providers Care Loft Rigger Name Role Phone Umm Coley MD Primary Care Provider + West Meier RN Unavailable [phone] West Meier RN Unavailable [phone] Shannan Covington Unavailable Reason for Visit * Reason Onset Date Comments Appointment 06/15/2023 Encounter Details Date Type Department Care Team (Late st Contact Info) Description 06/15/2023 Telephone [facility] 230 [place] [address] Johnny Gonzalez, WILIAN [address] [place], [place] [phone] Appointment Social History Tobacco Use Types Packs/Day [...] 11:15 AM EST Office Visit [facility] MEDICINE 230 [place] [address] Umm Coley MD 230 [place] [address] 10/13/2025 11:45 AM EST Office Visit [facility] MEDICINE 230 [place] [address] Darrell Myers MD 230 [place] [address] 11/21/2025 1:00 PM EST Office Visit [facility] OPTOMETRY [address] [place] [address] Leonardo, Uyen, OD 230 [place] [address] documented as of this encounter Visit Diagnoses Not on filedocumented in this encounter Additional Health Concerns Assessment Noted Time PHQ-9 Depression Total Score: 12 023 1:58 PM EDT documented as of this encounter Care Teams Loft Rigger Relationship Specialty Start Date End Date Umm Coley MD 230 [place] [address] PCP - General Family Medicine 10/31/16 West Meier RN 505 [facility] [place] [address] Bioinformatics Support SpecialistVulcanizing Press Operator 01/12/25 04/25/25 West Meier RN 505 [place] [address] Registered Nurse Family Medicine 05/10/25 Shannan Covington 06/08/25 06/08/25 Eva Nunez Bioinformatics Support Specialist 04/05/24 07/06/24 [facility] 05/11/24 11/17/24 [facility] 11/14/24 01/17/25 [employer] 12/08/24 [facility] 05/18/25 documented as of this encounter
--- OUTSIDE RECORDS SUMMARY | 2025-09-07 15:51 | XMS_ITS | Encounter Summary ---
Author Organization [employer] Address 75 [facility] 7t [place] [address] Care Team Providers Care Bran Mixer Name Role Phone Umm Coley MD Primary Care Provider + West Meier RN Unavailable [phone] West Meier RN Unavailable [phone] Shannan Covington Unavailable Reason for Visit * Reason Comments Med Change Request Encounter Details Date Type Department Care Team (Late st Contact Info) Description 03/20/2023 Refill [facility] ADULT DENTAL [address] [place] [address] Johnny Gonzalez DMD 505 [place], [place] [phone] Social History Tobacco Use Types Packs/Day Years [...] Description 09/12/2025 11:15 AM EST Office Visit [facility] MEDICINE [address] [place] [address] Umm Coley MD 230 [place] [address] 10/13/2025 11:45 AM EST Office Visit [facility] MEDICINE [address] [place] [address] Darrell Myers MD 230 [place] [address] 11/21/2025 1:00 PM EST Office Visit [facility] OPTOMETRY [address] [place] [address] Leonardo, Uyen, OD 230 [place] [address] documented as of this encounter Visit Diagnoses Not on filedocumented in this encounter Care Teams Bran Mixer Relationship Specialty Start Date End Date Umm Coley MD 230 [place] [address] PCP - General Family Medicine 10/31/16 West Meier RN 505 [place], [place] [phone] Oracle Forms DeveloperOcean Fishing Guide 01/12/25 04/25/25 West Meier, BEBA 505 [place], [place] [phone] Registered Nurse Family Medicine 05/10/25 Shannan Covington 06/08/25 06/08/25 Eva Nunez Oracle Forms Developer 04/05/24 07/06/24 [facility] 05/11/24 11/17/24 [facility] 11/14/24 01/17/25 [employer] [facility] 12/08/24 [facility] 05/18/25 documented as of this encounter
--- OUTSIDE RECORDS SUMMARY | 2025-09-07 15:51 | XMS_ITS | Encounter Summary ---
Author Organization [employer] Address [address] [place] [address] 7t [place] [address] Care Team Providers Care Wire Mill Rover Name Role Phone Umm Coley MD Primary Care Provider + West Meier RN Unavailable [phone] West Meier RN Unavailable [phone] Shannan Covington Unavailable Reason for Visit * Reason Comments Med Refill Encounter Details Date Type Department Care Team (Late st Contact Info) Description 05/21/2023 Refill [facility] MEDICINE 230 [place], [place] [phone] Umm Coley MD 230 [place], [place] [phone] Arthritis of knee Social History Tobacco Use [...] Description 09/12/2025 11:15 AM EST Office Visit [facility] MEDICINE 230 [place] [address] Umm Coley MD 230 [place] [address] 10/13/2025 11:45 AM EST Office Visit [facility] MEDICINE 230 [place] [address] Darrell Myers MD 230 [place] [address] 11/21/2025 1:00 PM EST Office Visit [facility] OPTOMETRY 267 [place] [address] LeonardoUyen awad, OD 230 [place] [address] documented as of this encounter Visit Diagnoses Diagnosis Arthritis of knee Unspecified arthropathy, lower leg documented in this encounter Additional Health Concerns Assessment Noted Time PHQ-9 Depression Total Score: 12 023 1:58 PM EDT documented as of this encounter Care Teams Wire Mill Rover Relationship Specialty Start Date End Date Umm Coley MD 230 [place] [address] PCP - General Family Medicine 10/31/16 West Meier, RN 505 [place], [place] [phone] Plate HangerMud Engineer 01/12/25 04/25/25 West Meier, RN 505 [place], [place] [phone] Registered Nurse Family Medicine 05/10/25 Shannan Covington 06/08/25 06/08/25 Eva Nunez Plate Hanger 04/05/24 07/06/24 [facility] 05/11/24 11/17/24 [facility] 11/14/24 01/17/25 [employer] 12/08/24 [facility] 05/18/25 documented as of this encounter
--- OUTSIDE RECORDS SUMMARY | 2025-09-07 15:51 | XMS_ITS ---
Author Organization [employer] Address [address] [place] [address] 7t [place] [address] Care Team Providers Care Marking Machine Operator Name Role Phone Umm Coley MD Primary Care Provider + West Meier RN Unavailable [phone] Complex Status:Enrolled (Active) Start date:05/10/2025 Enrollment date:05/10/2025 Enrollment reason:Referred by provider Overview Lost contact on [employer]. Re-opening program per PCP but now on GANESH. Case Team Name Relationship Phone West Meier RN(Responsible Staff) Registered N [facility] [phone] Continued Care and Services Coordination
--- OUTSIDE RECORDS SUMMARY | 2025-09-07 15:51 | XMS_ITS | Encounter Summary ---
Author Organization [employer] Address [address] [place] [address] 7t [place] [address] Care Team Providers Care Bleach Liquor Maker Name Role Phone Umm Coley MD Primary Care Provider + West Meier RN Unavailable [phone] West Meier RN Unavailable [phone] Shannan Covington Unavailable Encounter Details Date Type Department Care Team (Latest Contact Info) Description 11/23/[address] [facility] CONVERSIONS Dental, Provider, DDS Social History [...] 11:15 AM EST Office Visit [facility] MEDICINE [address] [place] [address] [phone] Umm Coley MD [address] [place] [address] [phone] 10/13/2025 11:45 AM EST Office Visit [facility] MEDICINE [address] [place] [address] [phone] Darrell Myers MD [address] [place] [address] [phone] 11/21/2025 1:00 PM EST Office Visit [facility] OPTOMETRY [address] [place] [address] Uyen Patterson, OD 230 [place] [address] documented as of this encounter Visit Diagnoses Not on filedocumented in this encounter Care Teams Bleach Liquor Maker Relationship Specialty Start Date End Date Umm Coley MD 230 [place] [address] PCP - General Family Medicine 10/31/16 West Meier RN 505 [place] [address] Sprinkler Fitter HelperRotary Cutter 01/12/25 04/25/25 West Meier RN 505 [place] [address] Registered Nurse Family Medicine 05/10/25 Shannan Covington 06/08/25 06/08/25 Eva Nunez Sprinkler Fitter Helper 04/05/24 07/06/24 [facility] 05/11/24 11/17/24 [facility] 11/14/24 01/17/25 [employer]ie 12/08/24 [facility] 05/18/25 documented as of this encounter
--- OUTSIDE RECORDS SUMMARY | 2025-09-07 15:51 | XMS_ITS | Encounter Summary ---
Author Organization [employer] Address [address] [facility] 7t [place] [address] Care Team Providers Care Entry Level Administrative Assistant Name Role Phone Umm Coley MD Primary Care Provider + [place] RN Unavailable [phone] [place] RN Unavailable [phone] Shannan Covington Unavailable Reason for Visit * Reason Comments Med Change Request Encounter Details Date Type Department Care Team (Late st Contact Info) Description 03/20/2023 Refill [facility] ADULT DENTAL [address] [place] [address] Johnny Gonzalez DMD [address] [place], [place] [phone] Social History Tobacco Use Types Packs/Day Years [...] 09/12/2025 11:15 AM EST Office Visit [facility] MEDICINE [address] [place] [address] Umm Coley MD 230 [place] [address] 10/13/2025 11:45 AM EST Office Visit [facility] MEDICINE [address] [place] [address] Darrell Myers MD [address] [place] [address] 11/21/2025 1:00 PM EST Office Visit [facility] OPTOMETRY [address] [place] [address] Leonardo, Uyen, OD 230 [place] [address] documented as of this encounter Visit Diagnoses Not on filedocumented in this encounter Care Teams Entry Level Administrative Assistant Relationship Specialty Start Date End Date Umm Coley MD [address] [place] [address] PCP - General Family Medicine 10/31/16 [place] RN [address] [place], [place] [phone] Assistant Store Manager SalesTrauma Nurse 01/12/25 04/25/25 [place], BEBA [address] [place], [place] [phone] Registered Nurse Family Medicine 05/10/25 Shannan Covington 06/08/25 06/08/25 Eva Nunez Assistant Store Manager Sales 04/05/24 07/06/24 [facility] 05/11/24 11/17/24 [facility] 11/14/24 01/17/25 [employer] 12/08/24 [facility] 05/18/25 documented as of this encounter
--- OUTSIDE RECORDS SUMMARY | 2025-09-07 15:51 | XMS_ITS | Encounter Summary ---
Author Organization [employer] Address [address] [place] [address] 7t [place] [address] Care Team Providers Care Lockstitch Lining Maker Name Role Phone Umm Coley MD Primary Care Provider + [place] RN Unavailable [phone] [place] RN Unavailable [phone] Shannan Covington Unavailable Reason for Visit * Reason Onset Date Comments pre med prior to dental treatment 08/23/2024 Encounter Details Date Type Department Care Team ([facility] st Contact Info) Description 08/23/2024 Telephone [facility] ADULT DENTAL [address] [place], [place] [phone] Johnny Gonzalez DMD [address] [place], [place] [phone] pre med prior to dental treatment Social [...] spoke with Nina in the front office manager with a run through of what was happening with the patient and she stated she would also send something to provider for clarificationDR documented in this encounter Plan of Treatment Upcoming Encounters Date Type Department Care Team (Late st Contact Info) Description 09/12/2025 11:15 AM EST Office Visit [facility] MEDICINE [address] [place] [address] Umm Coley MD [address] [place] [address] 10/13/2025 11:45 AM EST Office Visit [facility] MEDICINE [address] [place] [address] Darrell Myers MD [address] [place] [address] 11/21/2025 1:00 PM EST Office Visit [facility] OPTOMETRY [address] [place] [address] Uyen Patterson, OD 230 [place] [address] documented as of this encounter Visit Diagnoses Not on filedocumented in this encounter Additional Health Concerns Assessment Noted Time PHQ-9 Depression Total Score: 10 024 9:17 AM EDT documented as of this encounter Care Teams Lockstitch Lining Maker Relationship Specialty Start Date End Date Umm Coley MD [address] [place] [address] PCP - General Family Medicine 10/31/16 [place] RN 505 [place] [address] Supervisor CartographyHand Spring Repairer Helper 01/12/25 04/25/25 [place] Me[place] RN [address] [place] [address] Registered Nurse Family Medicine 05/10/25 Shannan Covington 06/08/25 06/08/25 [facility] 05/11/24 11/17/24 [facility] 11/14/24 01/17/25 [employer] 12/08/24 [facility] 05/18/25 documented as of this encounter
--- OUTSIDE RECORDS SUMMARY | 2025-09-07 15:51 | XMS_ITS | Encounter Summary ---
Author Organization [employer] [facility] Address [address] [place] [address] 7t [place] [address] Care Team Providers Care Tag Marker Name Role Phone Umm Coley MD Primary Care Provider + [place] RN Unavailable [phone] [place] RN Unavailable [phone] Shannan Covington Unavailable Reason for Visit * Reason Comments Med Refill Encounter Details Date Type Department Care Team (Late st Contact Info) Description 02/05/2023 Refill [facility] MEDICINE [address] [place], [place] [phone] Umm Coley MD 230 [place], [place] [phone] Arthritis of knee Social History Tobacco Use [...] Description 09/12/2025 11:15 AM EST Office Visit [facility] [address] [place] [address] Umm Coley MD 230 [place] [address] 10/13/2025 11:45 AM EST Office Visit [facility] [address] [place] [address] Darrell Myers MD 230 [place] [address] 11/21/2025 1:00 PM EST Office Visit [facility] OPTOMETRY [address] [place] [address] Uyen Patterson, OD [address] [place] [address] documented as of this encounter Visit Diagnoses Diagnosis Arthritis of knee Unspecified arthropathy, lower leg documented in this encounter Care Teams Tag Marker Relationship Specialty Start Date End Date Umm Coley MD 230 [place] [address] PCP - General Family Medicine 10/31/16 [place], RN 505 [place] [address] Gang Hemstitching Machine OperatorLay Out Machine Operator 01/12/25 04/25/25 [place], RN [address] [place] [address] Registered Nurse Family Medicine 05/10/25 Shannan Covington 06/08/25 06/08/25 Eva Nunez Gang Hemstitching Machine Operator 04/05/24 07/06/24 [facility] 05/11/24 11/17/24 [facility] 11/14/24 01/17/25 [employer] 12/08/24 [facility] 05/18/25 documented as of this encounter
--- OUTSIDE RECORDS SUMMARY | 2025-09-07 15:51 | XMS_ITS | Encounter Summary ---
Author Organization [employer] Address 75 [facility] 7t [place] [address] Care Team Providers Care Victims Advocate Clerk/Specialist Name Role Phone Umm Coley MD Primary Care Provider + [place] RN Unavailable [phone] [place] RN Unavailable [phone] Shannan Covington Unavailable Reason for Visit * Reason Onset Date Comments Appointment 03/17/2023 Encounter Details Date Type Department Care Team (Late st Contact Info) Description 03/17/2023 Telephone [facility] ADULT DENTAL [address] [place] [address] Johnny Gonzalez, WILIAN [address] [place], [place] [phone] Appointment Social History Tobacco Use Types Packs/Day [...] [facility] 230 [place] [address] Umm Coley MD [address] [place] [address] 10/13/2025 11:45 AM EST Office Visit [facility] MEDICINE 230 [place] [address] Darrell Myers MD 230 [place] [address] 11/21/2025 1:00 PM EST Office Visit [facility] OPTOMETRY [address] [place] [address] Uyen Patterson, OD 230 [place] [address] documented as of this encounter Visit Diagnoses Not on filedocumented in this encounter Care Teams Victims Advocate Clerk/Specialist Relationship Specialty Start Date End Date Umm Coley MD [address] [place] [address] PCP - General Family Medicine 10/31/16 [place], BEBA 505 [place] [address] Coal Pipeline OperatorDirect Support Worker 01/12/25 04/25/25 [place] Me[place], BEBA 505 [place] [address] Registered Nurse Family Medicine 05/10/25 Shannan Covington 06/08/25 06/08/25 Eva Nunez Coal Pipeline Operator 04/05/24 07/06/24 [facility] 05/11/24 11/17/24 [facility] 11/14/24 01/17/25 [employer] 12/08/24 [facility] 05/18/25 documented as of this encounter
--- OUTSIDE RECORDS SUMMARY | 2025-09-07 15:51 | XMS_ITS | Encounter Summary ---
Author Organization [employer] Address [address] [place] [address] 7t [place] [address] Care Team Providers Care Health Actuary Name Role Phone Umm Coley MD Primary Care Provider + [place] RN Unavailable [phone] [place] RN Unavailable [phone] Shannan Covington Unavailable Encounter Details Date Type Department Care Team (Late st Contact Info) Description 03/05/2023 Orders Only [facility] MEDICINE [address] [place], [place] [phone] Umm Coley MD 230 [place], [place] [phone] Social History Tobacco Use Types Packs/Day Years [...] 09/12/2025 11:15 AM EST Office Visit [facility] MEDICINE [address] [place] [address] Umm Coley MD [address] [place] [address] 10/13/2025 11:45 AM EST Office Visit [facility] MEDICINE [address] [place] [address] Darrell Myers MD [address] [place] [address] 11/21/2025 1:00 PM EST Office Visit [facility] OPTOMETRY [address] [place] [address] Uyen Patterson, OD [address] [place] [address] documented as of this encounter Visit Diagnoses Not on filedocumented in this encounter Care Teams Health Actuary Relationship Specialty Start Date End Date Umm Coley MD [address] [place] [address] PCP - General Family Medicine 10/31/16 West Meier RN [address] [place] [address] Athletic ScoutCoffee Machine Technician 01/12/25 04/25/25 [place] Meier RN [address] [place] [address] Registered Nurse Family Medicine 05/10/25 Shannan Covington 06/08/25 06/08/25 Eva Nunez Athletic Scout 04/05/24 07/06/24 [facility] 05/11/24 11/17/24 [facility] 11/14/24 01/17/25 [email or web address] 12/08/24 [facility] 05/18/25 documented as of this encounter
--- OUTSIDE RECORDS SUMMARY | 2025-09-07 15:51 | XMS_ITS | Encounter Summary ---
Author Organization [employer] [facility] Address [address] [place] [address] 7t [place] [address] Care Team Providers Care High School Professional Name Role Phone Umm Coley MD Primary Care Provider + [place] RN Unavailable [phone] [place] Me[place] RN Unavailable [phone] Shannan Covington Unavailable Reason for Visit * Reason Comments Med Refill Encounter Details Date Type Department Care Team (Late st Contact Info) Description 08/01/2023 Refill [facility] MEDICINE [address] [place], [place] [phone] Umm Coley MD [address] [place], [place] [phone] Social History Tobacco Use Types Packs/Day Years [...] 11:15 AM EST Office Visit [facility] MEDICINE [address] [place] [address] Umm Coley MD [address] [place] [address] 10/13/2025 11:45 AM EST Office Visit [facility] MEDICINE [address] [place] [address] Darrell Myers MD [address] [place] [address] 11/21/2025 1:00 PM EST Office Visit [facility] OPTOMETRY [address] [place] [address] LeonardoUyen awad, OD 230 [place] [address] documented as of this encounter Visit Diagnoses Not on filedocumented in this encounter Additional Health Concerns Assessment Noted Time PHQ-9 Depression Total Score: 023 1:58 PM EDT documented as of this encounter Care Teams High School Professional Relationship Specialty Start Date End Date Umm Coley MD [address] [place] [address] PCP - General Family Medicine 10/31/16 [place] Meier, RN [address] [place] [address] Transportation Engineering TechnicianSweatband Decorating Machine Operator 01/12/25 04/25/25 [place] Me[place], RN [address] [place] [address] Registered Nurse Family Medicine 05/10/25 Shannan Covington 06/08/25 06/08/25 Eva Nunez Transportation Engineering Technician 04/05/24 07/06/24 [facility] 05/11/24 11/17/24 [facility] 11/14/24 01/17/25 [employer] 12/08/24 [facility] 05/18/25 documented as of this encounter
--- OUTSIDE RECORDS SUMMARY | 2025-09-07 15:51 | XMS_ITS | Encounter Summary ---
Author Organization [employer] Address [address] [facility] 7t [place] [address] Care Team Providers Care Acoustic Intelligence Specialist Name Role Phone Umm Coley MD Primary Care Provider + [place] Me[place] RN Unavailable [phone] [place] Me[place] RN Unavailable [phone] Shannan Covington Unavailable Reason for Visit * Reason Onset Date Comments Appointment 02/24/2023 Encounter Details Date Type Department Care Team (Late st Contact Info) Description 02/24/2023 Telephone [facility] ADULT DENTAL [address] [place] [address] Johnny Gonzalez, WILIAN [address] [place], [place] [phone] Appointment Social History Tobacco Use Types Packs/Day [...] Description 09/12/2025 11:15 AM EST Office Visit [facility] MEDICINE [address] [place] [address] Umm Coley MD [address] [place] [address] 10/13/2025 11:45 AM EST Office Visit [facility] MEDICINE [address] [place] [address] Darrell Myers MD [address] [place] [address] 11/21/2025 1:00 PM EST Office Visit [facility] OPTOMETRY [address] [place] [address] Leonardo, Ueyn, OD [address] [place] [address] documented as of this encounter Visit Diagnoses Not on filedocumented in this encounter Care Teams Acoustic Intelligence Specialist Relationship Specialty Start Date End Date Umm Coley MD [address] [place] [address] PCP - General Family Medicine 10/31/16 [place] Me[place] RN [address] [place] [address] Professor Of Exercise ScienceSewer System Supervisor 01/12/25 04/25/25 [place] Meier RN [address] [place] [address] Registered Nurse Family Medicine 05/10/25 Shannan Covington 06/08/25 06/08/25 Eva Nunez Professor Of Exercise Science 04/05/24 07/06/24 [facility] 05/11/24 11/17/24 [facility] 11/14/24 01/17/25 [employer] 12/08/24 [facility] 05/18/25 documented as of this encounter
--- OUTSIDE RECORDS SUMMARY | 2025-09-07 15:51 | XMS_ITS | Encounter Summary ---
Author Organization [employer] [facility] Address [address] [place] [address] 7t [place] [address] Care Team Providers Care Customer Complaint Clerk Name Role Phone Umm Coley MD Primary Care Provider + [place] Me[place] RN Unavailable [phone] [place] Me[place] RN Unavailable [phone] Shannan Covington Unavailable Reason for Visit * Reason Comments Med Refill Encounter Details Date Type Department Care Team (Late st Contact Info) Description 06/10/2023 Refill [facility] MEDICINE 230 [place], [place] [phone] Yenny Morris MD 230 [place], [place] [phone] Rash Social History Tobacco Use Types Packs/Day [...] Description 09/12/2025 11:15 AM EST Office Visit [facility] MEDICINE [address] [place] [address] Umm Coley MD 230 [place] [address] 10/13/2025 11:45 AM EST Office Visit [facility] MEDICINE [address] [place] [address] Darrell Myers MD 230 [place] [address] 11/21/2025 1:00 PM EST Office Visit [facility] OPTOMETRY [address] [place] [address] Uyen Patterson, OD 230 [place] [address] documented as of this encounter Visit Diagnoses Diagnosis Rash Rash and other nonspecific skin eruption documented in this encounter Additional Health Concerns Assessment Noted Time PHQ-9 Depression Total Score: 023 1:58 PM EDT documented as of this encounter Care Teams Customer Complaint Clerk Relationship Specialty Start Date End Date Umm Coley MD 230 [place] [address] PCP - General Family Medicine 10/31/16 [place] Me[place], RN [address] [place] [address] Tire SpotterImaging Assistant 01/12/25 04/25/25 [place] Me[place], RN [address] [facility] [place] [address] Registered Nurse Family Medicine 05/10/25 Shannan Covington 06/08/25 06/08/25 Eva Nunez Tire Spotter 04/05/24 07/06/24 [facility] 05/11/24 11/17/24 [facility] 11/14/24 01/17/25 [employer] 12/08/24 [facility] 05/18/25 documented as of this encounter
== END ==
LOC: HO.CARD 12:52
PROVIDERS: PCP Internal Medicine; Visit Provider Internal Medicine
DX: I42.9 Cardiomyopathy, unspecified (principal)
CPT/HCPCS: 93306

== ENCOUNTER → 2025-09-07 12:58 | Outpatient (BNV) | payer MEDICAID, SELFPAY | PROVIDERS: PCP Internal Medicine; Visit Provider Internal Medicine Cardiovascular Disease | DX: Z51.81 Encounter for therapeutic drug level monitoring (principal); I42.8 Other cardiomyopathies | CPT/HCPCS: 93306; 93356 ==

== ENCOUNTER 2025-09-21 10:40 | Outpatient (AMB) | payer MEDICAID, SELFPAY ==
[2025-09-21 10:44] VITALS: BP 108/58; PULSE 86; O2SAT 98; BMI 20.5
--- NOTE | 2025-09-21 10:44 | A.OFFVIS_ITS ---
Vital Signs 09/21/25 10:44 Height 5 ft 2 in Weight 112 lb BMI 20.5 BP 108/58 L Blood Pressure Location Lt brachial Position Sitting Pulse 86 Pulse Source Pulse Oximeter Pulse Oximetry (%) 98 Oxygen Delivery Method Room Air Intake Visit Reasons: Asthma Airplane Cover Maker Required: Yes Airplane Cover Maker Name: Zara Fernandez C.L.M Allergies codeine (CODEINE) Allergy (Intermediate, Verified 09/21/25 10:49) DIZZY/NAUSEA, nausea/vomiting escitalopram (From LEXAPRO) Allergy (Intermediate, Verified 09/21/25 10:49) ? NAUSEA meperidine (MEPERIDINE) Allergy (Intermediate, Verified 09/21/25 10:49) NAUSEA morphine (MORPHINE) Allergy (Intermediate, Verified 09/21/25 10:49) PALPITATIONS, palpitation oxycodone (OXYCODONE) Allergy (Intermediate, Verified 09/21/25 10:49) PALPATATIONS, palpitations tramadol Allergy (Unknown, Verified 09/21/25 10:49) dizziness, nausea HPI HPI Asthma: Details: 60-year-old lady, former minimal smoker, with underlying history of treated TB in her late teens, right breast cancer status post lumpectomy, chemo, and radiation in 2010 referred for evaluation of dyspnea on exertion that occurs after patient walks for several blocks.? She has had a recent negative cardiac workup.? Patient denies prior personal history of lung disease.? She has lots of first-degree relatives with asthma.? Patient has had COVID back in December of 2020, however her dyspnea symptoms predate but got worse after her COVID infection.? She denies any wheezing, cough, sputum production.? She has multiple environmental allergies. Her pulmonary function test showed mild decrease in diffusion capacity and otherwise has been unremarkable.? Her CT chest is normal and pulmonary function test that is essentially normal with only minor defect in diffusion capacity that does not explain her symptoms. Patient was not able tolerate Trelegy secondary to it being powder inhaler. She was not able to receive BrezTri or Bevespi. She has been using Symbicort with some symptom control. After the last office visit patient completed her cardiac stress test that was essentially normal. [facility] Medical History (Updated 09/21/25 @ 11:30 by Anthony Curtis MD) History of obstruction of large intestine Epigastric pain Right flank pain Migraine Paresthesia of skin Tension headache MCI (mild cognitive impairment) Peripheral neuropathy Breast cancer Primary osteoarthritis of right hand Right shoulder pain Rotator cuff tendinitis Arthritis of right shoulder region Right hand pain Breast cancer, right Status post radiation therapy Anemia Diarrhea Depression Somatization disorder Migraine equivalent syndrome Anxiety Periodontal disease Fibromyalgia Surgical History H/O hand surgery History of esophagogastroduodenoscopy (EGD) History of lumpectomy Hx of section Hx of shoulder surgery Hx of colonoscopy Family History Mother HTN (hypertension) Sister Breast cancer Bone cancer Colon polyps Sister Osteoporosis Hypercholesteremia Colon polyps Social History Household Members: None Housing: Apartment Are you a primary career and transition teacher to a significant other at home: No Do you presently have visiting nurse or other home services: No Alcohol intake: never Patient Tobacco Use Status: Former Tobacco user Years Smoked: 3 service: No Current occupational status: disabled 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 Review of Systems Const Denies daytime sleepiness, Denies excessive sweating, Denies fatigue, Denies fever(s), Denies lethargy, Denies malaise, Denies night sweats, Denies snoring and Denies weight loss Eyes Denies blurry vision and Denies itchy eyes ENT Denies nasal congestion, Denies post nasal drip, Denies sinus pain, Denies sinus pressure and Denies other ( Thrush) Card Denies chest pain, Denies pedal edema, Denies dyspnea, Denies orthopnea and Denies paroxysmal nocturnal dyspnea Resp Denies cough, Denies hemoptysis, Denies excessive phlegm production, Denies dyspnea, Denies snoring and Denies wheezing GI Denies abdominal pain and Denies heartburn Musc Denies myalgias, Denies arthralgias and Denies joint swelling Skin/Breast Denies rash Neuro Denies memory loss and Denies seizure-like activity Psych Denies abnormal sleep pattern, Denies anxiety and Denies memory loss Endo Denies excessive sweating, Denies fatigue and Denies heat intolerance Marko/Lymph Denies easy bruising Aller/Immun Denies itchy eyes, Denies seasonal rhinorrhea and Denies wheezing Physical Exam Vital Signs: Last Vital Signs Pulse 86 09/21/25 10:44 BP 108/58 L 09/21/25 10:44 Pulse Ox 98 09/21/25 10:44 Oxygen Delivery Method Room Air 09/21/25 10:44 BMI result Body Mass Index 20.5 Const General: no acute distress and alert Nutritional Appearance: not obese Orientation/consciousness: Other orientation findings ( oriented) HEENT Head: Yes atraumatic Eyes General: appearance normal, both eyes and all related structures Sclerae: sclerae normal EOM: EOMs intact bilaterally Neck Neck: Yes supple Lymphatic: no lymphadenopathy noted Resp Effort & Inspection: normal respiratory effort and no use of accessory muscles Auscultation: clear to auscultation bilaterally Cardio Rate: regular rate Rhythm: regular rhythm Heart sounds: no gallops, no murmurs and no rubs Skin General skin exam: other ( warm) Extrem General: No clubbing, No cyanosis and No edema Assessment & Plan Assessment & Plan (1) Shortness of breath: Code(s): R06.02 - Shortness of breath Category: Medical Plan: At this time with no objective findings to explain patient's underlying symptomatology. Patient has been advised on gradated exercise regimen. (2) Reactive airway disease: Code(s): J45.909 - Unspecified asthma, uncomplicated Category: Medical Plan: Mild reactive airway disease controlled with Symbicort and albuterol MDI. Continue current regimen. Coding Level of Care Code Est Pt Level 4 (76811) Diagnoses Shortness of breath R06.02 Reactive airway disease J45.909
== END 2025-09-21 11:20 | disposition home or self-care (01) ==
LOC: HO.HPS 10:41
PROVIDERS: PCP Internal Medicine; Visit Provider Internal Medicine Pulmonary Disease
DX: R06.02 Shortness of breath (principal); J45.909 Unspecified asthma, uncomplicated
CPT/HCPCS: 99214

== ENCOUNTER → 2025-09-21 10:40 | Outpatient (BNVA) | payer MEDICAID, SELFPAY | PROVIDERS: PCP Internal Medicine; Visit Provider Internal Medicine Pulmonary Disease | DX: R06.02 Shortness of breath (principal); J45.909 Unspecified asthma, uncomplicated | CPT/HCPCS: 99212 ==

== ENCOUNTER 2025-10-01 09:54 | Emergency (ER) | payer MEDICAID, SELFPAY ==
--- NOTE | ~2025-10-01 | CT_ITS ---
CLINICAL HISTORY: n v CT abdomen and pelvis without contrast Comparison: CT/OR/SR - CT ABDOMEN PELVIS W IV CON - 07/14/23 13:54 EDT Findings: No consolidation or effusion. 6 mm calculus at the right ureterovesical junction causing [id number] hydronephrosis of the right kidney. There are several calcified granulomas within the spleen. The liver, pancreas and adrenal glands are unremarkable. There are no calcified gallstones. No bowel obstruction, pneumoperitoneum, or pneumatosis. Pelvic contents unremarkable. Normal appendix. No acute fracture. IMPRESSION: 6 mm calculus at the right ureterovesical junction causing [id number] hydronephrosis. This document has been electronically signed by: Catherine Jones MD on 10/01/2025 14:44:38
[2025-10-01 10:00] VITALS: BP 157/82; BP 158/86; PULSE 108; PULSE 88; RESP 22; TEMP 36.3; O2SAT 100; BMI 19.9
[2025-10-01 10:43] LABS: Appearance Urine Cloudy; Glucose Urine UA Negative (Negative); PH 8.0 (5.0-9.0); Specific Gravity - Urine 1.020 (1.005-1.025); UMIC TRIGGER UACC YES
[2025-10-01 10:56] LABS: UACC Culture Trigger YES
[2025-10-01 10:59] LABS: Alanine Aminotransferase 12 U/L (0-31); Albumin Level 4.8 g/dL (3.5-5.0); Alkaline Phosphatase 119 U/L (39-117); Anion Gap 17 (12-20); Aspartate Amino Transferase 25 U/L (5-31); Blood Urea Nitrogen 18 mg/dL (9-16); Calcium 9.7 mg/dL (8.4-10.2); Carbon Dioxide 21 mmol/L (22-29); Chloride 110 mmol/L (96-108); Creatinine Clr Calc Pharmacy 51.7; Estimated Glomerular Filt Rate > 60; Lipase 29 U/L (8-78); Potassium 3.5 mmol/L (3.3-5.1); Sodium 144 mmol/L (135-145); Total Protein 7.1 g/dL (6.5-8.0)
--- OUTSIDE RECORDS SUMMARY | 2025-10-01 11:23 | XMS_ITS | Encounter Summary ---
Author Organization [employer] Address [address] [place] [address] 7t [place] [address] Care Team Providers Care Addiction Treatment Counselor Name Role Phone Umm Coley MD Primary Care Provider + [place] Meier RN Unavailable [phone] [place] Me[place] RN Unavailable [phone] Shannan Covington Unavailable Encounter Details Date Type Department Care Team (Late st Contact Info) Description 09/24/2022 Abstract [facility] ADULT DENTAL [address] [place] [address] Dental, Provider, DDS Social History Tobacco Use [...] Description 10/13/2025 11:45 AM EST Office Visit [facility] MEDICINE [address] [place] [address] Darrell Myers MD 230 [place] [address] 11/21/2025 1:00 PM EST Office Visit [facility] OPTOMETRY [address] [place], [place] [phone] Uyen Patterson, OD 230 [place] [address] documented as of this encounter Procedures Procedure [...] on filedocumented in this encounter Care Teams Addiction Treatment Counselor Relationship Specialty Start Date End Date Umm Coley MD [address] [place] [address] PCP - General Family Medicine 10/31/16 West Meier RN [address] [place] [address] Process Development ChemistHadoop Java Developer 01/12/25 04/25/25 West Meier RN [address] [place] [address] Registered Nurse Family Medicine 05/10/25 Shannan Covington 06/08/25 06/08/25 Eva Nunez Process Development Chemist 04/05/24 07/06/24 [facility] 05/11/24 11/17/24 [facility] 11/14/24 01/17/25 [employer] 12/08/24 [facility] 05/18/25 documented as of this encounter
--- OUTSIDE RECORDS SUMMARY | 2025-10-01 11:23 | XMS_ITS | Encounter Summary ---
Author Organization [employer] Address [address] [place] [address] 7t [place] [address] Care Team Providers Care Net Software Engineer Name Role Phone Umm Coley MD Primary Care Provider + West Meier RN Unavailable [phone] West Meier RN Unavailable [phone] Shannan Covington Unavailable Encounter Details Date Type Department Care Team (Late st Contact Info) Description 11/03/2022 Orders Only [facility] MEDICINE [address] [place], [place] [phone] Umm Coley MD [address] [place], [place] [phone] Osteopenia after menopause (Primary Dx) Social History [...] [facility] MEDICINE [address] [place] [address] Darrell Myers MD [address] [place] [address] 11/21/2025 1:00 PM EST Office Visit [facility] OPTOMETRY [address] [place], [place] [phone] Uyen Patterson, OD [address] [place] [address] Scheduled Orders Name Type Priority Associated Diagnoses Orde r Schedule Vitamin D, 25-Hydroxy, Total, Immunoassay Lab Routine Osteopenia after menopause Expected: 11/03/2022 (Approximate), Expires: 11/03/2023 PTH, Intact (ICMA) And Ionized Calcium Lab Routine Osteopenia after menopause Expected: 11/03/2022 (Approximate), Expires: 11/03/2023 documented as of this encounter Visit Diagnoses Diagnosis Osteopenia after menopause- Primary documented in this encounter Care Teams Net Software Engineer Relationship Specialty Start Date End Date Umm Coley MD [address] [place] [address] PCP - General Family Medicine 10/31/16 West Meier, RN [address] [place], [place] [phone] Truck Sales RepresentativeChemistry Lab Instructor 01/12/25 04/25/25 West Meier, RN [address] [place], [place] [phone] Registered Nurse Family Medicine 05/10/25 Shannan Covington 06/08/25 06/08/25 Eva Nunez Truck Sales Representative 04/05/24 07/06/24 [facility] 05/11/24 11/17/24 [facility] 11/14/24 01/17/25 [employer] 12/08/24 [facility] 05/18/25 documented as of this encounter
--- OUTSIDE RECORDS SUMMARY | 2025-10-01 11:23 | XMS_ITS | Encounter Summary ---
Author Organization [employer] Address [address] [place] [address] 7t [place] [address] Care Team Providers Care Manager Underwriting Name Role Phone Umm Coley MD Primary Care Provider + West Meier RN Unavailable [phone] West Meier RN Unavailable [phone] Shannan Covington Unavailable Encounter Details Date Type Department Care Team (Latest Contact Info) Description 09/16/2022 Abstract [facility] CONVERSIONS Dental, Provider, DDS Social [...] Description 10/13/2025 11:45 AM EST Office Visit [facility] MEDICINE [address] [place], [place] [phone] Darrell Myers MD [address] [place], [place] [phone] 11/21/2025 1:00 PM EST Office Visit [facility] OPTOMETRY [address] [place], [place] [phone] Uyen Patterson, OD [address] [place], [place] [phone] documented as of this encounter Visit Diagnoses Not on filedocumented in this encounter Care Teams Manager Underwriting Relationship Specialty Start Date End Date Umm Coley MD [address] [place] [address] PCP - General Family Medicine 10/31/16 West Meier, RN [address] [place] [address] Shoe Sticks RepairerCandy Decorator 01/12/25 04/25/25 West Meier RN [address] [place] [address] Registered Nurse Family Medicine 05/10/25 Shannan Covington 06/08/25 06/08/25 Eva Nunez Shoe Sticks Repairer 04/05/24 07/06/24 [facility] 05/11/24 11/17/24 [facility] 11/14/24 01/17/25 [employer] 12/08/24 [facility] 05/18/25 documented as of this encounter
--- OUTSIDE RECORDS SUMMARY | 2025-10-01 11:23 | XMS_ITS | Encounter Summary ---
Author Organization [employer] Address [address] [place] [address] 7t [place] [address] Care Team Providers Care Secondary [employer] Special Ed Teacher Name Role Phone Umm Coley MD Primary Care Provider + West Meier RN Unavailable [phone] Reason for Visit * Reason Onset Date Comments Appointment Request 07/19/2025 Encounter Details Date Type Department Care Team ([facility] st Contact Info) Description 07/19/2025 Telephone [facility] MEDICINE [address] [place], [place] [phone] Umm Coley MD [address] [place], [place] 1850240 Appointment Request Social History Tobacco Use Types [...] 11:45 AM EST Office Visit [facility] MEDICINE [address] [place] [address] Darrell Myers MD [address] [place] [address] 11/21/2025 1:00 PM EST Office Visit [facility] OPTOMETRY [address] [place], [place] [phone] Uyen Patterson, OD [address] [place] [address] documented as of this encounter Visit Diagnoses Not on filedocumented in this encounter Additional Health Concerns Assessment Noted Time PHQ-9 Depression Total Score: 18 025 12:18 PM EDT documented as of this encounter Care Teams [employer] Special Ed Teacher Relationship Specialty Start Date End Date Umm Coley MD [address] [place], [place] [phone] PCP - General Family Medicine 10/31/16 West Meier RN [address] [place] [address] Registered Nurse Family Medicine 05/10/25 [facility] 05/18/25 documented as of this encounter
--- OUTSIDE RECORDS SUMMARY | 2025-10-01 11:23 | XMS_ITS | Encounter Summary ---
Author Organization [employer] Address [address] [place] [address] 7t [place] [address] Care Team Providers Care Trim Crew Supervisor Name Role Phone Umm Coley MD Primary Care Provider + West Meier RN Unavailable [phone] West Meier RN Unavailable [phone] Shannan Covington Unavailable Reason for Visit * Reason Onset Date Comments Dr. Gonzalez conversation PCP/cleared for tx?? Encounter Details Date Type Department Care Team ([facility] st Contact Info) Description 03/28/2025 Telephone [facility] ADULT DENTAL [address] [place], [place] [phone] Johnny Gonzalez, WILIAN [address] [place], [place] [phone] Dr. Gonzalez conversation PCP/cleared for tx?? Social [...] Send to both provider clinical support and first front ventilator DR documented in this encounter Plan of Treatment Upcoming Encounters Date Type Department Care Team (Late st Contact Info) Description 10/13/2025 11:45 AM EST Office Visit [facility] MEDICINE 230 [place] [address] Darrell Myers MD 230 [place] [address] 11/21/2025 1:00 PM EST Office Visit [facility] OPTOMETRY [address] [place], [place] [phone] Uyen Patterson, OD [address] [place] [address] documented as of this encounter Visit Diagnoses Not on filedocumented in this encounter Additional Health Concerns Assessment Noted Time PHQ-9 Depression Total Score: 10 024 9:17 AM EDT documented as of this encounter Care Teams Trim Crew Supervisor Relationship Specialty Start Date End Date Umm Coley MD [address] [place], [place] [phone] PCP - General Family Medicine 10/31/16 West Meier RN [address] [place] [address] Mail Clerks SupervisorUsed Car Salesperson 01/12/25 04/25/25 West Meier RN [address] [place] [address] Registered Nurse Family Medicine 05/10/25 Shannan Covington 06/08/25 06/08/25 [facility] 05/18/25 documented as of this encounter
--- OUTSIDE RECORDS SUMMARY | 2025-10-01 11:23 | XMS_ITS ---
Author Organization [employer] Address [address] [place] [address] 7t [place] [address] Care Team Providers Care Plant Supervisor Name Role Phone Umm Coley MD Primary Care Provider + West Meier RN Unavailable [phone] [facility] Status:Enrolled (Active) Start date:05/10/2025 Enrollment date:05/10/2025 Enrollment reason:Referred by provider Overview Lost contact on [place]. Re-opening program per PCP but now on GANESH. Case Team Name Relationship Phone West Meier RN(Responsible Staff) Registered [facility] [phone] Continued Care and Services Coordination
--- OUTSIDE RECORDS SUMMARY | 2025-10-01 11:23 | XMS_ITS | Encounter Summary ---
Author Organization [employer] Address [address] [place] [address] 7t [place] [address] Care Team Providers Care Sales Service Representative Name Role Phone Umm Coley MD Primary Care Provider + West Meier RN Unavailable [phone] West Meier RN Unavailable [phone] Shannan Covington Unavailable Encounter Details Date Type Department Care Team (Latest Contact Info) Description 11/14/2019 Abstract [facility] CONVERSIONS Dental, Provider, DDS Social History [...] Description 10/13/2025 11:45 AM EST Office Visit [facility] MEDICINE 230 [place] [address] Darrell Myers MD 230 [place], [place] [phone] 11/21/2025 1:00 PM EST Office Visit [facility] OPTOMETRY [address] [place], [place] [phone] Uyen Patterson, OD 230 [place], [place] [phone] documented as of this encounter Visit Diagnoses Not on filedocumented in this encounter Care Teams Sales Service Representative Relationship Specialty Start Date End Date Umm Coley MD [address] [place] [address] PCP - General Family Medicine 10/31/16 West Meier, RN [address] [place] [address] Sales Service RepSoftware Support Analyst 01/12/25 04/25/25 West Meier RN [address] [place] [address] Registered Nurse Family Medicine 05/10/25 Shannan Covington 06/08/25 06/08/25 Eva Nunez Sales Service Rep 04/05/24 07/06/24 [facility] 05/11/24 11/17/24 [facility] 11/14/24 01/17/25 [employer] 12/08/24 [facility] 05/18/25 documented as of this encounter
--- OUTSIDE RECORDS SUMMARY | 2025-10-01 11:23 | XMS_ITS | Encounter Summary ---
Author Organization [employer] Address [address] [facility] 7t [place] [address] Care Team Providers Care Journeyman Powerhouse Operator Name Role Phone Umm Coley MD Primary Care Provider + West Meier RN Unavailable [phone] Reason for Visit * Reason Comments Care Management C3CM- F/U call Encounter Details Date Type Department Care Team ([facility] st Contact Info) Description 08/22/2025 Patient Outreach [facility] MED [facility] PEDS [address] [place], [place] [phone] Umm Coley MD [address] [place], [place] [phone] Care Management (C3CM- F/U call) Social History Tobacco Use Types Packs/Day Years Used Date Smoking Tobacco: Never Passive Smoke Exposure: Never Smokeless Tobacco: Never Alcohol Use Standard Drinks/Week Comments Never 0 (1 standard drink = 0.6 oz pur e alcohol) Depression Answer Date Recorded Patient Health Questionnaire-9 Score 18 09/12/2025 Patient Health Questionnaire-9 Score 18 09/12/2025 Last PHQ-9: Questionnaire Data Not on file 1 11/12/2024 Housing Stability Answer Date Recorded What is [...] Answer Date Recorded Patient Health Questionnaire-2 Score 4 09/12/2025 Internet Access Answer Date Recorded Internet Access [...] of Assessment Author Patient Health Questionnaire-2 Score 4 09/12/2025 11:25 AM Jojo Dorsey MA * Little interest or pleasure in doing things Answer Date of Assessment Author More than half the days 09/12/2025 11:25 AM Jojo Moses MA * Feeling down, depressed, or hopeless Answer Date of Assessment Author More than half the days 09/12/2025 11:25 AM EST Jojo White MA * Trouble falling or staying asleep, or sleeping too much Answer Date of Assessment Author Nearly every day 09/12/2025 11:25 AM Jojo Velazquez MA * Feeling tired or having little energy Answer Date of Assessment Author More than half the days 09/12/2025 11:25 AM Jojo Moses MA * Poor appetite or overeating Answer Date of Assessment Author More than half the days 09/12/2025 11:25 AM Jojo Moses MA * Feeling bad about yourself - or that you are a failure or have let yourself or your family down Answer Date of Assessment Author Nearly every day 09/12/2025 11:25 AM Jojo Velazquez MA * Trouble concentrating on things, such as reading the newspaper or watching television Answer Date of Assessment Author More than half the days 09/12/2025 11:25 AM Jojo Moses MA * Moving or speaking so slowly that other people could have noticed? Or the opposite - being so fidgety or restless that you have been moving around a lot more than usual. Answer Date of Assessment Author More than half the days 09/12/2025 11:25 AM Jojo Moses MA * Thoughts that you would be better off or hurting yourself in some way Answer Date of Assessment Author Not at all 09/12/2025 11:25 AM Jojo Arceo MA * Patient Health Questionnaire-9 Score Answer Date of Assessment Author 18 09/12/2025 11:25 AM Jojo Arceo MA * How difficult have these problems made it for you to do your work, take care of things at home, or get along with other people? Answer Date of Assessment Author Not difficult at all 09/12/2025 11:25 AM Jojo Stern MA * Over the last 2 weeks, how often have you been bothered by any of the following problems? Question Answer Date of Assessment Author Feeling nervous, anxious, or on edge 1 09/12/2025 11:26 AM Jojo Moses MA Not being able to stop or control worrying 3 09/12/2025 11:26 AM Jojo Moses MA Worrying too much about different things 2 09/12/2025 11:26 AM Jojo Moses MA Trouble relaxing 3 09/12/2025 11:26 AM Jojo Moses MA Being so restless that it is hard to sit still 2 09/12/2025 11:26 AM Jojo Moses MA Becoming easily annoyed or irritable 2 09/12/2025 11:26 AM Jojo Moses MA Feeling afraid as if something awful might happen 1 09/12/2025 11:26 AM Jojo Velazquez MA ARIANNA-7 Total Score 14 09/12/2025 11:26 AM Jojo Moses MA documented as of this encounter Progress Notes * West Meier RN - 08/22/2025 2:16 PM EDT West Meier RN placed outbound call to patient. Patient's name, and address confirmed. Patient reports experiencing right hip pain for the past two days. She has been taking pwxe-sma-fmpxizvecxi medication, which provides mild relief, but states that topical pain relief creams and patcheshave not been effective. She denies any recent falls or injury. Patient reports that pain is aggravated by sitting, standing up, and certain positions. She shared that she was unable to walk yesterday due to the severity of the pain. Earlier today, patient reports that she experienced dizziness anddiaphoresis. Her MERCHANDISE FOR RES[employer] PURCHASING AGENT checked her blood pressure and blood sugar at that time, and both were within normal limits. She reports feeling better after lying down. The [facility] also visited earlier today and confirmed that her vital signs were within normal limits. Patient states that [facility] and [facility] [employer] [facility] services are in place daily and that everything is going well with her current care. Patient reports experiencing significant anxiety, depression, and feelings of sadness. She states that she often cries unexpectedly and without a clear trigger. She has an upcoming in-person appointment with her therapist scheduled for this Thursday but has not been able to speak with her recently as the therapist was on vacation. Patient denies any suicidal or homicidal ideation at this time and confirms that she has accessto a crisis hotline if needed. Pt reports experiencing increased forgetfulness, explaining that sheoccasionally places items somewhere and then is unable to recall where she put them shortly afterward. Patient reports asthma with occasional symptoms, requiring inhaler use as needed. Pt reports that she was unable to sleep well for two nights. Pt reports she has not yet received her knee brace. No further questions or concerns. CM reinforced direct contact information for any additional questions or concerns. Education provided on [facility] located in [facility] of [facility]. Patient provided with after-hours line for [facility], , which offer night time triage service and option to transfer to prosthodontist/owner provider if needed. Patient verbalizes understanding, and able to r epeat back to proposal writer. A follow up call will be placed within 10 days, patient agrees with plan. documented in this encounter Miscellaneous Notes * Care Plan - West Meier RN - 08/22/2025 2:16 PM EDT Problem: Pain Management Goal: Manage Pain Outcome: Not Progressing Note: Patient reports experiencing right hip pain for the past two days. She has been taking wuue-bjt-wqgvbor pain medication, which provides mild relief, but states that topical pain relief creams and patches have not been effective. She denies any recent falls or injury. Patient reports that painis aggravated by sitting, standing up, and certain positions. She shared that she was unable to walk yesterday due to the severity of the pain. documented in this encounter Plan of Treatment Upcoming Encounters Date Type Department Care Team (Late st Contact Info) Description 10/13/2025 11:45 AM EST Office Visit [facility] MEDICINE 230 [place] [address] Darrell Myers MD [address] [place] [address] 11/21/2025 1:00 PM EST Office Visit [facility] OPTOMETRY [address] [place], [place] [phone] Uyen Patterson, OD 230 [place] [address] documented as of this encounter Visit Diagnoses Not on filedocumented in this encounter Additional Health Concerns Assessment Noted Time PHQ-9 Depression Total Score: 18 025 12:18 PM EDT documented as of this encounter Care Teams Journeyman Powerhouse Operator Relationship Specialty Start Date End Date Umm Coley MD [address] [place] [address] PCP - General Family Medicine 10/31/16 West Meier, BEBA [address] [place] [address] Registered Nurse Family Medicine 05/10/25 [facility] 05/18/25 documented as of this encounter
--- OUTSIDE RECORDS SUMMARY | 2025-10-01 11:23 | XMS_ITS | Encounter Summary ---
Author Organization [employer] Address [address] [facility] 7t [place] [address] Care Team Providers Care Cultural Centre Manager Name Role Phone Umm Coley MD Primary Care Provider + West Meier RN Unavailable [phone] Reason for Visit * Reason Onset Date Comments Med Refill 06/28/2025 Encounter Details Date Type Department Care Team (Late st Contact Info) Description 06/28/2025 Telephone [facility] MEDICINE [address] [place], [place] [phone] Umm Coley MD [address] [place], [place] [phone] Med Refill Social History Tobacco Use Types [...] MCG (1999) capsule To be sent to: [facility]/pharmacy #[id number] [place], [place] - [address] [place] [address] documented in this encounter Plan of Treatment Upcoming Encounters Date Type Department Care Team (Late st Contact Info) Description 10/13/2025 11:45 AM EST Office Visit [facility] MEDICINE [address] [place] [address] Darrell Myers MD [address] [place] [address] 11/21/2025 1:00 PM EST Office Visit [facility] OPTOMETRY [address] [place] [address] LeonardoUyen awad, OD [address] [place] [address] documented as of this encounter Visit Diagnoses Not on filedocumented in this encounter Additional Health Concerns Assessment Noted Time PHQ-9 Depression Total Score: 10 024 9:17 AM EDT documented as of this encounter Care Teams Cultural Centre Manager Relationship Specialty Start Date End Date Umm Coley MD [address] [place] [address] PCP - General Family Medicine 10/31/16 West Meier RN [address] [place] [address] Registered Nurse Family Medicine 05/10/25 [facility] 05/18/25 documented as of this encounter
--- OUTSIDE RECORDS SUMMARY | 2025-10-01 11:23 | XMS_ITS | Encounter Summary ---
Author Organization [employer] Address [address] [facility] 7t [place] [address] Care Team Providers Care Supervisor Metal Cans Name Role Phone Umm Coley MD Primary Care Provider + West Meier RN Unavailable [phone] Reason for Visit * Reason Onset Date Comments form update 06/22/2025 Encounter Details Date Type Department Care Team ([facility] st Contact Info) Description 06/22/2025 Telephone [facility] MEDICINE [address] [place], [place] [phone] Umm Coley MD 230 [place], [place] [phone] form update Social History Tobacco Use Types [...] 10:42 AM EDT Tc from Yahir at [facility] requesting update on form faxed over for pt plan of care Contact Yahir at [phone] documented in this encounter Plan of Treatment Upcoming Encounters Date Type Department Care Team ([facility] st Contact Info) Description 10/13/2025 11:45 AM EST Office Visit [facility] MEDIC[facility] [address] [place] [address] [place] [phone] Darrell Myers MD [address] [place] [address] 11/21/2025 1:00 PM EST Office Visit [facility] OPTOMETRY [address] [place] [address] LeonardoUyen awad, OD [address] [place] [address] documented as of this encounter Visit Diagnoses Not on filedocumented in this encounter Additional Health Concerns Assessment Noted Time PHQ-9 Depression Total Score: 10 024 9:17 AM EDT documented as of this encounter Care Teams Supervisor Metal Cans Relationship Specialty Start Date End Date Umm Coley MD [address] [place], [place] [phone] PCP - General Family Medicine 10/31/16 West Meier, BEBA 505 [place] [address] Registered Nurse Family Medicine 05/10/25 [facility] 05/18/25 documented as of this encounter
--- OUTSIDE RECORDS SUMMARY | 2025-10-01 11:23 | XMS_ITS | Clinical Summary ---
Author Organization [employer] Address [address] [place] [address] 7[address] [place] [address] Care Team Providers Care Compensator Worker Name Role Phone Shalonda Coley MD Primary Care Provider + [place] RN Unavailable [phone] Allergies Active Allergy Reactions Criticality Noted Date [...] NEEDED FOR ALLERGIES 90 tablet 5 Active meclizine (Antivert) 25 MG tablet TOME NAIMA TABLETA (25 MG) POR VIA ORAL CUANDO SEA NECESARIO CHEMA VECES AL FREDRICK (MORNING, NOON AND AT BEDTIME) PARA EL MAREO 30 tablet 3 5 Active triamcinolone (Kenalog) 0.5 % ointmentIndica tions:Arthropo d bite, initial encounter Apply topically 2 times daily. 15 g 5 09/19/20 26 Active diphenhydrAMIN E (BENADryl) 2 % creamIndicatio ns:Arthropod bite, initial encounter Apply topically if needed in the morning, at noon, and at bedtime for itching. 30 g 5 09/19/20 26 Active ibuprofen 600 MG tabletIndicati ons:Left arm pain Take 1 tablet (600 mg) by mouth 3 times daily for 10 days. 30 tablet 5 09/29/20 25 Active Problems Problem Noted Date Diagnosed Date Concern about stroke without diagnosis 5 Lipoma of torso 09/12/2025 Mastalgia 09/12/2025 Radiation fibrosis of lung 08/10/2025 Assessment & Plan (08/10/2025 3:36 PM EDT): Sp breast CA chemotherapy toxicity, follow-up with collections and archives director. Doing better on Symbicort daily, has follow-up with collections and archives director next month. She is a non-smoker, she declines influenza COVID or PCV immunization today. Advised to have them and RSV at earliest convenience at a local pharmacy Myocardiopathy ([facility]) 08/10/2025 Assessment & Plan (08/10/2025 3:25 PM [...] psych medication as per psych prescriber at [facility]. She is on Colace daily [...] medication management by current VNA services ([facility]). I asked her if she wants [...] continue f/u with mental health provider in [facility]. Dry eye 05/16/2024 Assessment & Plan [...] She was referred to vestibular therapy at [facility], information given to pt to schedule appointment [...] write a complaint to the landlord, building internet systems administrator, and housing department. I gave them information about foreclosure paralegal in the [place] [address] Will refer to wound care specialist to assist with housing due to poor conditions of current apartment Pt already has a letter from counselor, will FU at next appointment Household circumstance affecting care 02/03/2023 Assessment & Plan (12/11/2023 9:49 AM EST): Pt has depression and difficulty with memory. She has a OPERATIONS PROJECT MANAGER and a VNA to manage med, pharma education. VNA can go a few times per week once a POC has been discussed and taught to pt's caregivers Assessment & Plan (04/02/2023 2:38 PM EDT): Pt continues to live in the same apartment with anxiety from recent of her neighbor. Already in contact with [facility] and team is helping her with letters for housing Assessment & Plan (02/26/2023 1:12 PM EDT): Pt lives alone, I will advise to move out to a different apartment due to increased anxiety with household circumstance Refer to [facility] [[email or web address]] Assessment & Plan (02/03/2023 2:23 PM EDT): [...] EST): Pt seen psychotherapist and psychiatry at [facility], needs medication management due to Hx [...] She will continue close follow up with [facility]. I explained to patient that [...] Plan (02/26/2023 1:11 PM EDT): Pt seeing [facility] team every week. I counseled her to [...] we can organize the medications. Pt and OPERATIONS PROJECT MANAGER agreed with the plan of care. POC discussed with team nurse and group home supervisor. Assessment & Plan (04/28/2024 3:33 PM [...] new CM program, she has a new OPERATIONS PROJECT MANAGER and VNA goes daily to administer medication and thus psychoeducation. Continue close follow-up with [facility] psychiatry prescriber, she is on multiple medications for depression, anxiety and insomnia. Continue close follow-up with counselor Niyah Whatley from [facility] psychiatrist, she feels safe at home and is able to reach out for safety Patient denies any acute or recent SI or HI Assessment & Plan (05/02/2025 3:09 PM EDT): Worsening related to external circumstances and also to lack of medications as she has not been taking medications as prescribed. As per the recent medication list requested by case assembler on March 2025, she was on BuSpar 15 mg 3 times daily, clonazepam twice daily as needed anxiety, mirtazapine 30 mg nightly, olanzapine 20 mg nightly, prazosin 4 mg nightly and sertraline 200 mg/day (See encounter under media on 03/03/2025). She will continue to follow [facility] for pharmacotherapy and continue to see her therapist Niyah Whatley regularly (ph#[phone]). At this time she feels safe at home and is able to reach out for safety both of her therapist, the crisis and I told her that she can come to walk-in clinic as needed worsening anxiety. No change in medications at this time, will call [facility] psychiatry for med reconciliation and VNA [...] (04/28/2024 5:25 PM EDT): Pt seen by [facility] clinician, continue psychotherapy every week. She [...] she needs pharmaco education. She's followed by [facility] psych. I told her and OPERATIONS PROJECT MANAGER she needs to bring all her med bottles so we can go over her meds until the new VNA service is restarted. Her OPERATIONS PROJECT MANAGER is helping her as well as her daughter With meds for now. Pt feels safe. Will send new Rx if needed with prescription in indian so VNA can read it (one of the issues being that med rx were written in Tajik and the VNA that took over didn't understand the directions). Will check with VNA service to see what current situation is, pt wants to start using a new VNA service (the one her neighbor uses, [facility], [place] based) . Hip pain 02/16/2018 Assessment & Plan (03/11/2024 11:24 AM EDT): Has underlying OA, probably exacerbated by recent fall Pt will start receiving PT at home and evaluation of home safety to prevent further falls. 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 Take naproxen or Tylenol as needed She needs a OPERATIONS PROJECT MANAGER to help her with ADLs Fibromyositis 04/15/2012 [...] Plan (05/02/2024 5:56 PM EDT): -Followed by [facility] GI - last available consult note March [...] has to reschedule pharmacological stress test in [facility] dc amlodipine and flexeril and [...] Encounters Date Type Department Care Team Description 09/25/2025 Telephone [facility] [address] [place] [address] [place] [address] Shalonda Coley MD 09/25/[address] [place] [address] Shalonda Coley MD Call Back Request 09/19/2025 6:00 PM EST Office Visit [facility] [address] [place], [place] [address] [address] Akshat Slater CNP Left arm pain (Primary Dx); Chronic neck pain; Arthropod bite, initial encounter 09/19/2025 Travel 09/19/20[address] [place] [address] Shalonda Coley MD Nurse Triage 09/12/2025 11:15 AM EST Office [address] [place] [address] Shalonda Coley MD 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); Borderline personality disorder (CMS/HCC) (HCC); Concern about stroke without diagnosis; Lipoma of torso; Mastalgia 09/12/2025 Travel 09/11/[address] [place] [address] Shalonda Coley MD Chart Prep 09/07/[address] [address] Shalonda Coley MD Appointment Request 09/05/2025 Orders Only [facility] External Provider, [facility] 08/29/2025 Refill [facility] [address] [place] [address] Shalonda Coley MD 08/22/2025 Patient Outreach [facility] [address] [place] [address] Shalonda Coley MD Care Management (C3CM- F/U call) 08/17/[address] [address] Shalonda Coley MD DME 08/11/[address] [address] Shalonda Coley MD DME 08/10/2025 11:45 AM EDT Office Visit [address] [address] Shalonda Coley MD Wrist fracture, closed, right, with routine healing, subsequent encounter (Primary Dx); Radiation fibrosis of lung (CMS/HCC); Other cardiomyopathy (HCC); Ductal carcinoma of right breast (CMS/HCC) (HCC); 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); Other specified hearing loss of right ear, unspecified hearing status on contralateral side; Vitamin D deficiency; Localized osteoarthritis of left knee 08/10/2025 Travel 08/10/2025 Telephone [facility] [address] [place] [address] Shalonda Coley MD Chart prep 07/19/[address] [address] Shalonda Coley MD Appointment Request 07/18/2025 Orders Only [facility] External Provider, [facility] 07/14/[address] [address] Shalonda Coley MD Med Refill 07/12/2025 11:00 AM EDT Office Visit [facility] [address] [place] [address] Shalonda Coley MD Other specified hypotension (Primary Dx) 07/12/2025 Travel 07/11/[address] [address] Shalonda Coley MD chart prep 07/10/2025 Patient Outreach [address] [phone] Shalonda Coley MD Care Management (C3CM- F/U call # 3) 07/06/[address] [address] Shalonda Coley MD Nurse Triage 07/06/[address] [phone] Shalonda Coley MD from Last 3 Months Immunizations Immunization Administration [...] Sign Reading Time Taken Comments Blood Pressure 134/75 09/19/2025 5:08 PM EST Pulse 88 09/19/2025 5:08 PM EST Temperature 36.9 C (98.4 F) 09/19/2025 5:08 PM EST Respiratory Rate 19 09/19/2025 5:08 PM EST Oxygen Saturation 96% 09/19/2025 5:08 PM EST Inhaled Oxygen Concentration - - Weight 51.7 kg (114 lb) 09/19/2025 5:08 PM EST Height 157.5 cm (5' 2 ) 09/19/2025 5:08 PM EST Body Mass Index 20.85 09/19/2025 5:08 PM EST Plan of Treatment Upcoming Encounters Date Type Department Care Team (Late st Contact Info) Description 10/13/2025 11:45 AM EST Office Visit [facility] [address] [place] [address] Darrell Myers MD [address] [place] [address] 11/21/2025 1:00 PM EST Office Visit [facility] [address] [place] [address] LeonardoUyen awad, OD [address] [place] [address] Health Maintenance Due Date Last Done Comments [...] 60 years or older (1 - Risk 50-74 years 1-dose series) 2013 COVID-19 Vaccine (4 - season) 2025 12/04/2021, 02/06/2021, 01/09/2021 Influenza Vaccine (#1) 2025 , 07/21/2023, 08/21/2022, Additional history exists DTaP/Tdap/Td Vaccines (2 - Td or Tdap) 08/01/2025 08/01/2015, 11/14/2013, 08/01/2005 Dental Oral Exam 09/25/2025 03/24/2025, , 05/25/2023 Pap Smear 10/08/2025 10/08/2022, 06/18/2016 Mammogram 11/29/2025 11/29/2024, 11/03, 11/24/2023, Additional history exists Dental Prophylaxis 12/08/2025 06/06/2025, 0 04/04/2024, 05/25/2023 Depression Monitoring 03/12/2026 09/12/2025, 025 Dental X-Ray: Bitewings 03/25/2026 03/24/20 25, 08/01/2024, 04/04/2024, Additional history exists Alcohol/Substance Use Screening 05/02/2026 05/02/2025 Disability Screening 05/02/2026 05/02/2025 SDOH Screening 05/02/2026 05/02/2025 Tobacco Screening 09/19/2026 09/19/2025 Cervical Cancer Screening 10/08/2027 HPV/Cotest 10/08/2027 10/08/2022 Dental X-Ray: Full Mouth 03/25/2028 025, 03/13/2022, 03/13/2022 Colonoscopy 07/30/2028 07/30/2023 Colorectal Cancer Screening 07/30/2028 Lipid Panel 01/31/2030 01/31/2025, 04/30/2022 Zoster Vaccines Completed 05/24/2020, 12/02/2019 HIV Screening [...] REFLEX MICROSCOPIC Routine 07/18/2025 1:33 PM EDT PROPHYLAXIS - ADULT Routine 06/06/2025 1 :00 PM EDT INTRAORAL - COMPLETE SERIES OF RADIOGRAPHIC IMAGES Routine 03/24/2025 2:00 PM EDT Periodontal disease PERIODIC ORAL EVALUATION - ESTABLISHED PATIENT Routine 03/24/2025 2:00 PM EDT Periodontal disease LIPID PANEL WITH REFLEX TO DIRECT LDL Routine 01/31/2025 8:47 AM EDT Steatosis of liver BI MAMMOGRAM SCREENING TOMOSYNTHESIS BILATERAL Routine 11/29/2024 8:45 AM EST HM COLONOSCOPY Routine 07/30/2023 THINPREP PAP AND HPV MRNA E6/E7 Routine 10/08/2022 9:30 AM EST ZZZ HISTORICAL HIV AB/AG Routine 04/30/2022 11:28 AM EDT from Last 3 Months or Most Recently Relevant to Health Maintenance Results * Stress test with myocardial perfusion (09/05/2025 11:02 AM EST) 09/05/2025 11:0 2 AM EST Narrative [facility] - 09/07/2025 8:52 AM EST [place] [address] Nuclear Medicine Report Signed Patient: Diana Mcpherson MR#: M [id number] : 1965 Acct:[id number] Age/Sex: 60 / F ADM Date: 09/05/25 Loc: [facility] Attending Dr: Anthony Curtis MD Ordering Physician: Anthony Curtis MD Date of Service: 09/05/25 Procedure(s): NM cardiolite stress test Accession Number(s): [id number] cc: Shalonda Coley MD; Anthony Curtis MD [...] by: Juan Ferrell MD 09/07/2025 08:49 AM [facility] Dictated By: Juan Ferrell MD Signed By: <Electronically signed by Juan Ferrell MD in OV> 09/07/25 0849 DD/ 1102 TD/TT: 09/06/25 0900 Car Detailer: Procedure Note Donotuseinterpreter, Image - 09/07/2025 [place] [address] Nuclear Medicine Report Signed Patient: Diana Mcpherson LMR#: M [id number] : 1965Acct:[id number] Age/Sex: 60 / FADM Date: 09/05/25 [facility] Dr: Anthony Curtis MD Ordering Physician: Anthony Curtis MD Date of Service: 09/05/25 Procedure(s): NM cardiolite stress test Accession Number(s): [id number] cc: Shalonda Coley MD; Anthony Curtis MD [...] by: Juan Ferrell MD 09/07/2025 08:49 AM [facility] Dictated By: Juan Ferrell MD Signed By: <Electronically signed by Juan Ferrell MD inOV> 09/07/25 0849 DD/ 1102 TD/TT: 09/06/25 0900 Car Detailer: us [facility] External Provider CV STRE SS PROCEDURES Final Result [facility] [address] [place] [address] * XR Abdomen 2 View minimum (08/16/2025 11:17 AM EDT) Only the most recent of2 resultswithin the time period is included. Anatomical Region Laterality Modality Abdomen Radiographic Kyleigh ging 08/16/2025 11:1 7 AM EDT Narrative 08/16/2025 11:34 AM EDT [address] [address] XRay Report Signed Patient: Diana Mcpherson MR#: M [id number] : 1965 Acct:[id number] Age/Sex: 60 / F ADM Date: 08/16/25 Loc: [facility].XRAY Attending Dr: Zee ALCANTARA Ordering Physician: Zee Palma Date of Service: 08/16/25 Procedure(s): XR abdomen min 2V Accession Number(s): [id number] cc: Zee Palma; Shalonda Coley MD Reason [...] 08/16/25 1131 DD/ 1117 TD/TT: 08/16/25 1120 Car Detailer: Procedure Note Donotuseinterpreter, Image - 08/16/[address] [address] XRay Report Signed Patient: Diana Mcpherson LMR#: M [id number] : 1965Acct:[id number] Age/Sex: 60 / FADM Date: 08/16/25 Loc: [facility].XRAY Attending Dr: Zee ALCANTARA Ordering Physician: Zee Palma Date of Service: 08/16/25 Procedure(s): XR abdomen min 2V Accession Number(s): [id number] cc: Zee Palma; Shalonda Coley MD Reason [...] 08/16/25 1131 DD/ 1117 TD/TT: 08/16/25 1120 Car Detailer: us [facility] External Provider IMG XR PROCEDURES Final Result * XR Hand 3+Views Bilateral (08/07/2025 12:11 PM EDT) Anatomical Region Laterality Modality Upper Extremities, Hand Bilateral Radiogra phic Imaging 08/07/2025 12:1 1 PM EDT Narrative 08/07/2025 1:08 PM EDT [address] [address] XRay Report Signed Patient: Diana Mcpherson MR#: M [id number] : 1965 Acct:[id number] Age/Sex: 60 / F ADM Date: 08/07/25 Loc: [facility] Attending Dr: Girish Frye MD Ordering Physician: Girish Frye MD Date of Service: 08/07/25 Procedure(s): XR Hand Bilat min 3v Accession Number(s): [id number] cc: Shalonda Coley MD; Girish Frye MD [...] 08/07/25 1306 DD/ 1211 TD/TT: 08/07/25 1223 Car Detailer: Procedure Note Donotuseinterpreter, Image - 08/07/[address] [address] XRay Report Signed Patient: Diana Mcpherson LMR#: M [id number] : 1965Acct:[id number] Age/Sex: 60 / FADM Date: 08/07/25 Loc: [facility] Attending Dr: Girish Frye MD Ordering Physician: Girish Frye MD Date of Service: 08/07/25 Procedure(s): XR Hand Bilat min 3v Accession Number(s): [id number] cc: Shalonda Coley MD; Girish Frye MD [...] 08/07/25 1306 DD/ 1211 TD/TT: 08/07/25 1223 Car Detailer: OLYA [facility] External Provider IMG XR PROCEDURES Final Result * XR Knee 3 Views Bilateral (08/07/2025 12:05 PM EDT) Anatomical Region Laterality Modality Lower Extremities, Knee Bilateral Radiogra phic Imaging 08/07/2025 12:0 5 PM EDT Narrative 08/07/2025 12:34 PM EDT [address] [address] XRay Report Signed Patient: Diana Mcpherson MR#: M [id number] : 1965 Acct:[id number] Age/Sex: 60 / F ADM Date: 08/07/25 Loc: [facility] Attending Dr: Girish Frye MD Ordering Physician: Girish Frye MD Date of Service: 08/07/25 Procedure(s): XR Knee Philip 3V Accession Number(s): [id number] cc: Shalonda Coley MD; Girish Frye MD [...] 08/07/25 1232 DD/ 1205 TD/TT: 08/07/25 1223 Car Detailer: OLYA Procedure Note Donotuseinterpreter, Image - 08/07/2025 [place] [address] XRay Report Signed Patient: Diana Mcpherson LMR#: M [id number] : 1965Acct:[id number] Age/Sex: 60 / FADM Date: 08/07/25 Loc: [facility] Attending Dr: Girish Frye MD Ordering Physician: Girish Frye MD Date of Service: 08/07/25 Procedure(s): XR Knee Philip 3V Accession Number(s): [id number] cc: Shalonda Coley MD; Girish Frye MD [...] 08/07/25 1232 DD/ 1205 TD/TT: 08/07/25 1223 Car Detailer: OLYA [facility] External Provider IMG XR PROCEDURES Final Result * XR Thoracic Spine 2 Views (07/18/2025 1:56 PM EDT) Anatomical Region Laterality Modality Spine, T-spine Radiographic Kyleigh ging 07/18/2025 1:56 PM EDT Narrative 07/18/2025 2:18 PM EDT [place] [address] XRay Report Signed Patient: Diana Mcpherson MR#: M [id number] : 1965 Acct:[id number] Age/Sex: 60 / F ADM Date: 07/18/25 Loc: [facility].XRAY Attending Dr: Zee ALCANTARA Ordering Physician: Zee Palma Date of Service: 07/18/25 Procedure(s): XR thoracic spine 2V Accession Number(s): [id number] cc: Zee Palma; Shalonda Coley MD Reason [...] 07/18/25 1414 DD/ 1356 TD/TT: 07/18/25 1411 Car Detailer: Procedure Note Donotuseinterpreter, Image - 07/18/2025 [place] [address] XRay Report Signed Patient: Diana Mcpherson LMR#: M [id number] : 1965Acct:[id number] Age/Sex: 60 / FADM Date: 07/18/25 Loc: [facility].XRAY Attending Dr: Zee ALCANTARA Ordering Physician: Zee Palma Date of Service: 07/18/25 Procedure(s): XR thoracic spine 2V Accession Number(s): [id number] cc: Zee Palma; Shalonda Coley MD Reason [...] in OV> 07/18/25 1414 DD/ 1356 TD/TT: 07/18/251410 Car Detailer: us [facility] External Provider IMG XR PROCEDURES Edited Result - Final * XR Ribs 2 Views Right (07/18/2025 1:50 PM EDT) Anatomical Region Laterality Modality Rib, Abdomen Right Radiographic Kyleigh ging 07/18/2025 1:50 PM EDT Narrative 07/18/2025 2:19 PM EDT [address] [address] XRay Report Signed Patient: Diana Mcpherson MR#: M [id number] : 1965 Acct:[id number] Age/Sex: 60 / F ADM Date: 07/18/25 Loc: [facility].XRAY Attending Dr: Zee ALCANTARA Ordering Physician: Zee Palma Date of Service: 07/18/25 Procedure(s): XR ribs RT 2V Accession Number(s): [id number] cc: Zee Palma; Shalonda Coley MD Reason [...] in OV> 07/18/25 1415 DD/ 1350 TD/TT: 07/18/251411 Car Detailer: Procedure Note Donotuseinterpreter, Image - 07/18/[address] [address] XRay Report Signed Patient: Diana Mcpherson LMR#: M [id number] : 1965Acct:[id number] Age/Sex: 60 / FADM Date: 07/18/25 Loc: HO.XRAY Attending Dr: Zee ALCANTARA Ordering Physician: Zee Palma Date of Service: 07/18/25 Procedure(s): XR ribs RT 2V Accession Number(s): [id number] cc: Zee Palma; Shalonda Coley MD Reason [...] 07/18/25 1415 DD/ 1350 TD/TT: 07/18/25 1412 Car Detailer: us [facility] External Provider IMG XR PROCEDURES Edited Result - Final * Urinalysis w/reflex microscopic (07/18/2025 1:33 PM EDT) Color Urine Yellow [facility] Appearance Urine Clear [facility] PH 5.5 5.0 - 9.0 [facility] Glucose Urine UA Negative Negative mg/dL [facility] Urine Blood Negative Negative [facility] Specific Fitzgerald - Urine 1.020 1.005 - 1.025 [facility] Urine Protein Negative Neg-Trace mg/dL [facility] Urine Ketones Negative Negative mg/dL [facility] Nitrite Urine Negative Negative [facility] Leukocyte Esterase Urine Negative Negative [facility] 07/18/2025 1:33 PM EDT 07/18/2025 2:15 PM EDT Narrative [facility] - 07/18/2025 2:37 PM EDT Urine, Clean Catch us Generic External Data Provider LAB URINE ORDERAB LES Final Result [facility] [address] [place] [phone] * (ABNORMAL) Lipid Panel with Reflex to Direct LDL (01/31/2025 8:47 AM EDT) Triglycerides 69 <150 mg/dL [facility] Comment:Desirable Triglyceri de: less than 150 mg/dLBorderline High Triglyceride 150-199 mg/dLHigh Triglyceride: 200-499 mg/dLVery High Triglyceride: greater than or equal to 5OO mg/dL Cholesterol 213(H) <200 mg/dL [facility] Comment:Desirable Cholestero l: less than 200 mg/dLBorderline High Cholesterol: 200-239 mg/dLHigh Cholesterol: greater than 239 mg/dL LDL Cholesterol Calculated 128(H) <100 mg/dL [facility] Comment:Desirable LDL: less than 100 mg/dLNear Optimal/Above Optimal LDL: 110- 129 mg/dLBorderline High LDL: 130-159 mg/dLHigh LDL: 160-189 mg/dLVery High LDL: greater than or equal to 190 mg/dL HDL Cholesterol 72 >40 mg/dL [facility] Comment:Desirable HDL: great er than 40 mg/dL Note: This HDL assay may give artificially low results in patients with liver disease. Blood 01/31/2025 8:47 AM EDT 01/31/2025 8:47 AM EDT us Shalonda Coley MD LAB BLOOD ORDERABLES Fin al Result [facility] [address] [place] [address] [phone] * BI Mammogram Screening Tomosynthesis Bilateral (11/29/2024 8:45 AM EST) Anatomical Region Laterality Modality Breast Bilateral Mammography 11/29/2024 8:45 AM EST Narrative 12/07/2024 3:35 PM EST [address] [place] [address] Mammography Report Signed Patient: Diana Myles MR#: [id number] 8 : 1965 Acct:[id number] Age/Sex: 59 / F ADM Date: 11/29/24 Loc: HO.MAMMO Attending Dr: Shalonda Coley MD Ordering Physician: Shalonda Coley MD Results: 2Be nign Findings Date of Service: 11/29/24 Follow Up: 1 Year From Orig ina Mammogram Procedure(s): MM tomosynthesis screening BI Accession Number(s): [id number] cc: Shalonda Coley MD EXAMINATION: MM SCREENING [...] 12/07/24 1532 DD/ 0845 TD/TT: 11/29/24 0915 Car Detailer: Procedure Note Donotuseinterpreter, Image - 12/07/2024 [facility] [address] [place] [address] Mammography Report Signed Patient: Diana Myles LMR#: [id number] 8 : 1965Acct:[id number] Age/Sex: 59 / FADM Date: 11/29/24 Loc: HO.MAMMO Attending Dr: Shalonda Coley MD Ordering Physician: Shalonda Coley MDResults: 2Be nign Findings Date of Service: 11/29/24Follow Up: 1 Year From Orig ina Mammogram Procedure(s): MM tomosynthesis screening BI Accession Number(s): [id number] cc: Shalonda Coley MD EXAMINATION: MM SCREENING [...] 12/07/24 1532 DD/ 0845 TD/TT: 11/29/24 0915 Car Detailer: Shalonda Coley MD IMG BI PROCEDURES Edited Result - Final * (ABNORMAL) Colonoscopy (07/30/2023) Colonoscopy Abnormal( A) Normal [facility] Comment:SSL polyp Shalonda Coley MD HEALTH MAINTENANCE Final Result [facility] [address] [place] [phone] * Thinprep PAP and HPV nRNA E6/E7 (10/08/2022 9:30 AM EST) Clinical Information: None given [facility] LMP: NONE GIVEN [facility] Prev. PAP: NONE GIVEN [facility] Prev. BX: NONE GIVEN [facility] SOURCE: None given [facility] Statement Of Adequacy: SATISFACTORY FOR EVALUATION Age and/or menstrual status not provided [facility] Interpretation/Re sult: [facility] Comment: Negative for intraepithelial lesion or malignancy. Atrophic pattern; predominantly parabasal cells Graphic Artist: [facility] Comment: DMM, CT(ASCP) CT screening location: [place] [address] Review Graphic Artist: Endoluminal Sciencest Comment: MAA, CT(ASCP) CT screening location: [place] [address] (Always Message) Que Triptrottingt Comment: EXPLANATORY NOTE: The Pap is a [...] HPV nRNA E6/E7 Not Detected Not Detected [email or web address] Comment: Methodology: High School Mathematics Teacher-Mediated Amplification This assay detects E6/E7 viral messenger RNA (mRNA) from 14 high-risk HPV types (16,18,31,33,35,39,45,51,52,56,58,59,66,68). Cervical sources are required for HPV testing. If a vaginal source from a patient who has had a total hysterectomy with removal of cervix was submitted, please contact the testing laboratory for alternative testing options. For additional information, please refer to http://education.PercuVision/faq/CCY095g1 (This link if provided for information/ educational purposes only.) 10/08/2022 9:30 AM EST 10/10/2022 1:07 AM EST Narrative [facility] - 10/14/2022 7:08 PM EST FASTING: UNKNOWN Shauna Matamoros [facility] PATHOLOGY ORDERABLES Final Result [facility] [address] [place] [address] [facility] [address], [place] [address] * HIV AB/AG (04/30/2022 11:28 AM EDT) Pathologist [facility] HIV AB/AG Nonreactive Nonreactive [facility] Comment: HIV-1 p24 Ag and/or [...] of detection of this assay. The Pineda Pottery Decoration Designer HIV Ag/Ab Combo assay result and supplemental [...] Final Result [facility] [address] [place] [address], from Last 3 Months or Most Recently Relevant to Health Maintenance [facility] C[facility] [place] STAND ADULT Care Teams Compensator Worker Relationship Specialty Start Date End Date Shalonda Coley MD [address] [place] [address] PCP - General Family Medicine 10/31/16 West Meier, BEBA [address] [place] [address] Registered Nurse Family Medicine 05/10/25 [facility] 05/18/25
--- OUTSIDE RECORDS SUMMARY | 2025-10-01 11:23 | XMS_ITS | Encounter Summary ---
Author Organization [employer] Address [address] [place] [address] 7t [place] [address] Care Team Providers Care Cigar Bander Name Role Phone Umm Coley MD Primary Care Provider + West Meier RN Unavailable [phone] West Meier RN Unavailable [phone] Shannan Covington Unavailable Encounter Details Date Type Department Care Team (Latest Contact Info) Description 11/23/2020 Abstract [facility] CONVERSIONS Dental, Provider, DDS Social History [...] Visit [facility] MEDICINE 230 [place], [place] [phone] Darrell Myers MD 230 [place], [place] [phone] 11/21/2025 1:00 PM EST Office Visit [facility] OPTOMETRY 267 [place], [place] [phone] Uyen Patterson, OD 230 [place], [place] [phone] documented as of this encounter Visit Diagnoses Not on filedocumented in this encounter Care Teams Cigar Bander Relationship Specialty Start Date End Date Umm Coley MD [address] [place] [address] PCP - General Family Medicine 10/31/16 West Meier, RN 505 [place] [address] PanmanZoo Director 01/12/25 04/25/25 West Meier RN 505 [place] [address] Registered Nurse Family Medicine 05/10/25 Shannan Covington 06/08/25 06/08/25 Eva Nunez Panman 04/05/24 07/06/24 [facility] 05/11/24 11/17/24 [facility] 11/14/24 01/17/25 Ahonya 12/08/24 [facility] 05/18/25 documented as of this encounter
--- OUTSIDE RECORDS SUMMARY | 2025-10-01 11:23 | XMS_ITS | Encounter Summary ---
Author Organization [employer] Address [address] [place] [address] 7t [place] [address] Care Team Providers Care Meterman Name Role Phone Umm Coley MD Primary Care Provider + West Meier RN Unavailable [phone] West Meier RN Unavailable [phone] Shannan Covington Unavailable Reason for Visit * Reason Onset Date Comments pre med prior to dental treatment 08/23/2024 Encounter Details Date Type Department Care Team ([facility] st Contact Info) Description 08/23/2024 Telephone [facility] ADULT DENTAL 505 [place], [place] [phone] Johnny Gonzalez DMD 505 [place], [place] [phone] pre med prior to dental treatment Social [...] Visit [facility]INE [address] [facility] [place] [address] Darrell Myers MD 230 [place] [address] 11/21/2025 1:00 PM EST Office Visit [facility] OPTOMETRY [address] [place], [place] [phone] Leonardo, Uyen, OD 230 [facility] [place] [place] [address] documented as of this encounter Visit Diagnoses Not on filedocumented in this encounter Additional Health Concerns Assessment Noted Time PHQ-9 Depression Total Score: 10 024 9:17 AM EDT documented as of this encounter Care Teams Meterman Relationship Specialty Start Date End Date Umm Coley MD 230 [place], [place] [phone] PCP - General Family Medicine 10/31/16 West Meier RN 505 [facility] [place] [address] Credit Collections RepDental Resident 01/12/25 04/25/25 West Meier RN 505 [facility] [place] [address] Registered Nurse Family Medicine 05/10/25 Shannan Covington 06/08/25 06/08/25 [facility] 05/11/24 11/17/24 [facility] 11/14/24 01/17/25 [email or web address] 12/08/24 [facility] 05/18/25 documented as of this encounter
--- OUTSIDE RECORDS SUMMARY | 2025-10-01 11:23 | XMS_ITS | Encounter Summary ---
Author Organization [employer] Address [address] [place] [address] 7t [place] [address] Care Team Providers Care Detention Deputy Name Role Phone Umm Coley MD Primary Care Provider + West Meier RN Unavailable [phone] West Meier RN Unavailable [phone] Shannan Covington Unavailable Encounter Details Date Type Department Care Team (Latest Contact Info) Description 03/13/2022 Abstract [facility] CONVERSIONS Dental, Provider, DDS Social [...] Description 10/13/2025 11:45 AM EST Office Visit [facility] MEDICINE 230 [place], [place] [phone] Darrell Myers MD 230 [place], [place] [phone] 11/21/2025 1:00 PM EST Office Visit [facility] OPTOMETRY 267 [place], [place] [phone] Uyen Patterson, OD 230 [place], [place] [phone] documented as of this encounter Visit Diagnoses Not on filedocumented in this encounter Care Teams Detention Deputy Relationship Specialty Start Date End Date Umm Coley MD [address] [place] [address] PCP - General Family Medicine 10/31/16 West Meier, RN 505 [place] [address] Shoe PullerLivestock Farm Manager 01/12/25 04/25/25 West Meier RN 505 [place] [address] Registered Nurse Family Medicine 05/10/25 Shannan Covington 06/08/25 06/08/25 Eva Nunez Shoe Puller 04/05/24 07/06/24 [facility] 05/11/24 11/17/24 [facility] 11/14/24 01/17/25 [employer] 12/08/24 [facility] 05/18/25 documented as of this encounter
--- OUTSIDE RECORDS SUMMARY | 2025-10-01 11:23 | XMS_ITS | Encounter Summary ---
Author Organization [facility] Address [address] [facility] 7t [place] [address] Care Team Providers Care Aircraft Cleaner Name Role Phone Umm Coley MD Primary Care Provider + West Meier RN Unavailable [phone] Reason for Visit * Reason Comments Med Refill Encounter Details Date Type Department Care Team (Late st Contact Info) Description 07/06/2025 Refill [facility] MEDICINE 230 [place], [place] [phone] Umm Coley MD 230 [place], [place] [phone] Social History Tobacco Use Types Packs/Day Years [...] [facility] MEDICINE 230 [place] [address] Darerll Myers MD 230 [place] [address] 11/21/2025 1:00 PM EST Office Visit [facility] OPTOMETRY 267 [place] [address] Uyen Patterson, OD 230 [place] [address] documented as of this encounter Visit Diagnoses Not on filedocumented in this encounter Additional Health Concerns Assessment Noted Time PHQ-9 Depression Total Score: 10 024 9:17 AM EDT documented as of this encounter Care Teams Aircraft Cleaner Relationship Specialty Start Date End Date Umm Coley MD [address] [place] [address] PCP - General Family Medicine 10/31/16 West Meier, BEBA [address] [place] [address] Registered Nurse Family Medicine 05/10/25 [facility] 05/18/25 documented as of this encounter
--- OUTSIDE RECORDS SUMMARY | 2025-10-01 11:23 | XMS_ITS | Encounter Summary ---
Author Organization [employer] [facility] Address [address] [place] [address] 7t [place] [address] Care Team Providers Care Hydro Station Operator Name Role Phone Umm Coley MD Primary Care Provider + West Meier RN Unavailable [phone] West Meier RN Unavailable [phone] Shannan Covington Unavailable Reason for Visit * Reason Comments Med Refill Encounter Details Date Type Department Care Team (Late st Contact Info) Description 08/01/2023 Refill [facility] MEDICINE 230 [place], [place] [phone] Umm Coley MD 230 [place], [place] [phone] Social History Tobacco Use Types Packs/Day Years [...] Description 10/13/2025 11:45 AM EST Office Visit [facility] MEDICINE 230 [place] [address] Darrell Myers MD 230 [place] [address] 11/21/2025 1:00 PM EST Office Visit [facility] OPTOMETRY [address] [place] [address] Leonardo, Uyen, OD 230 [place] [address] documented as of this encounter Visit Diagnoses Not on filedocumented in this encounter Additional Health Concerns Assessment Noted Time PHQ-9 Depression Total Score: 12 023 1:58 PM EDT documented as of this encounter Care Teams Hydro Station Operator Relationship Specialty Start Date End Date Umm Coley MD 230 [place], [place] [phone] PCP - General Family Medicine 10/31/16 West Meier RN 505 [place] [address] Waste Disposal Leakage TesterSupervisor Matrix 01/12/25 04/25/25 West Meier, RN 505 [place] [address] Registered Nurse Family Medicine 05/10/25 Shannan Covington 06/08/25 06/08/25 Eva Nunez Waste Disposal Leakage Tester 04/05/24 07/06/24 [facility] 05/11/24 11/17/24 [facility] 11/14/24 01/17/25 [employer] 12/08/24 [facility] 05/18/25 documented as of this encounter
--- OUTSIDE RECORDS SUMMARY | 2025-10-01 11:23 | XMS_ITS | Encounter Summary ---
Author Organization [employer] Address [address] [place] [address] 7t [place] [address] Care Team Providers Care Project Drilling Engineer Name Role Phone Umm Coley MD Primary Care Provider + West Meier RN Unavailable [phone] West Meier RN Unavailable [phone] Shannan Covington Unavailable Reason for Visit * Reason Onset Date Comments Appointment 06/15/2023 Encounter Details Date Type Department Care Team (Late st Contact Info) Description 06/15/2023 Telephone [facility] ADULT DENTAL 230 [place] [address] Johnny Gonzalez, WILIAN [address] [place], [place] [phone] Appointment Social History Tobacco Use Types Packs/Day [...] Office Visit [facility] MEDICINE 230 [place] [address] Darrell Myers MD 230 [place] [address] 11/21/2025 1:00 PM EST Office Visit [facility] OPTOMETRY [address] [place] [address] Leonardo, Uyen, OD 230 [place] [address] documented as of this encounter Visit Diagnoses Not on filedocumented in this encounter Additional Health Concerns Assessment Noted Time PHQ-9 Depression Total Score: 12 023 1:58 PM EDT documented as of this encounter Care Teams Project Drilling Engineer Relationship Specialty Start Date End Date Umm Coley MD 230 [place] [address] PCP - General Family Medicine 10/31/16 West Meier, BEBA 505 [place] [address] Operations Manager StationTrim Die Maker 01/12/25 04/25/25 West Meier, RN [address] [place] [address] Registered Nurse Family Medicine 05/10/25 Shannan Covington 06/08/25 06/08/25 Eva Nunez Operations Manager Station 04/05/24 07/06/24 [facility] 05/11/24 11/17/24 [facility] 11/14/24 01/17/25 [employer] 12/08/24 [facility] 05/18/25 documented as of this encounter
--- OUTSIDE RECORDS SUMMARY | 2025-10-01 11:23 | XMS_ITS | Encounter Summary ---
Author Organization [employer] Address [address] [place] [address] 7t [place] [address] Care Team Providers Care Compensation And Benefits Administrator Name Role Phone Umm Coley MD Primary Care Provider + West Meier RN Unavailable [phone] West Meier RN Unavailable [phone] Shannan Covington Unavailable Reason for Visit * Reason Onset Date Comments appt 01/08/2024 Encounter Details Date Type Department Care Team (Late st Contact Info) Description 01/08/2024 Telephone [facility] ADULT DENTAL 505 [place], [place] [phone] Homer Strong DDS 505 [place], [place] [phone] appt Social History Tobacco Use Types Packs/Day [...] [facility] MEDICINE 230 [place] [address] Darrell Myers MD 230 [place] [address] 11/21/2025 1:00 PM EST Office Visit [facility] OPTOMETRY 267 [place] [address] Uyen Patterson, OD 230 [place] [address] documented as of this encounter Visit Diagnoses Not on filedocumented in this encounter Additional Health Concerns Assessment Noted Time PHQ-9 Depression Total Score: 21 024 11:31 AM EST documented as of this encounter Care Teams Compensation And Benefits Administrator Relationship Specialty Start Date End Date Umm Coley MD [address] [place] [address] PCP - General Family Medicine 10/31/16 West Meier RN 505 [place] [address] Water Softener ServicerLoss Prevention Detective 01/12/25 04/25/25 West Meier RN 505 [place] [address] Registered Nurse Family Medicine 05/10/25 Shannan Covington 06/08/25 06/08/25 Eva Nunez Water Softener Servicer 04/05/24 07/06/24 [facility] 05/11/24 11/17/24 [facility] 11/14/24 01/17/25 [email or web address] 12/08/24 [facility] 05/18/25 documented as of this encounter
--- OUTSIDE RECORDS SUMMARY | 2025-10-01 11:24 | XMS_ITS | Encounter Summary ---
Author Organization [employer] Address [address] [facility] 7t [place] [address] Care Team Providers Care Rotary Filter Operator Name Role Phone Umm Coley MD Primary Care Provider + West Meier RN Unavailable [phone] West Meier RN Unavailable [phone] Shannan Covington Unavailable Reason for Visit * Reason Onset Date Comments Appointment 02/24/2023 Encounter Details Date Type Department Care Team (Late st Contact Info) Description 02/24/2023 Telephone [facility] ADULT DENTAL 230 [place] [address] Johnny Gonzalez, WILIAN [address] [place], [place] [phone] Appointment Social History Tobacco Use Types Packs/Day [...] Description 10/13/2025 11:45 AM EST Office Visit [facility] MEDICINE 230 [place] [address] Darrell Myers MD 230 [place] [address] 11/21/2025 1:00 PM EST Office Visit [facility] OPTOMETRY 267 [place] [address] Uyen Patterson, OD 230 [place] [address] documented as of this encounter Visit Diagnoses Not on filedocumented in this encounter Care Teams Rotary Filter Operator Relationship Specialty Start Date End Date Umm Coley MD 230 [place] [address] PCP - General Family Medicine 10/31/16 West Meier RN 505 [place] [address] Staff WriterPolishing Machine Tender 01/12/25 04/25/25 West Meier RN 505 [place] [address] Registered Nurse Family Medicine 05/10/25 Shannan Covington 06/08/25 06/08/25 Eva Nunez Staff Writer 04/05/24 07/06/24 [facility] 05/11/24 11/17/24 [facility] 11/14/24 01/17/25 [employer] Traveller 12/08/24 [facility] 05/18/25 documented as of this encounter
--- OUTSIDE RECORDS SUMMARY | 2025-10-01 11:24 | XMS_ITS | Encounter Summary ---
Author Organization [employer] Address [address] [facility] 7t [place] [address] Care Team Providers Care Rn Registry Name Role Phone Umm Coley MD Primary Care Provider + West Meier RN Unavailable [phone] Wets Meier RN Unavailable [phone] Shannan Covington Unavailable Reason for Visit * Reason Comments Med Change Request Encounter Details Date Type Department Care Team (Late st Contact Info) Description 03/20/2023 Refill [facility] ADULT DENTAL 230 [place] [address] Johnny Gonzalez DMD 505 [place], [place] [phone] Social History Tobacco Use Types Packs/Day Years [...] 10/13/2025 11:45 AM EST Office Visit [facility] MEDICINE 230 [place] [address] Darrell Myers MD 230 [place] [address] 11/21/2025 1:00 PM EST Office Visit [facility] OPTOMETRY [address] [place] [address] Uyen Patterson, OD 230 [place] [address] documented as of this encounter Visit Diagnoses Not on filedocumented in this encounter Care Teams Rn Registry Relationship Specialty Start Date End Date Umm Coley MD 230 [place] [address] PCP - General Family Medicine 10/31/16 West Meier, RN 505 [place] [address] Director Oracle RetailAuto Body Worker 01/12/25 04/25/25 West Meier, RN 505 [place] [address] Registered Nurse Family Medicine 05/10/25 Shannan Covington 06/08/25 06/08/25 Eva Nunez Director [employer] Retail 04/05/24 07/06/24 [facility] 05/11/24 11/17/24 [facility] 11/14/24 01/17/25 [employer] 12/08/24 [facility] 05/18/25 documented as of this encounter
--- OUTSIDE RECORDS SUMMARY | 2025-10-01 11:24 | XMS_ITS | Encounter Summary ---
Author Organization [employer] Address [address] [place] [address] 7t [place] [address] Care Team Providers Care Greige Goods Marker Name Role Phone Umm Coley MD Primary Care Provider + West Meier RN Unavailable [phone] West Meier RN Unavailable [phone] Shannan Covington Unavailable Encounter Details Date Type Department Care Team (Late st Contact Info) Description 03/05/2023 Orders Only [facility] MEDICINE 230 [place], [place] [phone] Umm Coley MD 230 [place], [place] [phone] Social History Tobacco Use Types Packs/Day Years [...] Description 10/13/2025 11:45 AM EST Office Visit [facility] MEDICINE 230 [place] [address] Darrell Myers MD 230 [place] [address] 11/21/2025 1:00 PM EST Office Visit [facility] OPTOMETRY 267 [place] [address] Uyen Patterson, OD 230 [place] [address] documented as of this encounter Visit Diagnoses Not on filedocumented in this encounter Care Teams Greige Goods Marker Relationship Specialty Start Date End Date Umm Coley MD 230 [place] [address] PCP - General Family Medicine 10/31/16 West Meier RN 505 [place] [address] Assistant CoachMold Engraver 01/12/25 04/25/25 West Meier RN 505 [place] [address] Registered Nurse Family Medicine 05/10/25 Shannan Covington 06/08/25 06/08/25 Eva Nunez Assistant Coach 04/05/24 07/06/24 [facility] 05/11/24 11/17/24 [facility] 11/14/24 01/17/25 [employer] Concierge 12/08/24 [facility] 05/18/25 documented as of this encounter
--- OUTSIDE RECORDS SUMMARY | 2025-10-01 11:24 | XMS_ITS | Encounter Summary ---
Author Organization [employer] Address [address] [place] [address] 7t [place] [address] Care Team Providers Care Smoke Chaser Name Role Phone Umm Coley MD Primary Care Provider + West Meier RN Unavailable [phone] West Meier RN Unavailable [phone] Shannan Covington Unavailable Reason for Visit * Reason Comments Med Refill Encounter Details Date Type Department Care Team (Late st Contact Info) Description 05/21/2023 Refill [facility] MEDICINE 230 [place], [place] [phone] Umm Coley MD 230 [place], [place] [phone] Arthritis of knee Social History Tobacco Use [...] Visit [facility] MEDICINE 230 [place] [address] Darrell Myers MD 230 [place] [address] 11/21/2025 1:00 PM EST Office Visit [facility] OPTOMETRY [address] [place] [address] Leonardo, Uyen, OD 230 [place] [address] documented as of this encounter Visit Diagnoses Diagnosis Arthritis of knee Unspecified arthropathy, lower leg documented in this encounter Additional Health Concerns Assessment Noted Time PHQ-9 Depression Total Score: 12 023 1:58 PM EDT documented as of this encounter Care Teams Smoke Chaser Relationship Specialty Start Date End Date Umm Coley MD 230 [place] [address] PCP - General Family Medicine 10/31/16 West Meier, RN 505 [place] [address] Scientist/EngineerBench Machine Operator 01/12/25 04/25/25 West Meier, RN 505 [place] [address] Registered Nurse Family Medicine 05/10/25 Shannan Covington 06/08/25 06/08/25 Eva Nunez Scientist/Engineer 04/05/24 07/06/24 [facility] 05/11/24 11/17/24 [facility] 11/14/24 01/17/25 [employer] 12/08/24 [facility] 05/18/25 documented as of this encounter
--- OUTSIDE RECORDS SUMMARY | 2025-10-01 11:24 | XMS_ITS | Encounter Summary ---
Author Organization [employer] Address [address] [facility] 7t [place] [address] Care Team Providers Care Electronic Imaging System Operator Name Role Phone Umm Coley MD Primary Care Provider + West Meier RN Unavailable [phone] West Meier RN Unavailable [phone] Shannan Covington Unavailable Reason for Visit * Reason Comments Med Change Request Encounter Details Date Type Department Care Team (Late st Contact Info) Description 03/20/2023 Refill [facility] ADULT DENTAL 230 [place] [address] Johnny Gonzalez DMD 505 [place], [place] [phone] Social History Tobacco Use Types Packs/Day Years [...] 11:45 AM EST Office Visit [facility] MEDICINE 230 [place] [address] Darrell Myers MD 230 [place] [address] 11/21/2025 1:00 PM EST Office Visit [facility] OPTOMETRY [address] [place] [address] Uyen Patterson, OD 230 [place] [address] documented as of this encounter Visit Diagnoses Not on filedocumented in this encounter Care Teams Electronic Imaging System Operator Relationship Specialty Start Date End Date Umm Coley MD 230 [place] [address] PCP - General Family Medicine 10/31/16 West Meier, RN 505 [place] [address] Aquarium SpecialistSkip Miner 01/12/25 04/25/25 West Meier, RN 505 [place] [address] Registered Nurse Family Medicine 05/10/25 Shannan Covington 06/08/25 06/08/25 Eva Nunez Aquarium Specialist 04/05/24 07/06/24 [facility] 05/11/24 11/17/24 [facility] 11/14/24 01/17/25 [employer] 12/08/24 [facility] 05/18/25 documented as of this encounter
--- OUTSIDE RECORDS SUMMARY | 2025-10-01 11:24 | XMS_ITS | Encounter Summary ---
Author Organization [employer] [facility] Address [address] [place] [address] 7t [place] [address] Care Team Providers Care Child Day Care Provider Name Role Phone Umm Coley MD Primary Care Provider + West Meier RN Unavailable [phone] West Meier RN Unavailable [phone] Shannan Covington Unavailable Reason for Visit * Reason Comments Med Refill Encounter Details Date Type Department Care Team (Late st Contact Info) Description 06/10/2023 Refill [facility] MEDICINE [address] [place], [place] [phone] Yenny Morris MD [address] [place], [place] [phone] Rash Social History Tobacco Use Types Packs/Day [...] 11:45 AM EST Office Visit [facility] MEDICINE [address] [place] [address] Darrell Myers MD [address] [place] [address] 11/21/2025 1:00 PM EST Office Visit [facility] OPTOMETRY [address] [place] [address] Leonardo, Uyen, OD [address] [place] [address] documented as of this encounter Visit Diagnoses Diagnosis Rash Rash and other nonspecific skin eruption documented in this encounter Additional Health Concerns Assessment Noted Time PHQ-9 Depression Total Score: 12 023 1:58 PM EDT documented as of this encounter Care Teams Child Day Care Provider Relationship Specialty Start Date End Date Umm Coley MD [address] [place], [place] [phone] PCP - General Family Medicine 10/31/16 West Meier, RN [address] [place] [address] Solar Field Installation Crew MemberThaw Shed Heater Tender 01/12/25 04/25/25 West Meier, RN [address] [place] [address] Registered Nurse Family Medicine 05/10/25 Shannan Covington 06/08/25 06/08/25 Eva Nunez Solar Field Installation Crew Member 04/05/24 07/06/24 [facility] 05/11/24 11/17/24 [facility] 11/14/24 01/17/25 [employer] 12/08/24 [facility] 05/18/25 documented as of this encounter
--- OUTSIDE RECORDS SUMMARY | 2025-10-01 11:24 | XMS_ITS | Encounter Summary ---
Author Organization [employer] [facility] Address [address] [place] [address] 7t [place] [address] Care Team Providers Care Covering Machine Operator Helper Name Role Phone Umm Coley MD Primary Care Provider + West Meier RN Unavailable [phone] West Meier RN Unavailable [phone] Shannan Covington Unavailable Reason for Visit * Reason Comments Med Refill Encounter Details Date Type Department Care Team (Late st Contact Info) Description 02/05/2023 Refill [facility] MEDICINE [address] [place], [place] [phone] Umm Coley MD [address] [place], [place] [phone] Arthritis of knee Social History Tobacco Use [...] [facility] [address] [place] [address] Darrell Myers MD [address] [place] [address] 11/21/2025 1:00 PM EST Office Visit [facility] OPTOMETRY [address] [place] [address] Uyen Patterson, OD [address] [place] [address] documented as of this encounter Visit Diagnoses Diagnosis Arthritis of knee Unspecified arthropathy, lower leg documented in this encounter Care Teams Covering Machine Operator Helper Relationship Specialty Start Date End Date Umm Coley MD [address] [place] [address] PCP - General Family Medicine 10/31/16 West Meier RN [address] [place] [address] Voltmeter OperatorForeman Or Supervisor And Operator 01/12/25 04/25/25 West Meier RN [address] [place] [address] Registered Nurse Family Medicine 05/10/25 Shannan Covington 06/08/25 06/08/25 Eva Nunez Voltmeter Operator 04/05/24 07/06/24 [facility] 05/11/24 11/17/24 [facility] 11/14/24 01/17/25 [email or web address] 12/08/24 [facility] 05/18/25 documented as of this encounter
--- OUTSIDE RECORDS SUMMARY | 2025-10-01 11:24 | XMS_ITS | Encounter Summary ---
Author Organization [employer] Address [address] [facility] 7t [place] [address] Care Team Providers Care Line Ordering Clinician Name Role Phone Umm Coley MD Primary Care Provider + West Meier RN Unavailable [phone] [place] Meier RN Unavailable [phone] Shannan Covington Unavailable Reason for Visit * Reason Onset Date Comments Appointment 03/17/2023 Encounter Details Date Type Department Care Team (Late st Contact Info) Description 03/17/2023 Telephone [facility] ADULT DENTAL [address] [place] [address] Johnny Gonzalez, WILIAN [address] [place], [place] [phone] Appointment Social History Tobacco Use Types Packs/Day [...] [facility] [address] [place] [address] Darrell Myers MD [address] [place] [address] 11/21/2025 1:00 PM EST Office Visit [facility] OPTOMETRY [address] [place] [address] Uyen Patterson, OD [address] [place] [address] documented as of this encounter Visit Diagnoses Not on filedocumented in this encounter Care Teams Line Ordering Clinician Relationship Specialty Start Date End Date Umm Coley MD [address] [place] [address] PCP - General Family Medicine 10/31/16 West Meier RN [address] [place] [address] Watershed TenderCircuit Rider 01/12/25 04/25/25 [place] RN [address] [facility] [place] [address] Registered Nurse Family Medicine 05/10/25 Shannan Covington 06/08/25 06/08/25 Eva Nunez Watershed Tender 04/05/24 07/06/24 [facility] 05/11/24 11/17/24 [facility] 11/14/24 01/17/25 [employer] 12/08/24 [facility] 05/18/25 documented as of this encounter
--- OUTSIDE RECORDS SUMMARY | 2025-10-01 11:24 | XMS_ITS | Encounter Summary ---
Author Organization [employer] Address [address] [facility] [address]t [place] [address] Care Team Providers Care Manager Talent Acquisition Name Role Phone Umm Coley MD Primary Care Provider + West Meier RN Unavailable [phone] West Meier RN Unavailable [phone] Shannan Covington Unavailable Encounter Details Date Type Department Care Team (Late st Contact Info) Description 08/23/2024 Orders Only [facility] ADULT DENTAL [address] [place], [place] [phone] Johnny Gonzalez, WILIAN [address] [place], [place] [phone] Social History Tobacco Use Types Packs/Day Years [...] 11:45 AM EST Office Visit [facility] MEDICINE [address] [place] [address] Darrell Myers MD [address] [place] [address] 11/21/2025 1:00 PM EST Office Visit [facility] OPTOMETRY [address] [place] [address] Leonardo, Uyen, OD [address] [place] [address] documented as of this encounter Visit Diagnoses Not on filedocumented in this encounter Additional Health Concerns Assessment Noted Time PHQ-9 Depression Total Score: 10 024 9:17 AM EDT documented as of this encounter Care Teams Manager Talent Acquisition Relationship Specialty Start Date End Date Umm Coley MD [address] [place] [address] PCP - General Family Medicine 10/31/16 West Meier RN [address] [place] [address] Explosive Operator FusePatrol Inspector 01/12/25 04/25/25 West Meier, RN [address] [facility] [place] [address] Registered Nurse Family Medicine 05/10/25 Shannan Covington 06/08/25 06/08/25 [facility] 05/11/24 11/17/24 [facility] 11/14/24 01/17/25 [employer] 12/08/24 [facility] 05/18/25 documented as of this encounter
--- OUTSIDE RECORDS SUMMARY | 2025-10-01 11:24 | XMS_ITS | Encounter Summary ---
Author Organization [employer] Address [address] [facility] 7t [place] [address] Care Team Providers Care Frit Maker Name Role Phone Umm Coley MD Primary Care Provider + West Meier RN Unavailable [phone] Encounter Details Date Type Department Care Team ([facility] st Contact Info) Description 09/25/2025 Telephone [facility] MEDICINE [address] [place], [place] [phone] Umm Coley MD 230 [place], [place] [phone] Social History Tobacco Use Types Packs/Day Years [...] 10/13/2025 11:45 AM EST Office Visit [facility] MEDICINE [address] [place] [address] Darrell Myers MD [address] [place] [address] 11/21/2025 1:00 PM EST Office Visit [facility] OPTOMETRY [address] [place] [address] Uyen Patterson, OD [address] [place] [address] documented as of this encounter Visit Diagnoses Not on filedocumented in this encounter Additional Health Concerns Assessment Noted Time PHQ-9 Depression Total Score: 18 025 11:25 AM EST documented as of this encounter Care Teams Frit Maker Relationship Specialty Start Date End Date Umm Coley MD [address] [place] [address] PCP - General Family Medicine 10/31/16 West Meier, BEBA [address] [place] [address] Registered Nurse Family Medicine 05/10/25 [facility] 05/18/25 documented as of this encounter
[2025-10-01 11:48] VITALS: BP 121/64; PULSE 93; RESP 18; TEMP 36.4; O2SAT 97
--- NOTE | 2025-10-01 13:54 | ED.ABDPAIN ---
HPI - Abdominal Pain General Chief Complaint: Abdominal Pain Stated Complaint: N/V (CMED UNREADABLE) Time Seen by Provider: 10/01/25 10:20 History of Present Illness ED Provider: Sandi Overton NP HPI narrative: 60-year-old female with medical history significant for IBS, GERD, ileus, osteoporosis, fibromyalgia, anemia, reactive airway disease, asthma vertigo, migraine headaches, presents to the ED for evaluation reporting right-sided flank pain with radiation into the right groin and lower abdomen. Patient reports waking up with this pain earlier today, now experiencing difficulty with voiding, and lower suprapubic abdominal pressure. Patient presented to the ED actively vomiting in the triage area and was given sublingual Zofran with good effect. Describes the pain as sharp and shooting. Endorsing subjective fever and chills at home. No dysuria, hematuria, urgency or frequency. No upper abdominal pain. Does endorse nausea, vomiting, without diarrhea or constipation. No chest pain, shortness of breath. No known sick contacts. She was most recently seen by Gastroenterology on 08/09/25. Related Data Home Medications ?Medication ?Instructions ?Recorded ?Confirmed buspirone 15 mg tablet 15 mg PO TID 11/08/20 08/24/25 olanzapine 20 mg tablet 20 mg PO BEDTIME 11/08/20 08/24/25 prazosin 2 mg capsule 4 mg PO BEDTIME 11/08/20 08/24/25 sertraline 100 mg tablet 200 mg PO DAILY 11/08/20 08/24/25 loratadine 10 mg tablet 10 mg PO DAILY 07/16/21 08/24/25 cyanocobalamin (vitamin B-12) 100 100 mcg PO DAILY 05/29/22 08/24/25 mcg tablet cholecalciferol (vitamin D3) 50 50 mcg PO DAILY 07/01/22 08/24/25 mcg (2,000 unit) capsule amitriptyline 100 mg tablet 100 mg PO BEDTIME 10/22/22 08/24/25 meclizine 25 mg tablet 25 mg PO .COMPLEX 03/23/24 08/24/25 hydroxyzine HCl 25 mg tablet 25 mg PO BEDTIME PRN insomnia 02/16/25 08/24/25 polyvinyl alcohol-povidone 0.5 drp ophthalmic (eye) 02/16/25 08/24/25 %-0.6 % eye drops (Clear Eyes Natural Tears) amlodipine 2.5 mg tablet 2.5 mg PO DAILY 05/15/25 08/24/25 famotidine 40 mg tablet 40 mg PO DAILY 05/15/25 08/24/25 fluticasone propionate 115 2 puff inhalation BID 05/15/25 08/24/25 mcg-salmeterol 21 mcg/actuation HFA inhaler (Advair HFA) mirtazapine 30 mg tablet 30 mg PO BEDTIME 07/18/25 08/24/25 Previous Rx's ?Medication ?Instructions ?Recorded clonazepam 0.5 mg tablet 0.5 mg PO BEDTIME #1 tab 03/02/24 clonazepam 1 mg tablet 1 mg PO DAILY #1 tab 03/02/24 walker #1 ea 03/02/24 galcanezumab-gnlm 120 mg/mL 240 mg (2 mL) subcut ONCE 30 days 06/13/24 subcutaneous pen injector #2 mL (Emgality Pen) albuterol sulfate 90 mcg/actuation 2 puff inhalation Q6H PRN for 07/14/24 aerosol inhaler wheezing 30 days #8.5 ea budesonide-formoterol HFA 160 2 puff inhalation BID #10.2 grams 11/04/24 mcg-4.5 mcg/actuation aerosol inhaler (Symbicort) psyllium husk 0.4 gram capsule 0.4 g PO BID #180 caps 11/07/24 sennosides 8.6 mg tablet (senna) 17.2 mg (2 x 8.6 mg) PO BEDTIME 12/14/24 Held on 03/17/25. PRN Constipation 90 days #90 tabs Instructions: Doctor's Order acetaminophen 325 mg tablet 325 mg PO QID PRN pain #28 tabs 12/23/24 (Tylenol) naproxen 500 mg tablet 500 mg PO BID PRN pain 7 days #28 12/23/24 tabs ibuprofen 600 mg tablet 600 mg PO Q6-8H PRN pain #20 tabs 01/02/25 docusate sodium 100 mg capsule 100 mg PO BID PRN for constipation 01/12/25 Held on 03/17/25. #180 caps Instructions: Doctor's Order melatonin 5 mg tablet 10 mg (2 x 5 mg) PO BEDTIME Sleep 02/17/25 30 days #60 tabs omeprazole 20 mg capsule,delayed 20 mg PO DAILY #90 caps 03/17/25 release pregabalin 150 mg capsule 150 mg PO BID 30 days #60 caps 06/07/25 dicyclomine 20 mg tablet 40 mg (2 x 20 mg) PO QID #240 tabs 08/01/25 meloxicam 15 mg tablet 15 mg PO DAILY 30 days #30 tabs 08/10/25 sumatriptan succinate 100 mg tablet 100 mg PO .COMPLEX PRN migraine 08/24/25 headache 30 days #12 tabs ferrous sulfate 325 mg (65 mg 325 mg PO QWEEK 90 days #36 tabs 09/06/25 iron) tablet ascorbic acid (vitamin C) 250 mg 500 mg (2 x 250 mg) PO QWEEK 90 09/11/25 chewable tablet days #26 tabs ropinirole 0.25 mg tablet 0.5 mg (2 x 0.25 mg) PO TID #180 09/15/25 tabs cefpodoxime 200 mg tablet 200 mg PO Q12H 7 days #14 tabs 10/01/25 ondansetron 4 mg disintegrating 4 mg PO Q8H PRN nausea and 10/01/25 tablet vomiting #14 tabs prednisone 20 mg tablet 20 mg PO DAILY 7 days #7 tabs 10/01/25 tamsulosin 0.4 mg capsule (Flomax) 0.4 mg PO DAILY 7 days #7 caps 10/01/25 Allergies Allergy/AdvReac Type Severity Reaction Status Date / Time codeine (CODEINE) Allergy Intermediate DIZZY/NAUSEA, Verified 10/01/25 10:07 nausea/vomiting escitalopram (From LEXAPRO) Allergy Intermediate ? NAUSEA Verified 10/01/25 10:07 meperidine (MEPERIDINE) Allergy Intermediate NAUSEA Verified 10/01/25 10:07 morphine (MORPHINE) Allergy Intermediate PALPITATIONS, Verified 10/01/25 10:07 palpitation oxycodone (OXYCODONE) Allergy Intermediate PALPATATIONS, Verified 10/01/25 10:07 palpitations tramadol Allergy Unknown dizziness, Verified 10/01/25 10:07 nausea Review of Systems Review of Systems ROS is otherwise negative unless mentioned in HPI. [facility] Past Medical History Medical History (Updated 10/01/25 @ 16:52 by Sandi Bonica, [employer]END[employer]-BC) History of obstruction of large intestine Epigastric pain Right flank pain Migraine Paresthesia of skin Tension headache MCI (mild cognitive impairment) Peripheral neuropathy Breast cancer Primary osteoarthritis of right hand Right shoulder pain Rotator cuff tendinitis Arthritis of right shoulder region Right hand pain Breast cancer, right Status post radiation therapy Anemia Diarrhea Depression Somatization disorder Migraine equivalent syndrome Anxiety Periodontal disease Fibromyalgia Surgical History H/O hand surgery History of esophagogastroduodenoscopy (EGD) History of lumpectomy Hx of section Hx of shoulder surgery Hx of colonoscopy Family History Family History Mother HTN (hypertension) Sister Breast cancer Bone cancer Colon polyps Sister Osteoporosis Hypercholesteremia Colon polyps Social History Social History Household Members: None Housing: Apartment Are you a primary hearing care practitioner to a significant other at home: No Do you presently have visiting nurse or other home services: No Alcohol intake: never Patient Tobacco Use Status: Former Tobacco user Years Smoked: 3 Smoked in Last 30 Days: No Use of substances other than those prescribed or required for medical reasons: No Advance Directives: No Advance Directives Information Provided: Yes Patient : No service: No Current occupational status: disabled 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 Constitutional: Well-appearing, NAD. Alert. Oriented X3. Eyes: EOMI. ENT: Pharynx normal. Neck: Normal inspection. Neck supple. CVS: Normal heart rate and rhythm. Pulses normal. Respiratory: No respiratory distress. Breath sounds normal. Abdomen: Soft and nontender, nondistended. +BSx4. No CVA tenderness bilaterally. Skin: Skin warm and dry. Normal skin color. Extremities: No lower extremity edema. Neuro: Oriented X 3. No motor deficit. Vital Signs: Vital Signs - 24 hr 10/01/25 10:00 10/01/25 11:48 10/01/25 16:36 Temperature 97.3 F 97.5 F 98.3 F Pulse Rate 88 93 96 Respiratory Rate 22 H 18 16 Blood Pressure 157/82 H 121/64 109/51 L Pulse Oximetry 100 97 95 Oxygen Delivery Method Room Air Room Air Room Air BMI result Body Mass Index 19.9 Medical Decision Making Medical Decision Making [facility] Narrative: Overall on my assessment she does appear well. cattle sorter services utilized. She answers questions appropriately. Reports history of a kidney stone, on the right side. No urinary complaints, though did previously endorsed difficulty with urinating. Upon my assessment, her urinalysis has returned, yielding only small leukocytes, minimal white blood cells, and only 1+ bacteria. Currently pending CT imaging of the abdomen and pelvis without contrast dye. Her BMP shows a creatinine level that is reassuring at 0.88, we will add on CBC and reassess. She was offered pain medication but declined. 1500--the CT scan of her abdomen and pelvis reveals evidence of a 6 mm stone at the right UVJ causing [id number] hydro. She has no leukocytosis however I received a call from the lab about bandemia to 13. We will add on lactic acid, as well as obtain blood cultures, administer empiric antibiotics Rocephin despite the not overly indicative urinalysis. We will also send urine culture. We will also speak with Urology. She is now complaining of worsening pain, 05/11. I have ordered a dose of Toradol. 1540-- lactic acid level is flat. I was able to speak with Urology Dr. Lino about this patient's case: we will plan to p.o. trial, if she tolerates this we will discharge home with oral prednisone, Flomax x 7 days, and f/u in office. Pending PO trial. 1645-- patient is tolerating p.o., agreeable to discharge plan. I will have her follow up outpatient with Urology. Clinically I am not concerned for sepsis. Blood and urine cultures were sent which will be followed. If abnormal will contact patient to return to the ED. Provided return precautions to the ED. She is agreeable. Differential Diagnosis Differential Diagnoses: The differential diagnosis associated with the presentation includes Renal stone, pyelonephritis, cystitis, diverticulitis, colitis, gastroenteritis Admission/Observation Consideration of admission/observation: Escalation of care including admission/observation considered (Not indicated) Consult Healthcare Provider Management of the patient was discussed with: [facility] (Urology) Lab Data [facility] Lab Attestation statement: I reviewed the patient's lab results. (Flat lactic acid level, no leukocytosis, bandemia 213, electrolytes and cr reassuring, urinalysis not overly indicative of infection.) 10/01/25 14:16 10/01/25 10:32 Labs: Lab Results 10/01/25 10/01/25 10/01/25 Range/Units 10:32 14:16 15:13 WBC 9.8 (4.8-10.8) X10*3/uL RBC 3.37 L D (4.20-5.50) X10*6/uL Hgb 10.6 L (12.0-16.0) g/dl Hct 30.9 L D (37.0-47.0) % MCV 91.7 (80.0-98.0) fL MCH 31.5 (27.0-33.0) pg MCHC 34.3 (31.0-35.0) g/dl RDW 13.2 (11.0-16.0) % Plt Count 213 (160-400) X10*3/uL MPV 8.8 L (9.4-12.3) fL Immature Gran % (Auto) Cancelled Neut % (Auto) Cancelled Lymph % (Auto) Cancelled [place] % (Auto) Cancelled Eos % (Auto) Cancelled Baso % (Auto) Cancelled Lymph # (Auto) Cancelled [place] # (Auto) Cancelled Eos # (Auto) Cancelled Baso # (Auto) Cancelled Abs Immat Gran (auto) Cancelled Absolute Neuts (auto) Cancelled Absolute Nucleated RBC 0.000 (0.0-0.012) X10*3/uL Nucleated RBC % (auto) 0.0 (0.0-0.2) /100WBC Neutrophils % (Manual) 82 H (45-73) % Band Neutrophils % 13 H (3-5) % Lymphocytes % (Manual) 3 L (20-40) % Monocytes % (Manual) 2 (2-11) % Abs Neuts (Manual) 9.3 H (2.0-8.3) X10*3/uL Lymphocytes # (Manual) 0.3 L (1.2-4.9) X10*3/uL Monocytes # (Manual) 0.2 (0.1-1.2) X10*3/uL Toxic Granulation PRESENT Toxic Vacuolation PRESENT Platelet Estimate NORMAL (NORMAL) Plt Morphology Comment NORMAL RBC Morphology NORMAL Sodium 144 (135-145) mmol/L Potassium 3.5 (3.3-5.1) mmol/L Chloride 110 H (96-108) mmol/L Carbon Dioxide 21 L (22-29) mmol/L Anion Gap 17 (12-20) BUN 18 H (9-16) mg/dL Creatinine 0.88 (0.5-1.4) mg/dL Estim Creat Clear Calc 51.7 Estimated GFR > 60 Random Glucose 100 (60-115) mg/dL Lactic Acid 1.3 (0.5-2.0) mmol/L Calcium 9.7 (8.4-10.2) mg/dL Total Bilirubin 0.3 (0.0-1.0) mg/dL Direct Bilirubin 0.1 (0.0-0.5) mg/dL AST 25 (5-31) U/L ALT 12 (0-31) U/L Alkaline Phosphatase 119 H (39-117) U/L Total Protein 7.1 (6.5-8.0) g/dL Albumin 4.8 (3.5-5.0) g/dL Lipase 29 (8-78) U/L Urine Color Yellow Urine Appearance Cloudy Urine pH 8.0 (5.0-9.0) Ur Specific [place] 1.020 (1.005-1.025) Urine Protein Negative (Neg-Trace) mg/dL Urine Glucose (UA) Negative (Negative) mg/dL Urine Ketones 15 (Negative) mg/dL Urine Blood Negative (Negative) Urine Nitrite Negative (Negative) Ur Leukocyte Esterase Small (1+) H (Negative) Urine RBC 0-2 (0-2) /HPF Urine WBC 6-10 (0-5) /HPF Ur Squamous Epith Cells 0-2 (0-2) /HPF Urine Bacteria 1+ (None Seen) Hyaline Casts 0-2 (0-2) /LPF Radiology Impression Discussion of test interpretation with radiology: I have reviewed the radiologist's reading. Radiologist Impression: CT Abdomen/Pelvis WO IMPRESSION: 6 mm calculus at the right ureterovesical junction causing [id number] hydronephrosis. Independent Historian Clinical information obtained from an independent historian. History obtained from or confirmed by: Friend External Record Review External record reviewed: Office record (gastroenterology) Prescription Management None Chronic Conditions Patient?s care impacted by: Other (Anemia, IBS) Social Determinants Patient?s care significantly limited by Social Determinants of Health including: Problems related to primary support group Medications Administered Discontinued Medications Generic Name Dose Route Start Last Admin Trade Name Maikel PRN Reason Stop Dose Admin Sodium Chloride 1,000 mls @ 999 mls/hr 10/01/25 13:27 10/01/25 14:36 Ns IV 10/01/25 14:27 Infused .Q1H1M ONE Infusion Ceftriaxone Sodium 1 gm/ 50 mls @ 100 mls/hr 10/01/25 15:04 10/01/25 15:45 Sodium Chloride IV 10/01/25 15:33 Infused ONCE ONE Infusion Ketorolac Tromethamine 15 mg 10/01/25 15:12 10/01/25 15:15 Ketorolac Tromethamine 15 Mg/Ml Vial IVPUSH 10/01/25 15:13 15 mg ONCE ONE Administration Ondansetron HCl 4 mg 10/01/25 10:08 10/01/25 10:12 Ondansetron Odt 4 Mg Tab.Rapdis TRANSLINGU 10/01/25 10:09 4 mg ONCE ONE Administration Discharge Plan Discharge Clinical Impression: Kidney stone Hydronephrosis Qualifiers: Hydronephrosis type: other Qualified Code(s): N13.39 - Other hydronephrosis Patient Disposition: Home, Self-Care Instructions: Kidney Stones (ED), How to Strain Your Urine (ED), Hydronephrosis (ED) Additional Instructions: As we discussed, your CAT scan today shows evidence of a 6 mm stone at the UVJ, which is causing a little bit of kidney swelling. We discussed this with Urology, and the urology provider would like for you to receive prednisone, and Flomax. The urology nurse should call to schedule your appointment in the office by Thursday or Thursday. If you do not hear from them by Thursday, please contact the office as listed below. I have sent you a prescription for these medications, as well as an antibiotic. Please complete the full course of this antibiotics as prescribed. You may use onhp-wrw-rftbofr Tylenol, ibuprofen alternating every 4-6 hours as needed for pain. If you develop any worsening complaints at any time, please return back to the ED for reassessment. Prescriptions: New tamsulosin [Flomax] 0.4 mg capsule 0.4 mg PO DAILY 7 Days Qty: 7 0RF cefpodoxime 200 mg tablet 200 mg PO Q12H 7 Days Qty: 14 0RF Rx Instructions: must administer with a meal/food prednisone 20 mg tablet 20 mg PO DAILY 7 Days Qty: 7 0RF ondansetron 4 mg tablet,disintegrating 4 mg PO Q8H PRN (Reason: nausea and vomiting) Qty: 14 0RF No Action albuterol sulfate 90 mcg/actuation HFA aerosol inhaler 2 puff inhalation Q6H PRN (Reason: for wheezing) 30 Days Qty: 8.5 6RF psyllium husk 0.4 gram capsule 0.4 g PO BID Qty: 180 2RF sennosides [senna] 8.6 mg tablet 17.2 mg PO BEDTIME PRN (Reason: Constipation) 90 Days Qty: 90 6RF docusate sodium 100 mg capsule 100 mg PO BID PRN (Reason: for constipation) Qty: 180 1RF melatonin 5 mg tablet 10 mg PO BEDTIME 30 Days Qty: 60 6RF pregabalin 150 mg capsule 150 mg PO BID 30 Days Qty: 60 5RF dicyclomine 20 mg tablet 40 mg PO QID Qty: 240 3RF meloxicam 15 mg tablet 15 mg PO DAILY 30 Days Qty: 30 5RF Rx Instructions: Avoid ibuprofen and naproxen. Ok to take tylenol (acetaminophen) ferrous sulfate 325 mg (65 mg iron) tablet 325 mg PO QWEEK 90 Days Qty: 36 3RF ascorbic acid (vitamin C) 250 mg tablet,chewable 500 mg PO QWEEK 90 Days Qty: 26 3RF ropinirole 0.25 mg tablet 0.5 mg PO TID Qty: 180 3RF naproxen 500 mg tablet 500 mg PO BID PRN (Reason: pain) 7 Days Qty: 28 0RF acetaminophen [Tylenol] 325 mg tablet 325 mg PO QID PRN (Reason: pain) Qty: 28 0RF ibuprofen 600 mg tablet 600 mg PO Q6-8H PRN (Reason: pain) Qty: 20 0RF clonazepam 0.5 mg Tablet 0.5 mg PO BEDTIME Qty: 1 0RF clonazepam 1 mg Tablet 1 mg PO DAILY Qty: 1 0RF (VANCE) harriet Brizuela See Rx Instructions .Route Qty: 1 0RF Rx Instructions: As directed loratadine 10 mg tablet 10 mg PO DAILY buspirone 15 mg tablet 15 mg PO TID sertraline 100 mg tablet 200 mg PO DAILY olanzapine 20 mg tablet 20 mg PO BEDTIME prazosin 2 mg capsule 4 mg PO BEDTIME cyanocobalamin (vitamin B-12) 100 mcg tablet 100 mcg PO DAILY cholecalciferol (vitamin D3) 50 mcg (2,000 unit) capsule 50 mcg PO DAILY amitriptyline 100 mg tablet 100 mg PO BEDTIME meclizine 25 mg tablet 25 mg PO .COMPLEX Rx Instructions: 25 mg orally every 8 hours as needed; famotidine 40 mg tablet 40 mg PO DAILY amlodipine 2.5 mg tablet 2.5 mg PO DAILY fluticasone propion-salmeterol [Advair HFA] 115-21 mcg/actuation HFA aerosol inhaler 2 puff inhalation BID Emgality Pen 120 mg/mL pen injector 240 mg subcut ONCE 30 Days Qty: 2 0RF Rx Instructions: Loading dose: 120 mg subcu injection x2 in alternate sites (total 240 mg). To be followed by maintenance dose of 120 mg subcu q.month. omeprazole 20 mg capsule,delayed release(DR/EC) 20 mg PO DAILY Qty: 90 2RF budesonide-formoterol [Symbicort] 160-4.5 mcg/actuation HFA aerosol inhaler 2 puff inhalation BID Qty: 10.2 6RF Clear Eyes Natural Tears 0.5-0.6 % drops ophthalmic (eye) hydroxyzine HCl 25 mg tablet 25 mg PO BEDTIME PRN (Reason: insomnia) sumatriptan succinate 100 mg tablet 100 mg PO .COMPLEX MDD 200mg PRN (Reason: migraine headache) 30 Days Qty: 12 6RF Rx Instructions: 100 mg orally . PRN; 100 mg orally at onset of headache, may repeat in 2 hrs PRN; max 2 tabs per day or 4 tabs/week (may take with Naproxen 440mg or Tylenol 1000mg) mirtazapine 30 mg tablet 30 mg PO BEDTIME Referrals: Misha Lino MD [Physician, Urology] Umm Coley MD [Primary Care Provider, Internal Medicine] Print Language: Icelandic
[2025-10-01 14:26] LABS: Hematocrit 30.9 % (37.0-47.0); Hemoglobin 10.6 g/dl (12.0-16.0); Mean Corpuscular HGB Conc 34.3 g/dl (31.0-35.0); Mean Corpuscular Hemoglobin 31.5 pg (27.0-33.0); Mean Corpuscular Volume 91.7 fL (80.0-98.0); NRBC Abs Auto 0.000 X10*3/uL (0.0-0.012); NRBC Pct Auto 0.0 /100WBC (0.0-0.2); Platelet Count 213 X10*3/uL (160-400); Red Blood Count 3.37 X10*6/uL (4.20-5.50); White Blood Count 9.8 X10*3/uL (4.8-10.8)
[2025-10-01 15:00] LABS: Neutrophils Percent Manual 82 % (45-73)
[2025-10-01 15:03] LABS: Band Neutrophils Percent 13 % (3-5); Lymphocytes Absolute Manual 0.3 X10*3/uL (1.2-4.9); Lymphocytes Percent Manual 3 % (20-40); Monocytes Absolute Manual 0.2 X10*3/uL (0.1-1.2); Monocytes Percent Manual 2 % (2-11); Neutrophils Absolute Manual 9.3 X10*3/uL (2.0-8.3)
[2025-10-01 15:06] LABS: RBC Morphology NORMAL; Toxic Vacuolation PRESENT
[2025-10-01 15:07] LABS: Toxic Granulation PRESENT
--- NOTE | 2025-10-01 16:25 | PC.NURSE ---
attempting PO challenge w/ gonzalo & fan @ this time
[2025-10-01 16:36] VITALS: BP 109/51; PULSE 96; RESP 16; TEMP 36.8; O2SAT 95
[2025-10-01 17:24] VITALS: BP 109/51; PULSE 96; RESP 16; TEMP 36.8; O2SAT 95
== END 2025-10-01 17:37 | disposition home or self-care (01) ==
PROVIDERS: Emergency Medicine Emergency Medical Services; Nurse Practitioner; Emergency Provider Emergency Medicine Emergency Medical Services; PCP Internal Medicine
DX: N13.2 Hydronephrosis with renal and ureteral calculous obstruction (principal); D64.9 Anemia, unspecified; K58.9 Irritable bowel syndrome, unspecified; Z87.442 Personal history of urinary calculi; Z85.3 Personal history of malignant neoplasm of breast; Z79.899 Other long term (current) drug therapy
CPT/HCPCS: 36415; 74176; 80048; 80076; 81001; 83605; 83690; 85007; 85027; 87040; 87086; 87088; 87186; 96361; 96365; 96375; 99284; 99285; J0696; J1885

== ENCOUNTER → 2025-10-01 10:19 | Outpatient (BNV) | payer MEDICAID, SELFPAY | PROVIDERS: PCP Internal Medicine; Visit Provider Radiology Diagnostic Radiology | DX: N13.2 Hydronephrosis with renal and ureteral calculous obstruction (principal) | CPT/HCPCS: 74176 ==

== ENCOUNTER 2025-10-05 11:55 | Outpatient (AMB) | payer MEDICAID, SELFPAY ==
--- NOTE | 2025-10-05 12:03 | A.OFFVIS_ITS ---
Vital Signs 10/05/25 12:04 Height 5 ft 2 in Weight 112 lb BMI 20.5 Intake Visit Reasons: 8 Intake Note: Diana presents to in office follow up of constipation and abd pain. CC: Patient reports that she went to ER on 10/01 and was found to have kidney stone. Patient c/o constipation with no BM since last Thursday until this morning when she had a small BM. Bowling Ball Finisher Required: Yes Bowling Ball Finisher Language: Luxembourgish Accompanied by: Self / Same As Patient Allergies codeine (CODEINE) Allergy (Intermediate, Verified 10/05/25 12:16) DIZZY/NAUSEA, nausea/vomiting escitalopram (From LEXAPRO) Allergy (Intermediate, Verified 10/05/25 12:16) ? NAUSEA meperidine (MEPERIDINE) Allergy (Intermediate, Verified 10/05/25 12:16) NAUSEA morphine (MORPHINE) Allergy (Intermediate, Verified 10/05/25 12:16) PALPITATIONS, palpitation oxycodone (OXYCODONE) Allergy (Intermediate, Verified 10/05/25 12:16) PALPATATIONS, palpitations tramadol Allergy (Unknown, Verified 10/05/25 12:16) dizziness, nausea HPI HPI 8: Details: Assessment & Plan (1) Ileus: Code(s): K56.7 - Ileus, unspecified Category: Medical (2) GERD (gastroesophageal reflux disease): Code(s): K21.9 - Gastro-esophageal reflux disease without esophagitis Category: Medical (3) Irritable bowel syndrome with both constipation and diarrhea: Code(s): K58.2 - Mixed irritable bowel syndrome Category: Medical (4) RUQ abdominal pain: Comment: No cause found in the GI system, she thinks she has fatty liver but with normal transaminases and a recent CT showing an absolutely normal liver this is not what is causing her problem aeb Code(s): R10.11 - Right upper quadrant pain Category: Medical Plan She continues on her omeprazole and famotidine, fiber supplement, Colace, dicyclomine and senna. Unfortunately, she did not exercise personal judgment about when to advance her diet after we told her to go on clear liquids until the ileus resolves. She was also instructed to go to the ER if symptoms worsened which she did not. I explained to her in great detail in case this ever happens again that the idea is to go on clear liquids until the pain resolves and then slowly reintroduce diet as tolerated. She is quite perseverates on the fact that she feels she did not get clear instructions, but unfortunately she also called on a day when I was out of the office and got some confusing information from a colleague who is not as acquainted with her case. At this time she is not taking the senna but she is taking her fiber. Her pain has mostly resolved but she still has some lingering soreness in the right upper quadrant. I believe this will heal in time. She had another obstruction in 2022. She wants to know why this is happening to her. I tell her that we have probably can not answer that question as usually when people have this sort of problem in his a movement disorder of the colon. It can be caused by medication affects, injury to the colon from surgeries, or interruption of blood flow to the colon. We may never know the exact cause. It is important that she make sure she is moving her bowels daily and should the pain return she should go on a clear liquid diet and notify inappropriate health care provider. At this point we will get a repeat x-ray to see how well she has cleared. Return office visit in 6 weeks Orders: Orders XR abdomen w d ecubitus Today K56.7 - Ileus, unspecified XR ABDOMEN FINDINGS: Scattered air-fluid levels in the right lower abdomen. Mild prominent proximal small bowel loops. There is gas in the splenic colonic flexure. No free air beneath the diaphragm. Vascular clips overlapping the right lower thorax probably in the breast. XR/XR abdomen min 2V IMPRESSION: Ileus versus partial/intermittent distal bowel obstruction. No acute intra-abdominal process should be considered. Electronically signed by: Steven Coreas MD 08/16/2025 11:31 AM EDT Dictated By: Steven Gan MD Signed By: <Electronically signed by Steven Miles MD in OV> 08/16/25 CT A BD AND PELVIS 09/2025 Findings: No consolidation or effusion. 6 mm calculus at the right ureterovesical junction causing [id number] hydronephrosis of the right kidney. There are several calcified granulomas within the spleen. The liver, pancreas and adrenal glands are unremarkable. There are no calcified gallstones. No bowel obstruction, pneumoperitoneum, or pneumatosis. Pelvic contents unremarkable. Normal appendix. No acute fracture. IMPRESSION: 6 mm calculus at the right ureterovesical junction causing ojva-ir-hbvvqwnk hydronephrosis. PFSH Medical History History of obstruction of large intestine Epigastric pain Right flank pain Migraine Paresthesia of skin Tension headache MCI (mild cognitive impairment) Peripheral neuropathy Breast cancer Primary osteoarthritis of right hand Right shoulder pain Rotator cuff tendinitis Arthritis of right shoulder region Right hand pain Breast cancer, right Status post radiation therapy Anemia Diarrhea Depression Somatization disorder Migraine equivalent syndrome Anxiety Periodontal disease Fibromyalgia Surgical History H/O hand surgery History of esophagogastroduodenoscopy (EGD) History of lumpectomy Hx of section Hx of shoulder surgery Hx of colonoscopy Family History Mother HTN (hypertension) Sister Breast cancer Bone cancer Colon polyps Sister Osteoporosis Hypercholesteremia Colon polyps Social History Household Members: None Housing: Apartment Are you a primary field care coordinator to a significant other at home: No Do you presently have visiting nurse or other home services: No Alcohol intake: never Patient Tobacco Use Status: Former Tobacco user Years Smoked: 3 service: No Current occupational status: disabled 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 We are adding Reglan at this visit. It seems that she developed a new problem in September and presented to the emergency department and was found to have a 6 mm kidney stone at the UV junction. This a course caused her quite a lot of pain and it is uncertain how much this may have been complicating are prior workup. However, it is also still apparent from her x-ray that she still is prone to having ileus. She continues to not move her bowel for many days and then have liquidy stool. I believe she has a small bowel motility disorder and this is what is causing the diarrhea when the brain is trying to pull things through a little bit faster. I think we are going to put her on a dose of Reglan 4 times a day to see if this improves her stooling and tries to keep at [place] any future possible bowel obstructions or ileus. Return office visit in 8 weeks Medications: New 2 metoclopramide HCl (Reglan) 5 mg PO QIDACHS 120 tabs 6RF K59.9 - Functional intestinal disorder, unspecified Coding Level of Care Code Est Pt Level 3 (48613) Diagnoses Small bowel motility disorder K59.9
[2025-10-05 12:04] VITALS: BMI 20.5
== END 2025-10-05 13:25 | disposition home or self-care (01) ==
LOC: HO.HGI 11:56
PROVIDERS: PCP Internal Medicine; Visit Provider Nurse Practitioner
DX: K59.9 Functional intestinal disorder, unspecified (principal)
CPT/HCPCS: 99213

== ENCOUNTER → 2025-10-05 11:55 | Outpatient (BNVA) | payer MEDICAID, SELFPAY | PROVIDERS: PCP Internal Medicine; Visit Provider Nurse Practitioner | DX: K59.9 Functional intestinal disorder, unspecified (principal) | CPT/HCPCS: 99212 ==

== ENCOUNTER 2025-10-11 12:30 | Outpatient (AMB) | payer MEDICAID, SELFPAY ==
--- NOTE | 2025-10-11 12:53 | A.OFFVIS_ITS ---
Vital Signs 10/11/25 12:54 Height 5 ft 2 in Weight 110 lb 14.28 oz BMI 20.3 BP 98/70 Blood Pressure Location Rt brachial Position Sitting Pulse 88 Pulse Source Pulse Oximeter Pulse Oximetry (%) 96 Oxygen Delivery Method Room Air Intake Visit Reasons: review results Intake Note: Patient presents today for an OA follow up left joint pain. Jewelry Mechanic Required: Yes Jewelry Mechanic Services: Jewelry Mechanic Present Jewelry Mechanic Name: allison [id number] Accompanied by: Self / Same As Patient Allergies codeine (CODEINE) Allergy (Intermediate, Verified 10/11/25 12:53) DIZZY/NAUSEA, nausea/vomiting escitalopram (From LEXAPRO) Allergy (Intermediate, Verified 10/11/25 12:53) ? 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 Left knee joint fluid resolved. She had a fall with recurrent knee swelling. She had a repeat x-ray that revealed arthritis and a fracture. I do not have results of this x-ray. She stopped taking vitamin D supplement a few months ago. REPLACED BY [facility] Medical History History of obstruction of large intestine Epigastric pain Right flank pain Migraine Paresthesia of skin Tension headache MCI (mild cognitive impairment) Peripheral neuropathy Breast cancer Primary osteoarthritis of right hand Right shoulder pain Rotator cuff tendinitis Arthritis of right shoulder region Right hand pain Breast cancer, right Status post radiation therapy Anemia Diarrhea Depression Somatization disorder Migraine equivalent syndrome Anxiety Periodontal disease Fibromyalgia Surgical History H/O hand surgery History of esophagogastroduodenoscopy (EGD) History of lumpectomy Hx of section Hx of shoulder surgery Hx of colonoscopy Family History Mother HTN (hypertension) Sister Breast cancer Bone cancer Colon polyps Sister Osteoporosis Hypercholesteremia Colon polyps Social History Household Members: None Housing: Apartment Are you a primary health care legal assistant to a significant other at home: No Do you presently have visiting nurse or other home services: No Alcohol intake: never Patient Tobacco Use Status: Former Tobacco user Years Smoked: 3 service: No Current occupational status: disabled 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 No knee effusion. Slow gait. Ambulates with cane. Assessment & Plan Assessment & Plan (1) Osteoarthritis of left knee: Comment: Uncontrolled left knee pain. Hyaluronic acid injection is indicated. We discussed euflexxa injections. She was treated by orthopedic surgery with physical therapy, and cortisone injections without benefit. Failed Tylenol, diclofenac gel and PO, ibuprofen, Celebrex and naproxen. X-rays 2020 were normal. Code(s): M17.12 - Unilateral primary osteoarthritis, left knee Category: Medical Qualifiers: Osteoarthritis type: primary Qualified Code(s): M17.12 - Unilateral primary osteoarthritis, left knee Plan: Continue to take Tylenol 500 mg 1-2 tablets with increased frequency up to 3 times a day Continue diclofenac gel 1% applied to affected area PRN She will continue to wear left hinged knee brace Euflexxa PA. Information Euflexxa given to patient. Return to clinic for euflexxa injections left knee only when approved (2) Chronic knee pain: Comment: L knee>R knee Code(s): M25.569 - Pain in unspecified knee; G89.29 - Other chronic pain Category: Medical Qualifiers: Laterality: bilateral Qualified Code(s): M25.561 - Pain in right knee; M25.562 - Pain in left knee; G89.29 - Other chronic pain Plan: See above (3) Osteoarthritis of hands, bilateral: Comment: She reports improvement in function with occupational therapy after wrist surgery but continues to have difficulty gripping her hands. Code(s): M19.041 - Primary osteoarthritis, right hand; M19.042 - Primary osteoarthritis, left hand Category: Medical Qualifiers: Osteoarthritis type: primary Qualified Code(s): M19.041 - Primary osteoarthritis, right hand; M19.042 - Primary osteoarthritis, left hand Plan: OT ordered Continue to take Tylenol 500 mg 1-2 tablets with increased frequency up to 3 times a day Continue diclofenac gel 1% applied to affected area PRN RTC 3 months (4) Osteoporosis: Comment: Fragility fracture right wrists December 2024. Patient meets criteria for diagnosis of osteoporosis with fragility fracture. Bone densities indicated. She is not on calcium and vitamin D supplement. Code(s): M81.0 - Age-related osteoporosis without current pathological fracture Category: Medical Qualifiers: Encounter type: initial encounter Osteoporosis type: age-related Presence of current pathological fracture: with current pathological fracture Qualified Code(s): M80.00XA - Age-related osteoporosis with current pathological fracture, unspecified site, initial encounter for fracture Plan: Bone density scheduled this month I will order labs at next visit after reviewing DXA with patient Return to clinic in 3 months Coding Level of Care Code Est Pt Level 4 (02464) Add On Problem Visit Only Diagnoses Primary osteoarthritis of left knee M17.12 Osteoarthritis type: primary Chronic pain of both knees M25.561; M25.562; G89.29 Laterality: bilateral Primary osteoarthritis of both hands M19.041; M19.042 Osteoarthritis type: primary Age-related osteoporosis with current pathological fracture, initial encounter M80.00XA Encounter type: initial encounter Osteoporosis type: age-related Presence of current pathological fracture: with current pathological fracture
[2025-10-11 12:54] VITALS: BP 98/70; PULSE 88; O2SAT 96; BMI 20.3
== END 2025-10-11 14:35 | disposition home or self-care (01) ==
LOC: HO.RHES 12:31
PROVIDERS: PCP Internal Medicine; Visit Provider Internal Medicine Rheumatology
DX: M17.12 Unilateral primary osteoarthritis, left knee (principal); M25.561 Pain in right knee; M25.562 Pain in left knee; G89.29 Other chronic pain; M19.041 Primary osteoarthritis, right hand; M19.042 Primary osteoarthritis, left hand; M80.00XA Age-related osteoporosis with current pathological fracture, unspecified site, initial encounter for fracture
CPT/HCPCS: 99214

== ENCOUNTER → 2025-10-11 12:30 | Outpatient (BNVA) | payer MEDICAID, SELFPAY | PROVIDERS: PCP Internal Medicine; Visit Provider Internal Medicine Rheumatology | DX: M80.80XA Other osteoporosis with current pathological fracture, unspecified site, initial encounter for fracture (principal); M79.641 Pain in right hand; M79.642 Pain in left hand; M19.041 Primary osteoarthritis, right hand; M19.042 Primary osteoarthritis, left hand; M25.561 Pain in right knee; M25.562 Pain in left knee; G89.29 Other chronic pain; Z79.899 Other long term (current) drug therapy | CPT/HCPCS: 99212 ==

== ENCOUNTER 2025-10-12 13:46 | Outpatient (AMB) | payer MEDICAID, SELFPAY ==
--- NOTE | 2025-10-12 13:31 | A.OFFVIS_ITS ---
Intake Visit Reasons: hydronephrosis/kidney stone SET UA Intake Note: New Patient is present for Kidney stones c/o Dysuria Urology Rx:Amitriptyline , VIT-C, Tamsulosin Blood Thinners:none KNDA Imaging completed: Abdominal /Pelvis CT 10/01/25 Patient Attendant Required: Yes Patient Attendant Language: Uruguayan Accompanied by: Self / Same As Patient Allergies codeine (CODEINE) Allergy (Intermediate, Verified 10/12/25 13:33) DIZZY/NAUSEA, nausea/vomiting escitalopram (From LEXAPRO) Allergy (Intermediate, Verified 10/12/25 13:33) ? NAUSEA meperidine (MEPERIDINE) Allergy (Intermediate, Verified 10/12/25 13:33) NAUSEA morphine (MORPHINE) Allergy (Intermediate, Verified 10/12/25 13:33) PALPITATIONS, palpitation oxycodone (OXYCODONE) Allergy (Intermediate, Verified 10/12/25 13:33) PALPATATIONS, palpitations tramadol Allergy (Unknown, Verified 10/12/25 13:33) dizziness, nausea HPI Comments Details: Diana is a Uruguayan-speaking female. She is a patient of Dr. Zhou. She is seen for the following urologic conditions - nephrolithiasis Uruguayan translation provided by telephone qualified medical detailist Discussed imaging findings Recommend fluid 70-80 oz a day Had 1 ounze of lemon juice Repeat imaging four-month Nephrolithiasis Initial presentation emergency room CT scan reviewed 6 mm distal right ureteric stone no other stones seen PFSH Medical History History of obstruction of large intestine Epigastric pain Right flank pain Migraine Paresthesia of skin Tension headache MCI (mild cognitive impairment) Peripheral neuropathy Breast cancer Primary osteoarthritis of right hand Right shoulder pain Rotator cuff tendinitis Arthritis of right shoulder region Right hand pain Breast cancer, right Status post radiation therapy Anemia Diarrhea Depression Somatization disorder Migraine equivalent syndrome Anxiety Periodontal disease Fibromyalgia Surgical History H/O hand surgery History of esophagogastroduodenoscopy (EGD) History of lumpectomy Hx of section Hx of shoulder surgery Hx of colonoscopy Family History Mother HTN (hypertension) Sister Breast cancer Bone cancer Colon polyps Sister Osteoporosis Hypercholesteremia Colon polyps Social History Household Members: None Housing: Apartment Are you a primary workforce investment act career manager to a significant other at home: No Do you presently have visiting nurse or other home services: No Alcohol intake: never Patient Tobacco Use Status: Former Tobacco user Years Smoked: 3 service: No Current occupational status: disabled 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 Results AMB Urinalysis, Automated UA Leukoctes 15 Haris/uL Last Edit by Monica Colon, [facility] on 10/12/25 14:05 UA Nitrite Negative Last Edit by Monica Colon, [facility] on 10/12/25 14:05 UA Urobilinogen 0.2 mg/dL Last Edit by Monica [place], [facility] on 10/12/25 14:05 UA Protein 0 mg/dL Last Edit by Monica [place], [facility] on 10/12/25 14:05 UA pH 5.0 Last Edit by Monica [place], [facility] on 10/12/25 14:05 UA Blood 0 Kenny/uL Last Edit by Monica Colon, [facility] on 10/12/25 14:05 UA Specific [place] 1.030 Last Edit by Monica Colon, [facility] on 10/12/25 14:0 5 UA Ketone Negative Last Edit by Monica Colon, [facility] on 10/12/25 14:05 UA Bilirubin 0 mg/dL Last Edit by Monica Colon, [facility] on 10/12/25 14:05 UA Glucose 0 mg/dL Last Edit by Monica Colon, [facility] on 10/12/25 14:05 Results Reviewed Results Reviewed: Laboratory Last Values Urine pH (Auto) 5.0 10/12/25 13:34 Specific [place] (Auto) 1.030 10/12/25 13:34 Urine Protein (Auto) 0 mg/dL 10/12/25 13:34 Glucose (UA)(Auto) 0 mg/dL 10/12/25 13:34 Urine Ketones (Auto) Negative 10/12/25 13:34 Urine Blood (Auto) 0 Kenny/uL 10/12/25 13:34 Urine Nitrite (Auto) Negative 10/12/25 13:34 Urine Bilirubin (Auto) 0 mg/dL 10/12/25 13:34 Urine Urobilinogen (Auto) 0.2 mg/dL 10/12/25 13:34 Leukocyte Esterase (Auto) 15 Haris/uL 10/12/25 13:34 Assessment & Plan Assessment & Plan (1) Kidney stone: Code(s): N20.0 - Calculus of kidney Category: Medical Plan Four month follow-up renal imaging Orders: Orders AMB Urinalysis Automated Today N20.0 - Calculus of kidney US renal BI 4 Months N20.0 - Calculus of kidney Patient Instructions: This note is constructed using voice recognition software. While every effort has been made to ensure accuracy sales and marketing associate errors may have been included. Imaging studies, laboratory and physical exam results were discussed and reviewed in detail. No major barriers to patient understanding were identified. An opportunity to ask questions regarding the treatment plan was provided. All questions were answered. The patient expressed understanding and agreement with the above treatment plan. The patient is aware they should contact our office by phone for worsening of their current condition or the appearance of new urologic symptoms. Compliance is encouraged with any medications and followup testing that is ordered. It is a privilege to participate in the urologic care of your patient. If you have any questions or concerns regarding treatment for the above conditions, or other urologic issues, please do not hesitate to contact me. The office telephone contact is [phone]. Sincerely, Dr Misha Lino MD, [facility] - Urology Compassionate Specialist Care for the Genitourinary System Coding Level of Care Code New Pt Level 3 (49589) Diagnoses Kidney stone N20.0
== END 2025-10-12 14:36 | disposition home or self-care (01) ==
LOC: HO.HUSH 13:47
PROVIDERS: PCP Internal Medicine; Visit Provider Urology
DX: N20.0 Calculus of kidney (principal)
CPT/HCPCS: 99203

== ENCOUNTER → 2025-10-12 13:46 | Outpatient (BNVA) | payer MEDICAID, SELFPAY | PROVIDERS: PCP Internal Medicine; Visit Provider Urology | DX: N20.0 Calculus of kidney (principal) | CPT/HCPCS: 81003; 99202 ==

== ENCOUNTER 2025-10-17 12:10 | Outpatient (AMB) | payer MEDICAID, SELFPAY ==
--- NOTE | 2025-10-17 12:47 | MHC.OFFVIS ---
Intake Visit Reasons: 4M, FM, Somatoform disorder/syncope Allergies codeine (CODEINE) Allergy (Intermediate, Verified 10/12/25 13:33) DIZZY/NAUSEA, nausea/vomiting escitalopram (From LEXAPRO) Allergy (Intermediate, Verified 10/12/25 13:33) ? NAUSEA meperidine (MEPERIDINE) Allergy (Intermediate, Verified 10/12/25 13:33) NAUSEA morphine (MORPHINE) Allergy (Intermediate, Verified 10/12/25 13:33) PALPITATIONS, palpitation oxycodone (OXYCODONE) Allergy (Intermediate, Verified 10/12/25 13:33) PALPATATIONS, palpitations tramadol Allergy (Unknown, Verified 10/12/25 13:33) dizziness, nausea Medication List - Last Reconciled 10/17/25 by Alberto Sands MD acetaminophen (Tylenol) 325 mg PO QID PRN albuterol sulfate 90 mcg/actuation 2 puffs inhalation Q6H PRN 30 days amitriptyline 100 mg PO BEDTIME amlodipine 2.5 mg PO DAILY ascorbic acid (vitamin C) 500 mg (2 x 250 mg) PO QWEEK 90 days budesonide-formoterol 160-4.5 mcg/actuation (Symbicort) 2 puffs inhalation BID buspirone 15 mg PO TID cefpodoxime 200 mg PO Q12H 7 days clonazepam 0.5 mg PO BEDTIME clonazepam 1 mg PO DAILY cyanocobalamin (vitamin B-12) 100 mcg PO DAILY dicyclomine 40 mg (2 x 20 mg) PO QID docusate sodium 100 mg PO BID PRN Held on 03/17/25. Instructions: Doctor's Order famotidine 40 mg PO DAILY ferrous sulfate 325 mg PO QWEEK 90 days fluticasone propion-salmeterol 115-21 mcg/actuation (Advair HFA) 2 puffs inhalation BID hydroxyzine HCl 25 mg PO BEDTIME PRN ibuprofen 600 mg PO Q6-8H PRN loratadine 10 mg PO DAILY meclizine 25 mg orally every 8 hours as needed; melatonin 10 mg (2 x 5 mg) PO BEDTIME 30 days meloxicam 15 mg PO DAILY 30 days metoclopramide HCl (Reglan) 5 mg PO QIDACHS mirtazapine 30 mg PO BEDTIME naproxen 500 mg PO BID PRN 7 days olanzapine 20 mg PO BEDTIME omeprazole 20 mg PO DAILY ondansetron 4 mg PO Q8H PRN polyvinyl alcohol-povidone 0.5-0.6 % (Clear Eyes Natural Tears) drps ophthalmic (eye) prazosin 4 mg PO BEDTIME prednisone 20 mg PO DAILY 7 days pregabalin 150 mg PO BID 30 days psyllium husk 0.4 grams PO BID ropinirole 0.5 mg (2 x 0.25 mg) PO TID sennosides (senna) 17.2 mg (2 x 8.6 mg) PO BEDTIME PRN 90 days Held on 03/17/25. Instructions: Doctor's Order sertraline 200 mg PO DAILY sumatriptan succinate 100 mg orally . PRN; 100 mg orally at onset of headache, may repeat in 2 hrs PRN; max 2 tabs per day or 4 tabs/week (may take with Naproxen 440mg or Tylenol 1000mg) 30 days MDD 200mg tamsulosin (Flomax) 0.4 mg PO DAILY 7 days walker As directed HPI Comments Details: 59yr old woman with fibromyalgia. Her generalized pains are under control somewhat. Feel like feet and legs they lock up and she cannot move. Using cane, no falls. Dizziness is better, using meclizine as needed. No further episodes of passing out. Headaches are okay. ?She was seen at [facility] 03[place] for dizziness and passing out twice the day before. She is unsure how long she passed out for. No tongue bite or incontinence. No witnesses. MRI brain and CT neck were normal. She felt like the room was spinning and moving up/down, worse when moving her eyes in certain directions. Also had pressure-type headache to left side of head. ?Has diffuse pains in thighs, arms, chest and pain and numbness in legs and hands. Pain worse on bottom of feet more. Has difficulty closing R hand and saw surgeon. Memory about the same. Burning pain, heat, numbness in toes and soles getting worse affects her sleep since 2018. She also has similar milder Sx in hands, with right side worse than left. She also suffers from neck pain. [facility] Medical History History of obstruction of large intestine Epigastric pain Right flank pain Migraine Paresthesia of skin Tension headache MCI (mild cognitive impairment) Peripheral neuropathy Breast cancer Primary osteoarthritis of right hand Right shoulder pain Rotator cuff tendinitis Arthritis of right shoulder region Right hand pain Breast cancer, right Status post radiation therapy Anemia Diarrhea Depression Somatization disorder Migraine equivalent syndrome Anxiety Periodontal disease Fibromyalgia Surgical History H/O hand surgery History of esophagogastroduodenoscopy (EGD) History of lumpectomy Hx of section Hx of shoulder surgery Hx of colonoscopy Family History Mother HTN (hypertension) Sister Breast cancer Bone cancer Colon polyps Sister Osteoporosis Hypercholesteremia Colon polyps Social History Household Members: None Housing: Apartment Are you a primary adult caregiver to a significant other at home: No Do you presently have visiting nurse or other home services: No Alcohol intake: never Patient Tobacco Use Status: Former Tobacco user Years Smoked: 3 service: No Current occupational status: disabled 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 Difficulty getting to sleep?admits.? Difficulty maintaining sleep?admits.? Urge to move legs?admits.? Sleepwalking?denies.? Teeth grinding?denies.? Shouting or Kicking during sleep?denies.? Abnormal behavior during sleep?denies.? Excessive sleep?denies.? Sleep paralysis?denies.? Snoring?denies.? Daytime sleepiness?denies.? ?? General/Constitutional:? Change in appetite?denies.? Chills?denies.? Fatigue?admits.? Weight gain?denies.? Weight loss?denies.? ?? Cardiovascular:? Chest pain at rest?admits.? Chest pain with exertion?denies.? Dizziness?denies.? Fluid accumulation in the legs?denies.? Irregular heartbeat?denies.? Palpitations?denies.? ?? Gastrointestinal:? Constipation?admits.? Diarrhea?denies.? Difficulty swallowing?denies.? Heartburn?denies.? Nausea?denies.? Rectal bleeding?denies.? ?? Genitourinary:? Frequent urination?denies.? Urgency?denies.? Incontinence?denies.? ?? Skin:? Dry skin?denies.? Hives?denies.? Rash?denies.? ?? Neurologic:? Difficulty swallowing?denies.? Balance difficulty?denies.? Coordination?normal.? Difficulty speaking?denies.? Dizziness?admits.? Fainting?denies.? Gait abnormality?denies.? Headache?admits.? Loss of strength?denies.? Loss of use of extremity?denies.? Low back pain?denies.? Memory loss?admits.? Seizures?denies.? Tics?denies.? Tingling/Numbness?admits.? Transient loss of vision?denies.? Tremor?denies.? ?? Psychiatric:? Anxiety?admits.? Auditory/visual hallucinations?denies.? Delusions?denies.? Depressed mood?admits.? Stressors?admits.? Substance abuse?denies.? Suicidal thoughts?denies.? ?? Physical Exam Neuro Other: General Examination: ? GENERAL APPEARANCE:?normal,?in no acute distress.? SKIN:?no rashes,?no significant birthmarks.? HEART:?S1, S2 normal,?no murmurs.? LUNGS:?clear anteriorly and posteriorly.? EXTREMITIES:?no edema.? PSYCH:?alert, oriented,?cognitive function intact,?cooperative with exam.? Neurological: ? Abnormal neurological findings:?DTRs 1+, vibration sensation absent in feet and hands. Walking with cane.? Mental Status:?Alert and awake with a flat affect.?.? Cranial Nerves:?Pupils are equal, round and reactive to light. External occular muscles are intact. Visual medina are full. Face is symmetrical. Facial sensations are normal. Tongue is midline. Palate elevates symmetrically. Shoulder shrugging is normal. Hearing to bedside conversation is normal.?.? Motor Examination:?Normal muscle tone, bulk and strength,?Deep tendon reflexes are 1+?,?Plantars are flexor?.? Sensory Exam:?Vibration sensation absent in hands and feet.?.? Coordination:?no ataxia,?no titubation.? Gait Exam:?with cane.? Extrapyramidal System:?No tremor, rigidity with normal facial expressions.? Pronator Drift:?not present?.? Involuntary Movements:?No tremors seen?.? Speech:?Normal.? Assessment & Plan Assessment & Plan (1) Fibromyalgia: Code(s): M79.7 - Fibromyalgia Category: Medical (2) Somatization disorder: Code(s): F45.0 - Somatization disorder Category: Medical (3) Syncope: Code(s): R55 - Syncope and collapse Category: Medical (4) Migraine: Code(s): G43.909 - Migraine, unspecified, not intractable, without status migrainosus Category: Medical Qualifiers: Migraine type: migraine (< 15 days per month) without aura Status migrainosus presence: without status migrainosus Intractability: not intractable Qualified Code(s): G43.009 - Migraine without aura, not intractable, without status migrainosus Plan Continue current meds. She does not have a list of updated meds, so reconciliation may not be accurate Coding Level of Care Code Est Pt Level 4 (48482) Diagnoses Fibromyalgia M79.7 Somatization disorder F45.0 Syncope R55 Migraine without aura and without status migrainosus, not intractable G43.009 Migraine type: migraine (< 15 days per month) without aura Status migrainosus presence: without status migrainosus Intractability: not intractable
== END 2025-10-17 12:54 | disposition home or self-care (01) ==
LOC: HO.HSM 12:11
PROVIDERS: PCP Internal Medicine; Visit Provider Psychiatry & Neurology Neurology
DX: M79.7 Fibromyalgia (principal); F45.0 Somatization disorder; R55 Syncope and collapse; G43.009 Migraine without aura, not intractable, without status migrainosus
CPT/HCPCS: 99214

== ENCOUNTER → 2025-10-17 12:10 | Outpatient (BNVA) | payer MEDICAID, SELFPAY | PROVIDERS: PCP Internal Medicine; Visit Provider Psychiatry & Neurology Neurology | DX: G43.009 Migraine without aura, not intractable, without status migrainosus (principal); M79.7 Fibromyalgia; F45.0 Somatization disorder | CPT/HCPCS: 99212 ==

== ENCOUNTER 2025-10-18 11:35 | Outpatient (AMB) | payer MEDICAID, SELFPAY ==
--- OUTSIDE RECORDS SUMMARY | 2025-10-13 11:45 | XMS_ITS | Encounter Summary ---
Author Organization [employer] Address [address] [place] [address] Care Team Providers Care Video Game Creator Name Role Phone Umm Coley MD Primary Care Provider + [place] Me[place] RN Unavailable [phone] Encounter Details Date Type Department Care Team (Latest Contact Info) Description 10/13/2025 11:45 AM EST Office Visit [facility] [address] [place], [place] [phone] Darrell Myers MD [address] [place], [place] [id number] Hypomelanosis (Primary Dx); Benign nevus Social History Tobacco Use Types Packs/Day Years [...] Sign Reading Time Taken Comments Blood Pressure 110/60 10/13/2025 11:57 AM EST Pulse 75 10/13/2025 11:57 AM EST Temperature 36 C (96.8 F) 10/13/2025 11:57 AM EST Respiratory Rate 20 10/13/2025 11:57 AM EST Oxygen Saturation - - Inhaled Oxygen Concentration - - Weight 52.4 kg (115 lb 9.6 oz) 10/13/2025 11:57 AM EST Height 157.5 cm (5' 2 ) 10/13/2025 11:57 AM EST Body Mass Index 21.14 10/13/2025 11:57 AM EST documented in this encounter Progress Notes * Drarell Myers MD - 10/13/2025 11:45 AM EST Subjective Patient ID: Diana Myles is a 60 y.o. female who presents for No chief complaint on file.. HPI 60 yr old woman with white spots on her upper and lower extremities for 1-2 yrs. She also has a dark spot on dorsum of R foot.No history of skin cancer Review of Systems Constitutional: Negative for diaphoresis, fatigue and fever. HENT: Negative for ear discharge, ear pain, facial swelling and hearing loss. Respiratory: Negative for cough, choking, chest tightness and shortness of breath. Cardiovascular: Negative for chest pain and leg swelling. Gastrointestinal: Negative for abdominal distention, abdominal pain and anal bleeding. Endocrine: Negative for cold intolerance and heat intolerance. Genitourinary: Negative for enuresis, flank pain and frequency. Musculoskeletal: Negative for arthralgias, back pain and gait problem. Neurological: Negative for dizziness, facial asymmetry and headaches. Psychiatric/Behavioral: Negative for agitation, behavioral problems and confusion. Objective Physical Exam Constitutional: Appearance: Normal appearance. HENT: Head: Normocephalic and atraumatic. Nose: Nose normal. Eyes: Pupils: Pupils are equal, round, and reactive to light. Pulmonary: Effort: Pulmonary effort is normal. Musculoskeletal: General: Normal range of motion. Cervical back: Normal range of motion. Skin: Comments: White macules on upper and lower extremties. No scales, no inflammation 3x3 mm dark macule on dorsum of R foot Neurological: General: No focal deficit present. Mental Status: She is alert. 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 Rxprotopic as below, if after 3 yrs no improvement stop usage. - tacrolimus (Protopic) 0.1 % ointment; Apply topically 2 times daily. Benign nevus On dorsum of R foot 3x3 mm, likely intradermal nevus, offered shave biopsy but she refused. she will come back in 6 months for follow up. If increasing rapidly in size to call back for biopsy. documented in this encounter Plan of Treatment Upcoming Encounters Date Type Department Care Team (Late st Contact Info) Description 01/16/2026 1:00 PM EDT Office Visit [facility] [address] [place] [address] Uyen Patterson, OD [address] [place] [address] documented as of this encounter Visit Diagnoses Diagnosis Hypomelanosis- Primary Other dyschromia Benign nevus documented in this encounter Additional Health Concerns Assessment Noted Time PHQ-9 Depression Total Score: 18 025 11:25 AM EST documented as of this encounter Care Teams Video Game Creator Relationship Specialty Start Date End Date Umm Coley MD [address] [place] [address] PCP - General Family Medicine 10/31/16 West Meier RN [address] [place] [id number] Registered Nurse Family Medicine 05/10/25 [facility] 05/18/25 documented as of this encounter
[2025-10-18 11:39] VITALS: BP 100/50; PULSE 79; BMI 20.1
--- NOTE | 2025-10-18 11:39 | A.OFFVIS_ITS ---
Vital Signs 10/18/25 11:39 Height 5 ft 2 in Weight 110 lb BMI 20.1 BP 100/50 L Blood Pressure Location Lt radial Position Sitting Pulse 79 Intake Visit Reasons: Lipoma of torso Intake Note: Patient referred by PCP Dr. Coley for evaluation of lipoma on back. Patient c/o: felt pain a few months ago but not recently. Human Performance Consultant Required: Yes Human Performance Consultant Language: Romanian Information Interpreted: non-clinical & clinical (Soumya REYES) Nursing Informatics Analyst: Nursing Informatics Analyst Present Accompanied by: Self / Same As Patient Allergies codeine (CODEINE) Allergy (Intermediate, Verified 10/18/25 11:46) DIZZY/NAUSEA, nausea/vomiting escitalopram (From LEXAPRO) Allergy (Intermediate, Verified 10/18/25 11:46) ? NAUSEA meperidine (MEPERIDINE) Allergy (Intermediate, Verified 10/18/25 11:46) NAUSEA morphine (MORPHINE) Allergy (Intermediate, Verified 10/18/25 11:46) PALPITATIONS, palpitation oxycodone (OXYCODONE) Allergy (Intermediate, Verified 10/18/25 11:46) PALPATATIONS, palpitations tramadol Allergy (Unknown, Verified 10/18/25 11:46) dizziness, nausea Medication List - Last Reconciled 10/18/25 by Jesse Lima MD acetaminophen (Tylenol) 325 mg PO QID PRN albuterol sulfate 90 mcg/actuation 2 puffs inhalation Q6H PRN 30 days amitriptyline 100 mg PO BEDTIME amlodipine 2.5 mg PO DAILY ascorbic acid (vitamin C) 500 mg (2 x 250 mg) PO QWEEK 90 days budesonide-formoterol 160-4.5 mcg/actuation (Symbicort) 2 puffs inhalation BID buspirone 15 mg PO TID cefpodoxime 200 mg PO Q12H 7 days clonazepam 0.5 mg PO BEDTIME clonazepam 1 mg PO DAILY cyanocobalamin (vitamin B-12) 100 mcg PO DAILY dicyclomine 40 mg (2 x 20 mg) PO QID docusate sodium 100 mg PO BID PRN Held on 03/17/25. Instructions: Doctor's Order famotidine 40 mg PO DAILY ferrous sulfate 325 mg PO QWEEK 90 days fluticasone propion-salmeterol 115-21 mcg/actuation (Advair HFA) 2 puffs inhalation BID hydroxyzine HCl 25 mg PO BEDTIME PRN ibuprofen 600 mg PO Q6-8H PRN loratadine 10 mg PO DAILY meclizine 25 mg orally every 8 hours as needed; melatonin 10 mg (2 x 5 mg) PO BEDTIME 30 days meloxicam 15 mg PO DAILY 30 days metoclopramide HCl (Reglan) 5 mg PO QIDACHS mirtazapine 30 mg PO BEDTIME naproxen 500 mg PO BID PRN 7 days olanzapine 20 mg PO BEDTIME omeprazole 20 mg PO DAILY ondansetron 4 mg PO Q8H PRN polyvinyl alcohol-povidone 0.5-0.6 % (Clear Eyes Natural Tears) drps ophthalmic (eye) prazosin 4 mg PO BEDTIME prednisone 20 mg PO DAILY 7 days pregabalin 150 mg PO BID 30 days psyllium husk 0.4 grams PO BID ropinirole 0.5 mg (2 x 0.25 mg) PO TID sennosides (senna) 17.2 mg (2 x 8.6 mg) PO BEDTIME PRN 90 days Held on 03/17/25. Instructions: Doctor's Order sertraline 200 mg PO DAILY sumatriptan succinate 100 mg orally . PRN; 100 mg orally at onset of headache, may repeat in 2 hrs PRN; max 2 tabs per day or 4 tabs/week (may take with Naproxen 440mg or Tylenol 1000mg) 30 days MDD 200mg tamsulosin (Flomax) 0.4 mg PO DAILY 7 days walker As directed HPI Comments Details: Patient reports she was in the ER recently for abdominal discomfort. She underwent an extensive workup and was told that she had a kidney stone. She was also told that she had a left upper back lipoma. She is here for assessment of the lipoma. She denies any trauma or instrumentation to the region. She is not sure she wants to have surgery to excise it but would like to have reassurance that is not ?a problem?. [facility] Medical History History of obstruction of large intestine Epigastric pain Right flank pain Migraine Paresthesia of skin Tension headache MCI (mild cognitive impairment) Peripheral neuropathy Breast cancer Primary osteoarthritis of right hand Right shoulder pain Rotator cuff tendinitis Arthritis of right shoulder region Right hand pain Breast cancer, right Status post radiation therapy Anemia Diarrhea Depression Somatization disorder Migraine equivalent syndrome Anxiety Periodontal disease Fibromyalgia Surgical History H/O hand surgery History of esophagogastroduodenoscopy (EGD) History of lumpectomy Hx of section Hx of shoulder surgery Hx of colonoscopy Family History Mother HTN (hypertension) Sister Breast cancer Bone cancer Colon polyps Sister Osteoporosis Hypercholesteremia Colon polyps Social History Household Members: None Housing: Apartment Are you a primary floor care specialist to a significant other at home: No Do you presently have visiting nurse or other home services: No Alcohol intake: never Patient Tobacco Use Status: Former Tobacco user Years Smoked: 3 service: No Current occupational status: disabled 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 Review of Systems Const All systems reviewed & are unremarkable except as noted in HPI and below Physical Exam Vital Signs: Last Vital Signs Pulse 79 10/18/25 11:39 BP 100/50 L 10/18/25 11:39 BMI result Body Mass Index 20.1 HEENT Head: Yes normal to inspection Ears: hearing grossly normal bilaterally General nose exam: Normal external nose present Face and sinus: Yes normal facial exam Eyes General: appearance normal, both eyes and all related structures Pupils: Equal, round and reactive pupils present EOM: EOMs intact bilaterally Neck Neck: Yes normal visual inspection Chest Chest palpation & inspection: normal inspection of the chest Resp Effort & Inspection: normal respiratory effort and able to speak in complete sentences Cardio Rate: regular rate Rhythm: regular rhythm GI Inspection: Yes normal to inspection Back/Spine/Pelvis Other: Subtle left upper back soft tissue mass that is mobile. Approximately 4 or 5 cm in diameter but hardly any protuberance at all, maybe half a cm or so. No skin change. No central comedo. Nontender. Neuro Cranial nerves: Yes CN's II-XII intact bilaterally and Yes Equal, round and reactive pupils present Assessment & Plan Assessment & Plan (1) Lipoma: Code(s): D17.9 - Benign lipomatous neoplasm, unspecified Category: Medical Plan: I told the patient that she had a presentation consistent with possible very subtle lipoma presentation or even asymmetry in the distribution of the subdermal fatty tissue in the area. Be that as it may I reassured her I did not appreciate any worrisome issue associated with her concern however I also told her that the benign nature could only definitively be assessed with a surgical specimen procured during excisional biopsy. She reports she does not want to really do anything at this point in time. She accepts the risks of conservative management. She does agree to come back and see us again in a year for a recheck and she has also agreed to contact us should she have any questions or problems. Coding Level of Care Code New Pt Level 3 (09133) Diagnoses Lipoma D17.9 Time Spent (min) 30 Comment Patient visit record review and coordination of care time
--- OUTSIDE RECORDS SUMMARY | 2025-10-18 15:14 | XMS_ITS | Encounter Summary ---
Author Organization [employer] Address [address] [facility] [address] [place] [address] Care Team Providers Care Pacs Administrator Name Role Phone Umm Coley MD Primary Care Provider + [place] RN Unavailable [phone] Reason for Visit * Reason Comments Med Refill Encounter Details Date Type Department Care Team (Late st Contact Info) Description 07/06/2025 Refill [facility] [address] [place], [place] [phone] Umm Coley MD [address] [place], [place] [phone] Social History Tobacco Use Types Packs/Day Years [...] Description 01/16/2026 1:00 PM EDT Office Visit [facility] OPTOMET[facility] [address] [place] [address] Leonardo, Uyen, OD [address] [facility] [place] [address] documented as of this encounter Visit Diagnoses Not on filedocumented in this encounter Additional Health Concerns Assessment Noted Time PHQ-9 Depression Total Score: 10 024 9:17 AM EDT documented as of this encounter Care Teams Pacs Administrator Relationship Specialty Start Date End Date Umm Coley MD [address] [place] [address] PCP - General Family Medicine 10/31/16 [place], BEBA [address] [place] [id number] Registered Nurse Family Medicine 05/10/25 [facility] 05/18/25 documented as of this encounter
--- OUTSIDE RECORDS SUMMARY | 2025-10-18 15:14 | XMS_ITS | Encounter Summary ---
Author Organization [employer] Address [address] [place] [address] [address]t [place] [address] Care Team Providers Care Customer Solutions Specialist Name Role Phone Umm Coley MD Primary Care Provider + [place] Me[place] RN Unavailable [phone] Reason for Visit * Reason Onset Date Comments Appointment Request 07/19/2025 Encounter Details Date Type Department Care Team ([facility] st Contact Info) Description 07/19/2025 Telephone [facility] MEDICINE [address] [place], [place] [phone] Umm Coley MD [address] [place], [place] [phone] Appointment Request Social History Tobacco Use Types [...] Description 01/16/2026 1:00 PM EDT Office Visit [facility] OPTOMETRY [address] [place], [place] [phone] Uyen Patterson, OD [address] [place] [address] documented as of this encounter Visit Diagnoses Not on filedocumented in this encounter Additional Health Concerns Assessment Noted Time PHQ-9 Depression Total Score: 18 025 12:18 PM EDT documented as of this encounter Care Teams Customer Solutions Specialist Relationship Specialty Start Date End Date Umm Coley MD [address] [place] [address] PCP - General Family Medicine 10/31/16 [place], BEBA [address] [place] [id number] Registered Nurse Family Medicine 05/10/25 [facility] 05/18/25 documented as of this encounter
--- OUTSIDE RECORDS SUMMARY | 2025-10-18 15:14 | XMS_ITS | Encounter Summary ---
Author Organization [employer] Address [address] [place] [address] [address]t [place] [address] Care Team Providers Care Steamfitter Name Role Phone Umm Coley MD Primary Care Provider + [place] Me[place] RN Unavailable [phone] [place] Me[place] RN Unavailable [phone] Shannan Covington Unavailable Encounter Details Date Type Department Care Team (Latest Contact Info) Description 03/13/2022 Abstract [facility] CONVERSIONS Dental, Provider, DDS Social History [...] Description 01/16/2026 1:00 PM EDT Office Visit [facility] OPTOMETRY [address] [place], [place] [phone] Leonardo, Uyen, OD [address] [place], [place] [phone] documented as of this encounter Visit Diagnoses Not on filedocumented in this encounter Care Teams Steamfitter Relationship Specialty Start Date End Date Umm Coley MD [address] [place], [place] [phone] PCP - General Family Medicine 10/31/16 [place] Me[place], RN [address] [place] [address] Java [employer] DeveloperProduction Clerks Supervisor 01/12/25 04/25/25 [place], RN [address] [place] [address] Registered Nurse Family Medicine 05/10/25 Shannan Covington 06/08/25 06/08/25 Eva Nunez Java Oracle Developer 04/05/24 07/06/24 [facility] 05/11/24 11/17/24 [facility] 11/14/24 01/17/25 [employer] 12/08/24 [facility] 05/18/25 documented as of this encounter
--- OUTSIDE RECORDS SUMMARY | 2025-10-18 15:14 | XMS_ITS | Encounter Summary ---
Author Organization [employer] Address [address] [place] [address] [address] [place] [address] Care Team Providers Care Special Needs Bus Driver Name Role Phone Umm Coley MD Primary Care Provider + [place] Me[place] RN Unavailable [phone] Reason for Visit * Reason Onset Date Comments Med Refill 06/28/2025 Encounter Details Date Type Department Care Team (Late st Contact Info) Description 06/28/2025 Telephone [facility] MEDICINE [address] [place], [place] [phone] Umm Coley MD [address] [place], [place] [phone] Med Refill Social History Tobacco Use Types [...] MCG (1999) capsule To be sent to: [facility]/pharmacy #[id number] [place], [place] - [address] [place] [address] documented in this encounter Plan of Treatment Upcoming Encounters Date Type Department Care Team ([facility] st Contact Info) Description 01/16/2026 1:00 PM EDT Office Visit [facility] OPTOMETRY [address] [place], [place] [phone] Uyen Patterson, OD [address] [place] [address] documented as of this encounter Visit Diagnoses Not on filedocumented in this encounter Additional Health Concerns Assessment Noted Time PHQ-9 Depression Total Score: 10 024 9:17 AM EDT documented as of this encounter Care Teams Special Needs Bus Driver Relationship Specialty Start Date End Date Umm Coley MD [address] [place] [address] PCP - General Family Medicine 10/31/16 [place] Me[place], BEBA [address] [place] [address] Registered Nurse Family Medicine 05/10/25 [facility] 05/18/25 documented as of this encounter
--- OUTSIDE RECORDS SUMMARY | 2025-10-18 15:14 | XMS_ITS | Encounter Summary ---
Author Organization [employer] Address [address] [facility] [address] [place] [address] Care Team Providers Care Pipe Installer Name Role Phone Umm Coley MD Primary Care Provider + [place] RN Unavailable [phone] Encounter Details Date Type Department Care Team (Latest Contact Info) Description 10/13/2025 Travel Social History Tobacco Use Types Packs/Day [...] the past 12 months, has t he [employer], gas, oil or water [employer] threatened to shut off services in your [...] Description 01/16/2026 1:00 PM EDT Office Visit [facility] OPTOMETRY [address] [place] [address] Leonardo, Uyen, OD [address] [place] [address] documented as of this encounter Visit Diagnoses Not on filedocumented in this encounter Additional Health Concerns Assessment Noted Time PHQ-9 Depression Total Score: 18 025 11:25 AM EST documented as of this encounter Care Teams Pipe Installer Relationship Specialty Start Date End Date Umm Coley MD [address] [place] [address] PCP - General Family Medicine 10/31/16 West Meier RN [address] [place] [address] Registered Nurse Family Medicine 05/10/25 [facility] 05/18/25 documented as of this encounter
--- OUTSIDE RECORDS SUMMARY | 2025-10-18 15:14 | XMS_ITS | Encounter Summary ---
Author Organization [employer] Address [address] [place] [address] [address] [place] [address] Care Team Providers Care Kosher Dietary Service Supervisor Name Role Phone Umm Coley MD Primary Care Provider + [place] Me[place] RN Unavailable [phone] [place] Me[place] RN Unavailable [phone] Shannan Covington Unavailable Encounter Details Date [...] Description 01/16/2026 1:00 PM EDT Office Visit [facility] OPTOMETRY [address] [place], [place] [phone] Leonardo, Uyen, OD [address] [place], [place] [phone] documented as of this encounter Visit Diagnoses Not on filedocumented in this encounter Care Teams Kosher Dietary Service Supervisor Relationship Specialty Start Date End Date Umm Coley MD [address] [place], [place] [phone] PCP - General Family Medicine 10/31/16 West Meier, RN [address] [place] [address] Software Engineering Project ManagerWind Farm Designer 01/12/25 04/25/25 [place] Me[place], RN [address] [place] [facility] [place] [id number] Registered Nurse Family Medicine 05/10/25 Shannan Covington 06/08/25 06/08/25 Eva Nunez Software Engineering Project Manager 04/05/24 07/06/24 [facility] 05/11/24 11/17/24 [facility] 11/14/24 01/17/25 [employer] 12/08/24 [facility] 05/18/25 documented as of this encounter
--- OUTSIDE RECORDS SUMMARY | 2025-10-18 15:14 | XMS_ITS | Encounter Summary ---
Author Organization [employer] Address [address] [place] [address] 7t [place] [address] Care Team Providers Care Auto Slip Cover Installer Name Role Phone Umm Coley MD Primary Care Provider + West Meier RN Unavailable [phone] West Meier RN Unavailable [phone] Shannan Covington Unavailable Reason for Visit * Reason Onset Date Comments appt 01/08/2024 Encounter Details Date Type Department Care Team (Late st Contact Info) Description 01/08/2024 Telephone [facility] [address] [place], [place] [phone] Homer Strong DDS [address], [place] [phone] appt Social History Tobacco Use Types Packs/Day [...] Description 01/16/2026 1:00 PM EDT Office Visit [facility] [address] [place] [address] Leonardo, Uyen, OD [address] [place] [address] documented as of this encounter Visit Diagnoses Not on filedocumented in this encounter Additional Health Concerns Assessment Noted Time PHQ-9 Depression Total Score: 21 024 11:31 AM EST documented as of this encounter Care Teams Auto Slip Cover Installer Relationship Specialty Start Date End Date Umm Coley MD [address] [place] [address] PCP - General Family Medicine 10/31/16 West Meier, RN [address] [place] [address] Engineering AdministratorSupply Chain Coordinator 01/12/25 04/25/25 West Meier RN [address] [place] [address] Registered Nurse Family Medicine 05/10/25 Shannan Covington 06/08/25 06/08/25 Eva Nunez Engineering Administrator 04/05/24 07/06/24 [facility] 05/11/24 11/17/24 [facility] 11/14/24 01/17/25 [employer] 12/08/24 [facility] 05/18/25 documented as of this encounter
--- OUTSIDE RECORDS SUMMARY | 2025-10-18 15:14 | XMS_ITS | Encounter Summary ---
Author Organization [employer] [facility] Address [address] [place] [address] 7t [place] [address] Care Team Providers Care Help Desk Associate Name Role Phone Umm Coley MD Primary Care Provider + West Meier RN Unavailable [phone] West Meier RN Unavailable [phone] Shannan Covington Unavailable Encounter Details Date Type Department Care Team (Late st Contact Info) Description 09/24/2022 Abstract [facility] [address] [place] [address] Dental, Provider, DDS Social History Tobacco Use [...] Description 01/16/2026 1:00 PM EDT Office Visit [facility] OPTOMETRY [address] [place], [place] [phone] Uyen Patterson, OD [address] [place] [address] documented as of this encounter Procedures Procedure [...] on filedocumented in this encounter Care Teams Help Desk Associate Relationship Specialty Start Date End Date Umm Coley MD [address] [place] [address] PCP - General Family Medicine 10/31/16 West Meier RN [address] [place] [address] Typewriter AlignerMagazine Editor 01/12/25 04/25/25 West Meier RN [address] [place] [address] Registered Nurse Family Medicine 05/10/25 Shannan Covington 06/08/25 06/08/25 Eva Nunez Typewriter Aligner 04/05/24 07/06/24 [facility] 05/11/24 11/17/24 [facility] 11/14/24 01/17/25 [employer] 12/08/24 [facility] 05/18/25 documented as of this encounter
--- OUTSIDE RECORDS SUMMARY | 2025-10-18 15:14 | XMS_ITS | Encounter Summary ---
Author Organization [employer] Address [address] [place] [address] [address] [place] [address] Care Team Providers Care Surveillance Sensor Officer Name Role Phone Umm Coley MD Primary Care Provider + West Meier RN Unavailable [phone] West Meier RN Unavailable [phone] Shannan Covington Unavailable Encounter Details Date Type Department Care Team (Late st Contact Info) Description 11/03/2022 Orders Only [facility] [address] [place], [place] [phone] Umm Coley MD [address] [place], [place] [phone] Osteopenia after menopause (Primary Dx) Social History [...] Description 01/16/2026 1:00 PM EDT Office Visit [facility] OPTOMETRY [address] [place], [place] [phone] Leonardo, Uyen, OD [address] [place] [address] Scheduled Orders Name Type Priority Associated Diagnoses Orde r Schedule Vitamin D, 25-Hydroxy, Total, Immunoassay Lab Routine Osteopenia after menopause Expected: 11/03/2022 (Approximate), Expires: 11/03/2023 PTH, Intact (ICMA) And Ionized Calcium Lab Routine Osteopenia after menopause Expected: 11/03/2022 (Approximate), Expires: 11/03/2023 documented as of this encounter Visit Diagnoses Diagnosis Osteopenia after menopause- Primary documented in this encounter Care Teams Surveillance Sensor Officer Relationship Specialty Start Date End Date Umm Coley MD [address] [place] [address] PCP - General Family Medicine 10/31/16 West Meier, RN [address] [place] [address] Geospatial DeveloperHousehold Manager 01/12/25 04/25/25 West Meier, RN [address] [place] [address] Registered Nurse Family Medicine 05/10/25 Shannan Covington 06/08/25 06/08/25 Eva Nunez Geospatial Developer 04/05/24 07/06/24 [facility] 05/11/24 11/17/24 [facility] 11/14/24 01/17/25 [employer] 12/08/24 [facility] 05/18/25 documented as of this encounter
--- OUTSIDE RECORDS SUMMARY | 2025-10-18 15:15 | XMS_ITS | Encounter Summary ---
Author Organization [employer] Address [address] [place] [address] 7[address] [place] [address] Care Team Providers Care Desktop Architect Name Role Phone Umm Coley MD Primary Care Provider + West Meier RN Unavailable [phone] West Meier RN Unavailable [phone] Shannan Covington Unavailable Reason for Visit * Reason Comments Med Refill Encounter Details Date Type Department Care Team (Late st Contact Info) Description 06/10/2023 Refill [facility] [address] [place], [place] [phone] Yenny Morris MD [address] [place], [place] [phone] Rash Social History Tobacco Use Types Packs/Day [...] Description 01/16/2026 1:00 PM EDT Office Visit [facility] OPTOMETRY [address] [place], [place] [phone] Uyen Patterson, OD [address] [place], [place] [phone] documented as of this encounter Visit Diagnoses Diagnosis Rash Rash and other nonspecific skin eruption documented in this encounter Additional Health Concerns Assessment Noted Time PHQ-9 Depression Total Score: 12 023 1:58 PM EDT documented as of this encounter Care Teams Desktop Architect Relationship Specialty Start Date End Date Umm Coley MD [address] [place], [place] [phone] PCP - General Family Medicine 10/31/16 West Meier, RN [address] [place] [address] Side Panel PadderNational Sales Representative 01/12/25 04/25/25 West Meier RN [address] [place] [address] Registered Nurse Family Medicine 05/10/25 Shannan Covington 06/08/25 06/08/25 Eva Nunez Side Panel Padder 04/05/24 07/06/24 [facility] 05/11/24 11/17/24 [facility] 11/14/24 01/17/25 [employer] 12/08/24 [facility] 05/18/25 documented as of this encounter
--- OUTSIDE RECORDS SUMMARY | 2025-10-18 15:15 | XMS_ITS | Encounter Summary ---
Author Organization [facility] Address [address] [place] [address] [address] [place] [address] Care Team Providers Care Humanities Department Chair Name Role Phone Umm Coley MD Primary Care Provider + West Meier RN Unavailable [phone] West Meier RN Unavailable [phone] Shannan Covington Unavailable Encounter Details Date Type Department Care Team (Latest Contact Info) Description 11/14/2019 Abstract [facility] Dental, Provider, DDS Social History [...] Description 01/16/2026 1:00 PM EDT Office Visit [facility] OPTOMETRY [address] [place], [place] [phone] Leonardo, Uyen, OD [address] [place], [place] [phone] documented as of this encounter Visit Diagnoses Not on filedocumented in this encounter Care Teams Humanities Department Chair Relationship Specialty Start Date End Date Umm Coley MD [address] [place], [place] [phone] PCP - General Family Medicine 10/31/16 West Meier, RN [address] [facility] [place] [address] Furniture InspectorCampus Rep 01/12/25 04/25/25 West Meier, RN [address] [facility] [address] Registered Nurse Family Medicine 05/10/25 Shannan Covington 06/08/25 06/08/25 Eva Nunez Furniture Inspector 04/05/24 07/06/24 [facility] 05/11/24 11/17/24 [facility] 11/14/24 01/17/25 [facility] 12/08/24 [facility] 05/18/25 documented as of this encounter
--- OUTSIDE RECORDS SUMMARY | 2025-10-18 15:15 | XMS_ITS | Encounter Summary ---
Author Organization [employer] Address [address] [facility] [address] [place] [address] Care Team Providers Care Rail Assembler Name Role Phone Umm Coley MD Primary Care Provider + West Meier RN Unavailable [phone] West Meier RN Unavailable [phone] Shannan Covington Unavailable Reason for Visit * Reason Onset Date Comments Appointment 02/24/2023 Encounter Details Date Type Department Care Team (Late st Contact Info) Description 02/24/2023 Telephone [facility] [address] [place] [address] Johnny Gonzalez, WILIAN [address] [place], [place] [phone] Appointment Social History Tobacco Use Types Packs/Day [...] Description 01/16/2026 1:00 PM EDT Office Visit [facility] OPTOMETRY [address] [place], [place] [phone] LeonardoUyen awad, OD [address] [place] [address] documented as of this encounter Visit Diagnoses Not on filedocumented in this encounter Care Teams Rail Assembler Relationship Specialty Start Date End Date Umm Coley MD [address] [place] [address] PCP - General Family Medicine 10/31/16 West Meier, BEBA [address] [place] [address] Tube Laser OperatorEducational Program Assistant 01/12/25 04/25/25 West Meier, BEBA [address] [place] [address] Registered Nurse Family Medicine 05/10/25 Shannan Covington 06/08/25 06/08/25 Eva Nunez Tube Laser Operator 04/05/24 07/06/24 [facility] 05/11/24 11/17/24 [facility] 11/14/24 01/17/25 [employer] 12/08/24 [facility] 05/18/25 documented as of this encounter
--- OUTSIDE RECORDS SUMMARY | 2025-10-18 15:15 | XMS_ITS | Clinical Summary ---
Author Organization [employer] Address [address] [place] [address] 7t [place] [address] Care Team Providers Care Scaffold Worker Name Role Phone Shalonda Coley MD Primary Care Provider + [place] RN Unavailable [phone] Allergies Active Allergy Reactions Criticality Noted [...] itching. 30 g 5 09/19/20 26 Active tacrolimus (Protopic) 0.1 % ointmentIndica tions:Hypomela nosis Apply topically 2 times daily. 30 g 5 10/13/20 26 Active ibuprofen 600 MG tabletIndicati ons:Left [...] Sp breast CA chemotherapy toxicity, follow-up with natural gas treating unit operator. Doing better on Symbicort daily, has follow-up with natural gas treating unit operator next month. She is a non-smoker, she declines influenza COVID or PCV immunization today. Advised to have them and RSV at earliest convenience at a local pharmacy Myocardiopathy ([facility]) 08/10/2025 Assessment & Plan (08/10/2025 3:25 [...] psych medication as per psych prescriber at [facility]. She is on Colace daily [...] regarding medication management by current VNA services ([facility]). I asked her if she wants [...] with mental health provider in [facility]. Dry eye 05/16/2024 Assessment & Plan (05/16/2024 [...] She was referred to vestibular therapy at [facility], information given to pt to schedule appointment [...] write a complaint to the landlord, building home health administrator, and housing department. I gave them information about employment legal assistant in the [place] [address] Will refer to ambulatory care nurse to assist with housing due to poor conditions of current apartment Pt already has a letter from counselor, will FU at next appointment Household circumstance affecting care 02/03/2023 Assessment & Plan (12/11/2023 9:49 AM EST): Pt has depression and difficulty with memory. She has a MANAGER [employer] and a VNA to manage med, pharma education. VNA can go a few times per week once a POC has been discussed and taught to pt's caregivers Assessment & Plan (04/02/2023 2:38 PM EDT): Pt continues to live in the same apartment with anxiety from recent of her neighbor. Already in contact with [facility] and team is helping her with [...] EST): Pt seen psychotherapist and psychiatry at [facility], needs medication management due to Hx [...] She will continue close follow up with [facility] Psych. I explained to patient that [...] (02/26/2023 1:11 PM EDT): Pt seeing [facility] team every week. I counseled her to [...] we can organize the medications. Pt and MANAGER [employer] agreed with the plan of care. POC discussed with team nurse and cashier supervisor. Assessment & Plan (04/28/2024 3:33 PM [...] new CM program, she has a new MANAGER [employer] and VNA goes daily to administer medication and thus psychoeducation. Continue close follow-up with [facility] psychiatry prescriber, she is on multiple medications for depression, anxiety and insomnia. Continue close follow-up with counselor Niyah Whatley from [facility] psychiatrist, she feels safe at home and is able to reach out for safety Patient denies any acute or recent SI or HI Assessment & Plan (05/02/2025 3:09 PM EDT): Worsening related to external circumstances and also to lack of medications as she has not been taking medications as prescribed. As per the recent medication list requested by geriatric case manager on March 2025, she was on BuSpar 15 mg 3 times daily, clonazepam twice daily as needed anxiety, mirtazapine 30 mg nightly, olanzapine 20 mg nightly, prazosin 4 mg nightly and sertraline 200 mg/day (See encounter under media on 03/03/2025). She will continue to follow [facility] for pharmacotherapy and continue to see her therapist Niyah Whatley regularly (ph#[phone]). At this time she feels safe at home and is able to reach out for safety both of her therapist, the crisis and I told her that she can come to walk-in clinic as needed worsening anxiety. No change in medications at this time, will call [facility] psychiatry for med reconciliation and VNA [...] (04/28/2024 5:25 PM EDT): Pt seen by [facility] clinician, continue psychotherapy every week. She [...] education. She's followed by [facility] psych. I told her and MANA[employer] she needs to bring all her med bottles so we can go over her meds until the new VNA service is restarted. Her MANAGER [employer] is helping her as well as her daughter With meds for now. Pt feels safe. Will send new Rx if needed with prescription in greek so VNA can read it (one of the issues being that med rx were written in Nigerian and the VNA that took over didn't understand the directions). Will check with VNA service to see what current situation is, pt wants to start using a new VNA service (the one her neighbor uses, [employer] [place] [facility]) . 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 Verruca vulgaris 04/15/2012 Ductal carcinoma of right breast ([facility]/HCC) 04/02 Overview (12/24/2023): DCIS, Grade 3 [...] Plan (05/02/2024 5:56 PM EDT): -Followed by [facility] - last available consult note March [...] Encounters Date Type Department Care Team Description 10/13/2025 11:45 AM EST Office Visit [facility] MEDICINE [address] [place] [phone] Darrell Myers MD Hypomelanosis (Primary Dx); Benign nevus 10/13/2025 Travel 10/09/[address] [address] Shalonda Coley MD Care Coordination (Utilization review.) 10/03/[address] [address] Shalonda Coley MD ER Follow-up 10/02/2025 Telephone [facility] [address] [place] [address] [phone] Shalonda Coley MD 10/01/2025 Orders Only GENERIC EXTERNAL DATA DEPARTMENT Provider, Generic External Data 09/25/[address] [address] Shalonda Coley MD 09/25/[address] [address] Shalonda Coley MD Call Back Request 09/19/2025 6:00 PM EST Office Visit [facility] WALK-IN CENTER [address] [place] [phone] Akshat Slater CNP Left arm pain (Primary Dx); Chronic neck pain; Arthropod bite, initial encounter 09/19/2025 Travel 09/19/[address] [address] Shalonda Coley MD Nurse Triage 09/12/2025 11:15 AM EST Office Visit [address] [address] Shalonda Coley MD 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); Borderline personality disorder (CMS/HCC) (HCC); Concern about stroke without diagnosis; Lipoma of torso; Mastalgia 09/12/2025 Travel 09/11/[address] [address] Shalonda Coley MD Chart Prep 09/07/[address] [address] Shalonda Coley MD Appointment Request 09/05/2025 Orders Only [facility] External Provider, [facility] 08/29/[address] [address] Shalonda Coley MD 08/22/2025 Patient Outreach [facility] CHC MED & PEDS [address] [place] [address] Shalonda Coley MD Care Management (C3CM- F/U call) 08/17/[address] [address] Shalonda Coley MD DME 08/11/[address] [address] Shalonda Coley MD DME 08/10/2025 11:45 AM EDT Office Visit [address] [address] Shalonda Coley MD Wrist fracture, closed, right, with routine healing, subsequent encounter (Primary Dx); Radiation fibrosis of lung (CMS/HCC); Other cardiomyopathy (HCC); Ductal carcinoma of right breast (CMS/HCC) (HCC); 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); Other specified hearing loss of right ear, unspecified hearing status on contralateral side; Vitamin D deficiency; Localized osteoarthritis of left knee 08/10/2025 Travel 08/10/2025 Telephone [facility] MEDICINE [address] [place] [address] Shalonda Coley MD Chart prep 07/19/2025 Telephone [facility] MEDICINE [address] [place], [place] [phone] Shalonda Coley MD Appointment Request from Last 3 Months Immunizations Immunization [...] 20 10/13/2025 11:57 AM EST Oxygen Saturation 96% 09/19/2025 5:08 PM EST Inhaled Oxygen Concentration - - Weight 52.4 kg (115 lb 9.6 oz) 10/13/2025 11:57 AM EST Height 157.5 cm (5' 2 ) 10/13/2025 11:57 AM EST Body Mass Index 21.14 10/13/2025 11:57 AM EST Plan of Treatment Upcoming Encounters Date Type Department Care Team (Late st Contact Info) Description 01/16/2026 1:00 PM EDT Office Visit [facility] OPTOMETRY [address] [place] [address] Leonardo, Uyen, OD [address] [place] [address] Health Maintenance Due Date Last Done Comments [...] 50-74 years 1-dose series) 2013 COVID-19 Vaccine ( season) 2025 12/04/2021, 02/06/2021, [...] 05/02/2025 SDOH Screening 05/02/2026 05/02/2025 Tobacco Screening 10/13/2026 10/13/2025 Cervical Cancer Screening 10/08/2027 HPV/Cotest 10/08/2027 10/08/2022 [...] Procedure Name Priority Date/Time Associated Diagnosis Comments BD DEXA AXIAL Routine 10/18/2025 1:21 PM EST LACTIC ACID Routine 10/01/2025 3:13 PM EST BLOOD CULTURE (FIRST) Routine 10/01/2025 3:13 PM EST BLOOD CULTURE (SECOND) Routine 3:[address] ABDOMEN PELVIS WO CONTRAST Routine 10/01/2025 2:44 PM EST COMPLETE BLOOD COUNT MAN DIF Routine 10/01/2025 2:16 PM EST CBC WITH AUTO DIFFERENTIAL Routine 10/01/2025 2:16 PM EST STRESS TEST WITH MYOCARDIAL PERFUSION Routine 09/05/2025 11:02 AM EST XR ABDOMEN 2V+ Routine 08/16/2025 11:17 AM EDT XR HAND 3+ VIEWS BILATERAL Routine 08/07/2025 12:11 PM EDT XR KNEE 3 VIEWS BILATERAL Routine 08/07/2025 12:05 PM EDT PROPHYLAXIS - ADULT Routine 06/06/2025 [...] Recently Relevant to Health Maintenance Results * BD DEXA Axial (10/18/2025 1:21 PM EST) Anatomical Region Laterality Modality Body Radiographic Kyleigh ging 10/18/2025 1:21 PM EST Narrative 10/18/2025 1:40 PM EST [facility] [address] [place] [address] Mammography Report Signed Patient: Diana Mcpherson MR#: [id number] : 1965 Acct:[id number] Age/Sex: 60 / F ADM Date: 10/18/25 Loc: HO.MAMMO Attending Dr: Girish Frye MD Ordering Physician: Girish Frye MD Results: Date of Service: 10/18/25 Follow Up: Procedure(s): XR DEXA axial skeleton Accession Number(s): [id number] cc: Girish Frye MD; Akshat Slater NP Reason For Exam: M81.0 - Age-related osteoporosis without current pathological fracture EXAMINATION: DXA BONE DENSITY AXIAL HISTORY: M81.0 - Age-related osteoporosis without current pathological fracture TECHNIQUE: [email or web address] Dual energy absorptiometry (DEXA) of the lumbar spine, total left hip, and femoral neck was performed. COMPARISON: There are no prior studies for comparison. FINDINGS: The bone mineral density of the lumbar spine is 1.126 g/cm2, corresponding to a T-score of -0.4, and a Z-score of 1.5. This is indicative of normal bone mineral density. The bone mineral density of the left total hip is 0.797 g/cm2, corresponding to a T-score of -1.7, and a Z-score of -0.2. This is indicative of osteopenia. The bone mineral density of the left femoral neck is 0.721 g/cm2, corresponding to a T-score of -2.3, and a Z-score of -0.6. This is indicative of osteopenia. FRACTURE RISK: The FRAX index suggests a risk of major osteoporotic fracture of 5.6%, and of hip fracture 1.0%. MM/XR DEXA axial skeleton IMPRESSION: Based on bone mineral density, and according to World Health Organization (WHO) criteria, the diagnosis is consistent with osteopenia. Statistically, 68% of repeat scans fall within 1 SD (+/- 0.010 g/cm2 for AP spine L1-L4) and 1 SD (+/- 0.012 g/cm2 for femur total) FRAX is a trademark of the [employer] Met[employer] Disease, a World Health Organization (WHO) Collaborating Center. Electronically signed by: Beka Packer MD 10/18/2025 01:36 PM [facility] Dictated By: Beka Packer MD Signed By: <Electronically signed by Beka Packer MD in OV> 10/18/25 1336 DD/ 1321 TD/TT: 10/18/25 1315 Manager Community Development: Procedure Note Donotuseinterpreter, Image - 10/18/2025 [facility] [address] [place] [address] Mammography Report Signed Patient: Diana Mcpherson LMR#: M [id number] : 1965Acct:[id number] Age/Sex: 60 / FADM Date: 10/18/25 Loc: ROLY[facility] Attending Dr: Girish Frye MD Ordering Physician: Girish Fryeesults: Date of Service: 10/18/25Follow Up: Procedure(s): XR DEXA axial skeleton Accession Number(s): [id number] cc: Girish Frye MD; Akshat Slater NP Reason For Exam: M81.0 - Age-related osteoporosis without currentpathological fracture EXAMINATION: DXA BONE DENSITY AXIAL HISTORY: M81.0 - Age-related osteoporosis without current pathological fracture TECHNIQUE: [email or web address] Dual energy absorptiometry (DEXA) of the lumbar spine, total left hip, and femoral neck was performed. COMPARISON: There are no prior studies for comparison. FINDINGS: The bone mineral density of the lumbar spine is 1.126 g/cm2, corresponding to a T-score of -0.4, and a Z-score of 1.5. This is indicative of normal bone mineral density. The bone mineral density of the left total hip is 0.797 g/cm2, corresponding to a T-score of -1.7, and a Z-score of -0.2. This is indicative of osteopenia. The bone mineral density of the left femoral neck is 0.721 g/cm2, corresponding to a T-score of -2.3, and a Z-score of -0.6. This is indicative of osteopenia. FRACTURE RISK: The FRAX index suggests a risk of major osteoporotic fracture of 5.6%, and of hip fracture 1.0%. MM/XR DEXA axial skeleton IMPRESSION: Based on bone mineral density, and according to World Health Organization (WHO) criteria, the diagnosis is consistent with osteopenia. Statistically, 68% of repeat scans fall within 1 SD (+/- 0.010 g/cm2 for AP spine L1-L4) and 1 SD (+/- 0.012 g/cm2 for femur total) FRAX is a trademark of the [employer] Disease, a World Health Organization (WHO) Collaborating Center. Electronically signed by: Beka Packer MD 10/18/2025 01:36 PM EST Dictated By: Beka Packer MD Signed By: <Electronically signed by Beka Packer MD in OV> 10/18/25 1336 DD/ 1321 TD/TT: 10/18/25 1315 Manager Community Development: [facility] External Provider IMG DXA PROCEDURES Final Result * Blood Culture (First) (10/01/2025 3:13 PM EST) Blood Venous blood specimen / Unknown 10/01/2025 3:13 PM EST 10/01/2025 3:18 PM EST Comment:Blood Narrative [facility] - 10/06/2025 5:18 PM EST Blood Culture (First) No growth after 5 days. Specimen Source: Blood Generic External Data Provider LAB MICROBIOLOGY - GENERAL ORDERABLES Final Result Performing Organization Address [facility] Co de Phone Number [facility] [address] [place] [phone] * Blood Culture (Second) (10/01/2025 3:13 PM EST) Blood Venous blood specimen / Unknown 10/01/2025 3:13 PM EST 10/01/2025 3:18 PM EST Comment:Blood Narrative [facility] - 10/06/2025 5:19 PM EST Blood Culture (Second) No growth after 5 days. Specimen Source: Blood Generic External Data Provider LAB MICROBIOLOGY - GENERAL ORDERABLES Final Result Performing Organization Address [facility] Co de Phone Number [facility] [address] [place] [phone] * Lactic Acid (10/01/2025 3:13 PM EST) Lactic Acid 1.3 0.5 - 2.0 mmol/L [facility] 10/01/2025 3:13 PM EST 10/01/2025 3:18 PM EST Generic External Data Provider LAB BLOOD ORDERAB LES Final Result Performing Organization Address [facility] Co de Phone Number [facility] [address] [place] [phone] * CT Abdomen Pelvis w/o Contrast (10/01/2025 2:44 PM EST) Anatomical Region Laterality Modality Body, Pelvis, Abdomen Computed T omography 10/01/2025 2:44 PM EST Narrative 10/01/2025 2:46 PM EST [address] [address] [address] Scan Report Signed Patient: Diana Mcpherson MR#: M [id number] : 1965 Acct:[id number] Age/Sex: 60 / F ADM Date: 10/01/25 Loc: HO.ED Attending Dr: Ordering Physician: Geoffrey Valadez Date of Service: 10/01/25 Procedure(s): CT abdomen pelvis wo IV con Accession Number(s): [id number] cc: Shalonda Coley MD; Geoffrey Valadez Report Number: [id number]: Total DLP = 285.00 mGy-cm Reason for Exam: n/v CLINICAL HISTORY: n v CT abdomen and pelvis without contrast Comparison: CT/IA/SR - CT ABDOMEN PELVIS W IV CON - 07/14/23 13:54 EDT Findings: No consolidation or effusion. 6 mm calculus at the right ureterovesical junction causing wvgt-rq-ppaxbdcw hydronephrosis of the right kidney. There are several calcified granulomas within the spleen. The liver, pancreas and adrenal glands are unremarkable. There are no calcified gallstones. No bowel obstruction, pneumoperitoneum, or pneumatosis. Pelvic contents unremarkable. Normal appendix. No acute fracture. IMPRESSION: 6 mm calculus at the right ureterovesical junction causing sbxc-xb-aikmyeoy hydronephrosis. This document has been electronically signed by: Catherine Jones MD on 10/01/2025 14:44:38 Dictated By: Catherine Jones MD Signed By: <Electronically signed by Catherine Jones MD in OV> 10/01/25 1446 DD/ 1444 TD/TT: 10/01/25 144 Manager Community Development: Procedure Note Donotuseinterpreter, Image - 10/01/[address] [address] [address] Scan Report Signed Patient: Diana Mcpherson LMR#: M [id number] : 1965Acct:[id number] Age/Sex: 60 / FADM Date: 10/01/25 Loc: HO.ED Attending Dr: Ordering Physician: Geoffrey Valadez Date of Service: 10/01/25 Procedure(s): CT abdomen pelvis wo IV con Accession Number(s): [id number] cc: Shalonda Coley MD; Geoffrey Valadez Report Number: [id number]: Total DLP = 285.00 mGy-cm Reason for Exam: n/v CLINICAL HISTORY: n v CT abdomen and pelvis without contrast Comparison: CT/IA/SR - CT ABDOMEN PELVIS W IV CON - 07/14/23 13:54 EDT Findings: No consolidation or effusion. 6 mm calculus at the right ureterovesical junction causing hxmn-im-yxybajii hydronephrosis of the right kidney. There are several calcified granulomas within the spleen. The liver, pancreas and adrenal glands are unremarkable. There are no calcified gallstones. No bowel obstruction, pneumoperitoneum, or pneumatosis. Pelvic contents unremarkable. Normal appendix. No acute fracture. IMPRESSION: 6 mm calculus at the right ureterovesical junction causing bqjr-zb-kvcgsclo hydronephrosis. This document has been electronically signed by: Catherine Jones MD on 10/01/2025 14:44:38 Dictated By: Catherine Jones MD Signed By: <Electronically signed by Catherine Jones MD in OV> 10/01/25 1446 DD/ 1444 TD/TT: 10/01/25 1444 Manager Community Development: [facility] External Provider IMG CT PROCEDURES Edited Result - Final * (ABNORMAL) Complete Blood Count Manual Diff (10/01/2025 2:16 PM EST) White Blood Count 9.8 4.8 - 10.8 X10*3/uL [facility] Red Blood Count 3.37(L) 4.20 - 5.50 X10*6/uL [facility] Hemoglobin 10.6(L) 12.0 - 16.0 g/dl [facility] Hematocrit 30.9(L) 37.0 - 47.0 % [facility] Mean Corpuscular Volume 91.7 80.0 - 98.0 fL [facility] Mean Corpuscular Hemoglobin 31.5 27.0 - 33.0 pg [facility] Mean Corpuscular HGB Conc 34.3 31.0 - 35.0 g/dl [facility] Red Cell Distribution Width 13.2 11.0 - 16.0 % [facility] Platelet Count 213 160 - 400 X10*3/uL [facility] Mean Platelet Volume 8.8(L) 9.4 - 12.3 fL [facility] NRBC Pct Auto 0.0 0.0 - 0.2 /100WBC [facility] NRBC Abs Auto 0.000 0.0 - 0.012 X10*3/uL [facility] Neutrophils % Manual 82(H) 45 - 73 % [facility] Band Neutrophils Percent 13(H) 3 - 5 % [facility] Comment:Results of BANDS suzie led to RENETTA on 10/01/25at 1500 by EM. Lymphocytes Percent Manual 3(L) 20 - 40 % [facility] Monocytes Percent Manual 2 2 - 11 % [facility] NEUTROPHILS ABSOLUTE MANUAL 9.3(H) 2.0 - 8.3 X10*3/uL [facility] LYMPHOCYTES ABSOLUTE MANUAL 0.3(L) 1.2 - 4.9 X10*3/uL [facility] MONOCYTES ABSOLUTE MANUAL 0.2 0.1 - 1.2 X10*3/uL [facility] Platelet Estimate NORMAL [facility] Platelet Morphology Comment NORMAL [facility] RBC Morphology [facility] Toxic Granulation [facility] Toxic Vacuolation [facility] 10/01/2025 2:16 PM EST 10/01/2025 2:19 PM EST us Generic External Data Provider LAB BLOOD ORDERAB LES Final Result [facility] [address] [place], [place] [phone] * (ABNORMAL) CBC auto differential (10/01/2025 2:16 PM EST) White Blood Count 9.8 4.8 - 10.8 X10*3/uL [facility] Red Blood Count 3.37(L) 4.20 - 5.50 X10*6/uL [facility] Hemoglobin 10.6(L) 12.0 - 16.0 g/dl [facility] Hematocrit 30.9(L) 37.0 - 47.0 % [facility] Mean Corpuscular Volume 91.7 80.0 - 98.0 fL [facility] Mean Corpuscular Hemoglobin 31.5 27.0 - 33.0 pg [facility] Mean Corpuscular HGB Conc 34.3 31.0 - 35.0 g/dl [facility] Red Cell Distribution Width 13.2 11.0 - 16.0 % [facility] Platelet Count 213 160 - 400 X10*3/uL [facility] Mean Platelet Volume 8.8(L) 9.4 - 12.3 fL [facility] Neutrophils Percent Auto 91.9(H) 45 - 73 % [facility] Imm Gran Pct Auto 0.4 0.0 - 0.4 % [facility] Lymphocytes Percent Auto 2.6(L) 20 - 40 % [facility] Monocytes Percent Auto 4.9 2 - 11 % [facility] Eosinophils Percent Auto 0.0 0 - 4 % [facility] Basophils Percent Auto 0.2 0 - 2 % [facility] NRBC Pct Auto 0.0 0.0 - 0.2 /100WBC [facility] Neutrophils Absolute Auto 9.0(H) 2.0 - 8.3 x10*3/uL [facility] Imm Gran Abs Auto 0.04(H) 0.00 - 0.03 X10*3/uL [facility] Lymphocytes Absolute Auto 0.3(L) 1.2 - 4.9 X10*3/uL [facility] Monocytes Absolute Auto 0.5 0.1 - 1.2 X10*3/uL [facility] Eosinophils Absolute Auto 0.0 0.0 - 0.4 X10*3/uL [facility] Basophils Absolute Auto 0.0 0.0 - 0.2 X10*3/uL [facility] NRBC Abs Auto 0.000 0.0 - 0.012 X10*3/uL [facility] 10/01/2025 2:16 PM EST 10/01/2025 2:19 PM EST us Generic External Data Provider LAB BLOOD ORDERAB LES Edited Result - Final Performing Organization Address City/State/[facility] Co de Phone Number [facility] [address] [place] [phone] * Stress test with myocardial perfusion (09/05/2025 11:02 AM EST) 09/05/2025 11:0 2 AM EST Narrative [facility] - 09/07/2025 8:52 AM EST [address] [address] Nuclear Medicine Report Signed Patient: Diana Mcpherson MR#: M [id number] : 1965 Acct:[id number] Age/Sex: 60 / F ADM Date: 09/05/25 Loc: [facility] Attending Dr: Anthony Curtis MD Ordering Physician: Anthony Curtis MD Date of Service: 09/05/25 Procedure(s): NM cardiolite stress test Accession Number(s): [id number] cc: Shalonda Coley MD; Anthony Curtis MD [...] 09/07/25 0849 DD/ 1102 TD/TT: 09/06/25 0900 Manager Community Development: Procedure Note Donotuseinterpreter, Image - 09/07/[address] [address] Nuclear Medicine Report Signed Patient: Diana Mcpherson LMR#: M [id number] : 1965Acct:[id number] Age/Sex: 60 / FADM Date: 09/05/25 [facility] Attending Dr: Anthony Curtis MD Ordering Physician: Anthony Curtis MD Date of Service: 09/05/25 Procedure(s): TX cardiolite stress test Accession Number(s): [id number] cc: Shalonda Coley MD; Anthony Curtis MD [...] no clear reversible or fixed perfusion abnormality. TX/TX cardiolite stress test Impression: 1. Myocardial perfusion imaging study shows normal myocardial perfusion. 2. Gated LVEF is 52% during stress and 56% during rest, but visually appears higher. 3. Transient ischemic dilatation not present. EKG component of the test reported separately. Electronically signed by: Juan Ferrell MD 09/07/2025 08:49 AM [facility] [place] Dictated By: Juan Ferrell MD Signed By: <Electronically signed by Juan Ferrell MD inOV> 09/07/25 0849 DD/ 1102 TD/TT: 09/06/25 0900 Manager Community Development: [facility] External Provider CV STRE SS PROCEDURES Final Result [facility] [address] [place] [phone] * XR Abdomen 2 View minimum (08/16/2025 11:17 AM EDT) Anatomical Region Laterality Modality Abdomen Radiographic Kyleigh ging 08/16/2025 11:1 7 AM EDT Narrative 08/16/2025 11:34 AM EDT [address] [address] XRay Report Signed Patient: Diana Mcpherson MR#: M [id number] : 1965 Acct:[id number] Age/Sex: 60 / F ADM Date: 08/16/25 Loc: MERVAT Attending Dr: Zee ALCANTARA Ordering Physician: Zee Palma Date of Service: 08/16/25 Procedure(s): XR abdomen min 2V Accession Number(s): [id number] cc: Zee Palma; Shalonda Coley MD Reason [...] 08/16/25 1131 DD/ 1117 TD/TT: 08/16/25 1120 Manager Community Development: Procedure Note Donotuseinterpreter, Image - 08/16/[address] [address] XRay Report Signed Patient: Diana Mcpherson LMR#: [id number] : 1965Acct:[id number] Age/Sex: 60 / FADM Date: 08/16/25 Loc: HO.XRAY Attending Dr: Zee ALCANTARA Ordering Physician: Zee Palma Date of Service: 08/16/25 Procedure(s): XR abdomen min 2V Accession Number(s): [id number] cc: Zee Palma; Shalonda Coley MD Reason [...] 08/16/25 1131 DD/ 1117 TD/TT: 08/16/25 1120 Manager Community Development: [facility] External Provider IMG XR PROCEDURES Final Result * XR Hand 3+Views Bilateral (08/07/2025 12:11 PM EDT) Anatomical Region Laterality Modality Upper Extremities, Hand Bilateral Radiogra phic Imaging 08/07/2025 12:1 1 PM EDT Narrative 08/07/2025 1:08 PM EDT [address] [address] XRay Report Signed Patient: Diana Mcpherson MR#: M [id number] : 1965 Acct:[id number] Age/Sex: 60 / F ADM Date: 08/07/25 Loc: JOEL.ALIYA Attending Dr: Girish Frye MD Ordering Physician: Girish Frye MD Date of Service: 08/07/25 Procedure(s): XR Hand Bilat min 3v Accession Number(s): [id number] cc: Shalonda Coley MD; Girish Frye MD [...] 08/07/25 1306 DD/ 1211 TD/TT: 08/07/25 1223 Manager Community Development: OLYA Procedure Note Donotuseinterpreter, Image - 08/07/[address] [address] XRay Report Signed Patient: Diana Mcpherson LMR#: M [id number] : 1965Acct:[id number] Age/Sex: 60 / FADM Date: 08/07/25 Loc: HO.ALIYA Attending Dr: Girish Frye MD Ordering Physician: Girish Frye MD Date of Service: 08/07/25 Procedure(s): XR Hand Bilat min 3v Accession Number(s): [id number] cc: Shalonda Coley MD; Girish Frye MD [...] 08/07/25 1306 DD/ 1211 TD/TT: 08/07/25 1223 Manager Community Development: OLYA [facility] External Provider IMG XR PROCEDURES Final Result * XR Knee 3 Views Bilateral (08/07/2025 12:05 PM EDT) Anatomical Region Laterality Modality Lower Extremities, Knee Bilateral Radiogra phic Imaging 08/07/2025 12:0 5 PM EDT Narrative 08/07/2025 12:34 PM EDT [address] [address] XRay Report Signed Patient: Diana Mcpherson MR#: M [id number] : 1965 Acct:[id number] Age/Sex: 60 / F ADM Date: 08/07/25 Loc: HO.XRAY Attending Dr: Girish Frye MD Ordering Physician: Girish Frye MD Date of Service: 08/07/25 Procedure(s): XR Knee Philip 3V Accession Number(s): [id number] cc: Shalonda Coley MD; Girish Frye MD [...] 08/07/25 1232 DD/ 1205 TD/TT: 08/07/25 1223 Manager Community Development: OLYA Procedure Note Donotuseinterpreter, Image - 08/07/[address] [address] XRay Report Signed Patient: Diana Mcpherson LMR#: M [id number] : 1965Acct:[id number] Age/Sex: 60 / FADM Date: 08/07/25 Loc: HO.XRAY Attending Dr: Girish Frye MD Ordering Physician: Girish Frye MD Date of Service: 08/07/25 Procedure(s): XR Knee Philip 3V Accession Number(s): [id number] cc: Shalonda Coley MD; Girish Frye MD [...] 08/07/25 1232 DD/ 1205 TD/TT: 08/07/25 1223 Manager Community Development: OLYA [facility] External Provider IMG XR PROCEDURES Final Result * (ABNORMAL) Lipid Panel with Reflex to Direct LDL (01/31/2025 8:47 AM EDT) Triglycerides 69 <150 mg/dL [facility] Comment:Desirable Triglyceri de: less than 150 mg/dLBorderline High Triglyceride 150-199 mg/dLHigh Triglyceride: 200-499 mg/dLVery High Triglyceride: greater than or equal to 5OO mg/dL Cholesterol 213(H) <200 mg/dL [facility] Comment:Desirable Cholestero l: less than 200 mg/dLBorderline High Cholesterol: 200-239 mg/dLHigh Cholesterol: greater than 239 mg/dL LDL Cholesterol Calculated 128(H) <100 mg/dL [facility] Comment:Desirable LDL: less than 100 mg/dLNear Optimal/Above Optimal LDL: 110- 129 mg/dLBorderline High LDL: 130-159 mg/dLHigh LDL: 160-189 mg/dLVery High LDL: greater than or equal to 190 mg/dL HDL Cholesterol 72 >40 mg/dL [facility] Comment:Desirable HDL: great er than 40 mg/dL Note: This HDL assay may give artificially low results in patients with liver disease. Blood 01/31/2025 8:47 AM EDT 01/31/2025 8:47 AM EDT us Shalonda Coley MD LAB BLOOD ORDERABLES Fin al Result [facility] [address] [place], [place] [phone] * BI Mammogram Screening Tomosynthesis Bilateral (11/29/2024 8:45 AM EST) Anatomical Region Laterality Modality Breast Bilateral Mammography 11/29/2024 8:45 AM EST Narrative 12/07/2024 3:35 PM EST [address] [place] [address] Mammography Report Signed Patient: Diana Myles MR#: [id number] : 1965 Acct:[id number] Age/Sex: 59 / F ADM Date: 11/29/24 Loc: HO.MAMMO Attending Dr: Shalonda Coley MD Ordering Physician: Shalonda Coley MD Results: 2Be nign Findings Date of Service: 11/29/24 Follow Up: 1 Year From [facility] Mammogram Procedure(s): MM tomosynthesis screening BI Accession Number(s): [id number] cc: Shalonda Coley MD EXAMINATION: MM SCREENING [...] by: Chaparrita Lyn DO 12/07/2024 03:32 PM [facility] [place] Dictated By: Chaparrita Lyn DO Signed By: <Electronically signed by Chaparrita Lyn DO in OV> 12/07/24 1532 DD/ 0845 TD/TT: 11/29/24 0915 Manager Community Development: Procedure Note Donotuseinterpreter, Image - 12/07/2024 [facility] [address] [place] [address] Mammography Report Signed Patient: Diana Myles LMR#: [id number] : 1965Acct:[id number] Age/Sex: 59 / FADM Date: 11/29/24 Loc: .MAMMO Attending Dr: Shalonda Coley MD Ordering Physician: Shalonda Coley MDResults: 2Be nign Findings Date of Service: 11/29/24Follow Up: 1 Year From [facility] Mammogram Procedure(s): MM tomosynthesis screening BI Accession Number(s): [id number] cc: Shalonda Coley MD EXAMINATION: MM SCREENING [...] 12/07/24 1532 DD/ 0845 TD/TT: 11/29/24 0915 Manager Community Development: Shalonda Coley MD IMG BI PROCEDURES Edited Result - Final * (ABNORMAL) Hm Colonoscopy (07/30/2023) Colonoscopy Abnormal( A) Normal [facility] Comment:SSL polyp Shalonda Coley MD HEALTH MAINTENANCE Final Result [facility] [address] [place] [phone] * Thinprep PAP and HPV nRNA E6/E7 (10/08/2022 9:30 AM EST) Clinical Information: None given [facility] LMP: NONE GIVEN [facility] Prev. PAP: NONE GIVEN [facility] Prev. BX: NONE GIVEN [facility] SOURCE: None given [facility] Statement Of Adequacy: SATISFACTORY FOR EVALUATION Age and/or menstrual status not provided [facility] Interpretation/Re sult: [facility] Comment: Negative for intraepithelial lesion or malignancy. Atrophic pattern; predominantly parabasal cells Management Trainee Marketing: [employer] [facility] [employer] Comment: DMM, CT(ASCP) CT screening location: [address] [address] Review Management Trainee Marketing: [employer] [facility] [employer] Comment: MAMeet CT(ASCP) CT screening location: [place] [address] (Always Message) [facility] Comment: EXPLANATORY NOTE: The Pap is a [...] HPV nRNA E6/E7 Not Detected Not Detected [facility]Light Comment: Methodology: Gravel Roofer-Mediated Amplification This assay detects E6/E7 viral messenger RNA (mRNA) from 14 high-risk HPV types (16,18,31,33,35,39,45,51,52,56,58,59,66,68). Cervical sources are required for HPV testing. If a vaginal source from a patient who has had a total hysterectomy with removal of cervix was submitted, please contact the testing laboratory for alternative testing options. For additional information, please refer to http://education.[employer]/faq/GTD975o3 (This link if provided for information/ educational purposes only.) 10/08/2022 9:30 AM EST 10/10/2022 1:07 AM EST Narrative [facility] - 10/14/2022 7:08 PM EST FASTING: UNKNOWN us Shauna Matamoros CNM LAB PATHOLOGY ORDERABLES Final Result [facility] [address] [place] [address], [place] [address] [employer] [facility] [address] [place] [address], [place] [address] * HIV AB/AG (04/30/2022 11:28 AM EDT) [...] of detection of this assay. The [employer] Stuffed Casing Tier HIV Ag/Ab Combo assay result and supplemental [...] MD HISTORICAL/NON ORDERABLE LABS Final Result [facility] [address] from Last 3 Months or Most Recently Relevant to Health Maintenance Insurance [facility] C3 [facility] ST[facility] ADULT Care Teams Scaffold Worker Relationship Specialty Start Date End Date Shalonda Coley MD [address] [place] [address] PCP - General Family Medicine 10/31/16 West Meier, RN [address] [place] [address] [place] [id number] Registered Nurse Family Medicine 05/10/25 [facility] 05/18/25
--- OUTSIDE RECORDS SUMMARY | 2025-10-18 15:15 | XMS_ITS | Encounter Summary ---
Author Organization [employer] Address [address] [facility] 7t [place] [address] Care Team Providers Care Table Inspector Name Role Phone Umm Coley MD Primary Care Provider + West Meier RN Unavailable [phone] West Meier RN Unavailable [phone] Shannan Covington Unavailable Reason for Visit * Reason Onset Date Comments Appointment 03/17/2023 Encounter Details Date Type Department Care Team (Late st Contact Info) Description 03/17/2023 Telephone [facility] ADULT [facility] [address] [place] [address] Johnny Gonzalez, WILIAN [address] [place], [place] [phone] Appointment Social History Tobacco Use Types Packs/Day [...] ([facility] st Contact Info) Description 01/16/2026 1:00 PM EDT Office Visit [facility] [address] [place] [address] Leonardo, Uyen, OD [address] [place] [address] documented as of this encounter Visit Diagnoses Not on filedocumented in this encounter Care Teams Table Inspector Relationship Specialty Start Date End Date Umm Coley MD [address] [place] [address] PCP - General Family Medicine 10/31/16 West Meier RN [address] [place] [address] Aquarium Tank AttendantTurnstile Attendant 01/12/25 04/25/25 West Meier RN [address] [place] [address] Registered Nurse Family Medicine 05/10/25 Shannan Covington 06/08/25 06/08/25 Eva Nunez Aquarium Tank Attendant 04/05/24 07/06/24 [facility] 05/11/24 11/17/24 [facility] 11/14/24 01/17/25 U-[facility] 12/08/24 [facility] 05/18/25 documented as of this encounter
--- OUTSIDE RECORDS SUMMARY | 2025-10-18 15:15 | XMS_ITS ---
Author Organization [employer] Address [address] [place] [address] 7t [place] [address] Care Team Providers Care Pediatric Cardiologist Name Role Phone Umm Coley MD Primary Care Provider + West Meier RN Unavailable [phone] CM Complex Status:Enrolled (Active) Start date:05/10/2025 Enrollment date:05/10/2025 Enrollment reason:Referred by provider Overview Lost contact on [place]. Re-opening program per PCP but now on GANESH. Case Team Name Relationship Phone West Meier RN(Responsible Staff) Registered [facility] [phone] Continued Care and Services Coordination
--- OUTSIDE RECORDS SUMMARY | 2025-10-18 15:15 | XMS_ITS | Encounter Summary ---
Author Organization [employer] Address [address] [facility] 7t [place] [address] Care Team Providers Care Reproducer Name Role Phone Umm Coley MD Primary Care Provider + West Meier RN Unavailable [phone] Encounter Details Date Type Department Care Team ([facility] st Contact Info) Description 09/25/2025 Telephone [facility] [address] [place], [place] [phone] Umm Coley MD [address] [place], [place] [phone] Social History Tobacco Use Types Packs/Day Years [...] Description 01/16/2026 1:00 PM EDT Office Visit [facility] [address] [place] [address] Leonardo, Uyen, OD 230 [place] [address] documented as of this encounter Visit Diagnoses Not on filedocumented in this encounter Additional Health Concerns Assessment Noted Time PHQ-9 Depression Total Score: 18 025 11:25 AM EST documented as of this encounter Care Teams Reproducer Relationship Specialty Start Date End Date Umm Coley MD [address] [place] [address] PCP - General Family Medicine 10/31/16 West Meier RN [address] [place] [address] Registered Nurse Family Medicine 05/10/25 [facility] 05/18/25 documented as of this encounter
--- OUTSIDE RECORDS SUMMARY | 2025-10-18 15:15 | XMS_ITS | Encounter Summary ---
Author Organization [employer] Address 75 [facility] 7t [place] [address] Care Team Providers Care Cane Packer Name Role Phone Umm Coley MD Primary Care Provider + West Meier RN Unavailable [phone] West Meier RN Unavailable [phone] Shannan Covington Unavailable Encounter Details Date Type Department Care Team ([facility] st Contact Info) Description 08/23/2024 Orders Only [facility] AD[facility] D[facility]AL [address] [place], [place] [phone] Johnny Gonzalez, WILIAN 505 [place], [place] [phone] Social History Tobacco Use Types Packs/Day Years [...] Description 01/16/2026 1:00 PM EDT Office Visit [facility] [address] [place], [place] [phone] Leonardo, Uyen, OD [address] [place] [address] documented as of this encounter Visit Diagnoses Not on filedocumented in this encounter Additional Health Concerns Assessment Noted Time PHQ-9 Depression Total Score: 10 024 9:17 AM EDT documented as of this encounter Care Teams Cane Packer Relationship Specialty Start Date End Date Umm Coley MD 230 [place] [address] PCP - General Family Medicine 10/31/16 West Meier RN 505 [place] [address] Client Delivery SpecialistCattle Alley Worker 01/12/25 04/25/25 West Meier RN [address] [place], [place] [phone] Registered Nurse Family Medicine 05/10/25 Shannan Covington 06/08/25 06/08/25 [facility] 05/11/24 11/17/24 [facility] 11/14/24 01/17/25 [employer] 12/08/24 [facility] 05/18/25 documented as of this encounter
--- OUTSIDE RECORDS SUMMARY | 2025-10-18 15:15 | XMS_ITS | Encounter Summary ---
Author Organization [employer] Address [address] [place] [address] 7t [place] [address] Care Team Providers Care Ornamental Iron Worker Helper Name Role Phone Umm Coley MD Primary Care Provider + West Meier RN Unavailable [phone] West Meier RN Unavailable [phone] Shannan Covington Unavailable Reason for Visit * Reason Onset Date Comments Dr. Gonzalez conversation PCP/cleared for tx?? Encounter Details Date Type Department Care Team ([facility] st Contact Info) Description 03/28/2025 Telephone [facility]ULT [facility] [address] [place], [place] [phone] Johnny Gonzalez, WILIAN [address] [place], [place] [phone] Dr. Gonzalez conversation PCP/cleared for tx?? Social [...] provider clinical support and front end loader driver documented in this encounter Plan of Treatment Upcoming Encounters Date Type Department Care Team (Late st Contact Info) Description 01/16/2026 1:00 PM EDT Office Visit [facility] OPT[facility] [address] [place] [address] LeonardoUyen awad, OD [address] [place], [place] [phone] documented as of this encounter Visit Diagnoses Not on filedocumented in this encounter Additional Health Concerns Assessment Noted Time PHQ-9 Depression Total Score: 10 024 9:17 AM EDT documented as of this encounter Care Teams Ornamental Iron Worker Helper Relationship Specialty Start Date End Date Umm Coley MD [address] [place] [address] PCP - General Family Medicine 10/31/16 West Meier, RN [address] [place] [address] Lime BurnerForge Press Operator 01/12/25 04/25/25 West Meier, RN [address] [place] [address] Registered Nurse Family Medicine 05/10/25 Shannan Covington 06/08/25 06/08/25 [facility] 05/18/25 documented as of this encounter
--- OUTSIDE RECORDS SUMMARY | 2025-10-18 15:15 | XMS_ITS | Encounter Summary ---
Author Organization [employer] Address [address] [place] [address] 7t [place] [address] Care Team Providers Care Project Management Consultant Name Role Phone Umm Coley MD Primary Care Provider + West Meier RN Unavailable [phone] West Meier RN Unavailable [phone] Shannan Covington Unavailable Reason for Visit * Reason Onset Date Comments Appointment 06/15/2023 Encounter Details Date Type Department Care Team (Late st Contact Info) Description 06/15/2023 Telephone [facility] ADULT DENTAL [address] [place] [address] Johnny Gonzalez, WILIAN [address] [place], [place] [phone] Appointment Social History Tobacco Use Types Packs/Day [...] 1:00 PM EDT Office Visit [facility] [address] [place] [address] Leonardo, Uyen, OD 230 [place] [address] documented as of this encounter Visit Diagnoses Not on filedocumented in this encounter Additional Health Concerns Assessment Noted Time PHQ-9 Depression Total Score: 12 023 1:58 PM EDT documented as of this encounter Care Teams Project Management Consultant Relationship Specialty Start Date End Date Umm Coley MD [address] [place] [address] PCP - General Family Medicine 10/31/16 West Meier RN [address] [place] [address] Manager CostEconomic Developer 01/12/25 04/25/25 West Meier, RN [address] [place] [address] Registered Nurse Family Medicine 05/10/25 Shannan Covington 06/08/25 06/08/25 Eva Nunez Manager Cost 04/05/24 07/06/24 [facility] 05/11/24 11/17/24 [facility] 11/14/24 01/17/25 [employer] 12/08/24 [facility] 05/18/25 documented as of this encounter
--- OUTSIDE RECORDS SUMMARY | 2025-10-18 15:15 | XMS_ITS | Encounter Summary ---
Author Organization [employer] [facility] Address [address] [place] [address] 7t [place] [address] Care Team Providers Care Success Coach Name Role Phone Umm Coley MD Primary Care Provider + West Meier RN Unavailable [phone] West Meier RN Unavailable [phone] Shannan Covington Unavailable Reason for Visit * Reason Comments Med Refill Encounter Details Date Type Department Care Team (Late st Contact Info) Description 02/05/2023 Refill [facility] MEDICINE [address] [place], [place] [phone] Umm Coley MD [address] [place], [place] [phone] Arthritis of knee Social History Tobacco Use [...] Description 01/16/2026 1:00 PM EDT Office Visit [facility] OPTOMETRY [address] [place], [place] [phone] Uyen Patterson, OD [address] [place] [address] documented as of this encounter Visit Diagnoses Diagnosis Arthritis of knee Unspecified arthropathy, lower leg documented in this encounter Care Teams Success Coach Relationship Specialty Start Date End Date Umm Coley MD [address] [place] [address] PCP - General Family Medicine 10/31/16 West Meier RN [address] [place] [address] Web WeaverResidential Instructor 01/12/25 04/25/25 West Meier RN [address] [place] [address] Registered Nurse Family Medicine 05/10/25 Shannan Covington 06/08/25 06/08/25 Eva Nunez Web Weaver 04/05/24 07/06/24 [facility] 05/11/24 11/17/24 [facility] 11/14/24 01/17/25 [employer] 12/08/24 [facility] 05/18/25 documented as of this encounter
--- OUTSIDE RECORDS SUMMARY | 2025-10-18 15:15 | XMS_ITS | Encounter Summary ---
Author Organization [employer] Address [address] [place] [address] 7t [place] [address] Care Team Providers Care Retirement Officer Name Role Phone Umm Colye MD Primary Care Provider + West Meier RN Unavailable [phone] West Meier RN Unavailable [phone] Shannan Covington Unavailable Reason for Visit * Reason Comments Med Refill Encounter Details Date Type Department Care Team (Late st Contact Info) Description 08/01/2023 Refill [facility] [address] [place], [place] [phone] Umm Coley MD [address] [place], [place] [phone] Social History Tobacco Use Types Packs/Day Years [...] Description 01/16/2026 1:00 PM EDT Office Visit [facility] OPT[facility] [address] [place], [place] [phone] Uyen Patterson, OD [address] [place], [place] [phone] documented as of this encounter Visit Diagnoses Not on filedocumented in this encounter Additional Health Concerns Assessment Noted Time PHQ-9 Depression Total Score: 12 023 1:58 PM EDT documented as of this encounter Care Teams Retirement Officer Relationship Specialty Start Date End Date Umm Coley MD [address] [place], [place] [phone] PCP - General Family Medicine 10/31/16 West Meier, RN [address] [place] [address] Seam Taper MachineHealth Safety Manager 01/12/25 04/25/25 West Meier, RN [address] [place] [address] Registered Nurse Family Medicine 05/10/25 Shannan Covington 06/08/25 06/08/25 Eva Nunez Seam Taper Machine 04/05/24 07/06/24 [facility] 05/11/24 11/17/24 [facility] 11/14/24 01/17/25 [employer] 12/08/24 [facility] 05/18/25 documented as of this encounter
--- OUTSIDE RECORDS SUMMARY | 2025-10-18 15:15 | XMS_ITS | Encounter Summary ---
Author Organization [employer] Address [address] [place] [address] [address] [place] [address] Care Team Providers Care Can Cutter Name Role Phone Umm Coley MD Primary Care Provider + West Meier RN Unavailable [phone] West Meier RN Unavailable [phone] Shannan Covington Unavailable Reason for Visit * Reason Onset Date Comments pre med prior to dental treatment 08/23/2024 Encounter Details Date Type Department Care Team ([facility] st Contact Info) Description 08/23/2024 Telephone [facility] ADULT DENTAL [address] [place], [place] [phone] Johnny Gonzalez DMD [address] [place], [place] [phone] pre med prior to dental treatment Social [...] I also spoke with Nina in the restaurant front manager with a run through of what was happening with the patient and she stated she would also send something to provider for clarificationDR documented in this encounter Plan of Treatment Upcoming Encounters Date Type Department Care Team (Late st Contact Info) Description 01/16/2026 1:00 PM EDT Office Visit [facility] OPTOMETRY [address] [place] [address] Uyen Patterson, OD [address] [place] [address] documented as of this encounter Visit Diagnoses Not on filedocumented in this encounter Additional Health Concerns Assessment Noted Time PHQ-9 Depression Total Score: 10 024 9:17 AM EDT documented as of this encounter Care Teams Can Cutter Relationship Specialty Start Date End Date Umm Coley MD [address] [place] [address] PCP - General Family Medicine 10/31/16 West Meier, BEBA [address] [place] [address] Road Grader OperatorOffice Machine Service Supervisor 01/12/25 04/25/25 West Meier, BEBA [address] [place] [address] Registered Nurse Family Medicine 05/10/25 Shannan Covington 06/08/25 06/08/25 [facility] 05/11/24 11/17/24 [facility] 11/14/24 01/17/25 [facility] 12/08/24 [facility] 05/18/25 documented as of this encounter
--- OUTSIDE RECORDS SUMMARY | 2025-10-18 15:15 | XMS_ITS | Encounter Summary ---
Author Organization [employer] Address [address] [place] [address] 7t [place] [address] Care Team Providers Care Digital Recruiter Name Role Phone Umm Coley MD Primary Care Provider + West Meier RN Unavailable [phone] West Meier RN Unavailable [phone] Shannan Covington Unavailable Encounter Details Date Type Department Care Team (Latest Contact Info) Description 11/23/2020 Abstract [facility] CONVERSIONS Dental, Provider, DDS Social History Tobacco [...] 1:00 PM EDT Office Visit [facility] OPTOMETRY [address] [place], [place] [phone] Leonardo, Uyen, OD [address] [place], [place] [phone] documented as of this encounter Visit Diagnoses Not on filedocumented in this encounter Care Teams Digital Recruiter Relationship Specialty Start Date End Date Umm Coley MD [address] [place], [place] [phone] PCP - General Family Medicine 10/31/16 West Meier, RN [address] [place] [address] Preflight InspectorPulp Maker 01/12/25 04/25/25 West Meier, RN [address] [place] [facility] [place] [address] Registered Nurse Family Medicine 05/10/25 Shannan Covington 06/08/25 06/08/25 Eva Nunez Preflight Inspector 04/05/24 07/06/24 [facility] 05/11/24 11/17/24 [facility] 11/14/24 01/17/25 [facility] 12/08/24 [facility] 05/18/25 documented as of this encounter
--- OUTSIDE RECORDS SUMMARY | 2025-10-18 15:15 | XMS_ITS | Encounter Summary ---
Author Organization [employer] Address [address] [place] [address] 7[address] [place] [address] Care Team Providers Care General Matcher Name Role Phone Umm Coley MD Primary Care Provider + West Meier RN Unavailable [phone] West Meier RN Unavailable [phone] Shannan Covington Unavailable Reason for Visit * Reason Comments Med Refill Encounter Details Date Type Department Care Team (Late st Contact Info) Description 05/21/2023 Refill [facility] MEDICINE [address] [place], [place] [phone] Umm Coley MD [address] [place], [place] [phone] Arthritis of knee Social History Tobacco Use [...] Description 01/16/2026 1:00 PM EDT Office Visit [facility] OPTOMETRY [address] [place] [address] Leonardo, Uyen, OD [address] [place] [address] documented as of this encounter Visit Diagnoses Diagnosis Arthritis of knee Unspecified arthropathy, lower leg documented in this encounter Additional Health Concerns Assessment Noted Time PHQ-9 Depression Total Score: 12 023 1:58 PM EDT documented as of this encounter Care Teams General Matcher Relationship Specialty Start Date End Date Umm Coley MD [address] [place] [address] PCP - General Family Medicine 10/31/16 West Meier RN [address] [place] [address] Collections AssistantCross Tie Maker 01/12/25 04/25/25 West Meier RN [address] [place] [address] Registered Nurse Family Medicine 05/10/25 Shannan Covington 06/08/25 06/08/25 Eva Nunez Collections Assistant 04/05/24 07/06/24 [facility] 05/11/24 11/17/24 [facility] 11/14/24 01/17/25 [employer] 12/08/24 [facility] 05/18/25 documented as of this encounter
--- OUTSIDE RECORDS SUMMARY | 2025-10-18 15:15 | XMS_ITS | Encounter Summary ---
Author Organization [employer] Address [address] [place] [address] [address] [place] [address] Care Team Providers Care Field Contact Person Name Role Phone Umm Coley MD Primary Care Provider + West Meier RN Unavailable [phone] West Meier RN Unavailable [phone] Shannan Covington Unavailable Reason for Visit * Reason Comments Med Change Request Encounter Details Date Type Department Care Team (Late st Contact Info) Description 03/20/2023 Refill [facility] ADULT DENTAL [address] [place] [address] Johnny Gonzalez DMD [address] [place], [place] [phone] Social History Tobacco Use Types Packs/Day Years [...] Description 01/16/2026 1:00 PM EDT Office Visit [facility] OPTOMETRY [address] [place], [place] [phone] Uyen Patterson, OD [address] [place] [address] documented as of this encounter Visit Diagnoses Not on filedocumented in this encounter Care Teams Field Contact Person Relationship Specialty Start Date End Date Umm Coley MD [address] [place] [address] PCP - General Family Medicine 10/31/16 West Meier RN [address] [place] [address] Business Integration AnalystScrap Drop Crane Operator 01/12/25 04/25/25 West Meier RN [address] [place] [address] Registered Nurse Family Medicine 05/10/25 Shannan Covington 06/08/25 06/08/25 Eva Nunez Business Integration Analyst 04/05/24 07/06/24 [facility] 05/11/24 11/17/24 [facility] 11/14/24 01/17/25 [employer] 12/08/24 [facility] 05/18/25 documented as of this encounter
--- OUTSIDE RECORDS SUMMARY | 2025-10-18 15:15 | XMS_ITS | Encounter Summary ---
Author Organization [employer] Address [address] [place] [address] [address] [place] [address] Care Team Providers Care Size Worker Name Role Phone Umm Coley MD Primary Care Provider + West Meier RN Unavailable [phone] West Meier RN Unavailable [phone] Shannan Covington Unavailable Encounter Details Date Type Department Care Team (Late st Contact Info) Description 03/05/2023 Orders Only [facility] MEDICINE [address] [place], [place] [phone] Umm Coley MD [address] [place], [place] [phone] Social History Tobacco Use Types Packs/Day Years [...] 1:00 PM EDT Office Visit [facility] OPTOMETRY [address] [place] [address] Leonardo, Uyen, OD [address] [place] [address] documented as of this encounter Visit Diagnoses Not on filedocumented in this encounter Care Teams Size Worker Relationship Specialty Start Date End Date Umm Coley MD [address] [place] [address] PCP - General Family Medicine 10/31/16 West Meier, BEBA [address] [place] [address] Caul DresserBlood Bank Technician 01/12/25 04/25/25 West Meier RN [address] [place] [address] Registered Nurse Family Medicine 05/10/25 Shannan Covington 06/08/25 06/08/25 Eva Nunez Caul Dresser 04/05/24 07/06/24 [facility] 05/11/24 11/17/24 [facility] 11/14/24 01/17/25 [employer] 12/08/24 [facility] 05/18/25 documented as of this encounter
--- OUTSIDE RECORDS SUMMARY | 2025-10-18 15:15 | XMS_ITS | Encounter Summary ---
Author Organization [employer] Address [address] [place] [address] [address] [place] [address] Care Team Providers Care After School Caregiver Name Role Phone Umm Coley MD Primary Care Provider + West Meire RN Unavailable [phone] West Meier RN Unavailable [phone] Shannan Covington Unavailable Reason for Visit * Reason Comments Med Change Request Encounter Details Date Type Department Care Team (Late st Contact Info) Description 03/20/2023 Refill [facility] ADULT DENTAL [address] [place] [address] Johnny Gonzalez DMD [address] [place], [place] [phone] Social History Tobacco Use Types Packs/Day Years [...] 01/16/2026 1:00 PM EDT Office Visit [facility] OPTOMETRY [address] [place], [place] [phone] Uyen Patterson, OD [address] [place] [address] documented as of this encounter Visit Diagnoses Not on filedocumented in this encounter Care Teams After School Caregiver Relationship Specialty Start Date End Date Umm Coley MD [address] [place] [address] PCP - General Family Medicine 10/31/16 West Meier RN [address] [place] [address] Library Services DeanGrinder Needle Tip 01/12/25 04/25/25 West Meier RN [address] [place] [address] Registered Nurse Family Medicine 05/10/25 Shannan Covington 06/08/25 06/08/25 Eva Nunez Library Services Dean 04/05/24 07/06/24 [facility] 05/11/24 11/17/24 [facility] 11/14/24 01/17/25 [employer] 12/08/24 [facility] 05/18/25 documented as of this encounter
== END 2025-10-18 11:56 | disposition home or self-care (01) ==
LOC: HO.HGS 11:35
PROVIDERS: PCP Internal Medicine; Visit Provider Surgery
DX: D17.9 Benign lipomatous neoplasm, unspecified (principal)
CPT/HCPCS: 99203

== ENCOUNTER 2025-10-18 12:39 | Outpatient (REF) | payer MEDICAID, SELFPAY ==
--- NOTE | ~2025-10-18 | MM_ITS ---
EXAMINATION: DXA BONE DENSITY AXIAL HISTORY: M81.0 - Age-related osteoporosis without current pathological fracture TECHNIQUE: [facility] Dual energy absorptiometry (DEXA) of the lumbar spine, total left hip, and femoral neck was performed. COMPARISON: There are no prior studies for comparison. FINDINGS: The bone mineral density of the lumbar spine is 1.126 g/cm2, corresponding to a T-score of -0.4, and a Z-score of 1.5. This is indicative of normal bone mineral density. The bone mineral density of the left total hip is 0.797 g/cm2, corresponding to a T-score of -1.7, and a Z-score of -0.2. This is indicative of osteopenia. The bone mineral density of the left femoral neck is 0.721 g/cm2, corresponding to a T-score of -2.3, and a Z-score of -0.6. This is indicative of osteopenia. FRACTURE RISK: The FRAX index suggests a risk of major osteoporotic fracture of 5.6%, and of hip fracture 1.0%. MM/XR DEXA axial skeleton IMPRESSION: Based on bone mineral density, and according to World Health Organization (WHO) criteria, the diagnosis is consistent with osteopenia. Statistically, 68% of repeat scans fall within 1 SD (+/- 0.010 g/cm2 for AP spine L1-L4) and 1 SD (+/- 0.012 g/cm2 for femur total) FRAX is a trademark of the [employer]'s [employer] [employer] Metabolic Bone Disease, a World Health Organization (WHO) Collaborating Center. Electronically signed by: Beka Packer MD 10/18/2025 01:36 PM [facility]
== END 2025-10-18 12:40 | disposition home or self-care (01) ==
LOC: HO.MAMMO 12:39
PROVIDERS: Visit Provider Internal Medicine Rheumatology
DX: M81.0 Age-related osteoporosis without current pathological fracture (principal); D17.9 Benign lipomatous neoplasm, unspecified
CPT/HCPCS: 77080

== ENCOUNTER → 2025-10-18 13:00 | Outpatient (BNV) | payer MEDICAID, SELFPAY | PROVIDERS: Visit Provider Radiology Diagnostic Radiology | DX: E28.39 Other primary ovarian failure (principal) | CPT/HCPCS: 77080 ==